=== PATIENT | male | born 1940 | race Caucasian/White ===

== ENCOUNTER 2024-01-16 08:49 | Inpatient (IN) | payer MEDICARE, OTHER, SELFPAY ==
[2024-01-16] VITALS (37 sets, daily range): BP systolic 101–145; BP diastolic 34–74; PULSE 72–104; RESP 12–35; TEMP 36–37; O2SAT 80–96
--- NOTE | 2024-01-16 08:30 | RT.EKG_ITS ---
APPROVED REPORT Exam: Resting ECG Reason for Exam: sob Patient Location: E HR:107 bpm ECG Measurements Heart Rate 107 AXIS MO 120 P 73 QRSd 92 QRS -86 QT 355 T 61 QTc 475 Conclusion Sinus tachycardia, rate 107 PACs/PVCs Slightly peaked T-waves V3-V5 No STEMI
--- NOTE | 2024-01-16 08:45 | DI.RAD_ITS ---
Exam(s) XR PORTABLE CHEST AP EXAM: XR PORTABLE CHEST AP CLINICAL HISTORY: SOB. TECHNIQUE: 2D digital imaging was performed. COMPARISON: No exams were available for comparison FINDINGS: Single AP portable view. There chest leads in place Heart size is normal. The mediastinum is not widened Are increased interstitial markings throughout both lung russell, more so on the right side. There is also blunting of the right costophrenic angle indicating pleural fluid or pleural thickening in the right lung base. IMPRESSION: Bilateral interstitial infiltrates more prominent on the right side involving all lobes. Small right pleural effusion also noted. DATA REPOSITORY: RADIATION DOSE DELIVERED:
[2024-01-16 09:12] LABS: BE (Venous) 13 mmol/L (-2-3); HCO3 (Venous) 38 mmol/L (23-28); O2 Sat (Venous) 35 %; TCO2 (Venous) 34 mmol/L (24-29); pCO2 (Venous) 60 mmHg (41-51); pH (Venous) 7.41 (7.31-7.41); pO2 (Venous) 22 mmHg
[2024-01-16 09:14] LABS: Lactate 2.1 mmol/L (0.6-1.4)
[2024-01-16 09:16] LABS: Abs Immature Grans 0.22 10^3/uL (0.0-0.06); Absolute Basophil Count 0.08 10^3/uL (0.0-0.2); Absolute Neutrophil Count 23.02 10^3/uL (1.2-6.7); Basophils % 0.3 %; Eosinophils % 1.8 %; HCT 45.1 % (40.0-50.0); HGB 14.7 g/dL (13.5-17.5); Immature Grans % 0.9 %; Lymphocytes % 3.1 %; MCHC 32.6 % (32.0-36.0); MCV 98 fL (80-95); MPV 10.3 fL (8.0-11.0); Monocytes % 4.8 %; Neutrophils % 89.1 %; Platelet Count 190 10^3/uL (130-400); RBC 4.59 10^6/uL (4.36-5.78); RDW 14.2 % (11.8-14.1); RDW-SD 51.7 fL
[2024-01-16] MEDS: Ketorolac 15 MG/ML VIAL IVP (09:18)
[2024-01-16 09:20] LABS: Absolute Eosinophil Count 0.47 10^3/uL (0.0-0.7); Absolute Monocyte Count 1.24 10^3/uL (0.1-0.8)
[2024-01-16 09:21] LABS: WBC 25.84 10^3/uL (4.4-10.8)
[2024-01-16] MEDS: CEFEPIME 2 GM in Normal Saline 100 ML IVPB ×2 (09:32→19:16)
[2024-01-16 09:34] LABS: ALT 16 U/L (16-63); AST 24 U/L (15-37); Albumin 2.9 g/dL (3.4-5.0); Alkaline Phosphatase 64 U/L (46-116); BUN 21 mg/dL (7-18); Bilirubin, Total 1.56 mg/dL (0.2-1.0); CREATININE 1.1 mg/dL (0.70-1.30); Calcium 9.4 mg/dL (8.5-10.1); Chloride 102 mmol/L (98-107); Estimated GFR 65.79 (mL/min/1.73m2); Glucose 124 mg/dL (74-106); Lipase 14 U/L (16-77); Magnesium 1.9 mg/dL (1.8-2.4); Potassium 4.7 mmol/L (3.5-5.1); Sodium 141 mmol/L (136-145); Total Protein 6.8 g/dL (6.4-8.2)
[2024-01-16 09:35] LABS: Diff Comment Diff Reviewed; RBC Morphology Normal
[2024-01-16] MEDS: VANCOMYCIN/WATER (PEG) 1.25 GM/250 ML BAG IVPB (09:35)
[2024-01-16 09:41] LABS: NT-proBNP 527 pg/mL (<300); Troponin I 57 ng/L (<or=76)
--- NOTE | 2024-01-16 09:41 | W.ED.GENAD ---
Discharge Plan Disposition Patient Disposition: Admit to [facility] Condition: Stable Discharge Details Chief Complaint: SOB Clinical Impression: Acute hypoxic respiratory failure, Sepsis, Bilateral pneumonia ED Provider: Ritesh Jacobsen Home Meds and New Rx's Prescriptions: No Action amlodipine .ROUTE metoprolol tartrate .ROUTE aspirin [Adult Low Dose Aspirin] 81 mg tablet,delayed release (DR/EC) 81 mg PO DAILY docusate sodium [Col-Rite] 100 mg capsule 100 mg PO DAILY Anoro Ellipta 62.5-25 mcg/actuation blister with device 1 inh inhalation DAILY albuterol sulfate 90 mcg/actuation HFA aerosol inhaler 2 inh inhalation Q6H PRN HPI General Date/Time Provider Initiated Documentation: 01/16/24 08:55. HPI Narrative: 83 year-old male presents to ED today by EMS with a chief complaint of shortness of breath, worse than usual in the setting of chronic COPD, dysuria and urinary frequency, and cough with fatigue with onset over the past few days, - worse last night. Quality described as generalized fatigue, dysuria, no radiation to productive cough, chest pain, palpitations, syncope, endorses shortness of breath getting around his home. Severity is described as moderate to severe. Palliating factors include nothing specific attempted. Provoking factors include nothing specific. Events leading up to the incident/Associated Symptoms: Patient was discharged from [facility] on 01/01 for COPD exacerbation. Patient not anticoagulated. Related Data Home Medications ?Medication ?Instructions ?Recorded ?Confirmed albuterol sulfate 90 mcg/actuation 2 inh inhalation Q6H PRN 01/16/24 01/16/24 aerosol inhaler amlodipine .ROUTE 01/16/24 aspirin 81 mg tablet,delayed 81 mg PO DAILY 01/16/24 01/16/24 release (Adult Low Dose Aspirin) docusate sodium 100 mg capsule 100 mg PO DAILY 01/16/24 01/16/24 (Col-Rite) metoprolol tartrate .ROUTE 01/16/24 umeclidinium 62.5 mcg-vilanterol 1 inh inhalation DAILY 01/16/24 01/16/24 25 mcg/actuation powdr for inhalation (Anoro Ellipta) Allergies Allergy/AdvReac Type Severity Reaction Status Date / Time No Known Allergies Allergy Unverified 01/16/24 08:59 General Stated Complaint: SOB TOMMY: 2 Review of Systems All systems reviewed & are unremarkable except as noted in HPI and below Exam Narrative Exam Narrative: GENERAL APPEARANCE: Frail, toxic, awake and alert, atraumatic, no acute distress. SKIN: Warm, pale, dry, intact, without rashes/lesions/ulcerations. HEAD: Normocephalic, atraumatic, normal hair distribution for gender/age. EYES: Normal conjunctiva, no exudates on lids/lashes. ENT: Nares patent, no circumoral cyanosis, no facial swelling NECK: Supple, trachea midline, painless cervical ROM. LUNGS/CHEST: Lungs - poor air movement, diminished bases, rhonchorous, labored respirations, normal A/P diameter, symmetrical expansion, no chest wall deformity HEART (CV/PV): Regular rate and rhythm without murmur, no peripheral edema, no JVD. ABDOMEN: Soft, non-distended, no guarding, no suprapubic distention, no CVA tenderness bilaterally. MSK: Normal ROM, no swelling/deformity to bilateral UEs or LEs, moving all extremities without weakness, no cyanosis, spine midline without tenderness, normal curvature. NEURO: Mental Status AAOx4 - alert to person, place, time, events No facial droop, no forehead involvement. Motor: No focal weakness - strength 5/5 in bilateral UEs and LEs, proximal and distal, symmetric. Sensory: sensation intact to light touch globally. Gait NT. PSYCH: euthymic, cooperative, pleasant, appropriate speech Course Vital Signs Vital signs: Vital Signs Temperature 36.8 C 01/16/24 08:54 Pulse 102 H 01/16/24 08:54 Respiratory Rate 20 01/16/24 08:54 Blood Pressure 130/68 01/16/24 08:54 Pulse Oximetry 80 L 01/16/24 08:54 Temperature 36.8 C 01/16/24 08:54 Temperature Source Oral 01/16/24 08:54 Pulse 86 01/16/24 09:16 Pulse 97 H 01/16/24 09:20 Respiratory Rate 26 H 01/16/24 09:20 Respiratory Effort Short of Breath, Incrsd Work of Breathing 01/16/24 09:13 Respiratory Depth Shallow 01/16/24 09:13 Respiratory Pattern Tachypnea 01/16/24 09:13 Blood Pressure 101/48 L 01/16/24 09:16 Blood Pressure Mean 68 10/08/24 09:16 Blood Pressure Position Sitting 01/16/24 08:54 Pulse Oximetry 90 L 01/16/24 09:20 Oxygen Delivery Method OxyMask 01/16/24 09:14 Oxygen Flow Rate 3 01/16/24 09:14 Pain Level 0 01/16/24 08:54 Lab/Test Results Lab/Test Results: 01/16/24 09:30 Blood Blood Culture - Pending 01/16/24 09:05 Blood Blood Culture - Pending Laboratory Tests Range/Units 01/16/24 09:05 WBC (4.4-10.8) 10^3/uL 25.84 H* RBC (4.36-5.78) 10^6/uL 4.59 Hgb (13.5-17.5) g/dL 14.7 Hct (40.0-50.0) % 45.1 MCV (80-95) fL 98 H MCH (27.0-33.0) pg 32.0 MCHC (32.0-36.0) % 32.6 RDW (11.8-14.1) % 14.2 H Plt Count (130-400) 10^3/uL 190 MPV (8.0-11.0) fL 10.3 Immature Gran % % 0.9 Neutrophils % % 89.1 Lymphocytes % % 3.1 Monocytes % % 4.8 Eosinophils % % 1.8 Basophils % % 0.3 Nucleated RBC % (0.0-0.3) % 0.0 Absolute Neutrophils (1.2-6.7) 10^3/uL 23.02 H Absolute Lymphocytes (1.2-3.4) 10^3/uL 0.80 L Absolute Monocytes (0.1-0.8) 10^3/uL 1.24 H Absolute Eosinophils (0.0-0.7) 10^3/uL 0.47 Absolute Basophils (0.0-0.2) 10^3/uL 0.08 RBC Morphology Normal VBG pH (7.31-7.41) 7.41 VBG pCO2 (41-51) mmHg 60 H VBG pO2 mmHg 22 VBG HCO3 (23-28) mmol/L 38 H VBG Total CO2 (24-29) mmol/L 34 H VBG O2 Saturation % 35 VBG Base Excess (-2-3) mmol/L 13 H VBG Lactate (0.6-1.4) mmol/L 2.1 H Sodium (136-145) mmol/L 141 Potassium (3.5-5.1) mmol/L 4.7 Chloride (98-107) mmol/L 102 Carbon Dioxide (21.0-32.0) mmol/L 36.0 H Anion Gap (3-11) mmol/L 3.0 BUN (7-18) mg/dL 21 H Creatinine (0.70-1.30) mg/dL 1.1 Est GFR (CKD-EPI 2020) (mL/min/1.73m2) 65.79 Glucose (74-106) mg/dL 124 H Calcium (8.5-10.1) mg/dL 9.4 Magnesium (1.8-2.4) mg/dL 1.9 Total Bilirubin (0.2-1.0) mg/dL 1.56 H AST (15-37) U/L 24 ALT (16-63) U/L 16 Alkaline Phosphatase (46-116) U/L 64 Total Protein (6.4-8.2) g/dL 6.8 Albumin (3.4-5.0) g/dL 2.9 L Lipase (16-77) U/L 14 L Medical Decision Making This dictation utilizes [id number] dictation software and may contain unedited grammatical errors. 83 year-old male presents to ED today by EMS with a chief complaint of shortness of breath, worse than usual in the setting of chronic COPD, dysuria and urinary frequency, and cough with fatigue with onset over the past few days, - worse last night. Quality described as generalized fatigue, dysuria, no radiation to productive cough, chest pain, palpitations, syncope, endorses shortness of breath getting around his home. Severity is described as moderate to severe. Palliating factors include nothing specific attempted. Provoking factors include nothing specific. Events leading up to the incident/Associated Symptoms: Patient was discharged from [facility] on 01/01 for COPD exacerbation. Patients' medical history: COPD, history of hernia repair, hypertension, GERD, history of NSTEMI in 2017, hyperlipidemia, intermittent oxygen use at home at 2.5 L. Family and social history: Patient is a , lives alone. Pertinent exam findings / vital signs include poor air movement, diminished bases, no overt expiratory wheezing, rhonchorous at bases, benign cardiac exam, benign abdomen without suprapubic distention, no CVA tenderness to percussion bilaterally, mildly tachycardic on arrival, febrile, mildly hypoxic transition to OxyMask. Differential / pathologies of concern include COPD exacerbation, pneumonia, sepsis, UTI, acute on chronic respiratory failure. Diagnostic studies of: -CBC, CMP, lactate, procalcitonin, blood cultures, VBG, lipase, magnesium, serial troponins, BNP, D-dimer, COVID/flu/RSV PCR, urinalysis, XR chest portable. -CBC shows a white count of 25 with left shift -D-dimer age-adjusted negative -VBG shows elevated pCO2 at 60 -Lactate 2.1, procalcitonin 0.6-suspect early sepsis -CMP shows mildly elevated BUN, elevated carbon dioxide, mildly elevated bilirubin -Troponin negative, BNP mildly elevated at 527 without history of CHF -Lipase within normal limits -Magnesium 1.9 -COVID/flu/RSV PCR negative -Chest x-ray shows bilateral pneumonia -UA pending at time of admission Interventions of: -125mg IV solumedrol given by EMS en route, has received 1L IVF NS, 2gm IV cefepime, 1250mg IV vancomycin, 1gm Magnesium over 30 mins for SOB, 9mL Duoneb ED Course/Assessment/Plan: 83-year-old male presents by EMS with increased shortness of breath and increased urinary frequency with dysuria and burning sensation, has recent admitted at [facility] discharged January 01 for bilateral pneumonia in setting of COPD exacerbation, patient has increased oxygen requirement today requiring oxime mask beyond his 2.5 L nasal cannula baseline. He has chest x-ray of bilateral pneumonia, and early elevation of markers of sepsis including white blood cell count of 25 with left shift. At 1100 and I consulted with hospitalist Dr. Peace who accepted for admission for acute hypoxic respiratory failure, sepsis, bilateral pneumonia, patient has been stable throughout visit, has received IV antibiotics and is currently receiving 1 g magnesium over 30 minutes and an hour-long DuoNeb at time of admission. Disposition of Acute Hypoxic Respiratory Failure, Sepsis, Bilateral Pneumonia. Patient verbalized understanding of the plan and return to ED criteria and engaged in shared decision making. Medical Records Medical records reviewed: Yes I reviewed the patient's medical records. Imaging Data Radiologic Study: Attestation: I personally reviewed and interpreted this imaging study as follows: Imaging: X-Ray Radiologist's impression: EXAM: XR PORTABLE CHEST AP CLINICAL HISTORY: SOB. TECHNIQUE: 2D digital imaging was performed. COMPARISON: No exams were available for comparison FINDINGS: Single AP portable view. There chest leads in place Heart size is normal. The mediastinum is not widened Are increased interstitial markings throughout both lung russell, more so on the right side. There is also blunting of the right costophrenic angle indicating pleural fluid or pleural thickening in the right lung base. IMPRESSION: Bilateral interstitial infiltrates more prominent on the right side involving all lobes. Small right pleural effusion also noted. Lab Data Lab results reviewed: Yes I reviewed the patient's lab results. Labs: 01/16/24 09:30 Blood Blood Culture - Pending 01/16/24 09:05 Blood Blood Culture - Pending Laboratory Tests Range/Units 01/16/24 01/16/24 09:00 09:05 WBC (4.4-10.8) 10^3/uL 25.84 H* RBC (4.36-5.78) 10^6/uL 4.59 Hgb (13.5-17.5) g/dL 14.7 Hct (40.0-50.0) % 45.1 MCV (80-95) fL 98 H MCH (27.0-33.0) pg 32.0 MCHC (32.0-36.0) % 32.6 RDW (11.8-14.1) % 14.2 H Plt Count (130-400) 10^3/uL 190 MPV (8.0-11.0) fL 10.3 Immature Gran % % 0.9 Neutrophils % % 89.1 Lymphocytes % % 3.1 Monocytes % % 4.8 Eosinophils % % 1.8 Basophils % % 0.3 Nucleated RBC % (0.0-0.3) % 0.0 Absolute Neutrophils (1.2-6.7) 10^3/uL 23.02 H Absolute Lymphocytes (1.2-3.4) 10^3/uL 0.80 L Absolute Monocytes (0.1-0.8) 10^3/uL 1.24 H Absolute Eosinophils (0.0-0.7) 10^3/uL 0.47 Absolute Basophils (0.0-0.2) 10^3/uL 0.08 RBC Morphology Normal D-Dimer (<500) ng/mlFEU 599 H VBG pH (7.31-7.41) 7.41 VBG pCO2 (41-51) mmHg 60 H VBG pO2 mmHg 22 VBG HCO3 (23-28) mmol/L 38 H VBG Total CO2 (24-29) mmol/L 34 H VBG O2 Saturation % 35 VBG Base Excess (-2-3) mmol/L 13 H VBG Lactate (0.6-1.4) mmol/L 2.1 H Sodium (136-145) mmol/L 141 Potassium (3.5-5.1) mmol/L 4.7 Chloride (98-107) mmol/L 102 Carbon Dioxide (21.0-32.0) mmol/L 36.0 H Anion Gap (3-11) mmol/L 3.0 BUN (7-18) mg/dL 21 H Creatinine (0.70-1.30) mg/dL 1.1 Est GFR (CKD-EPI 2020) (mL/min/1.73m2) 65.79 Glucose (74-106) mg/dL 124 H Calcium (8.5-10.1) mg/dL 9.4 Magnesium (1.8-2.4) mg/dL 1.9 Total Bilirubin (0.2-1.0) mg/dL 1.56 H AST (15-37) U/L 24 ALT (16-63) U/L 16 Alkaline Phosphatase (46-116) U/L 64 Troponin I (<or=76) ng/L 57 NT-Pro-B Natriuret Pep (<300) pg/mL 527 H Total Protein (6.4-8.2) g/dL 6.8 Albumin (3.4-5.0) g/dL 2.9 L Lipase (16-77) U/L 14 L Procalcitonin ng/mL 0.6 COVID-19 Source Nasopharynx SARS-CoV-2 (PCR) (Negative) Negative Influenza Type A (PCR) (Negative) Negative Influenza Type B (PCR) (Negative) Negative RSV (PCR) (Negative) Negative Quality:SDOH Health Related Social Needs: No Data to Display PFSH All Active Problems (Updated 01/16/24 @ 11:10 by DARYN Massey) Bilateral pneumonia (Acute) Sepsis (Acute) Acute hypoxic respiratory failure (Acute) Social History Smoking/Tobacco Use Status: Former Tobacco Use Smoking risk assessment performed?: Yes Alcohol Intake: never Drug use: Never Substance use type: does not use Housing: house Do you feel safe at home: Yes Do you feel safe in your relationship?: Yes
[2024-01-16 09:50] LABS: D-Dimer 599 ng/mlFEU (<500)
[2024-01-16 09:53] LABS: Procalcitonin 0.6 ng/mL
[2024-01-16 09:56] LABS: COVID-19 PCR Negative (Negative); Influenza A PCR Negative (Negative); Influenza B PCR Negative (Negative); RSV PCR Negative (Negative)
[2024-01-16 10:00] LABS: Source Nasopharynx
[2024-01-16 10:56] LABS: Troponin I 55 ng/L (<or=76)
--- NOTE | 2024-01-16 11:08 | W.PM.HP.N ---
Date of service: 01/16/24 Time of Service: 11:08 Assessment and Plan Assessment and plan (1) Severe sepsis: Status: Acute Assessment and plan: - On admission patient meets criteria for severe sepsis with a heart rate of 102, respiratory rate in the mid 20s, white blood cell count of 25, source of infection presumed to be bilateral multifocal pneumonia with possible UTI (urinalysis pending), and a lactic acid of 2.1 -Patient was given vancomycin and cefepime in the emergency department, will continue -Will administer 1 L of normal saline and will follow-up 4-hour lactic acid -Follow-up a.m. CBC and blood cultures (2) Bilateral pneumonia: Status: Acute Assessment and plan: - Primary source of infection as noted above (3) Acute on chronic respiratory failure with hypoxemia: Status: Acute Assessment and plan: - Patient reportedly uses oxygen at home intermittently -Currently requiring 4 L nasal cannula -Wean as tolerated with goal oxygen saturation 88 to 92% given patient's history of COPD (4) COPD without exacerbation: Status: Acute Assessment and plan: - Without acute exacerbation as patient is not wheezing at this time -Worsening oxygen requirement likely secondary to pneumonia as noted above -Will continue home inhaler regimen (5) HTN (hypertension): Status: Chronic Assessment and plan: - Continue home amlodipine History of Present Illness History of Present Illness Chief Complaint: shortness of breath Narrative: 83-year-old male with past medical history of COPD who was recently hospitalized at [facility] and discharged on 01/02/2024 presents the emergency department with complaints of shortness of breath. Patient states that shortness of breath began to recur again last associated with dysuria, urinary frequency and fatigue over the last few days. States that he is intermittently on oxygen normally at about 2 L. He denies any headache, lightheadedness, dizziness, chest pain, sputum production, nausea vomiting or diarrhea. In the emergency department the patient was noted as being hypoxic requiring up to 4 L nasal cannula, tachycardic with heart rate of 102, respiratory rate of 25, blood pressure of 127/42 and afebrile. CBC showed a white count of 25.8 with remainder of CBC and CMP unremarkable, however the patient did have a lactic of 2.1. Chest x-ray was done and showed bilateral interstitial infiltrates more prominent on the right involving all lobes with a small pleural effusion on the right. While patient did complain of dysuria, UA was ordered but has not yet been obtained. While in the emergency department the patient was started on vancomycin and cefepime in the emergency room PA paged hospitalist for admission for patient with severe sepsis secondary to community-acquired pneumonia. Review of Systems All systems reviewed & are unremarkable except as noted in HPI and below PFSH All Active Problems (Updated 01/16/24 @ 11:12 by Landry Peace MD) HTN (hypertension) (Chronic) COPD without exacerbation (Acute) Acute on chronic respiratory failure with hypoxemia (Acute) Severe sepsis (Acute) Bilateral pneumonia (Acute) Sepsis (Acute) Acute hypoxic respiratory failure (Acute) Social History Smoking/Tobacco Use Status: Former Tobacco Use Smoking risk assessment performed?: Yes Alcohol Intake: never Drug use: Never Substance use type: does not use Housing: house Do you feel safe at home: Yes Do you feel safe in your relationship?: Yes Meds Allergies and Home Medications Allergies Allergy/AdvReac Type Severity Reaction Status Date / Time No Known Allergies Allergy Unverified 01/16/24 08:59 Home Medications ?Medication ?Instructions ?Recorded ?Confirmed ?Type albuterol sulfate 90 mcg/actuation 2 inh inhalation Q6H PRN 01/16/24 01/16/24 History aerosol inhaler amlodipine .ROUTE 01/16/24 History aspirin 81 mg tablet,delayed 81 mg PO DAILY 01/16/24 01/16/24 History release (Adult Low Dose Aspirin) docusate sodium 100 mg capsule 100 mg PO DAILY 01/16/24 01/16/24 History (Col-Rite) metoprolol tartrate .ROUTE 01/16/24 History umeclidinium 62.5 mcg-vilanterol 1 inh inhalation DAILY 01/16/24 01/16/24 History 25 mcg/actuation powdr for inhalation (Anoro Ellipta) Exam Narrative Exam Narrative: well appearing older gentleman laying in bed in no acute distress, AOx4, 3L oxymask in place, heart RRR, lungs with diminished breath sounds in RLL, otherwise without wheezing, abdomen soft, non-tender, non-distended Results Labs 01/16/24 09:05 01/16/24 09:05 Labs: Laboratory Results - last 24 hr 01/16/24 01/16/24 01/16/24 09:00 09:05 10:25 WBC 25.84 H* RBC 4.59 Hgb 14.7 Hct 45.1 MCV 98 H MCH 32.0 MCHC 32.6 RDW 14.2 H Plt Count 190 MPV 10.3 Immature Gran % 0.9 Neutrophils % 89.1 Lymphocytes % 3.1 Monocytes % 4.8 Eosinophils % 1.8 Basophils % 0.3 Nucleated RBC % 0.0 Absolute Neutrophils 23.02 H Absolute Lymphocytes 0.80 L Absolute Monocytes 1.24 H Absolute Eosinophils 0.47 Absolute Basophils 0.08 RBC Morphology Normal D-Dimer 599 H VBG pH 7.41 VBG pCO2 60 H VBG pO2 22 VBG HCO3 38 H VBG Total CO2 34 H VBG O2 Saturation 35 VBG Base Excess 13 H VBG Lactate 2.1 H Sodium 141 Potassium 4.7 Chloride 102 Carbon Dioxide 36.0 H Anion Gap 3.0 BUN 21 H Creatinine 1.1 Est GFR (CKD-EPI 2020) 65.79 Glucose 124 H Calcium 9.4 Magnesium 1.9 Total Bilirubin 1.56 H AST 24 ALT 16 Alkaline Phosphatase 64 Troponin I 57 55 NT-Pro-B Natriuret Pep 527 H Total Protein 6.8 Albumin 2.9 L Lipase 14 L Procalcitonin 0.6 COVID-19 Source Nasopharynx SARS-CoV-2 (PCR) Negative Influenza Type A (PCR) Negative Influenza Type B (PCR) Negative RSV (PCR) Negative Last Vital Signs Temp 98.2 F 01/16/24 08:54 Pulse 81 01/16/24 09:39 Resp 25 H 01/16/24 09:40 BP 127/42 L 01/16/24 09:39 Pulse Ox 91 L 01/16/24 09:40 Time Spent Time spent with Patient: >75 minutes Time was spent: preparing to see the patient(eg.review tests), obtaining and/or reviewing separately otained hiistory, ordering medications,tests, procedures, referring, communicating with other health caregivers homecare, indepentently interpreting results, counseling the patient and care coordination
[2024-01-16] MEDS: MAGNESIUM SULFATE 1 GM/100 ML BAG IV_INF (12:18)
--- NOTE | 2024-01-16 13:10 | NUR.NOTE ---
Discharge summary and EKG's received from [facility] faxed to Med/Surg and sent to Medical Records to be scanned into patient chart. Nursing Note:
--- NOTE | 2024-01-16 13:15 | W.PC.ACHO ---
Registration Status: Primary Language: Preferred Language: ED Information & Data Chief Complaint SOB 01/16/24 09:41 Other Complaint Fever 01/16/24 08:54 Triage Note recent admission @ weeks 01/16/24 08:54 hospital for SOB. fever last night, increased sob w/ exertion. Urinary sx. Wears 2L/NC @ baseline Most Recent Vital Signs Temperature 37 C 01/16/24 12:07 Temperature Source Skin 01/16/24 12:00 Pulse 86 01/16/24 12:07 Pulse Rhythm Regular 01/16/24 12:07 Pulse 73 01/16/24 11:40 Respiratory Rate 17 01/16/24 12:07 Respiratory Effort Non-Labored 01/16/24 12:07 Respiratory Depth Normal 01/16/24 12:07 Respiratory Pattern Normal 01/16/24 12:07 Blood Pressure 145/70 H 01/16/24 12:07 Blood Pressure Mean 81 01/16/24 11:31 Blood Pressure Position Sitting 01/16/24 08:54 Pulse Oximetry 89 L 01/16/24 12:07 Oxygen Delivery Method OxyMask 01/16/24 12:07 Oxygen Flow Rate 3 01/16/24 12:07 Pain Level 0 01/16/24 12:07 Allergies No Known Allergies Allergy (Unverified 01/16/24 08:59) Precautions Isolation PUI 01/16/24 09:09 IV IV Catheter Type [Left Saline Lock Antecubital] IV Catheter Gauge [Left 18 Antecubital] Diet Orders Category Date Time Status Regular/Normal [DIET] Nutrition 01/16/24 Lunch Active Diagnostics 01/16/24 01/16/24 01/16/24 Range/Units 11:59 10:25 09:05 WBC 25.84 H* (4.4-10.8) 10^3/uL RBC 4.59 (4.36-5.78) 10^6/uL Hgb 14.7 (13.5-17.5) g/dL Hct 45.1 (40.0-50.0) % MCV 98 H (80-95) fL MCH 32.0 (27.0-33.0) pg MCHC 32.6 (32.0-36.0) % RDW 14.2 H (11.8-14.1) % Plt Count 190 (130-400) 10^3/uL MPV 10.3 (8.0-11.0) fL Immature Gran % 0.9 % Neutrophils % 89.1 % Lymphocytes % 3.1 % Monocytes % 4.8 % Eosinophils % 1.8 % Basophils % 0.3 % Nucleated RBC % 0.0 (0.0-0.3) % Absolute Neutrophils 23.02 H (1.2-6.7) 10^3/uL Absolute Lymphocytes 0.80 L (1.2-3.4) 10^3/uL Absolute Monocytes 1.24 H (0.1-0.8) 10^3/uL Absolute Eosinophils 0.47 (0.0-0.7) 10^3/uL Absolute Basophils 0.08 (0.0-0.2) 10^3/uL RBC Morphology Normal D-Dimer 599 H (<500) ng/mlFEU VBG pH 7.41 (7.31-7.41) VBG pCO2 60 H (41-51) mmHg VBG pO2 22 mmHg VBG HCO3 38 H (23-28) mmol/L VBG Total CO2 34 H (24-29) mmol/L VBG O2 Saturation 35 % VBG Base Excess 13 H (-2-3) mmol/L VBG Lactate 2.1 H (0.6-1.4) mmol/L Sodium 141 (136-145) mmol/L Potassium 4.7 (3.5-5.1) mmol/L Chloride 102 (98-107) mmol/L Carbon Dioxide 36.0 H (21.0-32.0) mmol/L Anion Gap 3.0 (3-11) mmol/L BUN 21 H (7-18) mg/dL Creatinine 1.1 (0.70-1.30) mg/dL Est GFR (CKD-EPI 2020) 65.79 (mL/min/1.73m2) Glucose 124 H (74-106) mg/dL Calcium 9.4 (8.5-10.1) mg/dL Magnesium 1.9 (1.8-2.4) mg/dL Total Bilirubin 1.56 H (0.2-1.0) mg/dL AST 24 (15-37) U/L ALT 16 (16-63) U/L Alkaline Phosphatase 64 (46-116) U/L Troponin I Pending 55 57 (<or=76) ng/L NT-Pro-B Natriuret Pep 527 H (<300) pg/mL Total Protein 6.8 (6.4-8.2) g/dL Albumin 2.9 L (3.4-5.0) g/dL Lipase 14 L (16-77) U/L Procalcitonin 0.6 ng/mL COVID-19 Source SARS-CoV-2 (PCR) (Negative) Influenza Type A (PCR) (Negative) Influenza Type B (PCR) (Negative) RSV (PCR) (Negative) 01/16/24 Range/Units 09:00 WBC (4.4-10.8) 10^3/uL RBC (4.36-5.78) 10^6/uL Hgb (13.5-17.5) g/dL Hct (40.0-50.0) % MCV (80-95) fL MCH (27.0-33.0) pg MCHC (32.0-36.0) % RDW (11.8-14.1) % Plt Count (130-400) 10^3/uL MPV (8.0-11.0) fL Immature Gran % % Neutrophils % % Lymphocytes % % Monocytes % % Eosinophils % % Basophils % % Nucleated RBC % (0.0-0.3) % Absolute Neutrophils (1.2-6.7) 10^3/uL Absolute Lymphocytes (1.2-3.4) 10^3/uL Absolute Monocytes (0.1-0.8) 10^3/uL Absolute Eosinophils (0.0-0.7) 10^3/uL Absolute Basophils (0.0-0.2) 10^3/uL RBC Morphology D-Dimer (<500) ng/mlFEU VBG pH (7.31-7.41) VBG pCO2 (41-51) mmHg VBG pO2 mmHg VBG HCO3 (23-28) mmol/L VBG Total CO2 (24-29) mmol/L VBG O2 Saturation % VBG Base Excess (-2-3) mmol/L VBG Lactate (0.6-1.4) mmol/L Sodium (136-145) mmol/L Potassium (3.5-5.1) mmol/L Chloride (98-107) mmol/L Carbon Dioxide (21.0-32.0) mmol/L Anion Gap (3-11) mmol/L BUN (7-18) mg/dL Creatinine (0.70-1.30) mg/dL Est GFR (CKD-EPI 2020) (mL/min/1.73m2) Glucose (74-106) mg/dL Calcium (8.5-10.1) mg/dL Magnesium (1.8-2.4) mg/dL Total Bilirubin (0.2-1.0) mg/dL AST (15-37) U/L ALT (16-63) U/L Alkaline Phosphatase (46-116) U/L Troponin I (<or=76) ng/L NT-Pro-B Natriuret Pep (<300) pg/mL Total Protein (6.4-8.2) g/dL Albumin (3.4-5.0) g/dL Lipase (16-77) U/L Procalcitonin ng/mL COVID-19 Source Nasopharynx SARS-CoV-2 (PCR) Negative (Negative) Influenza Type A (PCR) Negative (Negative) Influenza Type B (PCR) Negative (Negative) RSV (PCR) Negative (Negative) 01/16/24 09:30 Blood Culture - Pending Blood 01/16/24 09:05 Blood Culture - Pending Blood Intake and Output - 24 Hour Total 01/16/24 08:42 thru 01/16/24 11:32 Intake Total 425 Balance 425 Weight 58 kg Intake: IV 425 Falls Risk Assessment History of Falls No History 01/16/24 12:07 Contributing Factors Impairments 01/16/24 12:07 Ambulatory Aids Independent 01/16/24 12:07 Tubes/Lines W/no contributing factors 01/16/24 12:07 Gait Evaluation W/any additional score 01/16/24 12:07 Cognition No cognitive impairment 01/16/24 09:09 Fall Total Score 33 01/16/24 12:07 Level of Risk Moderate Risk 01/16/24 12:07 Problems HTN (hypertension) (Chronic) COPD without exacerbation (Acute) Acute on chronic respiratory failure with hypoxemia (Acute) Severe sepsis (Acute) Bilateral pneumonia (Acute) Notes 01/16/24 13:10 Nursing Notes by Nicole Pascual Discharge summary and EKG's received from [facility] faxed to Med/Surg and sent to Medical Records to be scanned into patient chart. Nursing Note: Initialized on 01/16/24 13:10 - END OF NOTE v v v v v v v v v Sending and/or Receiving Nurses: Please use comment section below to note any information pertinent to the patient hand-off not included above. Information / Comments: pt arrives via stretcher to rm [id number] Report received from: Kacie Lemos RN
[2024-01-16 14:29] LABS: Troponin I 43 ng/L (<or=76)
[2024-01-16] MEDS: Normal Saline Flush 10 ML SYR IVP (19:15)
[2024-01-16 19:19] LABS: Bilirubin Negative (Negative); Blood Negative (Negative); Clarity Clear (Clear); Glucose Negative (Negative); Ketones 15 mg/dL (Negative); Leukocyte Esterase Negative (Negative); Nitrite Negative (Negative); Specific Gravity 1.025 (1.005-1.025); Urobilinogen 0.2 mg/dL (Up to 0.2); pH 5.5 (5-8)
[2024-01-17] VITALS (8 sets, daily range): BP systolic 105–139; BP diastolic 60–72; PULSE 86–103; RESP 14–20; TEMP 36.2–37; O2SAT 88–91
[2024-01-17 06:21] LABS: HCT 39.2 % (40.0-50.0); HGB 13.3 g/dL (13.5-17.5); MCH 32.1 pg (27.0-33.0); MCHC 33.9 % (32.0-36.0); MCV 95 fL (80-95); MPV 10.9 fL (8.0-11.0); Platelet Count 178 10^3/uL (130-400); RBC 4.14 10^6/uL (4.36-5.78); RDW 14.1 % (11.8-14.1); WBC 15.73 10^3/uL (4.4-10.8)
[2024-01-17 06:36] LABS: Anion Gap 6.2 mmol/L (3-11); BUN 29 mg/dL (7-18); CO2 33.8 mmol/L (21.0-32.0); Calcium 8.9 mg/dL (8.5-10.1); Chloride 103 mmol/L (98-107); Estimated GFR 73.76 (mL/min/1.73m2); Glucose 143 mg/dL (74-106); Magnesium 2.3 mg/dL (1.8-2.4); Potassium 4.2 mmol/L (3.5-5.1); Sodium 143 mmol/L (136-145)
[2024-01-17 06:40] LABS: Vancomycin, Random 7.1 ug/mL
[2024-01-17] MEDS: CEFEPIME 2 GM in Normal Saline 100 ML IVPB ×2 (08:41→19:48)
[2024-01-17] MEDS: Aspirin E.C. 81 MG TABEC PO (08:41)
[2024-01-17] MEDS: Enoxaparin 40 MG/0.4 ML SYR SC (08:41)
[2024-01-17] MEDS: Normal Saline Flush 10 ML SYR IVP ×4 (08:46→20:42)
[2024-01-17] MEDS: Tiotropium/Olodaterol 10 PUFF INHALER 2 PUFF IH (08:57)
--- NOTE | 2024-01-17 09:10 | INITIAL_ITS ---
Date of service: 01/17/24 Time of Service: 09:10 Care Management Initial Assmt Initial Assessment Reason for Hospitalization: Bleeding Duodenal Ulcer Functional Status/Living Situation Patient Presentation: Bi was ambulating in his room when CM met with him. He had just finished talking with the Surgeon and has no concerns or further questions at this time. CM provided pt with a brochure for [facility] since he may be interested in MOW in the near future. CM provided patient with a crossword puzzle book. Town of Residence: [place] Resides with: Spouse (Significant other Cinda Rangel) Significant Other/Family: Local Natural Supports: Daughter and 2 sons live in [place] Employment Status: Retired (worked at a [employer]) Instrumental Activities of Daily Living (ADLs): Independent Medications Medication Management: No Issues/Barriers identified Physical Functioning/Mobility Assistive Device: Has a cane and walker at home, does not use very often Home O2 through [facility] services Advance Directives Advance Directives: Do you have an Advance Directive: AD On File at [facility]: N 01/16/24 11:51 Date Asked 01/16/24 01/16/24 11:51 AD Date Reviewed COLST On File at [facility] COLST Date Scanned Code Status Resuscitation Status Full Code Portal Pt does not currently have a portal and education provided: Yes Insurance Coverage/Financial Issues Insurance: [employer] Health Plans of [place] Medicare Part A & B [facility] Supplemental Financial Issues: None identified Care Team Visit Care Team Role Provider Type Unknown Unknown Primary Care Provider STAFF PHYSICIAN DARYN Massey Emergency Provider PH[employer] GARDENING MANAGER Landry Peace MD Admit Provider [facility] STAFF PHYSICIAN Attending Provider Discharge Potential Discharge Needs: PCP F/U Appt and Surgical F/U Appt Anticipated Barriers to Discharge: Medical Status Patient/Family Education Needs: Review discharge instructions, discuss Ask Me Three Transportation: Private vehicle Plan: Anticipate, Bi will discharge home via private vehicle with s/o Cinda with resumption of [facility] RN services. Pt will follow up with community providers and his discharge plan of care as instructed. CM will follow. PFSH All Active Problems (Updated 01/16/24 @ 11:12 by Landry Peace MD) HTN (hypertension) (Chronic) COPD without exacerbation (Acute) Acute on chronic respiratory failure with hypoxemia (Acute) Severe sepsis (Acute) Bilateral pneumonia (Acute) Sepsis (Acute) Acute hypoxic respiratory failure (Acute) Social History Smoking/Tobacco Use Status: Former Tobacco Use Smoking risk assessment performed?: Yes Alcohol Intake: never Drug use: Never Substance use type: does not use Housing: house Do you feel safe at home: Yes Do you feel safe in your relationship?: Yes SDOH(Care Management) Screening Will the Patient Participate in the Screening?: Yes Do you worry about having a steady place to live?: no Problems where you live: no known problems In the past 12 months, have you had to go without electric, gas, oil or water in your home?: no Have you or anyone in your house had to go without enough food to eat?: no Has lack of transportation kept you from medical appointments or from doing things needed for daily living?: no Has anyone in your support network made you feel unsafe for any reason?: no
[2024-01-17] MEDS: VANCOMYCIN/WATER (PEG) 1.25 GM/250 ML BAG IVPB (09:28)
--- NOTE | 2024-01-17 09:48 | RESPIRATORY ---
Spoke with Rufina at [facility] about home O2 order and she confirmed patient's current order is for 2L day and night.
--- NOTE | 2024-01-17 11:47 | PGE_ITS ---
Date of Service Date of service: 01/17/24 Time of Service: 11:48 Assessment and Plan Assessment and plan (1) Severe sepsis: Status: Acute Assessment and plan: - On admission patient meets criteria for severe sepsis with a heart rate of 102, respiratory rate in the mid 20s, white blood cell count of 25, source of infection presumed to be bilateral multifocal pneumonia with possible UTI (urinalysis pending), and a lactic acid of 2.1 -Patient was given vancomycin and cefepime in the emergency department, will continue -Follow-up a.m. CBC and blood cultures (2) Bilateral pneumonia: Status: Acute Assessment and plan: - Primary source of infection as noted above (3) Acute on chronic respiratory failure with hypoxemia: Status: Acute Assessment and plan: - Patient reportedly uses oxygen at home intermittently, though is documented as requiring 2-2.5L -required 4 L nasal cannula on admission, now down to 3L NC -Wean as tolerated with goal oxygen saturation 88 to 92% given patient's history of COPD (4) COPD without exacerbation: Status: Acute Assessment and plan: - Without acute exacerbation as patient is not wheezing at this time -Worsening oxygen requirement likely secondary to pneumonia as noted above -Will continue home inhaler regimen (5) HTN (hypertension): Status: Chronic Assessment and plan: - Continue home amlodipine Subjective Subjective Interval history since last seen: Patient states that he is feeling better as compared to admission. Exam Narrative Exam Narrative: well appearing older gentleman laying in bed in no acute distress, AOx4, 3L oxymask in place, heart RRR, lungs with diminished breath sounds in RLL, otherwise without wheezing, abdomen soft, non-tender, non-distended Objective Last Vital Signs Temp 97.9 F 01/17/24 11:07 Pulse 103 H 01/17/24 11:07 Resp 20 01/17/24 11:07 BP 134/63 01/17/24 11:07 Pulse Ox 90 L 01/17/24 11:07 Laboratory Results - last 24 hr 01/16/24 01/16/24 01/17/24 13:50 18:59 05:38 WBC 15.73 H RBC 4.14 L Hgb 13.3 L Hct 39.2 L MCV 95 MCH 32.1 MCHC 33.9 RDW 14.1 Plt Count 178 MPV 10.9 Sodium 143 Potassium 4.2 Chloride 103 Carbon Dioxide 33.8 H Anion Gap 6.2 BUN 29 H Creatinine 1.0 Est GFR (CKD-EPI 2020) 73.76 Glucose 143 H Calcium 8.9 Magnesium 2.3 Troponin I 43 Urine Color Yellow Urine Clarity Clear Urine pH 5.5 Ur Specific [place] 1.025 Urine Protein Trace Urine Ketones 15 H Urine Blood Negative Urine Nitrite Negative Urine Bilirubin Negative Urine Urobilinogen 0.2 Ur Leukocyte Esterase Negative Urine Glucose Negative Random Vancomycin 7.1 Time Spent with Patient Time Spent with Patient: >50 minutes Time was spent: preparing to see the patient(eg.review tests), obtaining and/or reviewing separately otained hiistory, ordering medications,tests, procedures, r eferring, communicating with other health director of career services, indepentently interpreting results, counseling the patient and care coordination
--- NOTE | 2024-01-17 13:59 | PHA.REVIEW2 ---
Pharmacy Admission Review Admission Clinical Review Admission Pharmacy Review: COPD without exacerbation (Acute) Acute on chronic respiratory failure with hypoxemia (Acute) Severe sepsis (Acute) Bilateral pneumonia (Acute) No Known Allergies Allergy (Unverified 01/16/24 08:59) Resuscitation Status Full Code Height 5 ft 10 in Weight 58 kg Pharmacy Admission Review Renal Dosing Renal Dosing: BUN 29 mg/dL (7-18) H 01/17/24 05:38 Creatinine 1.0 mg/dL (0.70-1.30) 01/17/24 05:38 Medications needing adjustments: Reviewed (CrCl 44 mL/min, BUN increased from 21) List of meds needing interventions: Current medications are okay Anticoagulation Anticoagulation: Hgb 13.3 g/dL (13.5-17.5) L 01/17/24 05:38 Hct 39.2 % (40.0-50.0) L 01/17/24 05:38 Plt Count 178 10^3/uL (130-400) 01/17/24 05:38 Creatinine 1.0 mg/dL (0.70-1.30) 01/17/24 05:38 DVT Prophylaxis: Reviewed (Hgb decreased from 14.7) Medications: Enoxaparin (40mg daily) Relevant Labs Relevant Labs: Sodium 143 mmol/L (136-145) 01/17/24 05:38 Potassium 4.2 mmol/L (3.5-5.1) 01/17/24 05:38 Chloride 103 mmol/L (98-107) 01/17/24 05:38 Magnesium 2.3 mg/dL (1.8-2.4) 01/17/24 05:38 Electrolytes, C-Reactive P, ESR: Reviewed (glucose 143 at 0538) Cardiac Review Cardiac Review: Troponin I 43 ng/L (<or=76) 01/16/24 13:50 NT-Pro-B Natriuret Pep 527 pg/mL (<300) H 01/16/24 09:05 BP, HR, EF%: Reviewed (BP WNL, HR 103 and Ox 90) QTc Review QTc: Reviewed (475 from 01/16/24) IV to PO Switch IV Medications: Reviewed (cefepime and vancomycin) Home Meds Home Med List reviewed: Reviewed Relevent Home Meds Not ordered & why?: Anoro (substituted with Stiolto per pharmacy protocol), amlodipine and metoprolol Spoke with provider regarding amlodipine and metoprolol. There is no dose or frequency listed on home med list and no fill history to go off of. Provider is okay with patient not receiving these as of right now as BP has been WNL during admission. If BP becomes elevated, reach out to provider again and maybe try to get med rec from provider or pharmacy to confirm dose. Current Meds Current Medication Order Review: Reviewed Pharmacy Antibiotic Review Relevant Labs: WBC 15.73 10^3/uL (4.4-10.8) H 01/17/24 05:38 Procalcitonin 0.6 ng/mL 01/16/24 09:05 Temperature 36.6 C Temperature 36.4 C Temperature 36.2 C Microbiology 01/16/24 09:30 Blood Culture - Preliminary Blood NO GROWTH 24 HOURS 01/16/24 09:05 Blood Culture - Preliminary Blood NO GROWTH 24 HOURS Comments: Patient is on cefepime (renally adjusted, 3 doses) and vancomycin (2 doses), day 2 for severe sepsis / pneumonia / possible UTI (waiting on UA). Based on vancomycin level of 7.1 this AM at 0538, patient is on 1250 mg q24h with predicted AUC of 542 and trough of 16.5. Will repeat level if there are any significant changes in renal function. Patient is afebrile, WBC decreased from 25.84 and blood cultures currently negative.
[2024-01-18 03:16] VITALS: BP 129/59; PULSE 85; RESP 14; TEMP 36.6; O2SAT 91
[2024-01-18 08:00] VITALS: BP 131/63; PULSE 84; RESP 15; TEMP 36.7; O2SAT 86
[2024-01-18] MEDS: Tiotropium/Olodaterol 10 PUFF INHALER 2 PUFF IH (08:15)
[2024-01-18 09:11] LABS: HCT 38.7 % (40.0-50.0); MCHC 33.6 % (32.0-36.0); MCV 95 fL (80-95); MPV 10.4 fL (8.0-11.0); Platelet Count 183 10^3/uL (130-400); RBC 4.06 10^6/uL (4.36-5.78); RDW 14.1 % (11.8-14.1); RDW-SD 49.3 fL; WBC 12.87 10^3/uL (4.4-10.8)
[2024-01-18] MEDS: Normal Saline Flush 10 ML SYR IVP ×2 (09:15→10:29)
[2024-01-18] MEDS: Aspirin E.C. 81 MG TABEC PO (09:15)
[2024-01-18] MEDS: CEFEPIME 2 GM in Normal Saline 100 ML IVPB (09:15)
[2024-01-18] MEDS: Enoxaparin 40 MG/0.4 ML SYR SC (09:18)
[2024-01-18 10:08] VITALS: O2SAT 89
[2024-01-18] MEDS: VANCOMYCIN/WATER (PEG) 1.25 GM/250 ML BAG IVPB (10:27)
--- NOTE | 2024-01-18 10:47 | W.PM.DS.N ---
Date of service: 01/18/24 Time of Service: 16:00 DS: Diagnosis Discharge Diagnosis (1) Severe sepsis: Status: Resolved (2) Bilateral pneumonia: Status: Resolved (3) Acute on chronic respiratory failure with hypoxemia: Status: Resolved (4) COPD without exacerbation: Status: Acute (5) HTN (hypertension): Status: Chronic Discharge Plan Disposition Patient Disposition: Home W/Home Health Services Condition: Good Discharge Details Reason For Visit: Severe Sepsis, CAP, Acute on chronic hypoxic resp Admit Date/Time: 01/16/24 11:07 Admit Provider: Landry Peace Attending Provider: Landry Peace Primary Care Provider: Suzie Quan Hospital Course Hospital Course: Patient initially presented with signs and symptoms consistent with severe sepsis secondary to hospital-acquired pneumonia given recent hospitalization at [facility] for COPD exacerbation. Patient was not in acute exacerbation therefore did not receive steroids, however he was on vancomycin and cefepime for pneumonia. He also had increased oxygen requirement up to 4 L nasal cannula which is an increase from his baseline 2 to 2.5 L at home. While hospitalized he did experience significant improvement and was thus determined to be stable for discharge given that his oxygen requirement is back to his baseline. He will be discharged with an additional 10 days of p.o. Levaquin. Home Meds and New Rx's Prescriptions: New levofloxacin 750 mg tablet 750 mg PO DAILY Qty: 10 0RF Continued amlodipine .ROUTE metoprolol tartrate .ROUTE aspirin [Adult Low Dose Aspirin] 81 mg tablet,delayed release (DR/EC) 81 mg PO DAILY docusate sodium [Col-Rite] 100 mg capsule 100 mg PO DAILY Anoro Ellipta 62.5-25 mcg/actuation blister with device 1 inh inhalation DAILY albuterol sulfate 90 mcg/actuation HFA aerosol inhaler 2 inh inhalation Q6H PRN Discharge Instructions Stand Alone Forms: Nursing Discharge Form Referrals: Suzie Quan [Primary Care Provider] - 02/01/24 3:00 pm Activity:: Activity as Tolerated Equipment/Supplies:: No Equipment Needed Diet:: As Tolerated Discharge Orders Discharge Orders: Discharge Order (Routine); Ordered 01/18/24 Ordered By: Landry Peace Discharge Data Discharge Date/Time-TO BE ENTERED AT DEPARTURE: 01/18/24 16:19 DS: Summary Time Spent with Patient providing and/or coordinating discharge services: Greater than 30 minutes Status at Discharge Functional status at discharge: independent ambulation Overall status at discharge: patient is back to baseline Mental Status: mental status grossly normal Speech and Movement: speech and movement normal Mood: congruent mood Affect: normal affect Quality:SDOH Health Related Social Needs: No Data to Display Exam Narrative Exam Narrative: well appearing older gentleman laying in bed in no acute distress, AOx4, 3L oxymask in place, heart RRR, lungs with diminished breath sounds in RLL, otherwise without wheezing, abdomen soft, non-tender, non-distended Psych Mental Status: mental status grossly normal Speech and Movement: speech and movement normal Mood: congruent mood Affect: normal affect DS: Data Vitals/I&O Vitals and I&O: Vital Signs Temperature 98.1 F 01/18/24 08:00 Temperature Source Temporal Artery Scan 01/18/24 08:00 Pulse 84 01/18/24 08:00 Pulse Rhythm Regular 01/16/24 12:07 Pulse 73 01/16/24 11:40 Respiratory Rate 15 01/18/24 08:00 Respiratory Effort Non-Labored 01/16/24 12:07 Respiratory Depth Normal 01/16/24 12:07 Respiratory Pattern Normal 01/16/24 12:07 Blood Pressure 131/63 01/18/24 08:00 Blood Pressure Mean 81 01/16/24 11:31 Blood Pressure Position Sitting 01/16/24 08:54 Pulse Oximetry 89 L 01/18/24 10:08 Oxygen Delivery Method Nasal Cannula 01/18/24 10:08 Oxygen Flow Rate 2 01/18/24 10:08 Pain Level 0 01/18/24 08:00 Comment recheck on O2 per RN 01/18/24 10:08 Intake & Output 01/17/24 01/18/24 01/18/24 17:59 05:59 17:59 Intake Total 590 / 590 100 / 690 100 / 100 Output Total 500 / 500 550 / 1050 Balance 90 / 90 -450 / -360 100 / 100 Intake: IV 350 / 350 100 / 450 100 / 100 Oral 240 / 240 Output: Urine 500 / 500 550 / 1050 Other: Urine Color Yellow Yellow Urine Appearance Clear Urine Odor Normal Comment voided in urinal Voiding Methods Urinal Data Completed and Pending Labs on day of discharge: Labs from last 24 hours 01/18/24 05:35 WBC Pending RBC Pending Hgb Pending Hct Pending MCV Pending MCH Pending MCHC Pending RDW Pending Plt Count Pending MPV Pending Sodium Pending Potassium Pending Chloride Pending Carbon Dioxide Pending Anion Gap Pending BUN Pending Creatinine Pending Est GFR (CKD-EPI 2020) Pending Glucose Pending Calcium Pending Preliminary micro results at discharge 01/16/24 09:30 Blood Culture - Preliminary Blood NO GROWTH 24 HOURS 01/16/24 09:05 Blood Culture - Preliminary Blood NO GROWTH 24 HOURS PFSH All Active Problems (Updated 01/19/24 @ 00:05 by BLADIMIR GOODWIN) HTN (hypertension) (Chronic) COPD without exacerbation (Acute) Sepsis (Acute) Acute hypoxic respiratory failure (Acute) Social History Smoking/Tobacco Use Status: Former Tobacco Use Smoking risk assessment performed?: Yes Alcohol Intake: never Drug use: Never Substance use type: does not use Housing: house Do you feel safe at home: Yes Do you feel safe in your relationship?: Yes Time Spent with Patient Time Spent with Patient: <45 minutes Time was spent: preparing to see the patient(eg.review tests), obtaining and/or reviewing separately otained hiistory, ordering medications,tests, procedures, referring, communicating with other health health care marketing specialist, indepentently interpreting results, counseling the patient and care coordination
[2024-01-18 11:14] LABS: Anion Gap 5.7 mmol/L (3-11); BUN 31 mg/dL (7-18); CO2 31.3 mmol/L (21.0-32.0); Calcium 8.5 mg/dL (8.5-10.1); Chloride 107 mmol/L (98-107); Estimated GFR 73.76 (mL/min/1.73m2); Glucose 87 mg/dL (74-106); Potassium 4.1 mmol/L (3.5-5.1); Sodium 144 mmol/L (136-145)
--- NOTE | 2024-01-18 11:35 | CMDISCH_ITS ---
Date of service: 01/18/24 Time of Service: 11:35 LACE Index Scoring Tool Questions: Length of Stay (in days): 2 Was the patient admitted via the E.D.?: Yes Comorbidities: Chronic Pulmonary Disease E.D. Visits: 1 Answers: Total Score: 8 Risk of Readmission: Low Risk Care Management Discharge Plan Reason for Hospitalization: Severe Sepsis Discharge Plan: Bi is discharged home with resumption of [facility] RN services. Agrees to follow up with PCP Suzie Quan, as scheduled. Transportation is provided by [facility]. Patient/Family Education Needs: Review discharge instructions, limitations, medications and plan to follow up with local PCP. Discuss ask me three. Services Needed at Discharge: Home Health Care Services (Resumption of RN services) SDOH Health Related Social Needs: No Data to Display
[2024-01-18 11:52] VITALS: O2SAT 89
== END 2024-01-18 16:19 | disposition home health service (06) | DRG 871 ==
LOC: ER 11:51 → MS 11:55
PROVIDERS: Admitting Provider Family Medicine; Emergency Provider Physician Assistant; PCP Family Medicine; Visit Provider Family Medicine
DX: A41.9 Sepsis, unspecified organism (principal); J18.9 Pneumonia, unspecified organism; J96.21 Acute and chronic respiratory failure with hypoxia; J44.0 Chronic obstructive pulmonary disease with (acute) lower respiratory infection; R65.20 Severe sepsis without septic shock; I10 Essential (primary) hypertension; Z87.891 Personal history of nicotine dependence
CPT/HCPCS: 00123; 36410; 36415; 80048; 80053; 82805; 83690; 84145; 85027; 87040; 87637; 93005; 94640; 96365; 96368; 96375; 99285; J1650; 71045; 80202; 81003; 83605; 83735; 83880; 84484; 85025; 85379; 93010; 94664; 94760; 99223; 99233; 99239; J0131; J0692; J1885; J3372; J3475

== ENCOUNTER 2024-02-15 05:09 | Emergency (ER) | payer MEDICARE, SELFPAY ==
[2024-02-15] VITALS (108 sets, daily range): BP systolic 79–145; BP diastolic 34–119; PULSE 85–147; RESP 16–40; TEMP 36.5; O2SAT 76–97
--- NOTE | 2024-02-15 05:00 | RT.EKG_ITS ---
APPROVED REPORT Exam: Resting ECG Reason for Exam: a-fib Patient Location: E HR:107 bpm ECG Measurements Heart Rate 107 AXIS PA 161 P 86 QRSd 117 QRS 100 QT 358 T 87 QTc 477 Conclusion Sinus tachycardia...rate> 99 baseline wander limiits interpretation, repeat requested
--- NOTE | 2024-02-15 05:15 | RT.EKG_ITS ---
APPROVED REPORT Exam: Resting ECG Reason for Exam: weakness Patient Location: E HR:107 bpm ECG Measurements Heart Rate 107 AXIS CO 139 P 87 QRSd 115 QRS -75 QT 357 T 75 QTc 466 Conclusion Sinus tachycardia...rate> [address] segment or T wave abnormalitites to suggest occlusvie MA
--- NOTE | 2024-02-15 05:15 | DI.RAD_ITS ---
Exam(s) XR CHEST 2V PA LATERAL EXAM: XR CHEST 2V PA LATERAL CLINICAL HISTORY: fall TECHNIQUE: 2D digital imaging was performed of the chest. Two images were obtained. PA and lateral views were obtained. COMPARISON: CR XR PORTABLE CHEST AP from 01/16/2024 FINDINGS: MEDIASTINUM: Normal. HEART: Normal. PULMONARY VASCULATURE: Normal. LUNGS: The lungs are hyperinflated with flattened diaphragms consistent with underlying COPD. There are scattered infiltrate seen in the lungs. PLEURAL SPACE: There is a small pleural effusions bilaterally. No pneumothorax. BONE:Within normal limits for the patient's age. OTHER FINDINGS:Normal. IMPRESSION: 1. There are small bilateral pleural effusions. 2. Bilateral pulmonary infiltrates which may represent atelectasis. DATA REPOSITORY: RADIATION DOSE DELIVERED:
--- NOTE | 2024-02-15 05:15 | DI.RAD_ITS ---
Exam(s) XR PELVIS AP EXAM: XR PELVIS AP CLINICAL HISTORY: fall, right hip pain, externally rotated. TECHNIQUE: 2D digital imaging was performed.One images were obtained. COMPARISON: No exams were available for comparison FINDINGS: BONES: There is a fracture through the neck of the right femur. The fracture is impacted. No bony d estructive lesion is seen. JOINTS: No dislocation present. No joint space narrowing is present. SOFT TISSUE: Normal. IMPRESSION: There is a transverse fracture through the right femoral neck with impaction of the fracture noted. DATA REPOSITORY: RADIATION DOSE DELIVERED:
--- NOTE | 2024-02-15 05:26 | DI.RAD_ITS ---
Exam(s) XR FEMUR RT EXAM: XR FEMUR RT CLINICAL HISTORY: fall, right hip pain, externally rotated. TECHNIQUE: 2D digital imaging was performed of the right femur. Four images were obtained. AP and l ateral views were obtained. COMPARISON: No exams were available for comparison FINDINGS: BONES: There is an acute fracture through the right femoral neck with impaction of the fracture noted . No bony destructive lesion is seen. Visualized portion of knee and hip joints are unremarkable. SOFT TISSUE: Atherosclerotic calcification is present. IMPRESSION: Acute impacted fracture through the right femoral neck. DATA REPOSITORY: RADIATION DOSE DELIVERED:
[2024-02-15 05:34] LABS: BE (Venous) 6 mmol/L (-2-3); HCO3 (Venous) 32 mmol/L (23-28); O2 Sat (Venous) 34 %; TCO2 (Venous) 28 mmol/L (24-29); pCO2 (Venous) 58 mmHg (41-51); pH (Venous) 7.34 (7.31-7.41); pO2 (Venous) 23 mmHg
[2024-02-15] MEDS: Albuterol/Ipratropium 3 ML UPD VIAL UPD ×2 (05:34→08:46)
[2024-02-15] MEDS: Acetaminophen 500 MG TAB 1000 MG PO (05:34)
[2024-02-15 05:35] LABS: Abs Immature Grans 0.19 10^3/uL (0.0-0.06); HCT 49.6 % (40.0-50.0); HGB 16.3 g/dL (13.5-17.5); MCH 32.5 pg (27.0-33.0); MCHC 32.9 % (32.0-36.0); MCV 99 fL (80-95); Platelet Count 167 10^3/uL (130-400); RBC 5.01 10^6/uL (4.36-5.78); RDW 14.7 % (11.8-14.1); RDW-SD 54.8 fL; WBC 21.59 10^3/uL (4.4-10.8)
--- NOTE | 2024-02-15 05:42 | ED.GENADUL_ITS ---
Discharge Plan Discharge Details Chief Complaint: Fall/Non TraumaCriteria Primary Care Provider: Suzie Quan ED Provider: Farnaz Morales Home Meds and New Rx's Prescriptions: No Action amlodipine 10 mg tablet 10 mg PO DAILY pantoprazole 40 mg tablet,delayed release (DR/EC) 40 mg PO DAILY metoprolol succinate 25 mg tablet extended release 24 hr 25 mg PO DAILY Patient Comments: TAKE 1 TABLET BY MOUTH DAILY aspirin [Adult Low Dose Aspirin] 81 mg tablet,delayed release (DR/EC) 81 mg PO DAILY docusate sodium [Col-Rite] 100 mg capsule 100 mg PO DAILY Anoro Ellipta 62.5-25 mcg/actuation blister with device 1 inh inhalation DAILY albuterol sulfate 90 mcg/actuation HFA aerosol inhaler 2 inh inhalation Q6H PRN levofloxacin 750 mg tablet 750 mg PO DAILY Qty: 10 0RF HPI General Mode of arrival: EMS . Date/Time Provider Initiated Documentation: 02/15/24 05:26 . Limitations to Documentation: no limitations . Information obtained by: patient, EMS and old records reviewed (labs) . HPI Narrative: 83yo F with HTN, COPD on baseline 5LNC with baseline sats 87-89%, presenting with inability to ambulate after a fall yesterday. Lives at home with his . Has been increasingly more weak overall over the past two days. Eating and drinking less than usual. Yesterday afternoon patient fell at home; was able to get up and get into his recliner but has not been able to independently get out of the recliner and unable to get to the bathroom; found with dried stool over his lower body. Patient was able to bear weight for EMS. He reports right hip pain and right thigh pain, otherwise denies pain. Normal sensation in his right lower extremity and able to to move it but it is very painful. Did not strike his head or lose consciousness. Not on anticoagulation. No fevers, chills, rash, chest pain, abdominal pain, back pain, neck pain, headache, dysuria, hematuria, nausea, vomiting, diarrhea, lightheadedness, numbness, tingling, focal weakness, vision changes, vertigo, or other concerns. Related Data Home Medications ?Medication ?Instructions ?Recorded ?Confirmed albuterol sulfate 90 mcg/actuation 2 inh inhalation Q6H PRN 01/16/24 02/15/24 aerosol inhaler aspirin 81 mg tablet,delayed 81 mg PO DAILY 01/16/24 02/15/24 release (Adult Low Dose Aspirin) docusate sodium 100 mg capsule 100 mg PO DAILY 01/16/24 02/15/24 (Col-Rite) umeclidinium 62.5 mcg-vilanterol 1 inh inhalation DAILY 01/16/24 02/15/24 25 mcg/actuation powdr for inhalation (Anoro Ellipta) levofloxacin 750 mg tablet 750 mg PO DAILY #10 tabs 01/18/24 02/15/24 amlodipine 10 mg tablet 10 mg PO DAILY 02/15/24 02/15/24 metoprolol succinate 25 mg 25 mg PO DAILY 02/15/24 02/15/24 tablet,extended release 24 hr pantoprazole 40 mg tablet,delayed 40 mg PO DAILY 02/15/24 02/15/24 release Previous Rx's ?Medication ?Instructions ?Recorded levofloxacin 750 mg tablet 750 mg PO DAILY #10 tabs 01/18/24 Allergies Allergy/AdvReac Type Severity Reaction Status Date / Time No Known Allergies Allergy Verified 02/15/24 05:17 General Stated Complaint: Fall/Non TraumaCriteria TOMMY: 3 Review of Systems Narrative: see HPI Exam Narrative Exam Narrative: GENERAL: Alert, no acute distress. Dried stool in groin, on buttocks, on thighs. SKIN: Warm and well perfused. HEAD: Atraumatic, normocephalic without edema, discoloration or evidence of trauma. Facial bones without deformities or tenderness. EYES: PERRL. No scleral icterus or conjunctival injection. Extraocular muscles intact without nystagmus or diplopia. EARS: No hemotympanum. NOSE: No discharge, tenderness, laxity. No nasal septal hematoma. MOUTH: No malocclusion or trismus. Moist mucus membranes without blood. NECK: Trachea midline. No discolorations or edema. No midline cervical spine tenderness. Full pain free ROM with flexion, extension, and lateral rotation. CV: Tachycardiac, regular., Normal s1 and s2. PV: Radial pulses 2+ bilaterally and symmetric. Dorsalis pedis pulses 2+ bilaterally and symmetric. 2+ capillary refill. No extremity edema. CHEST: No abrasions or ecchymosis. Chest symmetric with respirations. No chest wall tenderness. Slightly increased WOB, good air movement bilaterally with diffuse expiratory wheezes. ABDOMEN: Scattered echymosis lower abdomen, moreso in RLQ. Soft, nondistended, nontender. BACK: No abrasions, skin openings, or ecchymosis. Spine without bony tenderness, no step offs. Pressure ulcer to sacrum, covered in dried stool PELVIC: Pelvis stable, right hip tender to lateral compression MSK: Right hip externally rotated, otherwise no gross deformities or discolorations or lesions. Pain with passive internal rotation at right hip. RLE compartments soft, no echymosis, knee with no pain, warmth, or effusion. NEURO: ? GCS 15.? PERRL.? EOMI.? Fluent speech, no dysarthria. Motor- 5/5 strength symmetric bilateral upper and lower extremities (aside from right hip & knee not tested 2/t to pain) including shoulder abductors/adductors, elbow flexors/extensors, wrist flexors/extensors, finger abductors/adductors, hipflexors/extensors, knee flexors/extensors, ankle dorsifl exors and planter flexors. Sensation- ?Intact to light touch and symmetric multiple dermatomes including upper and lower extremities Coordination- No dysmetria on finger to nose CRANIAL NERVES: II: Pupils equal and reactive, III, IV, : EOM intact, no gaze preference or deviation, no nystagmus. V: normal sensation in V1, V2, and V3 segments bilaterally VII: no asymmetry, no nasolabial fold flattening VIII: hard of hearing IX, X: normal palatal elevation, no uvular deviation XI: 5/5 head turn and 5/5 shoulder shrug bilaterally XII: midline tongue protrusion Course Vital Signs Vital signs: Vital Signs Temperature 36.5 C 02/15/24 05:09 Pulse 101 H 02/15/24 05:09 Respiratory Rate 16 02/15/24 05:09 Blood Pressure 100/67 02/15/24 05:09 Pulse Oximetry 89 L 02/15/24 05:09 Temperature 36.5 C 02/15/24 05:09 Pulse 101 H 02/15/24 05:09 Respiratory Rate 16 02/15/24 05:09 Respiratory Effort Labored 02/15/24 05:17 Blood Pressure 100/67 02/15/24 05:09 Blood Pressure Position Supine 02/15/24 05:09 Pulse Oximetry 89 L 02/15/24 05:09 Oxygen Delivery Method Aerosol Mask 02/15/24 05:34 Oxygen Flow Rate 8 02/15/24 05:34 Lab/Test Results Lab/Test Results: Laboratory Tests Range/Units 02/15/24 05:17 VBG pH (7.31-7.41) 7.34 VBG pCO2 (41-51) mmHg 58 H VBG pO2 mmHg 23 VBG HCO3 (23-28) mmol/L 32 H VBG Total CO2 (24-29) mmol/L 28 VBG O2 Saturation % 34 VBG Base Excess (-2-3) mmol/L 6 H Medical Decision Making 83yo F with HTN, COPD on baseline 5LNC with baseline sats 87-89%, presenting with inability to ambulate after a fall yesterday. Since the fall had been unable to get out of the recliner, not drinking, found covered in stool. Tachycardiac to 100 on arrival, vital signs otherwise reassuring, O2 sat 89% on home 5L NC. Some echymosis on abdomen and RLE externally rotated with pain at right hip; otherwise no traumatic findings. Sacral decubitis ulcer present. Does have mild wheezes and increased WOB and states he feels like he could use a breathing treatment; given a duoneb with good effect. 1L IVF ordered for dehydration. Tylenol for pain. -EKG sinus tachycardia, new T wave inversions anterolateral leads, no ST segment or T wave abnormalities to suggest occlusive WA. Labs reviewed as below: - CBC with marked leukocytosis to 21.6 (with tachycardia meets SIRS criteria; no focus of infection on exam, not overtly septic however given age/fraility/nonspecific weakness will initiate broad-spectrum abx with zosyn/zyvox and send blood cultures while remainder of workup pending). No anemia. -CMP with likely CHRISTIANO, Cr 3.1 from normal range one month prior, also with hyperkalemia at 6.0. 1L IVFB in process, no EKG changes and pt did get duoneb for wheezing/increased WOB/COPD; will send repeat to confirm. New mild AST/ALT/ALP elevations. Lipase and amylase normal. -VBG with mild hypercapnea, no metabolic acidosis, overall reassuring. Lactate & procal pending. -Initial troponin elevated at 473, clinically likely [id number]. No chest pain. Will trend troponin. -UA and respiratory viral swab pending. Plain films and CT abd/pelvis independently reviewed; femoral neck fracture on my view, agree with radiology read below. 3x3 AAA present on non-contrast scan likely incidental finding, no indication for emergent CTA at this time especially given renal function. Discussed with [facility] hospitalist Dr. Peace, concerns patient may be better served at tertiary care facility- would like [facility] [place] prior to acceptance. Discussed with Dr. Gutierrez [facility] orthopedics, [employer] to review case and determine if acceptable to be done here. If ok with anesthesia & cardiology, pt will be admitted here to medicine service; otherwise will need transfer ideally to [facility]. Signed out to Dr. Walters. Imaging Data Radiologic Study: Imaging: X-Ray and CT Scan Radiologist's impression: IMPRESSION: 1. Transverse fracture of the right femoral neck which is better appreciated on the dedicated femoral radiographs. 2. Infrarenal abdominal aortic aneurysm. Proper evaluation with CT angiogram should be obtained for definitive assessment. 3. Left inguinal bowel containing hernia without evidence for overt obstruction. XR pelvis: IMPRESSION: Transverse fracture through the base of the right femoral neck with superior displacement of the distal fracture component. XR femur: IMPRESSION: Transverse fracture through the base of the right femoral neck with mild superior displacement of the distal fracture component. XR chest: IMPRESSION: 1. Bilateral pleural effusions with likely dependent atelectasis, difficult to exclude superimposed infection. Correlate clinically. 2. Multiple wedge deformities of the thoracic spine likely degenerative. Correlate with point tenderness given patient presentation. 3. COPD. Lab Data Lab results reviewed: Yes I reviewed the patient's lab results. Labs: 02/15/24 05:57 Blood Blood Culture - Pending 02/15/24 05:57 Blood Blood Culture - Pending Laboratory Tests Range/Units 02/15/24 05:17 WBC (4.4-10.8) 10^3/uL 21.59 H RBC (4.36-5.78) 10^6/uL 5.01 Hgb (13.5-17.5) g/dL 16.3 Hct (40.0-50.0) % 49.6 MCV (80-95) fL 99 H MCH (27.0-33.0) pg 32.5 MCHC (32.0-36.0) % 32.9 RDW (11.8-14.1) % 14.7 H Plt Count (130-400) 10^3/uL 167 MPV (8.0-11.0) fL 11.0 Immature Gran % % 0.0 Neutrophils % % 90.0 Lymphocytes % % 3.0 Monocytes % % 7.0 Eosinophils % % 0.0 Basophils % % 0.0 Nucleated RBC % (0.0-0.3) % 0.0 Absolute Neutrophils (1.2-6.7) 10^3/uL 19.43 H Absolute Lymphocytes (1.2-3.4) 10^3/uL 0.65 L Absolute Monocytes (0.1-0.8) 10^3/uL 1.51 H Absolute Eosinophils (0.0-0.7) 10^3/uL 0.00 Absolute Basophils (0.0-0.2) 10^3/uL 0.00 RBC Morphology Normal VBG pH (7.31-7.41) 7.34 VBG pCO2 (41-51) mmHg 58 H VBG pO2 mmHg 23 VBG HCO3 (23-28) mmol/L 32 H VBG Total CO2 (24-29) mmol/L 28 VBG O2 Saturation % 34 VBG Base Excess (-2-3) mmol/L 6 H Sodium (136-145) mmol/L 142 Potassium (3.5-5.1) mmol/L 6.0 H Chloride (98-107) mmol/L 103 Carbon Dioxide (21.0-32.0) mmol/L 30.6 Anion Gap (3-11) mmol/L 8.4 BUN (7-18) mg/dL 63 H Creatinine (0.70-1.30) mg/dL 3.1 H Est GFR (CKD-EPI 2020) (mL/min/1.73m2) 18.97 Glucose (74-106) mg/dL 172 H Calcium (8.5-10.1) mg/dL 8.9 Total Bilirubin (0.2-1.0) mg/dL 0.72 AST (15-37) U/L 53 H ALT (16-63) U/L 97 H Alkaline Phosphatase (46-116) U/L 128 H Creatine Kinase (39-308) U/L 283 Troponin I (<or=76) ng/L 473 H* Total Protein (6.4-8.2) g/dL 6.6 Albumin (3.4-5.0) g/dL 2.9 L Amylase (25-115) U/L 76 Lipase (16-77) U/L 22 Quality:SDOH Health Related Social Needs: No Data to Display PFSH All Active Problems (Updated 02/15/24 @ 07:32 by Arnaldo Islas MD) Displaced fracture of right femoral neck (Acute) HTN (hypertension) (Chronic) COPD without exacerbation (Acute) Sepsis (Acute) Acute hypoxic respiratory failure (Acute) Social History Smoking/Tobacco Use Status: Former Tobacco Use Smoking risk assessment performed?: Yes Alcohol Intake: never Drug use: Never Substance use type: does not use Housing: house Do you feel safe at home: Yes Do you feel safe in your relationship?: Yes
[2024-02-15] MEDS: Normal Saline 1,000 ML 1000 ML IV ×2 (05:50→07:54)
[2024-02-15 05:51] LABS: Absolute Neutrophil Count 19.43 10^3/uL (1.2-6.7)
[2024-02-15 05:52] LABS: Absolute Lymphocyte Count 0.65 10^3/uL (1.2-3.4); Absolute Monocyte Count 1.51 10^3/uL (0.1-0.8)
[2024-02-15 05:53] LABS: Diff Comment Manual Differential; RBC Morphology Normal
[2024-02-15 05:54] LABS: ALT 97 U/L (16-63); AST 53 U/L (15-37); Albumin 2.9 g/dL (3.4-5.0); Alkaline Phosphatase 128 U/L (46-116); Amylase 76 U/L (25-115); Anion Gap 8.4 mmol/L (3-11); BUN 63 mg/dL (7-18); Bilirubin, Total 0.72 mg/dL (0.2-1.0); CO2 30.6 mmol/L (21.0-32.0); CREATININE 3.1 mg/dL (0.70-1.30); Calcium 8.9 mg/dL (8.5-10.1); Chloride 103 mmol/L (98-107); Creatine Kinase 283 U/L (39-308); Estimated GFR 18.97 (mL/min/1.73m2); Glucose 172 mg/dL (74-106); Lipase 22 U/L (16-77); Sodium 142 mmol/L (136-145); Total Protein 6.6 g/dL (6.4-8.2)
--- NOTE | 2024-02-15 06:00 | DI.CT_ITS ---
Exam(s) CT ABDOMEN PELVIS WO EXAM: CT ABDOMEN PELVIS WO CLINICAL HISTORY: fall, echymosis lower abd mostly RLQ. TECHNIQUE: Imaging Protocol: Axial computed tomography images with coronal and sagittal reformatted images were created and reviewed. COMPARISON: CR,XR XR CHEST 2V PA LATERAL from 02/15/2024 FINDINGS: A patient motion ABDOMEN: Lung Bases: There are small bilateral pleural effusions. Bilateral basilar infiltrates are seen, rig ht greater than left. Liver: Normal density. There are couple of hepatic cysts. The largest measures 1.5 cm and is located in the right lobe. No suspicious hepatic lesions are seen. Gallbladder and biliary tract: No radiodense calculus or biliary ductal dilation. Pancreas: Normal density, no abnormal calcifications or inflammatory process. Spleen: Normal. Kidneys: Normal size, contour and axis.No radiodense stones or obstructive uropathy. No masses seen. Adrenal glands: There is nodularity of the right adrenal gland probably reflecting an adenoma. The l eft adrenal gland is unremarkable. No follow-up is recommended. Lymph nodes: Within normal limits. Abdominal Aorta: There is an infrarenal abdominal aortic aneurysm measuring 3.1 cm AP x 3.4 cm transv erse. Atherosclerotic calcification is present. PELVIS: Bladder:Symmetric distention, no gross wall thickening. Bowel: No obstruction or bowel wall thickening. No evidence of appendicitis. Peritoneal cavity: No ascites, collection or mesenteric inflammatory response. No free air. Reproductive organs: Unremarkable as visualized. Bones: There is an acute fracture through the right femoral neck. There is displacement and impactio n of the fracture present. The femoral head is seated within the acetabulum. Age-appropriate degene rative changes are seen in the spine. Soft Tissues: There is a small fat containing right inguinal hernia. There is a moderately sized lef t inguinal hernia containing an unremarkable loop of bowel. No evidence of incarceration or obstruct ion. IMPRESSION: 1. Acute displaced and mildly impacted fracture through the right femoral neck. 2. Small bilateral pleural effusions and subjacent atelectasis. 3. 3.1 x 3.4 cm infrarenal abdominal aortic aneurysm. RADIATION DOSE DELIVERED: 636.17mGy.cm Total DLP DATA REPOSITORY: All CT scans at this facility are submitted to the National Radiology Data Registry (NRDR) Dose Index Registry (DIR) with the [employer] (ACR). RADIATION OPTIMIZATION: All CT scans at this facility use at least one of these dose optimization te chniques: automated exposure control; mA and/or kV adjustment per patient size (includes targeted exa ms where dose is matched to clinical indication); or iterative reconstruction.
[2024-02-15 06:02] LABS: Troponin I 473 ng/L (<or=76)
[2024-02-15 06:47] LABS: COVID-19 PCR Negative (Negative); Influenza A PCR Negative (Negative); Influenza B PCR Negative (Negative); RSV PCR Negative (Negative)
[2024-02-15 06:51] LABS: Source Nasopharynx
--- NOTE | 2024-02-15 06:59 | DI.VRAD_ITS ---
PROCEDURE INFORMATION: Exam: XR Right Femur Exam date and time: 02/15/2024 6:08 AM Age: 83 years old Clinical indication: Injury or trauma; Blunt trauma; Injury details: Fall, right hip pain, externally rotated TECHNIQUE: Imaging protocol: Radiologic exam of the right femur. Views: 2 views. COMPARISON: CR XR FEMUR RT 02/15/2024 6:08 AM FINDINGS: Bones/joints: Transverse fracture through the base of the right femoral neck. Mild superior displacement of the distal fracture component. Soft tissues: Unremarkable. Vasculature: Peripheral arterial vascular disease. IMPRESSION: Transverse fracture through the base of the right femoral neck with mild superior displacement of the distal fracture component. Dictated and Authenticated by: Spenser Lazo MD. Ordering:NICCI Osei MD
--- NOTE | 2024-02-15 06:59 | DI.VRAD_ITS ---
PROCEDURE INFORMATION: Exam: CT Abdomen And Pelvis Without Contrast Exam date and time: 02/15/2024 6:30 AM Age: 83 years old Clinical indication: Injury or trauma; Other: Fall, echymosis lower abd mostly rlq; Blunt; Generalized TECHNIQUE: Imaging protocol: Computed tomography of the abdomen and pelvis without contrast. COMPARISON: CR XR PELVIS AP 02/15/2024 6:06 AM FINDINGS: Lungs: COPD changes. Pleural spaces: Bilateral small pleural effusions with associated compressive atelectasis. Heart: Base of heart is unremarkable as visualized. Liver: Two benign-appearing hepatic hypodensities. Gallbladder and biliary ducts: Gallbladder is distended. Pancreas: Fatty atrophy of the pancreas. Spleen: Normal. No splenomegaly. Adrenal glands: Normal. No mass. Kidneys and ureters: Normal. No hydronephrosis. Stomach and bowel: Prominent rectal stool burden. Multiple dilated loops of small and large bowel throughout the abdomen without focal transition. Appendix: No evidence of appendicitis. Intraperitoneal space: Unremarkable. No free air. No significant fluid collection. Vasculature: Heavy calcified atherosclerotic disease throughout the visualized vasculature. Aortic aneurysm measuring 3.1 x 3.3 cm (series 2, image 135). Lymph nodes: Unremarkable. No enlarged lymph nodes. Urinary bladder: Unremarkable as visualized. Reproductive: Unremarkable as visualized. Bones/joints: Transverse fracture of the right femoral neck. Soft tissues: Cachexia. Bowel containing left inguinal hernia which measures 3.8 x 7.5 x 6.2 cm. Fascial defect measures 3.6 x 4.4 cm. IMPRESSION: 1. Transverse fracture of the right femoral neck which is better appreciated on the dedicated femoral radiographs. 2. Infrarenal abdominal aortic aneurysm. Proper evaluation with CT angiogram should be obtained for definitive assessment. 3. Left inguinal bowel containing hernia without evidence for overt obstruction. Dictated and Authenticated by: Spenser Lazo MD. Ordering:NICCI Osei MD
--- NOTE | 2024-02-15 07:00 | DI.VRAD_ITS ---
PROCEDURE INFORMATION: Exam: XR Pelvis Exam date and time: 02/15/2024 6:06 AM Age: 83 years old Clinical indication: Injury or trauma; Blunt trauma (contusions or hematomas); Hip and pelvic region; Injury details: Fall, right hip pain, externally rotated TECHNIQUE: Imaging protocol: Radiologic exam of the pelvis. Views: 1 or 2 view. COMPARISON: No relevant prior studies available. FINDINGS: Bones/joints: Transverse fracture through the base of the right femoral neck with superior displacement of the distal fracture component. Soft tissues: Unremarkable. Gastrointestinal tract: Multiple loops of dilated bowel which is seen to better advantage on the CT abdomen and pelvis. IMPRESSION: Transverse fracture through the base of the right femoral neck with superior displacement of the distal fracture component. Dictated and Authenticated by: Spenser Lazo MD. Ordering:NICCI Osei MD
--- NOTE | 2024-02-15 07:02 | DI.VRAD_ITS ---
PROCEDURE INFORMATION: Exam: XR Chest Exam date and time: 02/15/2024 6:21 AM Age: 83 years old Clinical indication: Injury or trauma; Fall; Blunt trauma (contusions or hematomas) TECHNIQUE: Imaging protocol: Radiologic exam of the chest. Views: 2 views. COMPARISON: CR XR PORTABLE CHEST AP 01/16/2024 9:25 AM FINDINGS: Lungs: COPD changes. Posterior dependent infiltrates. Pleural spaces: Bilateral small pleural effusions. Heart/Mediastinum: Unremarkable. No cardiomegaly. Vasculature: Atherosclerotic disease of the aortic arch. Bones/joints: Diffuse degenerative change of the visualized osseous structures. Consecutive wedge deformities of the thoracic spine likely degenerative. IMPRESSION: 1. Bilateral pleural effusions with likely dependent atelectasis, difficult to exclude superimposed infection. Correlate clinically. 2. Multiple wedge deformities of the thoracic spine likely degenerative. Correlate with point tenderness given patient presentation. 3. COPD. Dictated and Authenticated by: Spenser Lazo MD. Ordering:NICCI Osei MD
[2024-02-15] MEDS: PIPERACILLIN/TAZO 3.375 GM in Normal Saline 50 ML IVPB (07:09)
[2024-02-15 07:12] LABS: Bilirubin Small (Negative); Blood Trace-intact (Negative); Clarity Sl Cloudy (Clear); Glucose Negative (Negative); Ketones Trace mg/dL (Negative); Leukocyte Esterase Negative (Negative); Nitrite Negative (Negative); Specific Gravity 1.025 (1.005-1.025); Urobilinogen 0.2 mg/dL (Up to 0.2)
[2024-02-15 07:20] LABS: Bacteria Many HPF (Negative); Epithelial Cells Rare HPF (Negative); RBC 0-2 HPF (0-2)
[2024-02-15 07:21] LABS: C & S Indicated? Yes; Casts Negative LPF (Negative); Crystals Negative HPF (Negative); Mucus Negative (Negative)
--- NOTE | 2024-02-15 07:31 | W.ORTHOCONSU ---
Assessment and Plan Assessment and plan (1) Displaced fracture of right femoral neck: Status: Acute Assessment and plan: 83-year-old male with displaced right femoral neck fracture Surgery recommended both palliative and functional. Significant home oxygen requirement, pending cardiology evaluation for elevated troponins, electrolyte abnormalities from about 24 hours found down. Agree with [employer] evaluation: High?risk, should have surgery at a tertiary care facility. PFSH All Active Problems (Updated 02/15/24 @ 11:27 by Stephanie Walters MD) Displaced fracture of right femoral neck (Acute) HTN (hypertension) (Chronic) COPD without exacerbation (Acute) Sepsis (Acute) Acute hypoxic respiratory failure (Acute) Social History Smoking/Tobacco Use Status: Former Tobacco Use Smoking risk assessment performed?: Yes Alcohol Intake: never Drug use: Never Substance use type: does not use Housing: house Do you feel safe at home: Yes Do you feel safe in your relationship?: Yes Results Last Vital Signs Temp 97.7 F 02/15/24 05:09 Pulse 101 H 02/15/24 06:42 Resp 24 02/15/24 06:42 BP 124/73 02/15/24 06:42 Pulse Ox 79 L 02/15/24 06:42 Labs 02/15/24 05:17 02/15/24 08:55 Labs: Laboratory Results - last 24 hr 02/15/24 02/15/24 02/15/24 05:15 05:17 06:43 WBC 21.59 H RBC 5.01 Hgb 16.3 Hct 49.6 MCV 99 H MCH 32.5 MCHC 32.9 RDW 14.7 H Plt Count 167 MPV 11.0 Immature Gran % 0.0 Neutrophils % 90.0 Lymphocytes % 3.0 Monocytes % 7.0 Eosinophils % 0.0 Basophils % 0.0 Nucleated RBC % 0.0 Absolute Neutrophils 19.43 H Absolute Lymphocytes 0.65 L Absolute Monocytes 1.51 H Absolute Eosinophils 0.00 Absolute Basophils 0.00 RBC Morphology Normal VBG pH 7.34 VBG pCO2 58 H VBG pO2 23 VBG HCO3 32 H VBG Total CO2 28 VBG O2 Saturation 34 VBG Base Excess 6 H Sodium 142 Potassium 6.0 H Chloride 103 Carbon Dioxide 30.6 Anion Gap 8.4 BUN 63 H Creatinine 3.1 H Est GFR (CKD-EPI 2020) 18.97 Glucose 172 H Calcium 8.9 Total Bilirubin 0.72 AST 53 H ALT 97 H Alkaline Phosphatase 128 H Creatine Kinase 283 Troponin I 473 H* Total Protein 6.6 Albumin 2.9 L Amylase 76 Lipase 22 Urine Color Yellow Urine Clarity Sl Cloudy Urine pH 5.0 Ur Specific [place] 1.025 Urine Protein 100 H Urine Ketones Trace H Urine Blood Trace-intact H Urine Nitrite Negative Urine Bilirubin Small H Urine Urobilinogen 0.2 Ur Leukocyte Esterase Negative Urine RBC 0-2 Urine WBC 5-10 Ur Epithelial Cells Rare Urine Crystals Negative Urine Bacteria Many Urine Casts Negative Urine Mucus Negative Ur Culture Indicated? Yes Urine Glucose Negative COVID-19 Source Nasopharynx SARS-CoV-2 (PCR) Negative Influenza Type A (PCR) Negative Influenza Type B (PCR) Negative RSV (PCR) Negative
[2024-02-15] MEDS: LINEZOLID 600 MG/300 ML BAG 300 MG IVPB (07:55)
--- NOTE | 2024-02-15 08:12 | W.EDPROG ---
Date of service: 02/15/24 Time of Service: 08:13 Medical Decision Making Care assumed from off going provider. Patient is an 83-year-old gentleman that sustained a fall yesterday. He sat overnight in his recliner chair unable to get up. Initial evaluation revealed multiple abnormalities including femoral neck fracture, leukocytosis with left shift. Acute renal insufficiency with a creatinine of 3 and a potassium of 6. 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 Medications were given to shift the potassium. EKG was reviewed: Sinus 107 does have new T wave inversions and concern for elevated troponin, likely type II demand ischemia. He is not having any chest pains. At the time of signout, the patient had been evaluated by anesthesia and deemed not to be a surgical candidate at this facility. I have reached out to [facility] to proceed with transfer 0825 Repeat Repatha potassium result reviewed it is 5.3. Will give additional medications to shift potassium including albuterol, insulin, D50 and calcium given EKG changes. 0920 Declined for capacity at [facility] 0940 [facility] overcapacity but will try system and get back to me. 1035 Spoke with [facility] DrsLenny Tan (HM), Abdiaziz (Ortho), Dakota (Anesthesia)\. They will accept the patient for transfer . Lewis is in place to monitor UOP. 1125 Family at bedside reports he is not on eliquis and is also not compliant with aspirin. unknown last dose. they also report that he fell 2 days ago, not yesterday. which is more consistent with his overall decompensation. Quality:[facility] Health Related Social Needs: No Data to Display Sign Out Sign Out Data: Sign Out Comment: Decondition/fall/dwindles, down for 1 day, dehydrated, right femoral neck fracture. Has CHRISTIANO, troponinemia, T wave inversions, initial K 6.0 with no EKG changes. Soft pressure on arrival improved after fluids. -Received duoneb, 2L IVFB ordered, zosyn/zyvox. -Pending lactate, procal, confirmatory potassium, repeat BMP after fluids completed. -Needs transfer [facility] for operative repair Last updated by Farnaz Morales MD at 02/15/24 07:53 Discharge Plan Disposition Patient Disposition: Transfer-Acute Inpatient Care Specific Acute Inpt Facility: [facility] Condition: Fair Discharge Details Chief Complaint: Fall/Non TraumaCriteria Clinical Impression: Displaced fracture of right femoral neck, COPD without exacerbation, Sepsis Primary Care Provider: Suzie Quan ED Provider: Stephanie Walters Home Meds and New Rx's Prescriptions: No Action amlodipine 10 mg tablet 10 mg PO DAILY pantoprazole 40 mg tablet,delayed release (DR/EC) 40 mg PO DAILY metoprolol succinate 25 mg tablet extended release 24 hr 25 mg PO DAILY Patient Comments: TAKE 1 TABLET BY MOUTH DAILY aspirin [Adult Low Dose Aspirin] 81 mg tablet,delayed release (DR/EC) 81 mg PO DAILY docusate sodium [Col-Rite] 100 mg capsule 100 mg PO DAILY Anoro Ellipta 62.5-25 mcg/actuation blister with device 1 inh inhalation DAILY albuterol sulfate 90 mcg/actuation HFA aerosol inhaler 2 inh inhalation Q6H PRN levofloxacin 750 mg tablet 750 mg PO DAILY Qty: 10 0RF
[2024-02-15 08:21] LABS: Potassium 5.3 mmol/L (3.5-5.1)
[2024-02-15 08:32] LABS: Troponin I 493 ng/L (<or=76)
[2024-02-15] MEDS: Insulin REGULAR-Human 100 UNITS/ML UNIT IV (08:43)
[2024-02-15] MEDS: Dextrose 50%-Water 25 GM/50 ML SYR IVP (08:46)
[2024-02-15 08:49] LABS: Procalcitonin 3.14 ng/mL
[2024-02-15] MEDS: CALCIUM GLUCONATE in NaCl 1 GM/50 ML BAG IVPB (09:11)
[2024-02-15 09:23] LABS: Anion Gap 7.7 mmol/L (3-11); BUN 61 mg/dL (7-18); CO2 28.3 mmol/L (21.0-32.0); Calcium 7.4 mg/dL (8.5-10.1); Chloride 103 mmol/L (98-107); Estimated GFR 19.74 (mL/min/1.73m2); Glucose 370 mg/dL (74-106); Sodium 139 mmol/L (136-145)
--- NOTE | 2024-02-15 10:10 | NUR.NOTE ---
Nursing Note: Femoral nerve block R. Hip. Local Anestetic: 10:11:30 Needle In: 10:12:55 med delivered 10:19:48 needle out 10:21:50
--- NOTE | 2024-02-15 10:30 | W.ANESNERVE ---
Nerve Block Single Injection Procedure Date and Time Date Performed: 02/15/24 Procedure Start: 10:08 Location Where Procedure Performed Procedure Location: Emergency Department Reason Performed: Acute Pain Management Pain Diagnosis: Lower leg Pain (femoral fx) Requesting Provider: Stephanie Walters Timeout Performed Timeout Performed: Yes Monitoring Used ECG, Blood Pressure, SpO2 and See EMR for corresponding vital signs Sterility Sterility: Hand Hygiene, Surgical Cap, Surgical Mask, Sterile Gloves and Chlorhexidine Sedation Given During Procedure Sedation Given (Indicate Dose Given): No Sedation given Patient Mental Status Patient Mental Status: Awake Nerve Block 1st Nerve Block: Laterality: Right Block Type: Femoral Ultrasound Image Saved?: Yes Needle / Catheter Used: 100mm SonoPlex II Local Anesthetic Bolus (Indicate Dose Given): Lidocaine used for local infiltration of skin, Injected in 3-5ml increments after negative blood aspiration and Bupivacaine 0.375% Dose:: 20 mL Additives (Indicate Dose Given): None Ultrasound: Sterile probe cover and gel used Nerve Stimulator: Supplement to Ultrasound use and No twitch or parasthesia noted < 0.5 mA Paresthesia: None Procedure Tolerated: No Complications and Patient tolerated well Procedure Outcome: Successful Procedure Comment: Xray viewed; correct side discerned; time out performed; pt not on blood thinners Performed By: Zechariah Anand Supervised By: Saida oLpez
[2024-02-15] MEDS: dilTIAZem 25 MG/5 ML VIAL 20 MG IVP (10:54)
[2024-02-15] MEDS: Levalbuterol 1.25 MG/3 ML UPD VIAL (11:17)
== END 2024-02-15 12:40 | disposition short-term general hospital (02) ==
PROVIDERS: Student in an Organized Health Care Education/Training Program; Emergency Provider Emergency Medicine; PCP Family Medicine
DX: S72.091A Other fracture of head and neck of right femur, initial encounter for closed fracture (principal); J96.01 Acute respiratory failure with hypoxia; R65.20 Severe sepsis without septic shock; N17.9 Acute kidney failure, unspecified; J44.1 Chronic obstructive pulmonary disease with (acute) exacerbation; I71.43 Infrarenal abdominal aortic aneurysm, without rupture; I48.91 Unspecified atrial fibrillation; I10 Essential (primary) hypertension; Z99.81 Dependence on supplemental oxygen; Z79.82 Long term (current) use of aspirin; Z79.899 Other long term (current) drug therapy; Z87.891 Personal history of nicotine dependence; W18.39XA Other fall on same level, initial encounter; Y93.89 Activity, other specified; Y92.018 Other place in single-family (private) house as the place of occurrence of the external cause
CPT/HCPCS: 00123; 36415; 64447; 73552; 80048; 80053; 82550; 82805; 83690; 84145; 87040; 87637; 93005; 94640; 94761; 96361; 96365; 96366; 96368; 96375; 99285; 71046; 72170; 74176; 81003; 81015; 82150; 83605; 84132; 84484; 85025; 87086; 93010; J0613; J0665; J1815; J2020; J2543; J7614; J7620

== ENCOUNTER 2024-03-27 10:26 | Emergency (ER) | payer MEDICARE, SELFPAY ==
[2024-03-27] VITALS (21 sets, daily range): BP systolic 107–136; BP diastolic 46–90; PULSE 79–102; RESP 5–27; TEMP 36.6–36.7; O2SAT 79–98
--- NOTE | 2024-03-27 10:30 | RT.EKG_ITS ---
APPROVED REPORT Exam: Resting ECG Reason for Exam: AMS Patient Location: E HR:96 bpm ECG Measurements Heart Rate 96 AXIS ND 149 P 76 QRSd 115 QRS -31 QT 374 T 60 QTc 472 Conclusion Sinus rhythm...normal P axis, V-rate 60- 99 LAD, consider left anterior fascicular block...axis(240,-40), S>R II III aVF Low voltage, extremity leads...all extremity leads <0.5mV
--- NOTE | 2024-03-27 10:37 | ED.GENADUL_ITS ---
Discharge Plan Disposition Patient Disposition: Long-Term Facility(SNF) Condition: Stable Discharge Details Clinical Impression: COPD without exacerbation, Pneumonia Primary Care Provider: Suzie Quan ED Provider: Vinod Cortés [place] Meds and New Rx's Prescriptions: New prednisone 20 mg tablet 60 mg PO DAILY 4 Days Qty: 12 0RF levofloxacin 750 mg tablet 750 mg PO DAILY Qty: 5 0RF Continued pantoprazole 40 mg tablet,delayed release (DR/EC) 40 mg PO DAILY metoprolol succinate 25 mg tablet extended release 24 hr 25 mg PO DAILY Patient Comments: TAKE 1 TABLET BY MOUTH DAILY aspirin [Adult Low Dose Aspirin] 81 mg tablet,delayed release (DR/EC) 81 mg PO DAILY Anoro Ellipta 62.5-25 mcg/actuation blister with device 1 inh inhalation DAILY albuterol sulfate 90 mcg/actuation HFA aerosol inhaler 2 inh inhalation Q6H PRN acetaminophen 325 mg capsule 325 mg PO Q6H PRN apixaban 2.5 mg tablet 2.5 mg PO BID cholecalciferol (vitamin D3) 25 mcg (1,000 unit) capsule 25 mcg PO DAILY bisacodyl [Dulcolax (bisacodyl)] 10 mg suppository 10 mg NJ ONCE PRN guaifenesin 600 mg tablet extended release 12hr 600 mg PO BID PRN magnesium hydro suspension 2,400 mg PO .COMPLEX Rx Instructions: 2,400 mg orally 30 ML of 400mg/mL suspension if no BM in 3 days; 30 mL by mouth if no BM in 3 days tamsulosin 0.4 mg capsule 0.4 mg PO DAILY mirala 17 g PO PRN PRN Rx Instructions: give 17 g by mouth if no BM in 72 hr torsemide 20 mg tablet 20 mg PO DAILY Discontinued amlodipine 10 mg tablet 10 mg PO DAILY docusate sodium [Col-Rite] 100 mg capsule 100 mg PO DAILY Discharge Instructions Additional Instructions: You are being treated for a COPD exacerbation and pneumonia Take the prednisone levofloxacin daily as prescribed. He got a dose here so your next dose is until tomorrow Use either nebulizers or your albuterol inhaler every 4-6 hours as needed Follow-up with your primary care provider within 1 week if you feel more ill, have severe worsening Symptoms such as persistent vomiting reevaluation HPI General Mode of arrival: EMS . Date/Time Provider Initiated Documentation: 03/27/24 10:27 . Limitations to Documentation: no limitations . Information obtained by: patient . History of Present Illness 83 year old M presents to the emergency department with the chief complaint of dyspnea, cough, described as moderate, Patient started experiencing this day(s) (1) and it has been constant. Rest improves symptom(s), Movement worsens symptoms . Patient notes denies chest pain, fever/chills and nausea/vomiting. Patient did receive the following treatments prior to arrival, none Related Data Home Medications ?Medication ?Instructions ?Recorded ?Confirmed albuterol sulfate 90 mcg/actuation 2 inh inhalation Q6H PRN 01/16/24 03/27/24 aerosol inhaler aspirin 81 mg tablet,delayed 81 mg PO DAILY 01/16/24 03/27/24 release (Adult Low Dose Aspirin) umeclidinium 62.5 mcg-vilanterol 1 inh inhalation DAILY 01/16/24 03/27/24 25 mcg/actuation powdr for inhalation (Anoro Ellipta) metoprolol succinate 25 mg 25 mg PO DAILY 02/15/24 03/27/24 tablet,extended release 24 hr pantoprazole 40 mg tablet,delayed 40 mg PO DAILY 02/15/24 03/27/24 release acetaminophen 325 mg capsule 325 mg PO Q6H PRN 03/27/24 03/27/24 apixaban 2.5 mg tablet 2.5 mg PO BID 03/27/24 03/27/24 bisacodyl 10 mg rectal suppository 10 mg NJ ONCE PRN 03/27/24 03/27/24 (Dulcolax (bisacodyl)) cholecalciferol (vitamin D3) 25 25 mcg PO DAILY 03/27/24 03/27/24 mcg (1,000 unit) capsule guaifenesin 600 mg tablet, 600 mg PO BID PRN 03/27/24 03/27/24 extended release 12 hr levofloxacin 750 mg tablet 750 mg PO DAILY #5 tabs 03/27/24 magnesium hydro 2,400 mg PO .COMPLEX 03/27/24 03/27/24 mirala 17 g PO PRN PRN 03/27/24 03/27/24 prednisone 20 mg tablet 60 mg (3 x 20 mg) PO DAILY 4 days 03/27/24 #12 tabs tamsulosin 0.4 mg capsule 0.4 mg PO DAILY 03/27/24 03/27/24 torsemide 20 mg tablet 20 mg PO DAILY 03/27/24 03/27/24 Previous Rx's ?Medication ?Instructions ?Recorded levofloxacin 750 mg tablet 750 mg PO DAILY #5 tabs 03/27/24 prednisone 20 mg tablet 60 mg (3 x 20 mg) PO DAILY 4 days 03/27/24 #12 tabs Allergies Allergy/AdvReac Type Severity Reaction Status Date / Time No Known Allergies Allergy Verified 03/27/24 10:43 General TOMMY: 3 Review of Systems All systems reviewed & are unremarkable except as noted in HPI and below Constitutional Constitutional: Denies chills, Denies fever(s) and Denies weakness Cardiovascular Cardiovascular: Denies chest pain and Reports dyspnea Respiratory Respiratory: Reports cough and Reports dyspnea Gastrointestinal Gastrointestinal: Denies abdominal pain, Denies nausea and Denies vomiting Integumentary/Breasts Skin/Breast: Denies rash Neurologic Neurologic: Denies weakness Psychiatric Psychiatric: Denies depression Exam Const General: no acute distress Orientation: alert HENMT Head: normal to inspection Ears: external ears normal General nose exam: external nose normal Mouth: moist mucous membranes Eyes General: appearance normal, both eyes and all related structures Neck Neck: normal visual inspection Resp Auscultation: diminished lung sounds and wheezes Cardio Jugular venous pressure: no JVD Rate: regular rate Heart Sounds: no murmurs Skin General skin exam: no rashes or lesions noted Neuro General: patient alert and patient oriented x3 Extrem General: normal to inspection Psych Mental Status: mental status grossly normal Medical Decision Making 83-year-old male with a history of COPD chronically on oxygen who is at [facility] and rehab after he suffered a right hip fracture and was transferred to [facility] for operative repair of this, comes in from health and rehab with 1 day of worsening shortness of breath and cough and this morning was found to have decreased responsiveness. Patient is currently awake and oriented x 4. He says he feels mildly short of breath but otherwise feels well. He is normally on 3 to 5 L nasal cannula and currently is on 6 L to maintain oxygen saturation of 88 and above. He has wheezing at the apices bilaterally on lung exam and diminished breath sounds at the bases. He has no JVD or leg swelling or calf tenderness. I suspect COPD versus pneumonia. Given his age and history we will check CBC, CMp, troponins, procalcitonin, chest x-ray and treat with a DuoNeb and Solu-Medrol and reassess. He has no signs of DVT on exam and no pleuritic chest pain so unlikely PE. If no improvement with breathing treatments and no concerning findings on labs or x-ray if renal functions adequate we will consider doing a CTA. Labs show no emergent findings, has mild leukocytosis but is downtrending from last month. Metabolic panel unremarkable. X-ray shows a left lower lobe infiltrate. Patient feels significantly better, is eating and drinking and with no respiratory distress and is on his baseline 4 L nasal cannula maintaining oxygen saturations is 94%. Discussed with him observation admission versus discharge back to correction and he has decision-making capacity and request to be treated at the correction which I feel is reasonable given reassuring workup. Delta troponin is negative we will plan for discharge back and will put him on prednisone for 4 days and also start him on oral levofloxacin. Second troponin again negative, patient sleeping on reassessment awakens easily to voice. Given reassuring workup feel he can be discharged back to the correction, advised to follow-up with his PCP and return precautions given Differential Diagnosis Differential Diagnosis: COPD, pneumonia, CHF Medical Records Medical records reviewed: Yes I reviewed the patient's medical records. ECG Data Attestation: I personally reviewed and interpreted this ECG (s) as follows: Prior ECG tracings: available for review Interpretation: Sinus rhythm, rate of 96, NJ 149, no STEMI or significant changes from prior EKG Quality:SDOH Health Related Social Needs: No Data to Display PFSH All Active Problems (Updated 03/27/24 @ 12:44 by Vinod Cortés MD) Pneumonia (Acute) Displaced fracture of right femoral neck (Acute) COPD without exacerbation (Acute) Sepsis (Acute) Acute hypoxic respiratory failure (Acute) Social History Smoking/Tobacco Use Status: Former Tobacco Use Smoking risk assessment performed?: Yes Alcohol Intake: never Drug use: Never Substance use type: does not use Housing: house Do you feel safe at home: Yes Do you feel safe in your relationship?: Yes
--- OUTSIDE RECORDS SUMMARY | 2024-03-27 10:42 | XMS_ITS | Clinical Summary ---
Author Organization [facility] Address [address] [place] [address] Care Team Providers Care Decal Applier Name Role Phone Suzie Quan MD Primary Care Provider [phone] Allergies No known active allergies Medications metoprolol SUCCinate (TOPROL-XL) 25 mg tablet Take 1 Tablet by mouth daily. Active pantoprazole (PROTONIX) 40 mg tablet Take 1 Tablet by mouth daily before breakfast. Active aspirin chewable 81 mg tablet Take 1 Tablet by mouth daily. Active albuterol 90 mcg/actuation HFA aerosol inhaler inhaler Inhale 2 Puffs as directed 4 times daily. 02/11/20 24 Active ANORO ELLIPTA 62.5-25 mcg/actuation inhaler Inhale 1 Puff as directed daily. 09/10/19 24 Active apixaban (ELIQUIS) 2.5 mg tablet Take 1 Tablet by mouth 2 times daily. 02/29/20 24 Active cholecalcifero l, Vitamin D3, 50 mcg (2,000 unit) tablet Take 1 Tablet by mouth daily. 03/01/20 24 Active guaiFENesin (MUCINEX) 600 mg SR tablet Take 1 Tablet by mouth 2 times daily. 02/29/20 24 Active HYDROmorphone (DILAUDID) 2 mg tablet Take 1 Tablet by mouth every 4 hours as needed for up to 10 doses for Pain. Daily Max: 12 mg 10 Tablet 02/29/20 24 Active ipratropium-al buteroL (DUONEB) 0.5 mg-3 mg(2.5 mg base)/3 mL nebulizer solutionIndica tions:Pulmonar y emphysema, unspecified emphysema type (HCC-CMS) Take 3 mL by nebulization 4 times daily. 02/29/20 Active TAMSulosin (FLOMAX) 0.4 mg capsule Take 1 Capsule by mouth daily. 03/01/20 Active torsemide (DEMADEX) 20 mg tablet Take 1 Tablet by mouth daily. 03/01/20 Active amLODIPine (NORVASC) 10 mg tablet Take 1 Tablet by mouth daily. Discontinued nystatin (MYCOSTATIN) 100,000 unit/mL suspension Take 5 mL by mouth 4 times daily for 4 days. 80 mL 02/29/20 24 024 Active Problems Problem Noted Date Diagnosed Date PFO (patent foramen ovale) 02/27/2024 Atrial fibrillation ([facility]) 02/26/2024 Urinary retention 02/26/2024 Hypertension 02/26/2024 Thrush 02/26/2024 Osteoporosis with current pathological fracture 02/22/2024 Heart failure ([facility]) 02/16/2024 Pulmonary hypertension ([facility]) 02/16/2024 Chronic obstructive pulmonary disease ([facility]) 02/16/2024 Acute hypoxic respiratory failure ([facility]) 11/2023 Closed right hip fracture, initial encounter ( [facility]) 02/15/2024 Acute on chronic respiratory failure with hypoxia and hypercapnia ([facility]) 02/15/2024 Pneumonia due to infectious organism 02/15/2024 Encounters Date Type Department Care Team Description 03/14/2024 Orders Only [facility] Hand & Upper Extremity Program - [address] [place] [address] Ko Marquis PA-C Closed fracture of right hip with routine healing, subsequent encounter (Primary Dx) 02/27/2024 Telephone [facility] Endocrinology [address] [address] Farnaz Rivas, DO Follow-up; Returning Call 02/23/2024 Telephone [facility] Endocrinology [facility] [address] [place] [address] Farnaz Rivas, DO Appointment Related (Called and left message with referral department. With Dr. Quijano message://Farnaz Rivas, DO?Ashley Rae MA/Kevin, looks like patient still in hospital. Please see if PCP willing to address or we can see patient when he is able if desired, I'm happy to discuss with PCP if needed. Thanks!/) 02/17/2024 11:57 EST Anesthesia Event [facility] OR [address] [place], [place] [id number] Jason Morse MD 02/17/2024 11:30 EST - 02/17/2024 15:15 EST Surgery [facility] OR [address] [place] [id number] Augustine Ceja MD Open treatment of right femoral neck fracture with hemiarthroplasty [63165 (CPT??)] 02/16/2024 15:41 EST - 02/29/2024 12:20 EST Hospital Encounter [facility] General Medicine Unit [address] [place] [id number] Ritesh Cardenas MD Clements, Benjamin, MD Foerg, MD Taylor Marmolejo Jonathan R, MD Burgess, Lee-Anna, MD Farrell, Georgia, MD Closed right hip fracture, initial encounter ([facility]) (Primary Dx); Acute hypoxic respiratory failure ([facility]) [J96.01]; Osteoporosis with current pathological fracture, unspecified osteoporosis type, initial encounter; Chronic obstructive pulmonary disease, unspecified COPD type ([facility]) [J44.9]; Pulmonary hypertension ([facility]) [I27.20]; Atrial fibrillation, unspecified type ([facility]) [I48.91]; Urinary retention [R33.9]; Hypertension, unspecified type [I10]; Thrush [B37.0]; PFO (patent foramen ovale); Pulmonary emphysema, unspecified emphysema type ([facility]) Discharge Disposition: Nursing Facility (Skilled) 02/16/2024 Travel 02/15/2024 13:50 EST - 02/16/2024 14:[address] [facility] Intensive Care Unit [address] [place] [address] Homer Tan MD Gilkey, Calvin T, MD SwayzeEligio, Leda, MD Closed right hip fracture, initial encounter ([facility]) [S72.001A] (Primary Dx); Acute on chronic respiratory failure with hypoxia and hypercapnia ([facility]) [J96.21, J96.22]; Pneumonia due to infectious organism, unspecified laterality, unspecified part of lung [J18.9]; Heart failure, unspecified HF chronicity, unspecified heart failure type ([facility]); Pulmonary HTN ([facility]); Pulmonary emphysema, unspecified emphysema type ([facility]) Discharge Disposition: Short Term Hospital 02/15/2024 11:03 EST - 02/15/2024 13:49 EST Hospital Encounter [facility] [place] Discharge Disposition: Home or Self Care 02/15/2024 10:58 EST - 02/15/2024 11:02 EST Hospital Encounter [facility] [place] Discharge Disposition: Home or Self Care 02/15/2024 10:56 EST - 02/15/2024 10:57 EST Hospital Encounter [facility] [place] Discharge Disposition: Home or Self Care 02/15/2024 10:53 EST - 02/15/2024 10:55 EST Hospital Encounter [facility] [place] Discharge Disposition: Home or Self Care 02/15/[address] [facility] Orthopedics & Sport Medicine [address], [address] [place] [address] Buzz Freed MD Closed right hip fracture, initial encounter ([facility]) (Primary Dx) from Last 3 Months Surgical History Surgery Date Site/Laterality Comments HIP FRACTURE SURGERY 02/17/2024 Right hemiarthroplasty w/ Dr. Ceja Social History Tobacco Use Types Packs/Day Years Used Date Smoking Tobacco: Former Cigarettes Tobacco Cessation:Counseling Given: No Alcohol Use Standard Drinks/Week Comments Never 0 (1 standard drink = 0.6 oz pur e alcohol) [facility] Utilities Answer Date Recorded In the past 12 months has e electric, gas, oil, or water company threatened to shut off services in your home? No 02/16/2024 Hunger Vital Sign Answer Date Recorded Within the past 12 months, y ou worried that your food would run out before you got the money to buy more. Never true 02/16/20 24 Within the past 12 months, t he food you bought just didn't last and you didn't have money to get more. Never true 02/16/2024 PRAPARE - Transportation Answer Date Re corded In the past 12 months, has l ack of transportation kept you from medical appointments or from getting medications? No 11/2023 In the past 12 months, has l ack of transportation kept you from meetings, work, or from getting things needed for daily living? No 02/16/2024 Housing Stability Vital Sign Answer Jose e Recorded In the last 12 months, was t here a time when you were not able to pay the mortgage or rent on time? No 02/16/2024 In the past 12 months, how m any times have you moved where you were living? 0 02/16/2024 At any time in the past 12 m [facility], were you homeless or living in a chcf (including now)? No 02/16/2024 AHC - Inadequate Housing Answer Date Re corded What is your living situation today? I have a [facility] place to live 02/20/[address] you li ve. Do you have problems with any of the following? None of the above 02/20/2024 Interpersonal Safety Answer Date Record ed How often does anyone, [place], hit, punch or physically hurt you? 02/16/2024 How often does anyone, [place], insult, scream, curse or threaten to hurt you? 02/16/2024 Sex and Gender Information Value Date Recorded Sex Assigned at Not on file Legal Sex Male 9:25 EST Gender Identity Male 02/15/2024 14:44 EST Sexual Orientation Not on file Obstetrics History Last Filed Vital Signs Vital Sign Reading Time Taken Comments Blood Pressure 132/62 02/29/2024 0829 EST Pulse 90 02/28/2024 1330 EST Temperature 37.1 ??C (98.8 ??F) 02/29/2024 0527 EST Respiratory Rate 22 02/29/2024 0750 EST Oxygen Saturation 94% 02/29/2024 0753 EST Inhaled Oxygen Concentration - - Weight 59.9 kg (132 lb) 02/27/2024 1325 EST Height 175.3 cm (5' 9) 02/27/2024 1325 EST Body Mass Index 19.49 02/27/2024 1325 EST Plan of Treatment Upcoming Encounters Date Type Department Care Team (Late st Contact Info) Description 04/05/2024 10:15 EST Appointment [facility] Xray [address] [place], [place] [id number] 04/05/2024 10:30 EST Post-op Visit [facility] Orthopedic Trauma - [address] [address] Ko Marquis PA-C [address] [place] [address] Health Maintenance Due Date Last Done Comments Copd Action Plan 1938 Lung Function Test (Spirometry) 1938 Fall Risk Screening 2003 RSV Immunization ( o r 60+ Years) (1 - 1-dose 75+ series) 2013 COVID-19 Vaccine ( season) 2023 Post-Fragility Fracture Evaluation 02/15/2024 Medical Devices Implanted Type Area Supply Chain Generalist Device Identifier Shelf Expiration Date Model / Serial / Lot Cement Bone High Viscosity Tobramycin Radiopaque Single Dose [employer] 40gm Simplex [id number] - [id number] Implanted:Qty: 2 on 02/17/2024 by Augustine Ceja MD at [facility] Ortho Implant Right: Hip [facility] [id number] 08/07/2024 6197-9-00 6197-900 1 / [id number] Hip Femoral Stem Cmntd 132deg Std Offst Sz 4 [id number] Accolade C [id number] - [id number] Implanted:Qty: 1 on 02/17/2024 by Augustine Ceja MD at [facility] Total Joint Implant Right: Hip [employer] [id number] 01/01/2029 3349-0283 D / [id number] D / [id number] Hip Spacer Stem Distal Cemented 11mm Accolade [id number] - [id number] Implanted:Qty: 1 on 02/17/2024 by Augustine Ceja MD at [facility] Total Joint Implant Right: Hip [facility] [facility] [id number] 10/23/2028 5783-6923 / [id number] / [id number] Restrictor Cement Lynn 25mm Distal Fem Hip [facility] - [id number] Implanted:Qty: 1 on 02/17/2024 by Augustine Ceja MD at [facility] Total Joint Implant Right: Hip [employer] 09/19/2033 [id number] / [id number] / [id number] Hip Head Unipolar Cocr 53mm Unit[employer] [id number] - [id number] Implanted:Qty: 1 on 02/17/2024 by Augustine Ceja MD at [facility] Total Joint Implant Right: Hip [employer] [id number] 02/07/2028 6942-5-05 3 / 6942-5-05 [id number] Hip Taper Sleeve Standard Offset Femoral V40 [id number] - [id number] Implanted:Qty: 1 on 02/17/2024 by Augustine Ceja MD at [facility] Total Joint Implant Right: Hip [employer] [id number] 11/05/2028 6942-6-06 5 / 6942-6-06 5 / [id number] Procedures Procedure Name Priority Date/Time Associated Diagnosis Comments ECG REPORT - SCANNED 03/04/2024 11:39 EST ECG REPORT - SCANNED 03/04/2024 9:35 EST ECG REPORT - SCANNED 02/28/2024 10:36 EST COMPLETE BLOOD COUNT Routine 02/28/2024 10:26 EST BASIC METABOLIC PANEL (BMP) Routine 02/28/2024 10:26 EST NT PRO BNP Add-On 02/27/2024 15:55 EST BASIC METABOLIC PANEL (BMP) Routine 02/27/2024 15:55 EST TRANSTHORACIC ECHO (TTE) LIMITED Routine 02/27/2024 14:58 EST COMPLETE BLOOD COUNT Routine 02/26/2024 15:55 EST BASIC METABOLIC PANEL (BMP) Routine 02/26/2024 15:54 EST RESPIRATORY CARE EVALUATION ONLY Routine 02/26/2024 13:07 EST XR CHEST PORTABLE 1 VIEW Routine 02/26/2024 12:08 EST BASIC METABOLIC PANEL (BMP) Routine 02/24/2024 9:22 EST COMPLETE BLOOD COUNT Routine 02/24/2024 9:22 EST BASIC METABOLIC PANEL (BMP) Routine 02/23/2024 12:04 EST COMPLETE BLOOD COUNT Routine 02/23/2024 12:04 EST BASIC METABOLIC PANEL (BMP) Routine 02/22/2024 11:01 EST COMPLETE BLOOD COUNT Routine 02/22/2024 11:01 EST BASIC METABOLIC PANEL (BMP) Routine 02/21/2024 9:58 EST COMPLETE BLOOD COUNT Routine 02/21/2024 9:58 EST BASIC METABOLIC PANEL (BMP) Routine 02/20/2024 10:07 EST COMPLETE BLOOD COUNT Routine 02/20/2024 10:07 EST MRSA PCR Routine 02/20/2024 5:04 EST ECG REPORT - SCANNED 02/19/2024 14:12 EST WOUND EVALUATION AND TREAT Routine 02/19/2024 12:01 EST BASIC METABOLIC PANEL (BMP) Routine 02/19/2024 11:27 EST COMPLETE BLOOD COUNT Routine 02/19/2024 11:27 EST XR CHEST PORTABLE 1 VIEW STAT 02/18/2024 15:38 EST VITAMIN D (25,OH) Add-On 02/18/2024 6:2 8 EST COMPREHENSIVE METABOLIC PANEL (CMP) Routine 02/18/2024 6:28 EST COMPLETE BLOOD COUNT Routine 02/18/2024 6:28 EST POCT GLUCOSE, INTERFACED Routine 02/17/2024 17:48 EST XR HIP RIGHT 1 VIEW Routine 02/17/2024 1 5:20 EST Closed right hip fracture, initial encounter ([facility]) XR HIP LEFT 1 VIEW Routine 02/17/2024 15 :20 EST Closed right hip fracture, initial encounter ([facility]) ANESTHESIA ARTERIAL LINE PLACEMENT Routine 02/17/2024 13:05 EST ANESTHESIA SPINAL BLOCK Routine 02/17/20 24 12:25 EST OPEN TREATMENT, FRACTURE, FEMUR, NECK, WITH INTERNAL FIXATION OR INSERTION OF PROSTHETIC 02/17/2024 11:44 EST Closed right hip fracture, initial encounter ([facility]) PROTIME STAT 02/17/2024 11:41 EST POCT GLUCOSE, INTERFACED Routine 02/17/2024 5:58 EST MAGNESIUM Add-On 02/17/2024 5:58 EST COMPREHENSIVE METABOLIC PANEL (CMP) Routine 02/17/2024 5:58 EST COMPLETE BLOOD COUNT Routine 02/17/2024 5:58 EST MRSA PCR Routine 02/17/2024 5:53 EST POCT GLUCOSE, INTERFACED Routine 02/16/2024 23:45 EST TYPE AND SCREEN Routine 02/16/2024 20:[address] ANGIO CHEST PE PROTOCOL STAT 02/16/2024 18:51 EST XR HIP RIGHT 1 VIEW STAT 02/16/2024 1 7:54 EST XR HIP LEFT 2-3 VIEWS, OPTIONAL PELVIS STAT 02/16/2024 17:52 EST PROTIME Add-On 02/16/2024 17:00 EST PTT Add-On 02/16/2024 17:00 EST HEMOGLOBIN A1C Add-On 02/16/2024 17:00 EST COMPREHENSIVE METABOLIC PANEL (CMP) STAT 02/16/2024 17:00 EST COMPLETE BLOOD COUNT STAT 02/16/2024 17:00 EST PROCALCITONIN Routine 02/16/2024 17:00 EST HEPARIN LEVEL - UNFRACTIONATED HEPARIN STAT 02/16/2024 17:00 EST POCT GLUCOSE, INTERFACED Routine 02/16/2024 16:59 EST EKG 12-LEAD Routine 02/16/2024 16:44 EST EXPANDED RESPIRATORY VIRAL PANEL, PCR (DOES NOT INCLUDE INFLUENZA OR RSV) Routine 02/16/2024 12:07 EST POCT GLUCOSE, INTERFACED Routine 02/16/2024 11:39 EST MRSA PCR Routine 02/16/2024 11:36 EST LEGIONELLA ANTIGEN DETECTION, URINE Routine 02/16/2024 11:36 EST STREPTOCOCCUS PNEUMONIAE ANTIGEN, URINE Routine 02/16/2024 11:36 EST XR CHEST PORTABLE 1 VIEW STAT 02/16/2024 10:59 EST ECG REPORT - SCANNED 02/16/2024 10:05 EST TROPONIN I Routine 02/16/2024 9:34 EST TRANSTHORACIC ECHO (TTE) COMPLETE STAT 02/16/2024 6:35 EST POCT BLOOD GAS, CG8 I-STAT Routine 02/16/2024 5:41 EST CK Routine 02/16/2024 5:37 EST BASIC METABOLIC PANEL (BMP) Routine 02/16/2024 5:37 EST HN LAB CBC SMEAR REVIEW Today 02/16/20 5:36 EST COMPLETE BLOOD COUNT Routine 02/16/2024 5:36 EST WOUND EVALUATION AND TREAT Routine 02/16/2024 5:02 EST TROPONIN I Routine 02/16/2024 1:35 EST TROPONIN I Routine 02/15/2024 17:51 EST POCT BLOOD GAS, CG8 I-STAT Routine 02/15/2024 17:00 EST EKG 12-LEAD Routine 02/15/2024 16:26 EST POCT BLOOD GAS, CG8 I-STAT Routine 02/15/2024 15:20 EST NT PRO BNP Add-On 02/15/2024 15:19 EST COMPREHENSIVE METABOLIC PANEL (CMP) Add-On 02/15/2024 15:19 EST COMPLETE BLOOD COUNT AND DIFFERENTIAL Add-On 02/15/2024 15:19 EST HOLD LAVENDER TOP Routine 02/15/2024 15: 19 EST HOLD GREEN TOP Routine 02/15/2024 15:19 EST CK Routine 02/15/2024 15:19 EST SARS COV2, FLU A/B, RSV DETECT BY PCR Routine 02/15/2024 15:[address] OUTSIDE IMAGES ABDOMEN PELVIS Routine 02/15/2024 11:05 EST XR OUTSIDE IMAGES CHEST Routine 02/15/20 24 10:59 EST XR OUTSIDE IMAGES PELVIS Routine 02/15/2024 10:56 EST XR OUTSIDE IMAGES RIGHT LOWER EXTREMITY Routine 02/15/2024 10:54 EST from Last 3 Months Results * ECG REPORT - SCANNED (03/04/2024 11:39 EST) 03/04/2024 11:3 9 EST us Scan 2 Rope Tier PROCEDURE/MINOR SURGICAL OR DERABLES Final Result * ECG REPORT - SCANNED (03/04/2024 9:35 EST) 03/04/2024 9:35 EST us Scan 2 Rope Tier PROCEDURE/MINOR SURGICAL OR DERABLES Final Result * ECG REPORT - SCANNED (02/28/2024 10:36 EST) 02/28/2024 10:3 6 EST us Scan 2 Rope Tier PROCEDURE/MINOR SURGICAL OR DERABLES Final Result * (ABNORMAL) COMPLETE BLOOD COUNT (02/28/2024 10:26 EST) Only the most recent of12 resultswithin the time period is included. WBC 16.63(H) 4.00 - 10.40 K/cmm 02/28/2024 11:06 [facility] RBC 3.09(L) 4.36 - 5.78 M/cmm 02/28/2024 11:06 [facility] Hemoglobin 10.3(L) 13.8 - 17.3 g/dL 02/28/2024 11:06 [facility] HCT 30.5(L) 39.5 - 50.2 % 02/28/2024 11:06 [facility] MCV 99(H) 81 - 95 fL 02/28/2024 11:06 [facility] MCH 33.3(H) 27.6 - 33.0 pg 02/28/2024 11:06 [facility] MCHC 33.8 32.8 - 36.4 g/dL 02/28/2024 11:06 [facility] RDW-CV 15.2(H) <14.2 % 02/28/2024 11:06 [facility] RDW-SD 55.3(H) <46.0 fl 02/28/2024 11:06 [facility] PLT 362 141 - 377 K/cmm 02/28/2024 11:06 [facility] MPV 10.1 9.5 - 12.7 fL 02/28/2024 11:06 [facility] Blood VENOUS BLOOD / Unknown Venipuncture / Unknown 02/28/2024 10:26 EST 02/28/2024 10:54 EST us Pushpa Welch MD HEMATOLOGY & PF4 ORDERABLES F inal Result [facility] [address] [place] [address] * (ABNORMAL) BASIC METABOLIC PANEL (BMP) (02/28/2024 10:26 EST) Only the most recent of10 resultswithin the time period is included. Pathologist [facility] Sodium 137 136 - 145 mmol/L 02/28/2024 11:44 [facility] Potassium 3.7 3.5 - 5.0 mmol/L 02/28/2024 11:44 [facility] Chloride 95(L) 96 - 110 mmol/L 02/28/2024 11:44 [facility] CO2 Total 38(H) 22 - 32 mmol/L 02/28/2024 11:44 [facility] Anion Gap 4(L) 5 - 14 mmol/L 02/28/2024 11:44 [facility] Glucose 127(H) 70 - 99 mg/dl 02/28/2024 11:44 [facility] Calcium 8.4(L) 8.5 - 10.5 mg/dL 02/28/2024 11:44 [facility] BUN 34(H) 10 - 26 mg/dL 02/28/2024 11:44 [facility] Creatinine 1.32(H) 0.66 - 1.25 mg/dL 02/28/2024 11:44 [facility] eGFR 53(L) >60 mL/min/1.73 m2 02/28/2024 11:44 [facility] Blood VENOUS BLOOD / Unknown Venipuncture / Unknown 02/28/2024 10:26 EST 02/28/2024 10:55 EST us Pushpa Welch MD CHEMISTRY & BLOOD GAS ORDERAB LES Final Result [facility] [address] [place] [address] * (ABNORMAL) NT PRO BNP (02/27/2024 15:55 EST) Only the most recent of2 resultswithin the time period is included. Pathologist [facility] NT-pro BNP 1,210(H) <326 pg/mL 02/27/2024 16:57 [facility] Comment: In the acute setting NT-proBNP values <300 pg/mL have a 98% NPV for excluding acute heart failure. In outpatient populations, NT-proBNP values <125 have a 99% NPV for excluding heart failure. Blood VENOUS BLOOD / Unknown Venipuncture / Unknown 02/27/2024 15:55 EST 02/27/2024 16:02 EST us Bryan Weiss MD CHEMISTRY & BLOOD GAS ORDERABL ES Final Result [facility] [address] [place] [address] * TRANSTHORACIC ECHO (TTE) LIMITED W/DOPPLER W/CF W/ CONTRAST (02/27/2024 14:58 EST) LV Diastolic Volume 62 mL [facility] LV Systolic Volume 13 mL [facility] LV ejection fraction, 1-p A4C 69 % [facility] LV ID, ES, PLAX 2.0 2.1 - 4.0 cm [facility] LV PW thickness, ED, PLAX 1.0 0.6 - 1.1 cm [facility] LV ID, ED, PLAX 3.8 3.5 - 6.0 cm [facility] LV end-diastolic volume, 1-p A4C 48 ml [facility] IVS thickness, ED, PLAX 1.5 cm [facility] Anatomical Region Laterality Modality Ultrasound Narrative 02/27/2024 15:08 EST ?Left??Atrium: Left atrium was not well visualized. Image quality was suboptimal but there appeared to be a small patent foramen ovale visualized with predominant right to left shunting with agitated saline; this occurred late (> 10 beats at rest and > 5 beats with Valsalva maneuver). ?Pulmonic??Artery: Unable to assess PA pressure, due to suboptimal tricuspid regurgitation envelope. ?Right??Ventricle: The right ventricular cavity was severely dilated in size. Right ventricular systolic function was mildly to moderately reduced. ?Left??Ventricle: The left ventricular cavity was normal in size. Left ventricular systolic function was normal with an ejection fraction of 60-65%. There was mild hypertrophy of the left ventricle; moderate at LV basal septum. Left ventricular wall motion was normal; there were no regional wall motion abnormalities. There was both systolic and diastolic flattening of the interventricular septum consistent with right ventricle pressure and volume overload. Left Ventricle The left ventricular cavity was normal in size. Left ventricular systolic function was normal with an ejection fraction of 60-65%. There was mild hypertrophy of the left ventricle; moderate at LV basal septum. Left ventricular wall motion was normal; there were no regional wall motion abnormalities. There was both systolic and diastolic flattening of the interventricular septum consistent with right ventricle pressure and volume overload. Right Ventricle The right ventricular cavity was severely dilated in size. Right ventricular systolic function was mildly to moderately reduced. Left Atrium Left atrium was not well visualized. Image quality was suboptimal but there appeared to be a small patent foramen ovale visualized with predominant right to left shunting with agitated saline; this occurred late (> 10 beats at rest and > 5 beats with Valsalva maneuver). Right Atrium The right atrium was normal in size. Tricuspid Valve There was mild tricuspid valve regurgitation. Pericardium A trivial pericardial effusion was identified. Pulmonic Artery Unable to assess PA pressure, due to suboptimal tricuspid regurgitation envelope. Study Details Study status: Routine. Transthoracic echocardiography. M-Mode, complete 2D, complete spectral Doppler, and color Doppler.The study was interpreted by [facility]. Pertinent images and digital data are archived for permanent storage and are available for subsequent review. Scanning was performed from the apical, parasternal and subcostal acoustic windows. Definity and Saline (bubble) contrast was used during the study. Overall the study quality was adequate. The study was difficult due to patient clinical status and body habitus. Images were obtained using cardiac ultrasound machine EPIQ #14. us Pushpa Welch MD CARDIAC ECHO ORDERABLES Final Result * XR CHEST PORTABLE 1 VIEW (02/26/2024 12:08 EST) Anatomical Region Laterality Modality Computed Radiogr aphy 02/26/2024 12:1 6 EST Impressions 02/26/2024 12:16 EST New right upper and lower lobe airspace opacities which may represent aspiration pneumonitis. Small right effusion. [id number] Narrative 02/26/2024 12:16 EST XR CHEST PORTABLE 1 VIEW ??02/26/2024 12:08 PM Clinical History/comments: Hypoxia Comparison: February 18, 2024. Technique: Single portable AP view of the chest. Findings: Lines/tubes/devices: ??None Lungs: New airspace opacities in the right upper lobe, and right lower lobe which may present aspiration pneumonitis. Pleura: There is a small right effusion. Cardiac and mediastinal contours: Aortic atherosclerosis is present. Cardiac contour is within normal limits. Soft tissues and extrathoracic findings: ??Normal. Bones: Normal. Resulting Agency Comment [id number] Procedure Note Karo Schmidt MD - 02/26/2024 XR CHEST PORTABLE 1 VIEW 02/26/2024 12:08 PM Clinical History/comments: Hypoxia Comparison: February 18, 2024. Technique: Single portable AP view of the chest. Findings: Lines/tubes/devices: None Lungs: New airspace opacities in the right upper lobe, and right lowerlobe which may present aspiration pneumonitis. Pleura: There is a small right effusion. Cardiac and mediastinal contours: Aortic atherosclerosis is present.Cardiac contour is within normal limits. Soft tissues and extrathoracic findings: Normal. Bones: Normal. IMPRESSION New right upper and lower lobe airspace opacities which may representaspiration pneumonitis. Small right effusion. [id number] Pushpa Welch MD IMG DIAGNOSTIC IMAGING ORDERA BLES Final Result * MRSA PCR (02/20/2024 5:04 EST) Only the most recent of2 resultswithin the time period is included. MRSA/Staph aureus Result No Staphylococcus aureus detected by PCR 02/20/2024 13:18 EST [facility] Swab BOTH ANTERIOR NARES / Unknown Swab / Unknown 02/20/2024 5:04 EST 02/20/2024 7:15 EST Pete Miller DO MICROBIOLOGY - GENERAL ORDERABLE S Final Result [facility] [address] [place] [id number] * ECG REPORT - SCANNED (02/19/2024 14:12 EST) 02/19/2024 14:1 2 EST us Scan 2 Rope Tier PROCEDURE/MINOR SURGICAL OR DERABLES Final Result * XR CHEST PORTABLE 1 VIEW (02/18/2024 15:38 EST) Anatomical Region Laterality Modality Computed Radiogr aphy 02/18/2024 15:4 8 EST Impressions 02/18/2024 15:48 EST Bilateral small pleural effusions and bibasilar opacities compatible with atelectasis. [id number] Narrative 02/18/2024 15:48 EST XR CHEST PORTABLE 1 VIEW ??02/18/2024 3:24 PM Clinical History/comments: hypoxia Comparison: 02/16/2024. Technique: Single portable AP view of the chest. Findings: Lines/tubes/devices: ??None Lungs: Left greater than right basilar opacities Pleura: Bilateral pleural effusions Cardiac and mediastinal contours: Stable Soft tissues and extrathoracic findings: No acute abnormalities Bones: No acute abnormalities Resulting Agency Comment [id number] Procedure Note Gordo Palm MD - 02/18/2024 XR CHEST PORTABLE 1 VIEW 02/18/2024 3:24 PM Clinical History/comments: hypoxia Comparison: 02/16/2024. Technique: Single portable AP view of the chest. Findings: Lines/tubes/devices: None Lungs: Left greater than right basilar opacities Pleura: Bilateral pleural effusions Cardiac and mediastinal contours: Stable Soft tissues and extrathoracic findings: No acute abnormalities Bones: No acute abnormalities IMPRESSION Bilateral small pleural effusions and bibasilar opacities compatible withatelectasis. [id number] Marcos Quintero MD IM DIAGNOSTIC IMAGING OR DERABLES Final Result * VITAMIN D (25,OH) (02/18/2024 6:28 EST) 25OH Vitamin D Tot 38 30 - 100 ng/mL 02/19/2024 10:50 EST [facility] Comment: Vitamin D 25,OH Interpretive Ranges: Deficiency: ??<10.0 ng/mL Insufficiency: ??10.0 - 30.0 ng/mL Sufficiency: ??30.0 - 100.0 ng/mL Toxicity: ??>100.0 ng/mL Blood VENOUS BLOOD / Unknown Venipuncture / Unknown 02/18/2024 6:28 EST 02/18/2024 6:38 EST us Marcos Quintero MD CHEMISTRY & BLOOD GAS ORD ERABLES Final Result [facility] [address] [place] [address] * (ABNORMAL) COMPREHENSIVE METABOLIC PANEL (CMP) (02/18/2024 6:28 EST) Only the most recent of4 resultswithin the time period is included. Sodium 134(L) 136 - 145 mmol/L 02/18/2024 7:09 [facility] Potassium 4.5 3.5 - 5.0 mmol/L 02/18/2024 7:09 [facility] Chloride 97 96 - 110 mmol/L 02/18/2024 7:09 [facility] CO2 Total 36(H) 22 - 32 mmol/L 02/18/2024 7:09 [facility] Glucose 110(H) 70 - 99 mg/dl 02/18/2024 7:09 [facility] BUN 70(H) 10 - 26 mg/dL 02/18/2024 7:09 [facility] Creatinine 2.11(H) 0.66 - 1.25 mg/dL 02/18/2024 7:09 [facility] eGFR 30(L) >60 mL/min/1.7 3m2 02/18/2024 7:09 [facility] Total Protein 5.0(L) 6.3 - 8.2 g/dL 02/18/2024 7:09 [facility] Albumin 2.7(L) 3.4 - 4.9 g/dL 02/18/2024 7:09 [facility] Alkaline Phosphatase 80 38 - 126 U/L 02/18/2024 7:09 [facility] AST 33 15 - 46 U/L 02/18/2024 7:09 [facility] ALT 36 <50 U/L 02/18/2024 7:09 [facility] Bilirubin, Total <0.5 <1.4 mg/dL 02/18/20 7:09 [facility] Calcium 8.2(L) 8.5 - 10.5 mg/dL 02/18/2024 7:09 [facility] Albumin/Globulin Ratio 1.2 1.0 - 2.5 02/18/2024 7:09 [facility] Anion Gap 1(L) 5 - 14 mmol/L 02/18/2024 7:09 [facility] Blood VENOUS BLOOD / Unknown Venipuncture / Unknown 02/18/2024 6:28 EST 02/18/2024 6:38 EST Pete Miller DO CHEMISTRY & BLOOD GAS ORDERABLES Final Result Performing Organization Address [facility]/State/ZIP Co de Phone Number [facility] [address] [place] [id number] * POCT GLUCOSE, INTERFACED (02/17/2024 17:48 EST) Only the most recent of5 resultswithin the time period is included. Glucose, POC 84 70 - 100 mg/dL 02/17/2024 17:49 [facility] HN LAB POC COMMENT (GLUCOSE) Test Performed by Nursing Services 02/17/2024 17:49 [facility] Blood CAPILLARY BLOOD / Unknown 02/17/2024 17:48 EST 02/17/2024 17:49 EST Pete Miller DO POINT OF CARE TEST ORDERABLES Fi nal Result [facility] [address] [place] [address] * XR HIP RIGHT 1 VIEW (02/17/2024 15:20 EST) Anatomical Region Laterality Modality Lower Extremities Right Computed Radio graphy 02/17/2024 16:1 3 EST Impressions 02/17/2024 16:13 EST FINDINGS/IMPRESSION: 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 No periprosthetic fracture is seen. No acute left hip abnormality is seen. Atherosclerotic calcifications are present bilaterally. [id number] Narrative 02/17/2024 16:13 EST XR HIP RIGHT 1 VIEW, XR HIP LEFT 1 VIEW02/17/2024 3:20 PM SIGNS & SYMPTOMS / COMMENTS: Closed right hip fx s/p Open treatment of right femoral neck fracture with hemiarthroplasty - Right *Done in OR* COMPARISON: 02/16/2024 TECHNIQUE: AP radiograph of the right hip and AP radiograph of the left hip on a supine AP view of the lower pelvis. Procedure Note Gordo Palm MD - 02/17/2024 XR HIP RIGHT 1 VIEW, XR HIP LEFT 1 VIEW02/17/2024 3:20 PM SIGNS & SYMPTOMS / COMMENTS: Closed right hip fx s/p Open treatment ofright femoral neck fracture with hemiarthroplasty - Right *Done in OR* COMPARISON: 02/16/2024 TECHNIQUE: AP radiograph of the right hip and AP radiograph of the lefthip on a supine AP view of the lower pelvis. IMPRESSION FINDINGS/IMPRESSION: 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 Noperiprosthetic fracture is seen. No acute left hip abnormality is seen. Atherosclerotic calcifications arepresent bilaterally. [id number] us Augustine Ceja MD IM DIAGNOSTIC IMAGING OR DERABLES Final Result * XR HIP LEFT 1 VIEW (02/17/2024 15:20 EST) Anatomical Region Laterality Modality Lower Extremities Left Computed Radio graphy 02/17/2024 16:1 3 EST Impressions 02/17/2024 16:13 EST FINDINGS/IMPRESSION: 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 No periprosthetic fracture is seen. No acute left hip abnormality is seen. Atherosclerotic calcifications are present bilaterally. [id number] Narrative 02/17/2024 16:13 EST XR HIP RIGHT 1 VIEW, XR HIP LEFT 1 VIEW02/17/2024 3:20 PM SIGNS & SYMPTOMS / COMMENTS: Closed right hip fx s/p Open treatment of right femoral neck fracture with hemiarthroplasty - Right *Done in OR* COMPARISON: 02/16/2024 TECHNIQUE: AP radiograph of the right hip and AP radiograph of the left hip on a supine AP view of the lower pelvis. Resulting Agency Comment [id number] Procedure Note Gordo Palm MD - 02/17/2024 XR HIP RIGHT 1 VIEW, XR HIP LEFT 1 VIEW02/17/2024 3:20 PM SIGNS & SYMPTOMS / COMMENTS: Closed right hip fx s/p Open treatment ofright femoral neck fracture with hemiarthroplasty - Right *Done in OR* COMPARISON: 02/16/2024 TECHNIQUE: AP radiograph of the right hip and AP radiograph of the lefthip on a supine AP view of the lower pelvis. IMPRESSION FINDINGS/IMPRESSION: 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 Noperiprosthetic fracture is seen. No acute left hip abnormality is seen. Atherosclerotic calcifications arepresent bilaterally. [id number] us Augustine Ceja MD IMG DIAGNOSTIC IMAGING OR DERABLES Final Result * [place] ARTL CATHJ/CANNULJ MNTR/TRANSFUSION SPX PRQ (02/17/2024 13:05 EST) N[facility]ative [facility] - 02/17/2024 13:05 EST Jason Morse MD ? 02/17/2024 14:40 Arterial Line Placement Date/Time: 02/17/2024 13:05 Staffing Performed: anesthesiologist and resident/OPHTHALMOLOGIST RETINA SPECIALIST/AA Performed by: Jason Morse MD Authorized by: Jason Morse MD ?? Consent: Verbal consent obtained. Written consent obtained. Consent given by: patient Patient understanding: patient states understanding of the procedure being performed Patient consent: the patient's understanding of the procedure matches consent given Procedure consent: procedure consent matches procedure scheduled Relevant documents: relevant documents present and verified Test results: test results available and properly labeled Site marked: the operative site was not marked Imaging studies: imaging studies not available Patient identity confirmed: arm band and hospital-assigned identification number Preparation: Patient was prepped and draped in the usual sterile fashion. Indications: hemodynamic monitoring Location: right radial Anesthesia: local infiltration Anesthesia: Local Anesthetic: lidocaine 1% without epinephrine Anesthetic total: 3 mL Sedation: Patient sedated: yes Sedation type: anxiolysis Sedatives: see MAR for details Needle gauge: 20 Seldinger technique: Seldinger technique used Number of attempts: 2 Ultrasound Guided? noPost-procedure: line sutured and dressing applied Patient tolerance: patient tolerated the procedure well with no immediate complications us Jason Morse MD ANESTHESIA ORDERABLES Final Result [facility] POINT OF CARE * NJ AN SPINAL BLOCK - CATHETER (02/17/2024 12:25 EST) Narrative Lio Billings AA - 02/17/2024 12:25 EST Lio Billings AA ? 02/17/2024 12:28 Spinal Block Start time: 02/17/2024 12:27 End time: 02/17/2024 12:27 Reason for Procedure: ??surgical anesthesia Staffing Performed: resident/OPHTHALMOLOGIST RETINA SPECIALIST/AA and anesthesiologist Performed by: Lio Billings AA Authorized by: Jason Morse MD ?? Preanesthetic Checklist Completed: patient identified, IV checked, risks and benefits discussed, surgical consent, monitors and equipment checked, pre-op evaluation and timeout performed Spinal Block Patient position: left lateral decubitus Prep: ChloraPrep, site prepped and draped, skin prep agent completely dried prior to procedure, sterile gloves, mask used and subcutaneous lidocaine Patient monitoring: heart rate, continuous pulse ox and BP cuff Patient sedation: anxiolysis Approach: midline Location: L4-5 Injection technique: catheter Needle Needle type: Tuohy Needle gauge: 17 G Catheter at skin depth: 9 cm Assessment Events: no paresthesia us Jason Morse MD ANESTHESIA ORDERABLES Final Result * PROTIME (02/17/2024 11:41 EST) Only the most recent of2 resultswithin the time period is included. I.N.R. 1.0 0.9 - 1.1 Ratio 02/17/2024 12:08 EST [facility] Pro Time 11.2 9.7 - 12.8 secs 02/17/2024 12:08 EST [facility] Blood VENOUS BLOOD / Unknown Venipuncture / Unknown 02/17/2024 11:41 EST 02/17/2024 11:50 EST Narrative [facility] - 02/17/2024 12:08 EST Moderate Intensity Coumadin INR = 2.0-3.0 Adjustments in anticoagulant therapy dose should be based on the INR and NOT on the Protime. us Jason Morse MD HEMATOLOGY & PF4 ORDERABLES Final Result Performing Organization Address City/[facility]/ZIP Co de Phone Number [facility] [address] [place] [address] * MAGNESIUM (02/17/2024 5:58 EST) Pathologist [facility] Magnesium 2.1 1.7 - 2.8 mg/dL 02/17/2024 7:11 EST [facility] Blood VENOUS BLOOD / Unknown Venipuncture / Unknown 02/17/2024 5:58 EST 02/17/2024 6:07 EST us Marti Horn MD CHEMISTRY & BLOOD GAS ORDERABLES Final Result [facility] [address] [place] [address] * TYPE AND SCREEN (02/16/2024 20:00 EST) ABO O 02/16/2024 21:54 EST [facility] Rh Factor Positive 02/16/2024 21:54 [facility] Antibody Screen Negative 02/16/2024 21:54 [facility] Specimen Expires: 02/19/2024 @ 23:59 02/16/2024 21:54 [facility] Blood VENOUS BLOOD / Unknown Venipuncture / Unknown 02/16/2024 20:00 EST 02/16/2024 20:09 EST us Ritesh Cardenas MD BLOOD BANK TESTS Edited Resul t - Final [facility] [address] [place], [place] [id number] * CT ANGIO CHEST PE PROTOCOL (02/16/2024 18:51 EST) Anatomical Region Laterality Modality Chest Computed Tomogra phy 02/17/2024 10:0 3 EST Impressions 02/17/2024 10:03 EST 1. ??No evidence of pulmonary embolism. 2. ??Patchy opacity in the periphery of the right middle lobe, lingula and posterior segment of the right upper lobe, favored to reflect atelectasis, although superimposed infection is not excluded. 3. ??Large mucous plugs in the trachea and occluding several segmental bronchi to the lower lobes bilaterally. 4. ??1.1 cm spiculated lung nodule in the lingula, concerning for infectious process or malignancy. Recommend follow-up chest CT following treatment to document resolution vs persistence in 1 to 3 months. 5. ??Moderate bilateral pleural effusions. 6. ??Severe atherosclerosis of the thoracic aorta and its branch vessels, with ulcerated plaque in the distal arch and descending thoracic aorta. 7. ??Severe coronary artery and aortic valve calcification. 8. ?? I have personally reviewed the images and the above interpretation and agree with the findings. [id number] Narrative 02/17/2024 10:[address] ANGIO CHEST PE PROTOCOL ??02/16/2024 6:33 PM Clinical History/Comments: AHRF, rule out PE; Pulmonary embolism (PE) suspected, low to intermediate prob, positive D-dimer; AHRF, rule out PE Technique: CT angiogram of the chest was performed with the IV administration of contrast material during the pulmonary arterial phase of enhancement. 3D advanced post-processing was performed utilizing a combination of MIP and MPR techniques with physician participation and supervision. This CT used either dose modulation and/ or iterative reconstruction techniques to lower radiation dose. Comparison: CT outside abdomen pelvis 02/15/2024. Findings: Opacification of the pulmonary vasculature is good no acute or chronic emboli are seen within the pulmonary arterial vasculature. Lower neck: Normal. Mediastinum and nilesh (non-vascular): No enlarged mediastinal or hilar lymph nodes. ??The esophagus appears normal. Cardiovascular: Cardiac chambers and great vessels are normal in size. Severe atherosclerosis of the thoracic aorta and its branch vessels, with extensive ulcerated plaque involving the distal arch and descending thoracic aorta which is mildly dilated measuring up to 3.5 cm in caliber. Severe coronary artery calcium. Aortic valve calcifications. Lungs and airways: Large mucous in the trachea on series 404, image 207. The remaining airways are thickened and mucous plugs occludes several segmental bronchi most severe in the lower lobes bilaterally. Severe pulmonary emphysema. Patchy opacity in the periphery of the proximal right middle lobe, lingula and posterior segment of the right upper lobe. Biapical and peripheral lung pleural parenchymal scarring. 0.5 cm nodule in the inferior lingula. Spiculated lung nodule in the proximal lingula on series 404, image 355 measuring 1.1 x 1.0 cm. Pleura: Moderate bilateral pleural effusions. Scarring along the bilateral fissures. Upper abdomen (limited to upper abdomen, not optimized for abdominal imaging): Gaseous distention of the colon. Severe calcific atherosclerosis of the abdominal aorta and its imaged branch vessels. Right hepatic cysts. Chest wall soft tissues: Diffuse chest wall subcutaneous edema. Bones: No suspicious osseous lesions. Multilevel degenerative changes. Resulting Agency Comment [id number] Procedure Note Sonia Salazar MD - 02/17/2024 CT ANGIO CHEST PE PROTOCOL 02/16/2024 6:33 PM Clinical History/Comments: AHRF, rule out PE; Pulmonary embolism (PE) suspected, low to intermediateprob, positive D-dimer; AHRF, rule out PE Technique: CT angiogram of the chest was performed with the IV administration ofcontrast material during the pulmonary arterial phase of enhancement. 3Dadvanced post-processing was performed utilizing a combination of MIP andMPR techniques with physician participation and supervision. This CT used either dose modulation and/ or iterative reconstructiontechniques to lower radiation dose. Comparison: CT outside abdomen pelvis 02/15/2024. Findings: Opacification of the pulmonary vasculature is good no acute or chronicemboli are seen within the pulmonary arterial vasculature. Lower neck: Normal. Mediastinum and nilesh (non-vascular): No enlarged mediastinal or hilarlymph nodes. The esophagus appears normal. Cardiovascular: Cardiac chambers and great vessels are normal in size.Severe atherosclerosis of the thoracic aorta and its branch vessels, withextensive ulcerated plaque involving the distal arch and descendingthoracic aorta which is mildly dilated measuring up to 3.5 cm in caliber.Severe coronary artery calcium. Aortic valve calcifications. Lungs and airways: Large mucous in the trachea on series 404, image 207.The remaining airways are thickened and mucous plugs occludes severalsegmental bronchi most severe in the lower lobes bilaterally. Severepulmonary emphysema. Patchy opacity in the periphery of the proximal rightmiddle lobe, lingula and posterior segment of the right upper lobe.Biapical and peripheral lung pleural parenchymal scarring. 0.5 cm nodule in the inferior lingula. Spiculated lung nodule in theproximal lingula on series 404, image 355 measuring 1.1 x 1.0 cm. Pleura: Moderate bilateral pleural effusions. Scarring along the bilateralfissures. Upper abdomen (limited to upper abdomen, not optimized for abdominalimaging): Gaseous distention of the colon. Severe calcific atherosclerosisof the abdominal aorta and its imaged branch vessels. Right hepaticcysts. Chest wall soft tissues: Diffuse chest wall subcutaneous edema. Bones: No suspicious osseous lesions. Multilevel degenerative changes. IMPRESSION 1. No evidence of pulmonary embolism. 2. Patchy opacity in the periphery of the right middle lobe, lingula andposterior segment of the right upper lobe, favored to reflect atelectasis,although superimposed infection is not excluded. 3. Large mucous plugs in the trachea and occluding several segmentalbronchi to the lower lobes bilaterally. 4. 1.1 cm spiculated lung nodule in the lingula, concerning forinfectious process or malignancy. Recommend follow-up chest CT followingtreatment to document resolution vs persistence in 1 to 3 months. 5. Moderate bilateral pleural effusions. 6. Severe atherosclerosis of the thoracic aorta and its branch vessels,with ulcerated plaque in the distal arch and descending thoracic aorta. 7. Severe coronary artery and aortic valve calcification. 8. I have personally reviewed the images and the above interpretation andagree with the findings. [id number] us Pete Miller DO IMG CT ORDERABLES Final Result * XR HIP RIGHT 1 VIEW (02/16/2024 17:54 EST) Anatomical Region Laterality Modality Lower Extremities Right Computed Radio graphy 02/16/2024 18:2 7 EST Impressions 02/16/2024 18:27 EST Findings/impression: Redemonstrated right femoral neck fracture, not significantly changed. No left- sided hip fracture or dislocation. Mild degenerative changes of the left hip. The soft tissues are unremarkable. [id number] Narrative 02/16/2024 18:27 EST XR HIP LEFT 2-3 VIEWS OPTIONAL PELVIS, XR HIP RIGHT 1 VIEW ??02/16/2024 5:52 PM Signs and Symptoms/Comments: right hip pain Comparison: Pelvic x-ray 02/15/2024. Technique: AP orthopedic view of the pelvis which includes an AP view of both hips, with additional AP view of the left hip. Resulting Agency Comment [id number] Procedure Note Sonia Salazar MD - 02/16/2024 XR HIP LEFT 2-3 VIEWS OPTIONAL PELVIS, XR HIP RIGHT 1 VIEW 02/16/2024 5:52PM Signs and Symptoms/Comments: right hip pain Comparison: Pelvic x-ray 02/15/2024. Technique: AP orthopedic view of the pelvis which includes an AP view ofboth hips, with additional AP view of the left hip. IMPRESSION Findings/impression: Redemonstrated right femoral neck fracture, not significantly changed. Noleft- sided hip fracture or dislocation. Mild degenerative changes of theleft hip. The soft tissues are unremarkable. [id number] us Ritesh Cardenas MD IMG DIAGNOSTIC IMAGING ORDERA BLES Final Result * XR HIP LEFT 2-3 VIEWS OPTIONAL PELVIS (02/16/2024 17:52 EST) Anatomical Region Laterality Modality Lower Extremities Left Computed Radio graphy 02/16/2024 18:2 7 EST Impressions 02/16/2024 18:27 EST Findings/impression: Redemonstrated right femoral neck fracture, not significantly changed. No left- sided hip fracture or dislocation. Mild degenerative changes of the left hip. The soft tissues are unremarkable. [id number] Narrative 02/16/2024 18:27 EST XR HIP LEFT 2-3 VIEWS OPTIONAL PELVIS, XR HIP RIGHT 1 VIEW ??02/16/2024 5:52 PM Signs and Symptoms/Comments: right hip pain Comparison: Pelvic x-ray 02/15/2024. Technique: AP orthopedic view of the pelvis which includes an AP view of both hips, with additional AP view of the left hip. Procedure Note Sonia Salazar MD - 02/16/2024 XR HIP LEFT 2-3 VIEWS OPTIONAL PELVIS, XR HIP RIGHT 1 VIEW 02/16/2024 5:52PM Signs and Symptoms/Comments: right hip pain Comparison: Pelvic x-ray 02/15/2024. Technique: AP orthopedic view of the pelvis which includes an AP view ofboth hips, with additional AP view of the left hip. IMPRESSION Findings/impression: Redemonstrated right femoral neck fracture, not significantly changed. Noleft- sided hip fracture or dislocation. Mild degenerative changes of theleft hip. The soft tissues are unremarkable. [id number] us Ritesh Cardenas MD IMG DIAGNOSTIC IMAGING ORDERA BLES Final Result * (ABNORMAL) PROCALCITONIN (02/16/2024 17:00 EST) Procalcitonin 0.96(H) See Note ng/mL 02/16/2024 18:25 EST [facility] Comment: NOTE: Reference Range: <0.5 ng/mL - Low risk of severe sepsis >2.0 ng/mL - High risk of severe sepsis Blood VENOUS BLOOD / Unknown Venipuncture / Unknown 02/16/2024 17:00 EST 02/16/2024 17:15 EST us Pete Miller DO CHEMISTRY & BLOOD GAS ORDERABLES Final Result [facility] [address] [place] [address] * (ABNORMAL) PTT (02/16/2024 17:00 EST) PTT 20(L) 26 - 37 secs 02/16/2024 18:17 EST [facility] Blood VENOUS BLOOD / Unknown Venipuncture / Unknown 02/16/2024 17:00 EST 02/16/2024 17:30 EST Ritesh Cardenas MD HEMATOLOGY & PF4 ORDERABLES F inal Result Performing Organization Address City/[facility]/ZIP Co de Phone Number [facility] [address] [place] [address] * HEPARIN LEVEL - UNFRACTIONATED HEPARIN (02/16/2024 17:00 EST) [facility] Heparin Level-UFH 0.05 Therapeutic Range: 0.30 - 0.70 IU/mL 02/16/2024 18:22 EST [facility] Comment:Unfractionated hepar in therapeutic range = 0.3-0.7 IU/ml - This test is not intended for monitoring direct Xa inhibitors, direct thrombin inhibitors, or fondaparinux.- Exogenous ATIII is NOT supplied in this assay. For unexpected or persistently low levels, consider measuring patient's ATIII level. Results will be overestimated in the presence of direct Xa inhibitors (rivaroxaban, apixaban, edoxaban). Blood VENOUS BLOOD / Unknown Venipuncture / Unknown 02/16/2024 17:00 EST 02/16/2024 17:30 EST us Pete Miller DO HEMATOLOGY & PF4 ORDERABLES Saadia l Result Performing Organization Address City/[facility]/ZIP Co de Phone Number [facility] [address] [place] [address] * (ABNORMAL) HEMOGLOBIN A1C (02/16/2024 17:00 EST) Pathologist [facility] Hemoglobin A1c 6.1(H) <5.7 % 02/16/2024 21:15 EST [facility] Comment: Glycemic Status References: Normal: ??<5.7% Pre-Diabetes: ??5.7% - 6.4% Diagnostic of Diabetes: ??> or = 6.5% (if confirmed) Est Avg Glucose 128 mg/dL 21:15 EST [facility] Comment:The eAG represents t he A1c result expressed as average glucose in mg/dL. Blood VENOUS BLOOD / Unknown Venipuncture / Unknown 02/16/2024 17:00 EST 02/16/2024 17:16 EST us Pete Anson DO CHEMISTRY & BLOOD GAS ORDERABLES Final Result [facility] [address] [place] [address] * EKG 12-LEAD (02/16/2024 16:44 EST) 02/16/2024 16:4 4 EST Narrative [facility] EKG - 02/28/2024 10:28 EST ? [facility] ? Test Date: ?2024-02-16 Pat Name: ? BI SUE ? Department: ?? [facility] 4 ? Room: ? M415 Gender: ? Male ? Recorder Of Deeds: ?? : ?1940 ? Requested By: HEARD PETE Order Number: [id number] ? Zulay CLEMONS: ?? IMANI LOMAS MD ? Measurements Intervals ?[place] ? Rate: ? 104 ?P: ?73 [place]: ? 147 ?QRS: ?-58 QRSD: ? 127 ?T: ?61 QT: ? 365 ? QTc: ?482 ? Interpretive Statements SINUS TACHYCARDIA WITH FREQUENT SUPRAVENTRICULAR PREMATURE COMPLEXES Right bundle branch block LEFT ANTERIOR FASCICULAR BLOCK ST DEVIATION AND MARKED T-WAVE ABNORMALITY, CONSIDER ANTEROLATERAL ISCHEMIA Compared to ECG 02/15/2024 16:26:30 Left anterior fascicular block now present T-wave abnormality still present Possible ischemia still present This is a preliminary report. ??Edited by CRISTELA TERRY MD on 02-21-2024 20:18:03 EST. I reviewed the tracing and have either agreed or edited the findings in this report. Electronically Signed On 02-28-2024 10:28:35 EST by IMANI LOMAS MD. Procedure Note Imani Lomas MD - 02/28/2024 [facility] Test Date: 2024-02-16 Pat Name: BI SUE Department: [place] [address] Room: [facility] Gender: Male Recorder Of Deeds: : 1940 Requested By: JESUS FREEMAN Order Number: [id number] Reading MD: IMANI LOMAS MD Measurements Intervals [place] Rate: 104 P: 73 [place]: 147 QRS: -58 QRSD: 127 T: 61 QT: 365 QTc: 482 Interpretive Statements SINUS TACHYCARDIA WITH FREQUENT SUPRAVENTRICULAR PREMATURE COMPLEXES Right bundle branch block LEFT ANTERIOR FASCICULAR BLOCK ST DEVIATION AND MARKED T-WAVE ABNORMALITY, CONSIDER ANTEROLATERALISCHEMIA Compared to ECG 02/15/2024 16:26:30 Left anterior fascicular block now present T-wave abnormality still present Possible ischemia still present This is a preliminary report. Edited by CRISTELA TERRY MD [id number] 20:18:03 EST. I reviewed the tracing and have either agreed or edited the findings inthis report. Electronically Signed On 02-28-2024 10:28:35 EST by CAPO CLEMONS. us Pete Miller DO CARDIAC ECG ORDERABLES Final Res ult [facility] EKG * EXPANDED RESPIRATORY VIRAL PANEL, PCR (DOES NOT INCLUDE INFLUENZA OR RSV) (02/16/2024 12:07 EST) Paraflu Type 1 Rslt (PF1RES) Negative Negative 02/17/2024 1:26 EST [facility] Paraflu Type 2 Rslt (PF2RES) Negative Negative 02/17/2024 1:26 EST [facility] Paraflu Type 3 Rslt (PF3RES) Negative Negative 02/17/2024 1:26 EST [facility] Paraflu Type 4 Rslt Negative Negative 02/16 1:26 EST [facility] Rhinovirus RNA Rslt (RVRES) Negative Negative 02/17/2024 1:26 [facility] Metapneumovirus RNA Rslt (HMVRES) Negative Negative 02/17/2024 1:26 [facility] Adenovirus DNA Rslt (ADVRES) Negative Negative 02/17/2024 1:26 [facility] Swab NASOPHARYNGEAL STRUCTURE / Unknown Swab / Unknown 02/16/2024 12:07 EST 02/16/2024 12:39 EST Dominique Goldstein MD MICROBIOLOGY - GENERAL ORDERABLE S Final Result [facility] [address] [place] [id number] * MRSA PCR (02/16/2024 11:36 EST) MRSA PCR Not Detected Not Detected 02/16/2024 13:27 EST [facility] Comment:MRSA target DNA is n ot detected (presumed not colonized with MRSA). Swab BOTH ANTERIOR NARES / Unknown Swab / Unknown 02/16/2024 11:36 EST 02/16/2024 11:45 EST Dominique Goldstein MD MICROBIOLOGY - GENERAL ORDERABLE S Final Result Performing Organization Address City/[facility]/ZIP Co de Phone Number [facility] [address] [place] [address] * STREPTOCOCCUS PNEUMONIAE ANTIGEN, URINE (02/16/2024 11:36 EST) Strep Pneumo Ag Detection, Urine Negative Negative 02/16/2024 12:33 EST [facility] Urine URINE / Unknown Urine Collect / Unknown 02/16/2024 11:36 EST 02/16/2024 11:45 EST Narrative LAB[facility] - 02/16/2024 12:33 EST Presumptive negative for pneumococcal pneumonia, suggesting no current or recent infection. ??Infection due to S.pneumoniae cannot be ruled out since the antigen present in the sample may be below detection limit of the test. Dominique Goldstein MD MICROBIOLOGY - GENERAL ORDERABLE S Final Result Performing Organization Address [facility] de Phone Number LAB[facility]ORY [facility] [address] [place] [address] * LEGIONELLA ANTIGEN DETECTION, URINE (02/16/2024 11:36 EST) Legionella Antigen Detection Negative Negative 02/16/2024 12:33 EST [facility] Urine URINE / Unknown Urine Collect / Unknown 02/16/2024 11:36 EST 02/16/2024 11:45 EST Narrative LAB[facility] - 02/16/2024 12:33 EST Negative for L.pneumophilia serogroup 1 antigen, suggesting no recent or current infection. ??Infection due to Legionella cannot be ruled out since other serogroups and species may cause disease, antigen may not be present in urine in early infection, and the level of antigen present in the urine may be below the detection limit of the test. Dominique Goldstein MD MICROBIOLOGY - GENERAL ORDERABLE S Final Result Performing Organization Address [facility] Co de Phone Number LAB[facility]ATORY [facility] [address] [place] [phone] * XR CHEST PORTABLE 1 VIEW (02/16/2024 10:59 EST) Anatomical Region Laterality Modality Computed Radiogr aphy 02/16/2024 11:0 5 EST Impressions 02/16/2024 11:05 EST Small bilateral pleural effusions. Slight interval increase in patchy airspace opacities at both lung bases and in the suprahilar right lung. [id number] Narrative 02/16/2024 11:05 EST XR CHEST PORTABLE 1 VIEW ??02/16/2024 10:40 AM Clinical History/comments: acute hypoxia Comparison: 02/15/2024. Technique: Single portable AP view of the chest. Findings: Lines/tubes/devices: ??None Lungs and pleura: Small bilateral pleural effusions. Slight interval increase in patchy airspace opacities in both lung bases and in the suprahilar right lung. No pneumothorax Cardiac and mediastinal contours: Normal. Soft tissues and extrathoracic findings: ??Normal. Bones: Normal. Resulting Agency Comment [id number] Procedure Note Aaron Boone MD - 02/16/2024 XR CHEST PORTABLE 1 VIEW 02/16/2024 10:40 AM Clinical History/comments: acute hypoxia Comparison: 02/15/2024. Technique: Single portable AP view of the chest. Findings: Lines/tubes/devices: None Lungs and pleura: Small bilateral pleural effusions. Slight intervalincrease in patchy airspace opacities in both lung bases and in thesuprahilar right lung. No pneumothorax Cardiac and mediastinal contours: Normal. Soft tissues and extrathoracic findings: Normal. Bones: Normal. IMPRESSION Small bilateral pleural effusions. Slight interval increase in patchyairspace opacities at both lung bases and in the suprahilar right lung. [id number] us Leda Ng MD IMG DIAGNOSTIC IMAGING OR DERABLES Final Result * ECG REPORT - SCANNED (02/16/2024 10:05 EST) 02/16/2024 10:0 5 EST us Scan 2 Rope Tier PROCEDURE/MINOR SURGICAL OR DERABLES Final Result * (ABNORMAL) TROPONIN I (02/16/2024 9:34 EST) Only the most recent of3 resultswithin the time period is included. Troponin I (ng/mL) 0.244(H) <0.034 ng/mL 02/16/2024 10:14 EST [facility] Blood VENOUS BLOOD / Unknown Venipuncture / Unknown 02/16/2024 9:34 EST 02/16/2024 9:40 EST Narrative LAB[facility] - 02/16/2024 10:14 EST The results of this assay can be falsely lowered due to the consumption of Biotin. us Krystian Anne MD CHEMISTRY & BLOOD GAS ORDERAB LES Final Result [facility] [address] [place] [address] * TRANSTHORACIC ECHO (TTE) COMPLETE W/DOPPLER W/CF NO CONTRAST (02/16/2024 6:35 EST) Triscuspid Valve Regurgitation Peak Gradient 73.5 mmHg [facility] Mitral deceleration time 187 ms [facility] LV Diastolic Volume 71 mL [facility] LV Systolic Volume 21 mL [facility] Mitral A-wave peak velocity 0.8 m/s [facility] Mitral E-wave peak velocity 0.5 m/s [facility] Stroke volume (SV), LVOT DP 44 ml [facility] LVOT VTI, S 14.0 cm [facility] PO INT OF CARE LVOT peak velocity, S 1.0 m/s [facility] LVOT area 3.1 cm2 [facility] PO[facility] T [facility] LVOT ID, S 2.0 cm [facility] POI NT OF CARE AV LVOT peak gradient 4 mmHg [facility] TR Peak David 4.3 m/s [facility] PO INT OF CARE LVOT mean gradient, S 2 mmHg [facility] LV ejection fraction, 1-p A4C 53 % [facility] T [facility] Aortic valve area 1.8 cm2 [facility] LV ID, ES, PLAX 2.5 2.1 - 4.0 cm [facility] LV PW thickness, ED, PLAX 0.9 0.6 - 1.1 cm [facility] LV ID, ED, PLAX 4.0 3.5 - 6.0 cm [facility] LV E/e', lateral 11.0 [facility] Pulmonic valve mean velocity, S 1 cm/s [facility] LV end-diastolic volume, 1-p A4C 37 ml [facility] Stroke index (SV/bsa) LVOT DP 26.0 ml/m2 [facility] LV E/e', lateral 4.5 [facility] LV E/e', medial 8.3 [facility]INT [facility] LV e', lateral 11.00 cm/s [facility] LV e', medial 6.00 cm/s [facility] LVOT mean velocity, S 0.7 m/s [facility] IVS thickness, ED, PLAX 1.1 cm [facility] LV E/e', average 6 [facility] Mitral E/A ratio, peak 0.60 [facility] Aortic root ID 2.9 cm [facility] Anatomical Region Laterality Modality Ultrasound Narrative 02/16/2024 9:27 EST ?Left??Ventricle: Left ventricular systolic function was hyperdynamic with an ejection fraction =>65%. Left ventricular wall motion was normal; there were no regional wall motion abnormalities. ?Right??Ventricle: The right ventricular cavity was severely dilated in size. Right ventricular systolic function was moderately reduced. ?Pulmonic??Artery: Pulmonary systolic pressure was severely increased, estimated to be 75 mmHg + right atrial pressure. Left Ventricle The left ventricular cavity was normal in size. Left ventricular systolic function was hyperdynamic with an ejection fraction =>65%. Left ventricular wall thickness was normal. Left ventricular wall motion was normal; there were no regional wall motion abnormalities. Right Ventricle The right ventricular cavity was severely dilated in size. Right ventricular systolic function was moderately reduced. Right ventricular wall thickness was normal. Left Atrium The left atrium was normal in size. Right Atrium The right atrium was normal in size. IVC/SVC The inferior vena cava was not well visualized. Mitral Valve Mitral valve structure was normal. There was mild posterior annular calcification. There was no significant mitral valve stenosis or regurgitation. Tricuspid Valve Tricuspid valve structure was normal. There was mild tricuspid valve regurgitation. There was no tricuspid valve stenosis. Aortic Valve The aortic valve was not well visualized. Unable to determine leaflet number. The aortic leaflets moderately calcified. Excursion appears reduced, however not well visualized. Unable to assess aortic valve stenosis due to poor Doppler exam. There was no significant aortic valve regurgitation. Pulmonic Valve There was no significant pulmonic valve regurgitation. There was no pulmonic valve stenosis. Ascending Aorta The aorta was not well visualized. Pericardium A trivial pericardial effusion was identified. Pulmonic Artery Pulmonary systolic pressure was severely increased, estimated to be 75 mmHg + right atrial pressure. Study Details Study status: Routine. Transthoracic echocardiography. M-Mode, complete 2D, complete spectral Doppler, and color Doppler.Scanning was performed from the apical, parasternal, subcostal and suprasternal acoustic windows. Overall the study quality was adequate. Images were obtained using cardiac ultrasound machine [id number]. us Homer Tan MD CARDIAC ECHO ORDERABLES Final R esult * (ABNORMAL) POCT BLOOD GAS, CG8 I-STAT (02/16/2024 5:41 EST) Only the most recent of3 resultswithin the time period is included. pH, Venous, i-STAT 7.44(H) 7.31 - 7.41 02/16/2024 5:43 [facility] pCO2, Venous, i-STAT 45 41 - 51 mmHg 02/16/2024 5:43 [facility] pO2, Venous, i-STAT 41 30 - 50 mmHg 02/16/2024 5:43 [facility] TCO2, Venous, i-STAT 32(H) 22 - 28 mmol/L 02/16/2024 5:43 [facility] O2 Saturation, Venous, i-STAT 78 60 - 85 % 02/16/2024 5:43 [facility] Base Excess(+) / Deficit(-), Venous, i-STAT 6(H) -2 - 3 mmol/L 02/16/2024 5:43 [facility] Blood VENOUS BLOOD / Unknown 02/16/2024 5:41 EST 02/16/2024 5:43 EST [facility] - 02/16/2024 5:43 EST Test Performed by Respiratory us Lacey Hassan DO POINT OF CARE TEST ORDERABL ES Final Result LAB[facility]ORY [facility] [address] [place] [address] * CK (02/16/2024 5:37 EST) Only the most recent of2 resultswithin the time period is included. CK 114 <=250 U/L 02/16/2024 6:05 [facility] Comment:Moderate hemolysis i dentified, interpret with caution as results may be affected due to hemolysis. Blood VENOUS BLOOD / Unknown Venipuncture / Unknown 02/16/2024 5:37 EST 02/16/2024 5:43 EST Krystian Anne MD CHEMISTRY & BLOOD GAS ORDERAB LES Final Result Performing Organization Address [facility]/ZIP Co de Phone Number LABORATORY SERVICES [address] [place] [phone] * HN LAB CBC SMEAR REVIEW (02/16/2024 5:36 EST) Pathologist [facility] Differential Comment Slide was examined by a technologist to verify the WBC and/or platelet count. 02/16/2024 6:01 [facility] Blood VENOUS BLOOD / Unknown Venipuncture / Unknown 02/16/2024 5:36 EST 02/16/2024 5:43 EST Homer Tan MD HEMATOLOGY & PF4 ORDERABLES Fin al Result Performing Organization Address [facility] Co de Phone Number LABORATORY SERVICES [address] [place] [address] * EKG 12-LEAD (02/15/2024 16:26 EST) 02/15/2024 16:2 6 EST Narrative [facility] - 02/16/2024 9:57 EST ? [facility] ? Test Date: ?2024-02-15 Pat Name: ? BI SUE ? Department: ? Room: ? 305 Gender: ? Male ? Recorder Of Deeds: ?? CS : ?1940 ? Requested By: YURY DOMINIQUE Order Number: [id number] ? Reading MD: ?? CARLOS ALBERTO RODOLFO MD ? Measurements Intervals ?[place] ? Rate: ? 110 ?P: ?77 NJ: ? 138 ?QRS: ?-19 QRSD: ? 120 ?T: ?84 QT: ? 362 ? QTc: ?489 ? Interpretive Statements Sinus tachycardia Low voltage QRS Right bundle branch block T wave abnormality, consider ischemia No previous ECG available for comparison I reviewed the tracing and have either agreed or edited the findings in this report. Electronically Signed On 02-16-2024 09:57:05 EST by CARLOS ALBERTO REYNOLDS MD. Procedure Note Carlos Alberto Reynolds MD - 02/16/2024 [facility] Test Date: 2024-02-15 Pat Name: BI SUE Department: Room: [facility] Gender: Male Recorder Of Deeds: : 1940 Requested By: YURY NAYLOR Order Number: [id number] Reading MD: CARLOS ALBERTO REYNOLDS MD Measurements Intervals [place] Rate: 110 P: 77 NJ: 138 QRS: -19 QRSD: 120 T: 84 QT: 362 QTc: 489 Interpretive Statements Sinus tachycardia Low voltage QRS Right bundle branch block T wave abnormality, consider ischemia No previous ECG available for comparison I reviewed the tracing and have either agreed or edited the findings inthis report. Electronically Signed On 02-16-2024 09:57:05 EST by CARLOS ALBERTO FRANCOIS. us Dominique Goldstein MD CARDIAC ECG ORDERABLES Final Res ult [facility] * HOLD [facility] (02/15/2024 15:19 EST) Hold Hold 02/15/2024 16:31 EST LAB[facility]ATORY SERVICES Blood VENOUS BLOOD / Unknown Venipuncture / Unknown 02/15/2024 15:19 EST 02/15/2024 15:25 EST Krystian Anne MD LAB INFO SERVICE AND SUPPORT & PHONE RESULT Final Result LAB[facility]ORY [facility] [address] [place] [address] * HOLD [place] (02/15/2024 15:19 EST) Hold Hold 02/15/2024 16:31 [facility] Blood VENOUS BLOOD / Unknown Venipuncture / Unknown 02/15/2024 15:19 EST 02/15/2024 15:25 EST us Krystian Anne MD LAB INFO SERVICE AND SUPPORT & PHONE RESULT Final Result [facility] [address] [place] [address] * (ABNORMAL) COMPLETE BLOOD COUNT AND DIFFERENTIAL (02/15/2024 15:19 EST) WBC 21.84(H) 4.00 - 10.40 K/cmm 02/15/2024 16:30 [facility] RBC 4.54 4.36 - 5.78 M/cmm 02/15/2024 16:30 [facility] Hemoglobin 14.5 13.8 - 17.3 g/dL 02/15/2024 16:30 [facility] HCT 44.8 39.5 - 50.2 % 02/15/2024 16:30 [facility] MCV 99(H) 81 - 95 fL 02/15/2024 16:30 [facility] MCH 31.9 27.6 - 33.0 pg 02/15/2024 16:30 [facility] MCHC 32.4(L) 32.8 - 36.4 g/dL 02/15/2024 16:30 [facility] RDW-CV 14.9(H) <14.2 % 02/15/2024 16:30 [facility] RDW-SD 54.5(H) <46.0 fl 02/15/2024 16:30 [facility] PLT 151 141 - 377 K/cmm 02/15/2024 16:30 [facility] MPV 11.6 9.5 - 12.7 fL 02/15/2024 16:30 [facility] % Neutrophils 89.3 Not Indicated % 02/15/2024 16:30 [facility] % Lymphocytes 3.1 Not Indicated % 02/15/2024 16:30 [facility] % Monocytes 6.6 Not Indicated % 02/15/2024 16:30 [facility] % Eosinophils 0.0 Not Indicated % 02/15/2024 16:30 [facility] % Basophils 0.2 Not Indicated % 02/15/2024 16:30 [facility] % Immature Grans 0.8 <0.9 % 02/15/2024 16:30 [facility] Absolute Neutrophils 19.49(H) 2.20 - 8.85 K/cmm 02/15/2024 16:30 [facility] Absolute Lymphocytes 0.67(L) 1.09 - 3.30 K/cmm 02/15/2024 16:30 [facility] Absolute Monocytes 1.45(H) 0.10 - 0.80 K/cmm 02/15/2024 16:30 [facility] Absolute Eosinophils 0.00(L) 0.03 - 0.61 K/cmm 02/15/2024 16:30 [facility] ABS Basophils 0.05 0.01 - 0.11 K/cmm 02/15/2024 16:30 [facility] Absolute Immature Grans 0.18(H) 0.00 - 0.06 K/cmm 02/15/2024 16:30 [facility] Type of Differential: Auto 02/15/2024 16:30 [facility] Blood VENOUS BLOOD / Unknown Venipuncture / Unknown 02/15/2024 15:19 EST 02/15/2024 15:25 EST us Dominique Goldstein MD PACKAGES & DNA PROBE ORDERABLES Final Result Performing Organization Address City/[facility] Co de Phone Number LAB[facility]ATORY SERVICES [address] [place] [address] * SARS COV2, FLU A/B, RSV DETECT BY PCR (02/15/2024 15:13 EST) FLU A RNA Result (FLARES) Negative Negative 02/15/2024 16:22 [facility] FLU B RNA Result (FLBRES) Negative Negative 02/15/2024 16:22 [facility] RSV RNA Result (RSVRES) Negative Negative 02/15/2024 16:22 [facility] COVID-19 rt-PCR Result Negative Negative 02/15/2024 16:22 [facility] Comment: The 2019 novel coronavirus (SARS-CoV-2) target nucleic acids are not detected. Performed on the [employer] Gene[employer]pert Instrument Swab NASOPHARYNGEAL STRUCTURE / Unknown Swab / Unknown 02/15/2024 15:13 EST 02/15/2024 15:18 EST us Krystian Anne MD MICROBIOLOGY - GENERAL ORDERA BLES Final Result Performing Organization Address [facility] Co de Phone Number LAB[facility]ATORY SERVICES [address] [place] [address] * CT OUTSIDE IMAGES ABDOMEN PELVIS (02/15/2024 11:05 EST) Narrative 02/15/2024 11:05 EST This is a non-reportable exam. us External Imaging IMG OTHER IMAGING ORDERABLES Fi nal Result * XR OUTSIDE IMAGES CHEST (02/15/2024 10:59 EST) Narrative 02/15/2024 10:59 EST This is a non-reportable exam. us External Imaging IMG OTHER IMAGING ORDERABLES Fi nal Result * XR OUTSIDE IMAGES PELVIS (02/15/2024 10:56 EST) Narrative 02/15/2024 10:56 EST This is a non-reportable exam. us External Imaging IMG OTHER IMAGING ORDERABLES Fi nal Result * XR OUTSIDE IMAGES RIGHT LOWER EXTREMITY (02/15/2024 10:54 EST) Narrative 02/15/2024 10:54 EST This is a non-reportable exam. us External Imaging IMG OTHER IMAGING ORDERABLES Fi nal Result from Last [address] [place] [address] [address] MEDICARE MEDICARE [place] [address] [place] [address] [place] [address] [place] [address] [place] [address] [place] [address] Advance Directives For more information, please contact: [phone] * Limitation of Treatment (Latest Code Status on File) Date Activated Date Inactivated Comments 02/16/2024 16:13 02/29/2024 14:21 Question Answer Comments When the patient has NO PULSE: DNR When the patient HAS A PULSE and is in respiratory distress/failure: Do not intubate (DNI) Who Made the Decision? Patient * Limitation of Treatment Date Activated Date Inactivated Comments 02/15/2024 18:53 02/16/2024 15:41 Question Answer Comments When the patient has NO PULSE: DNR When the patient HAS A PULSE and is in respiratory distress/failure: Do not intubate (DNI) Who Made the Decision? Patient * Full Code Date Activated Date Inactivated Comments 02/15/2024 11:31 02/15/2024 18:53 Question Answer Comments When the patient has NO PULSE: Full Code / CPR Who Made the Decision? Default/Not Discussed Care Teams Decal Applier Relationship Specialty Start Date End Date Suzie Quan MD [address] [place] [address] PCP - General Family Medicine - Primary Care 02/15/24
--- OUTSIDE RECORDS SUMMARY | 2024-03-27 10:42 | XMS_ITS | Encounter Summary ---
Author Organization [facility] Address [address] [place] [address] Care Team Providers Care Retort Engineer Name Role Phone Suzie Quan MD Primary Care Provider [phone] Encounter Details Date Type Department Care Team (Late st Contact Info) Description 03/14/2024 Orders Only [facility] Hand & Upper Extremity Program - [address] [place] [address] Ko Marquis PA-C [address] [place] [address] Closed fracture of right hip with routine healing, subsequent encounter (Primary Dx) Social History Tobacco Use Types Packs/Day Years Used Date Smoking Tobacco: Former Cigarettes Alcohol Use Standard Drinks/Week Comments Never 0 (1 standard drink = 0.6 oz pur e alcohol) [facility] Utilities Answer Date Recorded In the past 12 months has e [employer], gas, oil, or water [employer] threatened to shut off services in your [...] any time in the past 12 m ont, were you homeless or living in a long-term (including now)? No 02/16/2024 [facility] - Inadequate Housing Answer Date Re corded What is your living situation today? I have a [facility] place to live 02/20/2024 Think about [...] 14:44 EST Sexual Orientation Not on file documented as of this encounter Functional Status * Are you deaf or do you have serious difficulty hearing? Answer Date of Assessment Author No 02/16/2024 16:00 Suma Flores RN * Are you blind or do you have serious difficulty seeing, even when wearing glasses? Answer Date of Assessment Author Yes 02/16/2024 16:00 Suma Flores RN * Do you have serious difficulty walking or climbing stairs? (5 years old or older) Answer Date of Assessment Author Yes 02/16/2024 16:00 Suma Flores RN * Do you have difficulty dressing or bathing? (5 years old or older) Answer Date of Assessment Author Yes 02/16/2024 16:00 Suma Flores RN * Because of a physical, mental, or emotional condition, do you have difficulty doing errands alone such as visiting a doctor's office or shopping? (15 years old or older) Answer Date of Assessment Author No 02/16/2024 16:00 Suma Flores RN documented as of this encounter Mental Status * Because of a physical, mental, or emotional condition, do you have serious difficulty concentrating, remembering, or making decisions? (5 years old or older) Answer Entry Date Author No 02/16/2024 16:00 Suma Flores RN documented in this encounter Plan of Treatment Upcoming Encounters Date Type Department Care Team (Late st Contact Info) Description 04/05/2024 10:15 EST Appointment [facility] Xray [address] [place] [address] 04/05/2024 10:30 EST Post-op Visit [facility] Orthopedic Trauma - [address] [address] Ko Marquis PA-C [address] [place] [id number] Scheduled Orders Name Type Priority Associated Diagnoses Orde r Schedule XR HIP RIGHT 2-3 VIEWS OPTIONAL PELVIS Imaging Routine Closed fracture of right hip with routine healing, subsequent encounter Expected: 04/05/2024 documented as of this encounter Visit Diagnoses Diagnosis Closed fracture of right hip with routine healing, subsequent encounter- Primary documented in this encounter Care Teams Retort Engineer Relationship Specialty Start Date End Date Suzie Quan MD [address] [place] [id number] PCP - General Family Medicine - Primary Care 02/15/24 documented as of this encounter
--- OUTSIDE RECORDS SUMMARY | 2024-03-27 10:42 | XMS_ITS | Referral Summary ---
Author Organization [facility] Address [address] [place] [address] Care Team Providers Care Systems Eng Name Role Phone Suzie Quan MD Primary Care Provider [phone] Encounters Date Type Department Care Team Description 03/14/2024 Orders Only [facility] Hand & Upper Extremity Program - An [address] [place] [address] Ko Marquis PA-C Closed fracture of right hip with routine healing, subsequent encounter (Primary Dx) 02/16/2024 15:41 EST - 02/29/2024 12:20 EST Hospital Encounter [facility] General Medicine Unit [address] [place] [address] Ritesh Cardenas MD Clements, MD Ingrid Hauser, MD Taylor Marmolejo, MD Manav Vargas Lee-Anna, MD Farrell, [place], MD Closed right hip fracture, initial encounter ([facility]) (Primary Dx); Acute hypoxic respiratory failure ([facility]) [J96.01]; Osteoporosis with current pathological fracture, unspecified osteoporosis type, initial encounter; Chronic obstructive pulmonary disease, unspecified COPD type ([facility]) [J44.9]; Pulmonary hypertension ([facility]) [I27.20]; Atrial fibrillation, unspecified type ([facility]) [I48.91]; Urinary retention [R33.9]; Hypertension, unspecified type [I10]; Thrush [B37.0]; PFO (patent foramen ovale); Pulmonary emphysema, unspecified emphysema type ([facility]) Discharge Disposition: Nursing Facility (Skilled) 02/27/2024 Telephone [facility] [address] [place] [address] Farnaz Rivas, DO Follow-up; Returning Call 02/23/2024 Telephone [facility] [address] [place] [address] Farnaz Rivas, DO Appointment Related (Called and left message with referral department. With Dr. Quijano message://Farnaz Rivas, DO?Ashley Rae MA/Kevin, looks like patient still in hospital. Please see if PCP willing to address or we can see patient when he is able if desired, I'm happy to discuss with PCP if needed. Thanks!/) 02/17/2024 11:57 EST Anesthesia Event [facility] OR [address] [place] [address] Jason Morse MD 02/17/2024 11:30 EST - 02/17/2024 15:15 EST Surgery [facility] OR [address] [place] [id number] Augustine Ceja MD Open treatment of right femoral neck fracture with hemiarthroplasty [41065 (CPT??)] 02/16/2024 Travel 02/15/2024 13:50 EST - 02/16/2024 14:42 EST Hospital Encounter [facility] Intensive Care Unit [address] [place] [address] Homer Tan MD Gilkey, Calvin T, MD Swayze-Quinn, Hannah, MD Closed right hip fracture, initial encounter ([facility]) [S72.001A] (Primary Dx); Acute on chronic respiratory failure with hypoxia and hypercapnia ([facility]) [J96.21, J96.22]; Pneumonia due to infectious organism, unspecified laterality, unspecified part of lung [J18.9]; Heart failure, unspecified HF chronicity, unspecified heart failure type ([facility]); Pulmonary HTN (HCC-CMS); Pulmonary emphysema, unspecified emphysema type ([facility]) Discharge Disposition: Short Term Hospital 02/15/2024 Prep for Procedure [facility] Orthopedics & Sport Medicine [address] [place] [address] Buzz Freed MD Closed right hip fracture, initial encounter ([facility]) (Primary Dx) 02/15/2024 11:03 EST - 02/15/2024 13:49 EST Hospital Encounter [facility] [place] Discharge Disposition: Home or Self Care 02/15/2024 10:58 EST - 02/15/2024 11:02 EST Hospital Encounter [facility] [place] Discharge Disposition: Home or Self Care 02/15/2024 10:56 EST - 02/15/2024 10:57 EST Hospital Encounter [facility] [place] Discharge Disposition: Home or Self Care 02/15/2024 10:53 EST - 02/15/2024 10:55 EST Hospital Encounter [facility] [place] Discharge Disposition: Home or Self Care from Last 3 Months Allergies No known active allergies Medications metoprolol [...] solutionIndica tions:Pulmonar y emphysema, unspecified emphysema type ([facility]) Take 3 mL by nebulization 4 times [...] daily for 4 days. 80 mL 02/29/20 Active Problems Problem Noted Date Diagnosed Date PFO (patent foramen ovale) 02/27/2024 Atrial fibrillation ([facility]) 02/26/2024 Urinary retention 02/26/2024 Hypertension 02/26/2024 Thrush 02/26/2024 Osteoporosis with current pathological fracture 02/22/2024 Heart failure ([facility]) 02/16/2024 Pulmonary hypertension ([facility]) 02/16/2024 Chronic obstructive pulmonary disease ([facility]) 02/16/2024 Acute hypoxic respiratory failure ([facility]) 11/2023 Closed right hip fracture, initial encounter ( [facility]) 02/15/2024 Acute on chronic respiratory failure with hypoxia and hypercapnia ([facility]) 02/15/2024 Pneumonia due to infectious organism 02/15/2024 Social History Tobacco Use Types Packs/Day Years Used Date Smoking Tobacco: Former Cigarettes Tobacco Cessation:Counseling Given: No Alcohol Use Standard Drinks/Week Comments Never 0 (1 standard drink = 0.6 oz pur e alcohol) [facility] Utilities Answer Date Recorded In the past 12 months has e [employer] gas, oil, or water [employer] threatened to shut off services in your home? No 02/16/2024 Hunger Vital Sign Answer Date Recorded Within the past 12 months, y ou worried that your food would run out before you got the money to buy more. Never true 02/16/20 Within the past 12 months, t he [...] were you homeless or living in a snf (including now)? No 02/16/2024 [facility] - Inadequate Housing Answer Date Re corded What is your living situation today? I have a [facility] place to live 02/20/[address] you li ve. Do you have problems with any of the following? None of the above 02/20/2024 Interpersonal Safety Answer Date Record ed How often does anyone, inclu sergio family, hit, punch or physically hurt you? 02/16/2024 How often does anyone, inclu sergio family, insult, scream, curse or threaten to hurt you? 02/16/2024 Sex and Gender Information Value Date Recorded Sex Assigned at Not on file Legal Sex Male 9:25 EST Gender Identity Male 02/15/2024 14:44 EST Sexual Orientation Not on file Last Filed Vital Signs Vital Sign Reading [...] Body Mass Index 19.49 02/27/2024 1325 EST Functional Status * Are you deaf or [...] Author No 02/16/2024 16:00 Suma Flores RN Mental Status * Because of a physical, mental, or emotional condition, do you have serious difficulty concentrating, remembering, or making decisions? (5 years old or older) Answer Entry Date Author No 02/16/2024 16:00 Suma Flores RN Plan of Treatment Upcoming Encounters Date Type Department Care Team (Late st Contact Info) Description 04/05/2024 10:15 EST Appointment [facility] Xray [address] [place] [address] [place] [address] 04/05/2024 10:30 EST Post-op Visit [facility] Orthopedic Trauma - [address] [address] Ko Marquis PA-C [address] [place] [address] Medical Devices Implanted Type Area Barista Device Identifier Shelf Expiration Date Model / Serial / Lot Cement Bone High Viscosity Tobramycin Radiopaque Single Dose [employer] 40gm Simplex [id number] - [id number] Implanted:Qty: 2 on 02/17/2024 by Augustine Ceja MD at [facility] Ortho Implant Right: Hip [facility] [id number] 08/07/2024 6197-9-00 6197-9-00 1 / [id number] Hip Femoral Stem Cmntd 132deg Std Offst Sz 4 [id number] Accolade C [id number] - [id number] Implanted:Qty: 1 on 02/17/2024 by Augustine Ceja MD at [facility] Total Joint Implant Right: Hip [employer] [id number] 01/01/2029 6268-4187 D / [id number] D / [id number] Hip Spacer Stem Distal Cemented 11mm Accolade [id number] - [id number] Implanted:Qty: 1 on 02/17/2024 by Augustine Ceja MD at [facility] Total Joint Implant Right: Hip [employer] [id number] 10/23/2028 4807-3876 / [id number] / [id number] Restrictor Cement Lynn 25mm Distal Fem Hip Recon Surgery St - [id number] Implanted:Qty: 1 on 02/17/2024 by Augustine Ceja MD at [facility] Total Joint Implant Right: Hip [employer] 09/19/2033 [id number] / [id number] / [id number] Hip Head Unipolar Cocr 53mm Unit[employer] [id number] - [id number] Implanted:Qty: 1 on 02/17/2024 by Augustine Ceja MD at [facility] Total Joint Implant Right: Hip [employer] [id number] 02/07/2028 6942-5-05 / 6942-5-05 3 [id number] Hip Taper Sleeve Standard Offset Femoral V40 [id number] - [id number] Implanted:Qty: 1 on 02/17/2024 by Augustine Ceja MD at [facility] Total Joint Implant Right: Hip [employer] [id number] 11/05/2028 6942-6-06 5 / 6942-6-06 5 [id number] Procedures Procedure Name Priority Date/Time Associated Diagnosis [...] EST Closed right hip fracture, initial encounter ([facility]) XR HIP LEFT 1 VIEW Routine 02/17/2024 15 :20 EST Closed right hip fracture, initial encounter ([facility]) ANESTHESIA ARTERIAL LINE PLACEMENT Routine 02/17/2024 13:05 EST ANESTHESIA SPINAL BLOCK Routine 02/17/20 24 12:25 EST OPEN TREATMENT, FRACTURE, FEMUR, NECK, WITH INTERNAL FIXATION OR INSERTION OF PROSTHETIC 02/17/2024 11:44 EST Closed right hip fracture, initial encounter ([facility]) PROTIME STAT 02/17/2024 11:41 EST POCT GLUCOSE, [...] 03/04/2024 11:3 9 EST us Scan 2 Anatomy Teacher PROCEDURE/MINOR SURGICAL OR DERABLES Final Result * ECG REPORT - SCANNED (03/04/2024 9:35 EST) 03/04/2024 9:35 EST us Scan 2 Anatomy Teacher PROCEDURE/MINOR SURGICAL OR DERABLES Final Result * ECG REPORT - SCANNED (02/28/2024 10:36 EST) 02/28/2024 10:3 6 EST us Scan 2 Anatomy Teacher PROCEDURE/MINOR SURGICAL OR DERABLES Final Result * (ABNORMAL) COMPLETE BLOOD COUNT (02/28/2024 10:26 EST) Only the most recent of12 resultswithin the time period is included. WBC 16.63(H) 4.00 - 10.40 K/cmm 02/28/2024 11:06 [facility] RBC 3.09(L) 4.36 - 5.78 M/cmm 02/28/2024 11:06 [facility] Hemoglobin 10.3(L) 13.8 - 17.3 g/dL 02/28/2024 11:06 [facility] HCT 30.5(L) 39.5 - 50.2 % 02/28/2024 11:06 [facility] MCV 99(H) 81 - 95 fL 02/28/2024 11:06 [facility] MCH 33.3(H) 27.6 - 33.0 pg 02/28/2024 11:06 [facility] MCHC 33.8 32.8 - 36.4 g/dL 02/28/2024 11:06 [facility] RDW-CV 15.2(H) <14.2 % 02/28/2024 11:06 [facility] RDW-SD 55.3(H) <46.0 fl 02/28/2024 11:06 [facility] PLT 362 141 - 377 K/cmm 02/28/2024 11:06 [facility] MPV 10.1 9.5 - 12.7 fL 02/28/2024 11:06 [facility] Blood VENOUS BLOOD / Unknown Venipuncture / Unknown 02/28/2024 10:26 EST 02/28/2024 10:54 EST Pushpa Welch MD HEMATOLOGY & PF4 ORDERABLES F inal Result [facility] [address] [place], [place] [id number] * (ABNORMAL) BASIC METABOLIC PANEL (BMP) (02/28/2024 10:26 EST) Only the most recent of10 resultswithin the time period is included. Sodium 137 136 - 145 mmol/L 02/28/2024 11:44 [facility] Potassium 3.7 3.5 - 5.0 mmol/L 02/28/2024 11:44 [facility] Chloride 95(L) 96 - 110 mmol/L 02/28/2024 11:44 [facility] CO2 Total 38(H) 22 - 32 mmol/L 02/28/2024 11:44 [facility] Anion Gap 4(L) 5 - 14 mmol/L 02/28/2024 11:44 [facility] Glucose 127(H) 70 - 99 mg/dl 02/28/2024 11:44 [facility] Calcium 8.4(L) 8.5 - 10.5 mg/dL 02/28/2024 11:44 [facility] BUN 34(H) 10 - 26 mg/dL 02/28/2024 11:44 [facility] Creatinine 1.32(H) 0.66 - 1.25 mg/dL 02/28/2024 11:44 [facility] eGFR 53(L) >60 mL/min/1.73 m2 02/28/2024 11:44 [facility] Blood VENOUS BLOOD / Unknown Venipuncture / Unknown 02/28/2024 10:26 EST 02/28/2024 10:55 EST Pushpa Welch MD CHEMISTRY & BLOOD GAS ORDERAB LES Final Result Performing Organization Address [facility] Co de Phone Number [facility] [address] [place] [address] * (ABNORMAL) NT PRO BNP (02/27/2024 15:55 EST) Only the most recent of2 resultswithin the time period is included. NT-pro BNP 1,210(H) <326 pg/mL 02/27/2024 16:57 EST [facility] Comment: In the acute setting NT-proBNP values <300 pg/mL have a 98% NPV for excluding acute heart failure. In outpatient populations, NT-proBNP values <125 have a 99% NPV for excluding heart failure. Blood VENOUS BLOOD / Unknown Venipuncture / Unknown 02/27/2024 15:55 EST 02/27/2024 16:02 EST Bryan Weiss MD CHEMISTRY & BLOOD GAS ORDERABL ES Final Result Performing Organization Address [facility] Co de Phone Number [facility] [address] [place] [address] * TRANSTHORACIC ECHO (TTE) LIMITED W/DOPPLER W/CF [...] color Doppler.The study was interpreted by [facility]. Pertinent images and [...] obtained using cardiac ultrasound machine EPIQ #14. Pushpa Welch MD CARDIAC ECHO ORDERABLES Final Result * XR CHEST PORTABLE 1 VIEW (02/26/2024 12:08 EST) Anatomical Region Laterality Modality Computed Radiogr aphy 02/26/2024 12:1 6 EST Impressions 02/26/2024 12:16 EST New right upper and lower lobe airspace opacities which may represent aspiration pneumonitis. Small right effusion. [id number] Narrative 02/26/2024 12:16 EST XR CHEST PORTABLE [...] findings: ??Normal. Bones: Normal. Resulting Agency Comment [id number] Procedure Note Karo Schmidt MD - 02/26/2024 [...] which may representaspiration pneumonitis. Small right effusion. [id number] us Pushpa Welch MD IMG DIAGNOSTIC IMAGING ORDERA BLES Final Result * MRSA PCR (02/20/2024 5:04 EST) Only the most recent of2 resultswithin the time period is included. MRSA/Staph aureus Result No Staphylococcus aureus detected by PCR 02/20/2024 13:18 EST [facility] Swab BOTH ANTERIOR NARES / Unknown Swab / Unknown 02/20/2024 5:04 EST 02/20/2024 7:15 EST us Sandie Nye DO MICROBIOLOGY - GENERAL ORDERABLE S Final Result [facility] [address] [place] [address] * ECG REPORT - SCANNED (02/19/2024 14:12 EST) 02/19/2024 14:1 2 EST us Scan 2 Anatomy Teacher PROCEDURE/MINOR SURGICAL OR DERABLES Final Result * XR CHEST PORTABLE 1 VIEW (02/18/2024 15:38 EST) Anatomical Region Laterality Modality Computed Radiogr aphy 02/18/2024 15:4 8 EST Impressions 02/18/2024 15:48 EST Bilateral small pleural effusions and bibasilar opacities compatible with atelectasis. [id number] Narrative 02/18/2024 15:48 EST XR CHEST PORTABLE 1 VIEW ??02/18/2024 3:24 PM Clinical History/comments: hypoxia Comparison: 02/16/2024. Technique: Single portable AP view of the chest. Findings: Lines/tubes/devices: ??None Lungs: Left greater than right basilar opacities Pleura: Bilateral pleural effusions Cardiac and mediastinal contours: Stable Soft tissues and extrathoracic findings: No acute abnormalities Bones: No acute abnormalities Resulting Agency Comment [id number] Procedure Note Gordo Palm MD - 02/18/2024 [...] pleural effusions and bibasilar opacities compatible withatelectasis. [id number] Marcos Quintero MD IMG DIAGNOSTIC IMAGING OR DERABLES Final Result * VITAMIN D (25,OH) (02/18/2024 6:28 EST) 25OH Vitamin D Tot 38 30 - 100 ng/mL 02/19/2024 10:50 EST [facility] Comment: Vitamin D 25,OH Interpretive Ranges: Deficiency: ??<10.0 ng/mL Insufficiency: ??10.0 - 30.0 ng/mL Sufficiency: ??30.0 - 100.0 ng/mL Toxicity: ??>100.0 ng/mL Blood VENOUS BLOOD / Unknown Venipuncture / Unknown 02/18/2024 6:28 EST 02/18/2024 6:38 EST Marcos Quintero MD CHEMISTRY & BLOOD GAS ORD ERABLES Final Result [facility] [address] [place] [address] * (ABNORMAL) COMPREHENSIVE METABOLIC PANEL (CMP) (02/18/2024 6:28 EST) Only the most recent of4 resultswithin the time period is included. Sodium 134(L) 136 - 145 mmol/L 02/18/2024 7:09 EST [facility] Potassium 4.5 3.5 - 5.0 mmol/L 02/18/2024 7:09 EST [facility] Chloride 97 96 - 110 mmol/L 02/18/2024 7:09 EST [facility] CO2 Total 36(H) 22 - 32 mmol/L 02/18/2024 7:09 [facility] Glucose 110(H) 70 - 99 mg/dl 02/18/2024 7:09 [facility] BUN 70(H) 10 - 26 mg/dL 02/18/2024 7:09 [facility] Creatinine 2.11(H) 0.66 - 1.25 mg/dL 02/18/2024 7:09 [facility] eGFR 30(L) >60 mL/min/1.7 3m2 02/18/2024 7:09 [facility] Total Protein 5.0(L) 6.3 - 8.2 g/dL 02/18/2024 7:09 [facility] Albumin 2.7(L) 3.4 - 4.9 g/dL 02/18/2024 7:09 [facility] Alkaline Phosphatase 80 38 - 126 U/L 02/18/2024 7:09 [facility] AST 33 15 - 46 U/L 02/18/2024 7:09 [facility] ALT 36 <50 U/L 02/18/2024 7:09 [facility] Bilirubin, Total <0.5 <1.4 mg/dL 02/18/20 24 7:09 [facility] Calcium 8.2(L) 8.5 - 10.5 mg/dL 02/18/2024 7:09 [facility] Albumin/Globulin Ratio 1.2 1.0 - 2.5 02/18/2024 7:09 [facility] Anion Gap 1(L) 5 - 14 mmol/L 02/18/2024 7:09 [facility] Blood VENOUS BLOOD / Unknown Venipuncture / Unknown 02/18/2024 6:28 EST 02/18/2024 6:38 EST us Sandie Miller DO CHEMISTRY & BLOOD GAS ORDERABLES Final Result [facility] [address] [place] [address] * POCT GLUCOSE, INTERFACED (02/17/2024 17:48 EST) Only the most recent of5 resultswithin the time period is included. Glucose, POC 84 70 - 100 mg/dL 02/17/2024 17:49 EST [facility] HN LAB POC COMMENT (GLUCOSE) Test Performed by Nursing Services 02/17/2024 17:49 EST [facility] Blood CAPILLARY BLOOD / Unknown 02/17/2024 17:48 EST 02/17/2024 17:49 EST us Sandie Nye DO POINT OF CARE TEST ORDERABLES Fi nal Result [facility] [address] [place] [address] * XR HIP RIGHT 1 VIEW (02/17/2024 15:20 EST) Anatomical Region Laterality Modality Lower Extremities Right Computed Radio graphy 02/17/2024 16:1 3 EST Impressions 02/17/2024 16:13 EST FINDINGS/IMPRESSION: 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 No periprosthetic fracture is seen. No acute left hip abnormality is seen. Atherosclerotic calcifications are present bilaterally. [id number] Narrative 02/17/2024 16:13 EST XR HIP RIGHT [...] abnormality is seen. Atherosclerotic calcifications arepresent bilaterally. [id number] Augustine Ceja MD [facility] DIAGNOSTIC IMAGING OR DERABLES Final Result * XR HIP LEFT 1 VIEW (02/17/2024 15:20 EST) Anatomical Region Laterality Modality Lower Extremities Left Computed Radio graphy 02/17/2024 16:1 3 EST Impressions 02/17/2024 16:13 EST FINDINGS/IMPRESSION: 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 No periprosthetic fracture is seen. No acute left hip abnormality is seen. Atherosclerotic calcifications are present bilaterally. [id number] Narrative 02/17/2024 16:13 EST XR HIP RIGHT [...] of the lower pelvis. Resulting Agency Comment [id number] Procedure Note Gordo Palm MD - 02/17/2024 [...] abnormality is seen. Atherosclerotic calcifications arepresent bilaterally. [id number] Augustine Ceja MD [facility] DIAGNOSTIC IMAGING OR DERABLES Final Result * LA ARTL CATHJ/CANNULJ MNTR/TRANSFUSION SPX PRQ (02/17/2024 13:05 EST) Narrative [facility] POINT OF CARE - 02/17/2024 13:05 EST Jason Morse MD ? 02/17/2024 14:40 Arterial Line Placement Date/Time: 02/17/2024 13:05 Staffing Performed: anesthesiologist and resident/FINANCIAL REP/AA Performed by: Jason Morse MD Authorized by: [...] the procedure well with no immediate complications Jason Morse MD ANESTHESIA ORDERABLES Final Result [facility] * LA AN SPINAL BLOCK - CATHETER (02/17/2024 12:25 EST) Narrative Lio Billings AA - 02/17/2024 12:25 EST Lio Billings AA ? 02/17/2024 12:28 Spinal Block Start time: 02/17/2024 12:27 End time: 02/17/2024 12:27 Reason for Procedure: ??surgical anesthesia Staffing Performed: resident/FINANCIAL REP/AA and anesthesiologist Performed by: Lio Billings AA [...] depth: 9 cm Assessment Events: no paresthesia Jason Morse MD ANESTHESIA ORDERABLES Final Result * PROTIME (02/17/2024 11:41 EST) Only the most recent of2 resultswithin the time period is included. I.N.R. 1.0 0.9 - 1.1 Ratio 02/17/2024 12:08 EST [facility] Pro Time 11.2 9.7 - 12.8 secs 02/17/2024 12:08 EST [facility] Blood VENOUS BLOOD / Unknown Venipuncture / Unknown 02/17/2024 11:41 EST 02/17/2024 11:50 EST Narrative [facility] - 02/17/2024 12:08 EST Moderate Intensity Coumadin INR = 2.0-3.0 Adjustments in anticoagulant therapy dose should be based on the INR and NOT on the Protime. Result [facility] Jason Morse MD HEMATOLOGY & PF4 ORDERABLES Final Result [facility] [address] [place] [address] * MAGNESIUM (02/17/2024 5:58 EST) Magnesium 2.1 1.7 - 2.8 mg/dL 02/17/2024 7:11 EST [facility] Blood VENOUS BLOOD / Unknown Venipuncture / Unknown 02/17/2024 5:58 EST 02/17/2024 6:07 EST Marti Horn MD CHEMISTRY & BLOOD GAS ORDERABLES Final Result Performing Organization Address City/[facility]/ZIP Co de Phone Number [facility] [address] [place] [address] * TYPE AND SCREEN (02/16/2024 20:00 EST) ABO O 02/16/2024 21:54 EST [facility] Rh Factor Positive 02/16/2024 21:54 EST [facility] Antibody Screen Negative 02/16/2024 21:54 EST [facility] Specimen Expires: 02/19/2024 @ 23:59 02/16/2024 21:54 EST [facility] Blood VENOUS BLOOD / Unknown Venipuncture / Unknown 02/16/2024 20:00 EST 02/16/2024 20:09 EST us Ritesh Cardenas MD BLOOD BANK TESTS Edited Resul t - Final Performing Organization Address City/[facility] Co de Phone Number [facility] [address] [place] [address] * CT ANGIO CHEST PE PROTOCOL (02/16/2024 [...] above interpretation and agree with the findings. [id number] Narrative 02/17/2024 10:[address] ANGIO CHEST [...] lesions. Multilevel degenerative changes. Resulting Agency Comment [id number] Procedure Note Sonia Salazar MD - 02/17/2024 [...] the above interpretation andagree with the findings. [id number] us Sandie Miller DO IMG CT ORDERABLES Final Result * XR HIP RIGHT 1 VIEW (02/16/2024 17:54 EST) Anatomical Region Laterality Modality Lower Extremities Right Computed Radio graphy 02/16/2024 18:2 7 EST Impressions 02/16/2024 18:27 EST Findings/impression: Redemonstrated right femoral neck fracture, not significantly changed. No left- sided hip fracture or dislocation. Mild degenerative changes of the left hip. The soft tissues are unremarkable. [id number] Narrative 02/16/2024 18:27 EST XR HIP LEFT 2-3 VIEWS OPTIONAL PELVIS, XR HIP RIGHT 1 VIEW ??02/16/2024 5:52 PM Signs and Symptoms/Comments: right hip pain Comparison: Pelvic x-ray 02/15/2024. Technique: AP orthopedic view of the pelvis which includes an AP view of both hips, with additional AP view of the left hip. Resulting Agency Comment [id number] Procedure Note Sonia Salazar MD - 02/16/2024 [...] theleft hip. The soft tissues are unremarkable. [id number] Ritesh CHAUHAN DIAGNOSTIC IMAGING ORDERA BLES Final Result * XR HIP LEFT 2-3 VIEWS OPTIONAL PELVIS (02/16/2024 17:52 EST) Anatomical Region Laterality Modality Lower Extremities Left Computed Radio graphy 02/16/2024 18:2 7 EST Impressions 02/16/2024 18:27 EST Findings/impression: Redemonstrated right femoral neck fracture, not significantly changed. No left- sided hip fracture or dislocation. Mild degenerative changes of the left hip. The soft tissues are unremarkable. [id number] Narrative 02/16/2024 18:27 EST XR HIP LEFT [...] theleft hip. The soft tissues are unremarkable. [id number] Ritesh RESENDIZ DIAGNOSTIC IMAGING ORDERA BLES Final Result * (ABNORMAL) PROCALCITONIN (02/16/2024 17:00 EST) Procalcitonin 0.96(H) See Note ng/mL 02/16/2024 18:25 EST [facility] Comment: NOTE: Reference Range: <0.5 ng/mL - Low risk of severe sepsis >2.0 ng/mL - High risk of severe sepsis Blood VENOUS BLOOD / Unknown Venipuncture / Unknown 02/16/2024 17:00 EST 02/16/2024 17:15 EST us Sandie Millre DO CHEMISTRY & BLOOD GAS ORDERABLES Final Result Performing Organization Address [facility]/ZIP Co de Phone Number [facility] [address] [place] [address] * (ABNORMAL) PTT (02/16/2024 17:00 EST) PTT 20(L) 26 - 37 secs 02/16/2024 18:17 EST [facility] Blood VENOUS BLOOD / Unknown Venipuncture / Unknown 02/16/2024 17:00 EST 02/16/2024 17:30 EST us Ritesh Cardenas MD HEMATOLOGY & PF4 ORDERABLES F inal Result Performing Organization Address [facility] de Phone Number [facility] [address] [place] [address] * HEPARIN LEVEL - UNFRACTIONATED HEPARIN (02/16/2024 17:00 EST) Heparin Level-UFH 0.05 Therapeutic Range: 0.30 - 0.70 IU/mL 02/16/2024 18:22 EST [facility] Comment:Unfractionated hepar in [...] Unknown 02/16/2024 17:00 EST 02/16/2024 17:30 EST Sandie Miller DO HEMATOLOGY & PF4 ORDERABLES Saadia l Result Performing Organization Address City/[facility]/ZIP Co de Phone Number [facility] [address] [place] [address] * (ABNORMAL) HEMOGLOBIN A1C (02/16/2024 17:00 EST) Hemoglobin A1c 6.1(H) <5.7 % 02/16/2024 21:15 EST [facility] Comment: Glycemic Status References: Normal: ??<5.7% Pre-Diabetes: ??5.7% - 6.4% Diagnostic of Diabetes: ??> or = 6.5% (if confirmed) Est Avg Glucose 128 mg/dL 21:15 EST [facility] Comment:The eAG represents t he A1c result expressed as average glucose in mg/dL. Blood VENOUS BLOOD / Unknown Venipuncture / Unknown 02/16/2024 17:00 EST 02/16/2024 17:16 EST Sandie Miller DO CHEMISTRY & BLOOD GAS ORDERABLES Final Result Performing Organization Address [facility] Co de Phone Number [facility] [address] [place] [address] * EKG 12-LEAD (02/16/2024 16:44 EST) 02/16/2024 16:4 4 EST Narrative [facility] - 02/28/2024 10:28 EST ? [facility] ? Test Date: ?2024-02-16 Pat Name: ? BI SUE ? Department: ?? [address] ? Room: ? M415 Gender: ? Male ? 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 Requested By: JESUS FREEMAN Order Number: [id number] ? Reading MD: ?? IMANI LOMAS MD ? Measurements Intervals ?Inez ? Rate: ? 104 ?P: ?73 LA: ? 147 ?QRS: ?-58 QRSD: ? 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 Edited by CRISTELA TERRY MD [id number] 20:18:03 EST. I reviewed the tracing and have either agreed or edited the findings inthis report. Electronically Signed On 02-28-2024 10:28:35 EST by CAPO CLEMONS. us Sandie Miller DO CARDIAC ECG ORDERABLES Final Res ult [facility] E[facility] * EXPANDED RESPIRATORY VIRAL PANEL, PCR (DOES NOT INCLUDE INFLUENZA OR RSV) (02/16/2024 12:07 EST) Paraflu Type 1 Rslt (PF1RES) Negative Negative 02/17/2024 1:26 [facility] Paraflu Type 2 Rslt (PF2RES) Negative Negative 02/17/2024 1:26 [facility] Paraflu Type 3 Rslt (PF3RES) Negative Negative 02/17/2024 1:26 [facility] Paraflu Type 4 Rslt Negative Negative 02/16 1:26 [facility] Rhinovirus RNA Rslt (RVRES) Negative Negative 02/17/2024 1:26 [facility] Metapneumovirus RNA Rslt (HMVRES) Negative Negative 02/17/2024 1:26 [facility] Adenovirus DNA Rslt (ADVRES) Negative Negative 02/17/2024 1:26 [facility] Swab NASOPHARYNGEAL STRUCTURE / Unknown Swab / Unknown 02/16/2024 12:07 EST 02/16/2024 12:39 EST us Dominique Goldstein MD MICROBIOLOGY - GENERAL ORDERABLE S Final Result [facility] [address] [place] [address] * MRSA PCR (02/16/2024 11:36 EST) Pathologist [facility] MRSA PCR Not Detected Not Detected 02/16/2024 13:27 EST [facility] Comment:MRSA target DNA is n ot detected (presumed not colonized with MRSA). Swab BOTH ANTERIOR NARES / Unknown Swab / Unknown 02/16/2024 11:36 EST 02/16/2024 11:45 EST us Dominique Goldstein MD MICROBIOLOGY - GENERAL ORDERABLE S Final Result [facility] [address] [place] [address] * STREPTOCOCCUS PNEUMONIAE ANTIGEN, URINE (02/16/2024 11:36 EST) Strep Pneumo Ag Detection, Urine Negative Negative 02/16/2024 12:33 EST [facility] Urine URINE / Unknown Urine Collect / Unknown 02/16/2024 11:36 EST 02/16/2024 11:45 EST [facility] - 02/16/2024 12:33 EST Presumptive negative for pneumococcal pneumonia, suggesting no current or recent infection. ??Infection due to S.pneumoniae cannot be ruled out since the antigen present in the sample may be below detection limit of the test. Dominique Goldstein MD MICROBIOLOGY - GENERAL ORDERABLE S Final Result Performing Organization Address City/[facility]/ZIP Co de Phone Number [facility] [address] [place] [address] * LEGIONELLA ANTIGEN DETECTION, URINE (02/16/2024 11:36 EST) Legionella Antigen Detection Negative Negative 02/16/2024 12:33 EST [facility] Urine URINE / Unknown Urine Collect / Unknown 02/16/2024 11:36 EST 02/16/2024 11:45 EST [facility] - 02/16/2024 12:33 EST Negative for L.pneumophilia serogroup 1 antigen, suggesting no recent or current infection. ??Infection due to Legionella cannot be ruled out since other serogroups and species may cause disease, antigen may not be present in urine in early infection, and the level of antigen present in the urine may be below the detection limit of the test. us Dominique Goldstein MD MICROBIOLOGY - GENERAL ORDERABLE S Final Result Performing Organization Address City/[facility]/ZIP Co de Phone Number [facility] [address] [place] [address] * XR CHEST PORTABLE 1 VIEW (02/16/2024 10:59 EST) Anatomical Region Laterality Modality Computed Radiogr aphy 02/16/2024 11:0 5 EST Impressions 02/16/2024 11:05 EST Small bilateral pleural effusions. Slight interval increase in patchy airspace opacities at both lung bases and in the suprahilar right lung. [id number] Narrative 02/16/2024 11:05 EST XR CHEST PORTABLE [...] findings: ??Normal. Bones: Normal. Resulting Agency Comment [id number] Procedure Note Aaron Boone MD - 02/16/2024 [...] bases and in the suprahilar right lung. [id number] us Leda Ng MD IMG DIAGNOSTIC IMAGING OR DERABLES Final Result * ECG REPORT - SCANNED (02/16/2024 10:05 EST) 02/16/2024 10:0 5 EST us Scan 2 Anatomy Teacher PROCEDURE/MINOR SURGICAL OR DERABLES Final Result * (ABNORMAL) TROPONIN I (02/16/2024 9:34 EST) Only the most recent of3 resultswithin the time period is included. Pathologist [facility] Troponin I (ng/mL) 0.244(H) <0.034 ng/mL 02/16/2024 10:14 EST [facility] Blood VENOUS BLOOD / Unknown Venipuncture / Unknown 02/16/2024 9:34 EST 02/16/2024 9:40 EST Narrative [facility] - 02/16/2024 10:14 EST The results of this assay can be falsely lowered due to the consumption of Biotin. us Krystian Anne MD CHEMISTRY & BLOOD GAS ORDERAB LES Final Result [facility] [address] [place] [address] * TRANSTHORACIC ECHO (TTE) COMPLETE W/DOPPLER W/CF NO CONTRAST (02/16/2024 6:35 EST) Pathologist [facility] Triscuspid Valve Regurgitation Peak Gradient 73.5 mmHg [...] i-STAT 7.44(H) 7.31 - 7.41 02/16/2024 5:43 [facility] pCO2, Venous, i-STAT 45 41 - 51 mmHg 02/16/2024 5:43 [facility] pO2, Venous, i-STAT 41 30 - 50 mmHg 02/16/2024 5:43 [facility] TCO2, Venous, i-STAT 32(H) 22 - 28 mmol/L 02/16/2024 5:43 [facility] O2 Saturation, Venous, i-STAT 78 60 - 85 % 02/16/2024 5:43 [facility] Base Excess(+) / Deficit(-), Venous, i-STAT 6(H) -2 - 3 mmol/L 02/16/2024 5:43 EST [facility] Blood VENOUS BLOOD / Unknown 02/16/2024 5:41 EST 02/16/2024 5:43 EST Narrative [facility] - 02/16/2024 5:43 EST Test Performed by Respiratory us Lacey Hassan DO POINT OF CARE TEST ORDERABL ES Final Result Performing Organization Address [facility] de Phone Number [facility] [address] [place] [address] * CK (02/16/2024 5:37 EST) Only the most recent of2 resultswithin the time period is included. CK 114 <=250 U/L 02/16/2024 6:05 EST [facility] Comment:Moderate hemolysis i dentified, interpret with caution as results may be affected due to hemolysis. Blood VENOUS BLOOD / Unknown Venipuncture / Unknown 02/16/2024 5:37 EST 02/16/2024 5:43 EST us Krystian Anne MD CHEMISTRY & BLOOD GAS ORDERAB LES Final Result Performing Organization Address [facility] Number [facility] [address] [place] [address] * HN LAB CBC SMEAR REVIEW (02/16/2024 5:36 EST) Differential Comment Slide was examined by a technologist to verify the WBC and/or platelet count. 02/16/2024 6:01 EST [facility] Blood VENOUS BLOOD / Unknown Venipuncture / Unknown 02/16/2024 5:36 EST 02/16/2024 5:43 EST us Homer Tan MD HEMATOLOGY & PF4 ORDERABLES Fin al Result Performing Organization Address City/[facility]/ZIP Co de Phone Number [facility] [address] [place] [address] * EKG 12-LEAD (02/15/2024 16:26 EST) 02/15/2024 16:2 6 EST Narrative [facility] - 02/16/2024 9:57 EST ? [facility] ? Test Date: ?2024-02-15 Pat Name: ? BI SUE ? Department: ? Room: ? 305 Gender: ? Male ? Fiber Machine Tender: ?? CS : ?1940 ? Requested By: YURY NAYLOR Order Number: [id number] ? Reading MD: ?? CARLOS ALBERTO REYNOLDS MD ? Measurements Intervals ?Inez ? Rate: ? 110 ?P: ?77 LA: ? 138 ?QRS: ?-19 QRSD: ? 120 [...] Note Carlos Alberto Reynolds MD - 02/16/2024 [facility] Test Date: 2024-02-15 Pat Name: BI SUE Department: Room: 305 Gender: Male Fiber Machine Tender: BLANCA : 1940 Requested By: YURY NAYLOR Order Number: [id number] Reading MD: CARLOS ALBERTO REYNOLDS MD Measurements Intervals Inez Rate: 110 P: 77 LA: 138 QRS: -19 QRSD: 120 T: 84 [...] MD CARDIAC ECG ORDERABLES Final Res ult [facility] * HOLD LAVENDER TOP (02/15/2024 15:19 EST) Hold Hold 02/15/2024 16:31 [facility] Blood VENOUS BLOOD / Unknown Venipuncture / Unknown 02/15/2024 15:19 EST 02/15/2024 15:25 EST us Krystian Anne MD LAB INFO SERVICE AND SUPPORT & PHONE RESULT Final Result Performing Organization Address City/[facility]/ZIP Co de Phone Number [facility] [address] [place] [address] * HOLD GREEN TOP (02/15/2024 15:19 EST) Hold Hold 02/15/2024 16:31 [facility] Blood VENOUS BLOOD / Unknown Venipuncture / Unknown 02/15/2024 15:19 EST 02/15/2024 15:25 EST us Krystian Anne MD LAB INFO SERVICE AND SUPPORT & PHONE RESULT Final Result Performing Organization Address City/[facility]/ZIP Co de Phone Number [facility] [address] [place] [address] * (ABNORMAL) COMPLETE BLOOD COUNT AND DIFFERENTIAL (02/15/2024 15:19 EST) WBC 21.84(H) 4.00 - 10.40 K/cmm 02/15/2024 16:30 [facility] RBC 4.54 4.36 - 5.78 M/cmm 02/15/2024 16:30 [facility] Hemoglobin 14.5 13.8 - 17.3 g/dL 02/15/2024 16:30 [facility] HCT 44.8 39.5 - 50.2 % 02/15/2024 16:30 [facility] MCV 99(H) 81 - 95 fL 02/15/2024 16:30 [facility] MCH 31.9 27.6 - 33.0 pg 02/15/2024 16:30 [facility] MCHC 32.4(L) 32.8 - 36.4 g/dL 02/15/2024 16:30 [facility] RDW-CV 14.9(H) <14.2 % 02/15/2024 16:30 [facility] RDW-SD 54.5(H) <46.0 fl 02/15/2024 16:30 [facility] PLT 151 141 - 377 K/cmm 02/15/2024 16:30 [facility] MPV 11.6 9.5 - 12.7 fL 02/15/2024 16:30 [facility] % Neutrophils 89.3 Not Indicated % 02/15/2024 16:30 [facility] % Lymphocytes 3.1 Not Indicated % 02/15/2024 16:30 [facility] % Monocytes 6.6 Not Indicated % 02/15/2024 16:30 [facility] % Eosinophils 0.0 Not Indicated % 02/15/2024 16:30 [facility] % Basophils 0.2 Not Indicated % 02/15/2024 16:30 [facility] % Immature Grans 0.8 <0.9 % 02/15/2024 16:30 [facility] Absolute Neutrophils 19.49(H) 2.20 - 8.85 K/cmm 02/15/2024 16:30 [facility] Absolute Lymphocytes 0.67(L) 1.09 - 3.30 K/cmm 02/15/2024 16:30 [facility] Absolute Monocytes 1.45(H) 0.10 - 0.80 K/cmm 02/15/2024 16:30 [facility] Absolute Eosinophils 0.00(L) 0.03 - 0.61 K/cmm 02/15/2024 16:30 [facility] ABS Basophils 0.05 0.01 - 0.11 K/cmm 02/15/2024 16:30 [facility] Absolute Immature Grans 0.18(H) 0.00 - 0.06 K/cmm 02/15/2024 16:30 [facility] Type of Differential: Auto 02/15/2024 16:30 [facility] Blood VENOUS BLOOD / Unknown Venipuncture / Unknown 02/15/2024 15:19 EST 02/15/2024 15:25 EST us Dominique Goldstein MD PACKAGES & DNA PROBE ORDERABLES Final Result Performing Organization Address City/[facility]/ZIP Co de Phone Number [facility] [address] [place] [address] * SARS COV2, FLU A/B, RSV DETECT BY PCR (02/15/2024 15:13 EST) FLU A RNA Result (FLARES) Negative Negative 02/15/2024 16:22 [facility] FLU B RNA Result (FLBRES) Negative Negative 02/15/2024 16:22 [facility] RSV RNA Result (RSVRES) Negative Negative 02/15/2024 16:22 [facility] COVID-19 rt-PCR Result Negative Negative 02/15/2024 16:22 [facility] Comment: The 2019 novel coronavirus (SARS-CoV-2) target nucleic acids are not detected. Performed on the [employer] Instrument Swab NASOPHARYNGEAL STRUCTURE / Unknown Swab / Unknown 02/15/2024 15:13 EST 02/15/2024 15:18 EST us Krystian Anne MD MICROBIOLOGY - GENERAL ORDERA BLES Final Result [facility] [address] [place] [address] * CT OUTSIDE IMAGES ABDOMEN PELVIS (02/15/2024 [...] nal Result from Last [address] [place] [address] [place] [address] [place] [address] Advance Directives For more information, please contact: [phone] * Limitation of Treatment (Latest Code Status [...] Made the Decision? Default/Not Discussed Care Teams Systems Eng Relationship Specialty Start Date End Date Suzie Quan MD [address] [place] [phone] PCP - General Family Medicine - Primary Care 02/15/24
--- OUTSIDE RECORDS SUMMARY | 2024-03-27 10:43 | XMS_ITS | Encounter Summary ---
Author Organization [facility] Address [address] [place] [address] Care Team Providers Care Payroll Manager Name Role Phone Suzie Quan MD Primary Care Provider [phone] Encounter Details Date Type Department Care Team (Latest Contact Info) Description 02/16/2024 Travel Social History Tobacco Use Types Packs/Day Years Used Date Smoking Tobacco: Former Cigarettes Alcohol Use Standard Drinks/Week Comments Never 0 (1 standard drink = 0.6 oz pur e alcohol) [facility] Utilities Answer Date Recorded In the past 12 months has th e electric, gas, oil, or water [employer] threatened to shut off services in your [...] were you homeless or living in a prison (including now)? No 02/16/2024 Interpersonal Safety Answer Date Record ed How [...] Contact Info) Description 04/05/2024 10:15 EST Appointment [facility] [address] [address] 04/05/2024 10:30 EST Post-op Visit [facility] Orthopedic Trauma - [address] [address] Ko Marquis PA-C [address] [place] [address] documented as of this encounter Visit Diagnoses Not on filedocumented in this encounter Additional Health Concerns Infection Onset Date Last Indicated Resolved Time Respiratory rule-out Comment:Negative testing 02/16/2024 02/16/2024 02/17/2024 7:26 EST documented as of this encounter Care Teams Payroll Manager Relationship Specialty Start Date End Date Suzie Quan MD [address] [place] [address] PCP - General Family Medicine - Primary Care 02/15/24 documented as of this encounter
--- OUTSIDE RECORDS SUMMARY | 2024-03-27 10:43 | XMS_ITS | Encounter Summary ---
Author Organization [facility] Address [address] [place] [address] Care Team Providers Care Customer Relations Assistant Name Role Phone Suzie Quan MD Primary Care Provider [phone] Reason for Visit * Auth/Cert (Routine) Specialty Diagnoses / Procedures Referred By Conthank t Referred To Contact Diagnoses Acute hypoxic respiratory failure ([facility]) Hip fracture Referral ID Status Reason Start Date Expiration Date Visits Re quested Visits Authorized [id number] 1 1 Encounter Details Date Type Department Care Team (Late st Contact Info) Description 02/17/2024 11:57 EST Anesthesia Event [facility] [place] [facility] [address] [place], [place] [id number] Jason Morse MD [address] [place] [address], [address] [place] [phone] Anesthesia Record Procedure Summary Procedure Name Responsible Anesthesiologist Anesthesia Start Time Anesthesia Stop Time Open treatment of right femoral neck fracture with hemiarthroplasty (Right: Hip) Jason Morse MD 02/17/24 1157 02/17/24 1537 Events Date Time Event Comment 02/17/2024 1157 An Start The patient was re-evaluated immediately before moderate or deep sedation use, before anesthesia induction, or before the anesthesia procedure. 1157 An Start Data 1219 Block Placed Duration of Ane sthesia Provider Interaction/Face-Time = 20 minutes 1246 A-LINE PLACEMENT 1251 Anesthesia Ready 1515 Allen Pt switched fro m facemask to NC at the end of the case. Desated- and switched back to facemask for transport. Once in ICU switched to high flow nasal cannula 1517 an stop data 1537 Handoff to RN I completed my handoff to the receiving nurse during which we: 1. Identified the patient 2. Identified the responsible provider 3. Reviewed the pertinent medical history 4. Discussed the surgical course 5. Reviewed intra-op anesthesia management and issues during anesthesia 6. Set expectations for post-procedure period 7. Allowed opportunity for questions and acknowledgement of understanding. 1537 An Stop Meds Name Total bupivacaine (PF) 0.5 % injection 2 mL ketAMINE 5 mL prefilled syringe 15 mg midazolam (VERSED) injection 1 mg/mL 0.5 mg propOFol (DIPRIVAN) injection 84,240 mcg amiodarone in dextrose 360 mg/200 mL (1. 8 mg/mL) infusion 110 mg ceFAZolin injection 2,000 mg tranexamic acid injection 2,000 mg acetaminophen 10 mg/ml 100 mL infusion 1 ,000 mg lactated ringers (LR) infusion 200 mL * Agents Name O2 N2O Air * Blood No blood administrations on file. Lines, Drains, and Airways Type Details Placement Removal Foam Border Prophylactic Dressing 02/15/24; 1433; Left; Heel 02/15/24 1433 by Paulette Mclean LPN Wound 02/15/24; 1538; Pres sure inj; Sacrum; Y 02/15/24 1538 by Leticia Antony RN Wound 02/17/24; 1258; Inci ignacia; Right, Upper, Lateral; Leg; ORIF RIGHT HEMIARTHROPLASTY 02/17/24 1258 by Stephanie Mcleod RN Urethral Catheter 02/15/24; 1416; Eliz ent arrived with LDA; 02/18/24; 1607; Per protocol 02/15/24 1416 by Paulette Mclean LPN 02/18/24 1607 by Dariel Wetzel RN Foam Border Prophylactic Dressing 02/15/24; 1432; Right; Heel; 02/25/24; 1038 02/15/24 1432 by Paulette Mclean LPN 02/25/24 1038 by Ben Lux RN Peripheral IV 02/15/24; 1611; 22; 1; Anterior, Right; Forearm; Cephalic; Inserted by RN; 1; None; 2% Chlorhexidine with IPA; 02/17/24; 1818; Leaking 02/15/24 1611 by Ashley Dexter RN 02/17/24 1818 by Regine Taylor RN Peripheral IV 02/15/24; 1611; 22; 1; Posterior, Right; Hand; Inserted by RN; 2; None; 2% Chlorhexidine with IPA; 02/17/24; 1500; Leaking 02/15/24 1611 by Ashley Dexter RN 02/17/24 1500 by Regine Taylor RN Peripheral IV 02/16/24; 1815; 02/08 08/31; 18; 1.25; B Sandoval Introcan; Left, Anterior, Lateral; Upper Arm; cephalic; Inserted by RN; 1; None; 2% Chlorhexidine with IPA; 02/24/24; 1801; Per protocol; No complications, Catheter intact 02/16/24 1815 by Kimberly Carrillo RN 02/24/24 1801 by Cynthia Robin RN Spinal Catheter 02/17/24; 1227 (crevictor hugo foley via procedure documentation); 02/23/24; 0700 (not present at start of shift); Other (Comment) (not present at start of shift) 02/17/24 1227 by Lio Billings AA 02/23/24 0700 by Cynthia Robin RN Arterial Catheter 02/17/24; 1305 (crea og via procedure documentation); Radial; 1% Lido; 02/18/24; 0940; Therapy completed; Bruising at site, Bleeding at site, Pressure dressing applied 02/17/24 1305 by Jason Morse MD 02/18/24 0940 by Lili Harper RN documented in this encounter Social History Tobacco Use Types Packs/Day Years Used Date Smoking Tobacco: Former Cigarettes Alcohol Use Standard Drinks/Week Comments Never 0 (1 standard drink = 0.6 oz pur e alcohol) [facility] Utilities Answer Date Recorded In the past 12 months has [employer], gas, oil, or water [employer] threatened to shut off services in your [...] any time in the past 12 m [facility], were you homeless or living in a detention (including now)? No 02/16/2024 Interpersonal Safety Answer Date Record ed How often does anyone, ita sergio family, hit, punch or physically hurt [...] Suma Flores RN documented in this encounter OR Notes * Anesthesia Postprocedure Evaluation - Lio Billings AA - 02/17/2024 1537 EST Patient: Bi Winn Vital signs were reviewed with the recovery nurse. Complete vitals history is available in the Epicflowsheets. Vitals Value Taken Time BP 105/52 02/17/24 1537 Temp 36.4 02/17/24 1537 Resp 19 02/17/24 1537 Pulse From Oximetry 89 02/17/24 1537 SpO2 93 02/17/24 1537 Heart Rate 89 02/17/24 1537 Last Pain Score - Numeric Pain Level (Scale 1-10): 8 Type of Anesthesia - spinal Anesthesia Post Evaluation Post-procedure vitals reviewed and are stable. Level of consciousness: awake Temperature status: normothermia and patient returned to pre-procedure baseline Respiratory status: airway patent and stable Cardiovascular status: stable Hydration status: adequate Nausea/Vomiting: none Pain management: adequate Post-Op Assessment: patient tolerated procedure well with no complications Patient participation: able to participate Disposition: outpatient/home Anesthesia Complications: No apparent anesthesia complications * Anesthesia Procedure Notes - Jason Morse MD - 02/17/2024 1439 EST Associated Order(s): Arterial Line Placement Arterial Line Placement Date/Time: 02/17/2024 13:05 Staffing Performed: anesthesiologist and resident/HOOKER OFF/AA Performed by: Jason Morse MD Authorized by: Jason Morse MD Consent: Verbal consent obtained. Written consent obtained. [...] the procedure well with no immediate complications * Anesthesia Procedure Notes - Lio Billings AA - 02/17/2024 1225 EST Associated Order(s): Spinal Block Spinal Block Start time: 02/17/2024 12:27 End time: 02/17/2024 12:27 Reason for Procedure: surgical anesthesia Staffing Performed: resident/HOOKER OFF/AA and anesthesiologist Performed by: Lio Billings AA Authorized by: Jason Morse MD Preanesthetic Checklist Completed: patient identified, IV checked, risks and benefits discussed, surgical consent, monitorsand equipment checked, pre-op evaluation and timeout performed [...] depth: 9 cm Assessment Events: no paresthesia * Anesthesia Preprocedure Evaluation - Lio Billings AA - 02/17/2024 1110 EST Anesthesia Preprocedure Evaluation Patient Medical History, including Anesthesia History reviewed. Chart and Nursing Notes reviewed, including NPO status and Medication History. Additional ROS/History Findings from MICU H&P: Bi Winn is a 83 y.o. male with a PMHx of HTN, GERD, COPD (on 3-5 L NC baseline) and atrial fibrillation [not anticoagulated], who presented to [facility] s/p fall and was found to have R femoral neck fracture... [facility] ED labs notable for WBC 22, procal 3, creatinine 3 (baseline ~1), and potassium 6. He was subsequently transferred to [facility] 02/14 for surgical management. On arrival, temp 36.7C, HR 117, BP 102/64, RR 28. Due to worsening hypoxia, patient was placed on 10L oxymask and was then transferred up to the ICU on BiPAP, then transitioned to HFNC. He remained afebrile, initially in afib with RVR with rates in the 110s, started on diltiazem drip and then switched to amiodarone drip prior to transfer. CXR was notable for bibasilar interstial opacities, bilateral pleural effusions and vascular congestion. TTE showed preserved LVEF but revealed severe RV dilation with elevated pulmonary arterial pressure. BNP 7.5K. He was diuresed with lasix IV 160mg and metolazone PO 5mg 02/15 in the am. Cr improved from 3 to 2.3. Trop downtrending from 0.4 -->0.244. He was confirmed DNR/DNI. Transferred from [facility] to [facility] MICU for preoperative optimization. Granddaughter conforms DNR/DNI status but they are agreeable to ventilation as needed for up to 24hrs after surgery. No Known Allergies Review of Systems Unable to perform ROS: Other (Patient is sedated after hydromorphone administration) All other systems reviewed and are negative. No past medical history on file. Relevant Problems PULMONARY (+) Pneumonia due to infectious organism (+) Pulmonary emphysema (HCC-CMS) CARDIOVASCULAR (+) Pulmonary HTN (HCC-CMS) Physical Exam Airway Mallampati: II TM distance: >3 FB Neck ROM: limited Cardiovascular Rhythm: irregular Rate: abnormal Dental Comments: edentulous Pulmonary (+) decreased breath sounds, rales Comments: Crackles and rails with decreased breathsounds Abdominal - normal exam (-) obese Other findings: Two PIVs and babb catheter present. Currently off HFNC and on nasal canula Anesthesia Plan ASA 4 Anesthesia Type - neuraxial block - via epidural Block for post-op pain? Yes - via femoral block (SIFI vs AGUSTIN) Anesthesia plan and risks discussed. Informed consent obtained from legal guardian (Granddaughter). Specific risks discussed were ICU placement and post-op intubation. Code status discussed? Yes The preoperative history and physical which was performed within 30 days of this procedure, has been reviewed and the clinically appropriate elements of the physical examination have been repeated. There are no changes to the documented history and physical or, if so, such changes are documented inthis note PAT Note Notes from 01/18/24 through 02/17/24 No notes of this type exist for this encounter. documented in this encounter Plan of Treatment Upcoming Encounters Date Type Department Care Team (Late st Contact Info) Description 04/05/2024 10:15 EST Appointment [facility] Xray [address] [place], [place] [id number] 04/05/2024 10:30 EST Post-op Visit [facility] Orthopedic Trauma - [facility] [address] [place], [place] [id number] Ko Marquis PA-C [address] [place] [phone] documented as of this encounter Procedures Procedure Name Priority Date/Time Associated Diagnosis Comments ANESTHESIA ARTERIAL LINE PLACEMENT Routine 02/17/2024 13:05 EST ANESTHESIA SPINAL BLOCK Routine 02/17/2024 12:25 EST documented in this encounter Results * AK ARTL CATHJ/CANNULJ MNTR/TRANSFUSION SPX PRQ (02/17/2024 13:05 EST) Narrative [facility] POINT OF CARE - 02/17/2024 13:05 EST Jason Morse MD ? 02/17/2024 14:40 Arterial Line Placement Date/Time: 02/17/2024 13:05 Staffing Performed: anesthesiologist and resident/KATHERIN/AA Performed by: Jason Morse MD Authorized by: [...] Final Result [facility] POINT OF CARE * AK AN SPINAL BLOCK - CATHETER (02/17/2024 12:25 EST) Narrative Lio Billings AA - 02/17/2024 12:25 EST Lio Billings AA ? 02/17/2024 12:28 Spinal Block Start time: 02/17/2024 12:27 End time: 02/17/2024 12:27 Reason for Procedure: ??surgical anesthesia Staffing Performed: resident/HOOKER OFF/JERRI and anesthesiologist Performed by: iLo Billings AA Authorized by: Jason Morse MD [...] Jason Morse MD ANESTHESIA ORDERABLES Final Result documented in this encounter Visit Diagnoses Not on filedocumented in this encounter Administered Medications Inactive Administered Medications - up to 3 most recent administrations Medication Order MAR Action Action Date Dose Rate Site acetaminophen (OFIRMEV) IV solution intravenous, PRN, Starting on 02/17/24 at 1449, Until 02/17/24 at 1545, Routine, Anesthesia Intraprocedure Given 02/17/2024 14:49 EST 1,000 mg amiodarone in dextrose 360 mg/200 mL (1.8 mg/mL) infusion 0.5 mg/min (16.6667 mL/hr, rounded to 16.7 mL/hr), intravenous, CONTINUOUS, Starting on Mon02/16/24 at 1630, Until Mon02/18/24 at 0900, Routine Rate Documented 02/18/2024 8:00 EST 0.5 mg/min 16.7 mL/hr Rate Documented 02/18/2024 7:00 EST 0.5 mg/min 16.7 mL/hr Rate Documented 02/18/2024 6:00 EST 0.5 mg/min 16.7 mL/hr BUPivacaine (PF) (MARCAINE) 0.5% injection epidural, PRN, Starting on 02/17/24 at 1248, Until 02/17/24 at 1537, Routine, Anesthesia Intraprocedure Given 02/17/2024 12:59 EST 0.5 mL Given 02/17/2024 12:54 EST 0.5 mL Given 02/17/2024 12:48 EST 0.5 mL ceFAZolin (ANCEF) injection intravenous, PRN, Starting on 02/17/24 at 1251, Until 02/17/24 at 1537, Routine, Anesthesia Intraprocedure Given 02/17/2024 12:51 EST 2,000 mg ketAMINE in NaCl, iso-osmotic (KETALAR) 50 mg/5 mL (10 mg/mL) IV injection intravenous, PRN, Starting on 02/17/24 at 1201, Until 02/17/24 at 1537, Routine, Anesthesia Intraprocedure Given 02/17/2024 12:01 EST 15 mg lactated ringers (LR) infusion intravenous, FA IP EQF CONTINUOUS PRN FOR ONE STEP MEDS, Starting on 02/17/24 at 1157, Until 02/17/24 at 1537, Routine, Anesthesia Intraprocedure New Bag 02/17/2024 11:57 EST midazolam (PF) (VERSED) injection intravenous, PRN, Starting on 02/17/24 at 1201, Until 02/17/24 at 1537, Routine, Anesthesia Intraprocedure Given 02/17/2024 12:01 EST 0.5 mg propOFol (DIPRIVAN) injection intravenous, FA IP EQF CONTINUOUS PRN FOR ONE STEP MEDS, Starting on 02/17/24 at 1255, Until 02/17/24 at 1537, Routine, Anesthesia Intraprocedure New Bag 02/17/2024 12:55 EST 10 mcg/kg/min 3.12 mL/hr tranexamic acid (CYKLOKAPRON) injection intravenous, PRN, Starting on 02/17/24 at 1251, Until 02/17/24 at 1537, Routine, Anesthesia Intraprocedure Given 02/17/2024 14:07 EST 1,000 mg Given 02/17/2024 12:51 EST 1,000 mg documented in this encounter Care Teams Customer Relations Assistant Relationship Specialty Start Date End Date Suzie Quan MD [address] [place] [id number] PCP - General Family Medicine - Primary Care 02/15/24 documented as of this encounter
--- OUTSIDE RECORDS SUMMARY | 2024-03-27 10:43 | XMS_ITS | Encounter Summary ---
Author Organization [facility] Address [address] [place] [address] Care Team Providers Care Metal Off Bearer Name Role Phone Suzie Quan MD Primary Care Provider [phone] Reason for Visit * Reason Onset Date Comments Follow-up 02/27/2024 Returning Call 03/13/2024 Encounter Details Date Type Department Care Team (Late st Contact Info) Description 02/27/2024 Telephone [facility] Endocrinology - [facility] [address] [place] [address] Farnaz Rivas, DO [address] [facility] [address] [place] [address] Follow-up; Returning Call Social History Tobacco Use Types Packs/Day Years Used Date Smoking Tobacco: Former Cigarettes Alcohol Use Standard Drinks/Week Comments Never 0 (1 standard drink = 0.6 oz pur e alcohol) [facility] Utilities Answer Date Recorded In the past 12 months has [employer], gas, oil, or water [employer] threatened to shut off services in your [...] any time in the past 12 m [facility], were you homeless or living in a halfway (including now)? No 02/16/2024 [facility] - Inadequate Housing Answer Date Re corded What is your living situation today? I have a [facility] place to live 02/20/2024 Think about the [...] Date of Assessment Author No 02/16/2024 16:00 EST Suma Spring RN documented as of this encounter Mental Status * Because of a physical, mental, or emotional condition, do you have serious difficulty concentrating, remembering, or making decisions? (5 years old or older) Answer Entry Date Author No 02/16/2024 16:00 EST Suma Spring RN documented in this encounter Miscellaneous Notes * Telephone Encounter - Mary Nuñez - 03/13/2024 0858 EST Wilberto from Suzie Quan' office is returning the call to the [place]. Caller states they don't have follow-ups scheduled so they would like Dr. Rivas to review with the patient. Please call back if further information is needed. * Telephone Encounter - Ashley Rae MA - 02/28/2024 1532 EST Called PCP office back (Wilberto) Left message to return my call [phone]. Does PCP want us to follow up with patient or are they willing to do it * Telephone Encounter - Taqueria Hobbs - 02/27/2024 1142 EST Pcp office calling to speak with Ashley. Please contact wilberto at [phone] ext: [phone] documented in this encounter Plan of Treatment Upcoming Encounters Date Type Department Care Team (Late st Contact Info) Description 04/05/2024 10:15 EST Appointment [facility] Xray [address] [place] [address] 04/05/2024 10:30 EST Post-op Visit [facility] Orthopedic Trauma - [facility] [address] [place] [address] Ko Marquis PA-C [address] [place] [phone] documented as of this encounter Visit Diagnoses Not on filedocumented in this encounter Care Teams Metal Off Bearer Relationship Specialty Start Date End Date Suzie Quan MD [address] [place] [id number] PCP - General Family Medicine - Primary Care 02/15/24 documented as of this encounter
--- OUTSIDE RECORDS SUMMARY | 2024-03-27 10:43 | XMS_ITS | Encounter Summary ---
Author Organization [facility] Address [address] [place] [id number] Care Team Providers Care Stripper Black And White Name Role Phone Suzie Villagomez MD Primary Care Provider [phone] Reason for Visit * Auth/Cert (Routine) Specialty Diagnoses / Procedures Referred By Conthank t Referred To Contact Diagnoses Acute hypoxic respiratory failure ([facility]) Hip fracture Referral ID Status Reason Start Date Expiration Date Visits Re quested Visits Authorized [id number] 1 1 Encounter Details Date Type Department Care Team (Late st Contact Info) Description 02/17/2024 11:30 EST - 02/17/2024 15:15 EST Surgery [facility] OR [address] [place] [address] [phone] Augustine Ceja MD [address] [place] [phone] Open treatment of right femoral neck fracture with hemiarthroplasty [86542 (CPT??)] Surgery Details Date/Time Status Location OR Service Patient Class Case Class Case Type Trauma Case? 02/17/2024 1130 Posted [facility] OR [facility] 09 Orthopedics Inpatient G - Less than 48 hours Panel 1 Procedure LRB Anes Op Region Wound Class Comments Open treatment of right femo ral neck fracture with hemiarthroplasty Right General Hip Class I/ C lean Surgeon Surgeon Role Service Panel Denita Thomas MD Resident - Assisting Orthopedics 1 Augustine Ceja MD Primary Orthopedics 1 Russell Rodriguez MD Resident - Assisting Orthopedics 1 Sadi Parker MD Resident - Assisting Orthopedics 1 documented in this encounter Social History Tobacco Use Types Packs/Day Years Used Date Smoking Tobacco: Former Cigarettes Alcohol Use Standard Drinks/Week Comments Never 0 (1 standard drink = 0.6 oz pur e alcohol) [facility] Utilities Answer Date Recorded In the past 12 months has th e electric, gas, oil, or water company [...] any time in the past 12 m [facility], were you homeless or living in a [facility] (including now)? No 02/16/2024 Interpersonal Safety Answer Date Record ed How often does anyone, cindijustice sergio family, hit, punch or physically hurt you? 02/16/2024 How often does anyone, cindijustice sergio family, insult, scream, curse or threaten to hurt you? 02/16/2024 Sex and Gender Information Value Date Recorded Sex Assigned at Not on file Legal Sex Male 9:25 EST Gender Identity Male 02/15/2024 14:44 EST Sexual Orientation Not on file documented as of this encounter Last Filed Vital Signs Vital Sign Reading Time Taken Comments Blood Pressure 112/57 02/17/2024 1100 EST Pulse - - Temperature 37.2 ??C (98.9 ??F) 02/17/2024 0000 EST Respiratory Rate 22 02/17/2024 1100 EST Oxygen Saturation 91% 02/17/2024 1100 EST Inhaled Oxygen Concentration - - Weight 52 kg (114 lb 11.2 oz) 02/16/2024 1600 ES T Height 175.3 cm (5' 9.02) 02/16/2024 1600 EST Body Mass Index 19.49 02/27/2024 1325 EST documented in this encounter Functional Status * Are you [...] Suma Flores RN documented in this encounter Discharge Summaries * Pushpa Welch MD - 02/29/2024 0958 EST Medicine Discharge Summary Patient: Noe Sue : 1940 Primary Care Provider: SUZIE VILLAGOMEZ Attending Physician: Pushpa Welch MD Admit Date: 02/16/2024 Discharge Date: 02/29/24 Disposition: [facility] facility/Subacute rehab Reason for Admission: hip fracture Principal/Final Diagnosis: Acute hypoxic respiratory failure (HCC-CMS) Active Hospital Problems Diagnosis Date Noted *Acute hypoxic respiratory failure (HCC-CMS) 02/16/2024 PFO (patent foramen ovale) 02/27/2024 Atrial fibrillation ([facility]) 02/26/2024 Urinary retention 02/26/2024 Hypertension 02/26/2024 Thrush 02/26/2024 Osteoporosis with current pathological fracture 02/22/2024 Pulmonary hypertension ([facility]) 02/16/2024 Chronic obstructive pulmonary disease ([facility]) 02/16/2024 Closed right hip fracture, initial encounter ([facility]) 02/15/2024 Resolved Hospital Problems No resolved problems to display. Condition at Discharge: Improved Clinical Issues Needing Follow-up: -Needs osteoporosis treatment post DC, ortho placed referral to the Fracture Liaison Service with [facility] Endocrinology - 2 weeks postoperative wound check to be completed by rehabilitation or orthopedic MD/CHAVA. - 6 weeks postoperative follow-up with orthopedic trauma clinic for repeat clinical and radiographic evaluation. (Referral placed for [facility] follow up - could explore placing referral for ortho closerto home) - Referral to outpatient pulmonology/cardiology in [facility] (order not placed) - Discharging with lewis catheter in place for urinary retention x2 failed trials. Now on tamsulosin. To try removal of lewis next week. If fails again will need urology follow up - could consider holter monitor o/p to understand frequency of paroxysmal a fib - NEW oxymizer on transition to rehab. 3-5L at rest, 6-8L with acitivty, anticipate this need will wean as he regains pulmonary strength and functional strength. If still requiring this much will need set up for oxymizer at home on leaving rehab - CT chest with spiculated nodule - infectious vs underlying malignancy. Needs repeat CT chest around 03/23 to follow this up and determine if resolution or still present and needing further work up - patient aware. Pertinent medication changes: - STOPPED amlodipine, could consider resuming if elevated BP at rehab - Started: - apixaban 2.5mg BID - new a fib this hospital stay - vitamin D 2000U daily - Mucinex BID for pulmonary clearance - can trial off at rehab - dilaudid 2mg Q4prn for pain secondary to fracute - not needing frequently at this time - Duoneb four times a day - Nystatin four times a day through Sunday 03/04 for thrush - Flomax 0.4mg for urinary retention - torsemide 20mg daily for pulmonary HTN Anticoagulation on discharge: apixaban new- as above Hospital Course: Noe Sue is a 83 y.o. male with a PMHx of COPD (3-5L home oxygen), possible AF (he denies ever being told he has AF), GERD, and HTN, who was transferred from [facility] to [facility] and then [facility] for surgical management of a right femoral neck fracture in the setting of acute on chronic respiratory failure and severe PaHTN. He underwent right hip cemented unipolar hemiarthroplasty on 02/17/2024 (Dr. Ceja). Surgery well tolerated. Postop course complicated by acute on chronic hypoxic respiratory failure. He was treated for a pneumonia and COPD flare as well as initiated on diuresis (had a prior been using at home). This led tosome improvement in his respiratory status. However he continued to have difficulties with requiring high needs for movement which is likely reflective of his underlying needs in the setting of his COPD and severe pulmonary hypertension. Pulmonology was involved and he underwent an echo which demonstrated a small PFO with some late right to left shunting which can explain some of his hypoxia, butnot all. Making his COPD and his pulmonary hypertension the primary drivers to this difficulty. He was therefore initiated on Oxymizer to allow more oxygen support to increase his mobility and recovery from this fracture. He is going to rehab on new Oxymizer which was coordinated and doable from there and. He should use 3-5 L of Oxymizer at rest and 6-8 L of Oxymizer with activity. This can be titrated around if he is needing more or less oxygen. Ideally his oxygenation needs will improve as he improves at rehab and could go home on his prior nasal cannula, but if not he will need Oxymizer coordinated for home. He would benefit from pulmonary rehab, pulmonary follow-up, and cardiology follow-up after his rehab stay He also during his hospital stay had episodes of atrial fibrillation, which was a new diagnosis to him. He was initiated on apixaban, and heart rates were controlled with some additional beta-blockade and amiodarone and he returned to his home metoprolol dose. Could consider outpatient Holter monitor to assess for frequency and ongoing atrial fibrillation in the outpatient setting to understand if this was truly acute from his illness or along going need and help inform anticoagulation care going forward. Imaging XR CHEST PORTABLE 1 VIEW Result Date: 02/26/2024 New right upper and lower lobe airspace opacities which may represent aspiration pneumonitis. Smallright effusion. [id number] XR CHEST PORTABLE 1 VIEW Result Date: 02/18/2024 Bilateral small pleural effusions and bibasilar opacities compatible with atelectasis. [id number] XR HIP RIGHT 1 VIEW Result Date: 02/17/2024 FINDINGS/IMPRESSION: 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 No periprosthetic fracture is seen. No acute left hip abnormality is seen. Atherosclerotic calcifications arepresent bilaterally. [id number] XR HIP LEFT 1 VIEW Result Date: 02/17/2024 FINDINGS/IMPRESSION: 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 No periprosthetic fracture is seen. No acute left hip abnormality is seen. Atherosclerotic calcifications arepresent bilaterally. [id number] CT ANGIO CHEST PE PROTOCOL Result Date: 02/17/2024 1. No evidence of pulmonary embolism. 2. Patchy opacity in the periphery of the right middle lobe, lingula and posterior segment of the right upper lobe, favored to reflect atelectasis, although superimposed infection is not excluded. 3. Large mucous plugs in the trachea and occluding several segmental bronchi to the lower lobes bilaterally. 4. 1.1 [...] artery and aortic valve calcification. 8. I havepersonally reviewed the images and the above interpretation and agree with the findings. [id number] XR HIP RIGHT 1 VIEW Result Date: 02/16/2024 Findings/impression: Redemonstrated right femoral neck fracture, not significantly changed. No left-sided hip fracture or dislocation. Mild degenerative changes of the left hip. The soft tissues are unremarkable. [id number] XR HIP LEFT 2-3 VIEWS OPTIONAL PELVIS Result Date: 02/16/2024 Findings/impression: Redemonstrated right femoral neck fracture, not significantly changed. No left-sided hip fracture or dislocation. Mild degenerative changes of the left hip. The soft tissues are unremarkable. [id number] XR CHEST PORTABLE 1 VIEW Result Date: 02/16/2024 Small bilateral pleural effusions. Slight interval increase in patchy airspace opacities at both lung bases and in the suprahilar right lung. [id number] No Known Allergies There is no immunization history for the selected administration types on file for this patient. Results Pending at Discharge Test results still pending from this admission None Follow-up appointments and procedures Amb Consult/Follow Up Orthopedics - [facility] Scheduling Comments (optional - describe specific scheduling needs if applicable): 6w post op Reason for Request: R FNF s/p hemiarthroplasty w/ on-call MD 02/16 Authorizing Provider: Farnaz Sanchez NP Amb Consult/Follow Up Endocrinology Attention: Fracture Liaison Service Please choose one of the following condition categories: Osteoporosis Choose one or more of the following: None of the above Submit an order for ???eConsult--metabolic bone/osteoporosis?? and cancel this referral: The consult is originating from the Emergency Department or an Inpatient Provider Reason for Request: osteoporosis w/ current pathological fracture Authorizing Provider: Farnaz Sanchez NP Discharge Handoff Communication: DC summary routed to PCP I personally spent >30 minutes reviewing the chart, evaluating and examining the patient, and counseling and preparing the patient for discharge. Pushpa Welch MD 02/29/2024 9:58 documented in this encounter Medications at Time of Discharge albuterol 90 mcg/actuation HFA aerosol inhaler inhaler Inhale 2 Puffs as directed 4 times daily. 02/11/2024 ANORO ELLIPTA 62.5-25 mcg/actuation inhaler Inhale 1 Puff as directed daily. 09/10/2023 apixaban (ELIQUIS) 2.5 mg tablet Take 1 Tablet by mouth 2 times daily. 02/29/2024 aspirin chewable 81 mg tablet Take 1 Tablet by mouth daily. cholecalciferol, Vitamin D3, 50 mcg (2,000 unit) tablet Take 1 Tablet by mouth daily. 03/01/2024 guaiFENesin (MUCINEX) 600 mg SR tablet Take 1 Tablet by mouth 2 times daily. 02/29/2024 HYDROmorphone (DILAUDID) 2 mg tablet Take 1 Tablet by mouth every 4 hours as needed for up to 10 doses for Pain. Daily Max: 12 mg 10 Tablet 02/29/2024 ipratropium-albut Karely (DUONEB) 0.5 mg-3 mg(2.5 mg base)/3 mL nebulizer solutionIndicatio ns:Pulmonary emphysema, unspecified emphysema type (HCC-CMS) Take 3 mL by nebulization 4 times daily. 02/29/2024 metoprolol SUCCinate (TOPROL-XL) 25 mg tablet Take 1 Tablet by mouth daily. pantoprazole (PROTONIX) 40 mg tablet Take 1 Tablet by mouth daily before breakfast. TAMSulosin (FLOMAX) 0.4 mg capsule Take 1 Capsule by mouth daily. 03/01/2024 torsemide (DEMADEX) 20 mg tablet Take 1 Tablet by mouth daily. 03/01/2024 nystatin (MYCOSTATIN) 100,000 unit/mL suspension Take 5 mL by mouth 4 times daily for 4 days. 80 mL 02/29/2024 documented as of this encounter Ordered Prescriptions Prescription Sig Dispense Quantity Refills Last Filled Start Date End Date torsemide (DEMADEX) 20 mg tablet Take 1 Tablet by mouth daily. 03/01/2024 TAMSulosin (FLOMAX) 0.4 mg capsule Take 1 Capsule by mouth daily. 03/01/2024 ipratropium-albut Karely (DUONEB) 0.5 mg-3 mg(2.5 mg base)/3 mL nebulizer solutionIndicatio ns:Pulmonary emphysema, unspecified emphysema type (HCC-CMS) Take 3 mL by nebulization 4 times daily. 02/29/2024 HYDROmorphone (DILAUDID) 2 mg tablet Take 1 Tablet by mouth every 4 hours as needed for up to 10 doses for Pain. Daily Max: 12 mg 10 Tablet 02/29/2024 guaiFENesin (MUCINEX) 600 mg SR tablet Take 1 Tablet by mouth 2 times daily. 02/29/2024 cholecalciferol, Vitamin D3, 50 mcg (2,000 unit) tablet Take 1 Tablet by mouth daily. 03/01/2024 apixaban (ELIQUIS) 2.5 mg tablet Take 1 Tablet by mouth 2 times daily. 02/29/2024 nystatin (MYCOSTATIN) 100,000 unit/mL suspension Take 5 mL by mouth 4 times daily for 4 days. 80 mL 02/29/2024 documented in this encounter Discharge Disposition Disposition Code Departure Means Destination Comment s Nursing Facility (Skilled) Skilled N ursing documented in this encounter Progress Notes * Julianne Pascal - 02/29/2024 0925 EST CM Discharge Note CASE MANAGEMENT DISCHARGE NOTE DISCHARGE DATE/TIME: 02/29/24 11:15-12:00 DESTINATION: [facility] [address] [place] [id number] (If discharging to [facility]) COVID swab ordered and completed: na TRANSPORTATION: [facility] [facility] ambulance service ACCEPTING MD AND NUMBER: na RN REPORT/UNIT: [phone] DIRECTOR TALENT ACQUISITION/CHARGE/MD NOTIFIED (Y/N): Y FORMS: (Acute to acute, COLST, MOLST, KEON, Screen, PASRR, Ambulance): COLST,PASRR, Ambulance form, LENA IM SIGNED (Y/NA): na HOME HEALTH: [facility] - services on hold DME: oxymizer PHARMACY/PRESCRIPTIONS: facility MEDS TO BEDS UTILIZED : NO Patient and/or family who participated in discharge plan: patient and granddaughter Dang TAMMY Navarrete P[employer] Inspector II Epic chat preferred. 02/26/2024 11:57 * Toña Silver RT - 02/28/2024 1754 EST 1630 Pt refused nebulizer treatment this afternoon, he remains on 3L oxymizer * Pushpa eWlch MD - 02/28/2024 1500 EST Medicine Progress Note Service Date: 02/28/2024 Admit Date: 02/16/2024 15:41 Reason for Admission: 83 y.o. male admitted after a right femoral neck fracture (sp repair 02/16) who remains admitted for management of his acute on chronic respiratory failure 24 Hour Events: no acute events overnight Subjective/Objective Subjective Patient overall feels okay. His breathing is feeling slightly better. Didn't like the feeling of the oxymizer, but willing to try again today. Knows he needs to move with this on to figure out his oxygen needs and plan for his transition to [facility]. Called and updated granddaughter Dang. Review of Systems As per above Objective Vital Signs Temp: [36.4 ??C (97.6 ??F)-36.8 ??C (98.2 ??F)] , Heart Rate: [93 BPM-106 BPM] , Resp: [16-18] , BP: (99-160)/(48-71) , SpO2: [87 %-98 %] Physical Exam General appearance: alert, cooperative, frail Eyes: positive findings: mucus membrane swelling on left lower eyelid - not new. No conjunctival injection Throat/Mouth: mild thrush Lungs: some decreased aeration at bases. Mild expiratory wheezes Heart: regular rate and rhythm, S1, S2 normal, no murmur, click, rub or gallop Abdomen: soft, non-tender; bowel sounds normal; no masses, no organomegaly Mental Status: awake and alert; oriented to person, place, and time Extremities: extremities warm, atraumatic, no cyanosis or edema positive pulses bilat Genitourinary: normal findings: lewis in place Is PICC or central line present? No, PICC/Central line not present. Medications Reviewed: Labs Reviewed: Stable electrolytes/cr on increased torsemide dose Imaging Reviewed: No new imaging Assessment/Plan Assessment Noe Sue is a 83 y.o. male with comorbidities of COPD (on 3-5 L oxygen at home), GERD and hypertension who transferred to our institution from [facility] with a right femoral neck fracture requiring our level of anesthesia care. He is post right hip cemented unipolar hemiarthroplasty on 02/17/2024 (Dr. Ceja) which he tolerated well. Remains primarily admitted for ongoing management of his respiratory status. He was treated for a COPD exacerbation and CAP. In addition to his respiratory status is likely ongoing related to the degree of his COPD and his severe pulmonary hypertension. On review of his hospital stay, his breathinghas required high flow nasal cannula and primarily 5 L regular nasal cannula with nonrebreather formovement. Does not improve with increased diuresis and suspect he largely needs increase O2 support(Oxymizer) to assist oxygenation for movement to get him to [facility]. Case discussed today with RT, RN and granddaughter Crystal Plan Acute on chronic hypoxic hypercapnic respiratory failure Severe pulmonary HTN with RV dysfunction COPD - Symbicort + Spiriva (used to take anoro at home- seems to have stopped this due to ?thrush) -consulted pulm - in agreement for oxymizer. Have asked RT/RN for assistance with determining titration of this today so able to go to [facility] with this tentatively tomorrow - outpatient pulm/cards follow up and anticipate need for pulmonary rehab - Bubble study with small shunt, but likely not the degree of all of his hypoxia -Torsemide 20mg daily -Continue pulmonary clearance Right femoral neck fracture s/p R hip cemented hemiarthroplasty 02/16 - Ortho recs - WBAT RLE, AAT with posterior hip precautions - dressing removed 02/24 - ok to leave open to air - 2 weeks postoperative wound check to be completed by rehabilitation or orthopedic MD/CHAVA. 6 weekspostoperative follow-up with orthopedic trauma clinic for repeat clinical and radiographic evaluation. - Needs osteoporosis treatment post DC, ortho placed referral to the Fracture Liaison Service with [facility] Endocrinology - Vit D 2000U/d, tylenol and dilaudid for pain Thrush - nystatin swish and spit Urinary retention CHRISTIANO - resolved to baseline - failed a few lewis trials, tamsulosin started 02/25 and can retrial at [facility]/urology o/p Afib with RVR - new this hospitalization, not on AC outpatient - confirmed with 02/25 his med list - apixaban 2.5 BID started this hospital stay. Would benefit from o/p holter to assess frequency - [employer] metoprolol, received amio in the ICU Chronic comorbidities HTN - home metoprolol, amlodpine 10mg on hold GERD - home protonix HLD/CAD - home ASA Incidental findings Spiculated lung nodule seen on CT chest - needs repeat imaging 1 month post treatment outpatient toensure resolution VTE Prophylaxis apixaban Discharge Plan [facility] - if stable respiratory status on potential oxymizer - have asked CM for assistance with verifying they could support this and would tentatively plan for pending respiratory stability Consults Ortho Pushpa Welch MD 02/28/2024 15:00 I spent a total of 55 minutes on the date of this encounter meeting with the patient and reviewing documentation/coordinating care as described in the above note. * Sherice Esquivel, RT - 02/28/2024 1105 EST Progress Note Indications for Respiratory therapy: COPD Data Vitals: Heart Rate: 93 BPM, Resp: 16, SpO2: 94 % FIO2/O2 Device: O2 Flow Rate (L/min): 3 l/min, , O2 Device: (S) Oxymizer RT Orders: QID Duoneb BID Symbicort Daily Spiriva Q4 Evaluation for Oximyzer Action/Events Respiratory events; Patient has had a pulmonary consult for use of Oximyzer. Oximyzer placed on patient at 9:15. Patient only required 3L oximyzer, but with any ambulation he has been desaturating to under 85%. Oximyzer is to be used without humidity and can titrate up to 12L for an FIO2 of approximately 82%.This will helpful when patient ambulates. Patient tolerates treatments well. RT VAL 02/28/24 * Jack Mcdaniel, RT - 02/27/20242015 EST Respiratory Progress Note Indications for Respiratory therapy: Inhaled Medications / Oxygen Therapy Data Vitals: Heart Rate: 93 BPM, Resp: 18, SpO2: (!) 87 % FIO2/O2 Device: O2 Flow Rate (L/min): 4 l/min, , O2 Device: Nasal cannula RT Orders: ACT PRN Symbicort BID Spiriva Daily Duoneb QID Action/Events Respiratory events; Received pt on 4L NC. SpO2 hovered 86-88% while on 4L. After coughing and receiving breathing treatment, SpO2 increased to ~96%. Diminished breath sounds bilaterally. Trialed Oxymizer cannula @ 6 lpm w/ patient. Pt said it felt uncomfortable and wanted to go back tothe previous Nasal Cannula. Pt stated he will be willing to try again in the morning. RT CB 02/27/24 * Cuco Howell RT - 02/27/2024 1709 EST Respiratory Consult/Progress Note Indications for Respiratory therapy: COPD Data Vitals: Heart Rate: 96 BPM, Resp: 18, SpO2: 92 % FIO2/O2 Device: O2 Flow Rate (L/min): 4 l/min, , O2 Device: Nasal cannula, FIO2 %: 40 % RT Orders: QID Duoneb BID Symbicort Daily Spiriva Protocol Scoring: Bronchodilator/Inhalation Therapy Frequency Bronchodilator - Clinical Indications: History of COPD Breath Sounds: Any abnormal BS decreased Response: Mild response, increase subjective per 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 Pulse: <100 Resp Rate: 18-25 SOB: With exertion Total Score: 4 Comment:: Consider PRN Frequency Based On Total Score: 0-4 = PRN 5-7 = QID 8-10 = Q4H 11-12 = Q2H Airway Clearance Therapy Frequency Airway Clearance - Clinical Indications: No clinical indications Breath Sounds: Clear / diminished Sputum: Small (tsp) / None Consistency: None Cough Effort: Strong/ non-productive Color: None Total Score: 0 Comment: PRN Frequency Based On Total Score: 0-3 = PRN 4-6 = QID and PRN 7-9 = Q4H and PRN 10-11 = Q2H and PRN Hyperinflation Therapy Frequency Hyperinflation - Clinical Indications: No clinical indications Breath Sounds: Other Surgery: No X-Ray / Atelectasis: No O2 Requirements: 2-4 L above baseline Mobility Status: Mobile / at baseline Total: 3 Comment: PRN Frequency Based On Total Score: 0-3 = PRN 4-6 = QID and PRN 7-9 = Q4H and PRN 10-12 = Q2H and PRN Action/Events Respiratory events; Pt. continues to tolerate tx for the shift. BS- diminished bilat, currently on 4 L NC and has a strong non-productive cough. Will continue plan of care. RT ROLA 02/27/24 * Pushpa Welch MD - 02/27/2024 1402 EST Medicine Progress Note Service Date: 02/27/2024 Admit Date: 02/16/2024 15:41 Reason for Admission: 83 y.o. male admitted after a right femoral neck fracture (sp repair 02/16) who remains admitted for management of his acute on chronic respiratory failure 24 Hour Events: no acute events overnight Subjective/Objective Subjective Patient overall feels okay. He reports he does not feel much different with diuretic trial yesterday. Reports it still significant shortness of breath when he tries to move which makes it hard to move. Denies any new chest pain or symptoms. Tolerating p.o. Anxious to get to rehab when he can, but understanding of barriers around oxygenation. Called and updated granddaughter Dang. Review of Systems As per above Objective Vital Signs Temp: [36.8 ??C (98.3 ??F)-37.8 ??C (100 ??F)] , Heart Rate: [82 BPM-89 BPM] , Resp: [16-18] , BP: (96-130)/(47-79) , SpO2: [83 %-97 %] Physical Exam General appearance: alert, cooperative, frail Eyes: positive findings: mucus membrane swelling on left lower eyelid - not new. No conjunctival injection Throat/Mouth: mild thrush Lungs: some decreased aeration at bases. Mild expiratory wheezes Heart: regular rate and rhythm, S1, S2 normal, no murmur, click, rub or gallop Abdomen: soft, non-tender; bowel sounds normal; no masses, no organomegaly Mental Status: awake and alert; oriented to person, place, and time Extremities: extremities warm, atraumatic, no cyanosis or edema positive pulses bilat Genitourinary: normal findings: lewis in place Is PICC or central line present? No, PICC/Central line not present. Medications Reviewed: Labs Reviewed: None yet today - pending Imaging Reviewed: CXR 02/26 with mild R pleural effusion, scattered airspace opacities, though not too different fromprior CXRs onmy read. No new large opacity Assessment/Plan Assessment Noe Sue is a 83 y.o. male with comorbidities of COPD (on 3-5 L oxygen at home), GERD and hypertension who transferred to our institution from [facility] with a right femoral neck fracture requiring our level of anesthesia care. He is post right hip cemented unipolar hemiarthroplasty on 02/17/2024 (Dr. Ceja) which he tolerated well. Remains primarily admitted for ongoing management of his respiratory status. He was treated for a COPD exacerbation and CAP. In addition to his respiratory status is likely ongoing related to the degree of his COPD and his severe pulmonary hypertension. On review of his hospital stay, his breathinghas required high flow nasal cannula and primarily 5 L regular nasal cannula with nonrebreather formovement. This is not better today compared to yesterday despite trial of further diuresis suspect he may benefit from an Oxymizer at home as he was already requiring 5 L prior to this admission Case discussed today with RT, pulm and granddaughter Crystal Plan Acute on chronic hypoxic hypercapnic respiratory failure Severe pulmonary HTN with RV dysfunction COPD - Symbicort + Spiriva (used to take anoro at home- seems to have stopped this due to ?thrush) -And with increasing oxygen needs around position changes. Have consulted pulmonology for assistance with this -Limited TTE today for bubble study and assessment if any improvement in pulmonary pressures with diuresis this hospitalization -Stop furosemide 20 mg daily, replace with torsemide 20 mg daily starting today. Will closely monitor urine output and kidney function may uptitrate this dose -Continue pulmonary clearance Right femoral neck fracture s/p R hip cemented hemiarthroplasty 02/16 - Ortho recs - WBAT RLE, AAT with posterior hip precautions - dressing removed 02/24 - ok to leave open to air - 2 weeks postoperative wound check to be completed by rehabilitation or orthopedic MD/CHAVA. 6 weekspostoperative follow-up with orthopedic trauma clinic for repeat clinical and radiographic evaluation. - Needs osteoporosis treatment post DC, ortho placed referral to the Fracture Liaison Service with [facility] Endocrinology - Vit D 2000U/d, tylenol and dilaudid for pain Thrush - nystatin swish and spit Urinary retention CHRISTIANO - resolved to baseline - failed a few lewis trials, tamsulosin started 02/25 and can retrial 02/27 vs [address] [facility]/urology o/p Afib with RVR - new this hospitalization, not on AC outpatient - confirmed with 02/25 his med list - apixaban 2.5 BID started this hospital stay. Would benefit from o/p holter to assess frequency - OUTRE[employer]BER metoprolol, received amio in the ICU Chronic comorbidities HTN - home metoprolol, amlodpine 10mg on hold GERD - home protonix HLD/CAD - home ASA Incidental findings Spiculated lung nodule seen on CT chest - needs repeat imaging 1 month post treatment outpatient toensure resolution VTE Prophylaxis apixaban Discharge Plan TANI - if stable respiratory status on potential oxymizer - have asked CM for assistance with verifying they could support this and would tentatively plan for pending respiratory stability Consults Ortho Pushpa Welch MD 02/27/2024 14:02 I spent a total of 55 minutes on the date of this encounter meeting with the patient and reviewing documentation/coordinating care as described in the above note. * Aimee Cordova, RT - 02/27/2024 1046 EST Respiratory Consult/Progress Note Indications for Respiratory therapy: COPD, Home routine Data Vitals: Heart Rate: 82 BPM, Resp: 16, SpO2: (!) 83 % (found off oxygen) FIO2/O2 Device: O2 Flow Rate (L/min): 4 l/min, , O2 Device: Nasal cannula, RT Orders: QID Duoneb BID Symbicort Every day Spiriva Protocol Scoring: Bronchodilator/Inhalation Therapy Frequency Bronchodilator - Clinical Indications: History of COPD Breath Sounds: Any abnormal BS decreased Response: Mild response, increase subjective per 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 Pulse: <100 Resp Rate: <18 SOB: With exertion Total Score: 3 Comment:: Consider PRN Frequency Based On Total Score: 0-4 = PRN 5-7 = QID 8-10 = Q4H 11-12 = Q2H Airway Clearance Therapy Frequency Airway Clearance - Clinical Indications: No clinical indications Breath Sounds: Clear / diminished Sputum: Small (tsp) / None Consistency: None Cough Effort: Strong/ non-productive Color: None Total Score: 0 Comment: PRN Frequency Based On Total Score: 0-3 = PRN 4-6 = QID and PRN 7-9 = Q4H and PRN 10-11 = Q2H and PRN Hyperinflation Therapy Frequency Hyperinflation - Clinical Indications: No clinical indications Breath Sounds: Other Surgery: No X-Ray / Atelectasis: No O2 Requirements: 2-4 L above baseline Mobility Status: Mobile / at baseline Total: 3 Comment: PRN Frequency Based On Total Score: 0-3 = PRN 4-6 = QID and PRN 7-9 = Q4H and PRN 10-12 = Q2H and PRN Action/Events 1000: In to see patient for his respiratory treatment. RN had already administered MDI's. Found patient without oxygen on with SpO2 82%. Placed oxygen back on at 4L with SpO2 96%. Breath sounds diminished. Duoneb administered. Increase in aeration post treatment. Plan Continue home routine. RT MYA 02/27/24 * Julianne Pascal - 02/27/2024 0943 EST [facility] Department of Case Management and Social Work Case Management Progress Note Patient Name Level of Care and Accommodation Code: Patient Class: Medically Ready: Y/N Noe Sue Acute General Inpatient N Primary Dx: Decisional Capacity: Y/N Primary Support/ CareGiver: Advance Directive Acute hypoxic respiratory failure (HCC-CMS) taylor Godinez Advance Directives (For Healthcare) Healthcare Directive: No, patient does not have advance directive for healthcare treatment Disposition Information Appropriate to transfer back: Y/N Length of Stay (in days): Estimated Date of D/C: LTC Medicaid Status: n 02/22 na Primary Care Provider: AR/TANI/SNF referred: Y/N Bed Offers: Y/N Escalated to Leadership: Y/Delilah toth Mobility Level: Recommended D/C Location Payor: Bedside Mobility Assessment Tool (BMAT) Bedrest or non-weight bearing orders?: Yes Recommended Discharge Destination PT Recommended Discharge Destination: Subacute rehabilitation Payor: MEDICARE / Plan: MEDICARE A/B / Product Type: Medicare GL / Barriers to Discharge pending medical readiness - stability on oximizer Plan [facility]. Transfer by ambulance on Monday was postponed due toconcern for stability. Plan is to switch patient to oximizer, observe for a day, [facility] pending confirmation from ST. that they can support oximizer and hold bed until . [employer]-Signature TAMMY Navarrete Pipe Inspector II Epic chat preferred. 02/27/2024 9:43 02/27/24 9:43 * Pushpa Welch MD - 02/26/2024 1308 EST Medicine Progress Note Service Date: 02/26/2024 Admit Date: 02/16/2024 15:41 Reason for Admission: 83 y.o. male admitted after a right femoral neck fracture (sp repair 02/16) who remains admitted for management of his acute on chronic respiratory failure 24 Hour Events: no acute events overnight Subjective/Objective Subjective Notes he is feeling OK. Notes ongoing shortness of breath that he reports feels similar throughout this hospitalization, but not worse. No chest pain. Not coughing much. Tolerating PO. Pain in hips well controlled. Notes pain in his mouth which he reports he has had before with sores when he has taken inhalers and thus since stopped them. Doesn't know his meds - but states home health would. Called [facility] who confirmed the following meds: Multivitamin with iron 400mcg daily Amlo 10mg daily Aspirin 81 mg daily Oxygen Protonix 40mg daily Metop 25 xl daily Tylenol prn Ventolin 2puffs QID Review of Systems As per above Objective Vital Signs Temp: [36.6 ??C (97.9 ??F)-36.7 ??C (98.1 ??F)] , Heart Rate: [87 BPM-97 BPM] , Resp: [18-20] , BP:(117-128)/(57-58) , SpO2: [91 %-93 %] Physical Exam General appearance: alert, cooperative, frail Eyes: positive findings: mucus membrane swelling on left lower eyelid - not new. No conjunctival injection Throat/Mouth: mild thrush Lungs: some decreased aeration at bases. Mild expiratory wheezes Heart: regular rate and rhythm, S1, S2 normal, no murmur, click, rub or gallop Abdomen: soft, non-tender; bowel sounds normal; no masses, no organomegaly Mental Status: awake and alert; oriented to person, place, and time Extremities: extremities warm, atraumatic, no cyanosis or edema positive pulses bilat Genitourinary: normal findings: lewis in place Is PICC or central line present? No, PICC/Central line not present. Medications Reviewed: Labs Reviewed: None yet today - pending Imaging Reviewed: CXR today with mild R pleural effusion, scattered airspace opacities, though not too different fromprior CXRs onmy read. No new large opacity Assessment/Plan Assessment Noe Sue is a 83 y.o. male with comorbidities of COPD (on 3-5 L oxygen at home), GERD and hypertension who transferred to our institution from [facility] with a right femoral neck fracture requiring our level of anesthesia care. He is post right hip cemented unipolar hemiarthroplasty on 02/17/2024 (Dr. Ceja) which he tolerated well. Remains primarily admitted for ongoing management of his respiratory status. He was treated for a COPD exacerbation and CAP. In addition to his respiratory status is likely ongoing related to the degree of his COPD and his severe pulmonary hypertension. His breathing appears slightly worse today and on discussion with his nurse and PT he required nonrebreather recovery after session today so we will work to continue to optimize this and ideally rehab in the coming days. Plan Acute on chronic hypoxic hypercapnic respiratory failure Severe pulmonary HTN with RV dysfunction COPD - Symbicort + Spiriva (used to take anoro at home- seems to have stopped this due to ?thrush) - Have reached out to RT to ask about further optimization of pulmonary clearance measures. Scheduled duonebs and mucinex in interim - CXR repeated today with small R pleural effusion, will assess labs and then tentatively increase diuresis, currently on furosemide 20mg daily - will need pulm/cards follow up on DC Right femoral neck fracture s/p R hip cemented hemiarthroplasty 02/16 - Ortho recs - WBAT RLE, AAT with posterior hip precautions - dressing removed 02/24 - ok to leave open to air - 2 weeks postoperative wound check to be completed by rehabilitation or orthopedic MD/CHAVA. 6 weekspostoperative follow-up with orthopedic trauma clinic for repeat clinical and radiographic evaluation. - Needs osteoporosis treatment post DC, ortho placed referral to the Fracture Liaison Service with [facility] Endocrinology - Vit D 2000U/d, tylenol and dilaudid for pain Thrush - nystatin swish and spit Urinary retention CHRISTIANO - resolved to baseline - failed a few lewis trials, tamsulosin started 02/25 and can retrial 02/27 vs [address] [facility]/urology o/p Afib with RVR - new this hospitalization, not on AC outpatient - confirmed with HH 02/25 his med list - apixaban 2.5 BID started this hospital stay. Would benefit from o/p holter to assess frequency - OUTRE[employer] MEMBER metoprolol, received amio in the ICU Chronic comorbidities HTN - home metoprolol, amlodpine 10mg on hold GERD - home protonix HLD/CAD - home ASA Incidental findings Spiculated lung nodule seen on CT chest - needs repeat imaging 1 month post treatment outpatient toensure resolution VTE Prophylaxis apixaban Discharge Plan [facility] - if stable respiratory status as early as tomorrow Consults Ortho Pushpa Welch MD 02/26/2024 13:08 * Andie Cheema, SUKHDEV - 02/26/2024 1304 EST Nutrition Assessment Note: Reassessment BACKGROUND DATA Reason for Admission: 83 y.o. male who presented with a chief complaint of fall, and was admitted for surgical management of a right femoral neck fracture in the setting of acute on chronic respiratory failure and severe PaHTN. Subjective: Patient reports having a good appetite recently. Endorses good tolerance to Boost Plus and other liquids. Doesn't have a flavor preference. Drinks Ensure x1/day at home. Shares that he generally consumes more liquids than solids at home, so he's eating at his baseline. Current Nutrition Orders: Regular Diet Boost Plus TID Physical Findings: Digestive Systems: Last BM 02/23 (loose/mucous/watery) Dentition: Teeth: Missing teeth, Dentures upper per flowsheets Skin: dry, flaky, bruising, full thickness wound to sacrum Allergies on file: Patient has no known allergies. Anthropometrics: Height: 175.3 cm (69.02) Weights Filed This Admission 02/16/24 1600 02/18/24 0600 02/20/24 0600 02/23/24 0600 Weight: 52 kg (114 lb 11.2 oz) 53.1 kg (117 lb 1 oz) 58.1 kg (128 lb) 59 kg (130 lb) 02/24/24 0600 02/25/24 0600 02/26/24 0516 Weight: 59.9 kg (132 lb) 58.9 kg (129 lb 13.6 oz) 60.1 kg (132 lb 7.9 oz) Wt Readings from Last 6 Encounters: 02/26/24 60.1 kg (132 lb 7.9 oz) 02/16/24 57.6 kg (127 lb) BMI: Body mass index is 19.56 kg/m??. Weight Change: weights trending up this admission Pertinent Medications: Current Facility-Administered Medications Medication Route Frequency acetaminophen (TYLENOL) tablet 1,000 mg oral Q8H apixaban (ELIQUIS) tablet 2.5 mg oral BID aspirin chewable tablet 81 mg oral DAILY budesonide-formoterol HFA (SYMBICORT) 80-4.5 mcg/actuation inhaler 2 Puff inhalation Q12H cholecalciferol (Vitamin D3) tablet 2,000 Units oral DAILY dextrose 50 % solution 12.5 g intravenous PRN Dimethicone-Zinc Oxide 20-25 % spray,non-aerosol topical BID furosemide (LASIX) tablet 20 mg oral DAILY glucagon injection 1 mg intramuscular PRN HYDROmorphone (DILAUDID) tablet 2 mg oral Q4H PRN ipratropium-albuteroL (DUONEB) 0.5 mg-3 mg(2.5 mg base)/3 mL nebulizer solution 3 mL nebulization Q4H PRN ipratropium-albuteroL (DUONEB) 0.5 mg-3 mg(2.5 mg base)/3 mL nebulizer solution lidocaine (PF) 10 mg/mL (1 %) injection 2 mg intradermal PRN lidocaine 5 % (LIDODERM) patch 1 Patch transdermal DAILY metoprolol SUCCinate (TOPROL-XL) tablet 25 mg oral DAILY nystatin (MYCOSTATIN) suspension 500,000 Units oral QID pantoprazole (PROTONIX) tablet 40 mg oral DAILY TAMSulosin (FLOMAX) capsule 0.4 mg oral DAILY tiotropium bromide (SPIRIVA RESPIMAT) 2.5 mcg/actuation inhalation mist 2 Puff inhalation DAILY wound dressing (TRIAD) paste topical BID Pertinent Labs: Lab Results Component Value Date/Time NA 137 02/24/2024 09:22 K 4.7 02/24/2024 09:22 CO2 36 (H) 02/24/2024 09:22 CL 96 02/24/2024 09:22 BUN 48 (H) 02/24/2024 09:22 CREATININE 1.04 02/24/2024 09:22 GLUCOSEPOC 84 02/17/2024 17:48 CALCIUM 9.0 02/24/2024 09:22 MG 2.1 02/17/2024 05:58 Lab Results Component Value Date/Time HGBA1C 6.1 (H) 02/16/2024 17:00 GLUCOSEPOC 84 02/17/2024 17:48 GLUCOSEPOC 114 (H) 02/17/2024 05:58 GLUCOSEPOC 149 (H) 02/16/2024 23:45 GLUCOSEPOC 177 (H) 02/16/2024 16:59 GLUCOSEPOC 177 (H) 02/16/2024 11:39 Lab Results Component Value Date/Time VITD 38 02/18/2024 06:28 Estimated Nutrition Needs: 25 - 30 kcal/kg (using 58.1 kg) = 1452 - 1743 kcals/day 1.2 - 1.5 g/kg protein (using 58.1 kg) = 70 - 87 g protein/day Estimated Nutrition Intake: 02/20 - 02/25 25% - 50% of documented meals ASSESSMENT: RD Malnutrition Assessment Unable to assess for malnutrition at this time. Patient slightly decreased appetite and PO intakes recently. Eating <50% documented meals. Continues to mostly be drinking his calories. Tolerates all flavors of supplements TID. Will continue sending a variety of supplement flavors. Reports consuming most of his calories from fluids at home as well, so appears to be eating/drinking at his baseline. Encouraged patient to order beverages with calories instead of water or unsweetened/diet drinks. Weight is trending up recently. BMI is now WDL. Continue to trend. Nutrition Risk Level: Moderate (2) MEDICAL NUTRITION THERAPY PLAN: -Continue Regular Diet -Encouraged good intakes of caloric beverages -Continue Boost Plus TID -Discontinue Vitamin D3 supplement -Weekly weights -Monitor intake, wgt, labs, skin, bowels, comfort Andie Cheema RD, CD * Julianne Pascal - 02/26/2024 1157 EST Case Management Progress Note Patient scheduled to transfer to [facility] H&R postponed by provider as precaution to [id number] stability. [facility]. Confirmed that if he is confirmed to be stable, they can take him tomorrow. CM cancelled ambulance ride and will reschedule in the morning as appropriate. CM notified granddaughter Dang. CM will continue to follow and coordinate safe discharge. TAMMY Navarrete Pipe Inspector II Epic chat preferred. 02/26/2024 12:00 * Laine Coe, PT - 02/26/2024 1170 EST [facility] Rehabilitation Therapy Acute Therapy [facility] ADDENDUM: This addendum is intended as a Therapy Discharge Summary due to unplanned discharge of the patient.The information documented below this addendum was current at the time of last visit. Progress and patient response to treatment since the last progress note are summarized below. OBJECTIVE: In this reporting period 02/19 to today, the patient has been seen for therapy services. Therapy isdiscontinued at this time as the patient has been discharged from the hospital.. ASSESSMENT: Unable to assess current status as the patient was not seen for any additional therapy sessions. Ptseen 3x by PT services during admission. He has been dc to [facility] 02/28 to further progress functionalindep and maximize his level of function Short-Term Goals: Goals: Not Applicable Long-Term Goals: Time Frame: 2-4 weeks Goal: pt will be supervised with bed mobility with rail Status: Discontinue Goal: pt will transfer supervised all surfaces Status: Discontinue Goal: pt will ambulate supervised rw >75' w/o LOB Status: Discontinue Goal: pt will be indep with verbalizing/demonstrating PT safety recommendations and THR precautions Status: Discontinue PLAN: Discontinue therapy. We would be happy to see this patient in the future with a new referral. LAINE COE PT 03/01/24 8:13 Physical Therapy Encounter Note Date of Service: 02/26/2024 SUBJECTIVE: Subjective Statements Comments: pt needing to try and have a bm upon arrival Pain Evaluation Pain Description: sore L hip; not rated but worse with mobility OBJECTIVE: Interventions Completed Today: Physical Therapy Today At: Time: [id number] minutes Present for the Therapy Session Comments: RN present throughout General Vital Signs Comments: 5L rest 92%, 5L exertion 87%. Increased 6L rest 93%, exertion 85% at lowest. Placed on VMupon recovery >92%. Left with RN Interventions Included Procedures: Therapeutic activities Therapeutic Activities 1: rolling to L for bed perry placement mod ax1; pillow between knees to maintain R hip precaution Therapeutic Activities 2: supine>sit to L with HOB elevated, rail and mincontact ax1. verbal cues for deep breathing; pt demonstrates appropriate pursed lip breathing Therapeutic Activities 3: instructed pt with pete stedy use. pt able to indep lift B feet onto platform. cues for UE placement. sit>stand EOB mincontact ax1 with pete stedy. transferred to recliner via pete stedy Therapeutic Activities 4: stand>sit mincontact ax1; cues for slow, controlled descent Patient Status at the End of the Therapy Session The patient was left in the: recliner with the: Call spencer in reach, Chair alarm on Patient Status at the End of the Therapy Session Comments: RN in room with patient Patient/Family Education: Education Topics Topics: Transfers, Safety, Equipment use, Activity pacing/energy conservation, Positioning, Bed mobility Learner Learner: Patient Method: Verbal Outcome: Verbalized understanding, Returned demonstration, Needs practice, Requires assist Team Communication Communicated with: Nurse When: Prior to therapy session, During therapy session, After therapy session By: [id number] communication Additional communication about Patient Status and Referrals: Patient status Mobility and Gait: Mobility status ASSESSMENT: Pt able to transfer with pete stedy and assistance. Tolerating 5L at rest but increased O2 needs with activity. Recommend daily OOB<>chair with staff assistance. Pt will need TANI to progress his strength and functional indep with further skilled PT intervention Recommended Discharge Destination: Subacute rehabilitation PLAN: Necessity: Continue per established treatment plan Recommended Discharge Destination: Subacute rehabilitation Recommended Discharge Services: Therapy services at rehabilitation facility Equipment Recommended: To be determined at discharge facility LAINE COE PT 02/26/2024 11:30 * Cuco Vazquez MD - 02/25/2024 0731 EST Medicine Progress Note Service Date: 02/25/2024 Admit Date: 02/16/2024 15:41 Reason for Admission: 83 y.o. male who presented with a chief complaint of fall, and was admitted for surgical management of a right femoral neck fracture in the setting of acute on chronic respiratory failure and severe PaHTN. 24 Hour Events: - Bladder scanned x2, 488 and 608. Subjective/Objective Subjective Noe has no complaints. Feels as if he needs to urinate even after urinating. He denies any CP, SOB, nausea, chills, YANES or dizziness. Pain controlled. No acute concerns, would love to go to rehab closer to family in [place]. Objective Vital Signs Temp: [36.7 ??C (98.1 ??F)-36.9 ??C (98.4 ??F)] , Heart Rate: [80 BPM-93 BPM] , Resp: [20] , BP: (96-154)/(58-89) , SpO2: [78 %-100 %] Physical Exam Gen: Alert, frail, engaged, NAD HEENT: appreciable mucus membrane swelling on left lower eyelid. Lungs: CTAB in anterior russell Heart: RRR (back in NSR on tele) Extremities: no PARISH, right thigh is soft and dressings C/D/I Medications Reviewed. Required 4mg oral dilaudid for pain. Labs Reviewed: Recent Labs 02/22/24 1101 02/23/24 1204 02/24/24 0922 WBC 22.75* 19.09* 22.32* HGB 11.7* 11.6* 11.6* HCT 34.6* 35.4* 34.4* PLT 270 274 311 Recent Labs 02/22/24 1101 02/23/24 1204 02/24/24 0922 NA 138 138 137 K 4.5 4.6 4.7 CL 95* 95* 96 CO2 37* 39* 36* BUN 56* 51* 48* CREATININE 1.27* 1.10 1.04 MRSA PCR: negative Imaging Reviewed: XR CHEST PORTABLE 1 VIEW Result Date: 02/18/2024 Bilateral small pleural effusions and bibasilar opacities compatible with atelectasis. [id number] XR HIP RIGHT 1 VIEW Result Date: 02/17/2024 FINDINGS/IMPRESSION: 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 No periprosthetic fracture is seen. No acute left hip abnormality is seen. Atherosclerotic calcifications arepresent bilaterally. [id number] XR HIP LEFT 1 VIEW Result Date: 02/17/2024 FINDINGS/IMPRESSION: 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 No periprosthetic fracture is seen. No acute left hip abnormality is seen. Atherosclerotic calcifications arepresent bilaterally. [id number] CT ANGIO CHEST PE PROTOCOL Result Date: 02/17/2024 1. No evidence of pulmonary embolism. 2. Patchy opacity in the periphery of the right middle lobe, lingula and posterior segment of the right upper lobe, favored to reflect atelectasis, although superimposed infection is not excluded. 3. Large mucous plugs in the trachea and occluding several segmental bronchi to the lower lobes bilaterally. 4. 1.1 [...] artery and aortic valve calcification. 8. I havepersonally reviewed the images and the above interpretation and agree with the findings. [id number] XR HIP RIGHT 1 VIEW Result Date: 02/16/2024 Findings/impression: Redemonstrated right femoral neck fracture, not significantly changed. No left-sided hip fracture or dislocation. Mild degenerative changes of the left hip. The soft tissues are unremarkable. [id number] XR HIP LEFT 2-3 VIEWS OPTIONAL PELVIS Result Date: 02/16/2024 Findings/impression: Redemonstrated right femoral neck fracture, not significantly changed. No left-sided hip fracture or dislocation. Mild degenerative changes of the left hip. The soft tissues are unremarkable. [id number] XR CHEST PORTABLE 1 VIEW Result Date: 02/16/2024 Small bilateral pleural effusions. Slight interval increase in patchy airspace opacities at both lung bases and in the suprahilar right lung. [id number] Assessment/Plan Assessment Noe Sue is a 83 y.o. male with a PMHx of COPD (3-5L home oxygen), possible AF (he denies ever being told he has AF), GERD, and HTN, who was transferred from [facility] to [facility] and then [facility] for surgical management of a right femoral neck fracture in the setting of acute on chronic respiratory failure and severe PaHTN. Patient was initiated on treatment of COPD flare/CAP and diuresis for fluid overload with improvement in his respiratory status. Patient is also s/p right hip cemented unipolar hemiarthroplasty on 02/17/2024 (Dr. Ceja). Surgery well tolerated. Course additionally c/b AF w/ RVR converted to NSR s/pamiodarone, now resolved. Patient is stable, now on home O2 settings. Plan Multifactorial acute on chronic hypoxic hypercapnic respiratory failure (baseline home O2 3-5L NC) likely 2/2 COPD exacerbation. Chest CTA was notable for no PE, extensive areas of mucous plugging, bilateral effusions and a spiculated nodule in the lingula. S/p Ceftriaxone + doxycycline 5 days course completed, last dose 02/18. S/p prednisone 40mg x7d. - Duoneb q4h prn - Continue Symbicort q12h (LABA/ICS), spiriva daily to replace OUTREACH TEAM MEMBER LAMA - Hold OUTREACH TEAM MEMBER Anoro Ellipta (LAMA/LABA) - Wean off of supplemental O2 as tolerated - Maintain SpO2 88-92% - RT following, airway clearance - On discharge would need good pulmonology FU, could benefit from pulmonary rehab. 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 Multiple doses of IV lasix given, titrated to kidney function and respiratory function. - Oral diuresis with lasix 20mg. CHRISTIANO resolved. Patient's creatinine on admission 2.54, baseline Cr about 1 per note from [facility]. - Daily BMP - Strict I/Os Urinary Retention Denies retention at home but has thus far failed void trial 02/18, 02/22 - lewis was replaced 02/24, likely can do void trial in 1-2 days to see if retention is improved bytamsulosin - tamsulosin 0.4 at bedtime. Afib with RVR Patient denies h/o AF or taking eliquis, but report from [facility] said his last dose of eliquis was 02/13). EDGAR-VASc score of 4 with 4.8% stroke risk. - Started Eliquis 2.5mg BID (dose reduced given pt's advanced age, serum Cr., and weight) - Dc'd Telemetry monitoring d/t stable rate control over the past several days, low threshold to restart if rates sustained >110. - Continue OUTREACH TEAM MEMBER metoprolol XL 25 mg daily Right femoral neck fracture s/p R hip cemented hemiarthroplasty 02/16 - Ortho recs - WBAT RLE, AAT with posterior hip precautions - Mepilex dressing to remain in place until 7 days postop (03/05/24) okay to leave wound open to air at that time. Please replace Mepilex if it becomes saturated. - Scheduled tylenol - Hydromorphone 2mg PO PRN - PT/OT routine - 2 weeks postoperative wound check to be completed by rehabilitation or orthopedic MD/CHAVA. 6 weekspostoperative follow-up with orthopedic trauma clinic for repeat clinical and radiographic evaluation. - Needs osteoporosis treatment post DC, ortho placed referral to the Fracture Liaison Service with [facility] Endocrinology - Vit D 2000U/d - PT recs TANI Chronic: HTN - Cont OUTREACH TEAM MEMBER metoprolol XL 25 mg daily - Holding OUTREACH TEAM MEMBER amlodipine 10 mg daily GERD - OUTREACH TEAM MEMBER pantoprazole 40/d Constipation, resolved VTE Prophylaxis: apixaban 2.5mg BID Code status: Limitation of Treatment DNR Do not intubate (DNI) Disposition: awaiting TANI, medically ready for discharge FENG COTTON MD Internal Medicine, PGY-1 Contact: Secure chat preferred 02/25/2024 7:31 Attending Attestation I interviewed and examined the patient. I have personally reviewed interval events, laboratory data, and imaging. I discussed the case with the inpatient resident team. I agree with findings and planof care as documented by the resident (or have edited in blue). Cuco Vazquez MD Internal Medicine Hospitalist 02/25/24 16:01 * Israel Herrmann RT - 02/24/2024 1408 EST Respiratory Consult/Progress Note Indications for Respiratory therapy: COPD Data Vitals: Heart Rate: 88 BPM, Resp: 20, SpO2: 93 % FIO2/O2 Device: O2 Flow Rate (L/min): 3 l/min, , O2 Device: Nasal cannula, FIO2 %: 40 % RT Orders: BID Symbicort 2 puffs Daily Spiriva 2 puffs PRN Duoneb PRN VPEP Protocol Scoring: Bronchodilator/Inhalation Therapy Frequency Bronchodilator - Clinical Indications: History of COPD Breath Sounds: Any abnormal BS decreased Response: Mild response, increase subjective per 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 Pulse: <100 Resp Rate: 18-25 SOB: With exertion Total Score: 4 Comment:: Continue QID Frequency Based On Total Score: 0-4 = PRN 5-7 = QID 8-10 = Q4H 11-12 = Q2H Airway Clearance Therapy Frequency Airway Clearance - Clinical Indications: Infiltrate on CXR Breath Sounds: Clear / diminished Sputum: Small (tsp) / None Consistency: Thin Cough Effort: Strong/ productive Color: Clear / white Total Score: 1 Comment: PRN Frequency Based On Total Score: 0-3 = PRN 4-6 = QID and PRN 7-9 = Q4H and PRN 10-11 = Q2H and PRN Hyperinflation Therapy Frequency Hyperinflation - Clinical Indications: Decreased breath sounds with increased FiO2 Breath Sounds: Other Surgery: No X-Ray / Atelectasis: No O2 Requirements: 0-2 L above baseline Mobility Status: Mobile / at baseline Total: 2 Comment: QID Frequency Based On Total Score: 0-3 = PRN 4-6 = QID and PRN 7-9 = Q4H and PRN 10-12 = Q2H and PRN Action/Events Respiratory events; Pt refused neb this morning. made PRN which seems appropriate. Pt did VPEP and stated he does iton his own. Pt did struggle with MDI/spacer. Response/Results Weaning and Toleration of treatments; RT PHIL 02/24/24 * Cuco Vazquez MD - 02/24/2024 1252 EST Medicine Progress Note Service Date: 02/24/2024 Admit Date: 02/16/2024 15:41 Reason for Admission: 83 y.o. male who presented with a chief complaint of fall, and was admitted for surgical management of a right femoral neck fracture in the setting of acute on chronic respiratory failure and severe PaHTN. 24 Hour Events: - Weaned to 3L/min NC - NAEO Subjective/Objective Subjective Noe stated that he is uncomfortable today. Was sliding off his bed quite a bit. He denies any CP, SOB, nausea, chills, YANES or dizziness. Pain controlled. No acute concerns, would love to go to rehab closer to family in [place]. Objective Vital Signs Temp: [37 ??C (98.6 ??F)-37.1 ??C (98.8 ??F)] , Heart Rate: [80 BPM-95 BPM] , Resp: [18-23] , BP: (125-131)/(59-60) , SpO2: [90 %-94 %] Physical Exam Gen: Alert, frail, engaged, NAD HEENT: appreciable mucus membrane swelling on left lower eyelid. Lungs: CTAB in anterior russell Heart: RRR (back in NSR on tele) Extremities: no PARISH, right thigh is soft and dressings C/D/I Medications Reviewed. Required 4mg oral dilaudid for pain. Labs Reviewed: Recent Labs 02/22/24 1101 02/23/24 1204 02/24/24 0922 WBC 22.75* 19.09* 22.32* HGB 11.7* 11.6* 11.6* HCT 34.6* 35.4* 34.4* PLT 270 274 311 Recent Labs 02/22/24 1101 02/23/24 1204 02/24/24 0922 NA 138 138 137 K 4.5 4.6 4.7 CL 95* 95* 96 CO2 37* 39* 36* BUN 56* 51* 48* CREATININE 1.27* 1.10 1.04 MRSA PCR: negative Imaging Reviewed: XR CHEST PORTABLE 1 VIEW Result Date: 02/18/2024 Bilateral small pleural effusions and bibasilar opacities compatible with atelectasis. [id number] XR HIP RIGHT 1 VIEW Result Date: 02/17/2024 FINDINGS/IMPRESSION: 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 No periprosthetic fracture is seen. No acute left hip abnormality is seen. Atherosclerotic calcifications arepresent bilaterally. [id number] XR HIP LEFT 1 VIEW Result Date: 02/17/2024 FINDINGS/IMPRESSION: 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 No periprosthetic fracture is seen. No acute left hip abnormality is seen. Atherosclerotic calcifications arepresent bilaterally. [id number] CT ANGIO CHEST PE PROTOCOL Result Date: 02/17/2024 1. No evidence of pulmonary embolism. 2. Patchy opacity in the periphery of the right middle lobe, lingula and posterior segment of the right upper lobe, favored to reflect atelectasis, although superimposed infection is not excluded. 3. Large mucous plugs in the trachea and occluding several segmental bronchi to the lower lobes bilaterally. 4. 1.1 [...] artery and aortic valve calcification. 8. I havepersonally reviewed the images and the above interpretation and agree with the findings. [id number] XR HIP RIGHT 1 VIEW Result Date: 02/16/2024 Findings/impression: Redemonstrated right femoral neck fracture, not significantly changed. No left-sided hip fracture or dislocation. Mild degenerative changes of the left hip. The soft tissues are unremarkable. [id number] XR HIP LEFT 2-3 VIEWS OPTIONAL PELVIS Result Date: 02/16/2024 Findings/impression: Redemonstrated right femoral neck fracture, not significantly changed. No left-sided hip fracture or dislocation. Mild degenerative changes of the left hip. The soft tissues are unremarkable. [id number] XR CHEST PORTABLE 1 VIEW Result Date: 02/16/2024 Small bilateral pleural effusions. Slight interval increase in patchy airspace opacities at both lung bases and in the suprahilar right lung. [id number] Assessment/Plan Assessment Noe Sue is a 83 y.o. male with a PMHx of COPD (3-5L home oxygen), possible AF (he denies ever being told he has AF), GERD, and HTN, who was transferred from [facility] to [facility] and then [facility] for surgical management of a right femoral neck fracture in the setting of acute on chronic respiratory failure and severe PaHTN. Patient was initiated on treatment of COPD flare/CAP and diuresis for fluid overload with improvement in his respiratory status. Patient is also s/p right hip cemented unipolar hemiarthroplasty on 02/17/2024 (Dr. Ceja). Surgery well tolerated. Course additionally c/b AF w/ RVR converted to NSR s/pamiodarone, now resolved. Patient is stable, now on home O2 settings. Plan Multifactorial acute on chronic hypoxic hypercapnic respiratory failure (baseline home O2 3-5L NC) likely 2/2 COPD exacerbation. Chest CTA was notable for no PE, extensive areas of mucous plugging, bilateral effusions and a spiculated nodule in the lingula. S/p Ceftriaxone + doxycycline 5 days course completed, last dose 02/18. S/p prednisone 40mg x7d. - Duoneb q4h prn - Continue Symbicort q12h (LABA/ICS), spiriva daily to replace OUTREACH TEAM MEMBER LAMA - Hold OUTREACH TEAM MEMBER Anoro Ellipta (LAMA/LABA) - Wean off of supplemental O2 as tolerated - Maintain SpO2 88-92% - RT following, airway clearance - On discharge would need good pulmonology FU, could benefit from pulmonary rehab. 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 Multiple doses of IV lasix given, titrated to kidney function and respiratory function. - Oral diuresis with lasix 20mg. CHRISTIANO resolved. Patient's creatinine on admission 2.54, baseline Cr about 1 per note from [facility]. - Daily BMP - Strict I/Os Urinary Retention Denies retention at home but has thus far failed void trial 02/18 - remove lewis and repeat void trial today 02/22 Afib with RVR Patient denies h/o AF or taking eliquis, but report from [facility] said his last dose of eliquis was 02/13). EDGAR-VASc score of 4 with 4.8% stroke risk. - Started Eliquis 2.5mg BID (dose reduced given pt's advanced age, serum Cr., and weight) - Dc'd Telemetry monitoring d/t stable rate control over the past several days, low threshold to restart if rates sustained >110. - Continue OUTREACH TEAM MEMBER metoprolol XL 25 mg daily Right femoral neck fracture s/p R hip cemented hemiarthroplasty 02/16 - Ortho recs - WBAT RLE, AAT with posterior hip precautions - Mepilex dressing to remain in place until 7 days postop (03/05/24) okay to leave wound open to air at that time. Please replace Mepilex if it becomes saturated. - Scheduled tylenol - Hydromorphone 2mg PO PRN - PT/OT routine - 2 weeks postoperative wound check to be completed by rehabilitation or orthopedic MD/CHAVA. 6 weekspostoperative follow-up with orthopedic trauma clinic for repeat clinical and radiographic evaluation. - Needs osteoporosis treatment post DC, ortho placed referral to the Fracture Liaison Service with [facility] Endocrinology - Lewis catheter placed due to urinary retention, removed 02/22 - Vit D 2000U/d - PT recs TANI Chronic: HTN - Cont OUTREACH TEAM MEMBER metoprolol XL 25 mg daily - Holding OUTREACH TEAM MEMBER amlodipine 10 mg daily GERD - OUTREACH TEAM MEMBER pantoprazole 40/d Constipation - Miralax BID, senna 2 tabs at night VTE Prophylaxis: apixaban 2.5mg BID Code status: Limitation of Treatment DNR Do not intubate (DNI) Disposition: awaiting TANI, medically ready for discharge FENG COTTON MD Internal Medicine, PGY-1 Contact: Secure chat preferred 02/24/2024 12:57 Attending Attestation I interviewed and examined the patient. I have personally reviewed interval events, laboratory data, and imaging. I discussed the case with the inpatient resident team. I agree with findings and planof care as documented by the resident (or have edited in blue). Cuco Vazquez MD Internal Medicine Hospitalist 02/24/24 15:16 * Russell Rodriguez MD - 02/24/2024 0601 EST Orthopaedic Surgery Progress Note Admit Date: 02/16/2024 Hospital Day: LOS: 7 days Problem: Right femoral neck fracture Procedure: Right hip cemented unipolar hemiarthroplasty on 02/17/[address] Ceja Subjective: 24 hours: Discharge delayed given O2 concerns Plan for discharge possibly Monday Patient seen resting comfortably in bed. Patient denied significant nausea, vomiting, fevers, or chills. Reports pain is tolerable. Doing well this morning on nasal cannula. Reports he was out of bedyesterday however it reportedly did not go to well, patient agreeing that he should work with physical therapy to regain strength Objective: Blood pressure 126/59, pulse 91, temperature 37.1 ??C (98.7 ??F), temperature source Oral, resp. rate 18, height 175.3 cm (69.02), weight 59 kg (130 lb), SpO2 94%. 02/21 1500 - 02/22 1459 In: - Out: 1200 [Urine:1200] General: No acute distress Cardio: Appears well perfused Respiratory: Non-labored Focused MSK: RLE Dressing in place, clean, dry, and intact Sensation intact to light touch in peripheral nerve distributions: DP/SP/T/S/S 5/5 EHL; 5/5 TA; 5/5 GSC; able to perform straight leg raise Labs: WBC/Hgb/Hct/Plts: 19.09/11.6/35.4/274 (02/23 1204) Na/K/Cl/CO2: 138/4.6/95/39 (02/23 1204) BUN/Cr/glu/ALT/AST/amyl/lip: 51/1.10/223/--/--/--/-- (02/23 1204) Assessment: Noe Sue is a 83 y.o. male PMH significant for COPD with chronic hypoxic respiratory failure (3-5L O2 at baseline), Atrial fibrillation on aspirin who orthopedics was consulted for right femoral neck fracture. He is status post definitive treatment of his right femoral neck fracture with a right hip cementedunipolar hemiarthroplasty on 02/17/[address] Ceja. No plan for further surgical intervention. Patient remains on the medical service given initial transfer to the MICU, as well as ongoing medical complexity Plan: DVT/VTE Chemoprophylaxis: Inpatient plan: OUTREACH TEAM MEMBER Eliquis Discharge plan: Same Wound Care: Inpatient plan: Open to air Discharge plan: Same Activity/Weightbearing: Inpatient plan: Weightbearing as tolerated otherwise As tolerated/up ad leonidas Discharge plan: Same Follow up/further operative care: Inpatient plan: None anticipated Discharge plan: 2 weeks postoperative wound check to be completed by rehabilitation or orthopedic MD/CHAVA. 6 weeks postoperative follow-up with orthopedic trauma clinic for repeat clinical and radiographic evaluation. Recommend discharging on 2000 IU vitamin D3 daily per orthopedic trauma service protocol. Referral for postoperative orthopedic follow up at 6 week post op and to the Fracture Liaison Service at [facility] endocrinology placed Pain management: Inpatient plan: Multimodal Discharge plan: Multimodal Antibiotics and other medications: Inpatient plan: Perioperative Ancef complete Discharge plan: None Diet: DIET REGULAR PT/OT: TANI Dispo: Pending TANI acceptance Orthopedics will continue to follow peripherally Russell Rodriguez MD 02/23/24 20:17 Orthopaedic Surgery, PGY-2 Pager [phone] Cosigned by Fred Fernández MD at 02/24/2024 12:29 EST * Isaac Bowden III, RT - 02/23/2024 1524 EST Respiratory Consult/Progress Note Indications for Respiratory therapy: COPD Data Vitals: Heart Rate: 95 BPM, Resp: 23, SpO2: 90 % FIO2/O2 Device: O2 Flow Rate (L/min): 5 l/min, , O2 Device: Nasal cannula, FIO2 %: 40 % RT Orders: QID Duo QID Vpep BID symbicort Daily Spiriva Protocol Scoring: Bronchodilator/Inhalation Therapy Frequency Bronchodilator - Clinical Indications: History of COPD Breath Sounds: Any abnormal BS decreased Response: Mild response, increase subjective per 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 Pulse: <100 Resp Rate: 18-25 SOB: With exertion Total Score: 4 Comment:: Continue QID Frequency Based On Total Score: 0-4 = PRN 5-7 = QID 8-10 = Q4H 11-12 = Q2H Airway Clearance Therapy Frequency Airway Clearance - Clinical Indications: Infiltrate on CXR Breath Sounds: Clear / diminished Sputum: Small (tsp) / None Consistency: Thin Cough Effort: Strong/ productive Color: Clear / white Total Score: 1 Comment: PRN Frequency Based On Total Score: 0-3 = PRN 4-6 = QID and PRN 7-9 = Q4H and PRN 10-11 = Q2H and PRN Hyperinflation Therapy Frequency Hyperinflation - Clinical Indications: Decreased breath sounds with increased FiO2 Breath Sounds: Diminished / crackles Surgery: No X-Ray / Atelectasis: No O2 Requirements: 2-4 L above baseline Mobility Status: In chair Total: 6 Comment: QID Frequency Based On Total Score: 0-3 = PRN 4-6 = QID and PRN 7-9 = Q4H and PRN 10-12 = Q2H and PRN Action/Events Respiratory events; Pt on 5 liters of oxygen (2.5 @ home) and drops with exertion. Maintain QID scheduled treatments. ISAAC BOWDEN III, RT 02/23/24 * Cuco Vazquez MD - 02/23/2024 1522 EST Medicine Progress Note Service Date: 02/23/2024 Admit Date: 02/16/2024 15:41 Reason for Admission: 83 y.o. male who presented with a chief complaint of fall, and was admitted for surgical management of a right femoral neck fracture in the setting of acute on chronic respiratory failure and severe PaHTN. 24 Hour Events: - Weaned to 5L/min NC - NAEO Subjective/Objective Subjective Noe stated that he is doing well today. He denies any CP, SOB, nausea, chills, YANES or dizziness.Pain controlled. No acute concerns, would love to go to rehab closer to family in [place]. Objective Vital Signs Temp: [35.8 ??C (96.5 ??F)-37.1 ??C (98.7 ??F)] , Heart Rate: [81 BPM-95 BPM] , Resp: [15-23] , BP:(113-126)/(56-59) , SpO2: [90 %-97 %] Physical Exam Gen: Alert, frail, engaged, NAD Lungs: CTAB in anterior russell Heart: RRR (back in NSR on tele) Extremities: no PARISH, right thigh is soft and dressings C/D/I Medications Reviewed. Required 6mg oral dilaudid for pain. Labs Reviewed: Recent Labs 02/21/24 0958 02/22/24 1101 02/23/24 1204 WBC 15.67* 22.75* 19.09* HGB 10.6* 11.7* 11.6* HCT 31.7* 34.6* 35.4* PLT 196 270 274 Recent Labs 02/21/24 0958 02/22/24 1101 02/23/24 1204 NA 138 138 138 K 4.1 4.5 4.6 CL 95* 95* 95* CO2 34* 37* 39* BUN 54* 56* 51* CREATININE 1.38* 1.27* 1.10 MRSA PCR: negative Imaging Reviewed: XR CHEST PORTABLE 1 VIEW Result Date: 02/18/2024 Bilateral small pleural effusions and bibasilar opacities compatible with atelectasis. [id number] XR HIP RIGHT 1 VIEW Result Date: 02/17/2024 FINDINGS/IMPRESSION: 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 No periprosthetic fracture is seen. No acute left hip abnormality is seen. Atherosclerotic calcifications arepresent bilaterally. [id number] XR HIP LEFT 1 VIEW Result Date: 02/17/2024 FINDINGS/IMPRESSION: 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 No periprosthetic fracture is seen. No acute left hip abnormality is seen. Atherosclerotic calcifications arepresent bilaterally. [id number] CT ANGIO CHEST PE PROTOCOL Result Date: 02/17/2024 1. No evidence of pulmonary embolism. 2. Patchy opacity in the periphery of the right middle lobe, lingula and posterior segment of the right upper lobe, favored to reflect atelectasis, although superimposed infection is not excluded. 3. Large mucous plugs in the trachea and occluding several segmental bronchi to the lower lobes bilaterally. 4. 1.1 [...] artery and aortic valve calcification. 8. I havepersonally reviewed the images and the above interpretation and agree with the findings. [id number] XR HIP RIGHT 1 VIEW Result Date: 02/16/2024 Findings/impression: Redemonstrated right femoral neck fracture, not significantly changed. No left-sided hip fracture or dislocation. Mild degenerative changes of the left hip. The soft tissues are unremarkable. [id number] XR HIP LEFT 2-3 VIEWS OPTIONAL PELVIS Result Date: 02/16/2024 Findings/impression: Redemonstrated right femoral neck fracture, not significantly changed. No left-sided hip fracture or dislocation. Mild degenerative changes of the left hip. The soft tissues are unremarkable. [id number] XR CHEST PORTABLE 1 VIEW Result Date: 02/16/2024 Small bilateral pleural effusions. Slight interval increase in patchy airspace opacities at both lung bases and in the suprahilar right lung. [id number] Assessment/Plan Assessment Noe Sue is a 83 y.o. male with a PMHx of COPD (3-5L home oxygen), possible AF (he denies ever being told he has AF), GERD, and HTN, who was transferred from [facility] to [facility] and then [facility] for surgical management of a right femoral neck fracture in the setting of acute on chronic respiratory failure and severe PaHTN. Patient was initiated on treatment of COPD flare/CAP and diuresis for fluid overload with improvement in his respiratory status. Patient is also s/p right hip cemented unipolar hemiarthroplasty on 02/17/2024 (Dr. Ceja). Surgery well tolerated. Course additionally c/b AF w/ RVR converted to NSR s/pamiodarone, now resolved. Patient is stable, now on home O2 settings. Plan Multifactorial acute on chronic hypoxic hypercapnic respiratory failure (baseline home O2 3-5L NC) likely 2/2 COPD exacerbation. Chest CTA was notable for no PE, extensive areas of mucous plugging, bilateral effusions and a spiculated nodule in the lingula. S/p Ceftriaxone + doxycycline 5 days course completed, last dose 02/18. - Duoneb q6h - Continue Symbicort q12h (LABA/ICS), spiriva daily to replace OUTREACH TEAM MEMBER LAMA - Prednisone to 40 mg daily since 02/18 (Pt has received 2x 40mg 02/14-02/15 and 2x 30 mg prednisone 02/17 -02/18), duration tbd by respiratory status. - Hold OUTREACH TEAM MEMBER Anoro Ellipta (LAMA/LABA) - Wean off of supplemental O2 as tolerated - Maintain SpO2 88-92% - RT following, airway clearance - On discharge would need good pulmonology FU, could benefit from pulmonary rehab. 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 Multiple doses of IV lasix given, titrated to kidney function and respiratory function. - Oral diuresis with lasix 20mg, will consider as longer term maintenance dosing. CHRISTIANO resolved. Patient's creatinine on admission 2.54, baseline Cr about 1 per note from [facility]. - Daily BMP - Strict I/Os Urinary Retention Denies retention at home but has thus far failed void trial 02/18 - remove lewis and repeat void trial today 02/22 Afib with RVR Patient denies h/o AF or taking eliquis, but report from [facility] said his last dose of eliquis was 02/13). EDGAR-VASc score of 4 with 4.8% stroke risk. - Started Eliquis 2.5mg BID (dose reduced given pt's advanced age, serum Cr., and weight) - Dc'd Telemetry monitoring d/t stable rate control over the past several days, low threshold to restart if rates sustained >110. - Continue OUTREACH TEAM MEMBER metoprolol XL 25 mg daily Right femoral neck fracture s/p R hip cemented hemiarthroplasty 02/16 - Ortho recs - WBAT RLE, AAT with posterior hip precautions - Mepilex dressing to remain in place until 7 days postop (03/05/24) okay to leave wound open to air at that time. Please replace Mepilex if it becomes saturated. - Scheduled tylenol - Hydromorphone 2mg PO PRN - PT/OT routine - 2 weeks postoperative wound check to be completed by rehabilitation or orthopedic MD/CHAVA. 6 weekspostoperative follow-up with orthopedic trauma clinic for repeat clinical and radiographic evaluation. - Needs osteoporosis treatment post DC, ortho placed referral to the Fracture Liaison Service with [facility] Endocrinology - Lewis catheter placed due to urinary retention - Vit D 2000U/d - PT recs TANI Chronic: HTN - Cont OUTREACH TEAM MEMBER metoprolol XL 25 mg daily - Holding OUTREACH TEAM MEMBER amlodipine 10 mg daily GERD - OUTREACH TEAM MEMBER pantoprazole 40/d Constipation - Miralax BID, senna 2 tabs at night VTE Prophylaxis: apixaban 2.5mg BID Code status: Limitation of Treatment DNR Do not intubate (DNI) Disposition: awaiting TANI May Mauricio MD Internal Medicine, PGY-2 Epic chat Pager [phone] Attending Attestation I interviewed and examined the patient. I have personally reviewed interval events, laboratory data, and imaging. I discussed the case with the inpatient resident team. I agree with findings and planof care as documented by the resident (or have edited in blue). Cuco Vazquez MD Internal Medicine Hospitalist 02/23/24 21:26 * Julianne Pascal - 02/23/2024 1304 EST [facility] Department of Case Management and Social Work Case Management Progress Note Patient Name Level of Care and Accommodation Code: Patient Class: Medically Ready: Y/N Noe Sue Acute General Inpatient y Primary Dx: Decisional Capacity: Y/N Primary Support/ CareGiver: Advance Directive Acute hypoxic respiratory failure ([facility]-CMS) taylor Godinez Advance Directives (For Healthcare) Healthcare Directive: No, patient does not have advance directive for healthcare treatment Disposition Information Appropriate to transfer back: Y/N Length of Stay (in days): Estimated Date of D/C: LTC Medicaid Status: n 7 02/22 na Primary Care Provider: AR/TANI/SNF referred: Y/N Bed Offers: Y/N Escalated to Leadership: YRita toth Mobility Level: Recommended D/C Location Payor: Bedside Mobility Assessment Tool (BMAT) Bedrest or non-weight bearing orders?: Yes Recommended Discharge Destination PT Recommended Discharge Destination: Subacute rehabilitation Payor: MEDICARE / Plan: MEDICARE A/B / Product Type: Medicare GL / Barriers to Discharge pending TANI bed offer Plan CASE MANAGEMENT NOTE Pt has been deemed appropriate for placement at a care home facility (SNF). Listed patient at the following facilities: [facility] and [facility] Explained to patient and/or family that patients who are deemed medically ready for discharge to a SNF will be listed with all the facilities in the surrounding area of their home. We will make everyeffort to discharge the patient a SNF of their preference or an area of preference that meets the patient's health care needs. We will provide the patient with a choice of bed offers from accepting fa cilities. If there is no SNF bed available or being offered in the patient's preferred area after 1day, the search will be expanded. The patient will be expected to accept the first available bed offer as determined to be reasonable by the payor. If the patient is ready for discharge & no longer requires acute care, or refused to accept appropriate placement, this could result in a financialobligation to the patient for the cost of the continued hospital stay. CM talked with patient's family per patient's request Addendum: [facility] reviewing - concern for 02 stability - will look again on Monday [facility] - may have bed available on Monday - [employer]-Signature TAMMY Navarrete Pipe Inspector II Epic chat preferred. 02/23/2024 13:08 02/23/24 13:04 * Russell Rodriguez MD - 02/23/2024 0640 EST Orthopaedic Surgery Progress Note Admit Date: 02/16/2024 Hospital Day: LOS: 6 days Problem: Right femoral neck fracture Procedure: Right hip cemented unipolar hemiarthroplasty on 02/17/[address] Ceja Subjective: 24 hours: Planning to DC to [facility]ANI PT: TANI Afebrile, hemodynamically stable Patient seen resting comfortably in bed. Patient denied significant nausea, vomiting, fevers, or chills. Reports pain is tolerable. Breathing well on nasal cannula. Amenable to discharge. Objective: Blood pressure 113/56, pulse 91, temperature 35.8 ??C (96.5 ??F), temperature source Oral, resp. rate 16, height 175.3 cm (69.02), weight 58.1 kg (128 lb), SpO2 97%. 02/20 1500 - 02/21 1459 In: 200 [P.O.:200] Out: 1200 [Urine:1200] General: No acute distress Cardio: Appears well perfused Respiratory: Non-labored Focused MSK: RLE Dressings clean, dry, and intact. Sensation intact to light touch in peripheral nerve distributions: DP/SP/T/S/S 5/5 EHL; 5/5 TA; 5/5 GSC. Able to perform a straight leg raise Labs: WBC/Hgb/Hct/Plts: 22.75/11.7/34.6/270 (02/21 1101) Na/K/Cl/CO2: 138/4.5/95/37 (02/21 1101) BUN/Cr/glu/ALT/AST/amyl/lip: 56/1.27/208/--/--/--/-- (02/21 1101) Assessment: Noe Sue is a 83 y.o. male PMH significant for COPD with chronic hypoxic respiratory failure (3-5L O2 at baseline), Atrial fibrillation on aspirin who orthopedics was consulted for right femoral neck fracture. He is status post definitive treatment of his right femoral neck fracture with a right hip cementedunipolar hemiarthroplasty on 02/17/[address] Ceja. No plan for further surgical intervention. Patient remains on the medical service given initial transfer to the MICU, as well as ongoing medical complexity Plan: DVT/VTE Chemoprophylaxis: Inpatient plan: Eliquis Discharge plan: Same Wound Care: Inpatient plan: Mepilex dressing to remain in place until 7 days postop (02/24/24); okay to leave wound open to air at that time. Please replace Mepilex if it becomes saturated. Discharge plan: See follow-up Activity/Weightbearing: Inpatient plan: WBAT otherwise As tolerated/up ad leonidas Discharge plan: Same Follow up/further operative care: Inpatient plan: None anticipated Discharge plan: 2 weeks postoperative wound check to be completed by rehabilitation or orthopedic MD/CHAVA. 6 weeks postoperative follow-up with orthopedic trauma clinic for repeat clinical and radiographic evaluation. Recommend discharging on 2000 IU vitamin D3 daily per orthopedic trauma service protocol. Referral for postoperative orthopedic follow up at 6 week post op and to the Fracture Liaison Service at [facility] endocrinology placed Pain management: Inpatient plan: Multimodal Discharge plan: Multimodal Antibiotics and other medications: Inpatient plan: Perioperative Ancef complete Discharge plan: None Diet: DIET REGULAR PT/OT: TANI Dispo: Likely DC today Russell Rodriguez MD 02/22/24 21:31 Orthopaedic Surgery, PGY-2 Pager [phone] Cosigned by Nicholas Poole MD MPH at 02/23/2024 11:12 EST * Lexii Renteria, RT - 02/22/2024 1722 EST Respiratory Consult/Progress Note Indications for Respiratory therapy: COPD Data Vitals: Heart Rate: 87 BPM, Resp: 15, SpO2: 95 % FIO2/O2 Device: O2 Flow Rate (L/min): 6 l/min, , O2 Device: Nasal cannula, FIO2 %: 40 % RT Orders: Daily Spiriva BID Symbicort QID DuoNeb QID VPEP Protocol Scoring: Bronchodilator/Inhalation Therapy Frequency Bronchodilator - Clinical Indications: History of COPD Breath Sounds: Any abnormal BS decreased Response: Mild response, increase subjective per [employer]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 Pulse: <100 Resp Rate: 18-25 SOB: With exertion Total Score: 4 Comment:: cont QID at this time Frequency Based On Total Score: 0-4 = PRN 5-7 = QID 8-10 = Q4H 11-12 = Q2H Airway Clearance Therapy Frequency Airway Clearance - Clinical Indications: Infiltrate on CXR Breath Sounds: Clear / diminished Sputum: Small (tsp) / None Consistency: Thin / thick Cough Effort: Strong/ productive Color: Clear / white Total Score: 2 Comment: PRN Frequency Based On Total Score: 0-3 = PRN 4-6 = QID and PRN 7-9 = Q4H and PRN 10-11 = Q2H and PRN Hyperinflation Therapy Frequency Hyperinflation - Clinical Indications: Decreased breath sounds with increased FiO2 Breath Sounds: Other Surgery: No X-Ray / Atelectasis: No O2 Requirements: 2-4 L above baseline Mobility Status: In chair Total: 5 Comment: QID Frequency Based On Total Score: 0-3 = PRN 4-6 = QID and PRN 7-9 = Q4H and PRN 10-12 = Q2H and PRN Action/Events Pt continues on 6L (wears 2.5L at home) nasal cannula with dips to the 80s. Breath sounds diminished on exam. Increased aeration post treatment. Using VPEP well, strong cough noted. Response/Results Continue with scheduled treatments, wean as tolerate. LEXII RENTERIA, RT 02/22/24 * Yobani Alvarez RN - 02/22/2024 1648 EST Data: Pt has COPD exacerbation & acute hypoxic respiratory failure following a fall/R hip hemiarthroplasty. Pt on venti mask. Action: Continuous spo2 maintained. Assisted pt OOB to chair & back to bed w/ venti mask, 2x assist & FWW. Pt weaned off venti mask back to 6L NC . Pt then weaned pt to 5L NC. Hourly rounding& Q2 turns compete. Response: Pt fairly tolerates ambulation. Pt maintains spo2 88-92%. Pt in bed w/ call spencer in reach. YOBANI ALVAREZ RN 02/22/2024 16:48 * Danny Gunn, PT - 02/22/2024 1632 EST [facility] Rehabilitation Therapy Acute Therapy [facility] Physical Therapy Encounter Note Date of Service: 02/22/2024 Precautions: posterior R THR precautions, WBAT RLE SUBJECTIVE: Subjective Statements Comments: patient quiet throughout session. Increased work of breathing and placed on ventimask during session. Pateint agreeable to PT assisting with back to bed. OBJECTIVE: Interventions Completed Today: Physical Therapy Today At: Time: 8624-9010 Total Treatment Time (minutes): 25 Present for the Therapy Session Comments: RN Interventions: Therapeutic Activity: Bed Mobility: Pt performed sit->supine with mod assist for lower extremities into bed and min assist for trunk and verbal cues for precautions and technique, left side of bed without bed features. Transfers: pt performed sit -> stand transfer from recliner, with min assist X 2 and verbal cuesfor hand placement/ safety and precautions. Pt performed stand to sit transfer to recliner and bed with min assist X 2 and verbal cues for hand placement/ safety and precautions. Pt amb with rolling walker, ~2 feet to transfer, min assist X 2 with verbal cues for sequencing andsafety. Encouraged pacing and breathing throughout activity. Patient sat for extended period of time between transfers in order to be cleaned due to incontinence. Venti mask placed on patient General Vital Signs Comments: SpO2 monitored and decreased to 70s on [address] on ventimask dropped into 80s with mobility but recovered quickly into 90s Patient Status at the End of the Therapy Session The patient was left in the: bed with the: Call spencer in reach Patient Status at the End of the Therapy Session Comments: RN in room with patient Dressings Dressing Status: Clean, Dry, Intact Patient/Family Education: Education Topics Topics: Activity pacing/energy conservation, Transfers, Gait, Bed mobility, Safety, Precautions/protocol Learner Learner: Patient Method: Verbal Barriers to Learning: None Outcome: Verbalized understanding, Returned demonstration, Needs practice, Requires assist Team Communication Communicated with: Nurse When: Prior to therapy session, During therapy session, After therapy session By: [id number] communication Additional communication about Patient Status and Referrals: Patient status Mobility and Gait: Mobility status ASSESSMENT: Progress limited today secondary to patient incontinent of bowel during initial stand. Respiratory status was also a limiting factor. Anticipate slow but steady progress. Patient will benefit from subacute rehab when medically ready. Recommended Discharge Destination: Subacute rehabilitation PLAN: Necessity: Continue per established treatment plan Recommended Discharge Destination: Subacute rehabilitation Recommended Discharge Services: Therapy services at rehabilitation facility Equipment Recommended: To be determined at discharge facility Danny Gunn, PT 02/22/2024 16:32 * Cuco Vazquez MD - 02/22/2024 1058 EST Medicine Progress Note Service Date: 02/22/2024 Admit Date: 02/16/2024 15:41 Reason for Admission: 83 y.o. male who presented with a chief complaint of fall, and was admitted for surgical management of a right femoral neck fracture in the setting of acute on chronic respiratory failure and severe PaHTN. 24 Hour Events: - Weaned to 5L/min NC - NAEO Subjective/Objective Subjective Noe stated that he is doing well today. He denies any CP, SOB, nausea, chills, YANES or dizziness.His breathing feels better, and he prefers the nasal cannula over the venturi mask. He also noted that his pain is well controlled. Has lewis catheter in place. Not ambulating. Otherwise, has no questions or concerns. Objective Vital Signs Temp: [36.3 ??C (97.4 ??F)-37.2 ??C (98.9 ??F)] , Heart Rate: [80 BPM-100 BPM] , Resp: [16-18] , BP: (125-135)/(54-66) , SpO2: [89 %-94 %] Physical Exam Gen: Alert, frail, engaged, NAD Lungs: few coarse crackles at L>R bases Heart: RRR (back in NSR on tele) Extremities: no PARISH, right thigh is soft and dressings C/D/I Medications Reviewed. Required 6mg oral dilaudid for pain. Labs Reviewed: Recent Labs 02/19/24 1127 02/20/24 1007 02/21/24 0958 WBC 12.57* 14.61* 15.67* HGB 11.5* 11.0* 10.6* HCT 33.2* 32.8* 31.7* PLT 148 167 196 Recent Labs 02/19/24 1127 02/20/24 1007 02/21/24 0958 NA 136 141 138 K 4.7 4.0 4.1 CL 96 96 95* CO2 35* 35* 34* BUN 70* 64* 54* CREATININE 1.86* 2.00* 1.38* MRSA PCR: negative Imaging Reviewed: XR CHEST PORTABLE 1 VIEW Result Date: 02/18/2024 Bilateral small pleural effusions and bibasilar opacities compatible with atelectasis. [id number] XR HIP RIGHT 1 VIEW Result Date: 02/17/2024 FINDINGS/IMPRESSION: 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 No periprosthetic fracture is seen. No acute left hip abnormality is seen. Atherosclerotic calcifications arepresent bilaterally. [id number] XR HIP LEFT 1 VIEW Result Date: 02/17/2024 FINDINGS/IMPRESSION: 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 No periprosthetic fracture is seen. No acute left hip abnormality is seen. Atherosclerotic calcifications arepresent bilaterally. [id number] CT ANGIO CHEST PE PROTOCOL Result Date: 02/17/2024 1. No evidence of pulmonary embolism. 2. Patchy opacity in the periphery of the right middle lobe, lingula and posterior segment of the right upper lobe, favored to reflect atelectasis, although superimposed infection is not excluded. 3. Large mucous plugs in the trachea and occluding several segmental bronchi to the lower lobes bilaterally. 4. 1.1 [...] artery and aortic valve calcification. 8. I havepersonally reviewed the images and the above interpretation and agree with the findings. [id number] XR HIP RIGHT 1 VIEW Result Date: 02/16/2024 Findings/impression: Redemonstrated right femoral neck fracture, not significantly changed. No left-sided hip fracture or dislocation. Mild degenerative changes of the left hip. The soft tissues are unremarkable. [id number] XR HIP LEFT 2-3 VIEWS OPTIONAL PELVIS Result Date: 02/16/2024 Findings/impression: Redemonstrated right femoral neck fracture, not significantly changed. No left-sided hip fracture or dislocation. Mild degenerative changes of the left hip. The soft tissues are unremarkable. [id number] XR CHEST PORTABLE 1 VIEW Result Date: 02/16/2024 Small bilateral pleural effusions. Slight interval increase in patchy airspace opacities at both lung bases and in the suprahilar right lung. [id number] Assessment/Plan Assessment Noe Sue is a 83 y.o. male with a PMHx of COPD (3-5L home oxygen), possible AF (he denies ever being told he has AF), GERD, and HTN, who was transferred from [facility] to [facility] and then [facility] for surgical management of a right femoral neck fracture in the setting of acute on chronic respiratory failure and severe PaHTN. Patient was initiated on treatment of COPD flare/CAP and diuresis for fluid overload with improvement in his respiratory status. Patient is also s/p right hip cemented unipolar hemiarthroplasty on 02/17/2024 (Dr. Ceja). Surgery well tolerated. Course additionally c/b AF w/ RVR converted to NSR s/pamiodarone, now resolved. Patient is stable, improved to nasal cannula, close to home oxygen baseline with aid of IV diuretics. Plan Multifactorial acute on chronic hypoxic hypercapnic respiratory failure (baseline home O2 3-5L NC) likely 2/2 COPD exacerbation. Chest CTA was notable for no PE, extensive areas of mucous plugging, bilateral effusions and a spiculated nodule in the lingula. S/p Ceftriaxone + doxycycline 5 days course completed, last dose 02/18. - Duoneb q6h - Continue Symbicort q12h (LABA/ICS), spiriva daily to replace OUTREACH TEAM MEMBER LAMA - Prednisone to 40 mg daily since 02/18 (Pt has received 2x 40mg 02/14-02/15 and 2x 30 mg prednisone 02/17 -02/18), duration tbd by respiratory status. - Hold OUTREACH TEAM MEMBER Anoro Ellipta (LAMA/LABA) - Wean off of supplemental O2 as tolerated - Maintain SpO2 88-92% - RT following, airway clearance - On discharge would need good pulmonology FU, could benefit from pulmonary rehab. 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 Multiple doses of IV lasix given, titrated to kidney function and respiratory function. - Oral diuresis with lasix 20mg, will consider as longer term maintenance dosing. CHRISTIANO Improving. Patient's creatinine on admission 2.54, baseline Cr about 1 per note from [facility]. - Daily BMP - Strict I/Os Afib with RVR Patient denies h/o AF or taking eliquis, but report from [facility] said his last dose of eliquis was 02/13). EDGAR-VASc score of 4 with 4.8% stroke risk. - Started Eliquis 2.5mg BID (dose reduced given pt's advanced age, serum Cr., and weight) - Dc'd Telemetry monitoring d/t stable rate control over the past several days, low threshold to restart if rates sustained >110. - Continue OUTREACH TEAM MEMBER metoprolol XL 25 mg daily Right femoral neck fracture s/p R hip cemented hemiarthroplasty 02/16 - Ortho recs - WBAT RLE, AAT with posterior hip precautions - Mepilex dressing to remain in place until 7 days postop (03/05/24) okay to leave wound open to air at that time. Please replace Mepilex if it becomes saturated. - Scheduled tylenol - Hydromorphone 2mg PO PRN - PT/OT routine - 2 weeks postoperative wound check to be completed by rehabilitation or orthopedic MD/CHAVA. 6 weekspostoperative follow-up with orthopedic trauma clinic for repeat clinical and radiographic evaluation. - Needs osteoporosis treatment post DC, ortho placed referral to the Fracture Liaison Service with [facility] Endocrinology - Lewis catheter placed due to urinary retention - Vit D 2000U/d Chronic: HTN - Cont OUTREACH TEAM MEMBER metoprolol XL 25 mg daily - Holding OUTREACH TEAM MEMBER amlodipine 10 mg daily GERD - OUTREACH TEAM MEMBER pantoprazole 40/d Constipation - Miralax BID, senna 2 tabs at night VTE Prophylaxis: apixaban 2.5mg BID Code status: Limitation of Treatment DNR Do not intubate (DNI) Disposition: Likely stable for TANI tomorrow, so long as his oxygenation remains stable at baseline on oral maintenance dose diuretic and CHRISTIANO does not worsen FENG COTTON MD Internal Medicine, PGY-1 02/22/2024 10:58 Attending Attestation I interviewed and examined the patient. I have personally reviewed interval events, laboratory data, and imaging. I discussed the case with the inpatient resident team. I agree with findings and planof care as documented by the resident (or have edited in blue). Cuco Vazquez MD Internal Medicine Hospitalist 02/22/24 12:50 * Farnaz Sanchez NP - 02/22/2024 7489 EST ORTHO CHAVA BRIEF NOTE Chart reviewed and patient's vitamin D noted to be 38 on admission for hip fracture from ground-level fall. Recommend discharging on 2000 IU vitamin D3 daily per orthopedic trauma service protocol. Referral for postoperative orthopedic follow up at 6 week post op and to the [facility]ia[facility] endocrinology placed today. The above was discussed with the primary team. Farnaz Sanchez NP Ortho Trauma Pager [phone] * Russell Rodriguez MD - 02/22/2024 2407 EST Orthopaedic Surgery Progress Note Admit Date: 02/16/2024 Hospital Day: LOS: 5 days Problem: Right femoral neck fracture Procedure: Right hip cemented unipolar hemiarthroplasty on 02/17/[address] Ceja Subjective: 24 hours: Ongoing management of pulmonary hypertension Seen by nutrition Afebrile, HDS Patient seen resting comfortably in bed. Patient denied significant nausea, vomiting, fevers, or chills. Reports pain is tolerable. Has not been out of bed Objective: Blood pressure 129/63, pulse 94, temperature 36.6 ??C (97.9 ??F), temperature source Axillary, resp. rate 18, height 175.3 cm (69.02), weight 58.1 kg (128 lb), SpO2 90%. 02/19 1500 - 02/20 1459 In: 1240 [P.O.:1200; I.V.:40] Out: 1950 [Urine:1950] General: No acute distress Cardio: Appears well perfused Respiratory: Non-labored on venti mask Focused MSK: RLE Dressings clean, dry, and intact. Sensation intact to light touch in peripheral nerve distributions: DP/SP/T/S/S 5/5 EHL; 5/5 TA; 5/5 GSC Able to perform straight leg raise Labs: WBC/Hgb/Hct/Plts: 15.67/10.6/31.7/196 (02/20 958) Na/K/Cl/CO2: 138/4.1/95/34 (02/20 958) BUN/Cr/glu/ALT/AST/amyl/lip: 54/1.38/190/--/--/--/-- (02/20 958) Assessment: Noe Sue is a 83 y.o. male PMH significant for COPD with chronic hypoxic respiratory failure (3-5L O2 at baseline), Atrial fibrillation on aspirin who orthopedics was consulted for right femoral neck fracture. He is status post definitive treatment of his right femoral neck fracture with a right hip cementedunipolar hemiarthroplasty on 02/17/2024 with Dr. Ceja. No plan for further surgical intervention. Patient remains on the medical service given initial transfer to the MICU, as well as ongoing medical complexity Plan: DVT/VTE Chemoprophylaxis: Inpatient plan: Eliquis Discharge plan: Same Wound Care: Inpatient plan: Mepilex dressing to remain in place until 7 days postop (03/05/24); okay to leave wound open to air at that time. Please replace Mepilex if it becomes saturated. Discharge plan: See follow-up Activity/Weightbearing: Inpatient plan: WBAT otherwise As tolerated/up ad leonidas Discharge plan: Same Follow up/further operative care: Inpatient plan: None anticipated Discharge plan: 2 weeks postoperative wound check to be completed by rehabilitation or orthopedic MD/CHAVA. 6 weeks postoperative follow-up with orthopedic trauma clinic for repeat clinical and radiographic evaluation. Pain management: Inpatient plan: Multimodal Discharge plan: Multimodal Antibiotics and other medications: Inpatient plan: Perioperative Ancef complete Discharge plan: None Diet: DIET REGULAR PT/OT: TANI Dispo: Pending medicine, TANI placement Russell Rodriguez MD 02/21/24 18:56 Orthopaedic Surgery, PGY-2 Pager [phone] Cosigned by Jareth Jim MD at 02/22/2024 17:43 EST Associated attestation - Jareth Jim MD - 02/22/2024 1743 EST Attestation statement: I discussed the patient with the resident/fellow at the time of the visit. Iagree with the findings and the plan of care documented in the resident's/fellow's note. * Gonzalez Epps, RT - 02/21/2024 1647 EST Respiratory Progress Note Indications for Respiratory therapy: COPD history, increased O2 requirement FiO2/O2 Device: 6L nasal cannula RT Orders: Daily Spiriva BID Symbicort QID DuoNeb QID VPEP Action / Events: 12:48 Administered scheduled DuoNeb and VPEP treatments. BBS clear and diminished, WOB normal. Weaned O2 from 40% venti mask to 6L nasal cannula. SpO2 low 90's. 16:18 Administered scheduled DuoNeb and VPEP treatments. BBS again clear and diminished, WOB normal. Patient had a strong cough that was productive for a small amount of thick, zheng/white sputum. NnW6urg 90's when patient is resting with dips down to high 80's when he is moving his arms around and shifting in bed. GONZALEZ EPPS, 02/21/2024 16:47 * Andie Cheema, SUKHDEV - 02/21/2024 1334 EST Nutrition Assessment Note: Reassessment BACKGROUND DATA Reason for Admission: 83 y.o. male who presented with a chief complaint of fall, and was admitted for surgical management of a right femoral neck fracture in the setting of acute on chronic respiratory failure and severe PaHTN. Subjective: Patient states being very thirsty this admission and has been primarily consuming liquids (juice, water, and boosts). Says he has been full from drinking so much and hasn't been eating much. DrinkingBoost Plus BID and tolerating it well. Current Nutrition Orders: Regular Diet Boost Plus TID Physical Findings: Digestive Systems: Last BM 02/19 (watery) Dentition: Teeth: Missing teeth per flowsheets Skin: full thickness wound to sacrum Allergies on file: Patient has no known allergies. Nutrition Focused Physical Exam not performed Anthropometrics: Height: 175.3 cm (69.02) Wt Readings from Last 6 Encounters: 02/20/24 58.1 kg (128 lb) 02/16/24 57.6 kg (127 lb) BMI: Body mass index is 18.89 kg/m??. Pertinent Medications: Current Facility-Administered Medications Medication Route Frequency acetaminophen (TYLENOL) tablet 1,000 mg oral Q8H apixaban (ELIQUIS) tablet 2.5 mg oral BID aspirin chewable tablet 81 mg oral DAILY blood thinner patient education booklet 1 Each other Once (Without Time Specified) budesonide-formoterol HFA (SYMBICORT) 80-4.5 mcg/actuation inhaler 2 Puff inhalation Q12H cholecalciferol (Vitamin D3) tablet 1,000 Units oral DAILY dextrose 50 % solution 12.5 g intravenous PRN Dimethicone-Zinc Oxide 20-25 % spray,non-aerosol topical BID glucagon injection 1 mg intramuscular PRN HYDROmorphone (DILAUDID) tablet 2 mg oral Q4H PRN ipratropium-albuteroL (DUONEB) 0.5 mg-3 mg(2.5 mg base)/3 mL nebulizer solution 3 mL nebulization QID ipratropium-albuteroL (DUONEB) 0.5 mg-3 mg(2.5 mg base)/3 mL nebulizer solution lidocaine (PF) 10 mg/mL (1 %) injection 2 mg intradermal PRN lidocaine 5 % (LIDODERM) patch 1 Patch transdermal DAILY metoprolol SUCCinate (TOPROL-XL) tablet 25 mg oral DAILY pantoprazole (PROTONIX) tablet 40 mg oral DAILY polyethylene glycol 3350 (MIRALAX) packet 17 g oral BID predniSONE (DELTASONE) tablet 40 mg oral DAILY senna (SENOKOT) tablet 2 Tablet oral QHS tiotropium bromide (SPIRIVA RESPIMAT) 2.5 mcg/actuation inhalation mist 2 Puff inhalation DAILY wound dressing (TRIAD) paste topical BID Pertinent Labs: Lab Results Component Value Date/Time NA 138 02/21/2024 09:58 K 4.1 02/21/2024 09:58 CO2 34 (H) 02/21/2024 09:58 CL 95 (L) 02/21/2024 09:58 BUN 54 (H) 02/21/2024 09:58 CREATININE 1.38 (H) 02/21/2024 09:58 GLUCOSEPOC 84 02/17/2024 17:48 CALCIUM 8.5 02/21/2024 09:58 MG 2.1 02/17/2024 05:58 Lab Results Component Value Date/Time HGBA1C 6.1 (H) 02/16/2024 17:00 GLUCOSEPOC 84 02/17/2024 17:48 GLUCOSEPOC 114 (H) 02/17/2024 05:58 GLUCOSEPOC 149 (H) 02/16/2024 23:45 GLUCOSEPOC 177 (H) 02/16/2024 16:59 GLUCOSEPOC 177 (H) 02/16/2024 11:39 Lab Results Component Value Date/Time VITD 38 02/18/2024 06:28 Estimated Nutrition Needs: 25 - 30 kcal/kg (using 58.1 kg) = 1452 - 1743 kcals/day 1.2 - 1.5 g/kg protein (using 58.1 kg) = 70 - 87 g protein/day Estimated Nutrition Intake: 02/15 - 02/20 25% - 75% of documented meals ASSESSMENT: RD Malnutrition Assessment Unable to assess for malnutrition at this time. Patient with poor appetite and PO intakes this admission. Eating an average of 50% of documented meals, mostly drinking his calories. Tolerating Boost Plus x2/day, will continue. Has increased protein needs to support sacral wound healing. Provided High Protein Food List and brief education to choose high protein foods when he does decide to eat instead of drink. Vitamin D is WDL. Can discontinue supplementation. Difficult to assess recent weights d/t fluctuations. No edema, so not likely fluid related. Trend biweekly. Nutrition Risk Level: High (1) MEDICAL NUTRITION THERAPY PLAN: -Continue Regular Diet -Continue Boost Plus TID -Provided high protein education and handout -Encouraged patient to increase protein intake from food and slightly decrease his fluid intake -Discontinue Vitamin D3 supplement -Biweekly weights -Monitor intake, wgt, labs, skin, bowels, comfort Andie Cheema RD, CD * Yobani Alvarez RN - 02/21/2024 1112 EST Data: Pt COPD & acute hypoxic respiratory failure on 40% venti mask. Action: Continuous pulse ox maintained. RT to bed side for duo nebs & inhalers. RT switched pt from venti mast t NC. PT now on 6L NC. Response: Pt tolerates transfer from venti mask to NC well. Pt maintains spo2 88-92% this shift. YOBANI ALVAREZ RN 02/21/2024 11:12 * Cuco Vazquez MD - 02/21/2024 0741 EST Medicine Progress Note Service Date: 02/21/2024 Admit Date: 02/16/2024 15:41 Reason for Admission: 83 y.o. male who presented with a chief complaint of fall, and was admitted for surgical management of a right femoral neck fracture in the setting of acute on chronic respiratory failure and severe PaHTN. 24 Hour Events: - Down to 12L/min (40%) satting (94% -96%) - NAEO Subjective/Objective Subjective Noe stated that he is doing well today. He denies any CP, SOB, nausea, chills, YANES or dizziness.Thinks his breathing is feeling better. He also noted that his pain is improved and well controlled. Has lewis catheter in place. Not ambulating. Otherwise, has no questions or concerns. Objective Vital Signs Temp: [36.5 ??C (97.7 ??F)-36.8 ??C (98.3 ??F)] , Heart Rate: [81 BPM-96 BPM] , Resp: [8-20] , BP: (109-129)/(54-63) , SpO2: [78 %-96 %] Physical Exam Gen: Alert, frail, engaged, NAD Lungs: few coarse crackles at L>R bases Heart: RRR (back in NSR on tele) Extremities: no PARISH, right thigh is soft and dressings C/D/I Is on 12 L/min Net = -790 mL Medications Reviewed. Required 6mg oral dilaudid for pain. Labs Reviewed: Recent Labs 02/19/24 1127 02/20/24 1007 WBC 12.57* 14.61* HGB 11.5* 11.0* HCT 33.2* 32.8* PLT 148 167 Recent Labs 02/19/24 1127 02/20/24 1007 NA 136 141 K 4.7 4.0 CL 96 96 CO2 35* 35* BUN 70* 64* CREATININE 1.86* 2.00* MRSA PCR: negative Imaging Reviewed: XR CHEST PORTABLE 1 VIEW Result Date: 02/18/2024 Bilateral small pleural effusions and bibasilar opacities compatible with atelectasis. [id number] XR HIP RIGHT 1 VIEW Result Date: 02/17/2024 FINDINGS/IMPRESSION: 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 No periprosthetic fracture is seen. No acute left hip abnormality is seen. Atherosclerotic calcifications arepresent bilaterally. [id number] XR HIP LEFT 1 VIEW Result Date: 02/17/2024 FINDINGS/IMPRESSION: 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 No periprosthetic fracture is seen. No acute left hip abnormality is seen. Atherosclerotic calcifications arepresent bilaterally. [id number] CT ANGIO CHEST PE PROTOCOL Result Date: 02/17/2024 1. No evidence of pulmonary embolism. 2. Patchy opacity in the periphery of the right middle lobe, lingula and posterior segment of the right upper lobe, favored to reflect atelectasis, although superimposed infection is not excluded. 3. Large mucous plugs in the trachea and occluding several segmental bronchi to the lower lobes bilaterally. 4. 1.1 [...] artery and aortic valve calcification. 8. I havepersonally reviewed the images and the above interpretation and agree with the findings. [id number] XR HIP RIGHT 1 VIEW Result Date: 02/16/2024 Findings/impression: Redemonstrated right femoral neck fracture, not significantly changed. No left-sided hip fracture or dislocation. Mild degenerative changes of the left hip. The soft tissues are unremarkable. [id number] XR HIP LEFT 2-3 VIEWS OPTIONAL PELVIS Result Date: 02/16/2024 Findings/impression: Redemonstrated right femoral neck fracture, not significantly changed. No left-sided hip fracture or dislocation. Mild degenerative changes of the left hip. The soft tissues are unremarkable. [id number] XR CHEST PORTABLE 1 VIEW Result Date: 02/16/2024 Small bilateral pleural effusions. Slight interval increase in patchy airspace opacities at both lung bases and in the suprahilar right lung. [id number] Assessment/Plan Assessment Noe Sue is a 83 y.o. male with a PMHx of COPD (3-5L home oxygen), possible AF (he denies ever being told he has AF), GERD, and HTN, who was transferred from [facility] to [facility] and then [facility] for surgical management of a right femoral neck fracture in the setting of acute on chronic respiratory failure and severe PaHTN. Patient was initiated on treatment of COPD flare/CAP and diuresis for fluid overload and with improvement in his respiratory status. Patient is also s/p right hip cemented unipolar hemiarthroplasty on 02/17/2024 (Dr. Ceja). Surgery well tolerated. Course additionally c/b AF w/ RVR converted to NSRs/p amiodarone, now resolved. Patient is stable, slowly improving, still requiring significant supplemental oxygen requiring hospitalization. Plan Multifactorial acute on chronic hypoxic hypercapnic respiratory failure (baseline home O2 3-5L NC) likely 2/2 COPD exacerbation vs pneumonia vs atelectasis. Chest CTA was notable for no PE, extensiveareas of mucous plugging, bilateral effusions and a spiculated nodule in the lingula. S/p Ceftriaxone + doxycycline 5 days course completed, last dose 11/11. Pt continue to require supplemental oxygen, currently on 40%/12L HFNC. Patient is slowly improving. - Duoneb q6h - Continue Symbicort q12h (LABA/ICS), spiriva daily to replace OUTREACH TEAM MEMBER LAMA - Prednisone to 40 mg daily since 02/18 (Pt has received 2x 40mg 02/14-02/15 and 2x 30 mg prednisone 02/17 -02/18), duration tbd by respiratory status. - Hold OUTREACH TEAM MEMBER Anoro Ellipta (LAMA/LABA) - Wean off of supplemental O2 as tolerated - Maintain SpO2 88-92% - RT following, airway clearance - On discharge would need good pulmonology FU, could benefit from pulmonary rehab. 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 Patient continue to have a net negative output, and although improved, continue to have respiratory stress, will reevaluate need for additional diuresis based on lab results - Repeat diuresis with Furosemide 40mg IV 02/20 CHRISTIANO Slight increase in Cr after downtrending. Patient's creatinine on admission 2.54, baseline Cr about 1 per note from [facility]. Hard to determine if worsening of CHRISTIANO is driven by hypo- or hypervolemia.Evaluating decision of diuresis daily based on creatinine. - Daily BMP - Strict I/Os Afib with RVR (Patient denies h/o AF or taking eliquis, but report from [facility] said his last dose of eliquis was 02/13). EDGAR-VASc score of 4 with 4.8% stroke risk. - Started Eliquis 2.5mg BID (dose reduced given pt's advanced age, serum Cr., and weight) - Ortho agrees with plan - Telemetry monitoring (multiple Afib episodes) - Continue OUTREACH TE[employer] MEMBER metoprolol XL 25 mg daily Right femoral neck fracture s/p R hip cemented hemiarthroplasty 02/16 - Ortho recs - WBAT RLE, AAT with posterior hip precautions - Mepilex dressing to remain in place until 7 days postop (02/24/24) okay to leave wound open to air at that time. Please replace Mepilex if it becomes saturated. - Scheduled tylenol - Hydromorphone 2mg PO PRN - Okay for Diet and DVT prophylaxis from orthopedic standpoint - PT/OT routine - 2 weeks postoperative wound check to be completed by rehabilitation or orthopedic MD/CHAVA. 6 weekspostoperative follow-up with orthopedic trauma clinic for repeat clinical and radiographic evaluation. - needs osteoporosis treatment post DC - Lewis catheter placed due to urinary retention - Vit D 1000U/d Chronic: HTN - Cont OUTREACH TE[employer] MEMBER metoprolol XL 25 mg daily - Holding OUTREACH TEAM MEMBER amlodipine 10 mg daily GERD - OUTREACH TEAM MEMBER pantoprazole 40/d Constipation - Miralax BID, senna 2 tabs at night VTE Prophylaxis: apixaban 2.5mg BID Code status: Limitation of Treatment DNR Do not intubate (DNI) Bessy Dewitt MS3 I was present with the medical student for the history, exam, and medical decision making documented. I have personally performed my own physical exam and medical decision making. I have verified andagree with (or, as indicated, have edited) the medical student's documentation. FENG COTTON MD Internal Medicine, PGY-1 02/21/2024 12:06 Attending Attestation The resident was present with the medical student for the history, exam, and medical decision making documented. I have personally performed my own physical exam and medical decision making. I have verified and agree with (or have edited in blue) the combined medical student's and resident's documentation. Cuco Vazquez MD Internal Medicine Hospitalist 02/21/24 14:21 * Russell Rodriguez MD - 02/21/2024 0629 EST Orthopaedic Surgery Progress Note Admit Date: 02/16/2024 Hospital Day: LOS: 4 days Problem: Right femoral neck fracture Procedure: Right hip cemented unipolar hemiarthroplasty on 02/17/[address] Ceja Subjective: 24 hours: PT: TANI O2: On venti mask Patient seen resting comfortably in bed. Patient denied significant nausea, vomiting, fevers, or chills. Reports pain is tolerable, however was having some discomfort. Has not ambulated Objective: Blood pressure 109/54, pulse 94, temperature 36.5 ??C (97.7 ??F), temperature source Oral, resp. rate 18, height 175.3 cm (69.02), weight 58.1 kg (128 lb), SpO2 (!) 85%. 02/18 07 - 02/19 659 In: 1080 [P.O.:1080] Out: 1575 [Urine:1575] General: No acute distress Cardio: Appears well perfused Respiratory: Non-labored Focused MSK: RLE Dressings clean, dry, and intact. Sensation intact to light touch in peripheral nerve distributions: DP/SP/T/S/S 5/5 EHL; 5/5 TA; 5/5 GSC Labs: WBC/Hgb/Hct/Plts: 14.61/11.0/32.8/167 (02/19 1007) Na/K/Cl/CO2: 141/4.0/96/35 (02/19 1007) BUN/Cr/glu/ALT/AST/amyl/lip: 64/2.00/106/--/--/--/-- (02/19 1007) Assessment: Noe Sue is a 83 y.o. male PMH significant for COPD with chronic hypoxic respiratory failure (3-5L O2 at baseline), Atrial fibrillation on aspirin who orthopedics was consulted for right femoral neck fracture. He is status post definitive treatment of his right femoral neck fracture with a right hip cementedunipolar hemiarthroplasty on 02/17/[address] Ceja. No plan for further surgical intervention. Patient remains on the medical service given initial transfer to the MICU, as well as ongoing medical complexity Plan: DVT/VTE Chemoprophylaxis: Inpatient plan: Eliquis Discharge plan: Same Wound Care: Inpatient plan: Mepilex dressing to remain in place until 7 days postop (02/24/24); okay to leave wound open to air at that time. Please replace Mepilex if it becomes saturated. Discharge plan: See follow-up Activity/Weightbearing: Inpatient plan: WBAT otherwise As tolerated/up ad leonidas. Anterior hip precautions (no extension past neutral, no external rotation past neutral, no abduction past neutral) Discharge plan: Same Follow up/further operative care: Inpatient plan: None anticipated Discharge plan: 2 weeks postoperative wound check to be completed by rehabilitation or orthopedic MD/CHAVA. 6 weeks postoperative follow-up with orthopedic trauma clinic for repeat clinical and radiographic evaluation. Pain management: Inpatient plan: Multimodal Discharge plan: Multimodal Antibiotics and other medications: Inpatient plan: Perioperative Ancef complete Discharge plan: None Diet: DIET REGULAR PT/OT: TANI Dispo: Pending medical status; TANI placement Russell Rodriguez MD 02/20/24 12:42 Orthopaedic Surgery, PGY-2 Pager [phone] Cosigned by Nigel Brock MD at 02/21/2024 21:58 EST * Lily Carrillo RT - 02/20/2024 1629 EST Respiratory Progress Note Indications for Respiratory therapy: COPD Data Vitals: Heart Rate: 96 BPM, Resp: 18, SpO2: 96 % FIO2/O2 Device: O2 Flow Rate (L/min): 40 l/min, , O2 Device: High flow nasal cannula, FIO2 %: 40 % RT Orders: HFNC QID Duo BID symbicort Q day Spiriva Action/Events Respiratory events; Throughout the day the PT has had desaturations some self correcting some not. Changes in HFNC setting at times do not improve his Spo2. He tolerated the venturi mask and is not flow dependant and does not need flow as much as he needs the 40% PT is maintaining above 88 on the Venturi and HFNC order DC and removed from the room. Response/Results Weaning and Toleration of treatments; Keep as ordered. RT CARYN 02/20/24 * Alena Richard RN - 02/20/2024 1337 EST Placed on VM as pt is eating and desating to mid to high 70's Will [address] pt back on high flow after he is done eating. * Julianne Pascal - 02/20/2024 1155 EST Initial Case Management/Social Work Assessment and Discharge Plan/Readmission Risk Assessment REASON FOR ADMISSION: Acute hypoxic respiratory failure ([facility] Patient understands reason for admission: PATIENT INFO VERIFIED: Contact Info, Address Type of housing (single family, condo, apartment, [place], single room occupancy, [facility] funded hotel room, group [facility]) - [facility] Who does the patient live with? Significant other - Gretchen Does the patient have access to their own bedroom/bathroom/kitchen - or is it shared with others? shared Discharge Delay Risk Assessment 1. Disease/Medical Condition: Diseases or conditions that result in ADL decline or continuous medical treatment, Acute respiratory infections 2. Hospitalization: Readmission within 1 month, Unplanned admission 3. Family Structure: Households of older couples (generally over 75 years of age) 4. Activities of daily living: Nursing or support will be required at discharge 6. Continued medical treatment required: Home oxygen therapy Major Barrier day total 1-6: 6 Risk for Delayed Discharge: At Risk For Delayed Discharge Does the patient meet criteria to be escalated?: Yes LIVING ARRANGEMENTS AND ACCESSIBILITY ISSUES: Living Arrangements: Spouse / significant other Handicap access: Railings into home Bathroom located on bedroom level?: Yes What in home social supports are available to the patient? Spouse / significant other Is 24/7 care available? ADVANCED DIRECTIVES, POA &/or COLST IN PLACE: Healthcare Directive: No, patient does not have advance directive for healthcare treatment DIRECTIVES FOR FINANCES: TRANSPORTATION: Transportation: Family Does the patient need discharge transport arranged?: No Expected Discharge on IV Antibiotics: No Final Discharge Destination: home with CULTURAL, MOSQUE and/or LANGUAGE factors affecting health care/discharge planning: Spiritual/Cultural Requests: Completed Insurance Information: Nutrition: DISCHARGE RISK ASSESSMENT: Requires assistance with ADLs/IADLs;Diagnosis of COPD;Polypharmacy, >7 medications;Requires assistance with medication management;History of falls;Requires assistance in management of Oxygen and/or nebulizer;Repeat hospitalizations/ED visits Total # selected above: Score > or equal to 5: This patient is HIGH RISK for re-hospitalization Tentative plan to address the risk of re-hospitalization for those at HIGH MODERATE RISK: Bring risk factors to attention of team to be addressed RAPT TOOL: Age: >75 Gender: Male Ambulation distance: Housebound most of the time Gait device: Crutch/Walker Community Services: Home health, MOW, SASH-none of one time a week Will you live with someone who will care for you?: Yes RAPT Tool Score: 6 Expected Discharge Disposition: Home Health Services SBIRT: Unable to assess-SASQ: Other (Comment) FUNCTIONAL STATUS: Assistive Devices: Walker, Wheelchair, Oxygen Walker type: Standard COMMUNITY RESOURCES/SUPPORTS: Primary Care Provider: SUZIE VILLAGOMEZ PCP Verified: Specialists: Type of Home Health Services: Home PT/OT, Nurse visit DME Provider: Darrel Pharmacy: [id number] - [place], [place] - [phone] [id number] Home Health: [facility] Other: POST HOSPITAL TRANSITION PLAN: Noe Sue is a 83 y.o. male with a PMHx of COPD (3-5L home oxygen), possible AF (he denies ever being told he has AF), GERD, and HTN, who was transferred from [facility] and then [facility] for surgical management of a right femoral neck fracture in the setting of acute on chronic respiratory failure and severe PaHTN. Patient is stable, still requiring significant supplemental oxygen requiring hospitalization. CM met with patient in room to introduce self and CM role. Patient appeared A&Ox3, and noted significant discomfort, [place] Patient reported that he lives with his partener, Gretchen, who is able toprovide support as needed. He stated that he uses a walker and sometimes a wheelchair at home, and has all the stuff he needs for DME. Patient reported that he was receiving SN and PT services from [facility] prior to hospitalization. CM confirmed with agency that they will need resumption of services noted in d/c summary, and notification of his discharge date when determined. Patient's home 02 supplier is [employer]. His family will be able to provide transportation at discharge. Pt enrolled in M2B. CM will continue to follow and coordinate a safe discharge. TAMMY Navarrete Pipe Inspector II Epic chat preferred. 02/20/2024 12:04 JULIANNE PASCAL 02/20/2024 11:55 * Laine Coe, PT - 02/20/2024 [id number] EST [facility] Therapy Acute Therapy [facility] [place] [facility] Initial Evaluation Note Date of Service: 02/20/2024 Reason for Referral: Evaluate and treat Precautions: posterior R THR precautions, WBAT RLE Precautions: Activity as tolerated, Weight bearing to tolerance SUBJECTIVE: Subjective Statements Comments: pt reports feeling ok. no pain at rest Pain Evaluation Pain Description: no pain at rest. discomfort in R hip with ROM but not rated OBJECTIVE: Patient Profile: Patient is a 83 y.o. male admitted on 02/16/2024 secondary to Acute hypoxic respiratory failure ([facility]). The patient lives at [address] [place] [address] History of Present Illness / Injury Current Illness / Injury: per MD:Noe Sue is a 83 y.o. male with a PMHx of COPD (3-5L home oxygen), possible AF (he denies ever being told he has AF), GERD, and HTN, who was transferred from [facility] to [facility] and then [facility] for surgical management of a right femoral neck fracture in the setting ofacute on chronic respiratory failure and severe PaHTN. Patient was initiated on treatment of COPD flare/CAP and diuresis for fluid overload and with improvement in his respiratory status. Patient is also s/p right hip cemented unipolar hemiarthroplasty on 02/17/2024 (Dr. Ceja). Surgery well tolerated. Course additionally c/b AF w/ RVR converted to NSR s/p amiodarone, now resolved. Living Assessment Home environment: House Home layout: Two level Entrance Stairs: Stairs to enter without rails # of Steps to Enter: 1 Bedrooms/Bathrooms: Able to live on main level with bedroom/bathroom Equipment Comments: home O2. need to clarify DME Support Support Person: Spouse/Partner Amount of Support: 24 hour supervision Living Arrangement Lives With: Spouse/Partner Comments: reports some of his family live nearby Prior Level of Function: Prior Level of Function Comments: indep w/o DME. 2.5L home O2 Occupation Occupation: Retired Medical/Surgical History: Medical history reviewed. XR CHEST PORTABLE 1 VIEW 02/18/2024 3:24 PM Clinical History/comments: hypoxia Comparison: 02/16/2024. Technique: Single portable AP view of the chest. Findings: Lines/tubes/devices: None Lungs: Left greater than right basilar opacities Pleura: Bilateral pleural effusions Cardiac and mediastinal contours: Stable Soft tissues and extrathoracic findings: No acute abnormalities Bones: No acute abnormalities Impression: Bilateral small pleural effusions and bibasilar opacities compatible with atelectasis. Medications Current Medications: Current medications reviewed Arousal, Attention, and Cognition: Arousal/Alertness: Alert Orientation Level: Oriented X 4 Following Commands: No problems noted Cardiopulmonary: General Vital Signs Comments: Pt has be desaturating with turning to mid 70's per RN. Pt currently on 40L/40% HFNC dropping to 88% with exercises. Recovery and rest 92% Integumentary/Anthropometric: Skin General Assessment Skin and Related Structure Functions: Dressing intact R hip; mild post op R thigh edema. Defer to wound RN notes for further details Devices Devices: Lewis/Indwelling catheter Posture General Assessment Posture: Not evaluated Range of Motion and Joint Integrity: Comments: Supine LLE wnl, supine AA R hip flexion 75, abduction 20. Ankle wnl Muscle Performance: Comments: LLE wnl, R ankle 5/5, knee extension 3-/5, hip flexion 3-/5 Sensation, Reflexes, and Nerve Integrity: Sensory Functions: No problems noted Neuromotor Function/Development: Neuromotor Function/Development: No problems noted Coordination/Movement Patterns General Coordination: No problems noted Balance, Mobility, and Gait: Balance Balance Evaluation: The patient has a history of falls, Not evaluated due to evaluation limited to bedside examination Bed Mobility Max x2 to boost up in bed for improved positioning - rolling with maximal assistance Transfers Didn't progress due to respiratory issues and desaturation with bed mobility Gait Not assessed Self-Care, Home Management, Work, Leisure: Self-Care, Home Management, Work, Leisure: Not evaluated Informed Consent: Informed Consent: The patient consented to the Physical Therapy evaluation. The patient agrees to and understands the Physical Therapy treatment plan and goals. Interventions Completed Today: Physical Therapy Today At: Time: 1035 x 20 minutes Interventions Included Procedures: Therapeutic exercise Therapeutic Exercise 1: supine BLE active x 10 ankle pump, gluteal/quad set. active LLE heel slide and hip ab/ad x 10. AA RLE heel slide, hip ab/ad x 10. Therapeutic Exercise 2: instructed pt with THR precautions RLE; pillow between knees to promote hipprecautions while supine Patient Status at the End of the Therapy Session The patient was left in the: bed with the: Call spencer in reach Patient/Family Education: Education Topics Topics: Exercise, Role of therapy, Positioning, Precautions/protocol, Bed mobility Learner Learner: Patient Method: Verbal Barriers to Learning: None Outcome: Verbalized understanding, Returned demonstration, Needs practice, Requires assist Team Communication Communicated with: Nurse When: Prior to therapy session By: [id number] communication Additional communication about Patient Status and Referrals: Patient status, Abnormal vital sign readings ASSESSMENT: The patient presents with a physical therapy diagnosis of: Impaired gait, Impaired mobility, Pain, Lower extremity dysfunction, Impaired self-care, Impaired ventilation, respiration (gas exchange), and aerobic capacity Impairments contribute: Physical Therapy examination reveals the following impairments: Impairments: activity tolerance, pain, range of motion, respiration, strength, ventilation, balance Activity limitations and Participation Restrictions: These impairments are contributing to the following activity limitations and participation restrictions: Activity Limitations and Participation Restrictions: activities of daily living, functional mobility/transfers, gait, resumption of roles Medical necessity: address these body structure/function impairments, activity limitations, and participation restrictions, provide education in a home exercise program to address impairments in bodyfunctions and structures and promote increased activity and participation The patient's prior level of function was: independent Current status is: below prior level of function The patient's rehabilitation potential is: good Progress may be improved by the following patient strengths: cognition, home environment, previous level of function, motivation, independent prior to admission Progress may be affected by the following patient barriers: pain tolerance, co- morbidities, vital sign response to activity, level of weakness/debility, endurance Recommended Discharge Destination: Subacute rehabilitation The patient: requires sub-acute rehabilitation as next level of care for multiple therapy disciplines at a lower intensity with the expectation to return to prior level of function/living situation. Short-Term Goals: Goals: Not Applicable Long-Term Goals: Time Frame: 2-4 weeks Goal: pt will be supervised with bed mobility with rail Status: Initiated Goal: pt will transfer supervised all surfaces Status: Initiated Goal: pt will ambulate supervised rw >75' w/o LOB Status: Initiated Goal: pt will be indep with verbalizing/demonstrating PT safety recommendations and THR precautions Status: Initiated PLAN: Necessity: Physical therapy will be provided by the physical therapist and/or physical therapist certified ophthalmic assistant when medically appropriate Frequency: 1-3 times/week Intensity: 15-60 minutes Duration: Duration of hospitalization Interventions May Include: Therapeutic activities, Therapeutic exercise, Gait training Patient/Family Education Plan: Symptom management, Equipment, Discharge planning, Falls Prevention,Instruction in precautions, Safety, Home exercise program, Role of physical therapy/occupational therapy/rehabilitation Further Data: Mobility progression Recommended Discharge Destination: Subacute rehabilitation Recommended Discharge Services: Therapy services at rehabilitation facility Equipment Recommended: To be determined at discharge facility LAINE COE PT 02/20/2024 11:25 * Alena Richard RN - 02/20/2024 0905 EST Desatted to mid 70's with turning/bedpan usse/pericare,,,on 30L oxygen via high flow, took about 10mins for pt to recover into low 90's * Cuco Vazquez MD - 02/20/2024 0832 EST Medicine Progress Note Service Date: 02/20/2024 Admit Date: 02/16/2024 15:41 Reason for Admission: 83 y.o. male who presented with a chief complaint of fall, and was admitted with a principal diagnosis of R femoral neck fracture and acute on chronic hypoxic respiratory failure 24 Hour Events: - NAEO Subjective/Objective Subjective Noe stated that he is doing well today. He denies any CP, SOB, nausea, chills, YANES or dizziness.Thinks his breathing is feeling better. Notes pain is well controlled in lower extremities. Has lewis catheter in place. LBM 02/18. Otherwise, has questions or concerns. Objective Vital Signs Temp: [36.7 ??C (98 ??F)-36.9 ??C (98.5 ??F)] , Heart Rate: [85 BPM-101 BPM] , Resp: [18-30] , BP: (112-147)/(53-66) , SpO2: [88 %-96 %] Physical Exam Gen: Alert, frail, engaged, NAD Lungs: few coarse crackles at L>R bases Heart: RRR (back in NSR on tele) Extremities: no PARISH, right thigh is soft and dressings C/D/I Is on 30L/min, needs 40L overnight Net = - 495L Medications Reviewed. Required 6mg oral dilaudid for pain. Labs Reviewed: Recent Labs 02/18/2462702/19/24 1127 WBC 13.90* 12.57* HGB 11.0* 11.5* HCT 32.3* 33.2* PLT 125* 148 Recent Labs 02/18/2462702/19/24 1127 NA 134* 136 K 4.5 4.7 CL 97 96 CO2 36* 35* BUN 70* 70* CREATININE 2.11* 1.86* Imaging Reviewed: XR CHEST PORTABLE 1 VIEW Result Date: 02/18/2024 Bilateral small pleural effusions and bibasilar opacities compatible with atelectasis. [id number] XR HIP RIGHT 1 VIEW Result Date: 02/17/2024 FINDINGS/IMPRESSION: 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 No periprosthetic fracture is seen. No acute left hip abnormality is seen. Atherosclerotic calcifications arepresent bilaterally. [id number] XR HIP LEFT 1 VIEW Result Date: 02/17/2024 FINDINGS/IMPRESSION: 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 No periprosthetic fracture is seen. No acute left hip abnormality is seen. Atherosclerotic calcifications arepresent bilaterally. [id number] CT ANGIO CHEST PE PROTOCOL Result Date: 02/17/2024 1. No evidence of pulmonary embolism. 2. Patchy opacity in the periphery of the right middle lobe, lingula and posterior segment of the right upper lobe, favored to reflect atelectasis, although superimposed infection is not excluded. 3. Large mucous plugs in the trachea and occluding several segmental bronchi to the lower lobes bilaterally. 4. 1.1 [...] artery and aortic valve calcification. 8. I havepersonally reviewed the images and the above interpretation and agree with the findings. [id number] XR HIP RIGHT 1 VIEW Result Date: 02/16/2024 Findings/impression: Redemonstrated right femoral neck fracture, not significantly changed. No left-sided hip fracture or dislocation. Mild degenerative changes of the left hip. The soft tissues are unremarkable. [id number] XR HIP LEFT 2-3 VIEWS OPTIONAL PELVIS Result Date: 02/16/2024 Findings/impression: Redemonstrated right femoral neck fracture, not significantly changed. No left-sided hip fracture or dislocation. Mild degenerative changes of the left hip. The soft tissues are unremarkable. [id number] XR CHEST PORTABLE 1 VIEW Result Date: 02/16/2024 Small bilateral pleural effusions. Slight interval increase in patchy airspace opacities at both lung bases and in the suprahilar right lung. [id number] Assessment/Plan Assessment Noe Sue is a 83 y.o. male with a PMHx of COPD (3-5L home oxygen), possible AF (he denies ever being told he has AF), GERD, and HTN, who was transferred from [facility] to [facility] and then [facility] for surgical management of a right femoral neck fracture in the setting of acute on chronic respiratory failure and severe PaHTN. Patient was initiated on treatment of COPD flare/CAP and diuresis for fluid overload and with improvement in his respiratory status. Patient is also s/p right hip cemented unipolar hemiarthroplasty on 02/17/2024 (Dr. Ceja). Surgery well tolerated. Course additionally c/b AF w/ RVR converted to NSRs/p amiodarone, now resolved. Patient is stable, still requiring significant supplemental oxygen requiring hospitalization. Plan Multifactorial acute on chronic hypoxic hypercapnic respiratory failure (baseline home O2 3-5L NC) likely 2/2 COPD exacerbation vs pneumonia vs atelectasis. Chest CTA was notable for no PE, extensiveareas of mucous plugging, bilateral effusions and a spiculated nodule in the lingula. Pt continue to require supplemental oxygen, currently on 30%/40L HFNC. - Duoneb q6h - Continue Symbicort q12h (LABA/ICS), spiriva daily to replace OUTREACH TEAM MEMBER LAMA - Hold OUTREACH TEAM MEMBER Anoro Ellipta (LAMA/LABA) - Wean off of supplemental O2 as tolerated - Maintain SpO2 88-92% - Prednisone to 40 mg daily since 02/18 (Pt has received 2x 40mg 02/14-02/15 and 2x 30 mg prednisone 02/17 -02/18), duration tbd by respiratory status - RT following, airway clearance - S/p Ceftriaxone + doxycycline 5 days course, last dose 02/18. - On discharge would need good pulmonology FU, could benefit from pulmonary rehab. Severe pulmonary HTN with RV failure Suspect group 3 pulm HTN (2/2 lung disease) S/p lasix 160 mg and 5 mg metolazone 02/16/24 at [facility] prior to transfer and 20 mg at [facility] 02/17. Patient have a net negative output and continue to have respiratory stress, thus might benefit from additional diuresis. - Repeat 40mg IV lasix Afib with RVR (Patient denies h/o AF or taking eliquis, but report from [facility] said his last dose of eliquis was 02/13). EDGAR-VASc score of 4 with 4.8% stroke risk. - Started Eliquis 2.5mg BID (dose reduced given pt's advanced age, serum Cr., and weight) - Ortho agrees with plan - Telemetry monitoring - Continue OUTREACH TEAM MEMBER metoprolol XL 25 mg daily CHRISTIANO improving, Patient's creatinine on admission 2.54 but has been trending down, baseline Cr about1 per note from [facility] - Daily BMP - Strict I/Os - Slight worsening of CHRISTIANO today, possibly secondary to diuresis. Will consider reducing or holding diuresis tomorrow as he is now appearing euvolemic. Right femoral neck fracture s/p R hip cemented hemiarthroplasty 02/16 - Ortho recs - WBAT RLE, AAT with posterior hip precautions - 2 g ancef or 24 hours postoperatively - Scheduled tylenol - Hydromorphone 2mg PO PRN - Okay for Diet and DVT prophylaxis from orthopedic standpoint - PT/OT routine - Ortho to follow clinically - needs osteoporosis treatment post DC - Lewis catheter placed due to urinary retention - Vit D 1000U/d Chronic: HTN - Cont OUTREACH TEAM MEMBER metoprolol XL 25 mg daily - Holding OUTREACH TEAM MEMBER amlodipine 10 mg daily GERD - OUTREACH TEAM MEMBER pantoprazole 40/d Constipation - Miralax BID, senna 2 tabs at night VTE Prophylaxis: apixaban 2.5mg BID Code status: Limitation of Treatment DNR Do not intubate (DNI) FENG COTTON MD Internal Medicine, PGY-1 Contact: Secure chat preferred 02/20/2024 8:42 Attending Attestation I interviewed and examined the patient. I have personally reviewed interval events, laboratory data, and imaging. I discussed the case with the inpatient resident team. I agree with findings and planof care as documented by the resident (or have edited in blue). Cuco Vazquez MD Internal Medicine Hospitalist 02/20/24 12:10 * Russell Rodriguez MD - 02/20/2024 0557 EST Orthopaedic Surgery Progress Note Admit Date: 02/16/2024 Hospital Day: LOS: 3 days Problem: Right femoral neck fracture Procedure: Right hip cemented unipolar hemiarthroplasty on 02/17/[address] Ceja Subjective: 24 hours: Transferred to floor Ongoing HFNC 50->45%/40L Afebrile, HDS Elevated PVR Started eliquis Patient seen resting comfortably in bed. Patient denied significant nausea, vomiting, or chills. Reports his pain is well-controlled. Is hopeful for discharge once his respiratory status improves. Objective: Blood pressure 120/66, pulse 88, temperature 36.7 ??C (98.1 ??F), temperature source Oral, resp. rate 30, height 175.3 cm (69.02), weight 53.1 kg (117 lb 1 oz), SpO2 95%. 02/17 1500 - 02/18 1459 In: 840 [P.O.:840] Out: 1590 [Urine:1590] General: No acute distress Cardio: Appears well perfused Respiratory: Non-labored Focused MSK: RLE Dressings clean, dry, and intact. Sensation intact to light touch in peripheral nerve distributions: DP/SP/T/S/S 5/5 EHL; 5/5 TA; 5/5 GSC. Able to flex and extend the knee. Able to perform a straight leg raise. Labs: WBC/Hgb/Hct/Plts: 12.57/11.5/33.2/148 (02/18 1127) Na/K/Cl/CO2: 136/4.7/96/35 (02/18 1127) BUN/Cr/glu/ALT/AST/amyl/lip: 70/1.86/149/--/--/--/-- (02/18 1127) PT/INR/PTT: 11.2/1.0/-- (02/16 1141) Assessment: Noe Sue is a 83 y.o. male PMH significant for COPD with chronic hypoxic respiratory failure (3-5L O2 at baseline), Atrial fibrillation on aspirin who orthopedics was consulted for right femoral neck fracture. He is status post definitive treatment of his right femoral neck fracture with a right hip cementedunipolar hemiarthroplasty on 02/17/[address] Ceja. No plan for further surgical intervention. Patient remains on the medical service given initial transfer to the MICU, as well as ongoing medical complexity Plan: DVT/VTE Chemoprophylaxis: Inpatient plan: Eliquis Discharge plan: Same Wound Care: Inpatient plan: Mepilex dressing to remain in place until 7 days postop (02/24/2024); okay to leavewound open to air at that time. Please replace Mepilex if it becomes saturated. Discharge plan: See follow-up Activity/Weightbearing: Inpatient plan: WBAT otherwise As tolerated/up ad leonidas. anterior hip precautions (no extension past neutral, no external rotation past neutral, no abduction past neutral) Discharge plan: Same Follow up/further operative care: Inpatient plan: None anticipated Discharge plan: 2 weeks postoperative wound check to be completed by rehabilitation or orthopedic MD/CHAVA. 6 weeks postoperative follow-up with orthopedic trauma clinic for repeat clinical and radiographic evaluation. Pain management: Inpatient plan: Multimodal Discharge plan: Multimodal Antibiotics and other medications: Inpatient plan: Perioperative Ancef complete Discharge plan: None Diet: DIET REGULAR PT/OT: Pending Dispo: Pending medical status, PT evaluation Russell Rodriguez MD 02/19/24 17:42 Orthopaedic Surgery, PGY-2 Pager [phone] Cosigned by Jareth Jim MD at 02/20/2024 7:36 EST Associated attestation - Jareth Jim MD - 02/20/2024 0736 EST Attestation statement: I discussed the patient with the resident/fellow at the time of the visit. Iagree with the findings and the plan of care documented in the resident's/fellow's note. * Juan Jose Smith RT - 02/20/2024 0534 EST Respiratory Progress Note Indications for Respiratory therapy: HFNC Data Vitals: Heart Rate: 91 BPM, Resp: 20, SpO2: 96 % FIO2/O2 Device: O2 Flow Rate (L/min): 40 l/min, , O2 Device: High flow nasal cannula, FIO2 %: 45 % RT Orders: VPEP QID SYMBICORT BID DUONEB QID HFNC Action/Events Respiratory events; Patient remained on HFNC but able to wean to 40L 45%. No acute desaturation episodes. RT MARYLOU 02/20/24 * Yobani Alvarez RN - 02/19/2024 1310 EST Images from the original note were not included. Data: Pt on high flow NC 40L 50%. Action: Continuous pulse ox maintained. Pt de sat to 78-83% w/ exertion, returns to normal limits 88-92% w/ rest. Provider notified at bedside. Called rapid nurse to bed side to make aware. Pt seen by RT for duonebs & inhalers. Administered 1x dose of lasix per emar. Response: Pt managing O2 sats appropriately. Pt in bed w/ call spencer in reach. YOBANI ALVAREZ RN 02/19/2024 13:10 * Cuco Vazquez MD - 02/19/2024 0718 EST Medicine Progress Note Service Date: 02/19/2024 Admit Date: 02/16/2024 15:41 Reason for Admission: 83 y.o. male who presented with a chief complaint of fall, and was admitted with a principal diagnosis of R femoral neck fracture and acute on chronic hypoxic respiratory failure 24 Hour Events: - Currently on HFNC - Episodes of A-Fib x2 - NAEO Subjective/Objective Subjective Noe stated that he is doing well today. He denies any CP, SOB, nausea, chills, YANES or dizziness.He is endorsing a 5/10 pain at surgical site. Voiding nml. No BM in the last two days. Otherwise, has questions or concerns. Review of Systems A ten point review of systems was performed and was negative except for pertinent positives noted in the HPI Objective Vital Signs Temp: [36.7 ??C (98 ??F)-37.2 ??C (98.9 ??F)] , Heart Rate: [81 BPM-105 BPM] , Resp: [15-24] , BP: (113-122)/(58-68) , SpO2: [74 %-96 %] Physical Exam Gen: Alert, frail, engaged, NAD Lungs: few coarse crackles at L>R bases Heart: RRR (back in NSR on tele) Extremities: no PARISH, right thigh is soft and dressings C/D/I Date 02/19/24 0700 - 02/20/24 0659 Shift [id number] 7522-9090 24 Hour Total INTAKE P.O. 360 360 Shift Total(mL/kg) 360(6.8) 360(6.8) OUTPUT Urine(mL/kg/hr) 200 200 Shift Total(mL/kg) 200(3.8) 200(3.8) Weight (kg) 53.1 53.1 53.1 53.1 Net = - 423.2 ml Medications Reviewed. Labs Reviewed: Recent Labs 02/16/24 1700 02/17/24 0558 02/18/24 0628 WBC 19.76* 16.70* 13.90* HGB 12.5* 11.7* 11.0* HCT 37.3* 33.7* 32.3* PLT 130* 128* 125* Recent Labs 02/16/24 1700 02/17/24 0558 02/18/24 0628 NA 140 134* 134* K 5.2* 4.4 4.5 CL 97 100 97 CO2 36* 30 36* BUN 70* 69* 70* CREATININE 2.54* 2.08* 2.11* Imaging Reviewed: XR CHEST PORTABLE 1 VIEW Result Date: 02/18/2024 Bilateral small pleural effusions and bibasilar opacities compatible with atelectasis. [id number] XR HIP RIGHT 1 VIEW Result Date: 02/17/2024 FINDINGS/IMPRESSION: 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 No periprosthetic fracture is seen. No acute left hip abnormality is seen. Atherosclerotic calcifications arepresent bilaterally. [id number] XR HIP LEFT 1 VIEW Result Date: 02/17/2024 FINDINGS/IMPRESSION: 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 No periprosthetic fracture is seen. No acute left hip abnormality is seen. Atherosclerotic calcifications arepresent bilaterally. [id number] CT ANGIO CHEST PE PROTOCOL Result Date: 02/17/2024 1. No evidence of pulmonary embolism. 2. Patchy opacity in the periphery of the right middle lobe, lingula and posterior segment of the right upper lobe, favored to reflect atelectasis, although superimposed infection is not excluded. 3. Large mucous plugs in the trachea and occluding several segmental bronchi to the lower lobes bilaterally. 4. 1.1 [...] artery and aortic valve calcification. 8. I havepersonally reviewed the images and the above interpretation and agree with the findings. [id number] XR HIP RIGHT 1 VIEW Result Date: 02/16/2024 Findings/impression: Redemonstrated right femoral neck fracture, not significantly changed. No left-sided hip fracture or dislocation. Mild degenerative changes of the left hip. The soft tissues are unremarkable. [id number] XR HIP LEFT 2-3 VIEWS OPTIONAL PELVIS Result Date: 02/16/2024 Findings/impression: Redemonstrated right femoral neck fracture, not significantly changed. No left-sided hip fracture or dislocation. Mild degenerative changes of the left hip. The soft tissues are unremarkable. [id number] XR CHEST PORTABLE 1 VIEW Result Date: 02/16/2024 Small bilateral pleural effusions. Slight interval increase in patchy airspace opacities at both lung bases and in the suprahilar right lung. [id number] Assessment/Plan Assessment Noe Sue is a 83 y.o. male with a PMHx of COPD (3-5L home oxygen), possible AF (he denies ever being told he has AF), GERD, and HTN, who was transferred from [facility] to [facility] and then [facility] for surgical management of a right femoral neck fracture in the setting of acute on chronic respiratory failure and severe PaHTN. Patient was initiated on treatment of COPD flare/CAP and diuresis for fluid overload and with improvement in his respiratory status. Patient is also s/p right hip cemented unipolar hemiarthroplasty on 02/17/2024 (Dr. Ceja). Surgery well tolerated. Course additionally c/b AF w/ RVR converted to NSRs/p amiodarone. Patient is hemodynamically stable, still requiring supplemental oxygen, and transitioned to the general medicine floor for further management. Plan Multifactorial acute on chronic hypoxic hypercapnic respiratory failure (baseline home O2 3-5L NC) likely 2/2 COPD exacerbation vs pneumonia vs atelectasis. Chest CTA was notable for no PE, extensiveareas of mucous plugging, bilateral effusions and a spiculated nodule in the lingula. Pt continue to require supplemental oxygen, currently on 50%/40L HFNC. - Duoneb q6h - Continue Symbicort q12h (LABA/ICS), add spiriva daily to replace OUTREACH TEAM MEMBER LAMA - Hold OUTREACH TEAM MEMBER Anoro Ellipta (LAMA/LABA) - Wean off of supplemental O2 as tolerated - Maintain SpO2 88-92% - Increase dose of Prednisone to 40 mg daily (Pt has received 2x 40mg 02/14-02/15 and 2x 30 mg prednisone 02/17 -02/18) (note pt received 30 mg today and additional 10 mg was ordered), may need longer course than typical 5days given severity of COPD/Hypoxia - RT following, airway clearance - Ceftriaxone + doxycycline 5 days course, last dose today 02/18. Severe pulmonary HTN with RV failure Suspect group 3 pulm HTN (2/2 lung disease) S/p lasix 160 mg and 5 mg metolazone 02/16/24 at [facility] prior to transfer and 20 mg at [facility] 02/17. Patient have a net negative output and continue to have respiratory stress, thus might benefit from additional diuresis. - Furosemide 40 mg ordered nowx1 02/18 Afib with RVR (Patient denies h/o AF or taking eliquis, but report from [facility] said his last dose of eliquis was 02/13). EDGAR-VASc score of 4 with 4.8% stroke risk. - Start Eliquis 2.5mg BID (dose reduced given pt's advanced age, serum Cr., and weight) - Ortho agrees with plan - Telemetry monitoring - Continue OUTREACH TEAM MEMBER metoprolol XL 25 mg daily CHRISTIANO improving, Patient's creatinine on admission 2.54 but has been trending down, baseline Cr about1 per note from [facility] - Daily BMP - Strict I/Os Right femoral neck fracture s/p R hip cemented hemiarthroplasty 02/16 - Ortho recs - WBAT RLE, AAT with posterior hip precautions - 2 g ancef or 24 hours postoperatively - Scheduled tylenol - Hydromorphone 2mg PO PRN - Okay for Diet and DVT prophylaxis from orthopedic standpoint - PT/OT routine - Ortho to follow clinically - needs osteoporosis treatment post DC - Lewis catheter placed due to urinary retention - Checking Vit D level (cont supplement) Chronic: HTN - Cont OUTREACH TEAM MEMBER metoprolol XL 25 mg daily - Holding OUTREACH TEAM MEMBER amlodipine 10 mg daily GERD - OUTREACH TEAM MEMBER pantoprazole Constipation - Stool softer VTE Prophylaxis: apixaban 2.5mg BID Code status: Limitation of Treatment DNR Do not intubate (DNI) Bessy Dewitt MS3 I reviewed with the medical student the history, exam, and medical decision making documented. I have edited the medical student note as appropriate. Abhi Vega DO Neurology PGY-1 Epic Chat*, PAGE [phone] 02/19/24 11:55 Attending Attestation The resident was present with the medical student for the history, exam, and medical decision making documented. I have personally performed my own physical exam and medical decision making. I have verified and agree with (or have edited in blue) the combined medical student's and resident's documentation. Cuco Vazquez MD Internal Medicine Hospitalist 02/19/24 12:04 * Cecilia Farmer RT - 02/19/2024 0430 EST Respiratory Progress Note Indications for Respiratory therapy: HFNC Data Vitals: Heart Rate: 91 BPM, Resp: 20, SpO2: 90 % FIO2/O2 Device: O2 Flow Rate (L/min): 40 l/min, , O2 Device: High flow nasal cannula, FIO2 %: 50 % (INCREASED O2 TO55% BREIFLY AND BACK DOWN TO 50%) RT Orders: VPEP QID SYMBICORT BID DUONEB QID HFNC Action/Events Respiratory events; Called to pt room 0238 for o2 desaturation on 30lpm and 50%. Increased pt to 35lpm. Pt o2 sat takesaway to recover. Normally on 3-5 lpm @ home. Pt has no complaints of SOB @ rest. 0430 called back to pt room for o2 desaturation. Pt was 86% upon entering room. Increased pt o2 to 55% and 40lpm just until pt recovered and o2 was decreased to 50% RT CAROLA 02/19/24 * Wally Pettit MD - 02/19/2024 0403 EST Orthopaedic Progress Note for 02/19/24 Patient Name: Noe Sue Service: Trauma Problem: right femoral neck fracture Procedure: Right hip cemented unipolar hemiarthroplasty on 02/17/[address] Ceja 24 Hr on high flow nasal cannula overnight S- doing okay says that he was having issues with his breathing all night. Denies any chest pain. He has appropriate soreness near his right hip has not been up and out of bed. O: Blood pressure 120/58, pulse 88, temperature 36.9 ??C (98.4 ??F), temperature source Axillary, resp. rate 20, height 175.3 cm (69.02), weight 53.1 kg (117 lb 1 oz), SpO2 (!) 89%. Gen: no acute distress Pulm: labored breathing on high flow nasal cannula Focused MSK: RLE: Dressing in place CDI SILT S/S/DP/SP/T Motor: 5/5 TA/GS/FHL/EHL, fires quads and hamstrings DP palpable Labs: WBC/Hgb/Hct/Plts: 13.90/11.0/32.3/125 (02/18 628) Na/K/Cl/CO2: 134/4.5/97/36 (02/18 628) BUN/Cr/glu/ALT/AST/amyl/lip: 70/2.11/110/36/33/--/-- (02/18 628) PT/INR/PTT: 11.2/1.0/-- (02/16 114) A: Noe Sue is a 83 y.o. male PMH significant for COPD with chronic hypoxic respiratory failure (3-5L O2 at baseline), Atrial fibrillation on aspirin who orthopedics was consulted for right femoral neck fracture/be definitive treatment. Back on high flow overnight despite being on the floor. Continue PT mobilization, orthopedics will clinically follow P: No further orthopedic intervention required WBAT RLE, posterior hip precautions per the initial note 2 g ancef or 24 hours postoperatively multiple no pain control primary okay for Diet and DVT prophylaxis from orthopedic standpoint Recommend Lovenox 30 mg BID for 28 days PT/OT routine Dispo per primary WALLY PETTIT MD PGY3 Department of Orthopedics 02/19/24 4:03 Pager [phone] Cosigned by Jareth Jim MD at 02/19/2024 8:33 EST Associated attestation - Jareth Jim MD - 02/19/2024 0833 EST Attestation statement: I discussed the patient with the resident/fellow at the time of the visit. Iagree with the findings and the plan of care documented in the resident's/fellow's note. * Milly Francis, RT - 02/18/2024 1554 EST Respiratory Consult/Progress Note Indications for Respiratory therapy: copd Data Vitals: Heart Rate: 95 BPM, Resp: 15, SpO2: 92 % FIO2/O2 Device: O2 Flow Rate (L/min): 8 l/min, , O2 Device: Venturi mask, FIO2 %: 50 % RT Orders: QID Duo BID Symbicort Protocol Scoring: Bronchodilator/Inhalation Therapy Frequency Bronchodilator - Clinical Indications: History of COPD Breath Sounds: Any abnormal BS decreased Response: No change / no treatment Pulse: <100 Resp Rate: 18-25 SOB: At rest Total Score: 4 Comment:: qid Frequency Based On Total Score: 0-4 = PRN 5-7 = QID 8-10 = Q4H 11-12 = Q2H Airway Clearance Therapy Frequency Airway Clearance - Clinical Indications: Infiltrate on CXR Breath Sounds: Clear / diminished Sputum: Small (tsp) / None Consistency: None Cough Effort: Weak/ productive Color: Clear / white Total Score: 2 Comment: prn Frequency Based On Total Score: 0-3 = PRN 4-6 = QID and PRN 7-9 = Q4H and PRN 10-11 = Q2H and PRN Hyperinflation Therapy Frequency Hyperinflation - Clinical Indications: Decreased breath sounds with increased FiO2 Breath Sounds: Diminished / crackles Surgery: Yes X-Ray / Atelectasis: No O2 Requirements: > 4 L above baseline Mobility Status: In bed Total: 10 Comment: qid Frequency Based On Total Score: 0-3 = PRN 4-6 = QID and PRN 7-9 = Q4H and PRN 10-12 = Q2H and PRN Action/Events Respiratory events; Will continue current plan RT BRENDAN 02/18/24 * Yobani Alvarez RN - 02/18/2024 1456 EST Images from the original note were not included. FOUR EYES SKIN ASSESSMENT Four Eyes skin assessment was performed on admission to the unit by Yobani Alvarez RN and Kay Portillo RN. Patient has the following devices at the time of this assessment: Peripheral IV, O2 sat probe, and Lewis. Device related pressure injury present? No Areas of concern: Fill in detail for areas of concern [] Occiput [] Nose [] Ear [] Lip [] Scapula [] Spinous process [] Shoulder [] Elbow [] Iliac crest [x] Sacrum/coccyx : blanchable redness [] Ischial tuberosity [] Trochanter [] Knee [] Malleolus [] Heel [] Toe [x] Other: abdomen hernia & brusing Last Hernando Score: 16 Instructions: Add LDA for any identified wounds Add Foster image for any suspected PI or non surgical wounds Order wound consult if suspected PI identified If Hernando is < or = to 16, initiate Pressure Injury Prevention Bundle ([id number]). 02/18/2024 14:56 * Get Escalante RT - 02/18/2024 1333 EST Images from the original note were not included. Respiratory Progress Note Indications for Respiratory therapy: COPD increased O2 requirement Data Vitals: Heart Rate: 85 BPM, Resp: 18, SpO2: 92 % FIO2/O2 Device: 6 lpm NC, , O2 Device: Nasal cannula, RT Orders: 02/18/24 1700 Airway Clearance Therapy [[id number]] 4 TIMES DAILY Discontinue Reschedule 02/18/24 1333 02/16/24 2100 budesonide-formoterol HFA (SYMBICORT) 80-4.5 mcg/actuation inhaler 2 Puff Discontinue -- Dispensed INHALATION EVERY 12 HOURS 02/16/24 1613 02/16/24 2100 ipratropium-albuteroL (DUONEB) 0.5 mg-3 mg(2.5 mg base)/3 mL nebulizer solution 3 mL Discontinue -- Dispensed NEBULIZATION 4 TIMES DAILY 02/16/24 1627 Action/Events Respiratory events; 1320 arriveed frim ICU report received. Arrived to find pt had desat RN increased to 6 lpm NC neb given VPEP initiated, increased sat Response/Results Weaning and Toleration of treatments; RT Rimma 02/18/24 * Lili Inman RN - 02/18/2024 1238 EST Data: Resumed care of pt at 0700. Pt A/Ox3 and reported right hip pain 09/17. On 5 L NC, amiodarone gtt infusing at 0.5 mg/hr. Pt has substantial hand tremor bilaterally. Pt says its worse than it is at home. Action: Amiodarone gtt stopped, pt home PO metoprolol given with scheduled meds see eMAR. X1 PRN dose 2 mg Dilaudid given. A-line d/c'd. Response: Pt has transfer orders, report called to Yobani Son RN. LILI INMAN RN 02/18/2024 12:38 * Char Martinez MD - 02/18/2024 0621 EST Orthopaedic Surgery Progress Note Pt Name: Noe Sue Service: Weekend Rounding Problem: Right femoral neck fracture Procedure: Right hip cemented unipolar hemiarthroplasty on 02/17/[address] Ceja 24 Hr NAEO Weaned off of high flow to NC 6L Subjective: Resting in bed. Leg feels sore. Denies numbness or tingling. Denies fevers. Denies chest pain. Has not been out of bed yet. Objective: Blood pressure 117/55, temperature 36.4 ??C (97.6 ??F), temperature source Oral, resp. rate 15, height 175.3 cm (69.02), weight 52 kg (114 lb 11.2 oz), SpO2 (!) 89%. Gen: NAD Cards: Regular rate and rhythm as judged by peripheral pulse Pulm: Non-labored breathing, NC in place Focused MSK: RLE: Dressing C/D/I SILT S/S/DP/SP/T Motor: 5/5 TA/GS/FHL/EHL/Quads/hamstring/Iliopsoas DP +2, toes warm/well-perfused Labs: WBC/Hgb/Hct/Plts: 16.70/11.7/33.7/128 (02/16 558) Na/K/Cl/CO2: 134/4.4/100/30 (02/16 558) BUN/Cr/glu/ALT/AST/amyl/lip: 69/2.08/108/49/36/--/-- (02/16 558) PT/INR/PTT: 11.2/1.0/-- (02/16 1141) Assessment: Noe Sue is a 83 y.o. male with past medical history significant for COPD with chronic hypoxic respiratory failure (3-5L O2 at baseline), Atrial fibrillation on aspirin, who presents to transfer initially from [facility] after a fall and whom orthopedics was consulted for a right femoral neck fracture, now status post the above procedure. Recovering appropriately postoperatively. Weaned off of high flow nasal cannula overnight. Recommend continued pain control, PT, mobilization. Appreciate excellent MICU care Plan: No further orthopedic intervention Weight bearing -WBAT RLE, AAT with posterior hip precautions:Posterior hip precautions (do not flexhip beyond 90 degrees, do not internally rotate or adduct beyond midline). Abx -2 g Ancef every 8 hours for 24 hours postoperatively DVT prophylaxis -okay to resume DVT prophylaxis Diet -okay for diet from orthopedic perspective Pain control as ordered PT/OT -routine postoperative evaluation Dispo -pending clinical course Appreciate remainder of care per MICU CHAR MARTINEZ MD PGY-2 Orthopaedic Surgery 02/18/24 6:21 Cosigned by Augustine Ceja MD at 02/19/2024 21:08 EST Associated attestation - Augustine Ceja MD - 02/19/2024 2108 EST Attestation: I performed or was present during the marsh or critical portions of the visit and participated in the management of the patient on 02/16/24. I agree with the findings and plan of care as documented in the resident's/fellow's note. Augustine Ceja MD 02/19/2024 21:08 * Pete Miller DO - 02/18/2024 0621 EST MEDICAL INTENSIVE CARE UNIT (MICU) PROGRESS NOTE Admit Date: 02/16/2024 15:41 Hospital Day: LOS: 2 days Date of Service: 02/18/24 Reason for Admission to the MICU: 83 y.o. male who presented with a chief complaint of fall, and was admitted with a principal diagnosis of R femoral neck fracture. Significant 24-hour events: - Underwent R hip cemented hemiarthroplasty in OR with ortho - Weaned from HFNC to NC - Restarted on VTE prophylaxis with heparin SC FREEMAN Pat says that he feels fine today. Endorses mild R hip discomfort. Denies dyspnea, chest pain, palpitations, chills, abdominal pain, nausea, vomiting or diarrhea. OBJECTIVE Vitals: Temp: [36.4 ??C (97.6 ??F)-36.6 ??C (97.9 ??F)] , Heart Rate: [66 BPM-96 BPM] , Pulse: --, Resp: [14-31] , BP: (92-122)/(44-87) , SpO2: [83 %-100 %] , O2 Flow Rate (L/min): 5 l/min Numeric Pain Level (Scale 1-10): 6 Weight: Weight : 53.1 kg (117 lb 1 oz) Body mass index is 17.28 kg/m??. Physical Exam: General: Alert, frail, cooperative, no distress, appropriately responding to questions. HEENT: NC/AT, dry mucous membranes, no conjunctival injection or scleral icterus. Lungs: Mildly increased work of breathing, diffuse faint coarse breath sounds bilaterally. Heart: Irregularly irregular, normal S1 and S2. Abdomen: Soft, nondistended, no tenderness to palpation, bowel sounds auscultated in all four quadrants. Extremities: R hip bandaging in place, no drainage or bleeding. No LE edema b/l, pedal pulses 2+ b/l. Neurologic: A&O x3, normal speech, cranial nerves grossly intact b/l, gait was not assessed. Labs: CBC: Recent Labs 02/15/24 1519 02/16/24 0536 02/16/24169902/17/24 0558 02/18/24 0628 WBC 21.84* < > 19.76* 16.70* 13.90* RBC 4.54 < > 3.85* 3.66* 3.41* HGB 14.5 < > 12.5* 11.7* 11.0* HCT 44.8 < > 37.3* 33.7* 32.3* MCV 99* < > 97* 92 95 MCH 31.9 < > 32.5 32.0 32.3 MCHC 32.4* < > 33.5 34.7 34.1 PLT 151 < > 130* 128* 125* NEUTROABS 19.49* -- -- -- -- < > = values in this interval not displayed. BMP: Recent Labs 02/16/24169902/17/2458 02/18/24 06 NA 140 134* 134* K 5.2* 4.4 4.5 CL 97 100 97 CO2 36* 30 36* BUN 70* 69* 70* CREATININE 2.54* 2.08* 2.11* CALCIUM 9.1 8.7 8.2* MG -- 2.1 -- LABALBU 3.0* 2.8* 2.7* LFT: Recent Labs 02/16/24 17002/17/24 0558 02/18/24 0628 TBIL 0.6 0.5 <0.5 ALKPHOS 104 83 80 AST 32 36 33 ALT 50* 49 36 Coagulation: Recent Labs 02/16/24169902/17/24 1141 PROTIME 11.3 11.2 INR 1.0 1.0 PTT 20* -- Cardiac Markers: Recent Labs 02/15/24 1519 02/15/24 1751 02/16/24 0135 02/16/24 0537 02/16/24 0934 CK 272* -- -- 114 -- TROPONINI -- 0.403* 0.323* -- 0.244* Hemoglobin A1c: Recent Labs 02/16/24 1700 HGBA1C 6.1* Imaging: XR HIP RIGHT 1 VIEW Result Date: 02/17/2024 FINDINGS/IMPRESSION: 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 No periprosthetic fracture is seen. No acute left hip abnormality is seen. Atherosclerotic calcifications arepresent bilaterally. [id number] XR HIP LEFT 1 VIEW Result Date: 02/17/2024 FINDINGS/IMPRESSION: 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 No periprosthetic fracture is seen. No acute left hip abnormality is seen. Atherosclerotic calcifications arepresent bilaterally. [id number] CT ANGIO CHEST PE PROTOCOL Result Date: 02/17/2024 1. No evidence of pulmonary embolism. 2. Patchy opacity in the periphery of the right middle lobe, lingula and posterior segment of the right upper lobe, favored to reflect atelectasis, although superimposed infection is not excluded. 3. Large mucous plugs in the trachea and occluding several segmental bronchi to the lower lobes bilaterally. 4. 1.1 [...] artery and aortic valve calcification. 8. I havepersonally reviewed the images and the above interpretation and agree with the findings. [id number] XR HIP RIGHT 1 VIEW Result Date: 02/16/2024 Findings/impression: Redemonstrated right femoral neck fracture, not significantly changed. No left-sided hip fracture or dislocation. Mild degenerative changes of the left hip. The soft tissues are unremarkable. [id number] XR HIP LEFT 2-3 VIEWS OPTIONAL PELVIS Result Date: 02/16/2024 Findings/impression: Redemonstrated right femoral neck fracture, not significantly changed. No left-sided hip fracture or dislocation. Mild degenerative changes of the left hip. The soft tissues are unremarkable. [id number] XR CHEST PORTABLE 1 VIEW Result Date: 02/16/2024 Small bilateral pleural effusions. Slight interval increase in patchy airspace opacities at both lung bases and in the suprahilar right lung. [id number] Medications: Scheduled: acetaminophen, 1,000 mg, Q6H aspirin chewable, 81 mg, DAILY budesonide-formoterol HFA, 2 Puff, Q12H cefTRIAXone, 2,000 mg, Q24H doxycycline, 100 mg, Q12H heparin, 5,000 Units, Q8H ipratropium-albuteroL, 3 mL, QID lidocaine 5 %, 1 Patch, DAILY metoprolol SUCCinate, 25 mg, DAILY polyethylene glycol 3350, 17 g, DAILY predniSONE, 30 mg, DAILY Continuous: PRN: dextrose 50 %, 25 mL, PRN glucagon, 1 mg, PRN HYDROmorphone, 2 mg, Q4H PRN lidocaine, 2 mg, PRN lidocaine, 2 mg, PRN magnesium sulfate, 2 g, PRN potassium chloride in water, 20 mEq, PRN senna, 2 Tablet, BID PRN Or sennosides, 10 mL, BID PRN ASSESSMENT Noe Sue is a 83 y.o. male with a PMHx significant for COPD with chronic hypoxic respiratory failure (3-5L home oxygen), atrial fibrillation (unclear if on anticoagulation), GERD, and hypertension, who was transferred from [facility] to [facility] and then [facility] for preoperative optimization for surgicalmanagement of a right femoral neck fracture. Hospital course at [facility] complicated by acute on chronic hypoxic hypercapenic respiratory failure 2/2 COPD exacerbation vs. community acquired pneumonia. Found to have pulmonary HTN and severe RV dilation with evidence of volume overload, s/p IV diuresis. Started on HFNC at [facility] and then [facility] for monitoring prior to going to the OR yesterday 02/16 with orthopedic surgery. Underwent successful R hip cemented hemiarthroplasty. Weaned to nasal cannula and remains hemodynamicallystable. PLAN Pulm #Acute on chronic hypoxic hypercapnic respiratory failure (baseline home O2 3-5L NC) #Bilateral Pleural effusions Multifactorial - Pulmonary edema, COPD, possible infection/aspiration with bilateral infiltrates inlung bases. Pleural effusions and edema noted on lung bases on CT abdomen. Arrived on HFNC. -Wean supplemental O2 as tolerated -Maintain SpO2 88-92% -Replace OUTREACH TEAM MEMBER Anoro Ellipta with Symbicort -Prednisone 40mg daily, decrease to 30mg daily (02/14-02/18) -Duoneb q6h -Ceftriaxone + doxycycline (02/14 - 02/18) -CTA PE 02/15: No evidence of PE, patchy opacity in peripheral RML, lingula, posterior segment or RUL -Bilateral pleural effusions, atherosclerosis of thoracic aorta and coronary artery/aortic valve ID Possible COPDe vs community acquired pneumonia Was started on CAP coverage at [facility]. Legionella, strep pneumo and MRSA negative. Procal 3 at OSH --> 1. -Sputum cx if able -Ceftriaxone + doxycycline (02/14 - 02/18) CV Severe pulmonary HTN with RV failure Possibly group III due 2/2 lung disease. Does not look overtly hypervolemic on exam but vascular congestion presenton CXR. Pro BNP 7520. PASP 75 +RAP on TTE 02/15. -Strict I/Os -S/p lasix 160 mg and 5 mg metolazone 02/16/24 at [facility] prior to transfer - No additional diuresis 02/16 or 02/17 CV risk assessment Surgery is urgent with hip surgery classified as intermediate risk - Orta RCRI: 2-3 points depending on whether you define Tn elevation as a type II [place] or myocardial injury (additional points for heart failure, Cr >2 mg/dL). My opinion is that this is simply myocardial injury in the context of RV strain and heart failure but this is impossible to prove. - Overall this indicates elevated risk (/[place]/arrest of ~10-15% within a month of surgery) - Currently appears to be reasonably optimized: -AF rate controlled with amiodarone -S/p diuresis, appears reasonably euvolemic on exam 02/16 -Current oxygen prescription is not substantially higher than his baseline requirements - Failure to operate would carry huge risks in terms of morbidity, deconditioning, PE, pneumonia, etc. -Overall risks are very high regardless the course of action, surgery today despite high risk as itwill give him the best functional outcome #Afib with RVR Will have pharmacy to confirm h/o anticoagulation since he will need a procedure in the coming days. Patient denies he is taking eliquis, but report from [facility] said his last dose of eliquis was 02/13.S/p dilt drip at [facility]. -Telemetry monitoring -Trend lytes and replete (Mag >2) -Rate control goal < 110 -OUTREACH TEAM MEMBER ASA 81mg daily -Discontinue amiodarone gtt -Resume OUTREACH TEAM MEMBER metop succinate 25mg daily #Myocardial injury in the context of RV strain Suspect 2/2 demand ischemia, trop trending down. -Telemetry monitoring #HTN -Resume OUTREACH TEAM MEMBER metoprolol succinate 25mg daily -Hold OUTREACH TEAM MEMBER amlodipine 10mg daily GI #GERD -OUTREACH TEAM MEMBER pantoprazole Hemeonc #Leukocytosis, improving Likely iso possible CAP vs COPDe. -Trend CBC - Abx as above #Acute mild macrocytic anemia #Acute mild thrombocytopenia -Trend CBC Renal CHRISTIANO Mild hyperkalemia Mild hyponatremia Cr trending down with diuresis. -Daily CMP -Strict I/Os -Goal net neg 1L Endo HbA1c 6.1%. Glucoses stable. Neuro Pain -Scheduled tylenol 1g q6h -Hydromorphone 2mg PO q4h PRN -Lidocaine patch daily MSK Fall Right femoral neck fracture s/p R hip cemented hemiarthroplasty 02/16 CK mildly elevated at 272. -Ortho following -Weight bearing -WBAT RLE, AAT with posterior hip precautions:Posterior hip precautions (do not flex hip beyond 90 degrees, do not internally rotate or adduct beyond midline) -Scheduled tylenol -Hydromorphone 2mg PO PRN -PT ordered today LINES: - PIVs: PIV x 3 - Urinary catheter: Yes, remove today CHECKLIST: Consults: Orthopedic surgery, PT Diet: DIET REGULAR VTE Prophylaxis: Heparin SC GI Prophylaxis: OUTREACH TEAM MEMBER PPI Code status: Limitation of Treatment DNR Do not intubate (DNI) Disposition/discharge planning: Plan to transfer to the floor later this afternoon Pete Miller DO PGY-2 Internal Medicine 02/18/2024 10:02 Cosigned by Ritesh Cardenas MD at 02/18/2024 13:37 EST Associated attestation - Ritesh Cardenas MD - 02/18/2024 1337 EST Attestation: I performed or was present during the marsh or critical portions of the visit and participated in the management of the patient on 02/18/2024. I agree with the findings and plan of care documented in the resident's/fellow's note. Ritesh Cardenas MD 02/18/2024 13:37 * Ashley Lake RT - 02/18/2024 0022 EST Respiratory Progress Note Indications for Respiratory therapy: COPD Data Vitals: Heart Rate: 71 BPM, Resp: 15, SpO2: 95 % FIO2/O2 Device: O2 Flow Rate (L/min): 6 l/min, , O2 Device: (S) Nasal cannula, RT Orders: QID Duo BID Symbicort HFNC/ Q4 eval Action/Events Respiratory events; Placed weaned from high flow to 4L NC and is tolerating it well. Wears 3-5L at baseline. Response/Results Weaning and Toleration of treatments; 0000: weaned to 6L nasal cannula. Will monitor closely 0330: patient had prolonged desaturation to 85%. No interventions done and he came up to 99% after approx 20 mins. RT BEKAH 02/18/24 * Russell Rodriguez MD - 02/17/2024 1624 EST Orthopedic brief postoperative check Patient seen resting comfortably in bed on high flow nasal cannula in the medical ICU. He reports his pain is very well-controlled. Denies fevers, chills, nausea, vomiting. Family present at bedside and updated. Right lower extremity: Dressing in place, clean, dry, and intact Reported sensation intact to light touch in all peripheral nerve distributions: SP/DP/S/S/T 5/5 EHL/TA/GSC Toes warm and well-perfused Patient recovering appropriately, no changes to plan as described in brief operative note. Recommend mobilization with PT as able Russell Rodriguez [facility]opa[facility] PGY-2 #[id number] * Ritesh Cardenas MD - 02/17/2024 1230 EST MEDICAL INTENSIVE CARE UNIT (MICU) PROGRESS NOTE Admit Date: 02/16/2024 15:41 Hospital Day: LOS: 1 day Date of Service: 02/17/24 Reason for Admission to the MICU: 83 y.o. male who presented with a chief complaint of fall, and was admitted with a principal diagnosis of R femoral neck fracture Significant 24-hour events: - NAEO SUBJECTIVE Notes some ongoing dyspnea, but remarks on some mild improvement from yesterday. Denies fever/chills or significant cough/sputum production. Does note on some ongoing pain related to his leg fracture. Denies any new subjective medical complaints this AM, is eager to go to the OR. OBJECTIVE Vitals: Temp: [37.2 ??C (98.9 ??F)-37.4 ??C (99.4 ??F)] , Heart Rate: [82 BPM-125 BPM] , Pulse: --, Resp: [15-30] , BP: (110-131)/(52-70) , SpO2: [83 %-97 %] , O2 Flow Rate (L/min): (S) 4 l/min Numeric Pain Level (Scale 1-10): 8 Weight: Weight : 52 kg (114 lb 11.2 oz) Body mass index is 16.93 kg/m??. Physical Exam: General: Alert, frail, cooperative, no distress, appropriately responding to questions. HEENT: NC/AT, dry mucous membranes, no conjunctival injection or scleral icterus. Lungs: Increased work of breathing, diffuse faint coarse breath sounds bilaterally. Heart: Irregularly irregular, normal S1 and S2. Abdomen: Soft, nondistended, no tenderness to palpation, bowel sounds auscultated in all four quadrants. Extremities: R hip ecchymosis present anteriorly at ASIS. No LE edema b/l, pedal pulses 2+ b/l. Neurologic: A&O x3, normal speech, cranial nerves grossly intact b/l, gait was not assessed. Labs: CBC: Recent Labs 02/15/24 1519 02/16/24 0536 02/16/24 1700 02/17/24 0558 WBC 21.84* 19.87* 19.76* 16.70* RBC 4.54 4.14* 3.85* 3.66* HGB 14.5 13.4* 12.5* 11.7* HCT 44.8 40.3 37.3* 33.7* MCV 99* 97* 97* 92 MCH 31.9 32.4 32.5 32.0 MCHC 32.4* 33.3 33.5 34.7 PLT 151 140* 130* 128* NEUTROABS 19.49* -- -- -- BMP: Recent Labs 02/15/24 1519 02/16/24 0537 02/16/24 17002/17/24 0558 NA 136 134* 140 134* K 5.3* 5.3* 5.2* 4.4 CL 102 99 97 100 CO2 22 29 36* 30 BUN 65* 70* 70* 69* CREATININE 2.50* 2.30* 2.54* 2.08* CALCIUM 8.1* 7.8* 9.1 8.7 MG -- -- -- 2.1 LABALBU 3.1* -- 3.0* 2.8* LFT: Recent Labs 02/15/24 1519 02/16/24 17002/17/24 0558 TBIL 0.7 0.6 0.5 ALKPHOS 109 104 83 AST 49* 32 36 ALT 68* 50* 49 Coagulation: Recent Labs 02/16/24 17002/17/24 1141 PROTIME 11.3 11.2 INR 1.0 1.0 PTT 20* -- Cardiac Markers: Recent Labs 02/15/24 1519 02/15/24 1751 02/16/24 0135 02/16/24 0537 02/16/24 0934 CK 272* -- -- 114 -- TROPONINI -- 0.403* 0.323* -- 0.244* Hemoglobin A1c: Recent Labs 11/08/24 1700 HGBA1C 6.1* Imaging: CT ANGIO CHEST PE PROTOCOL Result Date: 02/17/2024 1. No evidence of pulmonary embolism. 2. Patchy opacity in the periphery of the right middle lobe, lingula and posterior segment of the right upper lobe, favored to reflect atelectasis, although superimposed infection is not excluded. 3. Large mucous plugs in the trachea and occluding several segmental bronchi to the lower lobes bilaterally. 4. 1.1 [...] artery and aortic valve calcification. 8. I havepersonally reviewed the images and the above interpretation and agree with the findings. [id number] XR HIP RIGHT 1 VIEW Result Date: 02/16/2024 Findings/impression: Redemonstrated right femoral neck fracture, not significantly changed. No left-sided hip fracture or dislocation. Mild degenerative changes of the left hip. The soft tissues are unremarkable. [id number] XR HIP LEFT 2-3 VIEWS OPTIONAL PELVIS Result Date: 02/16/2024 Findings/impression: Redemonstrated right femoral neck fracture, not significantly changed. No left-sided hip fracture or dislocation. Mild degenerative changes of the left hip. The soft tissues are unremarkable. [id number] XR CHEST PORTABLE 1 VIEW Result Date: 02/16/2024 Small bilateral pleural effusions. Slight interval increase in patchy airspace opacities at both lung bases and in the suprahilar right lung. [id number] Medications: Scheduled: [Transfer Hold] acetaminophen, 1,000 mg, Q6H [Transfer Hold] aspirin chewable, 81 mg, DAILY [Transfer Hold] budesonide-formoterol HFA, 2 Puff, Q12H [Transfer Hold] cefTRIAXone, 2,000 mg, Q24H [Transfer Hold] doxycycline, 100 mg, Q12H [Transfer Hold] insulin regular, , Q6H [Transfer Hold] ipratropium-albuteroL, 3 mL, QID ipratropium-albuteroL, , [Transfer Hold] lidocaine 5 %, 1 Patch, DAILY [Transfer Hold] pantoprazole, 40 mg, DAILY [Transfer Hold] polyethylene glycol 3350, 17 g, DAILY [Transfer Hold] predniSONE, 40 mg, DAILY Continuous: amiodarone in dextrose, Last Rate: 0.5 mg/min (02/17/24 1157) PRN: [Transfer Hold] dextrose 50 %, 25 mL, PRN [Transfer Hold] glucagon, 1 mg, PRN [Transfer Hold] HYDROmorphone, 2 mg, Q4H PRN ipratropium-albuteroL, , [Transfer Hold] lidocaine, 2 mg, PRN [Transfer Hold] magnesium sulfate, 2 g, PRN [Transfer Hold] potassium chloride in water, 20 mEq, PRN [Transfer Hold] senna, 2 Tablet, BID PRN Or [Transfer Hold] sennosides, 10 mL, BID PRN ASSESSMENT Noe Sue is a 83 y.o. male with a PMHx significant for COPD with chronic hypoxic respiratory failure (3-5L home oxygen), atrial fibrillation (unclear if on anticoagulation), GERD, and hypertension, who was transferred from [facility] to [facility] and then [facility] for preoperative optimization for surgicalmanagement of a right femoral neck fracture. Hospital course at [facility] complicated by acute on chronic hypoxic hypercapenic respiratory failure 2/2 COPD exacerbation vs. community acquired pneumonia. Found to have pulmonary HTN and severe RV dilation with evidence of volume overload and diuresed. Started on HFNC at [facility] and then transferred to [facility] MICU for monitoring overnight prior to going to the OR today 02/16 with orthopedic surgery. Back near to home baseline O2 and optimized for intermediate-high risk yet urgent surgical procedure. PLAN Pulm #Acute on chronic hypoxic hypercapnic respiratory failure (baseline home O2 3-5L NC) #Bilateral Pleural effusions Multifactorial - Pulmonary edema, COPD, possible infection/aspiration with bilateral infiltrates inlung bases. Pleural effusions and edema noted on lung bases on CT abdomen. Arrived on HFNC. -Wean supplemental O2 as tolerated -Maintain SpO2 88-92% -Replace OUTREACH TEAM MEMBER Anoro Ellipta with Symbicort -Prednisone 40mg daily x5 days (02/14-02/18) -S/p lasix 160 mg and 5 mg metolazone at [facility] prior to transfer -Duoneb q6h -Ceftriaxone + doxycycline (02/14 - ) -CTA PE 02/15: No evidence of PE, patchy opacity in peripheral RML, lingula, posterior segment or RUL -Bilateral pleural effusions, atherosclerosis of thoracic aorta and coronary artery/aortic valve ID Possible COPDe vs community acquired pneumonia Was started on CAP coverage at [facility]. Legionella, strep pneumo and MRSA negative. Procal 3 at OSH. -Sputum cx if able -Procal elevated at 1 -Continue on Ceftriaxone + doxycycline (02/14 - ) CV Severe pulmonary HTN with RV failure Possibly group III due 2/2 lung disease. Does not look overtly hypervolemic on exam but vascular congestion presenton CXR. Pro BNP 7520. PASP 75 +RAP on TTE 02/15. -S/p lasix 160 mg and 5 mg metolazone 02/16/24 at [facility] prior to transfer - Will hold off on additional diuresis 02/16 given current NPO status, appear euovolemic on exam -Will re-assess volume status after OR procedure 02/16 to guide diuresis -If he decompensates, could consider inhaled epoprostenol to reduce elevated RV afterload and prevent acute decompensated right ventricular failure #CV risk assessment Surgery is urgent with hip surgery classified as intermediate risk - Orta RCRI: 2-3 points depending on whether you define Tn elevation as a type II [place] or myocardial injury (additional points for heart failure, Cr >2 mg/dL). My opinion is that this is simply myocardial injury in the context of RV strain and heart failure but this is impossible to prove. - Overall this indicates elevated risk (/[place]/arrest of ~10-15% within a month of surgery) - Currently appears to be reasonably optimized: -AF rate controlled with amiodarone -S/p diuresis, appears reasonably euvolemic on exam 02/16 -Current oxygen prescription is not substantially higher than his baseline requirements - Failure to operate would carry huge risks in terms of morbidity, deconditioning, PE, pneumonia, etc. -Overall risks are very high regardless the course of action, surgery today despite high risk as itwill give him the best functional outcome -Strict I/Os #Afib with RVR Will have pharmacy to confirm h/o anticoagulation since he will need a procedure in the coming days. Patient denies he is taking eliquis, but report from [facility] said his last dose of eliquis was 11/6.S/p dilt drip at [facility]. -Telemetry monitoring -Trend lytes and replete (Mag >2) -Rate control goal < 110 -OUTREACH TEAM MEMBER ASA 81mg daily -Amiodarone gtt continue at 0.5 -UFH level and coags - Will discuss with ortho after OR regarding DVT ppx vs full dose AC #Myocardial injury in the context of RV strain Suspect 2/2 demand ischemia, trop trending down. -Telemetry monitoring #HTN -Hold OUTREACH TEAM MEMBER metoprolol succinate 25mg daily -Hold OUTREACH TEAM MEMBER amlodipine 10mg daily GI #GERD -OUTREACH TEAM MEMBER pantoprazole Hemeonc #Leukocytosis, improving Likely iso possible CAP vs COPDe. -Trend CBC - Abx as above #Acute mild macrocytic anemia #Acute mild thrombocytopenia -Trend CBC -Coags Renal CHRISTIANO Mild hyperkalemia Mild hyponatremia Cr trending down with diuresis. -Daily CMP -Strict I/Os -Goal net neg 1L Endo -FU HbA1c -POC glucose checks q6h -ISS Neuro Pain -Scheduled tylenol 1g q6h -Hydromorphone 2mg PO q4h PRN MSK Fall Right femoral neck fracture CK mildly elevated at 272. -Ortho involved - plan for medical optimization prior to going to the OR -Scheduled tylenol -Hydromorphone 2mg PO PRN -NPO MN -PT after procedure LINES: - PIVs: PIV x 3 - ETT: No - CVC: None - A-line: None - Urinary catheter: Yes CHECKLIST: Consults: Orthopedic surgery Diet: DIET NPO AFTER MIDNIGHT Strict (No Exceptions) VTE Prophylaxis: Will start after OR today GI Prophylaxis: OUTREACH TEAM MEMBER PPI Code status: Limitation of Treatment DNR Do not intubate (DNI) Disposition/discharge planning: Pending operative/clinical course Admission status Inpatient admission due to anticipated duration of hospitalization is two midnights or greater due to Acute hypoxic respiratory failure. Hema Cazares MD Internal Medicine, PGY-2 Epic Chat (prefer) Pgr#[phone] Attending attestation statement: I saw and examined the patient with the resident/medical student and agree with the findings and plans as documented, and as amended in blue. Clinical Condition: Noe Sue is a critically ill 83 y.o. male. Over the past 24 hours, there has been a high probability of sudden, clinically significant or life threatening deterioration in the patient???s condition, which include the following diagnoses which I have managed: 1. Closed right hip fracture, initial encounter ([facility]) Critical Care time was provided in the form of interventions to treat and prevent further life threatening deterioration of the patient???s condition including: management of non-invasive ventilation, and high complexity decision making regarding need for additional imaging studies and / or interventional radiology interventions My bedside involvement was required to monitor and direct the critical care that has been provided.Exclusive of procedures, my critical care time is 40 minutes. Ritesh Cardenas MD Pulmonary & Critical Care Medicine 02/17/2024 * Ale Bruce - 02/17/2024 1137 EST [facility] Spiritual Care Note Re: Noe Sue : 1940, AGE: 83 y.o. ROOM: [place] [id number] BACKGROUND Referral visit. Patient appeared having hard time to hear. Patient said he was okay and no need to talk a receiver bulk system or a post doctoral researcher at that time. Patient had a visitor, his granddaughter. INTERVENTIONS Presence Introducing spiritual care CARE PLAN Continued receiver bulk system visit if needed RECOMMENDATIONS: None Matheus Napier, [facility] Superintendent Storage Area [phone] Thank you for the opportunity to provide for this patient's/family's spiritual needs. * Farnaz Moreno RT - 02/17/2024 0936 EST Respiratory Progress Note Indications for Respiratory therapy: COPD Data Vitals: Heart Rate: 83 BPM, Resp: 26, SpO2: 95 % FIO2/O2 Device: O2 Flow Rate (L/min): 40 l/min, , O2 Device: High flow nasal cannula, RT Orders: QID Duo BID Symbicort HFNC/ Q4 eval Action/Events Respiratory events; Placed weaned from high flow to 4L NC and is tolerating it well. Wears 3-5L at baseline. Response/Results Weaning and Toleration of treatments; 15:30- Patient returned from the OR, briefly required NRB. Weaned to previous high flow settings of40L,40% FIO2 and tolerating it well at this time. RT JAY 02/17/24 * Daniel Varghese MD - 02/17/2024 0545 EST Orthopaedic Progress Note Pt Name: Noe Sue Service: Ortho Weekend Problem: Right femoral neck fracture S- Sleeping comfortably. Talked with family member at bedside. The right hip has been painful. Recently got to sleep. Answered questions about surgery. O: Blood pressure 110/57, temperature 37.2 ??C (98.9 ??F), temperature source Axillary, resp. rate 16,height 175.3 cm (69.02), weight 52 kg (114 lb 11.2 oz), SpO2 94%. Gen: NAD Pulm: Non-labored breathing Focused MSK: RLE: No gross abnormalities Motor: 5/5 TA/GS/FHL/EHL DP +2, toes warm/well-perfused Labs: WBC/Hgb/Hct/Plts: 19.76/12.5/37.3/130 (02/15 1700) Na/K/Cl/CO2: 140/5.2/97/36 (02/15 1700) BUN/Cr/glu/ALT/AST/amyl/lip: 70/2.54/179/50/32/--/-- (02/15 1700) PT/INR/PTT: 11.3/1.0/20 (02/15 1700) A: Noe Sue is a 83 y.o. male with past medical history significant for COPD with chronic hypoxic respiratory failure (3-5L O2 at baseline), Atrial fibrillation on aspirin, who presents to transfer initially from [facility] after a fall and whom orthopedics was consulted for a right femoral neck fracture. Plan for operative management today. P: OR today for open treatment of right hip fracture WB -bedrest Lewis Abx - 2g Ancef web communications specialist to the OR DVT prophylaxis -asked to hold in setting of OR, SCDs Diet - NPO PT/OT - routine post-op Dispo - pending DANIEL VARGHESE MD 02/17/24 5:45 Cosigned by Augustine Ceja MD at 02/17/2024 11:03 EST * Honey Spring RN - 02/16/2024 1842 EST FOUR EYES SKIN ASSESSMENT Four Eyes skin assessment was performed on admission to the unit by Honey Spring RN and June Flores RN. Patient has the following devices at the time of this assessment: BP cuff, Peripheral IV, O2 sat probe, and Lewis. Device related pressure injury present? No Areas of concern: Fill in detail for areas of concern [] Occiput [] Nose [] Ear [] Lip [] Scapula [] Spinous process [] Shoulder [] Elbow [] Iliac crest [x] Sacrum/coccyx [] Ischial tuberosity [] Trochanter [] Knee [] Malleolus [x] Heels bilateral [] Toe [] Other: Last Hernando Score: 13 Instructions: Add LDA for any identified wounds Add Foster image for any suspected PI or non surgical wounds Order wound consult if suspected PI identified If Hernando is < or = to 16, initiate Pressure Injury Prevention Bundle ([id number]). 02/16/2024 18:43 * Morenita Yee RT - 02/16/2024 1623 EST Respiratory Consult/Progress Note Indications for Respiratory therapy: ICU/HFNC Data Vitals: Heart Rate: 101 BPM, Resp: 26, SpO2: (!) 83 % FIO2/O2 Device: O2 Flow Rate (L/min): 40 l/min, , O2 Device: (S) High flow nasal cannula, FIO2 %: 40 % RT Orders: QID Duoneb; BID Symbicort, and HFNC Protocol Scoring: Bronchodilator/Inhalation Therapy Frequency Bronchodilator - Clinical Indications: History of COPD Breath Sounds: Any abnormal BS decreased Response: Mild response, increase subjective per CON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 Pulse: >100 Resp Rate: 18-25 SOB: At rest Total Score: 6 Comment:: QID Frequency Based On Total Score: 0-4 = PRN 5-7 = QID 8-10 = Q4H 11-12 = Q2H Airway Clearance Therapy Frequency Airway Clearance - Clinical Indications: Infiltrate on CXR Breath Sounds: Clear / diminished Sputum: Small (tsp) / None Consistency: Thin Cough Effort: Weak/ productive Color: None Total Score: 2 Comment: prn Frequency Based On Total Score: 0-3 = PRN 4-6 = QID and PRN 7-9 = Q4H and PRN 10-11 = Q2H and PRN Hyperinflation Therapy Frequency Hyperinflation - Clinical Indications: Prevent atelectasis Breath Sounds: Other Surgery: No X-Ray / Atelectasis: No O2 Requirements: > 4 L above baseline Mobility Status: In bed Total: 7 Comment: Pt on HFNC Frequency Based On Total Score: 0-3 = PRN 4-6 = QID and PRN 7-9 = Q4H and PRN 10-12 = Q2H and PRN Action/Events Respiratory events; Assumed care of patient from [place]. Pt on HFNC 40L and 40%. Prior documentation states patient wears 3-5L O2 at home. Pt stated to me 2.5L. Pt Has Clear; diminished BBS. Slight crackle. Pt reports COPD hx. No MELITA. Pt states takes Albuterol inhaler at home as needed; Do not see on OUTREACH TEAM MEMBER meds. Duoneb given per order. RT RANDI 02/16/24 documented in this encounter H&P Notes * Ritesh Cardenas MD - 02/16/2024 6377 EST MICU Admission History & Physical Service Date: 02/16/2024 Admit Date: 02/16/2024 15:41 Primary Care Provider: SUZIE VILLAGOMEZ Chief Complaint: Fall HPI Noe Sue is a 83 y.o. male with a PMHx of HTN, GERD, COPD (on 3-5 L NC baseline) and atrial fibrillation (unclear if on AC), who presented to [facility] s/p fall andwas found to have R femoral neck fracture. On the night between 02/12-02/13, he lost his balance while getting up to go to the bathroom and fell onto his right hip. Denied head strike or LOC. He said he felt dizzy/lightheaded before falling, and was on the ground for 2-3 hours. He denied any recent fever, chills, chest pain, shortness of breath, or cough. [facility] ED labs notable for WBC 22, procal 3, creatinine 3 (baseline ~1), and potassium 6. He was subsequently transferred to [facility] 02/14 for surgical management. On arrival, temp [...] -->0.244. He was confirmed DNR/DNI. Transferred from [facility] to [facility] MICU for preoperative optimization. On arrival to [facility], Noe says that he feels exhausted. Denies any headache, chills, chest pain, abdominal pain, nausea, vomiting or diarrhea. He says that he does not take eliquis at home and has been taking ASA 81mg daily for many years. He wears 3-5L home O2 and is dyspneic when walking around at home. Lives with a lady. Ambulates with walker. Granddaughter lives nearby and would like her to receive medical updates. Review of Systems A complete 10 point ROS was performed and pertinent positive and negative findings listed in HPI, otherwise negative. No past medical history on file. No past surgical history on file. Social History Tobacco Use Smoking status: Former Current packs/day: 0.00 Types: Cigarettes Smokeless tobacco: Not on file Substance Use Topics Alcohol use: Never No family history on file. No current outpatient medications on file. No Known Allergies Objective Vitals Temp: [36.6 ??C (97.8 ??F)-37.1 ??C (98.8 ??F)] , Heart Rate: [85 BPM-168 BPM] , Pulse: [107-116] ,Resp: [15-39] , BP: (103-133)/(55-67) , SpO2: [78 %-100 %] , O2 Flow Rate (L/min): 40 l/min Numeric Pain Level (Scale 1-10): 0 Weight: Weight : 52 kg (114 lb 11.2 oz) Body mass index is 16.93 kg/m??. Physical Exam General: Alert, frail, cooperative, no distress, appropriately responding to questions. HEENT: NC/AT, dry mucous membranes, no conjunctival injection or scleral icterus. Lungs: Increased work of breathing, diffuse faint coarse breath sounds bilaterally. Heart: Irregularly irregular, normal S1 and S2. Abdomen: Soft, nondistended, no tenderness to palpation, bowel sounds auscultated in all four quadrants. Extremities: R hip ecchymosis present anteriorly at ASIS. No LE edema b/l, pedal pulses 2+ b/l. Neurologic: A&O x3, normal speech, cranial nerves grossly intact b/l, gait was not assessed. Labs I have personally reviewed Recent Labs 02/15/24 1519 02/16/24 0536 02/16/24 1700 WBC 21.84* < > 19.76* RBC 4.54 < > 3.85* HGB 14.5 < > 12.5* HCT 44.8 < > 37.3* MCV 99* < > 97* MCH 31.9 < > 32.5 MCHC 32.4* < > 33.5 PLT 151 < > 130* NEUTROABS 19.49* -- -- < > = values in this interval not displayed. Recent Labs 02/16/24 1700 NA 140 K 5.2* CL 97 CO2 36* BUN 70* CREATININE 2.54* CALCIUM 9.1 LABALBU 3.0* Recent Labs 02/16/24 0934 TROPONINI 0.244* Recent Labs 02/16/24 1700 TBIL 0.6 ALKPHOS 104 AST 32 ALT 50* Imaging XR CHEST PORTABLE 1 VIEW Result Date: 02/16/2024 Small bilateral pleural effusions. Slight interval increase in patchy airspace opacities at both lung bases and in the suprahilar right lung. [id number] TTE 02/16/24: Left Ventricle: Left ventricular systolic function was hyperdynamic with an ejection fraction =>65%. Left ventricular wall motion was normal; there were no regional wall motion abnormalities. Right Ventricle: The right ventricular cavity was severely dilated in size. Right ventricular systolic function was moderately reduced. Pulmonic Artery: Pulmonary systolic pressure was severely increased, estimated to be 75 mmHg + right atrial pressure. Assessment Noe Sue is a 83 y.o. male with a PMHx significant for COPD with chronic hypoxic respiratory failure (3-5L home oxygen), atrial fibrillation (unclear if on anticoagulation), GERD, and hypertension, who was transferred from [facility] to [facility] and then [facility] for preoperative optimization for surgicalmanagement of a right femoral neck fracture. Hospital course at [facility] complicated by acute on chronic hypoxic hypercapenic respiratory failure 2/2 COPD exacerbation vs. community acquired pneumonia. Found to have pulmonary HTN and severe RV dilation with evidence of volume overload and diuresed. Started on HFNC at [facility] and then transferred to [facility] MICU for monitoring overnight prior to going to the OR tomorrow with ortho to surgically address her R hip fracture. Plan Pulm Acute on chronic hypoxic hypercapnic respiratory failure (baseline home O2 3-5L NC) Multifactorial - Pulmonary edema, COPD, possible infection/aspiration with bilateral infiltrates inlung bases. Pleural effusions and edema noted on lung bases on CT abdomen. Arrived on HFNC. -Wean supplemental O2 as tolerated -Maintain SpO2 88-92% -Replace OUTREACH TEAM MEMBER Anoro Ellipta with Symbicort -Prednisone 40mg daily x5 days (02/14-02/18) -S/p lasix 160 mg and 5 mg metolazone early today at [facility] prior to transfer -Duoneb q6h -Ceftriaxone + doxycycline (02/14 - ) -CTA PE Effusions are small and risk>benefit for thoracentesis at this point in time Wean O2 as able ID Possible COPDe vs community acquired pneumonia Was [facility] CAP [facility] [facility] [place] Legionella, strep pneumo and MRSA negative. Procal 3 at OSH. -Sputum cx if able -Repeat procal on arrival -Ceftriaxone + doxycycline (02/14 - ) Procal is 1, continue abx although low index of suspicion for pneumonia. CV Severe pulmonary HTN with RV failure Possibly group III due 2/2 lung disease. Does not look overtly hypervolemic on exam but vascular congestion presenton CXR. Pro BNP 7520. PASP 75 +RAP on TTE 02/15. -S/p lasix 160 mg and 5 mg metolazone early today at [facility] prior to transfer -Strict I/Os -Goal net neg 1L to even (on exam he appears euvolemic and there is no contrast reflux into the IVC, so he might even be a little on the dry side within the context of his degree of RV dysfunction. -If he decompensates, could consider inhaled epoprostenol to reduce elevated RV afterload and prevent acute decompensated right ventricular failure Cardiovascular risk assessment: Surgery is urgent Hip surgery is classified as intermediate-risk (cardiac risk 1-5%) Orta RCRI: 2-3 points depending on whether you define Tn elevation as a type II [place] or myocardialinjury (additional points for heart failure, Cr >2 mg/dL). My opinion is that this is simply myocardial injury in the context of RV strain and heart failure but this is impossible to prove. Overall this indicates elevated risk (/[place]/arrest of ~10-15% within a month of surgery) Currently appears to be reasonably optimized: AF rate controlled with amiodarone S/p diuresis, appears reasonably euvolemic on exam Current oxygen prescription is not substantially higher than his baseline requirements Failure to operate would carry huge risks in terms of morbidity, deconditioning, PE, pneumonia, etc. Overall risks are very high regardless the course of action. I think proceeding with surgery tomorrow probably gives him the greatest likelihood of a good functional outcome. Afib with RVR Will have pharmacy to confirm h/o anticoagulation since he will need a procedure in the coming days. Patient denies he is taking eliquis, but report from [facility] said his last dose of eliquis was 02/13.S/p dilt drip at [facility]. -Telemetry monitoring -Trend lytes and replete (Mag >2) -Rate control goal < 110 -OUTREACH TEAM MEMBER ASA 81mg daily -Amiodarone gtt -UFH level and coags Myocardial injury in the context of RV strain Suspect 2/2 demand ischemia, trop trending down. -Telemetry monitoring HTN -Hold OUTREACH TEAM MEMBER metoprolol succinate 25mg daily -Hold OUTREACH TEAM MEMBER amlodipine 10mg daily GI GERD -OUTREACH TEAM MEMBER pantoprazole Hemeonc Leukocytosis, improving Likely iso possible CAP vs COPDe. -Trend CBC Acute mild macrocytic anemia Acute mild thrombocytopenia -Trend CBC -Coags Renal CHRISTIANO Mild hyperkalemia Mild hyponatremia Cr trending down with diuresis. -Daily CMP -Strict I/Os -Goal net neg 1L Endo -FU HbA1c -POC glucose checks q6h -ISS Neuro Pain -Scheduled tylenol 1g q6h -Hydromorphone 2mg PO q4h PRN MSK Fall Right femoral neck fracture CK mildly elevated at 272. -Ortho involved - plan for medical optimization prior to going to the OR -Scheduled tylenol -Hydromorphone 2mg PO PRN -NPO MN -PT after procedure VTE Prophylaxis Hold pending upcoming ortho procedure Code: DNR/DNI PETE DO JESUS 02/16/2024 18:09 Attending attestation statement: I saw and examined the patient with the resident/medical student and agree with the findings and plans as documented, and as amended in blue. Clinical Condition: Noe Sue is a critically ill 83 y.o. male. Over the past 24 hours, there has been a high probability of sudden, clinically significant or life threatening deterioration in the patient???s condition, which include the following diagnoses which I have managed: 1. Closed right hip fracture, initial encounter ([facility] Critical Care time was provided in the form of interventions to treat and prevent further life threatening deterioration of the patient???s condition including: management of non-invasive ventilation, and high complexity decision making regarding need for additional imaging studies and / or interventional radiology interventions. My bedside involvement was required to monitor and direct the critical care that has been provided.Exclusive of procedures, my critical care time is 48 minutes. Ritesh Cardenas MD Pulmonary & Critical Care Medicine 02/16/2024 documented in this encounter Consult Notes * Juan Jose Barajas DO - 02/27/2024 1051 EST Pulmonary & Critical Care Medicine Pulmonary Consult Note Admission Date: 02/16/2024. Date of Service: 02/27/2024. Requesting Provider: Pushpa Welch MD. Reason for Pulmonary Consult: Oxymizer use. HPI: Noe Sue is a 83 y.o. with a past medical history of COPD on 3 to 5 L at home, GERD, hypertension who originally presented to [facility] for hip fracture. Pulmonary Medicine is now being consulted foruse of Oxymizer rehab. In regards to the patient's COPD history, he does report he used to use an oral Ellipta but is causing him problems. He did have difficulty expressing exactly what problems occurred, however it seemsto be due to the dry powder formulation of the inhaler. Unfortunately, he is not placed on something else and has only been taking his albuterol since then. He has recovered well from his hip fracture and would like to go to rehab. While resting in bed, he is on his home 5 L of oxygen however with movement he does require the Oxymizer. His original TTE did show elevated PA pressures, however he has since been diuresed. He does not have a near eastern archaeology lecturer at this time, although he lives in the [facility] and is interested in establishing care with a near eastern archaeology lecturer there. He is a former smoker, having quit about 15 years ago. Review of systems: Pertinent Positives: See above. A 12-point review of systems was obtained and otherwise negative unless noted in HPI. PMH PSH No past medical history on file. Past Surgical History: Procedure Laterality Date HIP FRACTURE SURGERY Right 02/17/2024 hemiarthroplasty w/ Dr. Ceja Social History Family history Social History Socioeconomic History Marital status: Spouse name: Not on file Number of children: Not on file Years of education: Not on file Highest education level: Not on file Occupational History Not on file Tobacco Use Smoking status: Former Current packs/day: 0.00 Types: Cigarettes Smokeless tobacco: Not on file Vaping Use Vaping status: Never Used Substance and Sexual Activity Alcohol use: Never Drug use: Never Sexual activity: Not on file Other Topics Concern Not on file Social History Narrative Not on file Health Related Social Needs Financial Strain: Not on file Food Insecurity: No Food Insecurity (02/16/2024) Hunger Vital Sign Worried About Running Out of Food in the Last Year: Never true Ran Out of Food in the Last Year: Never true Transportation Needs: No Transportation Needs (02/16/2024) PRAPARE - Transportation Lack of Transportation (Medical): No Lack of Transportation (Non-Medical): No Physical Activity: Not on file Housing Stability: Not At Risk (02/20/2024) C - Inadequate Housing Current Living Situation: I have a steady place to live Housing Problems: None of the above No family history on file. Medications Medications Prior to Admission Medication Sig Dispense Refill Last Dose/Taking albuterol 90 mcg/actuation HFA aerosol inhaler inhaler Inhale 2 Puffs as directed 4 times daily. Taking amLODIPine (NORVASC) 10 mg tablet Take 1 Tablet by mouth daily. ANORO ELLIPTA 62.5-25 mcg/actuation inhaler Inhale 1 Puff as directed daily. Taking aspirin chewable 81 mg tablet Take 1 Tablet by mouth daily. metoprolol SUCCinate (TOPROL-XL) 25 mg tablet Take 1 Tablet by mouth daily. pantoprazole (PROTONIX) 40 mg tablet Take 1 Tablet by mouth daily before breakfast. Current Facility-Administered Medications Medication Route Frequency acetaminophen (TYLENOL) tablet 1,000 mg oral TID apixaban (ELIQUIS) tablet 2.5 mg oral BID aspirin chewable tablet 81 mg oral DAILY budesonide-formoterol HFA (SYMBICORT) 80-4.5 mcg/actuation inhaler 2 Puff inhalation Q12H cholecalciferol (Vitamin D3) tablet 2,000 Units oral DAILY dextrose 50 % solution 12.5 g intravenous PRN Dimethicone-Zinc Oxide 20-25 % spray,non-aerosol topical BID furosemide (LASIX) 10 mg/mL injection glucagon injection 1 mg intramuscular PRN guaiFENesin (MUCINEX) SR tablet 600 mg oral BID HYDROmorphone (DILAUDID) tablet 2 mg oral Q4H PRN ipratropium-albuteroL (DUONEB) 0.5 mg-3 mg(2.5 mg base)/3 mL nebulizer solution 3 mL nebulization QID lidocaine (PF) 10 mg/mL (1 %) injection 2 mg intradermal PRN lidocaine 5 % (LIDODERM) patch 1 Patch transdermal DAILY metoprolol SUCCinate (TOPROL-XL) tablet 25 mg oral DAILY nystatin (MYCOSTATIN) suspension 500,000 Units oral QID pantoprazole (PROTONIX) tablet 40 mg oral DAILY TAMSulosin (FLOMAX) capsule 0.4 mg oral DAILY tiotropium bromide (SPIRIVA RESPIMAT) 2.5 mcg/actuation inhalation mist 2 Puff inhalation DAILY torsemide (DEMADEX) tablet 20 mg oral DAILY wound dressing (TRIAD) paste topical BID Allergies No Known Allergies Objective Vital Signs: Temp: [36.8 ??C (98.3 ??F)-37.8 ??C (100 ??F)] , Pulse: [84] , Resp: [16-18] , BP: (96-130)/(47-79) , SpO2: [83 %-97 %] Physical Exam: General: Appears stated age. HEENT: Sclerae anicteric. CV: RRR, S1/S2, no murmurs Lungs: Symmetric chest expansion. Decreased aeration throughout Abd: Soft, non-distended, + bowel sounds, non-tender to palpation Skin: Warm and dry; no rashes or lesions visualized on exposed skin areas. Neuro: AOx3, moving all extremities Psych: appropriate, cooperative, pleasant Pertinent Labs: Lab Results Component Value Date WBC 20.40 (H) 02/26/2024 WBC 22.32 (H) 02/24/2024 WBC 19.09 (H) 02/23/2024 HGB 10.3 (L) 02/26/2024 HGB 11.6 (L) 02/24/2024 HGB 11.6 (L) 02/23/2024 HCT 31.3 (L) 02/26/2024 HCT 34.4 (L) 02/24/2024 HCT 35.4 (L) 02/23/2024 PLT 311 02/26/2024 PLT 311 02/24/2024 PLT 274 02/23/2024 Lab Results Component Value Date WBC 20.40 (H) 02/26/2024 Micro: No results found for this or any previous visit (from the past 24 hours). Imaging: CT angio 02/16/2024 IMPRESSION 1. No evidence of pulmonary embolism. 2. Patchy opacity in the periphery of the right middle lobe, lingula and posterior segment of the right upper lobe, favored to reflect atelectasis, although superimposed infection is not excluded. 3. Large mucous plugs in the trachea and occluding several segmental bronchi to the lower lobes bilaterally. 4. 1.1 [...] coronary artery and aortic valve calcification. 8. Assessment and Plan: 83 y.o. with a past medical history of COPD on 3 to 5 L at home, GERD, hypertension who originally presented to [facility] for hip fracture. Pulmonary Medicine is now being consulted for use of Oxymizer rehab. Does have a small shunt on the limited echo today which would explain some of his hypoxia. Unfortunately, they were unable to assess his pulmonary artery pressure. It is possible that it is still elevated despite diuresis, this would be a sign of his prolonged hypoxia and lung disease. Would recommend referral to a near eastern archaeology lecturer out in his [place] area. Would be reasonable to start him onStiolto given the different administration mechanism. Further care can be managed outpatient, is appropriate for Oxymizer at rehab. He should preoxygenated with the Oxymizer for several minutes before he gets up and moves around. When he is finally home, would be reasonable candidate for pulmonary r ehab, however will defer to his outpatient near eastern archaeology lecturer that he establishes care to set that up. Patient was examined and recommendations provided in collaboration with attending: Dr. Weiss. Juan Jose Barajas DO PGY-6 Pulmonary and Critical Care Medicine Cosigned by Bryan Weiss MD at 02/27/2024 17:40 EST Associated attestation - Bryan Weiss MD - 02/27/2024 1740 EST Attending Attestation: I performed or was present during the marsh or critical portions of the visit and participated in themanagement of the patient on 02/27/24. I agree with the findings and plan of care documented in the fellow's note. - Regarding considerations for respimat formulary with Stiolto. This may be an easier medication for inhalation though would need to evaluate inhaler teaching and technique as some patients struggle with hand dexterity to use. - no known eosinophils > 300/uL could otherwise consider Breztri or Bevespi inhaler for maintenance therapy - consider albuterol 2 puffs prior to providing long-acting maintenance inhaler. - mucinex 600mg 1-2 times a day prn Bryan Weiss MD Attending Physician Pulmonary Disease-Critical Care Medicine [facility] * Char Martinez MD - 02/16/2024 1603 EST Orthopaedic Surgery Consultation Consultation requested by: Dr. Cardenas for: Right femoral neck fracture HPI: Noe Sue is a 83 y.o. male past medical history significant for COPD with chronic hypoxic respiratory failure (3-5L O2 at baseline), Atrial fibrillation on aspirin, who presents to transfer initially from [facility] for right femoral neck fracture after a fall where he had lab abnormalities with hyperkalemia and leukocytosis with an abnormal procalcitonin, and anesthesia was uncomfortable doing surgery due to the patient's oxygen requirements so he was then transferred to [facility] where his admission was complicated by acute on chronic hypoxic and hypercarbic respiratory failure secondary to COPD exacerbation, and was placed on high flow nasal cannula and had atrial fibrillation with RVR and was placed on a diltiazem infusion and switched to an amio infusion.He had an echo at [facility] that demonstrated severe pulmonary hypertension and he was transferred here for further care. Orthopedics consulted for right femoral neck fracture. On the night between 02/12-02/13, he lost his balance while getting up to go to the bathroom and fellonto his right hip. Denies head strike or LOC and recalls event. Denies presyncopal symptoms prior to his fall. He only had isolated right hip pain. Denies numbness or tingling. Presented outside hospital and was transferred eventually here for further care (see hospital course details above). Currently has only right hip pain. Denies pain elsewhere. Ambulatory status: Independent at baseline No past medical history on file. No past surgical history on file. Prior to Admission medications Medication Sig Start Date End Date Taking? Authorizing Provider amLODIPine (NORVASC) 10 mg tablet Take 1 Tablet by mouth daily. ProviderArt MD aspirin chewable 81 mg tablet Take 1 Tablet by mouth daily. ProviderArt MD metoprolol SUCCinate (TOPROL-XL) 25 mg tablet Take 1 Tablet by mouth daily. ProviderArt MD pantoprazole (PROTONIX) 40 mg tablet Take 1 Tablet by mouth daily before breakfast. ProviderArt MD No Known Allergies No family history on file. Social History: reports that he has quit smoking. His smoking use included cigarettes. He does not have any smokeless tobacco history on file. He reports that he does not drink alcohol and does not use drugs. Occupational History Not on file Review of Systems: A 10-point review of systems was obtained and pertinent positives are included in the HPI. All others are negative. Physical Exam: BP 129/66 Resp 30 Ht 175.3 cm (69.02) Wt 52 kg (114 lb 11.2 oz) SpO2 93% BMI 16.93 kg/m?? General: alert, awake, no apparent distress Respiratory: On high flow CV: slight tachycardia as judged by distal pulses Focused Musculoskeletal and Neurovascular Examination Right lower extremity Inspection: No open injury, laceration, erythema, rash, abrasions. Palpation: TTP proximal thigh. No tenderness to palpation of the forefoot, midfoot, hindfoot, ankle, leg, knee. Sensation: Sensation intact to light touch in peripheral nerve distributions: Superficial peroneal,deep peroneal, tibial, sural, and saphenous. Vascular: Dopplerable PT and DP Motor: 5/5 EHL/FHL/GSC/TA. Fires Quad/Hamstring Labs: WBC/Hgb/Hct/Plts: 19.76/12.5/37.3/130 (02/15 1700) Na/K/Cl/CO2: 140/5.2/97/36 (02/15 1700) BUN/Cr/glu/ALT/AST/amyl/lip: 70/2.54/179/50/32/--/-- (02/15 1700) PT/INR/PTT: 11.3/1.0/20 (02/15 1700) Diagnostic Imaging: - Plain radiographs of the right hip, ortho pelvis, right completion femur have been independently reviewed by myself and demonstrate displaced right displaced transcervical femoral neck fracture. Assessment: Noe Sue [id number] Noe Sue is a 83 y.o. male with past medical history significant for COPD with chronic hypoxic respiratory failure (3-5L O2 at baseline), Atrial fibrillation on aspirin, who presents to transfer initially from [facility] for right femoral neck fracture after a fallwhere he had lab abnormalities with hyperkalemia and leukocytosis with an abnormal procalcitonin, and anesthesia was uncomfortable doing surgery due to the patient's oxygen requirements so he was then transferred to [facility] where his admission was complicated by acute on chronic hypoxic and hypercarbic respiratory failure secondary to COPD exacerbation, and was placed on high flow nasal cannula and had atrial fibrillation with RVR and was placed on a diltiazem infusion and switched to an amio infusion. He had an echo at [facility] that demonstrated severe pulmonary hypertension and he was transferred here for further care. Orthopedics consulted for right displaced femoral neck fracture. Plan for operative fixation when medically stable. Appreciate MICU care. Following discussion with MICU, will plan for tomorrow. Plan: Plan for operative intervention of right hip fracture when medically ready Analgesia: Multimodal. Antibiotics: Preop Ancef on-call the OR Activity: NWB RLE, bedrest N.p.o. at midnight Hold chemoprophylaxis for OR Appreciate remainder of care per MICU Discussed with: Dr. Ceja The above plan/recommendations are not final until the note is signed. CHAR MARTINEZ MD PGY-2 Orthopaedic Surgery 02/16/2024 19:29 Pager #[phone], or EPIC Chat Cosigned by Augustine Ceja MD at 02/17/2024 10:59 EST Associated attestation - Augustine Ceja MD - 02/17/2024 1059 EST Attestation: I performed or was present during the marsh or critical portions of the visit and participated in the management of the patient on 02/17/24. I agree with the findings and plan of care as documented in the resident's/fellow's note. 83-year-old male with significant medical comorbidities including COPD, A-fib, hypertension, pulmonary hypertension. He sustained a right displaced femoral neck fracture after a fall approximately 3 days ago. He initially was transferred to [facility] from outside hospital for surgery for his right hip. Unfortunately he developed severe respiratory distress from his COPD and was admitted to the ICU on 02/16/2024. Due to the severity of his illness and not being able to undergo spinal anesthesia, request for transfer was made to [facility] for higher level of care. He was then transferred to the ICU at [facility], evaluated and deemed as optimized as possible for surgery. I had a long di scussion with him as well as his granddaughter about his options, given that he was ambulatory at baseline prior to this injury, and his primary goal is to maintain mobility and improve his pain control, he wishes to proceed with surgery in the form of hemiarthroplasty. We discussed that this is a very high risk surgery due to his pulmonary status, and that there is a chance that he would not be able to wean from the ventilator. He and his granddaughter are fully aware of this. He is DNR DNI, which is waived for the surgery, but if he were to remain intubated postoperatively, a family decision would be made the following day when all parties are present with regards to next steps. Other risks were discussed including cardiac event, pulmonary embolism, pneumonia of bedsores DVT, infection,instability, fracture. He described are aware of the above, and wished to proceed with surgery. Will plan for right hip hemiarthroplasty. Appreciate care of the medical ICU team Augustine Ceja MD 02/17/2024 10:53 documented in this encounter OR Notes * OR Surgeon - Denita Thomas MD - 02/17/2024 1443 EST OPERATIVE REPORT SERVICE DATE: 02/17/24 SURGEON: Augustine Ceja MD CARTOONIST SPECIAL EFFECTS: DENITA THOMAS MD, Russell Rodriguez MD PREOPERATIVE DIAGNOSIS: Right displaced femoral neck fracture. POSTOPERATIVE DIAGNOSIS: Right displaced femoral neck fracture. PROCEDURE: Right hip cemented unipolar hemiarthroplasty (CPT 45302). ANESTHESIA: Epidural with IV sedation ESTIMATED BLOOD LOSS: 150 mL. FLUIDS: 150 mL crystalloid. URINE OUTPUT: 250 mL. IMPLANTS: Yoan size 4 Accolade C 132 stem, 53 mm +0 head, medium Ontiveros plug, 11 mm centralizer. INDICATIONS: The patient presented with a right displaced femoral neck fracture after a ground level mechanical fall. We discussed the risks, benefits and alternatives of surgical and nonsurgical management. Specifically, the risks of surgical management include leg length discrepancy, dislocation,acetabular erosion, persistent hip pain, periprosthetic fracture, damage to surrounding neurovascular structures, infection, blood loss requiring transfusion and the need for revision surgery. The patient and family weighed the risks and benefits and decided to proceed with an operation. Perioperative risk assessment and optimization was completed by the internal medicine service. Informed consent was signed. NARRATIVE: The patient was met in preoperative hold where the identity, surgical site and consent were confirmed. All final questions were answered, and the patient was brought back to the operating room and placed supine on the OR table. Epidural anesthesia was successfully placed by the anesthesia staff. The patient was placed in lateral decubitus position. All bony prominences were well padded. Hip rests and an axillary roll were placed. Step 1 and 2 of the WHO checklist were completed. Two grams of prophylactic cefazolin were given prior to surgical start. 1 gram TXA was administered prior to incision. The right lower extremity was prepped and draped in usual sterile fashion. Bony landmarks of the GT and the shaft of the femur were palpated. Through a 10 cm anterolateral approach, the skin was sharply incised with a 10 blade. Weitlaner retractors were used to assist in spreading tissue while a heavy forceps was used to elevate the subcutaneous tissue for electrocautery d issection. Once the IT band was encountered, a small knick was made with electrocautery. Kolb scissors were used to incise the IT band distal to the knick to the level of the distal edge of the skin incision and proximally the IT band split was continued with electrocautery. Next, the bursa superficial to the abductors was identified, elevated with heavy forceps, and dissected off with electrocautery. The anterior 1/3 of the gluteus medius was split and elevated off the greater trochanter. Thiswas tagged with #5 ethibond. The capsule was identified and a T shaped capsulotomy was performed and carried back to the labrum taking care not to damage the labrum. The corners were tagged with #5 et hibond. The then elevated all capsular tissue off the fractured neck and down to the lesser trochanter. An Olfrank retractor was placed around the inferior neck and a Diego retractor was placed around the superior neck. The neck cut was then performed using a sagittal saw and completed using an osteotome. The femoral head was then drilled with a corckscrew and removed. The head was removed and sized to 53mm. The acetabulum was inspected, revealing minimal chondral defects. A 53 mm head sizer was inserted into the acetabulum and fit with satisfaction. On the femoral side, the canal was opened with a Sanchez box osteotome, Charsophie canal finder, and an opening reamer. Sequential broaches were used to open up the canal. The size 4 broach had appropriate fit, thus a size 4 132 degree stem was selected. The canal was measured to be the appropriate fit for a size 11 mm centralizer. The femoral canal was irrigated with pulse lavage and then dried. A medium cement restrictor was placed into the canal at the appropriate depth for the size stem we selected. Cement was placed and pressurized into the canal and the femoral component with the selected centralizer was placed into the previously broachedposition, ensuring lateralization and appropriate version. The cement hardened to our satisfaction. Trialing was then carried out with a size 53 head +0 to confirm leg length and hip stability. The trials were then removed and a size 53 head +0 was placed on the clean White taper and impacted in place. The hip was reduced, stability was maintained and a smooth range of motion was confirmed. Finalrange of motion testing confirmed stability with hip flexion to 90, adduction to 30, and internal rotation to 45 without any impingement or subluxation. The hip was also stable to maximal adduction, external rotation and extension. No impingement was identified. The wound was thoroughly irrigated with normal saline. The capsule was repaired with #1 Vicryl. Thegluteus medius tendon and insertion was repaired using #1 Vicryl. The iliotibial band and gluteal fascia was closed with a combination of [id number] interrupted #1 vicryl and running #1 PDS stratafix. Subcutaneous tissues were closed with interrupted 2-0 monocryl strafix. 75cc of orthopaedic periarticular injection was infiltrated into the wound. Finally, skin was closed with subcuticular running 3-0 Monocryl and Dermabond. A sterile Mepilex border dressing was applied after the dermabond hardened. The patient was awoken from anesthesia, transferred to a regular hospital bed. Postoperative x-rays demonstrated adequate position of the stem with a located hip. The foot was warm and well perfused and the sciatic nerve was functioning at the end of the case. The patient was brought to the MICU in stable condition. The patient tolerated the procedure well. There were no complications. Dr. Ceja was present for the entire case. DENITA THOMAS MD 02/17/2024 14:44 Cosigned by Augustine Ceja MD at 02/18/2024 6:53 EST documented in this encounter Miscellaneous Notes * Plan of Care - Corrie Davidson RN - 02/28/2024 0145 EST Problem: Daily Care Plan Goals Goal: Care Plan Documentation Flowsheets (Taken 02/27/2024 1900) Area of Focus: Sleep Goal This Shift: Adeqaute sleep Data: Pt AAOx3. Regular Diet. VSQ8. Continuous pulse ox, NC 4l. Action: Meds given per mar, Q2 turns, clustered care to promote rest. Response: Patient in bed, call spencer within reach. CORRIE DAVIDSON RN 02/28/2024 1:45 * Plan of Care - Julissa Gavin RN - 02/27/2024 1428 EST Problem: Daily Care Plan Goals Goal: Care Plan Documentation Flowsheets (Taken 02/27/2024 0823) Area of Focus: Respiratory Goal This Shift: Pt will retain O2 sat no less than 88% per MD recommendation. Note: Data: pt has severe COPD, and is currently in resp failure. At rest when laying on back pt resp rate is increased and O2 Sat fluctuates between 88% and 92% with some occasional drops into 86 but willincrease immediately after. However pt O2 sat will drop lower with nearly any activity. Including drinking water and basic repositioning. Pt O2 appears to increase as high as 97% if laying on his right side specifically decreases again when laying on back. Action: regular monitoring of resp status and O2 sat. Reposition pt and provide PRN medications as needed to help open airway and promote breathing. Treat any pain that may further increase resp ratethrough discomfort? Response: pt O2 status on recent check remains above 88% (91% on last check) pt reports he doesn't feel respiratory distress, though resp rate is still slightly elevated. Pt also reports no pain at this time. JULISSA GAVIN RN 02/27/2024 14:28 * Plan of Care - Corrie Davidson RN - 02/27/2024 0205 EST Problem: Daily Care Plan Goals Goal: Care Plan Documentation Flowsheets (Taken 02/26/2024 1900) Area of Focus: Sleep Goal This Shift: Adeqaute sleep Data: Patient AAOX3. Regular Diet. VSQ8. Continuous pulse ox, NC 5 L. Action: Meds given per mar, Q2 turns, sacrum dressing changed. Response: Patient in bed, call spencer within reach. CORRIE DAVIDSON RN 02/27/2024 2:05 * Plan of Care - Hui Wood RN - 02/26/2024 1535 EST Problem: Daily Care Plan Goals Goal: Care Plan Documentation Flowsheets (Taken 02/26/2024 0700) Area of Focus: Respiratory Data: Pt admitted for acute hypoxic resp failure. Goal oxygen sat 88-92%. Pt requires more o2 when moving from bed to chair. Action: Medications given per jun. 6L NC when in bed. Venti mask when up and moving. Sarasteady to move pt to recliner. Hourly rounding and cluster given. Response: Pt makes needs known and uses call spencer. Pt sitting in bed. HUI WOOD RN 02/26/2024 15:36 * Plan of Care - Deysi Storm RN - 02/26/2024 0225 EST Problem: Daily Care Plan Goals Goal: Care Plan Documentation Outcome: Ongoing Flowsheets (Taken 02/26/2024 0200) Area of Focus: Respiratory Goal This Shift: Pt will have sp02 >88% Problem: Pressure Ulcer Prevention Goal: Absence Of Pressure Ulcer Outcome: Ongoing Problem: Respiratory distress related to problem list condition Goal: Resident's pain/discomfort is manageable Description: INTERVENTIONS: 1. Observe for and document signs and symptoms respiratory distress: shortness of breath, dyspnea, cyanosis, labored respirations, congestion, cough, adventitious lung sounds, and report to provider 2. Auscultate lungs as needed and report abnormals to provider 3. Obtain oxygen saturation as needed 4. Oxygen at 2 LPM per nasal canula as needed 5. Observe for and document signs and symptoms of congestive heart failure: pulmonary congestion, edema, change in rate and character of heart rate, and report to provider 6. Nurse will administer medication as ordered by provider 7. Droplet isolation per order 8. Elevate head of bed for respiratory ease 9. Encourage coughing and deep breathing to facilitate deep respirations and removal of secretions 10. Encourage resident to participate in ADLs and activities 11. Obtain chest x-ray as ordered and report results to provider 12. Obtain sputum culture as ordered and report results to provider Outcome: Ongoing Goal: Resident willl remain comfortable Data: Assumed patient care at 1900. Patient is alert and oriented x3. Able to verbalize needs. Indwelling catheter in place. On 02 at 5lpm sating at 90-95. Denies pain. Action: Hourly rounding completed. Lewis care done and recorded. Q2 turns provided to prevent bed sores. Head of bed elevated to promote lung expansion. Medications given as per JUN. Response: Patient slept comfortably. No respiratory distress noted. No acute changes on shift. VSS. DEYSI STORM RN 02/26/2024 5:28 * Plan of Care - Lexii Walker RN - 02/25/2024 1723 EST Problem: Daily Care Plan Goals Goal: Care Plan Documentation Outcome: Ongoing Flowsheets (Taken 02/25/2024 0705) Area of Focus: Respiratory Goal This Shift: pt will have sp02 greater than 88% Data: Pt A/Ox3, reg diet w/boost 3xdaily, VSQ8 continuous pulse ox, auralis bed, NC 5L, pt has beenstaying in bed duw to severe dyspnea but was told he ambulates w/FWW 2 assist, Action: Meds given per JUN, Q2 turns using wedges and pillows, applied mepilex to bony areas along spine and sacrum, sacrum dressing checked/changed 2xdaily, assisted with setting up meals, provided fresh beverages, bladder scan completed and placed lewis due to consistent retention after lewis wasremoved, hourly rounds, cluster care to promote rest Response: Pt takes pills whole w/thin liquids, pt did require venti mask when repositions and dressing changes required pt to lay down longer, pt resting in bed, call spencer w/in reach LEXII WALKER RN 02/25/2024 17:23 * Plan of Care - Russell Rodriguez MD - 02/25/2024 0646 EST Images from the original note were not included. Ortho plan of care Dressing removed at bedside Incision is clean, dry, and intact without surrounding erythema, drainage, dehiscence. No changes to plan, keep incision open to air Russell Rodriguez [facility] PGY-2 #[id number] nature * Plan of Care - Deysi Storm RN - 02/25/2024 0129 EST Problem: Daily Care Plan Goals Goal: Care Plan Documentation Outcome: Ongoing Flowsheets (Taken 02/25/2024 0046) Area of Focus: Respiratory Goal This Shift: pt will have sp02 >90% Data: Assumed patient care at 1900. Alert and oriented x3. Able to make needs known. Patient able to pass urine using urinal on bedside. Denies pain. On 02 via NC at 4lpm sating at 85-90%. Action: Hourly rounding completed. Medications given as per MAR. Clustered care to promote rest. N3pynrk done. Safety ensured. Response: Patient able to sleep soundly. VSS. No acute changes during shift. Safety maintained. DEYSI STORM RN 02/25/2024 6:09 * Plan of Care - Fouzia Lucio RN - 02/24/2024 1029 EST Problem: Daily Care Plan Goals Goal: Care Plan Documentation Outcome: Ongoing Flowsheets (Taken 02/24/2024 0807) Area of Focus: Skin Integrity Goal This Shift: pt skin integrity will be maintained/improve this shift Focus: Pressure Injury Treatment Data: Patient presents with skin breakdown. Wound noted to sacrum. See LDA flowsheet for further details. Patient has impaired mobility. Action: Mobility encouraged, including turning frequently/ getting in and out of bed as tolerated. Patient was turned in bed Q2 and assisted out of bed as tolerated. Barrier cream applied to affectedarea q.d. and PRN (see MAR). Mepilex dressing applied to sacrum. Patient educated about proper nutrition, including high protein intake to encourage wound healing. WOCN consult obtained. Response: Patient???s skin shows signs of wound healing. Will continue to assess patient???s skin every shift and follow recommendations of WOCN. Will consult WOCN further if needed. FOUZIA LUCIO RN 02/24/2024 10:29 * Plan of Care - Fouzia Lucio RN - 02/23/2024 0959 EST Problem: Daily Care Plan Goals Goal: Care Plan Documentation Outcome: Ongoing Flowsheets (Taken 02/23/2024 0851) Area of Focus: Skin Integrity Goal This Shift: Skin integrity will be maintained or improve this shift Focus: Pressure Injury Treatment Data: Patient presents with skin breakdown. Wound noted to sacrum with mepilex in place. See LDA flowsheet for further details. Patient has impaired mobility. Action: Mobility encouraged, including turning frequently/getting in and out of bed as tolerated. Patient was turned in bed Q2/assisted out of bed as tolerated. Barrier cream applied to affected areaq.d. and PRN (see MAR). Mepilex dressing applied to heels, and sacrum. Patient educated about proper nutrition, including high protein intake to encourage wound healing. WOCN consult obtained. Lewis removed, bladder scan showing 280ml. Response: Patient???s skin shows signs of wound healing. Will continue to assess patient???s skin every shift and follow recommendations of WOCN. Will consult WOCN further if needed. FOUZIA LUCIO RN 02/23/2024 10:00 * Plan of Care - Corrie Davidson RN - 02/21/2024 0326 EST Images from the original note were not included. Problem: Daily Care Plan Goals Goal: Care Plan Documentation Flowsheets (Taken 02/20/2024 1900) Area of Focus: Sleep Goal This Shift: adequate sleep Data: Patient AAOX3. On 40% VM. On tele. Posterior hip precautions. Lewis draining, bed pain for bowels. Action: Meds given per mar, hourly rounding complete, Q2 turns. Response: Patient in bed call spencer within reach. CORRIE DAVIDSON RN 02/21/2024 3:26 * Plan of Care - Alena Richard RN - 02/20/2024 1753 EST 02/20/24 respiratory Data: per reports pt has been here a couple of days on high flow nasal cannula oxygen, and has beenhaving desats w/any exertion - needing to switch to 40% VM for all exertion in order to keep sats at minimally acceptable levels. at start of shift, pt is on high flow of 40L/min via high flow NC. At rest , pt is sating low 90's.RT is attempting weaning, and wean to 30L/min as of 814. . As of 917, pt was being turned for cat care, on high flow at 30L and desatted to mid 70's for 02 sat. For future exertions through the rest of the shift such as eating, taking meds, additional cat care, turns , talking, pt was placed on 40% VM and was able to maintain sats in mid to low 90's. When pt 's 40% VM was removed and pt returned to 30 or 40L/min High flow oxygen, he sometimes maintained asat above 88% briefly but after a few minutes would then return to sats in low 80's. Action: responded to multiple alarms for desats into high 70's /low 80's through the day by moving declan sensor, placing pt on VM briefly ;;communications w /RT; continued monitoring of pt's 02 satlevels. Response: as of approx 1730 RT has placed pt on VM 40%, and pt is consistently sating mid 90s even during exertion such as pericare/turns/eating/talking for cat care. Pt is tolerating wearing the VM. Continue to monitor. ALENA RICHARD RN 02/20/2024 17:53 * Wound Care - Jareth Alicea RN - 02/20/2024 1212 EST Images from the original note were not included. Wound Care Consult Admit Date: 02/16/2024 Date of Service: 02/20/2024 Reason for Consult: sacrum wound Consulted by: Yobani Alvarez RN HPI Noe Sue is a 83 y.o. male with a PMHx of COPD (3-5L home oxygen), possible AF (he deniesever being told he has AF), GERD, and HTN, who was transferred from [facility] to [facility] and then [facility] forsurgical management of a right femoral neck fracture in the setting of acute on chronic respiratoryfailure and severe PaHTN. Patient was initiated on treatment of COPD flare/CAP and diuresis for fluid overload and with improvement in his respiratory status. Patient is also s/p right hip cemented unipolar hemiarthroplasty on 02/17/2024 (Dr. Ceja). Surgery well tolerated. Course additionally c/b AF w/ RVR converted to NSRs/p amiodarone, now resolved. Patient is stable, still requiring significant supplemental oxygen requiring hospitalization. Assessment Pt was seen at the bedside on [facility] 3 and agreed to a skin assessment of his coccyx. Upon entering room pt lying on a specialty mattress with Skin IQ, disposable Chux pads, Z-flex boots, and was on HFNC. Pt was positioned to his left side with wedges in place. Z-flex boots removed, pt had white foam Mepilex heel dressings. Skin on pt's heels is intact, pale, and blanching. Z-flex boots re-applied. Clinical Photos - Sacrum (02/20/2024) Pt was turned to his left side with assist. Skin on pt's sacrum is denuded, erythematic, blanching and not painful on palpation. Pt has several, small full thickness wounds on his sacrum that were POA. Wound beds filled with white, adherent slough. Wound etiology from moisture and pressure. Incontinence care completed with RN. Site cleaned with no-rinse foam and wipes, sacral Mepilex applied. Left ear Right ear Pt's ears assessed. Skin on left ear is denuded, red, and blanching. Skin on right ear is intact and pale. Discussed skin findings with pt and RN. Reinforced importance of turning pt to offload pressure to sacrum b/c he is at increased risk for PI d/t deconditioned state and body habitus. Talked about need to protect pt's skin on his cheeks from HFNC straps and ears from NC. Skin should be assessed per shift and petroleum jelly can be used on denuded areas. Mccain foam nasal cannula cushions left at bedside for pt, RN notified. Recommendations Pressure Injury Prevention Bundle Q2hr turns, tilt sufficiently to fully offload sacrum/coccyx Wedges for turns/sacral offloading Friction reduction with all repositioning (Maxi Transfer sheet, Hovermatt or Maxi slide) Limit HOB elevation to 30 degrees unless medically contraindicated Sacral Mepilex, change every 5-7 days, lift qshift to assess. Leave off if soiled with incontinencemore than once/day. Ears B/L: Daily and PRN Apply petroleum jelly to red areas on Left ear Apply Nasal cannula ear cushions (mccain foam) to protect skin Mepilex Lite applied to pt's cheeks to protect them from HFNC strap Check skin on ears and cheeks daily Full thickness wounds- Sacrum: Twice daily and PRN Clean daily with normal saline Apply Triad paste to wound bed daily. Cover with a mepilex border Peel back mepilex daily to clean wound, assess, and apply Triad paste. Change dressing every 2-3 days and PRN. Leave off if soiled with incontinence more than once/day Incontinence care: Perineum Apply zinc spray after incontinence care to protect skin Wound Care will follow this patient. Please contact us via SecureChat ([facility] Wound Care Team) or reconsult for further concern. MONY Zavala, RN * Plan of Care - Julianne Pascal - 02/20/2024 1140 EST 02/20/24 1140 Meds to Beds Meds to Beds - Opt in? Yes * Plan of Care - Martin Davison RN - 02/20/2024 0158 EST Images from the original note were not included. Problem: Daily Care Plan Goals Goal: Care Plan Documentation Flowsheets (Taken 02/19/2024 194) Area of Focus: Respiratory Goal This Shift: pt will have spo2 of >88% on this shift Note: Data: Assumed pt care at 1930, alert and oriented; On high flow O2 at 40 lpm, spo2 88-92%; Desats to 86% when being repositioned but able to recover; Pain level at 6/10; On telemetry, afib; With lewis catheter, draining; Able to make needs known; Action: VS taken and recorded; Due meds given per MAR, including prn; Repositioned every 2-3 hrs; All needs attended; Response: left in bed resting with no acute changes throughout this shift; Still on HFNC at 40 lpm, spo2: 95-97%; Call button within reach. MARTIN DAVISON RN 02/20/2024 5:26 * Plan of Care - Rhea Fleming RN - 02/19/2024 0403 EST Problem: Daily Care Plan Goals Goal: Care Plan Documentation Outcome: Ongoing Flowsheets (Taken 02/19/2024 0357) Area of Focus: Respiratory Goal This Shift: patient will maintain SpO2 goal of 88-92% Data: patient AAOx3. VSS on venturi mask and then HFNC. Patient was due to void at 2200. Patient was only able to void 15 mL with a PVR of >533. Provider made aware, received order for straight cath and Q6H bladder scan. Patient continued to be unable to void, lewis replaced. Action: meds given per JUN. Hourly rounding completed. Patient repositioned Q2H. Response: patient with frequent episodes of desaturation. RT notified and came to bedside to assesspatient. Provider also made aware and came to bedside to assess patient (see documented notifications). Patient increased to 40L, 50% on HFNC. Patient satting above 88%. RHEA FLEMING RN 02/19/2024 4:03 * Plan of Care - Rhea Fleming RN - 02/18/2024 2156 EST Images from the original note were not included. NSR @ 02/18/2024 2157 NSR @ 02/19/2024 0400 * Plan of Care - Yobani Alvarez RN - 02/18/2024 1634 EST Problem: Daily Care Plan Goals Goal: Care Plan Documentation Flowsheets (Taken 02/18/2024 1604) Area of Focus: Respiratory Goal This Shift: pt will have afequate oxygenation this shift Note: Data: Pt to floor from MICU on 5L NC spo2 91%. Action: Continous pule ox on pt. Pt de sat to 82%. Placed pt on venti mask, notified provider, RT to bedside. Response: Pt maintained adequate oxygenation this shift. Pt in bed w/ call spencer in reach. Pt now on35% 8L spo2 @ 90%. YOBANI ALVAREZ RN 02/18/2024 16:30 * Transfer Summary (Intrafacility) - Macros Quintero MD - 02/18/2024 1330 EST Transfer Summary Note Admit Date: 02/16/2024 15:41 Hospital Day: LOS: 2 days Date of Service: 02/18/24 Reason for Admission to the MICU: 83 y.o. male who presented with a chief complaint of fall, and was admitted with a principal diagnosis of R femoral neck fracture and acute on chronic hypoxic respiratory failure Significant 24-hour events: - Underwent R hip cemented hemiarthroplasty in OR with ortho Subjective: Feels ok and states his pain control is fine. No CP, palpitations, nausea, vomiting or dizziness. No BM as yet and notes his abdomen feels firm. Is ok with getting lewis out. Objective: Vitals: Temp: [36.4 ??C (97.6 ??F)-36.8 ??C (98.3 ??F)] , Heart Rate: [66 BPM-96 BPM] , Pulse: --, Resp: [14-31] , BP: (79-122)/(44-87) , SpO2: [83 %-100 %] , O2 Flow Rate (L/min): 5 l/min Numeric Pain Level (Scale 1-10): 0 Weight: Weight : 53.1 kg (117 lb 1 oz) Body mass index is 17.28 kg/m??. Physical Exam: Gen: Alert, frail, pleasant, NAD HEENT: EOMI, anicteric, mmm, right lower lid lag. Lungs: few coarse crackles at L>R bases Heart: RRR (back in NSR on tele) Abdomen: Firm, ND, NT, nl BS's Extremities: no PARISH, right thigh is soft and dressings cdi Neurologic: A&O x3, normal speech, cranial nerves grossly intact b/l, gait was not assessed. Labs: CBC: Recent Labs 02/15/24 1519 02/16/[id number]/16/[id number]/17/[id number]/[id number]/[id number] WBC 21.84* < > 19.76* 16.70* 13.90* RBC 4.54 < > 3.85* 3.66* 3.41* HGB 14.5 < > 12.5* 11.7* 11.0* HCT 44.8 < > 37.3* 33.7* 32.3* MCV 99* < > 97* 92 95 MCH 31.9 < > 32.5 32.0 32.3 MCHC 32.4* < > 33.5 34.7 34.1 PLT 151 < > 130* 128* 125* NEUTROABS 19.49* -- -- -- -- < > = values in this interval not displayed. BMP: Recent Labs 02/16/24169902/17/2455702/18/24627 NA 140 134* 134* K 5.2* 4.4 4.5 CL 97 100 97 CO2 36* 30 36* BUN 70* 69* 70* CREATININE 2.54* 2.08* 2.11* CALCIUM 9.1 8.7 8.2* MG -- 2.1 -- LABALBU 3.0* 2.8* 2.7* LFT: Recent Labs 02/16/24 17002/17/24 0558 02/18/24627 TBIL 0.6 0.5 <0.5 ALKPHOS 104 83 80 AST 32 36 33 ALT 50* 49 36 Coagulation: Recent Labs 02/16/24 1700 02/17/24 1141 PROTIME 11.3 11.2 INR 1.0 1.0 PTT 20* -- Cardiac Markers: Recent Labs 02/15/24 1519 02/15/24 1751 02/16/24 0135 02/16/24 0537 02/16/24 0934 CK 272* -- -- 114 -- TROPONINI -- 0.403* 0.323* -- 0.244* Hemoglobin A1c: Recent Labs 02/16/24 1700 HGBA1C 6.1* Imaging: XR HIP RIGHT 1 VIEW Result Date: 02/17/2024 FINDINGS/IMPRESSION: 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 No periprosthetic fracture is seen. No acute left hip abnormality is seen. Atherosclerotic calcifications arepresent bilaterally. [id number] XR HIP LEFT 1 VIEW Result Date: 02/17/2024 FINDINGS/IMPRESSION: 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 No periprosthetic fracture is seen. No acute left hip abnormality is seen. Atherosclerotic calcifications arepresent bilaterally. [id number] CT ANGIO CHEST PE PROTOCOL Result Date: 02/17/2024 1. No evidence of pulmonary embolism. 2. Patchy opacity in the periphery of the right middle lobe, lingula and posterior segment of the right upper lobe, favored to reflect atelectasis, although superimposed infection is not excluded. 3. Large mucous plugs in the trachea and occluding several segmental bronchi to the lower lobes bilaterally. 4. 1.1 [...] artery and aortic valve calcification. 8. I havepersonally reviewed the images and the above interpretation and agree with the findings. [id number] XR HIP RIGHT 1 VIEW Result Date: 02/16/2024 Findings/impression: Redemonstrated right femoral neck fracture, not significantly changed. No left-sided hip fracture or dislocation. Mild degenerative changes of the left hip. The soft tissues are unremarkable. [id number] XR HIP LEFT 2-3 VIEWS OPTIONAL PELVIS Result Date: 02/16/2024 Findings/impression: Redemonstrated right femoral neck fracture, not significantly changed. No left-sided hip fracture or dislocation. Mild degenerative changes of the left hip. The soft tissues are unremarkable. [id number] XR CHEST PORTABLE 1 VIEW Result Date: 02/16/2024 Small bilateral pleural effusions. Slight interval increase in patchy airspace opacities at both lung bases and in the suprahilar right lung. [id number] Medications: Scheduled: acetaminophen, 1,000 mg, Q6H aspirin chewable, 81 mg, DAILY budesonide-formoterol HFA, 2 Puff, Q12H cefTRIAXone, 2,000 mg, Q24H doxycycline, 100 mg, Q12H heparin, 5,000 Units, Q8H ipratropium-albuteroL, 3 mL, QID lidocaine 5 %, 1 Patch, DAILY metoprolol SUCCinate, 25 mg, DAILY polyethylene glycol 3350, 17 g, DAILY predniSONE, 30 mg, DAILY Continuous: PRN: dextrose 50 %, 25 mL, PRN glucagon, 1 mg, PRN HYDROmorphone, 2 mg, Q4H PRN lidocaine, 2 mg, PRN magnesium sulfate, 2 g, PRN potassium chloride in water, 20 mEq, PRN senna, 2 Tablet, BID PRN Or sennosides, 10 mL, BID PRN Family and social history reviewed Assessment/Plan: Noe Sue is a 83 y.o. male with a PMHx significant for COPD (3-5L home oxygen), ?PAF (he denies ever being told he has AF), GERD, and HTN, who was transferred to [facility] for management of a right femoral neck fracture in the setting of acute on chronic respiratory failure and severe PaHTN. Chest CTA was notable for no PE, extensive areas of mucous plugging, bilateral effusions and a spiculated nodule in the lingula. He was treated for COPD flare/CAP and diureses for fluid overload with improvement in his respiratory status, and underwent successful right hip cemented unipolar hemiarthroplasty on 02/17/[address] Ceja. Course was additionally notable for AF/RVR, which has converted to NSR with amiodarone. Multifactorial acute on chronic hypoxic hypercapnic respiratory failure (baseline home O2 3-5L NC) -Wean supplemental O2 as tolerated -Maintain SpO2 88-92% -Cont Symbicort in place of OUTREACH TEAM MEMBER Anoro Ellipta -Prednisone for 2 more days (then reassess) -Duoneb q6h -airway clearance -Completes 5 day courses of Ceftriaxone + doxycycline today -Repeat chest CT in 1-3 months to reevaluate 1.1 cm spiculated lung nodule in the lingula Severe pulmonary HTN with RV failure (S/p lasix 160 mg and 5 mg metolazone 02/16/24 at [facility] prior [facility]) - No additional diuresis Afib with RVR (Patient denies h/o AF or taking eliquis, but report from [facility] said his last dose of eliquis was 02/13) -Telemetry monitoring -Cont OUTREACH TEAM MEMBER metoprolol XL 25 mg daily -need to call PCP Monday and investigate question of AF and AC HTN -cont OUTREACH TEAM MEMBER metoprolol XL 25 mg daily -Holding OUTREACH TEAM MEMBER amlodipine 10 mg daily GI (GERD and constipation) -OUTREACH TEAM MEMBER pantoprazole -scheduled bowel Rx CHRISTIANO (improving, baseline Cr about 1 per note from [facility]) -Daily BMP -Strict I/Os Right femoral neck fracture s/p R hip cemented hemiarthroplasty 02/16 -WBAT RLE, AAT with posterior hip precautions -Scheduled tylenol -Hydromorphone 2mg PO PRN -DC lewis (and check post void) -PT -checking Vit D level (cont supplement) -needs osteoporosis treatment post DC VTE Prophylaxis: Heparin 5000 units q8 (can change to enoxaparin (or Abixaban) once CHRISTIANO resolves (and hemostasis is assured) Code status: Limitation of Treatment DNR Do not intubate (DNI) Marcos Quintero MD * Plan of Care - Carlyn Mueller - 02/18/2024 1036 EST 02/18/24 1036 Discharge Delay Risk Assessment 1. Disease/Medical Condition 5 2. Hospitalization 2 3. Family Structure 2 4. Activities of daily living 1 Major Barrier day total 1-6 4 Risk for Delayed Discharge At Risk For Delayed Discharge Does the patient meet criteria to be escalated? No Chart reviewed. CM will follow up for psychosocial assessment. * Plan of Care - Trisha Tran RN - 02/17/20242158 EST Images from the original note were not included. Data: Pt admitted 02/16/24 requiring surgery for R femoral head fracture, completed today. Hx includes right HF, COPD, pulm HTN, and wears O2 NC 2-5 L at home. Pt currently on HFNC 40/40 and amiodarone gtt for afib. Pt heart rhythm goes from afib to nsr. Action: -Meds given per EMAR -Pt turned Q 2 hours -O2 weaned to 6L via NC, still has periods of desating but recovers -Granddaughter at bedside overnight- wants to talk woth case management about getting pt to hospital closer to home ([facility], [facility]) Response: HR and BP stable, Occasional desat. Dressing c/d/I. Granddaughter at bedside. Continues on HFNC and amiodarone gtt. TRISHA TRAN RN 02/17/2024 21:59 Problem: Daily Care Plan Goals Goal: Care Plan Documentation Outcome: Ongoing Flowsheets (Taken 02/16/20241999 by Hilary Higgins, ASHVIN) Area of Focus: Respiratory Goal This Shift: Wean HFNC Problem: SKIN INTEGRITY Goal: Skin integrity will improve or be maintained Outcome: Ongoing Problem: Pressure Ulcer Prevention Goal: Absence Of Pressure Ulcer Outcome: Ongoing Problem: High Fall Risk: Goal: Patient Will Remain Free from Fall-Related Injury Outcome: Ongoing Problem: Respiratory distress related to problem list condition Goal: Resident will be free from signs and symptoms of aspiration or complications if aspiration has occurred Description: INTERVENTIONS: Nurse: 1. Auscultate lungs as needed 2. Suction as needed 3. Assess for signs and symptoms of aspiration, document, and report to provider as needed 5. Check tube feeding residuals every shift 6. Check tube placement every shift via auscultation/aspiration prior to administration of medications, feedings, and flushes 7. Keep head of bed elevated 30-45 degrees at all times Nurse Aides: 1. Observe for signs and symptoms of aspiration and notify nurse: Coughing, choking, clear nasal drainage, sudden extreme elevation in temperature, congestion, or shortness of breath 2. Keep head of bed elevated 30-45 degrees at all times Outcome: Ongoing Goal: Resident willl remain comfortable Description: NURSING APPROACHES: 1. Administer pain medication per MD orders 2. Administer antianxiety medication per MD orders 3. Provide family and resident support 4. Teach family and resident about some changes they might see on the residents EOL process CONCRETE BUILDINGS ASSEMBLER APPROACHES: 1. Report and signs/symptoms of pain to nurse immediately 2. Report any signs/symptoms of anxiety/restlessness to nurse immediately Outcome: Ongoing * Brief Op Note - Denita Thomas MD - 02/17/2024 1443 EST Department of Orthopaedics Brief Op Note Date of Surgery: 02/17/2024 Surgeon: Augustine Ceja MD Assistants: Denita Thomas MD; Sadi Parker MD Pre-Op Diagnosis: Right closed displaced femoral neck fracture Post-Op Diagnosis: Same Procedure(s): Right hip cemented hemiarthroplasty Findings: See formal operative report Anesthesia Type: General Tourniquet Time: None Estimated Blood Loss: 150 cc Drains: None Implants: [employer]wright Accolade C Size 4 132 degree Stem, Size 53mm +0 Unitrax [place] Chrome Head, Size 11mm Centralizer, Medium Ontiveros Plug Implant Name Type Inv. Item Serial No. Director Outcomes Lot No. LRB No. Used Action RESTRICTOR CEMENT ONTIVEROS 25MM DISTAL FEM HIP RECON SURGERY ST - [id number] Total Joint Implant RESTRICTOR CEMENT ONTIVEROS 25MM DISTAL FEM HIP RECON SURGERY ST [id number] [employer] [id number] Right 1Implanted HIP FEMORAL STEM CMNTD 132DEG STD OFFST SZ 4 [id number] ACCOLADE C [id number] - [id number] Total Joint Implant HIP FEMORAL STEM CMNTD 132DEG STD OFFST SZ 4 [id number] ACCOLADE C [id number] [employer] [id number] Right 1 Implanted HIP SPACER STEM DISTAL CEMENTED 11MM ACCOLADE [id number] - [id number] Total Joint Implant HIP SPACER STEM DISTAL CEMENTED 11MM ACCOLADE [id number] [employer] [id number] Right 1 Implanted CEMENT BONE HIGH VISCOSITY TOBRAMYCIN RADIOPAQUE SINGLE DOSE YANES 40GM SIMPLEX [id number] - [id number] Ortho Implant CEMENT BONE HIGH VISCOSITY TOBRAMYCIN RADIOPAQUE SINGLE DOSE YANES 40GM SIMPLEX [id number] [facility] [id number] Right 2 Implanted HIP HEAD UNIPOLAR COCR 53MM UNITRAX [id number] - [id number] Total Joint Implant HIP HEAD UNIPOLAR [id number] UNITRAX [id number] [employer] [id number] Right 1 Implanted HIP TAPER SLEEVE STANDARD OFFSET FEMORAL V40 [id number] - [id number] Total Joint Implant HIP TAPER SLEEVE STANDARD OFFSET FEMORAL V40 [id number] [employer] [id number] Right 1 Implanted Closure: Monocryl, Dermabond, Mepilex Disposition and Condition: MICU in Stable condition per anesthesia. Plan: To MICU Pain control: Multimodal as written DVT ppx : okay to resume DVT ppx this evening Antibiotics: 2g Ancef q8h x 24 hrs Activity: WBAT RLE, AAT Posterior hip precautions PT eval: routine Diet: Okay from ortho perspective DENITA THOMAS MD 02/17/2024 14:43 0932 * Plan of Care - Regine Jacobs RN - 02/17/2024 0941 EST Images from the original note were not included. Data: Pt admitted yesterday requiring HFNC and in need of surgery for R femoral head fracture. Pt currently on HFNC 40/40 and amiodarone gtt for afib.Pt flips from afib to nsr. Action: Pt assessed, npo for OR . Promote rest and turn q 2. 1150- Pt to OR on 4 l nc Response: Returned from OR. HR and BP stable, Occasional desat. Dressing c/d/I. Granddaughter at bedside. Continues on HFNC and amiodarone gtt. REGINE JACOBS RN 02/17/2024 9:26 * Plan of Care - Char Martinez MD - 02/16/2024 1937 EST Orthopedic brief note Case discussed with MICU resident, plan for OR tomorrow, case booked. NPO at midnight. CHAR MARTINEZ MD PGY-2 Orthopaedic Surgery 02/16/2024 19:37 Pager #[phone], or EPIC Chat * Plan of Care - Honey Spring RN - 02/16/2024 1847 EST Images from the original note were not included. Noe Sue admitted to MICU at approx 1600 from [facility], Patient admitted with Acute hypoxic respiratory failure ([facility] Arrived on NRB 10L; transferred to [facility]; poor reserves, pt desats to low 80s while laying flat/on turns. Shallow respirations. Denies SOB. HFNC 50/50. On amio gtt at 1 mg/min on arrival; titrated to 0.5mg/min. Afib in low 100s to ST with SV prematurecomplexes. Pos R hip fx; NPO at midnight for possible surgery 02/16. Nerve block prior to admission; minimal reported hip pain. Pos distal pulses audible with doppler. Pt accompanied by MICU stained glass window designer to CT for r/o PE. Monitored cardiovascular, respiratory, neurological, GI and status. Strict I&O. Meds per eMAR Interventions: Turned and repositioned as tolerated. CHG bath provided and four eyes complete. Call spencer within reach. Safety and fall precautions maintained. Encouraged restful environment . Airstrip: Care Plans: Problem: SKIN INTEGRITY Goal: Skin integrity will improve or be maintained Outcome: Ongoing Problem: Respiratory distress related to problem list condition Goal: Resident's pain/discomfort is manageable Outcome: Ongoing Problem: Daily Care Plan Goals Goal: Care Plan Documentation Outcome: Ongoing documented in this encounter Plan of Treatment Upcoming Encounters Date Type Department Care Team (Late st Contact Info) Description 04/05/2024 10:15 EST Appointment [facility] Xray [address] [place] [address] 04/05/2024 10:30 EST Post-op Visit [facility] [address], [place] [id number] Ko Marquis PA-C [address] [place] [address] Scheduled Referrals Name Type Priority Associated Diagnoses Order Schedule AMB CONS/FOLLOW UP ENDOCRINOLOGY Outpatient Referral Routine/Next Available Osteoporosis with current pathological fracture, unspecified osteoporosis type, initial encounter Expected: 04/04/2024 (Approximate), Expires: 02/21/2025 AMB CONS/FOLLOW UP ORTHOPEDICS - [facility] Outpatient Referral Routine/Next Available Closed right hip fracture, initial encounter ([facility]) Expected: 03/23/2024 (Approximate), Expires: 02/21/2025 documented as of this encounter Procedures Procedure [...] PORTABLE 1 VIEW Routine 02/26/2024 12:08 EST COMPLETE BLOOD COUNT Routine 02/24/2024 9:22 EST BASIC METABOLIC PANEL (BMP) Routine 02/24/2024 9:22 EST COMPLETE BLOOD COUNT Routine 02/23/2024 12:04 EST BASIC METABOLIC PANEL (BMP) Routine 02/23/2024 12:04 EST COMPLETE BLOOD COUNT Routine 02/22/2024 11:01 EST BASIC METABOLIC PANEL (BMP) Routine 02/22/2024 11:01 EST COMPLETE BLOOD COUNT Routine 02/21/2024 9:58 EST BASIC METABOLIC PANEL (BMP) Routine 02/21/2024 9:58 EST COMPLETE BLOOD COUNT Routine 02/20/2024 10:07 EST BASIC METABOLIC PANEL (BMP) Routine 02/20/2024 10:07 EST MRSA PCR Routine 02/20/2024 5:04 EST WOUND EVALUATION AND TREAT Routine 02/19/2024 12:01 EST COMPLETE BLOOD COUNT Routine 02/19/2024 11:27 EST BASIC METABOLIC PANEL (BMP) Routine 02/19/2024 11:27 EST XR CHEST PORTABLE 1 VIEW STAT 02/18/2024 15:38 EST VITAMIN D (25,[place]) Add-On 02/18/2024 6:2 8 EST COMPLETE BLOOD COUNT Routine 02/18/2024 6:28 EST COMPREHENSIVE METABOLIC PANEL (CMP) Routine 02/18/2024 6:28 EST POCT GLUCOSE, INTERFACED Routine 02/17/2024 17:48 EST XR HIP RIGHT 1 VIEW Routine 02/17/2024 1 5:20 EST Closed right hip fracture, initial encounter ([facility]) XR HIP LEFT 1 VIEW Routine 02/17/2024 15 :20 EST Closed right hip fracture, initial encounter ([facility]) OPEN TREATMENT, FRACTURE, FEMUR, NECK, WITH INTERNAL FIXATION OR INSERTION OF PROSTHETIC 02/17/2024 11:44 EST Closed right hip fracture, initial encounter ([facility]) PROTIME STAT 02/17/2024 11:41 EST COMPLETE BLOOD COUNT Routine 02/17/2024 5:58 EST POCT GLUCOSE, INTERFACED Routine 02/17/2024 5:58 EST MAGNESIUM Add-On 02/17/2024 5:58 EST COMPREHENSIVE METABOLIC PANEL (CMP) Routine 02/17/2024 5:58 EST MRSA PCR Routine 02/17/2024 5:53 EST POCT GLUCOSE, INTERFACED Routine 02/16/2024 23:45 EST TYPE AND SCREEN Routine 02/16/2024 20:[address] ANGIO CHEST PE PROTOCOL STAT 02/16/2024 18:51 EST XR HIP RIGHT 1 VIEW STAT 02/16/2024 1 7:54 EST XR HIP LEFT 2-3 VIEWS, OPTIONAL PELVIS STAT 02/16/2024 17:52 EST PROCALCITONIN Routine 02/16/2024 17:00 EST PTT Add-On 02/16/2024 17:00 EST PROTIME Add-On 02/16/2024 17:00 EST HEPARIN LEVEL - UNFRACTIONATED HEPARIN STAT 02/16/2024 17:00 EST COMPLETE BLOOD COUNT STAT 02/16/2024 17:00 EST HEMOGLOBIN A1C Add-On 02/16/2024 17:00 EST COMPREHENSIVE METABOLIC PANEL (CMP) STAT 02/16/2024 17:00 EST POCT GLUCOSE, INTERFACED Routine 02/16/2024 16:59 EST EKG 12-LEAD Routine 02/16/2024 16:44 EST documented in this encounter Results * ECG REPORT - SCANNED (03/04/2024 11:39 EST) 03/04/2024 11:3 9 EST us Scan 2 Check Processor PROCEDURE/MINOR SURGICAL OR DERABLES Final Result * ECG REPORT - SCANNED (03/04/2024 9:35 EST) 03/04/2024 9:35 EST us Scan 2 Check Processor PROCEDURE/MINOR SURGICAL OR DERABLES Final Result * ECG REPORT - SCANNED (02/28/2024 10:36 EST) 02/28/2024 10:3 6 EST us Scan 2 Check Processor PROCEDURE/MINOR SURGICAL OR DERABLES Final Result * (ABNORMAL) COMPLETE BLOOD COUNT (02/28/2024 10:26 EST) WBC 16.63(H) 4.00 - 10.40 K/cmm 02/28/2024 11:06 [facility] RBC 3.09(L) 4.36 - 5.78 M/cmm 02/28/2024 11:06 [facility] Hemoglobin 10.3(L) 13.8 - 17.3 g/dL 02/28/2024 11:06 [facility] HCT 30.5(L) 39.5 - 50.2 % 02/28/2024 11:06 [facility] MCV 99(H) 81 - 95 fL 02/28/2024 11:06 [facility] MCH 33.3(H) 27.6 - 33.0 pg 02/28/2024 11:06 [facility] MCHC 33.8 32.8 - 36.4 g/dL 02/28/2024 11:06 [facility] RDW-CV 15.2(H) <14.2 % 02/28/2024 11:06 [facility] RDW-SD 55.3(H) <46.0 fl 02/28/2024 11:06 [facility] PLT 362 141 - 377 K/cmm 02/28/2024 11:06 [facility] MPV 10.1 9.5 - 12.7 fL 02/28/2024 11:06 [facility] Blood VENOUS BLOOD / Unknown Venipuncture / Unknown 02/28/2024 10:26 EST 02/28/2024 10:54 EST us Pushpa Welch MD HEMATOLOGY & PF4 ORDERABLES F inal Result Performing Organization Address City/[facility]/ZIP Co de Phone Number [facility] [address] [place] [address] * (ABNORMAL) BASIC METABOLIC PANEL (BMP) (02/28/2024 10:26 EST) Sodium 137 136 - 145 mmol/L 02/28/2024 11:44 [facility] Potassium 3.7 3.5 - 5.0 mmol/L 02/28/2024 11:44 [facility] Chloride 95(L) 96 - 110 mmol/L 02/28/2024 11:44 [facility] CO2 Total 38(H) 22 - 32 mmol/L 02/28/2024 11:44 [facility] Anion Gap 4(L) 5 - 14 mmol/L 02/28/2024 11:44 [facility] Glucose 127(H) 70 - 99 mg/dl 02/28/2024 11:44 [facility] Calcium 8.4(L) 8.5 - 10.5 mg/dL 02/28/2024 11:44 [facility] BUN 34(H) 10 - 26 mg/dL 02/28/2024 11:44 [facility] Creatinine 1.32(H) 0.66 - 1.25 mg/dL 02/28/2024 11:44 [facility] eGFR 53(L) >60 mL/min/1.73 m2 02/28/2024 11:44 [facility] Blood VENOUS BLOOD / Unknown Venipuncture / Unknown 02/28/2024 10:26 EST 02/28/2024 10:55 EST Pushpa Welch MD CHEMISTRY & BLOOD GAS ORDERAB LES Final Result Performing Organization Address City/[facility]/ZIP Co de Phone Number [facility] [address] [place] [address] * (ABNORMAL) NT PRO BNP (02/27/2024 15:55 EST) NT-pro BNP 1,210(H) <326 pg/mL 02/27/2024 16:57 [facility] Comment: In the acute setting NT-proBNP values <300 pg/mL have a 98% NPV for excluding acute heart failure. In outpatient populations, NT-proBNP values <125 have a 99% NPV for excluding heart failure. Blood VENOUS BLOOD / Unknown Venipuncture / Unknown 02/27/2024 15:55 EST 02/27/2024 16:02 EST us Bryan Weiss MD CHEMISTRY & BLOOD GAS ORDERABL ES Final Result [facility] [address] [place] [address] * (ABNORMAL) BASIC METABOLIC PANEL (BMP) (02/27/2024 15:55 EST) Sodium 137 136 - 145 mmol/L 02/27/2024 16:57 [facility] Potassium 4.0 3.5 - 5.0 mmol/L 02/27/2024 16:57 [facility] Chloride 94(L) 96 - 110 mmol/L 02/27/2024 16:57 [facility] CO2 Total 36(H) 22 - 32 mmol/L 02/27/2024 16:57 [facility] Anion Gap 7 5 - 14 mmol/L 02/27/2024 16:57 [facility] Glucose 184(H) 70 - 99 mg/dl 02/27/2024 16:57 [facility] Calcium 8.4(L) 8.5 - 10.5 mg/dL 02/27/2024 16:57 [facility] BUN 37(H) 10 - 26 mg/dL 02/27/2024 16:57 [facility] Creatinine 1.34(H) 0.66 - 1.25 mg/dL 02/27/2024 16:57 [facility] eGFR 52(L) >60 mL/min/1.73 m2 02/27/2024 16:57 EST [facility] Blood VENOUS BLOOD / Unknown Venipuncture / Unknown 02/27/2024 15:55 EST 02/27/2024 16:02 EST us Pushpa Welch MD CHEMISTRY & BLOOD GAS ORDERAB LES Final Result [facility] [address] [place] [address] * TRANSTHORACIC ECHO (TTE) LIMITED W/DOPPLER W/CF [...] color Doppler.The study was interpreted by [facility]. Pertinent images and [...] MD CARDIAC ECHO ORDERABLES Final Result * (ABNORMAL) COMPLETE BLOOD COUNT (02/26/2024 15:55 EST) WBC 20.40(H) 4.00 - 10.40 K/cmm 02/26/2024 16:12 EST [facility] RBC 3.15(L) 4.36 - 5.78 M/cmm 02/26/2024 16:12 EST [facility] Hemoglobin 10.3(L) 13.8 - 17.3 g/dL 02/26/2024 16:12 [facility] HCT 31.3(L) 39.5 - 50.2 % 02/26/2024 16:12 [facility] MCV 99(H) 81 - 95 fL 02/26/2024 16:12 [facility] MCH 32.7 27.6 - 33.0 pg 02/26/2024 16:12 [facility] MCHC 32.9 32.8 - 36.4 g/dL 02/26/2024 16:12 [facility] RDW-CV 15.3(H) <14.2 % 02/26/2024 16:12 [facility] RDW-SD 55.4(H) <46.0 fl 02/26/2024 16:12 [facility] PLT 311 141 - 377 K/cmm 02/26/2024 16:12 [facility] MPV 10.4 9.5 - 12.7 fL 02/26/2024 16:12 [facility] Blood VENOUS BLOOD / Unknown Venipuncture / Unknown 02/26/2024 15:55 EST 02/26/2024 16:03 EST Pushpa Welch MD HEMATOLOGY & PF4 ORDERABLES F inal Result [facility] [address] [place] [address] * (ABNORMAL) BASIC METABOLIC PANEL (BMP) (02/26/2024 15:54 EST) Sodium 137 136 - 145 mmol/L 02/26/2024 16:55 [facility] Potassium 4.6 3.5 - 5.0 mmol/L 02/26/2024 16:55 [facility] Chloride 95(L) 96 - 110 mmol/L 02/26/2024 16:55 [facility] CO2 Total 34(H) 22 - 32 mmol/L 02/26/2024 16:55 EST [facility] Anion Gap 8 5 - 14 mmol/L 02/26/2024 16:55 [facility] Glucose 159(H) 70 - 99 mg/dl 02/26/2024 16:55 [facility] Calcium 8.5 8.5 - 10.5 mg/dL 02/26/2024 16:55 [facility] BUN 40(H) 10 - 26 mg/dL 02/26/2024 16:55 [facility] Creatinine 1.23 0.66 - 1.25 mg/dL 02/26/2024 16:55 [facility] eGFR 58(L) >60 mL/min/1.73 m2 02/26/2024 16:55 [facility] Blood VENOUS BLOOD / Unknown Venipuncture / Unknown 02/26/2024 15:54 EST 02/26/2024 16:13 EST Pushpa Welch MD CHEMISTRY & BLOOD GAS ORDERAB LES Final Result [facility] [address] [place] [address] * XR CHEST PORTABLE 1 VIEW (02/26/2024 12:08 EST) Anatomical Region Laterality Modality Computed Radiogr aphy 02/26/2024 12:1 6 EST Impressions 02/26/2024 12:16 EST New right upper and lower lobe airspace opacities which may represent aspiration pneumonitis. Small right effusion. [id number] Narrative 02/26/2024 12:16 EST XR CHEST PORTABLE [...] findings: ??Normal. Bones: Normal. Resulting Agency Comment [id number] Procedure Note Karo Schmidt MD - 02/26/2024 [...] which may representaspiration pneumonitis. Small right effusion. [id number] Pushpa Welch MD IMG DIAGNOSTIC IMAGING ORDERA BLES Final Result * (ABNORMAL) BASIC METABOLIC PANEL (BMP) (02/24/2024 9:22 EST) Sodium 137 136 - 145 mmol/L 02/24/2024 10:32 [facility] Potassium 4.7 3.5 - 5.0 mmol/L 02/24/2024 10:32 [facility] Chloride 96 96 - 110 mmol/L 02/24/2024 10:32 [facility] CO2 Total 36(H) 22 - 32 mmol/L 02/24/2024 10:32 [facility] Anion Gap 5 5 - 14 mmol/L 02/24/2024 10:32 [facility] Glucose 146(H) 70 - 99 mg/dl 02/24/2024 10:32 [facility] Calcium 9.0 8.5 - 10.5 mg/dL 02/24/2024 10:32 [facility] BUN 48(H) 10 - 26 mg/dL 02/24/2024 10:32 [facility] Creatinine 1.04 0.66 - 1.25 mg/dL 02/24/2024 10:32 [facility] eGFR 70 >60 mL/min/1.73 m2 02/24/2024 10:32 [facility] Blood VENOUS BLOOD / Unknown Venipuncture / Unknown 02/24/2024 9:22 EST 02/24/2024 9:55 EST us Marcos Quintero MD CHEMISTRY & BLOOD GAS ORD ERABLES Final Result [facility] [address], [place] [id number] * (ABNORMAL) COMPLETE BLOOD COUNT (02/24/2024 9:22 EST) WBC 22.32(H) 4.00 - 10.40 K/cmm 02/24/2024 10:08 [facility] RBC 3.54(L) 4.36 - 5.78 M/cmm 02/24/2024 10:08 [facility] Hemoglobin 11.6(L) 13.8 - 17.3 g/dL 02/24/2024 10:08 [facility] HCT 34.4(L) 39.5 - 50.2 % 02/24/2024 10:08 [facility] MCV 97(H) 81 - 95 fL 02/24/2024 10:08 [facility] MCH 32.8 27.6 - 33.0 pg 02/24/2024 10:08 [facility] MCHC 33.7 32.8 - 36.4 g/dL 02/24/2024 10:08 [facility] RDW-CV 15.0(H) <14.2 % 02/24/2024 10:08 [facility] RDW-SD 53.6(H) <46.0 fl 02/24/2024 10:08 [facility] PLT 311 141 - 377 K/cmm 02/24/2024 10:08 [facility] MPV 10.6 9.5 - 12.7 fL 02/24/2024 10:08 [facility] Blood VENOUS BLOOD / Unknown Venipuncture / Unknown 02/24/2024 9:22 EST 02/24/2024 9:54 EST us Pete Miller DO HEMATOLOGY & PF4 ORDERABLES Saadia l Result [facility] [address] [place] [address] * (ABNORMAL) BASIC METABOLIC PANEL (BMP) (02/23/2024 12:04 EST) Sodium 138 136 - 145 mmol/L 02/23/2024 12:39 [facility] Potassium 4.6 3.5 - 5.0 mmol/L 02/23/2024 12:39 [facility] Chloride 95(L) 96 - 110 mmol/L 02/23/2024 12:39 [facility] CO2 Total 39(H) 22 - 32 mmol/L 02/23/2024 12:39 [facility] Anion Gap 4(L) 5 - 14 mmol/L 02/23/2024 12:39 [facility] Glucose 223(H) 70 - 99 mg/dl 02/23/2024 12:39 [facility] Calcium 8.7 8.5 - 10.5 mg/dL 02/23/2024 12:39 [facility] BUN 51(H) 10 - 26 mg/dL 02/23/2024 12:39 [facility] Creatinine 1.10 0.66 - 1.25 mg/dL 02/23/2024 12:39 [facility] eGFR 66 >60 mL/min/1.73 m2 02/23/2024 12:39 [facility] Blood VENOUS BLOOD / Unknown Venipuncture / Unknown 02/23/2024 12:04 EST 02/23/2024 12:09 EST us Marcos Quintero MD CHEMISTRY & BLOOD GAS ORD ERABLES Final Result [facility] [address] [place] [address] * (ABNORMAL) COMPLETE BLOOD COUNT (02/23/2024 12:04 EST) WBC 19.09(H) 4.00 - 10.40 K/cmm 02/23/2024 13:21 [facility] RBC 3.57(L) 4.36 - 5.78 M/cmm 02/23/2024 13:21 [facility] Hemoglobin 11.6(L) 13.8 - 17.3 g/dL 02/23/2024 13:21 [facility] HCT 35.4(L) 39.5 - 50.2 % 02/23/2024 13:21 [facility] MCV 99(H) 81 - 95 fL 02/23/2024 13:21 [facility] MCH 32.5 27.6 - 33.0 pg 02/23/2024 13:21 [facility] MCHC 32.8 32.8 - 36.4 g/dL 02/23/2024 13:21 [facility] RDW-CV 15.0(H) <14.2 % 02/23/2024 13:21 [facility] RDW-SD 54.0(H) <46.0 fl 02/23/2024 13:21 [facility] PLT 274 141 - 377 K/cmm 02/23/2024 13:21 [facility] MPV 10.9 9.5 - 12.7 fL 02/23/2024 13:21 [facility] Blood VENOUS BLOOD / Unknown Venipuncture / Unknown 02/23/2024 12:04 EST 02/23/2024 13:13 EST us Pete Miller DO HEMATOLOGY & PF4 ORDERABLES Saadia loaiza Result [facility] [address], [place] [id number] * (ABNORMAL) BASIC METABOLIC PANEL (BMP) (02/22/2024 11:01 EST) Sodium 138 136 - 145 mmol/L 02/22/2024 12:27 [facility] Potassium 4.5 3.5 - 5.0 mmol/L 02/22/2024 12:27 [facility] Chloride 95(L) 96 - 110 mmol/L 02/22/2024 12:27 [facility] CO2 Total 37(H) 22 - 32 mmol/L 02/22/2024 12:27 [facility] Anion Gap 6 5 - 14 mmol/L 02/22/2024 12:27 [facility] Glucose 208(H) 70 - 99 mg/dl 02/22/2024 12:27 [facility] Calcium 9.0 8.5 - 10.5 mg/dL 02/22/2024 12:27 [facility] BUN 56(H) 10 - 26 mg/dL 02/22/2024 12:27 [facility] Creatinine 1.27(H) 0.66 - 1.25 mg/dL 02/22/2024 12:27 [facility] eGFR 55(L) >60 mL/min/1.73 m2 02/22/2024 12:27 [facility] Blood VENOUS BLOOD / Unknown Venipuncture / Unknown 02/22/2024 11:01 EST 02/22/2024 11:40 EST Marcos Quintero MD CHEMISTRY & BLOOD GAS ORD ERABLES Final Result [facility] [address] [place] [address] * (ABNORMAL) COMPLETE BLOOD COUNT (02/22/2024 11:01 EST) WBC 22.75(H) 4.00 - 10.40 K/cmm 02/22/2024 11:45 [facility] RBC 3.52(L) 4.36 - 5.78 M/cmm 02/22/2024 11:45 [facility] Hemoglobin 11.7(L) 13.8 - 17.3 g/dL 02/22/2024 11:45 [facility] HCT 34.6(L) 39.5 - 50.2 % 02/22/2024 11:45 [facility] MCV 98(H) 81 - 95 fL 02/22/2024 11:45 [facility] MCH 33.2(H) 27.6 - 33.0 pg 02/22/2024 11:45 [facility] MCHC 33.8 32.8 - 36.4 g/dL 02/22/2024 11:45 [facility] RDW-CV 15.1(H) <14.2 % 02/22/2024 11:45 [facility] RDW-SD 54.9(H) <46.0 fl 02/22/2024 11:45 [facility] PLT 270 141 - 377 K/cmm 02/22/2024 11:45 [facility] MPV 10.8 9.5 - 12.7 fL 02/22/2024 11:45 [facility] Blood VENOUS BLOOD / Unknown Venipuncture / Unknown 02/22/2024 11:01 EST 02/22/2024 11:37 EST us Pete Miller DO HEMATOLOGY & PF4 ORDERABLES Saadia l Result Performing Organization Address City/State/[facility] Co de Phone Number [facility] [address] [place] [address] * (ABNORMAL) BASIC METABOLIC PANEL (BMP) (02/21/2024 9:58 EST) Sodium 138 136 - 145 mmol/L 02/21/2024 11:42 [facility] Potassium 4.1 3.5 - 5.0 mmol/L 02/21/2024 11:42 [facility] Chloride 95(L) 96 - 110 mmol/L 02/21/2024 11:42 [facility] CO2 Total 34(H) 22 - 32 mmol/L 02/21/2024 11:42 [facility] Anion Gap 9 5 - 14 mmol/L 02/21/2024 11:42 [facility] Glucose 190(H) 70 - 99 mg/dl 02/21/2024 11:42 [facility] Calcium 8.5 8.5 - 10.5 mg/dL 02/21/2024 11:42 [facility] BUN 54(H) 10 - 26 mg/dL 02/21/2024 11:42 [facility] Creatinine 1.38(H) 0.66 - 1.25 mg/dL 02/21/2024 11:42 [facility] eGFR 50(L) >60 mL/min/1.73 m2 02/21/2024 11:42 [facility] Blood VENOUS BLOOD / Unknown Venipuncture / Unknown 02/21/2024 9:58 EST 02/21/2024 11:04 EST us Marcos Quintero MD CHEMISTRY & BLOOD GAS ORD ERABLES Final Result [facility] [address] [place] [address] * (ABNORMAL) COMPLETE BLOOD COUNT (02/21/2024 9:58 EST) WBC 15.67(H) 4.00 - 10.40 K/cmm 02/21/2024 11:02 [facility] RBC 3.25(L) 4.36 - 5.78 M/cmm 02/21/2024 11:02 [facility] Hemoglobin 10.6(L) 13.8 - 17.3 g/dL 02/21/2024 11:02 [facility] HCT 31.7(L) 39.5 - 50.2 % 02/21/2024 11:02 [facility] MCV 98(H) 81 - 95 fL 02/21/2024 11:02 [facility] MCH 32.6 27.6 - 33.0 pg 02/21/2024 11:02 [facility] MCHC 33.4 32.8 - 36.4 g/dL 02/21/2024 11:02 [facility] RDW-CV 15.0(H) <14.2 % 02/21/2024 11:02 [facility] RDW-SD 54.0(H) <46.0 fl 02/21/2024 11:02 [facility] PLT 196 141 - 377 K/cmm 02/21/2024 11:02 [facility] MPV 10.7 9.5 - 12.7 fL 02/21/2024 11:02 [facility] Blood VENOUS BLOOD / Unknown Venipuncture / Unknown 02/21/2024 9:58 EST 02/21/2024 10:49 EST us Pete Miller DO HEMATOLOGY & PF4 ORDERABLES Saadia l Result Performing Organization Address City/State/[facility] Co de Phone Number [facility] [address], [place] [id number] * (ABNORMAL) BASIC METABOLIC PANEL (BMP) (02/20/2024 10:07 EST) Sodium 141 136 - 145 mmol/L 02/20/2024 11:58 [facility] Potassium 4.0 3.5 - 5.0 mmol/L 02/20/2024 11:58 [facility] Chloride 96 96 - 110 mmol/L 02/20/2024 11:58 [facility] CO2 Total 35(H) 22 - 32 mmol/L 02/20/2024 11:58 [facility] Anion Gap 10 5 - 14 mmol/L 02/20/2024 11:58 [facility] Glucose 106(H) 70 - 99 mg/dl 02/20/2024 11:58 [facility] Calcium 8.5 8.5 - 10.5 mg/dL 02/20/2024 11:58 [facility] BUN 64(H) 10 - 26 mg/dL 02/20/2024 11:58 [facility] Creatinine 2.00(H) 0.66 - 1.25 mg/dL 02/20/2024 11:58 [facility] eGFR 32(L) >60 mL/min/1.73 m2 02/20/2024 11:58 [facility] Blood VENOUS BLOOD / Unknown Venipuncture / Unknown 02/20/2024 10:07 EST 02/20/2024 11:15 EST us Marcos Quintero MD CHEMISTRY & BLOOD GAS ORD ERABLES Final Result [facility] [address] [place] [address] * (ABNORMAL) COMPLETE BLOOD COUNT (02/20/2024 10:07 EST) WBC 14.61(H) 4.00 - 10.40 K/cmm 02/20/2024 11:28 [facility] RBC 3.36(L) 4.36 - 5.78 M/cmm 02/20/2024 11:28 [facility] Hemoglobin 11.0(L) 13.8 - 17.3 g/dL 02/20/2024 11:28 [facility] HCT 32.8(L) 39.5 - 50.2 % 02/20/2024 11:28 [facility] MCV 98(H) 81 - 95 fL 02/20/2024 11:28 [facility] MCH 32.7 27.6 - 33.0 pg 02/20/2024 11:28 [facility] MCHC 33.5 32.8 - 36.4 g/dL 02/20/2024 11:28 [facility] RDW-CV 15.2(H) <14.2 % 02/20/2024 11:28 [facility] RDW-SD 54.4(H) <46.0 fl 02/20/2024 11:28 [facility] PLT 167 141 - 377 K/cmm 02/20/2024 11:28 [facility] MPV 11.7 9.5 - 12.7 fL 02/20/2024 11:28 [facility] Blood VENOUS BLOOD / Unknown Venipuncture / Unknown 02/20/2024 10:07 EST 02/20/2024 11:13 EST Pete Miller DO HEMATOLOGY & PF4 ORDERABLES Saadia l Result [facility] [address] [place] [address] * MRSA PCR (02/20/2024 5:04 EST) Pathologist [facility] MRSA/Staph aureus Result No Staphylococcus aureus detected by PCR 02/20/2024 13:18 [facility] Swab BOTH ANTERIOR NARES / Unknown Swab / Unknown 02/20/2024 5:04 EST 02/20/2024 7:15 EST Pete Miller DO MICROBIOLOGY - GENERAL ORDERABLE S Final Result Performing Organization Address City/[facility]/ZIP Co de Phone Number [facility] [address] [place] [address] * (ABNORMAL) BASIC METABOLIC PANEL (BMP) (02/19/2024 11:27 EST) Sodium 136 136 - 145 mmol/L 02/19/2024 12:28 [facility] Potassium 4.7 3.5 - 5.0 mmol/L 02/19/2024 12:28 [facility] Chloride 96 96 - 110 mmol/L 02/19/2024 12:28 [facility] CO2 Total 35(H) 22 - 32 mmol/L 02/19/2024 12:28 [facility] Anion Gap 5 5 - 14 mmol/L 02/19/2024 12:28 [facility] Glucose 149(H) 70 - 99 mg/dl 02/19/2024 12:28 [facility] Calcium 8.4(L) 8.5 - 10.5 mg/dL 02/19/2024 12:28 [facility] BUN 70(H) 10 - 26 mg/dL 02/19/2024 12:28 [facility] Creatinine 1.86(H) 0.66 - 1.25 mg/dL 02/19/2024 12:28 [facility] eGFR 35(L) >60 mL/min/1.73 m2 02/19/2024 12:28 [facility] Blood VENOUS BLOOD / Unknown Venipuncture / Unknown 02/19/2024 11:27 EST 02/19/2024 11:49 EST us Marcos Quintero MD CHEMISTRY & BLOOD GAS ORD ERABLES Final Result [facility] [address] [place], [place] [id number] * (ABNORMAL) COMPLETE BLOOD COUNT (02/19/2024 11:27 EST) WBC 12.57(H) 4.00 - 10.40 K/cmm 02/19/2024 12:00 [facility] RBC 3.51(L) 4.36 - 5.78 M/cmm 02/19/2024 12:00 [facility] Hemoglobin 11.5(L) 13.8 - 17.3 g/dL 02/19/2024 12:00 [facility] HCT 33.2(L) 39.5 - 50.2 % 02/19/2024 12:00 [facility] MCV 95 81 - 95 fL 02/19/2024 12:00 [facility] MCH 32.8 27.6 - 33.0 pg 02/19/2024 12:00 [facility] MCHC 34.6 32.8 - 36.4 g/dL 02/19/2024 12:00 [facility] RDW-CV 15.2(H) <14.2 % 02/19/2024 12:00 EST [facility] RDW-SD 52.4(H) <46.0 fl 02/19/2024 12:00 EST [facility] PLT 148 141 - 377 K/cmm 02/19/2024 12:00 EST [facility] MPV 11.6 9.5 - 12.7 fL 02/19/2024 12:00 EST [facility] Blood VENOUS BLOOD / Unknown Venipuncture / Unknown 02/19/2024 11:27 EST 02/19/2024 11:48 EST us Pete Miller DO HEMATOLOGY & PF4 ORDERABLES Saadia loaiza Result [facility] [address] [place] [address] * XR CHEST PORTABLE 1 VIEW (02/18/2024 15:38 EST) Anatomical Region Laterality Modality Computed Radiogr aphy 02/18/2024 15:4 8 EST Impressions 02/18/2024 15:48 EST Bilateral small pleural effusions and bibasilar opacities compatible with atelectasis. [id number] Narrative 02/18/2024 15:48 EST XR CHEST PORTABLE 1 VIEW ??02/18/2024 3:24 PM Clinical History/comments: hypoxia Comparison: 02/16/2024. Technique: Single portable AP view of the chest. Findings: Lines/tubes/devices: ??None Lungs: Left greater than right basilar opacities Pleura: Bilateral pleural effusions Cardiac and mediastinal contours: Stable Soft tissues and extrathoracic findings: No acute abnormalities Bones: No acute abnormalities Resulting Agency Comment [id number] Procedure Note Gordo Palm MD - 02/18/2024 [...] pleural effusions and bibasilar opacities compatible withatelectasis. [id number] Marcos Quintero MD IMG DIAGNOSTIC IMAGING OR DERABLES Final Result * VITAMIN D (25,OH) (02/18/2024 6:28 EST) 25OH Vitamin D Tot 38 30 - 100 ng/mL 02/19/2024 10:50 EST [facility] Comment: Vitamin D 25,OH Interpretive Ranges: Deficiency: ??<10.0 ng/mL Insufficiency: ??10.0 - 30.0 ng/mL Sufficiency: ??30.0 - 100.0 ng/mL Toxicity: ??>100.0 ng/mL Blood VENOUS BLOOD / Unknown Venipuncture / Unknown 02/18/2024 6:28 EST 02/18/2024 6:38 EST Marcos Quintero MD CHEMISTRY & BLOOD GAS ORD ERABLES Final Result [facility] [address] [place] [address] * (ABNORMAL) COMPREHENSIVE METABOLIC PANEL (CMP) (02/18/2024 6:28 EST) Sodium 134(L) 136 - 145 mmol/L 02/18/2024 7:09 EST [facility] Potassium 4.5 3.5 - 5.0 mmol/L 02/18/2024 7:09 [facility] Chloride 97 96 - 110 mmol/L 02/18/2024 7:09 [facility] CO2 Total 36(H) 22 - 32 mmol/L 02/18/2024 7:09 [facility] Glucose 110(H) 70 - 99 mg/dl 02/18/2024 7:09 [facility] BUN 70(H) 10 - 26 mg/dL 02/18/2024 7:09 [facility] Creatinine 2.11(H) 0.66 - 1.25 mg/dL 02/18/2024 7:09 [facility] eGFR 30(L) >60 mL/min/1.7 3m2 02/18/2024 7:09 [facility] Total Protein 5.0(L) 6.3 - 8.2 g/dL 02/18/2024 7:09 [facility] Albumin 2.7(L) 3.4 - 4.9 g/dL 02/18/2024 7:09 [facility] Alkaline Phosphatase 80 38 - 126 U/L 02/18/2024 7:09 [facility] AST 33 15 - 46 U/L 02/18/2024 7:09 [facility] ALT 36 <50 U/L 02/18/2024 7:09 [facility] Bilirubin, Total <0.5 <1.4 mg/dL 02/18/20 7:09 [facility] Calcium 8.2(L) 8.5 - 10.5 mg/dL 02/18/2024 7:09 [facility] Albumin/Globulin Ratio 1.2 1.0 - 2.5 02/18/2024 7:09 [facility] Anion Gap 1(L) 5 - 14 mmol/L 02/18/2024 7:09 [facility] Blood VENOUS BLOOD / Unknown Venipuncture / Unknown 02/18/2024 6:28 EST 02/18/2024 6:38 EST us Pete Miller DO CHEMISTRY & BLOOD GAS ORDERABLES Final Result [facility] [address] [place] [address] * (ABNORMAL) COMPLETE BLOOD COUNT (02/18/2024 6:28 EST) WBC 13.90(H) 4.00 - 10.40 K/cmm 02/18/2024 6:45 [facility] RBC 3.41(L) 4.36 - 5.78 M/cmm 02/18/2024 6:45 [facility] Hemoglobin 11.0(L) 13.8 - 17.3 g/dL 02/18/2024 6:45 [facility] HCT 32.3(L) 39.5 - 50.2 % 02/18/2024 6:45 [facility] MCV 95 81 - 95 fL 02/18/2024 6:45 [facility] MCH 32.3 27.6 - 33.0 pg 02/18/2024 6:45 [facility] MCHC 34.1 32.8 - 36.4 g/dL 02/18/2024 6:45 [facility] RDW-CV 14.9(H) <14.2 % 02/18/2024 6:45 [facility] RDW-SD 51.8(H) <46.0 fl 02/18/2024 6:45 [facility] PLT 125(L) 141 - 377 K/cmm 02/18/2024 6:45 [facility] MPV 11.0 9.5 - 12.7 fL 02/18/2024 6:45 [facility] Blood VENOUS BLOOD / Unknown Venipuncture / Unknown 02/18/2024 6:28 EST 02/18/2024 6:32 EST us Pete Miller DO HEMATOLOGY & PF4 ORDERABLES Saadia l Result [facility] [address] [place] [address] * POCT GLUCOSE, INTERFACED (02/17/2024 17:48 EST) Glucose, POC 84 70 - 100 mg/dL 02/17/2024 17:49 [facility] HN LAB POC COMMENT (GLUCOSE) Test Performed by Nursing Services 02/17/2024 17:49 EST [facility] Blood CAPILLARY BLOOD / Unknown 02/17/2024 17:48 EST 02/17/2024 17:49 EST us Pete Bourbon DO POINT OF CARE TEST ORDERABLES Fi nal Result [facility] [address], [place] [id number] * XR HIP RIGHT 1 VIEW (02/17/2024 15:20 EST) Anatomical Region Laterality Modality Lower Extremities Right Computed Radio graphy 02/17/2024 16:1 3 EST Impressions 02/17/2024 16:13 EST FINDINGS/IMPRESSION: 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 No periprosthetic fracture is seen. No acute left hip abnormality is seen. Atherosclerotic calcifications are present bilaterally. [id number] Narrative 02/17/2024 16:13 EST XR HIP RIGHT [...] abnormality is seen. Atherosclerotic calcifications arepresent bilaterally. [id number] us Augustine Ceja MD IMG DIAGNOSTIC IMAGING [...] is seen. Atherosclerotic calcifications are present bilaterally. [id number] Narrative 02/17/2024 16:13 EST XR HIP RIGHT [...] of the lower pelvis. Resulting Agency Comment [id number] Procedure Note Gordo Palm MD - 02/17/2024 [...] abnormality is seen. Atherosclerotic calcifications arepresent bilaterally. [id number] Augustine Ceja MD [facility] DIAGNOSTIC IMAGING OR DERABLES Final Result * PROTIME (02/17/2024 11:41 EST) I.N.R. 1.0 0.9 - 1.1 Ratio 02/17/2024 12:08 EST [facility] Pro Time 11.2 9.7 - 12.8 secs 02/17/2024 12:08 EST [facility] Blood VENOUS BLOOD / Unknown Venipuncture / Unknown 02/17/2024 11:41 EST 02/17/2024 11:50 EST Narrative [facility] - 02/17/2024 12:08 EST Moderate Intensity Coumadin INR = 2.0-3.0 Adjustments in anticoagulant therapy dose should be based on the INR and NOT on the Protime. us Jason Morse MD HEMATOLOGY & PF4 ORDERABLES Final Result Performing Organization Address City/[facility]/ZIP Co de Phone Number [facility] [address] [place] [address] * MAGNESIUM (02/17/2024 5:58 EST) [facility] Magnesium 2.1 1.7 - 2.8 mg/dL 02/17/2024 7:11 EST [facility] Blood VENOUS BLOOD / Unknown Venipuncture / Unknown 02/17/2024 5:58 EST 02/17/2024 6:07 EST Marti Horn MD CHEMISTRY & BLOOD GAS ORDERABLES Final Result Performing Organization Address [facility] Co de Phone Number [facility] [address] [place] [phone] * (ABNORMAL) COMPREHENSIVE METABOLIC PANEL (CMP) (02/17/2024 5:58 EST) Sodium 134(L) 136 - 145 mmol/L 02/17/2024 6:18 [facility] Potassium 4.4 3.5 - 5.0 mmol/L 02/17/2024 6:18 [facility] Chloride 100 96 - 110 mmol/L 02/17/2024 6:18 [facility] CO2 Total 30 22 - 32 mmol/L 02/17/2024 6:18 [facility] Glucose 108(H) 70 - 99 mg/dl 02/17/2024 6:18 [facility] [facility] BUN 69(H) 10 - 26 mg/dL 02/17/2024 6:18 [facility] Creatinine 2.08(H) 0.66 - 1.25 mg/dL 02/17/2024 6:18 [facility] eGFR 31(L) >60 mL/min/1.7 3m2 02/17/2024 6:18 [facility] Total Protein 5.2(L) 6.3 - 8.2 g/dL 02/17/2024 6:18 [facility] Albumin 2.8(L) 3.4 - 4.9 g/dL 02/17/2024 6:18 [facility] Alkaline Phosphatase 83 38 - 126 U/L 02/17/2024 6:18 [facility] AST 36 15 - 46 U/L 02/17/2024 6:18 [facility] ALT 49 <50 U/L 02/17/2024 6:18 [facility] Bilirubin, Total 0.5 <1.4 mg/dL 02/17/20 6:18 [facility] Calcium 8.7 8.5 - 10.5 mg/dL 02/17/2024 6:18 [facility] Albumin/Globulin Ratio 1.2 1.0 - 2.5 02/17/2024 6:18 [facility] Anion Gap 4(L) 5 - 14 mmol/L 02/17/2024 6:18 [facility] Blood VENOUS BLOOD / Unknown Venipuncture / Unknown 02/17/2024 5:58 EST 02/17/2024 6:07 EST us Pete Miller DO CHEMISTRY & BLOOD GAS ORDERABLES Final Result [facility] [address] [place] [address] * (ABNORMAL) COMPLETE BLOOD COUNT (02/17/2024 5:58 EST) WBC 16.70(H) 4.00 - 10.40 K/cmm 02/17/2024 6:16 [facility] RBC 3.66(L) 4.36 - 5.78 M/cmm 02/17/2024 6:16 [facility] Hemoglobin 11.7(L) 13.8 - 17.3 g/dL 02/17/2024 6:16 [facility] HCT 33.7(L) 39.5 - 50.2 % 02/17/2024 6:16 [facility] MCV 92 81 - 95 fL 02/17/2024 6:16 [facility] MCH 32.0 27.6 - 33.0 pg 02/17/2024 6:16 [facility] MCHC 34.7 32.8 - 36.4 g/dL 02/17/2024 6:16 [facility] RDW-CV 14.7(H) <14.2 % 02/17/2024 6:16 [facility] RDW-SD 49.7(H) <46.0 fl 02/17/2024 6:16 [facility] PLT 128(L) 141 - 377 K/cmm 02/17/2024 6:16 [facility] MPV 10.6 9.5 - 12.7 fL 02/17/2024 6:16 [facility] Blood VENOUS BLOOD / Unknown Venipuncture / Unknown 02/17/2024 5:58 EST 02/17/2024 6:04 EST us Pete Miller DO HEMATOLOGY & PF4 ORDERABLES Saadia l Result [facility] [address] [place] [address] * (ABNORMAL) POCT GLUCOSE, INTERFACED (02/17/2024 5:58 EST) Glucose, POC 114(H) 70 - 100 mg/dL 02/17/2024 5:59 [facility] HN LAB POC COMMENT (GLUCOSE) Test Performed by Nursing Services 02/17/2024 5:59 [facility] Blood CAPILLARY BLOOD / Unknown 02/17/2024 5:58 EST 02/17/2024 5:59 EST us Pete Miller DO POINT OF CARE TEST ORDERABLES Fi nal Result Performing Organization Address [facility]/ZIP Co de Phone Number [facility] [address] [place] [address] * MRSA PCR (02/17/2024 5:53 EST) Pathologist [facility] MRSA/Staph aureus Result No Staphylococcus aureus detected by PCR 02/17/2024 10:53 EST [facility] Swab BOTH ANTERIOR NARES / Unknown Swab / Unknown 02/17/2024 5:53 EST 02/17/2024 7:50 EST us Pete Miller DO MICROBIOLOGY - GENERAL ORDERABLE S Final Result Performing Organization Address [facility] Co de Phone Number [facility] [address] [place] [phone] * (ABNORMAL) POCT GLUCOSE, INTERFACED (02/16/2024 23:45 EST) Pathologist [facility] Glucose, POC 149(H) 70 - 100 mg/dL 02/16/2024 23:48 EST [facility] HN LAB POC COMMENT (GLUCOSE) Test Performed by Nursing Services 02/16/2024 23:48 EST [facility] Blood CAPILLARY BLOOD / Unknown 02/16/2024 23:45 EST 02/16/2024 23:48 EST us Pete Miller DO POINT OF CARE TEST ORDERABLES Fi nal Result Performing Organization Address [facility]/ZIP Co de Phone Number [facility] [address] [place] [address] * TYPE AND SCREEN (02/16/2024 20:00 EST) ABO O 02/16/2024 21:54 EST [facility] Rh Factor Positive 02/16/2024 21:54 EST [facility] Antibody Screen Negative 02/16/2024 21:54 EST [facility] Specimen Expires: 02/19/2024 @ 23:59 02/16/2024 21:54 EST [facility] Blood VENOUS BLOOD / Unknown Venipuncture / Unknown 02/16/2024 20:00 EST 02/16/2024 20:09 EST us Ritesh Cardenas MD BLOOD BANK TESTS Edited Resul t - Final [facility] [address] [facility] [place] [address] * CT ANGIO CHEST PE PROTOCOL (02/16/2024 [...] above interpretation and agree with the findings. [id number] Narrative 02/17/2024 10:[address] ANGIO CHEST [...] lesions. Multilevel degenerative changes. Resulting Agency Comment [id number] Procedure Note Sonia Salazar MD - 02/17/2024 [...] the above interpretation andagree with the findings. [id number] Pete Miller DO IMG CT ORDERABLES Final Result * XR HIP RIGHT 1 VIEW (02/16/2024 17:54 EST) Anatomical Region Laterality Modality Lower Extremities Right Computed Radio graphy 02/16/2024 18:2 7 EST Impressions 02/16/2024 18:27 EST Findings/impression: Redemonstrated right femoral neck fracture, not significantly changed. No left- sided hip fracture or dislocation. Mild degenerative changes of the left hip. The soft tissues are unremarkable. [id number] Narrative 02/16/2024 18:27 EST XR HIP LEFT 2-3 VIEWS OPTIONAL PELVIS, XR HIP RIGHT 1 VIEW ??02/16/2024 5:52 PM Signs and Symptoms/Comments: right hip pain Comparison: Pelvic x-ray 02/15/2024. Technique: AP orthopedic view of the pelvis which includes an AP view of both hips, with additional AP view of the left hip. Resulting Agency Comment [id number] Procedure Note Sonia Salazar MD - 02/16/2024 [...] theleft hip. The soft tissues are unremarkable. [id number] Ritesh Cardenas MD [facility] DIAGNOSTIC IMAGING ORDERA BLES Final Result * XR HIP LEFT 2-3 VIEWS OPTIONAL PELVIS (02/16/2024 17:52 EST) Anatomical Region Laterality Modality Lower Extremities Left Computed Radio graphy 02/16/2024 18:2 7 EST Impressions 02/16/2024 18:27 EST Findings/impression: Redemonstrated right femoral neck fracture, not significantly changed. No left- sided hip fracture or dislocation. Mild degenerative changes of the left hip. The soft tissues are unremarkable. [id number] Narrative 02/16/2024 18:27 EST XR HIP LEFT [...] theleft hip. The soft tissues are unremarkable. [id number] us Ritesh Cardenas MD IMG DIAGNOSTIC IMAGING ORDERA BLES Final Result * PROTIME (02/16/2024 17:00 EST) I.N.R. 1.0 0.9 - 1.1 Ratio 02/16/2024 18:17 EST [facility] Pro Time 11.3 9.7 - 12.8 secs 02/16/2024 18:17 EST [facility] Blood VENOUS BLOOD / Unknown Venipuncture / Unknown 02/16/2024 17:00 EST 02/16/2024 17:30 EST Narrative [facility] - 02/16/2024 18:17 EST Moderate Intensity Coumadin INR = 2.0-3.0 Adjustments in anticoagulant therapy dose should be based on the INR and NOT on the Protime. Ritesh Cardenas MD HEMATOLOGY & PF4 ORDERABLES F inal Result Performing Organization Address [facility] de Phone Number [facility] [address] [place] [address] * (ABNORMAL) PTT (02/16/2024 17:00 EST) PTT 20(L) 26 - 37 secs 02/16/2024 18:17 EST [facility] Blood VENOUS BLOOD / Unknown Venipuncture / Unknown 02/16/2024 17:00 EST 02/16/2024 17:30 EST Ritesh Cardenas MD HEMATOLOGY & PF4 ORDERABLES F inal Result Performing Organization Address [facility] de Phone Number [facility] [address] [place] [address] * (ABNORMAL) HEMOGLOBIN A1C (02/16/2024 17:00 EST) Hemoglobin A1c 6.1(H) <5.7 % 02/16/2024 21:15 [facility] Comment: Glycemic Status References: Normal: ??<5.7% Pre-Diabetes: ??5.7% - 6.4% Diagnostic of Diabetes: ??> or = 6.5% (if confirmed) Est Avg Glucose 128 mg/dL 21:15 [facility] Comment:The eAG represents t he A1c result expressed as average glucose in mg/dL. Blood VENOUS BLOOD / Unknown Venipuncture / Unknown 02/16/2024 17:00 EST 02/16/2024 17:16 EST Pete Miller DO CHEMISTRY & BLOOD GAS ORDERABLES Final Result Performing Organization Address [facility] de Phone Number [facility] [address] [place] [address] * (ABNORMAL) COMPREHENSIVE METABOLIC PANEL (CMP) (02/16/2024 17:00 [facility]) Sodium 140 136 - 145 mmol/L 02/16/2024 17:35 [facility] Potassium 5.2(H) 3.5 - 5.0 mmol/L 02/16/2024 17:35 [facility] Chloride 97 96 - 110 mmol/L 02/16/2024 17:35 [facility] CO2 Total 36(H) 22 - 32 mmol/L 02/16/2024 17:35 [facility] Glucose 179(H) 70 - 99 mg/dl 02/16/2024 17:35 [facility] BUN 70(H) 10 - 26 mg/dL 02/16/2024 17:35 [facility] Creatinine 2.54(H) 0.66 - 1.25 mg/dL 02/16/2024 17:35 [facility] eGFR 24(L) >60 mL/min/1.7 3m2 02/16/2024 17:35 [facility] Total Protein 5.4(L) 6.3 - 8.2 g/dL 02/16/2024 17:35 [facility] Albumin 3.0(L) 3.4 - 4.9 g/dL 02/16/2024 17:35 [facility] Alkaline Phosphatase 104 38 - 126 U/L 02/16/2024 17:35 [facility] AST 32 15 - 46 U/L 02/16/2024 17:35 [facility] ALT 50(H) <50 U/L 02/16/2024 17:35 [facility] Bilirubin, Total 0.6 <1.4 mg/dL 02/16/20 17:35 [facility] Calcium 9.1 8.5 - 10.5 mg/dL 02/16/2024 17:35 [facility] Albumin/Globulin Ratio 1.3 1.0 - 2.5 02/16/2024 17:35 [facility] Anion Gap 7 5 - 14 mmol/L 02/16/2024 17:35 [facility] Blood VENOUS BLOOD / Unknown Venipuncture / Unknown 02/16/2024 17:00 EST 02/16/2024 17:15 EST us Pete Miller DO CHEMISTRY & BLOOD GAS ORDERABLES Final Result [facility] [address], [place] [id number] * (ABNORMAL) COMPLETE BLOOD COUNT (02/16/2024 17:00 EST) WBC 19.76(H) 4.00 - 10.40 K/cmm 02/16/2024 17:38 [facility] RBC 3.85(L) 4.36 - 5.78 M/cmm 02/16/2024 17:38 [facility] Hemoglobin 12.5(L) 13.8 - 17.3 g/dL 02/16/2024 17:38 [facility] HCT 37.3(L) 39.5 - 50.2 % 02/16/2024 17:38 [facility] MCV 97(H) 81 - 95 fL 02/16/2024 17:38 [facility] MCH 32.5 27.6 - 33.0 pg 02/16/2024 17:38 [facility] MCHC 33.5 32.8 - 36.4 g/dL 02/16/2024 17:38 [facility] RDW-CV 14.8(H) <14.2 % 02/16/2024 17:38 [facility] RDW-SD 53.3(H) <46.0 fl 02/16/2024 17:38 [facility] PLT 130(L) 141 - 377 K/cmm 02/16/2024 17:38 [facility] MPV 11.4 9.5 - 12.7 fL 02/16/2024 17:38 EST [facility] Blood VENOUS BLOOD / Unknown Venipuncture / Unknown 02/16/2024 17:00 EST 02/16/2024 17:16 EST Pete Miller DO HEMATOLOGY & PF4 ORDERABLES Saadia l Result Performing Organization Address [facility]/ZIP Co de Phone Number [facility] [address] [place] [address] * (ABNORMAL) PROCALCITONIN (02/16/2024 17:00 EST) Procalcitonin 0.96(H) See Note ng/mL 02/16/2024 18:25 EST [facility] Comment: NOTE: Reference Range: <0.5 ng/mL - Low risk of severe sepsis >2.0 ng/mL - High risk of severe sepsis Blood VENOUS BLOOD / Unknown Venipuncture / Unknown 02/16/2024 17:00 EST 02/16/2024 17:15 EST Pete Miller DO CHEMISTRY & BLOOD GAS ORDERABLES Final Result Performing Organization Address [facility] Co de Phone Number [facility] [address] [place] [phone] * HEPARIN LEVEL - UNFRACTIONATED HEPARIN (02/16/2024 17:00 EST) Heparin Level-UFH 0.05 Therapeutic Range: 0.30 - 0.70 IU/mL 02/16/2024 18:22 EST [facility] Comment:Unfractionated hepar in therapeutic range [...] Unknown 02/16/2024 17:00 EST 02/16/2024 17:30 EST Pete Miller DO HEMATOLOGY & PF4 ORDERABLES Saadai l Result Performing Organization Address [facility] Co de Phone Number [facility] [address] [place] [address] * (ABNORMAL) POCT GLUCOSE, INTERFACED (02/16/2024 16:59 EST) Glucose, POC 177(H) 70 - 100 mg/dL 02/16/2024 17:00 EST [facility] HN LAB POC COMMENT (GLUCOSE) Test Performed by Nursing Services 02/16/2024 17:00 EST [facility] Blood CAPILLARY BLOOD / Unknown 02/16/2024 16:59 EST 02/16/2024 17:00 EST us Pete Miller DO POINT OF CARE TEST ORDERABLES Fi nal Result Performing Organization Address [facility] de Phone Number [facility] [address] [place] [address] * EKG 12-LEAD (02/16/2024 16:44 EST) 02/16/2024 16:4 4 EST Narrative [facility] EKG - 02/28/2024 10:28 EST ? [facility] ? Test Date: ?2024-02-16 Pat Name: ? NOE SUE ? Department: ?? Jose 4 ? Room: ? M415 Gender: ? Male ? 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 : ?1940 ? Requested By: JESUS FREEMAN Order Number: [id number] ? Zulay MD: ?? IMANI LOMAS MD ? Measurements Intervals ?[place] ? Rate: ? 104 ?P: ?73 OK: ? 147 ?QRS: ?-58 QRSD: ? 127 [...] Note Imani Lomas MD - 02/28/2024 [facility] Test Date: 2024-02-16 Pat Name: NOE SUE Department: [place] [address] Room: [facility] Gender: Male Web Merchandiser: : 1940 Requested By: JESUS FREEMAN Order Number: [id number] Reading MD: IMANI LOMAS MD Measurements Intervals [place] Rate: 104 P: 73 OK: 147 QRS: -58 QRSD: 127 T: 61 [...] preliminary report. Edited by CRISTELA TERRY MD [id number] 20:18:03 EST. I reviewed the tracing and have either agreed or edited the findings inthis report. Electronically Signed On 02-28-2024 10:28:35 EST by CAPO CLEMONS. us Pete Miller DO CARDIAC ECG ORDERABLES Final Res ult [facility] EKG documented in this encounter Visit Diagnoses Diagnosis Acute hypoxic respiratory failure (HCC-CMS)- Primary Closed right hip fracture, initial encounter (HCC-CMS) Acute hypoxic respiratory failure (HCC-CMS) [J96.01] Osteoporosis with current pathological fracture, unspecified osteoporosis type, initial encounter Chronic obstructive pulmonary disease, unspecified COPD type ([facility]) [J44.9] Pulmonary hypertension ([facility]) [I27.20] Other chronic pulmonary heart diseases Atrial fibrillation, unspecified type ([facility]) [I48.91] Urinary retention [R33.9] Retention of urine, unspecified Hypertension, unspecified type [I10] Thrush [B37.0] Candidiasis of mouth PFO (patent foramen ovale) Ostium secundum type atrial septal defect Pulmonary emphysema, unspecified emphysema type ([facility]) Closed right hip fracture, initial encounter ([facility]) Closed right hip fracture, initial encounter ([facility]) documented in this encounter Admitting Diagnoses Diagnosis Acute hypoxic respiratory failure ([facility]) Closed right hip fracture, initial encounter ([facility]) documented in this encounter Administered Medications Inactive Administered Medications - up to 3 most recent administrations Medication Order MAR Action Action Date Dose Rate Site acetaminophen (TYLENOL) tablet 1,000 mg 1,000 mg, oral, 3 TIMES DAILY, First dose (after last modification) on Mon02/26/24 at 1400, Until Discontinued, Routine Given 02/29/2024 8:29 EST 1,000 mg Given 02/28/2024 20:41 EST 1,000 mg Given 02/28/2024 13:40 EST 1,000 mg apixaban (ELIQUIS) tablet 2.5 mg 2.5 mg, oral, 2 TIMES DAILY, First dose on Mon02/19/24 at 2100, Until Discontinued, Routine Given 02/29/2024 8:30 EST 2 .5 mg Given 02/28/2024 20:42 EST 2.5 mg Given 02/28/2024 8:23 EST 2.5 mg aspirin chewable tablet 81 mg 81 mg, oral, DAILY, First dose on Mon02/17/24 at 0900, Until Discontinued, Routine Given 02/29/2024 8:29 EST 81 mg Given 02/28/2024 8:23 EST 81 mg Given 02/27/2024 8:09 EST 81 mg budesonide-formoterol HFA (SYMBICORT) 80-4.5 mcg/actuation inhaler 2 Puff 2 Puff, inhalation, EVERY 12 HOURS, First dose on Mon02/16/24 at 2100, Until Discontinued, Routine Given 02/29/2024 7:40 EST 2 Puffs Given 02/28/2024 19:46 EST 2 Puffs Given 02/28/2024 8:24 EST 2 Puffs cholecalciferol (Vitamin D3) tablet 2,000 Units 2,000 Units, oral, DAILY, First dose on Mon02/23/24 at 0900, Until Discontinued, Routine Given 02/29/2024 8:29 EST 2,000 Units Given 02/28/2024 8:23 EST 2,000 Units Given 02/27/2024 8:10 EST 2,000 Units lzeIJBllf-QTCSCWToyhf-gwfBVHYPJ-ropivacaine 80 mcg-0.5 mg-30 mg-150 mg periarticular syringe PRN, Starting on 02/17/24 at 1422, Until 02/17/24 at 1519, Routine, Intraprocedure Given 02/17/2024 14:22 EST dextrose 50 % solution 12.5 g 12.5 g (25 mL), intravenous, PRN, Starting on Mon02/16/24 at 1613, Until Vandana 02/29/24 at 1421, Low Blood Sugar, Routine Dimethicone-Zinc Oxide 20-25 % spray,non-aerosol topical, 2 TIMES DAILY, First dose on Mon02/20/24 at 2100, Until Discontinued Given 02/29/2024 8:30 EST Given 02/28/2024 20:54 EST Given 02/28/2024 8:24 EST furosemide (LASIX) 10 mg/mL injection 1 dose, Starting on Mon02/26/24 at 1622, Until Vandana 02/29/24 at 1421 glucagon injection 1 mg 1 mg, intramuscular, As needed, Starting on Mon02/16/24 at 1613, Until Vandana 02/29/24 at 1421, Low Blood Sugar, Routine guaiFENesin (MUCINEX) SR tablet 600 mg 600 mg, oral, 2 TIMES DAILY, First dose on Mon02/26/24 at 1330, Until Discontinued, Routine Given 02/29/2024 8:29 EST 6 00 mg Given 02/28/2024 20:42 EST 600 mg Given 02/28/2024 8:23 EST 600 mg HYDROmorphone (DILAUDID) tablet 2 mg 2 mg, oral, EVERY 4 HOURS PRN, Starting on Mon02/16/24 at 1613, Until Vandana 02/29/24 at 1421, Moderate Pain 4-6, Severe Pain 7-10, Routine Given 02/27/2024 11:08 EST 2 mg Given 02/24/2024 20:15 EST 2 mg Given 02/23/2024 23:09 EST 2 mg ipratropium-albuteroL (DUONEB) 0.5 mg-3 mg(2.5 mg base)/3 mL nebulizer solution 3 mL 3 mL, nebulization, 4 TIMES DAILY, First dose (after last modification) on Mon02/26/24 at 1700, Until Discontinued, Routine Given 02/29/2024 7:39 EST 3 mL Given 02/28/2024 12:41 EST 3 mL Given 02/28/2024 8:58 EST 3 mL lidocaine (PF) 10 mg/mL (1 %) injection 2 mg 2 mg, intradermal, PRN, 4 doses, Starting on 02/17/24 at 1922, Until Vandana 02/29/24 at 1421, peripheral intravenous catheter placement, Routine lidocaine 5 % (LIDODERM) patch 1 Patch 1 Patch, transdermal, Administer over 12 Hours, DAILY, First dose on Mon02/16/24 at 2030, Until Discontinued, STAT Patch Applied 02/25/2024 20:07 EST 1 Patch Back Patch Applied 02/24/2024 20:16 EST 1 Patch B ack Patch Applied 02/23/2024 21:22 EST 1 Patch R ight Hip metoprolol SUCCinate (TOPROL-XL) tablet 25 mg 25 mg, oral, DAILY, First dose on 02/18/24 at 0930, Until Discontinued, Routine Given 02/29/2024 8:29 EST 25 mg Given 02/28/2024 8:23 EST 25 mg Given 02/27/2024 8:09 EST 25 mg nystatin (MYCOSTATIN) suspension 500,000 Units 500,000 Units, oral, 4 TIMES DAILY, 28 doses, First dose on Mon02/26/24 at 1000, Last dose on Mon03/04/24 at 0800, Routine Given 02/29/2024 8:30 EST 500,000 Units Given 02/28/2024 18:02 EST 500,000 Units Given 02/28/2024 12:36 EST 500,000 Units pantoprazole (PROTONIX) tablet 40 mg 40 mg, oral, DAILY, First dose on Sun 10/24 at 1430, Until Discontinued, Routine Given 02/29/2024 8:29 EST 40 mg Given 02/28/2024 8:23 EST 40 mg Given 02/27/2024 8:10 EST 40 mg TAMSulosin (FLOMAX) capsule 0.4 mg 0.4 mg, oral, DAILY, First dose on Mon02/26/24 at 0900, Until Discontinued, Routine Given 02/29/2024 8:29 EST 0.4 mg Given 02/28/2024 8:23 EST 0.4 mg Given 02/27/2024 8:10 EST 0.4 mg tiotropium bromide (SPIRIVA RESPIMAT) 2.5 mcg/actuation inhalation mist 2 Puff 2 Puff (5 mcg), inhalation, DAILY, First dose on Mon02/20/24 at 0900, Until Discontinued, Routine Given 02/29/2024 7:43 EST 2 Puffs Given 02/28/2024 8:24 EST 2 Puffs Given 02/27/2024 8:16 EST 2 Puffs torsemide (DEMADEX) tablet 20 mg 20 mg, oral, DAILY, First dose on Mon02/27/24 at 0900, Until Discontinued, Routine Given 02/29/2024 8:30 EST 20 mg Given 02/28/2024 8:23 EST 20 mg Given 02/27/2024 8:10 EST 20 mg wound dressing (TRIAD) paste topical, 2 TIMES DAILY, First dose on Mon02/20/24 at 1400, Until Discontinued Given 02/29/2024 8:30 EST Given 02/28/2024 20:55 EST Given 02/28/2024 8:54 EST documented in this encounter Discontinued Medications Medication Sig Discontinue Reason Start Date End Da te amLODIPine (NORVASC) 10 mg tablet Take 1 Tablet by mouth daily. 02/29/2024 documented as of this encounter Historical Medications * This list may reflect changes made after this encounter. ANORO ELLIPTA 62.5-25 mcg/actuation inhaler Inhale 1 Puff as directed daily. 09/10/2023 albuterol 90 mcg/actuation HFA aerosol inhaler inhaler Inhale 2 Puffs as directed 4 times daily. 02/11/2024 added in this encounter Active and Recently Administered Medications Times are shown in EST. Scheduled Medication Order 02/27/2024 02/28/2024 02/29/2024 acetaminophen (TYLENOL) tablet 1,000 mg 1,000 mg, oral, 3 TIMES DAILY, First dose (after last modification) on 02/26/24 at 1400, Until Discontinued, Routine 0809 (Given - Provider: Julissa Gavin RN)1642 (Given - Provider: Julissa Gavin RN)2015 (Given - Provider: Corrie Davidson RN) 08 (Given - Provider: Lexii Walker RN)1340 (Given - Provider: Lexii Walker RN)204 (Given - Provider: Rubin Degroot RN) 0829 (Given - Provider: Myke Chao LPN)1400 (Canceled Entry - Provider: Batch Job User Admin - Comment: Automatically canceled at discontinue of medication order) acetaminophen (TYLENOL) tablet 1,000 mg (COMPLETED) 1,000 mg, oral, NOW X1, 1 dose, On Vandana 02/29/24 at 0030, Routine 0017 (Given - Provid er: Rubin Degroot RN) apixaban (ELIQUIS) tablet 2.5 mg 2.5 mg, oral, 2 TIMES DAILY, First dose on 02/19/24 at 2100, Until Discontinued, Routine 0810 (Given - Provider: Julissa Gavin RN)2015 (Given - Provider: Corrie Davidson RN) 08 (Given - Provider: Lexii Walker RN)2041 (Given - Provider: Rubin Degroot RN) 0830 (Given - Provider: Myke Chao LPN) aspirin chewable tablet 81 mg 81 mg, oral, DAILY, First dose on 02/17/24 at 0900, Until Discontinued, Routine 0809 (Given - Provider: Julissa Gavin RN) 08 (Given - Provider: Lexii Walker RN) 0829 (Given - Provider: Myke Chao LPN) budesonide-formoterol HFA (SYMBICORT) 80-4.5 mcg/actuation inhaler 2 Puff 2 Puff, inhalation, EVERY 12 HOURS, First dose on Mon02/16/24 at 2100, Until Discontinued, Routine 0811 (Given - Provider: Julissa Gavin RN)2006 (Given - Provider: Jack Mcdaniel RT) 0824 (Given - Provider: Lexii Walker RN)194 (Given - Provider: Boo Sandra RT) 0740 (Given - Provider: Sherice Esquivel RT) cholecalciferol (Vitamin D3) tablet 2,000 Units 2,000 Units, oral, DAILY, First dose on Mon02/23/24 at 0900, Until Discontinued, Routine 0810 (Given - Provider: Julissa Gavin RN) 08 (Given - Provider: Lexii Walker RN) 08 (Given - Provider: Myke Chao LPN) Dimethicone-Zinc Oxide 20-25 % spray,non-aerosol topical, 2 TIMES DAILY, First dose on Mon02/20/24 at 2100, Until Discontinued 0811 (Given - Provider: Julissa Gavin RN)2026 (Given - Provider: Corrie Davidson RN) 08 (Given - Provider: Lexii Walker RN)2053 (Given - Provider: Rubin Degroot RN) 08 (Given - Provider: Myke Chao LPN) guaiFENesin (MUCINEX) SR tablet 600 mg 600 mg, oral, 2 TIMES DAILY, First dose on Mon02/26/24 at 1330, Until Discontinued, Routine 0810 (Given - Provider: Julissa Gavin RN)2015 (Given - Provider: Corrie Davidson RN) 08 (Given - Provider: Lexii Walker RN)2041 (Given - Provider: Rubin Degroot RN) 08 (Given - Provider: Myke Chao LPN) ipratropium-albuteroL (DUONEB) 0.5 mg-3 mg(2.5 mg base)/3 mL nebulizer solution 3 mL 3 mL, nebulization, 4 TIMES DAILY, First dose (after last modification) on Mon02/26/24 at 1700, Until Discontinued, Routine 1000 (Given - Provider: Aimee Cordova RT)1325 (Given - Provider: Cuco Howell, RT)1642 (Given - Provider: Cuco Howell, RT)2006 (Given - Provider: Jack Mcdaniel RT) 0858 (Given - Provider: Sherice Sierra, RT)1241 (Given - Provider: Cuco Howell, RT)1630 (Not Given - Provider: Toña Silver, RT - Reason: Patient/family refused)1947 (Not Given - Provider: Boo Sandra, RT - Reason: Patient/family refused) 0739 (Given - Provider: Sherice Esquivel, RT)1200 (Canceled Entry - Provider: Batch Job User Admin - Comment: Automatically canceled at discontinue of medication order) lidocaine 5 % (LIDODERM) patch 1 Patch 1 Patch, transdermal, Administer over 12 Hours, DAILY, First dose on Mon02/16/24 at 2030, Until Discontinued, STAT 1953 (Not Given - Provider: Corrie Davidson RN - Reason: Patient/family refused) 2041 (Not Given - Provider: Rubin Degroot, ASHVIN - Reason: Patient/family refused) metoprolol SUCCinate (TOPROL-XL) tablet 25 mg 25 mg, oral, DAILY, First dose on 02/18/24 at 0930, Until Discontinued, Routine 0809 (Given - Provider: Julissa Gavin RN) 0823 (Given - Provider: Lexii Walker RN) 0829 (Given - Provider: Myke Chao LPN) nystatin (MYCOSTATIN) suspension 500,000 Units 500,000 Units, oral, 4 TIMES DAILY, 28 doses, First dose on Mon02/26/24 at 1000, Last dose on Mon03/04/24 at 0800, Routine 0809 (Given - Provider: Julissa Gavin RN)1109 (Given - Provider: Julissa Gavin RN)1642 (Given - Provider: Julissa Gavin RN)2016 (Given - Provider: Corrie Davidson RN) 0823 (Given - Provider: Lexii Walker, ASHVIN)1236 (Given - Provider: Lexii Walker, RN)1802 (Given - Provider: Lexii Walker, RN)210 (Not Given - Provider: Rubin Degroot RN - Reason: Patient/family refused) 0830 (Given - Provider: Myke Chao LPN)1200 (Canceled Entry - Provider: Batch Job User Admin - Comment: Automatically canceled at discontinue of medication order) pantoprazole (PROTONIX) tablet 40 mg 40 mg, oral, DAILY, First dose on 02/18/24 at 1430, Until Discontinued, Routine 0810 (Given - Provider: Julissa Gavin RN) 0823 (Given - Provider: Lexii Walker RN) 0829 (Given - Provider: Myke Chao LPN) TAMSulosin (FLOMAX) capsule 0.4 mg 0.4 mg, oral, DAILY, First dose on Mon02/26/24 at 0900, Until Discontinued, Routine 0810 (Given - Provider: Julissa Gavin RN) 0823 (Given - Provider: Lexii Walker RN) 0829 (Given - Provider: Myke Chao LPN) tiotropium bromide (SPIRIVA RESPIMAT) 2.5 mcg/actuation inhalation mist 2 Puff 2 Puff (5 mcg), inhalation, DAILY, First dose on Mon02/20/24 at 0900, Until Discontinued, Routine 0816 (Given - Provider: Julissa Gavin RN) 0824 (Given - Provider: Lexii Walker RN) 0743 (Given - Provider: Sherice Esquivel, RT) torsemide (DEMADEX) tablet 20 mg 20 mg, oral, DAILY, First dose on Mon02/27/24 at 0900, Until Discontinued, Routine 0810 (Given - Provider: Julissa Gavin RN) 0823 (Given - Provider: Lexii Walker RN) 0830 (Given - Provider: Myke Chao LPN) wound dressing (TRIAD) paste topical, 2 TIMES DAILY, First dose on Mon02/20/24 at 1400, Until Discontinued 0811 (Given - Provider: Julissa Gavin RN)2016 (Given - Provider: Corrie Davidson RN) 0854 (Given - Provider: Lexii Walker RN)2054 (Given - Provider: Rubin Degroot, ASHVIN) 0830 (Given - Provider: Myke Chao LPN) PRN Medication Order 02/27/2024 02/28/2024 02/29/2024 dextrose 50 % solution 12.5 g 12.5 g (25 mL), intravenous, PRN, Starting on Mon02/16/24 at 1613, Until Mon02/29/24 at 1421, Low Blood Sugar, Routine glucagon injection 1 mg 1 mg, intramuscular, As needed, Starting on Mon02/16/24 at 1613, Until Vandana 02/29/24 at 1421, Low Blood Sugar, Routine HYDROmorphone (DILAUDID) tablet 2 mg 2 mg, oral, EVERY 4 HOURS PRN, Starting on Mon02/16/24 at 1613, Until Vandana 02/29/24 at 1421, Moderate Pain 4-6, Severe Pain 7-10, Routine 1108 (Given - Provider: Julissa Gavin RN) lidocaine (PF) 10 mg/mL (1 %) injection 2 mg 2 mg, intradermal, PRN, 4 doses, Starting on 02/17/24 at 1922, Until Vandana 02/29/24 at 1421, peripheral intravenous catheter placement, Routine No Frequency Medication Order 02/27/2024 02/28/2024 02/29/2024 furosemide (LASIX) 10 mg/mL injection 1 dose, Starting on 02/26/24 at 1622, Until Vandana 02/29/24 at 1421 documented in this encounter Orders Medications Ordered That Brendon ht Not Have Been Administered Count Last Ordered Date First Ordered Date acetaminophen (TYLENOL) tablet 1,000 mg 5 1 04/30/2023 02/16/2024 torsemide (DEMADEX) tablet 20 mg 1 02/27/20 24 furosemide (LASIX) 10 mg/mL injection 1 furosemide (LASIX) injection 20 mg 2 202302/18/2024 guaiFENesin (MUCINEX) SR tablet 600 mg 1 ipratropium-albuteroL (DUONE B) 0.5 mg-3 mg(2.5 mg base)/3 mL nebulizer solution 3 mL 6 02/26/2024 02/16/2024 nystatin (MYCOSTATIN) suspen ignacia 500,000 Units 1 02/26/2024 TAMSulosin (FLOMAX) capsule 0.4 mg 1 2023 cholecalciferol (Vitamin D3) tablet 2,000 Units 1 02/22/2024 furosemide (LASIX) tablet 20 mg 1 furosemide (LASIX) injection 40 mg 3 202302/19/2024 ipratropium-albuteroL (DUONE B) 0.5 mg-3 mg(2.5 mg base)/3 mL nebulizer solution 1 02/21/2024 Dimethicone-Zinc Oxide 20-25 % spray,non-aerosol 1 02/20/2024 wound dressing (TRIAD) paste 1 02/20/2024 apixaban (ELIQUIS) tablet 2.5 mg 1 02/19/20 24 blood thinner patient educat ion booklet 1 Each 1 02/19/2024 predniSONE (DELTASONE) tablet 10 mg 1 02/18 predniSONE (DELTASONE) tablet 40 mg 2 02/1802/16/2024 tiotropium bromide (SPIRIVA RESPIMAT) 2.5 mcg/actuation inhalation mist 2 Puff 1 02/19/2024 cholecalciferol (Vitamin D3) tablet 1,000 Units 1 02/18/2024 metoprolol SUCCinate (TOPROL -XL) tablet 25 mg 1 02/18/2024 pantoprazole (PROTONIX) tablet 40 mg 3 02/0802/16/2024 polyethylene glycol 3350 ([place] RALAX) packet 17 g 2 02/18/2024 02/16/2024 predniSONE (DELTASONE) tablet 30 mg 1 02/17 senna (SENOKOT) tablet 2 Tablet 2 4 02/16/2024 atropine 0.1 mg/mL syringe 0.5 mg 1 diphenhydrAMINE (BENADRYL) i njection 12.5 mg 1 02/17/2024 enoxaparin (LOVENOX) injection 30 mg 1 12/2023 fentaNYL citrate (PF) injection 25-50 mcg 1 02/17/2024 heparin injection 5,000 Units 1 02/17/2024 HYDROmorphone (DILAUDID) tablet 2-4 mg 1 HYDROmorphone (PF) (DILAUDID ) 0.5 mg/0.5 mL syringe 0.3-0.5 mg 1 02/17/2024 HYDROmorphone (PF) (DILAUDID ) 0.5 mg/0.5 mL syringe 0.5 mg 1 02/17/2024 lidocaine (PF) 10 mg/mL (1 % ) injection 2 mg 2 02/17/2024 02/16/2024 naloxone (NARCAN) injection 0.2 mg 1 2023 ondansetron (PF) (ZOFRAN) injection 4 mg 1 02/17/2024 amiodarone in dextrose 360 m g/200 mL (1.8 mg/mL) infusion 1 02/16/2024 aspirin chewable tablet 81 mg 1 02/16/2024 budesonide-formoterol HFA (S YMBICORT) 80-4.5 mcg/actuation inhaler 2 Puff 1 02/16/2024 ceFAZolin (ANCEF) syringe 2 g 1 02/16/2024 cefTRIAXone (ROCEPHIN) 2,000 mg in sodium chloride (NS MBP) 50 mL IVPB 1 02/16/2024 dextrose 50 % solution 12.5 g 1 02/16/2024 doxycycline (VIBRA-TABS) tablet 100 mg 1 glucagon injection 1 mg 1 02/16/2024 HYDROmorphone (DILAUDID) tablet 2 mg 1 11/2023 insulin regular 100 unit/mL (3 mL) injectable pen 1 02/16/2024 iohexoL (OMNIPAQUE 350) solution 100 mL 1 1 04/17/2023 lidocaine 5 % (LIDODERM) patch 1 Patch 1 magnesium sulfate 2 g in water 50 mL 1 11/2023 potassium chloride in water infusion 20 mEq 1 02/16/2024 sennosides (SENOKOT) syrup 17.6 mg 1 2023 Diet Count Last Ordered Date First Orde red Date DISCHARGE DIET 1 02/29/2024 Nursing Count Last Ordered Date First Orde red Date ACTIVITY INSTRUCTIONS 1 02/29/2024 BATHING INSTRUCTIONS 1 02/29/2024 DRIVING INSTRUCTIONS 1 02/29/2024 OXYGEN THERAPY (AGE 1 YRS. TO ADULT) 1 02/09 Respiratory Care Count Last Ordered Date First Ordered Date RESPIRATORY CARE EVALUATION ONLY 1 02/26/20 Wound Ostomy Count Last Ordered Date First Orde red Date WOUND EVALUATION AND TREAT 1 02/19/2024 IV Count Last Ordered Date First Orde red Date IV REQUEST 2 02/26/2024 02/16/2024 Admission Count Last Ordered Date First Orde red Date ADMIT TO INPATIENT 1 02/16/2024 Transfer Count Last Ordered Date First Orde red Date TRANSFER PATIENT 1 02/18/2024 Discharge Count Last Ordered Date First Orde red Date DISCHARGE PATIENT 1 02/29/2024 Case Request Count Last Ordered Date First Orde red Date CASE REQUEST OPERATING ROOM 1 02/16/2024 documented in this encounter Additional Health Concerns Infection Onset Date Last Indicated Resolved Time Respiratory rule-out Comment:Negative testing 02/16/2024 02/16/2024 02/17/2024 7:26 EST documented as of this encounter Care Teams [employer] White Relationship Specialty Start Date End Date Suzie Villagomez MD [address] [place] [id number] PCP - General Family Medicine - Primary Care 02/15/24 documented as of this encounter
--- OUTSIDE RECORDS SUMMARY | 2024-03-27 10:43 | XMS_ITS | Encounter Summary ---
Author Organization [facility] Address [address] [place] [address] Care Team Providers Care Preparer Making Department Name Role Phone Suzie Villagomez MD Primary Care Provider [phone] Reason for Referral * Consult (Routine/Next Available) - Receiving Office to Obtain Authorization Specialty Diagnoses / Procedures Referred By Jean Carlos t Referred To Contact Orthopedic Surgery Diagnoses Closed right hip fracture, initial encounter ([facility]) Farnaz Sanchez NP [address] [place] [phone] Phone: tel: fax: Ko Marquis PA-C [address] [place] [phone] Phone: tel: fax: Referral ID Status Reason Start Date Expiration Date Visits Requested Visits Authorized [id number] Receiving Office to Obtain Authorization Post Op Visit 02/22/20 24 1 1 Question Answer Scheduling Comments (optional ? describe specific scheduling needs if applicable): 6w post op Reason for Request: R FNF s/p hemiarthroplasty w/ on-call 02/16 * Consult (Routine/Next Available) - Receiving Office to Obtain Authorization Specialty Diagnoses / Procedures Referred By Contac t Referred To Contact Endocrinology Diagnoses Osteoporosis with current pathological fracture, unspecified osteoporosis type, initial encounter Farnaz Sanchez NP [address] [place] [phone] Phone: tel: fax: [facility] Endocrinology - [address] [address] Phone: tel: fax: Referral ID Status Reason Start Date Expiration Date Visits Requested Visits Authorized [id number] Receiving Office to Obtain Authorization Specialty Services Required 02/22/20 24 1 1 Question Answer Please choose one of the following condition categories: Osteoporosis Choose one or more of the following: None of the above Submit an order for ? eConsult? metabolic bone/osteoporosis? and cancel this referral: The consult is originating from the Emergency Department or an Inpatient Provider Reason for Request: osteoporosis w/ current pathological fracture Comments Attention: Fracture Liaison Service Reason for Visit * Auth/Cert (Routine) Specialty Diagnoses / Procedures Referred By Contac t Referred To Contact Diagnoses Acute hypoxic respiratory failure ([facility]) Hip fracture Referral ID Status Reason Start Date Expiration Date Visits Re quested Visits Authorized [id number] 1 1 Encounter Details Date Type Department Care Team (Late st Contact Info) Description 02/16/2024 15:41 EST - 02/29/2024 12:20 EST Hospital Encounter [facility] General Medicine Unit [address] [place], [place] [id number] Ritesh Cardenas MD [address] [place] [place] [address], [facility] [address] [place] [phone] Murtaza Adams MD [address] [place] [phone] Marcos Quintero MD [address] [place] [phone] Cuco Vazquez MD [address] [place] [phone] Jone Em MD [address] [phone] Pushpa Welch MD [address] [phone] Closed right hip fracture, initial encounter ([facility]) (Primary Dx); Acute hypoxic respiratory failure ([facility]) [J96.01]; Osteoporosis with current pathological fracture, unspecified osteoporosis type, initial encounter; Chronic obstructive pulmonary disease, unspecified COPD type ([facility]) [J44.9]; Pulmonary hypertension ([facility]) [I27.20]; Atrial fibrillation, unspecified type ([facility]) [I48.91]; Urinary retention [R33.9]; Hypertension, unspecified type [I10]; Thrush [B37.0]; PFO (patent foramen ovale); Pulmonary emphysema, unspecified emphysema type ([facility]) Discharge Disposition: Nursing Facility (Skilled) Social History Tobacco Use Types Packs/Day Years Used Date Smoking Tobacco: Former Cigarettes Alcohol Use Standard Drinks/Week Comments Never 0 (1 standard drink = 0.6 oz pur e alcohol) [facility] Utilities Answer Date Recorded In the past 12 months has [employer] gas, oil, or [employer] threatened to shut off services in your [...] any time in the past 12 m onths, were you homeless or living in a senior care (including now)? No 02/16/2024 [facility] - Inadequate Housing Answer Date Re corded What is your living situation today? [facility] 02/20/[address] you li ve. Do you have problems with any of the following? None of the above 02/20/2024 Interpersonal Safety Answer Date Record ed How often does anyone, [place] family, hit, punch or physically hurt you? 02/16/2024 How often does anyone, incljustice sergio family, insult, scream, curse or threaten [...] Admit Date: 02/16/2024 Discharge Date: 02/29/24 Disposition: senior living facility/Subacute rehab Reason for Admission: hip fracture Principal/Final Diagnosis: Acute hypoxic respiratory failure ([facility]) Active Hospital Problems Diagnosis Date Noted *Acute hypoxic respiratory failure ([facility]) 02/16/2024 PFO (patent foramen ovale) 02/27/2024 Atrial fibrillation ([facility]) 02/26/2024 Urinary retention 02/26/2024 Hypertension 02/26/2024 Thrush 02/26/2024 Osteoporosis with current pathological fracture 02/22/2024 Pulmonary hypertension ([facility]) 02/16/2024 Chronic obstructive pulmonary disease ([facility]) 02/16/2024 Closed right hip fracture, initial encounter ([facility]) 02/15/2024 Resolved Hospital Problems No resolved problems to display. Condition at Discharge: Improved Clinical Issues Needing Follow-up: -Needs osteoporosis treatment post DC, ortho placed referral to the Fracture Liaison Service with [facility] Endocrinology - 2 weeks postoperative wound check to be completed by rehabilitation or orthopedic MD/CHAVA. - 6 weeks postoperative follow-up with orthopedic trauma clinic for repeat clinical and radiographic evaluation. (Referral placed for [facility] follow up - could explore placing referral for ortho closerto home) - Referral to outpatient pulmonology/cardiology in [facility] (order not placed) - Discharging with [...] GERD, and HTN, who was transferred from [facility] [place] then [facility] for surgical management of a right [...] which may represent aspiration pneumonitis. Smallright effusion. [id number] XR CHEST PORTABLE 1 VIEW Result Date: 02/18/2024 Bilateral small pleural effusions and bibasilar opacities compatible with atelectasis. [id number] XR HIP RIGHT 1 VIEW Result Date: 02/17/2024 FINDINGS/IMPRESSION: 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 No periprosthetic fracture is seen. No acute left hip abnormality is seen. Atherosclerotic calcifications arepresent bilaterally. [id number] XR HIP LEFT 1 VIEW Result Date: 02/17/2024 FINDINGS/IMPRESSION: 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 No periprosthetic fracture is seen. No acute left hip abnormality is seen. Atherosclerotic calcifications arepresent bilaterally. [id number] CT ANGIO CHEST PE PROTOCOL Result Date: [...] above interpretation and agree with the findings. [id number] XR HIP RIGHT 1 VIEW Result Date: 02/16/2024 Findings/impression: Redemonstrated right femoral neck fracture, not significantly changed. No left-sided hip fracture or dislocation. Mild degenerative changes of the left hip. The soft tissues are unremarkable. [id number] XR HIP LEFT 2-3 VIEWS OPTIONAL PELVIS Result Date: 02/16/2024 Findings/impression: Redemonstrated right femoral neck fracture, not significantly changed. No left-sided hip fracture or dislocation. Mild degenerative changes of the left hip. The soft tissues are unremarkable. [id number] XR CHEST PORTABLE 1 VIEW Result Date: 02/16/2024 Small bilateral pleural effusions. Slight interval increase in patchy airspace opacities at both lung bases and in the suprahilar right lung. [id number] No Known Allergies There is no immunization history for the selected administration types on file for this patient. Results Pending at Discharge Test results still pending from this admission None Follow-up appointments and procedures Amb Consult/Follow Up Orthopedics - [facility] Scheduling Comments (optional - describe specific scheduling needs if applicable): 6w post op Reason for Request: R FNF s/p hemiarthroplasty w/ on-call 11/9 Authorizing Provider: Farnaz Sanchez NP Amb Consult/Follow [...] daily for 4 days. 80 mL 02/29/2024 4 documented as of this encounter Ordered Prescriptions [...] daily for 4 days. 80 mL 02/29/2024 4 documented in this encounter Discharge Disposition Disposition Code Departure Means Destination Comment s Nursing Facility (Skilled) Skilled N ursing documented in this encounter Progress Notes * Julianne Pascal - 02/29/2024 0925 EST CM Discharge Note CASE MANAGEMENT DISCHARGE NOTE DISCHARGE DATE/TIME: 02/29/24 11:15-12:00 DESTINATION: [facility] [address] [place] [address] (If discharging to [facility]) COVID swab ordered and completed: na TRANSPORTATION: [facility] ACCEPTING MD AND NUMBER: ira RN REPORT/UNIT: [phone] SECURITIES COUNSELOR/CHARGE/MD NOTIFIED (Y/N): Y FORMS: (Acute to acute, COLST, MOLST, KEON, Screen, PASRR, Ambulance): COLST,PASRR, Ambulance form, LENA IM SIGNED (Y/NA): na HOME HEALTH: [facility] - services on hold DME: oxymizer PHARMACY/PRESCRIPTIONS: facility MEDS TO BEDS UTILIZED : NO Patient and/or family who participated in discharge plan: patient and granddaughter Dang TAMMY Navarrete Spinner Operator II Epic chat preferred. 02/26/2024 11:57 * Toña Silver RT - 02/28/2024 1754 EST 1630 Pt refused nebulizer treatment this afternoon, he remains on 3L oxymizer * Pushpa Welch MD - 02/28/2024 1500 EST Medicine Progress [...] needs and plan for his transition to [facility]. Called and updated granddaughter Dang. [...] hypertension who transferred to our institution from [facility] with a right femoral neck fracture [...] oxygenation for movement to get him to [facility]. Case discussed today with RT, [...] this today so able to go to [facility] with this tentatively tomorrow - [...] referral to the Fracture Liaison Service with [facility] Endocrinology - Vit D 2000U/d, tylenol and dilaudid for pain Thrush - nystatin swish and spit Urinary retention CHRISTIANO - resolved to baseline - failed a few lewis trials, tamsulosin started 02/25 and can retrial at [facility]/urology o/p Afib with RVR - new this hospitalization, not on AC outpatient - confirmed with 02/25 his med list - apixaban 2.5 BID started this hospital stay. Would benefit from o/p holter to assess frequency - DISABILITY ADVOCATE metoprolol, received amio in the ICU Chronic comorbidities HTN - home metoprolol, amlodpine 10mg on hold GERD - home protonix HLD/CAD - home ASA Incidental findings Spiculated lung nodule seen on CT chest - needs repeat imaging 1 month post treatment outpatient toensure resolution VTE Prophylaxis apixaban Discharge Plan [facility] - if stable respiratory status on potential oxymizer - have asked for assistance with verifying they could support this and would tentatively plan for pending respiratory stability Consults Ortho Pushpa Welch MD 02/28/2024 15:00 I spent a total of 55 minutes on the date of this encounter meeting with the patient and reviewing documentation/coordinating care as described in the above note. * Sherice Mansfield RT - 02/28/2024 1105 EST Progress Note [...] when patient ambulates. Patient tolerates treatments well. SHERICE MANSFIELD, RT 02/28/24 * Marianne Mcdaniel, RT - 02/27/2024 2016 EST Respiratory Progress Note Indications for Respiratory [...] willing to try again in the morning. MARIANNE MCDANIEL, RT 02/27/24 * Cuco Howell, RT - 02/27/2024 1709 EST Respiratory Consult/Progress [...] decreased Response: Mild response, increase subjective per STOCK LETTERER Pulse: <100 Resp Rate: 18-25 SOB: With [...] hypertension who transferred to our institution from [facility] with a right femoral neck fracture [...] referral to the Fracture Liaison Service with [facility] Endocrinology - Vit D 2000U/d, tylenol and dilaudid for pain Thrush - nystatin swish and spit Urinary retention CHRISTIANO - resolved to baseline - failed a few lewis trials, tamsulosin started 02/25 and can retrial 02/27 vs at [facility]/urology o/p Afib with RVR - new this hospitalization, not on AC outpatient - confirmed with 02/25 his med list - apixaban 2.5 BID started this hospital stay. Would benefit from o/p holter to assess frequency - DISABILITY ADVOCATE metoprolol, received amio in the ICU Chronic comorbidities HTN - home metoprolol, amlodpine 10mg on hold GERD - home protonix HLD/CAD - home ASA Incidental findings Spiculated lung nodule seen on CT chest - needs repeat imaging 1 month post treatment outpatient toensure resolution VTE Prophylaxis apixaban Discharge Plan [facility] - if stable respiratory status on potential oxymizer - have asked CM for assistance with verifying they could support this and would tentatively plan for pending respiratory stability Consults Romero Welch MD 02/27/2024 14:02 I spent a [...] decreased Response: Mild response, increase subjective per STOCK LETTERER Pulse: <100 Resp Rate: <18 SOB: With [...] Julianne Pascal - 02/27/2024 0943 EST [facility] Department of Case Management and Social Work [...] Y/N Bed Offers: Y/N Escalated to Leadership: Y/N SUZIE toth Mobility Level: Recommended D/C Location Payor: Bedside Mobility Assessment Tool (BMAT) Bedrest or non-weight bearing orders?: Yes Recommended Discharge Destination PT Recommended Discharge Destination: Subacute rehabilitation Payor: MEDICARE / Plan: MEDICARE A/B / Product Type: Medicare GL / Barriers to Discharge pending medical readiness - stability on oximizer Plan [facility] Transfer by ambulance on Monday was postponed due toconcern for stability. Plan is to switch patient to oximizer, observe [facility] a day[facility] until . [employer] TAMMY Navarrete Spinner Operator II Epic chat preferred. 02/27/2024 9:43 02/27/24 [...] - but states home health would. Called [facility] who confirmed the following meds: Multivitamin with [...] hypertension who transferred to our institution from [facility] with a right femoral neck fracture [...] referral to the Fracture Liaison Service with [facility] Endocrinology - Vit D 2000U/d, tylenol and dilaudid for pain Thrush - nystatin swish and spit Urinary retention CHRISTIANO - resolved to baseline - failed a few lewis trials, tamsulosin started 02/25 and can retrial 02/27 vs at [facility]/urology o/p Afib with RVR - new this hospitalization, not on AC outpatient - confirmed with 02/25 his med list - apixaban 2.5 BID started this hospital stay. Would benefit from o/p holter to assess frequency - DISABILITY ADVOCATE metoprolol, received amio in the ICU Chronic comorbidities HTN - home metoprolol, amlodpine 10mg on hold GERD - home protonix HLD/CAD - home ASA Incidental findings Spiculated lung nodule seen on CT chest - needs repeat imaging 1 month post treatment outpatient toensure resolution VTE Prophylaxis apixaban Discharge Plan [facility] - if stable respiratory status as early as tomorrow Consults Ortho Pushpa Welch MD 02/26/2024 13:08 * Andie Cheema, RD - 02/26/2024 1304 EST Nutrition Assessment Note: [...] Progress Note Patient scheduled to transfer to [facility] H&R postponed by provider as precaution to urltme20 stability. [facility]. Confirmed that if he is confirmed to be stable, they can take him tomorrow. CM cancelled ambulance ride and will reschedule in the morning as appropriate. CM notified granddaughter Dang. CM will continue to follow and coordinate safe discharge. TAMMY Navarrete Spinner Operator II Epic chat preferred. 02/26/2024 12:00 * Laine Coe, PT - 02/26/2024 1130 EST [facility] Rehabilitation Therapy Acute Therapy [facility] ADDENDUM: This addendum is intended as a [...] during admission. He has been dc to [facility] 02/28 to further progress functionalindep [...] the future with a new referral. LAINE COE, PT 03/01/24 8:13 Physical Therapy Encounter Note Date of Service: 02/26/2024 SUBJECTIVE: Subjective Statements Comments: pt needing to try and have a bm upon arrival Pain Evaluation Pain Description: sore L hip; not rated but worse with mobility OBJECTIVE: Interventions Completed Today: Physical Therapy Today At: Time: [id number] minutes Present for the Therapy Session Comments: [...] During therapy session, After therapy session By: [id number] communication Additional communication about Patient Status and [...] go to rehab closer to family in [place]. Objective Vital Signs Temp: [36.7 ??C (98.1 [...] effusions and bibasilar opacities compatible with atelectasis. [id number] XR HIP RIGHT 1 VIEW Result Date: 02/17/2024 FINDINGS/IMPRESSION: 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 No periprosthetic fracture is seen. No acute left hip abnormality is seen. Atherosclerotic calcifications arepresent bilaterally. [id number] XR HIP LEFT 1 VIEW Result Date: 02/17/2024 FINDINGS/IMPRESSION: 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 No periprosthetic fracture is seen. No acute left hip abnormality is seen. Atherosclerotic calcifications arepresent bilaterally. [id number] CT ANGIO CHEST PE PROTOCOL Result Date: [...] above interpretation and agree with the findings. [id number] XR HIP RIGHT 1 VIEW Result Date: 02/16/2024 Findings/impression: Redemonstrated right femoral neck fracture, not significantly changed. No left-sided hip fracture or dislocation. Mild degenerative changes of the left hip. The soft tissues are unremarkable. [id number] XR HIP LEFT 2-3 VIEWS OPTIONAL PELVIS Result Date: 02/16/2024 Findings/impression: Redemonstrated right femoral neck fracture, not significantly changed. No left-sided hip fracture or dislocation. Mild degenerative changes of the left hip. The soft tissues are unremarkable. [id number] XR CHEST PORTABLE 1 VIEW Result Date: 02/16/2024 Small bilateral pleural effusions. Slight interval increase in patchy airspace opacities at both lung bases and in the suprahilar right lung. [id number] Assessment/Plan Assessment Noe Sue is a 83 y.o. male with a PMHx of COPD (3-5L home oxygen), possible AF (he denies ever being told he has AF), GERD, and HTN, who was transferred from [facility] [place] then [facility] for surgical management of a right [...] Symbicort q12h (LABA/ICS), spiriva daily to replace DISABILITY ADVOCATE LAMA - Hold DISABILITY ADVOCATE Anoro Ellipta (LAMA/LABA) - Wean off of supplemental O2 as tolerated - Maintain SpO2 88-92% - RT following, airway clearance - On discharge would need good pulmonology FU, could benefit from pulmonary rehab. 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 Multiple doses of IV lasix given, titrated to kidney function and respiratory function. - Oral diuresis with lasix 20mg. CHRISTIANO resolved. Patient's creatinine on admission 2.54, baseline Cr about 1 per note from [facility]. - Daily BMP - Strict I/Os Urinary Retention Denies retention at home but has thus far failed void trial 02/18, 02/22 - lewis was replaced 02/24, likely can do void trial in 1-2 days to see if retention is improved bytamsulosin - tamsulosin 0.4 at bedtime. Afib with RVR Patient denies h/o AF or taking eliquis, but report from [facility] said his last dose of eliquis was 02/13). EDGAR-VASc score of 4 with 4.8% stroke risk. - Started Eliquis 2.5mg BID (dose reduced given pt's advanced age, serum Cr., and weight) - Dc'd Telemetry monitoring d/t stable rate control over the past several days, low threshold to restart if rates sustained >110. - Continue DISABILITY ADVOCATE metoprolol XL 25 mg daily Right femoral [...] referral to the Fracture Liaison Service with [facility] Endocrinology - Vit D 2000U/d - PT recs TANI Chronic: HTN - Cont DISABILITY ADVOCATE metoprolol XL 25 mg daily - Holding DISABILITY ADVOCATE amlodipine 10 mg daily GERD - DISABILITY ADVOCATE pantoprazole 40/d Constipation, resolved VTE Prophylaxis: apixaban [...] Internal Medicine Hospitalist 02/25/24 16:01 * Israel Herrmann, RT - 02/24/2024 1403 EST Respiratory Consult/Progress Note Indications for Respiratory [...] decreased Response: Mild response, increase subjective per STOCK LETTERER Pulse: <100 Resp Rate: 18-25 SOB: With [...] go to rehab closer to family in [place]. Objective Vital Signs Temp: [37 ??C (98.6 [...] effusions and bibasilar opacities compatible with atelectasis. [id number] XR HIP RIGHT 1 VIEW Result Date: 02/17/2024 FINDINGS/IMPRESSION: 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 No periprosthetic fracture is seen. No acute left hip abnormality is seen. Atherosclerotic calcifications arepresent bilaterally. [id number] XR HIP LEFT 1 VIEW Result Date: 02/17/2024 FINDINGS/IMPRESSION: 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 No periprosthetic fracture is seen. No acute left hip abnormality is seen. Atherosclerotic calcifications arepresent bilaterally. [id number] CT ANGIO CHEST PE PROTOCOL Result Date: [...] above interpretation and agree with the findings. [id number] XR HIP RIGHT 1 VIEW Result Date: 02/16/2024 Findings/impression: Redemonstrated right femoral neck fracture, not significantly changed. No left-sided hip fracture or dislocation. Mild degenerative changes of the left hip. The soft tissues are unremarkable. [id number] XR HIP LEFT 2-3 VIEWS OPTIONAL PELVIS Result Date: 02/16/2024 Findings/impression: Redemonstrated right femoral neck fracture, not significantly changed. No left-sided hip fracture or dislocation. Mild degenerative changes of the left hip. The soft tissues are unremarkable. [id number] XR CHEST PORTABLE 1 VIEW Result Date: 02/16/2024 Small bilateral pleural effusions. Slight interval increase in patchy airspace opacities at both lung bases and in the suprahilar right lung. [id number] Assessment/Plan Assessment Noe Sue is a 83 y.o. male with a PMHx of COPD (3-5L home oxygen), possible AF (he denies ever being told he has AF), GERD, and HTN, who was transferred from [facility] to [facility] and then [facility] for surgical management of a right [...] Symbicort q12h (LABA/ICS), spiriva daily to replace DISABILITY ADVOCATE LAMA - Hold DISABILITY ADVOCATE Anoro Ellipta (LAMA/LABA) - Wean off of supplemental O2 as tolerated - Maintain SpO2 88-92% - RT following, airway clearance - On discharge would need good pulmonology FU, could benefit from pulmonary rehab. 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 Multiple doses of IV lasix given, titrated to kidney function and respiratory function. - Oral diuresis with lasix 20mg. CHRISTIANO resolved. Patient's creatinine on admission 2.54, baseline Cr about 1 per note from [facility] - Daily BMP - Strict I/Os Urinary Retention Denies retention at home but has thus far failed void trial 02/18 - remove lewis and repeat void trial today 02/22 Afib with RVR Patient denies h/o AF or taking eliquis, but report from [facility] said his last dose of eliquis was 02/13). EDGAR-VASc score of 4 with 4.8% stroke risk. - Started Eliquis 2.5mg BID (dose reduced given pt's advanced age, serum Cr., and weight) - Dc'd Telemetry monitoring d/t stable rate control over the past several days, low threshold to restart if rates sustained >110. - Continue DISABILITY ADVOCATE metoprolol XL 25 mg daily Right femoral [...] referral to the Fracture Liaison Service with [facility] Endocrinology - Lewis catheter placed due to urinary retention, removed 02/22 - Vit D 2000U/d - PT recs TANI Chronic: HTN - Cont DISABILITY ADVOCATE metoprolol XL 25 mg daily - Holding DISABILITY ADVOCATE amlodipine 10 mg daily GERD - DISABILITY ADVOCATE pantoprazole 40/d Constipation - Miralax BID, senna [...] medical complexity Plan: DVT/VTE Chemoprophylaxis: Inpatient plan: DISABILITY ADVOCATE Eliquis Discharge plan: Same Wound Care: Inpatient [...] and to the Fracture Liaison Service at [facility] endocrinology placed Pain management: Inpatient plan: Multimodal Discharge plan: Multimodal Antibiotics and other medications: Inpatient plan: Perioperative Ancef complete Discharge plan: None Diet: DIET REGULAR PT/OT: TANI Dispo: Pending TANI acceptance Orthopedics will continue to follow peripherally Russell Rodriguez MD 02/23/24 20:17 Orthopaedic Surgery, PGY-2 Pager [phone] Cosigned by Fred Fernández MD at 02/24/2024 [...] decreased Response: Mild response, increase subjective per STOCK LETTERER Pulse: <100 Resp Rate: 18-25 SOB: With [...] go to rehab closer to family in [place]. Objective Vital Signs Temp: [35.8 ??C (96.5 [...] effusions and bibasilar opacities compatible with atelectasis. [id number] XR HIP RIGHT 1 VIEW Result Date: 02/17/2024 FINDINGS/IMPRESSION: 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 No periprosthetic fracture is seen. No acute left hip abnormality is seen. Atherosclerotic calcifications arepresent bilaterally. [id number] XR HIP LEFT 1 VIEW Result Date: 02/17/2024 FINDINGS/IMPRESSION: 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 No periprosthetic fracture is seen. No acute left hip abnormality is seen. Atherosclerotic calcifications arepresent bilaterally. [id number] CT ANGIO CHEST PE PROTOCOL Result Date: [...] above interpretation and agree with the findings. [id number] XR HIP RIGHT 1 VIEW Result Date: 02/16/2024 Findings/impression: Redemonstrated right femoral neck fracture, not significantly changed. No left-sided hip fracture or dislocation. Mild degenerative changes of the left hip. The soft tissues are unremarkable. [id number] XR HIP LEFT 2-3 VIEWS OPTIONAL PELVIS Result Date: 02/16/2024 Findings/impression: Redemonstrated right femoral neck fracture, not significantly changed. No left-sided hip fracture or dislocation. Mild degenerative changes of the left hip. The soft tissues are unremarkable. [id number] XR CHEST PORTABLE 1 VIEW Result Date: 02/16/2024 Small bilateral pleural effusions. Slight interval increase in patchy airspace opacities at both lung bases and in the suprahilar right lung. [id number] Assessment/Plan Assessment Noe Sue is a 83 y.o. male with a PMHx of COPD (3-5L home oxygen), possible AF (he denies ever being told he has AF), GERD, and HTN, who was transferred from [facility] to [facility] [place] then [facility] for surgical management of a right [...] Symbicort q12h (LABA/ICS), spiriva daily to replace DISABILITY ADVOCATE LAMA - Prednisone to 40 mg daily since 02/18 (Pt has received 2x 40mg 02/14-02/15 and 2x 30 mg prednisone 02/17 -02/18), duration tbd by respiratory status. - Hold DISABILITY ADVOCATE Anoro Ellipta (LAMA/LABA) - Wean off of supplemental O2 as tolerated - Maintain SpO2 88-92% - RT following, airway clearance - On discharge would need good pulmonology FU, could benefit from pulmonary rehab. 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 Multiple doses of IV lasix given, titrated to kidney function and respiratory function. - Oral diuresis with lasix 20mg, will consider as longer term maintenance dosing. CHRISTIANO resolved. Patient's creatinine on admission 2.54, baseline Cr about 1 per note from [facility]. - Daily BMP - Strict I/Os Urinary Retention Denies retention at home but has thus far failed void trial 02/18 - remove lewis and repeat void trial today 02/22 Afib with RVR Patient denies h/o AF or taking eliquis, but report from [facility] said his last dose of eliquis was 02/13). EDGAR-VASc score of 4 with 4.8% stroke risk. - Started Eliquis 2.5mg BID (dose reduced given pt's advanced age, serum Cr., and weight) - Dc'd Telemetry monitoring d/t stable rate control over the past several days, low threshold to restart if rates sustained >110. - Continue DISABILITY ADVOCATE metoprolol XL 25 mg daily Right femoral [...] referral to the Fracture Liaison Service with [facility] Endocrinology - Lewis catheter placed due to urinary retention - Vit D 2000U/d - PT recs TANI Chronic: HTN - Cont DISABILITY ADVOCATE metoprolol XL 25 mg daily - Holding DISABILITY ADVOCATE amlodipine 10 mg daily GERD - DISABILITY ADVOCATE pantoprazole 40/d Constipation - Miralax BID, senna 2 tabs at night VTE Prophylaxis: apixaban 2.5mg BID Code status: Limitation of Treatment DNR Do not intubate (DNI) Disposition: awaiting TANI May Mauricio MD Internal Medicine, PGY-2 Epic chat Pager [phone] Attending Attestation I interviewed and examined the patient. I have personally reviewed interval events, laboratory data, and imaging. I discussed the case with the inpatient resident team. I agree with findings and planof care as documented by the resident (or have edited in blue). Cuco Vazquez MD Internal Medicine Hospitalist 02/23/24 21:26 * Julianne Pascal - 02/23/2024 1304 EST [facility] Department of Case Management and Social Work Case Management Progress Note Patient Name Level of Care and Accommodation Code: Patient Class: Medically Ready: Y/N Noe Sue Acute General Inpatient y Primary Dx: Decisional Capacity: Y/N Primary Support/ CareGiver: Advance Directive Acute hypoxic respiratory failure ([facility]-CMS) taylor Godinez Advance Directives (For Healthcare) Healthcare Directive: No, patient does not have advance directive for healthcare treatment Disposition Information Appropriate to transfer back: Y/N Length of Stay (in days): Estimated Date of D/C: LTC Medicaid Status: n 7 02/22 na Primary Care Provider: AR/TANI/SNF referred: Y/N Bed Offers: Y/N Escalated to Leadership: Y/N SUZIE VILLAGOMEZ y navneet toth Mobility Level: Recommended D/C Location Payor: Bedside Mobility Assessment Tool (BMAT) Bedrest or non-weight bearing orders?: Yes Recommended Discharge Destination PT Recommended Discharge Destination: Subacute rehabilitation Payor: MEDICARE / Plan: MEDICARE A/B / Product Type: Medicare GL / Barriers to Discharge pending TANI bed offer Plan CASE MANAGEMENT NOTE Pt has been deemed appropriate for placement at a snf facility (SNF). Listed patient at the following facilities: [place] [facility] Explained to patient and/or family that patients [...] patient's family per patient's request Addendum: [facility]R reviewing - concern for 02 stability - will look again on Monday [facility] - may have bed available on Monday - E-Signature TAMMY Navarrete Spinner Operator II Epic chat preferred. 02/23/2024 13:08 02/23/24 [...] weight 58.1 kg (128 lb), SpO2 97%. 11/13 1500 - 02/21 1459 In: 200 [P.O.:200] [...] and to the Fracture Liaison Service at [facility] endocrinology placed Pain management: Inpatient plan: Multimodal Discharge plan: Multimodal Antibiotics and other medications: Inpatient plan: Perioperative Ancef complete Discharge plan: None Diet: DIET REGULAR PT/OT: TANI Dispo: Likely DC today Russell Rodriguez MD 02/22/24 21:31 Orthopaedic Surgery, PGY-2 Pager [phone] Cosigned by Nicholas Poole MD MPH at 02/23/2024 11:12 EST * SachiLexii gay, RT - 02/22/2024 1722 EST Respiratory Consult/Progress [...] decreased Response: Mild response, increase subjective per STOCK LETTERER Pulse: <100 Resp Rate: 18-25 SOB: With [...] scheduled treatments, wean as tolerate. LEXII RENTERIA, 02/22/24 * Yobani Alvarez, RN - 02/22/2024 1648 EST Data: Pt [...] Gunn, PT - 02/22/2024 1632 EST [facility] Rehabilitation Therapy Acute Therapy [facility] Physical Therapy Encounter Note Date of Service: 02/22/2024 Precautions: posterior R THR precautions, WBAT RLE SUBJECTIVE: Subjective Statements Comments: patient quiet throughout session. Increased work of breathing and placed on ventimask during session. Pateint agreeable to PT assisting with back to bed. OBJECTIVE: Interventions Completed Today: Physical Therapy Today At: Time: 1163-3862 Total Treatment Time (minutes): 25 Present for [...] During therapy session, After therapy session By: [id number] communication Additional communication about Patient Status and [...] To be determined at discharge facility Danny Gunn PT 02/22/2024 16:32 * Cuco Vazuqez MD - 02/22/2024 1058 EST Medicine Progress [...] effusions and bibasilar opacities compatible with atelectasis. [id number] XR HIP RIGHT 1 VIEW Result Date: 02/17/2024 FINDINGS/IMPRESSION: 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 No periprosthetic fracture is seen. No acute left hip abnormality is seen. Atherosclerotic calcifications arepresent bilaterally. [id number] XR HIP LEFT 1 VIEW Result Date: 02/17/2024 FINDINGS/IMPRESSION: 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 No periprosthetic fracture is seen. No acute left hip abnormality is seen. Atherosclerotic calcifications arepresent bilaterally. [id number] CT ANGIO CHEST PE PROTOCOL Result Date: [...] above interpretation and agree with the findings. [id number] XR HIP RIGHT 1 VIEW Result Date: 02/16/2024 Findings/impression: Redemonstrated right femoral neck fracture, not significantly changed. No left-sided hip fracture or dislocation. Mild degenerative changes of the left hip. The soft tissues are unremarkable. [id number] XR HIP LEFT 2-3 VIEWS OPTIONAL PELVIS Result Date: 02/16/2024 Findings/impression: Redemonstrated right femoral neck fracture, not significantly changed. No left-sided hip fracture or dislocation. Mild degenerative changes of the left hip. The soft tissues are unremarkable. [id number] XR CHEST PORTABLE 1 VIEW Result Date: 02/16/2024 Small bilateral pleural effusions. Slight interval increase in patchy airspace opacities at both lung bases and in the suprahilar right lung. [id number] Assessment/Plan Assessment Noe Sue is a 83 y.o. male with a PMHx of COPD (3-5L home oxygen), possible AF (he denies ever being told he has AF), GERD, and HTN, who was transferred from [facility] to [facility] [place] then [facility] for surgical management of a right [...] Symbicort q12h (LABA/ICS), spiriva daily to replace DISABILITY ADVOCATE LAMA - Prednisone to 40 mg daily since 02/18 (Pt has received 2x 40mg 02/14-02/15 and 2x 30 mg prednisone 02/17 -02/18), duration tbd by respiratory status. - Hold DISABILITY ADVOCATE Anoro Ellipta (LAMA/LABA) - Wean off of supplemental O2 as tolerated - Maintain SpO2 88-92% - RT following, airway clearance - On discharge would need good pulmonology FU, could benefit from pulmonary rehab. 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 Multiple doses of IV lasix given, titrated to kidney function and respiratory function. - Oral diuresis with lasix 20mg, will consider as longer term maintenance dosing. CHRISTIANO Improving. Patient's creatinine on admission 2.54, baseline Cr about 1 per note from [facility]. - Daily BMP - Strict I/Os Afib with RVR Patient denies h/o AF or taking eliquis, but report from [facility] said his last dose of eliquis was 02/13). EDGAR-VASc score of 4 with 4.8% stroke risk. - Started Eliquis 2.5mg BID (dose reduced given pt's advanced age, serum Cr., and weight) - Dc'd Telemetry monitoring d/t stable rate control over the past several days, low threshold to restart if rates sustained >110. - Continue DISABILITY ADVOCATE metoprolol XL 25 mg daily Right femoral [...] referral to the Fracture Liaison Service with [facility] Endocrinology - Lewis catheter placed due to urinary retention - Vit D 2000U/d Chronic: HTN - Cont DISABILITY ADVOCATE metoprolol XL 25 mg daily - Holding DISABILITY ADVOCATE amlodipine 10 mg daily GERD - DISABILITY ADVOCATE pantoprazole 40/d Constipation - Miralax BID, senna [...] 12:50 * Farnaz Sanchez NP - 02/22/2024 0845 EST ORTHO CHAVA BRIEF NOTE Chart reviewed and patient's vitamin D noted to be 38 on admission for hip fracture from ground-level fall. Recommend discharging on 2000 IU vitamin D3 daily per orthopedic trauma service protocol. Referral for postoperative orthopedic follow up at 6 week post op and to the Fracture Liaison Serviceat [facility] endocrinology placed today. The above was discussed with the primary team. Farnaz Sanchez NP Ortho Trauma Pager [phone] * Russell Rodriguez MD - 02/22/2024 6296 EST Orthopaedic Surgery Progress Note Admit Date: [...] straight leg raise Labs: WBC/Hgb/Hct/Plts: 15.67/10.6/31.7/196 (02/20 0958) Na/K/Cl/CO2: 138/4.1/95/34 (02/20 958) BUN/Cr/glu/ALT/AST/amyl/lip: 54/1.38/190/--/--/--/-- (02/20 [...] REGULAR PT/OT: TANI Dispo: Pending medicine, TANI Rodriguez MD 02/21/24 18:56 Orthopaedic Surgery, PGY-2 Pager [phone] Cosigned by Jareth Jim MD at 02/22/2024 17:43 EST Associated attestation - Jareth Jim MD - 02/22/2024 1743 EST Attestation statement: I discussed the patient with the resident/fellow at the time of the visit. Shantelgree with the findings and the plan of [...] a small amount of thick, zheng/white sputum. [id number] 90's when patient is resting with dips down to high 80's when he is moving his arms around and shifting in bed. GONZALEZ EPPS, RT 02/21/2024 16:47 * Andie Cheema, RD - 02/21/2024 1334 EST Nutrition Assessment Note: [...] effusions and bibasilar opacities compatible with atelectasis. [id number] XR HIP RIGHT 1 VIEW Result Date: 02/17/2024 FINDINGS/IMPRESSION: 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 No periprosthetic fracture is seen. No acute left hip abnormality is seen. Atherosclerotic calcifications arepresent bilaterally. [id number] XR HIP LEFT 1 VIEW Result Date: 02/17/2024 FINDINGS/IMPRESSION: 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 No periprosthetic fracture is seen. No acute left hip abnormality is seen. Atherosclerotic calcifications arepresent bilaterally. [id number] CT ANGIO CHEST PE PROTOCOL Result Date: [...] above interpretation and agree with the findings. [id number] XR HIP RIGHT 1 VIEW Result Date: 02/16/2024 Findings/impression: Redemonstrated right femoral neck fracture, not significantly changed. No left-sided hip fracture or dislocation. Mild degenerative changes of the left hip. The soft tissues are unremarkable. [id number] XR HIP LEFT 2-3 VIEWS OPTIONAL PELVIS Result Date: 02/16/2024 Findings/impression: Redemonstrated right femoral neck fracture, not significantly changed. No left-sided hip fracture or dislocation. Mild degenerative changes of the left hip. The soft tissues are unremarkable. [id number] XR CHEST PORTABLE 1 VIEW Result Date: 02/16/2024 Small bilateral pleural effusions. Slight interval increase in patchy airspace opacities at both lung bases and in the suprahilar right lung. [id number] Assessment/Plan Assessment Noe Sue is a 83 y.o. male with a PMHx of COPD (3-5L home oxygen), possible AF (he denies ever being told he has AF), GERD, and HTN, who was transferred from [facility] to [facility] [place] then [facility] for surgical management of a right [...] 5 days course completed, last dose 02/18. Pt continue to require supplemental oxygen, currently on 40%/12L HFNC. Patient is slowly improving. - Duoneb q6h - Continue Symbicort q12h (LABA/ICS), spiriva daily to replace DISABILITY ADVOCATE LAMA - Prednisone to 40 mg daily since 02/18 (Pt has received 2x 40mg 02/14-02/15 and 2x 30 mg prednisone 02/17 -02/18), duration tbd by respiratory status. - Hold DISABILITY ADVOCATE Anoro Ellipta (LAMA/LABA) - Wean off of supplemental O2 as tolerated - Maintain SpO2 88-92% - RT following, airway clearance - On discharge would need good pulmonology FU, could benefit from pulmonary rehab. Severe pulmonary HTN with RV failure Suspect group 3 pulm HTN (2/2 lung disease) S/p lasix 160 mg and 5 mg metolazone 02/16/24 at [facility] prior to transfer and 100 mg at [facility] with last dose 40 mg yesterday. Patient continue to have a net negative output, and although improved, continue to have respiratory stress, will reevaluate need for additional diuresis based on lab results - Repeat diuresis with Furosemide 40mg IV 02/20 CHRISTIANO Slight increase in Cr after downtrending. Patient's creatinine on admission 2.54, baseline Cr about 1 per note from [facility]. Hard to determine if worsening of CHRISTIANO is driven by hypo- or hypervolemia.Evaluating decision of diuresis daily based on creatinine. - Daily BMP - Strict I/Os Afib with RVR (Patient denies h/o AF or taking eliquis, but report from [facility] said his last dose of eliquis was 02/13). EDGAR-VASc score of 4 with 4.8% stroke risk. - Started Eliquis 2.5mg BID (dose reduced given pt's advanced age, serum Cr., and weight) - Ortho agrees with plan - Telemetry monitoring (multiple Afib episodes) - Continue DISABILITY ADVOCATE metoprolol XL 25 mg daily Right femoral [...] Vit D 1000U/d Chronic: HTN - Cont DISABILITY ADVOCATE metoprolol XL 25 mg daily - Holding DISABILITY ADVOCATE amlodipine 10 mg daily GERD - DISABILITY ADVOCATE pantoprazole 40/d Constipation - Miralax BID, senna [...] kg (128 lb), SpO2 (!) 85%. 02/18 0700 - 02/19 0659 In: 1080 [P.O.:1080] Out: 1575 [Urine:1575] General: No acute distress Cardio: Appears well perfused Respiratory: Non-labored Focused MSK: RLE Dressings clean, dry, and intact. Sensation intact to light touch in peripheral nerve distributions: DP/SP/T/S/S 5/5 EHL; 5/ TA; 5 GSC Labs: WBC/Hgb/Hct/Plts: 14.61/11.0/32.8/167 (02/19 1007) Na/K/Cl/CO2: [...] PT/OT: TANI Dispo: Pending medical status; TANI Rodriguez MD 02/20/24 12:42 Orthopaedic Surgery, PGY-2 Pager [phone] Cosigned by Nigel Brock MD at 02/21/2024 21:58 EST * Lily Carrillo, RT - 02/20/2024 1629 EST Respiratory Progress [...] REASON FOR ADMISSION: Acute hypoxic respiratory failure (HCC-CMS) Patient understands reason for admission: PATIENT INFO VERIFIED: Contact Info, Address Type of housing (single family, condo, apartment, prison, single room occupancy, [facility] funded hotel room, group senior care) - [facility] Who does the patient live [...] the patient? Spouse / significant other Is /7 care available? ADVANCED DIRECTIVES, POA &/or COLST IN PLACE: Healthcare Directive: No, patient does not have advance directive for healthcare treatment DIRECTIVES FOR FINANCES: TRANSPORTATION: Transportation: Family Does the patient need discharge transport arranged?: No Expected Discharge on IV Antibiotics: No Final Discharge Destination: home with CULTURAL, BAHAI and/or LANGUAGE factors affecting health care/discharge planning: [...] device: Crutch/Walker Community Services: Home health, MOW, SAS-none of one time a week Will you [...] PT/OT, Nurse visit DME Provider: Darrel Pharmacy: [id number] - [place], [place] - [address] AT [address] [place] [address] Home Health: [facility] Other: POST HOSPITAL TRANSITION PLAN: Noe Sue is a 83 y.o. male with a PMHx of COPD (3-5L home oxygen), possible AF (he denies ever being told he has AF), GERD, and HTN, who was transferred from [facility] and then [facility] for surgical management of a right femoral neck fracture in the setting of acute on chronic respiratory failure and severe PaHTN. Patient is stable, still requiring significant supplemental oxygen requiring hospitalization. CM met with patient in room to introduce self and CM role. Patient appeared A&Ox3, and noted significant discomfort, KIVALINA. Patient reported that he lives with his partener, Gretchen, who is able toprovide support as needed. He stated that he uses a walker and sometimes a wheelchair at home, and has all the stuff he needs for DME. Patient reported that he was receiving SN and PT services from [facility] prior to hospitalization. CM confirmed with agency that they will need resumption of services noted in d/c summary, and notification of his discharge date when determined. Patient's home 02 supplier is [facility]. His family will be able to provide transportation at discharge. Pt enrolled in M2B. CM will continue to follow and coordinate a safe discharge. TAMMY Navarrete Spinner Operator II Epic chat preferred. 02/20/2024 12:04 JULIANNE PASCAL 02/20/2024 11:55 * Laine Coe, PT - 02/20/2024 1125 EST [facility] Rehabilitation Therapy Acute Therapy [facility] Physical Therapy Initial Evaluation Note Date of [...] 02/16/2024 secondary to Acute hypoxic respiratory failure ([facility]). The patient lives at [address] [place] [address] History of Present Illness / Injury Current Illness / Injury: per MD:Noe Sue is a 83 y.o. male with a PMHx of COPD (3-5L home oxygen), possible AF (he denies ever being told he has AF), GERD, and HTN, who was transferred from [facility] to [facility] and then [facility] for surgical management of a right [...] Nurse When: Prior to therapy session By: Eecz-we-weor communication Additional communication about Patient Status and [...] by the physical therapist and/or physical therapist patient care assistant when medically appropriate Frequency: 1-3 times/week [...] dilaudid for pain. Labs Reviewed: Recent Labs 02/18/24 0628 02/19/24 1127 WBC 13.90* 12.57* HGB 11.0* 11.5* HCT 32.3* 33.2* PLT 125* 148 Recent Labs 02/18/24 0628 02/19/24 1127 NA 134* 136 K 4.5 4.7 CL 97 96 CO2 36* 35* BUN 70* 70* CREATININE 2.11* 1.86* Imaging Reviewed: XR CHEST PORTABLE 1 VIEW Result Date: 02/18/2024 Bilateral small pleural effusions and bibasilar opacities compatible with atelectasis. [id number] XR HIP RIGHT 1 VIEW Result Date: 02/17/2024 FINDINGS/IMPRESSION: 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 No periprosthetic fracture is seen. No acute left hip abnormality is seen. Atherosclerotic calcifications arepresent bilaterally. [id number] XR HIP LEFT 1 VIEW Result Date: 02/17/2024 FINDINGS/IMPRESSION: 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 No periprosthetic fracture is seen. No acute left hip abnormality is seen. Atherosclerotic calcifications arepresent bilaterally. [id number] CT ANGIO CHEST PE PROTOCOL Result Date: [...] above interpretation and agree with the findings. [id number] XR HIP RIGHT 1 VIEW Result Date: 02/16/2024 Findings/impression: Redemonstrated right femoral neck fracture, not significantly changed. No left-sided hip fracture or dislocation. Mild degenerative changes of the left hip. The soft tissues are unremarkable. [id number] XR HIP LEFT 2-3 VIEWS OPTIONAL PELVIS Result Date: 02/16/2024 Findings/impression: Redemonstrated right femoral neck fracture, not significantly changed. No left-sided hip fracture or dislocation. Mild degenerative changes of the left hip. The soft tissues are unremarkable. [id number] XR CHEST PORTABLE 1 VIEW Result Date: 02/16/2024 Small bilateral pleural effusions. Slight interval increase in patchy airspace opacities at both lung bases and in the suprahilar right lung. [id number] Assessment/Plan Assessment Noe Sue is a 83 y.o. male with a PMHx of COPD (3-5L home oxygen), possible AF (he denies ever being told he has AF), GERD, and HTN, who was transferred from [facility] to [facility] and then [facility] for surgical management of a right [...] Symbicort q12h (LABA/ICS), spiriva daily to replace DISABILITY ADVOCATE LAMA - Hold DISABILITY ADVOCATE Anoro Ellipta (LAMA/LABA) - Wean off of [...] mg and 5 mg metolazone 02/16/24 at [facility] prior to transfer and 20 mg at [facility] 02/17. Patient have a net negative output and continue to have respiratory stress, thus might benefit from additional diuresis. - Repeat 40mg IV lasix Afib with RVR (Patient denies h/o AF or taking eliquis, but report from [facility] said his last dose of eliquis was 02/13). EDGAR-VASc score of 4 with 4.8% stroke risk. - Started Eliquis 2.5mg BID (dose reduced given pt's advanced age, serum Cr., and weight) - Ortho agrees with plan - Telemetry monitoring - Continue DISABILITY ADVOCATE metoprolol XL 25 mg daily CHRISTIANO improving, Patient's creatinine on admission 2.54 but has been trending down, baseline Cr about1 per note from [facility] - Daily BMP - Strict I/Os - [...] Vit D 1000U/d Chronic: HTN - Cont DISABILITY ADVOCATE metoprolol XL 25 mg daily - Holding DISABILITY ADVOCATE amlodipine 10 mg daily GERD - DISABILITY ADVOCATE pantoprazole 40/d Constipation - Miralax BID, senna [...] straight leg raise. Labs: WBC/Hgb/Hct/Plts: 12.57/11.5/33.2/148 (02/18 112) Na/K/Cl/CO2: 136/4.7/96/35 (02/18 1127) BUN/Cr/glu/ALT/AST/amyl/lip: 70/1.86/149/--/--/--/-- (02/18 1127) PT/INR/PTT: 11.2/1.0/-- (02/16 114) Assessment: Noe Sue is a 83 y.o. [...] MD 02/19/24 17:42 Orthopaedic Surgery, PGY-2 Pager [phone] Cosigned by Jareth iJm MD at 02/20/2024 7:36 EST Associated attestation [...] 13:10 * Cuco Vazquez MD - 02/19/2024 0769 EST Medicine Progress Note Service Date: 02/19/2024 [...] Date 02/19/24 0700 - 02/20/24 0659 Shift [id number] 2745-3745 0515-0195 24 Hour Total INTAKE P.O. 360 360 Shift Total(mL/kg) 360(6.8) 360(6.8) OUTPUT Urine(mL/kg/hr) 200 200 Shift Total(mL/kg) 200(3.8) 200(3.8) Weight (kg) 53.1 53.1 53.1 53.1 Net = - 423.2 ml Medications Reviewed. Labs Reviewed: Recent Labs 02/16/24169902/17/24 0502/18/24 06 WBC 19.76* 16.70* 13.90* HGB 12.5* 11.7* 11.0* HCT 37.3* 33.7* 32.3* PLT 130* 128* 125* Recent Labs 02/16/24169902/17/24 0502/18/2428 NA 140 134* 134* K 5.2* 4.4 4.5 CL 97 100 97 CO2 36* 30 36* BUN 70* 69* 70* CREATININE 2.54* 2.08* 2.11* Imaging Reviewed: XR CHEST PORTABLE 1 VIEW Result Date: 02/18/2024 Bilateral small pleural effusions and bibasilar opacities compatible with atelectasis. [id number] XR HIP RIGHT 1 VIEW Result Date: 02/17/2024 FINDINGS/IMPRESSION: 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 No periprosthetic fracture is seen. No acute left hip abnormality is seen. Atherosclerotic calcifications arepresent bilaterally. [id number] XR HIP LEFT 1 VIEW Result Date: 02/17/2024 FINDINGS/IMPRESSION: 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 No periprosthetic fracture is seen. No acute left hip abnormality is seen. Atherosclerotic calcifications arepresent bilaterally. [id number] CT ANGIO CHEST PE PROTOCOL Result Date: [...] above interpretation and agree with the findings. [id number] XR HIP RIGHT 1 VIEW Result Date: 02/16/2024 Findings/impression: Redemonstrated right femoral neck fracture, not significantly changed. No left-sided hip fracture or dislocation. Mild degenerative changes of the left hip. The soft tissues are unremarkable. [id number] XR HIP LEFT 2-3 VIEWS OPTIONAL PELVIS Result Date: 02/16/2024 Findings/impression: Redemonstrated right femoral neck fracture, not significantly changed. No left-sided hip fracture or dislocation. Mild degenerative changes of the left hip. The soft tissues are unremarkable. [id number] XR CHEST PORTABLE 1 VIEW Result Date: 02/16/2024 Small bilateral pleural effusions. Slight interval increase in patchy airspace opacities at both lung bases and in the suprahilar right lung. [id number] Assessment/Plan Assessment Noe Sue is a 83 y.o. male with a PMHx of COPD (3-5L home oxygen), possible AF (he denies ever being told he has AF), GERD, and HTN, who was transferred from [facility] to [facility] and then [facility] for surgical management of a right [...] q12h (LABA/ICS), add spiriva daily to replace DISABILITY ADVOCATE LAMA - Hold DISABILITY ADVOCATE Anoro Ellipta (LAMA/LABA) - Wean off of [...] mg and 5 mg metolazone 02/16/24 at [facility] prior to transfer and 20 mg at [facility] 02/17. Patient have a net negative output and continue to have respiratory stress, thus might benefit from additional diuresis. - Furosemide 40 mg ordered nowx1 02/18 Afib with RVR (Patient denies h/o AF or taking eliquis, but report from [facility] said his last dose of eliquis was 02/13). EDGAR-VASc score of 4 with 4.8% stroke risk. - Start Eliquis 2.5mg BID (dose reduced given pt's advanced age, serum Cr., and weight) - Ortho agrees with plan - Telemetry monitoring - Continue DISABILITY ADVOCATE metoprolol XL 25 mg daily CHRISTIANO improving, Patient's creatinine on admission 2.54 but has been trending down, baseline Cr about1 per note from [facility] - Daily BMP - Strict I/Os Right [...] level (cont supplement) Chronic: HTN - Cont DISABILITY ADVOCATE metoprolol XL 25 mg daily - Holding DISABILITY ADVOCATE amlodipine 10 mg daily GERD - DISABILITY ADVOCATE pantoprazole Constipation - Stool softer VTE Prophylaxis: apixaban 2.5mg BID Code status: Limitation of Treatment DNR Do not intubate (DNI) Bessy Dewitt MS3 I reviewed with the medical student the history, exam, and medical decision making documented. I have edited the medical student note as appropriate. Abhi Vega, Neurology PGY-1 Epic Chat*, PAGE [phone] 02/19/24 11:55 Attending Attestation The resident was [...] PGY3 Department of Orthopedics 02/19/24 4:03 Pager [phone] Cosigned by Jareth Jim MD at 02/19/2024 8:33 EST Associated attestation - Jareth Jim MD - 02/19/2024 0833 EST Attestation statement: I discussed the patient with the resident/fellow at the time of the visit. Shantelgree with the findings and the plan of care documented in the resident's/fellow's note. * Milly Francis RT - 02/18/2024 1554 EST Respiratory Consult/Progress [...] Add LDA for any identified wounds Add [place] image for any suspected PI or non surgical wounds Order wound consult if suspected PI identified If Hernando is < or = to 16, initiate Pressure Injury Prevention Bundle ([id number]). 02/18/2024 14:56 * Seven Escalante, RT - 02/18/2024 1333 EST Images from the original note were not included. Respiratory Progress Note Indications for Respiratory therapy: COPD increased O2 requirement Data Vitals: Heart Rate: 85 BPM, Resp: 18, SpO2: 92 % FIO2/O2 Device: 6 lpm NC, , O2 Device: Nasal cannula, RT Orders: 02/18/24 1700 Airway Clearance Therapy [[id number]] 4 TIMES DAILY Discontinue Reschedule 02/18/24 1333 [...] sat Response/Results Weaning and Toleration of treatments; Filippo well SEVEN ESCALANTE, 02/18/24 * Lili Inman RN - 02/18/2024 [...] MSK: RLE: Dressing C/D/I SILT S/S/DP/SP/T Motor: 08/12 TA/GS/FHL/EHL/Quads/hamstring/Iliopsoas DP +2, toes warm/well-perfused Labs: WBC/Hgb/Hct/Plts: 16.70/11.7/33.7/128 (02/16 558) Na/K/Cl/CO2: 134/4.4/100/30 (02/16 558) BUN/Cr/glu/ALT/AST/amyl/lip: 69/2.08/108/49/36/--/-- (02/16 558) PT/INR/PTT: 11.2/1.0/-- (02/16 1141) Assessment: Noe Sue is a 83 y.o. male with past medical history significant for COPD with chronic hypoxic respiratory failure (3-5L O2 at baseline), Atrial fibrillation on aspirin, who presents to transfer initially from [facility] after a fall and whom [...] Associated attestation - Augustine Ceja MD - 02/19/20242107 EST Attestation: I performed or was present during the marsh or critical portions of the visit and participated in the management of the patient on 02/16/24. I agree with the findings and plan of care as documented in the resident's/fellow's note. Augustine Ceja MD 02/19/2024 21:08 * Pete Lee DO - 02/18/2024 0621 EST MEDICAL INTENSIVE [...] on VTE prophylaxis with heparin [facility] Noe says that he feels fine today. Endorses [...] 1519 02/16/24 0536 02/16/24 1700 02/17/24 0558 02/18/24 0628 WBC 21.84* < > [...] this interval not displayed. BMP: Recent Labs 02/16/24 1700 02/17/24 0558 02/18/24 0628 NA 140 134* 134* K 5.2* 4.4 4.5 CL 97 100 97 CO2 36* 30 36* BUN 70* 69* 70* CREATININE 2.54* 2.08* 2.11* CALCIUM 9.1 8.7 8.2* MG -- 2.1 -- LABALBU 3.0* 2.8* 2.7* LFT: Recent Labs 02/16/24 1700 02/17/24 0558 02/18/24 0628 TBIL 0.6 0.5 <0.5 [...] abnormality is seen. Atherosclerotic calcifications arepresent bilaterally. [id number] XR HIP LEFT 1 VIEW Result Date: 02/17/2024 FINDINGS/IMPRESSION: 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 No periprosthetic fracture is seen. No acute left hip abnormality is seen. Atherosclerotic calcifications arepresent bilaterally. [id number] CT ANGIO CHEST PE PROTOCOL Result Date: [...] above interpretation and agree with the findings. [id number] XR HIP RIGHT 1 VIEW Result Date: 02/16/2024 Findings/impression: Redemonstrated right femoral neck fracture, not significantly changed. No left-sided hip fracture or dislocation. Mild degenerative changes of the left hip. The soft tissues are unremarkable. [id number] XR HIP LEFT 2-3 VIEWS OPTIONAL PELVIS Result Date: 02/16/2024 Findings/impression: Redemonstrated right femoral neck fracture, not significantly changed. No left-sided hip fracture or dislocation. Mild degenerative changes of the left hip. The soft tissues are unremarkable. [id number] XR CHEST PORTABLE 1 VIEW Result Date: 02/16/2024 Small bilateral pleural effusions. Slight interval increase in patchy airspace opacities at both lung bases and in the suprahilar right lung. [id number] Medications: Scheduled: acetaminophen, 1,000 mg, Q6H aspirin [...] GERD, and hypertension, who was transferred from [facility] to [facility] and then [facility] for preoperative optimization for surgicalmanagement of a right femoral neck fracture. Hospital course at [facility] complicated by acute on chronic hypoxic hypercapenic respiratory failure 2/2 COPD exacerbation vs. community acquired pneumonia. Found to have pulmonary HTN and severe RV dilation with evidence of volume overload, s/p IV diuresis. Started on HFNC at [facility] and then [facility] for monitoring prior to going [...] O2 as tolerated -Maintain SpO2 88-92% -Replace DISABILITY ADVOCATE Anoro Ellipta with Symbicort -Prednisone 40mg daily, decrease to 30mg daily (02/14-02/18) -Duoneb q6h -Ceftriaxone + doxycycline (02/14 - 02/18) -CTA PE 02/15: No evidence of PE, patchy opacity in peripheral RML, lingula, posterior segment or RUL -Bilateral pleural effusions, atherosclerosis of thoracic aorta and coronary artery/aortic valve ID Possible COPDe vs community acquired pneumonia Was started on CAP coverage at [facility]. Legionella, strep pneumo and MRSA negative. Procal [...] mg and 5 mg metolazone 02/16/24 at [facility] prior to transfer - No additional diuresis 02/16 or 02/17 CV risk assessment Surgery is urgent with hip surgery classified as intermediate risk - Orta RCRI: 2-3 points depending on whether you define Tn elevation as a type II IL or myocardial injury (additional points for heart failure, Cr >2 mg/dL). My opinion is that this is simply myocardial injury in the context of RV strain and heart failure but this is impossible to prove. - Overall this indicates elevated risk (/IL/arrest of ~10-15% within a month of surgery) [...] he is taking eliquis, but report from [facility] said his last dose of eliquis was 02/13.S/p dilt drip at [facility]. -Telemetry monitoring -Trend lytes and replete (Mag >2) -Rate control goal < 110 -DISABILITY ADVOCATE ASA 81mg daily -Discontinue amiodarone gtt -Resume DISABILITY ADVOCATE metop succinate 25mg daily #Myocardial injury in the context of RV strain Suspect 2/2 demand ischemia, trop trending down. -Telemetry monitoring #HTN -Resume DISABILITY ADVOCATE metoprolol succinate 25mg daily -Hold DISABILITY ADVOCATE amlodipine 10mg daily GI #GERD -DISABILITY ADVOCATE pantoprazole Hemeonc #Leukocytosis, improving Likely iso possible [...] REGULAR VTE Prophylaxis: Heparin SC GI Prophylaxis: DISABILITY ADVOCATE PPI Code status: Limitation of Treatment DNR Do not intubate (DNI) Disposition/discharge planning: Plan to transfer to the floor later this afternoon Pete Lee DO PGY-2 Internal Medicine 02/18/2024 10:02 Cosigned by Ritesh Cardenas MD at 02/18/2024 13:37 EST Associated attestation - Ritesh Cardenas MD - 02/18/2024 8007 EST Attestation: I performed or was present [...] femoral neck fracture Significant 24-hour events: - IRAEO SUBJECTIVE Notes some ongoing dyspnea, but remarks [...] Recent Labs 02/15/24 1519 02/16/24 0537 02/16/24 1700 02/17/24 0558 NA 136 134* 140 134* K 5.3* 5.3* 5.2* 4.4 CL 102 99 97 100 CO2 22 29 36* 30 BUN 65* 70* 70* 69* CREATININE 2.50* 2.30* 2.54* 2.08* CALCIUM 8.1* 7.8* 9.1 8.7 MG -- -- -- 2.1 LABALBU 3.1* -- 3.0* 2.8* LFT: Recent Labs 02/15/24 1519 02/16/24 1700 02/17/24 0558 TBIL 0.7 0.6 0.5 ALKPHOS 109 104 83 AST 49* 32 36 ALT 68* 50* 49 Coagulation: Recent Labs 02/16/24 1700 02/17/24 1141 PROTIME 11.3 11.2 INR 1.0 1.0 PTT 20* -- Cardiac Markers: Recent Labs 02/15/24 1519 02/15/24 1751 02/16/24 0135 02/16/24 0537 02/16/24 0934 CK 272* -- -- 114 -- TROPONINI -- 0.403* 0.323* -- 0.244* Hemoglobin A1c: Recent Labs 02/16/24 1700 HGBA1C 6.1* Imaging: CT ANGIO CHEST [...] above interpretation and agree with the findings. [id number] XR HIP RIGHT 1 VIEW Result Date: 02/16/2024 Findings/impression: Redemonstrated right femoral neck fracture, not significantly changed. No left-sided hip fracture or dislocation. Mild degenerative changes of the left hip. The soft tissues are unremarkable. [id number] XR HIP LEFT 2-3 VIEWS OPTIONAL PELVIS Result Date: 02/16/2024 Findings/impression: Redemonstrated right femoral neck fracture, not significantly changed. No left-sided hip fracture or dislocation. Mild degenerative changes of the left hip. The soft tissues are unremarkable. [id number] XR CHEST PORTABLE 1 VIEW Result Date: 02/16/2024 Small bilateral pleural effusions. Slight interval increase in patchy airspace opacities at both lung bases and in the suprahilar right lung. [id number] Medications: Scheduled: [Transfer Hold] acetaminophen, 1,000 mg, [...] GERD, and hypertension, who was transferred from [facility] to [facility] and then [facility] for preoperative optimization for surgicalmanagement of a right femoral neck fracture. Hospital course at [facility] complicated by acute on chronic hypoxic hypercapenic respiratory failure 2/2 COPD exacerbation vs. community acquired pneumonia. Found to have pulmonary HTN and severe RV dilation with evidence of volume overload and diuresed. Started on HFNC at [facility] and then transferred to [facility] for monitoring overnight prior to [...] O2 as tolerated -Maintain SpO2 88-92% -Replace DISABILITY ADVOCATE Anoro Ellipta with Symbicort -Prednisone 40mg daily x5 days (02/14-02/18) -S/p lasix 160 mg and 5 mg metolazone at [facility] prior to transfer -Duoneb q6h -Ceftriaxone + doxycycline (02/14 - ) -CTA PE 02/15: No evidence of PE, patchy opacity in peripheral RML, lingula, posterior segment or RUL -Bilateral pleural effusions, atherosclerosis of thoracic aorta and coronary artery/aortic valve ID Possible COPDe vs community acquired pneumonia Was started on CAP coverage at [facility]. Legionella, strep pneumo and MRSA negative. Procal [...] mg and 5 mg metolazone 02/16/24 at [facility] prior to transfer - Will hold off [...] define Tn elevation as a type II IL or myocardial injury (additional points for heart failure, Cr >2 mg/dL). My opinion is that this is simply myocardial injury in the context of RV strain and heart failure but this is impossible to prove. - Overall this indicates elevated risk (/IL/arrest of ~10-15% within a month of surgery) [...] he is taking eliquis, but report from [facility] said his last dose of eliquis was 02/13.S/p dilt drip at [facility]. -Telemetry monitoring -Trend lytes and replete (Mag >2) -Rate control goal < 110 -DISABILITY ADVOCATE ASA 81mg daily -Amiodarone gtt continue at 0.5 -UFH level and coags - Will discuss with ortho after OR regarding DVT ppx vs full dose AC #Myocardial injury in the context of RV strain Suspect 2/2 demand ischemia, trop trending down. -Telemetry monitoring #HTN -Hold DISABILITY ADVOCATE metoprolol succinate 25mg daily -Hold DISABILITY ADVOCATE amlodipine 10mg daily GI #GERD -DISABILITY ADVOCATE pantoprazole Hemeonc #Leukocytosis, improving Likely iso possible [...] Will start after OR today GI Prophylaxis: DISABILITY ADVOCATE PPI Code status: Limitation of Treatment DNR Do not intubate (DNI) Disposition/discharge planning: Pending operative/clinical course Admission status Inpatient admission due to anticipated duration of hospitalization is two midnights or greater due to Acute hypoxic respiratory failure. Hema Cazares MD Internal Medicine, PGY-2 Epic Chat (prefer) Pgr#[phone] Attending attestation statement: I saw and examined [...] 1. Closed right hip fracture, initial encounter ([facility]) Critical Care time was provided in the [...] Ale Bruce - 02/17/2024 1137 EST [facility] Spiritual Care Note Re: Noe Sue : 1940, AGE: 83 y.o. ROOM: [place] [address] BACKGROUND Referral visit. Patient appeared having hard time to hear. Patient said he was okay and no need to talk a centerless grinding machine adjuster or a senior business process analyst at that time. Patient had a visitor, his granddaughter. INTERVENTIONS Presence Introducing spiritual care CARE PLAN Continued centerless grinding machine adjuster visit if needed RECOMMENDATIONS: None Matheus Napier [facility] [employer] Jareth [phone] Thank you for the opportunity to provide for this patient's/family's spiritual needs. * Farnaz Moreno RT - 02/17/2024 0957 EST Respiratory Progress Note Indications for Respiratory [...] 02/17/24 * Daniel Varghese MD - 02/17/2024 0567 EST Orthopaedic Progress Note Pt Name: Noe [...] Focused MSK: RLE: No gross abnormalities Motor: 08/12 TA/GS/FHL/EHL DP +2, toes warm/well-perfused Labs: WBC/Hgb/Hct/Plts: 19.76/12.5/37.3/130 (02/15 1700) Na/K/Cl/CO2: 140/5.2/97/36 (02/15 1700) BUN/Cr/glu/ALT/AST/amyl/lip: 70/2.54/179/50/32/--/-- (02/15 1700) PT/INR/PTT: 11.3/1.0/20 (02/15 1700) A: Noe Sue is a 83 y.o. male with past medical history significant for COPD with chronic hypoxic respiratory failure (3-5L O2 at baseline), Atrial fibrillation on aspirin, who presents to transfer initially from [facility] after a fall and whom orthopedics was consulted for a right femoral neck fracture. Plan for operative management today. P: OR today for open treatment of right hip fracture WB -bedrest Lewis Abx - 2g Ancef preparation supervisor canning to the OR DVT prophylaxis -asked to [...] Add LDA for any identified wounds Add [place] image for any suspected PI or non surgical wounds Order wound consult if suspected PI identified If Hernando is < or = to 16, initiate Pressure Injury Prevention Bundle ([id number]). 02/16/2024 18:43 * Morenita Yee, RT - 02/16/2024 1623 EST Respiratory Consult/Progress [...] decreased Response: Mild response, increase subjective per STOCK LETTERER Pulse: >100 Resp Rate: 18-25 SOB: At [...] home as needed; Do not see on DISABILITY ADVOCATE meds. Duoneb given per order. RT RANDI 02/16/24 documented in this encounter H&P Notes * Ritesh Cardenas MD - 02/16/2024 4917 EST MICU Admission History & Physical Service Date: 02/16/2024 Admit Date: 02/16/2024 15:41 Primary Care Provider: SUZIE VILLAGOMEZ Chief Complaint: Fall HPI Noe Sue is a 83 y.o. male with a PMHx of HTN, GERD, COPD (on 3-5 L NC baseline) and atrial fibrillation (unclear if on AC), who presented to [facility] s/p fall andwas found to have R [...] chest pain, shortness of breath, or cough. [facility] ED labs notable for WBC 22, procal 3, creatinine 3 (baseline ~1), and potassium 6. He was subsequently transferred to [facility] 02/14 for surgical management. On arrival, temp [...] -->0.244. He was confirmed DNR/DNI. Transferred from [facility] to [facility] for preoperative optimization. On arrival to [facility], Noe says that he feels exhausted. [...] bases and in the suprahilar right lung. [id number] TTE 02/16/24: Left Ventricle: Left ventricular systolic [...] GERD, and hypertension, who was transferred from [facility] to [facility] and then [facility] for preoperative optimization for surgicalmanagement of a right femoral neck fracture. Hospital course at [facility] complicated by acute on chronic hypoxic hypercapenic respiratory failure 2/2 COPD exacerbation vs. community acquired pneumonia. Found to have pulmonary HTN and severe RV dilation with evidence of volume overload and diuresed. Started on HFNC at [facility] and then transferred to [facility] for monitoring overnight prior to [...] O2 as tolerated -Maintain SpO2 88-92% -Replace DISABILITY ADVOCATE Anoro Ellipta with Symbicort -Prednisone 40mg daily x5 days (02/14-02/18) -S/p lasix 160 mg and 5 mg metolazone early today at [facility] prior to transfer -Duoneb q6h -Ceftriaxone + doxycycline (02/14 - ) -CTA PE Effusions are small and risk>benefit for thoracentesis at this point in time Wean O2 as able ID Possible COPDe vs community acquired pneumonia Was started on CAP coverage at [facility]. Legionella, strep pneumo and MRSA negative. Procal [...] and 5 mg metolazone early today at [facility] prior to transfer -Strict I/Os -Goal net [...] define Tn elevation as a type II IL or myocardialinjury (additional points for heart failure, Cr >2 mg/dL). My opinion is that this is simply myocardial injury in the context of RV strain and heart failure but this is impossible to prove. Overall this indicates elevated risk (/IL/arrest of ~10-15% within a month of surgery) [...] he is taking eliquis, but report from [facility] said his last dose of eliquis was 02/13.S/p [place] [facility] -Telemetry monitoring -Trend lytes and replete (Mag >2) -Rate control goal < 110 -DISABILITY ADVOCATE ASA 81mg daily -Amiodarone gtt -UFH level and coags Myocardial injury in the context of RV strain Suspect 2/2 demand ischemia, trop trending down. -Telemetry monitoring HTN -Hold DISABILITY ADVOCATE metoprolol succinate 25mg daily -Hold DISABILITY ADVOCATE amlodipine 10mg daily GI GERD -DISABILITY ADVOCATE pantoprazole Hemeonc Leukocytosis, improving Likely iso possible [...] pending upcoming ortho procedure Code: DNR/DNI PETE LEE DO 02/16/2024 18:09 Attending attestation statement: I saw [...] 1. Closed right hip fracture, initial encounter ([facility]) Critical Care time was provided in the [...] home, GERD, hypertension who originally presented to [facility] for hip fracture. Pulmonary Medicine is now [...] been diuresed. He does not have a assembler type bar and segment at this time, although he lives in the [facility] and is interested in establishing care with a assembler type bar and segment there. He is a former smoker, having [...] file Housing Stability: Not At Risk (02/20/2024) [facility] In[facility]ate [facility] Current Living Situation: I [...] home, GERD, hypertension who originally presented to [facility] for hip fracture. Pulmonary Medicine is now [...] lung disease. Would recommend referral to a assembler type bar and segment out in his [place] area. Would be reasonable to start him onStiolto given the different administration mechanism. Further care can be managed outpatient, is appropriate for Oxymizer at rehab. He should preoxygenated with the Oxymizer for several minutes before he gets up and moves around. When he is finally home, would be reasonable candidate for pulmonary r ehab, however will defer to his outpatient assembler type bar and segment that he establishes care to set that [...] Attending Physician Pulmonary Disease-Critical Care Medicine [facility] * Char Martinez MD - 02/16/2024 5733 EST Orthopaedic Surgery Consultation Consultation requested by: Dr. Cardenas for: Right femoral neck fracture HPI: Noe Sue is a 83 y.o. male past medical history significant for COPD with chronic hypoxic respiratory failure (3-5L O2 at baseline), Atrial fibrillation on aspirin, who presents to transfer initially from [facility] for right femoral neck fracture after a fall where he had lab abnormalities with hyperkalemia and leukocytosis with an abnormal procalcitonin, and anesthesia was uncomfortable doing surgery due to the patient's oxygen requirements so he was then transferred to [facility] where his admission was complicated by acute on chronic hypoxic and hypercarbic respiratory failure secondary to COPD exacerbation, and was placed on high flow nasal cannula and had atrial fibrillation with RVR and was placed on a diltiazem infusion and switched to an amio infusion.He had an echo at [facility] that demonstrated severe pulmonary hypertension and he [...] tablet Take 1 Tablet by mouth daily. Art Bey MD metoprolol SUCCinate (TOPROL-XL) 25 mg tablet Take 1 Tablet by mouth daily. Art Bey MD pantoprazole (PROTONIX) 40 mg tablet Take [...] transcervical femoral neck fracture. Assessment: Noe Sue [id number] Noe Sue is a 83 y.o. male with past medical history significant for COPD with chronic hypoxic respiratory failure (3-5L O2 at baseline), Atrial fibrillation on aspirin, who presents to transfer initially from [facility] for right femoral neck fracture after a fallwhere he had lab abnormalities with hyperkalemia and leukocytosis with an abnormal procalcitonin, and anesthesia was uncomfortable doing surgery due to the patient's oxygen requirements so he was then transferred to [facility] where his admission was complicated by acute on chronic hypoxic and hypercarbic respiratory failure secondary to COPD exacerbation, and was placed on high flow nasal cannula and had atrial fibrillation with RVR and was placed on a diltiazem infusion and switched to an amio infusion. He had an echo at [facility] that demonstrated severe pulmonary hypertension and he [...] MD PGY-2 Orthopaedic Surgery 02/16/2024 19:29 Pager #[phone], or EPIC Chat Cosigned by Augustine Ceja MD at 02/17/2024 10:59 EST Associated attestation - Augustine Ceja MD - 02/17/2024 9567 EST Attestation: I performed or was present [...] days ago. He initially was transferred to [facility] from outside hospital for surgery for his right hip. Unfortunately he developed severe respiratory distress from his COPD and was admitted to the ICU on 02/16/2024. Due to the severity of his illness and not being able to undergo spinal anesthesia, request for transfer was made to [facility] for higher level of care. He was then transferred to the ICU at [facility], evaluated and deemed as optimized as possible [...] SERVICE DATE: 02/17/24 SURGEON: Augustine Ceja MD TENNIS PLAYER: DENITA THOMAS MD, Russell Rodriguez MD PREOPERATIVE DIAGNOSIS: Right displaced femoral neck fracture. POSTOPERATIVE DIAGNOSIS: Right displaced femoral neck fracture. PROCEDURE: Right hip cemented unipolar hemiarthroplasty (CPT 55756). ANESTHESIA: Epidural with IV sedation ESTIMATED BLOOD LOSS: 150 mL. FLUIDS: 150 mL crystalloid. URINE OUTPUT: 250 mL. IMPLANTS: Ovid size 4 Accolade C 132 stem, 53 [...] fascia was closed with a combination of [id number] interrupted #1 vicryl and running #1 PDS [...] w/FWW 2 assist, Action: Meds given per MAR, Q2 turns using wedges and pillows, applied [...] using urinal on bedside. Denies pain. On via NC at 4lpm sating at 85-90%. Action: Hourly rounding completed. Medications given as per MAR. Clustered care to promote rest. [id number] done. Safety ensured. Response: Patient able to sleep soundly. VSS. No acute changes during shift. Safety maintained. DESYI STORM RN 02/25/2024 6:09 * Plan of [...] Plan Documentation Outcome: Ongoing Flowsheets (Taken 02/23/2024 0829) Area of Focus: Skin Integrity Goal This [...] pt's 02 satlevels. Response: as of approx 1729 RT has placed pt on VM 40%, [...] GERD, and HTN, who was transferred from [facility] to [facility] and then [facility] forsurgical management of a right femoral [...] this patient. Please contact us via SecureChat ([facility] Wound Care Team) or reconsult for [...] Goals Goal: Care Plan Documentation Flowsheets (Taken 02/19/20241944) Area of Focus: Respiratory Goal This Shift: [...] Plan Documentation Outcome: Ongoing Flowsheets (Taken 02/19/2024 3509) Area of Focus: Respiratory Goal This Shift: [...] Goal: Care Plan Documentation Flowsheets (Taken 02/18/2024 1606) Area of Focus: Respiratory Goal This Shift: [...] 02/18/2024 16:30 * Transfer Summary (Intrafacility) - Marcos Quintero MD - 02/18/2024 1330 EST Transfer [...] 1519 02/16/24 0536 02/16/24 1700 02/17/24 0558 02/18/24 0628 WBC 21.84* < > [...] this interval not displayed. BMP: Recent Labs 02/16/24 1700 02/17/24 0558 02/18/24 0628 NA 140 134* 134* K 5.2* 4.4 4.5 CL 97 100 97 CO2 36* 30 36* BUN 70* 69* 70* CREATININE 2.54* 2.08* 2.11* CALCIUM 9.1 8.7 8.2* MG -- 2.1 -- LABALBU 3.0* 2.8* 2.7* LFT: Recent Labs 02/16/24 1700 02/17/24 0558 02/18/24 0628 TBIL 0.6 0.5 <0.5 [...] abnormality is seen. Atherosclerotic calcifications arepresent bilaterally. [id number] XR HIP LEFT 1 VIEW Result Date: 02/17/2024 FINDINGS/IMPRESSION: 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 No periprosthetic fracture is seen. No acute left hip abnormality is seen. Atherosclerotic calcifications arepresent bilaterally. [id number] CT ANGIO CHEST PE PROTOCOL Result Date: [...] above interpretation and agree with the findings. [id number] XR HIP RIGHT 1 VIEW Result Date: 02/16/2024 Findings/impression: Redemonstrated right femoral neck fracture, not significantly changed. No left-sided hip fracture or dislocation. Mild degenerative changes of the left hip. The soft tissues are unremarkable. [id number] XR HIP LEFT 2-3 VIEWS OPTIONAL PELVIS Result Date: 02/16/2024 Findings/impression: Redemonstrated right femoral neck fracture, not significantly changed. No left-sided hip fracture or dislocation. Mild degenerative changes of the left hip. The soft tissues are unremarkable. [id number] XR CHEST PORTABLE 1 VIEW Result Date: 02/16/2024 Small bilateral pleural effusions. Slight interval increase in patchy airspace opacities at both lung bases and in the suprahilar right lung. [id number] Medications: Scheduled: acetaminophen, 1,000 mg, Q6H aspirin [...] GERD, and HTN, who was transferred to [facility] for management of a right femoral [...] SpO2 88-92% -Cont Symbicort in place of DISABILITY ADVOCATE Anoro Ellipta -Prednisone for 2 more days (then reassess) -Duoneb q6h -airway clearance -Completes 5 day courses of Ceftriaxone + doxycycline today -Repeat chest CT in 1-3 months to reevaluate 1.1 cm spiculated lung nodule in the lingula Severe pulmonary HTN with RV failure (S/p lasix 160 mg and 5 mg metolazone 02/16/24 at [facility]) - No additional diuresis Afib with RVR (Patient denies h/o AF or taking eliquis, but report from [facility] said his last dose of eliquis was 02/13) -Telemetry monitoring -Cont DISABILITY ADVOCATE metoprolol XL 25 mg daily -need to call PCP Monday and investigate question of AF and AC HTN -cont DISABILITY ADVOCATE metoprolol XL 25 mg daily -Holding DISABILITY ADVOCATE amlodipine 10 mg daily GI (GERD and constipation) -DISABILITY ADVOCATE pantoprazole -scheduled bowel Rx CHRISTIANO (improving, baseline Cr about 1 per note from [facility]) -Daily BMP -Strict I/Os Right femoral neck [...] of Care - Trisha Tran RN - 02/17/2024 6129 EST Images from the original note were [...] pt to hospital closer to home (Prefers [facility], [facility]) Response: HR and BP stable, Occasional desat. Dressing c/d/I. Granddaughter at bedside. Continues on HFNC and amiodarone gtt. TRISHA TRAN RN 02/17/2024 21:59 Problem: Daily Care Plan Goals Goal: Care Plan Documentation Outcome: Ongoing Flowsheets (Taken 02/16/20241999 by Hilary Higgins RN) Area of Focus: Respiratory Goal This Shift: [...] might see on the residents EOL process AUXILIARY OPERATOR APPROACHES: 1. Report and signs/symptoms of pain [...] Blood Loss: 150 cc Drains: None Implants: Yoan Accolade C Size 4 132 degree Stem, Size 53mm +0 Unit[employer] Chrome Head, Size 11mm Centralizer, Medium Ontiveros Plug Implant Name Type Inv. Item Serial No. Moth Proofer Lot No. LRB No. Used Action RESTRICTOR CEMENT ONTIVEROS 25MM DISTAL FEM HIP RECON SURGERY ST - [id number] Total Joint Implant RESTRICTOR CEMENT ONTIVEROS 25MM DISTAL FEM HIP RECON SURGERY ST [id number] [employer] [id number] Right 1Implanted HIP FEMORAL STEM CMNTD 132DEG STD OFFST SZ 4 [id number] ACCOLADE C [id number] - [id number] Total Joint Implant HIP FEMORAL STEM CMNTD 132DEG STD OFFST SZ 4 [id number] ACCOLADE C [id number] [employer] [id number] Right 1 Implanted HIP SPACER STEM DISTAL CEMENTED 11MM ACCOLADE [id number] - [id number] Total Joint Implant HIP SPACER STEM DISTAL CEMENTED 11MM ACCOLADE [id number] [employer] [id number] Right 1 Implanted CEMENT BONE HIGH VISCOSITY TOBRAMYCIN RADIOPAQUE SINGLE DOSE YANES 40GM SIMPLEX [id number] - [id number] Ortho Implant CEMENT BONE HIGH VISCOSITY TOBRAMYCIN RADIOPAQUE SINGLE DOSE YANES 40GM SIMPLEX [id number] [facility] [id number] Right 2 Implanted HIP HEAD UNIPOLAR COCR 53MM UNITRAX [id number] - [id number] Total Joint Implant HIP HEAD UNIPOLAR [id number] UNITRAX [id number] [employer] [id number] Right 1 Implanted HIP TAPER SLEEVE STANDARD OFFSET FEMORAL V40 [id number] - [id number] Total Joint Implant HIP TAPER SLEEVE STANDARD OFFSET FEMORAL V40 [id number] [employer] [id number] Right 1 Implanted Closure: Monocryl, Dermabond, Mepilex [...] Care - Regine Jacobs RN - 02/17/2024 0921 EST Images from the original note were [...] MD PGY-2 Orthopaedic Surgery 02/16/2024 19:37 Pager #[phone], or EPIC Chat * Plan of Care - Honey Spring RN - 02/16/2024 1847 EST Images from the original note were not included. Noe Sue admitted to MICU at approx 1600 from [facility], Patient admitted with Acute hypoxic respiratory failure ([facility]) Arrived on NRB 10L; transferred to [facility]; poor reserves, pt desats to [...] audible with doppler. Pt accompanied by MICU ordnance equipment worker to CT for r/o PE. Monitored cardiovascular, [...] Contact Info) Description 04/05/2024 10:15 EST Appointment [facility] [address] [place] [address] 04/05/2024 10:30 EST Post-op Visit [facility] Orthopedic Trauma - An [address] [place] [address] Ko Marquis PA-C [address] [place] [address] Scheduled Referrals Name Type Priority Associated Diagnoses Order Schedule AMB CONS/FOLLOW UP ENDOCRINOLOGY Outpatient Referral Routine/Next Available Osteoporosis with current pathological fracture, unspecified osteoporosis type, initial encounter Expected: 04/04/2024 (Approximate), Expires: 02/21/2025 AMB CONS/FOLLOW UP ORTHOPEDICS - [facility] Outpatient Referral Routine/Next Available Closed right hip fracture, initial encounter ([facility]) Expected: 03/23/2024 (Approximate), Expires: 02/21/2025 documented as [...] EST Closed right hip fracture, initial encounter ([facility]) XR HIP LEFT 1 VIEW Routine 02/17/2024 15 :20 EST Closed right hip fracture, initial encounter ([facility]) OPEN TREATMENT, FRACTURE, FEMUR, NECK, WITH INTERNAL FIXATION OR INSERTION OF PROSTHETIC 02/17/2024 11:44 EST Closed right hip fracture, initial encounter ([facility]) PROTIME STAT 02/17/2024 11:41 EST COMPLETE BLOOD [...] 03/04/2024 11:3 9 EST us Scan 2 Mainframe Systems Administrator PROCEDURE/MINOR SURGICAL OR DERABLES Final Result * ECG REPORT - SCANNED (03/04/2024 9:35 EST) 03/04/2024 9:35 EST us Scan 2 Mainframe Systems Administrator PROCEDURE/MINOR SURGICAL OR DERABLES Final Result * ECG REPORT - SCANNED (02/28/2024 10:36 EST) 02/28/2024 10:3 6 EST us Scan 2 Mainframe Systems Administrator PROCEDURE/MINOR SURGICAL OR DERABLES Final Result * (ABNORMAL) COMPLETE BLOOD COUNT (02/28/2024 10:26 EST) WBC 16.63(H) 4.00 - 10.40 K/cmm 02/28/2024 11:06 [facility] RBC 3.09(L) 4.36 - 5.78 M/cmm 02/28/2024 11:06 [facility] Hemoglobin 10.3(L) 13.8 - 17.3 g/dL 02/28/2024 11:06 [facility] HCT 30.5(L) 39.5 - 50.2 % 02/28/2024 11:06 [facility] MCV 99(H) 81 - 95 fL 02/28/2024 11:06 [facility] MCH 33.3(H) 27.6 - 33.0 pg 02/28/2024 11:06 [facility] MCHC 33.8 32.8 - 36.4 g/dL 02/28/2024 11:06 [facility] RDW-CV 15.2(H) <14.2 % 02/28/2024 11:06 [facility] RDW-SD 55.3(H) <46.0 fl 02/28/2024 11:06 [facility] PLT 362 141 - 377 K/cmm 02/28/2024 11:06 [facility] MPV 10.1 9.5 - 12.7 fL 02/28/2024 11:06 [facility] Blood VENOUS BLOOD / Unknown Venipuncture / Unknown 02/28/2024 10:26 EST 02/28/2024 10:54 EST us Pushpa Welch MD HEMATOLOGY & PF4 ORDERABLES F inal Result [facility] [address] [place] [address] * (ABNORMAL) BASIC METABOLIC PANEL (BMP) (02/28/2024 10:26 EST) Sodium 137 136 - 145 mmol/L 02/28/2024 11:44 [facility] Potassium 3.7 3.5 - 5.0 mmol/L 02/28/2024 11:44 [facility] Chloride 95(L) 96 - 110 mmol/L 02/28/2024 11:44 [facility] CO2 Total 38(H) 22 - 32 mmol/L 02/28/2024 11:44 [facility] Anion Gap 4(L) 5 - 14 mmol/L 02/28/2024 11:44 [facility] Glucose 127(H) 70 - 99 mg/dl 02/28/2024 11:44 [facility] Calcium 8.4(L) 8.5 - 10.5 mg/dL 02/28/2024 11:44 [facility] BUN 34(H) 10 - 26 mg/dL 02/28/2024 11:44 [facility] Creatinine 1.32(H) 0.66 - 1.25 mg/dL 02/28/2024 11:44 [facility] eGFR 53(L) >60 mL/min/1.73 m2 02/28/2024 11:44 [facility] Blood VENOUS BLOOD / Unknown Venipuncture / Unknown 02/28/2024 10:26 EST 02/28/2024 10:55 EST Pushpa Welch MD CHEMISTRY & BLOOD GAS ORDERAB LES Final Result [facility] [address] [place] [id number] * (ABNORMAL) NT PRO BNP (02/27/2024 15:55 EST) NT-pro BNP 1,210(H) <326 pg/mL 02/27/2024 16:57 EST [facility] Comment: In the acute [...] ORDERABL ES Final Result Performing Organization Address [facility]/ZIP Co de Phone Number [facility] [address] [place] [address] * (ABNORMAL) BASIC METABOLIC PANEL (BMP) (02/27/2024 15:55 EST) Sodium 137 136 - 145 mmol/L 02/27/2024 16:57 EST [facility] Potassium 4.0 3.5 - 5.0 mmol/L 02/27/2024 16:57 EST [facility] Chloride 94(L) 96 - 110 mmol/L 02/27/2024 16:57 [facility] CO2 Total 36(H) 22 - 32 mmol/L 02/27/2024 16:57 [facility] Anion Gap 7 5 - 14 mmol/L 02/27/2024 16:57 [facility] Glucose 184(H) 70 - 99 mg/dl 02/27/2024 16:57 [facility] Calcium 8.4(L) 8.5 - 10.5 mg/dL 02/27/2024 16:57 [facility] BUN 37(H) 10 - 26 mg/dL 02/27/2024 16:57 [facility] Creatinine 1.34(H) 0.66 - 1.25 mg/dL 02/27/2024 16:57 [facility] eGFR 52(L) >60 mL/min/1.73 m2 02/27/2024 16:57 [facility] Blood VENOUS BLOOD / Unknown Venipuncture / Unknown 02/27/2024 15:55 EST 02/27/2024 16:02 EST Pushpa Welch MD CHEMISTRY & BLOOD GAS ORDERAB LES Final Result [facility] [address] [place] [address] * TRANSTHORACIC ECHO (TTE) LIMITED W/DOPPLER W/CF [...] color Doppler.The study was interpreted by [facility]. Pertinent images and [...] 20.40(H) 4.00 - 10.40 K/cmm 02/26/2024 16:12 [facility] RBC 3.15(L) 4.36 - 5.78 M/cmm 02/26/2024 16:12 [facility] Hemoglobin 10.3(L) 13.8 - 17.3 g/dL 02/26/2024 16:12 [facility] HCT 31.3(L) 39.5 - 50.2 % 02/26/2024 16:12 [facility] MCV 99(H) 81 - 95 fL 02/26/2024 16:12 [facility] MCH 32.7 27.6 - 33.0 pg 02/26/2024 16:12 [facility] MCHC 32.9 32.8 - 36.4 g/dL 02/26/2024 16:12 [facility] RDW-CV 15.3(H) <14.2 % 02/26/2024 16:12 [facility] RDW-SD 55.4(H) <46.0 fl 02/26/2024 16:12 [facility] PLT 311 141 - 377 K/cmm 02/26/2024 16:12 [facility] MPV 10.4 9.5 - 12.7 fL 02/26/2024 16:12 [facility] Blood VENOUS BLOOD / Unknown Venipuncture / Unknown 02/26/2024 15:55 EST 02/26/2024 16:03 EST Pushpa Welch MD HEMATOLOGY & PF4 ORDERABLES F inal Result [facility] [address] [place] [address] * (ABNORMAL) BASIC METABOLIC PANEL (BMP) (02/26/2024 15:54 EST) Sodium 137 136 - 145 mmol/L 02/26/2024 16:55 [facility] Potassium 4.6 3.5 - 5.0 mmol/L 02/26/2024 16:55 [facility] Chloride 95(L) 96 - 110 mmol/L 02/26/2024 16:55 [facility] CO2 Total 34(H) 22 - 32 mmol/L 02/26/2024 16:55 [facility] Anion Gap 8 5 - 14 mmol/L 02/26/2024 16:55 [facility] Glucose 159(H) 70 - 99 mg/dl 02/26/2024 16:55 [facility] Calcium 8.5 8.5 - 10.5 mg/dL 02/26/2024 16:55 [facility] BUN 40(H) 10 - 26 mg/dL 02/26/2024 16:55 [facility] Creatinine 1.23 0.66 - 1.25 mg/dL 02/26/2024 16:55 [facility] eGFR 58(L) >60 mL/min/1.73 m2 02/26/2024 16:55 EST [facility] Blood VENOUS BLOOD / Unknown Venipuncture / Unknown 02/26/2024 15:54 EST 02/26/2024 16:13 EST us Pushpa Welch MD CHEMISTRY & BLOOD GAS ORDERAB LES Final Result [facility] [address] [place] [address] * XR CHEST PORTABLE 1 VIEW (02/26/2024 12:08 EST) Anatomical Region Laterality Modality Computed Radiogr aphy 02/26/2024 12:1 6 EST Impressions 02/26/2024 12:16 EST New right upper and lower lobe airspace opacities which may represent aspiration pneumonitis. Small right effusion. [id number] Narrative 02/26/2024 12:16 EST XR CHEST PORTABLE [...] findings: ??Normal. Bones: Normal. Resulting Agency Comment [id number] Procedure Note Karo Schmdit MD - 02/26/2024 XR CHEST PORTABLE 1 [...] which may representaspiration pneumonitis. Small right effusion. [id number] Pushpa Welch MD IMG DIAGNOSTIC IMAGING ORDERA BLES Final Result * (ABNORMAL) BASIC METABOLIC PANEL (BMP) (02/24/2024 9:22 EST) Sodium 137 136 - 145 mmol/L 02/24/2024 10:32 [facility] Potassium 4.7 3.5 - 5.0 mmol/L 02/24/2024 10:32 [facility] Chloride 96 96 - 110 mmol/L 02/24/2024 10:32 [facility] CO2 Total 36(H) 22 - 32 mmol/L 02/24/2024 10:32 [facility] Anion Gap 5 5 - 14 mmol/L 02/24/2024 10:32 [facility] Glucose 146(H) 70 - 99 mg/dl 02/24/2024 10:32 [facility] Calcium 9.0 8.5 - 10.5 mg/dL 02/24/2024 10:32 [facility] BUN 48(H) 10 - 26 mg/dL 02/24/2024 10:32 [facility] Creatinine 1.04 0.66 - 1.25 mg/dL 02/24/2024 10:32 [facility] eGFR 70 >60 mL/min/1.73 m2 02/24/2024 10:32 [facility] Blood VENOUS BLOOD / Unknown Venipuncture / Unknown 02/24/2024 9:22 EST 02/24/2024 9:55 EST Marcos Quintero MD CHEMISTRY & BLOOD GAS ORD ERABLES Final Result [facility] [address] [place] [address] * (ABNORMAL) COMPLETE BLOOD COUNT (02/24/2024 9:22 EST) WBC 22.32(H) 4.00 - 10.40 K/cmm 02/24/2024 10:08 [facility] RBC 3.54(L) 4.36 - 5.78 M/cmm 02/24/2024 10:08 [facility] Hemoglobin 11.6(L) 13.8 - 17.3 g/dL 02/24/2024 10:08 [facility] HCT 34.4(L) 39.5 - 50.2 % 02/24/2024 10:08 [facility] MCV 97(H) 81 - 95 fL 02/24/2024 10:08 [facility] MCH 32.8 27.6 - 33.0 pg 02/24/2024 10:08 [facility] MCHC 33.7 32.8 - 36.4 g/dL 02/24/2024 10:08 [facility] RDW-CV 15.0(H) <14.2 % 02/24/2024 10:08 [facility] RDW-SD 53.6(H) <46.0 fl 02/24/2024 10:08 [facility] PLT 311 141 - 377 K/cmm 02/24/2024 10:08 [facility] MPV 10.6 9.5 - 12.7 fL 02/24/2024 10:08 [facility] Blood VENOUS BLOOD / Unknown Venipuncture / Unknown 02/24/2024 9:22 EST 02/24/2024 9:54 EST us Pete Lee DO HEMATOLOGY & PF4 ORDERABLES Saadia josse Result [facility] [address] [place] [address] * (ABNORMAL) BASIC METABOLIC PANEL (BMP) (02/23/2024 12:04 EST) Sodium 138 136 - 145 mmol/L 02/23/2024 12:39 [facility] Potassium 4.6 3.5 - 5.0 mmol/L 02/23/2024 12:39 [facility] Chloride 95(L) 96 - 110 mmol/L 02/23/2024 12:39 [facility] CO2 Total 39(H) 22 - 32 mmol/L 02/23/2024 12:39 [facility] Anion Gap 4(L) 5 - 14 mmol/L 02/23/2024 12:39 [facility] Glucose 223(H) 70 - 99 mg/dl 02/23/2024 12:39 [facility] Calcium 8.7 8.5 - 10.5 mg/dL 02/23/2024 12:39 [facility] BUN 51(H) 10 - 26 mg/dL 02/23/2024 12:39 [facility] Creatinine 1.10 0.66 - 1.25 mg/dL 02/23/2024 12:39 [facility] eGFR 66 >60 mL/min/1.73 m2 02/23/2024 12:39 [facility] Blood VENOUS BLOOD / Unknown Venipuncture / Unknown 02/23/2024 12:04 EST 02/23/2024 12:09 EST us Marcos Quintero MD CHEMISTRY & BLOOD GAS ORD ERABLES Final Result Performing Organization Address City/State/[facility] Co de Phone Number [facility] [address] [place] [address] * (ABNORMAL) COMPLETE BLOOD COUNT (02/23/2024 12:04 EST) WBC 19.09(H) 4.00 - 10.40 K/cmm 02/23/2024 13:21 [facility] RBC 3.57(L) 4.36 - 5.78 M/cmm 02/23/2024 13:21 [facility] Hemoglobin 11.6(L) 13.8 - 17.3 g/dL 02/23/2024 13:21 [facility] HCT 35.4(L) 39.5 - 50.2 % 02/23/2024 13:21 [facility] MCV 99(H) 81 - 95 fL 02/23/2024 13:21 [facility] MCH 32.5 27.6 - 33.0 pg 02/23/2024 13:21 [facility] MCHC 32.8 32.8 - 36.4 g/dL 02/23/2024 13:21 [facility] RDW-CV 15.0(H) <14.2 % 02/23/2024 13:21 [facility] RDW-SD 54.0(H) <46.0 fl 02/23/2024 13:21 [facility] PLT 274 141 - 377 K/cmm 02/23/2024 13:21 [facility] MPV 10.9 9.5 - 12.7 fL 02/23/2024 13:21 [facility] Blood VENOUS BLOOD / Unknown Venipuncture / Unknown 02/23/2024 12:04 EST 02/23/2024 13:13 EST us Pete Lee DO HEMATOLOGY & PF4 ORDERABLES Saadia loaiza Result [facility] [address] [place] [address] * (ABNORMAL) BASIC METABOLIC PANEL (BMP) (02/22/2024 11:01 EST) Sodium 138 136 - 145 mmol/L 02/22/2024 12:27 [facility] Potassium 4.5 3.5 - 5.0 mmol/L 02/22/2024 12:27 [facility] Chloride 95(L) 96 - 110 mmol/L 02/22/2024 12:27 [facility] CO2 Total 37(H) 22 - 32 mmol/L 02/22/2024 12:27 [facility] Anion Gap 6 5 - 14 mmol/L 02/22/2024 12:27 [facility] Glucose 208(H) 70 - 99 mg/dl 02/22/2024 12:27 [facility] Calcium 9.0 8.5 - 10.5 mg/dL 02/22/2024 12:27 [facility] BUN 56(H) 10 - 26 mg/dL 02/22/2024 12:27 [facility] Creatinine 1.27(H) 0.66 - 1.25 mg/dL 02/22/2024 12:27 [facility] eGFR 55(L) >60 mL/min/1.73 m2 02/22/2024 12:27 [facility] Blood VENOUS BLOOD / Unknown Venipuncture / Unknown 02/22/2024 11:01 EST 02/22/2024 11:40 EST us Marcos Quintero MD CHEMISTRY & BLOOD GAS ORD ERABLES Final Result Performing Organization Address City/State/[facility] Co de Phone Number [facility] [address] [place] [address] * (ABNORMAL) COMPLETE BLOOD COUNT (02/22/2024 11:01 EST) WBC 22.75(H) 4.00 - 10.40 K/cmm 02/22/2024 11:45 [facility] RBC 3.52(L) 4.36 - 5.78 M/cmm 02/22/2024 11:45 [facility] Hemoglobin 11.7(L) 13.8 - 17.3 g/dL 02/22/2024 11:45 [facility] HCT 34.6(L) 39.5 - 50.2 % 02/22/2024 11:45 [facility] MCV 98(H) 81 - 95 fL 02/22/2024 11:45 [facility] MCH 33.2(H) 27.6 - 33.0 pg 02/22/2024 11:45 [facility] MCHC 33.8 32.8 - 36.4 g/dL 02/22/2024 11:45 [facility] RDW-CV 15.1(H) <14.2 % 02/22/2024 11:45 [facility] RDW-SD 54.9(H) <46.0 fl 02/22/2024 11:45 [facility] PLT 270 141 - 377 K/cmm 02/22/2024 11:45 [facility] MPV 10.8 9.5 - 12.7 fL 02/22/2024 11:45 [facility] Blood VENOUS BLOOD / Unknown Venipuncture / Unknown 02/22/2024 11:01 EST 02/22/2024 11:37 EST us Pete Lee DO HEMATOLOGY & PF4 ORDERABLES Saadia josse Result [facility] [address] [place], [place] [phone] * (ABNORMAL) BASIC METABOLIC PANEL (BMP) (02/21/2024 9:58 EST) Sodium 138 136 - 145 mmol/L 02/21/2024 11:42 [facility] Potassium 4.1 3.5 - 5.0 mmol/L 02/21/2024 11:42 [facility] Chloride 95(L) 96 - 110 mmol/L 02/21/2024 11:42 [facility] CO2 Total 34(H) 22 - 32 mmol/L 02/21/2024 11:42 [facility] Anion Gap 9 5 - 14 mmol/L 02/21/2024 11:42 [facility] Glucose 190(H) 70 - 99 mg/dl 02/21/2024 11:42 [facility] Calcium 8.5 8.5 - 10.5 mg/dL 02/21/2024 11:42 [facility] BUN 54(H) 10 - 26 mg/dL 02/21/2024 11:42 [facility] Creatinine 1.38(H) 0.66 - 1.25 mg/dL 02/21/2024 11:42 [facility] eGFR 50(L) >60 mL/min/1.73 m2 02/21/2024 11:42 [facility] Blood VENOUS BLOOD / Unknown Venipuncture / Unknown 02/21/2024 9:58 EST 02/21/2024 11:04 EST Marcos Quintero MD CHEMISTRY & BLOOD GAS ORD ERABLES Final Result [facility] [address] [place] [address] * (ABNORMAL) COMPLETE BLOOD COUNT (02/21/2024 9:58 EST) WBC 15.67(H) 4.00 - 10.40 K/cmm 02/21/2024 11:02 [facility] RBC 3.25(L) 4.36 - 5.78 M/cmm 02/21/2024 11:02 [facility] Hemoglobin 10.6(L) 13.8 - 17.3 g/dL 02/21/2024 11:02 [facility] HCT 31.7(L) 39.5 - 50.2 % 02/21/2024 11:02 [facility] MCV 98(H) 81 - 95 fL 02/21/2024 11:02 [facility] MCH 32.6 27.6 - 33.0 pg 02/21/2024 11:02 [facility] MCHC 33.4 32.8 - 36.4 g/dL 02/21/2024 11:02 [facility] RDW-CV 15.0(H) <14.2 % 02/21/2024 11:02 [facility] RDW-SD 54.0(H) <46.0 fl 02/21/2024 11:02 [facility] PLT 196 141 - 377 K/cmm 02/21/2024 11:02 [facility] MPV 10.7 9.5 - 12.7 fL 02/21/2024 11:02 EST [facility] Blood VENOUS BLOOD / Unknown Venipuncture / Unknown 02/21/2024 9:58 EST 02/21/2024 10:49 EST us Pete Jesus DO HEMATOLOGY & PF4 ORDERABLES Saadia l Result [facility] [address] [place], [place] [phone] * (ABNORMAL) BASIC METABOLIC PANEL (BMP) (02/20/2024 10:07 EST) Sodium 141 136 - 145 mmol/L 02/20/2024 11:58 [facility] Potassium 4.0 3.5 - 5.0 mmol/L 02/20/2024 11:58 [facility] Chloride 96 96 - 110 mmol/L 02/20/2024 11:58 [facility] CO2 Total 35(H) 22 - 32 mmol/L 02/20/2024 11:58 [facility] Anion Gap 10 5 - 14 mmol/L 02/20/2024 11:58 [facility] Glucose 106(H) 70 - 99 mg/dl 02/20/2024 11:58 [facility] Calcium 8.5 8.5 - 10.5 mg/dL 02/20/2024 11:58 [facility] BUN 64(H) 10 - 26 mg/dL 02/20/2024 11:58 [facility] Creatinine 2.00(H) 0.66 - 1.25 mg/dL 02/20/2024 11:58 [facility] eGFR 32(L) >60 mL/min/1.73 m2 02/20/2024 11:58 [facility] Blood VENOUS BLOOD / Unknown Venipuncture / Unknown 02/20/2024 10:07 EST 02/20/2024 11:15 EST us Marcos Quintero MD CHEMISTRY & BLOOD GAS ORD ERABLES Final Result [facility] [address] [place], [place] [phone] * (ABNORMAL) COMPLETE BLOOD COUNT (02/20/2024 10:07 EST) WBC 14.61(H) 4.00 - 10.40 K/cmm 02/20/2024 11:28 [facility] RBC 3.36(L) 4.36 - 5.78 M/cmm 02/20/2024 11:28 [facility] Hemoglobin 11.0(L) 13.8 - 17.3 g/dL 02/20/2024 11:28 [facility] HCT 32.8(L) 39.5 - 50.2 % 02/20/2024 11:28 [facility] MCV 98(H) 81 - 95 fL 02/20/2024 11:28 [facility] MCH 32.7 27.6 - 33.0 pg 02/20/2024 11:28 [facility] MCHC 33.5 32.8 - 36.4 g/dL 02/20/2024 11:28 [facility] RDW-CV 15.2(H) <14.2 % 02/20/2024 11:28 [facility] RDW-SD 54.4(H) <46.0 fl 02/20/2024 11:28 [facility] PLT 167 141 - 377 K/cmm 02/20/2024 11:28 [facility] MPV 11.7 9.5 - 12.7 fL 02/20/2024 11:28 [facility] Blood VENOUS BLOOD / Unknown Venipuncture / Unknown 02/20/2024 10:07 EST 02/20/2024 11:13 EST us Pete Lee DO HEMATOLOGY & PF4 ORDERABLES Saadia l Result [facility] [address] [place] [address] * MRSA PCR (02/20/2024 5:04 EST) MRSA/Staph aureus Result No Staphylococcus aureus detected by PCR 02/20/2024 13:18 [facility] Swab BOTH ANTERIOR NARES / Unknown Swab / Unknown 02/20/2024 5:04 EST 02/20/2024 7:15 EST us Pete [place] DO MICROBIOLOGY - GENERAL ORDERABLE S Final Result [facility] [address] [place] [address] * (ABNORMAL) BASIC METABOLIC PANEL (BMP) (02/19/2024 11:27 EST) Sodium 136 136 - 145 mmol/L 02/19/2024 12:28 [facility] Potassium 4.7 3.5 - 5.0 mmol/L 02/19/2024 12:28 [facility] Chloride 96 96 - 110 mmol/L 02/19/2024 12:28 [facility] CO2 Total 35(H) 22 - 32 mmol/L 02/19/2024 12:28 [facility] Anion Gap 5 5 - 14 mmol/L 02/19/2024 12:28 [facility] Glucose 149(H) 70 - 99 mg/dl 02/19/2024 12:28 [facility] Calcium 8.4(L) 8.5 - 10.5 mg/dL 02/19/2024 12:28 [facility] BUN 70(H) 10 - 26 mg/dL 02/19/2024 12:28 [facility] Creatinine 1.86(H) 0.66 - 1.25 mg/dL 02/19/2024 12:28 [facility] eGFR 35(L) >60 mL/min/1.73 m2 02/19/2024 12:28 [facility] Blood VENOUS BLOOD / Unknown Venipuncture / Unknown 02/19/2024 11:27 EST 02/19/2024 11:49 EST us Marcos Quintero MD CHEMISTRY & BLOOD GAS ORD ERABLES Final Result [facility] [address] [place] [address] * (ABNORMAL) COMPLETE BLOOD COUNT (02/19/2024 11:27 EST) WBC 12.57(H) 4.00 - 10.40 K/cmm 02/19/2024 12:00 [facility] RBC 3.51(L) 4.36 - 5.78 M/cmm 02/19/2024 12:00 [facility] Hemoglobin 11.5(L) 13.8 - 17.3 g/dL 02/19/2024 12:00 [facility] HCT 33.2(L) 39.5 - 50.2 % 02/19/2024 12:00 [facility] MCV 95 81 - 95 fL 02/19/2024 12:00 [facility] MCH 32.8 27.6 - 33.0 pg 02/19/2024 12:00 [facility] MCHC 34.6 32.8 - 36.4 g/dL 02/19/2024 12:00 [facility] RDW-CV 15.2(H) <14.2 % 02/19/2024 12:00 [facility] RDW-SD 52.4(H) <46.0 fl 02/19/2024 12:00 [facility] PLT 148 141 - 377 K/cmm 02/19/2024 12:00 [facility] MPV 11.6 9.5 - 12.7 fL 02/19/2024 12:00 [facility] Blood VENOUS BLOOD / Unknown Venipuncture / Unknown 02/19/2024 11:27 EST 02/19/2024 11:48 EST us Pete Lee DO HEMATOLOGY & PF4 ORDERABLES Saadia l Result [facility] [address] [place] [phone] * XR CHEST PORTABLE 1 VIEW (02/18/2024 15:38 EST) Anatomical Region Laterality Modality Computed Radiogr aphy 02/18/2024 15:4 8 EST Impressions 02/18/2024 15:48 EST Bilateral small pleural effusions and bibasilar opacities compatible with atelectasis. [id number] Narrative 02/18/2024 15:48 EST XR CHEST PORTABLE 1 VIEW ??02/18/2024 3:24 PM Clinical History/comments: hypoxia Comparison: 02/16/2024. Technique: Single portable AP view of the chest. Findings: Lines/tubes/devices: ??None Lungs: Left greater than right basilar opacities Pleura: Bilateral pleural effusions Cardiac and mediastinal contours: Stable Soft tissues and extrathoracic findings: No acute abnormalities Bones: No acute abnormalities Resulting Agency Comment [id number] Procedure Note Gordo Palm MD - 02/18/2024 [...] pleural effusions and bibasilar opacities compatible withatelectasis. [id number] us Marcos Quintero MD IMG DIAGNOSTIC IMAGING OR DERABLES Final Result * VITAMIN D (25,OH) (02/18/2024 6:28 EST) 25OH Vitamin D Tot 38 30 - 100 ng/mL 02/19/2024 10:50 EST [facility] Comment: Vitamin D 25,OH Interpretive Ranges: Deficiency: ??<10.0 ng/mL Insufficiency: ??10.0 - 30.0 ng/mL Sufficiency: ??30.0 - 100.0 ng/mL Toxicity: ??>100.0 ng/mL Blood VENOUS BLOOD / Unknown Venipuncture / Unknown 02/18/2024 6:28 EST 02/18/2024 6:38 EST us Marcos Quintero MD CHEMISTRY & BLOOD GAS ORD ERABLES Final Result [facility] [address] [place] [address] * (ABNORMAL) COMPREHENSIVE METABOLIC PANEL (CMP) (02/18/2024 6:28 EST) Sodium 134(L) 136 - 145 mmol/L 02/18/2024 7:09 [facility] Potassium 4.5 3.5 - 5.0 mmol/L 02/18/2024 7:09 [facility] Chloride 97 96 - 110 mmol/L 02/18/2024 7:09 [facility] CO2 Total 36(H) 22 - 32 mmol/L 02/18/2024 7:09 [facility] Glucose 110(H) 70 - 99 mg/dl 02/18/2024 7:09 [facility] BUN 70(H) 10 - 26 mg/dL 02/18/2024 7:09 [facility] Creatinine 2.11(H) 0.66 - 1.25 mg/dL 02/18/2024 7:09 [facility] eGFR 30(L) >60 mL/min/1.7 3m2 02/18/2024 7:09 [facility] SERVICES Total Protein 5.0(L) 6.3 - 8.2 g/dL 02/18/2024 7:09 [facility] Albumin 2.7(L) 3.4 - 4.9 g/dL 02/18/2024 7:09 [facility] Alkaline Phosphatase 80 38 - 126 U/L 02/18/2024 7:09 [facility] AST 33 15 - 46 U/L 02/18/2024 7:09 [facility] ALT 36 <50 U/L 02/18/2024 7:09 [facility] Bilirubin, Total <0.5 <1.4 mg/dL 02/18/20 7:09 [facility] Calcium 8.2(L) 8.5 - 10.5 mg/dL 02/18/2024 7:09 [facility] Albumin/Globulin Ratio 1.2 1.0 - 2.5 02/18/2024 7:09 [facility] Anion Gap 1(L) 5 - 14 mmol/L 02/18/2024 7:09 [facility] Blood VENOUS BLOOD / Unknown Venipuncture / Unknown 02/18/2024 6:28 EST 02/18/2024 6:38 EST us Pete Lee DO CHEMISTRY & BLOOD GAS ORDERABLES Final Result Performing Organization Address City/State/[facility] Co de Phone Number [facility] [address] [place] [phone] * (ABNORMAL) COMPLETE BLOOD COUNT (02/18/2024 6:28 EST) WBC 13.90(H) 4.00 - 10.40 K/cmm 02/18/2024 6:45 [facility] RBC 3.41(L) 4.36 - 5.78 M/cmm 02/18/2024 6:45 [facility] Hemoglobin 11.0(L) 13.8 - 17.3 g/dL 02/18/2024 6:45 [facility] HCT 32.3(L) 39.5 - 50.2 % 02/18/2024 6:45 [facility] MCV 95 81 - 95 fL 02/18/2024 6:45 [facility] MCH 32.3 27.6 - 33.0 pg 02/18/2024 6:45 [facility] MCHC 34.1 32.8 - 36.4 g/dL 02/18/2024 6:45 [facility] RDW-CV 14.9(H) <14.2 % 02/18/2024 6:45 [facility] RDW-SD 51.8(H) <46.0 fl 02/18/2024 6:45 [facility] PLT 125(L) 141 - 377 K/cmm 02/18/2024 6:45 [facility] MPV 11.0 9.5 - 12.7 fL 02/18/2024 6:45 [facility] Blood VENOUS BLOOD / Unknown Venipuncture / Unknown 02/18/2024 6:28 EST 02/18/2024 6:32 EST us Pete Lee DO HEMATOLOGY & PF4 ORDERABLES Saadia l Result Performing Organization Address City/[facility]/ZIP Co de Phone Number [facility] [address] [place] [address] * POCT GLUCOSE, INTERFACED (02/17/2024 17:48 EST) Glucose, POC 84 70 - 100 mg/dL 02/17/2024 17:49 [facility] HN LAB POC COMMENT (GLUCOSE) Test Performed by Nursing Services 02/17/2024 17:49 [facility] Blood CAPILLARY BLOOD / Unknown 02/17/2024 17:48 EST 02/17/2024 17:49 EST us Pete Lee DO POINT OF CARE TEST ORDERABLES Fi nal Result [facility] [address] [place] [address] * XR HIP RIGHT 1 VIEW (02/17/2024 15:20 EST) Anatomical Region Laterality Modality Lower Extremities Right Computed Radio graphy 02/17/2024 16:1 3 EST Impressions 02/17/2024 16:13 EST FINDINGS/IMPRESSION: 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 No periprosthetic fracture is seen. No acute left hip abnormality is seen. Atherosclerotic calcifications are present bilaterally. [id number] Narrative 02/17/2024 16:13 EST XR HIP RIGHT [...] abnormality is seen. Atherosclerotic calcifications arepresent bilaterally. [id number] Augustine Ceja MD IMG DIAGNOSTIC IMAGING OR [...] is seen. Atherosclerotic calcifications are present bilaterally. [id number] Narrative 02/17/2024 16:13 EST XR HIP RIGHT [...] of the lower pelvis. Resulting Agency Comment [id number] Procedure Note Gordo Palm MD - 02/17/2024 [...] abnormality is seen. Atherosclerotic calcifications arepresent bilaterally. [id number] us Augustine Ceja MD IMG DIAGNOSTIC IMAGING OR DERABLES Final Result * PROTIME (02/17/2024 11:41 EST) I.N.R. 1.0 0.9 - 1.1 Ratio 02/17/2024 12:08 EST [facility] Pro Time 11.2 9.7 - 12.8 secs 02/17/2024 12:08 EST [facility] Blood VENOUS BLOOD / Unknown Venipuncture / Unknown 02/17/2024 11:41 EST 02/17/2024 11:50 EST Narrative [facility] - 02/17/2024 12:08 EST Moderate Intensity Coumadin INR = 2.0-3.0 Adjustments in anticoagulant therapy dose should be based on the INR and NOT on the Protime. us Jason Morse MD HEMATOLOGY & PF4 ORDERABLES Final Result [facility] [address] [place] [address] * MAGNESIUM (02/17/2024 5:58 EST) Magnesium 2.1 1.7 - 2.8 mg/dL 02/17/2024 7:11 [facility] Blood VENOUS BLOOD / Unknown Venipuncture / Unknown 02/17/2024 5:58 EST 02/17/2024 6:07 EST us Marti Horn MD CHEMISTRY & BLOOD GAS ORDERABLES Final Result [facility] [address] [place] [address] * (ABNORMAL) COMPREHENSIVE METABOLIC PANEL (CMP) (02/17/2024 5:58 EST) Pathologist [facility] Sodium 134(L) 136 - 145 mmol/L 02/17/2024 6:18 [facility] Potassium 4.4 3.5 - 5.0 mmol/L 02/17/2024 6:18 [facility] Chloride 100 96 - 110 mmol/L 02/17/2024 6:18 [facility] CO2 Total 30 22 - 32 mmol/L 02/17/2024 6:18 [facility] Glucose 108(H) 70 - 99 mg/dl 02/17/2024 6:18 [facility] BUN 69(H) 10 - 26 mg/dL 02/17/2024 6:18 [facility] Creatinine 2.08(H) 0.66 - 1.25 mg/dL 02/17/2024 6:18 [facility] eGFR 31(L) >60 mL/min/1.7 3m2 02/17/2024 6:18 [facility] Total Protein 5.2(L) 6.3 - 8.2 g/dL 02/17/2024 6:18 [facility] Albumin 2.8(L) 3.4 - 4.9 g/dL 02/17/2024 6:18 [facility] Alkaline Phosphatase 83 38 - 126 U/L 02/17/2024 6:18 [facility] AST 36 15 - 46 U/L 02/17/2024 6:18 [facility] ALT 49 <50 U/L 02/17/2024 6:18 [facility] Bilirubin, Total 0.5 <1.4 mg/dL 02/17/20 6:18 [facility] Calcium 8.7 8.5 - 10.5 mg/dL 02/17/2024 6:18 [facility] Albumin/Globulin Ratio 1.2 1.0 - 2.5 02/17/2024 6:18 [facility] Anion Gap 4(L) 5 - 14 mmol/L 02/17/2024 6:18 [facility] Blood VENOUS BLOOD / Unknown Venipuncture / Unknown 02/17/2024 5:58 EST 02/17/2024 6:07 EST us Pete Lee DO CHEMISTRY & BLOOD GAS ORDERABLES Final Result [facility] [address] [place], [place] [id number] * (ABNORMAL) COMPLETE BLOOD COUNT (02/17/2024 5:58 EST) WBC 16.70(H) 4.00 - 10.40 K/cmm 02/17/2024 6:16 [facility] RBC 3.66(L) 4.36 - 5.78 M/cmm 02/17/2024 6:16 [facility] Hemoglobin 11.7(L) 13.8 - 17.3 g/dL 02/17/2024 6:16 [facility] HCT 33.7(L) 39.5 - 50.2 % 02/17/2024 6:16 [facility] MCV 92 81 - 95 fL 02/17/2024 6:16 [facility] MCH 32.0 27.6 - 33.0 pg 02/17/2024 6:16 [facility] MCHC 34.7 32.8 - 36.4 g/dL 02/17/2024 6:16 [facility] RDW-CV 14.7(H) <14.2 % 02/17/2024 6:16 [facility] RDW-SD 49.7(H) <46.0 fl 02/17/2024 6:16 [facility] PLT 128(L) 141 - 377 K/cmm 02/17/2024 6:16 [facility] MPV 10.6 9.5 - 12.7 fL 02/17/2024 6:16 [facility] Blood VENOUS BLOOD / Unknown Venipuncture / Unknown 02/17/2024 5:58 EST 02/17/2024 6:04 EST us Pete Lee DO HEMATOLOGY & PF4 ORDERABLES Saadia l Result Performing Organization Address City/[facility]/ZIP Co de Phone Number [facility] [address] [place] [address] * (ABNORMAL) POCT GLUCOSE, INTERFACED (02/17/2024 5:58 EST) Pathologist [facility] Glucose, POC 114(H) 70 - 100 mg/dL 02/17/2024 5:59 EST [facility] HN LAB POC COMMENT (GLUCOSE) Test Performed by Nursing Services 02/17/2024 5:59 EST [facility] Blood CAPILLARY BLOOD / Unknown 02/17/2024 5:58 EST 02/17/2024 5:59 EST us Pete Lee DO POINT OF CARE TEST ORDERABLES Fi nal Result Performing Organization Address City/[facility]/ZIP Co de Phone Number [facility] [address] [place] [address] * MRSA PCR (02/17/2024 5:53 EST) MRSA/Staph aureus Result No Staphylococcus aureus detected by PCR 02/17/2024 10:53 EST [facility] Swab BOTH ANTERIOR NARES / Unknown Swab / Unknown 02/17/2024 5:53 EST 02/17/2024 7:50 EST us Pete Lee DO MICROBIOLOGY - GENERAL ORDERABLE S Final Result Performing Organization Address City/[facility]/ZIP Co de Phone Number [facility] [address] [place] [address] * (ABNORMAL) POCT GLUCOSE, INTERFACED (02/16/2024 23:45 EST) Glucose, POC 149(H) 70 - 100 mg/dL 02/16/2024 23:48 EST [facility] HN LAB POC COMMENT (GLUCOSE) Test Performed by Nursing Services 02/16/2024 23:48 EST [facility] Blood CAPILLARY BLOOD / Unknown 02/16/2024 23:45 EST 02/16/2024 23:48 EST us Pete Lee DO POINT OF CARE TEST ORDERABLES Fi nal Result Performing Organization Address [facility] Co de Phone Number [facility] [address] [place] [address] * TYPE AND SCREEN (02/16/2024 20:00 EST) ABO O 02/16/2024 21:54 EST [facility] Rh Factor Positive 02/16/2024 21:54 EST [facility] Antibody Screen Negative 02/16/2024 21:54 EST [facility] Specimen Expires: 02/19/2024 @ 23:59 02/16/2024 21:54 EST [facility] Blood VENOUS BLOOD / Unknown Venipuncture / Unknown 02/16/2024 20:00 EST 02/16/2024 20:09 EST us Ritesh Cardenas MD BLOOD BANK TESTS Edited Resul t - Final [facility] [place] [place] [address] * CT ANGIO CHEST PE PROTOCOL (02/16/2024 [...] above interpretation and agree with the findings. [id number] Narrative 02/17/2024 10:[address] ANGIO CHEST [...] lesions. Multilevel degenerative changes. Resulting Agency Comment [id number] Procedure Note Soina Salazar MD - 02/17/2024 CT ANGIO CHEST [...] the above interpretation andagree with the findings. [id number] us Pete Lee DO IMG CT ORDERABLES Final Result * XR HIP RIGHT 1 VIEW (02/16/2024 17:54 EST) Anatomical Region Laterality Modality Lower Extremities Right Computed Radio graphy 02/16/2024 18:2 7 EST Impressions 02/16/2024 18:27 EST Findings/impression: Redemonstrated right femoral neck fracture, not significantly changed. No left- sided hip fracture or dislocation. Mild degenerative changes of the left hip. The soft tissues are unremarkable. [id number] Narrative 02/16/2024 18:27 EST XR HIP LEFT 2-3 VIEWS OPTIONAL PELVIS, XR HIP RIGHT 1 VIEW ??02/16/2024 5:52 PM Signs and Symptoms/Comments: right hip pain Comparison: Pelvic x-ray 02/15/2024. Technique: AP orthopedic view of the pelvis which includes an AP view of both hips, with additional AP view of the left hip. Resulting Agency Comment [id number] Procedure Note Sonia Salazar MD - 02/16/2024 [...] theleft hip. The soft tissues are unremarkable. [id number] us Ritesh Cardenas MD IMG DIAGNOSTIC IMAGING [...] left hip. The soft tissues are unremarkable. [id number] Narrative 02/16/2024 18:27 EST XR HIP LEFT [...] theleft hip. The soft tissues are unremarkable. [id number] Ritesh Cardenas MD IMG DIAGNOSTIC IMAGING ORDERA BLES Final Result * PROTIME (02/16/2024 17:00 EST) I.N.R. 1.0 0.9 - 1.1 Ratio 02/16/2024 18:17 EST [facility] Pro Time 11.3 9.7 - 12.8 secs 02/16/2024 18:17 EST [facility] Blood VENOUS BLOOD / Unknown Venipuncture / Unknown 02/16/2024 17:00 EST 02/16/2024 17:30 EST Narrative [facility] - 02/16/2024 18:17 EST Moderate Intensity Coumadin INR = 2.0-3.0 Adjustments in anticoagulant therapy dose should be based on the INR and NOT on the Protime. Ritesh Cardenas MD HEMATOLOGY & PF4 ORDERABLES F inal Result [facility] [address] [place] [address] * (ABNORMAL) PTT (02/16/2024 17:00 EST) PTT 20(L) 26 - 37 secs 02/16/2024 18:17 EST [facility] Blood VENOUS BLOOD / Unknown Venipuncture / Unknown 02/16/2024 17:00 EST 02/16/2024 17:30 EST Ritesh Cardenas MD HEMATOLOGY & PF4 ORDERABLES F inal Result Performing Organization Address [facility] de Phone Number [facility] [address] [place] [address] * (ABNORMAL) HEMOGLOBIN A1C (02/16/2024 17:00 EST) Hemoglobin A1c 6.1(H) <5.7 % 02/16/2024 21:15 EST [facility] Comment: Glycemic Status References: Normal: ??<5.7% Pre-Diabetes: ??5.7% - 6.4% Diagnostic of Diabetes: ??> or = 6.5% (if confirmed) Est Avg Glucose 128 mg/dL 21:15 EST [facility] Comment:The eAG represents t he A1c result expressed as average glucose in mg/dL. Blood VENOUS BLOOD / Unknown Venipuncture / Unknown 02/16/2024 17:00 EST 02/16/2024 17:16 EST Pete Lee DO CHEMISTRY & BLOOD GAS ORDERABLES Final Result Performing Organization Address [facility] de Phone Number [facility] [address] [place] [address] * (ABNORMAL) COMPREHENSIVE METABOLIC PANEL (CMP) (02/16/2024 17:00 EST) Sodium 140 136 - 145 mmol/L 02/16/2024 17:35 EST [facility] Potassium 5.2(H) 3.5 - 5.0 mmol/L 02/16/2024 17:35 EST [facility] Chloride 97 96 - 110 mmol/L 02/16/2024 17:35 [facility] CO2 Total 36(H) 22 - 32 mmol/L 02/16/2024 17:35 [facility] Glucose 179(H) 70 - 99 mg/dl 02/16/2024 17:35 [facility] BUN 70(H) 10 - 26 mg/dL 02/16/2024 17:35 [facility] Creatinine 2.54(H) 0.66 - 1.25 mg/dL 02/16/2024 17:35 [facility] eGFR 24(L) >60 mL/min/1.7 3m2 02/16/2024 17:35 [facility] Total Protein 5.4(L) 6.3 - 8.2 g/dL 02/16/2024 17:35 [facility] Albumin 3.0(L) 3.4 - 4.9 g/dL 02/16/2024 17:35 [facility] Alkaline Phosphatase 104 38 - 126 U/L 02/16/2024 17:35 [facility] AST 32 15 - 46 U/L 02/16/2024 17:35 [facility] ALT 50(H) <50 U/L 02/16/2024 17:35 [facility] Bilirubin, Total 0.6 <1.4 mg/dL 02/16/20 17:35 [facility] Calcium 9.1 8.5 - 10.5 mg/dL 02/16/2024 17:35 [facility] Albumin/Globulin Ratio 1.3 1.0 - 2.5 02/16/2024 17:35 [facility] Anion Gap 7 5 - 14 mmol/L 02/16/2024 17:35 [facility] Blood VENOUS BLOOD / Unknown Venipuncture / Unknown 02/16/2024 17:00 EST 02/16/2024 17:15 EST us Pete Lee DO CHEMISTRY & BLOOD GAS ORDERABLES Final Result [facility] [address] [place], [place] [id number] * (ABNORMAL) COMPLETE BLOOD COUNT (02/16/2024 17:00 EST) WBC 19.76(H) 4.00 - 10.40 K/cmm 02/16/2024 17:38 [facility] RBC 3.85(L) 4.36 - 5.78 M/cmm 02/16/2024 17:38 [facility] Hemoglobin 12.5(L) 13.8 - 17.3 g/dL 02/16/2024 17:38 [facility] HCT 37.3(L) 39.5 - 50.2 % 02/16/2024 17:38 [facility] MCV 97(H) 81 - 95 fL 02/16/2024 17:38 [facility] MCH 32.5 27.6 - 33.0 pg 02/16/2024 17:38 [facility] MCHC 33.5 32.8 - 36.4 g/dL 02/16/2024 17:38 [facility] RDW-CV 14.8(H) <14.2 % 02/16/2024 17:38 [facility] RDW-SD 53.3(H) <46.0 fl 02/16/2024 17:38 [facility] PLT 130(L) 141 - 377 K/cmm 02/16/2024 17:38 [facility] MPV 11.4 9.5 - 12.7 fL 02/16/2024 17:38 [facility] Blood VENOUS BLOOD / Unknown Venipuncture / Unknown 02/16/2024 17:00 EST 02/16/2024 17:16 EST us Pete Lee DO HEMATOLOGY & PF4 ORDERABLES Saadia loaiza Result [facility] [address] [place], [place] [id number] * (ABNORMAL) PROCALCITONIN (02/16/2024 17:00 EST) Pathologist [facility] Procalcitonin 0.96(H) See Note ng/mL 02/16/2024 18:25 EST [facility] Comment: NOTE: Reference Range: <0.5 ng/mL - Low risk of severe sepsis >2.0 ng/mL - High risk of severe sepsis Blood VENOUS BLOOD / Unknown Venipuncture / Unknown 02/16/2024 17:00 EST 02/16/2024 17:15 EST Pete Lee DO CHEMISTRY & BLOOD GAS ORDERABLES Final Result Performing Organization Address [facility] Co de Phone Number [facility] [address] [place] [address] * HEPARIN LEVEL - UNFRACTIONATED HEPARIN (02/16/2024 17:00 EST) [facility] Heparin Level-UFH 0.05 Therapeutic Range: 0.30 - 0.70 IU/mL 02/16/2024 18:22 EST [facility] Comment:Unfractionated hepar in therapeutic [...] 02/16/2024 17:00 EST 02/16/2024 17:30 EST Pete Lee DO HEMATOLOGY & PF4 ORDERABLES Saadia l Result Performing Organization Address [facility] Co de Phone Number [facility] [address] [place] [address] * (ABNORMAL) POCT GLUCOSE, INTERFACED (02/16/2024 16:59 EST) [facility] Glucose, POC 177(H) 70 - 100 mg/dL 02/16/2024 17:00 EST [facility] HN LAB POC COMMENT (GLUCOSE) Test Performed by Nursing Services 02/16/2024 17:00 EST [facility] Blood CAPILLARY BLOOD / Unknown 02/16/2024 16:59 EST 02/16/2024 17:00 EST us Pete Lee DO POINT OF CARE TEST ORDERABLES Fi nal Result [facility] [address] [place] [address] * EKG 12-LEAD (02/16/2024 16:44 EST) 02/16/2024 16:4 4 EST Narrative [facility] EKG - 02/28/2024 10:28 EST ? [facility] ? Test Date: ?2024-02-16 Pat Name: ? NOE SUE ? Department: ?? [facility] [address] ? Room: ? M415 Gender: ? Male ? Mrp Controller: ?? : ?1940 ? Requested By: JESUS FREEMAN Order Number: [id number] ? Zulay CLEMONS: ?? IMANI LOMAS MD ? Measurements Intervals ?[place] ? Rate: ? 104 ?P: ?73 DC: ? 147 ?QRS: ?-58 QRSD: ? 127 [...] Note Imani Lomas MD - 02/28/2024 [facility] Test Date: 2024-02-16 Pat Name: NOE SUE Department: [place] [address] Room: M415 Gender: Male Mrp Controller: : 1940 Requested By: JESUS FREEMAN Order Number: [id number] Reading MD: IMANI LOMAS MD Measurements Intervals [place] Rate: 104 P: 73 DC: 147 QRS: -58 QRSD: 127 T: 61 [...] preliminary report. Edited by CRISTELA TERRY MD [id number] 20:18:03 EST. I reviewed the tracing and have either agreed or edited the findings inthis report. Electronically Signed On 02-28-2024 10:28:35 EST by CAPO CLEMONS. us Pete Lee DO CARDIAC ECG ORDERABLES Final Res ult [facility] EKG documented in this encounter Visit Diagnoses Diagnosis Acute hypoxic respiratory failure ([facility] [facility] Primary Closed right hip fracture, initial encounter ([facility]) Acute hypoxic respiratory failure ([facility]) [J96.01] Osteoporosis with current pathological fracture, unspecified osteoporosis type, initial encounter Chronic obstructive pulmonary disease, unspecified COPD type ([facility]) [J44.9] Pulmonary hypertension ([facility]) [I27.20] Other chronic pulmonary heart diseases Atrial fibrillation, unspecified type ([facility]) [I48.91] Urinary retention [R33.9] Retention of urine, unspecified Hypertension, unspecified type [I10] Thrush [B37.0] Candidiasis of mouth PFO (patent foramen ovale) Ostium secundum type atrial septal defect Pulmonary emphysema, unspecified emphysema type (HCC-CMS) Closed right hip fracture, initial encounter ([facility]) Osteoporosis with current pathological fracture Pulmonary hypertension (HCC-CMS) Other chronic pulmonary heart diseases Chronic obstructive pulmonary disease ([facility]) Chronic airway obstruction, not elsewhere classified Atrial fibrillation ([facility]) Atrial fibrillation Urinary retention Retention of urine, unspecified Hypertension Unspecified essential hypertension Thrush Candidiasis of mouth PFO (patent foramen ovale) Ostium secundum type atrial septal defect documented in this encounter Admitting Diagnoses Diagnosis Acute hypoxic respiratory failure ([facility]) Closed right hip fracture, initial encounter ([facility]) documented in this encounter Administered Medications Inactive Administered Medications - up to 3 most recent administrations Medication Order MAR Action Action Date Dose Rate Site acetaminophen (TYLENOL) tablet 1,000 mg 1,000 mg, oral, EVERY 6 HOURS, First dose on Mon02/16/24 at 1800, Until Discontinued, Routine Given 02/18/2024 6:27 EST 1,000 mg Given 02/17/2024 23:42 EST 1,000 mg Given 02/17/2024 17:49 EST 1,000 mg acetaminophen (TYLENOL) tablet 1,000 mg 1,000 mg, oral, EVERY 8 HOURS, First dose (after last modification) on 02/19/24 at 1430, Until Discontinued, Routine Given 02/26/2024 5:52 EST 1,000 mg Given 02/25/2024 22:48 EST 1,000 mg Given 02/25/2024 15:21 EST 1,000 mg acetaminophen (TYLENOL) tablet 1,000 mg 1,000 mg, oral, 3 TIMES DAILY, First dose (after last modification) on 02/26/24 at 1400, Until Discontinued, Routine Given 02/29/2024 8:29 EST 1,000 mg Given 02/28/2024 20:41 EST 1,000 mg Given 02/28/2024 13:40 EST 1,000 mg acetaminophen (TYLENOL) tablet 1,000 mg 1,000 mg, oral, NOW X1, 1 dose, On Vandana 02/29/24 at 0030, Routine Given 02/29/2024 0:17 EST 1,000 mg amiodarone in dextrose 360 mg/200 mL (1.8 mg/mL) infusion 0.5 mg/min (16.6667 mL/hr, rounded to 16.7 mL/hr), intravenous, CONTINUOUS, Starting on Mon02/16/24 at 1630, Until 02/18/24 at 0900, Routine Rate Documented 02/18/2024 8:00 EST 0.5 mg/min 16.7 mL/hr Rate Documented 02/18/2024 7:00 EST 0.5 mg/min 16.7 mL/hr Rate Documented 02/18/2024 6:00 EST 0.5 mg/min 16.7 mL/hr apixaban (ELIQUIS) tablet 2.5 mg 2.5 mg, [...] mg Given 02/27/2024 8:09 EST 81 mg blood thinner patient education booklet 1 Each 1 Each, other, Once (Without Time Specified), 1 dose, Starting on Mon02/19/24 at 1153, Until Mon02/23/24 at 0830, Routine Given 02/23/2024 8:30 EST 1 Each budesonide-formoterol HFA (SYMBICORT) 80-4.5 mcg/actuation inhaler 2 Puff 2 Puff, inhalation, EVERY 12 HOURS, First dose on Mon02/16/24 at 2100, Until Discontinued, Routine Given 02/29/2024 7:40 EST 2 Puffs Given 02/28/2024 19:46 EST 2 Puffs Given 02/28/2024 8:24 EST 2 Puffs cefTRIAXone (ROCEPHIN) 2,000 mg in sodium chloride (NS MBP) 50 mL IVPB 2,000 mg, intravenous, Administer over 30 Minutes, EVERY 24 HOURS, 4 doses, First dose on Mon02/16/24 at 1630, Last dose on Mon02/19/24 at 1630, Type of Therapy: Empiric, Suspected Indication (Select all that apply): Community acquired pneumonia, ID Consult: No, Routine Given 02/19/2024 16:46 EST 2,000 mg Given 02/18/2024 15:59 EST 2,000 mg Given 02/17/2024 17:25 EST 2,000 mg cholecalciferol (Vitamin D3) tablet 1,000 Units 1,000 Units, oral, DAILY, First dose on Mon02/18/24 at 1430, Until Discontinued, Routine Given 02/21/2024 8:22 EST 1,000 Units Given 02/20/2024 9:51 EST 1,000 Units Given 02/19/2024 8:56 EST 1,000 Units cholecalciferol (Vitamin D3) tablet 2,000 Units 2,000 Units, oral, DAILY, First dose on Mon02/23/24 at 0900, Until Discontinued, Routine Given 02/29/2024 8:29 EST 2,000 Units Given 02/28/2024 8:23 EST 2,000 Units Given 02/27/2024 8:10 EST 2,000 Units dextrose 50 % solution 12.5 g 12.5 g (25 mL), intravenous, PRN, Starting on Mon02/16/24 at 1613, Until Vandana 02/29/24 at 1421, Low Blood Sugar, Routine Dimethicone-Zinc Oxide 20-25 % spray,non-aerosol topical, 2 TIMES DAILY, First dose on Mon02/20/24 at 2100, Until Discontinued Given 02/29/2024 8:30 EST Given 02/28/2024 20:54 EST Given 02/28/2024 8:24 EST doxycycline (VIBRA-TABS) tablet 100 mg 100 mg, oral, EVERY 12 HOURS, 7 doses, First dose on Mon02/16/24 at 2100, Last dose on Mon02/19/24 at 2100, Routine Given 02/19/2024 20:32 EST 100 mg Given 02/19/2024 8:56 EST 100 mg Given 02/18/2024 20:26 EST 100 mg furosemide (LASIX) 10 mg/mL injection 1 dose, Starting on Mon02/26/24 at 1622, Until Vandana 02/29/24 at 1421 furosemide (LASIX) injection 20 mg 20 mg, intravenous, NOW X1, 1 dose, On 02/18/24 at 1530, Routine Given 02/18/2024 15:50 EST 20 mg furosemide (LASIX) injection 20 mg 20 mg, intravenous, NOW X1, 1 dose, On Mon02/26/24 at 1600, Routine Given 02/26/2024 17:26 EST 20 mg furosemide (LASIX) injection 40 mg 40 mg, intravenous, NOW X1, 1 dose, On Mon02/19/24 at 1215, Routine Given 02/19/2024 12:17 EST 40 mg furosemide (LASIX) injection 40 mg 40 mg, intravenous, NOW X1, 1 dose, On Tu02/20/24 at 0930, Routine Given 02/20/2024 9:51 EST 40 mg furosemide (LASIX) injection 40 mg 40 mg, intravenous, NOW X1, 1 dose, On Mon02/21/24 at 1230, Routine Given 02/21/2024 12:41 EST 40 mg furosemide (LASIX) tablet 20 mg 20 mg, oral, DAILY, First dose on Vandana 02/22/24 at 1330, Until Discontinued, Routine Given 02/26/2024 8:39 EST 20 mg Given 02/25/2024 8:24 EST 20 mg Given 02/24/2024 8:01 EST 20 mg glucagon injection 1 mg 1 mg, intramuscular, As needed, Starting on Mon02/16/24 at 1613, Until Vandana 02/29/24 at 1421, Low Blood Sugar, Routine guaiFENesin (MUCINEX) SR tablet 600 mg 600 mg, oral, 2 TIMES DAILY, First dose on Mon02/26/24 at 1330, Until Discontinued, Routine Given 02/29/2024 8:29 EST 6 00 mg Given 02/28/2024 20:42 EST 600 mg Given 02/28/2024 8:23 EST 600 mg heparin injection 5,000 Units 5,000 Units, subcutaneous, EVERY 8 HOURS, First dose on 02/17/24 at 1800, Until Discontinued, Routine Given 02/19/2024 8:57 EST 5,000 Units Given 02/18/2024 23:00 EST 5,000 Units Given 02/18/2024 15:50 EST 5,000 Units HYDROmorphone (DILAUDID) tablet 2 mg 2 mg, oral, EVERY 4 HOURS PRN, Starting on Mon02/16/24 at 1613, Until Vandana 02/29/24 at 1421, Moderate Pain 4-6, Severe Pain 7-10, Routine Given 02/27/2024 11:08 EST 2 mg Given 02/24/2024 20:15 EST 2 mg Given 02/23/2024 23:09 EST 2 mg HYDROmorphone (DILAUDID) tablet 2-4 mg 2-4 mg, oral, EVERY 30 MINUTES PRN, 2 doses, Starting on 02/17/24 at 1605, Until 02/18/24 at 0416, Pain, Routine, Recovery (only) Given 02/18/2024 4:16 EST 2 mg Given 02/17/2024 21:13 EST 2 mg HYDROmorphone (PF) (DILAUDID) 0.5 mg/0.5 mL syringe 0.5 mg 0.5 mg, intravenous, NOW X1, 1 dose, On 02/17/24 at 1045, Routine Given 02/17/2024 10:31 EST 0.5 mg iohexoL (OMNIPAQUE 350) solution 100 mL 100 mL, intravenous, Once in imaging, 1 dose, Starting on Mon02/16/24 at 1833, Until Mon02/16/24 at 1851, Routine, Imaging Protocol Orders Given 02/16/2024 18:51 EST 100 mL ipratropium-albuteroL (DUONEB) 0.5 mg-3 mg(2.5 mg base)/3 mL nebulizer solution 3 mL 3 mL, nebulization, EVERY 6 HOURS, First dose (after last modification) on Mon02/16/24 at 1645, Until Discontinued, Routine Given 02/16/2024 16:19 EST 3 mL ipratropium-albuteroL (DUONEB) 0.5 mg-3 mg(2.5 mg base)/3 mL nebulizer solution 3 mL 3 mL, nebulization, 4 TIMES DAILY, First dose (after last modification) on Mon02/16/24 at 2100, Until Discontinued, Routine Given 02/23/2024 20:04 EST 3 mL Given 02/23/2024 13:38 EST 3 mL Given 02/23/2024 10:01 EST 3 mL ipratropium-albuteroL (DUONEB) 0.5 mg-3 mg(2.5 mg base)/3 mL nebulizer solution 3 mL 3 mL, nebulization, 4 TIMES DAILY, First dose (after last modification) on 02/26/24 at 1700, Until Discontinued, Routine Given 02/29/2024 7:39 EST 3 mL Given 02/28/2024 12:41 EST 3 mL Given 02/28/2024 8:58 EST 3 mL ipratropium-albuteroL (DUONEB) 0.5 mg-3 mg(2.5 mg base)/3 mL nebulizer solution 1 dose, Starting on Mon02/16/24 at 1614, Until 02/17/24 at 1545 lidocaine (PF) 10 mg/mL (1 %) injection [...] 25 mg, oral, DAILY, First dose on Mon02/18/24 at 0930, Until Discontinued, Routine Given 02/29/2024 [...] 40 mg, oral, DAILY, First dose on 02/17/24 at 0900, Until Discontinued, Routine Given 02/18/2024 8:51 EST 40 mg pantoprazole (PROTONIX) tablet 40 mg 40 mg, oral, NOW X1, 1 dose, On Mon02/16/24 at 2315, Routine Given 02/16/2024 23:41 EST 40 mg pantoprazole (PROTONIX) tablet 40 mg 40 mg, oral, DAILY, First dose on 02/18/24 at 1430, Until Discontinued, Routine Given 02/29/2024 8:29 EST 40 mg Given 02/28/2024 8:23 EST 40 mg Given 02/27/2024 8:10 EST 40 mg polyethylene glycol 3350 (MIRALAX) packet 17 g 17 g, oral, DAILY, First dose on 02/17/24 at 0900, Until Discontinued, Routine Given 02/18/2024 8:51 EST 17 g polyethylene glycol 3350 (MIRALAX) packet 17 g 17 g, oral, 2 TIMES DAILY, First dose (after last modification) on 02/18/24 at 2100, Until Discontinued, Routine Given 02/23/2024 21:20 EST 17 g Given 02/21/2024 8:23 EST 17 g Given 02/19/2024 8:56 EST 17 g predniSONE (DELTASONE) tablet 10 mg 10 mg, oral, NOW X1, 1 dose, On Mon02/19/24 at 1215, Routine Given 02/19/2024 12:18 EST 10 mg predniSONE (DELTASONE) tablet 30 mg 30 mg, oral, DAILY, 2 doses, First dose on 02/18/24 at 0930, Last dose on 02/19/24 at 0900, Routine Given 02/19/2024 8:56 EST 30 mg Given 02/18/2024 9:27 EST 30 mg predniSONE (DELTASONE) tablet 40 mg 40 mg, oral, DAILY, First dose on Mon02/20/24 at 0900, Until Discontinued, Routine Given 02/23/2024 8:29 EST 40 mg Given 02/22/2024 9:06 EST 40 mg Given 02/21/2024 8:22 EST 40 mg senna (SENOKOT) tablet 2 Tablet 2 Tablet, oral, AT BEDTIME, First dose on Mon02/19/24 at 2100, Until Discontinued, Routine Given 02/23/2024 21:22 EST 2 Tablets TAMSulosin (FLOMAX) capsule 0.4 mg 0.4 mg, oral, DAILY, First dose on 02/26/24 at 0900, Until Discontinued, Routine Given 02/29/2024 [...] on Mon02/26/24 at 1400, Until Discontinued, Routine 08 (Given - Provider: Julissa Gavin RN)1642 (Given - Provider: Julissa Gavin RN)2015 (Given - Provider: Corrie Davidson RN) 0823 (Given - Provider: Lexii Walker RN)1340 (Given [...] Provider: Julissa Gavin RN)2006 (Given - Provider: Marianne Mcdaniel, RT) 0824 (Given - Provider: Lexii Walker RN)194 (Given - Provider: Boo Sandra, RT) 0740 (Given - Provider: Sherice Mansfield, RT) cholecalciferol (Vitamin D3) tablet 2,000 Units 2,000 Units, oral, DAILY, First dose on Mon02/23/24 at 0900, Until Discontinued, Routine 0810 (Given - Provider: Julissa Gavin RN) 0823 (Given - Provider: Lexii Walker RN) 08 (Given - Provider: Myke Chao LPN) Dimethicone-Zinc Oxide 20-25 % spray,non-aerosol topical, 2 TIMES DAILY, First dose on Mon02/20/24 at 2100, Until Discontinued 0811 (Given - Provider: Julissa Gavin RN)2026 (Given - Provider: Corrie Davidson, RN) 823 (Given - Provider: Lexii Walker RN)2053 (Given - Provider: Rubin Degroot RN) 829 (Given - Provider: Myke Chao LPN) guaiFENesin (MUCINEX) SR tablet 600 mg 600 mg, oral, 2 TIMES DAILY, First dose on Mon02/26/24 at 1330, Until Discontinued, Routine 0810 (Given - Provider: Julissa Gavin RN)2015 (Given - Provider: Corrie Davidson RN) 08 (Given - Provider: Lexii Walker, ASHVIN)2041 (Given - Provider: Rubin Degroot RN) 08 (Given - Provider: Myke Chao LPN) ipratropium-albuteroL (DUONEB) 0.5 mg-3 mg(2.5 mg base)/3 mL nebulizer solution 3 mL 3 mL, nebulization, 4 TIMES DAILY, First dose (after last modification) on Mon02/26/24 at 1700, Until Discontinued, Routine 1000 (Given - Provider: Aimee Cordova, RT)1325 (Given - Provider: Cuco Howell, RT)1642 (Given - Provider: Cuco Howell, RT)2007 (Given - Provider: Marianne Mcdaniel, RT) 0858 (Given - Provider: Sherice Mansfield, RT)1241 (Given - Provider: Cuco Howell, RT)1630 (Not Given - Provider: Toña Silver, RT - Reason: Patient/family refused)1947 (Not Given - Provider: Boo Sandra, RT - Reason: Patient/family refused) 0739 (Given - Provider: Sherice Mansfiled RT)1200 (Canceled Entry - Provider: Batch Job User Admin - Comment: Automatically canceled at discontinue of medication order) lidocaine 5 % (LIDODERM) patch 1 Patch 1 Patch, transdermal, Administer over 12 Hours, DAILY, First dose on Mon02/16/24 at 2030, Until Discontinued, STAT 1953 (Not Given - Provider: Corrie Davidson RN - Reason: Patient/family refused) 2041 (Not Given - Provider: Rubin Degroot RN - Reason: Patient/family refused) metoprolol SUCCinate (TOPROL-XL) tablet 25 mg 25 mg, oral, DAILY, First dose on Mon02/18/24 at 0930, Until Discontinued, Routine 0809 (Given [...] Davidson RN) 0823 (Given - Provider: Lexii Walker RN)1236 (Given - Provider: Lexii Walker RN)1802 (Given - Provider: Lexii Walker RN)2107 (Not Given - Provider: Rubin Degroot RN - Reason: Patient/family refused) 0830 (Given - Provider: Myke Chao LPN)1200 (Canceled Entry - Provider: Batch Job User Admin - Comment: Automatically canceled at discontinue of medication order) pantoprazole (PROTONIX) tablet 40 mg 40 mg, oral, DAILY, First dose on Mon02/18/24 at 1430, Until Discontinued, Routine 0810 (Given [...] Walker RN) 0743 (Given - Provider: Sherice Mansfield, RT) torsemide (DEMADEX) tablet 20 mg 20 [...] Lexii Walker RN)2054 (Given - Provider: Rubin Degroot RN) 0830 [...] Count Last Ordered Date First Ordered Date furosemide (LASIX) 10 mg/mL injection 1 ipratropium-albuteroL (DUONE B) 0.5 mg-3 mg(2.5 mg base)/3 mL nebulizer solution 3 mL 3 02/24/2024 02/16/2024 ipratropium-albuteroL (DUONE B) 0.5 mg-3 mg(2.5 mg base)/3 mL nebulizer solution 1 02/21/2024 acetaminophen (TYLENOL) tablet 1,000 mg 1 1 04/19/2023 atropine 0.1 mg/mL syringe 0.5 mg 1 024 [id number] LAC-ropivacain e 80 mcg-0.5 mg-30 mg-150 mg periarticular syringe 1 02/17/2024 diphenhydrAMINE (BENADRYL) i njection 12.5 mg 1 02/17/2024 enoxaparin (LOVENOX) injection 30 mg 1 12/2023 fentaNYL citrate (PF) injection 25-50 mcg 1 02/17/2024 HYDROmorphone (PF) (DILAUDID ) 0.5 mg/0.5 mL syringe 0.3-0.5 mg 1 02/17/2024 lidocaine (PF) 10 mg/mL (1 % ) injection 2 mg 2 02/17/2024 02/16/2024 naloxone (NARCAN) injection 0.2 mg 1 2023 ondansetron (PF) (ZOFRAN) injection 4 mg 1 02/17/2024 ceFAZolin (ANCEF) syringe 2 g 1 02/16/2024 dextrose 50 % solution 12.5 g 1 02/16/2024 glucagon injection 1 mg 1 02/16/2024 insulin regular 100 unit/mL (3 mL) injectable pen 1 02/16/2024 magnesium sulfate 2 g in water 50 mL 1 11/2023 potassium chloride in water infusion 20 mEq 1 02/16/2024 predniSONE (DELTASONE) tablet 40 mg 1 02/15 senna (SENOKOT) tablet 2 Tablet 1 sennosides (SENOKOT) syrup 17.6 mg 1 2023 [...] documented as of this encounter Care Teams Preparer Making Department Relationship Specialty Start Date End Date Suzie Villagomez MD [address] [place] [address] PCP - General Family Medicine - Primary Care 02/15/24 documented as of this encounter
--- OUTSIDE RECORDS SUMMARY | 2024-03-27 10:43 | XMS_ITS | Encounter Summary ---
Author Organization [facility] Address [address] [place] [address] Care Team Providers Care Career Resource Technician Name Role Phone Suzie Quan MD Primary Care Provider [phone] Reason for Visit * Reason Onset Date Comments Appointment Related 02/23/2024 Called and l eft message with referral department. With Dr. Quijano message:Farnaz Rivas, DO?Ashley Rae MAHello, looks like patient still in hospital. Please see if PCP willing to address or we can see patient when he is able if desired, I'm happy to discuss with PCP if needed. Thanks! Encounter Details Date Type Department Care Team (Late st Contact Info) Description 02/23/2024 Telephone [facility] Endocrinology - [facility] [address] [place] [address] Farnaz Rivas, DO [address] [facility] [address] [place] [address] Appointment Related (Called and left message with referral department. With Dr. Quijano message://Farnaz Rivas, DO?Ashley Rae MA/Kevin, looks like patient still in hospital. Please see if PCP willing to address or we can see patient when he is able if desired, I'm happy to discuss with PCP if needed. Thanks!/) Social History Tobacco Use Types Packs/Day Years Used Date Smoking Tobacco: Former Cigarettes Alcohol Use Standard Drinks/Week Comments Never 0 (1 standard drink = 0.6 oz pur e alcohol) [facility] Utilities Answer Date Recorded In the past 12 months has th e electric, gas, oil, or water [employer] threatened to shut off services in your [...] any time in the past [address] [facility], were you homeless or living in a nursing home (including now)? No 02/16/[address] [facility] - Inadequate Housing Answer Date Re corded What is your living situation today? I have a [facility] place to live 02/20/2024 Think about [...] No 02/16/2024 16:00 EST Suma Spring RN * Are you blind or do [...] Suma Flores RN documented in this encounter Miscellaneous Notes * Telephone Encounter - Ashley Rae MA - 02/26/2024 1042 EST [facility] called travel writer back. Spoke with Aria from PCP office. She has sent a message to the PCP to see if they will follow up with patient in regards to Fracture Prevention Care. Once PCP has responded Aria will [facility] back. * Telephone Encounter - Ashley Rae MA - 02/23/2024 0912 EST Images from the original note were not included. Called and left message with referral department. With Dr. Quijano message: Farnaz Rivas, DO Ashley Rae MA Odil[place], looks like patient still in hospital. Please see if PCP willing to address or we can see patient when he is able if desired, I'm happy to discuss with PCP if needed. Thanks! documented in this encounter Plan of Treatment Upcoming Encounters Date Type Department Care Team (Flavio madera Contact Info) Description 04/05/2024 10:15 EST Appointment [facility] Xray [address] [place] [phone] 04/05/2024 10:30 EST Post-op Visit [facility] Orthopedic Trauma - [address] [phone] Ko Marquis PA-C [address] [place] [address] documented as of this encounter Visit Diagnoses Not on filedocumented in this encounter Care Teams Career Resource Technician Relationship Specialty Start Date End Date Suzie Quan MD [address] [place] [id number] PCP - General Family Medicine - Primary Care 02/15/24 documented as of this encounter
--- OUTSIDE RECORDS SUMMARY | 2024-03-27 10:44 | XMS_ITS | Encounter Summary ---
Author Organization [facility] Address [address] [place] [address] Care Team Providers Care Unscrambler Name Role Phone Suzie Quan MD Primary Care Provider [phone] Reason for Referral * (Routine/Next Available) - Receiving Office to Obtain Authorization Specialty Diagnoses / Procedures Referred By Contac t Referred To Contact Procedures CT OUTSIDE IMAGES ABDOMEN PELVIS Imaging, External Referral ID Status Reason Start Date Expiration Date Visits Requested Visits Authorized [id number] Receiving Office to Obtain Authorization 02/15/2024 1 1 Reason for Visit * (Routine/Next Available) - Receiving Office to Obtain Authorization Specialty Diagnoses / Procedures Referred By Contac t Referred To Contact Procedures CT OUTSIDE IMAGES ABDOMEN PELVIS Imaging, External Referral ID Status Reason Start Date Expiration Date Visits Requested Visits Authorized [id number] Receiving Office to Obtain Authorization 02/15/2024 1 1 Encounter Details Date Type Department Care Team (Latest Contact Info) Description 02/15/2024 11:03 EST - 02/15/2024 13:49 EST Hospital Encounter [facility] Center [place] Discharge Disposition: Home or Self Care Social History Tobacco Use Types Packs/Day Years Used Date Smoking Tobacco: Former Cigarettes Alcohol Use Standard Drinks/Week Comments Never 0 (1 standard drink = 0.6 oz pur e alcohol) [facility] Utilities Answer Date Recorded In the [...] any time in the past 12 m [facility], were you homeless or living in a [facility] (including now)? No 02/16/2024 Interpersonal Safety Answer Date Record ed How often does anyone, ita sergio family, hit, punch or physically hurt you? 02/16/2024 How often does anyone, ita sergio family, insult, scream, curse or threaten [...] hearing? Answer Date of Assessment Author No 02/15/2024 15:21 Maxwell Ro RN * Are you blind or do you have serious difficulty seeing, even when wearing glasses? Answer Date of Assessment Author Yes 02/15/2024 15:21 Maxwell Ro, ASHVIN * Do you have serious difficulty walking or climbing stairs? (5 years old or older) Answer Date of Assessment Author Yes 02/15/2024 15:21 Maxwell Ro, RN * Do you have difficulty dressing or bathing? (5 years old or older) Answer Date of Assessment Author Yes 02/15/2024 15:21 Maxwell Ro, ASHVIN * Because of a physical, mental, or emotional condition, do you have difficulty doing errands alone such as visiting a doctor's office or shopping? (15 years old or older) Answer Date of Assessment Author No 02/15/2024 15:21 Maxwell Ro RN documented as of this encounter Mental Status * Because of a physical, mental, or emotional condition, do you have serious difficulty concentrating, remembering, or making decisions? (5 years old or older) Answer Entry Date Author No 02/15/2024 15:21 Maxwell Ro RN documented in this encounter Medications at Time of Discharge albuterol 90 mcg/actuation HFA aerosol inhaler inhaler Inhale 2 Puffs as directed 4 times daily. 02/11/2024 ANORO ELLIPTA 62.5-25 mcg/actuation inhaler Inhale 1 Puff as directed daily. 09/10/2023 aspirin chewable 81 mg tablet Take 1 Tablet by mouth daily. metoprolol SUCCinate (TOPROL-XL) 25 mg tablet Take 1 Tablet by mouth daily. pantoprazole (PROTONIX) 40 mg tablet Take 1 Tablet by mouth daily before breakfast. amLODIPine (NORVASC) 10 mg tablet Take 1 Tablet by mouth daily. 02/29/2024 documented as of this encounter Discharge Disposition Disposition Code Departure Means Destination Home or Self Care documented in this encounter Plan of Treatment Upcoming Encounters Date Type Department Care Team (Late st Contact Info) Description 04/05/2024 10:15 EST Appointment [facility] Xray [address] [place] [phone] 04/05/2024 10:30 EST Post-op Visit [facility] [place] Tra[place] - [place] [id number] [place] [address] Ko Marquis PA-C [address] [place] [address] documented as of this encounter Procedures Procedure Name Priority Date/Time Associated Diagnosis Comments CT OUTSIDE IMAGES ABDOMEN PELVIS Routine 02/15/2024 11:05 EST documented in this encounter Results * CT OUTSIDE IMAGES ABDOMEN PELVIS (02/15/2024 11:05 EST) Narrative 02/15/2024 11:05 EST This is a non-reportable exam. us External Imaging IMG OTHER IMAGING ORDERABLES Fi nal Result documented in this encounter Visit Diagnoses Not on filedocumented in this encounter Care Teams Unscrambler Relationship Specialty Start Date End Date Suzie Quan MD [address] [place] [address] PCP - General Family Medicine - Primary Care 02/15/24 documented as of this encounter
--- OUTSIDE RECORDS SUMMARY | 2024-03-27 10:44 | XMS_ITS | Encounter Summary ---
Author Organization [facility] Address [address] [place] [address] Care Team Providers Care Vibratory Pile Driver Name Role Phone Suzie Villagomez MD Primary Care Provider Reason for Visit * Auth/Cert (Routine) Specialty Diagnoses / Procedures Referred By Conthank t Referred To Contact Diagnoses Closed right hip fracture, initial encounter ([facility] Hip fracture Referral ID Status Reason Start Date Expiration Date Visits Re quested Visits Authorized [id number] 1 1 Encounter Details Date Type Department Care Team (Latest Contact Info) Description 02/15/2024 13:50 EST - 02/16/2024 14:42 EST Hospital Encounter [facility] Intensive Care Unit [address] [place] [id number] Homer Tan MD [address] [place] [phone] Krystian Anne MD [address] [place] [phone] Leda Ng MD [address] [place] [phone] Closed right hip fracture, initial encounter ([facility]) [S72.001A] (Primary Dx); Acute on chronic respiratory failure with hypoxia and hypercapnia ([facility]) [J96.21, J96.22]; Pneumonia due to infectious organism, unspecified laterality, unspecified part of lung [J18.9]; Heart failure, unspecified HF chronicity, unspecified heart failure type (HCC-CMS); Pulmonary HTN (HCC-CMS); Pulmonary emphysema, unspecified emphysema type ([facility]) Discharge Disposition: Short Term Hospital Social History Tobacco Use Types Packs/Day Years Used Date Smoking Tobacco: Former Cigarettes Tobacco Cessation:Counseling Given: No Alcohol Use Standard Drinks/Week Comments Never 0 (1 standard drink = 0.6 oz pur e alcohol) [facility] Utilities Answer Date Recorded In the past 12 months has th e [employer], gas, oil, or water company threatened to [...] any time in the past 12 m [facility], were you homeless or living in a long-term (including now)? No 02/16/2024 Interpersonal Safety Answer [...] Sign Reading Time Taken Comments Blood Pressure 117/55 02/16/2024 1400 EST Pulse 107 02/16/2024 0405 EST Temperature 37.1 ??C (98.8 ??F) 02/16/2024 1200 EST Respiratory Rate 18 02/16/2024 1400 EST Oxygen Saturation 97% 02/16/2024 1400 EST Inhaled Oxygen Concentration - - Weight 57.6 kg (127 lb) 02/16/2024 0405 EST Height 175.3 cm (5' 9) 02/15/2024 1540 EST Body Mass Index 18.75 02/15/2024 1540 EST documented in this encounter Functional Status * Are you deaf or do you have serious difficulty hearing? Answer Date of Assessment Author No 02/15/2024 15:21 Maxwell Ro RN * Are you blind or do you have serious difficulty seeing, even when wearing glasses? Answer Date of Assessment Author Yes 02/15/2024 15:21 Maxwell Ro RN * Do you have serious difficulty walking or climbing stairs? (5 years old or older) Answer Date of Assessment Author Yes 02/15/2024 15:21 Maxwell Ro RN * Do you have difficulty dressing or bathing? (5 years old or older) Answer Date of Assessment Author Yes 02/15/2024 15:21 Maxwell Ro RN * Because of a physical, mental, [...] Maxwell Ro RN documented in this encounter Discharge Summaries * Leda Ng MD - 02/16/2024 1257 EST HOSPITAL MEDICINE DISCHARGE SUMMARY Primary Care Provider: SUZIE VILLAGOMEZ Attending Physician: Leda Ng MD Admit Date: 02/15/24 Discharge Date: 02/16/24 Disposition (location):Transfer to ICU at [facility] Dr Cardenas accepting physician Condition at Discharge: Critical - Severe Pulmonary HTN on High Flow Reason for Admission (chief complaint):Closed right hip fracture Principal/Final Diagnosis: Closed right hip fracture, initial encounter ([facility]) Additional Problems Managed in the Hospital: Active Hospital Problems Diagnosis Date Noted *Closed right hip fracture, initial encounter ([facility]) 02/15/2024 Heart failure ([facility]) 02/16/2024 Pulmonary HTN ([facility]) 02/16/2024 Pulmonary emphysema ([facility]) 02/16/2024 Acute on chronic respiratory failure with hypoxia and hypercapnia ([facility]) 02/15/2024 Pneumonia due to infectious organism 02/15/2024 Resolved Hospital Problems No resolved problems to display. Transition of care: [facility] Transition of Care report automatically routed to PCP office on discharge. Clinical Issues Needing Follow-up 1. Pertinent medication changes: -- Remains on bolus doses of lasix and metolazone -- Will add amiodarone 150 mg bolus followed by infusion IF heart rate is sustained and > 110. Currently HR is 90 to 100. 2. Recommended follow-up tests/procedures needed: -- Given ECHO suggestive of Severe Pulmonary Hypertension patient is transferring to [facility] for further optimization and stabilization prior to anesthesia for his his surgical repair 3. Anticoagulation on discharge: No- on hold for pending surgery. Pharmacy confirmed that patient is NOT on anticoagulation at home 4. Changes to goals of care at time of discharge (if applicable): Per discussion patient wishes to proceed with surgery HPI: As per Dr Anne's H & P from 02/15/24: Bi Sue is a 83 y.o. male with a PMHx of COPD on 3-5 L oxygen at baseline and atrial fibrillation on aspirin (no record of anticoagulation in records from [facility]), who presents as a transfer from [facility] for surgical management of a right femoral neck fracture after a fall. Anesthesia at [facility] was uncomfortable with doing surgery there due to his oxygen requirements baseline and he has transferred here for surgical and anesthesiology evaluation. Workup in the ED at [facility] was notable for white blood cell count 22,000, procalcitonin 3, creatinine 3, and potassium of 6. He was reported to have a baseline creatinine of about 1. He has no prior records available in our chart or in care everywhere. On arrival to [facility] he reports falling two days ago. He said he felt dizzy/lightheaded before falling and lost his balance. He denies tripping and was on the ground for 2-3 hours crawling around on his knees. He denies any recent fever, chills, chest pain, shortness of breath, or cough. He says thathe started to cough at [facility] once he was given a breathing treatment. He said he wears 3-4L O2 at home intermittently. He denies being on apixaban or any other blood thinner. His reported medications are aspirin, amlodipine, and metoprolol. Soon after arrival at [facility] he became hypoxic and was placedon increasing O2 up to 10L via oxymask and was then transferred up to the ICU. He is requesting DNR/ DNI. Hospital Course: Acute on chronically ill 83 y.o. male with a PMHx of COPD with chronic hypoxic respiratory failure (on 3-5 L oxygen at baseline) and atrial fibrillation on aspirin (no record of anticoagulation in records from [facility]), and hypertension who presented as a transfer from [facility] for surgical management of a right femoral neck fracture after a fall. Anesthesia at [facility] was uncomfortable with doing surgery there due to his oxygen requirements baseline and he has transferred here for surgical and anesthesiology evaluation. . Admission has been complicated by acute on chronic hypoxic and hypercarbic respiratory failure 2/2 COPD exacerbat ion and community acquired pneumonia. He is now on HFNC and atrial fibrillation with RVR for which a diltiazem infusion was initiated overnight. Given concern for further impacting his RV dysfunctiondiltiazem infusion was discontinued. ECHO completed at [facility] on 02/16/24 suggesting severe pulmonary hypertension. Given need for invasivemonitoring with PA catheter vs ABI in cases of severe pulmonary hypertension [facility] Anesthesia Department is recommending that the patient transfer to a tertiary care center for surgery. Discussed case with Dr Ceja ([facility] Orthopedic Surgeon) and Dr Cuadra ([facility]). Dr Cardenas has accepted the patient in transfer. Plan to medically optimize patient prior to surgery. Acute on chronic hypoxic and hypercarbic respiratory failure 2/2 COPD exacerbation, volume overload, community acquired pneumonia: DNR/DNI. COVID/flu/RSV negative. Extended respiratory panel is pending. -HFNC -Duonebs 4x daily -Replace [employer] Anoro Ellipta with Symbicort - Ceftriaxone and doxycycline -Prednisone 40mg daily Received 40 mg IV lasix on admission 02/14. Ordered 60 mg IV lasix on 02/15 around 8:30 am. Only 100 cc of urine output over 1.5 hours. Administered 100 mg IV lasix x1 and 5 mg of metolazone with 400 mg of urine out-put over 3 hours.-- 1100 cc of urine output by 14:00 Fall and right femoral neck fracture: Displaced subcapital right femoral neck fracture that ortho notes would be best treated with a cemented hip hemiarthroplasty. Not on anticoagulation [employer]. Will need to see an improvement in his pulmonary status before proceeding with surgery. Concern for undiagnosed pulmonary HTN with his history of COPD and partially treated chronic hypoxia. CK mildly elevated at 272 on admission now 114. -Echocardiogram-with PA pressure of 75 mm hg and EF > 65% -Scheduled tylenol -Hydromorphone 2mg PO PRN Elevated Troponin: Likely type 2 NSTEMI from acute on chronic hypoxia and hypercarbia. No chest pain. -Troponin (down-trending) 0.403-->0.323-->0.244 -Echocardiogram as above Elevated NT proBNP: 7520 on admission. No history of heart failure in our records. -Echocardiogram as above Received 40 mg IV lasix on admission 02/14. Ordered 60 mg IV lasix on 02/15 around 8:30 am. Only 100 cc of urine output over 1.5 hours. Administered 100 mg IV lasix x1 in conjunction with 5 mg of metolazone with 400 mg of urine out-put over 3 hours and 1100 cc of urine output by 14:00 Atrial Fibrillation with RVR: -- Diltiazem infusion was initiated overnight for atrial fibrillation with RVR. Given concern for adverse impact on RV discontinued diltiazem infusion and added amiodarone with a 150 mg bolus to be followed by amio infusion given HR was sustained > 110. Soft blood pressures on a background of hypertension: -hold [employer] amlodipine and metoprolol CHRISTIANO and hyperkalemia: -- Patient reportedly down for extended period of time prior to presentation. -- Reported to have a creatinine of 3 at [facility]. On admission to [facility] creatinine was 2.5. Down-trended to 2.3 this am. (Reported baseline creatinine of 1) Hyperkalemia is mild. Gerd: -Continue [employer] pantoprazole Relevant Imaging/Procedures Performed: CXR 02/16/24 IMPRESSION Small bilateral pleural effusions. Slight interval increase in patchy airspace opacities at both lung bases and in the suprahilar right lung. ECHO 02/16/24 Left Ventricle: Left ventricular systolic function was hyperdynamic with an ejection fraction =>65%. Left ventricular wall motion was normal; there were no regional wall motion abnormalities. Right Ventricle: The right ventricular cavity was severely dilated in size. Right ventricular systolic function was moderately reduced. Pulmonic Artery: Pulmonary systolic pressure was severely increased, estimated to be 75 mmHg + right atrial pressure. Results Pending at Discharge: Test results still pending from this admission Procedure Component Value Units Date/Time Expanded Respiratory Viral Panel, PCR (Does not include influenza or RSV) [[id number]] Collected: 02/16/24 1207 Lab Status: In process Specimen: Swab from Nasopharynx Updated: 02/16/24 1239 MRSA PCR [[id number]] Collected: 02/16/24 1136 Lab Status: In process Specimen: Swab from Nares Updated: 02/16/24 1145 120 minutes of critical care time was spent in stabilization and coordination of care for transfer to [facility]. This included time at bedside, time reviewing laboratory results and studies and time spent communicating with [facility] and coordinating care. Without these measures patient was at imminent risk of . I personally spent > 30 minutes reviewing the chart, evaluating and examining the patient, counseling and preparing the patient for discharge, and coordinating follow up. Leda Ng MD 02/16/2024 12:57 documented in this encounter Medications at Time [...] Take 1 Tablet by mouth daily. 03/01/2024 amLODIPine (NORVASC) 10 mg tablet Take 1 Tablet by mouth daily. nystatin (MYCOSTATIN) 100,000 unit/mL suspension Take 5 mL by mouth 4 times daily for 4 days. 80 mL 02/29/2024 4 documented as of this encounter Discharge Disposition Disposition Code Departure Means Destination Comment s [facility] (Acute Care Facility) documented in this encounter Progress Notes * Dara Burnham, RD - 02/16/2024 3476 EST Brief Nutrition Notes Nsg generated consult for poor appetite, wgt loss, skin issues. Plan for d/c to [facility]. Currently NPO, unable to assess diet hx at this time. Current wgt down 4.7 kg x 1 day, question accuracy vs difference in scales vs fluid, IV lasix x2 noted this am. No further wgt hx in EMR, continue to monitor wgt daily, follow for trends. Skin fragile, redness to note, 2 pea sized areas to sacrum, pink slightly boggy heels and diffuse ecchymosis noted. Limited nutrition interventions indicated while NPO, reassess when diet advanced. Labs noted. Na low, BUN/Cr/K+ high, monitor. Hgb low, MCV elevated, consider checking B12, folate to r/o nutritional cause. Plan: Advance diet as clinically indicated --will f/u for diet ed --will f/u to assess need for supplements Monitor wgt daily Continue to monitor intake, wgt, labs, skin, bowels, comfort RD consult prn Dara Burnham MS, RD, CD * Toña Silver, RT - 02/16/2024 1345 EST Respiratory Consult/Progress Note Indications for Respiratory therapy:acute hypoxemic and hypercapnic resp failure, hx COPD Data Vitals: Heart Rate: 94 BPM, Resp: 20, SpO2: 96 % FIO2/O2 Device: O2 Flow Rate (L/min): 45 l/min, , O2 Device: High flow nasal cannula, FIO2 %: 55 % RT Orders: HFNC continuous Q4 eval Duoneb QID Symbicort BID Protocol Scoring: Bronchodilator/Inhalation Therapy Frequency Bronchodilator - Clinical Indications: History of COPD Breath Sounds: Any abnormal BS decreased Response: Mild response, increase subjective per WEIR FISHERMAN Pulse: <100 Resp Rate: 18-25 SOB: At rest Total Score: 5 Comment:: QID Frequency Based On Total Score: 0-4 = PRN 5-7 = QID 8-10 = Q4H 11-12 = Q2H Airway Clearance Therapy Frequency Airway Clearance - Clinical Indications: Infiltrate on CXR Breath Sounds: Clear / diminished Sputum: Small (tsp) / None Consistency: None Cough Effort: Weak/ productive Color: None Total Score: 2 Comment: PRN Frequency Based On Total Score: 0-3 = PRN 4-6 = QID and PRN 7-9 = Q4H and PRN 10-11 = Q2H and PRN Hyperinflation Therapy Frequency Hyperinflation - Clinical Indications: Prevent atelectasis Breath Sounds: Clear Surgery: No X-Ray / Atelectasis: No O2 Requirements: > 4 L above baseline Mobility Status: In chair Total: 5 Comment: Pt on HFNC Frequency Based On Total Score: 0-3 = PRN 4-6 = QID and PRN 7-9 = Q4H and PRN 10-12 = Q2H and PRN Action/Events Respiratory events; Pt remains on HFNC 45L 55%, pt desaturated to low 80s today after turns requiring up to 100% FIO2 for a few minutes to recover. Respiratory txs given as scheduled, continue qid bronchodilator per protocol and scoring, per daughter at bedside, pt does not take any respiratory medications at home butdoes wears 3L O2 31/10, which can be increased up to 5L if needed. Pt transferring to [facility] this afternoon for surgical procedure TOÑA SILVER, RT 02/16/24 * Hilary Guerrero - 02/16/2024 1139 EST Initial Case Management/Social Work Assessment and Discharge Plan/Readmission Risk Assessment REASON FOR ADMISSION: Closed right hip fracture, initial encounter ([facility]) Patient understands reason for admission: Yes PATIENT INFO VERIFIED: PCP, Contact Info, Address Type of housing (single family, condo, apartment, intermediate, single room occupancy, [facility] funded hotel room, group long-term) - House, two levels Who does the patient live with? Significant other Does the patient have access to their own bedroom/bathroom/kitchen - or is it shared with others? Shared Name of housing complex (ex [facility], [facility], etc)- n/a Housing Authority/Managing Organization - n/a Community Care Providers (case hardener, [facility] nurse, etc) name and contact information- n/a Discharge Delay Risk Assessment 2. Hospitalization: Unplanned admission 5. Nursing status at home: No Caregiver Major Barrier day total 1-6: 2 Minor or major discharge risk delay(s) present?: No discharge barriers identified Does the patient meet criteria to be escalated?: No LIVING ARRANGEMENTS AND ACCESSIBILITY ISSUES: Living Arrangements: Spouse / significant other Levels: 2 Stairs to enter: 3 Handicap access: Railings into home, Railings to upstairs Bathroom located on bedroom level?: Yes What in home social supports are available to the patient? Spouse / significant other Is 31/10 care available? Yes ADVANCED DIRECTIVES, POA &/or COLST IN PLACE: Healthcare Directive: No, patient does not have advance directive for healthcare treatment Information Provided on Healthcare Directives: No Information on Healthcare Directives Requested: No DIRECTIVES FOR FINANCES: Directive For Finances: No TRANSPORTATION: Transportation: Family Does the patient need discharge transport arranged?: No Expected Discharge on IV Antibiotics: No CULTURAL, RESTORATIONIST and/or LANGUAGE factors affecting health care/discharge planning: Spiritual/Cultural Requests: Bristle Machine Operator support Language/Literacy Needs Do you need us to provide any communication aids or devices?: No Insurance Information: Medical Insurance: Yes Type of insurance: Medicare, Supplemental plan to Medicare Medicare type: B, A Supplemental: [facility] Referred to patient financial services: No Nutrition: DISCHARGE RISK ASSESSMENT: Diagnosis of COPD Total # selected above: Score of 1 - 2: This patient is at LOW RISK for re-hospitalization Tentative plan to address the risk of re-hospitalization for those at HIGH MODERATE RISK: Refer to skilled home care services RAPT TOOL: Age: >75 Gender: Male Ambulation distance: 1-2 blocks Gait device: None Community Services: Two or more times a week Will you live with someone who will care for you?: Yes RAPT Tool Score: 8 Expected Discharge Disposition: Home Health Services SBIRT: FUNCTIONAL STATUS: Activities patient requires assistance: Food preparation/shopping Assistive Devices: Walker, Oxygen, Grab bars, Shower chair Walker type: Four wheel COMMUNITY RESOURCES/SUPPORTS: Primary Care Provider: SUZIE VILLAGOMEZ PCP Verified: Specialists: None Type of Home Health Services: Nurse visit DME Provider: Pharmacy: [id number] - [place], [place] - [phone] [facility] [facility] [phone] Home Health: [facility] Other: POST HOSPITAL TRANSITION PLAN: Patient confirmed demographics, contacts, PCP, and pharmacy. IM notice given today. No advance directive and no interest at this time. He lives in a two level house with his significant other, Gretchen. There is 3 steps with railing to enter. Bedrooms and bathrooms are on both floors. Patient is independent with ADLs and ambulation at baseline. He uses oxygen through [employer] (2-3L baseline). Owns a four wheeled walker, shower chair, and grab bars but is not using these. Gretchen helps with food prep only. No specialists. Active with [facility] (nursing and PT). CM confirmed this with [facility]. Patient was a transfer here from [facility]. He may need transfer to [facility], waiting to hear. If he remains here then [facility] is 02/23/24. His family will transport when ready. CM will continue to follow. HILARY GUERRERO 02/16/2024 11:39 * Dominique Goldstein MD - 02/16/2024 1110 EST MEDICAL ICU PROGRESS NOTE Date: 02/16/2024 ICU Day #: 19h Hospital Day #: 1 Assessment: The patient is a 83 y.o. male with COPD on 3-5L o2, atrial fibrillation (?not on anticoagulation) presented as transfer from [facility] for surgical management of right femoral neck fracture after a fall currently in the ICU with acute on chronic hypoxemic and respiratory failure Overnight significant events : Started on dilt drip for Afib with RVR. Pulmonary: Acute on chronic hypoxemic respiratory failure Multifactorial - Pulmonary edema, COPD. 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 Do not know if contributed by other etiologies as well Does not look overtly hypervolemic on exam but evidence of pulmonary edema Pro BNP 7520 PASP 75 +RAP on Echo Metolazone and lasix today Afib Will have pharmacy to confirm h/o anticoagulation since he will need a procedure in the comming days On dilt drip. Downtitrating NSTEMI Type II navidley demand related Trop trending down. Given all these comorbidities including severe pulmonary hypertension he is at a higher risk for perioperative complications. Anesthesia requested requesting transfer to [facility]. Discussed with him possibility of optimization and spinal anesthesia however best to transfer to a higher level of care at this time Renal: CHRISTIANO- Cr trending down with diuresis Infectious Disease: Being treated for CAP with ceftrixone Sputum cx if able Check strep legionella, MRSA swab Procal 3 at OSH. Repeat tomorrow Neuro: AAO DVT ppx: Start heparin GI ppx: PPI Lines/Tubs: PIV Code Status: DNR/DNI Subjective: He feels about the same is anxious to get the procedure done ROS: See above Social history significant for: reports that he has quit smoking. His smoking use included cigarettes. He does not have any smokeless tobacco history on file. He reports that he does not drink alcohol and does not use drugs. Family history significant for: family history is not on file. OBJECTIVE FINDINGS Vital Signs: BP Readings from Last 3 Encounters: 02/16/24 112/55 02/15/24 90/46 Pulse Readings from Last 3 Encounters: 02/16/24 (!) 107 02/15/24 (!) 112 Resp Readings from Last 3 Encounters: 02/16/24 15 02/15/24 20 Temp Readings from Last 3 Encounters: 02/16/24 37.1 ??C (98.8 ??F) (Oral) Wt Readings from Last 3 Encounters: 02/16/24 57.6 kg (127 lb) Physical Exam: Physical Exam Clinical Status: Over the past 24 hours, there has been a high probability of sudden, clinically significant or life threatening deterioration in the patient???s condition, which has required the highest level of preparedness to urgently intervene. Treatment has included life and/or organ supporting interventions that require frequent, personal assessment and manipulation by the provider. Withdrawal of, or failure to initiate these interventions on an urgent basis would likely result in sudden,clinically significant, or life threatening deterioration of the patient's condition. Critical Care time was provided in the form of interventions to treat and prevent further life threatening deterioration of the patient???s condition including: Neurological monitoring, Fluid and electrolyte management, Continuous renal replacement therapy, and Updating family during rounds, and high complexity decision making regarding need for additional imaging studies and / or interventional radiology interventions and the need for critical procedures. My bedside involvement was required to monitor and direct the critical care that has been provided.Exclusive of procedures, my critical care time is 45 minutes which was non-overlapping with other providers. Dominique Goldstein MD Pulmonary and Critical Care Attending 02/16/2024 * Ramiro Cruz RN - 02/16/2024 0920 EST 1456H Pt ordered transferred for surgery to [facility]. Report given to accepting RN. Transported via [facility]. VSS and stable on Hiflow O2. Grand daughter Dang Sue updated with plan. Upper dentures and home albuterol handed off to her. Pt left unit at 1442H Data: Pt S/P R pelvic closed FX Action/ Response: Pt continues on Hiflow w titratable settings due to pt no reserve on bed activity. Pt continues on Dilt gtt 10mg/hr Hr in the high 90's and bp wnl. PIP bundle instituted w q2hr turns. Decision for surgery schedule still pending. Plan: Pt monitoring ongoing RAMIRO MIMS RN 02/16/2024 9:20 * Marlene Maurer RT - 02/16/2024 0601 EST Respiratory Consult/Progress Note Indications for Respiratory therapy: SOB, Hypoxia,hx of COPD Data Vitals: Heart Rate: 104 BPM, Resp: 21, SpO2: 95 % FIO2/O2 Device: O2 Flow Rate (L/min): (S) 50 l/min, , O2 Device: (S) High flow nasal cannula (Off BIPAP, on HFNC), FIO2 %: (S) 55 % RT Orders: HFNC continuous NIV PRN Symbicort BID Duoneb QID Protocol Scoring: Bronchodilator/Inhalation Therapy Frequency Bronchodilator - Clinical Indications: History of COPD Breath Sounds: Any abnormal BS decreased Response: Mild response, increase subjective per WEIR FISHERMAN Pulse: >100 Resp Rate: 26-32 SOB: With exertion Total Score: 6 Comment:: QID Frequency Based On Total Score: 0-4 = PRN 5-7 = QID 8-10 = Q4H 11-12 = Q2H Airway Clearance Therapy Frequency Airway Clearance - Clinical Indications: Infiltrate on CXR Breath Sounds: Clear / diminished Sputum: Small (tsp) / None Consistency: None Cough Effort: Weak/ productive Color: None Total Score: 2 Comment: PRN Frequency Based On Total Score: 0-3 = PRN 4-6 = QID and PRN 7-9 = Q4H and PRN 10-11 = Q2H and PRN Hyperinflation Therapy Frequency Hyperinflation - Clinical Indications: Prevent atelectasis Breath Sounds: Clear Surgery: No X-Ray / Atelectasis: No O2 Requirements: > 4 L above baseline Mobility Status: In chair Total: 5 Comment: Pt on HFNC Frequency Based On Total Score: 0-3 = PRN 4-6 = QID and PRN 7-9 = Q4H and PRN 10-12 = Q2H and PRN Action/Events Respiratory events; Patient received last night his inhaler plus a PRN aerosol tx for sob.Breath sounds bilateral diminished. Patient found on HFNC at the beginning of the shift. At 18:56 patient on HFNC: 55L, 75%FiO2 At 19:08 patient on HFNC: 55L, 65%FiO2 At 20:28 patient on HFNC: 50L, 60%FiO2 At 23:15 patient was placed on BIPAP 12/6, 40% At 04:05 patient still on BIPAP 12/6, 40%. VBG was done. Results communicated to dr. Hassan. At 05:48 patient off BIPAP and placed on HFNC: 50L, 55%FiO2 Response/Results Weaning and Toleration of treatments; Titrate down the HFNC settings as able. RT TESSA 02/16/24 * Ramiro Cruz RN - 02/15/2024 1750 EST Data: Pt transferred to ICU at 1506H today for increased O2 needs Action/ Response: Pt transferred from [facility] s/p R pelvic closed Fx. Pt initially on med surg and moved to ICU for need for Hi flow which eventually went to BiPap. Pt barely tolerated bipap. Pt given ashort break as requested thru MD Goldstein. Pt tolerating Hiflow as of note. Plan: Pt monitoring ongoing RAMIRO MIMS RN 02/15/2024 17:51 * Ramiro Cruz, RN - 02/15/2024 1742 EST FOUR EYES SKIN ASSESSMENT Four Eyes skin assessment was performed on admission to the unit by Ramiro Mims RN and Ashley LOCK. Patient has the following devices at the time of this assessment: Babb and Oxymask . Device related pressure injury present? No Areas of concern: Fill in detail for areas of concern [] Occiput [x] Nose redness to ridge [] Ear [] Lip [] Scapula [] Spinous process [] Shoulder [] Elbow [] Iliac crest [x] Sacrum/coccyx 2 pea sized small areas to sacrum [] Ischial tuberosity [] Trochanter [] Knee [] Malleolus [x] Heel pink a bit boggy bill [] Toe [x] Other: diffused ecchyomosis all over. Right pelvis bruising 2/2 fall site Last Hernando Score: 15 Instructions: Add LDA for any identified wounds Add [place] image for any suspected PI or non surgical wounds Order wound consult if suspected PI identified If Hernando is < or = to 16, initiate Pressure Injury Prevention Bundle ([id number]). 02/15/2024 17:43 * Kimberly Joshi, RT - 02/15/2024 1556 EST Respiratory Consult/Progress Note Indications for Respiratory therapy: SOB, Hypoxia Data Vitals: Heart Rate: (!) 117 BPM, Resp: 28, SpO2: 100 % FIO2/O2 Device: O2 Flow Rate (L/min): 10 l/min, , O2 Device: BIPAP, FIO2 %: 50 % RT Orders: HFNC Continuous BiPAP Continuous Duoneb PRN Protocol Scoring: Bronchodilator/Inhalation Therapy Frequency Bronchodilator - Clinical Indications: History of COPD Breath Sounds: Clear Response: No change / no treatment Pulse: >100 Resp Rate: 26-32 SOB: At rest Total Score: 5 Comment:: QID Frequency Based On Total Score: 0-4 = PRN 5-7 = QID 8-10 = Q4H 11-12 = Q2H Airway Clearance Therapy Frequency Airway Clearance - Clinical Indications: Infiltrate on CXR Breath Sounds: Clear / diminished Sputum: Small (tsp) / None Consistency: None Cough Effort: Weak/ productive Color: None Total Score: 2 Comment: PRN Frequency Based On Total Score: 0-3 = PRN 4-6 = QID and PRN 7-9 = Q4H and PRN 10-11 = Q2H and PRN Hyperinflation Therapy Frequency Hyperinflation - Clinical Indications: Prevent atelectasis Breath Sounds: Clear Surgery: No X-Ray / Atelectasis: No O2 Requirements: > 4 L above baseline Mobility Status: In chair Total: 5 Comment: QID and PRN Frequency Based On Total Score: 0-3 = PRN 4-6 = QID and PRN 7-9 = Q4H and PRN 10-12 = Q2H and PRN Action/Events Respiratory events; Patient arrived from floors on 10L Oxymask. Patient placed on HFNC 45L 100%. VBG drawn, Patient placed on Bipap /. FiO2 weaned to 40%. Patient pulling at mask. Duoderm applied. Follow up VBG done. Patient refusing bipap at this time. MD Goldstein at bedside. Patient willing to wear after dinner per conversation with MD Goldstein. RT 02/15/24 * Paulette Mclean LPN - 02/15/2024 1527 EST Patient arrived via EMS on 8L of supplemental O2 via oxymask. Attempted to titrate and transfer to baseline NC, pt did not tolerate this. RT MD ai notified. Pt was transferred to ICU for higher level of care. Bedside report given, see flowsheets. Sacral border placed, Heel protector foams placed for prophylaxis. * Karma Baez RT - 02/15/2024 1434 EST Respiratory Consult/Progress Note Indications for Respiratory therapy: RT eval Data Vitals: , , FIO2/O2 Device: , , , RT Orders: N/A Protocol Scoring: Bronchodilator/Inhalation Therapy Frequency Frequency Based On Total Score: 0-4 = PRN 5-7 = QID 8-10 = Q4H 11-12 = Q2H Airway Clearance Therapy Frequency Frequency Based On Total Score: 0-3 = PRN 4-6 = QID and PRN 7-9 = Q4H and PRN 10-11 = Q2H and PRN Hyperinflation Therapy Frequency Frequency Based On Total Score: 0-3 = PRN 4-6 = QID and PRN 7-9 = Q4H and PRN 10-12 = Q2H and PRN Action/Events Respiratory events; Pt on 8L oxymask, BIBA. Pt states he wears 2.5L at home. BBS clear, though pt unable to produce a strong productive cough. Tachypneic at baseline, notified of pt requiring high o2 requirements andwould benefit from heated high flow. RT RESHMA 02/15/24 documented in this encounter H&P Notes * Krystian Anne MD - 02/15/2024 1407 EST Hospital Medicine Admission History & Physical Service Date: 02/15/2024 Admit Date: 02/15/24 Primary Care Provider: SUZIE VILLAGOMEZ Chief Complaint: Fall, right hip fracture HPI Bi Sue is a 83 y.o. male with a PMHx of COPD on 3-5 L oxygen at baseline and atrial fibrillation on aspirin (no record of anticoagulation in records from [facility]), who presents as a transfer from [facility] for surgical management of a right femoral neck fracture after a fall. Anesthesia at [facility] was uncomfortable with doing surgery there due to his oxygen requirements baseline and he has transferred here for surgical and anesthesiology evaluation. Workup in the ED at [place] was notable for white blood cell count 22,000, procalcitonin 3, creatinine 3, and potassium of 6. He was reported to have a baseline creatinine of about 1. He has no prior records available in our chart or in care everywhere. On arrival to [facility] he reports falling two days ago. He said he felt dizzy/lightheaded before falling and lost his balance. He denies tripping and was on the ground for 2-3 hours crawling around on his knees. He denies any recent fever, chills, chest pain, shortness of breath, or cough. He says thathe started to cough at [facility] once he was given a breathing treatment. He said he wears 3-4L O2 at home intermittently. He denies being on apixaban or any other blood thinner. His reported medications are aspirin, amlodipine, and metoprolol. Soon after arrival at [facility] he became hypoxic and was placedon increasing O2 up to 10L via oxymask and was then transferred up to the ICU. He is requesting DNR/ DNI. Review of Systems A complete 10 point ROS was performed and pertinent positive and negative findings listed in HPI, otherwise negative. Medical History COPD Chronic hypoxic respiratory failure Hypertension Surgical History Denies ever having surgery Social history Quit smoking ~15y ago Does not drink alcohol No family history on file. Home medications: Albuterol sulfate 90mcg/actuation q6h PRN Asprin 81mg daily Docusate sodium 100mg daily Umeclidinium 62.5 mcg-vilanterol 25 mcg/actuation powder inhaler (anoro ellipta) 1inh daily Amlodipine 10mg daily Metoprolol succinate 25mg ER daily Pantoprazole 40mg daily No Known Allergies Objective Vitals Temp: [36.7 ??C (98 ??F)] , Heart Rate: [104 BPM-168 BPM] , Pulse: [112] , Resp: [20-39] , BP: (90-123)/(46-69) , SpO2: [78 %-100 %] , O2 Flow Rate (L/min): 40 l/min Numeric Pain Level (Scale 1-10): 0 Weight: Weight : 62.3 kg (137 lb 4.8 oz) Body mass index is 20.28 kg/m??. Physical Exam GEN: alert, cooperative, no distress, appears stated age HEENT: MMM LUNG: Expiratory wheeze, decreased air movement, increased work of breathing, tachypnea, on oxymask CV: RRR, Normal S1/S2, No M/R/G ABD: soft, NT/ND; nl bowel sounds; no rebound or guarding, no organomegaly EXTRM: no edema Labs I have personally reviewed Recent Labs 02/15/24 1519 WBC 21.84* RBC 4.54 HGB 14.5 HCT 44.8 MCV 99* MCH 31.9 MCHC 32.4* PLT 151 NEUTROABS 19.49* Recent Labs 02/15/24 1519 NA 136 K 5.3* CL 102 CO2 22 BUN 65* CREATININE 2.50* CALCIUM 8.1* LABALBU 3.1* Recent Labs 02/15/24 1751 TROPONINI 0.403* Recent Labs 02/15/24 1519 TBIL 0.7 ALKPHOS 109 AST 49* ALT 68* Imaging I have independently visualized images No results found.. Assessment Bi Sue is a 83 y.o. male with a PMHx significant for COPD with chronic hypoxic respiratory failure (3-5L home oxygen), atrial fibrillation (not on anticoagulation), and hypertension, who is admitted as a transfer from [facility] for surgical management of a right femoral neck fracture. Admission has been complicated by acute on chronic hypoxic and hypercarbic respiratory failure 2/2 COPD exacerbation and community acquired pneumonia. He is now on HFNC vs BiPAP in the ICU. Per report from [facility], he is on apixaban and last took it the night of 02/13. However, he denies taking this medication and it isn't listed in his home medications in the list provided on the records from [facility]. Plan Acute on chronic hypoxic and hypercarbic respiratory failure 2/2 COPD exacerbation and community acquired pneumonia: Has had difficulty tolerating the BiPAP and is now on HFNC. Minimal improvement inpH and pCO2 with BiPaP. Continues to confirm DNR/DNI. COVID/flu/RSV negative. -HFNC vs BiPaP -Appreciate RT assistance -Critical care consulted, appreciate recommendations -Repeat VBG PRN -Maintain SpO2 88-92% -Duonebs 4x daily -Replace [employer] Anoro Ellipta with Symbicort - Ceftriaxone and doxycycline -Prednisone 40mg daily -Trial of 40mg IV furosemide x1 Fall and right femoral neck fracture: Not on anticoagulation [employer] based on records. Will need to seean improvement in his pulmonary status before proceeding with surgery. Concern for undiagnosed pulmonary HTN with his history of COPD and partially treated chronic hypoxia. CK mildly elevated at 272. -Echocardiogram -Orthopedics consulted, appreciate recommendations -Scheduled tylenol -Hydromorphone 2mg PO PRN -N.p.o. after midnight in case his respiratory status improves by morning -PT after surgery -Repeat CK tomorrow Elevated Troponin: Likely type 2 NSTEMI from acute on chronic hypoxia and hypercarbia. No chest pain. -Troponin q8h -Telemetry -Echocardiogram -Would reach out to Cardiology and start heparin gtt if troponin trending up Elevated NT proBNP: 7520 on admission. No history of heart failure in our records. -Echocardiogram -Furosemide 40 mg IV x 1 -Strict I's and O's -Daily weights Soft blood pressures on a background of hypertension: -hold [employer] amlodipine and metoprolol Elevated creatinine, hyperkalemia: Reported to have a creatinine of 3 at [facility] and it is 2.5 here. Received report that he has a baseline creatinine of 1, but I am unable to confirm this. Hyperkalemia is mild. -Daily BMP -Strict I's and O's Gerd: -Continue [employer] pantoprazole VTE Prophylaxis Seqential Compression Device Code: No Active Order Discharge Plan Home or self care Consults Pulmonology/critical care Admission status Inpatient admission due to anticipated duration of hospitalization is two midnights or greater due to right hip fracture. Total critical care time, exclusive of procedures: 60 minutes of critical care time. All time was spent on the patient's care unit and includes (but is not limited to) evaluation of the patient, reviewing the medical chart, managing medical interventions, discussing with consultants, determining treatment decisions, and frequent reassessment of the patient's condition. Time was necessary due to ahigh probability of imminent or life-threatening deterioration in the patient's condition that placed the patient at risk of decompensation and due to pulmonary collapse. Krystian Anne MD 02/15/2024 18:53 documented in this encounter Consult Notes * Dominique Goldstein MD - 02/15/2024 1730 ESTAssociated Order(s): CONSULT PULMONOLOGY MICU CONSULT Date of Service: 02/16/2024 Requesting Provider: Chief Complaint/ Reason for ICU Admission: Acute hypoxemic and hypercapnic respirably failure HPI: Bi Sue is a 83 y.o.male with COPD on 3-5L o2, atrial fibrillation (?not on anticoagulation) presented as transfer from [facility] for surgical management of right femoral neck fracture after a fall. Unable to obtain detailed history from the patient. On arrival to [facility], he is in respiratory distress with diminished breath sounds, he was placed on BiPAP however he has trouble tolerating BiPAP switched to high flow nasal cannula. He is more comfortable on HFNC. He denies any new respiratory complaints. He says he is here as he fell He reports feeling lightheaded and falling on the ground. Denies any recent fever or chills or change in breathing or new cough. He says he did not feel sick was at his baseline at the time of the fall. He denies being on blood thinners. Review of Systems: A ten point review of systems was performed. Pertinent positives are listed above, all others are negative. PMH PSH No past medical history on file. No past surgical history on file. Social History Family History Social History Tobacco Use Smoking status: Former Current packs/day: 0.00 Types: Cigarettes Smokeless tobacco: Not on file Substance Use Topics Alcohol use: Never No family history on file. Medications No medications prior to admission. Allergies No Known Allergies Vitals: BP: (90-133)/(46-69) Pulse From Oximetry: [57 BPM-122 BPM] Resp: [15-39] SpO2: [78 %-100 %] on HFNC Temp: [36.6 ??C (97.8 ??F)-37.1 ??C (98.8 ??F)] Oxygen Support 02/16/24 since midnight Last vital signs Temp: 37.1 ??C (98.8 ??F) Pulse: (!) 107 Resp: 15 BP: 112/55 SpO2: 95 % O2 Flow Rate (L/min): 50 l/min FIO2 %: 55 % Physical Exam: Gen: laying in bed, respiratory distress, ill appearing HEENT: sclerae white, PERRL CV: RRR, S1/S2, no murmurs Lungs: Symmetric chest expansion. Diminished breath sounds Abd: + bowel sounds, non-distended, no pain to palpation Ext: no edema b/l Skin: warm and dry Neuro: Awake and responsive I&Os: Intake/Output Summary (Last 24 hours) at 02/16/2024 0941 Last data filed at 02/16/2024 0841 Gross per 24 hour Intake 172 ml Output 1545 ml Net -1373 ml Labs: CBC: Recent Labs 02/15/24 15102/16/24 0536 WBC 21.84* 19.87* HGB 14.5 13.4* MCV 99* 97* PLT 151 140* NEUTROABS 19.49* -- No results for input(s): [id number], FOLATE in the last 72 hours. BMP: Recent Labs 02/15/24 1519 02/16/24 0537 NA 136 134* K 5.3* 5.3* CL 102 99 CO2 22 29 BUN 65* 70* CREATININE 2.50* 2.30* CALCIUM 8.1* 7.8* LABALBU 3.1* -- Coags: No results for input(s): PROTIME, INR, PTT in the last 72 hours. LFT: Recent Labs 02/15/241518 TBIL 0.7 ALKPHOS 109 AST 49* ALT 68* D-dimer: No results for input(s): DDIMER, LDH, FIBRINOGEN in the last 72 hours. ABG: No results for input(s): PHISTAT, PCOISTAT, POISTAT, POCTCO2, X4OBAQIV, BEART, BDART, POCFIO2 in the last 72 hours. VBGs: No results for input(s): PHVENOUS, [id number] in the last 72 hours. Inflammatory Markers: No results for input(s): SEDRATE, CRP in the last 72 hours. Pro-Santiago: No results for input(s): PROCAL in the last 72 hours. Lactic Acid: No results for input(s): LACTICACID, LACTATE in the last 72 hours. Cardiac Markers: Recent Labs 02/15/24 1519 02/15/24 1751 02/16/24 0135 02/16/24 0537 CK 272* -- -- 114 TROPONINI -- 0.403* 0.323* -- No results for input(s): LDH, FIBRINOGEN in the last 72 hours. UA: BGLs: No results for input(s): GLUCOSEPOC in the last 72 hours. Urinalysis: No results for input(s): GLUCOSEU, BILIRUBINUR, KETONES, LABSPEC, BLOODU, RBCU, PROTEINUA, WBCU, NITRITE, LEUKESTER, BACTERIA, SQUAMOUSUA in the last 72 hours. Imaging: Personally reviewed: No results found. Microbiology- Blood cultures: NA Urine: NA COVID-19 negative neg Assessment: Bi Sue is a 83 y.o.male with COPD on 3-5L o2, atrial fibrillation (?not on anticoagulation)presented as transfer from [facility] for surgical management of right femoral neck fracture after a fall currently with acute on chronic hypoxemic and respiratory failure Plan: Pulmonary: Acute on chronic hypoxemic respiratory failure Multifactorial - Pulmonary edema, COPD. Also cannot rule out infection/aspiration Pleural effusions and edema noted on lung bases on CT abdomen CXR concerning for congestion/infiltrates especially at the bases Lasix 60 IV X 1 Duoneb q4h On ceftriaxone Cardiac: Heart failure and concern for pulmonary HTN Does not look overtly hypervolemic on exam but evidence of pulmonary edema Pro BNP 7520 Obtain TTE Diuresis with net negative goal 1.5L Afib Will have pharmacy to confirm h/o anticoagulation since he will need a procedure in the comming days Rate control if needed NSTEMI Type II [facility] demand related Renal: CHRISTIANO- monitor Infectious Disease: Being treated for CAP with ceftrixone Sputum cx if able Check strep legionella, MRSA swab Procal 3 at OSH Heme/Onc: Dvt pPPX Neuro: AAO DVT ppx: held. Start heparin GI ppx: PPI Code status: DNR DNI During today's care, there has been a high probability of sudden, clinically significant, deterioration in the patient's condition, which has required constant monitoring and life/organ supporting interventions by a physician. Failure to initiate these interventions urgently could result in a sudden deterioration in the patient's condition or . Critical Care time was provided in the form of interventions to treat and prevent further life threatening deterioration of the patient???s condition including: management of non-invasive ventilation, fluid and electrolyte management, management of cardiac arrhythmias, and updating family during rou nds, and high complexity decision making My bedside involvement was required to monitor and direct the critical care that has been provided.Exclusive of procedures, my critical care time is 45 minutes. Dominique Goldstein MD Pulmonary and Critical Care Medicine Attending * Buzz Freed MD - 02/15/2024 1706 ESTAssociated Order(s): CONSULT ORTHOPAEDIC SURGERY Orthopaedics Consult Date of Service: 02/15/2024 CC: Displaced right femoral neck fracture HPI: Bi Sue is a 83 y.o. male who fell yesterday and presented to [facility] where workup revealed a displaced right femoral neck fracture. He also however has severe baseline COPD that has been exacerbated and was not felt to be appropriate for treatment there and transferred to [facility] for medical stabilization and care prior to surgical intervention. History includes Eliquis anticoagulation. He has had a number of lab abnormalities with hyperkalemia leukocytosis abnormal procalcitonin and possible demand ischemia. He has had increased oxygen demands from his baseline of 5 L. He is currently in the ICU and has a facemask BiPAP which makes it difficult for him to be involved in long conversation. He does ask that after surgery his granddaughter be called. PCP: SUZIE VILLAGOMEZ PMH: has no past medical history on file. PSH: has no past surgical history on file. Soc Hx: reports that he has quit smoking. His smoking use included cigarettes. He does not have anysmokeless tobacco history on file. He reports that he does not drink alcohol and does not use drugs. - lives at [address] [place] [address] Hx: family history is not on file. Meds: cefTRIAXone, doxycycline, influenza vaccine trivalent adjuvanted 2023- PF (65 yrs+), Allergies: No Known Allergies ROS: Negative except in HPI Exam: Temp (24hrs), Av.7 ??C (98 ??F), Min:36.7 ??C (98 ??F), Max:36.7 ??C (98 ??F) Blood pressure 111/58, temperature 36.7 ??C (98 ??F), temperature source Axillary, resp. rate (!) 31, height 175.3 cm (69), weight 62.3 kg (137 lb 4.8 oz), SpO2 94%. Examination reveals a thin 83-year-old who is tachypneic. His extremities are warm and well-perfused his pressure and pulse are adequate he can move his feet the right leg is slightly shortened. His abdomen is soft. His pulses brisk. Data Review Na/K/Cl/CO2: 136/5.3/102/22 (02/14 1519) BUN/Cr/glu/ALT/AST/amyl/lip: 65/2.50/156/68/49/--/-- (02/14 1519) WBC/Hgb/Hct/Plts: 21.84/14.5/44.8/151 (02/14 1519) No results found for: CRP No results found for: SEDRATE Recent Results (from the past 24 hour(s)) SARS COV2, FLU A/B, RSV DETECT BY PCR Collection Time: 02/15/24 15:13 Specimen: Nasopharynx; Swab Result Value Ref Range FLU A RNA Result (FLARES) Negative Negative FLU B RNA Result (FLBRES) Negative Negative RSV RNA Result (RSVRES) Negative Negative COVID-19 rt-PCR Result Negative Negative Assessment: Bi Sue is a 83 y.o. male with radiographs which I reviewed confirming a displaced subcapital right femoral neck fracture that would be best treated with a cemented hip hemiarthroplasty. This would best be done however once he is medically optimized with appropriate hospitalist and anesthesia comanagement. We will hold the Eliquis expecting he may benefit from spinal anesthesia and he willbe having an echo tomorrow. Plan: I reviewed the surgical procedure with him and he was consented today for right hip hemiarthroplasty with myself or my partners when he is medically optimized. Discussed with: Aquiles Sullivan, Rafi Ng, Dr. Alan Freed MD documented in this encounter Miscellaneous Notes * Wound Care - Cathy Chavez RN - 02/16/2024 1247 EST Initial Wound Care Consult [facility] In-Patient box printer Service Service Date: 02/16/2024 Admit Date: 02/15/2024 Hospital Day: 1 Consult request by: Kiet LOCK on 02/16/24 Reason for consult: patient with two stage 2-3 pressure injuries to sacrum Admission: Bi Sue is a 83 y.o. yo person transferred from [facility] ED for surgery of right femoral neck fx s/t fall subsequently found to have COPD exacerbation and CAP with increased oxygen demands. Pertinent medical, surgical and social history includes: COPD on 3-5 liters baseline, atrial fibrillation, HTN Pertinent wound history includes: Skin breakdown to sacrum noted on admission I did not personally assess Bi's gluteal skin today. Per Ramiro RN he is not tolerating significant turning without desaturating into the 70s. I do not feel that an in-person assessment given that compromise would offer additional benefit and that I can offer interventions based on photo and chart review. Gluteal skin on admission Clinical Photos - Sacrum (02/15/2024) There appear to be two discrete superficial full thickness wounds to sacrum (midline and right proximal) with large area of erythema to sacralcoccygeal region. Unknown if the erythema is blanching ornot as this has not been documented. I suspect the entire sacralcoccygeal region is an evolving pressure injury. Presence of subcu tissue indicates at least Stage 3, however evolving DTI can not be ruled out yet. Ramiro advises that PIP interventions are in place; including z-lonnie positioner pillow. There is a foam sacral border in place over open wounds to sacrum. I did recommend a specialty mattress with alternating pressure features - transfer to Isolibrium (aka 'ICU') bed given limited turning surfaces. Per ASHVIN Rubio, Bi is expected to transfer to tertiary care facility for surgery s/t cardiopulmonary status. Recommendations Evolving PI to sacral-coccygeal region: Cleanse open wounds with normal saline and protect with foam border. Use Medline Prevent silicone ointment to intact gluteal skin around border dressing. If unable to maintain border dressing x 24 hours s/t incontinence then discontinue and instead protect area with medline Protect zinc-ointment. Strict Pressure Injury Prevention: Evaluate the need for specialty surface - A specialty surface is recommended for alternating pressure features, IsoLibrium, IsoAir or similar Every 2 hour turning and repositioning Chair: waffle cushion OOB 1 hour only for total assist Float heels off mattress at all times MAPS equipment for repositioning Prophylactic foam dressings Dri flow chux Apply moisture barrier cream twice daily & each episode of incontinence Fecal or urinary diversion devices as indicated Proactive toileting Nutritional supplements Discussed with Ramiro LOCK. Cathy Chavez, MSN, RN, CWCN In-patient box printer Please contact the wound care team via SyncSum chat group [facility] Wound Care Team with questions or concerns. * Plan of Care - Nicole Kaur - 02/16/2024 1156 EST Patient is being ruled out for respiratory viruses. Please maintain droplet precautions. Do not cohort at this time. Please message [facility] Infection Prevention via Secure Chat with questions. * Plan of Care - Hilary Guerrero - 02/16/2024 1134 EST 02/16/24 1134 Medicare IM Notice IM notice status Patient received notification verbally and in writing while in hospital. IM notice given on admission? Yes * Plan of Care - Kiet Pratt RN - 02/15/2024 1946 EST Problem: High Fall Risk: Goal: Patient will Remain Free of Falls due to Med. Side Effects Outcome: Ongoing 02/14: Pt remains a high-fall risk. He is bed alarmed, babb cath intact and rounded on hourly. MV Assumed care of patient at 1900. Pt in bed, resting with hi-flow O2 in place 65%,55 L with an O@ sat of 98%. Pt alert and oriented x3. He is very tired and denies pain. His vital signs are stable. His lung sounds are diminished. He reports his last BM yesterday. Babb cath is intact and draining. Two PIV's in the right arm are intact and have been flushed. Pt is bed alarmed. Pt has an order for NPO after midnight for possible surgery for right hip fracture. At 2009 Dr. Anne notified of patient being in a-fib, diltiazem drip ordered. Pt on bi-pap from 2300 until 0550. Pt is now on hi-flow 55%, 50 L. documented in this encounter Plan of Treatment Upcoming Encounters Date Type Department Care Team (Late st Contact Info) Description 04/05/2024 10:15 EST Appointment [facility] Xray [address] [place] [address] 04/05/2024 10:30 EST Post-op Visit [facility] - [facility] [address] [place], [place] [id number] Ko Marquis PA-C [address] [place] [id number] documented as of this encounter Procedures Procedure Name Priority Date/Time Associated Diagnosis Comments ECG REPORT - SCANNED 02/19/2024 14:12 EST EXPANDED RESPIRATORY VIRAL PANEL, PCR (DOES NOT INCLUDE INFLUENZA OR RSV) Routine 02/16/2024 12:07 EST POCT GLUCOSE, INTERFACED Routine 02/16/2024 11:39 EST MRSA PCR Routine 02/16/2024 11:36 EST STREPTOCOCCUS PNEUMONIAE ANTIGEN, URINE Routine 02/16/2024 11:36 EST LEGIONELLA ANTIGEN DETECTION, URINE Routine 02/16/2024 11:36 EST XR CHEST PORTABLE 1 VIEW STAT 02/16/2024 10:59 EST ECG REPORT - SCANNED 02/16/2024 10:05 EST TROPONIN I Routine 02/16/2024 9:34 EST TRANSTHORACIC ECHO (TTE) COMPLETE STAT 02/16/2024 6:35 EST POCT BLOOD GAS, CG8 I-STAT Routine 02/16/2024 5:41 EST CK Routine 02/16/2024 5:37 EST BASIC METABOLIC PANEL (BMP) Routine 02/16/2024 5:37 EST HN LAB CBC SMEAR REVIEW Today 02/16/2024 5:36 EST COMPLETE BLOOD COUNT Routine 02/16/2024 5:36 EST WOUND EVALUATION AND TREAT Routine 02/16/2024 5:02 EST TROPONIN I Routine 02/16/2024 1:35 EST TROPONIN I Routine 02/15/2024 17:51 EST POCT BLOOD GAS, CG8 I-STAT Routine 02/15/2024 17:00 EST EKG 12-LEAD Routine 02/15/2024 16:26 EST POCT BLOOD GAS, CG8 I-STAT Routine 02/15/2024 15:20 EST HOLD LAVENDER TOP Routine 02/15/2024 15: 19 EST HOLD GREEN TOP Routine 02/15/2024 15:19 EST COMPLETE BLOOD COUNT AND DIFFERENTIAL Add-On 02/15/2024 15:19 EST NT PRO BNP Add-On 02/15/2024 15:19 EST CK Routine 02/15/2024 15:19 EST COMPREHENSIVE METABOLIC PANEL (CMP) Add-On 02/15/2024 15:19 EST SARS COV2, FLU A/B, RSV DETECT BY PCR Routine 02/15/2024 15:13 EST documented in this encounter Results * ECG REPORT - SCANNED (02/19/2024 14:12 EST) 02/19/2024 14:1 2 EST us Scan 2 Systems Management Consultant PROCEDURE/MINOR SURGICAL OR DERABLES Final Result * EXPANDED RESPIRATORY VIRAL PANEL, PCR (DOES NOT INCLUDE INFLUENZA OR RSV) (02/16/2024 12:07 EST) Paraflu Type 1 Rslt (PF1RES) Negative Negative 02/17/2024 1:26 [facility] Paraflu Type 2 Rslt (PF2RES) Negative Negative 02/17/2024 1:26 [facility] Paraflu Type 3 Rslt (PF3RES) Negative Negative 02/17/2024 1:26 [facility] Paraflu Type 4 Rslt Negative Negative 02/16 1:26 [facility] Rhinovirus RNA Rslt (RVRES) Negative Negative 02/17/2024 1:26 [facility] Metapneumovirus RNA Rslt (HMVRES) Negative Negative 02/17/2024 1:26 [facility] Adenovirus DNA Rslt (ADVRES) Negative Negative 02/17/2024 1:26 [facility] Swab NASOPHARYNGEAL STRUCTURE / Unknown Swab / Unknown 02/16/2024 12:07 EST 02/16/2024 12:39 EST us Dominique Goldstein MD MICROBIOLOGY - GENERAL ORDERABLE S Final Result [facility] [address] [place] [address] * (ABNORMAL) POCT GLUCOSE, INTERFACED (02/16/2024 11:39 EST) Glucose, POC 177(H) 70 - 100 mg/dL 02/16/2024 11:42 EST [facility] HN LAB POC COMMENT (GLUCOSE) [facility] 02/16/2024 11:42 EST [facility] Blood CAPILLARY BLOOD / Unknown 02/16/2024 11:39 EST 02/16/2024 11:42 EST Leda Ng MD POINT OF CARE TEST ORDERA BLES Final Result Performing Organization Address [facility]/ZIP Co de Phone Number [facility] [address] [place] [phone] * MRSA PCR (02/16/2024 11:36 EST) MRSA PCR Not Detected Not Detected 02/16/2024 13:27 [facility] Comment:MRSA target DNA is n ot detected (presumed not colonized with MRSA). Swab BOTH ANTERIOR NARES / Unknown Swab / Unknown 02/16/2024 11:36 EST 02/16/2024 11:45 EST Dominique Goldstein MD MICROBIOLOGY - GENERAL ORDERABLE S Final Result Performing Organization Address [facility] Co de Phone [facility] [address] [place] [phone] * LEGIONELLA ANTIGEN DETECTION, URINE (02/16/2024 11:36 EST) Legionella Antigen Detection Negative Negative 02/16/2024 12:33 EST [facility] Urine URINE / Unknown Urine Collect / Unknown 02/16/2024 11:36 EST 02/16/2024 11:45 EST Narrative [facility] - 02/16/2024 12:33 EST Negative [...] ORDERABLE S Final Result Performing Organization Address [facility]/ZIP Co de Phone Number [facility] [address] [place] [address] * STREPTOCOCCUS PNEUMONIAE ANTIGEN, URINE (02/16/2024 11:36 EST) Strep Pneumo Ag Detection, Urine Negative Negative 02/16/2024 12:33 EST [facility] Urine URINE / Unknown Urine Collect / Unknown 02/16/2024 11:36 EST 02/16/2024 11:45 EST Narrative [facility] - 02/16/2024 12:33 EST Presumptive negative for pneumococcal pneumonia, suggesting no current or recent infection. ??Infection due to S.pneumoniae cannot be ruled out since the antigen present in the sample may be below detection limit of the test. Dominique Goldstein MD MICROBIOLOGY - GENERAL ORDERABLE S Final Result Performing Organization Address [facility] Co de Phone Number [facility] [address] [place] [address] * XR CHEST PORTABLE 1 VIEW (02/16/2024 10:59 EST) Anatomical Region Laterality Modality Computed Radiogr aphy 02/16/2024 11:0 5 EST Impressions 02/16/2024 11:05 EST Small bilateral pleural effusions. Slight interval increase in patchy airspace opacities at both lung bases and in the suprahilar right lung. [id number] Narrative 02/16/2024 11:05 EST XR CHEST PORTABLE [...] findings: ??Normal. Bones: Normal. Resulting Agency Comment [id number] Procedure Note Aaron Boone MD - 02/16/2024 [...] bases and in the suprahilar right lung. [id number] us Leda Ng MD IMG DIAGNOSTIC IMAGING OR DERABLES Final Result * ECG REPORT - SCANNED (02/16/2024 10:05 EST) 02/16/2024 10:0 5 EST us Scan 2 Systems Management Consultant PROCEDURE/MINOR SURGICAL OR DERABLES Final Result * (ABNORMAL) TROPONIN I (02/16/2024 9:34 EST) Troponin I (ng/mL) 0.244(H) <0.034 ng/mL 02/16/2024 10:14 EST [facility] Blood VENOUS BLOOD / Unknown Venipuncture / Unknown 02/16/2024 9:34 EST 02/16/2024 9:40 EST Narrative [facility] - 02/16/2024 10:14 EST The results of this assay can be falsely lowered due to the consumption of Biotin. us Krystian Anne MD CHEMISTRY & BLOOD GAS ORDERAB LES Final Result [facility] [address] [place] [address] * TRANSTHORACIC ECHO (TTE) COMPLETE W/DOPPLER W/CF [...] BLOOD GAS, CG8 I-STAT (02/16/2024 5:41 EST) pH, Venous, i-STAT 7.44(H) 7.31 - 7.41 02/16/2024 5:43 [facility] pCO2, Venous, i-STAT 45 41 - 51 mmHg 02/16/2024 5:43 [facility] pO2, Venous, i-STAT 41 30 - 50 mmHg 02/16/2024 5:43 [facility] TCO2, Venous, i-STAT 32(H) 22 - 28 mmol/L 02/16/2024 5:43 [facility] O2 Saturation, Venous, i-STAT 78 60 - 85 % 02/16/2024 5:43 [facility] Base Excess(+) / Deficit(-), Venous, i-STAT 6(H) -2 - 3 mmol/L 02/16/2024 5:43 [facility] Blood VENOUS BLOOD / Unknown 02/16/2024 5:41 EST 02/16/2024 5:43 EST Narrative [facility] - 02/16/2024 5:43 EST Test Performed by Respiratory us Lacey Hassan DO POINT OF CARE TEST ORDERABL ES Final Result [facility] [address] [place] [address] * (ABNORMAL) BASIC METABOLIC PANEL (BMP) (02/16/2024 5:37 EST) Sodium 134(L) 136 - 145 mmol/L 02/16/2024 6:05 [facility] Potassium 5.3(H) 3.5 - 5.0 mmol/L 02/16/2024 6:05 [facility] Comment:Moderate hemolysis i dentified, interpret with caution as hemolysis will elevate potassium result. Chloride 99 96 - 110 mmol/L 02/16/2024 6:05 [facility] CO2 Total 29 22 - 32 mmol/L 02/16/2024 6:05 [facility] Anion Gap 6 5 - 14 mmol/L 02/16/2024 6:05 [facility] Glucose 186(H) 70 - 99 mg/dl 02/16/2024 6:05 [facility] Calcium 7.8(L) 8.5 - 10.5 mg/dL 02/16/2024 6:05 [facility] BUN 70(H) 10 - 26 mg/dL 02/16/2024 6:05 [facility] Comment:Moderate hemolysis i dentified, interpret with caution as results may be affected due to hemolysis. Creatinine 2.30(H) 0.66 - 1.25 mg/dL 02/16/2024 6:05 [facility] eGFR 27(L) >60 mL/min/1.7 3m2 02/16/2024 6:05 [facility] Blood VENOUS BLOOD / Unknown Venipuncture / Unknown 02/16/2024 5:37 EST 02/16/2024 5:43 EST us Homer Tan MD CHEMISTRY & BLOOD GAS ORDERABLE S Final Result [facility] [address] [place] [address] * CK (02/16/2024 5:37 EST) CK 114 <=250 U/L 02/16/2024 6:05 [facility] Comment:Moderate hemolysis i dentified, interpret with caution as results may be affected due to hemolysis. Blood VENOUS BLOOD / Unknown Venipuncture / Unknown 02/16/2024 5:37 EST 02/16/2024 5:43 EST us Krystian Anne MD CHEMISTRY & BLOOD GAS ORDERAB LES Final Result Performing Organization Address City/[facility]/ZIP Co de Phone Number [facility] [address] [place] [address] * HN LAB CBC SMEAR REVIEW (02/16/2024 5:36 EST) Differential Comment Slide was examined by a technologist to verify the WBC and/or platelet count. 02/16/2024 6:01 [facility] Blood VENOUS BLOOD / Unknown Venipuncture / Unknown 02/16/2024 5:36 EST 02/16/2024 5:43 EST us Homer Tan MD HEMATOLOGY & PF4 ORDERABLES Fin al Result Performing Organization Address [facility] Co de Phone Number [facility] [address] [place] [address] * (ABNORMAL) COMPLETE BLOOD COUNT (02/16/2024 5:36 EST) WBC 19.87(H) 4.00 - 10.40 K/cmm 02/16/2024 6:01 [facility] RBC 4.14(L) 4.36 - 5.78 M/cmm 02/16/2024 6:01 [facility] Hemoglobin 13.4(L) 13.8 - 17.3 g/dL 02/16/2024 6:01 [facility] HCT 40.3 39.5 - 50.2 % 02/16/2024 6:01 [facility] MCV 97(H) 81 - 95 fL 02/16/2024 6:01 [facility] MCH 32.4 27.6 - 33.0 pg 02/16/2024 6:01 [facility] MCHC 33.3 32.8 - 36.4 g/dL 02/16/2024 6:01 [facility] RDW-CV 14.9(H) <14.2 % 02/16/2024 6:01 [facility] RDW-SD 53.8(H) <46.0 fl 02/16/2024 6:01 [facility] PLT 140(L) 141 - 377 K/cmm 02/16/2024 6:01 [facility] Blood VENOUS BLOOD / Unknown Venipuncture / Unknown 02/16/2024 5:36 EST 02/16/2024 5:43 EST us Homer Tan MD HEMATOLOGY & PF4 ORDERABLES Fin al Result Performing Organization Address [facility]/ZIP Co de Phone Number [facility] [address] [place] [address] * (ABNORMAL) TROPONIN I (02/16/2024 1:35 EST) Troponin I (ng/mL) 0.323(H) <0.034 ng/mL 02/16/2024 2:32 EST [facility] Blood VENOUS BLOOD / Unknown Venipuncture / Unknown 02/16/2024 1:35 EST 02/16/2024 1:43 EST Narrative [facility] - 02/16/2024 2:32 EST The results of this assay can be falsely lowered due to the consumption of Biotin. us Krystian Anne MD CHEMISTRY & BLOOD GAS ORDERAB LES Final Result [facility] [address] [place] [address] * (ABNORMAL) TROPONIN I (02/15/2024 17:51 EST) Troponin I (ng/mL) 0.403(H) <0.034 ng/mL 02/15/2024 18:30 EST [facility] Blood VENOUS BLOOD / Unknown Venipuncture / Unknown 02/15/2024 17:51 EST 02/15/2024 17:58 EST Narrative [facility] - 02/15/2024 18:30 EST The results of this assay can be falsely lowered due to the consumption of Biotin. us Krystian Anne MD CHEMISTRY & BLOOD GAS ORDERAB LES Final Result Performing Organization Address [facility] Co de Phone Number [facility] [address] [place] [address] * (ABNORMAL) POCT BLOOD GAS, CG8 I-STAT (02/15/2024 17:00 EST) Pathologist [facility] pH, Venous, i-STAT 7.28(L) 7.31 - 7.41 02/15/2024 17:04 [facility] pCO2, Venous, i-STAT 63(H) 41 - 51 mmHg 02/15/2024 17:04 [facility] pO2, Venous, i-STAT 30 30 - 50 mmHg 02/15/2024 17:04 [facility] TCO2, Venous, i-STAT 31(H) 22 - 28 mmol/L 02/15/2024 17:04 [facility] O2 Saturation, Venous, i-STAT 47(L) 60 - 85 % 02/15/2024 17:04 [facility] Base Excess(+) / Deficit(-), Venous, i-STAT 3 -2 - 3 mmol/L 02/15/2024 17:04 [facility] Blood VENOUS BLOOD / Unknown 02/15/2024 17:00 EST 02/15/2024 17:04 EST Narrative [facility] - 02/15/2024 17:04 EST Test Performed by Respiratory us Krystian Anne MD POINT OF CARE TEST ORDERABLES Final Result Performing Organization Address [facility]/ZIP Co de Phone Number [facility] [address] [place] [address] * EKG 12-LEAD (02/15/2024 16:26 EST) 02/15/2024 16:2 6 EST Narrative [facility] 02/16/2024 9:57 EST ? [facility] ? Test Date: ?2024-02-15 Pat Name: ? BI SUE ? Department: ? Room: ? 305 Gender: ? Male ? Calibration Laboratory Technician: ?? CS : ?1940 ? Requested By: YURY NAYLOR Order Number: [id number] ? Reading MD: ?? CARLOS ALBERTO REYNOLDS MD ? Measurements Intervals ?[place] ? Rate: ? 110 ?P: ?77 [place]: ? 138 ?QRS: ?-19 QRSD: ? 120 [...] Note Carlos Alberto Reynolds MD - 02/16/2024 [facility] Test Date: 2024-02-15 Pat Name: BI SUE Department: Room: 305 Gender: Male Calibration Laboratory Technician: BLANCA : 1940 Requested By: YURY NAYLOR Order Number: [id number] Reading MD: CARLOS ALBERTO REYNOLDS MD Measurements Intervals [place] Rate: 110 P: 77 [place]: 138 QRS: -19 QRSD: 120 T: 84 [...] ORDERABLES Final Res ult [facility] * (ABNORMAL) POCT BLOOD GAS, CG8 I-STAT (02/15/2024 15:20 EST) pH, Venous, i-STAT 7.24(L) 7.31 - 7.41 02/15/2024 15:24 [facility] pCO2, Venous, i-STAT 65(H) 41 - 51 mmHg 02/15/2024 15:24 [facility] pO2, Venous, i-STAT 30 30 - 50 mmHg 02/15/2024 15:24 [facility] TCO2, Venous, i-STAT 29(H) 22 - 28 mmol/L 02/15/2024 15:24 [facility] O2 Saturation, Venous, i-STAT 44(L) 60 - 85 % 02/15/2024 15:24 [facility] Hematocrit, Venous, i-STAT 48 40 - 50 % 02/15/2024 15:24 [facility] Base Excess(+) / Deficit(-), Venous, i-STAT 0 -2 - 3 mmol/L 02/15/2024 15:24 [facility] Blood VENOUS BLOOD / Unknown 02/15/2024 15:20 EST 02/15/2024 15:24 EST [facility] - 02/15/2024 15:24 EST Test Performed by Respiratory Krystian Anne MD POINT OF CARE TEST ORDERABLES Final Result [facility] [address] [place] [address] * (ABNORMAL) NT PRO BNP (02/15/2024 15:19 EST) NT-pro BNP 7,520(H) <326 pg/mL 02/15/2024 16:51 [facility] Comment: In the acute setting NT-proBNP values <300 pg/mL have a 98% NPV for excluding acute heart failure. In outpatient populations, NT-proBNP values <125 have a 99% NPV for excluding heart failure. Blood VENOUS BLOOD / Unknown Venipuncture / Unknown 02/15/2024 15:19 EST 02/15/2024 15:24 EST us Dominique Goldstein MD CHEMISTRY & BLOOD GAS ORDERABLES Final Result [facility] [address] [place] [address] * (ABNORMAL) COMPREHENSIVE METABOLIC PANEL (CMP) (02/15/2024 15:19 EST) Sodium 136 136 - 145 mmol/L 02/15/2024 16:40 [facility] Potassium 5.3(H) 3.5 - 5.0 mmol/L 02/15/2024 16:40 [facility] Comment:Slight hemolysis carson ntified, interpret with caution as hemolysis will elevate potassium result. Chloride 102 96 - 110 mmol/L 02/15/2024 16:40 [facility] CO2 Total 22 22 - 32 mmol/L 02/15/2024 16:40 [facility] Glucose 156(H) 70 - 99 mg/dl 02/15/2024 16:40 [facility] BUN 65(H) 10 - 26 mg/dL 02/15/2024 16:40 [facility] Comment: Slight hemolysis identified, interpret with caution as results may be affected due to hemolysis. Creatinine 2.50(H) 0.66 - 1.25 mg/dL 02/15/2024 16:40 [facility] eGFR 25(L) >60 mL/min/1.7 3m2 02/15/2024 16:40 [facility] Total Protein 5.5(L) 6.3 - 8.2 g/dL 02/15/2024 16:40 [facility] Comment:Slight hemolysis carson ntified, interpret with caution as results may be affected due to hemolysis. Albumin 3.1(L) 3.4 - 4.9 g/dL 02/15/2024 16:40 [facility] Comment:Slight hemolysis carson ntified, interpret with caution as results may be affected due to hemolysis. Alkaline Phosphatase 109 38 - 126 U/L 02/15/2024 16:40 [facility] Comment:Slight hemolysis carson ntified, hemolysis will decrease ALKP result. Interpret with caution as results may be affected due to hemolysis. AST 49(H) 15 - 46 U/L 02/15/2024 16:40 [facility] LABORATORY SERVICES Comment:Slight hemolysis carson ntified, interpret with caution as results may be affected due to hemolysis. ALT 68(H) <50 U/L 02/15/2024 16:40 [facility] Bilirubin, Total 0.7 <1.4 mg/dL 02/15/20 16:40 [facility] Calcium 8.1(L) 8.5 - 10.5 mg/dL 02/15/2024 16:40 [facility] Albumin/Globulin Ratio 1.3 1.0 - 2.5 02/15/2024 16:40 [facility] Anion Gap 12 5 - 14 mmol/L 02/15/2024 16:40 [facility] Blood VENOUS BLOOD / Unknown Venipuncture / Unknown 02/15/2024 15:19 EST 02/15/2024 15:24 EST Dominique Goldstein MD CHEMISTRY & BLOOD GAS ORDERABLES Final Result Performing Organization Address City/State/[facility] Co de Phone Number [facility] [address] [place] [address] * (ABNORMAL) COMPLETE BLOOD COUNT AND DIFFERENTIAL (02/15/2024 15:19 EST) WBC 21.84(H) 4.00 - 10.40 K/cmm 02/15/2024 16:30 [facility] RBC 4.54 4.36 - 5.78 M/cmm 02/15/2024 16:30 [facility] Hemoglobin 14.5 13.8 - 17.3 g/dL 02/15/2024 16:30 [facility] HCT 44.8 39.5 - 50.2 % 02/15/2024 16:30 [facility] MCV 99(H) 81 - 95 fL 02/15/2024 16:30 [facility] MCH 31.9 27.6 - 33.0 pg 02/15/2024 16:30 [facility] MCHC 32.4(L) 32.8 - 36.4 g/dL 02/15/2024 16:30 [facility] RDW-CV 14.9(H) <14.2 % 02/15/2024 16:30 [facility] RDW-SD 54.5(H) <46.0 fl 02/15/2024 16:30 [facility] PLT 151 141 - 377 K/cmm 02/15/2024 16:30 [facility] MPV 11.6 9.5 - 12.7 fL 02/15/2024 16:30 [facility] % Neutrophils 89.3 Not Indicated % 02/15/2024 16:30 [facility] % Lymphocytes 3.1 Not Indicated % 02/15/2024 16:30 [facility] % Monocytes 6.6 Not Indicated % 02/15/2024 16:30 [facility] % Eosinophils 0.0 Not Indicated % 02/15/2024 16:30 [facility] % Basophils 0.2 Not Indicated % 02/15/2024 16:30 [facility] % Immature Grans 0.8 <0.9 % 02/15/2024 16:30 [facility] Absolute Neutrophils 19.49(H) 2.20 - 8.85 K/cmm 02/15/2024 16:30 [facility] Absolute Lymphocytes 0.67(L) 1.09 - 3.30 K/cmm 02/15/2024 16:30 [facility] Absolute Monocytes 1.45(H) 0.10 - 0.80 K/cmm 02/15/2024 16:30 [facility] Absolute Eosinophils 0.00(L) 0.03 - 0.61 K/cmm 02/15/2024 16:30 [facility] ABS Basophils 0.05 0.01 - 0.11 K/cmm 02/15/2024 16:30 [facility] Absolute Immature Grans 0.18(H) 0.00 - 0.06 K/cmm 02/15/2024 16:30 [facility] Type of Differential: Auto 02/15/2024 16:30 [facility] Blood VENOUS BLOOD / Unknown Venipuncture / Unknown 02/15/2024 15:19 EST 02/15/2024 15:25 EST us Dominique Goldstein MD PACKAGES & DNA PROBE ORDERABLES Final Result Performing Organization Address [facility]/ZIP Co de Phone Number [facility] [address] [place] [address] * HOLD LAVENDER TOP (02/15/2024 15:19 EST) Hold Hold 02/15/2024 16:31 [facility] Blood VENOUS BLOOD / Unknown Venipuncture / Unknown 02/15/2024 15:19 EST 02/15/2024 15:25 EST us Krystian Anne MD LAB INFO SERVICE AND SUPPORT & PHONE RESULT Final Result Performing Organization Address [facility] Co de Phone Number [facility] [address] [place] [address] * HOLD GREEN TOP (02/15/2024 15:19 EST) Hold Hold 02/15/2024 16:31 [facility] Blood VENOUS BLOOD / Unknown Venipuncture / Unknown 02/15/2024 15:19 EST 02/15/2024 15:25 EST us Krystian Anne MD LAB INFO SERVICE AND SUPPORT & PHONE RESULT Final Result Performing Organization Address City/[facility]/ZIP Co de Phone Number [facility] [address] [place] [address] * (ABNORMAL) CK (02/15/2024 15:19 EST) CK 272(H) <=250 U/L 02/15/2024 15:50 EST [facility] Blood VENOUS BLOOD / Unknown Venipuncture / Unknown 02/15/2024 15:19 EST 02/15/2024 15:24 EST Krystian Anne MD CHEMISTRY & BLOOD GAS ORDERAB LES Final Result [facility] [address] [place] [address] * SARS COV2, FLU A/B, RSV DETECT BY PCR (02/15/2024 15:13 EST) FLU A RNA Result (FLARES) Negative Negative 02/15/2024 16:22 [facility] FLU B RNA Result (FLBRES) Negative Negative 02/15/2024 16:22 [facility] RSV RNA Result (RSVRES) Negative Negative 02/15/2024 16:22 [facility] COVID-19 rt-PCR Result Negative Negative 02/15/2024 16:22 [facility] Comment: The 2019 novel coronavirus (SARS-CoV-2) target nucleic acids are not detected. Performed on the [employer] Instrument Swab NASOPHARYNGEAL STRUCTURE / Unknown Swab / Unknown 02/15/2024 15:13 EST 02/15/2024 15:18 EST Krystian Anne MD MICROBIOLOGY - GENERAL ORDERA BLES Final Result Performing Organization Address City/[facility]/ZIP Co de Phone Number [facility] [address] [place] [address] documented in this encounter Visit Diagnoses Diagnosis Closed right hip fracture, initial encounter ([facility] Primary Closed right hip fracture, initial encounter ([facility]) [S72.001A] Acute on chronic respiratory failure with hypoxia and hypercapnia ([facility]) [J96.21, J96.22] Pneumonia due to infectious organism, unspecified laterality, unspecified part of lung [J18.9] Heart failure, unspecified HF chronicity, unspecified heart failure type ([facility]) Pulmonary HTN ([facility]) Other chronic pulmonary heart diseases Pulmonary emphysema, unspecified emphysema type ([facility]) Acute on chronic respiratory failure with hypoxia and hypercapnia ([facility]) Pneumonia due to infectious organism Heart failure ([facility]) Heart failure, unspecified Pulmonary HTN ([facility]) Other chronic pulmonary heart diseases Pulmonary emphysema ([facility]) Other emphysema documented in this encounter Admitting Diagnoses Diagnosis Closed right hip fracture, initial encounter ([facility]) documented in this encounter Administered Medications Inactive Administered Medications - up to 3 most recent administrations Medication Order MAR Action Action Date Dose Rate Site acetaminophen (TYLENOL) tablet 975 mg 975 mg (rounded from 1,000 mg), oral, EVERY 8 HOURS, First dose on Mon02/16/24 at 0000, Until Discontinued, Routine Given 02/16/2024 8:17 EST 975 mg Given 02/16/2024 1:29 EST 975 mg amiodarone in dextrose 150 mg/100 mL (1.5 mg/mL) IV bolus 150 mg 150 mg, intravenous, Administer over 10 Minutes, NOW X1, 1 dose, On Mon02/16/24 at 1400, Routine Given 02/16/2024 13:53 EST 150 mg amiodarone in dextrose 360 mg/200 mL (1.8 mg/mL) infusion 1 mg/min (33.3333 mL/hr, rounded to 33.3 mL/hr), intravenous, CONTINUOUS, Starting on Mon02/16/24 at 1400, Until Mon02/16/24 at 1541, Routine New Bag 02/16/2024 14:05 EST 1 mg/min 33.3 mL/hr amiodarone in dextrose 360 mg/200 mL (1.8 mg/mL) infusion 0.5 mg/min (16.6667 mL/hr, rounded to 16.7 mL/hr), intravenous, CONTINUOUS, Starting on Mon02/16/24 at 2005, Until Mon02/16/24 at 1541, Routine budesonide-formoterol HFA (SYMBICORT) 80-4.5 mcg/actuation inhaler 2 Puff 2 Puff, inhalation, EVERY 12 HOURS, First dose on Vandana 02/15/24 at 2100, Until Discontinued, Routine Given 02/16/2024 8:00 EST 2 Puffs Given 02/15/2024 20:28 EST 2 Puffs calcium GLUconate in 0.9 % sodium chloride IVPB 2 g 2 g, intravenous, Administer over 120 Minutes, EVERY 6 HOURS, 2 doses, First dose on Mon02/16/24 at 0800, Last dose on Mon02/16/24 at 1200, Routine Given 11:09 EST 2 g Given 02/16/2024 8:24 EST 2 g cefTRIAXone (ROCEPHIN) 1,000 mg in sodium chloride (NS MBP) 50 mL IVPB 1,000 mg, intravenous, Administer over 30 Minutes, EVERY 24 HOURS, 5 doses, First dose on Vandana 02/15/24 at 1515, Last dose on Mon02/19/24 at 1515, Type of Therapy: Empiric, Suspected Indication (Select all that apply): Community acquired pneumonia, Routine Given 02/15/2024 16:04 EST 1,000 mg dilTIAZem (CARDIZEM) in D5W 125 mg/125 mL infusion 0-20 mg/hr (0-20 mL/hr), intravenous, CONTINUOUS, Starting on Mon02/15/24 at 2045, Until Mon02/16/24 at 1248, Routine New Bag 02/16/2024 8:35 EST 10 mg/hr 10 mL/hr Rate Change 02/15/2024 22:17 EST 10 mg/hr 10 mL/hr New Bag 02/15/2024 20:32 EST 5 mg/hr 5 mL/hr doxycycline (VIBRAMYCIN) capsule 100 mg 100 mg, oral, EVERY 12 HOURS, 10 doses, First dose on Vandana 02/15/24 at 1800, Last dose on Mon02/19/24 at 2000, Routine Given 02/16/2024 8:17 EST 100 mg Given 02/15/2024 20:10 EST 100 mg furosemide (LASIX) injection 100 mg 100 mg, intravenous, NOW X1, 1 dose, On Mon02/16/24 at 1015, Routine Given 02/16/2024 10:27 EST 100 mg furosemide (LASIX) injection 40 mg 40 mg, intravenous, NOW X1, 1 dose, On Vandana 24 at 1700, Routine Given 02/15/2024 17:03 EST 40 mg furosemide (LASIX) injection 60 mg 60 mg, intravenous, NOW X1, 1 dose, On Mon02/16/24 at 0815, Routine Given 02/16/2024 8:21 EST 60 mg HYDROmorphone (DILAUDID) tablet 2 mg 2 mg, oral, EVERY 4 HOURS PRN, Starting on Mon02/15/24 at 1915, Until Mon02/16/24 at 1541, Pain, Severe Pain 7-10, Routine influenza vaccine trivalent adjuvanted PF (65 yrs+) (FLUAD HIGH DOSE) IM injection-syringe 0.5 mL 0.5 mL, intramuscular, Once (Without Time Specified), 1 dose, Starting on Mon02/15/24 at 1537, Until Mon02/16/24 at 1541, Routine ipratropium-albuteroL (DUONEB) 0.5 mg-3 mg(2.5 mg base)/3 mL nebulizer solution 3 mL 3 mL, nebulization, EVERY 4 HOURS PRN, Starting on Mon02/15/24 at 1446, Until Mon02/15/24 at 1729, Wheezing, Routine Given 02/15/2024 17:15 EST 3 mL ipratropium-albuteroL (DUONEB) 0.5 mg-3 mg(2.5 mg base)/3 mL nebulizer solution 3 mL 3 mL, nebulization, 4 TIMES DAILY, First dose (after last modification) on Mon02/15/24 at 2100, Until Discontinued, Routine Given 02/16/2024 12:20 EST 3 mL Given 02/16/2024 7:59 EST 3 mL Given 02/15/2024 20:28 EST 3 mL metOLazone (ZAROXOLYN) tablet 5 mg 5 mg, oral, NOW X1, 1 dose, On Mon02/16/24 at 1015, Routine Given 02/16/2024 10:31 EST 5 mg pantoprazole (PROTONIX) tablet 40 mg 40 mg, oral, DAILY, First dose on Mon02/16/24 at 0900, Until Discontinued, Routine Given 02/16/2024 8:17 EST 40 mg predniSONE (DELTASONE) tablet 40 mg 40 mg, oral, DAILY, First dose on Vandana 02/15/24 at 1945, Until Discontinued, Routine Given 02/16/2024 8:17 EST 40 mg Given 02/15/2024 20:10 EST 40 mg documented in this encounter Historical Medications * This list may reflect changes made after this encounter. aspirin chewable 81 mg tablet Take 1 Tablet by mouth daily. pantoprazole (PROTONIX) 40 mg tablet Take 1 Tablet by mouth daily before breakfast. metoprolol SUCCinate (TOPROL-XL) 25 mg tablet Take 1 Tablet by mouth daily. amLODIPine (NORVASC) 10 mg tablet Take 1 Tablet by mouth daily. 02/29/2024 added in this encounter Active and Recently Administered Medications Times are shown in EST. Scheduled Medication Order 02/14/2024 02/15/2024 02/16/2024 acetaminophen (TYLENOL) tablet 975 mg 975 mg (rounded from 1,000 mg), oral, EVERY 8 HOURS, First dose on Mon02/16/24 at 0000, Until Discontinued, Routine 012 (Given - Provid er: Kiet Pratt RN - Comment: Per )0817 (Given - Provider: Ramiro Mims RN) amiodarone in dextrose 150 mg/100 mL (1.5 mg/mL) IV bolus 150 mg (COMPLETED)(Linked Group 1) 150 mg, intravenous, Administer over 10 Minutes, NOW X1, 1 dose, On Mon02/16/24 at 1400, Routine 1353 (Given - Provid er: Leticia Antony RN) budesonide-formoterol HFA (SYMBICORT) 80-4.5 mcg/actuation inhaler 2 Puff 2 Puff, inhalation, EVERY 12 HOURS, First dose on Vandana 02/15/24 at 2100, Until Discontinued, Routine 2027 (Given - Provider: Marlene Maurer RT) 0800 (Given - Provider: RT Danielle) calcium GLUconate in 0.9 % sodium chloride IVPB 2 g (COMPLETED) 2 g, intravenous, Administer over 120 Minutes, EVERY 6 HOURS, 2 doses, First dose on Mon02/16/24 at 0800, Last dose on Mon02/16/24 at 1200, Routine 0824 (Given - Provid er: Ramiro Jennyfer Thai, RN)1109 (Given - Provider: Ramiro Mims RN) cefTRIAXone (ROCEPHIN) 1,000 mg in sodium chloride (NS MBP) 50 mL IVPB 1,000 mg, intravenous, Administer over 30 Minutes, EVERY 24 HOURS, 5 doses, First dose on Mon02/15/24 at 1515, Last dose on Mon02/19/24 at 1515, Type of Therapy: Empiric, Suspected Indication (Select all that apply): Community acquired pneumonia, Routine 1604 (Given - Provider: Ramiro Mims RN) doxycycline (VIBRAMYCIN) capsule 100 mg 100 mg, oral, EVERY 12 HOURS, 10 doses, First dose on Mon02/15/24 at 1800, Last dose on Mon02/19/24 at 2000, Routine 2010 (Given - Provider: Kiet Pratt RN - Comment: per order) 0629 (Not Given - Provider: Kiet Pratt RN - Reason: Other - Comment: to be given at 8 am)0817 (Given - Provider: Ramiro Mims RN) furosemide (LASIX) injection 100 mg (COMPLETED) 100 mg, intravenous, NOW X1, 1 dose, On Mon02/16/24 at 1015, Routine 1027 (Given - Provid er: Ramiro Mims RN) furosemide (LASIX) injection 40 mg (COMPLETED) 40 mg, intravenous, NOW X1, 1 dose, On Mon02/15/24 at 1700, Routine 1703 (Given - Provider: Ramiro Mims RN) furosemide (LASIX) injection 60 mg (COMPLETED) 60 mg, intravenous, NOW X1, 1 dose, On Mon02/16/24 at 0815, Routine 0821 (Given - Provid er: Ramiro Mims RN) influenza vaccine trivalent adjuvanted PF (65 yrs+) (FLUAD HIGH DOSE) IM injection-syringe 0.5 mL 0.5 mL, intramuscular, Once (Without Time Specified), 1 dose, Starting on Mon02/15/24 at 1537, Until Mon02/16/24 at 1541, Routine ipratropium-albuteroL (DUONEB) 0.5 mg-3 mg(2.5 mg base)/3 mL nebulizer solution 3 mL 3 mL, nebulization, 4 TIMES DAILY, First dose (after last modification) on Mon02/15/24 at 2100, Until Discontinued, Routine 2027 (Given - Provider: Marlene Maurer RT) 0759 (Given - Provider: Toña Silver, RT)1220 (Given - Provider: Toña Silver RT) metOLazone (ZAROXOLYN) tablet 5 mg (COMPLETED) 5 mg, oral, NOW X1, 1 dose, On Mon02/16/24 at 1015, Routine 1031 (Given - Provid er: Ramiro Mims RN) pantoprazole (PROTONIX) tablet 40 mg 40 mg, oral, DAILY, First dose on Mon02/16/24 at 0900, Until Discontinued, Routine 0817 (Given - Provid er: Ramiro Mims RN) predniSONE (DELTASONE) tablet 40 mg 40 mg, oral, DAILY, First dose on Mon02/15/24 at 1945, Until Discontinued, Routine 2009 (Given - Provider: Kiet Pratt RN) 0817 (Given - Provider: Ramiro Mims RN) Continuous Medication Order 02/14/2024 02/15/2024 02/16/2024 amiodarone in dextrose 360 mg/200 mL (1.8 mg/mL) infusion(Linked Group 1) 1 mg/min (33.3333 mL/hr, rounded to 33.3 mL/hr), intravenous, CONTINUOUS, Starting on Mon02/16/24 at 1400, Until Mon02/16/24 at 1541, Routine 1405 (New Bag - Provider: Leticia Antony RN)1541 (Due: Completed) amiodarone in dextrose 360 mg/200 mL (1.8 mg/mL) infusion(Linked Group 1) 0.5 mg/min (16.6667 mL/hr, rounded to 16.7 mL/hr), intravenous, CONTINUOUS, Starting on Mon02/16/24 at 2005, Until Mon02/16/24 at 1541, Routine dilTIAZem (CARDIZEM) in D5W 125 mg/125 mL infusion (CANCELED) 0-20 mg/hr (0-20 mL/hr), intravenous, CONTINUOUS, Starting on Mon02/15/24 at 2045, Until Mon02/16/24 at 1248, Routine 2031 (New Bag - Provider: Kiet Pratt RN)2217 (Rate Change - Provider: Kiet Pratt, ASHVIN) 0835 (New Bag - Provider: Ramiro Mims, RN)1254 (Completed - Provider: Ramiro Mims, RN) PRN Medication Order 02/14/2024 02/15/2024 02/16/2024 HYDROmorphone (DILAUDID) tablet 2 mg 2 mg, oral, EVERY 4 HOURS PRN, Starting on Mon02/15/24 at 1915, Until Mon02/16/24 at 1541, Pain, Severe Pain 7-10, Routine ipratropium-albuteroL (DUONEB) 0.5 mg-3 mg(2.5 mg base)/3 mL nebulizer solution 3 mL (CANCELED) 3 mL, nebulization, EVERY 4 HOURS PRN, Starting on Mon02/15/24 at 1446, Until Mon02/15/24 at 1729, Wheezing, Routine 1715 (Given - Provider: Gloria Joshi, RT) lidocaine (PF) 10 mg/mL (1 %) injection 2 mg 2 mg, intradermal, PRN, 4 doses, Starting on Mon02/15/24 at 1127, Until Mon02/16/24 at 1541, peripheral intravenous catheter placement, Routine Linked Groups Order Group 1: amiodarone in dextrose 150 mg/100 mL (1.5 mg/mL) IV bolus 150 mg (COMPLETED)Jump to med 150 mg, intravenous, Administer over 10 Minutes, NOW X1, 1 dose, On Mon02/16/24 at 1400, Routine Followed by amiodarone in dextrose 360 mg/200 mL (1.8 mg/mL) infusionJump to med 1 mg/min (33.3333 mL/hr, rounded to 33.3 mL/hr), intravenous, CONTINUOUS, Starting on Mon02/16/24 at 1400, Until Mon02/16/24 at 1541, Routine Followed by amiodarone in dextrose 360 mg/200 mL (1.8 mg/mL) infusionJump to med 0.5 mg/min (16.6667 mL/hr, rounded to 16.7 mL/hr), intravenous, CONTINUOUS, Starting on Mon02/16/24 at 2005, Until Mon02/16/24 at 1541, Routine documented in this encounter Orders Medications Ordered That Brendon ht Not Have Been Administered Count Last Ordered Date First Ordered Date amiodarone in dextrose 360 m g/200 mL (1.8 mg/mL) infusion 1 02/16/2024 furosemide (LASIX) injection 60 mg 1 2023 HYDROmorphone (DILAUDID) tablet 2 mg 1 10/2023 influenza vaccine trivalent adjuvanted PF (65 yrs+) (FLUAD HIGH DOSE) IM injection-syringe 0.5 mL 1 02/15/2024 lidocaine (PF) 10 mg/mL (1 % ) injection 2 mg 1 02/15/2024 Wound Ostomy Count Last Ordered Date First Orde red Date WOUND EVALUATION AND TREAT 1 02/16/2024 Admission Count Last Ordered Date First Orde red Date ADMIT TO INPATIENT 1 02/15/2024 Transfer Count Last Ordered Date First Orde red Date TRANSFER PATIENT 1 02/15/2024 Discharge Count Last Ordered Date First Orde red Date DISCHARGE PATIENT 1 02/16/2024 Consult to Pulmonary Count Last Ordered Date Fi rst Ordered Date CONSULT PULMONOLOGY 1 02/15/2024 Consult to Orthopedics Count Last Ordered Date First Ordered Date CONSULT ORTHOPAEDIC SURGERY 1 02/15/2024 documented in this encounter Additional Health Concerns Infection Onset Date Last Indicated Resolved Time R/O COVID-19 02/15/2024 02/15/2024 02/15/2024 16:2 2 EST Respiratory rule-out Comment:Negative testing 02/16/2024 02/16/2024 02/17/2024 7:26 EST documented as of this encounter Care Teams Vibratory Pile Driver Relationship Specialty Start Date End Date Suzie Villagomez MD [address] [place] [id number] PCP - General Family Medicine - Primary Care 02/15/24 documented as of this encounter
--- OUTSIDE RECORDS SUMMARY | 2024-03-27 10:44 | XMS_ITS | Encounter Summary ---
Author Organization [facility] Address [address] [place] [address] Care Team Providers Care Bariatric Nurse Name Role Phone Suzie Quan MD Primary Care Provider [phone] Reason for Referral * (Routine/Next Available) - Receiving Office to Obtain Authorization Specialty Diagnoses / Procedures Referred By Contac t Referred To Contact Procedures XR OUTSIDE IMAGES CHEST Imaging, External Referral ID Status Reason Start Date Expiration Date Visits Requested Visits Authorized [id number] Receiving Office to Obtain Authorization 02/15/2024 1 1 Reason for Visit * (Routine/Next Available) - Receiving Office to Obtain Authorization Specialty Diagnoses / Procedures Referred By Contac t Referred To Contact Procedures XR OUTSIDE IMAGES CHEST Imaging, External Referral ID Status Reason Start Date Expiration Date Visits Requested Visits Authorized [id number] Receiving Office to Obtain Authorization 02/15/2024 1 1 Encounter Details Date Type Department Care Team (Latest Contact Info) Description 02/15/2024 10:58 EST - 02/15/2024 11:[address] [facility] Secondary Reads [place] Discharge Disposition: Home or Self Care Social History Tobacco Use Types Packs/Day Years Used Date Smoking Tobacco: Former Cigarettes Alcohol Use Standard Drinks/Week Comments Never 0 (1 standard drink = 0.6 oz pur e alcohol) [facility] Utilities Answer Date Recorded In the past 12 months has e electric, gas, oil, or water company threatened to shut off services in your home? No 02/16/2024 Hunger Vital Sign Answer Date Recorded Within the past 12 months, y ou worried that your food would run out before you got the money to buy more. Never true 11/08/20 24 Within the past 12 months, t [...] were you homeless or living in a long term (including now)? No 02/16/2024 Interpersonal Safety Answer [...] Maxwell Ro, RN * Do you have serious difficulty [...] Info) Description 04/05/2024 10:15 EST Appointment [facility] [address] [place] [address] 04/05/2024 10:30 EST Post-op Visit [facility] Orthopedic Trauma - [place] [id number] [place] [address] Ko Marquis PA-C [address] [place] [id number] documented as of this encounter Procedures Procedure Name Priority Date/Time Associated Diagnosis Comments XR OUTSIDE IMAGES CHEST Routine 02/15/2024 10:59 EST documented in this encounter Results * XR OUTSIDE IMAGES CHEST (02/15/2024 10:59 EST) Narrative 02/15/2024 10:59 EST This is a non-reportable exam. us External Imaging IMG OTHER IMAGING ORDERABLES Fi nal Result documented in this encounter Visit Diagnoses Not on filedocumented in this encounter Care Teams Bariatric Nurse Relationship Specialty Start Date End Date Suzie Quan MD [address] [place] [address] PCP - General Family Medicine - Primary Care 02/15/24 documented as of this encounter
--- OUTSIDE RECORDS SUMMARY | 2024-03-27 10:44 | XMS_ITS | Encounter Summary ---
Author Organization [facility] Address [address] [place] [address] Care Team Providers Care Manager Of Tires Sales Name Role Phone Suzie Quan MD Primary Care Provider [phone] Reason for Referral * (Routine/Next Available) - Receiving Office to Obtain Authorization Specialty Diagnoses / Procedures Referred By Contac t Referred To Contact Procedures XR OUTSIDE IMAGES RIGHT LOWER EXTREMITY Imaging, External Referral ID Status Reason Start Date Expiration Date Visits Requested Visits Authorized [id number] Receiving Office to Obtain Authorization 02/15/2024 1 1 Reason for Visit * (Routine/Next Available) - Receiving Office to Obtain Authorization Specialty Diagnoses / Procedures Referred By Contac t Referred To Contact Procedures XR OUTSIDE IMAGES RIGHT LOWER EXTREMITY Imaging, External Referral ID Status Reason Start Date Expiration Date Visits Requested Visits Authorized [id number] Receiving Office to Obtain Authorization 02/15/2024 1 1 Encounter Details Date Type Department Care Team (Latest Contact Info) Description 02/15/2024 10:53 EST - 02/15/2024 10:55 EST Hospital Encounter [facility] Secondary Reads [place] Discharge Disposition: Home or Self Care Social History Tobacco Use Types Packs/Day Years Used Date Smoking Tobacco: Former Cigarettes Alcohol Use Standard Drinks/Week Comments Never 0 (1 standard drink = 0.6 oz pur e alcohol) [facility] Utilities Answer Date Recorded In the [...] any time in the past 12 m [facility], were you homeless or living in a intermediate (including now)? No 02/16/2024 Interpersonal Safety Answer [...] of Assessment Author No 02/15/2024 15:21 Maxwell Ro, ASHVIN * Are you blind or do you [...] Info) Description 04/05/2024 10:15 EST Appointment [facility] Xray [address] [facility] [place], [place] [id number] 04/05/2024 10:30 EST Post-op Visit [facility] Orthopedic Trauma - [place] [address] [place] [address] Ko Marquis PA-C [address] [place] [address] documented as of this encounter Procedures Procedure Name Priority Date/Time Associated Diagnosis Comments XR OUTSIDE IMAGES RIGHT LOWER EXTREMITY Routine 02/15/2024 10:54 EST documented in this encounter Results * XR OUTSIDE IMAGES RIGHT LOWER EXTREMITY (02/15/2024 10:54 EST) Narrative 02/15/2024 10:54 EST This is a non-reportable exam. us External Imaging IMG OTHER IMAGING ORDERABLES Fi nal Result documented in this encounter Visit Diagnoses Not on filedocumented in this encounter Care Teams Manager Of Tires Sales Relationship Specialty Start Date End Date Suzie Quan MD [address] [place] [address] PCP - General Family Medicine - Primary Care 02/15/24 documented as of this encounter
--- OUTSIDE RECORDS SUMMARY | 2024-03-27 10:44 | XMS_ITS | Encounter Summary ---
Author Organization [facility] Address [address] [place] [address] Care Team Providers Care Supervisor Plate Pasting Name Role Phone Suzie Quan MD Primary Care Provider [phone] Encounter Details Date Type Department Care Team (Late st Contact Info) Description 02/15/2024 Prep for Procedure [facility] Orthopedics & Sport Medicine [address] [place] [address] Buzz Freed MD [address] [facility] [address] [place] [address] Closed right hip fracture, initial encounter ([facility]) (Primary Dx) Social History Tobacco Use Types Packs/Day Years Used Date Smoking Tobacco: Former Cigarettes Alcohol Use Standard Drinks/Week Comments Never 0 (1 standard drink = 0.6 oz pur e alcohol) [facility] Utilities Answer Date Recorded In the past 12 months has e [employer], gas, oil, or water [employer] threatened to shut off services in your [...] were you homeless or living in a residential (including now)? No 02/16/2024 Interpersonal Safety Answer [...] Answer Entry Date Author No 02/15/2024 15:21 EST Maxwell Cruz RN documented in this encounter Plan of Treatment Upcoming Encounters Date Type Department Care Team (Late st Contact Info) Description 04/05/2024 10:15 EST Appointment [facility] Xray [address] [place] [address] 04/05/2024 10:30 EST Post-op Visit [facility] Orthopedic Trauma - [address] [address] Ko Marquis PA-C [address] [place] [phone] documented as of this encounter Visit Diagnoses Diagnosis Closed right hip fracture, initial encounter ([facility])- Primary documented in this encounter Additional Health Concerns Infection Onset Date Last Indicated Resolved Time R/O COVID-19 02/15/2024 02/15/2024 02/15/2024 16:2 2 EST documented as of this encounter Care Teams Supervisor Plate Pasting Relationship Specialty Start Date End Date Suzie Quan MD [address] [place] [address] PCP - General Family Medicine - Primary Care 02/15/24 documented as of this encounter
--- OUTSIDE RECORDS SUMMARY | 2024-03-27 10:44 | XMS_ITS | Encounter Summary ---
Author Organization [facility] Address [address] [place] [address] Care Team Providers Care Innovation Manager Name Role Phone Suzie Quan MD Primary Care Provider [phone] Reason for Referral * (Routine/Next Available) - Receiving Office to Obtain Authorization Specialty Diagnoses / Procedures Referred By Contac t Referred To Contact Procedures XR OUTSIDE IMAGES PELVIS Imaging, External Referral ID Status Reason Start Date Expiration Date Visits Requested Visits Authorized [id number] Receiving Office to Obtain Authorization 02/15/2024 1 1 Reason for Visit * (Routine/Next Available) - Receiving Office to Obtain Authorization Specialty Diagnoses / Procedures Referred By Contac t Referred To Contact Procedures XR OUTSIDE IMAGES PELVIS Imaging, External Referral ID Status Reason Start Date Expiration Date Visits Requested Visits Authorized [id number] Receiving Office to Obtain Authorization 02/15/2024 1 1 Encounter Details Date Type Department Care Team (Latest Contact Info) Description 02/15/2024 10:56 EST - 02/15/2024 10:57 EST Hospital Encounter [facility] Secondary [place] Discharge Disposition: Home or Self Care Social History Tobacco Use Types Packs/Day Years Used Date Smoking Tobacco: Former Cigarettes Alcohol Use Standard Drinks/Week Comments Never 0 (1 standard drink = 0.6 oz pur e alcohol) [facility] Utilities Answer Date Recorded In the past [...] a senior care (including now)? No 02/16/2024 Interpersonal Safety Answer [...] Info) Description 04/05/2024 10:15 EST Appointment [facility] Xray [address] [place] [address] 04/05/2024 10:30 EST Post-op Visit [facility] Orthopedic Trauma - [place] [address] [place] [address] Ko Marquis PA-C [address] [place] [address] documented as of this encounter Procedures Procedure Name Priority Date/Time Associated Diagnosis Comments XR OUTSIDE IMAGES PELVIS Routine 02/15/2024 10:56 EST documented in this encounter Results * XR OUTSIDE IMAGES PELVIS (02/15/2024 10:56 EST) Narrative 02/15/2024 10:56 EST This is a non-reportable exam. us External Imaging IMG OTHER IMAGING ORDERABLES Fi nal Result documented in this encounter Visit Diagnoses Not on filedocumented in this encounter Care Teams Innovation Manager Relationship Specialty Start Date End Date Suzie Quan MD [address] [place] [address] PCP - General Family Medicine - Primary Care 02/15/24 documented as of this encounter
[2024-03-27] MEDS: Albuterol/Ipratropium 3 ML UPD VIAL UPD (11:01)
[2024-03-27] MEDS: methylPREDNISolone SUCC 125 MG VIAL IVP (11:02)
[2024-03-27 11:05] LABS: pH (Venous) 7.39 (7.31-7.41); pO2 (Venous) 26 mmHg
[2024-03-27 11:06] LABS: Abs Immature Grans 0.05 10^3/uL (0.0-0.06); Absolute Basophil Count 0.07 10^3/uL (0.0-0.2); Absolute Eosinophil Count 0.19 10^3/uL (0.0-0.7); Absolute Lymphocyte Count 1.04 10^3/uL (1.2-3.4); Absolute Monocyte Count 0.77 10^3/uL (0.1-0.8); Absolute Neutrophil Count 9.32 10^3/uL (1.2-6.7); BE (Venous) 24 mmol/L (-2-3); Basophils % 0.6 %; Eosinophils % 1.7 %; HCO3 (Venous) 49 mmol/L (23-28); HCT 34.7 % (40.0-50.0); HGB 10.6 g/dL (13.5-17.5); Immature Grans % 0.4 %; Lymphocytes % 9.1 %; MCH 32.3 pg (27.0-33.0); MCHC 30.5 % (32.0-36.0); MCV 106 fL (80-95); MPV 9.9 fL (8.0-11.0); Monocytes % 6.7 %; Neutrophils % 81.5 %; O2 Sat (Venous) 44 %; Platelet Count 284 10^3/uL (130-400); RBC 3.28 10^6/uL (4.36-5.78); RDW 13.5 % (11.8-14.1); RDW-SD 53.1 fL; TCO2 (Venous) 46 mmol/L (24-29); WBC 11.44 10^3/uL (4.4-10.8)
[2024-03-27 11:08] LABS: pCO2 (Venous) 82 mmHg (41-51)
[2024-03-27 11:20] LABS: INR 1.1 (0.9-1.1); PTT Activated 32.4 sec (23.6-32.8); Prothrombin Time 10.9 sec (9.1-11.1)
[2024-03-27 11:26] LABS: ALT 8 U/L (16-63); AST 14 U/L (15-37); Albumin 2.5 g/dL (3.4-5.0); Alkaline Phosphatase 122 U/L (46-116); BUN 28 mg/dL (7-18); Bilirubin, Total 0.53 mg/dL (0.2-1.0); CREATININE 1.2 mg/dL (0.70-1.30); Calcium 9.2 mg/dL (8.5-10.1); Chloride 100 mmol/L (98-107); Estimated GFR 59.26 (mL/min/1.73m2); Glucose 114 mg/dL (74-106); Potassium 4.3 mmol/L (3.5-5.1); Sodium 143 mmol/L (136-145); Total Protein 7.1 g/dL (6.4-8.2)
[2024-03-27 11:27] LABS: Anion Gap -2.00001 mmol/L (3-11); CO2 > 45.0 mmol/L (21.0-32.0)
[2024-03-27 11:29] LABS: Troponin I 38 ng/L (<or=76)
[2024-03-27 11:44] LABS: Procalcitonin < 0.10 ng/mL
--- NOTE | 2024-03-27 11:49 | DI.RAD_ITS ---
Exam(s) XR CHEST 2V PA LATERAL EXAM: XR CHEST 2V PA LATERAL CLINICAL HISTORY: cough, dyspnea TECHNIQUE: 2D digital imaging was performed of the chest. Two images were obtained. PA and lateral views were obtained. COMPARISON: CR,XR XR CHEST 2V PA LATERAL from 02/15/2024 FINDINGS: MEDIASTINUM: Normal. HEART: Normal. PULMONARY VASCULATURE: Normal. LUNGS: There is a new infiltrate in the left lower lobe. The lungs are hyperinflated with flattened diaphragms consistent with underlying COPD. PLEURAL SPACE: There is blunting of the costophrenic angles which may represent small pleural effusio ns. No pneumothorax is identified. BONE:Within normal limits for the patient's age. OTHER FINDINGS:Normal. IMPRESSION: Left lower lobe infiltrate suspicious for pneumonia. DATA REPOSITORY: RADIATION DOSE DELIVERED:
[2024-03-27 11:54] LABS: NT-proBNP 2488 pg/mL (<300)
[2024-03-27 12:15] LABS: COVID-19 PCR Negative (Negative); Influenza A PCR Negative (Negative); Influenza B PCR Negative (Negative); RSV PCR Negative (Negative)
[2024-03-27 12:17] LABS: Source Nasopharynx
[2024-03-27] MEDS: levoFLOXacin 500 MG, levoFLOXacin 250 MG 750 MG PO (12:37)
[2024-03-27 12:49] LABS: Troponin I 35 ng/L (<or=76)
== END 2024-03-27 13:38 | disposition skilled nursing facility (03) ==
PROVIDERS: Emergency Provider Emergency Medicine; PCP Family Medicine
DX: J18.9 Pneumonia, unspecified organism (principal); R94.31 Abnormal electrocardiogram [ECG] [EKG]; J44.9 Chronic obstructive pulmonary disease, unspecified; Z99.81 Dependence on supplemental oxygen; Z79.82 Long term (current) use of aspirin; Z79.01 Long term (current) use of anticoagulants; Z87.891 Personal history of nicotine dependence
CPT/HCPCS: 36415; 80053; 82805; 84145; 87637; 93005; 94640; 96374; 99285; 71046; 83735; 83880; 84484; 85025; 85610; 85730; 93010; 99284; J2919; J7620

== ENCOUNTER 2024-04-01 17:02 | Inpatient (IN) | payer MEDICARE, SELFPAY ==
[2024-04-01] VITALS (92 sets, daily range): BP systolic 50–152; BP diastolic 18–134; PULSE 0–160; RESP 0–33; TEMP 35.5–36.9; O2SAT 71–100
--- NOTE | 2024-04-01 17:00 | RT.EKG_ITS ---
APPROVED REPORT Exam: Resting ECG Reason for Exam: hypotension Patient Location: E HR:79 bpm ECG Measurements Heart Rate 79 AXIS VT 192 P 71 QRSd 131 QRS -58 QT 400 T 60 QTc 460 Conclusion Sinus rhythm...normal P axis, V-rate 60- 99 RBBB and LAFB...QRSd >120mS, axis(-40,240) Abnormal Electrocardiogram
--- NOTE | 2024-04-01 17:00 | DI.RAD_ITS ---
Exam(s) XR PORTABLE CHEST AP EXAM: XR PORTABLE CHEST AP CLINICAL HISTORY: sepsis TECHNIQUE: 2D digital imaging was performed of the chest. One image was obtained. An AP view was ob tained. COMPARISON: CR,XR XR CHEST 2V PA LATERAL from 02/15/2024 CR XR CHEST 2V PA LATERAL from 03/27/2024 FINDINGS: MEDIASTINUM: Normal. HEART: Normal. PULMONARY VASCULATURE: Normal. LUNGS: There is a persistent left basilar infiltrate. The lungs are hyperinflated with flattened alec phragms consistent with underlying COPD. PLEURAL SPACE: No pleural effusion or pneumothorax. BONE:Within normal limits for the patient's age. OTHER FINDINGS:Normal. IMPRESSION: Stable left lower lobe infiltrate. No new infiltrates. DATA REPOSITORY: RADIATION DOSE DELIVERED:
--- NOTE | 2024-04-01 17:05 | W.ED.GENAD ---
Discharge Plan Disposition Patient Disposition: Admit to [facility] Discharge Details Clinical Impression: Acute UTI, Acute kidney injury, Decubitus ulcer of sacral region, stage 2, Septic shock, Left lower lobe pneumonia Admit Date/Time: 04/01/24 19:50 Admit Provider: Star Jaramillo Attending Provider: Star Jaramillo Primary Care Provider: Suzie Quan ED Provider: Alan Roque [facility] General Date/Time Provider Initiated Documentation: 04/01/24 17:05. HPI Narrative: MDM This is a hypotensive DNI DNR 83-year-old male with recent pneumonia diagnosis and history and physical most consistent with septic shock for which patient will receive cefepime vancomycin lactate following 2 sets of blood culture. No pain out of proportion to suggest necrotizing soft tissue infection. Patient is making troponin however he does not have chest pain and has a nonischemic ECG so I am not concerned for type I NSTEMI and feel that the patient more likely has supply/demand mismatch. Patient confirms DNI DNR. Soft nontender abdomen so not suspicious for any intra-abdominal infection. Patient's norepinephrine was uptitrated and he received a total of 2-1/2 L of IV fluids. Given recent prescription for prednisone will stress dose with hydrocortisone 100 mg. Lewis has been placed for accurate I's and O's. Patient does have an acute kidney injury. 7:55 PM Initiated vasopressin as patient was persistently hypotensive despite norepinephrine which is being uptitrated and 3 L of fluids in total. 8:55 PM Patient's troponin was rising. I felt that the risks of heparin and aspirin outweighed the benefits so I we will withhold days. Patient is going up to the ICU. I considered whether or not to place an arterial line in this patient however given his DO NOT INTUBATE/DNR status I felt that this invasive procedure carried unnecessary risks. Furthermore patient requested to avoid additional procedures. His blood pressure was obtained manually and his maps were greater than 65 mmHg. Chronic conditions affecting the care of the patient: Chronic respiratory failure hypoxia History obtained from an outside historian: Paramedics External record review: Limited [facility] EMR records [Diagnostic interpretations performed by me: Per my independent interpretation chest x-ray shows: Left lower lobe infiltrate Per my independent interpretation EKG shows: Normal sinus rhythm at a rate of 79. Right bundle branch block with left axis deviation?/bifascicular block. No acute injury pattern. Artifact in limb leads interferes with interpretation. ]Medications: Antibiotics fluids pressors Social determinants of health affecting disposition: N/A Management discussed with: Hospitalist Treatment/interventions considered: N/A Response to therapies provided: Improved symptoms in the ED HPI This is a DNI DNR 83-year-old male coming from local correction facility in the setting of hypotension recent diagnosis of pneumonia. Unable to obtain additional history secondary to the acuity of the patient's presentation. Patient is on baseline 4 L oxygen. Exam General: Chronically ill-appearing in no acute distress speaking in complete sentences. Head: Normocephalic, atraumatic. Eye: Extraocular eye movements intact. No conjunctival injection. No scleral icterus. Ear, nose, mouth, throat: Grossly normal inspection. Normal voice, handling secretions normally. Neck: Trachea midline. Cardiovascular: Well-perfused distal extremities. Regular rate and rhythm Respiratory: Nonlabored respiration. Decreased breath sounds bilateral bases. Gastrointestinal: Nondistended abdomen. Soft nontender. Musculoskeletal: No significant lower extremity pitting edema. Moving all 4 extremities spontaneously. Skin: Normal for age and race, grossly normal temperature and turgor. No acute rash. Stage II sacral decubitus ulcer Neurologic: Alert and appropriate, no apparent acute deficits. GCS 15. Related Data Home Medications ?Medication ?Instructions ?Recorded ?Confirmed albuterol sulfate 90 mcg/actuation 2 inh inhalation Q6H PRN 01/16/24 04/01/24 aerosol inhaler aspirin 81 mg tablet,delayed 81 mg PO DAILY 01/16/24 04/01/24 release (Adult Low Dose Aspirin) umeclidinium 62.5 mcg-vilanterol 1 inh inhalation DAILY 01/16/24 04/01/24 25 mcg/actuation powdr for inhalation (Anoro Ellipta) pantoprazole 40 mg tablet,delayed 40 mg PO DAILY 02/15/24 04/01/24 release acetaminophen 325 mg capsule 325 mg PO Q6H PRN 03/27/24 04/01/24 apixaban 2.5 mg tablet 2.5 mg PO BID 03/27/24 04/01/24 bisacodyl 10 mg rectal suppository 10 mg MO ONCE PRN 03/27/24 04/01/24 (Dulcolax (bisacodyl)) cholecalciferol (vitamin D3) 25 25 mcg PO DAILY 03/27/24 04/01/24 mcg (1,000 unit) capsule guaifenesin 600 mg tablet, 600 mg PO BID PRN 03/27/24 04/01/24 extended release 12 hr levofloxacin 750 mg tablet 750 mg PO DAILY #5 tabs 03/27/24 04/01/24 magnesium hydro 2,400 mg PO .COMPLEX 03/27/24 04/01/24 mirala 17 g PO PRN PRN 03/27/24 04/01/24 tamsulosin 0.4 mg capsule 0.4 mg PO DAILY 03/27/24 04/01/24 torsemide 20 mg tablet 20 mg PO DAILY 03/27/24 04/01/24 metoprolol succinate 50 mg 50 mg PO DAILY 04/01/24 04/01/24 tablet,extended release 24 hr prednisone 20 mg tablet 20 mg PO DAILY 04/01/24 04/01/24 Previous Rx's ?Medication ?Instructions ?Recorded levofloxacin 750 mg tablet 750 mg PO DAILY #5 tabs 03/27/24 Allergies Allergy/AdvReac Type Severity Reaction Status Date / Time No Known Allergies Allergy Verified 04/01/24 17:08 General TOMMY: 3 Medical Decision Making Quality:SDOH Health Related Social Needs: No Data to Display Critical Care Time Critical Care Time Critical Care Time: Yes Total Critical Care Time: 60 Attestation: Septic shock requiring bedside assessment and titration of pressors PFSH All Active Problems (Updated 04/01/24 @ 19:40 by Star Jaramillo) Elevated troponin level not due myocardial infarction (Acute) Acute on chronic respiratory failure with hypoxia and hypercapnia (Acute) Left lower lobe pneumonia (Acute) Septic shock (Acute) Decubitus ulcer of sacral region, stage 2 (Chronic) Acute kidney injury (Acute) Acute UTI (Acute) Pneumonia (Acute) Displaced fracture of right femoral neck (Acute) COPD without exacerbation (Acute) Sepsis (Acute) Acute hypoxic respiratory failure (Acute) Social History Smoking/Tobacco Use Status: Former Tobacco Use Smoking risk assessment performed?: Yes Alcohol Intake: never Drug use: Never Substance use type: does not use Housing: senior care Do you feel safe at home: Yes Do you feel safe in your relationship?: Yes Additional Social history: H+R
[2024-04-01] MEDS: CEFEPIME 2 GM in Normal Saline 100 ML IVPB (17:25)
[2024-04-01 17:31] LABS: BE (Venous) 20 mmol/L (-2-3); HCO3 (Venous) 45 mmol/L (23-28); O2 Sat (Venous) 30 %; TCO2 (Venous) 43 mmol/L (24-29); pH (Venous) 7.39 (7.31-7.41); pO2 (Venous) 22 mmHg
[2024-04-01 17:33] LABS: Abs Immature Grans 0.11 10^3/uL (0.0-0.06); Absolute Basophil Count 0.02 10^3/uL (0.0-0.2); Absolute Lymphocyte Count 0.36 10^3/uL (1.2-3.4); Basophils % 0.1 %; Eosinophils % 0.2 %; HCT 31.8 % (40.0-50.0); HGB 9.9 g/dL (13.5-17.5); Immature Grans % 0.7 %; Lymphocytes % 2.2 %; MCH 31.6 pg (27.0-33.0); MCHC 31.1 % (32.0-36.0); MCV 102 fL (80-95); MPV 10.5 fL (8.0-11.0); Neutrophils % 93.8 %; Platelet Count 273 10^3/uL (130-400); RBC 3.13 10^6/uL (4.36-5.78); RDW 13.9 % (11.8-14.1); RDW-SD 51.3 fL; WBC 16.48 10^3/uL (4.4-10.8); pCO2 (Venous) 73 mmHg (41-51)
[2024-04-01 17:34] LABS: Lactate 1.8 mmol/L (0.6-1.4)
[2024-04-01 17:36] LABS: Absolute Eosinophil Count 0.03 10^3/uL (0.0-0.7); Absolute Monocyte Count 0.49 10^3/uL (0.1-0.8); Absolute Neutrophil Count 15.46 10^3/uL (1.2-6.7)
[2024-04-01] MEDS: Normal Saline 500 ML 1000 ML IV ×3 (17:37→19:35)
[2024-04-01 17:46] LABS: Bilirubin Negative (Negative); Blood Trace-intact (Negative); Clarity Clear (Clear); Glucose Negative (Negative); Ketones Negative (Negative); Leukocyte Esterase Large (Negative); Nitrite Negative (Negative); Urobilinogen 0.2 mg/dL (Up to 0.2); pH 5.5 (5-8)
[2024-04-01] MEDS: VANCOMYCIN 2,000 MG in Normal Saline 500 ML 333.3333 MG IVPB (17:49)
--- OUTSIDE RECORDS SUMMARY | 2024-04-01 17:52 | XMS_ITS | Clinical Summary ---
Author Organization [facility] Address [address] [place] [address] Care Team Providers Care Distillery Worker Name Role Phone Suzie Quan MD Primary Care Provider [phone] Allergies No known active allergies Medications metoprolol SUCCinate (TOPROL-XL) 25 mg tablet Take 1 Tablet by mouth daily. Active pantoprazole (PROTONIX) 40 mg tablet Take 1 Tablet by mouth daily before breakfast. Active aspirin chewable 81 mg tablet Take 1 Tablet by mouth daily. Active albuterol 90 mcg/actuation HFA aerosol inhaler inhaler Inhale 2 Puffs as directed 4 times daily. 4 Active ANORO ELLIPTA 62.5-25 mcg/actuation inhaler Inhale 1 Puff as directed daily. 4 Active apixaban (ELIQUIS) 2.5 mg tablet Take 1 Tablet by mouth 2 times daily. 4 Active cholecalciferol , Vitamin D3, 50 mcg (2,000 unit) tablet Take 1 Tablet by mouth daily. 4 Active guaiFENesin (MUCINEX) 600 mg SR tablet Take 1 Tablet by mouth 2 times daily. 4 Active HYDROmorphone (DILAUDID) 2 mg tablet Take 1 Tablet by mouth every 4 hours as needed for up to 10 doses for Pain. Daily Max: 12 mg 10 Tablet 4 Active ipratropium-alb uteroL (DUONEB) 0.5 mg-3 mg(2.5 mg base)/3 mL nebulizer solutionIndicat ions:Pulmonary emphysema, unspecified emphysema type (HCC-CMS) Take 3 mL by nebulization 4 times daily. Active TAMSulosin (FLOMAX) 0.4 mg capsule Take 1 Capsule by mouth daily. Active torsemide (DEMADEX) 20 mg tablet Take 1 Tablet by mouth daily. Active nystatin (MYCOSTATIN) 100,000 unit/mL suspension Take 5 mL by mouth 4 times daily for 4 days. 80 mL 024 Active Problems Problem Noted Date Diagnosed Date PFO (patent foramen ovale) 02/27/2024 Atrial fibrillation ([facility]) 02/26/2024 Urinary retention 02/26/2024 Hypertension 02/26/2024 Thrush 02/26/2024 Osteoporosis with current pathological fracture 02/22/2024 Heart failure ([facility]) 02/16/2024 Pulmonary hypertension ([facility]) 02/16/2024 Chronic obstructive pulmonary disease ([facility]) 02/16/2024 Acute hypoxic respiratory failure ([facility]) 11/2023 Closed right hip fracture, initial encounter ([facility]) 02/15/2024 Acute on chronic respiratory failure with hypoxia and hypercapnia ([facility]) 02/15/2024 Pneumonia due to infectious organism 02/15/2024 Encounters Date Type Department Care Team Description 03/14/2024 Orders Only [facility] Hand & Upper Extremity Program - [address] [place] [address] Ko Marquis PA-C Closed fracture of right hip with routine healing, subsequent encounter (Primary Dx) 02/27/2024 Telephone [facility] Endocrinology - [address] [address] Farnaz Rivas, DO Follow-up; Returning Call 02/23/[address] [address] Farnaz Rivas, DO Appointment Related (Called and left message with referral department. With Dr. Quijano message://Farnaz Rivas, DO?Ashley Rae MA/Kevin, looks like patient still in hospital. Please see if PCP willing to address or we can see patient when he is able if desired, I'm happy to discuss with PCP if needed. Thanks!/) 02/17/2024 11:57 EST Anesthesia Event [facility] OR [address] [place] [id number] Jason Morse MD 02/17/2024 11:30 EST - 02/17/2024 15:15 EST Surgery [facility] OR [address] [place] [id number] Augustine Ceja MD Open treatment of right femoral neck fracture with hemiarthroplasty [10656 (CPT??)] 02/16/2024 15:41 EST - 02/29/2024 12:20 EST Hospital Encounter [facility] General Medicine Unit [address] [place] [address] Ritesh Cardenas MD Clements, Benjamin, MD Foerg, Florian Ernst, MD Hingre, Jonathan R, MD Burgess, Lee-Anna, MD Farrell, Georgia, MD Closed right hip fracture, initial encounter ([facility]) (Primary Dx); Acute hypoxic respiratory failure ([facility]) [J96.01]; Osteoporosis with current pathological fracture, unspecified osteoporosis type, initial encounter; Chronic obstructive pulmonary disease, unspecified COPD type ([facility]) [J44.9]; Pulmonary hypertension ([facility]) [I27.20]; Atrial fibrillation, unspecified type ([facility]) [I48.91]; Urinary retention [R33.9]; Hypertension, unspecified type [I10]; Thrush [B37.0]; PFO (patent foramen ovale); Pulmonary emphysema, unspecified emphysema type ([facility]) Discharge Disposition: Nursing Facility (Skilled) 02/16/2024 Travel 02/15/2024 13:50 EST - 02/16/2024 14:42 EST Hospital Encounter [facility] Intensive Care Unit [address] [place] [address] Homer Tan MD Gilkey, Calvin T, MD Swayze-Quinn, Hannah, MD Closed right hip fracture, initial encounter ([facility]) [S72.001A] (Primary Dx); Acute on chronic respiratory failure with hypoxia and hypercapnia ([facility]) [J96.21, J96.22]; Pneumonia due to infectious organism, unspecified laterality, unspecified part of lung [J18.9]; Heart failure, unspecified HF chronicity, unspecified heart failure type ([facility]); Pulmonary HTN ([facility]); Pulmonary emphysema, unspecified emphysema type ([facility]) Discharge Disposition: Short Term Hospital 02/15/2024 11:03 EST - 02/15/2024 13:49 EST Hospital Encounter [facility] [place] Discharge Disposition: Home or Self Care 02/15/2024 10:58 EST - 02/15/2024 11:02 EST Hospital Encounter [facility] [place] Discharge Disposition: Home or Self Care 02/15/2024 10:56 EST - 02/15/2024 10:57 EST Hospital Encounter [facility] [place] Discharge Disposition: Home or Self Care 02/15/2024 10:53 EST - 02/15/2024 10:55 EST Hospital Encounter [facility] [place] Discharge Disposition: Home or Self Care 02/15/2024 Prep for Procedure [facility] Orthopedics & Sport Medicine [address] [place] [address] Buzz Freed MD Closed right hip fracture, initial encounter ([facility]) (Primary Dx) from Last 3 Months Surgical History Surgery Date Site/Laterality Comments HIP FRACTURE SURGERY 02/17/2024 Right hemiarthroplasty w/ Dr. Ceja Social History Tobacco Use Types Packs/Day Years Used Date Smoking Tobacco: Former Cigarettes Tobacco Cessation:Counseling Given: No Alcohol Use Standard Drinks/Week Comments Never 0 (1 standard drink = 0.6 oz pur e alcohol) [facility] Utilities Answer Date Recorded In the past 12 months has e [employer], gas, oil, or water company threatened to [...] were you homeless or living in a penitentiary (including now)? No 02/16/2024 [facility] - Inadequate Housing Answer Date Re corded What is your living situation today? I have a [facility] place to live 02/20/[address] you li ve. Do you have problems with any of the following? None of the above 02/20/2024 Interpersonal Safety Answer Date Record ed How often does anyone, incljustice sergio family, hit, punch or physically hurt [...] Contact Info) Description 04/05/2024 10:15 EST Appointment [facility] Xray [address] [place] [address] 04/05/2024 10:30 EST Post-op Visit [facility] Orthopedic Trauma - [facility] [address] [place] [address] Ko Marquis PA-C [address] [place] [address] Health Maintenance Due Date Last Done Comments Copd Action Plan 1938 Lung Function Test (Spirometry) 1938 Fall Risk Screening 2003 RSV Immunization ( o r 60+ Years) (1 - 1-dose 75+ series) 2013 COVID-19 Vaccine ( season) 2023 Post-Fragility Fracture Evaluation 02/15/2024 Medical Devices Implanted Type Area Statue Carver Device Identifier Shelf Expiration Date Model / Serial / Lot Cement Bone High Viscosity Tobramycin Radiopaque Single Dose Magaña 40gm Simplex [id number] - [id number] Implanted:Qty: 2 on 02/17/2024 by Augustine Ceja MD at [facility] Ortho Implant Right: Hip [facility] [id number] 08/07/2024 6197-9-00 / 6197-9-00 1 / [id number] Hip Femoral Stem Cmntd 132deg Std Offst Sz 4 [id number] Accolade C [id number] - [id number] Implanted:Qty: 1 on 02/17/2024 by Augustine Ceja MD at [facility] Total Joint Implant Right: Hip [employer] [id number] 01/01/2029 9302-7047 D / [id number] D / [id number] Hip Spacer Stem Distal Cemented 11mm Accolade [id number] - [id number] Implanted:Qty: 1 on 02/17/2024 by Augustine Ceja MD at [facility] Total Joint Implant Right: Hip [employer] [id number] 10/23/2028 4312-4558 / [id number] / [id number] Restrictor Cement Lynn 25mm Distal Fem Hip Recon Surgery St - [id number] Implanted:Qty: 1 on 02/17/2024 by Augustine Ceja MD at [facility] Total Joint Implant Right: Hip [employer] 09/19/2033 [id number] / [id number] / [id number] Hip Head Unipolar Cocr 53mm Unitrax [id number] - [id number] Implanted:Qty: 1 on 02/17/2024 by Augustine Ceja MD at [facility] Total Joint Implant Right: Hip [employer] [id number] 02/07/2028 6942-5-05 3 / 6942-5-05 3 / [id number] Hip Taper Sleeve Standard Offset Femoral V40 [id number] - [id number] Implanted:Qty: 1 on 02/17/2024 by Augustine Ceja MD at [facility] Total Joint Implant Right: Hip [employer] [id number] 11/05/2028 6942-6-06 5 / 6942-6-06 5 / [id number] Procedures Procedure Name Priority Date/Time Associated Diagnosis [...] EST Closed right hip fracture, initial encounter ([facility]) XR HIP LEFT 1 VIEW Routine 02/17/2024 15 :20 EST Closed right hip fracture, initial encounter ([facility]) ANESTHESIA ARTERIAL LINE PLACEMENT Routine 02/17/2024 13:05 EST ANESTHESIA SPINAL BLOCK Routine 02/17/20 24 12:25 EST OPEN TREATMENT, FRACTURE, FEMUR, NECK, WITH INTERNAL FIXATION OR INSERTION OF PROSTHETIC 02/17/2024 11:44 EST Closed right hip fracture, initial encounter ([facility]) PROTIME STAT 02/17/2024 11:41 EST POCT GLUCOSE, [...] 03/04/2024 11:3 9 EST us Scan 2 Garden Machinery Mechanic PROCEDURE/MINOR SURGICAL OR DERABLES Final Result * ECG REPORT - SCANNED (03/04/2024 9:35 EST) 03/04/2024 9:35 EST us Scan 2 [employer] Mechanic PROCEDURE/MINOR SURGICAL OR DERABLES Final Result * ECG REPORT - SCANNED (02/28/2024 10:36 EST) 02/28/2024 10:3 6 EST us Scan 2 Garden Machinery Mechanic PROCEDURE/MINOR SURGICAL OR DERABLES Final Result * (ABNORMAL) COMPLETE BLOOD COUNT (02/28/2024 10:26 EST) Only the most recent of12 resultswithin the time period is included. WBC 16.63(H) 4.00 - 10.40 K/cmm 02/28/2024 11:06 [facility] RBC 3.09(L) 4.36 - 5.78 M/cmm 02/28/2024 11:06 [facility] Hemoglobin 10.3(L) 13.8 - 17.3 g/dL 02/28/2024 11:06 [facility] HCT 30.5(L) 39.5 - 50.2 % 02/28/2024 11:06 [facility] MCV 99(H) 81 - 95 fL 02/28/2024 11:06 [facility] MCH 33.3(H) 27.6 - 33.0 pg 02/28/2024 11:06 [facility] MCHC 33.8 32.8 - 36.4 g/dL 02/28/2024 11:06 [facility] RDW-CV 15.2(H) <14.2 % 02/28/2024 11:06 [facility] RDW-SD 55.3(H) <46.0 fl 02/28/2024 11:06 [facility] PLT 362 141 - 377 K/cmm 02/28/2024 11:06 [facility] MPV 10.1 9.5 - 12.7 fL 02/28/2024 11:06 [facility] Blood VENOUS BLOOD / Unknown Venipuncture / Unknown 02/28/2024 10:26 EST 02/28/2024 10:54 EST us Pushpa Welch MD HEMATOLOGY & PF4 ORDERABLES F inal Result [facility] [address] [place] [address] * (ABNORMAL) BASIC METABOLIC PANEL (BMP) (02/28/2024 10:26 EST) Only the most recent of10 resultswithin the time period is included. Sodium 137 136 - 145 mmol/L 02/28/2024 11:44 [facility] Potassium 3.7 3.5 - 5.0 mmol/L 02/28/2024 11:44 [facility] Chloride 95(L) 96 - 110 mmol/L 02/28/2024 11:44 [facility] CO2 Total 38(H) 22 - 32 mmol/L 02/28/2024 11:44 [facility] Anion Gap 4(L) 5 - 14 mmol/L 02/28/2024 11:44 [facility] Glucose 127(H) 70 - 99 mg/dl 02/28/2024 11:44 [facility] Calcium 8.4(L) 8.5 - 10.5 mg/dL 02/28/2024 11:44 [facility] BUN 34(H) 10 - 26 mg/dL 02/28/2024 11:44 [facility] Creatinine 1.32(H) 0.66 - 1.25 mg/dL 02/28/2024 11:44 [facility] eGFR 53(L) >60 mL/min/1.73 m2 02/28/2024 11:44 [facility] Blood VENOUS BLOOD / Unknown Venipuncture / Unknown 02/28/2024 10:26 EST 02/28/2024 10:55 EST Pushpa Welch MD CHEMISTRY & BLOOD GAS ORDERAB LES Final Result [facility] [address] [place] [id number] * (ABNORMAL) NT PRO BNP (02/27/2024 15:55 EST) Only the most recent of2 resultswithin the time period is included. NT-pro BNP 1,210(H) <326 pg/mL 02/27/2024 16:57 [facility] Comment: In the acute setting NT-proBNP values <300 pg/mL have a 98% NPV for excluding acute heart failure. In outpatient populations, NT-proBNP values <125 have a 99% NPV for excluding heart failure. Blood VENOUS BLOOD / Unknown Venipuncture / Unknown 02/27/2024 15:55 EST 02/27/2024 16:02 EST us Bryan Weiss MD CHEMISTRY & BLOOD GAS ORDERABL ES Final Result [facility] [address] [place] [address] * TRANSTHORACIC ECHO (TTE) LIMITED W/DOPPLER W/CF [...] may represent aspiration pneumonitis. Small right effusion. [id number] Narrative 02/26/2024 12:16 EST XR CHEST PORTABLE [...] findings: ??Normal. Bones: Normal. Resulting Agency Comment [id number] Procedure Note Karo Schmidt MD - 02/26/2024 [...] which may representaspiration pneumonitis. Small right effusion. [id number] us Pushpa Welch MD IMG DIAGNOSTIC IMAGING ORDERA BLES Final Result * MRSA PCR (02/20/2024 5:04 EST) Only the most recent of2 resultswithin the time period is included. MRSA/Staph aureus Result No Staphylococcus aureus detected by PCR 02/20/2024 13:18 EST [facility] Swab BOTH ANTERIOR NARES / Unknown Swab / Unknown 02/20/2024 5:04 EST 02/20/2024 7:15 EST us Sandie Miller DO MICROBIOLOGY - GENERAL ORDERABLE S Final Result [facility] [address] [place] [address] * ECG REPORT - SCANNED (02/19/2024 14:12 EST) 02/19/2024 14:1 2 EST us Scan 2 [employer] Mach[employer] Mechanic PROCEDURE/MINOR SURGICAL OR DERABLES Final Result * XR CHEST PORTABLE 1 VIEW (02/18/2024 15:38 EST) Anatomical Region Laterality Modality Computed Radiogr aphy 02/18/2024 15:4 8 EST Impressions 02/18/2024 15:48 EST Bilateral small pleural effusions and bibasilar opacities compatible with atelectasis. [id number] Narrative 02/18/2024 15:48 EST XR CHEST PORTABLE 1 VIEW ??02/18/2024 3:24 PM Clinical History/comments: hypoxia Comparison: 02/16/2024. Technique: Single portable AP view of the chest. Findings: Lines/tubes/devices: ??None Lungs: Left greater than right basilar opacities Pleura: Bilateral pleural effusions Cardiac and mediastinal contours: Stable Soft tissues and extrathoracic findings: No acute abnormalities Bones: No acute abnormalities Resulting Agency Comment [id number] Procedure Note Gordo Palm MD - 02/18/2024 [...] pleural effusions and bibasilar opacities compatible withatelectasis. [id number] Marcos Quintero MD IM DIAGNOSTIC IMAGING OR DERABLES Final Result * VITAMIN D (25,OH) (02/18/2024 6:28 EST) 25OH Vitamin D Tot 38 30 - 100 ng/mL 02/19/2024 10:50 EST [facility] Comment: Vitamin D 25,OH Interpretive Ranges: Deficiency: ??<10.0 ng/mL Insufficiency: ??10.0 - 30.0 ng/mL Sufficiency: ??30.0 - 100.0 ng/mL Toxicity: ??>100.0 ng/mL Blood VENOUS BLOOD / Unknown Venipuncture / Unknown 02/18/2024 6:28 EST 02/18/2024 6:38 EST us Marcos Quintero MD CHEMISTRY & BLOOD GAS ORD ERABLES Final Result [facility] [address] [place] [address] * (ABNORMAL) COMPREHENSIVE METABOLIC PANEL (CMP) (02/18/2024 6:28 EST) Only the most recent of4 resultswithin the time period is included. Sodium 134(L) 136 - 145 mmol/L 02/18/2024 7:09 [facility] Potassium 4.5 3.5 - 5.0 mmol/L 02/18/2024 7:09 [facility] Chloride 97 96 - 110 mmol/L 02/18/2024 7:09 [facility] CO2 Total 36(H) 22 - 32 mmol/L 02/18/2024 7:09 [facility] Glucose 110(H) 70 - 99 mg/dl 02/18/2024 7:09 [facility] BUN 70(H) 10 - 26 mg/dL 02/18/2024 7:09 [facility] Creatinine 2.11(H) 0.66 - 1.25 mg/dL 02/18/2024 7:09 [facility] eGFR 30(L) >60 mL/min/1.7 3m2 02/18/2024 7:09 [facility] Total Protein 5.0(L) 6.3 - 8.2 g/dL 02/18/2024 7:09 [facility] Albumin 2.7(L) 3.4 - 4.9 g/dL 02/18/2024 7:09 [facility] Alkaline Phosphatase 80 38 - 126 U/L 02/18/2024 7:09 [facility] AST 33 15 - 46 U/L 02/18/2024 7:09 [facility] ALT 36 <50 U/L 02/18/2024 7:09 [facility] Bilirubin, Total <0.5 <1.4 mg/dL 02/18/20 7:09 [facility] Calcium 8.2(L) 8.5 - 10.5 mg/dL 02/18/2024 7:09 [facility] Albumin/Globulin Ratio 1.2 1.0 - 2.5 02/18/2024 7:09 [facility] Anion Gap 1(L) 5 - 14 mmol/L 02/18/2024 7:09 [facility] Blood VENOUS BLOOD / Unknown Venipuncture / Unknown 02/18/2024 6:28 EST 02/18/2024 6:38 EST us Sandie Miller DO CHEMISTRY & BLOOD GAS ORDERABLES Final Result Performing Organization Address City/[facility]/ZIP Co de Phone Number [facility] [address] [place] [address] * POCT GLUCOSE, INTERFACED (02/17/2024 17:48 EST) Only the most recent of5 resultswithin the time period is included. Glucose, POC 84 70 - 100 mg/dL 02/17/2024 17:49 [facility] HN LAB POC COMMENT (GLUCOSE) Test Performed by Nursing Services 02/17/2024 17:49 [facility] Blood CAPILLARY BLOOD / Unknown 02/17/2024 17:48 EST 02/17/2024 17:49 EST us Sandie Miller DO POINT OF CARE TEST ORDERABLES Fi nal Result [facility] [address] [place] [address] * XR HIP RIGHT 1 VIEW (02/17/2024 15:20 EST) Anatomical Region Laterality Modality Lower Extremities Right Computed Radio graphy 02/17/2024 16:1 3 EST Impressions 02/17/2024 16:13 EST FINDINGS/IMPRESSION: 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 No periprosthetic fracture is seen. No acute left hip abnormality is seen. Atherosclerotic calcifications are present bilaterally. [id number] Narrative 02/17/2024 16:13 EST XR HIP RIGHT [...] abnormality is seen. Atherosclerotic calcifications arepresent bilaterally. [id number] Augustine Ceja MD IMG DIAGNOSTIC IMAGING OR [...] is seen. Atherosclerotic calcifications are present bilaterally. [id number] Narrative 02/17/2024 16:13 EST XR HIP RIGHT [...] of the lower pelvis. Resulting Agency Comment [id number] Procedure Note Gordo Palm MD - 02/17/2024 [...] abnormality is seen. Atherosclerotic calcifications arepresent bilaterally. [id number] us Augustine Ceja MD IMG DIAGNOSTIC IMAGING OR DERABLES Final Result * SD ARTL CATHJ/CANNULJ MNTR/TRANSFUSION SPX PRQ (02/17/2024 13:05 EST) [facility]ative [facility] - 02/17/2024 13:05 EST Jason Morse MD ? 02/17/2024 14:40 Arterial Line Placement Date/Time: 02/17/2024 13:05 Staffing Performed: anesthesiologist and resident/COMPUTER FORENSIC EXAMINER/AA Performed by: Jason Morse MD Authorized by: [...] Final Result [facility] POINT OF CARE * SD AN SPINAL BLOCK - CATHETER (02/17/2024 12:25 EST) Narrative Lio Billings AA - 02/17/2024 12:25 EST Lio Billings AA ? 02/17/2024 12:28 Spinal Block Start time: 02/17/2024 12:27 End time: 02/17/2024 12:27 Reason for Procedure: ??surgical anesthesia Staffing Performed: resident/COMPUTER FORENSIC EXAMINER/AA and anesthesiologist Performed by: Lio Billings AA [...] 0.9 - 1.1 Ratio 02/17/2024 12:08 EST [facility] Pro Time 11.2 9.7 - 12.8 secs 02/17/2024 12:08 EST [facility] Blood VENOUS BLOOD / Unknown Venipuncture / Unknown 02/17/2024 11:41 EST 02/17/2024 11:50 EST Narrative [facility] - 02/17/2024 12:08 EST Moderate Intensity Coumadin INR = 2.0-3.0 Adjustments in anticoagulant therapy dose should be based on the INR and NOT on the Protime. us Jason Morse MD HEMATOLOGY & PF4 ORDERABLES Final Result Performing Organization Address City/[facility]/ZIP Co de Phone Number [facility] [address] [place] [address] * MAGNESIUM (02/17/2024 5:58 EST) Magnesium 2.1 1.7 - 2.8 mg/dL 02/17/2024 7:11 EST [facility] Blood VENOUS BLOOD / Unknown Venipuncture / Unknown 02/17/2024 5:58 EST 02/17/2024 6:07 EST us Marti Horn MD CHEMISTRY & BLOOD GAS ORDERABLES Final Result Performing Organization Address City/[facility]/ZIP Co de Phone Number [facility] [address] [place] [address] * TYPE AND SCREEN (02/16/2024 20:00 EST) ABO O 02/16/2024 21:54 EST [facility] Rh Factor Positive 02/16/2024 21:54 EST [facility] Antibody Screen Negative 02/16/2024 21:54 EST [facility] Specimen Expires: 02/19/2024 @ 23:59 02/16/2024 21:54 EST [facility] Blood VENOUS BLOOD / Unknown Venipuncture / Unknown 02/16/2024 20:00 EST 02/16/2024 20:09 EST us Ritesh Cardenas MD BLOOD BANK TESTS Edited Resul t - Final [facility] [address] [place] [address] * CT ANGIO CHEST PE PROTOCOL (02/16/2024 [...] above interpretation and agree with the findings. [id number] Narrative 02/17/2024 10:[address] ANGIO CHEST [...] lesions. Multilevel degenerative changes. Resulting Agency Comment [id number] Procedure Note Sonia Salazar MD - 02/17/2024 [...] the above interpretation andagree with the findings. [id number] us Sandie Miller DO IMG CT ORDERABLES [...] left hip. The soft tissues are unremarkable. [id number] Narrative 02/16/2024 18:27 EST XR HIP LEFT 2-3 VIEWS OPTIONAL PELVIS, XR HIP RIGHT 1 VIEW ??02/16/2024 5:52 PM Signs and Symptoms/Comments: right hip pain Comparison: Pelvic x-ray 02/15/2024. Technique: AP orthopedic view of the pelvis which includes an AP view of both hips, with additional AP view of the left hip. Resulting Agency Comment [id number] Procedure Note Sonia Salazar MD - 02/16/2024 [...] theleft hip. The soft tissues are unremarkable. [id number] Ritesh Cardenas MD IMG DIAGNOSTIC IMAGING ORDERA [...] left hip. The soft tissues are unremarkable. [id number] Narrative 02/16/2024 18:27 EST XR HIP LEFT [...] theleft hip. The soft tissues are unremarkable. [id number] us Ritesh Cardenas MD IMG DIAGNOSTIC IMAGING ORDERA BLES Final Result * (ABNORMAL) PROCALCITONIN (02/16/2024 17:00 EST) Procalcitonin 0.96(H) See Note ng/mL 02/16/2024 18:25 EST [facility] Comment: NOTE: Reference Range: <0.5 ng/mL - Low risk of severe sepsis >2.0 ng/mL - High risk of severe sepsis Blood VENOUS BLOOD / Unknown Venipuncture / Unknown 02/16/2024 17:00 EST 02/16/2024 17:15 EST us Sandie Miller DO CHEMISTRY & BLOOD GAS ORDERABLES Final Result [facility] [address] [place] [address] * (ABNORMAL) PTT (02/16/2024 17:00 EST) PTT 20(L) 26 - 37 secs 02/16/2024 18:17 EST [facility] Blood VENOUS BLOOD / Unknown Venipuncture / Unknown 02/16/2024 17:00 EST 02/16/2024 17:30 EST Ritesh Cardenas MD HEMATOLOGY & PF4 ORDERABLES F inal Result Performing Organization Address [facility] Co de Phone Number [facility] [address] [place] [address] * HEPARIN LEVEL - UNFRACTIONATED HEPARIN (02/16/2024 17:00 EST) Heparin Level-UFH 0.05 Therapeutic Range: 0.30 - 0.70 IU/mL 02/16/2024 18:22 EST [facility] Comment:Unfractionated hepar in [...] ORDERABLES Saadia l Result Performing Organization Address [facility] Co de Phone Number [facility] [address] [place] [phone] * (ABNORMAL) HEMOGLOBIN A1C (02/16/2024 17:00 EST) Hemoglobin A1c 6.1(H) <5.7 % 02/16/2024 21:15 EST [facility] Comment: Glycemic Status References: Normal: ??<5.7% Pre-Diabetes: ??5.7% - 6.4% Diagnostic of Diabetes: ??> or = 6.5% (if confirmed) Est Avg Glucose 128 mg/dL 21:15 EST [facility] Comment:The eAG represents t he A1c result expressed as average glucose in mg/dL. Blood VENOUS BLOOD / Unknown Venipuncture / Unknown 02/16/2024 17:00 EST 02/16/2024 17:16 EST us Sandie Miller DO CHEMISTRY & BLOOD GAS ORDERABLES Final Result [facility] [address] [place] [address] * EKG 12-LEAD (02/16/2024 16:44 EST) 02/16/2024 16:4 4 EST Narrative [facility] EKG - 02/28/2024 10:28 EST ? [facility] ? Test Date: ?2024-02-16 Pat Name: ? BI SUE ? Department: ?? [facility] 4 ? Room: ? M415 Gender: ? Male ? Rn Otolaryngology: ?? : ?1940 ? Requested By: JESUS FREEMAN Order Number: [id number] ? Reading MD: ?? IMANI LOMAS MD ? Measurements Intervals ?[place] ? Rate: ? 104 ?P: ?73 SD: ? 147 ?QRS: ?-58 QRSD: ? 127 [...] Note Imani Lomas MD - 02/28/2024 [facility] Test Date: 2024-02-16 Pat Name: BI SUE Department: Garcia 4 Room: [facility] Gender: Male Rn Otolaryngology: : 1940 Requested By: JESUS FREEMAN Order Number: [id number] Reading MD: IMANI LOMAS MD Measurements Intervals [place] Rate: 104 P: 73 SD: 147 QRS: -58 QRSD: 127 T: 61 [...] preliminary report. Edited by CRISTELA TERRY MD [id number] 20:18:03 EST. I reviewed the tracing and have either agreed or edited the findings inthis report. Electronically Signed On 02-28-2024 10:28:35 EST by CAPO CLEMONS. us Sandie Miller DO CARDIAC ECG ORDERABLES Final Res ult [facility] EKG * EXPANDED RESPIRATORY VIRAL PANEL, PCR (DOES NOT INCLUDE INFLUENZA OR RSV) (02/16/2024 12:07 EST) Paraflu Type 1 Rslt (PF1RES) Negative Negative 02/17/2024 1:26 EST [facility] Paraflu Type 2 Rslt (PF2RES) Negative Negative 02/17/2024 1:26 EST [facility] Paraflu Type 3 Rslt (PF3RES) Negative Negative 02/17/2024 1:26 EST [facility] Paraflu Type 4 Rslt Negative Negative 02/16 1:26 EST [facility] Rhinovirus RNA Rslt (RVRES) Negative Negative 02/17/2024 1:26 EST [facility] Metapneumovirus RNA Rslt (HMVRES) Negative Negative 02/17/2024 1:26 EST [facility] Adenovirus DNA Rslt (ADVRES) Negative Negative 02/17/2024 1:26 EST [facility] Swab NASOPHARYNGEAL STRUCTURE / Unknown Swab / Unknown 02/16/2024 12:07 EST 02/16/2024 12:39 EST Dominique Goldstein MD MICROBIOLOGY - GENERAL ORDERABLE S Final Result [facility] [address] [place] [address] * MRSA PCR (02/16/2024 11:36 EST) [facility] MRSA PCR Not Detected Not Detected 02/16/2024 13:27 EST LAB[facility] Comment:MRSA target DNA is n ot detected (presumed not colonized with MRSA). Swab BOTH ANTERIOR NARES / Unknown Swab / Unknown 02/16/2024 11:36 EST 02/16/2024 11:45 EST us Dominique Goldstein MD MICROBIOLOGY - GENERAL ORDERABLE S Final Result Performing Organization Address City/[facility]/ZIP Co de Phone Number LABORATORY SERVICES [address] [place] [id number] * STREPTOCOCCUS PNEUMONIAE ANTIGEN, URINE (02/16/2024 11:36 EST) Pathologist [facility] Strep Pneumo Ag Detection, Urine Negative Negative [...] be below detection limit of the test. us Dominique Goldstein MD MICROBIOLOGY - GENERAL ORDERABLE S Final Result Performing Organization Address [facility]/ZIP Co de Phone Number LABORATORY SERVICES [address] [place] [address] * LEGIONELLA ANTIGEN DETECTION, URINE (02/16/2024 11:36 EST) Legionella Antigen Detection Negative Negative 02/16/2024 12:33 EST LABOR[facility] SERVICES Urine URINE / Unknown Urine Collect / Unknown 02/16/2024 11:36 EST 02/16/2024 11:45 EST [facility] - 02/16/2024 12:33 EST [...] S Final Result Performing Organization Address [facility] Co de Phone Number LABORATORY SERVICES [address] [place] [address] * XR CHEST PORTABLE 1 VIEW (02/16/2024 10:59 EST) Anatomical Region Laterality Modality Computed Radiogr aphy 02/16/2024 11:0 5 EST Impressions 02/16/2024 11:05 EST Small bilateral pleural effusions. Slight interval increase in patchy airspace opacities at both lung bases and in the suprahilar right lung. [id number] Narrative 02/16/2024 11:05 EST XR CHEST PORTABLE [...] findings: ??Normal. Bones: Normal. Resulting Agency Comment [id number] Procedure Note Aaron Boone MD - 02/16/2024 [...] bases and in the suprahilar right lung. [id number] us Leda Ng MD IMG DIAGNOSTIC IMAGING OR DERABLES Final Result * ECG REPORT - SCANNED (02/16/2024 10:05 EST) 02/16/2024 10:0 5 EST us Scan 2 [employer] Mechan[employer] PROCEDURE/MINOR SURGICAL OR DERABLES Final Result * [...] ORDERAB LES Final Result [facility] [address] [place] [address] * TRANSTHORACIC ECHO (TTE) COMPLETE W/DOPPLER W/CF [...] i-STAT 7.44(H) 7.31 - 7.41 02/16/2024 5:43 [facility] pCO2, Venous, i-STAT 45 41 - 51 mmHg 02/16/2024 5:43 [facility] pO2, Venous, i-STAT 41 30 - 50 mmHg 02/16/2024 5:43 [facility] TCO2, Venous, i-STAT 32(H) 22 - 28 mmol/L 02/16/2024 5:43 [facility] O2 Saturation, Venous, i-STAT 78 60 - 85 % 02/16/2024 5:43 [facility] Base Excess(+) / Deficit(-), Venous, i-STAT 6(H) -2 - 3 mmol/L 02/16/2024 5:43 [facility] Blood VENOUS BLOOD / Unknown 02/16/2024 5:41 EST 02/16/2024 5:43 EST Narrative LABORATORY SERVICES - 02/16/2024 5:43 EST Test Performed by Respiratory us Lacey Hassan DO POINT OF CARE TEST ORDERABL ES Final Result [facility] [address] [place] [address] * CK (02/16/2024 5:37 EST) Only the most recent of2 resultswithin the time period is included. CK 114 <=250 U/L 02/16/2024 6:05 EST [facility] Comment:Moderate hemolysis i dentified, interpret with caution as results may be affected due to hemolysis. Blood VENOUS BLOOD / Unknown Venipuncture / Unknown 02/16/2024 5:37 EST 02/16/2024 5:43 EST us Krystian Anne MD CHEMISTRY & BLOOD GAS ORDERAB LES Final Result Performing Organization Address [facility] de Phone Number LABORATORY SERVICES [address] [place] [address] * HN LAB CBC SMEAR REVIEW (02/16/2024 5:36 EST) Differential Comment Slide was examined by a technologist to verify the WBC and/or platelet count. 02/16/2024 6:01 EST [facility] Blood VENOUS BLOOD / Unknown Venipuncture / Unknown 02/16/2024 5:36 EST 02/16/2024 5:43 EST Homer Tan MD HEMATOLOGY & PF4 ORDERABLES Fin al Result Performing Organization Address [facility] Co de Phone Number LABORATORY SERVICES [address] [place] [address] * EKG 12-LEAD (02/15/2024 16:26 EST) 02/15/2024 16:2 6 EST Narrative [facility] - 02/16/2024 9:57 EST ? [facility] ? Test Date: ?2024-02-15 Pat Name: ? BI SUE ? Department: ? Room: ? 305 Gender: ? Male ? Rn Otolaryngology: ?? CS : ?1940 ? Requested By: YURY NAYLOR Order Number: [id number] ? Reading MD: ?? CARLOS ALBERTO REYNOLDS MD ? Measurements Intervals ?[place] ? Rate: ? 110 ?P: ?77 SD: ? 138 ?QRS: ?-19 QRSD: ? 120 [...] Note Carlos Alberto Reynolds MD - 02/16/2024 [facility] [place] Date: 2024-02-15 Pat Name: BI SUE Department: Room: [facility] Gender: Male Rn Otolaryngology: : 1940 Requested By: YURY NAYLOR Order Number: [id number] Reading MD: CARLOS ALBERTO REYNOLDS MD Measurements Intervals [place] Rate: 110 P: 77 SD: 138 QRS: -19 QRSD: 120 T: 84 QT: 362 QTc: 489 Interpretive Statements Sinus tachycardia Low voltage QRS Right bundle branch block T wave abnormality, consider ischemia No previous ECG available for comparison I reviewed the tracing and have either agreed or edited the findings inthis report. Electronically Signed On 02-16-2024 09:57:05 EST by CARLOS ALBERTO FRANCOIS. Dominique Goldstein MD CARDIAC ECG ORDERABLES Final Res ult Performing Organization Address City/[facility]/ZIP Co de Phone Number [facility] * HOLD LAVENDER TOP (02/15/2024 15:19 EST) Hold Hold 02/15/2024 16:31 EST LAB[facility] Blood VENOUS BLOOD / Unknown Venipuncture / Unknown 02/15/2024 15:19 EST 02/15/2024 15:25 EST Krystian Anne MD LAB INFO SERVICE AND SUPPORT & PHONE RESULT Final Result Performing Organization Address [facility]/ZIP Co de Phone Number LABORATORY SERVICES [address] [place] [address] * HOLD GREEN TOP (02/15/2024 15:19 EST) Hold Hold 02/15/2024 16:31 [facility] Blood VENOUS BLOOD / Unknown Venipuncture / Unknown 02/15/2024 15:19 EST 02/15/2024 15:25 EST us Krystian Anne MD LAB INFO SERVICE AND SUPPORT & PHONE RESULT Final Result [facility] [address] [place] [address] * (ABNORMAL) COMPLETE BLOOD COUNT AND DIFFERENTIAL (02/15/2024 15:19 EST) WBC 21.84(H) 4.00 - 10.40 K/cmm 02/15/2024 16:30 [facility] RBC 4.54 4.36 - 5.78 M/cmm 02/15/2024 16:30 [facility] Hemoglobin 14.5 13.8 - 17.3 g/dL 02/15/2024 16:30 [facility] HCT 44.8 39.5 - 50.2 % 02/15/2024 16:30 [facility] MCV 99(H) 81 - 95 fL 02/15/2024 16:30 [facility] MCH 31.9 27.6 - 33.0 pg 02/15/2024 16:30 [facility] MCHC 32.4(L) 32.8 - 36.4 g/dL 02/15/2024 16:30 [facility] RDW-CV 14.9(H) <14.2 % 02/15/2024 16:30 [facility] RDW-SD 54.5(H) <46.0 fl 02/15/2024 16:30 [facility] PLT 151 141 - 377 K/cmm 02/15/2024 16:30 [facility] MPV 11.6 9.5 - 12.7 fL 02/15/2024 16:30 [facility] % Neutrophils 89.3 Not Indicated % 02/15/2024 16:30 [facility] % Lymphocytes 3.1 Not Indicated % 02/15/2024 16:30 [facility] % Monocytes 6.6 Not Indicated % 02/15/2024 16:30 [facility] % Eosinophils 0.0 Not Indicated % 02/15/2024 16:30 [facility] % Basophils 0.2 Not Indicated % 02/15/2024 16:30 [facility] % Immature Grans 0.8 <0.9 % 02/15/2024 16:30 [facility] Absolute Neutrophils 19.49(H) 2.20 - 8.85 K/cmm 02/15/2024 16:30 [facility] Absolute Lymphocytes 0.67(L) 1.09 - 3.30 K/cmm 02/15/2024 16:30 [facility] Absolute Monocytes 1.45(H) 0.10 - 0.80 K/cmm 02/15/2024 16:30 [facility] Absolute Eosinophils 0.00(L) 0.03 - 0.61 K/cmm 02/15/2024 16:30 [facility] ABS Basophils 0.05 0.01 - 0.11 K/cmm 02/15/2024 16:30 [facility] Absolute Immature Grans 0.18(H) 0.00 - 0.06 K/cmm 02/15/2024 16:30 [facility] Type of Differential: Auto 02/15/2024 16:30 [facility] Blood VENOUS BLOOD / Unknown Venipuncture / Unknown 02/15/2024 15:19 EST 02/15/2024 15:25 EST us Dominique Goldstein MD PACKAGES & DNA PROBE ORDERABLES Final Result [facility] [address] [place] [address] * SARS COV2, FLU A/B, RSV DETECT BY PCR (02/15/2024 15:13 EST) FLU A RNA Result (FLARES) Negative Negative 02/15/2024 16:22 [facility] FLU B RNA Result (FLBRES) Negative Negative 02/15/2024 16:22 [facility] RSV RNA Result (RSVRES) Negative Negative 02/15/2024 16:22 [facility] COVID-19 rt-PCR Result Negative Negative 02/15/2024 16:22 [facility] Comment: The 2019 novel coronavirus (SARS-CoV-2) target nucleic acids are not detected. Performed on the [employer] Gene[employer]pert Instrument Swab NASOPHARYNGEAL STRUCTURE / Unknown Swab / Unknown 02/15/2024 15:13 EST 02/15/2024 15:18 EST us Krystian Anne MD MICROBIOLOGY - GENERAL ORDERA BLES Final Result [facility] [address] [place] [address] * CT OUTSIDE IMAGES ABDOMEN PELVIS (02/15/2024 [...] nal Result from Last 3 Months Insurance MEDICARE MEDICARE [place] [address] [place] [address] [facility] [place] [address] [place] [address] [place] [address] [place] [address] Advance Directives For more information, please contact: [phone] * Limitation of Treatment (Latest Code Status [...] Made the Decision? 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
--- OUTSIDE RECORDS SUMMARY | 2024-04-01 17:53 | XMS_ITS | Encounter Summary ---
Author Organization [facility] Address [address] [place] [address] Care Team Providers Care Pulp Refiner Operator Name Role Phone Suzie Villagomez MD Primary Care Provider [phone] Reason for Referral * Consult (Routine/Next Available) - Receiving Office to Obtain Authorization Specialty Diagnoses / Procedures Referred By Jean Carlos t Referred To Contact Orthopedic Surgery Diagnoses Closed right hip fracture, initial encounter ([facility]) Farnaz Sanchez NP [address] [place] [phone] Phone: tel: fax: Ko Marquis PA-C [address] [place] [phone] Phone: tel: fax: Referral ID Status Reason Start Date Expiration Date Visits Requested Visits Authorized [id number] Receiving Office to Obtain Authorization Post Op [...] type, initial encounter Farnaz Sanchez NP [address] [place] [phone] Phone: tel: fax: [facility] Endocrinology - [address] [address] Phone: tel: fax: Referral ID Status Reason Start Date Expiration Date Visits Requested Visits Authorized [id number] Receiving Office to Obtain Authorization Specialty Services [...] To Contact Diagnoses Acute hypoxic respiratory failure ([facility]) Hip fracture Referral ID Status Reason Start Date Expiration Date Visits Re quested Visits Authorized [id number] 1 1 Encounter Details Date Type Department Care Team (Late st Contact Info) Description 02/16/2024 15:41 EST - 02/29/2024 12:20 EST Hospital Encounter [facility] General Medicine Unit [address] [place], [place] [id number] Ritesh Cardenas MD [address] [place] [address], [facility] [address] [place] [phone] Murtaza Adams MD [address] [place] [phone] Marcos Quintero MD [address] [place] [phone] Cuco Vazquez MD [address] [place] [phone] Jone Em MD [address] [phone] Pushpa Welch MD [address] [phone] Closed right hip fracture, initial encounter ([facility]) (Primary Dx); Acute hypoxic respiratory failure ([facility]) [J96.01]; Osteoporosis with current pathological fracture, unspecified osteoporosis type, initial encounter; Chronic obstructive pulmonary disease, unspecified COPD type ([facility]) [J44.9]; Pulmonary hypertension ([facility]) [I27.20]; Atrial fibrillation, unspecified type ([facility]) [I48.91]; Urinary retention [R33.9]; Hypertension, unspecified type [I10]; Thrush [B37.0]; PFO (patent foramen ovale); Pulmonary emphysema, unspecified emphysema type ([facility]) Discharge Disposition: Nursing Facility (Skilled) Social History Tobacco Use Types Packs/Day Years Used Date Smoking Tobacco: Former Cigarettes Alcohol Use Standard Drinks/Week Comments Never 0 (1 standard drink = 0.6 oz pur e alcohol) [facility] Utilities Answer Date Recorded In the past 12 months has [employer], gas, oil, or water [employer] threatened to shut off services in your [...] were you homeless or living in a correction (including now)? No 02/16/2024 [facility] - Inadequate Housing Answer Date Re corded What is your living situation today? I have a [facility] to live 02/20/2024 Think about the [...] Admit Date: 02/16/2024 Discharge Date: 02/29/24 Disposition: nursing home facility/Subacute rehab Reason for Admission: hip fracture Principal/Final Diagnosis: Acute hypoxic respiratory failure ([facility]) Active Hospital Problems Diagnosis Date Noted *Acute hypoxic respiratory failure ([facility]) 02/16/2024 PFO (patent foramen ovale) 02/27/2024 Atrial fibrillation ([facility]) 02/26/2024 Urinary retention 02/26/2024 Hypertension 02/26/2024 Thrush 02/26/2024 Osteoporosis with current pathological fracture 02/22/2024 Pulmonary hypertension ([facility]) 02/16/2024 Chronic obstructive pulmonary disease ([facility]) 02/16/2024 Closed right hip fracture, initial encounter ([facility]) 02/15/2024 Resolved Hospital Problems No resolved problems to display. Condition at Discharge: Improved Clinical Issues Needing Follow-up: -Needs osteoporosis treatment post DC, ortho placed referral to the Fracture Liaison Service with [facility] Endocrinology - 2 weeks postoperative wound check to be completed by rehabilitation or orthopedic MD/CHAVA. - 6 weeks postoperative follow-up with orthopedic trauma clinic for repeat clinical and radiographic evaluation. (Referral placed for [facility] follow up - could explore placing referral for ortho closerto home) - Referral to outpatient pulmonology/cardiology in [facility] (order not placed) - Discharging with [...] GERD, and HTN, who was transferred from [facility] to [facility] and then [facility] for surgical management of a right [...] which may represent aspiration pneumonitis. Smallright effusion. [id number] XR CHEST PORTABLE 1 VIEW Result Date: 02/18/2024 Bilateral small pleural effusions and bibasilar opacities compatible with atelectasis. [id number] XR HIP RIGHT 1 VIEW Result Date: 02/17/2024 FINDINGS/IMPRESSION: 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 No periprosthetic fracture is seen. No acute left hip abnormality is seen. Atherosclerotic calcifications arepresent bilaterally. [id number] XR HIP LEFT 1 VIEW Result Date: 02/17/2024 FINDINGS/IMPRESSION: 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 No periprosthetic fracture is seen. No acute left hip abnormality is seen. Atherosclerotic calcifications arepresent bilaterally. [id number] CT ANGIO CHEST PE PROTOCOL Result Date: [...] above interpretation and agree with the findings. [id number] XR HIP RIGHT 1 VIEW Result Date: 02/16/2024 Findings/impression: Redemonstrated right femoral neck fracture, not significantly changed. No left-sided hip fracture or dislocation. Mild degenerative changes of the left hip. The soft tissues are unremarkable. [id number] XR HIP LEFT 2-3 VIEWS OPTIONAL PELVIS Result Date: 02/16/2024 Findings/impression: Redemonstrated right femoral neck fracture, not significantly changed. No left-sided hip fracture or dislocation. Mild degenerative changes of the left hip. The soft tissues are unremarkable. [id number] XR CHEST PORTABLE 1 VIEW Result Date: 02/16/2024 Small bilateral pleural effusions. Slight interval increase in patchy airspace opacities at both lung bases and in the suprahilar right lung. [id number] No Known Allergies There is no immunization history for the selected administration types on file for this patient. Results Pending at Discharge Test results still pending from this admission None Follow-up appointments and procedures Amb Consult/Follow Up Orthopedics - [facility] Scheduling Comments (optional - describe specific [...] DISCHARGE NOTE DISCHARGE DATE/TIME: 02/29/24 11:15-12:00 DESTINATION: [facility] [address] [place] [address] (If discharging to [facility]) COVID swab ordered and completed: na TRANSPORTATION: [facility] ACCEPTING MD AND NUMBER: ira RN REPORT/UNIT: [phone] SURGICAL INSTRUMENTS INSPECTOR/CHARGE/MD NOTIFIED (Y/N): Y FORMS: (Acute to acute, COLST, MOLST, KEON, Screen, PASRR, Ambulance): COLST,PASRR, Ambulance form, LENA IM SIGNED (Y/NA): na HOME HEALTH: [facility] - services on hold DME: [employer] PHARMACY/PRESCRIPTIONS: facility MEDS TO BEDS UTILIZED : NO Patient and/or family who participated in discharge plan: patient and granddaughter Dang TAMMY Navarrete Marine Superintendent II Epic chat preferred. 02/26/2024 11:57 * [...] needs and plan for his transition to [facility]. Called and updated granddaughter Dang. [...] hypertension who transferred to our institution from [facility] with a right femoral neck fracture requiring [...] oxygenation for movement to get him to [facility]. Case discussed today with RT, [...] this today so able to go to [facility] with this tentatively tomorrow - [...] referral to the Fracture Liaison Service with [facility] Endocrinology - Vit D 2000U/d, tylenol and dilaudid for pain Thrush - nystatin swish and spit Urinary retention CHRISTIANO - resolved to baseline - failed a few lewis trials, tamsulosin started 02/25 and can retrial at [facility]/urology o/p Afib with RVR - new this hospitalization, not on AC outpatient - confirmed with 02/25 his med list - apixaban 2.5 BID started this hospital stay. Would benefit from o/p holter to assess frequency - ADMINISTRATIVE ASSISTANT FRONT DESK metoprolol, received amio in the ICU Chronic comorbidities HTN - home metoprolol, amlodpine 10mg on hold GERD - home protonix HLD/CAD - home ASA Incidental findings Spiculated lung nodule seen on CT chest - needs repeat imaging 1 month post treatment outpatient toensure resolution VTE Prophylaxis apixaban Discharge Plan [facility] - if stable respiratory status [...] decreased Response: Mild response, increase subjective per COLLABORATIVE TEACHER Pulse: <100 Resp Rate: 18-25 SOB: With [...] hypertension who transferred to our institution from [facility] with a right femoral neck fracture requiring [...] referral to the Fracture Liaison Service with [facility] Endocrinology - Vit D 2000U/d, tylenol and dilaudid for pain Thrush - nystatin swish and spit Urinary retention CHRISTIANO - resolved to baseline - failed a few lewis trials, tamsulosin started 02/25 and can retrial 02/27 vs at [facility]/urology o/p Afib with RVR - new this hospitalization, not on AC outpatient - confirmed with 02/25 his med list - apixaban 2.5 BID started this hospital stay. Would benefit from o/p holter to assess frequency - ADMINISTRATIVE ASSISTANT FRONT DESK metoprolol, received amio in the ICU Chronic comorbidities HTN - home metoprolol, amlodpine 10mg on hold GERD - home protonix HLD/CAD - home ASA Incidental findings Spiculated lung nodule seen on CT chest - needs repeat imaging 1 month post treatment outpatient toensure resolution VTE Prophylaxis apixaban Discharge Plan [facility] - if stable respiratory status [...] decreased Response: Mild response, increase subjective per COLLABORATIVE TEACHER Pulse: <100 Resp Rate: <18 SOB: With [...] Julianne Pascal - 02/27/2024 0943 EST The Department of Case Management and Social Work [...] on oximizer Plan [facility] Transfer by ambulance on Monday was postponed due toconcern for stability. Plan is to switch patient to oximizer, observe for a day, [facility] bed until . [employer] TAMMY Navarrete Marine Superintendent II Epic chat preferred. 02/27/2024 9:43 02/27/24 [...] - but states home health would. Called [facility] who confirmed the following meds: Multivitamin [...] hypertension who transferred to our institution from [facility] with a right femoral neck fracture requiring [...] referral to the Fracture Liaison Service with [facility] Endocrinology - Vit D 2000U/d, tylenol and dilaudid for pain Thrush - nystatin swish and spit Urinary retention CHRISTIANO - resolved to baseline - failed a few lewis trials, tamsulosin started 02/25 and can retrial 02/27 vs at [facility]/urology o/p Afib with RVR - new this hospitalization, not on AC outpatient - confirmed with 02/25 his med list - apixaban 2.5 BID started this hospital stay. Would benefit from o/p holter to assess frequency - ADMINISTRATIVE ASSISTANT FRONT DESK metoprolol, received amio in the ICU Chronic comorbidities HTN - home metoprolol, amlodpine 10mg on hold GERD - home protonix HLD/CAD - home ASA Incidental findings Spiculated lung nodule seen on CT chest - needs repeat imaging 1 month post treatment outpatient toensure resolution VTE Prophylaxis apixaban Discharge Plan [facility] - if stable respiratory status [...] Progress Note Patient scheduled to transfer to [facility] H&R postponed by provider as precaution to [id number] stability. [facility]. Confirmed that if he is confirmed to be stable, they can take him tomorrow. CM cancelled ambulance ride and will reschedule in the morning as appropriate. CM notified granddaughter Dang. CM will continue to follow and coordinate safe discharge. TAMMY Navarrete Marine Superintendent II Epic chat preferred. 02/26/2024 12:00 * Laine Coe, PT - 02/26/2024 1130 EST The Rehabilitation Therapy Acute Therapy [facility] ADDENDUM: This addendum is intended as [...] during admission. He has been dc to [facility] 02/28 to further progress functionalindep [...] Completed Today: Physical Therapy Today At: Time: 8798s02 minutes Present for the Therapy Session Comments: [...] During therapy session, After therapy session By: [id number] communication Additional communication about Patient Status and [...] go to rehab closer to family in [place]. Objective Vital Signs Temp: [36.7 ??C (98.1 [...] effusions and bibasilar opacities compatible with atelectasis. [id number] XR HIP RIGHT 1 VIEW Result Date: 02/17/2024 FINDINGS/IMPRESSION: 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 No periprosthetic fracture is seen. No acute left hip abnormality is seen. Atherosclerotic calcifications arepresent bilaterally. [id number] XR HIP LEFT 1 VIEW Result Date: 02/17/2024 FINDINGS/IMPRESSION: 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 No periprosthetic fracture is seen. No acute left hip abnormality is seen. Atherosclerotic calcifications arepresent bilaterally. [id number] CT ANGIO CHEST PE PROTOCOL Result Date: [...] above interpretation and agree with the findings. [id number] XR HIP RIGHT 1 VIEW Result Date: 02/16/2024 Findings/impression: Redemonstrated right femoral neck fracture, not significantly changed. No left-sided hip fracture or dislocation. Mild degenerative changes of the left hip. The soft tissues are unremarkable. [id number] XR HIP LEFT 2-3 VIEWS OPTIONAL PELVIS Result Date: 02/16/2024 Findings/impression: Redemonstrated right femoral neck fracture, not significantly changed. No left-sided hip fracture or dislocation. Mild degenerative changes of the left hip. The soft tissues are unremarkable. [id number] XR CHEST PORTABLE 1 VIEW Result Date: 02/16/2024 Small bilateral pleural effusions. Slight interval increase in patchy airspace opacities at both lung bases and in the suprahilar right lung. [id number] Assessment/Plan Assessment Noe Sue is a 83 y.o. male with a PMHx of COPD (3-5L home oxygen), possible AF (he denies ever being told he has AF), GERD, and HTN, who was transferred from [facility] to [facility] and then [facility] for surgical management of a right [...] Symbicort q12h (LABA/ICS), spiriva daily to replace ADMINISTRATIVE ASSISTANT FRONT DESK LAMA - Hold ADMINISTRATIVE ASSISTANT FRONT DESK Anoro Ellipta (LAMA/LABA) - Wean off of supplemental O2 as tolerated - Maintain SpO2 88-92% - RT following, airway clearance - On discharge would need good pulmonology FU, could benefit from pulmonary rehab. Severe pulmonary HTN with RV failure Suspect group 3 pulm HTN (2/2 lung disease) S/p lasix 160 mg and 5 mg metolazone 02/16/24 at [facility] prior to transfer. Multiple doses of IV lasix given, titrated to kidney function and respiratory function. - Oral diuresis with lasix 20mg. CHRISTIANO resolved. Patient's creatinine on admission 2.54, baseline Cr about 1 per note from [facility]. - Daily BMP - Strict I/Os Urinary Retention Denies retention at home but has thus far failed void trial 02/18, 02/22 - lewis was replaced 02/24, likely can do void trial in 1-2 days to see if retention is improved bytamsulosin - tamsulosin 0.4 at bedtime. Afib with RVR Patient denies h/o AF or taking eliquis, but report from [facility] said his last dose of eliquis was 02/13). EDGAR-VASc score of 4 with 4.8% stroke risk. - Started Eliquis 2.5mg BID (dose reduced given pt's advanced age, serum Cr., and weight) - Dc'd Telemetry monitoring d/t stable rate control over the past several days, low threshold to restart if rates sustained >110. - Continue ADMINISTRATIVE ASSISTANT FRONT DESK metoprolol XL 25 mg daily Right femoral [...] referral to the Fracture Liaison Service with [facility] Endocrinology - Vit D 2000U/d - PT recs TANI Chronic: HTN - Cont ADMINISTRATIVE ASSISTANT FRONT DESK metoprolol XL 25 mg daily - Holding ADMINISTRATIVE ASSISTANT FRONT DESK amlodipine 10 mg daily GERD - ADMINISTRATIVE ASSISTANT FRONT DESK pantoprazole 40/d Constipation, resolved VTE Prophylaxis: apixaban [...] 16:01 * Israel Herrmann, RT - 02/24/2024 1409 EST Respiratory Consult/Progress Note Indications for Respiratory [...] decreased Response: Mild response, increase subjective per COLLABORATIVE TEACHER Pulse: <100 Resp Rate: 18-25 SOB: With [...] go to rehab closer to family in [place]. Objective Vital Signs Temp: [37 ??C (98.6 [...] effusions and bibasilar opacities compatible with atelectasis. [id number] XR HIP RIGHT 1 VIEW Result Date: 02/17/2024 FINDINGS/IMPRESSION: 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 No periprosthetic fracture is seen. No acute left hip abnormality is seen. Atherosclerotic calcifications arepresent bilaterally. [id number] XR HIP LEFT 1 VIEW Result Date: 02/17/2024 FINDINGS/IMPRESSION: 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 No periprosthetic fracture is seen. No acute left hip abnormality is seen. Atherosclerotic calcifications arepresent bilaterally. [id number] CT ANGIO CHEST PE PROTOCOL Result Date: [...] above interpretation and agree with the findings. [id number] XR HIP RIGHT 1 VIEW Result Date: 02/16/2024 Findings/impression: Redemonstrated right femoral neck fracture, not significantly changed. No left-sided hip fracture or dislocation. Mild degenerative changes of the left hip. The soft tissues are unremarkable. [id number] XR HIP LEFT 2-3 VIEWS OPTIONAL PELVIS Result Date: 02/16/2024 Findings/impression: Redemonstrated right femoral neck fracture, not significantly changed. No left-sided hip fracture or dislocation. Mild degenerative changes of the left hip. The soft tissues are unremarkable. [id number] XR CHEST PORTABLE 1 VIEW Result Date: 02/16/2024 Small bilateral pleural effusions. Slight interval increase in patchy airspace opacities at both lung bases and in the suprahilar right lung. [id number] Assessment/Plan Assessment Noe Sue is a 83 y.o. male with a PMHx of COPD (3-5L home oxygen), possible AF (he denies ever being told he has AF), GERD, and HTN, who was transferred from [facility] to [facility] and then [facility] for surgical management of a right [...] Symbicort q12h (LABA/ICS), spiriva daily to replace ADMINISTRATIVE ASSISTANT FRONT DESK LAMA - Hold ADMINISTRATIVE ASSISTANT FRONT DESK Anoro Ellipta (LAMA/LABA) - Wean off of supplemental O2 as tolerated - Maintain SpO2 88-92% - RT following, airway clearance - On discharge would need good pulmonology FU, could benefit from pulmonary rehab. Severe pulmonary HTN with RV failure Suspect group 3 pulm HTN (2/2 lung disease) S/p lasix 160 mg and 5 mg metolazone 02/16/24 at [facility] prior to transfer. Multiple doses of IV lasix given, titrated to kidney function and respiratory function. - Oral diuresis with lasix 20mg. CHRISTIANO resolved. Patient's creatinine on admission 2.54, baseline Cr about 1 per note from [facility]. - Daily BMP - Strict I/Os Urinary Retention Denies retention at home but has thus far failed void trial 02/18 - remove lewis and repeat void trial today 02/22 Afib with RVR Patient denies h/o AF or taking eliquis, but report from [facility] said his last dose of eliquis was 02/13). EDGAR-VASc score of 4 with 4.8% stroke risk. - Started Eliquis 2.5mg BID (dose reduced given pt's advanced age, serum Cr., and weight) - Dc'd Telemetry monitoring d/t stable rate control over the past several days, low threshold to restart if rates sustained >110. - Continue ADMINISTRATIVE ASSISTANT FRONT DESK metoprolol XL 25 mg daily Right femoral [...] referral to the Fracture Liaison Service with [facility] Endocrinology - Lewis catheter placed due to urinary retention, removed 02/22 - Vit D 2000U/d - PT recs TANI Chronic: HTN - Cont ADMINISTRATIVE ASSISTANT FRONT DESK metoprolol XL 25 mg daily - Holding ADMINISTRATIVE ASSISTANT FRONT DESK amlodipine 10 mg daily GERD - ADMINISTRATIVE ASSISTANT FRONT DESK pantoprazole 40/d Constipation - Miralax BID, senna [...] medical complexity Plan: DVT/VTE Chemoprophylaxis: Inpatient plan: ADMINISTRATIVE ASSISTANT FRONT DESK Eliquis Discharge plan: Same Wound Care: Inpatient [...] and to the Fracture Liaison Service at [facility] endocrinology placed Pain management: Inpatient plan: Multimodal Discharge plan: Multimodal Antibiotics and other medications: Inpatient plan: Perioperative Ancef complete Discharge plan: None Diet: DIET REGULAR PT/OT: TANI Dispo: Pending TANI acceptance Orthopedics will continue to follow peripherally Russell Rodriguez MD 02/23/24 20:17 Orthopaedic Surgery, PGY-2 Pager [phone] Cosigned by Fred Fernández MD at 02/24/2024 [...] decreased Response: Mild response, increase subjective per COLLABORATIVE TEACHER Pulse: <100 Resp Rate: 18-25 SOB: With [...] go to rehab closer to family in [place]. Objective Vital Signs Temp: [35.8 ??C (96.5 [...] effusions and bibasilar opacities compatible with atelectasis. [id number] XR HIP RIGHT 1 VIEW Result Date: 02/17/2024 FINDINGS/IMPRESSION: 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 No periprosthetic fracture is seen. No acute left hip abnormality is seen. Atherosclerotic calcifications arepresent bilaterally. [id number] XR HIP LEFT 1 VIEW Result Date: 02/17/2024 FINDINGS/IMPRESSION: 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 No periprosthetic fracture is seen. No acute left hip abnormality is seen. Atherosclerotic calcifications arepresent bilaterally. [id number] CT ANGIO CHEST PE PROTOCOL Result Date: [...] above interpretation and agree with the findings. [id number] XR HIP RIGHT 1 VIEW Result Date: 02/16/2024 Findings/impression: Redemonstrated right femoral neck fracture, not significantly changed. No left-sided hip fracture or dislocation. Mild degenerative changes of the left hip. The soft tissues are unremarkable. [id number] XR HIP LEFT 2-3 VIEWS OPTIONAL PELVIS Result Date: 02/16/2024 Findings/impression: Redemonstrated right femoral neck fracture, not significantly changed. No left-sided hip fracture or dislocation. Mild degenerative changes of the left hip. The soft tissues are unremarkable. [id number] XR CHEST PORTABLE 1 VIEW Result Date: 02/16/2024 Small bilateral pleural effusions. Slight interval increase in patchy airspace opacities at both lung bases and in the suprahilar right lung. [id number] Assessment/Plan Assessment Noe Sue is a 83 y.o. male with a PMHx of COPD (3-5L home oxygen), possible AF (he denies ever being told he has AF), GERD, and HTN, who was transferred from [facility] to [facility] and then [facility] for surgical management of a right [...] Symbicort q12h (LABA/ICS), spiriva daily to replace ADMINISTRATIVE ASSISTANT FRONT DESK LAMA - Prednisone to 40 mg daily since 02/18 (Pt has received 2x 40mg 02/14-02/15 and 2x 30 mg prednisone 02/17 -02/18), duration tbd by respiratory status. - Hold ADMINISTRATIVE ASSISTANT FRONT DESK Anoro Ellipta (LAMA/LABA) - Wean off of supplemental O2 as tolerated - Maintain SpO2 88-92% - RT following, airway clearance - On discharge would need good pulmonology FU, could benefit from pulmonary rehab. Severe pulmonary HTN with RV failure Suspect group 3 pulm HTN (2/2 lung disease) S/p lasix 160 mg and 5 mg metolazone 02/16/24 at [facility] prior to transfer. Multiple doses of IV lasix given, titrated to kidney function and respiratory function. - Oral diuresis with lasix 20mg, will consider as longer term maintenance dosing. CHRISTIANO resolved. Patient's creatinine on admission 2.54, baseline Cr about 1 per note from [facility]. - Daily BMP - Strict I/Os Urinary Retention Denies retention at home but has thus far failed void trial 02/18 - remove lewis and repeat void trial today 02/22 Afib with RVR Patient denies h/o AF or taking eliquis, but report from [facility] said his last dose of eliquis was 02/13). EDGAR-VASc score of 4 with 4.8% stroke risk. - Started Eliquis 2.5mg BID (dose reduced given pt's advanced age, serum Cr., and weight) - Dc'd Telemetry monitoring d/t stable rate control over the past several days, low threshold to restart if rates sustained >110. - Continue ADMINISTRATIVE ASSISTANT FRONT DESK metoprolol XL 25 mg daily Right femoral [...] referral to the Fracture Liaison Service with [facility] Endocrinology - Lewis catheter placed due to urinary retention - Vit D 2000U/d - PT recs TANI Chronic: HTN - Cont ADMINISTRATIVE ASSISTANT FRONT DESK metoprolol XL 25 mg daily - Holding ADMINISTRATIVE ASSISTANT FRONT DESK amlodipine 10 mg daily GERD - ADMINISTRATIVE ASSISTANT FRONT DESK pantoprazole 40/d Constipation - Miralax BID, senna 2 tabs at night VTE Prophylaxis: apixaban 2.5mg BID Code status: Limitation of Treatment DNR Do not intubate (DNI) Disposition: awaiting TANI May Mauricio MD Internal Medicine, PGY-2 Epic chat Pager [phone] Attending Attestation I interviewed and examined the patient. I have personally reviewed interval events, laboratory data, and imaging. I discussed the case with the inpatient resident team. I agree with findings and planof care as documented by the resident (or have edited in blue). Cuco Vazquez MD Internal Medicine Hospitalist 02/23/24 21:26 * Julianne Pascal - 02/23/2024 1304 EST The Department of Case Management and Social Work Case Management Progress Note Patient Name Level of Care and Accommodation Code: Patient Class: Medically Ready: Y/N Noe Sue Acute General Inpatient y Primary Dx: Decisional Capacity: Y/N Primary Support/ CareGiver: Advance Directive Acute hypoxic respiratory failure ([facility]) taylor Godinez Advance Directives (For Healthcare) Healthcare [...] been deemed appropriate for placement at a detention facility (SNF). Listed patient at the following facilities: [facility] Explained to patient and/or family that [...] patient's family per patient's request Addendum: [facility] - concern for 02 stability - will look again on Monday [facility] - may have bed available on Monday - E-Signature TAMMY Navarrete Marine Superintendent II Epic chat preferred. 02/23/2024 13:08 02/23/24 [...] and to the Fracture Liaison Service at [facility] endocrinology placed Pain management: Inpatient plan: Multimodal Discharge plan: Multimodal Antibiotics and other medications: Inpatient plan: Perioperative Ancef complete Discharge plan: None Diet: DIET REGULAR PT/OT: TANI Dispo: Likely DC today Russell Rodriguez MD 02/22/24 21:31 Orthopaedic Surgery, PGY-2 Pager [phone] Cosigned by Nicholas Poole MD MPH at [...] decreased Response: Mild response, increase subjective per COLLABORATIVE TEACHER Pulse: <100 Resp Rate: 18-25 SOB: With [...] Gunn, PT - 02/22/2024 1632 EST The Rehabilitation Therapy Acute Therapy [facility] Physical Therapy Encounter Note Date of Service: 02/22/2024 Precautions: posterior R THR precautions, WBAT RLE SUBJECTIVE: Subjective Statements Comments: patient quiet throughout session. Increased work of breathing and placed on ventimask during session. Pateint agreeable to PT assisting with back to bed. OBJECTIVE: Interventions Completed Today: Physical Therapy Today At: Time: 5214-8079 Total Treatment Time (minutes): 25 Present for [...] During therapy session, After therapy session By: [id number] communication Additional communication about Patient Status and [...] Danny Gunn PT 02/22/2024 16:32 * Cuco Vazquez MD [...] effusions and bibasilar opacities compatible with atelectasis. [id number] XR HIP RIGHT 1 VIEW Result Date: 02/17/2024 FINDINGS/IMPRESSION: 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 No periprosthetic fracture is seen. No acute left hip abnormality is seen. Atherosclerotic calcifications arepresent bilaterally. [id number] XR HIP LEFT 1 VIEW Result Date: 02/17/2024 FINDINGS/IMPRESSION: 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 No periprosthetic fracture is seen. No acute left hip abnormality is seen. Atherosclerotic calcifications arepresent bilaterally. [id number] CT ANGIO CHEST PE PROTOCOL Result Date: [...] above interpretation and agree with the findings. [id number] XR HIP RIGHT 1 VIEW Result Date: 02/16/2024 Findings/impression: Redemonstrated right femoral neck fracture, not significantly changed. No left-sided hip fracture or dislocation. Mild degenerative changes of the left hip. The soft tissues are unremarkable. [id number] XR HIP LEFT 2-3 VIEWS OPTIONAL PELVIS Result Date: 02/16/2024 Findings/impression: Redemonstrated right femoral neck fracture, not significantly changed. No left-sided hip fracture or dislocation. Mild degenerative changes of the left hip. The soft tissues are unremarkable. [id number] XR CHEST PORTABLE 1 VIEW Result Date: 02/16/2024 Small bilateral pleural effusions. Slight interval increase in patchy airspace opacities at both lung bases and in the suprahilar right lung. [id number] Assessment/Plan Assessment Noe Sue is a 83 y.o. male with a PMHx of COPD (3-5L home oxygen), possible AF (he denies ever being told he has AF), GERD, and HTN, who was transferred from [facility] to [facility] and then [facility] for surgical management of a right [...] Symbicort q12h (LABA/ICS), spiriva daily to replace ADMINISTRATIVE ASSISTANT FRONT DESK LAMA - Prednisone to 40 mg daily since 02/18 (Pt has received 2x 40mg 02/14-02/15 and 2x 30 mg prednisone 02/17 -02/18), duration tbd by respiratory status. - Hold ADMINISTRATIVE ASSISTANT FRONT DESK Anoro Ellipta (LAMA/LABA) - Wean off of supplemental O2 as tolerated - Maintain SpO2 88-92% - RT following, airway clearance - On discharge would need good pulmonology FU, could benefit from pulmonary rehab. Severe pulmonary HTN with RV failure Suspect group 3 pulm HTN (2/2 lung disease) S/p lasix 160 mg and 5 mg metolazone 02/16/24 at [facility] prior to transfer. Multiple doses of IV lasix given, titrated to kidney function and respiratory function. - Oral diuresis with lasix 20mg, will consider as longer term maintenance dosing. CHRISTIANO Improving. Patient's creatinine on admission 2.54, baseline Cr about 1 per note from [facility]. - Daily BMP - Strict I/Os Afib with RVR Patient denies h/o AF or taking eliquis, but report from [facility] said his last dose of eliquis was 02/13). EDGAR-VASc score of 4 with 4.8% stroke risk. - Started Eliquis 2.5mg BID (dose reduced given pt's advanced age, serum Cr., and weight) - Dc'd Telemetry monitoring d/t stable rate control over the past several days, low threshold to restart if rates sustained >110. - Continue ADMINISTRATIVE ASSISTANT FRONT DESK metoprolol XL 25 mg daily Right femoral [...] referral to the Fracture Liaison Service with [facility] Endocrinology - Lewis catheter placed due to urinary retention - Vit D 2000U/d Chronic: HTN - Cont ADMINISTRATIVE ASSISTANT FRONT DESK metoprolol XL 25 mg daily - Holding ADMINISTRATIVE ASSISTANT FRONT DESK amlodipine 10 mg daily GERD - ADMINISTRATIVE ASSISTANT FRONT DESK pantoprazole 40/d Constipation - Miralax BID, senna [...] op and to the Fracture Liaison Serviceat [facility] endocrinology placed today. The above was discussed with the primary team. Farnaz Sanchez NP Ortho Trauma Pager [phone] * Russell Rodriguez MD - 02/22/2024 0588 EST Orthopaedic Surgery Progress Note Admit Date: [...] MD 02/21/24 18:56 Orthopaedic Surgery, PGY-2 Pager [phone] Cosigned by Jareth Jim MD at 02/22/2024 [...] a small amount of thick, zheng/white sputum. NtY4ank 90's when patient is resting with dips [...] effusions and bibasilar opacities compatible with atelectasis. [id number] XR HIP RIGHT 1 VIEW Result Date: 02/17/2024 FINDINGS/IMPRESSION: 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 No periprosthetic fracture is seen. No acute left hip abnormality is seen. Atherosclerotic calcifications arepresent bilaterally. [id number] XR HIP LEFT 1 VIEW Result Date: 02/17/2024 FINDINGS/IMPRESSION: 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 No periprosthetic fracture is seen. No acute left hip abnormality is seen. Atherosclerotic calcifications arepresent bilaterally. [id number] CT ANGIO CHEST PE PROTOCOL Result Date: [...] above interpretation and agree with the findings. [id number] XR HIP RIGHT 1 VIEW Result Date: 02/16/2024 Findings/impression: Redemonstrated right femoral neck fracture, not significantly changed. No left-sided hip fracture or dislocation. Mild degenerative changes of the left hip. The soft tissues are unremarkable. [id number] XR HIP LEFT 2-3 VIEWS OPTIONAL PELVIS Result Date: 02/16/2024 Findings/impression: Redemonstrated right femoral neck fracture, not significantly changed. No left-sided hip fracture or dislocation. Mild degenerative changes of the left hip. The soft tissues are unremarkable. [id number] XR CHEST PORTABLE 1 VIEW Result Date: 02/16/2024 Small bilateral pleural effusions. Slight interval increase in patchy airspace opacities at both lung bases and in the suprahilar right lung. [id number] Assessment/Plan Assessment Noe Sue is a 83 y.o. male with a PMHx of COPD (3-5L home oxygen), possible AF (he denies ever being told he has AF), GERD, and HTN, who was transferred from [facility] to [facility] and then [facility] for surgical management of a right [...] Symbicort q12h (LABA/ICS), spiriva daily to replace ADMINISTRATIVE ASSISTANT FRONT DESK LAMA - Prednisone to 40 mg daily since 02/18 (Pt has received 2x 40mg 02/14-02/15 and 2x 30 mg prednisone 02/17 -02/18), duration tbd by respiratory status. - Hold ADMINISTRATIVE ASSISTANT FRONT DESK Anoro Ellipta (LAMA/LABA) - Wean off of supplemental O2 as tolerated - Maintain SpO2 88-92% - RT following, airway clearance - On discharge would need good pulmonology FU, could benefit from pulmonary rehab. Severe pulmonary HTN with RV failure Suspect group 3 pulm HTN (2/2 lung disease) S/p lasix 160 mg and 5 mg metolazone 02/16/24 at [facility] prior to transfer and 100 mg at [facility] with last dose 40 mg yesterday. Patient continue to have a net negative output, and although improved, continue to have respiratory stress, will reevaluate need for additional diuresis based on lab results - Repeat diuresis with Furosemide 40mg IV 02/20 CHRISTIANO Slight increase in Cr after downtrending. Patient's creatinine on admission 2.54, baseline Cr about 1 per note from [facility]. Hard to determine if worsening of CHRISTIANO is driven by hypo- or hypervolemia.Evaluating decision of diuresis daily based on creatinine. - Daily BMP - Strict I/Os Afib with RVR (Patient denies h/o AF or taking eliquis, but report from [facility] said his last dose of eliquis was 02/13). EDGAR-VASc score of 4 with 4.8% stroke risk. - Started Eliquis 2.5mg BID (dose reduced given pt's advanced age, serum Cr., and weight) - Ortho agrees with plan - Telemetry monitoring (multiple Afib episodes) - Continue ADMINISTRATIVE ASSISTANT FRONT DESK metoprolol XL 25 mg daily Right femoral [...] Vit D 1000U/d Chronic: HTN - Cont ADMINISTRATIVE ASSISTANT FRONT DESK metoprolol XL 25 mg daily - Holding ADMINISTRATIVE ASSISTANT FRONT DESK amlodipine 10 mg daily GERD - ADMINISTRATIVE ASSISTANT FRONT DESK pantoprazole 40/d Constipation - Miralax BID, senna [...] MD 02/20/24 12:42 Orthopaedic Surgery, PGY-2 Pager [phone] Cosigned by Nigel Brock MD at 02/21/2024 [...] Type of housing (single family, condo, apartment, detention, single room occupancy, [facility] funded hotel room, group correction) - [facility] [...] No Final Discharge Destination: home with CULTURAL, JAINISM and/or LANGUAGE factors affecting health care/discharge planning: [...] PT/OT, Nurse visit DME Provider: Darrel Pharmacy: [id number] - [place], [place] - [address] AT [facility] [address] [place] [address] Home Health: [facility] Other: POST HOSPITAL TRANSITION PLAN: Noe Sue is a 83 y.o. male with a PMHx of COPD (3-5L home oxygen), possible AF (he denies ever being told he has AF), GERD, and HTN, who was transferred from [facility] and then [facility] for surgical management of a right femoral neck fracture in the setting of acute on chronic respiratory failure and severe PaHTN. Patient is stable, still requiring significant supplemental oxygen requiring hospitalization. CM met with patient in room to introduce self and CM role. Patient appeared A&Ox3, and noted significant discomfort, [place]. Patient reported that he lives with his partener, Gretchen, who is able toprovide support as needed. He stated that he uses a walker and sometimes a wheelchair at home, and has all the stuff he needs for DME. Patient reported that he was receiving SN and PT services from [facility] prior to hospitalization. CM confirmed with agency that they will need resumption of services noted in d/c summary, and notification of his discharge date when determined. Patient's home 02 supplier is [facility] [place]. His family will be able to provide transportation at discharge. Pt enrolled in M2B. CM will continue to follow and coordinate a safe discharge. TAMMY Navarrete Marine Superintendent II Epic chat preferred. 02/20/2024 12:04 JULIANNE PASCAL 02/20/2024 11:55 * Laine Coe, PT - 02/20/2024 1125 EST The Rehabilitation Therapy Acute Therapy [facility] Physical Therapy Initial Evaluation Note Date [...] 02/16/2024 secondary to Acute hypoxic respiratory failure ([facility]). The patient lives at [address] [place] [address] History of Present Illness / Injury Current Illness / Injury: per MD:Noe Sue is a 83 y.o. male with a PMHx of COPD (3-5L home oxygen), possible AF (he denies ever being told he has AF), GERD, and HTN, who was transferred from [facility] to [facility] and then [facility] for surgical management of a right [...] Nurse When: Prior to therapy session By: [id number] communication Additional communication about Patient Status and [...] by the physical therapist and/or physical therapist product safety technical assistant when medically appropriate Frequency: 1-3 times/week [...] effusions and bibasilar opacities compatible with atelectasis. [id number] XR HIP RIGHT 1 VIEW Result Date: 02/17/2024 FINDINGS/IMPRESSION: 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 No periprosthetic fracture is seen. No acute left hip abnormality is seen. Atherosclerotic calcifications arepresent bilaterally. [id number] XR HIP LEFT 1 VIEW Result Date: 02/17/2024 FINDINGS/IMPRESSION: 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 No periprosthetic fracture is seen. No acute left hip abnormality is seen. Atherosclerotic calcifications arepresent bilaterally. [id number] CT ANGIO CHEST PE PROTOCOL Result Date: [...] above interpretation and agree with the findings. [id number] XR HIP RIGHT 1 VIEW Result Date: 02/16/2024 Findings/impression: Redemonstrated right femoral neck fracture, not significantly changed. No left-sided hip fracture or dislocation. Mild degenerative changes of the left hip. The soft tissues are unremarkable. [id number] XR HIP LEFT 2-3 VIEWS OPTIONAL PELVIS Result Date: 02/16/2024 Findings/impression: Redemonstrated right femoral neck fracture, not significantly changed. No left-sided hip fracture or dislocation. Mild degenerative changes of the left hip. The soft tissues are unremarkable. [id number] XR CHEST PORTABLE 1 VIEW Result Date: 02/16/2024 Small bilateral pleural effusions. Slight interval increase in patchy airspace opacities at both lung bases and in the suprahilar right lung. [id number] Assessment/Plan Assessment Noe Sue is a 83 y.o. male with a PMHx of COPD (3-5L home oxygen), possible AF (he denies ever being told he has AF), GERD, and HTN, who was transferred from [facility] to [facility] and then [facility] for surgical management of a right [...] Symbicort q12h (LABA/ICS), spiriva daily to replace ADMINISTRATIVE ASSISTANT FRONT DESK LAMA - Hold ADMINISTRATIVE ASSISTANT FRONT DESK Anoro Ellipta (LAMA/LABA) - Wean off of [...] mg and 5 mg metolazone 02/16/24 at [facility] prior to transfer and 20 mg at [facility] 02/17. Patient have a net negative output and continue to have respiratory stress, thus might benefit from additional diuresis. - Repeat 40mg IV lasix Afib with RVR (Patient denies h/o AF or taking eliquis, but report from [facility] said his last dose of eliquis was 02/13). EDGAR-VASc score of 4 with 4.8% stroke risk. - Started Eliquis 2.5mg BID (dose reduced given pt's advanced age, serum Cr., and weight) - Ortho agrees with plan - Telemetry monitoring - Continue ADMINISTRATIVE ASSISTANT FRONT DESK metoprolol XL 25 mg daily CHRISTIANO improving, Patient's creatinine on admission 2.54 but has been trending down, baseline Cr about1 per note from [facility] - Daily BMP - Strict I/Os - [...] Vit D 1000U/d Chronic: HTN - Cont ADMINISTRATIVE ASSISTANT FRONT DESK metoprolol XL 25 mg daily - Holding ADMINISTRATIVE ASSISTANT FRONT DESK amlodipine 10 mg daily GERD - ADMINISTRATIVE ASSISTANT FRONT DESK pantoprazole 40/d Constipation - Miralax BID, senna [...] MD 02/19/24 17:42 Orthopaedic Surgery, PGY-2 Pager [phone] Cosigned by Jareth Jim MD at 02/20/2024 [...] reach. YOBANI ALVAREZ RN 02/19/2024 13:10 * Ccuo Vazquez MD - 02/19/2024 0724 EST Medicine Progress Note Service Date: 02/19/2024 [...] Date 02/19/24 0700 - 02/20/24 0659 Shift [id number] 4421-2303 [id number] 24 Hour Total INTAKE P.O. 360 360 [...] effusions and bibasilar opacities compatible with atelectasis. [id number] XR HIP RIGHT 1 VIEW Result Date: 02/17/2024 FINDINGS/IMPRESSION: 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 No periprosthetic fracture is seen. No acute left hip abnormality is seen. Atherosclerotic calcifications arepresent bilaterally. [id number] XR HIP LEFT 1 VIEW Result Date: 02/17/2024 FINDINGS/IMPRESSION: 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 No periprosthetic fracture is seen. No acute left hip abnormality is seen. Atherosclerotic calcifications arepresent bilaterally. [id number] CT ANGIO CHEST PE PROTOCOL Result Date: [...] above interpretation and agree with the findings. [id number] XR HIP RIGHT 1 VIEW Result Date: 02/16/2024 Findings/impression: Redemonstrated right femoral neck fracture, not significantly changed. No left-sided hip fracture or dislocation. Mild degenerative changes of the left hip. The soft tissues are unremarkable. [id number] XR HIP LEFT 2-3 VIEWS OPTIONAL PELVIS Result Date: 02/16/2024 Findings/impression: Redemonstrated right femoral neck fracture, not significantly changed. No left-sided hip fracture or dislocation. Mild degenerative changes of the left hip. The soft tissues are unremarkable. [id number] XR CHEST PORTABLE 1 VIEW Result Date: 02/16/2024 Small bilateral pleural effusions. Slight interval increase in patchy airspace opacities at both lung bases and in the suprahilar right lung. [id number] Assessment/Plan Assessment Noe Sue is a 83 y.o. male with a PMHx of COPD (3-5L home oxygen), possible AF (he denies ever being told he has AF), GERD, and HTN, who was transferred from [facility] to [facility] and then [facility] for surgical management of a right [...] q12h (LABA/ICS), add spiriva daily to replace ADMINISTRATIVE ASSISTANT FRONT DESK LAMA - Hold ADMINISTRATIVE ASSISTANT FRONT DESK Anoro Ellipta (LAMA/LABA) - Wean off of [...] mg and 5 mg metolazone 02/16/24 at [facility] prior to transfer and 20 mg at [facility] 02/17. Patient have a net negative output and continue to have respiratory stress, thus might benefit from additional diuresis. - Furosemide 40 mg ordered nowx1 02/18 Afib with RVR (Patient denies h/o AF or taking eliquis, but report from [facility] said his last dose of eliquis was 02/13). EDGAR-VASc score of 4 with 4.8% stroke risk. - Start Eliquis 2.5mg BID (dose reduced given pt's advanced age, serum Cr., and weight) - Ortho agrees with plan - Telemetry monitoring - Continue ADMINISTRATIVE ASSISTANT FRONT DESK metoprolol XL 25 mg daily CHRISTIANO improving, Patient's creatinine on admission 2.54 but has been trending down, baseline Cr about1 per note from [facility] - Daily BMP - Strict I/Os Right [...] level (cont supplement) Chronic: HTN - Cont ADMINISTRATIVE ASSISTANT FRONT DESK metoprolol XL 25 mg daily - Holding ADMINISTRATIVE ASSISTANT FRONT DESK amlodipine 10 mg daily GERD - ADMINISTRATIVE ASSISTANT FRONT DESK pantoprazole Constipation - Stool softer VTE Prophylaxis: apixaban 2.5mg BID Code status: Limitation of Treatment DNR Do not intubate (DNI) Bessy Dewitt MS3 I reviewed with the medical student the history, exam, and medical decision making documented. I have edited the medical student note as appropriate. Abhi Vega, Neurology PGY-1 Epic Chat*, PAGE [phone] 02/19/24 11:55 Attending Attestation The resident was [...] PGY3 Department of Orthopedics 02/19/24 4:03 Pager [phone] Cosigned by Jareth Jim MD at 02/19/2024 [...] Add LDA for any identified wounds Add [place] image for any suspected PI or non surgical wounds Order wound consult if suspected PI identified If Hernando is < or = to 16, initiate Pressure Injury Prevention Bundle ([id number]). 02/18/2024 14:56 * Seven Escalante, RT - 02/18/2024 1333 EST Images from the original note were not included. Respiratory Progress Note Indications for Respiratory therapy: COPD increased O2 requirement Data Vitals: Heart Rate: 85 BPM, Resp: 18, SpO2: 92 % FIO2/O2 Device: 6 lpm NC, , O2 Device: Nasal cannula, RT Orders: 02/18/24 1700 Airway Clearance Therapy [[id number]] 4 TIMES DAILY Discontinue Reschedule 02/18/24 1333 [...] aspirin, who presents to transfer initially from [facility] after a fall and whom [...] care as documented in the resident's/fellow's note. uAgustine Ceja MD 02/19/2024 21:08 * Pete Lee [...] abnormality is seen. Atherosclerotic calcifications arepresent bilaterally. [id number] XR HIP LEFT 1 VIEW Result Date: 02/17/2024 FINDINGS/IMPRESSION: 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 No periprosthetic fracture is seen. No acute left hip abnormality is seen. Atherosclerotic calcifications arepresent bilaterally. [id number] CT ANGIO CHEST PE PROTOCOL Result Date: [...] above interpretation and agree with the findings. [id number] XR HIP RIGHT 1 VIEW Result Date: 02/16/2024 Findings/impression: Redemonstrated right femoral neck fracture, not significantly changed. No left-sided hip fracture or dislocation. Mild degenerative changes of the left hip. The soft tissues are unremarkable. [id number] XR HIP LEFT 2-3 VIEWS OPTIONAL PELVIS Result Date: 02/16/2024 Findings/impression: Redemonstrated right femoral neck fracture, not significantly changed. No left-sided hip fracture or dislocation. Mild degenerative changes of the left hip. The soft tissues are unremarkable. [id number] XR CHEST PORTABLE 1 VIEW Result Date: 02/16/2024 Small bilateral pleural effusions. Slight interval increase in patchy airspace opacities at both lung bases and in the suprahilar right lung. [id number] Medications: Scheduled: acetaminophen, 1,000 mg, Q6H aspirin [...] GERD, and hypertension, who was transferred from [facility] to [facility] and then [facility] for preoperative optimization for surgicalmanagement of a right femoral neck fracture. Hospital course at [facility] complicated by acute on chronic hypoxic hypercapenic respiratory failure 2/2 COPD exacerbation vs. community acquired pneumonia. Found to have pulmonary HTN and severe RV dilation with evidence of volume overload, s/p IV diuresis. Started on HFNC at [facility] and then transferredto [facility] MICU for monitoring prior to going [...] O2 as tolerated -Maintain SpO2 88-92% -Replace ADMINISTRATIVE ASSISTANT FRONT DESK Anoro Ellipta with Symbicort -Prednisone 40mg daily, decrease to 30mg daily (02/14-02/18) -Duoneb q6h -Ceftriaxone + doxycycline (02/14 - 02/18) -CTA PE 02/15: No evidence of PE, patchy opacity in peripheral RML, lingula, posterior segment or RUL -Bilateral pleural effusions, atherosclerosis of thoracic aorta and coronary artery/aortic valve ID Possible COPDe vs community acquired pneumonia Was started on CAP coverage at [facility]. Legionella, strep pneumo and MRSA negative. Procal [...] mg and 5 mg metolazone 02/16/24 at [facility] prior to transfer - No additional diuresis 02/16 or 02/17 CV risk assessment Surgery is urgent with hip surgery classified as intermediate risk - Orta RCRI: 2-3 points depending on whether you define Tn elevation as a type II MN or myocardial injury (additional points for heart failure, Cr >2 mg/dL). My opinion is that this is simply myocardial injury in the context of RV strain and heart failure but this is impossible to prove. - Overall this indicates elevated risk (/MN/arrest of ~10-15% within a month of surgery) [...] he is taking eliquis, but report from [facility] said his last dose of eliquis was 02/13.S/p dilt drip at [facility]. -Telemetry monitoring -Trend lytes and replete (Mag >2) -Rate control goal < 110 -ADMINISTRATIVE ASSISTANT FRONT DESK ASA 81mg daily -Discontinue amiodarone gtt -Resume ADMINISTRATIVE ASSISTANT FRONT DESK metop succinate 25mg daily #Myocardial injury in the context of RV strain Suspect 2/2 demand ischemia, trop trending down. -Telemetry monitoring #HTN -Resume ADMINISTRATIVE ASSISTANT FRONT DESK metoprolol succinate 25mg daily -Hold ADMINISTRATIVE ASSISTANT FRONT DESK amlodipine 10mg daily GI #GERD -ADMINISTRATIVE ASSISTANT FRONT DESK pantoprazole Hemeonc #Leukocytosis, improving Likely iso possible [...] REGULAR VTE Prophylaxis: Heparin SC GI Prophylaxis: ADMINISTRATIVE ASSISTANT FRONT DESK PPI Code status: Limitation of Treatment DNR Do not intubate (DNI) Disposition/discharge planning: Plan to transfer to the floor later this afternoon Pete Lee DO PGY-2 Internal Medicine 02/18/2024 10:02 Cosigned by Ritesh Cardenas MD at 02/18/2024 13:37 EST Associated attestation - Ritesh Cardenas MD - 02/18/2024 5677 EST Attestation: I performed or was present [...] above interpretation and agree with the findings. [id number] XR HIP RIGHT 1 VIEW Result Date: 02/16/2024 Findings/impression: Redemonstrated right femoral neck fracture, not significantly changed. No left-sided hip fracture or dislocation. Mild degenerative changes of the left hip. The soft tissues are unremarkable. [id number] XR HIP LEFT 2-3 VIEWS OPTIONAL PELVIS Result Date: 02/16/2024 Findings/impression: Redemonstrated right femoral neck fracture, not significantly changed. No left-sided hip fracture or dislocation. Mild degenerative changes of the left hip. The soft tissues are unremarkable. [id number] XR CHEST PORTABLE 1 VIEW Result Date: 02/16/2024 Small bilateral pleural effusions. Slight interval increase in patchy airspace opacities at both lung bases and in the suprahilar right lung. [id number] Medications: Scheduled: [Transfer Hold] acetaminophen, 1,000 mg, [...] GERD, and hypertension, who was transferred from [facility] to [facility] and then [facility] for preoperative optimization for surgicalmanagement of a right femoral neck fracture. Hospital course at [facility] complicated by acute on chronic hypoxic hypercapenic respiratory failure 2/2 COPD exacerbation vs. community acquired pneumonia. Found to have pulmonary HTN and severe RV dilation with evidence of volume overload and diuresed. Started on HFNC at [facility] and then transferred to [facility] MICU for monitoring overnight prior to [...] O2 as tolerated -Maintain SpO2 88-92% -Replace ADMINISTRATIVE ASSISTANT FRONT DESK Anoro Ellipta with Symbicort -Prednisone 40mg daily x5 days (02/14-02/18) -S/p lasix 160 mg and 5 mg metolazone at [facility] prior to transfer -Duoneb q6h -Ceftriaxone + doxycycline (02/14 - ) -CTA PE 02/15: No evidence of PE, patchy opacity in peripheral RML, lingula, posterior segment or RUL -Bilateral pleural effusions, atherosclerosis of thoracic aorta and coronary artery/aortic valve ID Possible COPDe vs community acquired pneumonia Was started on CAP coverage at [facility]. Legionella, strep pneumo and MRSA negative. Procal [...] mg and 5 mg metolazone 02/16/24 at [facility] prior to transfer - Will hold off [...] define Tn elevation as a type II MN or myocardial injury (additional points for heart failure, Cr >2 mg/dL). My opinion is that this is simply myocardial injury in the context of RV strain and heart failure but this is impossible to prove. - Overall this indicates elevated risk (/MN/arrest of ~10-15% within a month of surgery) [...] he is taking eliquis, but report from [facility] said his last dose of eliquis was 02/13.S/p dilt drip at [facility]. -Telemetry monitoring -Trend lytes and replete (Mag >2) -Rate control goal < 110 -ADMINISTRATIVE ASSISTANT FRONT DESK ASA 81mg daily -Amiodarone gtt continue at 0.5 -UFH level and coags - Will discuss with ortho after OR regarding DVT ppx vs full dose AC #Myocardial injury in the context of RV strain Suspect 2/2 demand ischemia, trop trending down. -Telemetry monitoring #HTN -Hold ADMINISTRATIVE ASSISTANT FRONT DESK metoprolol succinate 25mg daily -Hold ADMINISTRATIVE ASSISTANT FRONT DESK amlodipine 10mg daily GI #GERD -ADMINISTRATIVE ASSISTANT FRONT DESK pantoprazole Hemeonc #Leukocytosis, improving Likely iso possible [...] Will start after OR today GI Prophylaxis: ADMINISTRATIVE ASSISTANT FRONT DESK PPI Code status: Limitation of Treatment DNR Do not intubate (DNI) Disposition/discharge planning: Pending operative/clinical course Admission status Inpatient admission due to anticipated duration of hospitalization is two midnights or greater due to Acute hypoxic respiratory failure. Hema Cazares MD Internal Medicine, PGY-2 Epic Chat (prefer) Pgr#[phone] Attending attestation statement: I saw and examined [...] 1. Closed right hip fracture, initial encounter ([facility]) Critical Care time was provided in the [...] Ale Bruce - 02/17/2024 1137 EST [facility] Spiritual Care Note Re: Noe Sue : 1940, AGE: 83 y.o. ROOM: [place] [address] BACKGROUND Referral visit. Patient appeared having hard time to hear. Patient said he was okay and no need to talk a professor of counseling or a lamination spinner at that time. Patient had a visitor, his granddaughter. INTERVENTIONS Presence Introducing spiritual care CARE PLAN Continued professor of counseling visit if needed RECOMMENDATIONS: None Matheus Napier [facility] Security Associate Jareth [phone] Thank you for the opportunity [...] 02/17/24 * Daniel Varghese MD - 02/17/2024 0553 EST Orthopaedic Progress Note Pt Name: Noe [...] aspirin, who presents to transfer initially from [facility] after a fall and whom orthopedics was consulted for a right femoral neck fracture. Plan for operative management today. P: OR today for open treatment of right hip fracture WB -bedrest Lewis Abx - 2g Ancef internal communications writer to the OR DVT prophylaxis -asked to [...] Add LDA for any identified wounds Add Point Lay image for any suspected PI or non surgical wounds Order wound consult if suspected PI identified If Hernando is < or = to 16, initiate Pressure Injury Prevention Bundle ([id number]). 02/16/2024 18:43 * Morenita Yee, RT - [...] decreased Response: Mild response, increase subjective per COLLABORATIVE TEACHER Pulse: >100 Resp Rate: 18-25 SOB: At [...] home as needed; Do not see on ADMINISTRATIVE ASSISTANT FRONT DESK meds. Duoneb given per order. RT RANDI 02/16/24 documented in this encounter H&P Notes * Ritesh Cardenas MD - 02/16/2024 8157 EST MICU Admission History & Physical Service Date: 02/16/2024 Admit Date: 02/16/2024 15:41 Primary Care Provider: SUZIE VILLAGOMEZ Chief Complaint: Fall HPI Noe Sue is a 83 y.o. male with a PMHx of HTN, GERD, COPD (on 3-5 L NC baseline) and atrial fibrillation (unclear if on AC), who presented to [facility] s/p fall andwas found to have [...] chest pain, shortness of breath, or cough. [facility] ED labs notable for WBC 22, procal 3, creatinine 3 (baseline ~1), and potassium 6. He was subsequently transferred to [facility] 02/14 for surgical management. On arrival, temp [...] -->0.244. He was confirmed DNR/DNI. Transferred from [facility] to [facility] MICU for preoperative optimization. On arrival to [facility], Noe says that he feels exhausted. [...] bases and in the suprahilar right lung. [id number] TTE 02/16/24: Left Ventricle: Left ventricular systolic [...] GERD, and hypertension, who was transferred from [facility] to [facility] and then [facility] for preoperative optimization for surgicalmanagement of a right femoral neck fracture. Hospital course at [facility] complicated by acute on chronic hypoxic hypercapenic respiratory failure 2/2 COPD exacerbation vs. community acquired pneumonia. Found to have pulmonary HTN and severe RV dilation with evidence of volume overload and diuresed. Started on HFNC at [facility] and then transferred to [facility] MICU for monitoring overnight prior to [...] O2 as tolerated -Maintain SpO2 88-92% -Replace ADMINISTRATIVE ASSISTANT FRONT DESK Anoro Ellipta with Symbicort -Prednisone 40mg daily x5 days (02/14-02/18) -S/p lasix 160 mg and 5 mg metolazone early today at [facility] prior to transfer -Duoneb q6h -Ceftriaxone + doxycycline (02/14 - ) -CTA PE Effusions are small and risk>benefit for thoracentesis at this point in time Wean O2 as able ID Possible COPDe vs community acquired pneumonia Was started on CAP coverage at [facility]. Legionella, strep pneumo and MRSA negative. Procal [...] and 5 mg metolazone early today at [facility] prior to transfer -Strict I/Os -Goal net [...] define Tn elevation as a type II MN or myocardialinjury (additional points for heart failure, Cr >2 mg/dL). My opinion is that this is simply myocardial injury in the context of RV strain and heart failure but this is impossible to prove. Overall this indicates elevated risk (/MN/arrest of ~10-15% within a month of surgery) [...] he is taking eliquis, but report from [facility] said his last dose of eliquis was 02/13.S/p dilt drip at [facility]. -Telemetry monitoring -Trend lytes and replete (Mag >2) -Rate control goal < 110 -ADMINISTRATIVE ASSISTANT FRONT DESK ASA 81mg daily -Amiodarone gtt -UFH level and coags Myocardial injury in the context of RV strain Suspect 2/2 demand ischemia, trop trending down. -Telemetry monitoring HTN -Hold ADMINISTRATIVE ASSISTANT FRONT DESK metoprolol succinate 25mg daily -Hold ADMINISTRATIVE ASSISTANT FRONT DESK amlodipine 10mg daily GI GERD -ADMINISTRATIVE ASSISTANT FRONT DESK pantoprazole Hemeonc Leukocytosis, improving Likely iso possible [...] 1. Closed right hip fracture, initial encounter ([facility]) Critical Care time was provided in the [...] home, GERD, hypertension who originally presented to [facility] for hip fracture. Pulmonary Medicine [...] been diuresed. He does not have a sys dir at this time, although he lives in the [facility] and is interested in establishing care with a sys dir there. He is a former smoker, having [...] file Housing Stability: Not At Risk (02/20/2024) [facility] - Inadequate Housing Current Living Situation: I [...] home, GERD, hypertension who originally presented to [facility] for hip fracture. Pulmonary Medicine [...] lung disease. Would recommend referral to a sys dir out in his [place] area. Would be reasonable to start him onStiolto given the different administration mechanism. Further care can be managed outpatient, is appropriate for Oxymizer at rehab. He should preoxygenated with the Oxymizer for several minutes before he gets up and moves around. When he is finally home, would be reasonable candidate for pulmonary r ehab, however will defer to his outpatient sys dir that he establishes care to set that [...] Attending Physician Pulmonary Disease-Critical Care Medicine The * Char Martinez MD - 02/16/2024 7509 EST Orthopaedic Surgery Consultation Consultation requested by: Dr. Cardenas for: Right femoral neck fracture HPI: Noe Sue is a 83 y.o. male past medical history significant for COPD with chronic hypoxic respiratory failure (3-5L O2 at baseline), Atrial fibrillation on aspirin, who presents to transfer initially from [facility] for right femoral neck fracture after a fall where he had lab abnormalities with hyperkalemia and leukocytosis with an abnormal procalcitonin, and anesthesia was uncomfortable doing surgery due to the patient's oxygen requirements so he was then transferred to [facility] where his admission was complicated by acute on chronic hypoxic and hypercarbic respiratory failure secondary to COPD exacerbation, and was placed on high flow nasal cannula and had atrial fibrillation with RVR and was placed on a diltiazem infusion and switched to an amio infusion.He had an echo at [facility] that demonstrated severe pulmonary hypertension and he [...] transcervical femoral neck fracture. Assessment: Noe Sue [id number] 1940 Noe Sue is a 83 y.o. male with past medical history significant for COPD with chronic hypoxic respiratory failure (3-5L O2 at baseline), Atrial fibrillation on aspirin, who presents to transfer initially from [facility] for right femoral neck fracture after a fallwhere he had lab abnormalities with hyperkalemia and leukocytosis with an abnormal procalcitonin, and anesthesia was uncomfortable doing surgery due to the patient's oxygen requirements so he was then transferred to [facility] where his admission was complicated by acute on chronic hypoxic and hypercarbic respiratory failure secondary to COPD exacerbation, and was placed on high flow nasal cannula and had atrial fibrillation with RVR and was placed on a diltiazem infusion and switched to an amio infusion. He had an echo at [facility] that demonstrated severe pulmonary hypertension and he [...] MD PGY-2 Orthopaedic Surgery 02/16/2024 19:29 Pager #[phone], or EPIC Chat Cosigned by Augustine Ceja MD at 02/17/2024 10:59 EST Associated attestation - Augustine Ceja MD - 02/17/2024 9711 EST Attestation: I performed or was present [...] days ago. He initially was transferred to [facility] from outside hospital for surgery for his right hip. Unfortunately he developed severe respiratory distress from his COPD and was admitted to the ICU on 02/16/2024. Due to the severity of his illness and not being able to undergo spinal anesthesia, request for transfer was made to [facility] for higher level of care. He was then transferred to the ICU at [facility], evaluated and deemed as optimized [...] SERVICE DATE: 02/17/24 SURGEON: Augustine Ceja MD STRUCTURES TECHNICIAN: DENITA THOMAS MD, Russell Rodriguez MD PREOPERATIVE DIAGNOSIS: Right displaced femoral neck fracture. POSTOPERATIVE DIAGNOSIS: Right displaced femoral neck fracture. PROCEDURE: Right hip cemented unipolar hemiarthroplasty (CPT 53260). ANESTHESIA: Epidural with IV sedation ESTIMATED BLOOD LOSS: 150 mL. FLUIDS: 150 mL crystalloid. URINE OUTPUT: 250 mL. IMPLANTS: [place] size 4 Accolade C 132 stem, 53 [...] fascia was closed with a combination of uizxzo-bt-[id number] interrupted #1 vicryl and running #1 PDS [...] Patient in bed, call spencer within reach. CORIRE DAVIDSON RN 02/28/2024 1:45 * Plan of [...] per MAR. Clustered care to promote rest. Z4gewdr done. Safety ensured. Response: Patient able to [...] GERD, and HTN, who was transferred from [facility] to [facility] and then [facility] forsurgical management of a right femoral [...] this patient. Please contact us via SecureChat ([facility] Wound Care Team) or reconsult for [...] Plan Documentation Outcome: Ongoing Flowsheets (Taken 02/19/2024 5555) Area of Focus: Respiratory Goal This Shift: [...] on HFNC. Patient satting above 88%. RHEA LFEMING RN 02/19/2024 4:03 * Plan of Care [...] abnormality is seen. Atherosclerotic calcifications arepresent bilaterally. [id number] XR HIP LEFT 1 VIEW Result Date: 02/17/2024 FINDINGS/IMPRESSION: 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 No periprosthetic fracture is seen. No acute left hip abnormality is seen. Atherosclerotic calcifications arepresent bilaterally. [id number] CT ANGIO CHEST PE PROTOCOL Result Date: [...] above interpretation and agree with the findings. [id number] XR HIP RIGHT 1 VIEW Result Date: 02/16/2024 Findings/impression: Redemonstrated right femoral neck fracture, not significantly changed. No left-sided hip fracture or dislocation. Mild degenerative changes of the left hip. The soft tissues are unremarkable. [id number] XR HIP LEFT 2-3 VIEWS OPTIONAL PELVIS Result Date: 02/16/2024 Findings/impression: Redemonstrated right femoral neck fracture, not significantly changed. No left-sided hip fracture or dislocation. Mild degenerative changes of the left hip. The soft tissues are unremarkable. [id number] XR CHEST PORTABLE 1 VIEW Result Date: 02/16/2024 Small bilateral pleural effusions. Slight interval increase in patchy airspace opacities at both lung bases and in the suprahilar right lung. [id number] Medications: Scheduled: acetaminophen, 1,000 mg, Q6H aspirin [...] GERD, and HTN, who was transferred to [facility] for management of a right femoral [...] SpO2 88-92% -Cont Symbicort in place of ADMINISTRATIVE ASSISTANT FRONT DESK Anoro Ellipta -Prednisone for 2 more days (then reassess) -Duoneb q6h -airway clearance -Completes 5 day courses of Ceftriaxone + doxycycline today -Repeat chest CT in 1-3 months to reevaluate 1.1 cm spiculated lung nodule in the lingula Severe pulmonary HTN with RV failure (S/p lasix 160 mg and 5 mg metolazone 02/16/24 at [facility] prior [facility]) - No additional diuresis Afib with RVR (Patient denies h/o AF or taking eliquis, but report from [facility] said his last dose of eliquis was 02/13) -Telemetry monitoring -Cont ADMINISTRATIVE ASSISTANT FRONT DESK metoprolol XL 25 mg daily -need to call PCP Monday and investigate question of AF and AC HTN -cont ADMINISTRATIVE ASSISTANT FRONT DESK metoprolol XL 25 mg daily -Holding ADMINISTRATIVE ASSISTANT FRONT DESK amlodipine 10 mg daily GI (GERD and constipation) -ADMINISTRATIVE ASSISTANT FRONT DESK pantoprazole -scheduled bowel Rx CHRISTIANO (improving, baseline Cr about 1 per note from [facility]) -Daily BMP -Strict I/Os Right femoral neck [...] Care - Trisha Tran RN - 02/17/2024 2210 EST Images from the original note were [...] pt to hospital closer to home (Prefers [facility], [facility]) Response: HR and BP stable, Occasional [...] might see on the residents EOL process [employer]ITAL CAMPAIGN FUNDRAISER APPROACHES: 1. Report and signs/symptoms of pain [...] 132 degree Stem, Size 53mm +0 Unitrax [place] Chrome Head, Size 11mm Centralizer, Medium Ontiveros Plug Implant Name Type Inv. Item Serial No. Salon Supervisor Lot No. LRB No. Used Action RESTRICTOR CEMENT ONTIVEROS 25MM DISTAL FEM HIP RECON SURGERY ST - [id number] Total Joint Implant RESTRICTOR CEMENT ONTIVEROS 25MM DISTAL FEM HIP RECON SURGERY ST [id number] [employer] [id number] Right 1Implanted HIP FEMORAL STEM CMNTD 132DEG STD OFFST SZ 4 [id number] ACCOLADE C [id number] - [id number] Total Joint Implant HIP FEMORAL STEM CMNTD 132DEG STD OFFST SZ 4 [id number] ACCOLADE C [id number] [employer] [id number] Right 1 Implanted HIP SPACER STEM DISTAL CEMENTED 11MM ACCOLADE [id number] - [id number] Total Joint Implant HIP SPACER STEM DISTAL CEMENTED 11MM ACCOLADE [id number] [employer] [id number] Right 1 Implanted CEMENT BONE HIGH VISCOSITY TOBRAMYCIN RADIOPAQUE SINGLE DOSE YANES 40GM SIMPLEX [id number] - [id number] Ortho Implant CEMENT BONE HIGH VISCOSITY TOBRAMYCIN RADIOPAQUE SINGLE DOSE YANES 40GM SIMPLEX [id number] [facility] [id number] Right 2 Implanted HIP HEAD UNIPOLAR COCR 53MM UNITRAX [id number] - [id number] Total Joint Implant HIP HEAD UNIPOLAR [id number] UNITRAX [id number] [employer] [id number] Right 1 Implanted HIP TAPER SLEEVE STANDARD OFFSET FEMORAL V40 [id number] - [id number] Total Joint Implant HIP TAPER SLEEVE STANDARD OFFSET FEMORAL V40 [id number] [employer] [id number] Right 1 Implanted Closure: Monocryl, Dermabond, Mepilex [...] Care - Regine Jacobs RN - 02/17/2024 0900 EST Images from the original note were [...] admitted to MICU at approx 1600 from [facility], Patient admitted with Acute hypoxic respiratory failure ([facility]) Arrived on NRB 10L; transferred to [facility]; poor reserves, pt desats to low 80s [...] audible with doppler. Pt accompanied by MICU gauge maker to CT for r/o PE. Monitored cardiovascular, [...] Contact Info) Description 04/05/2024 10:15 EST Appointment [facility] Xray [address] [place] [address] 04/05/2024 10:30 EST Post-op Visit [facility] Orthopedic Trauma - An [address] [place] [address] Ko Marquis PA-C [address] [place] [address] Scheduled Referrals Name Type Priority Associated Diagnoses Order Schedule AMB CONS/FOLLOW UP ENDOCRINOLOGY Outpatient Referral Routine/Next Available Osteoporosis with current pathological fracture, unspecified osteoporosis type, initial encounter Expected: 04/04/2024 (Approximate), Expires: 02/21/2025 AMB CONS/FOLLOW UP ORTHOPEDICS - [facility] Outpatient Referral Routine/Next Available Closed right hip fracture, initial encounter ([facility]) Expected: 03/23/2024 (Approximate), Expires: 02/21/2025 documented as [...] Closed right hip fracture, initial encounter ([facility]) XR HIP LEFT 1 VIEW Routine 02/17/2024 15 :20 EST Closed right hip fracture, initial encounter ([facility]) OPEN TREATMENT, FRACTURE, FEMUR, NECK, WITH INTERNAL FIXATION OR INSERTION OF PROSTHETIC 02/17/2024 11:44 EST Closed right hip fracture, initial encounter ([facility]) PROTIME STAT 02/17/2024 11:41 EST COMPLETE BLOOD [...] 03/04/2024 11:3 9 EST us Scan 2 Senior Software Developer PROCEDURE/MINOR SURGICAL OR DERABLES Final Result * ECG REPORT - SCANNED (03/04/2024 9:35 EST) 03/04/2024 9:35 EST us Scan 2 Senior Software Developer PROCEDURE/MINOR SURGICAL OR DERABLES Final Result * ECG REPORT - SCANNED (02/28/2024 10:36 EST) 02/28/2024 10:3 6 EST us Scan 2 Senior Software Developer PROCEDURE/MINOR SURGICAL OR DERABLES Final Result * (ABNORMAL) COMPLETE BLOOD COUNT (02/28/2024 10:26 EST) WBC 16.63(H) 4.00 - 10.40 K/cmm 02/28/2024 11:06 [facility] RBC 3.09(L) 4.36 - 5.78 M/cmm 02/28/2024 11:06 [facility] Hemoglobin 10.3(L) 13.8 - 17.3 g/dL 02/28/2024 11:06 [facility] HCT 30.5(L) 39.5 - 50.2 % 02/28/2024 11:06 [facility] MCV 99(H) 81 - 95 fL 02/28/2024 11:06 [facility] MCH 33.3(H) 27.6 - 33.0 pg 02/28/2024 11:06 [facility] MCHC 33.8 32.8 - 36.4 g/dL 02/28/2024 11:06 [facility] RDW-CV 15.2(H) <14.2 % 02/28/2024 11:06 [facility] RDW-SD 55.3(H) <46.0 fl 02/28/2024 11:06 [facility] PLT 362 141 - 377 K/cmm 02/28/2024 11:06 [facility] MPV 10.1 9.5 - 12.7 fL 02/28/2024 11:06 [facility] Blood VENOUS BLOOD / Unknown Venipuncture / Unknown 02/28/2024 10:26 EST 02/28/2024 10:54 EST us Pushpa Welch MD HEMATOLOGY & PF4 ORDERABLES F inal Result [facility] [address] [place] [address] * (ABNORMAL) BASIC METABOLIC PANEL (BMP) (02/28/2024 10:26 EST) Sodium 137 136 - 145 mmol/L 02/28/2024 11:44 [facility] Potassium 3.7 3.5 - 5.0 mmol/L 02/28/2024 11:44 [facility] Chloride 95(L) 96 - 110 mmol/L 02/28/2024 11:44 [facility] CO2 Total 38(H) 22 - 32 mmol/L 02/28/2024 11:44 [facility] Anion Gap 4(L) 5 - 14 mmol/L 02/28/2024 11:44 [facility] Glucose 127(H) 70 - 99 mg/dl 02/28/2024 11:44 [facility] Calcium 8.4(L) 8.5 - 10.5 mg/dL 02/28/2024 11:44 [facility] BUN 34(H) 10 - 26 mg/dL 02/28/2024 11:44 [facility] Creatinine 1.32(H) 0.66 - 1.25 mg/dL 02/28/2024 11:44 [facility] eGFR 53(L) >60 mL/min/1.73 m2 02/28/2024 11:44 [facility] Blood VENOUS BLOOD / Unknown Venipuncture / Unknown 02/28/2024 10:26 EST 02/28/2024 10:55 EST Pushpa Welch MD CHEMISTRY & BLOOD GAS ORDERAB LES Final Result [facility] [address] [place] [id number] * (ABNORMAL) NT PRO BNP (02/27/2024 15:55 EST) NT-pro BNP 1,210(H) <326 pg/mL 02/27/2024 16:57 EST [facility] Comment: In the [...] ORDERABL ES Final Result Performing Organization Address [facility] [address]/ZIP Co de Phone Number [facility] [address] [place] [address] * (ABNORMAL) BASIC METABOLIC PANEL (BMP) (02/27/2024 15:55 EST) Sodium 137 136 - 145 mmol/L 02/27/2024 16:57 EST [facility] Potassium 4.0 3.5 - 5.0 mmol/L 02/27/2024 16:57 EST [facility] Chloride 94(L) 96 - 110 mmol/L 02/27/2024 16:57 [facility] CO2 Total 36(H) 22 - 32 mmol/L 02/27/2024 16:57 [facility] Anion Gap 7 5 - 14 mmol/L 02/27/2024 16:57 [facility] Glucose 184(H) 70 - 99 mg/dl 02/27/2024 16:57 [facility] Calcium 8.4(L) 8.5 - 10.5 mg/dL 02/27/2024 16:57 [facility] BUN 37(H) 10 - 26 mg/dL 02/27/2024 16:57 [facility] Creatinine 1.34(H) 0.66 - 1.25 mg/dL 02/27/2024 16:57 [facility] eGFR 52(L) >60 mL/min/1.73 m2 02/27/2024 16:57 [facility] Blood VENOUS BLOOD / Unknown Venipuncture / Unknown 02/27/2024 15:55 EST 02/27/2024 16:02 EST Pushpa Welch MD CHEMISTRY & BLOOD GAS ORDERAB LES Final Result [facility] [address] [place] [address] * TRANSTHORACIC ECHO (TTE) LIMITED W/DOPPLER W/CF [...] color Doppler.The study was interpreted by [facility]. Pertinent images and digital [...] 20.40(H) 4.00 - 10.40 K/cmm 02/26/2024 16:12 [facility] RBC 3.15(L) 4.36 - 5.78 M/cmm 02/26/2024 16:12 [facility] Hemoglobin 10.3(L) 13.8 - 17.3 g/dL 02/26/2024 16:12 [facility] HCT 31.3(L) 39.5 - 50.2 % 02/26/2024 16:12 [facility] MCV 99(H) 81 - 95 fL 02/26/2024 16:12 [facility] MCH 32.7 27.6 - 33.0 pg 02/26/2024 16:12 [facility] MCHC 32.9 32.8 - 36.4 g/dL 02/26/2024 16:12 [facility] RDW-CV 15.3(H) <14.2 % 02/26/2024 16:12 [facility] RDW-SD 55.4(H) <46.0 fl 02/26/2024 16:12 [facility] PLT 311 141 - 377 K/cmm 02/26/2024 16:12 [facility] MPV 10.4 9.5 - 12.7 fL 02/26/2024 16:12 [facility] Blood VENOUS BLOOD / Unknown Venipuncture / Unknown 02/26/2024 15:55 EST 02/26/2024 16:03 EST Pushpa Welch MD HEMATOLOGY & PF4 ORDERABLES F inal Result [facility] [address] [place] [address] * (ABNORMAL) BASIC METABOLIC PANEL (BMP) (02/26/2024 15:54 EST) Sodium 137 136 - 145 mmol/L 02/26/2024 16:55 [facility] Potassium 4.6 3.5 - 5.0 mmol/L 02/26/2024 16:55 [facility] Chloride 95(L) 96 - 110 mmol/L 02/26/2024 16:55 [facility] CO2 Total 34(H) 22 - 32 mmol/L 02/26/2024 16:55 [facility] Anion Gap 8 5 - 14 mmol/L 02/26/2024 16:55 [facility] Glucose 159(H) 70 - 99 mg/dl 02/26/2024 16:55 [facility] Calcium 8.5 8.5 - 10.5 mg/dL 02/26/2024 16:55 [facility] BUN 40(H) 10 - 26 mg/dL 02/26/2024 16:55 [facility] Creatinine 1.23 0.66 - 1.25 mg/dL 02/26/2024 16:55 [facility] eGFR 58(L) >60 mL/min/1.73 m2 02/26/2024 16:55 EST [facility] Blood VENOUS BLOOD / Unknown Venipuncture / Unknown 02/26/2024 15:54 EST 02/26/2024 16:13 EST us Pushpa Welch MD CHEMISTRY & BLOOD GAS ORDERAB LES Final Result [facility] [address] [place] [address] * XR CHEST PORTABLE 1 VIEW (02/26/2024 12:08 EST) Anatomical Region Laterality Modality Computed Radiogr aphy 02/26/2024 12:1 6 EST Impressions 02/26/2024 12:16 EST New right upper and lower lobe airspace opacities which may represent aspiration pneumonitis. Small right effusion. [id number] Narrative 02/26/2024 12:16 EST XR CHEST PORTABLE [...] findings: ??Normal. Bones: Normal. Resulting Agency Comment [id number] Procedure Note Karo Schmidt MD - 02/26/2024 [...] which may representaspiration pneumonitis. Small right effusion. [id number] Pushpa Welch MD IMG DIAGNOSTIC IMAGING ORDERA BLES Final Result * (ABNORMAL) BASIC METABOLIC PANEL (BMP) (02/24/2024 9:22 EST) Sodium 137 136 - 145 mmol/L 02/24/2024 10:32 [facility] Potassium 4.7 3.5 - 5.0 mmol/L 02/24/2024 10:32 [facility] Chloride 96 96 - 110 mmol/L 02/24/2024 10:32 [facility] CO2 Total 36(H) 22 - 32 mmol/L 02/24/2024 10:32 [facility] Anion Gap 5 5 - 14 mmol/L 02/24/2024 10:32 [facility] Glucose 146(H) 70 - 99 mg/dl 02/24/2024 10:32 [facility] Calcium 9.0 8.5 - 10.5 mg/dL 02/24/2024 10:32 [facility] BUN 48(H) 10 - 26 mg/dL 02/24/2024 10:32 [facility] Creatinine 1.04 0.66 - 1.25 mg/dL 02/24/2024 10:32 [facility] eGFR 70 >60 mL/min/1.73 m2 02/24/2024 10:32 [facility] Blood VENOUS BLOOD / Unknown Venipuncture / Unknown 02/24/2024 9:22 EST 02/24/2024 9:55 EST Marcos Quintero MD CHEMISTRY & BLOOD GAS ORD ERABLES Final Result [facility] [address] [place] [address] * (ABNORMAL) COMPLETE BLOOD COUNT (02/24/2024 9:22 EST) WBC 22.32(H) 4.00 - 10.40 K/cmm 02/24/2024 10:08 [facility] RBC 3.54(L) 4.36 - 5.78 M/cmm 02/24/2024 10:08 [facility] Hemoglobin 11.6(L) 13.8 - 17.3 g/dL 02/24/2024 10:08 [facility] HCT 34.4(L) 39.5 - 50.2 % 02/24/2024 10:08 [facility] MCV 97(H) 81 - 95 fL 02/24/2024 10:08 [facility] MCH 32.8 27.6 - 33.0 pg 02/24/2024 10:08 [facility] MCHC 33.7 32.8 - 36.4 g/dL 02/24/2024 10:08 [facility] RDW-CV 15.0(H) <14.2 % 02/24/2024 10:08 [facility] RDW-SD 53.6(H) <46.0 fl 02/24/2024 10:08 [facility] PLT 311 141 - 377 K/cmm 02/24/2024 10:08 [facility] MPV 10.6 9.5 - 12.7 fL 02/24/2024 10:08 [facility] Blood VENOUS BLOOD / Unknown Venipuncture / Unknown 02/24/2024 9:22 EST 02/24/2024 9:54 EST us Pete Lee DO HEMATOLOGY & PF4 ORDERABLES Saadia josse Result [facility] [address] [place] [address] * (ABNORMAL) BASIC METABOLIC PANEL (BMP) (02/23/2024 12:04 EST) Sodium 138 136 - 145 mmol/L 02/23/2024 12:39 [facility] Potassium 4.6 3.5 - 5.0 mmol/L 02/23/2024 12:39 [facility] Chloride 95(L) 96 - 110 mmol/L 02/23/2024 12:39 [facility] CO2 Total 39(H) 22 - 32 mmol/L 02/23/2024 12:39 [facility] Anion Gap 4(L) 5 - 14 mmol/L 02/23/2024 12:39 [facility] Glucose 223(H) 70 - 99 mg/dl 02/23/2024 12:39 [facility] Calcium 8.7 8.5 - 10.5 mg/dL 02/23/2024 12:39 [facility] BUN 51(H) 10 - 26 mg/dL 02/23/2024 12:39 [facility] Creatinine 1.10 0.66 - 1.25 mg/dL 02/23/2024 12:39 [facility] eGFR 66 >60 mL/min/1.73 m2 02/23/2024 12:39 [facility] Blood VENOUS BLOOD / Unknown Venipuncture / Unknown 02/23/2024 12:04 EST 02/23/2024 12:09 EST us Marcos Quintero MD CHEMISTRY & BLOOD GAS ORD ERABLES Final Result Performing Organization Address City/State/[facility] Co de Phone Number [facility] [address] [place] [phone] * (ABNORMAL) COMPLETE BLOOD COUNT (02/23/2024 12:04 EST) WBC 19.09(H) 4.00 - 10.40 K/cmm 02/23/2024 13:21 [facility] RBC 3.57(L) 4.36 - 5.78 M/cmm 02/23/2024 13:21 [facility] Hemoglobin 11.6(L) 13.8 - 17.3 g/dL 02/23/2024 13:21 [facility] HCT 35.4(L) 39.5 - 50.2 % 02/23/2024 13:21 [facility] MCV 99(H) 81 - 95 fL 02/23/2024 13:21 [facility] MCH 32.5 27.6 - 33.0 pg 02/23/2024 13:21 [facility] MCHC 32.8 32.8 - 36.4 g/dL 02/23/2024 13:21 [facility] RDW-CV 15.0(H) <14.2 % 02/23/2024 13:21 [facility] RDW-SD 54.0(H) <46.0 fl 02/23/2024 13:21 [facility] PLT 274 141 - 377 K/cmm 02/23/2024 13:21 [facility] MPV 10.9 9.5 - 12.7 fL 02/23/2024 13:21 [facility] Blood VENOUS BLOOD / Unknown Venipuncture / Unknown 02/23/2024 12:04 EST 02/23/2024 13:13 EST us Pete Lee DO HEMATOLOGY & PF4 ORDERABLES Saadia loaiza Result [facility] [address] [place] [address] * (ABNORMAL) BASIC METABOLIC PANEL (BMP) (02/22/2024 11:01 EST) Sodium 138 136 - 145 mmol/L 02/22/2024 12:27 [facility] Potassium 4.5 3.5 - 5.0 mmol/L 02/22/2024 12:27 [facility] Chloride 95(L) 96 - 110 mmol/L 02/22/2024 12:27 [facility] CO2 Total 37(H) 22 - 32 mmol/L 02/22/2024 12:27 [facility] Anion Gap 6 5 - 14 mmol/L 02/22/2024 12:27 [facility] Glucose 208(H) 70 - 99 mg/dl 02/22/2024 12:27 [facility] Calcium 9.0 8.5 - 10.5 mg/dL 02/22/2024 12:27 [facility] BUN 56(H) 10 - 26 mg/dL 02/22/2024 12:27 [facility] Creatinine 1.27(H) 0.66 - 1.25 mg/dL 02/22/2024 12:27 [facility] eGFR 55(L) >60 mL/min/1.73 m2 02/22/2024 12:27 [facility] Blood VENOUS BLOOD / Unknown Venipuncture / Unknown 02/22/2024 11:01 EST 02/22/2024 11:40 EST us Marcos Quintero MD CHEMISTRY & BLOOD GAS ORD ERABLES Final Result Performing Organization Address City/State/[facility] Co de Phone Number [facility] [address] [place] [phone] * (ABNORMAL) COMPLETE BLOOD COUNT (02/22/2024 11:01 EST) WBC 22.75(H) 4.00 - 10.40 K/cmm 02/22/2024 11:45 [facility] RBC 3.52(L) 4.36 - 5.78 M/cmm 02/22/2024 11:45 [facility] Hemoglobin 11.7(L) 13.8 - 17.3 g/dL 02/22/2024 11:45 [facility] HCT 34.6(L) 39.5 - 50.2 % 02/22/2024 11:45 [facility] MCV 98(H) 81 - 95 fL 02/22/2024 11:45 [facility] MCH 33.2(H) 27.6 - 33.0 pg 02/22/2024 11:45 [facility] MCHC 33.8 32.8 - 36.4 g/dL 02/22/2024 11:45 [facility] RDW-CV 15.1(H) <14.2 % 02/22/2024 11:45 [facility] RDW-SD 54.9(H) <46.0 fl 02/22/2024 11:45 [facility] PLT 270 141 - 377 K/cmm 02/22/2024 11:45 [facility] MPV 10.8 9.5 - 12.7 fL 02/22/2024 11:45 [facility] Blood VENOUS BLOOD / Unknown Venipuncture / Unknown 02/22/2024 11:01 EST 02/22/2024 11:37 EST us Pete Lee DO HEMATOLOGY & PF4 ORDERABLES Saadia josse Result [facility] [address] [place], [place] [id number] * (ABNORMAL) BASIC METABOLIC PANEL (BMP) (02/21/2024 9:58 EST) Sodium 138 136 - 145 mmol/L 02/21/2024 11:42 [facility] Potassium 4.1 3.5 - 5.0 mmol/L 02/21/2024 11:42 [facility] Chloride 95(L) 96 - 110 mmol/L 02/21/2024 11:42 [facility] CO2 Total 34(H) 22 - 32 mmol/L 02/21/2024 11:42 [facility] Anion Gap 9 5 - 14 mmol/L 02/21/2024 11:42 [facility] Glucose 190(H) 70 - 99 mg/dl 02/21/2024 11:42 [facility] Calcium 8.5 8.5 - 10.5 mg/dL 02/21/2024 11:42 [facility] BUN 54(H) 10 - 26 mg/dL 02/21/2024 11:42 [facility] Creatinine 1.38(H) 0.66 - 1.25 mg/dL 02/21/2024 11:42 [facility] eGFR 50(L) >60 mL/min/1.73 m2 02/21/2024 11:42 [facility] Blood VENOUS BLOOD / Unknown Venipuncture / Unknown 02/21/2024 9:58 EST 02/21/2024 11:04 EST Marcos Quintero MD CHEMISTRY & BLOOD GAS ORD ERABLES Final Result [facility] [address] [place] [address] * (ABNORMAL) COMPLETE BLOOD COUNT (02/21/2024 9:58 EST) WBC 15.67(H) 4.00 - 10.40 K/cmm 02/21/2024 11:02 [facility] RBC 3.25(L) 4.36 - 5.78 M/cmm 02/21/2024 11:02 [facility] Hemoglobin 10.6(L) 13.8 - 17.3 g/dL 02/21/2024 11:02 [facility] HCT 31.7(L) 39.5 - 50.2 % 02/21/2024 11:02 [facility] MCV 98(H) 81 - 95 fL 02/21/2024 11:02 [facility] MCH 32.6 27.6 - 33.0 pg 02/21/2024 11:02 [facility] MCHC 33.4 32.8 - 36.4 g/dL 02/21/2024 11:02 [facility] RDW-CV 15.0(H) <14.2 % 02/21/2024 11:02 [facility] RDW-SD 54.0(H) <46.0 fl 02/21/2024 11:02 [facility] PLT 196 141 - 377 K/cmm 02/21/2024 11:02 [facility] MPV 10.7 9.5 - 12.7 fL 02/21/2024 11:02 EST [facility] Blood VENOUS BLOOD / Unknown Venipuncture / Unknown 02/21/2024 9:58 EST 02/21/2024 10:49 EST us Pete Jesus DO HEMATOLOGY & PF4 ORDERABLES Saadia l Result [facility] [address], [place] [id number] * (ABNORMAL) BASIC METABOLIC PANEL (BMP) (02/20/2024 10:07 EST) Sodium 141 136 - 145 mmol/L 02/20/2024 11:58 [facility] Potassium 4.0 3.5 - 5.0 mmol/L 02/20/2024 11:58 [facility] Chloride 96 96 - 110 mmol/L 02/20/2024 11:58 [facility] CO2 Total 35(H) 22 - 32 mmol/L 02/20/2024 11:58 [facility] Anion Gap 10 5 - 14 mmol/L 02/20/2024 11:58 [facility] Glucose 106(H) 70 - 99 mg/dl 02/20/2024 11:58 [facility] Calcium 8.5 8.5 - 10.5 mg/dL 02/20/2024 11:58 [facility] BUN 64(H) 10 - 26 mg/dL 02/20/2024 11:58 [facility] Creatinine 2.00(H) 0.66 - 1.25 mg/dL 02/20/2024 11:58 [facility] eGFR 32(L) >60 mL/min/1.73 m2 02/20/2024 11:58 [facility] Blood VENOUS BLOOD / Unknown Venipuncture / Unknown 02/20/2024 10:07 EST 02/20/2024 11:15 EST us Marcos Quintero MD CHEMISTRY & BLOOD GAS ORD ERABLES Final Result [facility] [address], [place] [id number] * (ABNORMAL) COMPLETE BLOOD COUNT (02/20/2024 10:07 EST) WBC 14.61(H) 4.00 - 10.40 K/cmm 02/20/2024 11:28 [facility] RBC 3.36(L) 4.36 - 5.78 M/cmm 02/20/2024 11:28 [facility] Hemoglobin 11.0(L) 13.8 - 17.3 g/dL 02/20/2024 11:28 [facility] HCT 32.8(L) 39.5 - 50.2 % 02/20/2024 11:28 [facility] MCV 98(H) 81 - 95 fL 02/20/2024 11:28 [facility] MCH 32.7 27.6 - 33.0 pg 02/20/2024 11:28 [facility] MCHC 33.5 32.8 - 36.4 g/dL 02/20/2024 11:28 [facility] RDW-CV 15.2(H) <14.2 % 02/20/2024 11:28 [facility] RDW-SD 54.4(H) <46.0 fl 02/20/2024 11:28 [facility] PLT 167 141 - 377 K/cmm 02/20/2024 11:28 [facility] MPV 11.7 9.5 - 12.7 fL 02/20/2024 11:28 [facility] Blood VENOUS BLOOD / Unknown Venipuncture / Unknown 02/20/2024 10:07 EST 02/20/2024 11:13 EST us Pete Lee DO HEMATOLOGY & PF4 ORDERABLES Saadia l Result [facility] [address] [place] [address] * MRSA PCR (02/20/2024 5:04 EST) MRSA/Staph aureus Result No Staphylococcus aureus detected by PCR 02/20/2024 13:18 [facility] Swab BOTH ANTERIOR NARES / Unknown Swab / Unknown 02/20/2024 5:04 EST 02/20/2024 7:15 EST us Pete Chatham DO MICROBIOLOGY - GENERAL ORDERABLE S Final Result [facility] [address] [place] [address] * (ABNORMAL) BASIC METABOLIC PANEL (BMP) (02/19/2024 11:27 EST) Sodium 136 136 - 145 mmol/L 02/19/2024 12:28 [facility] Potassium 4.7 3.5 - 5.0 mmol/L 02/19/2024 12:28 [facility] Chloride 96 96 - 110 mmol/L 02/19/2024 12:28 [facility] CO2 Total 35(H) 22 - 32 mmol/L 02/19/2024 12:28 [facility] Anion Gap 5 5 - 14 mmol/L 02/19/2024 12:28 [facility] Glucose 149(H) 70 - 99 mg/dl 02/19/2024 12:28 [facility] Calcium 8.4(L) 8.5 - 10.5 mg/dL 02/19/2024 12:28 [facility] BUN 70(H) 10 - 26 mg/dL 02/19/2024 12:28 [facility] Creatinine 1.86(H) 0.66 - 1.25 mg/dL 02/19/2024 12:28 [facility] eGFR 35(L) >60 mL/min/1.73 m2 02/19/2024 12:28 [facility] Blood VENOUS BLOOD / Unknown Venipuncture / Unknown 02/19/2024 11:27 EST 02/19/2024 11:49 EST us Marcos Quintero MD CHEMISTRY & BLOOD GAS ORD ERABLES Final Result [facility] [address] [place] [address] * (ABNORMAL) COMPLETE BLOOD COUNT (02/19/2024 11:27 EST) WBC 12.57(H) 4.00 - 10.40 K/cmm 02/19/2024 12:00 [facility] RBC 3.51(L) 4.36 - 5.78 M/cmm 02/19/2024 12:00 [facility] Hemoglobin 11.5(L) 13.8 - 17.3 g/dL 02/19/2024 12:00 [facility] HCT 33.2(L) 39.5 - 50.2 % 02/19/2024 12:00 [facility] MCV 95 81 - 95 fL 02/19/2024 12:00 [facility] MCH 32.8 27.6 - 33.0 pg 02/19/2024 12:00 [facility] MCHC 34.6 32.8 - 36.4 g/dL 02/19/2024 12:00 [facility] RDW-CV 15.2(H) <14.2 % 02/19/2024 12:00 [facility] RDW-SD 52.4(H) <46.0 fl 02/19/2024 12:00 [facility] PLT 148 141 - 377 K/cmm 02/19/2024 12:00 [facility] MPV 11.6 9.5 - 12.7 fL 02/19/2024 12:00 [facility] Blood VENOUS BLOOD / Unknown Venipuncture / Unknown 02/19/2024 11:27 EST 02/19/2024 11:48 EST us Pete Lee DO HEMATOLOGY & PF4 ORDERABLES aSadia l Result [facility] [address] [place] [id number] * XR CHEST PORTABLE 1 VIEW (02/18/2024 15:38 EST) Anatomical Region Laterality Modality Computed Radiogr aphy 02/18/2024 15:4 8 EST Impressions 02/18/2024 15:48 EST Bilateral small pleural effusions and bibasilar opacities compatible with atelectasis. [id number] Narrative 02/18/2024 15:48 EST XR CHEST PORTABLE 1 VIEW ??02/18/2024 3:24 PM Clinical History/comments: hypoxia Comparison: 02/16/2024. Technique: Single portable AP view of the chest. Findings: Lines/tubes/devices: ??None Lungs: Left greater than right basilar opacities Pleura: Bilateral pleural effusions Cardiac and mediastinal contours: Stable Soft tissues and extrathoracic findings: No acute abnormalities Bones: No acute abnormalities Resulting Agency Comment [id number] Procedure Note Gordo Palm MD - 02/18/2024 [...] pleural effusions and bibasilar opacities compatible withatelectasis. [id number] us Marcos Quintero MD IMG DIAGNOSTIC IMAGING OR DERABLES Final Result * VITAMIN D (25,OH) (02/18/2024 6:28 EST) 25OH Vitamin D Tot 38 30 - 100 ng/mL 02/19/2024 10:50 EST [facility] Comment: Vitamin D 25,OH Interpretive Ranges: Deficiency: ??<10.0 ng/mL Insufficiency: ??10.0 - 30.0 ng/mL Sufficiency: ??30.0 - 100.0 ng/mL Toxicity: ??>100.0 ng/mL Blood VENOUS BLOOD / Unknown Venipuncture / Unknown 02/18/2024 6:28 EST 02/18/2024 6:38 EST us Marcos Quintero MD CHEMISTRY & BLOOD GAS ORD ERABLES Final Result [facility] [address] [place] [address] * (ABNORMAL) COMPREHENSIVE METABOLIC PANEL (CMP) (02/18/2024 6:28 EST) Sodium 134(L) 136 - 145 mmol/L 02/18/2024 7:09 [facility] Potassium 4.5 3.5 - 5.0 mmol/L 02/18/2024 7:09 [facility] Chloride 97 96 - 110 mmol/L 02/18/2024 7:09 [facility] CO2 Total 36(H) 22 - 32 mmol/L 02/18/2024 7:09 [facility] Glucose 110(H) 70 - 99 mg/dl 02/18/2024 7:09 [facility] BUN 70(H) 10 - 26 mg/dL 02/18/2024 7:09 [facility] Creatinine 2.11(H) 0.66 - 1.25 mg/dL 02/18/2024 7:09 [facility] eGFR 30(L) >60 mL/min/1.7 3m2 02/18/2024 7:09 [facility] Total Protein 5.0(L) 6.3 - 8.2 g/dL 02/18/2024 7:09 [facility] Albumin 2.7(L) 3.4 - 4.9 g/dL 02/18/2024 7:09 [facility] Alkaline Phosphatase 80 38 - 126 U/L 02/18/2024 7:09 [facility] AST 33 15 - 46 U/L 02/18/2024 7:09 [facility] ALT 36 <50 U/L 02/18/2024 7:09 [facility] Bilirubin, Total <0.5 <1.4 mg/dL 02/18/20 7:09 [facility] Calcium 8.2(L) 8.5 - 10.5 mg/dL 02/18/2024 7:09 [facility] Albumin/Globulin Ratio 1.2 1.0 - 2.5 02/18/2024 7:09 [facility] Anion Gap 1(L) 5 - 14 mmol/L 02/18/2024 7:09 [facility] Blood VENOUS BLOOD / Unknown Venipuncture / Unknown 02/18/2024 6:28 EST 02/18/2024 6:38 EST us Pete Lee DO CHEMISTRY & BLOOD GAS ORDERABLES Final Result Performing Organization Address City/State/[facility] Co de Phone Number [facility] [address] [place] [phone] * (ABNORMAL) COMPLETE BLOOD COUNT (02/18/2024 6:28 EST) WBC 13.90(H) 4.00 - 10.40 K/cmm 02/18/2024 6:45 [facility] RBC 3.41(L) 4.36 - 5.78 M/cmm 02/18/2024 6:45 [facility] Hemoglobin 11.0(L) 13.8 - 17.3 g/dL 02/18/2024 6:45 [facility] HCT 32.3(L) 39.5 - 50.2 % 02/18/2024 6:45 [facility] MCV 95 81 - 95 fL 02/18/2024 6:45 [facility] MCH 32.3 27.6 - 33.0 pg 02/18/2024 6:45 [facility] MCHC 34.1 32.8 - 36.4 g/dL 02/18/2024 6:45 [facility] RDW-CV 14.9(H) <14.2 % 02/18/2024 6:45 [facility] RDW-SD 51.8(H) <46.0 fl 02/18/2024 6:45 [facility] PLT 125(L) 141 - 377 K/cmm 02/18/2024 6:45 [facility] MPV 11.0 9.5 - 12.7 fL 02/18/2024 6:45 [facility] Blood VENOUS BLOOD / Unknown Venipuncture / Unknown 02/18/2024 6:28 EST 02/18/2024 6:32 EST us Pete Lee DO HEMATOLOGY & PF4 ORDERABLES Saadia l Result Performing Organization Address City/[facility] [address]/ZIP Co de Phone Number [facility] [address] [place] [address] * POCT GLUCOSE, INTERFACED (02/17/2024 17:48 EST) Glucose, POC 84 70 - 100 mg/dL 02/17/2024 17:49 [facility] HN LAB POC COMMENT (GLUCOSE) Test Performed by Nursing Services 02/17/2024 17:49 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 No periprosthetic fracture is seen. No acute left hip abnormality is seen. Atherosclerotic calcifications are present bilaterally. [id number] Narrative 02/17/2024 16:13 EST XR HIP RIGHT [...] abnormality is seen. Atherosclerotic calcifications arepresent bilaterally. [id number] Augustine Ceja MD IMG DIAGNOSTIC IMAGING OR [...] is seen. Atherosclerotic calcifications are present bilaterally. [id number] Narrative 02/17/2024 16:13 EST XR HIP RIGHT [...] of the lower pelvis. Resulting Agency Comment [id number] Procedure Note Gordo Palm MD - 02/17/2024 [...] abnormality is seen. Atherosclerotic calcifications arepresent bilaterally. [id number] us Augustine Ceja MD IMG DIAGNOSTIC IMAGING OR DERABLES Final Result * PROTIME (02/17/2024 11:41 EST) I.N.R. 1.0 0.9 - 1.1 Ratio 02/17/2024 12:08 EST [facility] Pro Time 11.2 9.7 - 12.8 secs 02/17/2024 12:08 EST [facility] Blood VENOUS BLOOD / Unknown Venipuncture / Unknown 02/17/2024 11:41 EST 02/17/2024 11:50 EST Narrative [facility] - 02/17/2024 12:08 EST Moderate Intensity Coumadin INR = 2.0-3.0 Adjustments in anticoagulant therapy dose should be based on the INR and NOT on the Protime. us Jason Morse MD HEMATOLOGY & PF4 ORDERABLES Final Result [facility] [address] [place] [address] * MAGNESIUM (02/17/2024 5:58 EST) Magnesium 2.1 1.7 - 2.8 mg/dL 02/17/2024 7:11 [facility] Blood VENOUS BLOOD / Unknown Venipuncture / Unknown 02/17/2024 5:58 EST 02/17/2024 6:07 EST us Marti Horn MD CHEMISTRY & BLOOD GAS ORDERABLES Final Result [facility] [address] [place] [address] * (ABNORMAL) COMPREHENSIVE METABOLIC PANEL (CMP) (02/17/2024 5:58 EST) Pathologist [facility] Sodium 134(L) 136 - 145 mmol/L 02/17/2024 6:18 [facility] Potassium 4.4 3.5 - 5.0 mmol/L 02/17/2024 6:18 [facility] Chloride 100 96 - 110 mmol/L 02/17/2024 6:18 [facility] CO2 Total 30 22 - 32 mmol/L 02/17/2024 6:18 [facility] Glucose 108(H) 70 - 99 mg/dl 02/17/2024 6:18 [facility] BUN 69(H) 10 - 26 mg/dL 02/17/2024 6:18 [facility] Creatinine 2.08(H) 0.66 - 1.25 mg/dL 02/17/2024 6:18 [facility] eGFR 31(L) >60 mL/min/1.7 3m2 02/17/2024 6:18 [facility] Total Protein 5.2(L) 6.3 - 8.2 g/dL 02/17/2024 6:18 [facility] Albumin 2.8(L) 3.4 - 4.9 g/dL 02/17/2024 6:18 [facility] Alkaline Phosphatase 83 38 - 126 U/L 02/17/2024 6:18 [facility] AST 36 15 - 46 U/L 02/17/2024 6:18 [facility] ALT 49 <50 U/L 02/17/2024 6:18 [facility] Bilirubin, Total 0.5 <1.4 mg/dL 02/17/20 6:18 [facility] Calcium 8.7 8.5 - 10.5 mg/dL 02/17/2024 6:18 [facility] Albumin/Globulin Ratio 1.2 1.0 - 2.5 02/17/2024 6:18 [facility] Anion Gap 4(L) 5 - 14 mmol/L 02/17/2024 6:18 [facility] Blood VENOUS BLOOD / Unknown Venipuncture / Unknown 02/17/2024 5:58 EST 02/17/2024 6:07 EST us Pete Lee DO CHEMISTRY & BLOOD GAS ORDERABLES Final Result [facility] [address] [place], [place] [id number] * (ABNORMAL) COMPLETE BLOOD COUNT (02/17/2024 5:58 EST) WBC 16.70(H) 4.00 - 10.40 K/cmm 02/17/2024 6:16 [facility] RBC 3.66(L) 4.36 - 5.78 M/cmm 02/17/2024 6:16 [facility] Hemoglobin 11.7(L) 13.8 - 17.3 g/dL 02/17/2024 6:16 [facility] HCT 33.7(L) 39.5 - 50.2 % 02/17/2024 6:16 [facility] MCV 92 81 - 95 fL 02/17/2024 6:16 [facility] MCH 32.0 27.6 - 33.0 pg 02/17/2024 6:16 [facility] MCHC 34.7 32.8 - 36.4 g/dL 02/17/2024 6:16 [facility] RDW-CV 14.7(H) <14.2 % 02/17/2024 6:16 [facility] RDW-SD 49.7(H) <46.0 fl 02/17/2024 6:16 [facility] PLT 128(L) 141 - 377 K/cmm 02/17/2024 6:16 [facility] MPV 10.6 9.5 - 12.7 fL 02/17/2024 6:16 [facility] Blood VENOUS BLOOD / Unknown Venipuncture / Unknown 02/17/2024 5:58 EST 02/17/2024 6:04 EST us Pete Lee DO HEMATOLOGY & PF4 ORDERABLES Saadia l Result Performing Organization Address City/[facility] [address]/ZIP Co de Phone Number [facility] [address] [place] [address] * (ABNORMAL) POCT GLUCOSE, INTERFACED (02/17/2024 5:58 EST) Pathologist [facility] [place] Glucose, POC 114(H) 70 - 100 mg/dL 02/17/2024 5:59 EST [facility] HN LAB POC COMMENT (GLUCOSE) Test Performed by Nursing Services 02/17/2024 5:59 EST [facility] Blood CAPILLARY BLOOD / Unknown 02/17/2024 5:58 EST 02/17/2024 5:59 EST us Pete Lee DO POINT OF CARE TEST ORDERABLES Fi nal Result Performing Organization Address City/[facility] [address]/ZIP Co de Phone Number [facility] [address] [place] [address] * MRSA PCR (02/17/2024 5:53 EST) MRSA/Staph aureus Result No Staphylococcus aureus detected by PCR 02/17/2024 10:53 EST [facility] Swab BOTH ANTERIOR NARES / Unknown Swab / Unknown 02/17/2024 5:53 EST 02/17/2024 7:50 EST us Pete Lee DO MICROBIOLOGY - GENERAL ORDERABLE S Final Result Performing Organization Address City/[facility] [address]/ZIP Co de Phone Number [facility] [address] [place] [address] * (ABNORMAL) POCT GLUCOSE, INTERFACED (02/16/2024 23:45 EST) Glucose, POC 149(H) 70 - 100 mg/dL 02/16/2024 23:48 EST [facility] HN LAB POC COMMENT (GLUCOSE) Test Performed by Nursing Services 02/16/2024 23:48 EST [facility] Blood CAPILLARY BLOOD / Unknown 02/16/2024 23:45 EST 02/16/2024 23:48 EST us Pete Lee DO POINT OF CARE TEST ORDERABLES Fi nal Result Performing Organization Address [facility] [address] [facility] Co de Phone Number [facility] [address] [place] [address] * TYPE AND SCREEN (02/16/2024 20:00 EST) ABO O 02/16/2024 21:54 EST [facility] Rh Factor Positive 02/16/2024 21:54 EST [facility] Antibody Screen Negative 02/16/2024 21:54 EST [facility] Specimen Expires: 02/19/2024 @ 23:59 02/16/2024 21:54 EST [facility] Blood VENOUS BLOOD / Unknown Venipuncture / Unknown 02/16/2024 20:00 EST 02/16/2024 20:09 EST us Ritesh Cardenas MD BLOOD BANK TESTS Edited Resul t - Final [facility] [place] [place] [address] * CT ANGIO CHEST PE PROTOCOL (02/16/2024 [...] above interpretation and agree with the findings. [id number] Narrative 02/17/2024 10:[address] ANGIO CHEST [...] lesions. Multilevel degenerative changes. Resulting Agency Comment [id number] Procedure Note Sonia Salazar MD - 02/17/2024 [...] the above interpretation andagree with the findings. [id number] us Pete Lee DO IMG CT ORDERABLES [...] left hip. The soft tissues are unremarkable. [id number] Narrative 02/16/2024 18:27 EST XR HIP LEFT 2-3 VIEWS OPTIONAL PELVIS, XR HIP RIGHT 1 VIEW ??02/16/2024 5:52 PM Signs and Symptoms/Comments: right hip pain Comparison: Pelvic x-ray 02/15/2024. Technique: AP orthopedic view of the pelvis which includes an AP view of both hips, with additional AP view of the left hip. Resulting Agency Comment [id number] Procedure Note Sonia Salazra MD - 02/16/2024 XR HIP LEFT 2-3 [...] theleft hip. The soft tissues are unremarkable. [id number] us Ritesh Cardenas MD IMG DIAGNOSTIC IMAGING [...] left hip. The soft tissues are unremarkable. [id number] Narrative 02/16/2024 18:27 EST XR HIP LEFT [...] theleft hip. The soft tissues are unremarkable. [id number] Ritesh Cardenas MD IMG DIAGNOSTIC IMAGING ORDERA BLES Final Result * PROTIME (02/16/2024 17:00 EST) I.N.R. 1.0 0.9 - 1.1 Ratio 02/16/2024 18:17 EST [facility] Pro Time 11.3 9.7 - 12.8 secs 02/16/2024 18:17 EST [facility] Blood VENOUS BLOOD / Unknown Venipuncture / Unknown 02/16/2024 17:00 EST 02/16/2024 17:30 EST Narrative [facility] - 02/16/2024 18:17 EST Moderate Intensity Coumadin INR = 2.0-3.0 Adjustments in anticoagulant therapy dose should be based on the INR and NOT on the Protime. Ritesh Cardenas MD HEMATOLOGY & PF4 ORDERABLES F inal Result [facility] [address] [place] [address] * (ABNORMAL) PTT (02/16/2024 17:00 EST) PTT 20(L) 26 - 37 secs 02/16/2024 18:17 EST [facility] Blood VENOUS BLOOD / Unknown Venipuncture / Unknown 02/16/2024 17:00 EST 02/16/2024 17:30 EST Ritesh Cardenas MD HEMATOLOGY & PF4 ORDERABLES F inal Result Performing Organization Address [facility] [address]/[facility] de Phone Number [facility] [address] [place] [address] * (ABNORMAL) HEMOGLOBIN A1C (02/16/2024 17:00 EST) Hemoglobin A1c 6.1(H) <5.7 % 02/16/2024 21:15 EST [facility] Comment: Glycemic Status References: Normal: ??<5.7% Pre-Diabetes: ??5.7% - 6.4% Diagnostic of Diabetes: ??> or = 6.5% (if confirmed) Est Avg Glucose 128 mg/dL 21:15 EST [facility] Comment:The eAG represents t he A1c result expressed as average glucose in mg/dL. Blood VENOUS BLOOD / Unknown Venipuncture / Unknown 02/16/2024 17:00 EST 02/16/2024 17:16 EST Pete Lee DO CHEMISTRY & BLOOD GAS ORDERABLES Final Result Performing Organization Address [facility] [address] [facility] de Phone Number [facility] [address] [place] [address] * (ABNORMAL) COMPREHENSIVE METABOLIC PANEL (CMP) (02/16/2024 17:00 EST) Sodium 140 136 - 145 mmol/L 02/16/2024 17:35 EST [facility] Potassium 5.2(H) 3.5 - 5.0 mmol/L 02/16/2024 17:35 EST [facility] Chloride 97 96 - 110 mmol/L 02/16/2024 17:35 [facility] CO2 Total 36(H) 22 - 32 mmol/L 02/16/2024 17:35 [facility] Glucose 179(H) 70 - 99 mg/dl 02/16/2024 17:35 [facility] BUN 70(H) 10 - 26 mg/dL 02/16/2024 17:35 [facility] Creatinine 2.54(H) 0.66 - 1.25 mg/dL 02/16/2024 17:35 [facility] eGFR 24(L) >60 mL/min/1.7 3m2 02/16/2024 17:35 [facility] Total Protein 5.4(L) 6.3 - 8.2 g/dL 02/16/2024 17:35 [facility] Albumin 3.0(L) 3.4 - 4.9 g/dL 02/16/2024 17:35 [facility] Alkaline Phosphatase 104 38 - 126 U/L 02/16/2024 17:35 [facility] AST 32 15 - 46 U/L 02/16/2024 17:35 [facility] ALT 50(H) <50 U/L 02/16/2024 17:35 [facility] Bilirubin, Total 0.6 <1.4 mg/dL 02/16/20 17:35 [facility] Calcium 9.1 8.5 - 10.5 mg/dL 02/16/2024 17:35 [facility] Albumin/Globulin Ratio 1.3 1.0 - 2.5 02/16/2024 17:35 [facility] Anion Gap 7 5 - 14 mmol/L 02/16/2024 17:35 [facility] Blood VENOUS BLOOD / Unknown Venipuncture / Unknown 02/16/2024 17:00 EST 02/16/2024 17:15 EST us Pete Lee DO CHEMISTRY & BLOOD GAS ORDERABLES Final Result [facility] [address], [place] [id number] * (ABNORMAL) COMPLETE BLOOD COUNT (02/16/2024 17:00 EST) WBC 19.76(H) 4.00 - 10.40 K/cmm 02/16/2024 17:38 [facility] RBC 3.85(L) 4.36 - 5.78 M/cmm 02/16/2024 17:38 [facility] Hemoglobin 12.5(L) 13.8 - 17.3 g/dL 02/16/2024 17:38 [facility] HCT 37.3(L) 39.5 - 50.2 % 02/16/2024 17:38 [facility] MCV 97(H) 81 - 95 fL 02/16/2024 17:38 [facility] MCH 32.5 27.6 - 33.0 pg 02/16/2024 17:38 [facility] MCHC 33.5 32.8 - 36.4 g/dL 02/16/2024 17:38 [facility] RDW-CV 14.8(H) <14.2 % 02/16/2024 17:38 [facility] RDW-SD 53.3(H) <46.0 fl 02/16/2024 17:38 [facility] PLT 130(L) 141 - 377 K/cmm 02/16/2024 17:38 [facility] MPV 11.4 9.5 - 12.7 fL 02/16/2024 17:38 [facility] Blood VENOUS BLOOD / Unknown Venipuncture / Unknown 02/16/2024 17:00 EST 02/16/2024 17:16 EST us Pete Lee DO HEMATOLOGY & PF4 ORDERABLES Saadia loaiza Result [facility] [address], [place] [id number] * (ABNORMAL) PROCALCITONIN (02/16/2024 17:00 EST) Pathologist [facility] [place] Procalcitonin 0.96(H) See Note ng/mL 02/16/2024 18:25 EST [facility] Comment: NOTE: Reference Range: <0.5 ng/mL - Low risk of severe sepsis >2.0 ng/mL - High risk of severe sepsis Blood VENOUS BLOOD / Unknown Venipuncture / Unknown 02/16/2024 17:00 EST 02/16/2024 17:15 EST Ptee Lee DO CHEMISTRY & BLOOD GAS ORDERABLES Final Result Performing Organization Address [facility] [address] [facility] Co de Phone Number [facility] [address] [place] [address] * HEPARIN LEVEL - UNFRACTIONATED HEPARIN (02/16/2024 17:00 EST) [facility] Heparin Level-UFH 0.05 Therapeutic Range: 0.30 - 0.70 IU/mL 02/16/2024 18:22 EST [facility] Comment:Unfractionated hepar in [...] ORDERABLES Saadia l Result Performing Organization Address [facility] [address]/[facility] Co de Phone Number [facility] [address] [place] [address] * (ABNORMAL) POCT GLUCOSE, INTERFACED (02/16/2024 16:59 EST) [facility] Glucose, POC 177(H) 70 - 100 mg/dL 02/16/2024 17:00 EST [facility] HN LAB POC COMMENT (GLUCOSE) Test Performed by Nursing Services 02/16/2024 17:00 EST [facility] Blood CAPILLARY BLOOD / Unknown 02/16/2024 16:59 EST 02/16/2024 17:00 EST us Pete Lee DO POINT OF CARE TEST ORDERABLES Fi nal Result [facility] [address] [place] [address] * EKG 12-LEAD (02/16/2024 16:44 EST) 02/16/2024 16:4 4 EST Narrative [facility] - 02/28/2024 10:28 EST ? The ? Test Date: ?2024-02-16 Pat Name: ? NOE SUE ? Department: ?? [facility] ? Room: ? M415 Gender: ? Male ? 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 : ?1940 ? Requested By: JESUS FREEMAN Order Number: [id number] ? Zulay CLEMONS: ?? IMANI LOMAS MD ? Measurements Intervals ?Corinne ? Rate: ? 104 ?P: ?73 NC: ? 147 ?QRS: ?-58 QRSD: ? 127 [...] Note Imani Lomas MD - 02/28/2024 The Test Date: 2024-02-16 Pat Name: NOE SUE Department: [place] [address] Room: M415 Gender: Male Shipping And Receiving Operator: : [id number] Requested By: JESUS FREEMAN Order Number: [id number] Reading MD: IMANI LOMAS MD Measurements Intervals Corinne Rate: 104 P: 73 NC: 147 QRS: -58 QRSD: 127 T: 61 [...] preliminary report. Edited by CRISTELA TERRY MD [id number] 20:18:03 EST. I reviewed the tracing and have either agreed or edited the findings inthis report. Electronically Signed On 02-28-2024 10:28:35 EST by CAPO CLEMONS. us Pete Lee DO CARDIAC ECG ORDERABLES Final Res ult [facility] E[facility] documented in this encounter Visit Diagnoses Diagnosis Acute hypoxic respiratory failure ([facility])- Primary Closed right hip fracture, initial encounter ([facility]) Acute hypoxic respiratory failure ([facility]) [J96.01] Osteoporosis with current pathological fracture, unspecified osteoporosis type, initial encounter Chronic obstructive pulmonary disease, unspecified COPD type ([facility]) [J44.9] Pulmonary hypertension ([facility]) [I27.20] Other chronic pulmonary heart diseases Atrial fibrillation, unspecified type ([facility]) [I48.91] Urinary retention [R33.9] Retention of urine, unspecified Hypertension, unspecified type [I10] Thrush [B37.0] Candidiasis of mouth PFO (patent foramen ovale) Ostium secundum type atrial septal defect Pulmonary emphysema, unspecified emphysema type ([facility]) Closed right hip fracture, initial encounter ([facility]) Osteoporosis with current pathological fracture Pulmonary hypertension ([facility]) Other chronic pulmonary heart diseases Chronic obstructive pulmonary disease ([facility]) Chronic airway obstruction, not elsewhere classified Atrial fibrillation ([facility]) Atrial fibrillation Urinary retention Retention of urine, unspecified Hypertension Unspecified essential hypertension Thrush Candidiasis of mouth PFO (patent foramen ovale) Ostium secundum type atrial septal defect documented in this encounter Admitting Diagnoses Diagnosis Acute hypoxic respiratory failure ([facility]) Closed right hip fracture, initial encounter ([facility]) documented in this encounter Administered Medications [...] Patient/family refused) 0739 (Given - Provider: Sherice Mansfield RT)1200 (Canceled Entry - Provider: Batch Job [...] 0.1 mg/mL syringe 0.5 mg 1 024 uirXAHoht-ZVAOPUUmzje-rvmZML LAC-ropivacain e 80 mcg-0.5 mg-30 mg-150 mg [...] documented as of this encounter Care Teams Pulp Refiner Operator Relationship Specialty Start Date End Date Suzie Villagomez MD [address] [place] [address] PCP - General Family Medicine - Primary Care 02/15/24 documented as of this encounter
--- OUTSIDE RECORDS SUMMARY | 2024-04-01 17:53 | XMS_ITS | Referral Summary ---
Author Organization [facility] Address [address] [place] [address] Care Team Providers Care Appeals Coordinator Name Role Phone Suzie Quan MD Primary Care Provider [phone] Encounters Date Type Department Care Team Description 03/14/2024 Orders Only [facility] - [address] [place] [address] Ko Marquis PA-C Closed fracture of right hip with routine healing, subsequent encounter (Primary Dx) 02/16/2024 15:41 EST - 02/29/2024 12:20 EST Hospital Encounter [facility] Unit [address] [place] [address] Ritesh Cardenas MD Clements, MD Ingrid Hauser, MD Taylor Marmolejo, MD Manav Vargas Lee-Anna, MD Farrell, [place], MD Closed right hip fracture, initial encounter ([facility]) (Primary Dx); Acute hypoxic respiratory failure ([facility]) [J96.01]; Osteoporosis with current pathological fracture, unspecified osteoporosis type, initial encounter; Chronic obstructive pulmonary disease, unspecified COPD type ([facility]) [J44.9]; Pulmonary hypertension ([facility]) [I27.20]; Atrial fibrillation, unspecified type ([facility]) [I48.91]; Urinary retention [R33.9]; Hypertension, unspecified type [I10]; Thrush [B37.0]; PFO (patent foramen ovale); Pulmonary emphysema, unspecified emphysema type ([facility]) Discharge Disposition: Nursing Facility (Skilled) 02/27/2024 Telephone [facility] [place] [address] [place] [address] Farnaz Rivas, DO Follow-up; Returning Call 02/23/2024 Telephone [facility] [place] [address] [place] [address] Farnaz Rivas, DO Appointment Related (Called and left message with referral department. With Dr. Quijano message://Farnaz Rivas, DO?Ashley Rae MA/Kevin, looks like patient still in hospital. Please see if PCP willing to address or we can see patient when he is able if desired, I'm happy to discuss with PCP if needed. Thanks!/) 02/17/2024 11:57 EST Anesthesia Event [facility] OR [address] [place] [id number] Jason Morse MD 02/17/2024 11:30 EST - 02/17/2024 15:15 EST Surgery [facility] OR [address] [place] [address] [phone] Augustine Ceja MD Open treatment of right femoral neck fracture with hemiarthroplasty [64186 (CPT??)] 02/16/2024 Travel 02/15/2024 13:50 EST - 02/16/2024 14:42 EST Hospital Encounter [facility] Intensive Care Unit [address] [place] [address] Homer Tan MD Gilkey, Calvin T, MD Swayze-Quinn, Hannah, MD Closed right hip fracture, initial encounter ([facility]) [S72.001A] (Primary Dx); Acute on chronic respiratory failure with hypoxia and hypercapnia ([facility]) [J96.21, J96.22]; Pneumonia due to infectious organism, unspecified laterality, unspecified part of lung [J18.9]; Heart failure, unspecified HF chronicity, unspecified heart failure type ([facility]); Pulmonary HTN ([facility]); Pulmonary emphysema, unspecified emphysema type ([facility]) Discharge Disposition: Short Term Hospital 02/15/2024 Prep for Procedure [facility] Orthopedics & Sport Medicine [address], [address] [place] [address] Buzz Freed MD Closed right hip fracture, initial encounter ([facility]) (Primary Dx) 02/15/2024 11:03 EST - 02/15/2024 13:49 EST Hospital Encounter [facility] [place] Discharge Disposition: Home or Self Care 02/15/2024 10:58 EST - 02/15/2024 11:02 EST Hospital Encounter [facility] [place] Discharge Disposition: Home or Self Care 02/15/2024 10:56 EST - 02/15/2024 10:57 EST Hospital Encounter [facility] [place] Discharge Disposition: Home or Self Care 02/15/2024 10:53 EST - 02/15/2024 10:55 EST Hospital Encounter [facility] [place] Discharge Disposition: Home or [...] nebulizer solutionIndicat ions:Pulmonary emphysema, unspecified emphysema type ([facility]) Take 3 mL by nebulization 4 [...] PFO (patent foramen ovale) 02/27/2024 Atrial fibrillation ([facility]) 02/26/2024 Urinary retention 02/26/2024 Hypertension 02/26/2024 Thrush 02/26/2024 Osteoporosis with current pathological fracture 02/22/2024 Heart failure ([facility]) 02/16/2024 Pulmonary hypertension ([facility]) 02/16/2024 Chronic obstructive pulmonary disease ([facility]) 02/16/2024 Acute hypoxic respiratory failure ([facility]) 11/2023 Closed right hip fracture, initial encounter ( [facility]) 02/15/2024 Acute on chronic respiratory failure with hypoxia and hypercapnia ([facility]) 02/15/2024 Pneumonia due to infectious organism 02/15/2024 Social History Tobacco Use Types Packs/Day Years Used Date Smoking Tobacco: Former Cigarettes Tobacco Cessation:Counseling Given: No Alcohol Use Standard Drinks/Week Comments Never 0 (1 standard drink = 0.6 oz pur e alcohol) [facility] Utilities Answer Date Recorded In the past 12 months has [facility], gas, oil, or water [employer] threatened to shut off services in your [...] any time in the past 12 [place], were you homeless or living in a penitentiary (including now)? No 02/16/2024 [facility] - Inadequate Housing Answer Date Re corded What is your living situation today? I have a [facility] place to live 02/20/2024 Think about [...] Info) Description 04/05/2024 10:15 EST Appointment [facility] [address] [place], [place] [phone] 04/05/2024 10:30 EST Post-op Visit [facility] Orthopedic Trauma - [address] [address] Ko Marquis PA-C [address] [place] [phone] Medical Devices Implanted Type Area Abstract Searcher Device Identifier Shelf Expiration Date Model / Serial / Lot Cement Bone High Viscosity Tobramycin Radiopaque Single Dose [employer] 40gm Simplex [id number] - [id number] Implanted:Qty: 2 on 02/17/2024 by Augustine Ceja MD at [facility] Ortho Implant Right: Hip [facility] [id number] 08/07/2024 [id number] / [id number] Hip Femoral Stem Cmntd 132deg Std Offst Sz 4 [id number] Accolade C [id number] - [id number] Implanted:Qty: 1 on 02/17/2024 by Augustine Ceja MD at [facility] Total Joint Implant Right: Hip [employer] [id number] 01/01/2029 [id number] / [id number] / [id number] Hip Spacer Stem Distal Cemented 11mm Accolade [id number] - [id number] Implanted:Qty: 1 on 02/17/2024 by Augustine Ceja MD at [facility] Total Joint Implant Right: Hip [employer] [id number] 10/23/2028 [id number] / [id number] / [id number] Restrictor Cement Lynn 25mm Distal Fem Hip Recon Surgery St - [id number] Implanted:Qty: 1 on 02/17/2024 by Augustine Ceja MD at [facility] Total Joint Implant Right: Hip [employer] 09/19/2033 [id number] / [id number] / [id number] Hip Head Unipolar Cocr 53mm Unitrax [id number] - [id number] Implanted:Qty: 1 on 02/17/2024 by Augustine Ceja MD at [facility] Total Joint Implant Right: Hip [employer] [id number] 02/07/2028 6942-5-05 / 6942-5-05 [id number] Hip Taper Sleeve Standard Offset Femoral V40 [id number] - [id number] Implanted:Qty: 1 on 02/17/2024 by Augustine Ceja MD at [facility] Total Joint Implant Right: Hip [employer] [id number] 11/05/2028 6942-6-06 6942-6-06 [id number] Procedures Procedure Name Priority Date/Time Associated Diagnosis [...] EST Closed right hip fracture, initial encounter ([facility]) XR HIP LEFT 1 VIEW Routine 02/17/2024 15 :20 EST Closed right hip fracture, initial encounter ([facility]) ANESTHESIA ARTERIAL LINE PLACEMENT Routine 02/17/2024 13:05 EST ANESTHESIA SPINAL BLOCK Routine 02/17/20 24 12:25 EST OPEN TREATMENT, FRACTURE, FEMUR, NECK, WITH INTERNAL FIXATION OR INSERTION OF PROSTHETIC 02/17/2024 11:44 EST Closed right hip fracture, initial encounter ([facility]) PROTIME STAT 02/17/2024 11:41 EST POCT GLUCOSE, [...] 03/04/2024 11:3 9 EST us Scan 2 Counter Pocket Trimmer PROCEDURE/MINOR SURGICAL OR DERABLES Final Result * ECG REPORT - SCANNED (03/04/2024 9:35 EST) 03/04/2024 9:35 EST us Scan 2 Counter Pocket Trimmer PROCEDURE/MINOR SURGICAL OR DERABLES Final Result * ECG REPORT - SCANNED (02/28/2024 10:36 EST) 02/28/2024 10:3 6 EST us Scan 2 Counter Pocket Trimmer PROCEDURE/MINOR SURGICAL OR DERABLES Final Result * (ABNORMAL) COMPLETE BLOOD COUNT (02/28/2024 10:26 EST) Only the most recent of12 resultswithin the time period is included. WBC 16.63(H) 4.00 - 10.40 K/cmm 02/28/2024 11:06 [facility] RBC 3.09(L) 4.36 - 5.78 M/cmm 02/28/2024 11:06 [facility] Hemoglobin 10.3(L) 13.8 - 17.3 g/dL 02/28/2024 11:06 [facility] HCT 30.5(L) 39.5 - 50.2 % 02/28/2024 11:06 [facility] MCV 99(H) 81 - 95 fL 02/28/2024 11:06 [facility] MCH 33.3(H) 27.6 - 33.0 pg 02/28/2024 11:06 [facility] MCHC 33.8 32.8 - 36.4 g/dL 02/28/2024 11:06 [facility] RDW-CV 15.2(H) <14.2 % 02/28/2024 11:06 [facility] RDW-SD 55.3(H) <46.0 fl 02/28/2024 11:06 [facility] PLT 362 141 - 377 K/cmm 02/28/2024 11:06 [facility] MPV 10.1 9.5 - 12.7 fL 02/28/2024 11:06 [facility] Blood VENOUS BLOOD / Unknown Venipuncture / Unknown 02/28/2024 10:26 EST 02/28/2024 10:54 EST Pushpa Welch MD HEMATOLOGY & PF4 ORDERABLES F inal Result [facility] [address] [place], [place] [phone] * (ABNORMAL) BASIC METABOLIC PANEL (BMP) (02/28/2024 10:26 EST) Only the most recent of10 resultswithin the time period is included. Sodium 137 136 - 145 mmol/L 02/28/2024 11:44 [facility] Potassium 3.7 3.5 - 5.0 mmol/L 02/28/2024 11:44 [facility] Chloride 95(L) 96 - 110 mmol/L 02/28/2024 11:44 [facility] CO2 Total 38(H) 22 - 32 mmol/L 02/28/2024 11:44 [facility] Anion Gap 4(L) 5 - 14 mmol/L 02/28/2024 11:44 [facility] Glucose 127(H) 70 - 99 mg/dl 02/28/2024 11:44 [facility] Calcium 8.4(L) 8.5 - 10.5 mg/dL 02/28/2024 11:44 [facility] BUN 34(H) 10 - 26 mg/dL 02/28/2024 11:44 [facility] Creatinine 1.32(H) 0.66 - 1.25 mg/dL 02/28/2024 11:44 [facility] eGFR 53(L) >60 mL/min/1.73 m2 02/28/2024 11:44 [facility] Blood VENOUS BLOOD / Unknown Venipuncture / Unknown 02/28/2024 10:26 EST 02/28/2024 10:55 EST Pushpa Welch MD CHEMISTRY & BLOOD GAS ORDERAB LES Final Result [facility] [address] [place] [address] * (ABNORMAL) NT PRO BNP (02/27/2024 15:55 EST) Only the most recent of2 resultswithin the time period is included. Pathologist [facility] [place] NT-pro BNP 1,210(H) <326 pg/mL 02/27/2024 16:57 EST [facility] Comment: In the acute setting NT-proBNP values <300 pg/mL have a 98% NPV for excluding acute heart failure. In outpatient populations, NT-proBNP values <125 have a 99% NPV for excluding heart failure. Blood VENOUS BLOOD / Unknown Venipuncture / Unknown 02/27/2024 15:55 EST 02/27/2024 16:02 EST us Bryan Weiss MD CHEMISTRY & BLOOD GAS ORDERABL ES Final Result [facility] [address] [place] [address] * TRANSTHORACIC ECHO (TTE) LIMITED W/DOPPLER W/CF W/ CONTRAST (02/27/2024 14:58 EST) Pathologist [facility] [place] LV Diastolic Volume 62 mL [facility] POINT [...] may represent aspiration pneumonitis. Small right effusion. [id number] Narrative 02/26/2024 12:16 EST XR CHEST PORTABLE [...] findings: ??Normal. Bones: Normal. Resulting Agency Comment [id number] Procedure Note Karo Schmidt MD - 02/26/2024 [...] which may representaspiration pneumonitis. Small right effusion. [id number] Pushpa Welch MD IMG DIAGNOSTIC IMAGING ORDERA BLES Final Result * MRSA PCR (02/20/2024 5:04 EST) Only the most recent of2 resultswithin the time period is included. MRSA/Staph aureus Result No Staphylococcus aureus detected by PCR 02/20/2024 13:18 EST [facility] Swab BOTH ANTERIOR NARES / Unknown Swab / Unknown 02/20/2024 5:04 EST 02/20/2024 7:15 EST us Pete Brooke DO MICROBIOLOGY - GENERAL ORDERABLE S Final Result [facility] [address] [place] [address] * ECG REPORT - SCANNED (02/19/2024 14:12 EST) 02/19/2024 14:1 2 EST us Scan 2 Counter Pocket Trimmer PROCEDURE/MINOR SURGICAL OR DERABLES Final Result * XR CHEST PORTABLE 1 VIEW (02/18/2024 15:38 EST) Anatomical Region Laterality Modality Computed Radiogr aphy 02/18/2024 15:4 8 EST Impressions 02/18/2024 15:48 EST Bilateral small pleural effusions and bibasilar opacities compatible with atelectasis. [id number] Narrative 02/18/2024 15:48 EST XR CHEST PORTABLE 1 VIEW ??02/18/2024 3:24 PM Clinical History/comments: hypoxia Comparison: 02/16/2024. Technique: Single portable AP view of the chest. Findings: Lines/tubes/devices: ??None Lungs: Left greater than right basilar opacities Pleura: Bilateral pleural effusions Cardiac and mediastinal contours: Stable Soft tissues and extrathoracic findings: No acute abnormalities Bones: No acute abnormalities Resulting Agency Comment [id number] Procedure Note Gordo Palm MD - 02/18/2024 [...] pleural effusions and bibasilar opacities compatible withatelectasis. [id number] Marcos Quintero MD IMG DIAGNOSTIC IMAGING OR DERABLES Final Result * VITAMIN D (25,OH) (02/18/2024 6:28 EST) 25OH Vitamin D Tot 38 30 - 100 ng/mL 02/19/2024 10:50 EST [facility] Comment: Vitamin D 25,OH Interpretive Ranges: Deficiency: ??<10.0 ng/mL Insufficiency: ??10.0 - 30.0 ng/mL Sufficiency: ??30.0 - 100.0 ng/mL Toxicity: ??>100.0 ng/mL Blood VENOUS BLOOD / Unknown Venipuncture / Unknown 02/18/2024 6:28 EST 02/18/2024 6:38 EST Marcos Quintero MD CHEMISTRY & BLOOD GAS ORD ERABLES Final Result [facility] [address] [place] [address] * (ABNORMAL) COMPREHENSIVE METABOLIC PANEL (CMP) (02/18/2024 6:28 EST) Only the most recent of4 resultswithin the time period is included. Sodium 134(L) 136 - 145 mmol/L 02/18/2024 7:09 [facility] Potassium 4.5 3.5 - 5.0 mmol/L 02/18/2024 7:09 [facility] Chloride 97 96 - 110 mmol/L 02/18/2024 7:09 [facility] CO2 Total 36(H) 22 - 32 mmol/L 02/18/2024 7:09 [facility] Glucose 110(H) 70 - 99 mg/dl 02/18/2024 7:09 [facility] BUN 70(H) 10 - 26 mg/dL 02/18/2024 7:09 [facility] Creatinine 2.11(H) 0.66 - 1.25 mg/dL 02/18/2024 7:09 [facility] eGFR 30(L) >60 mL/min/1.7 3m2 02/18/2024 7:09 [facility] Total Protein 5.0(L) 6.3 - 8.2 g/dL 02/18/2024 7:09 [facility] Albumin 2.7(L) 3.4 - 4.9 g/dL 02/18/2024 7:09 [facility] Alkaline Phosphatase 80 38 - 126 U/L 02/18/2024 7:09 [facility] AST 33 15 - 46 U/L 02/18/2024 7:09 [facility] ALT 36 <50 U/L 02/18/2024 7:09 [facility] Bilirubin, Total <0.5 <1.4 mg/dL 02/18/20 24 7:09 [facility] Calcium 8.2(L) 8.5 - 10.5 mg/dL 02/18/2024 7:09 [facility] Albumin/Globulin Ratio 1.2 1.0 - 2.5 02/18/2024 7:09 [facility] Anion Gap 1(L) 5 - 14 mmol/L 02/18/2024 7:09 [facility] Blood VENOUS BLOOD / Unknown Venipuncture / Unknown 02/18/2024 6:28 EST 02/18/2024 6:38 EST us Pete Miller DO CHEMISTRY & BLOOD GAS ORDERABLES Final Result [facility] [address] [place], [place] [id number] * POCT GLUCOSE, INTERFACED (02/17/2024 17:48 EST) Only the most recent of5 resultswithin the time period is included. Glucose, POC 84 70 - 100 mg/dL 02/17/2024 17:49 EST [facility] HN LAB POC COMMENT (GLUCOSE) Test Performed by Nursing Services 02/17/2024 17:49 EST [facility] Blood CAPILLARY BLOOD / Unknown 02/17/2024 17:48 EST 02/17/2024 17:49 EST us Pete Brooke DO POINT OF CARE TEST ORDERABLES Fi nal Result [facility] [address] [place] [address] * XR HIP RIGHT 1 VIEW (02/17/2024 15:20 EST) Anatomical Region Laterality Modality Lower Extremities Right Computed Radio graphy 02/17/2024 16:1 3 EST Impressions 02/17/2024 16:13 EST FINDINGS/IMPRESSION: 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 No periprosthetic fracture is seen. No acute left hip abnormality is seen. Atherosclerotic calcifications are present bilaterally. [id number] Narrative 02/17/2024 16:13 EST XR HIP RIGHT [...] abnormality is seen. Atherosclerotic calcifications arepresent bilaterally. [id number] Augustine Ceja MD [facility] DIAGNOSTIC IMAGING OR DERABLES Final Result * XR HIP LEFT 1 VIEW (02/17/2024 15:20 EST) Anatomical Region Laterality Modality Lower Extremities Left Computed Radio graphy 02/17/2024 16:1 3 EST Impressions 02/17/2024 16:13 EST FINDINGS/IMPRESSION: 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 No periprosthetic fracture is seen. No acute left hip abnormality is seen. Atherosclerotic calcifications are present bilaterally. [id number] Narrative 02/17/2024 16:13 EST XR HIP RIGHT [...] of the lower pelvis. Resulting Agency Comment [id number] Procedure Note Gordo Palm MD - 02/17/2024 [...] abnormality is seen. Atherosclerotic calcifications arepresent bilaterally. [id number] Augustine Ceja MD [facility] DIAGNOSTIC IMAGING OR DERABLES Final Result * RI ARTL CATHJ/CANNULJ MNTR/TRANSFUSION SPX PRQ (02/17/2024 13:05 EST) Narrative [facility] POINT OF CARE - 02/17/2024 13:05 EST Jason Morse MD ? 02/17/2024 14:40 Arterial Line Placement Date/Time: 02/17/2024 13:05 Staffing Performed: anesthesiologist and resident/KATHERIN/JERRI Performed by: Jason Morse MD Authorized by: [...] Jason Morse MD ANESTHESIA ORDERABLES Final Result [facility] * RI AN SPINAL BLOCK - CATHETER (02/17/2024 12:25 EST) Narrative Lio Billings AA - 02/17/2024 12:25 EST Lio Billings AA ? 02/17/2024 12:28 Spinal Block Start time: 02/17/2024 12:27 End time: 02/17/2024 12:27 Reason for Procedure: ??surgical anesthesia Staffing Performed: resident/ANIMAL CARE SUPERVISOR/JERRI and anesthesiologist Performed by: Lio Billings AA [...] 0.9 - 1.1 Ratio 02/17/2024 12:08 EST [facility] Pro Time 11.2 9.7 - 12.8 secs 02/17/2024 12:08 EST [facility] Blood VENOUS BLOOD / Unknown Venipuncture / Unknown 02/17/2024 11:41 EST 02/17/2024 11:50 EST Narrative [facility] - 02/17/2024 12:08 EST Moderate Intensity Coumadin INR = 2.0-3.0 Adjustments in anticoagulant therapy dose should be based on the INR and NOT on the Protime. Jason Morse MD HEMATOLOGY & PF4 ORDERABLES Final Result Performing Organization Address City/[facility]/ZIP Co de Phone Number [facility] [address] [place] [id number] * MAGNESIUM (02/17/2024 5:58 EST) Magnesium 2.1 1.7 - 2.8 mg/dL 02/17/2024 7:11 EST [facility] Blood VENOUS BLOOD / Unknown Venipuncture / Unknown 02/17/2024 5:58 EST 02/17/2024 6:07 EST Marti Horn MD CHEMISTRY & BLOOD GAS ORDERABLES Final Result [facility] [address] [place] [address] * TYPE AND SCREEN (02/16/2024 20:00 EST) ABO O 02/16/2024 21:54 EST [facility] Rh Factor Positive 02/16/2024 21:54 EST [facility] Antibody Screen Negative 02/16/2024 21:54 EST [facility] Specimen Expires: 02/19/2024 @ 23:59 02/16/2024 21:54 EST [facility] Blood VENOUS BLOOD / Unknown Venipuncture / Unknown 02/16/2024 20:00 EST 02/16/2024 20:09 EST us Ritesh Cardenas MD BLOOD BANK TESTS Edited Resul t - Final [facility] [address] [place] [address] * CT ANGIO CHEST PE PROTOCOL (02/16/2024 [...] above interpretation and agree with the findings. [id number] Narrative 02/17/2024 10:[address] ANGIO CHEST [...] lesions. Multilevel degenerative changes. Resulting Agency Comment [id number] Procedure Note Sonia Salazar MD - 02/17/2024 [...] the above interpretation andagree with the findings. [id number] us Pete Brooke DO IMG CT ORDERABLES Final Result * XR HIP RIGHT 1 VIEW (02/16/2024 17:54 EST) Anatomical Region Laterality Modality Lower Extremities Right Computed Radio graphy 02/16/2024 18:2 7 EST Impressions 02/16/2024 18:27 EST Findings/impression: Redemonstrated right femoral neck fracture, not significantly changed. No left- sided hip fracture or dislocation. Mild degenerative changes of the left hip. The soft tissues are unremarkable. [id number] Narrative 02/16/2024 18:27 EST XR HIP LEFT 2-3 VIEWS OPTIONAL PELVIS, XR HIP RIGHT 1 VIEW ??02/16/2024 5:52 PM Signs and Symptoms/Comments: right hip pain Comparison: Pelvic x-ray 02/15/2024. Technique: AP orthopedic view of the pelvis which includes an AP view of both hips, with additional AP view of the left hip. Resulting Agency Comment [id number] Procedure Note Sonia Salazar MD - 02/16/2024 [...] theleft hip. The soft tissues are unremarkable. [id number] Ritesh Cardenas MD [facility] DIAGNOSTIC IMAGING ORDERA BLES Final Result * XR HIP LEFT 2-3 VIEWS OPTIONAL PELVIS (02/16/2024 17:52 EST) Anatomical Region Laterality Modality Lower Extremities Left Computed Radio graphy 02/16/2024 18:2 7 EST Impressions 02/16/2024 18:27 EST Findings/impression: Redemonstrated right femoral neck fracture, not significantly changed. No left- sided hip fracture or dislocation. Mild degenerative changes of the left hip. The soft tissues are unremarkable. [id number] Narrative 02/16/2024 18:27 EST XR HIP LEFT [...] theleft hip. The soft tissues are unremarkable. [id number] Ritesh Cardenas MD [facility] DI[facility]IC IMAGING ORDERA BLES Final Result * (ABNORMAL) PROCALCITONIN (02/16/2024 17:00 EST) Procalcitonin 0.96(H) See Note ng/mL 02/16/2024 18:25 EST [facility] Comment: NOTE: Reference Range: <0.5 ng/mL - Low risk of severe sepsis >2.0 ng/mL - High risk of severe sepsis Blood VENOUS BLOOD / Unknown Venipuncture / Unknown 02/16/2024 17:00 EST 02/16/2024 17:15 EST us Pete Miller DO CHEMISTRY & BLOOD GAS ORDERABLES Final Result Performing Organization Address [facility] Co de Phone Number [facility] [address] [place] [address] * (ABNORMAL) PTT (02/16/2024 17:00 EST) PTT 20(L) 26 - 37 secs 02/16/2024 18:17 EST [facility] Blood VENOUS BLOOD / Unknown Venipuncture / Unknown 02/16/2024 17:00 EST 02/16/2024 17:30 EST Ritesh Cardenas MD HEMATOLOGY & PF4 ORDERABLES F inal Result Performing Organization Address City/[facility] Co de Phone Number [facility] [address] [place] [address] * HEPARIN LEVEL - UNFRACTIONATED HEPARIN (02/16/2024 17:00 EST) Heparin Level-UFH 0.05 Therapeutic Range: 0.30 - 0.70 IU/mL 02/16/2024 18:22 EST [facility] Comment:Unfractionated hepar in [...] 17:00 EST 02/16/2024 17:30 EST us Pete Brooke DO HEMATOLOGY & PF4 ORDERABLES Saadia l Result Performing Organization Address [facility]/ZIP Co de Phone Number [facility] [address] [place] [address] * (ABNORMAL) HEMOGLOBIN A1C (02/16/2024 17:00 EST) Hemoglobin A1c 6.1(H) <5.7 % 02/16/2024 21:15 EST [facility] Comment: Glycemic Status References: Normal: ??<5.7% Pre-Diabetes: ??5.7% - 6.4% Diagnostic of Diabetes: ??> or = 6.5% (if confirmed) Est Avg Glucose 128 mg/dL 21:15 EST [facility] Comment:The eAG represents t he A1c result expressed as average glucose in mg/dL. Blood VENOUS BLOOD / Unknown Venipuncture / Unknown 02/16/2024 17:00 EST 02/16/2024 17:16 EST Pete Miller DO CHEMISTRY & BLOOD GAS ORDERABLES Final Result Performing Organization Address [facility] Co de Phone Number [facility] [address] [place] [address] * EKG 12-LEAD (02/16/2024 16:44 EST) 02/16/2024 16:4 4 EST Narrative [facility] EKG - 02/28/2024 10:28 EST ? [facility] ? Test Date: ?2024-02-16 Pat Name: ? BI SUE ? Department: ?? Garcia 4 ? Room: ? M415 Gender: ? Male ? Principle Industrial Hygienist: ?? : ?1940 ? Requested By: HEARD PETE Order Number: [id number] ? Zulay MD: ?? IMANI LOMAS MD ? Measurements Intervals ?Onley ? Rate: ? 104 ?P: ?73 RI: ? 147 ?QRS: ?-58 QRSD: ? 127 [...] Note Imani Lomas MD - 02/28/[address] [facility] Test Date: 2024-02-16 Pat Name: BI SUE Department: [place] [address] Room: [facility] Gender: Male Principle Industrial Hygienist: : 1940 Requested By: JESUS FREEMAN Order Number: [id number] Reading MD: IMANI LOMAS MD Measurements Intervals Onley Rate: 104 P: 73 RI: 147 QRS: -58 QRSD: 127 T: 61 [...] preliminary report. Edited by CRISTELA TERRY MD [id number] 20:18:03 EST. I reviewed the tracing and have either agreed or edited the findings inthis report. Electronically Signed On 02-28-2024 10:28:35 EST by CAPO CLEMONS. us Pete Miller DO CARDIAC ECG ORDERABLES Final Res ult [facility] EKG * EXPANDED RESPIRATORY VIRAL PANEL, PCR (DOES NOT INCLUDE INFLUENZA OR RSV) (02/16/2024 12:07 EST) Paraflu Type 1 Rslt (PF1RES) Negative Negative 02/17/2024 1:26 [facility] Paraflu Type 2 Rslt (PF2RES) Negative Negative 02/17/2024 1:26 [facility] Paraflu Type 3 Rslt (PF3RES) Negative Negative 02/17/2024 1:26 [facility] Paraflu Type 4 Rslt Negative Negative 02/16 1:26 [facility] Rhinovirus RNA Rslt (RVRES) Negative Negative 02/17/2024 1:26 [facility] Metapneumovirus RNA Rslt (HMVRES) Negative Negative 02/17/2024 1:26 [facility] Adenovirus DNA Rslt (ADVRES) Negative Negative 02/17/2024 1:26 [facility] Swab NASOPHARYNGEAL STRUCTURE / Unknown Swab / Unknown 02/16/2024 12:07 EST 02/16/2024 12:39 EST us Dominique Goldstein MD MICROBIOLOGY - GENERAL ORDERABLE S Final Result [facility] [address] [place] [address] * MRSA PCR (02/16/2024 11:36 EST) Pathologist [facility] [place] MRSA PCR Not Detected Not Detected 02/16/2024 13:27 EST [facility] Comment:MRSA target DNA is n ot detected (presumed not colonized with MRSA). Swab BOTH ANTERIOR NARES / Unknown Swab / Unknown 02/16/2024 11:36 EST 02/16/2024 11:45 EST us Dominique Goldstein MD MICROBIOLOGY - GENERAL ORDERABLE S Final Result [facility] [address] [place] [address] * STREPTOCOCCUS PNEUMONIAE ANTIGEN, URINE (02/16/2024 11:36 EST) Strep Pneumo Ag Detection, Urine Negative Negative 02/16/2024 12:33 EST [facility] Urine URINE / Unknown Urine Collect / Unknown 02/16/2024 11:36 EST 02/16/2024 11:45 EST [facility] LABORATORY SERVICES - 02/16/2024 12:33 EST Presumptive negative for pneumococcal pneumonia, suggesting no current or recent infection. ??Infection due to S.pneumoniae cannot be ruled out since the antigen present in the sample may be below detection limit of the test. Dominique Goldstein MD MICROBIOLOGY - GENERAL ORDERABLE S Final Result Performing Organization Address [facility] Co de Phone Number [facility] [address] [place] [address] * LEGIONELLA ANTIGEN DETECTION, URINE (02/16/2024 11:36 EST) Legionella Antigen Detection Negative Negative 02/16/2024 12:33 EST [facility] Urine URINE / Unknown Urine Collect / Unknown 02/16/2024 11:36 EST 02/16/2024 11:45 EST [facility] LABORATORY SERVICES - 02/16/2024 12:33 EST Negative [...] ORDERABLE S Final Result Performing Organization Address [facility]/ZIP Co de Phone Number [facility] [address] [place] [address] * XR CHEST PORTABLE 1 VIEW (02/16/2024 10:59 EST) Anatomical Region Laterality Modality Computed Radiogr aphy 02/16/2024 11:0 5 EST Impressions 02/16/2024 11:05 EST Small bilateral pleural effusions. Slight interval increase in patchy airspace opacities at both lung bases and in the suprahilar right lung. [id number] Narrative 02/16/2024 11:05 EST XR CHEST PORTABLE [...] findings: ??Normal. Bones: Normal. Resulting Agency Comment [id number] Procedure Note Aaron Boone MD - 02/16/2024 [...] bases and in the suprahilar right lung. [id number] us Leda Ng MD IM DIAGNOSTIC IMAGING OR DERABLES Final Result * ECG REPORT - SCANNED (02/16/2024 10:05 EST) 02/16/2024 10:0 5 EST us Scan 2 Counter Pocket Trimmer PROCEDURE/MINOR SURGICAL OR DERABLES Final Result * [...] Result [facility] [address] [place] [address] * TRANSTHORACIC ECHO (TTE) COMPLETE W/DOPPLER W/CF NO CONTRAST (02/16/2024 6:35 EST) Pathologist [facility] [place] Triscuspid Valve Regurgitation Peak Gradient 73.5 mmHg [...] Images were obtained using cardiac ultrasound machine [id number]. us Homer Tan MD CARDIAC ECHO ORDERABLES Final R esult * (ABNORMAL) POCT BLOOD GAS, CG8 I-STAT (02/16/2024 5:41 EST) Only the most recent of3 resultswithin the time period is included. pH, Venous, i-STAT 7.44(H) 7.31 - 7.41 02/16/2024 5:43 [facility] pCO2, Venous, i-STAT 45 41 - 51 mmHg 02/16/2024 5:43 [facility] pO2, Venous, i-STAT 41 30 - 50 mmHg 02/16/2024 5:43 [facility] TCO2, Venous, i-STAT 32(H) 22 - 28 mmol/L 02/16/2024 5:43 [facility] O2 Saturation, Venous, i-STAT 78 60 - 85 % 02/16/2024 5:43 [facility] Base Excess(+) / Deficit(-), Venous, i-STAT 6(H) -2 - 3 mmol/L 02/16/2024 5:43 EST [facility] Blood VENOUS BLOOD / Unknown 02/16/2024 5:41 EST 02/16/2024 5:43 EST Narrative [facility] - 02/16/2024 5:43 EST Test Performed by Respiratory us Lacey Hassan DO POINT OF CARE TEST ORDERABL ES Final Result Performing Organization Address [facility] Co de Phone Number [facility] [address] [place] [address] * CK (02/16/2024 5:37 EST) Only the [...] ORDERAB LES Final Result Performing Organization Address [facility]ATORY SERVICES [address] [place] [address] * HN LAB CBC SMEAR REVIEW (02/16/2024 5:36 EST) Differential Comment Slide was examined by a technologist to verify the WBC and/or platelet count. 02/16/2024 6:01 EST [facility] Blood VENOUS BLOOD / Unknown Venipuncture / Unknown 02/16/2024 5:36 EST 02/16/2024 5:43 EST us Homer Tan MD HEMATOLOGY & PF4 ORDERABLES Fin al Result Performing Organization Address [facility] Co de Phone Number [facility] [address] [place] [address] * EKG 12-LEAD (02/15/2024 16:26 EST) 02/15/2024 16:2 6 EST [facility] - 02/16/2024 9:57 EST ? [facility] ? Test Date: ?2024-02-15 Pat Name: ? BI SUE ? Department: ? Room: ? 305 Gender: ? Male ? Principle Industrial Hygienist: ?? CS : ?1940 ? Requested By: YURY DOMINIQUE Order Number: [id number] ? Reading MD: ?? CARLOS ALBERTO REYNOLDS MD ? Measurements Intervals ?Onley ? Rate: ? 110 ?P: ?77 RI: ? 138 ?QRS: ?-19 QRSD: ? 120 [...] Note Carlos Alberto Reynolds MD - 02/16/2024 [facility] Test Date: 2024-02-15 Pat Name: BI SUE Department: Room: [facility] Gender: Male Principle Industrial Hygienist: : 1940 Requested By: YURY NAYLOR Order Number: [id number] Zulay MD: CARLOS ALBERTO REYNOLDS MD Measurements Intervals Onley Rate: 110 P: 77 RI: 138 QRS: -19 QRSD: 120 T: 84 [...] MD CARDIAC ECG ORDERABLES Final Res ult [facility] * HOLD LAVENDER TOP (02/15/2024 15:19 EST) Hold Hold 02/15/2024 16:31 [facility] Blood VENOUS BLOOD / Unknown Venipuncture / Unknown 02/15/2024 15:19 EST 02/15/2024 15:25 EST us Krystian Anne MD LAB INFO SERVICE AND SUPPORT & PHONE RESULT Final Result Performing Organization Address City/[facility]/ZIP Co de Phone Number [facility] [address] [place] [address] * HOLD GREEN TOP (02/15/2024 15:19 EST) Hold Hold 02/15/2024 16:31 [facility] Blood VENOUS BLOOD / Unknown Venipuncture / Unknown 02/15/2024 15:19 EST 02/15/2024 15:25 EST us Krystian Anne MD LAB INFO SERVICE AND SUPPORT & PHONE RESULT Final Result Performing Organization Address City/[facility]/ZIP Co de Phone Number [facility] [address] [place] [address] * (ABNORMAL) COMPLETE BLOOD COUNT AND DIFFERENTIAL (02/15/2024 15:19 EST) WBC 21.84(H) 4.00 - 10.40 K/cmm 02/15/2024 16:30 [facility] RBC 4.54 4.36 - 5.78 M/cmm 02/15/2024 16:30 [facility] Hemoglobin 14.5 13.8 - 17.3 g/dL 02/15/2024 16:30 [facility] HCT 44.8 39.5 - 50.2 % 02/15/2024 16:30 [facility] MCV 99(H) 81 - 95 fL 02/15/2024 16:30 [facility] MCH 31.9 27.6 - 33.0 pg 02/15/2024 16:30 [facility] MCHC 32.4(L) 32.8 - 36.4 g/dL 02/15/2024 16:30 [facility] RDW-CV 14.9(H) <14.2 % 02/15/2024 16:30 [facility] RDW-SD 54.5(H) <46.0 fl 02/15/2024 16:30 [facility] PLT 151 141 - 377 K/cmm 02/15/2024 16:30 [facility] MPV 11.6 9.5 - 12.7 fL 02/15/2024 16:30 [facility] % Neutrophils 89.3 Not Indicated % 02/15/2024 16:30 [facility] % Lymphocytes 3.1 Not Indicated % 02/15/2024 16:30 [facility] % Monocytes 6.6 Not Indicated % 02/15/2024 16:30 [facility] % Eosinophils 0.0 Not Indicated % 02/15/2024 16:30 [facility] % Basophils 0.2 Not Indicated % 02/15/2024 16:30 [facility] % Immature Grans 0.8 <0.9 % 02/15/2024 16:30 [facility] Absolute Neutrophils 19.49(H) 2.20 - 8.85 K/cmm 02/15/2024 16:30 [facility] Absolute Lymphocytes 0.67(L) 1.09 - 3.30 K/cmm 02/15/2024 16:30 [facility] Absolute Monocytes 1.45(H) 0.10 - 0.80 K/cmm 02/15/2024 16:30 [facility] Absolute Eosinophils 0.00(L) 0.03 - 0.61 K/cmm 02/15/2024 16:30 [facility] ABS Basophils 0.05 0.01 - 0.11 K/cmm 02/15/2024 16:30 [facility] Absolute Immature Grans 0.18(H) 0.00 - 0.06 K/cmm 02/15/2024 16:30 [facility] Type of Differential: Auto 02/15/2024 16:30 [facility] Blood VENOUS BLOOD / Unknown Venipuncture / Unknown 02/15/2024 15:19 EST 02/15/2024 15:25 EST us Dominique Goldstein MD PACKAGES & DNA PROBE ORDERABLES Final Result Performing Organization Address City/[facility]/ZIP Co de Phone Number [facility] [address] [place] [address] * SARS COV2, FLU A/B, RSV DETECT BY PCR (02/15/2024 15:13 EST) FLU A RNA Result (FLARES) Negative Negative 02/15/2024 16:22 [facility] FLU B RNA Result (FLBRES) Negative Negative 02/15/2024 16:22 [facility] RSV RNA Result (RSVRES) Negative Negative 02/15/2024 16:22 [facility] COVID-19 rt-PCR Result Negative Negative 02/15/2024 16:22 [facility] Comment: The 2019 novel coronavirus (SARS-CoV-2) target nucleic acids are not detected. Performed on the [employer] GeneXpert Instrument Swab NASOPHARYNGEAL STRUCTURE / Unknown Swab / Unknown 02/15/2024 15:13 EST 02/15/2024 15:18 EST us Krystian Anne MD MICROBIOLOGY - GENERAL ORDERA BLES Final Result Performing Organization Address City/[facility]/ZIP Co de Phone Number [facility] [address] [place] [address] * CT OUTSIDE IMAGES ABDOMEN PELVIS (02/15/2024 [...] from Last 3 Months Insurance MEDICARE MEDICARE [facility] Advance Directives For more information, please contact: [phone] * Limitation of Treatment (Latest Code Status [...] Made the Decision? Default/Not Discussed Care Teams Appeals Coordinator Relationship Specialty Start Date End Date Suzie Quan MD [address] [place] [address] PCP - General Family Medicine - Primary Care 02/15/24
--- OUTSIDE RECORDS SUMMARY | 2024-04-01 17:53 | XMS_ITS | Encounter Summary ---
Author Organization [facility] Address [address] [place] [address] Care Team Providers Care Surgical Scrub Technologist Name Role Phone Suzie Quan MD Primary Care Provider [phone] Encounter Details Date Type Department Care Team (Late st Contact Info) Description 03/14/2024 Orders Only [facility] Hand & Upper Extremity Program - [address] [place] [address] Ko Marquis PA-C [address] [place] [address] Closed fracture of right hip with routine healing, subsequent encounter (Primary Dx) Social History Tobacco Use Types Packs/Day Years Used Date Smoking Tobacco: Former Cigarettes Alcohol Use Standard Drinks/Week Comments Never 0 (1 standard drink = 0.6 oz pur e alcohol) [facility] Utilities Answer Date Recorded In the past 12 months has e [employer], gas, oil, or water [employer] threatened to shut off services in your [...] you homeless or living in a senior living (including now)? No 02/16/2024 [facility] - Inadequate Housing Answer Date Re corded What is your living situation today? I have a [facility] live 02/20/2024 Think about [...] Contact Info) Description 04/05/2024 10:15 EST Appointment [facility] Xray [address] [place] [address] 04/05/2024 10:30 EST Post-op Visit [facility] Orthopedic Trauma - [address] [address] Ko Marquis PA-C [address] [place] [phone] Scheduled Orders Name Type Priority Associated Diagnoses Orde r Schedule XR HIP RIGHT 2-3 VIEWS OPTIONAL PELVIS Imaging Routine Closed fracture of right hip with routine healing, subsequent encounter Expected: 04/05/2024 documented as of this encounter Visit Diagnoses Diagnosis Closed fracture of right hip with routine healing, subsequent encounter- Primary documented in this encounter Care Teams Surgical Scrub Technologist Relationship Specialty Start Date End Date Suzie Quan MD [address] [place] [address] PCP - General Family Medicine - Primary Care 02/15/24 documented as of this encounter
--- OUTSIDE RECORDS SUMMARY | 2024-04-01 17:54 | XMS_ITS | Encounter Summary ---
Author Organization [facility] Address [address] [place] [address] Care Team Providers Care Chemicals Distiller Name Role Phone Suzie Quan MD Primary Care Provider [phone] Reason for Visit * Reason Onset Date [...] (Late st Contact Info) Description 02/23/[address] [facility] Endocrinology - [facility] [address] [place] [address] Farnaz Rivas, DO [address] [facility] [address] [place] [address] Appointment Related (Called and left [...] drink = 0.6 oz pur e alcohol) [facility] Utilities Answer Date Recorded In the past 12 months has th e electric, gas, oil, or water [employer] threatened to shut off services in your [...] any time in the past 12 m [facility], were you homeless or living in a fci (including now)? No 02/16/2024 [facility] - Inadequate Housing Answer Date Re corded What is your living situation today? I have a [facility] place to live 02/20/2024 Think about [...] Assessment Author No 02/16/2024 16:00 EST Suma pSring RN * Are you blind or do [...] Ashley Rae MA - 02/26/2024 1042 EST [facility] called automotive service writer back. Spoke with Aria from PCP [...] 04/05/2024 10:15 EST Appointment [facility] Xray [address] [place] [phone] 04/05/2024 10:30 EST Post-op Visit [facility] Orthopedic Trauma - [address] [phone] Ko Marquis PA-C [address] [place] [address] documented as of this encounter Visit Diagnoses Not on filedocumented in this encounter Care Teams Chemicals Distiller Relationship Specialty Start Date End Date Suzie Quan MD [address] [place] [id number] PCP - General Family Medicine - Primary Care 02/15/24 documented as of this encounter
--- OUTSIDE RECORDS SUMMARY | 2024-04-01 17:54 | XMS_ITS | Encounter Summary ---
Author Organization [facility] Address [address] [place] [address] Care Team Providers Care Risk Consulting Treasury Director Name Role Phone Suzie Quan MD Primary Care Provider [phone] Reason for Referral * (Routine/Next Available) - Receiving Office to Obtain Authorization Specialty Diagnoses / Procedures Referred By Contac t Referred To Contact Procedures CT OUTSIDE IMAGES ABDOMEN PELVIS Imaging, External Referral ID Status Reason Start Date Expiration Date Visits Requested Visits Authorized [id number] Receiving Office to Obtain Authorization 02/15/2024 1 1 Reason for Visit * (Routine/Next Available) - Receiving Office to Obtain Authorization Specialty Diagnoses / Procedures Referred By Contac t Referred To Contact Procedures CT OUTSIDE IMAGES ABDOMEN PELVIS Imaging, External Referral ID Status Reason Start Date Expiration Date Visits Requested Visits Authorized [id number] Receiving Office to Obtain Authorization 02/15/2024 1 1 Encounter Details Date Type Department Care Team (Latest Contact Info) Description 02/15/2024 11:03 EST - 02/15/2024 13:49 EST Hospital Encounter [facility] Secondary [place] Discharge Disposition: Home or Self Care Social History Tobacco Use Types Packs/Day Years Used Date Smoking Tobacco: Former Cigarettes Alcohol Use Standard Drinks/Week Comments Never 0 (1 standard drink = 0.6 oz pur e alcohol) [facility] Utilities Answer Date Recorded In the [...] any time in the past 12 m [facility], were you homeless or living in a senior living (including now)? No 02/16/2024 Interpersonal Safety Answer [...] Info) Description 04/05/2024 10:15 EST Appointment [facility] Xray [address] [place] [phone] 04/05/2024 10:30 EST Post-op Visit [facility] Orthopedic Trauma - [place] [address] [place] [address] Ko Marquis PA-C [address] [place] [address] documented as of this encounter [...] on filedocumented in this encounter Care Teams Risk Consulting Treasury Director Relationship Specialty Start Date End Date Suzie Quan MD [address] [place] [address] PCP - General Family Medicine - Primary Care 02/15/24 documented as of this encounter
--- OUTSIDE RECORDS SUMMARY | 2024-04-01 17:54 | XMS_ITS | Encounter Summary ---
Author Organization [facility] Address [address] [place] [address] Care Team Providers Care Steam Fitter Helper Name Role Phone Suzie Quan MD Primary Care Provider [phone] Encounter Details Date Type Department Care Team (Latest Contact Info) Description 02/16/2024 Travel Social History Tobacco Use Types Packs/Day Years Used Date Smoking Tobacco: Former Cigarettes Alcohol Use Standard Drinks/Week Comments Never 0 (1 standard drink = 0.6 oz pur e alcohol) [facility] Utilities Answer Date Recorded In the past 12 months has th e electric, gas, oil, or water [employer] threatened to shut off services in your [...] any time in the past 12 m [facility], were you homeless or living [...] Contact Info) Description 04/05/2024 10:15 EST Appointment [employer] Xray [address] [address] 04/05/2024 10:30 EST Post-op Visit [facility] Orthopedic Trauma - [address] [address] Ko Marquis PA-C [address] [place] [address] documented as of this encounter Visit Diagnoses Not on filedocumented in this encounter Additional Health Concerns Infection Onset Date Last Indicated Resolved Time Respiratory rule-out Comment:Negative testing 02/16/2024 02/16/2024 02/17/2024 7:26 EST documented as of this encounter Care Teams Steam Fitter Helper Relationship Specialty Start Date End Date Suzie Quan MD [address] [place] [address] PCP - General Family Medicine - Primary Care 02/15/24 documented as of this encounter
--- OUTSIDE RECORDS SUMMARY | 2024-04-01 17:54 | XMS_ITS | Encounter Summary ---
Author Organization [facility] Address [address] [place] [address] Care Team Providers Care Police Crime Scene Technician Name Role Phone Suzie Quan MD Primary Care Provider [phone] Reason for Visit * Auth/Cert (Routine) Specialty Diagnoses / Procedures Referred By Conthank t Referred To Contact Diagnoses Acute hypoxic respiratory failure ([facility]) Hip fracture Referral ID Status Reason Start Date Expiration Date Visits Re quested Visits Authorized [id number] 1 1 Encounter Details Date Type Department Care Team (Late st Contact Info) Description 02/17/2024 11:57 EST Anesthesia Event [facility] [address] [place], [place] [id number] Jason Morse MD [address] [place] [address], [address] [place] [phone] Anesthesia Record Procedure Summary Procedure Name Responsible [...] drink = 0.6 oz pur e alcohol) [facility] Utilities Answer Date Recorded In the past 12 months has [employer], gas, oil, or water [employer] threatened to shut off services in your [...] any time in the past 12 m [facility], were you homeless or living in a jail (including now)? No 02/16/2024 Interpersonal Safety Answer [...] Date/Time: 02/17/2024 13:05 Staffing Performed: anesthesiologist and resident/LEADED GLASS INSTALLER/AA Performed by: Jason Morse MD Authorized by: [...] Reason for Procedure: surgical anesthesia Staffing Performed: resident/LEADED GLASS INSTALLER/AA and anesthesiologist Performed by: Lio Billings AA [...] atrial fibrillation [not anticoagulated], who presented to [facility] s/p fall and was found to have R femoral neck fracture... [facility] ED labs notable for WBC 22, procal 3, creatinine 3 (baseline ~1), and potassium 6. He was subsequently transferred to [facility] 02/14 for surgical management. On [...] -->0.244. He was confirmed DNR/DNI. Transferred from [facility] to [facility] for preoperative optimization. Granddaughter conforms DNR/DNI [...] Yes - via femoral block (SIFI vs AGUSTNI) Anesthesia plan and risks discussed. Informed consent [...] Info) Description 04/05/2024 10:[address] [facility] Xray [address] [place], [place] [id number] 04/05/2024 10:30 EST Post-op Visit [facility] - [facility] [address] [place], [place] [id number] Ko Marquis PA-C [address] [place] [phone] documented as of this encounter Procedures Procedure Name Priority Date/Time Associated Diagnosis Comments ANESTHESIA ARTERIAL LINE PLACEMENT Routine 02/17/2024 13:05 EST ANESTHESIA SPINAL BLOCK Routine 02/17/2024 12:25 EST documented in this encounter Results * AR ARTL CATHJ/CANNULJ MNTR/TRANSFUSION SPX PRQ (02/17/2024 13:05 EST) Narrative [facility] POINT OF CARE - 02/17/2024 13:05 EST [...] Final Result [facility] POINT OF CARE * AR AN SPINAL BLOCK - CATHETER (02/17/2024 12:25 EST) Narrative Lio Billings AA - 02/17/2024 12:25 EST Lio Billings AA ? 02/17/2024 12:28 Spinal Block Start time: 02/17/2024 12:27 End time: 02/17/2024 12:27 Reason for Procedure: ??surgical anesthesia Staffing Performed: resident/LEADED GLASS INSTALLER/JERRI and anesthesiologist Performed by: Lio Billings AA [...] mg documented in this encounter Care Teams Police Crime Scene Technician Relationship Specialty Start Date End Date Suzie Quan MD [address] [place] [id number] PCP - General Family Medicine - Primary Care 02/15/24 documented as of this encounter
--- OUTSIDE RECORDS SUMMARY | 2024-04-01 17:54 | XMS_ITS | Encounter Summary ---
Author Organization [facility] Address [address] [place] [address] Care Team Providers Care Logging Operations Inspector Name Role Phone Suzie Quan MD Primary Care Provider [phone] Encounter Details Date Type Department Care Team (Late st Contact Info) Description 02/15/2024 Prep for Procedure [facility] Orthopedics & Sport Medicine [address] [place] [address] Buzz Freed MD [address] [facility] [address] [place] [address] Closed right hip fracture, initial encounter ([facility]) (Primary Dx) Social History Tobacco Use Types Packs/Day Years Used Date Smoking Tobacco: Former Cigarettes Alcohol Use Standard Drinks/Week Comments Never 0 (1 standard drink = 0.6 oz pur e alcohol) [facility] Utilities Answer Date Recorded In the past 12 months has e [employer], gas, oil, or water [employer] threatened to shut off services in your [...] were you homeless or living in a longterm (including now)? No 02/16/2024 Interpersonal Safety Answer [...] 04/05/2024 10:15 EST Appointment [facility] Xray [address] [place] [address] 04/05/2024 10:30 EST Post-op Visit [facility] Orthopedic Trauma - [address] [address] Ko Marquis PA-C [address] [place] [phone] documented as of this encounter Visit Diagnoses Diagnosis Closed right hip fracture, initial encounter ([facility])- Primary documented in this encounter Additional Health Concerns Infection Onset Date Last Indicated Resolved Time R/O COVID-19 02/15/2024 02/15/2024 02/15/2024 16:2 2 EST documented as of this encounter Care Teams Logging Operations Inspector Relationship Specialty Start Date End Date Suzie Quan MD [address] [place] [address] PCP - General Family Medicine - Primary Care 02/15/24 documented as of this encounter
--- OUTSIDE RECORDS SUMMARY | 2024-04-01 17:54 | XMS_ITS | Encounter Summary ---
Author Organization [facility] Address [address] [place] [address] Care Team Providers Care Stonecutter Assistant Name Role Phone Suzie Quan MD Primary Care Provider [phone] Reason for Visit * Reason Onset Date Comments Follow-up 02/27/2024 Returning Call 03/13/2024 Encounter Details Date Type Department Care Team (Late st Contact Info) Description 02/27/2024 Telephone [facility] Endocr[facility] - [facility] [address] [place] [address] Farnaz Rivas, DO [address] [facility] [address] [place] [phone] Follow-up; Returning Call Social History Tobacco Use Types Packs/Day Years Used Date Smoking Tobacco: Former Cigarettes Alcohol Use Standard Drinks/Week Comments Never 0 (1 standard drink = 0.6 oz pur e alcohol) [facility] Utilities Answer Date Recorded In the past 12 months has [employer], gas, oil, or water [employer] threatened to shut off services in your [...] a long term (including now)? No 02/16/2024 [facility] - Inadequate Housing Answer Date Re corded What is your living situation today? I have a [facility] place to live 02/20/2024 Think about the [...] office [place] the [place] to [place]. Caller states they don't have follow-ups scheduled so they would like Dr. Rivas to review with the patient. Please call back if further information is needed. * Telephone Encounter - Ashley Rae MA - 02/28/2024 1532 EST Called PCP office back (Wilberto) Left message to return my call [phone]. Does PCP want us to follow up with patient or are they willing to do it * Telephone Encounter - Taqueria Hobbs - 02/27/2024 1142 EST Pcp office calling to speak with Ashley. Please contact wilberto at [phone] ext: [phone] documented in this encounter Plan of Treatment Upcoming Encounters Date Type Department Care Team (Late st Contact Info) Description 04/05/2024 10:15 EST Appointment [facility] Xray [address] [place] [address] 04/05/2024 10:30 EST Post-op Visit [facility] Orthopedic Trauma - [facility] [address] [place] [address] Ko Marquis PA-C [address] [place] [phone] documented as of this encounter Visit Diagnoses Not on filedocumented in this encounter Care Teams Stonecutter Assistant Relationship Specialty Start Date End Date Suzie Quan MD [address] [place] [phone] PCP - General Family Medicine - Primary Care 02/15/24 documented as of this encounter
--- OUTSIDE RECORDS SUMMARY | 2024-04-01 17:54 | XMS_ITS | Encounter Summary ---
Author Organization [facility] Address [address] [place] [address] Care Team Providers Care Precast Molder Name Role Phone Suzie Villagomez MD Primary Care Provider [phone] Reason for Visit * Auth/Cert (Routine) Specialty Diagnoses / Procedures Referred By Conthank t Referred To Contact Diagnoses Closed right hip fracture, initial encounter ([facility]) Hip fracture Referral ID Status Reason Start Date Expiration Date Visits Re quested Visits Authorized [id number] 1 1 Encounter Details Date Type Department Care Team (Latest Contact Info) Description 02/15/2024 13:50 EST - 02/16/2024 14:42 EST Hospital Encounter [facility] Intensive Care Unit [address] [place] [id number] Homer Tan MD [address] [place] [address] [phone] Krystian Anne MD [address] [place] [phone] Leda Ng MD [address] [place] [phone] Closed right hip fracture, initial encounter ([facility]) [S72.001A] (Primary Dx); Acute on chronic respiratory failure with hypoxia and hypercapnia ([facility]) [J96.21, J96.22]; Pneumonia due to infectious organism, unspecified laterality, unspecified part of lung [J18.9]; Heart failure, unspecified HF chronicity, unspecified heart failure type (HCC-CMS); Pulmonary HTN (HCC-CMS); Pulmonary emphysema, unspecified emphysema type ([facility]) Discharge Disposition: Short Term Hospital Social History Tobacco Use Types Packs/Day Years Used Date Smoking Tobacco: Former Cigarettes Tobacco Cessation:Counseling Given: No Alcohol Use Standard Drinks/Week Comments Never 0 (1 standard drink = 0.6 oz pur e alcohol) [facility] Utilities Answer Date Recorded In the past 12 months has th e [employer], gas, oil, or water company threatened to [...] in the past 12 m [facility], were you homeless or living in a [...] Date: 02/16/24 Disposition (location):Transfer to ICU at [facility] Dr Cardenas accepting physician Condition at Discharge: Critical - Severe Pulmonary HTN on High Flow Reason for Admission (chief complaint):Closed right hip fracture Principal/Final Diagnosis: Closed right hip fracture, initial encounter ([facility]) Additional Problems Managed in the Hospital: Active Hospital Problems Diagnosis Date Noted *Closed right hip fracture, initial encounter ([facility]) 02/15/2024 Heart failure ([facility]) 02/16/2024 Pulmonary HTN ([facility]) 02/16/2024 Pulmonary emphysema ([facility]) 02/16/2024 Acute on chronic respiratory failure with hypoxia and hypercapnia ([facility]) 02/15/2024 Pneumonia due to infectious organism 02/15/2024 Resolved Hospital Problems No resolved problems to display. Transition of care: [facility] Transition of Care report automatically routed to [...] Severe Pulmonary Hypertension patient is transferring to [facility] for further optimization and stabilization prior to [...] (no record of anticoagulation in records from [facility]), who presents as a transfer from [facility] for surgical management of a right femoral neck fracture after a fall. Anesthesia at [facility] was uncomfortable with doing surgery there due to his oxygen requirements baseline and he has transferred here for surgical and anesthesiology evaluation. Workup in the ED at [facility] was notable for white blood cell count 22,000, procalcitonin 3, creatinine 3, and potassium of 6. He was reported to have a baseline creatinine of about 1. He has no prior records available in our chart or in care everywhere. On arrival to [facility] he reports falling two days ago. He said he felt dizzy/lightheaded before falling and lost his balance. He denies tripping and was on the ground for 2-3 hours crawling around on his knees. He denies any recent fever, chills, chest pain, shortness of breath, or cough. He says thathe started to cough at [facility] once he was given a breathing treatment. He said he wears 3-4L O2 at home intermittently. He denies being on apixaban or any other blood thinner. His reported medications are aspirin, amlodipine, and metoprolol. Soon after arrival at [facility] he became hypoxic and was placedon increasing O2 up to 10L via oxymask and was then transferred up to the ICU. He is requesting DNR/ DNI. Hospital Course: Acute on chronically ill 83 y.o. male with a PMHx of COPD with chronic hypoxic respiratory failure (on 3-5 L oxygen at baseline) and atrial fibrillation on aspirin (no record of anticoagulation in records from [facility]), and hypertension who presented as a transfer from [facility] for surgical management of a right femoral neck fracture after a fall. Anesthesia at [facility] was uncomfortable with doing surgery there due [...] dysfunctiondiltiazem infusion was discontinued. ECHO completed at [facility] on 02/16/24 suggesting severe pulmonary hypertension. Given need for invasivemonitoring with PA catheter vs ABI in cases of severe pulmonary hypertension [facility] Anesthesia Department is recommending that the patient transfer to a tertiary care center for surgery. Discussed case with Dr Ceja ([facility] Orthopedic Surgeon) and Dr Cuadra ([facility]). Dr Cardenas has accepted the patient in transfer. Plan to medically optimize patient prior to surgery. Acute on chronic hypoxic and hypercarbic respiratory failure 2/2 COPD exacerbation, volume overload, community acquired pneumonia: DNR/DNI. COVID/flu/RSV negative. Extended respiratory panel is pending. -HFNC -Duonebs 4x daily -Replace [employer] Anoro Ellipta with Symbicort - Ceftriaxone and [...] a cemented hip hemiarthroplasty. Not on anticoagulation [employer]. Will need to see an improvement in [...] pressures on a background of hypertension: -hold [employer] amlodipine and metoprolol CHRISTIANO and hyperkalemia: -- Patient reportedly down for extended period of time prior to presentation. -- Reported to have a creatinine of 3 at [facility]. On admission to [facility] creatinine was 2.5. Down-trended to 2.3 this am. (Reported baseline creatinine of 1) Hyperkalemia is mild. Gerd: -Continue [employer]ER pantoprazole Relevant Imaging/Procedures Performed: CXR 02/16/24 IMPRESSION [...] PCR (Does not include influenza or RSV) [[id number]] Collected: 02/16/24 1207 Lab Status: In process Specimen: Swab from Nasopharynx Updated: 02/16/24 1239 MRSA PCR [[id number]] Collected: 02/16/24 1136 Lab Status: In process Specimen: Swab from Nares Updated: 02/16/24 1145 120 minutes of critical care time was spent in stabilization and coordination of care for transfer to [facility]. This included time at bedside, time reviewing laboratory results and studies and time spent communicating with [facility] and coordinating care. Without these measures patient [...] Disposition Code Departure Means Destination Comment s [facility] (Acute Care Facility) documented in this encounter Progress Notes * Dara Burnham, RD - 02/16/2024 8076 EST Brief Nutrition Notes Nsg generated consult for poor appetite, wgt loss, skin issues. Plan for d/c to [facility]. Currently NPO, unable to assess diet hx [...] decreased Response: Mild response, increase subjective per PUBLICATIONS INSPECTOR Pulse: <100 Resp Rate: 18-25 SOB: At [...] to 5L if needed. Pt transferring to [facility] this afternoon for surgical procedure TOÑA SILVER, RT 02/16/24 * Hilary Guerrero - 02/16/2024 1139 EST Initial Case Management/Social Work Assessment and Discharge Plan/Readmission Risk Assessment REASON FOR ADMISSION: Closed right hip fracture, initial encounter ([facility]) Patient understands reason for admission: Yes PATIENT INFO VERIFIED: PCP, Contact Info, Address Type of housing (single family, condo, apartment, [place], single room occupancy, [facility] funded hotel room, group senior living) - House, two levels Who does the patient live with? Significant other Does the patient have access to their own bedroom/bathroom/kitchen - or is it shared with others? Shared Name of housing complex (ex [facility], [facility], etc)- n/a Housing Authority/Managing Organization - n/a Community Care Providers (piano case maker, [facility] nurse, etc) name and contact [...] Expected Discharge on IV Antibiotics: No CULTURAL, SCIENTOLOGY and/or LANGUAGE factors affecting health care/discharge planning: Spiritual/Cultural Requests: Minute Clerk support Language/Literacy Needs Do you need us to provide any communication aids or devices?: No Insurance Information: Medical Insurance: Yes Type of insurance: Medicare, Supplemental plan to Medicare Medicare type: B, A Supplemental: [facility] Referred to patient financial services: No Nutrition: [...] Health Services: Nurse visit DME Provider: Pharmacy: [id number] - [place], [place] - [phone] [phone] Home Health: [facility] Other: [facility] TRANSITION PLAN: [...] food prep only. No specialists. Active with [facility] (nursing and PT). CM confirmed this with [facility]. Patient was a transfer here from [facility]. He may need transfer to [facility], waiting to hear. If he remains here [...] (?not on anticoagulation) presented as transfer from [facility] for surgical management of right femoral neck [...] perioperative complications. Anesthesia requested requesting transfer to [facility]. Discussed with him possibility of optimization and [...] 1456H Pt ordered transferred for surgery to [facility]. Report given to accepting RN. Transported via [facility]. VSS and stable on [...] decreased Response: Mild response, increase subjective per PUBLICATIONS INSPECTOR Pulse: >100 Resp Rate: 26-32 SOB: With [...] O2 needs Action/ Response: Pt transferred from [facility] s/p R pelvic closed Fx. Pt [...] Add LDA for any identified wounds Add [place] image for any suspected PI or non surgical wounds Order wound consult if suspected PI identified If Hernando is < or = to 16, initiate Pressure Injury Prevention Bundle ([id number]). 02/15/2024 17:43 * Kimberly Joshi, RT - [...] (no record of anticoagulation in records from [facility]), who presents as a transfer from [facility] for surgical management of a right femoral neck fracture after a fall. Anesthesia at [facility] was uncomfortable with doing surgery there due to his oxygen requirements baseline and he has transferred here for surgical and anesthesiology evaluation. Workup in the ED at [facility] was notable for white blood cell count 22,000, procalcitonin 3, creatinine 3, and potassium of 6. He was reported to have a baseline creatinine of about 1. He has no prior records available in our chart or in care everywhere. On arrival to [facility] he reports falling two days ago. He said he felt dizzy/lightheaded before falling and lost his balance. He denies tripping and was on the ground for 2-3 hours crawling around on his knees. He denies any recent fever, chills, chest pain, shortness of breath, or cough. He says thathe started to cough at [facility] once he was given a breathing treatment. He said he wears 3-4L O2 at home intermittently. He denies being on apixaban or any other blood thinner. His reported medications are aspirin, amlodipine, and metoprolol. Soon after arrival at [facility] he became hypoxic and was placedon increasing [...] who is admitted as a transfer from [facility] for surgical management of a right femoral neck fracture. Admission has been complicated by acute on chronic hypoxic and hypercarbic respiratory failure 2/2 COPD exacerbation and community acquired pneumonia. He is now on HFNC vs BiPAP in the ICU. Per report from [facility], he is on apixaban and last took it the night of 02/13. However, he denies taking this medication and it isn't listed in his home medications in the list provided on the records from [facility]. Plan Acute on chronic hypoxic and hypercarbic respiratory failure 2/2 COPD exacerbation and community acquired pneumonia: Has had difficulty tolerating the BiPAP and is now on HFNC. Minimal improvement inpH and pCO2 with BiPaP. Continues to confirm DNR/DNI. COVID/flu/RSV negative. -HFNC vs BiPaP -Appreciate RT assistance -Critical care consulted, appreciate recommendations -Repeat VBG PRN -Maintain SpO2 88-92% -Duonebs 4x daily -Replace [employer]ER Anoro Ellipta with Symbicort - Ceftriaxone and doxycycline -Prednisone 40mg daily -Trial of 40mg IV furosemide x1 Fall and right femoral neck fracture: Not on anticoagulation [employer] based on records. Will need to seean [...] pressures on a background of hypertension: -hold [employer] amlodipine and metoprolol Elevated creatinine, hyperkalemia: Reported to have a creatinine of 3 at [facility] and it is 2.5 here. Received report that he has a baseline creatinine of 1, but I am unable to confirm this. Hyperkalemia is mild. -Daily BMP -Strict I's and O's Gerd: -Continue [employer]ER pantoprazole VTE Prophylaxis Seqential Compression Device Code: [...] (?not on anticoagulation) presented as transfer from [facility] for surgical management of right femoral neck fracture after a fall. Unable to obtain detailed history from the patient. On arrival to [facility], he is in respiratory distress with diminished [...] NEUTROABS 19.49* -- No results for input(s): NSFYISXS12, FOLATE in the last 72 hours. BMP: [...] results for input(s): PHISTAT, PCOISTAT, POISTAT, POCTCO2, M1INZUTK, BEART, BDART, POCFIO2 in the last 72 hours. VBGs: No results for input(s): PHVENOUS, W3VPORNYGCF in the last 72 hours. Inflammatory Markers: [...] fibrillation (?not on anticoagulation)presented as transfer from [facility] for surgical management of right femoral neck [...] Rate control if needed NSTEMI Type II [facility] demand related Renal: CHRISTIANO- monitor Infectious Disease: [...] male who fell yesterday and presented to [facility] where workup revealed a displaced right femoral neck fracture. He also however has severe baseline COPD that has been exacerbated and was not felt to be appropriate for treatment there and transferred to [facility] for medical stabilization and care prior to [...] does not use drugs. - lives at [address] [place] [address] Hx: family history is not on file. [...] 02/16/2024 1247 EST Initial Wound Care Consult [facility] In-Patient sales consulting director Service Service Date: 02/16/2024 Admit Date: 02/15/2024 Hospital Day: 1 Consult request by: Kiet LOCK on 02/16/24 Reason for consult: patient with two stage 2-3 pressure injuries to sacrum Admission: Bi Sue is a 83 y.o. yo person transferred from [facility] ED for surgery of right femoral [...] LOCK. Cathy Chavez, MSN, RN, CWCN In-patient sales consulting director Please contact the wound care team via Smart Checkout chat group [facility] Wound Care Team with questions or concerns. * Plan of Care - Nicole Kaur - 02/16/2024 1156 EST Patient is being ruled out for respiratory viruses. Please maintain droplet precautions. Do not cohort at this time. Please message [facility] Infection Prevention via Secure Chat with questions. [...] Contact Info) Description 04/05/2024 10:[address] [facility] Xray [address] [place] [address] 04/05/2024 10:30 EST Post-op Visit [facility] Orthopedic Trauma - [facility] [address], [place] [id number] Ko Marquis PA-C [address] [place] [phone] documented as of this encounter [...] 02/19/2024 14:1 2 EST us Scan 2 Vp Hr Diversity PROCEDURE/MINOR SURGICAL OR DERABLES Final Result * EXPANDED RESPIRATORY VIRAL PANEL, PCR (DOES NOT INCLUDE INFLUENZA OR RSV) (02/16/2024 12:07 EST) Paraflu Type 1 Rslt (PF1RES) Negative Negative 02/17/2024 1:26 [facility] Paraflu Type 2 Rslt (PF2RES) Negative Negative 02/17/2024 1:26 [facility] Paraflu Type 3 Rslt (PF3RES) Negative Negative 02/17/2024 1:26 [facility] Paraflu Type 4 Rslt Negative Negative 02/16 1:26 [facility] Rhinovirus RNA Rslt (RVRES) Negative Negative 02/17/2024 1:26 [facility] Metapneumovirus RNA Rslt (HMVRES) Negative Negative 02/17/2024 1:26 [facility] Adenovirus DNA Rslt (ADVRES) Negative Negative 02/17/2024 1:26 [facility] Swab NASOPHARYNGEAL STRUCTURE / Unknown Swab / Unknown 02/16/2024 12:07 EST 02/16/2024 12:39 EST us Dominique Goldstein MD MICROBIOLOGY - GENERAL ORDERABLE S Final Result [facility] [address] [place] [address] * (ABNORMAL) POCT GLUCOSE, INTERFACED (02/16/2024 11:39 EST) Glucose, POC 177(H) 70 - 100 mg/dL 02/16/2024 11:42 EST [facility] HN LAB POC COMMENT (GLUCOSE) [facility] 02/16/2024 11:42 EST [facility] Blood CAPILLARY BLOOD / Unknown 02/16/2024 11:39 EST 02/16/2024 11:42 EST Leda Ng MD POINT OF CARE TEST ORDERA BLES Final Result Performing Organization Address [facility]/ZIP Co de Phone Number [facility] [address] [place] [phone] * MRSA PCR (02/16/2024 11:36 EST) MRSA PCR Not Detected Not Detected 02/16/2024 13:27 [facility] Comment:MRSA target DNA is n ot detected (presumed not colonized with MRSA). Swab BOTH ANTERIOR NARES / Unknown Swab / Unknown 02/16/2024 11:36 EST 02/16/2024 11:45 EST Dominique Goldstein MD MICROBIOLOGY - GENERAL ORDERABLE S Final Result Performing Organization Address [facility] Co de Phone [facility] [address] [place] [phone] * LEGIONELLA ANTIGEN DETECTION, URINE (02/16/2024 11:36 EST) Legionella Antigen Detection Negative Negative 02/16/2024 12:33 EST [facility] Urine URINE / Unknown Urine Collect / Unknown 02/16/2024 11:36 EST 02/16/2024 11:45 EST Narrative [facility] - 02/16/2024 12:33 EST [...] ORDERABLE S Final Result Performing Organization Address City[facility]/ZIP Co de Phone Number [facility] [address] [place] [address] * STREPTOCOCCUS PNEUMONIAE ANTIGEN, URINE (02/16/2024 11:36 EST) Strep Pneumo Ag Detection, Urine Negative Negative 02/16/2024 12:33 EST [facility] Urine URINE / Unknown Urine Collect / Unknown 02/16/2024 11:36 EST 02/16/2024 11:45 EST Narrative [facility] - 02/16/2024 12:33 EST Presumptive negative for pneumococcal pneumonia, suggesting no current or recent infection. ??Infection due to S.pneumoniae cannot be ruled out since the antigen present in the sample may be below detection limit of the test. Dominique Goldstein MD MICROBIOLOGY - GENERAL ORDERABLE S Final Result Performing Organization Address [facility] Co de Phone Number [facility] [address] [place] [address] * XR CHEST PORTABLE 1 VIEW (02/16/2024 10:59 EST) Anatomical Region Laterality Modality Computed Radiogr aphy 02/16/2024 11:0 5 EST Impressions 02/16/2024 11:05 EST Small bilateral pleural effusions. Slight interval increase in patchy airspace opacities at both lung bases and in the suprahilar right lung. [id number] Narrative 02/16/2024 11:05 EST XR CHEST PORTABLE [...] findings: ??Normal. Bones: Normal. Resulting Agency Comment [id number] Procedure Note Aaron Boone MD - 02/16/2024 [...] bases and in the suprahilar right lung. [id number] us Leda Ng MD IMG DIAGNOSTIC IMAGING OR DERABLES Final Result * ECG REPORT - SCANNED (02/16/2024 10:05 EST) 02/16/2024 10:0 5 EST us Scan 2 Vp Hr Diversity PROCEDURE/MINOR SURGICAL OR DERABLES Final Result * (ABNORMAL) TROPONIN I (02/16/2024 9:34 EST) Troponin I (ng/mL) 0.244(H) <0.034 ng/mL 02/16/2024 10:14 EST [facility] Blood VENOUS BLOOD / Unknown Venipuncture / Unknown 02/16/2024 9:34 EST 02/16/2024 9:40 EST Narrative [facility] - 02/16/2024 10:14 EST The results of this assay can be falsely lowered due to the consumption of Biotin. us Krystian Anne MD CHEMISTRY & BLOOD GAS ORDERAB LES Final Result [facility] [address] [place] [address] * TRANSTHORACIC ECHO (TTE) COMPLETE W/DOPPLER W/CF [...] i-STAT 7.44(H) 7.31 - 7.41 02/16/2024 5:43 [facility] pCO2, Venous, i-STAT 45 41 - 51 mmHg 02/16/2024 5:43 [facility] pO2, Venous, i-STAT 41 30 - 50 mmHg 02/16/2024 5:43 [facility] TCO2, Venous, i-STAT 32(H) 22 - 28 mmol/L 02/16/2024 5:43 [facility] O2 Saturation, Venous, i-STAT 78 60 - 85 % 02/16/2024 5:43 [facility] Base Excess(+) / Deficit(-), Venous, i-STAT 6(H) -2 - 3 mmol/L 02/16/2024 5:43 [facility] Blood VENOUS BLOOD / Unknown 02/16/2024 5:41 EST 02/16/2024 5:43 EST Narrative [facility] - 02/16/2024 5:43 EST Test Performed by Respiratory us Lacey Hassan DO POINT OF CARE TEST ORDERABL ES Final Result [facility] [address] [place] [address] * (ABNORMAL) BASIC METABOLIC PANEL (BMP) (02/16/2024 5:37 EST) Sodium 134(L) 136 - 145 mmol/L 02/16/2024 6:05 [facility] Potassium 5.3(H) 3.5 - 5.0 mmol/L 02/16/2024 6:05 [facility] Comment:Moderate hemolysis i dentified, interpret with caution as hemolysis will elevate potassium result. Chloride 99 96 - 110 mmol/L 02/16/2024 6:05 [facility] CO2 Total 29 22 - 32 mmol/L 02/16/2024 6:05 [facility] Anion Gap 6 5 - 14 mmol/L 02/16/2024 6:05 [facility] Glucose 186(H) 70 - 99 mg/dl 02/16/2024 6:05 [facility] Calcium 7.8(L) 8.5 - 10.5 mg/dL 02/16/2024 6:05 [facility] [facility] BUN 70(H) 10 - 26 mg/dL 02/16/2024 6:05 [facility] Comment:Moderate hemolysis i dentified, interpret with caution as results may be affected due to hemolysis. Creatinine 2.30(H) 0.66 - 1.25 mg/dL 02/16/2024 6:05 [facility] eGFR 27(L) >60 mL/min/1.7 3m2 02/16/2024 6:05 [facility] Blood VENOUS BLOOD / Unknown Venipuncture / Unknown 02/16/2024 5:37 EST 02/16/2024 5:43 EST us Homer Tan MD CHEMISTRY & BLOOD GAS ORDERABLE S Final Result [facility] [address] [place] [address] * CK (02/16/2024 5:37 EST) CK 114 <=250 U/L 02/16/2024 6:05 [facility] Comment:Moderate hemolysis i dentified, interpret with caution as results may be affected due to hemolysis. Blood VENOUS BLOOD / Unknown Venipuncture / Unknown 02/16/2024 5:37 EST 02/16/2024 5:43 EST us Krystian Anne MD CHEMISTRY & BLOOD GAS ORDERAB LES Final Result Performing Organization Address City/[facility]/ZIP Co de Phone Number [facility] [address] [place] [address] * HN LAB CBC SMEAR REVIEW (02/16/2024 5:36 EST) Differential Comment Slide was examined by a technologist to verify the WBC and/or platelet count. 02/16/2024 6:01 [facility] Blood VENOUS BLOOD / Unknown Venipuncture / Unknown 02/16/2024 5:36 EST 02/16/2024 5:43 EST us Homer Tan MD HEMATOLOGY & PF4 ORDERABLES Fin al Result Performing Organization Address [facility] Co de Phone Number [facility] [address] [place] [address] * (ABNORMAL) COMPLETE BLOOD COUNT (02/16/2024 5:36 EST) WBC 19.87(H) 4.00 - 10.40 K/cmm 02/16/2024 6:01 [facility] RBC 4.14(L) 4.36 - 5.78 M/cmm 02/16/2024 6:01 [facility] Hemoglobin 13.4(L) 13.8 - 17.3 g/dL 02/16/2024 6:01 [facility] HCT 40.3 39.5 - 50.2 % 02/16/2024 6:01 [facility] MCV 97(H) 81 - 95 fL 02/16/2024 6:01 [facility] MCH 32.4 27.6 - 33.0 pg 02/16/2024 6:01 [facility] MCHC 33.3 32.8 - 36.4 g/dL 02/16/2024 6:01 [facility] RDW-CV 14.9(H) <14.2 % 02/16/2024 6:01 [facility] RDW-SD 53.8(H) <46.0 fl 02/16/2024 6:01 [facility] PLT 140(L) 141 - 377 K/cmm 02/16/2024 6:01 [facility] Blood VENOUS BLOOD / Unknown Venipuncture / Unknown 02/16/2024 5:36 EST 02/16/2024 5:43 EST us Homer Tan MD HEMATOLOGY & PF4 ORDERABLES Fin al Result Performing Organization Address [facility]/ZIP Co de Phone Number [facility] [address] [place] [address] * (ABNORMAL) TROPONIN I (02/16/2024 1:35 EST) Troponin I (ng/mL) 0.323(H) <0.034 ng/mL 02/16/2024 2:32 EST [facility] Blood VENOUS BLOOD / Unknown Venipuncture / Unknown 02/16/2024 1:35 EST 02/16/2024 1:43 EST Narrative [facility] - 02/16/2024 2:32 EST The results of this assay can be falsely lowered due to the consumption of Biotin. us Krystian Anne MD CHEMISTRY & BLOOD GAS ORDERAB LES Final Result [facility] [address] [place] [address] * (ABNORMAL) TROPONIN I (02/15/2024 17:51 EST) Troponin I (ng/mL) 0.403(H) <0.034 ng/mL 02/15/2024 18:30 EST [facility] Blood VENOUS BLOOD / Unknown Venipuncture / Unknown 02/15/2024 17:51 EST 02/15/2024 17:58 EST Narrative [facility] - 02/15/2024 18:30 EST The results of this assay can be falsely lowered due to the consumption of Biotin. us Krystian Anne MD CHEMISTRY & BLOOD GAS ORDERAB LES Final Result Performing Organization Address [facility] Co de Phone Number [facility] [address] [place] [address] * (ABNORMAL) POCT BLOOD GAS, CG8 I-STAT (02/15/2024 17:00 EST) Pathologist [facility] pH, Venous, i-STAT 7.28(L) 7.31 - 7.41 02/15/2024 17:04 [facility] pCO2, Venous, i-STAT 63(H) 41 - 51 mmHg 02/15/2024 17:04 [facility] pO2, Venous, i-STAT 30 30 - 50 mmHg 02/15/2024 17:04 [facility] TCO2, Venous, i-STAT 31(H) 22 - 28 mmol/L 02/15/2024 17:04 [facility] O2 Saturation, Venous, i-STAT 47(L) 60 - 85 % 02/15/2024 17:04 [facility] Base Excess(+) / Deficit(-), Venous, i-STAT 3 -2 - 3 mmol/L 02/15/2024 17:04 [facility] Blood VENOUS BLOOD / Unknown 02/15/2024 17:00 EST 02/15/2024 17:04 EST Narrative [facility] - 02/15/2024 17:04 EST Test Performed by Respiratory us Krystian Anne MD POINT OF CARE TEST ORDERABLES Final Result Performing Organization Address [facility]/ZIP Co de Phone Number [facility] [address] [place] [address] * EKG 12-LEAD (02/15/2024 16:26 EST) 02/15/2024 16:2 6 EST Narrative [facility] 02/16/2024 9:57 EST ? [facility] ? Test Date: ?2024-02-15 Pat Name: ? BI SUE ? Department: ? Room: ? 305 Gender: ? Male ? 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 CS : ?1940 ? Requested By: YURY NAYLOR Order Number: [id number] ? Reading MD: ?? CARLOS ALBERTO REYNOLDS MD ? Measurements Intervals ?Schuyler ? Rate: ? 110 ?P: ?77 CO: ? 138 ?QRS: ?-19 QRSD: ? 120 [...] Note Carlos Alberto Reynolds MD - 02/16/2024 [facility] Test Date: 2024-02-15 Pat Name: BI SUE Department: Room: 305 Gender: Male Shoe Patternmaker: BLANCA : 1940 Requested By: YURY NAYLOR Order Number: [id number] Reading MD: CARLOS ALBERTO REYNOLDS MD Measurements Intervals Schuyler Rate: 110 P: 77 CO: 138 QRS: -19 QRSD: 120 T: 84 [...] MD CARDIAC ECG ORDERABLES Final Res ult [facility] * (ABNORMAL) POCT BLOOD GAS, CG8 I-STAT (02/15/2024 15:20 EST) pH, Venous, i-STAT 7.24(L) 7.31 - 7.41 02/15/2024 15:24 [facility] pCO2, Venous, i-STAT 65(H) 41 - 51 mmHg 02/15/2024 15:24 [facility] pO2, Venous, i-STAT 30 30 - 50 mmHg 02/15/2024 15:24 [facility] TCO2, Venous, i-STAT 29(H) 22 - 28 mmol/L 02/15/2024 15:24 [facility] O2 Saturation, Venous, i-STAT 44(L) 60 - 85 % 02/15/2024 15:24 [facility] Hematocrit, Venous, i-STAT 48 40 - 50 % 02/15/2024 15:24 [facility] Base Excess(+) / Deficit(-), Venous, i-STAT 0 -2 - 3 mmol/L 02/15/2024 15:24 [facility] Blood VENOUS BLOOD / Unknown 02/15/2024 15:20 EST 02/15/2024 15:24 EST [facility] - 02/15/2024 15:24 EST Test Performed by Respiratory Krystian Anne MD POINT OF CARE TEST ORDERABLES Final Result [facility] [address] [place] [address] * (ABNORMAL) NT PRO BNP (02/15/2024 15:19 EST) NT-pro BNP 7,520(H) <326 pg/mL 02/15/2024 16:51 [facility] Comment: In the acute setting NT-proBNP values <300 pg/mL have a 98% NPV for excluding acute heart failure. In outpatient populations, NT-proBNP values <125 have a 99% NPV for excluding heart failure. Blood VENOUS BLOOD / Unknown Venipuncture / Unknown 02/15/2024 15:19 EST 02/15/2024 15:24 EST us Dominique Goldstein MD CHEMISTRY & BLOOD GAS ORDERABLES Final Result [facility] [address] [place] [address] * (ABNORMAL) COMPREHENSIVE METABOLIC PANEL (CMP) (02/15/2024 15:19 EST) Sodium 136 136 - 145 mmol/L 02/15/2024 16:40 [facility] Potassium 5.3(H) 3.5 - 5.0 mmol/L 02/15/2024 16:40 [facility] Comment:Slight hemolysis carson ntified, interpret with caution as hemolysis will elevate potassium result. Chloride 102 96 - 110 mmol/L 02/15/2024 16:40 [facility] CO2 Total 22 22 - 32 mmol/L 02/15/2024 16:40 [facility] Glucose 156(H) 70 - 99 mg/dl 02/15/2024 16:40 [facility] BUN 65(H) 10 - 26 mg/dL 02/15/2024 16:40 [facility] Comment: Slight hemolysis identified, interpret with caution as results may be affected due to hemolysis. Creatinine 2.50(H) 0.66 - 1.25 mg/dL 02/15/2024 16:40 [facility] eGFR 25(L) >60 mL/min/1.7 3m2 02/15/2024 16:40 [facility] Total Protein 5.5(L) 6.3 - 8.2 g/dL 02/15/2024 16:40 [facility] Comment:Slight hemolysis carson ntified, interpret with caution as results may be affected due to hemolysis. Albumin 3.1(L) 3.4 - 4.9 g/dL 02/15/2024 16:40 [facility] Comment:Slight hemolysis carson ntified, interpret with caution as results may be affected due to hemolysis. Alkaline Phosphatase 109 38 - 126 U/L 02/15/2024 16:40 [facility] Comment:Slight hemolysis carson ntified, hemolysis will decrease ALKP result. Interpret with caution as results may be affected due to hemolysis. AST 49(H) 15 - 46 U/L 02/15/2024 16:40 [facility] Comment:Slight hemolysis carson ntified, interpret with caution as results may be affected due to hemolysis. ALT 68(H) <50 U/L 02/15/2024 16:40 [facility] Bilirubin, Total 0.7 <1.4 mg/dL 02/15/20 16:40 [facility] Calcium 8.1(L) 8.5 - 10.5 mg/dL 02/15/2024 16:40 [facility] Albumin/Globulin Ratio 1.3 1.0 - 2.5 02/15/2024 16:40 [facility] Anion Gap 12 5 - 14 mmol/L 02/15/2024 16:40 [facility] Blood VENOUS BLOOD / Unknown Venipuncture / Unknown 02/15/2024 15:19 EST 02/15/2024 15:24 EST Dominique Goldstein MD CHEMISTRY & BLOOD GAS ORDERABLES Final Result Performing Organization Address City/State/[facility] Co de Phone Number [facility] [address] [place] [address] * (ABNORMAL) COMPLETE BLOOD COUNT AND DIFFERENTIAL (02/15/2024 15:19 EST) WBC 21.84(H) 4.00 - 10.40 K/cmm 02/15/2024 16:30 [facility] RBC 4.54 4.36 - 5.78 M/cmm 02/15/2024 16:30 [facility] Hemoglobin 14.5 13.8 - 17.3 g/dL 02/15/2024 16:30 [facility] HCT 44.8 39.5 - 50.2 % 02/15/2024 16:30 [facility] MCV 99(H) 81 - 95 fL 02/15/2024 16:30 [facility] MCH 31.9 27.6 - 33.0 pg 02/15/2024 16:30 [facility] MCHC 32.4(L) 32.8 - 36.4 g/dL 02/15/2024 16:30 [facility] RDW-CV 14.9(H) <14.2 % 02/15/2024 16:30 [facility] RDW-SD 54.5(H) <46.0 fl 02/15/2024 16:30 [facility] PLT 151 141 - 377 K/cmm 02/15/2024 16:30 [facility] MPV 11.6 9.5 - 12.7 fL 02/15/2024 16:30 [facility] % Neutrophils 89.3 Not Indicated % 02/15/2024 16:30 [facility] % Lymphocytes 3.1 Not Indicated % 02/15/2024 16:30 [facility] % Monocytes 6.6 Not Indicated % 02/15/2024 16:30 [facility] % Eosinophils 0.0 Not Indicated % 02/15/2024 16:30 [facility] % Basophils 0.2 Not Indicated % 02/15/2024 16:30 [facility] % Immature Grans 0.8 <0.9 % 02/15/2024 16:30 [facility] Absolute Neutrophils 19.49(H) 2.20 - 8.85 K/cmm 02/15/2024 16:30 [facility] Absolute Lymphocytes 0.67(L) 1.09 - 3.30 K/cmm 02/15/2024 16:30 [facility] Absolute Monocytes 1.45(H) 0.10 - 0.80 K/cmm 02/15/2024 16:30 [facility] Absolute Eosinophils 0.00(L) 0.03 - 0.61 K/cmm 02/15/2024 16:30 [facility] ABS Basophils 0.05 0.01 - 0.11 K/cmm 02/15/2024 16:30 [facility] Absolute Immature Grans 0.18(H) 0.00 - 0.06 K/cmm 02/15/2024 16:30 [facility] Type of Differential: Auto 02/15/2024 16:30 [facility] Blood VENOUS BLOOD / Unknown Venipuncture / Unknown 02/15/2024 15:19 EST 02/15/2024 15:25 EST us Dominique Goldstein MD PACKAGES & DNA PROBE ORDERABLES Final Result Performing Organization Address [facility]/ZIP Co de Phone Number [facility] [address] [place] [address] * HOLD LAVENDER TOP (02/15/2024 15:19 EST) Hold Hold 02/15/2024 16:31 [facility] Blood VENOUS BLOOD / Unknown Venipuncture / Unknown 02/15/2024 15:19 EST 02/15/2024 15:25 EST us Krystian Anne MD LAB INFO SERVICE AND SUPPORT & PHONE RESULT Final Result Performing Organization Address [facility] Co de Phone Number [facility] [address] [place] [address] * HOLD GREEN TOP (02/15/2024 15:19 EST) Hold Hold 02/15/2024 16:31 [facility] Blood VENOUS BLOOD / Unknown Venipuncture / Unknown 02/15/2024 15:19 EST 02/15/2024 15:25 EST us Krystian Anne MD LAB INFO SERVICE AND SUPPORT & PHONE RESULT Final Result Performing Organization Address City/[facility]/ZIP Co de Phone Number [facility] [address] [place] [address] * (ABNORMAL) CK (02/15/2024 15:19 EST) CK 272(H) <=250 U/L 02/15/2024 15:50 EST [facility] Blood VENOUS BLOOD / Unknown Venipuncture / Unknown 02/15/2024 15:19 EST 02/15/2024 15:24 EST Krystian Anne MD CHEMISTRY & BLOOD GAS ORDERAB LES Final Result [facility] [address] [place] [address] * SARS COV2, FLU A/B, RSV DETECT BY PCR (02/15/2024 15:13 EST) FLU A RNA Result (FLARES) Negative Negative 02/15/2024 16:22 [facility] FLU B RNA Result (FLBRES) Negative Negative 02/15/2024 16:22 [facility] RSV RNA Result (RSVRES) Negative Negative 02/15/2024 16:22 [facility] COVID-19 rt-PCR Result Negative Negative 02/15/2024 16:22 [facility] Comment: The 2019 novel coronavirus (SARS-CoV-2) target nucleic acids are not detected. Performed on the [email or web address] GeneXpert Instrument Swab NASOPHARYNGEAL STRUCTURE / Unknown Swab / Unknown 02/15/2024 15:13 EST 02/15/2024 15:18 EST Krystian Anne MD MICROBIOLOGY - GENERAL ORDERA BLES Final Result Performing Organization Address City/[facility]/ZIP Co de Phone Number [facility] [address] [place] [address] documented in this encounter Visit Diagnoses Diagnosis Closed right hip fracture, initial encounter ([facility] Primary Closed right hip fracture, initial encounter ([facility]) [S72.001A] Acute on chronic respiratory failure with hypoxia and hypercapnia ([facility]) [J96.21, J96.22] Pneumonia due to infectious organism, unspecified laterality, unspecified part of lung [J18.9] Heart failure, unspecified HF chronicity, unspecified heart failure type ([facility]) Pulmonary HTN ([facility]) Other chronic pulmonary heart diseases Pulmonary emphysema, unspecified emphysema type ([facility]) Acute on chronic respiratory failure with hypoxia and hypercapnia ([facility]) Pneumonia due to infectious organism Heart failure ([facility]) Heart failure, unspecified Pulmonary HTN ([facility]) Other chronic pulmonary heart diseases Pulmonary emphysema ([facility]) Other emphysema documented in this encounter Admitting Diagnoses Diagnosis Closed right hip fracture, initial encounter ([facility]) documented in this encounter Administered [...] inhalation, EVERY 12 HOURS, First dose on Avndana 02/15/24 at 2100, Until Discontinued, Routine 2027 [...] documented as of this encounter Care Teams Precast Molder Relationship Specialty Start Date End Date Suzie Villagomez MD [address] [place] [id number] PCP - General Family Medicine - Primary Care 02/15/24 documented as of this encounter
--- OUTSIDE RECORDS SUMMARY | 2024-04-01 17:54 | XMS_ITS | Encounter Summary ---
Author Organization [facility] Address [address] [place] [id number] Care Team Providers Care Certified Pathology Assistant Name Role Phone Suzie Vlilagomez MD Primary Care Provider [phone] Reason for Visit * Auth/Cert (Routine) Specialty Diagnoses / Procedures Referred By Conthank t Referred To Contact Diagnoses Acute hypoxic respiratory failure ([facility]) Hip fracture Referral ID Status Reason Start Date Expiration Date Visits Re quested Visits Authorized [id number] 1 1 Encounter Details Date Type Department Care Team (Late st Contact Info) Description 02/17/2024 11:30 EST - 02/17/2024 15:15 EST Surgery [facility] OR [address] [place] [id number] Augustine Ceja MD [address] [place] [phone] Open treatment of right femoral neck fracture with hemiarthroplasty [85256 (CPT??)] Surgery Details Date/Time Status Location OR Service Patient Class Case Class Case Type Trauma Case? 02/17/2024 1130 Posted [facility] OR [facility] Orthopedics Inpatient G - Less than [...] drink = 0.6 oz pur e alcohol) [facility] Utilities Answer Date Recorded In the [...] any time in the past 12 m [facility], were you homeless or living [...] Admit Date: 02/16/2024 Discharge Date: 02/29/24 Disposition: intermediate facility/Subacute rehab Reason for Admission: hip fracture Principal/Final Diagnosis: Acute hypoxic respiratory failure (HCC-CMS) Active Hospital Problems Diagnosis Date Noted *Acute hypoxic respiratory failure (HCC-CMS) 02/16/2024 PFO (patent foramen ovale) 02/27/2024 Atrial fibrillation ([facility]) 02/26/2024 Urinary retention 02/26/2024 Hypertension 02/26/2024 Thrush 02/26/2024 Osteoporosis with current pathological fracture 02/22/2024 Pulmonary hypertension ([facility]) 02/16/2024 Chronic obstructive pulmonary disease ([facility]) 02/16/2024 Closed right hip fracture, initial encounter ([facility]) 02/15/2024 Resolved Hospital Problems No resolved problems to display. Condition at Discharge: Improved Clinical Issues Needing Follow-up: -Needs osteoporosis treatment post DC, ortho placed referral to the Fracture Liaison Service with [facility] Endocrinology - 2 weeks postoperative wound check to be completed by rehabilitation or orthopedic MD/CHAVA. - 6 weeks postoperative follow-up with orthopedic trauma clinic for repeat clinical and radiographic evaluation. (Referral placed for [facility] follow up - could explore placing referral for ortho closerto home) - Referral to outpatient pulmonology/cardiology in [facility] (order not placed) - Discharging with [...] GERD, and HTN, who was transferred from [facility] to [facility] and then [facility] for surgical management of a [...] which may represent aspiration pneumonitis. Smallright effusion. [id number] XR CHEST PORTABLE 1 VIEW Result Date: 02/18/2024 Bilateral small pleural effusions and bibasilar opacities compatible with atelectasis. [id number] XR HIP RIGHT 1 VIEW Result Date: 02/17/2024 FINDINGS/IMPRESSION: 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 No periprosthetic fracture is seen. No acute left hip abnormality is seen. Atherosclerotic calcifications arepresent bilaterally. [id number] XR HIP LEFT 1 VIEW Result Date: 02/17/2024 FINDINGS/IMPRESSION: 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 No periprosthetic fracture is seen. No acute left hip abnormality is seen. Atherosclerotic calcifications arepresent bilaterally. [id number] CT ANGIO CHEST PE PROTOCOL Result Date: [...] above interpretation and agree with the findings. [id number] XR HIP RIGHT 1 VIEW Result Date: 02/16/2024 Findings/impression: Redemonstrated right femoral neck fracture, not significantly changed. No left-sided hip fracture or dislocation. Mild degenerative changes of the left hip. The soft tissues are unremarkable. [id number] XR HIP LEFT 2-3 VIEWS OPTIONAL PELVIS Result Date: 02/16/2024 Findings/impression: Redemonstrated right femoral neck fracture, not significantly changed. No left-sided hip fracture or dislocation. Mild degenerative changes of the left hip. The soft tissues are unremarkable. [id number] XR CHEST PORTABLE 1 VIEW Result Date: 02/16/2024 Small bilateral pleural effusions. Slight interval increase in patchy airspace opacities at both lung bases and in the suprahilar right lung. [id number] No Known Allergies There is no immunization history for the selected administration types on file for this patient. Results Pending at Discharge Test results still pending from this admission None Follow-up appointments and procedures Amb Consult/Follow Up Orthopedics - [facility] Scheduling Comments (optional - describe [...] DISCHARGE NOTE DISCHARGE DATE/TIME: 02/29/24 11:15-12:00 DESTINATION: [facility] re[facility] [address] [place] [phone] (If discharging to [facility]) COVID swab ordered and completed: na TRANSPORTATION: [facility] ACCEPTING MD AND NUMBER: na RN REPORT/UNIT: [phone] STRETCHER HELPER/CHARGE/MD NOTIFIED (Y/N): Y FORMS: (Acute to acute, COLST, MOLST, KEON, Screen, PASRR, Ambulance): COLST,PASRR, Ambulance form, LENA IM SIGNED (Y/NA): na HOME HEALTH: [facility] - services on hold DME: [employer] PHARMACY/PRESCRIPTIONS: facility MEDS TO BEDS UTILIZED : NO Patient and/or family who participated in discharge plan: patient and granddaughter Dang TAMMY Navarrete Chilling Hood Operator II Epic chat preferred. 02/26/2024 11:57 [...] needs and plan for his transition to [facility]. Called and updated granddaughter Dang. [...] hypertension who transferred to our institution from [facility] with a right femoral neck fracture [...] oxygenation for movement to get him to [facility]. Case discussed today with RT, [...] this today so able to go to [facility] with this tentatively tomorrow - [...] referral to the Fracture Liaison Service with [facility] Endocrinology - Vit D 2000U/d, tylenol and dilaudid for pain Thrush - nystatin swish and spit Urinary retention CHRISTIANO - resolved to baseline - failed a few lewis trials, tamsulosin started 02/25 and can retrial at [facility]/urology o/p Afib with RVR - new this hospitalization, not on AC outpatient - confirmed with 02/25 his med list - apixaban 2.5 BID started this hospital stay. Would benefit from o/p holter to assess frequency - SIZER MACHINE metoprolol, received amio in the ICU Chronic comorbidities HTN - home metoprolol, amlodpine 10mg on hold GERD - home protonix HLD/CAD - home ASA Incidental findings Spiculated lung nodule seen on CT chest - needs repeat imaging 1 month post treatment outpatient toensure resolution VTE Prophylaxis apixaban Discharge Plan [facility] - if stable respiratory status [...] decreased Response: Mild response, increase subjective per PADDING MACHINE OPERATOR Pulse: <100 Resp Rate: 18-25 SOB: With [...] hypertension who transferred to our institution from [facility] with a right femoral neck fracture [...] referral to the Fracture Liaison Service with [facility] Endocrinology - Vit D 2000U/d, tylenol and dilaudid for pain Thrush - nystatin swish and spit Urinary retention CHRISTIANO - resolved to baseline - failed a few lewis trials, tamsulosin started 02/25 and can retrial 02/27 vs at [facility]/urology o/p Afib with RVR - new this hospitalization, not on AC outpatient - confirmed with 02/25 his med list - apixaban 2.5 BID started this hospital stay. Would benefit from o/p holter to assess frequency - SIZER MACHINE metoprolol, received amio in the ICU Chronic [...] decreased Response: Mild response, increase subjective per PADDING MACHINE OPERATOR Pulse: <100 Resp Rate: <18 SOB: With [...] Julianne Pascal - 02/27/2024 0943 EST [facility] Department of Case Management and [...] on oximizer Plan Patient [facility] Transfer by ambulance on Monday was postponed due toconcern for stability. Plan is to switch patient to oximizer, observe for a day, and [facility] - pending confirmation from ST. that they can support oximizer and hold bed until . [employer] TAMMY Navarrete Chilling Hood Operator II Epic chat preferred. 02/27/2024 9:43 [...] - but states home health would. Called [facility] who confirmed the following meds: [...] hypertension who transferred to our institution from [facility] with a right femoral neck fracture [...] referral to the Fracture Liaison Service with [facility] Endocrinology - Vit D 2000U/d, tylenol and dilaudid for pain Thrush - nystatin swish and spit Urinary retention CHRISTIANO - resolved to baseline - failed a few lewis trials, tamsulosin started 02/25 and can retrial 02/27 vs at [facility]/urology o/p Afib with RVR - new this hospitalization, not on AC outpatient - confirmed with HH 02/25 his med list - apixaban 2.5 BID started this hospital stay. Would benefit from o/p holter to assess frequency - SIZER MACHINE metoprolol, received amio in the ICU Chronic comorbidities HTN - home metoprolol, amlodpine 10mg on hold GERD - home protonix HLD/CAD - home ASA Incidental findings Spiculated lung nodule seen on CT chest - needs repeat imaging 1 month post treatment outpatient toensure resolution VTE Prophylaxis apixaban Discharge Plan [facility] - if stable respiratory status [...] Progress Note Patient scheduled to transfer to [facility] H&R postponed by provider as precaution to [id number] stability. [facility]. Confirmed that if he is confirmed to be stable, they can take him tomorrow. CM cancelled ambulance ride and will reschedule in the morning as appropriate. CM notified granddaughter Dang. CM will continue to follow and coordinate safe discharge. TAMMY Navarrete Chilling Hood Operator II Epic chat preferred. 02/26/2024 12:00 * Laine Coe, PT - 02/26/2024 5290 EST [facility] Rehabilitation Therapy Acute Therapy [facility] ADDENDUM: This addendum is intended as [...] during admission. He has been dc to [facility] 02/28 to further progress functionalindep [...] Completed Today: Physical Therapy Today At: Time: [id number] minutes Present for the Therapy Session Comments: [...] During therapy session, After therapy session By: [id number] communication Additional communication about Patient Status and [...] go to rehab closer to family in [place]. Objective Vital Signs Temp: [36.7 ??C (98.1 [...] effusions and bibasilar opacities compatible with atelectasis. [id number] XR HIP RIGHT 1 VIEW Result Date: 02/17/2024 FINDINGS/IMPRESSION: 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 No periprosthetic fracture is seen. No acute left hip abnormality is seen. Atherosclerotic calcifications arepresent bilaterally. [id number] XR HIP LEFT 1 VIEW Result Date: 02/17/2024 FINDINGS/IMPRESSION: 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 No periprosthetic fracture is seen. No acute left hip abnormality is seen. Atherosclerotic calcifications arepresent bilaterally. [id number] CT ANGIO CHEST PE PROTOCOL Result Date: [...] above interpretation and agree with the findings. [id number] XR HIP RIGHT 1 VIEW Result Date: 02/16/2024 Findings/impression: Redemonstrated right femoral neck fracture, not significantly changed. No left-sided hip fracture or dislocation. Mild degenerative changes of the left hip. The soft tissues are unremarkable. [id number] XR HIP LEFT 2-3 VIEWS OPTIONAL PELVIS Result Date: 02/16/2024 Findings/impression: Redemonstrated right femoral neck fracture, not significantly changed. No left-sided hip fracture or dislocation. Mild degenerative changes of the left hip. The soft tissues are unremarkable. [id number] XR CHEST PORTABLE 1 VIEW Result Date: 02/16/2024 Small bilateral pleural effusions. Slight interval increase in patchy airspace opacities at both lung bases and in the suprahilar right lung. [id number] Assessment/Plan Assessment Noe Sue is a 83 y.o. male with a PMHx of COPD (3-5L home oxygen), possible AF (he denies ever being told he has AF), GERD, and HTN, who was transferred from [facility] to [facility] and then [facility] for surgical management of a [...] Symbicort q12h (LABA/ICS), spiriva daily to replace SIZER MACHINE LAMA - Hold SIZER MACHINE Anoro Ellipta (LAMA/LABA) - Wean off of supplemental O2 as tolerated - Maintain SpO2 88-92% - RT following, airway clearance - On discharge would need good pulmonology FU, could benefit from pulmonary rehab. Severe pulmonary HTN with RV failure Suspect group 3 pulm HTN (2/2 lung disease) S/p lasix 160 mg and 5 mg metolazone 02/16/24 at [facility] prior to transfer. Multiple doses of IV lasix given, titrated to kidney function and respiratory function. - Oral diuresis with lasix 20mg. CHRISTIANO resolved. Patient's creatinine on admission 2.54, baseline Cr about 1 per note from [facility]. - Daily BMP - Strict I/Os Urinary Retention Denies retention at home but has thus far failed void trial 02/18, 02/22 - lewis was replaced 02/24, likely can do void trial in 1-2 days to see if retention is improved bytamsulosin - tamsulosin 0.4 at bedtime. Afib with RVR Patient denies h/o AF or taking eliquis, but report from [facility] said his last dose of eliquis was 02/13). EDGAR-VASc score of 4 with 4.8% stroke risk. - Started Eliquis 2.5mg BID (dose reduced given pt's advanced age, serum Cr., and weight) - Dc'd Telemetry monitoring d/t stable rate control over the past several days, low threshold to restart if rates sustained >110. - Continue SIZER MACHINE metoprolol XL 25 mg daily Right femoral [...] referral to the Fracture Liaison Service with [facility] Endocrinology - Vit D 2000U/d - PT recs TANI Chronic: HTN - Cont SIZER MACHINE metoprolol XL 25 mg daily - Holding SIZER MACHINE amlodipine 10 mg daily GERD - SIZER MACHINE pantoprazole 40/d Constipation, resolved VTE Prophylaxis: apixaban [...] decreased Response: Mild response, increase subjective per PADDING MACHINE OPERATOR Pulse: <100 Resp Rate: 18-25 SOB: With [...] go to rehab closer to family in [place]. Objective Vital Signs Temp: [37 ??C (98.6 [...] effusions and bibasilar opacities compatible with atelectasis. [id number] XR HIP RIGHT 1 VIEW Result Date: 02/17/2024 FINDINGS/IMPRESSION: 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 No periprosthetic fracture is seen. No acute left hip abnormality is seen. Atherosclerotic calcifications arepresent bilaterally. [id number] XR HIP LEFT 1 VIEW Result Date: 02/17/2024 FINDINGS/IMPRESSION: 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 No periprosthetic fracture is seen. No acute left hip abnormality is seen. Atherosclerotic calcifications arepresent bilaterally. [id number] CT ANGIO CHEST PE PROTOCOL Result Date: [...] above interpretation and agree with the findings. [id number] XR HIP RIGHT 1 VIEW Result Date: 02/16/2024 Findings/impression: Redemonstrated right femoral neck fracture, not significantly changed. No left-sided hip fracture or dislocation. Mild degenerative changes of the left hip. The soft tissues are unremarkable. [id number] XR HIP LEFT 2-3 VIEWS OPTIONAL PELVIS Result Date: 02/16/2024 Findings/impression: Redemonstrated right femoral neck fracture, not significantly changed. No left-sided hip fracture or dislocation. Mild degenerative changes of the left hip. The soft tissues are unremarkable. [id number] XR CHEST PORTABLE 1 VIEW Result Date: 02/16/2024 Small bilateral pleural effusions. Slight interval increase in patchy airspace opacities at both lung bases and in the suprahilar right lung. [id number] Assessment/Plan Assessment Noe Sue is a 83 y.o. male with a PMHx of COPD (3-5L home oxygen), possible AF (he denies ever being told he has AF), GERD, and HTN, who was transferred from [facility] to [facility] and then [facility] for surgical management of a [...] Symbicort q12h (LABA/ICS), spiriva daily to replace SIZER MACHINE LAMA - Hold SIZER MACHINE Anoro Ellipta (LAMA/LABA) - Wean off of supplemental O2 as tolerated - Maintain SpO2 88-92% - RT following, airway clearance - On discharge would need good pulmonology FU, could benefit from pulmonary rehab. Severe pulmonary HTN with RV failure Suspect group 3 pulm HTN (2/2 lung disease) S/p lasix 160 mg and 5 mg metolazone 02/16/24 at [facility] prior to transfer. Multiple doses of IV lasix given, titrated to kidney function and respiratory function. - Oral diuresis with lasix 20mg. CHRISTIANO resolved. Patient's creatinine on admission 2.54, baseline Cr about 1 per note from [facility]. - Daily BMP - Strict I/Os Urinary Retention Denies retention at home but has thus far failed void trial 02/18 - remove lewis and repeat void trial today 02/22 Afib with RVR Patient denies h/o AF or taking eliquis, but report from [facility] said his last dose of eliquis was 02/13). EDGAR-VASc score of 4 with 4.8% stroke risk. - Started Eliquis 2.5mg BID (dose reduced given pt's advanced age, serum Cr., and weight) - Dc'd Telemetry monitoring d/t stable rate control over the past several days, low threshold to restart if rates sustained >110. - Continue SIZER MACHINE metoprolol XL 25 mg daily Right femoral [...] referral to the Fracture Liaison Service with [facility] Endocrinology - Lewis catheter placed due to urinary retention, removed 02/22 - Vit D 2000U/d - PT recs TANI Chronic: HTN - Cont SIZER MACHINE metoprolol XL 25 mg daily - Holding SIZER MACHINE amlodipine 10 mg daily GERD - SIZER MACHINE pantoprazole 40/d Constipation - Miralax BID, senna [...] medical complexity Plan: DVT/VTE Chemoprophylaxis: Inpatient plan: SIZER MACHINE Eliquis Discharge plan: Same Wound Care: Inpatient [...] and to the Fracture Liaison Service at [facility] endocrinology placed Pain management: Inpatient plan: Multimodal Discharge plan: Multimodal Antibiotics and other medications: Inpatient plan: Perioperative Ancef complete Discharge plan: None Diet: DIET REGULAR PT/OT: TANI Dispo: Pending TANI acceptance Orthopedics will continue to follow peripherally Russell Rodriguez MD 02/23/24 20:17 Orthopaedic Surgery, PGY-2 Pager [phone] Cosigned by Fred Fernández MD at 02/24/2024 [...] decreased Response: Mild response, increase subjective per PADDING MACHINE OPERATOR Pulse: <100 Resp Rate: 18-25 SOB: With [...] go to rehab closer to family in [place]. Objective Vital Signs Temp: [35.8 ??C (96.5 [...] effusions and bibasilar opacities compatible with atelectasis. [id number] XR HIP RIGHT 1 VIEW Result Date: 02/17/2024 FINDINGS/IMPRESSION: 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 No periprosthetic fracture is seen. No acute left hip abnormality is seen. Atherosclerotic calcifications arepresent bilaterally. [id number] XR HIP LEFT 1 VIEW Result Date: 02/17/2024 FINDINGS/IMPRESSION: 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 No periprosthetic fracture is seen. No acute left hip abnormality is seen. Atherosclerotic calcifications arepresent bilaterally. [id number] CT ANGIO CHEST PE PROTOCOL Result Date: [...] above interpretation and agree with the findings. [id number] XR HIP RIGHT 1 VIEW Result Date: 02/16/2024 Findings/impression: Redemonstrated right femoral neck fracture, not significantly changed. No left-sided hip fracture or dislocation. Mild degenerative changes of the left hip. The soft tissues are unremarkable. [id number] XR HIP LEFT 2-3 VIEWS OPTIONAL PELVIS Result Date: 02/16/2024 Findings/impression: Redemonstrated right femoral neck fracture, not significantly changed. No left-sided hip fracture or dislocation. Mild degenerative changes of the left hip. The soft tissues are unremarkable. [id number] XR CHEST PORTABLE 1 VIEW Result Date: 02/16/2024 Small bilateral pleural effusions. Slight interval increase in patchy airspace opacities at both lung bases and in the suprahilar right lung. [id number] Assessment/Plan Assessment Noe Sue is a 83 y.o. male with a PMHx of COPD (3-5L home oxygen), possible AF (he denies ever being told he has AF), GERD, and HTN, who was transferred from [facility] to [facility] and then [facility] for surgical management of a [...] Symbicort q12h (LABA/ICS), spiriva daily to replace SIZER MACHINE LAMA - Prednisone to 40 mg daily since 02/18 (Pt has received 2x 40mg 02/14-02/15 and 2x 30 mg prednisone 02/17 -02/18), duration tbd by respiratory status. - Hold SIZER MACHINE Anoro Ellipta (LAMA/LABA) - Wean off of supplemental O2 as tolerated - Maintain SpO2 88-92% - RT following, airway clearance - On discharge would need good pulmonology FU, could benefit from pulmonary rehab. Severe pulmonary HTN with RV failure Suspect group 3 pulm HTN (2/2 lung disease) S/p lasix 160 mg and 5 mg metolazone 02/16/24 at [facility] prior to transfer. Multiple doses of IV lasix given, titrated to kidney function and respiratory function. - Oral diuresis with lasix 20mg, will consider as longer term maintenance dosing. CHRISTIANO resolved. Patient's creatinine on admission 2.54, baseline Cr about 1 per note from [facility]. - Daily BMP - Strict I/Os Urinary Retention Denies retention at home but has thus far failed void trial 02/18 - remove lewis and repeat void trial today 02/22 Afib with RVR Patient denies h/o AF or taking eliquis, but report from [facility] said his last dose of eliquis was 02/13). EDGAR-VASc score of 4 with 4.8% stroke risk. - Started Eliquis 2.5mg BID (dose reduced given pt's advanced age, serum Cr., and weight) - Dc'd Telemetry monitoring d/t stable rate control over the past several days, low threshold to restart if rates sustained >110. - Continue SIZER MACHINE metoprolol XL 25 mg daily Right femoral [...] referral to the Fracture Liaison Service with [facility] Endocrinology - Lewis catheter placed due to urinary retention - Vit D 2000U/d - PT recs TANI Chronic: HTN - Cont SIZER MACHINE metoprolol XL 25 mg daily - Holding SIZER MACHINE amlodipine 10 mg daily GERD - SIZER MACHINE pantoprazole 40/d Constipation - Miralax BID, senna 2 tabs at night VTE Prophylaxis: apixaban 2.5mg BID Code status: Limitation of Treatment DNR Do not intubate (DNI) Disposition: awaiting TANI May Mauricio MD Internal Medicine, PGY-2 Epic chat Pager [phone] Attending Attestation I interviewed and examined the patient. I have personally reviewed interval events, laboratory data, and imaging. I discussed the case with the inpatient resident team. I agree with findings and planof care as documented by the resident (or have edited in blue). Cuco Vazquez MD Internal Medicine Hospitalist 02/23/24 21:26 * Julianne Pascal - 02/23/2024 1304 EST [facility] Department of Case Management and Social Work Case Management Progress Note Patient Name Level of Care and Accommodation Code: Patient Class: Medically Ready: Y/N Noe Sue Acute General Inpatient y Primary Dx: Decisional Capacity: Y/N Primary Support/ CareGiver: Advance Directive Acute hypoxic respiratory failure ([facility]) taylor Godinez Advance Directives (For Healthcare) Healthcare [...] been deemed appropriate for placement at a [facility] facility (SNF). Listed patient at the following facilities: [facility] and [facility] Explained to patient and/or family that patients [...] patient's family per patient's request Addendum: [facility] reviewing - concern for 02 stability - will look again on Monday [facility] - may have bed available on Monday - E-Signature TAMMY Navarrete Chilling Hood Operator II Epic chat preferred. 02/23/2024 13:08 [...] and to the Fracture Liaison Service at [facility] endocrinology placed Pain management: Inpatient plan: Multimodal Discharge plan: Multimodal Antibiotics and other medications: Inpatient plan: Perioperative Ancef complete Discharge plan: None Diet: DIET REGULAR PT/OT: TANI Dispo: Likely DC today Russell Rodriguez MD 02/22/24 21:31 Orthopaedic Surgery, PGY-2 Pager [phone] Cosigned by Nicholas Poole MD MPH at [...] decreased Response: Mild response, increase subjective per PADDING MACHINE OPERATOR Pulse: <100 Resp Rate: 18-25 SOB: With [...] Gunn, PT - 02/22/2024 1632 EST [facility] Rehabilitation Therapy Acute Therapy [facility] Physical Therapy Encounter Note Date of Service: 02/22/2024 Precautions: posterior R THR precautions, WBAT RLE SUBJECTIVE: Subjective Statements Comments: patient quiet throughout session. Increased work of breathing and placed on ventimask during session. Pateint agreeable to PT assisting with back to bed. OBJECTIVE: Interventions Completed Today: Physical Therapy Today At: Time: [id number] Total Treatment Time (minutes): 25 Present for [...] During therapy session, After therapy session By: [id number] communication Additional communication about Patient Status and [...] effusions and bibasilar opacities compatible with atelectasis. [id number] XR HIP RIGHT 1 VIEW Result Date: 02/17/2024 FINDINGS/IMPRESSION: 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 No periprosthetic fracture is seen. No acute left hip abnormality is seen. Atherosclerotic calcifications arepresent bilaterally. [id number] XR HIP LEFT 1 VIEW Result Date: 02/17/2024 FINDINGS/IMPRESSION: 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 No periprosthetic fracture is seen. No acute left hip abnormality is seen. Atherosclerotic calcifications arepresent bilaterally. [id number] CT ANGIO CHEST PE PROTOCOL Result Date: [...] above interpretation and agree with the findings. [id number] XR HIP RIGHT 1 VIEW Result Date: 02/16/2024 Findings/impression: Redemonstrated right femoral neck fracture, not significantly changed. No left-sided hip fracture or dislocation. Mild degenerative changes of the left hip. The soft tissues are unremarkable. [id number] XR HIP LEFT 2-3 VIEWS OPTIONAL PELVIS Result Date: 02/16/2024 Findings/impression: Redemonstrated right femoral neck fracture, not significantly changed. No left-sided hip fracture or dislocation. Mild degenerative changes of the left hip. The soft tissues are unremarkable. [id number] XR CHEST PORTABLE 1 VIEW Result Date: 02/16/2024 Small bilateral pleural effusions. Slight interval increase in patchy airspace opacities at both lung bases and in the suprahilar right lung. [id number] Assessment/Plan Assessment Noe Sue is a 83 y.o. male with a PMHx of COPD (3-5L home oxygen), possible AF (he denies ever being told he has AF), GERD, and HTN, who was transferred from [facility] to [facility] and then [facility] for surgical management of a [...] Symbicort q12h (LABA/ICS), spiriva daily to replace SIZER MACHINE LAMA - Prednisone to 40 mg daily since 02/18 (Pt has received 2x 40mg 02/14-02/15 and 2x 30 mg prednisone 02/17 -02/18), duration tbd by respiratory status. - Hold SIZER MACHINE Anoro Ellipta (LAMA/LABA) - Wean off of supplemental O2 as tolerated - Maintain SpO2 88-92% - RT following, airway clearance - On discharge would need good pulmonology FU, could benefit from pulmonary rehab. Severe pulmonary HTN with RV failure Suspect group 3 pulm HTN (2/2 lung disease) S/p lasix 160 mg and 5 mg metolazone 02/16/24 at [facility] prior to transfer. Multiple doses of IV lasix given, titrated to kidney function and respiratory function. - Oral diuresis with lasix 20mg, will consider as longer term maintenance dosing. CHRISTIANO Improving. Patient's creatinine on admission 2.54, baseline Cr about 1 per note from [facility]. - Daily BMP - Strict I/Os Afib with RVR Patient denies h/o AF or taking eliquis, but report from [facility] said his last dose of eliquis was 02/13). EDGAR-VASc score of 4 with 4.8% stroke risk. - Started Eliquis 2.5mg BID (dose reduced given pt's advanced age, serum Cr., and weight) - Dc'd Telemetry monitoring d/t stable rate control over the past several days, low threshold to restart if rates sustained >110. - Continue SIZER MACHINE metoprolol XL 25 mg daily Right femoral [...] referral to the Fracture Liaison Service with [facility] Endocrinology - Lewis catheter placed due to urinary retention - Vit D 2000U/d Chronic: HTN - Cont SIZER MACHINE metoprolol XL 25 mg daily - Holding SIZER MACHINE amlodipine 10 mg daily GERD - SIZER MACHINE pantoprazole 40/d Constipation - Miralax BID, senna [...] 12:50 * Farnaz Sanchez NP - 02/22/2024 2044 EST ORTHO CHAVA BRIEF NOTE Chart reviewed and patient's vitamin D noted to be 38 on admission for hip fracture from ground-level fall. Recommend discharging on 2000 IU vitamin D3 daily per orthopedic trauma service protocol. Referral for postoperative orthopedic follow up at 6 week post op and to the Fracture Liaison Serviceat [facility] endocrinology placed today. The above was discussed with the primary team. Fanraz Sanchez NP Ortho Trauma Pager [phone] * Russell Rodriguez MD - 02/22/2024 7738 EST Orthopaedic Surgery Progress Note Admit Date: [...] MD 02/21/24 18:56 Orthopaedic Surgery, PGY-2 Pager [phone] Cosigned by Jareth Jim MD at 02/22/2024 [...] a small amount of thick, zheng/white sputum. FwU7hic 90's when patient is resting with dips [...] effusions and bibasilar opacities compatible with atelectasis. [id number] XR HIP RIGHT 1 VIEW Result Date: 02/17/2024 FINDINGS/IMPRESSION: 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 No periprosthetic fracture is seen. No acute left hip abnormality is seen. Atherosclerotic calcifications arepresent bilaterally. [id number] XR HIP LEFT 1 VIEW Result Date: 02/17/2024 FINDINGS/IMPRESSION: 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 No periprosthetic fracture is seen. No acute left hip abnormality is seen. Atherosclerotic calcifications arepresent bilaterally. [id number] CT ANGIO CHEST PE PROTOCOL Result Date: [...] above interpretation and agree with the findings. [id number] XR HIP RIGHT 1 VIEW Result Date: 02/16/2024 Findings/impression: Redemonstrated right femoral neck fracture, not significantly changed. No left-sided hip fracture or dislocation. Mild degenerative changes of the left hip. The soft tissues are unremarkable. [id number] XR HIP LEFT 2-3 VIEWS OPTIONAL PELVIS Result Date: 02/16/2024 Findings/impression: Redemonstrated right femoral neck fracture, not significantly changed. No left-sided hip fracture or dislocation. Mild degenerative changes of the left hip. The soft tissues are unremarkable. [id number] XR CHEST PORTABLE 1 VIEW Result Date: 02/16/2024 Small bilateral pleural effusions. Slight interval increase in patchy airspace opacities at both lung bases and in the suprahilar right lung. [id number] Assessment/Plan Assessment Noe Sue is a 83 y.o. male with a PMHx of COPD (3-5L home oxygen), possible AF (he denies ever being told he has AF), GERD, and HTN, who was transferred from [facility] to [facility] and then [facility] for surgical management of a [...] Symbicort q12h (LABA/ICS), spiriva daily to replace SIZER MACHINE LAMA - Prednisone to 40 mg daily since 02/18 (Pt has received 2x 40mg 02/14-02/15 and 2x 30 mg prednisone 02/17 -02/18), duration tbd by respiratory status. - Hold SIZER MACHINE Anoro Ellipta (LAMA/LABA) - Wean off of supplemental O2 as tolerated - Maintain SpO2 88-92% - RT following, airway clearance - On discharge would need good pulmonology FU, could benefit from pulmonary rehab. Severe pulmonary HTN with RV failure Suspect group 3 pulm HTN (2/2 lung disease) S/p lasix 160 mg and 5 mg metolazone 02/16/24 at [facility] prior to transfer and 100 mg at [facility] with last dose 40 mg yesterday. Patient continue to have a net negative output, and although improved, continue to have respiratory stress, will reevaluate need for additional diuresis based on lab results - Repeat diuresis with Furosemide 40mg IV 02/20 CHRISTIANO Slight increase in Cr after downtrending. Patient's creatinine on admission 2.54, baseline Cr about 1 per note from [facility]. Hard to determine if worsening of CHRISTIANO is driven by hypo- or hypervolemia.Evaluating decision of diuresis daily based on creatinine. - Daily BMP - Strict I/Os Afib with RVR (Patient denies h/o AF or taking eliquis, but report from [facility] said his last dose of eliquis was 02/13). EDGAR-VASc score of 4 with 4.8% stroke risk. - Started Eliquis 2.5mg BID (dose reduced given pt's advanced age, serum Cr., and weight) - Ortho agrees with plan - Telemetry monitoring (multiple Afib episodes) - Continue SIZER MACHINE metoprolol XL 25 mg daily Right femoral [...] Vit D 1000U/d Chronic: HTN - Cont SIZER MACHINE metoprolol XL 25 mg daily - Holding SIZER MACHINE amlodipine 10 mg daily GERD - SIZER MACHINE pantoprazole 40/d Constipation - Miralax BID, senna [...] with Dr. Ceja Subjective: 24 hours: PT: ATNI O2: On venti mask Patient seen resting [...] MD 02/20/24 12:42 Orthopaedic Surgery, PGY-2 Pager [phone] Cosigned by Nigel Brock MD at 02/21/2024 [...] REASON FOR ADMISSION: Acute hypoxic respiratory failure ([facility]) Patient understands reason for admission: PATIENT INFO VERIFIED: Contact Info, Address Type of housing (single family, condo, apartment, correction, single room occupancy, [facility] funded hotel room, group senior living) - [facility] Who does the patient live with? Significant [...] No Final Discharge Destination: home with CULTURAL, TEMPLE and/or LANGUAGE factors affecting health care/discharge planning: [...] PT/OT, Nurse visit DME Provider: Darrel Pharmacy: [id number] - [place], [place] - [address] [id number] Home Health: [facility] Other: POST HOSPITAL TRANSITION PLAN: Noe Sue is a 83 y.o. male with a PMHx of COPD (3-5L home oxygen), possible AF (he denies ever being told he has AF), GERD, and HTN, who was transferred from [facility] and then [facility] for surgical management of a right femoral neck fracture in the setting of acute on chronic respiratory failure and severe PaHTN. Patient is stable, still requiring significant supplemental oxygen requiring hospitalization. CM met with patient in room to introduce self and CM role. Patient appeared A&Ox3, and noted significant discomfort, [place]. Patient reported that he lives with his partener, Gretchen, who is able toprovide support as needed. He stated that he uses a walker and sometimes a wheelchair at home, and has all the stuff he needs for DME. Patient reported that he was receiving SN and PT services from [facility] prior to hospitalization. CM confirmed with agency that they will need resumption of services noted in d/c summary, and notification of his discharge date when determined. Patient's home 02 supplier is [employer]. His family will be able to provide transportation at discharge. Pt enrolled in M2B. CM will continue to follow and coordinate a safe discharge. TAMMY Navarrete Chilling Hood Operator II Epic chat preferred. 02/20/2024 12:04 JULIANNE PASCAL 02/20/2024 11:55 * Laine Coe, PT - 02/20/2024 0006 EST [facility] Rehabilitation Therapy Acute Therapy [facility] Initial Evaluation Note Date of [...] 02/16/2024 secondary to Acute hypoxic respiratory failure ([facility]). The patient lives at [address] [place] [address] History of Present Illness / Injury Current Illness / Injury: per MD:Noe Sue is a 83 y.o. male with a PMHx of COPD (3-5L home oxygen), possible AF (he denies ever being told he has AF), GERD, and HTN, who was transferred from [facility] to [facility] and then [facility] for surgical management of a [...] Nurse When: Prior to therapy session By: [id number] communication Additional communication about Patient Status and [...] by the physical therapist and/or physical therapist printing bindery assistant when medically appropriate Frequency: 1-3 times/week [...] effusions and bibasilar opacities compatible with atelectasis. [id number] XR HIP RIGHT 1 VIEW Result Date: 02/17/2024 FINDINGS/IMPRESSION: 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 No periprosthetic fracture is seen. No acute left hip abnormality is seen. Atherosclerotic calcifications arepresent bilaterally. [id number] XR HIP LEFT 1 VIEW Result Date: 02/17/2024 FINDINGS/IMPRESSION: 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 No periprosthetic fracture is seen. No acute left hip abnormality is seen. Atherosclerotic calcifications arepresent bilaterally. [id number] CT ANGIO CHEST PE PROTOCOL Result Date: [...] above interpretation and agree with the findings. [id number] XR HIP RIGHT 1 VIEW Result Date: 02/16/2024 Findings/impression: Redemonstrated right femoral neck fracture, not significantly changed. No left-sided hip fracture or dislocation. Mild degenerative changes of the left hip. The soft tissues are unremarkable. [id number] XR HIP LEFT 2-3 VIEWS OPTIONAL PELVIS Result Date: 02/16/2024 Findings/impression: Redemonstrated right femoral neck fracture, not significantly changed. No left-sided hip fracture or dislocation. Mild degenerative changes of the left hip. The soft tissues are unremarkable. [id number] XR CHEST PORTABLE 1 VIEW Result Date: 02/16/2024 Small bilateral pleural effusions. Slight interval increase in patchy airspace opacities at both lung bases and in the suprahilar right lung. [id number] Assessment/Plan Assessment Noe Sue is a 83 y.o. male with a PMHx of COPD (3-5L home oxygen), possible AF (he denies ever being told he has AF), GERD, and HTN, who was transferred from [facility] to [facility] and then [facility] for surgical management of a [...] Symbicort q12h (LABA/ICS), spiriva daily to replace SIZER MACHINE LAMA - Hold SIZER MACHINE Anoro Ellipta (LAMA/LABA) - Wean off of [...] mg and 5 mg metolazone 02/16/24 at [facility] prior to transfer and 20 mg at [facility] 02/17. Patient have a net negative output and continue to have respiratory stress, thus might benefit from additional diuresis. - Repeat 40mg IV lasix Afib with RVR (Patient denies h/o AF or taking eliquis, but report from [facility] said his last dose of eliquis was 02/13). EDGAR-VASc score of 4 with 4.8% stroke risk. - Started Eliquis 2.5mg BID (dose reduced given pt's advanced age, serum Cr., and weight) - Ortho agrees with plan - Telemetry monitoring - Continue SIZER MACHINE metoprolol XL 25 mg daily CHRISTIANO improving, Patient's creatinine on admission 2.54 but has been trending down, baseline Cr about1 per note from [facility] - Daily BMP - Strict I/Os - [...] Vit D 1000U/d Chronic: HTN - Cont SIZER MACHINE metoprolol XL 25 mg daily - Holding SIZER MACHINE amlodipine 10 mg daily GERD - SIZER MACHINE pantoprazole 40/d Constipation - Miralax BID, senna [...] MD 02/19/24 17:42 Orthopaedic Surgery, PGY-2 Pager [phone] Cosigned by Jareth Jim MD at 02/20/2024 [...] Date 02/19/24 0700 - 02/20/24 0659 Shift [id number] 24 Hour Total INTAKE P.O. 360 360 [...] effusions and bibasilar opacities compatible with atelectasis. [id number] XR HIP RIGHT 1 VIEW Result Date: 02/17/2024 FINDINGS/IMPRESSION: 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 No periprosthetic fracture is seen. No acute left hip abnormality is seen. Atherosclerotic calcifications arepresent bilaterally. [id number] XR HIP LEFT 1 VIEW Result Date: 02/17/2024 FINDINGS/IMPRESSION: 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 No periprosthetic fracture is seen. No acute left hip abnormality is seen. Atherosclerotic calcifications arepresent bilaterally. [id number] CT ANGIO CHEST PE PROTOCOL Result Date: [...] above interpretation and agree with the findings. [id number] XR HIP RIGHT 1 VIEW Result Date: 02/16/2024 Findings/impression: Redemonstrated right femoral neck fracture, not significantly changed. No left-sided hip fracture or dislocation. Mild degenerative changes of the left hip. The soft tissues are unremarkable. [id number] XR HIP LEFT 2-3 VIEWS OPTIONAL PELVIS Result Date: 02/16/2024 Findings/impression: Redemonstrated right femoral neck fracture, not significantly changed. No left-sided hip fracture or dislocation. Mild degenerative changes of the left hip. The soft tissues are unremarkable. [id number] XR CHEST PORTABLE 1 VIEW Result Date: 02/16/2024 Small bilateral pleural effusions. Slight interval increase in patchy airspace opacities at both lung bases and in the suprahilar right lung. [id number] Assessment/Plan Assessment Noe Sue is a 83 y.o. male with a PMHx of COPD (3-5L home oxygen), possible AF (he denies ever being told he has AF), GERD, and HTN, who was transferred from [facility] to [facility] and then [facility] for surgical management of a [...] q12h (LABA/ICS), add spiriva daily to replace SIZER MACHINE LAMA - Hold SIZER MACHINE Anoro Ellipta (LAMA/LABA) - Wean off of [...] mg and 5 mg metolazone 02/16/24 at [facility] prior to transfer and 20 mg at [facility] 02/17. Patient have a net negative output and continue to have respiratory stress, thus might benefit from additional diuresis. - Furosemide 40 mg ordered nowx1 02/18 Afib with RVR (Patient denies h/o AF or taking eliquis, but report from [facility] said his last dose of eliquis was 02/13). EDGAR-VASc score of 4 with 4.8% stroke risk. - Start Eliquis 2.5mg BID (dose reduced given pt's advanced age, serum Cr., and weight) - Ortho agrees with plan - Telemetry monitoring - Continue SIZER MACHINE metoprolol XL 25 mg daily CHRISTIANO improving, Patient's creatinine on admission 2.54 but has been trending down, baseline Cr about1 per note from [facility] - Daily BMP - Strict I/Os Right [...] level (cont supplement) Chronic: HTN - Cont SIZER MACHINE metoprolol XL 25 mg daily - Holding SIZER MACHINE amlodipine 10 mg daily GERD - SIZER MACHINE pantoprazole Constipation - Stool softer VTE Prophylaxis: [...] Add LDA for any identified wounds Add [place] image for any suspected PI or non surgical wounds Order wound consult if suspected PI identified If Hernando is < or = to 16, initiate Pressure Injury Prevention Bundle ([id number]). 02/18/2024 14:56 * Get Escalante RT - 02/18/2024 1333 EST Images from the original note were not included. Respiratory Progress Note Indications for Respiratory therapy: COPD increased O2 requirement Data Vitals: Heart Rate: 85 BPM, Resp: 18, SpO2: 92 % FIO2/O2 Device: 6 lpm NC, , O2 Device: Nasal cannula, RT Orders: 02/18/24 1700 Airway Clearance Therapy [[id number]] 4 TIMES DAILY Discontinue Reschedule 02/18/24 1333 [...] aspirin, who presents to transfer initially from [facility] after a fall and whom orthopedics [...] abnormality is seen. Atherosclerotic calcifications arepresent bilaterally. [id number] XR HIP LEFT 1 VIEW Result Date: 02/17/2024 FINDINGS/IMPRESSION: 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 No periprosthetic fracture is seen. No acute left hip abnormality is seen. Atherosclerotic calcifications arepresent bilaterally. [id number] CT ANGIO CHEST PE PROTOCOL Result Date: [...] above interpretation and agree with the findings. [id number] XR HIP RIGHT 1 VIEW Result Date: 02/16/2024 Findings/impression: Redemonstrated right femoral neck fracture, not significantly changed. No left-sided hip fracture or dislocation. Mild degenerative changes of the left hip. The soft tissues are unremarkable. [id number] XR HIP LEFT 2-3 VIEWS OPTIONAL PELVIS Result Date: 02/16/2024 Findings/impression: Redemonstrated right femoral neck fracture, not significantly changed. No left-sided hip fracture or dislocation. Mild degenerative changes of the left hip. The soft tissues are unremarkable. [id number] XR CHEST PORTABLE 1 VIEW Result Date: 02/16/2024 Small bilateral pleural effusions. Slight interval increase in patchy airspace opacities at both lung bases and in the suprahilar right lung. [id number] Medications: Scheduled: acetaminophen, 1,000 mg, Q6H aspirin [...] GERD, and hypertension, who was transferred from [facility] to [facility] and then [facility] for preoperative optimization for surgicalmanagement of a right femoral neck fracture. Hospital course at [facility] complicated by acute on chronic hypoxic hypercapenic respiratory failure 2/2 COPD exacerbation vs. community acquired pneumonia. Found to have pulmonary HTN and severe RV dilation with evidence of volume overload, s/p IV diuresis. Started on HFNC at [facility] and then [facility]to [facility] MICU for monitoring prior to [...] O2 as tolerated -Maintain SpO2 88-92% -Replace SIZER MACHINE Anoro Ellipta with Symbicort -Prednisone 40mg daily, decrease to 30mg daily (02/14-02/18) -Duoneb q6h -Ceftriaxone + doxycycline (02/14 - 02/18) -CTA PE 02/15: No evidence of PE, patchy opacity in peripheral RML, lingula, posterior segment or RUL -Bilateral pleural effusions, atherosclerosis of thoracic aorta and coronary artery/aortic valve ID Possible COPDe vs community acquired pneumonia Was started on CAP coverage at [facility]. Legionella, strep pneumo and MRSA negative. Procal [...] mg and 5 mg metolazone 02/16/24 at [facility] prior to transfer - No additional diuresis 02/16 or 02/17 CV risk assessment Surgery is urgent with hip surgery classified as intermediate risk - Orta RCRI: 2-3 points depending on whether you define Tn elevation as a type II IN or myocardial injury (additional points for heart failure, Cr >2 mg/dL). My opinion is that this is simply myocardial injury in the context of RV strain and heart failure but this is impossible to prove. - Overall this indicates elevated risk (/IN/arrest of ~10-15% within a month of surgery) [...] he is taking eliquis, but report from [facility] said his last dose of eliquis was 02/13.S/p dilt drip at [facility]. -Telemetry monitoring -Trend lytes and replete (Mag >2) -Rate control goal < 110 -SIZER MACHINE ASA 81mg daily -Discontinue amiodarone gtt -Resume SIZER MACHINE metop succinate 25mg daily #Myocardial injury in the context of RV strain Suspect 2/2 demand ischemia, trop trending down. -Telemetry monitoring #HTN -Resume SIZER MACHINE metoprolol succinate 25mg daily -Hold SIZER MACHINE amlodipine 10mg daily GI #GERD -SIZER MACHINE pantoprazole Hemeonc #Leukocytosis, improving Likely iso possible [...] REGULAR VTE Prophylaxis: Heparin SC GI Prophylaxis: SIZER MACHINE PPI Code status: Limitation of Treatment DNR [...] above interpretation and agree with the findings. [id number] XR HIP RIGHT 1 VIEW Result Date: 02/16/2024 Findings/impression: Redemonstrated right femoral neck fracture, not significantly changed. No left-sided hip fracture or dislocation. Mild degenerative changes of the left hip. The soft tissues are unremarkable. [id number] XR HIP LEFT 2-3 VIEWS OPTIONAL PELVIS Result Date: 02/16/2024 Findings/impression: Redemonstrated right femoral neck fracture, not significantly changed. No left-sided hip fracture or dislocation. Mild degenerative changes of the left hip. The soft tissues are unremarkable. [id number] XR CHEST PORTABLE 1 VIEW Result Date: 02/16/2024 Small bilateral pleural effusions. Slight interval increase in patchy airspace opacities at both lung bases and in the suprahilar right lung. [id number] Medications: Scheduled: [Transfer Hold] acetaminophen, 1,000 mg, [...] GERD, and hypertension, who was transferred from [facility] to [facility] and then [facility] for preoperative optimization for surgicalmanagement of a right femoral neck fracture. Hospital course at [facility] complicated by acute on chronic hypoxic hypercapenic respiratory failure 2/2 COPD exacerbation vs. community acquired pneumonia. Found to have pulmonary HTN and severe RV dilation with evidence of volume overload and diuresed. Started on HFNC at [facility] and then transferred to [facility] MICU for monitoring overnight prior [...] O2 as tolerated -Maintain SpO2 88-92% -Replace SIZER MACHINE Anoro Ellipta with Symbicort -Prednisone 40mg daily x5 days (02/14-02/18) -S/p lasix 160 mg and 5 mg metolazone at [facility] prior to transfer -Duoneb q6h -Ceftriaxone + doxycycline (02/14 - ) -CTA PE 02/15: No evidence of PE, patchy opacity in peripheral RML, lingula, posterior segment or RUL -Bilateral pleural effusions, atherosclerosis of thoracic aorta and coronary artery/aortic valve ID Possible COPDe vs community acquired pneumonia Was started on CAP coverage at [facility]. Legionella, strep pneumo and MRSA negative. Procal [...] mg and 5 mg metolazone 02/16/24 at [facility] prior to transfer - Will hold off [...] define Tn elevation as a type II IN or myocardial injury (additional points for heart failure, Cr >2 mg/dL). My opinion is that this is simply myocardial injury in the context of RV strain and heart failure but this is impossible to prove. - Overall this indicates elevated risk (/IN/arrest of ~10-15% within a month of surgery) [...] he is taking eliquis, but report from [facility] said his last dose of eliquis was 11/6.S/p dilt drip at [facility]. -Telemetry monitoring -Trend lytes and replete (Mag >2) -Rate control goal < 110 -SIZER MACHINE ASA 81mg daily -Amiodarone gtt continue at 0.5 -UFH level and coags - Will discuss with ortho after OR regarding DVT ppx vs full dose AC #Myocardial injury in the context of RV strain Suspect 2/2 demand ischemia, trop trending down. -Telemetry monitoring #HTN -Hold SIZER MACHINE metoprolol succinate 25mg daily -Hold SIZER MACHINE amlodipine 10mg daily GI #GERD -SIZER MACHINE pantoprazole Hemeonc #Leukocytosis, improving Likely iso possible [...] Will start after OR today GI Prophylaxis: SIZER MACHINE PPI Code status: Limitation of Treatment DNR Do not intubate (DNI) Disposition/discharge planning: Pending operative/clinical course Admission status Inpatient admission due to anticipated duration of hospitalization is two midnights or greater due to Acute hypoxic respiratory failure. Hema Cazares MD Internal Medicine, PGY-2 Epic Chat (prefer) Pgr#[phone] Attending attestation statement: I saw and examined [...] 1. Closed right hip fracture, initial encounter ([facility]) Critical Care time was provided in the [...] Ale Bruce - 02/17/2024 1137 EST [facility] Spiritual Care Note Re: Noe Sue : 1940, AGE: 83 y.o. ROOM: [place] [address] BACKGROUND Referral visit. Patient appeared having hard time to hear. Patient said he was okay and no need to talk a document scanner or a statistical financial analyst at that time. Patient had a visitor, his granddaughter. INTERVENTIONS Presence Introducing spiritual care CARE PLAN Continued document scanner visit if needed RECOMMENDATIONS: None Matheus Napier, [facility] Inventory Checker Jareth 131 Thank you for the opportunity to provide for this patient's/family's spiritual needs. * Farnaz Moreno RT - 02/17/2024 0912 EST Respiratory Progress Note Indications for Respiratory [...] aspirin, who presents to transfer initially from [facility] after a fall and whom orthopedics was consulted for a right femoral neck fracture. Plan for operative management today. P: OR today for open treatment of right hip fracture WB -bedrest Lewis Abx - 2g Ancef garage construction equipment mechanic to the OR DVT prophylaxis -asked to [...] Add LDA for any identified wounds Add [place] image for any suspected PI or non surgical wounds Order wound consult if suspected PI identified If Hernando is < or = to 16, initiate Pressure Injury Prevention Bundle ([id number]). 02/16/2024 18:43 * Morenita Yee RT - [...] decreased Response: Mild response, increase subjective per PADDING MACHINE OPERATOR Pulse: >100 Resp Rate: 18-25 SOB: At [...] home as needed; Do not see on SIZER MACHINE meds. Duoneb given per order. RT RANDI 02/16/24 documented in this encounter H&P Notes * Ritesh Cardenas MD - 02/16/2024 6347 EST MICU Admission History & Physical Service Date: 02/16/2024 Admit Date: 02/16/2024 15:41 Primary Care Provider: SUZIE VILLAGOMEZ Chief Complaint: Fall HPI Noe Sue is a 83 y.o. male with a PMHx of HTN, GERD, COPD (on 3-5 L NC baseline) and atrial fibrillation (unclear if on AC), who presented to [facility] s/p fall andwas found to have [...] chest pain, shortness of breath, or cough. [facility] ED labs notable for WBC 22, procal 3, creatinine 3 (baseline ~1), and potassium 6. He was subsequently transferred to [facility] 02/14 for surgical management. On arrival, temp [...] -->0.244. He was confirmed DNR/DNI. Transferred from [facility] to [facility] MICU for preoperative optimization. On arrival to [facility], Noe says that he feels [...] bases and in the suprahilar right lung. [id number] TTE 02/16/24: Left Ventricle: Left ventricular systolic [...] GERD, and hypertension, who was transferred from [facility] to [facility] and then [facility] for preoperative optimization for surgicalmanagement of a right femoral neck fracture. Hospital course at [facility] complicated by acute on chronic hypoxic hypercapenic respiratory failure 2/2 COPD exacerbation vs. community acquired pneumonia. Found to have pulmonary HTN and severe RV dilation with evidence of volume overload and diuresed. Started on HFNC at [facility] and then transferred to [facility] MICU for monitoring overnight prior [...] O2 as tolerated -Maintain SpO2 88-92% -Replace SIZER MACHINE Anoro Ellipta with Symbicort -Prednisone 40mg daily x5 days (02/14-02/18) -S/p lasix 160 mg and 5 mg metolazone early today at [facility] prior to transfer -Duoneb q6h -Ceftriaxone + doxycycline (02/14 - ) -CTA PE Effusions are small and risk>benefit for thoracentesis at this point in time Wean O2 as able ID Possible COPDe vs community acquired pneumonia Was started on CAP coverage at [facility]. Legionella, strep pneumo and MRSA negative. Procal [...] and 5 mg metolazone early today at [facility] prior to transfer -Strict I/Os -Goal net [...] define Tn elevation as a type II IN or myocardialinjury (additional points for heart failure, Cr >2 mg/dL). My opinion is that this is simply myocardial injury in the context of RV strain and heart failure but this is impossible to prove. Overall this indicates elevated risk (/IN/arrest of ~10-15% within a month of surgery) [...] he is taking eliquis, but report from [facility] said his last dose of eliquis was 02/13.S/p dilt drip at [facility]. -Telemetry monitoring -Trend lytes and replete (Mag >2) -Rate control goal < 110 -SIZER MACHINE ASA 81mg daily -Amiodarone gtt -UFH level and coags Myocardial injury in the context of RV strain Suspect 2/2 demand ischemia, trop trending down. -Telemetry monitoring HTN -Hold SIZER MACHINE metoprolol succinate 25mg daily -Hold SIZER MACHINE amlodipine 10mg daily GI GERD -SIZER MACHINE pantoprazole Hemeonc Leukocytosis, improving Likely iso possible [...] 1. Closed right hip fracture, initial encounter ([facility]) Critical Care time was provided in the [...] home, GERD, hypertension who originally presented to [facility] for hip fracture. Pulmonary Medicine is [...] been diuresed. He does not have a outcome analyst at this time, although he lives in the [facility] and is interested in establishing care with a outcome analyst there. He is a former smoker, having [...] home, GERD, hypertension who originally presented to [facility] for hip fracture. Pulmonary Medicine is [...] lung disease. Would recommend referral to a outcome analyst out in his [place] area. Would be reasonable to start him onStiolto given the different administration mechanism. Further care can be managed outpatient, is appropriate for Oxymizer at rehab. He should preoxygenated with the Oxymizer for several minutes before he gets up and moves around. When he is finally home, would be reasonable candidate for pulmonary r ehab, however will defer to his outpatient outcome analyst that he establishes care to set that [...] Attending Physician Pulmonary Disease-Critical Care Medicine [facility] * Char Martinez MD - 02/16/2024 1603 EST Orthopaedic Surgery Consultation Consultation requested by: Dr. Cardenas for: Right femoral neck fracture HPI: Noe Sue is a 83 y.o. male past medical history significant for COPD with chronic hypoxic respiratory failure (3-5L O2 at baseline), Atrial fibrillation on aspirin, who presents to transfer initially from [facility] for right femoral neck fracture after a fall where he had lab abnormalities with hyperkalemia and leukocytosis with an abnormal procalcitonin, and anesthesia was uncomfortable doing surgery due to the patient's oxygen requirements so he was then transferred to [facility] where his admission was complicated by acute on chronic hypoxic and hypercarbic respiratory failure secondary to COPD exacerbation, and was placed on high flow nasal cannula and had atrial fibrillation with RVR and was placed on a diltiazem infusion and switched to an amio infusion.He had an echo at [facility] that demonstrated severe pulmonary hypertension and he [...] transcervical femoral neck fracture. Assessment: Noe Sue [id number] 1940 Noe Sue is a 83 y.o. male with past medical history significant for COPD with chronic hypoxic respiratory failure (3-5L O2 at baseline), Atrial fibrillation on aspirin, who presents to transfer initially from [facility] for right femoral neck fracture after a fallwhere he had lab abnormalities with hyperkalemia and leukocytosis with an abnormal procalcitonin, and anesthesia was uncomfortable doing surgery due to the patient's oxygen requirements so he was then transferred to [facility] where his admission was complicated by acute on chronic hypoxic and hypercarbic respiratory failure secondary to COPD exacerbation, and was placed on high flow nasal cannula and had atrial fibrillation with RVR and was placed on a diltiazem infusion and switched to an amio infusion. He had an echo at [facility] that demonstrated severe pulmonary hypertension and he [...] MD PGY-2 Orthopaedic Surgery 02/16/2024 19:29 Pager #[phone], or EPIC Chat Cosigned by Augustine Ceja [...] days ago. He initially was transferred to from outside hospital for surgery for his right hip. Unfortunately he developed severe respiratory distress from his COPD and was admitted to the ICU on 02/16/2024. Due to the severity of his illness and not being able to undergo spinal anesthesia, request for transfer was made to [facility] for higher level of care. He was then transferred to the ICU at [facility], evaluated and deemed as optimized as [...] SERVICE DATE: 02/17/24 SURGEON: Augustine Ceja MD MANDOLIN REPAIR PERSON: DENITA THOMAS MD, Russell Rodriguez MD PREOPERATIVE DIAGNOSIS: Right displaced femoral neck fracture. POSTOPERATIVE DIAGNOSIS: Right displaced femoral neck fracture. PROCEDURE: Right hip cemented unipolar hemiarthroplasty (CPT 06641). ANESTHESIA: Epidural with IV sedation ESTIMATED BLOOD [...] fascia was closed with a combination of [id number] interrupted #1 vicryl and running #1 PDS [...] per MAR. Clustered care to promote rest. X2qicfo done. Safety ensured. Response: Patient able to [...] Plan Documentation Outcome: Ongoing Flowsheets (Taken 02/23/2024 0879) Area of Focus: Skin Integrity Goal This [...] GERD, and HTN, who was transferred from [facility] to [facility] and then [facility] forsurgical management of a right [...] this patient. Please contact us via SecureChat ([facility] Wound Care Team) or reconsult [...] Plan Documentation Outcome: Ongoing Flowsheets (Taken 02/19/2024 0354) Area of Focus: Respiratory Goal This Shift: [...] Goal: Care Plan Documentation Flowsheets (Taken 02/18/2024 1602) Area of Focus: Respiratory Goal This Shift: [...] abnormality is seen. Atherosclerotic calcifications arepresent bilaterally. [id number] XR HIP LEFT 1 VIEW Result Date: 02/17/2024 FINDINGS/IMPRESSION: 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 No periprosthetic fracture is seen. No acute left hip abnormality is seen. Atherosclerotic calcifications arepresent bilaterally. [id number] CT ANGIO CHEST PE PROTOCOL Result Date: [...] above interpretation and agree with the findings. [id number] XR HIP RIGHT 1 VIEW Result Date: 02/16/2024 Findings/impression: Redemonstrated right femoral neck fracture, not significantly changed. No left-sided hip fracture or dislocation. Mild degenerative changes of the left hip. The soft tissues are unremarkable. [id number] XR HIP LEFT 2-3 VIEWS OPTIONAL PELVIS Result Date: 02/16/2024 Findings/impression: Redemonstrated right femoral neck fracture, not significantly changed. No left-sided hip fracture or dislocation. Mild degenerative changes of the left hip. The soft tissues are unremarkable. [id number] XR CHEST PORTABLE 1 VIEW Result Date: 02/16/2024 Small bilateral pleural effusions. Slight interval increase in patchy airspace opacities at both lung bases and in the suprahilar right lung. [id number] Medications: Scheduled: acetaminophen, 1,000 mg, Q6H aspirin [...] GERD, and HTN, who was transferred to [facility] for management of a right [...] SpO2 88-92% -Cont Symbicort in place of SIZER MACHINE Anoro Ellipta -Prednisone for 2 more days (then reassess) -Duoneb q6h -airway clearance -Completes 5 day courses of Ceftriaxone + doxycycline today -Repeat chest CT in 1-3 months to reevaluate 1.1 cm spiculated lung nodule in the lingula Severe pulmonary HTN with RV failure (S/p lasix 160 mg and 5 mg metolazone 02/16/24 at [facility] prior [facility] - No additional diuresis Afib with RVR (Patient denies h/o AF or taking eliquis, but report from [facility] said his last dose of eliquis was 02/13) -Telemetry monitoring -Cont SIZER MACHINE metoprolol XL 25 mg daily -need to call PCP Monday and investigate question of AF and AC HTN -cont SIZER MACHINE metoprolol XL 25 mg daily -Holding SIZER MACHINE amlodipine 10 mg daily GI (GERD and constipation) -SIZER MACHINE pantoprazole -scheduled bowel Rx CHRISTIANO (improving, baseline Cr about 1 per note from [facility]) -Daily BMP -Strict I/Os Right femoral neck [...] pt to hospital closer to home (Prefers [facility]) Response: HR and BP stable, Occasional desat. Dressing c/d/I. Granddaughter at bedside. Continues on HFNC and amiodarone gtt. TRISHA TRAN RN 02/17/2024 21:59 Problem: Daily Care Plan Goals Goal: Care Plan Documentation Outcome: Ongoing Flowsheets (Taken 02/16/20241999 by Hilary Higgins, AHSVIN) Area of Focus: Respiratory Goal This Shift: [...] might see on the residents EOL process NEON TUBE BENDER APPROACHES: 1. Report and signs/symptoms of pain [...] Blood Loss: 150 cc Drains: None Implants: Cut Off Accolade C Size 4 132 degree Stem, Size 53mm +0 Unitrax Hancock Chrome Head, Size 11mm Centralizer, Medium Ontiveros Plug Implant Name Type Inv. Item Serial No. Hvac Journeyman Lot No. LRB No. Used Action RESTRICTOR CEMENT ONTIVEROS 25MM DISTAL FEM HIP RECON SURGERY ST - [id number] Total Joint Implant RESTRICTOR CEMENT ONTIVEROS 25MM DISTAL FEM HIP RECON SURGERY ST [id number] [employer] [id number] Right 1Implanted HIP FEMORAL STEM CMNTD 132DEG STD OFFST SZ 4 [id number] ACCOLADE C [id number] - [id number] Total Joint Implant HIP FEMORAL STEM CMNTD 132DEG STD OFFST SZ 4 [id number] ACCOLADE C [id number] Cut Off Orthopaedics [id number] Right 1 Implanted HIP SPACER STEM DISTAL CEMENTED 11MM ACCOLADE [id number] - [id number] Total Joint Implant HIP SPACER STEM DISTAL CEMENTED 11MM ACCOLADE [id number] [employer] [id number] Right 1 Implanted CEMENT BONE HIGH VISCOSITY TOBRAMYCIN RADIOPAQUE SINGLE DOSE YANES 40GM SIMPLEX [id number] - [id number] Ortho Implant CEMENT BONE HIGH VISCOSITY TOBRAMYCIN RADIOPAQUE SINGLE DOSE YANES 40GM SIMPLEX [id number] [facility] [id number] Right 2 Implanted HIP HEAD UNIPOLAR COCR 53MM UNITRAX [id number] - [id number] Total Joint Implant HIP HEAD UNIPOLAR [id number] UNITRAX [id number] [employer] [id number] Right 1 Implanted HIP TAPER SLEEVE STANDARD OFFSET FEMORAL V40 [id number] - [id number] Total Joint Implant HIP TAPER SLEEVE STANDARD OFFSET FEMORAL V40 [id number] [employer] [id number] Right 1 Implanted Closure: Monocryl, Dermabond, Mepilex [...] Care - Regine Jacobs RN - 02/17/2024 0902 EST Images from the original note were [...] admitted to MICU at approx 1600 from [facility], Patient admitted with Acute hypoxic respiratory failure ([facility]) Arrived on NRB 10L; transferred to [facility]; poor reserves, pt desats to low 80s [...] audible with doppler. Pt accompanied by MICU dust collector operator to CT for r/o PE. Monitored cardiovascular, [...] Info) Description 04/05/2024 10:[address] [facility] Xray [address] [place] [address] 04/05/2024 10:30 EST Post-op Visit [facility] - [facility] [address], [place] [id number] Ko Marquis PA-C [address] [place] [address] Scheduled Referrals Name Type Priority Associated Diagnoses Order Schedule AMB CONS/FOLLOW UP ENDOCRINOLOGY Outpatient Referral Routine/Next Available Osteoporosis with current pathological fracture, unspecified osteoporosis type, initial encounter Expected: 04/04/2024 (Approximate), Expires: 02/21/2025 AMB CONS/FOLLOW UP ORTHOPEDICS - [facility] Outpatient Referral Routine/Next Available Closed right hip fracture, initial encounter ([facility]) Expected: 03/23/2024 (Approximate), Expires: 02/21/2025 documented as [...] right hip fracture, initial encounter ([facility]) XR HIP LEFT 1 VIEW Routine 02/17/2024 15 :20 EST Closed right hip fracture, initial encounter ([facility]) OPEN TREATMENT, FRACTURE, FEMUR, NECK, WITH INTERNAL FIXATION OR INSERTION OF PROSTHETIC 02/17/2024 11:44 EST Closed right hip fracture, initial encounter ([facility]) PROTIME STAT 02/17/2024 11:41 EST COMPLETE BLOOD [...] 03/04/2024 11:3 9 EST us Scan 2 Chassis Inspector PROCEDURE/MINOR SURGICAL OR DERABLES Final Result * ECG REPORT - SCANNED (03/04/2024 9:35 EST) 03/04/2024 9:35 EST us Scan 2 Chassis Inspector PROCEDURE/MINOR SURGICAL OR DERABLES Final Result * ECG REPORT - SCANNED (02/28/2024 10:36 EST) 02/28/2024 10:3 6 EST us Scan 2 Chassis Inspector PROCEDURE/MINOR SURGICAL OR DERABLES Final Result * (ABNORMAL) COMPLETE BLOOD COUNT (02/28/2024 10:26 EST) WBC 16.63(H) 4.00 - 10.40 K/cmm 02/28/2024 11:06 [facility] RBC 3.09(L) 4.36 - 5.78 M/cmm 02/28/2024 11:06 [facility] Hemoglobin 10.3(L) 13.8 - 17.3 g/dL 02/28/2024 11:06 [facility] HCT 30.5(L) 39.5 - 50.2 % 02/28/2024 11:06 [facility] MCV 99(H) 81 - 95 fL 02/28/2024 11:06 [facility] MCH 33.3(H) 27.6 - 33.0 pg 02/28/2024 11:06 [facility] MCHC 33.8 32.8 - 36.4 g/dL 02/28/2024 11:06 [facility] RDW-CV 15.2(H) <14.2 % 02/28/2024 11:06 [facility] RDW-SD 55.3(H) <46.0 fl 02/28/2024 11:06 [facility] PLT 362 141 - 377 K/cmm 02/28/2024 11:06 [facility] MPV 10.1 9.5 - 12.7 fL 02/28/2024 11:06 [facility] Blood VENOUS BLOOD / Unknown Venipuncture / Unknown 02/28/2024 10:26 EST 02/28/2024 10:54 EST us Psuhpa Welch MD HEMATOLOGY & PF4 ORDERABLES F inal Result Performing Organization Address City/[facility]/ZIP Co de Phone Number [facility] [address] [place] [address] * (ABNORMAL) BASIC METABOLIC PANEL (BMP) (02/28/2024 10:26 EST) Sodium 137 136 - 145 mmol/L 02/28/2024 11:44 [facility] Potassium 3.7 3.5 - 5.0 mmol/L 02/28/2024 11:44 [facility] Chloride 95(L) 96 - 110 mmol/L 02/28/2024 11:44 [facility] CO2 Total 38(H) 22 - 32 mmol/L 02/28/2024 11:44 [facility] Anion Gap 4(L) 5 - 14 mmol/L 02/28/2024 11:44 [facility] Glucose 127(H) 70 - 99 mg/dl 02/28/2024 11:44 [facility] Calcium 8.4(L) 8.5 - 10.5 mg/dL 02/28/2024 11:44 [facility] BUN 34(H) 10 - 26 mg/dL 02/28/2024 11:44 [facility] Creatinine 1.32(H) 0.66 - 1.25 mg/dL 02/28/2024 11:44 [facility] eGFR 53(L) >60 mL/min/1.73 m2 02/28/2024 11:44 [facility] Blood VENOUS BLOOD / Unknown Venipuncture / Unknown 02/28/2024 10:26 EST 02/28/2024 10:55 EST Pushpa Welch MD CHEMISTRY & BLOOD GAS ORDERAB LES Final Result Performing Organization Address City/[facility]/ZIP Co de Phone Number [facility] [address] [place] [address] * (ABNORMAL) NT PRO BNP (02/27/2024 15:55 EST) NT-pro BNP 1,210(H) <326 pg/mL 02/27/2024 16:57 [facility] Comment: In the acute setting NT-proBNP values <300 pg/mL have a 98% NPV for excluding acute heart failure. In outpatient populations, NT-proBNP values <125 have a 99% NPV for excluding heart failure. Blood VENOUS BLOOD / Unknown Venipuncture / Unknown 02/27/2024 15:55 EST 02/27/2024 16:02 EST us Bryan Weiss MD CHEMISTRY & BLOOD GAS ORDERABL ES Final Result [facility] [address] [place] [address] * (ABNORMAL) BASIC METABOLIC PANEL (BMP) (02/27/2024 15:55 EST) Sodium 137 136 - 145 mmol/L 02/27/2024 16:57 [facility] Potassium 4.0 3.5 - 5.0 mmol/L 02/27/2024 16:57 [facility] Chloride 94(L) 96 - 110 mmol/L 02/27/2024 16:57 [facility] CO2 Total 36(H) 22 - 32 mmol/L 02/27/2024 16:57 [facility] Anion Gap 7 5 - 14 mmol/L 02/27/2024 16:57 [facility] Glucose 184(H) 70 - 99 mg/dl 02/27/2024 16:57 [facility] Calcium 8.4(L) 8.5 - 10.5 mg/dL 02/27/2024 16:57 [facility] BUN 37(H) 10 - 26 mg/dL 02/27/2024 16:57 [facility] Creatinine 1.34(H) 0.66 - 1.25 mg/dL 02/27/2024 16:57 [facility] eGFR 52(L) >60 mL/min/1.73 m2 02/27/2024 16:[address] [facility] Blood VENOUS BLOOD / Unknown Venipuncture / Unknown 02/27/2024 15:55 EST 02/27/2024 16:02 EST us Pushpa Welch MD CHEMISTRY & BLOOD GAS ORDERAB LES Final Result [facility] [address] [place] [address] * TRANSTHORACIC ECHO (TTE) LIMITED W/DOPPLER W/CF [...] color Doppler.The study was interpreted by [facility]. Pertinent images [...] 4.00 - 10.40 K/cmm 02/26/2024 16:[address] [facility] RBC 3.15(L) 4.36 - 5.78 M/cmm 02/26/2024 16:[address] [facility] Hemoglobin 10.3(L) 13.8 - 17.3 g/dL 02/26/2024 16:12 [facility] HCT 31.3(L) 39.5 - 50.2 % 02/26/2024 16:12 [facility] MCV 99(H) 81 - 95 fL 02/26/2024 16:12 [facility] MCH 32.7 27.6 - 33.0 pg 02/26/2024 16:12 [facility] MCHC 32.9 32.8 - 36.4 g/dL 02/26/2024 16:12 [facility] RDW-CV 15.3(H) <14.2 % 02/26/2024 16:12 [facility] RDW-SD 55.4(H) <46.0 fl 02/26/2024 16:12 [facility] PLT 311 141 - 377 K/cmm 02/26/2024 16:12 [facility] MPV 10.4 9.5 - 12.7 fL 02/26/2024 16:12 [facility] Blood VENOUS BLOOD / Unknown Venipuncture / Unknown 02/26/2024 15:55 EST 02/26/2024 16:03 EST Pushpa Welch MD HEMATOLOGY & PF4 ORDERABLES F inal Result [facility] [address] [place] [address] * (ABNORMAL) BASIC METABOLIC PANEL (BMP) (02/26/2024 15:54 EST) Sodium 137 136 - 145 mmol/L 02/26/2024 16:55 [facility] Potassium 4.6 3.5 - 5.0 mmol/L 02/26/2024 16:55 [facility] Chloride 95(L) 96 - 110 mmol/L 02/26/2024 16:55 [facility] CO2 Total 34(H) 22 - 32 mmol/L 02/26/2024 16:[address] [facility] Anion Gap 8 5 - 14 mmol/L 02/26/2024 16:55 [facility] Glucose 159(H) 70 - 99 mg/dl 02/26/2024 16:55 [facility] Calcium 8.5 8.5 - 10.5 mg/dL 02/26/2024 16:55 [facility] BUN 40(H) 10 - 26 mg/dL 02/26/2024 16:55 [facility] Creatinine 1.23 0.66 - 1.25 mg/dL 02/26/2024 16:55 [facility] eGFR 58(L) >60 mL/min/1.73 m2 02/26/2024 16:55 [facility] Blood VENOUS BLOOD / Unknown Venipuncture / Unknown 02/26/2024 15:54 EST 02/26/2024 16:13 EST Pushpa Welch MD CHEMISTRY & BLOOD GAS ORDERAB LES Final Result [facility] [address] [place] [address] * XR CHEST PORTABLE 1 VIEW (02/26/2024 12:08 EST) Anatomical Region Laterality Modality Computed Radiogr aphy 02/26/2024 12:1 6 EST Impressions 02/26/2024 12:16 EST New right upper and lower lobe airspace opacities which may represent aspiration pneumonitis. Small right effusion. [id number] Narrative 02/26/2024 12:16 EST XR CHEST PORTABLE [...] findings: ??Normal. Bones: Normal. Resulting Agency Comment [id number] Procedure Note Karo Schmidt MD - 02/26/2024 [...] which may representaspiration pneumonitis. Small right effusion. [id number] Pushpa Welch MD IMG DIAGNOSTIC IMAGING ORDERA BLES Final Result * (ABNORMAL) BASIC METABOLIC PANEL (BMP) (02/24/2024 9:22 EST) Sodium 137 136 - 145 mmol/L 02/24/2024 10:32 [facility] Potassium 4.7 3.5 - 5.0 mmol/L 02/24/2024 10:32 [facility] Chloride 96 96 - 110 mmol/L 02/24/2024 10:32 [facility] CO2 Total 36(H) 22 - 32 mmol/L 02/24/2024 10:32 [facility] Anion Gap 5 5 - 14 mmol/L 02/24/2024 10:32 [facility] Glucose 146(H) 70 - 99 mg/dl 02/24/2024 10:32 [facility] Calcium 9.0 8.5 - 10.5 mg/dL 02/24/2024 10:32 [facility] BUN 48(H) 10 - 26 mg/dL 02/24/2024 10:32 [facility] Creatinine 1.04 0.66 - 1.25 mg/dL 02/24/2024 10:32 [facility] eGFR 70 >60 mL/min/1.73 m2 02/24/2024 10:32 [facility] Blood VENOUS BLOOD / Unknown Venipuncture / Unknown 02/24/2024 9:22 EST 02/24/2024 9:55 EST us Marcos Quintero MD CHEMISTRY & BLOOD GAS ORD ERABLES Final Result [facility] [address] [place], [place] [id number] * (ABNORMAL) COMPLETE BLOOD COUNT (02/24/2024 9:22 EST) WBC 22.32(H) 4.00 - 10.40 K/cmm 02/24/2024 10:08 [facility] RBC 3.54(L) 4.36 - 5.78 M/cmm 02/24/2024 10:08 [facility] Hemoglobin 11.6(L) 13.8 - 17.3 g/dL 02/24/2024 10:08 [facility] HCT 34.4(L) 39.5 - 50.2 % 02/24/2024 10:08 [facility] MCV 97(H) 81 - 95 fL 02/24/2024 10:08 [facility] MCH 32.8 27.6 - 33.0 pg 02/24/2024 10:08 [facility] MCHC 33.7 32.8 - 36.4 g/dL 02/24/2024 10:08 [facility] RDW-CV 15.0(H) <14.2 % 02/24/2024 10:08 [facility] RDW-SD 53.6(H) <46.0 fl 02/24/2024 10:08 [facility] PLT 311 141 - 377 K/cmm 02/24/2024 10:08 [facility] MPV 10.6 9.5 - 12.7 fL 02/24/2024 10:08 [facility] Blood VENOUS BLOOD / Unknown Venipuncture / Unknown 02/24/2024 9:22 EST 02/24/2024 9:54 EST us Pete Miller DO HEMATOLOGY & PF4 ORDERABLES Saadia l Result [facility] [address] [place] [address] * (ABNORMAL) BASIC METABOLIC PANEL (BMP) (02/23/2024 12:04 EST) Sodium 138 136 - 145 mmol/L 02/23/2024 12:39 [facility] Potassium 4.6 3.5 - 5.0 mmol/L 02/23/2024 12:39 [facility] Chloride 95(L) 96 - 110 mmol/L 02/23/2024 12:39 [facility] CO2 Total 39(H) 22 - 32 mmol/L 02/23/2024 12:39 [facility] Anion Gap 4(L) 5 - 14 mmol/L 02/23/2024 12:39 [facility] Glucose 223(H) 70 - 99 mg/dl 02/23/2024 12:39 [facility] Calcium 8.7 8.5 - 10.5 mg/dL 02/23/2024 12:39 [facility] BUN 51(H) 10 - 26 mg/dL 02/23/2024 12:39 [facility] Creatinine 1.10 0.66 - 1.25 mg/dL 02/23/2024 12:39 [facility] eGFR 66 >60 mL/min/1.73 m2 02/23/2024 12:39 [facility] Blood VENOUS BLOOD / Unknown Venipuncture / Unknown 02/23/2024 12:04 EST 02/23/2024 12:09 EST us Marcos Quintero MD CHEMISTRY & BLOOD GAS ORD ERABLES Final Result [facility] [address] [place] [address] * (ABNORMAL) COMPLETE BLOOD COUNT (02/23/2024 12:04 EST) WBC 19.09(H) 4.00 - 10.40 K/cmm 02/23/2024 13:21 [facility] RBC 3.57(L) 4.36 - 5.78 M/cmm 02/23/2024 13:21 [facility] Hemoglobin 11.6(L) 13.8 - 17.3 g/dL 02/23/2024 13:21 [facility] HCT 35.4(L) 39.5 - 50.2 % 02/23/2024 13:21 [facility] MCV 99(H) 81 - 95 fL 02/23/2024 13:21 [facility] MCH 32.5 27.6 - 33.0 pg 02/23/2024 13:21 [facility] MCHC 32.8 32.8 - 36.4 g/dL 02/23/2024 13:21 [facility] RDW-CV 15.0(H) <14.2 % 02/23/2024 13:21 [facility] RDW-SD 54.0(H) <46.0 fl 02/23/2024 13:21 [facility] PLT 274 141 - 377 K/cmm 02/23/2024 13:21 [facility] MPV 10.9 9.5 - 12.7 fL 02/23/2024 13:21 [facility] Blood VENOUS BLOOD / Unknown Venipuncture / Unknown 02/23/2024 12:04 EST 02/23/2024 13:13 EST us Pete Miller DO HEMATOLOGY & PF4 ORDERABLES Saadia loaiza Result [facility] [address] [place], [place] [id number] * (ABNORMAL) BASIC METABOLIC PANEL (BMP) (02/22/2024 11:01 EST) Sodium 138 136 - 145 mmol/L 02/22/2024 12:27 [facility] Potassium 4.5 3.5 - 5.0 mmol/L 02/22/2024 12:27 [facility] Chloride 95(L) 96 - 110 mmol/L 02/22/2024 12:27 [facility] CO2 Total 37(H) 22 - 32 mmol/L 02/22/2024 12:27 [facility] Anion Gap 6 5 - 14 mmol/L 02/22/2024 12:27 [facility] Glucose 208(H) 70 - 99 mg/dl 02/22/2024 12:27 [facility] Calcium 9.0 8.5 - 10.5 mg/dL 02/22/2024 12:27 [facility] BUN 56(H) 10 - 26 mg/dL 02/22/2024 12:27 [facility] Creatinine 1.27(H) 0.66 - 1.25 mg/dL 02/22/2024 12:27 [facility] eGFR 55(L) >60 mL/min/1.73 m2 02/22/2024 12:27 [facility] Blood VENOUS BLOOD / Unknown Venipuncture / Unknown 02/22/2024 11:01 EST 02/22/2024 11:40 EST Marcos Quintero MD CHEMISTRY & BLOOD GAS ORD ERABLES Final Result [facility] [address] [place] [address] * (ABNORMAL) COMPLETE BLOOD COUNT (02/22/2024 11:01 EST) WBC 22.75(H) 4.00 - 10.40 K/cmm 02/22/2024 11:45 [facility] RBC 3.52(L) 4.36 - 5.78 M/cmm 02/22/2024 11:45 [facility] Hemoglobin 11.7(L) 13.8 - 17.3 g/dL 02/22/2024 11:45 [facility] HCT 34.6(L) 39.5 - 50.2 % 02/22/2024 11:45 [facility] MCV 98(H) 81 - 95 fL 02/22/2024 11:45 [facility] MCH 33.2(H) 27.6 - 33.0 pg 02/22/2024 11:45 [facility] MCHC 33.8 32.8 - 36.4 g/dL 02/22/2024 11:45 [facility] RDW-CV 15.1(H) <14.2 % 02/22/2024 11:45 [facility] RDW-SD 54.9(H) <46.0 fl 02/22/2024 11:45 [facility] PLT 270 141 - 377 K/cmm 02/22/2024 11:45 [facility] MPV 10.8 9.5 - 12.7 fL 02/22/2024 11:45 [facility] Blood VENOUS BLOOD / Unknown Venipuncture / Unknown 02/22/2024 11:01 EST 02/22/2024 11:37 EST us Pete Miller DO HEMATOLOGY & PF4 ORDERABLES Saadia l Result Performing Organization Address City/State/[facility] Co de Phone Number [facility] [address] [place] [address] * (ABNORMAL) BASIC METABOLIC PANEL (BMP) (02/21/2024 9:58 EST) Sodium 138 136 - 145 mmol/L 02/21/2024 11:42 [facility] Potassium 4.1 3.5 - 5.0 mmol/L 02/21/2024 11:42 [facility] Chloride 95(L) 96 - 110 mmol/L 02/21/2024 11:42 [facility] CO2 Total 34(H) 22 - 32 mmol/L 02/21/2024 11:42 [facility] Anion Gap 9 5 - 14 mmol/L 02/21/2024 11:42 [facility] Glucose 190(H) 70 - 99 mg/dl 02/21/2024 11:42 [facility] Calcium 8.5 8.5 - 10.5 mg/dL 02/21/2024 11:42 [facility] BUN 54(H) 10 - 26 mg/dL 02/21/2024 11:42 [facility] Creatinine 1.38(H) 0.66 - 1.25 mg/dL 02/21/2024 11:42 [facility] eGFR 50(L) >60 mL/min/1.73 m2 02/21/2024 11:42 [facility] Blood VENOUS BLOOD / Unknown Venipuncture / Unknown 02/21/2024 9:58 EST 02/21/2024 11:04 EST us Marcos Quintero MD CHEMISTRY & BLOOD GAS ORD ERABLES Final Result [facility] [address] [place] [address] * (ABNORMAL) COMPLETE BLOOD COUNT (02/21/2024 9:58 EST) WBC 15.67(H) 4.00 - 10.40 K/cmm 02/21/2024 11:02 [facility] RBC 3.25(L) 4.36 - 5.78 M/cmm 02/21/2024 11:02 [facility] Hemoglobin 10.6(L) 13.8 - 17.3 g/dL 02/21/2024 11:02 [facility] HCT 31.7(L) 39.5 - 50.2 % 02/21/2024 11:02 [facility] MCV 98(H) 81 - 95 fL 02/21/2024 11:02 [facility] MCH 32.6 27.6 - 33.0 pg 02/21/2024 11:02 [facility] MCHC 33.4 32.8 - 36.4 g/dL 02/21/2024 11:02 [facility] RDW-CV 15.0(H) <14.2 % 02/21/2024 11:02 [facility] RDW-SD 54.0(H) <46.0 fl 02/21/2024 11:02 [facility] PLT 196 141 - 377 K/cmm 02/21/2024 11:02 [facility] MPV 10.7 9.5 - 12.7 fL 02/21/2024 11:02 [facility] Blood VENOUS BLOOD / Unknown Venipuncture / Unknown 02/21/2024 9:58 EST 02/21/2024 10:49 EST us Pete Miller DO HEMATOLOGY & PF4 ORDERABLES Saadia l Result Performing Organization Address City/State/[facility] Co de Phone Number [facility] [address] [place], [place] [id number] * (ABNORMAL) BASIC METABOLIC PANEL (BMP) (02/20/2024 10:07 EST) Sodium 141 136 - 145 mmol/L 02/20/2024 11:58 [facility] Potassium 4.0 3.5 - 5.0 mmol/L 02/20/2024 11:58 [facility] Chloride 96 96 - 110 mmol/L 02/20/2024 11:58 [facility] CO2 Total 35(H) 22 - 32 mmol/L 02/20/2024 11:58 [facility] Anion Gap 10 5 - 14 mmol/L 02/20/2024 11:58 [facility] Glucose 106(H) 70 - 99 mg/dl 02/20/2024 11:58 [facility] Calcium 8.5 8.5 - 10.5 mg/dL 02/20/2024 11:58 [facility] BUN 64(H) 10 - 26 mg/dL 02/20/2024 11:58 [facility] Creatinine 2.00(H) 0.66 - 1.25 mg/dL 02/20/2024 11:58 [facility] eGFR 32(L) >60 mL/min/1.73 m2 02/20/2024 11:58 [facility] Blood VENOUS BLOOD / Unknown Venipuncture / Unknown 02/20/2024 10:07 EST 02/20/2024 11:15 EST us Marcos Quintero MD CHEMISTRY & BLOOD GAS ORD ERABLES Final Result [facility] [address] [place] [address] * (ABNORMAL) COMPLETE BLOOD COUNT (02/20/2024 10:07 EST) WBC 14.61(H) 4.00 - 10.40 K/cmm 02/20/2024 11:28 [facility] RBC 3.36(L) 4.36 - 5.78 M/cmm 02/20/2024 11:28 [facility] Hemoglobin 11.0(L) 13.8 - 17.3 g/dL 02/20/2024 11:28 [facility] HCT 32.8(L) 39.5 - 50.2 % 02/20/2024 11:28 [facility] MCV 98(H) 81 - 95 fL 02/20/2024 11:28 [facility] MCH 32.7 27.6 - 33.0 pg 02/20/2024 11:28 [facility] MCHC 33.5 32.8 - 36.4 g/dL 02/20/2024 11:28 [facility] RDW-CV 15.2(H) <14.2 % 02/20/2024 11:28 [facility] RDW-SD 54.4(H) <46.0 fl 02/20/2024 11:28 [facility] PLT 167 141 - 377 K/cmm 02/20/2024 11:28 [facility] MPV 11.7 9.5 - 12.7 fL 02/20/2024 11:28 [facility] Blood VENOUS BLOOD / Unknown Venipuncture / Unknown 02/20/2024 10:07 EST 02/20/2024 11:13 EST Pete Miller DO HEMATOLOGY & PF4 ORDERABLES Saadia l Result [facility] [address] [place] [address] * MRSA PCR (02/20/2024 5:04 EST) Pathologist [facility] MRSA/Staph aureus Result No Staphylococcus aureus detected by PCR 02/20/2024 13:18 [facility] Swab BOTH ANTERIOR NARES / Unknown Swab / Unknown 02/20/2024 5:04 EST 02/20/2024 7:15 EST Pete Miller DO MICROBIOLOGY - GENERAL ORDERABLE S Final Result Performing Organization Address City/[facility]/ZIP Co de Phone Number [facility] [address] [place] [address] * (ABNORMAL) BASIC METABOLIC PANEL (BMP) (02/19/2024 11:27 EST) Sodium 136 136 - 145 mmol/L 02/19/2024 12:28 [facility] Potassium 4.7 3.5 - 5.0 mmol/L 02/19/2024 12:28 [facility] Chloride 96 96 - 110 mmol/L 02/19/2024 12:28 [facility] CO2 Total 35(H) 22 - 32 mmol/L 02/19/2024 12:28 [facility] Anion Gap 5 5 - 14 mmol/L 02/19/2024 12:28 [facility] Glucose 149(H) 70 - 99 mg/dl 02/19/2024 12:28 [facility] Calcium 8.4(L) 8.5 - 10.5 mg/dL 02/19/2024 12:28 [facility] BUN 70(H) 10 - 26 mg/dL 02/19/2024 12:28 [facility] Creatinine 1.86(H) 0.66 - 1.25 mg/dL 02/19/2024 12:28 [facility] eGFR 35(L) >60 mL/min/1.73 m2 02/19/2024 12:28 [facility] Blood VENOUS BLOOD / Unknown Venipuncture / Unknown 02/19/2024 11:27 EST 02/19/2024 11:49 EST us Marcos Quintero MD CHEMISTRY & BLOOD GAS ORD ERABLES Final Result [facility] [address] [place], [place] [id number] * (ABNORMAL) COMPLETE BLOOD COUNT (02/19/2024 11:27 EST) WBC 12.57(H) 4.00 - 10.40 K/cmm 02/19/2024 12:00 [facility] RBC 3.51(L) 4.36 - 5.78 M/cmm 02/19/2024 12:00 [facility] Hemoglobin 11.5(L) 13.8 - 17.3 g/dL 02/19/2024 12:00 [facility] HCT 33.2(L) 39.5 - 50.2 % 02/19/2024 12:00 [facility] MCV 95 81 - 95 fL 02/19/2024 12:00 [facility] MCH 32.8 27.6 - 33.0 pg 02/19/2024 12:00 [facility] MCHC 34.6 32.8 - 36.4 g/dL 02/19/2024 12:00 [facility] RDW-CV 15.2(H) <14.2 % 02/19/2024 12:[address] [facility] RDW-SD 52.4(H) <46.0 fl 02/19/2024 12:[address] [facility] PLT 148 141 - 377 K/cmm 02/19/2024 12:[address] [facility] MPV 11.6 9.5 - 12.7 fL 02/19/2024 12:[address] [facility] Blood VENOUS BLOOD / Unknown Venipuncture / Unknown 02/19/2024 11:27 EST 02/19/2024 11:48 EST us Pete Miller DO HEMATOLOGY & PF4 ORDERABLES Saadia loaiza Result [facility] [address] [place] [address] * XR CHEST PORTABLE 1 VIEW (02/18/2024 15:38 EST) Anatomical Region Laterality Modality Computed Radiogr aphy 02/18/2024 15:4 8 EST Impressions 02/18/2024 15:48 EST Bilateral small pleural effusions and bibasilar opacities compatible with atelectasis. [id number] Narrative 02/18/2024 15:48 EST XR CHEST PORTABLE 1 VIEW ??02/18/2024 3:24 PM Clinical History/comments: hypoxia Comparison: 02/16/2024. Technique: Single portable AP view of the chest. Findings: Lines/tubes/devices: ??None Lungs: Left greater than right basilar opacities Pleura: Bilateral pleural effusions Cardiac and mediastinal contours: Stable Soft tissues and extrathoracic findings: No acute abnormalities Bones: No acute abnormalities Resulting Agency Comment [id number] Procedure Note Gordo Palm MD - 02/18/2024 [...] pleural effusions and bibasilar opacities compatible withatelectasis. [id number] Marcos Quintero MD IMG DIAGNOSTIC IMAGING OR DERABLES Final Result * VITAMIN D (25,OH) (02/18/2024 6:28 EST) 25OH Vitamin D Tot 38 30 - 100 ng/mL 02/19/2024 10:[address] [facility] Comment: Vitamin D 25,OH Interpretive Ranges: Deficiency: ??<10.0 ng/mL Insufficiency: ??10.0 - 30.0 ng/mL Sufficiency: ??30.0 - 100.0 ng/mL Toxicity: ??>100.0 ng/mL Blood VENOUS BLOOD / Unknown Venipuncture / Unknown 02/18/2024 6:28 EST 02/18/2024 6:38 EST Marcos Quintero MD CHEMISTRY & BLOOD GAS ORD ERABLES Final Result [facility] [address] [place] [address] * (ABNORMAL) COMPREHENSIVE METABOLIC PANEL (CMP) (02/18/2024 6:28 EST) Sodium 134(L) 136 - 145 mmol/L 02/18/2024 7:[address] [facility] Potassium 4.5 3.5 - 5.0 mmol/L 02/18/2024 7:09 [facility] Chloride 97 96 - 110 mmol/L 02/18/2024 7:09 [facility] CO2 Total 36(H) 22 - 32 mmol/L 02/18/2024 7:09 [facility] Glucose 110(H) 70 - 99 mg/dl 02/18/2024 7:09 [facility] BUN 70(H) 10 - 26 mg/dL 02/18/2024 7:09 [facility] Creatinine 2.11(H) 0.66 - 1.25 mg/dL 02/18/2024 7:09 [facility] eGFR 30(L) >60 mL/min/1.7 3m2 02/18/2024 7:09 [facility] Total Protein 5.0(L) 6.3 - 8.2 g/dL 02/18/2024 7:09 [facility] Albumin 2.7(L) 3.4 - 4.9 g/dL 02/18/2024 7:09 [facility] Alkaline Phosphatase 80 38 - 126 U/L 02/18/2024 7:09 [facility] AST 33 15 - 46 U/L 02/18/2024 7:09 [facility] ALT 36 <50 U/L 02/18/2024 7:09 [facility] Bilirubin, Total <0.5 <1.4 mg/dL 02/18/20 7:09 [facility] Calcium 8.2(L) 8.5 - 10.5 mg/dL 02/18/2024 7:09 [facility] Albumin/Globulin Ratio 1.2 1.0 - 2.5 02/18/2024 7:09 [facility] Anion Gap 1(L) 5 - 14 mmol/L 02/18/2024 7:09 [facility] Blood VENOUS BLOOD / Unknown Venipuncture / Unknown 02/18/2024 6:28 EST 02/18/2024 6:38 EST us Pete Miller DO CHEMISTRY & BLOOD GAS ORDERABLES Final Result [facility] [address] [place] [address] * (ABNORMAL) COMPLETE BLOOD COUNT (02/18/2024 6:28 EST) WBC 13.90(H) 4.00 - 10.40 K/cmm 02/18/2024 6:45 [facility] RBC 3.41(L) 4.36 - 5.78 M/cmm 02/18/2024 6:45 [facility] Hemoglobin 11.0(L) 13.8 - 17.3 g/dL 02/18/2024 6:45 [facility] HCT 32.3(L) 39.5 - 50.2 % 02/18/2024 6:45 [facility] MCV 95 81 - 95 fL 02/18/2024 6:45 [facility] MCH 32.3 27.6 - 33.0 pg 02/18/2024 6:45 [facility] MCHC 34.1 32.8 - 36.4 g/dL 02/18/2024 6:45 [facility] RDW-CV 14.9(H) <14.2 % 02/18/2024 6:45 [facility] RDW-SD 51.8(H) <46.0 fl 02/18/2024 6:45 [facility] PLT 125(L) 141 - 377 K/cmm 02/18/2024 6:45 [facility] MPV 11.0 9.5 - 12.7 fL 02/18/2024 6:45 [facility] Blood VENOUS BLOOD / Unknown Venipuncture / Unknown 02/18/2024 6:28 EST 02/18/2024 6:32 EST us Pete Miller DO HEMATOLOGY & PF4 ORDERABLES Saadia l Result [facility] [address] [place] [address] * POCT GLUCOSE, INTERFACED (02/17/2024 17:48 EST) Glucose, POC 84 70 - 100 mg/dL 02/17/2024 17:49 [facility] HN LAB POC COMMENT (GLUCOSE) Test Performed by Nursing Services 02/17/2024 17:[address] [facility] Blood CAPILLARY BLOOD / Unknown 02/17/2024 17:48 EST 02/17/2024 17:49 EST us Pete [place] DO POINT OF CARE TEST ORDERABLES Fi nal Result 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 No periprosthetic fracture is seen. No acute left hip abnormality is seen. Atherosclerotic calcifications are present bilaterally. [id number] Narrative 02/17/2024 16:13 EST XR HIP RIGHT [...] view of the lower pelvis. Procedure Note Gorod Palm MD - 02/17/2024 XR HIP RIGHT [...] abnormality is seen. Atherosclerotic calcifications arepresent bilaterally. [id number] us Augustine Ceja MD [facility] DI[facility]NOSTIC [facility]AGING [...] is seen. Atherosclerotic calcifications are present bilaterally. [id number] Narrative 02/17/2024 16:13 EST XR HIP RIGHT [...] of the lower pelvis. Resulting Agency Comment [id number] Procedure Note Gordo Palm MD - 02/17/2024 [...] abnormality is seen. Atherosclerotic calcifications arepresent bilaterally. [id number] Augustine Ceja MD [facility] DIAGNOSTIC IMAGING OR DERABLES Final Result * PROTIME (02/17/2024 11:41 EST) I.N.R. 1.0 0.9 - 1.1 Ratio 02/17/2024 12:[address] [facility] Pro Time 11.2 9.7 - 12.8 secs 02/17/2024 12:[address] [facility] Blood VENOUS BLOOD / Unknown Venipuncture / Unknown 02/17/2024 11:41 EST 02/17/2024 11:[address] [facility] - 02/17/2024 12:08 EST Moderate Intensity Coumadin INR = 2.0-3.0 Adjustments in anticoagulant therapy dose should be based on the INR and NOT on the Protime. us Jason Morse MD HEMATOLOGY & PF4 ORDERABLES Final Result Performing Organization Address City/[facility]/ZIP Co de Phone Number [facility] [address] [place] [address] * MAGNESIUM (02/17/2024 5:58 EST) [facility] Magnesium 2.1 1.7 - 2.8 mg/dL 02/17/2024 7:[address] [facility] Blood VENOUS BLOOD / Unknown Venipuncture / Unknown 02/17/2024 5:58 EST 02/17/2024 6:07 EST Marti Horn MD CHEMISTRY & BLOOD GAS ORDERABLES Final Result Performing Organization Address [facility] Co de Phone Number [facility] [address] [place] [phone] * (ABNORMAL) COMPREHENSIVE METABOLIC PANEL (CMP) (02/17/2024 5:58 EST) Sodium 134(L) 136 - 145 mmol/L 02/17/2024 6:18 [facility] Potassium 4.4 3.5 - 5.0 mmol/L 02/17/2024 6:18 [facility] Chloride 100 96 - 110 mmol/L 02/17/2024 6:18 [facility] CO2 Total 30 22 - 32 mmol/L 02/17/2024 6:18 [facility] Glucose 108(H) 70 - 99 mg/dl 02/17/2024 6:18 [facility] BUN 69(H) 10 - 26 mg/dL 02/17/2024 6:18 [facility] Creatinine 2.08(H) 0.66 - 1.25 mg/dL 02/17/2024 6:18 [facility] eGFR 31(L) >60 mL/min/1.7 3m2 02/17/2024 6:18 [facility] Total Protein 5.2(L) 6.3 - 8.2 g/dL 02/17/2024 6:18 [facility] Albumin 2.8(L) 3.4 - 4.9 g/dL 02/17/2024 6:18 [facility] Alkaline Phosphatase 83 38 - 126 U/L 02/17/2024 6:18 [facility] AST 36 15 - 46 U/L 02/17/2024 6:18 [facility] ALT 49 <50 U/L 02/17/2024 6:18 [facility] Bilirubin, Total 0.5 <1.4 mg/dL 02/17/20 6:18 [facility] Calcium 8.7 8.5 - 10.5 mg/dL 02/17/2024 6:18 [facility] Albumin/Globulin Ratio 1.2 1.0 - 2.5 02/17/2024 6:18 [facility] Anion Gap 4(L) 5 - 14 mmol/L 02/17/2024 6:18 [facility] Blood VENOUS BLOOD / Unknown Venipuncture / Unknown 02/17/2024 5:58 EST 02/17/2024 6:07 EST us Pete Miller DO CHEMISTRY & BLOOD GAS ORDERABLES Final Result [facility] [address] [place] [address] * (ABNORMAL) COMPLETE BLOOD COUNT (02/17/2024 5:58 EST) WBC 16.70(H) 4.00 - 10.40 K/cmm 02/17/2024 6:16 [facility] RBC 3.66(L) 4.36 - 5.78 M/cmm 02/17/2024 6:16 [facility] Hemoglobin 11.7(L) 13.8 - 17.3 g/dL 02/17/2024 6:16 [facility] HCT 33.7(L) 39.5 - 50.2 % 02/17/2024 6:16 [facility] MCV 92 81 - 95 fL 02/17/2024 6:16 [facility] MCH 32.0 27.6 - 33.0 pg 02/17/2024 6:16 [facility] MCHC 34.7 32.8 - 36.4 g/dL 02/17/2024 6:16 [facility] RDW-CV 14.7(H) <14.2 % 02/17/2024 6:16 [facility] RDW-SD 49.7(H) <46.0 fl 02/17/2024 6:16 [facility] PLT 128(L) 141 - 377 K/cmm 02/17/2024 6:16 [facility] MPV 10.6 9.5 - 12.7 fL 02/17/2024 6:16 [facility] Blood VENOUS BLOOD / Unknown Venipuncture / Unknown 02/17/2024 5:58 EST 02/17/2024 6:04 EST us Pete Miller DO HEMATOLOGY & PF4 ORDERABLES Saadia l Result [facility] [address] [place] [address] * (ABNORMAL) POCT GLUCOSE, INTERFACED (02/17/2024 5:58 EST) Glucose, POC 114(H) 70 - 100 mg/dL 02/17/2024 5:59 [facility] HN LAB POC COMMENT (GLUCOSE) Test Performed by Nursing Services 02/17/2024 5:59 [facility] Blood CAPILLARY BLOOD / Unknown 02/17/2024 5:58 EST 02/17/2024 5:59 EST us Pete Miller DO POINT OF CARE TEST ORDERABLES Fi nal Result Performing Organization Address [facility]/ZIP Co de Phone Number [facility] [address] [place] [address] * MRSA PCR (02/17/2024 5:53 EST) Pathologist [facility] MRSA/Staph aureus Result No Staphylococcus aureus detected by PCR 02/17/2024 10:[address] [facility] Swab BOTH ANTERIOR NARES / Unknown Swab / Unknown 02/17/2024 5:53 EST 02/17/2024 7:50 EST us Pete Miller DO MICROBIOLOGY - GENERAL ORDERABLE S Final Result Performing Organization Address [facility] Co de Phone Number [facility] [address] [place] [address] * (ABNORMAL) POCT GLUCOSE, INTERFACED (02/16/2024 23:45 EST) Pathologist [facility] Glucose, POC 149(H) 70 - 100 mg/dL 02/16/2024 23:[address] [facility] HN LAB POC COMMENT (GLUCOSE) Test Performed by Nursing Services 02/16/2024 23:[address] [facility] Blood CAPILLARY BLOOD / Unknown 02/16/2024 23:45 EST 02/16/2024 23:48 EST us Pete Miller DO POINT OF CARE TEST ORDERABLES Fi nal Result Performing Organization Address [facility]/ZIP Co de Phone Number [facility] [address] [place] [address] * TYPE AND SCREEN (02/16/2024 20:00 EST) ABO O 02/16/2024 21:[address] [facility] Rh Factor Positive 02/16/2024 21:[address] [facility] Antibody Screen Negative 02/16/2024 21:[address] [facility] Specimen Expires: 02/19/2024 @ 23:59 02/16/2024 21:[address] [facility] Blood VENOUS BLOOD / Unknown Venipuncture / Unknown 02/16/2024 20:00 EST 02/16/2024 20:09 EST us Ritesh Cardenas MD BLOOD BANK TESTS Edited Resul t - Final [facility] [address] [facility] [place] [address] * CT ANGIO CHEST PE PROTOCOL (02/16/2024 [...] above interpretation and agree with the findings. [id number] Narrative 02/17/2024 10:[address] ANGIO CHEST [...] lesions. Multilevel degenerative changes. Resulting Agency Comment [id number] Procedure Note Sonia Salazar MD - 02/17/2024 [...] the above interpretation andagree with the findings. [id number] Pete Miller DO IMG CT ORDERABLES Final Result * XR HIP RIGHT 1 VIEW (02/16/2024 17:54 EST) Anatomical Region Laterality Modality Lower Extremities Right Computed Radio graphy 02/16/2024 18:2 7 EST Impressions 02/16/2024 18:27 EST Findings/impression: Redemonstrated right femoral neck fracture, not significantly changed. No left- sided hip fracture or dislocation. Mild degenerative changes of the left hip. The soft tissues are unremarkable. [id number] Narrative 02/16/2024 18:27 EST XR HIP LEFT 2-3 VIEWS OPTIONAL PELVIS, XR HIP RIGHT 1 VIEW ??02/16/2024 5:52 PM Signs and Symptoms/Comments: right hip pain Comparison: Pelvic x-ray 02/15/2024. Technique: AP orthopedic view of the pelvis which includes an AP view of both hips, with additional AP view of the left hip. Resulting Agency Comment [id number] Procedure Note Sonia Salazar MD - 02/16/2024 [...] theleft hip. The soft tissues are unremarkable. [id number] Ritesh Cardenas MD [facility] DIAGNOSTIC IMAGING ORDERA BLES Final Result * XR HIP LEFT 2-3 VIEWS OPTIONAL PELVIS (02/16/2024 17:52 EST) Anatomical Region Laterality Modality Lower Extremities Left Computed Radio graphy 02/16/2024 18:2 7 EST Impressions 02/16/2024 18:27 EST Findings/impression: Redemonstrated right femoral neck fracture, not significantly changed. No left- sided hip fracture or dislocation. Mild degenerative changes of the left hip. The soft tissues are unremarkable. [id number] Narrative 02/16/2024 18:27 EST XR HIP LEFT [...] theleft hip. The soft tissues are unremarkable. [id number] us Ritesh Cardenas MD [facility] DI[facility]NOST[facility] IMAGING ORDERA BLES Final Result * PROTIME (02/16/2024 17:00 EST) I.N.R. 1.0 0.9 - 1.1 Ratio 02/16/2024 18:[address] [facility] Pro Time 11.3 9.7 - 12.8 secs 02/16/2024 18:[address] [facility] Blood VENOUS BLOOD / Unknown Venipuncture / Unknown 02/16/2024 17:00 EST 02/16/2024 17:[address] [facility] - 02/16/2024 18:17 EST Moderate Intensity Coumadin INR = 2.0-3.0 Adjustments in anticoagulant therapy dose should be based on the INR and NOT on the Protime. Ritesh Cardenas MD HEMATOLOGY & PF4 ORDERABLES F inal Result Performing Organization Address [facility] de Phone Number [facility] [address] [place] [address] * (ABNORMAL) PTT (02/16/2024 17:00 EST) PTT 20(L) 26 - 37 secs 02/16/2024 18:[address] [facility] Blood VENOUS BLOOD / Unknown Venipuncture / Unknown 02/16/2024 17:00 EST 02/16/2024 17:30 EST Ritesh Cardenas MD HEMATOLOGY & PF4 ORDERABLES F inal Result Performing Organization Address [facility] de Phone Number [facility] [address] [place] [address] * (ABNORMAL) HEMOGLOBIN A1C (02/16/2024 17:00 EST) Hemoglobin A1c 6.1(H) <5.7 % 02/16/2024 21:15 [facility] Comment: Glycemic Status References: Normal: ??<5.7% Pre-Diabetes: ??5.7% - 6.4% Diagnostic of Diabetes: ??> or = 6.5% (if confirmed) Est Avg Glucose 128 mg/dL 21:15 [facility] Comment:The eAG represents t he A1c result expressed as average glucose in mg/dL. Blood VENOUS BLOOD / Unknown Venipuncture / Unknown 02/16/2024 17:00 EST 02/16/2024 17:16 EST Pete Miller DO CHEMISTRY & BLOOD GAS ORDERABLES Final Result Performing Organization Address [facility] de Phone Number [facility] [address] [place] [address] * (ABNORMAL) COMPREHENSIVE METABOLIC PANEL (CMP) (02/16/2024 17:00 [facility]) Sodium 140 136 - 145 mmol/L 02/16/2024 17:35 [facility] Potassium 5.2(H) 3.5 - 5.0 mmol/L 02/16/2024 17:35 [facility] Chloride 97 96 - 110 mmol/L 02/16/2024 17:35 [facility] CO2 Total 36(H) 22 - 32 mmol/L 02/16/2024 17:35 [facility] Glucose 179(H) 70 - 99 mg/dl 02/16/2024 17:35 [facility] BUN 70(H) 10 - 26 mg/dL 02/16/2024 17:35 [facility] Creatinine 2.54(H) 0.66 - 1.25 mg/dL 02/16/2024 17:35 [facility] eGFR 24(L) >60 mL/min/1.7 3m2 02/16/2024 17:35 [facility] Total Protein 5.4(L) 6.3 - 8.2 g/dL 02/16/2024 17:35 [facility] Albumin 3.0(L) 3.4 - 4.9 g/dL 02/16/2024 17:35 [facility] Alkaline Phosphatase 104 38 - 126 U/L 02/16/2024 17:35 [facility] AST 32 15 - 46 U/L 02/16/2024 17:35 [facility] ALT 50(H) <50 U/L 02/16/2024 17:35 [facility] Bilirubin, Total 0.6 <1.4 mg/dL 02/16/20 17:35 [facility] Calcium 9.1 8.5 - 10.5 mg/dL 02/16/2024 17:35 [facility] Albumin/Globulin Ratio 1.3 1.0 - 2.5 02/16/2024 17:35 [facility] Anion Gap 7 5 - 14 mmol/L 02/16/2024 17:35 [facility] Blood VENOUS BLOOD / Unknown Venipuncture / Unknown 02/16/2024 17:00 EST 02/16/2024 17:15 EST us Pete Miller DO CHEMISTRY & BLOOD GAS ORDERABLES Final Result [facility] [address] [place], [place] [id number] * (ABNORMAL) COMPLETE BLOOD COUNT (02/16/2024 17:00 EST) WBC 19.76(H) 4.00 - 10.40 K/cmm 02/16/2024 17:38 [facility] RBC 3.85(L) 4.36 - 5.78 M/cmm 02/16/2024 17:38 [facility] Hemoglobin 12.5(L) 13.8 - 17.3 g/dL 02/16/2024 17:38 [facility] HCT 37.3(L) 39.5 - 50.2 % 02/16/2024 17:38 [facility] MCV 97(H) 81 - 95 fL 02/16/2024 17:38 [facility] MCH 32.5 27.6 - 33.0 pg 02/16/2024 17:38 [facility] MCHC 33.5 32.8 - 36.4 g/dL 02/16/2024 17:38 [facility] RDW-CV 14.8(H) <14.2 % 02/16/2024 17:38 [facility] RDW-SD 53.3(H) <46.0 fl 02/16/2024 17:38 [facility] PLT 130(L) 141 - 377 K/cmm 02/16/2024 17:38 [facility] MPV 11.4 9.5 - 12.7 fL 02/16/2024 17:[address] [facility] Blood VENOUS BLOOD / Unknown Venipuncture / Unknown 02/16/2024 17:00 EST 02/16/2024 17:16 EST Pete Miller DO HEMATOLOGY & PF4 ORDERABLES Saadia l Result Performing Organization Address [facility]/ZIP Co de Phone Number [facility] [address] [place] [address] * (ABNORMAL) PROCALCITONIN (02/16/2024 17:00 EST) Procalcitonin 0.96(H) See Note ng/mL 02/16/2024 18:[address] [facility] Comment: NOTE: Reference Range: <0.5 ng/mL - Low risk of severe sepsis >2.0 ng/mL - High risk of severe sepsis Blood VENOUS BLOOD / Unknown Venipuncture / Unknown 02/16/2024 17:00 EST 02/16/2024 17:15 EST Pete Miller DO CHEMISTRY & BLOOD GAS ORDERABLES Final Result Performing Organization Address [facility] Co de Phone Number [facility] [address] [place] [phone] * HEPARIN LEVEL - UNFRACTIONATED HEPARIN (02/16/2024 17:00 EST) Heparin Level-UFH 0.05 Therapeutic Range: 0.30 - 0.70 IU/mL 02/16/2024 18:[address] [facility] Comment:Unfractionated hepar in therapeutic [...] ORDERABLES Saadia l Result Performing Organization Address [facility] Co de Phone Number [facility] [address] [place] [address] * (ABNORMAL) POCT GLUCOSE, INTERFACED (02/16/2024 16:59 EST) Glucose, POC 177(H) 70 - 100 mg/dL 02/16/2024 17:[address] [facility] HN LAB POC COMMENT (GLUCOSE) Test Performed by Nursing Services 02/16/2024 17:[address] [facility] Blood CAPILLARY BLOOD / Unknown 02/16/2024 16:59 EST 02/16/2024 17:00 EST us Pete Miller DO POINT OF CARE TEST ORDERABLES Fi nal Result Performing Organization Address [facility] de Phone Number [facility] [address] [place] [address] * EKG 12-LEAD (02/16/2024 16:44 EST) 02/16/2024 16:[address] [facility] EKG - 02/28/2024 10:28 EST ? [facility] ? Test Date: ?2024-02-16 Pat Name: ? NOE SUE ? Department: ?? Jose 4 ? Room: ? M415 Gender: ? Male ? Fiscal Services Manager: ?? : ?1940 ? Requested By: JESUS FREEMAN Order Number: [id number] ? Zulay MD: ?? IMANI LOMAS MD ? Measurements Intervals ?[place] ? Rate: ? 104 ?P: ?73 TX: ? 147 ?QRS: ?-58 QRSD: ? 127 [...] Note Imani Lomas MD - 02/28/2024 [facility] Test Date: 2024-02-16 Pat Name: NOE SUE Department: [place] [address] Room: [facility] Gender: Male Fiscal Services Manager: : 1940 Requested By: JESUS FREEMAN Order Number: [id number] Reading MD: IMANI LOMAS MD Measurements Intervals [place] Rate: 104 P: 73 TX: 147 QRS: -58 QRSD: 127 T: 61 [...] preliminary report. Edited by CRISTELA TERRY MD [id number] 20:18:03 EST. I reviewed the tracing and have either agreed or edited the findings inthis report. Electronically Signed On 02-28-2024 10:28:35 EST by CAPO CLEMONS. us Pete Miller DO CARDIAC ECG ORDERABLES Final Res ult [facility] EKG documented in this encounter Visit Diagnoses Diagnosis Acute hypoxic respiratory failure (HCC-CMS)- Primary Closed right hip fracture, initial encounter (HCC-CMS) Acute hypoxic respiratory failure (HCC-CMS) [J96.01] Osteoporosis with current pathological fracture, unspecified osteoporosis type, initial encounter Chronic obstructive pulmonary disease, unspecified COPD type ([facility]) [J44.9] Pulmonary hypertension ([facility]) [I27.20] Other chronic pulmonary heart diseases Atrial fibrillation, unspecified type ([facility]) [I48.91] Urinary retention [R33.9] Retention of urine, unspecified Hypertension, unspecified type [I10] Thrush [B37.0] Candidiasis of mouth PFO (patent foramen ovale) Ostium secundum type atrial septal defect Pulmonary emphysema, unspecified emphysema type ([facility]) Closed right hip fracture, initial encounter ([facility]) Closed right hip fracture, initial encounter ([facility]) documented in this encounter Admitting Diagnoses Diagnosis Acute hypoxic respiratory failure ([facility]) Closed right hip fracture, initial encounter ([facility]) documented in this encounter Administered Medications [...] Units Given 02/27/2024 8:10 EST 2,000 Units cvhUQYxzz-NSZKROIdsxa-duwUIRWXW-ropivacaine 80 mcg-0.5 mg-30 mg-150 mg periarticular syringe [...] 40 mg 3 02/0802/16/2024 polyethylene glycol 3350 (IN RALAX) packet 17 g 2 02/18/2024 02/16/2024 [...] documented as of this encounter Care Teams Certified Pathology Assistant Relationship Specialty Start Date End Date Suzie Villagomez MD [address] [place] [id number] PCP - General Family Medicine - Primary Care 02/15/24 documented as of this encounter
--- OUTSIDE RECORDS SUMMARY | 2024-04-01 17:55 | XMS_ITS | Encounter Summary ---
Author Organization [facility] Address [address] [place] [address] Care Team Providers Care Continuous Improvement Engineer Name Role Phone Suzie Quan MD Primary Care Provider [phone] Reason for Referral * (Routine/Next Available) - Receiving Office to Obtain Authorization Specialty Diagnoses / Procedures Referred By Contac t Referred To Contact Procedures XR OUTSIDE IMAGES PELVIS Imaging, External Referral ID Status Reason Start Date Expiration Date Visits Requested Visits Authorized [id number] Receiving Office to Obtain Authorization 02/15/2024 1 1 Reason for Visit * (Routine/Next Available) - Receiving Office to Obtain Authorization Specialty Diagnoses / Procedures Referred By Contac t Referred To Contact Procedures XR OUTSIDE IMAGES PELVIS Imaging, External Referral ID Status Reason Start Date Expiration Date Visits Requested Visits Authorized [id number] Receiving Office to Obtain Authorization 02/15/2024 1 1 Encounter Details Date Type Department Care Team (Latest Contact Info) Description 02/15/2024 10:56 EST - 02/15/2024 10:57 EST Hospital Encounter [facility] Secondary Reads [place] Discharge Disposition: Home or Self Care Social History Tobacco Use Types Packs/Day Years Used Date Smoking Tobacco: Former Cigarettes Alcohol Use Standard Drinks/Week Comments Never 0 (1 standard drink = 0.6 oz pur e alcohol) [facility] Utilities Answer Date Recorded In [...] were you homeless or living in a assisted (including now)? No 02/16/2024 Interpersonal Safety Answer [...] Info) Description 04/05/2024 10:15 EST Appointment [facility] Xray [address] [place] [address] 04/05/2024 10:30 EST Post-op Visit [facility] Orthopedic Trauma - [place] [address] [place] [address] Ko Marquis PA-C [address] [place] [address] documented as of this encounter [...] on filedocumented in this encounter Care Teams Continuous Improvement Engineer Relationship Specialty Start Date End Date Suzie Quan MD [address] [place] [address] PCP - General Family Medicine - Primary Care 02/15/24 documented as of this encounter
--- OUTSIDE RECORDS SUMMARY | 2024-04-01 17:55 | XMS_ITS | Encounter Summary ---
Author Organization [facility] Address [address] [place] [address] Care Team Providers Care Motorcycle Racer Name Role Phone Suzie Quan MD Primary Care Provider [phone] Reason for Referral * (Routine/Next Available) - Receiving Office to Obtain Authorization Specialty Diagnoses / Procedures Referred By Contac t Referred To Contact Procedures XR OUTSIDE IMAGES RIGHT LOWER EXTREMITY Imaging, External Referral ID Status Reason Start Date Expiration Date Visits Requested Visits Authorized [id number] Receiving Office to Obtain Authorization 02/15/2024 1 1 Reason for Visit * (Routine/Next Available) - Receiving Office to Obtain Authorization Specialty Diagnoses / Procedures Referred By Contac t Referred To Contact Procedures XR OUTSIDE IMAGES RIGHT LOWER EXTREMITY Imaging, External Referral ID Status Reason Start Date Expiration Date Visits Requested Visits Authorized [id number] Receiving Office to Obtain Authorization 02/15/2024 1 1 Encounter Details Date Type Department Care Team (Latest Contact Info) Description 02/15/2024 10:53 EST - 02/15/2024 10:55 EST Hospital Encounter [facility] Secondary Reads [place] Discharge Disposition: Home or Self Care Social History Tobacco Use Types Packs/Day Years Used Date Smoking Tobacco: Former Cigarettes Alcohol Use Standard Drinks/Week Comments Never 0 (1 standard drink = 0.6 oz pur e alcohol) [facility] Utilities Answer Date Recorded In the [...] in a snf (including now)? No 02/16/2024 Interpersonal Safety Answer [...] Info) Description 04/05/2024 10:[address] [facility] ([place], [place] Xray [address] [facility] [place], [place] [id number] 04/05/2024 10:30 EST Post-op Visit [facility] Orthopedic Trauma - [place] [address] [place] [address] Ko Marquis PA-C [address] [place] [address] documented as of this encounter [...] on filedocumented in this encounter Care Teams Motorcycle Racer Relationship Specialty Start Date End Date Suzie Quan MD [address] [place] [address] PCP - General Family Medicine - Primary Care 02/15/24 documented as of this encounter
--- OUTSIDE RECORDS SUMMARY | 2024-04-01 17:55 | XMS_ITS | Encounter Summary ---
Author Organization [facility] Address [address] [place] [address] Care Team Providers Care Women'S Activities Adviser Name Role Phone Suzie Quan MD Primary Care Provider [phone] Reason for Referral * (Routine/Next Available) - Receiving Office to Obtain Authorization Specialty Diagnoses / Procedures Referred By Contac t Referred To Contact Procedures XR OUTSIDE IMAGES CHEST Imaging, External Referral ID Status Reason Start Date Expiration Date Visits Requested Visits Authorized [id number] Receiving Office to Obtain Authorization 02/15/2024 1 1 Reason for Visit * (Routine/Next Available) - Receiving Office to Obtain Authorization Specialty Diagnoses / Procedures Referred By Contac t Referred To Contact Procedures XR OUTSIDE IMAGES CHEST Imaging, External Referral ID Status Reason Start Date Expiration Date Visits Requested Visits Authorized [id number] Receiving Office to Obtain Authorization 02/15/2024 1 1 Encounter Details Date Type Department Care Team (Latest Contact Info) Description 02/15/2024 10:58 EST - 02/15/2024 11:02 EST Hospital Encounter [facility] Secondary Reads [place] Discharge Disposition: Home or Self Care Social History Tobacco Use Types Packs/Day Years Used Date Smoking Tobacco: Former Cigarettes Alcohol Use Standard Drinks/Week Comments Never 0 (1 standard drink = 0.6 oz pur e alcohol) [facility] Utilities Answer Date Recorded In the [...] were you homeless or living in a skilled nursing (including now)? No 02/16/2024 Interpersonal Safety Answer [...] Info) Description 04/05/2024 10:15 EST Appointment An [facility] Xray [address] [place] [address] 04/05/2024 10:30 EST Post-op Visit [facility] Orthopedic Trauma - [place] [address] [place] [address] Ko Marquis PA-C [address] [place] [address] documented as of this encounter [...] on filedocumented in this encounter Care Teams Women'S Activities Adviser Relationship Specialty Start Date End Date Suzie Quan MD [address] [place] [address] PCP - General Family Medicine - Primary Care 02/15/24 documented as of this encounter
[2024-04-01 17:59] LABS: Epithelial Cells Rare HPF (Negative); RBC 0-2 HPF (0-2); WBC >50 HPF (0-5)
[2024-04-01 18:00] LABS: ALT 49 U/L (16-63); AST 49 U/L (15-37); Albumin 2.6 g/dL (3.4-5.0); Alkaline Phosphatase 91 U/L (46-116); Anion Gap 1.1 mmol/L (3-11); BUN 68 mg/dL (7-18); CO2 42.9 mmol/L (21.0-32.0); CREATININE 3.1 mg/dL (0.70-1.30); Calcium 8.8 mg/dL (8.5-10.1); Chloride 96 mmol/L (98-107); Estimated GFR 18.97 (mL/min/1.73m2); Glucose 146 mg/dL (74-106); Potassium 4.9 mmol/L (3.5-5.1); Sodium 140 mmol/L (136-145); Total Protein 6.5 g/dL (6.4-8.2)
[2024-04-01 18:00] LABS: Bacteria Rare HPF (Negative); C & S Indicated? Yes; Casts Negative LPF (Negative); Crystals Negative HPF (Negative); Mucus Negative (Negative)
[2024-04-01 18:01] LABS: Troponin I 180 ng/L (<or=76)
[2024-04-01] MEDS: Norepinephrine in D5W 8 MG/250 ML BAG 9.375 MG IV (18:50)
[2024-04-01 18:55] LABS: Troponin I 194 ng/L (<or=76)
[2024-04-01 19:12] LABS: COVID-19 PCR Negative (Negative); Influenza A PCR Negative (Negative); Influenza B PCR Negative (Negative); RSV PCR Negative (Negative)
[2024-04-01 19:15] LABS: Source NASOPHARYNX
--- NOTE | 2024-04-01 19:21 | W.PM.HP.N ---
Date of service: 04/01/24 Time of Service: 19:21 Assessment and Plan Assessment and plan (1) Septic shock: Start date: 04/01/24 Status: Acute Assessment and plan: This is an 83-year-old gentleman who presented with acute sepsis with shock and acute on chronic respiratory failure which progressed with the patient becoming apneic and eventually losing his pulse. I did call family upon the patient presentation to the ICU while he was being treated aggressively to vasopressor agents without response and having had more than 3 L normal saline for fluid resuscitation. His son, Noman was given poor prognosis and I did call his son again just after the patient and was pronounced at 21:45 shortly after being admitted. Patient did have a history of chronic respiratory failure prior to the acute diagnosis of left lower lobe pneumonia and hypoxemia exacerbating his presentation with septic shock with other source of infection being probable UTI which would be exacerbated by the poor urine output with CHRISTIANO. Patient was a DNR/DNI and his wishes were respected. (2) Acute on chronic respiratory failure with hypoxia and hypercapnia: Start date: 04/01/24 Status: Acute Assessment and plan: Exacerbated by pneumonia which was diagnosed but not treated for 5 days with confusion once discharged back to residential which was going through administrative and ownership change. The biomedical engineering aide will be called to review this case. (3) Left lower lobe pneumonia: Start date: 03/27/24 Status: Acute Assessment and plan: The patient with COPD and chronic respiratory failure causing decompensation and respiratory failure and eventual . Patient was comfortable at the time of his . (4) Acute UTI: Start date: 04/01/24 Status: Acute Assessment and plan: Possible diagnosis with the patient and urine culture and covered adequately with cefepime and vancomycin upon admission to the ED during this visit. He did receive his antibiotics. (5) Elevated troponin level not due myocardial infarction: Start date: 04/01/24 Status: Acute Assessment and plan: Patient troponin slightly elevated and this does not appear to be an acute ischemic event but rather a troponin leak from the strain of his septic shock. (6) Acute kidney injury: Start date: 04/01/24 Status: Acute Assessment and plan: Exacerbated by acute infectious process, hypoperfusion of his kidneys and probable dehydration with decreased intake and ongoing diuretic therapy with torsemide. Patient did receive IV fluid resuscitation with very little urine output. History of Present Illness History of Present Illness Chief Complaint: Worsening somnolence with chronic COPD and recent pneumonia untreated Narrative: This is an 83-year-old male patient who resides at the local residential after a broken hip in the late fall 2023 [address] [facility] and then placement locally for rehabilitation. The patient was seen in the this ED 03/27/2024 and diagnosed with left lower lobe pneumonia and COPD exacerbation, discharged back to residential to follow-up with PCP for treatment of these acute but stable problems. He never did receive his antibiotics or his prednisone with Levaquin and oral prednisone prescribed at that time. Today, 5 days later, he presented to the ED with hypotension, worsening hypoxemia and altered mental status, appearing to be dehydrated with increasing creatinine 3 time his baseline and decreased urinary output without complaints of fever or chest pain though he did have a slight elevation in his troponin. He does appear to have chronic respiratory failure with hypoxemia and hypercapnia, pulmonary hypertension with COPD and a history of paroxysmal atrial fibrillation on Eliquis. He was initiated on IV fluid resuscitation and did receive 3 L of normal saline with hypotension persisting and patient on norepinephrine now started on vasopressin. Patient is a DNR/DNI but does want to be treated for reversible problems. He was offered BiPAP but refused. Shortly arriving to the ICU with IV fluid resuscitation persisting and double pressor agents on board, the patient began to have agonal breathing and then respiratory arrest with severe bradycardia which appeared to be sinus rhythm, as stated, only agonal breathing and progressive, severe hypoxemia with the patient becoming nonresponsive. He continued with a very slow heart rate and barely palpable pulse with systolic blood pressure not measurable for several minutes and then lost his pulse at 21:42 with complete cessation of breathing. The patient was pronounced at 21:45 with continued pulselessness, no spontaneous respirations and no movement with the patient becoming mottled and cool. I had called the son, Noman just as the patient was admitted to the ICU and was having difficulty with low blood pressure and then called his son after pronouncing the patient. He will be calling his brother and sister and the nurse solid waste division supervisor will be contacting the for instructions on home arrangements. The biomedical engineering aide will be called because of the patient within 24 hours of admission and having delay of treatment after his last ED visit upon returning to the residential where there was an exchange of ownership which may have caused some confusion with treatment plan. Review of Systems Narrative: 13 point review of systems otherwise unobtainable the patient in distress and decompensating. PFSH All Active Problems (Updated 04/01/24 @ 19:40 by Star Jaramillo) Elevated troponin level not due myocardial infarction (Acute) Acute on chronic respiratory failure with hypoxia and hypercapnia (Acute) Left lower lobe pneumonia (Acute) Septic shock (Acute) Decubitus ulcer of sacral region, stage 2 (Chronic) Acute kidney injury (Acute) Acute UTI (Acute) Pneumonia (Acute) Displaced fracture of right femoral neck (Acute) COPD without exacerbation (Acute) Sepsis (Acute) Acute hypoxic respiratory failure (Acute) Social History Smoking/Tobacco Use Status: Former Tobacco Use Smoking risk assessment performed?: Yes Alcohol Intake: never Drug use: Never Substance use type: does not use Housing: residential Do you feel safe at home: Yes Do you feel safe in your relationship?: Yes Additional Social history: H+R Meds Allergies and Home Medications Allergies Allergy/AdvReac Type Severity Reaction Status Date / Time No Known Allergies Allergy Verified 04/01/24 17:08 Home Medications ?Medication ?Instructions ?Recorded ?Confirmed ?Type albuterol sulfate 90 mcg/actuation 2 inh inhalation Q6H PRN 01/16/24 04/01/24 History aerosol inhaler aspirin 81 mg tablet,delayed 81 mg PO DAILY 01/16/24 04/01/24 History release (Adult Low Dose Aspirin) umeclidinium 62.5 mcg-vilanterol 1 inh inhalation DAILY 01/16/24 04/01/24 History 25 mcg/actuation powdr for inhalation (Anoro Ellipta) pantoprazole 40 mg tablet,delayed 40 mg PO DAILY 02/15/24 04/01/24 History release acetaminophen 325 mg capsule 325 mg PO Q6H PRN 03/27/24 04/01/24 History apixaban 2.5 mg tablet 2.5 mg PO BID 03/27/24 04/01/24 History bisacodyl 10 mg rectal suppository 10 mg ND ONCE PRN 03/27/24 04/01/24 History (Dulcolax (bisacodyl)) cholecalciferol (vitamin D3) 25 25 mcg PO DAILY 03/27/24 04/01/24 History mcg (1,000 unit) capsule guaifenesin 600 mg tablet, 600 mg PO BID PRN 03/27/24 04/01/24 History extended release 12 hr levofloxacin 750 mg tablet 750 mg PO DAILY #5 tabs 03/27/24 04/01/24 Rx magnesium hydro 2,400 mg PO .COMPLEX 03/27/24 04/01/24 History mirala 17 g PO PRN PRN 03/27/24 04/01/24 History tamsulosin 0.4 mg capsule 0.4 mg PO DAILY 03/27/24 04/01/24 History torsemide 20 mg tablet 20 mg PO DAILY 03/27/24 04/01/24 History metoprolol succinate 50 mg 50 mg PO DAILY 04/01/24 04/01/24 History tablet,extended release 24 hr prednisone 20 mg tablet 20 mg PO DAILY 04/01/24 04/01/24 History Exam Narrative Exam Narrative: General: Patient had his eyes open and was responding to verbal stimulation answer questions with one-word and in moderate to severe distress with his tachypnea at the time of admission to the ICU. He quickly decompensated and became unresponsive. HEENT: Normocephalic, eyes were equal and react to light symmetrically initially, extraocular movement intact and sclera were anicteric. Oropharynx had dry mucosa with poor dentition. Neck: Supple with distended jugular veins as patient became distressed. Lungs: Poor aeration with decreased aeration over the left lung russell, increased expiratory phase but no auscultated expiratory wheeze. Patient was tachypneic and then became hypoxic as he decompensated. Heart: Tachycardic rate and regular rhythm initially becoming bradycardic as patient decompensated. Abdomen: Scaphoid and nontender without guarding. Extremities: Muscle wasting diffusely with cyanosis as patient progressed. No pitting edema. Skin: Cool and cyanotic. Neuro: The patient was first examined, cranial nerves II through XII are grossly intact with no focal motor deficits the patient was restless. Psych: Patient was delirious with probable infectious encephalopathy. Results Imaging Imaging Studies: EXAM: XR PORTABLE CHEST AP CLINICAL HISTORY: sepsis TECHNIQUE: 2D digital imaging was performed of the chest. One image was obtained. An AP view was obtained. COMPARISON: CR,XR XR CHEST 2V PA LATERAL from 02/15/2024 CR XR CHEST 2V PA LATERAL from 03/27/2024 FINDINGS: MEDIASTINUM: Normal. HEART: Normal. PULMONARY VASCULATURE: Normal. LUNGS: There is a persistent left basilar infiltrate. The lungs are hyperinflated with flattened diaphragms consistent with underlying COPD. PLEURAL SPACE: No pleural effusion or pneumothorax. BONE:Within normal limits for the patient's age. OTHER FINDINGS:Normal. IMPRESSION: Stable left lower lobe infiltrate. No new infiltrates. Labs 04/01/24 17:10 04/01/24 17:10 Labs: Laboratory Results - last 24 hr 04/01/24 04/01/24 04/01/24 17:10 17:30 18:08 WBC 16.48 H RBC 3.13 L Hgb 9.9 L Hct 31.8 L MCV 102 H MCH 31.6 MCHC 31.1 L RDW 13.9 Plt Count 273 MPV 10.5 Immature Gran % 0.7 Neutrophils % 93.8 Lymphocytes % 2.2 Monocytes % 3.0 Eosinophils % 0.2 Basophils % 0.1 Nucleated RBC % 0.0 Absolute Neutrophils 15.46 H Absolute Lymphocytes 0.36 L Absolute Monocytes 0.49 Absolute Eosinophils 0.03 Absolute Basophils 0.02 VBG pH 7.39 VBG pCO2 73 H* VBG pO2 22 VBG HCO3 45 H VBG Total CO2 43 H VBG O2 Saturation 30 VBG Base Excess 20 H VBG Lactate 1.8 H Sodium 140 Potassium 4.9 Chloride 96 L Carbon Dioxide 42.9 H Anion Gap 1.1 L BUN 68 H Creatinine 3.1 H Est GFR (CKD-EPI 2020) 18.97 Glucose 146 H Calcium 8.8 Total Bilirubin 0.60 AST 49 H ALT 49 Alkaline Phosphatase 91 Troponin I 180 H* Total Protein 6.5 Albumin 2.6 L Urine Color Yellow Urine Clarity Clear Urine pH 5.5 Ur Specific Dutton 1.020 Urine Protein Negative Urine Ketones Negative Urine Blood Trace-intact H Urine Nitrite Negative Urine Bilirubin Negative Urine Urobilinogen 0.2 Ur Leukocyte Esterase Large H Urine RBC 0-2 Urine WBC >50 H Ur Epithelial Cells Rare Urine Crystals Negative Urine Bacteria Rare Urine Casts Negative Urine Mucus Negative Urine Other Many Yeast Ur Culture Indicated? Yes Urine Glucose Negative COVID-19 Source NASOPHARYNX SARS-CoV-2 (PCR) Negative Influenza Type A (PCR) Negative Influenza Type B (PCR) Negative RSV (PCR) Negative 04/01/24 18:30 WBC RBC Hgb Hct MCV MCH MCHC RDW Plt Count MPV Immature Gran % Neutrophils % Lymphocytes % Monocytes % Eosinophils % Basophils % Nucleated RBC % Absolute Neutrophils Absolute Lymphocytes Absolute Monocytes Absolute Eosinophils Absolute Basophils VBG pH VBG pCO2 VBG pO2 VBG HCO3 VBG Total CO2 VBG O2 Saturation VBG Base Excess VBG Lactate Sodium Potassium Chloride Carbon Dioxide Anion Gap BUN Creatinine Est GFR (CKD-EPI 2020) Glucose Calcium Total Bilirubin AST ALT Alkaline Phosphatase Troponin I 194 H* Total Protein Albumin Urine Color Urine Clarity Urine pH Ur Specific Dutton Urine Protein Urine Ketones Urine Blood Urine Nitrite Urine Bilirubin Urine Urobilinogen Ur Leukocyte Esterase Urine RBC Urine WBC Ur Epithelial Cells Urine Crystals Urine Bacteria Urine Casts Urine Mucus Urine Other Ur Culture Indicated? Urine Glucose COVID-19 Source SARS-CoV-2 (PCR) Influenza Type A (PCR) Influenza Type B (PCR) RSV (PCR) Last Vital Signs Temp 36.6 C 04/01/24 17:12 Pulse 80 04/01/24 19:06 Resp 21 04/01/24 19:06 BP 111/45 L 04/01/24 19:06 Pulse Ox 80 L 04/01/24 18:21 Time Spent Time spent with Patient: >75 minutes Time was spent: preparing to see the patient(eg.review tests), obtaining and/or reviewing separately otained hiistory, ordering medications,tests, procedures, indepentently interpreting results, care coordination and other (At patient's bedside and calling family as he decompensated and eventually .)
[2024-04-01 19:24] LABS: MRSA PCR Negative (Negative)
[2024-04-01] MEDS: Hydrocortisone SOD SUC. 100 MG VIAL IVP (19:34)
[2024-04-01 20:46] LABS: Troponin I 250 ng/L (<or=76)
--- NOTE | 2024-04-01 20:53 | W.PC.ACHO ---
Registration Status: Primary Language: Preferred Language: ED Information & Data Chief Complaint RespSymp 04/01/24 17:11 Chief Complaint RespSymp 04/01/24 17:08 Triage Note pt with recent pna dx buut 04/01/24 17:08 didn't receive abx, arrives from [place] with hypotension to 70's, IV/labs /blood culture on arrival. Most Recent Vital Signs Temperature 36.6 C 04/01/24 17:12 Temperature Source Oral 04/01/24 17:12 Pulse 79 04/01/24 20:41 Pulse 86 04/01/24 20:41 Respiratory Rate 22 04/01/24 20:41 Respiratory Effort Short of Breath 04/01/24 17:33 Respiratory Depth Normal 04/01/24 17:33 Blood Pressure 95/77 L 04/01/24 20:41 Blood Pressure Mean 81 04/01/24 20:41 Blood Pressure Position Supine 04/01/24 17:12 Pulse Oximetry 100 04/01/24 20:41 Oxygen Delivery Method Nasal Cannula 04/01/24 17:49 Oxygen Flow Rate 0 04/01/24 17:08 Pain Level 0 04/01/24 17:12 Comment hurts to breath and weak 04/01/24 17:08 Comment 4L 04/01/24 17:31 Allergies No Known Allergies Allergy (Verified 04/01/24 17:08) Precautions Isolation PUI 04/01/24 17:11 Active Medications Generic Name Dose Route Start Last Admin Trade Name Freq PRN Reason Stop Dose Admin Norepinephrine Bitartrate 8 mg in 250 mls @ 9.375 mls/hr 04/01/24 18:30 04/01/24 20:04 IV 25 mcg/min INFUSION ROSALVA 46.875 mls/hr Titration Protocol 5 MCG/MIN Vasopressin 50 units/ Sodium 501.5 mls @ 24.072 mls/hr 04/01/24 20:00 04/01/24 20:25 Chloride IV 0.04 units/min INFUSION ROSALVA 24.072 mls/hr Administration Protocol 0.04 UNITS/MIN IV IV Catheter Type [Left Saline Lock Antecubital] IV Catheter Type [Right Peripheral IV Antecubital] IV Catheter Gauge [Left 20 Antecubital] IV Catheter Gauge [Right 18 Antecubital] Diagnostics 12/23/24 12/23/24 12/23/24 Range/Units 20:23 18:30 18:08 WBC (4.4-10.8) 10^3/uL RBC (4.36-5.78) 10^6/uL Hgb (13.5-17.5) g/dL Hct (40.0-50.0) % MCV (80-95) fL MCH (27.0-33.0) pg MCHC (32.0-36.0) % RDW (11.8-14.1) % Plt Count (130-400) 10^3/uL MPV (8.0-11.0) fL Immature Gran % % Neutrophils % % Lymphocytes % % Monocytes % % Eosinophils % % Basophils % % Nucleated RBC % (0.0-0.3) % Absolute Neutrophils (1.2-6.7) 10^3/uL Absolute Lymphocytes (1.2-3.4) 10^3/uL Absolute Monocytes (0.1-0.8) 10^3/uL Absolute Eosinophils (0.0-0.7) 10^3/uL Absolute Basophils (0.0-0.2) 10^3/uL VBG pH (7.31-7.41) VBG pCO2 (41-51) mmHg VBG pO2 mmHg VBG HCO3 (23-28) mmol/L VBG Total CO2 (24-29) mmol/L VBG O2 Saturation % VBG Base Excess (-2-3) mmol/L VBG Lactate (0.6-1.4) mmol/L Sodium (136-145) mmol/L Potassium (3.5-5.1) mmol/L Chloride (98-107) mmol/L Carbon Dioxide (21.0-32.0) mmol/L Anion Gap (3-11) mmol/L BUN (7-18) mg/dL Creatinine (0.70-1.30) mg/dL Est GFR (CKD-EPI 2020) (mL/min/1.73m2) Glucose (74-106) mg/dL Calcium (8.5-10.1) mg/dL Total Bilirubin (0.2-1.0) mg/dL AST (15-37) U/L ALT (16-63) U/L Alkaline Phosphatase (46-116) U/L Troponin I 250 H* 194 H* (<or=76) ng/L Total Protein (6.4-8.2) g/dL Albumin (3.4-5.0) g/dL Urine Color (Yellow) Urine Clarity (Clear) Urine pH (5-8) Ur Specific [place] (1.005-1.025) Urine Protein (Neg-Trace) mg/dL Urine Ketones (Negative) mg/dL Urine Blood (Negative) Urine Nitrite (Negative) Urine Bilirubin (Negative) Urine Urobilinogen (Up to 0.2) mg/dL Ur Leukocyte Esterase (Negative) Urine RBC (0-2) HPF Urine WBC (0-5) HPF Ur Epithelial Cells (Negative) HPF Urine Crystals (Negative) HPF Urine Bacteria (Negative) HPF Urine Casts (Negative) LPF Urine Mucus (Negative) Urine Other (Negative) Ur Culture Indicated? Urine Glucose (Negative) mg/dL COVID-19 Source NASOPHARYNX SARS-CoV-2 (PCR) Negative (Negative) Influenza Type A (PCR) Negative (Negative) Influenza Type B (PCR) Negative (Negative) RSV (PCR) Negative (Negative) MRSA (TEM-PCR) (Negative) 04/01/24 04/01/24 Range/Units 17:30 17:10 WBC 16.48 H (4.4-10.8) 10^3/uL RBC 3.13 L (4.36-5.78) 10^6/uL Hgb 9.9 L (13.5-17.5) g/dL Hct 31.8 L (40.0-50.0) % MCV 102 H (80-95) fL MCH 31.6 (27.0-33.0) pg MCHC 31.1 L (32.0-36.0) % RDW 13.9 (11.8-14.1) % Plt Count 273 (130-400) 10^3/uL MPV 10.5 (8.0-11.0) fL Immature Gran % 0.7 % Neutrophils % 93.8 % Lymphocytes % 2.2 % Monocytes % 3.0 % Eosinophils % 0.2 % Basophils % 0.1 % Nucleated RBC % 0.0 (0.0-0.3) % Absolute Neutrophils 15.46 H (1.2-6.7) 10^3/uL Absolute Lymphocytes 0.36 L (1.2-3.4) 10^3/uL Absolute Monocytes 0.49 (0.1-0.8) 10^3/uL Absolute Eosinophils 0.03 (0.0-0.7) 10^3/uL Absolute Basophils 0.02 (0.0-0.2) 10^3/uL VBG pH 7.39 (7.31-7.41) VBG pCO2 73 H* (41-51) mmHg VBG pO2 22 mmHg VBG HCO3 45 H (23-28) mmol/L VBG Total CO2 43 H (24-29) mmol/L VBG O2 Saturation 30 % VBG Base Excess 20 H (-2-3) mmol/L VBG Lactate 1.8 H (0.6-1.4) mmol/L Sodium 140 (136-145) mmol/L Potassium 4.9 (3.5-5.1) mmol/L Chloride 96 L (98-107) mmol/L Carbon Dioxide 42.9 H (21.0-32.0) mmol/L Anion Gap 1.1 L (3-11) mmol/L BUN 68 H (7-18) mg/dL Creatinine 3.1 H (0.70-1.30) mg/dL Est GFR (CKD-EPI 2020) 18.97 (mL/min/1.73m2) Glucose 146 H (74-106) mg/dL Calcium 8.8 (8.5-10.1) mg/dL Total Bilirubin 0.60 (0.2-1.0) mg/dL AST 49 H (15-37) U/L ALT 49 (16-63) U/L Alkaline Phosphatase 91 (46-116) U/L Troponin I 180 H* (<or=76) ng/L Total Protein 6.5 (6.4-8.2) g/dL Albumin 2.6 L (3.4-5.0) g/dL Urine Color Yellow (Yellow) Urine Clarity Clear (Clear) Urine pH 5.5 (5-8) Ur Specific [place] 1.020 (1.005-1.025) Urine Protein Negative (Neg-Trace) mg/dL Urine Ketones Negative (Negative) mg/dL Urine Blood Trace-intact H (Negative) Urine Nitrite Negative (Negative) Urine Bilirubin Negative (Negative) Urine Urobilinogen 0.2 (Up to 0.2) mg/dL Ur Leukocyte Esterase Large H (Negative) Urine RBC 0-2 (0-2) HPF Urine WBC >50 H (0-5) HPF Ur Epithelial Cells Rare (Negative) HPF Urine Crystals Negative (Negative) HPF Urine Bacteria Rare (Negative) HPF Urine Casts Negative (Negative) LPF Urine Mucus Negative (Negative) Urine Other Many Yeast (Negative) Ur Culture Indicated? Yes Urine Glucose Negative (Negative) mg/dL COVID-19 Source SARS-CoV-2 (PCR) (Negative) Influenza Type A (PCR) (Negative) Influenza Type B (PCR) (Negative) RSV (PCR) (Negative) MRSA (TEM-PCR) Negative (Negative) 04/01/24 17:30 Urine Culture - Pending Urine - Reflex from Ua 04/01/24 17:10 Blood Culture - Pending Blood 04/01/24 17:10 Blood Culture - Pending Blood Intake and Output - 24 Hour Total 04/01/24 17:00 thru 04/01/24 20:42 Intake Total 2127.188 Output Total 425 Balance 1702.188 Weight 51.7 kg Intake: IV 2127.188 Output: Urine 425 Other: Urine Color Straw Urine Appearance Clear Urinary Catheter Urinary Catheter Date of 04/01/24 Insertion [Urethral (Lewis)] Time of insertion [Urethral ( 16:30 Lewis)] Falls Risk Assessment History of Falls Previous History 04/01/24 17:17 Contributing Factors Unstable,Impairments, 04/01/24 17:17 Incontinence,Medications Ambulatory Aids Uses ambulatory device 04/01/24 17:17 Tubes/Lines W/no contributing factors 04/01/24 17:17 Gait Evaluation W/any additional score 04/01/24 17:17 Cognition No cognitive impairment 04/01/24 17:17 Fall Total Score 72 04/01/24 17:17 Level of Risk High Risk 04/01/24 17:17 Problems Elevated troponin level not due myocardial infarction (Acute) Acute on chronic respiratory failure with hypoxia and hypercapnia (Acute) Left lower lobe pneumonia (Acute) Septic shock (Acute) Decubitus ulcer of sacral region, stage 2 (Chronic) Acute kidney injury (Acute) Acute UTI (Acute) v v v v v v v v v Sending and/or Receiving Nurses: Please use comment section below to note any information pertinent to the patient hand-off not included above. Information / Comments: no questions Report received from:catalino carlson RN
--- OUTSIDE RECORDS SUMMARY | 2024-04-01 21:01 | XMS_ITS | Clinical Summary ---
Author Organization [facility] Address [address] [place] [address] Care Team Providers Care Project Manager Process Development Name Role Phone Suzie Quan MD Primary Care Provider Allergies No known active allergies Medications metoprolol [...] PFO (patent foramen ovale) 02/27/2024 Atrial fibrillation ([facility]) 02/26/2024 Urinary retention 02/26/2024 Hypertension 02/26/2024 Thrush 02/26/2024 Osteoporosis with current pathological fracture 02/22/2024 Heart failure ([facility]) 02/16/2024 Pulmonary hypertension ([facility]) 02/16/2024 Chronic obstructive pulmonary disease ([facility]) 02/16/2024 Acute hypoxic respiratory failure ([facility]) 11/2023 Closed right hip fracture, initial encounter ([facility]) 02/15/2024 Acute on chronic respiratory failure with hypoxia and hypercapnia ([facility]) 02/15/2024 Pneumonia due to infectious organism 02/15/2024 Encounters Date Type Department Care Team Description 03/14/2024 Orders Only [facility] Hand & Upper Extremity Program - [address] [place] [address] Ko Marquis PA-C Closed fracture of right hip with routine healing, subsequent encounter (Primary Dx) 02/27/2024 Telephone [facility] Endocrinology - [address] [address] Farnaz Rivas, DO Follow-up; Returning Call 02/23/[address] [address] Farnaz Rivas, DO Appointment Related (Called and left message with referral department. With Dr. Quijano message://Farnaz Rivas, DO?Ashley Rae MA/Kevin, looks like patient still in hospital. Please see if PCP willing to address or we can see patient when he is able if desired, I'm happy to discuss with PCP if needed. Thanks!/) 02/17/2024 11:57 EST Anesthesia Event [facility] OR [address] [place] [id number] Jason Morse MD 02/17/2024 11:30 EST - 02/17/2024 15:15 EST Surgery [facility] OR [address] [place] [id number] Augustine Ceja MD Open treatment of right femoral neck fracture with hemiarthroplasty [69953 (CPT??)] 02/16/2024 15:41 EST - 02/29/2024 12:20 EST Hospital Encounter [facility] General Medicine Unit [address] [place] [address] Ritesh Cardenas MD Clements, Benjamin, MD Foerg, Florian Ernst, MD Hingre, Jonathan R, MD Burgess, Lee-Anna, MD Farrell, Georgia, MD Closed right hip fracture, initial encounter ([facility]) (Primary Dx); Acute hypoxic respiratory failure ([facility]) [J96.01]; Osteoporosis with current pathological fracture, unspecified osteoporosis type, initial encounter; Chronic obstructive pulmonary disease, unspecified COPD type ([facility]) [J44.9]; Pulmonary hypertension ([facility]) [I27.20]; Atrial fibrillation, unspecified type ([facility]) [I48.91]; Urinary retention [R33.9]; Hypertension, unspecified type [I10]; Thrush [B37.0]; PFO (patent foramen ovale); Pulmonary emphysema, unspecified emphysema type ([facility]) Discharge Disposition: Nursing Facility (Skilled) 02/16/2024 Travel 02/15/2024 13:50 EST - 02/16/2024 14:42 EST Hospital Encounter [facility] Intensive Care Unit [address] [place] [address] Homer Tan MD Gilkey, Calvin T, MD Swayze-Quinn, Hannah, MD Closed right hip fracture, initial encounter ([facility]) [S72.001A] (Primary Dx); Acute on chronic respiratory failure with hypoxia and hypercapnia ([facility]) [J96.21, J96.22]; Pneumonia due to infectious organism, unspecified laterality, unspecified part of lung [J18.9]; Heart failure, unspecified HF chronicity, unspecified heart failure type ([facility]); Pulmonary HTN ([facility]); Pulmonary emphysema, unspecified emphysema type ([facility]) Discharge Disposition: Short Term Hospital 02/15/2024 11:03 EST - 02/15/2024 13:49 EST Hospital Encounter [facility] [place] Discharge Disposition: Home or Self Care 02/15/2024 10:58 EST - 02/15/2024 11:02 EST Hospital Encounter [facility] [place] Discharge Disposition: Home or Self Care 02/15/2024 10:56 EST - 02/15/2024 10:57 EST Hospital Encounter [facility] [place] Discharge Disposition: Home or Self Care 02/15/2024 10:53 EST - 02/15/2024 10:55 EST Hospital Encounter [facility] [place] Discharge Disposition: Home or Self Care 02/15/2024 Prep for Procedure [facility] Orthopedics & Sport Medicine [address] [place] [address] Buzz Freed MD Closed right hip fracture, initial encounter ([facility]) (Primary Dx) from Last 3 Months Surgical History Surgery Date Site/Laterality Comments HIP FRACTURE SURGERY 02/17/2024 Right hemiarthroplasty w/ Dr. Ceja Social History Tobacco Use Types Packs/Day Years Used Date Smoking Tobacco: Former Cigarettes Tobacco Cessation:Counseling Given: No Alcohol Use Standard Drinks/Week Comments Never 0 (1 standard drink = 0.6 oz pur e alcohol) [facility] Utilities Answer Date Recorded In the past 12 months has e [employer], gas, oil, or water company threatened to [...] in a fci (including now)? No 02/16/2024 [facility] - Inadequate Housing Answer Date Re corded What is your living situation today? I have a [facility] place to live 02/20/2024 Think about [...] Contact Info) Description 04/05/2024 10:15 EST Appointment [facility] [address] [place] [address] 04/05/2024 10:30 EST Post-op Visit [facility] Orthopedic Trauma - [facility] [address] [place] [address] Ko Marquis PA-C [address] [place] [address] Health Maintenance Due Date Last Done Comments Copd Action Plan 1938 Lung Function Test (Spirometry) 1938 Fall Risk Screening 2003 RSV Immunization ( o r 60+ Years) (1 - 1-dose 75+ series) 2013 COVID-19 Vaccine ( season) 2023 Post-Fragility Fracture Evaluation 02/15/2024 Medical Devices Implanted Type Area Window Tinter Device Identifier Shelf Expiration Date Model / Serial / Lot Cement Bone High Viscosity Tobramycin Radiopaque Single Dose [employer] 40gm Simplex [id number] - [id number] Implanted:Qty: 2 on 02/17/2024 by Augustine Ceja MD at [facility] Ortho Implant Right: Hip [facility] [id number] 08/07/2024 6197-9-00 / [id number] 1 / [id number] Hip Femoral Stem Cmntd 132deg Std Offst Sz 4 [id number] Accolade C [id number] - [id number] Implanted:Qty: 1 on 02/17/2024 by Augustine Ceja MD at [facility] Total Joint Implant Right: Hip [employer] [id number] 01/01/2029 7688-2470 D / [id number] D / [id number] Hip Spacer Stem Distal Cemented 11mm Accolade [id number] - [id number] Implanted:Qty: 1 on 02/17/2024 by Augustine Ceja MD at [facility] Total Joint Implant Right: Hip [employer] [id number] 10/23/2028 [id number] / [id number] / [id number] Restrictor Cement Lynn 25mm Distal Fem Hip Recon Surgery St - [id number] Implanted:Qty: 1 on 02/17/2024 by Augustine Ceja MD at [facility] Total Joint Implant Right: Hip [employer] 09/19/2033 [id number] / [id number] / [id number] Hip Head Unipolar Cocr 53mm Unitrax [id number] - [id number] Implanted:Qty: 1 on 02/17/2024 by Augustine Ceja MD at [facility] Total Joint Implant Right: Hip [employer] [id number] 02/07/2028 6942-5-05 3 / 6942-5-05 3 / [id number] Hip Taper Sleeve Standard Offset Femoral V40 [id number] - [id number] Implanted:Qty: 1 on 02/17/2024 by Augustine Ceja MD at [facility] Total Joint Implant Right: Hip [employer] [id number] 11/05/2028 6942-6-06 5 / 6942-6-06 5 / [id number] Procedures Procedure Name Priority Date/Time Associated Diagnosis [...] EST Closed right hip fracture, initial encounter ([facility]) XR HIP LEFT 1 VIEW Routine 02/17/2024 15 :20 EST Closed right hip fracture, initial encounter ([facility]) ANESTHESIA ARTERIAL LINE PLACEMENT Routine 02/17/2024 13:05 EST ANESTHESIA SPINAL BLOCK Routine 02/17/20 24 12:25 EST OPEN TREATMENT, FRACTURE, FEMUR, NECK, WITH INTERNAL FIXATION OR INSERTION OF PROSTHETIC 02/17/2024 11:44 EST Closed right hip fracture, initial encounter ([facility]) PROTIME STAT 02/17/2024 11:41 EST POCT [...] 03/04/2024 11:3 9 EST us Scan 2 [employer] PROCEDURE/MINOR SURGICAL OR DERABLES Final Result * ECG REPORT - SCANNED (03/04/2024 9:35 EST) 03/04/2024 9:35 EST us Scan 2 [employer] PROCEDURE/MINOR SURGICAL OR DERABLES Final Result * ECG REPORT - SCANNED (02/28/2024 10:36 EST) 02/28/2024 10:3 6 EST us Scan 2 [employer] PROCEDURE/MINOR SURGICAL OR DERABLES Final Result * (ABNORMAL) COMPLETE BLOOD COUNT (02/28/2024 10:26 EST) Only the most recent of12 resultswithin the time period is included. WBC 16.63(H) 4.00 - 10.40 K/cmm 02/28/2024 11:06 [facility] RBC 3.09(L) 4.36 - 5.78 M/cmm 02/28/2024 11:06 [facility] Hemoglobin 10.3(L) 13.8 - 17.3 g/dL 02/28/2024 11:06 [facility] HCT 30.5(L) 39.5 - 50.2 % 02/28/2024 11:06 [facility] MCV 99(H) 81 - 95 fL 02/28/2024 11:06 [facility] MCH 33.3(H) 27.6 - 33.0 pg 02/28/2024 11:06 [facility] MCHC 33.8 32.8 - 36.4 g/dL 02/28/2024 11:06 [facility] RDW-CV 15.2(H) <14.2 % 02/28/2024 11:06 [facility] RDW-SD 55.3(H) <46.0 fl 02/28/2024 11:06 [facility] PLT 362 141 - 377 K/cmm 02/28/2024 11:06 [facility] MPV 10.1 9.5 - 12.7 fL 02/28/2024 11:06 [facility] Blood VENOUS BLOOD / Unknown Venipuncture / Unknown 02/28/2024 10:26 EST 02/28/2024 10:54 EST us Pushpa Welch MD HEMATOLOGY & PF4 ORDERABLES F inal Result [facility] [address] [place] [address] * (ABNORMAL) BASIC METABOLIC PANEL (BMP) (02/28/2024 10:26 EST) Only the most recent of10 resultswithin the time period is included. Sodium 137 136 - 145 mmol/L 02/28/2024 11:44 [facility] Potassium 3.7 3.5 - 5.0 mmol/L 02/28/2024 11:44 [facility] Chloride 95(L) 96 - 110 mmol/L 02/28/2024 11:44 [facility] CO2 Total 38(H) 22 - 32 mmol/L 02/28/2024 11:44 [facility] Anion Gap 4(L) 5 - 14 mmol/L 02/28/2024 11:44 [facility] Glucose 127(H) 70 - 99 mg/dl 02/28/2024 11:44 [facility] Calcium 8.4(L) 8.5 - 10.5 mg/dL 02/28/2024 11:44 [facility] BUN 34(H) 10 - 26 mg/dL 02/28/2024 11:44 [facility] Creatinine 1.32(H) 0.66 - 1.25 mg/dL 02/28/2024 11:44 [facility] eGFR 53(L) >60 mL/min/1.73 m2 02/28/2024 11:44 [facility] Blood VENOUS BLOOD / Unknown Venipuncture / Unknown 02/28/2024 10:26 EST 02/28/2024 10:55 EST Pushpa Welch MD CHEMISTRY & BLOOD GAS ORDERAB LES Final Result [facility] [address] [place] [phone] * (ABNORMAL) NT PRO BNP (02/27/2024 15:55 EST) Only the most recent of2 resultswithin the time period is included. NT-pro BNP 1,210(H) <326 pg/mL 02/27/2024 16:57 [facility] Comment: In the acute setting NT-proBNP values <300 pg/mL have a 98% NPV for excluding acute heart failure. In outpatient populations, NT-proBNP values <125 have a 99% NPV for excluding heart failure. Blood VENOUS BLOOD / Unknown Venipuncture / Unknown 02/27/2024 15:55 EST 02/27/2024 16:02 EST us Bryan Weiss MD CHEMISTRY & BLOOD GAS ORDERABL ES Final Result [facility] [address] [place] [address] * TRANSTHORACIC ECHO (TTE) LIMITED W/DOPPLER W/CF [...] color Doppler.The study was interpreted by [facility]. Pertinent images and [...] may represent aspiration pneumonitis. Small right effusion. [id number] Narrative 02/26/2024 12:16 EST XR CHEST PORTABLE [...] findings: ??Normal. Bones: Normal. Resulting Agency Comment [id number] Procedure Note Karo Schmidt MD - 02/26/2024 [...] which may representaspiration pneumonitis. Small right effusion. [id number] us Pushpa Welch MD IMG DIAGNOSTIC IMAGING ORDERA BLES Final Result * MRSA PCR (02/20/2024 5:04 EST) Only the most recent of2 resultswithin the time period is included. MRSA/Staph aureus Result No Staphylococcus aureus detected by PCR 02/20/2024 13:18 EST [facility] Swab BOTH ANTERIOR NARES / Unknown Swab / Unknown 02/20/2024 5:04 EST 02/20/2024 7:15 EST us Sandie Miller DO MICROBIOLOGY - GENERAL ORDERABLE S Final Result [facility] [address] [place] [address] * ECG REPORT - SCANNED (02/19/2024 14:12 EST) 02/19/2024 14:1 2 EST us Scan 2 [employer] PROCEDURE/MINOR SURGICAL OR DERABLES Final Result * XR CHEST PORTABLE 1 VIEW (02/18/2024 15:38 EST) Anatomical Region Laterality Modality Computed Radiogr aphy 02/18/2024 15:4 8 EST Impressions 02/18/2024 15:48 EST Bilateral small pleural effusions and bibasilar opacities compatible with atelectasis. [id number] Narrative 02/18/2024 15:48 EST XR CHEST PORTABLE 1 VIEW ??02/18/2024 3:24 PM Clinical History/comments: hypoxia Comparison: 02/16/2024. Technique: Single portable AP view of the chest. Findings: Lines/tubes/devices: ??None Lungs: Left greater than right basilar opacities Pleura: Bilateral pleural effusions Cardiac and mediastinal contours: Stable Soft tissues and extrathoracic findings: No acute abnormalities Bones: No acute abnormalities Resulting Agency Comment [id number] Procedure Note Gordo Palm MD - 02/18/2024 [...] pleural effusions and bibasilar opacities compatible withatelectasis. [id number] Marcos Quintero MD IM DIAGNOSTIC IMAGING OR DERABLES Final Result * VITAMIN D (25,OH) (02/18/2024 6:28 EST) 25OH Vitamin D Tot 38 30 - 100 ng/mL 02/19/2024 10:50 EST [facility] Comment: Vitamin D 25,OH Interpretive Ranges: Deficiency: ??<10.0 ng/mL Insufficiency: ??10.0 - 30.0 ng/mL Sufficiency: ??30.0 - 100.0 ng/mL Toxicity: ??>100.0 ng/mL Blood VENOUS BLOOD / Unknown Venipuncture / Unknown 02/18/2024 6:28 EST 02/18/2024 6:38 EST us Marcos Quintero MD CHEMISTRY & BLOOD GAS ORD ERABLES Final Result [facility] [address] [place] [address] * (ABNORMAL) COMPREHENSIVE METABOLIC PANEL (CMP) (02/18/2024 6:28 EST) Only the most recent of4 resultswithin the time period is included. Sodium 134(L) 136 - 145 mmol/L 02/18/2024 7:09 [facility] Potassium 4.5 3.5 - 5.0 mmol/L 02/18/2024 7:09 [facility] Chloride 97 96 - 110 mmol/L 02/18/2024 7:09 [facility] CO2 Total 36(H) 22 - 32 mmol/L 02/18/2024 7:09 [facility] Glucose 110(H) 70 - 99 mg/dl 02/18/2024 7:09 [facility] BUN 70(H) 10 - 26 mg/dL 02/18/2024 7:09 [facility] Creatinine 2.11(H) 0.66 - 1.25 mg/dL 02/18/2024 7:09 [facility] eGFR 30(L) >60 mL/min/1.7 3m2 02/18/2024 7:09 [facility] Total Protein 5.0(L) 6.3 - 8.2 g/dL 02/18/2024 7:09 [facility] Albumin 2.7(L) 3.4 - 4.9 g/dL 02/18/2024 7:09 [facility] Alkaline Phosphatase 80 38 - 126 U/L 02/18/2024 7:09 [facility] AST 33 15 - 46 U/L 02/18/2024 7:09 [facility] ALT 36 <50 U/L 02/18/2024 7:09 [facility] Bilirubin, Total <0.5 <1.4 mg/dL 02/18/20 7:09 [facility] Calcium 8.2(L) 8.5 - 10.5 mg/dL 02/18/2024 7:09 [facility] Albumin/Globulin Ratio 1.2 1.0 - 2.5 02/18/2024 7:09 [facility] Anion Gap 1(L) 5 - 14 mmol/L 02/18/2024 7:09 [facility] Blood VENOUS BLOOD / Unknown Venipuncture / Unknown 02/18/2024 6:28 EST 02/18/2024 6:38 EST us Sandie Miller DO CHEMISTRY & BLOOD GAS ORDERABLES Final Result Performing Organization Address City/[facility]/ZIP Co de Phone Number [facility] [address] [place] [address] * POCT GLUCOSE, INTERFACED (02/17/2024 17:48 EST) Only the most recent of5 resultswithin the time period is included. Glucose, POC 84 70 - 100 mg/dL 02/17/2024 17:49 [facility] HN LAB POC COMMENT (GLUCOSE) Test Performed by Nursing Services 02/17/2024 17:49 [facility] Blood CAPILLARY BLOOD / Unknown 02/17/2024 17:48 EST 02/17/2024 17:49 EST us Sandie Miller DO POINT OF CARE TEST ORDERABLES Fi nal Result [facility] [address] [place] [address] * XR HIP RIGHT 1 VIEW (02/17/2024 15:20 EST) Anatomical Region Laterality Modality Lower Extremities Right Computed Radio graphy 02/17/2024 16:1 3 EST Impressions 02/17/2024 16:13 EST FINDINGS/IMPRESSION: 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 No periprosthetic fracture is seen. No acute left hip abnormality is seen. Atherosclerotic calcifications are present bilaterally. [id number] Narrative 02/17/2024 16:13 EST XR HIP RIGHT [...] abnormality is seen. Atherosclerotic calcifications arepresent bilaterally. [id number] Augustine Ceja MD IMG DIAGNOSTIC IMAGING OR [...] is seen. Atherosclerotic calcifications are present bilaterally. [id number] Narrative 02/17/2024 16:13 EST XR HIP RIGHT [...] of the lower pelvis. Resulting Agency Comment [id number] Procedure Note Gordo Palm MD - 02/17/2024 [...] abnormality is seen. Atherosclerotic calcifications arepresent bilaterally. [id number] us Augustine Ceja MD IMG DIAGNOSTIC IMAGING OR DERABLES Final Result * MA ARTL CATHJ/CANNULJ MNTR/TRANSFUSION SPX PRQ (02/17/2024 13:05 EST) N[facility]ative [facility] - 02/17/2024 13:05 EST Jason Morse MD ? 02/17/2024 14:40 Arterial Line Placement Date/Time: 02/17/2024 13:05 Staffing Performed: anesthesiologist and resident/PRODUCTION SKI REPAIRER/AA Performed by: Jason Morse MD Authorized by: [...] Final Result [facility] POINT OF CARE * MA AN SPINAL BLOCK - CATHETER (02/17/2024 12:25 EST) Narrative Lio Billings AA - 02/17/2024 12:25 EST Lio Billings AA ? 02/17/2024 12:28 Spinal Block Start time: 02/17/2024 12:27 End time: 02/17/2024 12:27 Reason for Procedure: ??surgical anesthesia Staffing Performed: resident/PRODUCTION SKI REPAIRER/AA and anesthesiologist Performed by: Lio Billings AA [...] 0.9 - 1.1 Ratio 02/17/2024 12:08 EST [facility] Pro Time 11.2 9.7 - 12.8 secs 02/17/2024 12:08 EST [facility] Blood VENOUS BLOOD / Unknown Venipuncture / Unknown 02/17/2024 11:41 EST 02/17/2024 11:50 EST Narrative [facility] - 02/17/2024 12:08 EST Moderate Intensity Coumadin INR = 2.0-3.0 Adjustments in anticoagulant therapy dose should be based on the INR and NOT on the Protime. us Jason Morse MD HEMATOLOGY & PF4 ORDERABLES Final Result Performing Organization Address City/[facility]/ZIP Co de Phone Number [facility] [address] [place] [address] * MAGNESIUM (02/17/2024 5:58 EST) Magnesium 2.1 1.7 - 2.8 mg/dL 02/17/2024 7:11 EST [facility] Blood VENOUS BLOOD / Unknown Venipuncture / Unknown 02/17/2024 5:58 EST 02/17/2024 6:07 EST us Marti Horn MD CHEMISTRY & BLOOD GAS ORDERABLES Final Result Performing Organization Address City/[facility]/ZIP Co de Phone Number [facility] [address] [place] [address] * TYPE AND SCREEN (02/16/2024 20:00 EST) ABO O 02/16/2024 21:54 EST [facility] Rh Factor Positive 02/16/2024 21:54 EST [facility] Antibody Screen Negative 02/16/2024 21:54 EST [facility] Specimen Expires: 02/19/2024 @ 23:59 02/16/2024 21:54 EST [facility] Blood VENOUS BLOOD / Unknown Venipuncture / Unknown 02/16/2024 20:00 EST 02/16/2024 20:09 EST us Ritesh Cardenas MD BLOOD BANK TESTS Edited Resul t - Final [facility] [address] [place] [address] * CT ANGIO CHEST PE PROTOCOL (02/16/2024 [...] above interpretation and agree with the findings. [id number] Narrative 02/17/2024 10:[address] ANGIO CHEST [...] lesions. Multilevel degenerative changes. Resulting Agency Comment [id number] Procedure Note Sonia Salazar MD - 02/17/2024 [...] the above interpretation andagree with the findings. [id number] us Sandie Miller DO IMG CT ORDERABLES [...] left hip. The soft tissues are unremarkable. [id number] Narrative 02/16/2024 18:27 EST XR HIP LEFT 2-3 VIEWS OPTIONAL PELVIS, XR HIP RIGHT 1 VIEW ??02/16/2024 5:52 PM Signs and Symptoms/Comments: right hip pain Comparison: Pelvic x-ray 02/15/2024. Technique: AP orthopedic view of the pelvis which includes an AP view of both hips, with additional AP view of the left hip. Resulting Agency Comment [id number] Procedure Note Sonia Salazar MD - 02/16/2024 [...] theleft hip. The soft tissues are unremarkable. [id number] Ritesh Cardenas MD IMG DIAGNOSTIC IMAGING ORDERA [...] left hip. The soft tissues are unremarkable. [id number] Narrative 02/16/2024 18:27 EST XR HIP LEFT [...] theleft hip. The soft tissues are unremarkable. [id number] us Ritesh Cardenas MD IMG DIAGNOSTIC IMAGING ORDERA BLES Final Result * (ABNORMAL) PROCALCITONIN (02/16/2024 17:00 EST) Procalcitonin 0.96(H) See Note ng/mL 02/16/2024 18:25 EST [facility] Comment: NOTE: Reference Range: <0.5 ng/mL - Low risk of severe sepsis >2.0 ng/mL - High risk of severe sepsis Blood VENOUS BLOOD / Unknown Venipuncture / Unknown 02/16/2024 17:00 EST 02/16/2024 17:15 EST us Sandie Miller DO CHEMISTRY & BLOOD GAS ORDERABLES Final Result [facility] [address] [place] [phone] * (ABNORMAL) PTT (02/16/2024 17:00 EST) PTT 20(L) 26 - 37 secs 02/16/2024 18:17 EST [facility] Blood VENOUS BLOOD / Unknown Venipuncture / Unknown 02/16/2024 17:00 EST 02/16/2024 17:30 EST Ritesh Cardenas MD HEMATOLOGY & PF4 ORDERABLES F inal Result Performing Organization Address [facility] Co de Phone Number [facility] [address] [place] [address] * HEPARIN LEVEL - UNFRACTIONATED HEPARIN (02/16/2024 17:00 EST) Heparin Level-UFH 0.05 Therapeutic Range: 0.30 - 0.70 IU/mL 02/16/2024 18:22 EST [facility] Comment:Unfractionated hepar in therapeutic [...] Saadia l Result Performing Organization Address [facility] Co de Phone Number [facility] [address] [place] [id number] * (ABNORMAL) HEMOGLOBIN A1C (02/16/2024 17:00 EST) Hemoglobin A1c 6.1(H) <5.7 % 02/16/2024 21:15 EST [facility] Comment: Glycemic Status References: Normal: ??<5.7% Pre-Diabetes: ??5.7% - 6.4% Diagnostic of Diabetes: ??> or = 6.5% (if confirmed) Est Avg Glucose 128 mg/dL 21:15 EST [facility] Comment:The eAG represents t he A1c result expressed as average glucose in mg/dL. Blood VENOUS BLOOD / Unknown Venipuncture / Unknown 02/16/2024 17:00 EST 02/16/2024 17:16 EST us Sandie Miller DO CHEMISTRY & BLOOD GAS ORDERABLES Final Result [facility] [address] [place] [address] * EKG 12-LEAD (02/16/2024 16:44 EST) 02/16/2024 16:4 4 EST Narrative [facility] E[facility] - 02/28/2024 10:28 EST ? [facility] ? Test Date: ?2024-02-16 Pat Name: ? BI SUE ? Department: ?? Garcia 4 ? Room: ? M415 Gender: ? Male ? Counseling Specialist: ?? : ?1940 ? Requested By: JESUS FREEMAN Order Number: [id number] ? Reading MD: ?? IMANI LOMAS MD ? Measurements Intervals ?Sinclair ? Rate: ? 104 ?P: ?73 MA: ? 147 ?QRS: ?-58 QRSD: ? 127 [...] Note Imani Lomas MD - 02/28/2024 [facility] Test Date: 2024-02-16 Pat Name: BI SUE Department: Garcia 4 Room: [facility] Gender: Male Counseling Specialist: : 1940 Requested By: JESUS FREEMAN Order Number: [id number] Reading MD: IMANI LOMAS MD Measurements Intervals Sinclair Rate: 104 P: 73 MA: 147 QRS: -58 QRSD: 127 T: 61 [...] preliminary report. Edited by CRISTELA TERRY MD [id number] 20:18:03 EST. I reviewed the tracing and have either agreed or edited the findings inthis report. Electronically Signed On 02-28-2024 10:28:35 EST by CAPO CLEMONS. us Sandie Miller DO CARDIAC ECG ORDERABLES Final Res ult [facility] E[facility] * EXPANDED RESPIRATORY VIRAL PANEL, PCR (DOES NOT INCLUDE INFLUENZA OR RSV) (02/16/2024 12:07 EST) Paraflu Type 1 Rslt (PF1RES) Negative Negative 02/17/2024 1:26 EST [facility] Paraflu Type 2 Rslt (PF2RES) Negative Negative 02/17/2024 1:26 EST [facility] Paraflu Type 3 Rslt (PF3RES) Negative Negative 02/17/2024 1:26 EST [facility] Paraflu Type 4 Rslt Negative Negative 02/16 1:26 EST [facility] Rhinovirus RNA Rslt (RVRES) Negative Negative 02/17/2024 1:26 EST [facility] Metapneumovirus RNA Rslt (HMVRES) Negative Negative 02/17/2024 1:26 EST [facility] Adenovirus DNA Rslt (ADVRES) Negative Negative 02/17/2024 1:26 EST [facility] Swab NASOPHARYNGEAL STRUCTURE / Unknown Swab / Unknown 02/16/2024 12:07 EST 02/16/2024 12:39 EST Dominique Goldstein MD MICROBIOLOGY - GENERAL ORDERABLE S Final Result [facility] [address] [place] [address] * MRSA PCR (02/16/2024 11:36 EST) [facility] MRSA PCR Not Detected Not Detected 02/16/2024 13:27 EST [facility] Comment:MRSA target DNA is n ot detected (presumed not colonized with MRSA). Swab BOTH ANTERIOR NARES / Unknown Swab / Unknown 02/16/2024 11:36 EST 02/16/2024 11:45 EST us Dominique Goldstein MD MICROBIOLOGY - GENERAL ORDERABLE S Final Result Performing Organization Address City/[facility]/ZIP Co de Phone Number [facility] [address] [place] [address] * STREPTOCOCCUS PNEUMONIAE ANTIGEN, URINE (02/16/2024 11:36 EST) Pathologist [facility] Strep Pneumo Ag Detection, Urine Negative Negative 02/16/2024 12:33 EST [facility] Urine URINE / Unknown Urine Collect / Unknown 02/16/2024 11:36 EST 02/16/2024 11:45 EST Narrative [facility] - 02/16/2024 12:33 EST Presumptive negative for pneumococcal pneumonia, suggesting no current or recent infection. ??Infection due to S.pneumoniae cannot be ruled out since the antigen present in the sample may be below detection limit of the test. us Dominique Goldstein MD MICROBIOLOGY - GENERAL ORDERABLE S Final Result Performing Organization Address [facility]/ZIP Co de Phone Number [facility] [address] [place] [address] * LEGIONELLA ANTIGEN DETECTION, URINE (02/16/2024 11:36 EST) Legionella Antigen Detection Negative Negative 02/16/2024 12:33 EST [facility] Urine URINE / Unknown Urine Collect / Unknown 02/16/2024 11:36 EST 02/16/2024 11:45 EST [facility] - 02/16/2024 12:33 EST [...] S Final Result Performing Organization Address [facility] Co de Phone Number [facility] [address] [place] [address] * XR CHEST PORTABLE 1 VIEW (02/16/2024 10:59 EST) Anatomical Region Laterality Modality Computed Radiogr aphy 02/16/2024 11:0 5 EST Impressions 02/16/2024 11:05 EST Small bilateral pleural effusions. Slight interval increase in patchy airspace opacities at both lung bases and in the suprahilar right lung. [id number] Narrative 02/16/2024 11:05 EST XR CHEST PORTABLE [...] findings: ??Normal. Bones: Normal. Resulting Agency Comment [id number] Procedure Note Aaron Boone MD - 02/16/2024 [...] bases and in the suprahilar right lung. [id number] us Leda Ng MD IMG DIAGNOSTIC IMAGING OR DERABLES Final Result * ECG REPORT - SCANNED (02/16/2024 10:05 EST) 02/16/2024 10:0 5 EST us Scan 2 [employer] PROCEDURE/MINOR SURGICAL OR DERABLES Final Result * (ABNORMAL) TROPONIN I (02/16/2024 9:34 EST) Only the most recent of3 resultswithin the time period is included. Troponin I (ng/mL) 0.244(H) <0.034 ng/mL 02/16/2024 10:14 EST [facility] Blood VENOUS BLOOD / Unknown Venipuncture / Unknown 02/16/2024 9:34 EST 02/16/2024 9:40 EST Narrative [facility] - 02/16/2024 10:14 EST The results of this assay can be falsely lowered due to the consumption of Biotin. us Krystian Anne MD CHEMISTRY & BLOOD GAS ORDERAB LES Final Result [facility] [address] [place] [address] * TRANSTHORACIC ECHO (TTE) COMPLETE W/DOPPLER W/CF [...] i-STAT 7.44(H) 7.31 - 7.41 02/16/2024 5:43 [facility] pCO2, Venous, i-STAT 45 41 - 51 mmHg 02/16/2024 5:43 [facility] pO2, Venous, i-STAT 41 30 - 50 mmHg 02/16/2024 5:43 [facility] TCO2, Venous, i-STAT 32(H) 22 - 28 mmol/L 02/16/2024 5:43 [facility] O2 Saturation, Venous, i-STAT 78 60 - 85 % 02/16/2024 5:43 [facility] Base Excess(+) / Deficit(-), Venous, i-STAT 6(H) -2 - 3 mmol/L 02/16/2024 5:43 [facility] Blood VENOUS BLOOD / Unknown 02/16/2024 5:41 EST 02/16/2024 5:43 EST Narrative [facility] - 02/16/2024 5:43 EST Test Performed by Respiratory us Lacey Hassan DO POINT OF CARE TEST ORDERABL ES Final Result [facility] [address] [place] [address] * CK (02/16/2024 5:37 EST) Only the most recent of2 resultswithin the time period is included. CK 114 <=250 U/L 02/16/2024 6:05 EST [facility] Comment:Moderate hemolysis i dentified, interpret with caution as results may be affected due to hemolysis. Blood VENOUS BLOOD / Unknown Venipuncture / Unknown 02/16/2024 5:37 EST 02/16/2024 5:43 EST us Krystian Anne MD CHEMISTRY & BLOOD GAS ORDERAB LES Final Result Performing Organization Address [facility] de Phone Number [facility] [address] [place] [address] * HN LAB CBC SMEAR REVIEW (02/16/2024 5:36 EST) Differential Comment Slide was examined by a technologist to verify the WBC and/or platelet count. 02/16/2024 6:01 EST [facility] Blood VENOUS BLOOD / Unknown Venipuncture / Unknown 02/16/2024 5:36 EST 02/16/2024 5:43 EST Homer Tan MD HEMATOLOGY & PF4 ORDERABLES Fin al Result Performing Organization Address [facility] Co de Phone Number [facility] [address] [place] [address] * EKG 12-LEAD (02/15/2024 16:26 EST) 02/15/2024 16:2 6 EST Narrative [facility] - 02/16/2024 9:57 EST ? [facility] ? Test Date: ?2024-02-15 Pat Name: ? BI SUE ? Department: ? Room: ? 305 Gender: ? Male ? Counseling Specialist: ?? CS : ?1940 ? Requested By: YURY NAYLOR Order Number: [id number] ? Reading MD: ?? CARLOS ALBERTO REYNOLDS MD ? Measurements Intervals ?Sinclair ? Rate: ? 110 ?P: ?77 MA: ? 138 ?QRS: ?-19 QRSD: ? 120 [...] Alberto Reynolds MD - 02/16/2024 [facility] Test Date: 2024-02-15 Pat Name: BI SUE Department: Room: [facility] Gender: Male Counseling Specialist: : 1940 Requested By: YURY NAYLOR Order Number: [id number] Reading MD: CARLOS ALBERTO REYNOLDS MD Measurements Intervals Sinclair Rate: 110 P: 77 MA: 138 QRS: -19 QRSD: 120 T: 84 [...] ORDERABLES Final Res ult Performing Organization Address City/[facility]/ZIP Co de Phone Number [facility] * HOLD LAVENDER TOP (02/15/2024 15:19 EST) Hold Hold 02/15/2024 16:31 EST [facility] Blood VENOUS BLOOD / Unknown Venipuncture / Unknown 02/15/2024 15:19 EST 02/15/2024 15:25 EST Krystian Anne MD LAB INFO SERVICE AND SUPPORT & PHONE RESULT Final Result Performing Organization Address [facility]/ZIP Co de Phone Number [facility] [address] [place] [address] * HOLD GREEN TOP (02/15/2024 15:19 EST) Hold Hold 02/15/2024 16:31 [facility] Blood VENOUS BLOOD / Unknown Venipuncture / Unknown 02/15/2024 15:19 EST 02/15/2024 15:25 EST us Krystian Anne MD LAB INFO SERVICE AND SUPPORT & PHONE RESULT Final Result [facility] [address] [place] [address] * (ABNORMAL) COMPLETE BLOOD COUNT AND DIFFERENTIAL (02/15/2024 15:19 EST) WBC 21.84(H) 4.00 - 10.40 K/cmm 02/15/2024 16:30 [facility] RBC 4.54 4.36 - 5.78 M/cmm 02/15/2024 16:30 [facility] Hemoglobin 14.5 13.8 - 17.3 g/dL 02/15/2024 16:30 [facility] HCT 44.8 39.5 - 50.2 % 02/15/2024 16:30 [facility] MCV 99(H) 81 - 95 fL 02/15/2024 16:30 [facility] MCH 31.9 27.6 - 33.0 pg 02/15/2024 16:30 [facility] MCHC 32.4(L) 32.8 - 36.4 g/dL 02/15/2024 16:30 [facility] RDW-CV 14.9(H) <14.2 % 02/15/2024 16:30 [facility] RDW-SD 54.5(H) <46.0 fl 02/15/2024 16:30 [facility] PLT 151 141 - 377 K/cmm 02/15/2024 16:30 [facility] MPV 11.6 9.5 - 12.7 fL 02/15/2024 16:30 [facility] % Neutrophils 89.3 Not Indicated % 02/15/2024 16:30 [facility] % Lymphocytes 3.1 Not Indicated % 02/15/2024 16:30 [facility] % Monocytes 6.6 Not Indicated % 02/15/2024 16:30 [facility] % Eosinophils 0.0 Not Indicated % 02/15/2024 16:30 [facility] % Basophils 0.2 Not Indicated % 02/15/2024 16:30 [facility] % Immature Grans 0.8 <0.9 % 02/15/2024 16:30 [facility] Absolute Neutrophils 19.49(H) 2.20 - 8.85 K/cmm 02/15/2024 16:30 [facility] Absolute Lymphocytes 0.67(L) 1.09 - 3.30 K/cmm 02/15/2024 16:30 [facility] Absolute Monocytes 1.45(H) 0.10 - 0.80 K/cmm 02/15/2024 16:30 [facility] Absolute Eosinophils 0.00(L) 0.03 - 0.61 K/cmm 02/15/2024 16:30 [facility] ABS Basophils 0.05 0.01 - 0.11 K/cmm 02/15/2024 16:30 [facility] Absolute Immature Grans 0.18(H) 0.00 - 0.06 K/cmm 02/15/2024 16:30 [facility] Type of Differential: Auto 02/15/2024 16:30 [facility] Blood VENOUS BLOOD / Unknown Venipuncture / Unknown 02/15/2024 15:19 EST 02/15/2024 15:25 EST us Dominique Goldstein MD PACKAGES & DNA PROBE ORDERABLES Final Result [facility] [address] [place] [address] * SARS COV2, FLU A/B, RSV DETECT BY PCR (02/15/2024 15:13 EST) FLU A RNA Result (FLARES) Negative Negative 02/15/2024 16:22 [facility] FLU B RNA Result (FLBRES) Negative Negative 02/15/2024 16:22 [facility] RSV RNA Result (RSVRES) Negative Negative 02/15/2024 16:22 [facility] COVID-19 rt-PCR Result Negative Negative 02/15/2024 16:22 [facility] Comment: The 2019 novel coronavirus (SARS-CoV-2) target nucleic acids are not detected. Performed on the [employer] GeneXpert Instrument Swab NASOPHARYNGEAL STRUCTURE / Unknown Swab / Unknown 02/15/2024 15:13 EST 02/15/2024 15:18 EST us Krystian Anne MD MICROBIOLOGY - GENERAL ORDERA BLES Final Result [facility] [address] [place] [address] * CT OUTSIDE IMAGES ABDOMEN PELVIS (02/15/2024 [...] from Last 3 Months Insurance MEDICARE MEDICARE [facility] [place] [address] [place] [address] [address] [facility] [place] [address] [place] [address] [place] [address] [place] [address] Advance Directives For more information, please contact: [phone] * Limitation of Treatment (Latest Code Status [...] Made the Decision? Default/Not Discussed Care Teams Project Manager Process Development Relationship Specialty Start Date End Date Suzie Quan MD [address] [place] [id number] PCP - General Family Medicine - Primary Care 02/15/24
--- OUTSIDE RECORDS SUMMARY | 2024-04-01 21:02 | XMS_ITS | Encounter Summary ---
Author Organization [facility] Address [address] [place] [address] Care Team Providers Care Metal Sander Name Role Phone Suzie Quan MD Primary Care Provider [phone] Encounter Details Date Type Department Care Team (Late st Contact Info) Description 03/14/2024 Orders Only [facility] Hand & Upper Extremity Program - [address] [place] [address] Ko Marquis PA-C [address] [place] [address] Closed fracture of right hip with routine healing, subsequent encounter (Primary Dx) Social History Tobacco Use Types Packs/Day Years Used Date Smoking Tobacco: Former Cigarettes Alcohol Use Standard Drinks/Week Comments Never 0 (1 standard drink = 0.6 oz pur e alcohol) [facility] Utilities Answer Date Recorded In the past 12 months has e [employer], gas, oil, or water [employer] threatened to shut off services in your [...] were you homeless or living in a fpc (including now)? No 02/16/2024 [facility] - Inadequate Housing Answer Date Re corded What is your living situation today? I have a [facility] place to live 02/20/2024 Think about [...] Contact Info) Description 04/05/2024 10:15 EST Appointment [facility] Xray [address] [place] [address] 04/05/2024 10:30 EST Post-op Visit [facility] Orthopedic Trauma - [address] [address] Ko Marquis PA-C [address] [place] [phone] Scheduled Orders Name Type Priority Associated Diagnoses Orde r Schedule XR HIP RIGHT 2-3 VIEWS OPTIONAL PELVIS Imaging Routine Closed fracture of right hip with routine healing, subsequent encounter Expected: 04/05/2024 documented as of this encounter Visit Diagnoses Diagnosis Closed fracture of right hip with routine healing, subsequent encounter- Primary documented in this encounter Care Teams Metal Sander Relationship Specialty Start Date End Date Suzie Quan MD [address] [place] [address] PCP - General Family Medicine - Primary Care 02/15/24 documented as of this encounter
--- OUTSIDE RECORDS SUMMARY | 2024-04-01 21:02 | XMS_ITS | Encounter Summary ---
Author Organization [facility] Address [address] [place] [address] Care Team Providers Care Garnett Mechanic Name Role Phone Suzie Villagomez MD Primary Care Provider [phone] Reason for Referral * Consult (Routine/Next Available) - Receiving Office to Obtain Authorization Specialty Diagnoses / Procedures Referred By Jean Carlos t Referred To Contact Orthopedic Surgery Diagnoses Closed right hip fracture, initial encounter ([facility]) Farnaz Sanchez NP [address] [place] [phone] Phone: tel: fax: Ko Marquis PA-C [address] [place] [phone] Phone: tel: fax: Referral ID Status Reason Start Date Expiration Date Visits Requested Visits Authorized [id number] Receiving Office to Obtain Authorization Post Op [...] osteoporosis type, initial encounter Farnaz Sanchez NP [address] [place] [phone] Phone: tel: fax: [facility] - [address] [address] Phone: tel: fax: Referral ID Status Reason Start Date Expiration Date Visits Requested Visits Authorized [id number] Receiving Office to Obtain Authorization Specialty Services [...] To Contact Diagnoses Acute hypoxic respiratory failure ([facility]) Hip fracture Referral ID Status Reason Start Date Expiration Date Visits Re quested Visits Authorized [id number] 1 1 Encounter Details Date Type Department Care Team (Late st Contact Info) Description 02/16/2024 15:41 EST - 02/29/2024 12:20 EST Hospital Encounter [facility] General Medicine Unit [address] [place], [place] [id number] Ritesh Cardenas MD [address] [place] [address], [facility] [address] [place] [phone] Murtaza Adams MD [address] [place] [phone] Marcos Quintero MD [address] [place] [phone] Cuco Vazquez MD [address] [place] [phone] Jone Em MD [address] [phone] Pushpa Welch MD [address] [phone] Closed right hip fracture, initial encounter ([facility]) (Primary Dx); Acute hypoxic respiratory failure ([facility]) [J96.01]; Osteoporosis with current pathological fracture, unspecified osteoporosis type, initial encounter; Chronic obstructive pulmonary disease, unspecified COPD type ([facility]) [J44.9]; Pulmonary hypertension ([facility]) [I27.20]; Atrial fibrillation, unspecified type ([facility]) [I48.91]; Urinary retention [R33.9]; Hypertension, unspecified type [I10]; Thrush [B37.0]; PFO (patent foramen ovale); Pulmonary emphysema, unspecified emphysema type ([facility]) Discharge Disposition: Nursing Facility (Skilled) Social History Tobacco Use Types Packs/Day Years Used Date Smoking Tobacco: Former Cigarettes Alcohol Use Standard Drinks/Week Comments Never 0 (1 standard drink = 0.6 oz pur e alcohol) [facility] Utilities Answer Date Recorded In the past 12 months has [employer], gas, oil, or water [employer] threatened to shut off services in your [...] were you homeless or living in a usp (including now)? No 02/16/2024 [facility] - Inadequate Housing Answer Date Re corded What is your living situation today? I have a [facility] place to live 02/20/2024 Think about [...] Admit Date: 02/16/2024 Discharge Date: 02/29/24 Disposition: retirement facility/Subacute rehab Reason for Admission: hip fracture Principal/Final Diagnosis: Acute hypoxic respiratory failure ([facility]) Active Hospital Problems Diagnosis Date Noted *Acute hypoxic respiratory failure ([facility]) 02/16/2024 PFO (patent foramen ovale) 02/27/2024 Atrial fibrillation ([facility]) 02/26/2024 Urinary retention 02/26/2024 Hypertension 02/26/2024 Thrush 02/26/2024 Osteoporosis with current pathological fracture 02/22/2024 Pulmonary hypertension ([facility]) 02/16/2024 Chronic obstructive pulmonary disease ([facility]) 02/16/2024 Closed right hip fracture, initial encounter ([facility]) 02/15/2024 Resolved Hospital Problems No resolved problems to display. Condition at Discharge: Improved Clinical Issues Needing Follow-up: -Needs osteoporosis treatment post DC, ortho placed referral to the Fracture Liaison Service with [facility] Endocrinology - 2 weeks postoperative wound check to be completed by rehabilitation or orthopedic MD/CHAVA. - 6 weeks postoperative follow-up with orthopedic trauma clinic for repeat clinical and radiographic evaluation. (Referral placed for [facility] follow up - could explore placing referral for ortho closerto home) - Referral to outpatient pulmonology/cardiology in [facility] (order not placed) - Discharging with [...] GERD, and HTN, who was transferred from [facility] to [facility] and then [facility] for surgical management of a right femoral [...] which may represent aspiration pneumonitis. Smallright effusion. [id number] XR CHEST PORTABLE 1 VIEW Result Date: 02/18/2024 Bilateral small pleural effusions and bibasilar opacities compatible with atelectasis. [id number] XR HIP RIGHT 1 VIEW Result Date: 02/17/2024 FINDINGS/IMPRESSION: 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 No periprosthetic fracture is seen. No acute left hip abnormality is seen. Atherosclerotic calcifications arepresent bilaterally. [id number] XR HIP LEFT 1 VIEW Result Date: 02/17/2024 FINDINGS/IMPRESSION: 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 No periprosthetic fracture is seen. No acute left hip abnormality is seen. Atherosclerotic calcifications arepresent bilaterally. [id number] CT ANGIO CHEST PE PROTOCOL Result Date: [...] above interpretation and agree with the findings. [id number] XR HIP RIGHT 1 VIEW Result Date: 02/16/2024 Findings/impression: Redemonstrated right femoral neck fracture, not significantly changed. No left-sided hip fracture or dislocation. Mild degenerative changes of the left hip. The soft tissues are unremarkable. [id number] XR HIP LEFT 2-3 VIEWS OPTIONAL PELVIS Result Date: 02/16/2024 Findings/impression: Redemonstrated right femoral neck fracture, not significantly changed. No left-sided hip fracture or dislocation. Mild degenerative changes of the left hip. The soft tissues are unremarkable. [id number] XR CHEST PORTABLE 1 VIEW Result Date: 02/16/2024 Small bilateral pleural effusions. Slight interval increase in patchy airspace opacities at both lung bases and in the suprahilar right lung. [id number] No Known Allergies There is no immunization history for the selected administration types on file for this patient. Results Pending at Discharge Test results still pending from this admission None Follow-up appointments and procedures Amb Consult/Follow Up Orthopedics - [facility] Scheduling Comments (optional - describe specific scheduling [...] DISCHARGE NOTE DISCHARGE DATE/TIME: 02/29/24 11:15-12:00 DESTINATION: [facility] rehab [address] [place] [address] (If discharging to [facility]) COVID swab ordered and completed: na TRANSPORTATION: [facility] ACCEPTING MD AND NUMBER: ira RN REPORT/UNIT: [phone] POWER STATION OPERATOR/CHARGE/MD NOTIFIED (Y/N): Y FORMS: (Acute to acute, COLST, MOLST, KEON, Screen, PASRR, Ambulance): COLST,PASRR, Ambulance form, LENA IM SIGNED (Y/NA): na HOME HEALTH: [facility] - services on hold DME: [employer] PHARMACY/PRESCRIPTIONS: facility MEDS TO BEDS UTILIZED : NO Patient and/or family who participated in discharge plan: patient and granddaughter Dang TAMMY Navarrete Information Systems Security Manager II Epic chat preferred. 02/26/2024 11:57 * [...] needs and plan for his transition to [facility]. Called and updated granddaughter Dang. Review [...] hypertension who transferred to our institution from [facility] with a right femoral neck [...] oxygenation for movement to get him to [facility]. Case discussed today with RT, RN [...] this today so able to go to [facility] with this tentatively tomorrow - outpatient [...] referral to the Fracture Liaison Service with [facility] Endocrinology - Vit D 2000U/d, tylenol and dilaudid for pain Thrush - nystatin swish and spit Urinary retention CHRISTIANO - resolved to baseline - failed a few lewis trials, tamsulosin started 02/25 and can retrial at [facility]/urology o/p Afib with RVR - new this hospitalization, not on AC outpatient - confirmed with 02/25 his med list - apixaban 2.5 BID started this hospital stay. Would benefit from o/p holter to assess frequency - MANAGER STONE metoprolol, received amio in the ICU Chronic comorbidities HTN - home metoprolol, amlodpine 10mg on hold GERD - home protonix HLD/CAD - home ASA Incidental findings Spiculated lung nodule seen on CT chest - needs repeat imaging 1 month post treatment outpatient toensure resolution VTE Prophylaxis apixaban Discharge Plan [facility] - if stable respiratory status on [...] decreased Response: Mild response, increase subjective per HOME CARE ATTENDANT Pulse: <100 Resp Rate: 18-25 SOB: With [...] hypertension who transferred to our institution from [facility] with a right femoral neck [...] referral to the Fracture Liaison Service with [facility] Endocrinology - Vit D 2000U/d, tylenol and dilaudid for pain Thrush - nystatin swish and spit Urinary retention CHRISTIANO - resolved to baseline - failed a few lewis trials, tamsulosin started 02/25 and can retrial 02/27 vs at [facility]/urology o/p Afib with RVR - new this hospitalization, not on AC outpatient - confirmed with 02/25 his med list - apixaban 2.5 BID started this hospital stay. Would benefit from o/p holter to assess frequency - MANAGER STONE metoprolol, received amio in the ICU Chronic comorbidities HTN - home metoprolol, amlodpine 10mg on hold GERD - home protonix HLD/CAD - home ASA Incidental findings Spiculated lung nodule seen on CT chest - needs repeat imaging 1 month post treatment outpatient toensure resolution VTE Prophylaxis apixaban Discharge Plan [facility] - if stable respiratory status on [...] decreased Response: Mild response, increase subjective per HOME CARE ATTENDANT Pulse: <100 Resp Rate: <18 SOB: With [...] Julianne Pascal - 02/27/[address] [facility] Department of Case Management and Social [...] [facility] until . [employer] TAMMY Navarrete Information Systems Security Manager II Epic chat preferred. 02/27/2024 9:43 02/27/24 [...] - but states home health would. Called [facility] who confirmed the following meds: Multivitamin with [...] hypertension who transferred to our institution from [facility] with a right femoral neck [...] referral to the Fracture Liaison Service with [facility] Endocrinology - Vit D 2000U/d, tylenol and dilaudid for pain Thrush - nystatin swish and spit Urinary retention CHRISTIANO - resolved to baseline - failed a few lewis trials, tamsulosin started 02/25 and can retrial 02/27 vs at [facility]/urology o/p Afib with RVR - new this hospitalization, not on AC outpatient - confirmed with 02/25 his med list - apixaban 2.5 BID started this hospital stay. Would benefit from o/p holter to assess frequency - MANAGER STONE metoprolol, received amio in the ICU Chronic comorbidities HTN - home metoprolol, amlodpine 10mg on hold GERD - home protonix HLD/CAD - home ASA Incidental findings Spiculated lung nodule seen on CT chest - needs repeat imaging 1 month post treatment outpatient toensure resolution VTE Prophylaxis apixaban Discharge Plan [facility] - if stable respiratory status as [...] H&R postponed by provider as precaution to stability. [facility]. Confirmed that if he is confirmed to be stable, they can take him tomorrow. CM cancelled ambulance ride and will reschedule in the morning as appropriate. CM notified granddaughter Dang. CM will continue to follow and coordinate safe discharge. TAMMY Navarrete Information Systems Security Manager II Epic chat preferred. 02/26/2024 12:00 * Laine Coe, PT - 02/26/[address] [facility] Rehabilitation Therapy Acute Therapy [facility] ADDENDUM: This addendum is intended as a [...] during admission. He has been dc to [facility] 02/28 to further progress functionalindep and [...] Completed Today: Physical Therapy Today At: Time: [id number] minutes Present for the Therapy Session Comments: [...] During therapy session, After therapy session By: [id number] communication Additional communication about Patient Status and [...] go to rehab closer to family in [place]. Objective Vital Signs Temp: [36.7 ??C (98.1 [...] effusions and bibasilar opacities compatible with atelectasis. [id number] XR HIP RIGHT 1 VIEW Result Date: 02/17/2024 FINDINGS/IMPRESSION: 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 No periprosthetic fracture is seen. No acute left hip abnormality is seen. Atherosclerotic calcifications arepresent bilaterally. [id number] XR HIP LEFT 1 VIEW Result Date: 02/17/2024 FINDINGS/IMPRESSION: 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 No periprosthetic fracture is seen. No acute left hip abnormality is seen. Atherosclerotic calcifications arepresent bilaterally. [id number] CT ANGIO CHEST PE PROTOCOL Result Date: [...] above interpretation and agree with the findings. [id number] XR HIP RIGHT 1 VIEW Result Date: 02/16/2024 Findings/impression: Redemonstrated right femoral neck fracture, not significantly changed. No left-sided hip fracture or dislocation. Mild degenerative changes of the left hip. The soft tissues are unremarkable. [id number] XR HIP LEFT 2-3 VIEWS OPTIONAL PELVIS Result Date: 02/16/2024 Findings/impression: Redemonstrated right femoral neck fracture, not significantly changed. No left-sided hip fracture or dislocation. Mild degenerative changes of the left hip. The soft tissues are unremarkable. [id number] XR CHEST PORTABLE 1 VIEW Result Date: 02/16/2024 Small bilateral pleural effusions. Slight interval increase in patchy airspace opacities at both lung bases and in the suprahilar right lung. [id number] Assessment/Plan Assessment Noe Sue is a 83 y.o. male with a PMHx of COPD (3-5L home oxygen), possible AF (he denies ever being told he has AF), GERD, and HTN, who was transferred from [facility] to [facility] and then [facility] for surgical management of a right femoral [...] Symbicort q12h (LABA/ICS), spiriva daily to replace MANAGER STONE LAMA - Hold MANAGER STONE Anoro Ellipta (LAMA/LABA) - Wean off of supplemental O2 as tolerated - Maintain SpO2 88-92% - RT following, airway clearance - On discharge would need good pulmonology FU, could benefit from pulmonary rehab. Severe pulmonary HTN with RV failure Suspect group 3 pulm HTN (2/2 lung disease) S/p lasix 160 mg and 5 mg metolazone 02/16/24 at [facility] prior to transfer. Multiple doses of IV lasix given, titrated to kidney function and respiratory function. - Oral diuresis with lasix 20mg. CHRISTIANO resolved. Patient's creatinine on admission 2.54, baseline Cr about 1 per note from [facility]. - Daily BMP - Strict I/Os Urinary Retention Denies retention at home but has thus far failed void trial 02/18, 02/22 - lewis was replaced 02/24, likely can do void trial in 1-2 days to see if retention is improved bytamsulosin - tamsulosin 0.4 at bedtime. Afib with RVR Patient denies h/o AF or taking eliquis, but report from [facility] said his last dose of eliquis was 02/13). EDGAR-VASc score of 4 with 4.8% stroke risk. - Started Eliquis 2.5mg BID (dose reduced given pt's advanced age, serum Cr., and weight) - Dc'd Telemetry monitoring d/t stable rate control over the past several days, low threshold to restart if rates sustained >110. - Continue MANAGER STONE metoprolol XL 25 mg daily Right femoral [...] referral to the Fracture Liaison Service with [facility] Endocrinology - Vit D 2000U/d - PT recs TANI Chronic: HTN - Cont MANAGER STONE metoprolol XL 25 mg daily - Holding MANAGER STONE amlodipine 10 mg daily GERD - MANAGER STONE pantoprazole 40/d Constipation, resolved VTE Prophylaxis: apixaban [...] 16:01 * Israel Herrmann, RT - 02/24/2024 1400 EST Respiratory Consult/Progress Note Indications for Respiratory [...] decreased Response: Mild response, increase subjective per HOME CARE ATTENDANT Pulse: <100 Resp Rate: 18-25 SOB: With [...] go to rehab closer to family in [place]. Objective Vital Signs Temp: [37 ??C (98.6 [...] effusions and bibasilar opacities compatible with atelectasis. [id number] XR HIP RIGHT 1 VIEW Result Date: 02/17/2024 FINDINGS/IMPRESSION: 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 No periprosthetic fracture is seen. No acute left hip abnormality is seen. Atherosclerotic calcifications arepresent bilaterally. [id number] XR HIP LEFT 1 VIEW Result Date: 02/17/2024 FINDINGS/IMPRESSION: 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 No periprosthetic fracture is seen. No acute left hip abnormality is seen. Atherosclerotic calcifications arepresent bilaterally. [id number] CT ANGIO CHEST PE PROTOCOL Result Date: [...] above interpretation and agree with the findings. [id number] XR HIP RIGHT 1 VIEW Result Date: 02/16/2024 Findings/impression: Redemonstrated right femoral neck fracture, not significantly changed. No left-sided hip fracture or dislocation. Mild degenerative changes of the left hip. The soft tissues are unremarkable. [id number] XR HIP LEFT 2-3 VIEWS OPTIONAL PELVIS Result Date: 02/16/2024 Findings/impression: Redemonstrated right femoral neck fracture, not significantly changed. No left-sided hip fracture or dislocation. Mild degenerative changes of the left hip. The soft tissues are unremarkable. [id number] XR CHEST PORTABLE 1 VIEW Result Date: 02/16/2024 Small bilateral pleural effusions. Slight interval increase in patchy airspace opacities at both lung bases and in the suprahilar right lung. [id number] Assessment/Plan Assessment Noe Sue is a 83 y.o. male with a PMHx of COPD (3-5L home oxygen), possible AF (he denies ever being told he has AF), GERD, and HTN, who was transferred from [facility] to [facility] and then [facility] for surgical management of a right femoral [...] Symbicort q12h (LABA/ICS), spiriva daily to replace MANAGER STONE LAMA - Hold MANAGER STONE Anoro Ellipta (LAMA/LABA) - Wean off of supplemental O2 as tolerated - Maintain SpO2 88-92% - RT following, airway clearance - On discharge would need good pulmonology FU, could benefit from pulmonary rehab. Severe pulmonary HTN with RV failure Suspect group 3 pulm HTN (2/2 lung disease) S/p lasix 160 mg and 5 mg metolazone 02/16/24 at [facility] prior to transfer. Multiple doses of IV lasix given, titrated to kidney function and respiratory function. - Oral diuresis with lasix 20mg. CHRISTIANO resolved. Patient's creatinine on admission 2.54, baseline Cr about 1 per note from [facility]. - Daily BMP - Strict I/Os Urinary Retention Denies retention at home but has thus far failed void trial 02/18 - remove lewis and repeat void trial today 02/22 Afib with RVR Patient denies h/o AF or taking eliquis, but report from [facility] said his last dose of eliquis was 02/13). EDGAR-VASc score of 4 with 4.8% stroke risk. - Started Eliquis 2.5mg BID (dose reduced given pt's advanced age, serum Cr., and weight) - Dc'd Telemetry monitoring d/t stable rate control over the past several days, low threshold to restart if rates sustained >110. - Continue MANAGER STONE metoprolol XL 25 mg daily Right femoral [...] referral to the Fracture Liaison Service with [facility] Endocrinology - Lewis catheter placed due to urinary retention, removed 02/22 - Vit D 2000U/d - PT recs TANI Chronic: HTN - Cont MANAGER STONE metoprolol XL 25 mg daily - Holding MANAGER STONE amlodipine 10 mg daily GERD - MANAGER STONE pantoprazole 40/d Constipation - Miralax BID, senna [...] medical complexity Plan: DVT/VTE Chemoprophylaxis: Inpatient plan: MANAGER STONE Eliquis Discharge plan: Same Wound Care: Inpatient [...] and to the Fracture Liaison Service at [facility] endocrinology placed Pain management: Inpatient plan: Multimodal Discharge plan: Multimodal Antibiotics and other medications: Inpatient plan: Perioperative Ancef complete Discharge plan: None Diet: DIET REGULAR PT/OT: TANI Dispo: Pending TANI acceptance Orthopedics will continue to follow peripherally Russell Rodriguez MD 02/23/24 20:17 Orthopaedic Surgery, PGY-2 Pager [phone] Cosigned by Fred Fernández MD at 02/24/2024 [...] decreased Response: Mild response, increase subjective per HOME CARE ATTENDANT Pulse: <100 Resp Rate: 18-25 SOB: With [...] go to rehab closer to family in [place]. Objective Vital Signs Temp: [35.8 ??C (96.5 [...] effusions and bibasilar opacities compatible with atelectasis. [id number] XR HIP RIGHT 1 VIEW Result Date: 02/17/2024 FINDINGS/IMPRESSION: 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 No periprosthetic fracture is seen. No acute left hip abnormality is seen. Atherosclerotic calcifications arepresent bilaterally. [id number] XR HIP LEFT 1 VIEW Result Date: 02/17/2024 FINDINGS/IMPRESSION: 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 No periprosthetic fracture is seen. No acute left hip abnormality is seen. Atherosclerotic calcifications arepresent bilaterally. [id number] CT ANGIO CHEST PE PROTOCOL Result Date: [...] above interpretation and agree with the findings. [id number] XR HIP RIGHT 1 VIEW Result Date: 02/16/2024 Findings/impression: Redemonstrated right femoral neck fracture, not significantly changed. No left-sided hip fracture or dislocation. Mild degenerative changes of the left hip. The soft tissues are unremarkable. [id number] XR HIP LEFT 2-3 VIEWS OPTIONAL PELVIS Result Date: 02/16/2024 Findings/impression: Redemonstrated right femoral neck fracture, not significantly changed. No left-sided hip fracture or dislocation. Mild degenerative changes of the left hip. The soft tissues are unremarkable. [id number] XR CHEST PORTABLE 1 VIEW Result Date: 02/16/2024 Small bilateral pleural effusions. Slight interval increase in patchy airspace opacities at both lung bases and in the suprahilar right lung. [id number] Assessment/Plan Assessment Noe Sue is a 83 y.o. male with a PMHx of COPD (3-5L home oxygen), possible AF (he denies ever being told he has AF), GERD, and HTN, who was transferred from [facility] to [facility] and then [facility] for surgical management of a right femoral [...] Symbicort q12h (LABA/ICS), spiriva daily to replace MANAGER STONE LAMA - Prednisone to 40 mg daily since 02/18 (Pt has received 2x 40mg 02/14-02/15 and 2x 30 mg prednisone 02/17 -02/18), duration tbd by respiratory status. - Hold MANAGER STONE Anoro Ellipta (LAMA/LABA) - Wean off of supplemental O2 as tolerated - Maintain SpO2 88-92% - RT following, airway clearance - On discharge would need good pulmonology FU, could benefit from pulmonary rehab. Severe pulmonary HTN with RV failure Suspect group 3 pulm HTN (2/2 lung disease) S/p lasix 160 mg and 5 mg metolazone 02/16/24 at [facility] prior to transfer. Multiple doses of IV lasix given, titrated to kidney function and respiratory function. - Oral diuresis with lasix 20mg, will consider as longer term maintenance dosing. CHRISTIANO resolved. Patient's creatinine on admission 2.54, baseline Cr about 1 per note from [facility]. - Daily BMP - Strict I/Os Urinary Retention Denies retention at home but has thus far failed void trial 02/18 - remove lewis and repeat void trial today 02/22 Afib with RVR Patient denies h/o AF or taking eliquis, but report from [facility] said his last dose of eliquis was 02/13). EDGAR-VASc score of 4 with 4.8% stroke risk. - Started Eliquis 2.5mg BID (dose reduced given pt's advanced age, serum Cr., and weight) - Dc'd Telemetry monitoring d/t stable rate control over the past several days, low threshold to restart if rates sustained >110. - Continue MANAGER STONE metoprolol XL 25 mg daily Right femoral [...] referral to the Fracture Liaison Service with [facility] Endocrinology - Lewis catheter placed due to urinary retention - Vit D 2000U/d - PT recs TANI Chronic: HTN - Cont MANAGER STONE metoprolol XL 25 mg daily - Holding MANAGER STONE amlodipine 10 mg daily GERD - MANAGER STONE pantoprazole 40/d Constipation - Miralax BID, senna 2 tabs at night VTE Prophylaxis: apixaban 2.5mg BID Code status: Limitation of Treatment DNR Do not intubate (DNI) Disposition: awaiting TANI May Mauricio MD Internal Medicine, PGY-2 Epic chat Pager [phone] Attending Attestation I interviewed and examined the patient. I have personally reviewed interval events, laboratory data, and imaging. I discussed the case with the inpatient resident team. I agree with findings and planof care as documented by the resident (or have edited in blue). Cuco Vazquez MD Internal Medicine Hospitalist 02/23/24 21:26 * Julianne Pascal - 02/23/[address] [facility] Department of Case Management and Social Work Case Management Progress Note Patient Name Level of Care and Accommodation Code: Patient Class: Medically Ready: Y/N Noe Sue Acute General Inpatient y Primary Dx: Decisional Capacity: Y/N Primary Support/ CareGiver: Advance Directive Acute hypoxic respiratory failure ([facility]) taylor Godinez Advance Directives (For Healthcare) [...] been deemed appropriate for placement at a retirement facility (SNF). Listed patient at the following facilities: [place] [facility] Explained to patient and/or family that patients [...] stability - will look again on Monday [facility] - may have bed available on Monday - E-Signature TAMMY Navarrete Information Systems Security Manager II Epic chat preferred. 02/23/2024 13:08 02/23/24 [...] and to the Fracture Liaison Service at [facility] endocrinology placed Pain management: Inpatient plan: Multimodal Discharge plan: Multimodal Antibiotics and other medications: Inpatient plan: Perioperative Ancef complete Discharge plan: None Diet: DIET REGULAR PT/OT: TANI Dispo: Likely DC today Russell Rodriguez MD 02/22/24 21:31 Orthopaedic Surgery, PGY-2 Pager [phone] Cosigned by Nicholas Poole MD MPH at [...] decreased Response: Mild response, increase subjective per HOME CARE ATTENDANT Pulse: <100 Resp Rate: 18-25 SOB: With [...] Gunn, PT - 02/22/[address] [facility] Rehabilitation Therapy Acute Therapy [facility] Physical Therapy Encounter Note Date of Service: 02/22/2024 Precautions: posterior R THR precautions, WBAT RLE SUBJECTIVE: Subjective Statements Comments: patient quiet throughout session. Increased work of breathing and placed on ventimask during session. Pateint agreeable to PT assisting with back to bed. OBJECTIVE: Interventions Completed Today: Physical Therapy Today At: Time: 2512-8252 Total Treatment Time (minutes): 25 Present for [...] During therapy session, After therapy session By: [id number] communication Additional communication about Patient Status and [...] effusions and bibasilar opacities compatible with atelectasis. [id number] XR HIP RIGHT 1 VIEW Result Date: 02/17/2024 FINDINGS/IMPRESSION: 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 No periprosthetic fracture is seen. No acute left hip abnormality is seen. Atherosclerotic calcifications arepresent bilaterally. [id number] XR HIP LEFT 1 VIEW Result Date: 02/17/2024 FINDINGS/IMPRESSION: 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 No periprosthetic fracture is seen. No acute left hip abnormality is seen. Atherosclerotic calcifications arepresent bilaterally. [id number] CT ANGIO CHEST PE PROTOCOL Result Date: [...] above interpretation and agree with the findings. [id number] XR HIP RIGHT 1 VIEW Result Date: 02/16/2024 Findings/impression: Redemonstrated right femoral neck fracture, not significantly changed. No left-sided hip fracture or dislocation. Mild degenerative changes of the left hip. The soft tissues are unremarkable. [id number] XR HIP LEFT 2-3 VIEWS OPTIONAL PELVIS Result Date: 02/16/2024 Findings/impression: Redemonstrated right femoral neck fracture, not significantly changed. No left-sided hip fracture or dislocation. Mild degenerative changes of the left hip. The soft tissues are unremarkable. [id number] XR CHEST PORTABLE 1 VIEW Result Date: 02/16/2024 Small bilateral pleural effusions. Slight interval increase in patchy airspace opacities at both lung bases and in the suprahilar right lung. [id number] Assessment/Plan Assessment Noe Sue is a 83 y.o. male with a PMHx of COPD (3-5L home oxygen), possible AF (he denies ever being told he has AF), GERD, and HTN, who was transferred from [facility] to [facility] and then [facility] for surgical management of a right femoral [...] Symbicort q12h (LABA/ICS), spiriva daily to replace MANAGER STONE LAMA - Prednisone to 40 mg daily since 02/18 (Pt has received 2x 40mg 02/14-02/15 and 2x 30 mg prednisone 02/17 -02/18), duration tbd by respiratory status. - Hold MANAGER STONE Anoro Ellipta (LAMA/LABA) - Wean off of supplemental O2 as tolerated - Maintain SpO2 88-92% - RT following, airway clearance - On discharge would need good pulmonology FU, could benefit from pulmonary rehab. Severe pulmonary HTN with RV failure Suspect group 3 pulm HTN (2/2 lung disease) S/p lasix 160 mg and 5 mg metolazone 02/16/24 at [facility] prior to transfer. Multiple doses of IV lasix given, titrated to kidney function and respiratory function. - Oral diuresis with lasix 20mg, will consider as longer term maintenance dosing. CHRISTIANO Improving. Patient's creatinine on admission 2.54, baseline Cr about 1 per note from [facility]. - Daily BMP - Strict I/Os Afib with RVR Patient denies h/o AF or taking eliquis, but report from [facility] said his last dose of eliquis was 02/13). EDGAR-VASc score of 4 with 4.8% stroke risk. - Started Eliquis 2.5mg BID (dose reduced given pt's advanced age, serum Cr., and weight) - Dc'd Telemetry monitoring d/t stable rate control over the past several days, low threshold to restart if rates sustained >110. - Continue MANAGER STONE metoprolol XL 25 mg daily Right femoral [...] referral to the Fracture Liaison Service with [facility] Endocrinology - Lewis catheter placed due to urinary retention - Vit D 2000U/d Chronic: HTN - Cont MANAGER STONE metoprolol XL 25 mg daily - Holding MANAGER STONE amlodipine 10 mg daily GERD - MANAGER STONE pantoprazole 40/d Constipation - Miralax BID, senna [...] op and to the Fracture Liaison Serviceat [facility] endocrinology placed today. The above was discussed with the primary team. Farnaz Sanchez NP Ortho Trauma Pager [phone] * Russell Rodriguez MD - 02/22/2024 4422 EST Orthopaedic Surgery Progress Note Admit Date: [...] MD 02/21/24 18:56 Orthopaedic Surgery, PGY-2 Pager [phone] Cosigned by Jareth Jim MD at 02/22/2024 [...] a small amount of thick, zheng/white sputum. [id number] 90's when patient is resting with dips [...] effusions and bibasilar opacities compatible with atelectasis. [id number] XR HIP RIGHT 1 VIEW Result Date: 02/17/2024 FINDINGS/IMPRESSION: 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 No periprosthetic fracture is seen. No acute left hip abnormality is seen. Atherosclerotic calcifications arepresent bilaterally. [id number] XR HIP LEFT 1 VIEW Result Date: 02/17/2024 FINDINGS/IMPRESSION: 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 No periprosthetic fracture is seen. No acute left hip abnormality is seen. Atherosclerotic calcifications arepresent bilaterally. [id number] CT ANGIO CHEST PE PROTOCOL Result Date: [...] above interpretation and agree with the findings. [id number] XR HIP RIGHT 1 VIEW Result Date: 02/16/2024 Findings/impression: Redemonstrated right femoral neck fracture, not significantly changed. No left-sided hip fracture or dislocation. Mild degenerative changes of the left hip. The soft tissues are unremarkable. [id number] XR HIP LEFT 2-3 VIEWS OPTIONAL PELVIS Result Date: 02/16/2024 Findings/impression: Redemonstrated right femoral neck fracture, not significantly changed. No left-sided hip fracture or dislocation. Mild degenerative changes of the left hip. The soft tissues are unremarkable. [id number] XR CHEST PORTABLE 1 VIEW Result Date: 02/16/2024 Small bilateral pleural effusions. Slight interval increase in patchy airspace opacities at both lung bases and in the suprahilar right lung. [id number] Assessment/Plan Assessment Noe Sue is a 83 y.o. male with a PMHx of COPD (3-5L home oxygen), possible AF (he denies ever being told he has AF), GERD, and HTN, who was transferred from [facility] to [facility] and then [facility] for surgical management of a right femoral [...] Symbicort q12h (LABA/ICS), spiriva daily to replace MANAGER STONE LAMA - Prednisone to 40 mg daily since 02/18 (Pt has received 2x 40mg 02/14-02/15 and 2x 30 mg prednisone 02/17 -02/18), duration tbd by respiratory status. - Hold MANAGER STONE Anoro Ellipta (LAMA/LABA) - Wean off of supplemental O2 as tolerated - Maintain SpO2 88-92% - RT following, airway clearance - On discharge would need good pulmonology FU, could benefit from pulmonary rehab. Severe pulmonary HTN with RV failure Suspect group 3 pulm HTN (2/2 lung disease) S/p lasix 160 mg and 5 mg metolazone 02/16/24 at [facility] prior to transfer and 100 mg at [facility] with last dose 40 mg yesterday. Patient continue to have a net negative output, and although improved, continue to have respiratory stress, will reevaluate need for additional diuresis based on lab results - Repeat diuresis with Furosemide 40mg IV 02/20 CHRISTIANO Slight increase in Cr after downtrending. Patient's creatinine on admission 2.54, baseline Cr about 1 per note from [facility]. Hard to determine if worsening of CHRISTIANO is driven by hypo- or hypervolemia.Evaluating decision of diuresis daily based on creatinine. - Daily BMP - Strict I/Os Afib with RVR (Patient denies h/o AF or taking eliquis, but report from [facility] said his last dose of eliquis was 02/13). EDGAR-VASc score of 4 with 4.8% stroke risk. - Started Eliquis 2.5mg BID (dose reduced given pt's advanced age, serum Cr., and weight) - Ortho agrees with plan - Telemetry monitoring (multiple Afib episodes) - Continue MANAGER STONE metoprolol XL 25 mg daily Right femoral [...] Vit D 1000U/d Chronic: HTN - Cont MANAGER STONE metoprolol XL 25 mg daily - Holding MANAGER STONE amlodipine 10 mg daily GERD - MANAGER STONE pantoprazole 40/d Constipation - Miralax BID, senna [...] MD 02/20/24 12:42 Orthopaedic Surgery, PGY-2 Pager [phone] Cosigned by Nigel Brock MD at 02/21/2024 [...] family, condo, apartment, intermediate, single room occupancy, [facility] funded hotel room, group usp) - [facility] Who does the patient live [...] No Final Discharge Destination: home with CULTURAL, JEW and/or LANGUAGE factors affecting health care/discharge planning: [...] Standard COMMUNITY RESOURCES/SUPPORTS: Primary Care Provider: SUZIE VILLAGOMZE PCP Verified: Specialists: Type of Home Health Services: Home PT/OT, Nurse visit DME Provider: Darrel Pharmacy: [id number] - [place], [place] - [address] AT [facility] [address] [place] [id number] Home Health: [facility] Other: POST HOSPITAL TRANSITION PLAN: Noe Sue is a 83 y.o. male with a PMHx of COPD (3-5L home oxygen), possible AF (he denies ever being told he has AF), GERD, and HTN, who was transferred from [facility] and then [facility] for surgical management of a right femoral neck fracture in the setting of acute on chronic respiratory failure and severe PaHTN. Patient is stable, still requiring significant supplemental oxygen requiring hospitalization. CM met with patient in room to introduce self and CM role. Patient appeared A&Ox3, and noted significant discomfort, KOI. Patient reported that he lives with his partener, Gretchen, who is able toprovide support as needed. He stated that he uses a walker and sometimes a wheelchair at home, and has all the stuff he needs for DME. Patient reported that he was receiving SN and PT services from [facility] prior to hospitalization. CM confirmed with agency that they will need resumption of services noted in d/c summary, and notification of his discharge date when determined. Patient's home 02 supplier is [facility]. His family will be able to provide transportation at discharge. Pt enrolled in M2B. CM will continue to follow and coordinate a safe discharge. TAMMY Navarrete Information Systems Security Manager II Epic chat preferred. 02/20/2024 12:04 JULIANNE PASCAL 02/20/2024 11:55 * Laine Coe, PT - 02/20/[address] [facility] Rehabilitation Therapy Acute Therapy [facility] Physical Therapy Initial Evaluation Note Date of [...] 02/16/2024 secondary to Acute hypoxic respiratory failure ([facility]). The patient lives at [address] [place] [address] History of Present Illness / Injury Current Illness / Injury: per MD:Noe Sue is a 83 y.o. male with a PMHx of COPD (3-5L home oxygen), possible AF (he denies ever being told he has AF), GERD, and HTN, who was transferred from [facility] to [facility] and then [facility] for surgical management of a right femoral [...] Nurse When: Prior to therapy session By: [id number] communication Additional communication about Patient Status and [...] by the physical therapist and/or physical therapist actuarial assistant when medically appropriate Frequency: 1-3 times/week [...] effusions and bibasilar opacities compatible with atelectasis. [id number] XR HIP RIGHT 1 VIEW Result Date: 02/17/2024 FINDINGS/IMPRESSION: 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 No periprosthetic fracture is seen. No acute left hip abnormality is seen. Atherosclerotic calcifications arepresent bilaterally. [id number] XR HIP LEFT 1 VIEW Result Date: 02/17/2024 FINDINGS/IMPRESSION: 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 No periprosthetic fracture is seen. No acute left hip abnormality is seen. Atherosclerotic calcifications arepresent bilaterally. [id number] CT ANGIO CHEST PE PROTOCOL Result Date: [...] above interpretation and agree with the findings. [id number] XR HIP RIGHT 1 VIEW Result Date: 02/16/2024 Findings/impression: Redemonstrated right femoral neck fracture, not significantly changed. No left-sided hip fracture or dislocation. Mild degenerative changes of the left hip. The soft tissues are unremarkable. [id number] XR HIP LEFT 2-3 VIEWS OPTIONAL PELVIS Result Date: 02/16/2024 Findings/impression: Redemonstrated right femoral neck fracture, not significantly changed. No left-sided hip fracture or dislocation. Mild degenerative changes of the left hip. The soft tissues are unremarkable. [id number] XR CHEST PORTABLE 1 VIEW Result Date: 02/16/2024 Small bilateral pleural effusions. Slight interval increase in patchy airspace opacities at both lung bases and in the suprahilar right lung. [id number] Assessment/Plan Assessment Noe Sue is a 83 y.o. male with a PMHx of COPD (3-5L home oxygen), possible AF (he denies ever being told he has AF), GERD, and HTN, who was transferred from [facility] to [facility] and then [facility] for surgical management of a right femoral [...] Symbicort q12h (LABA/ICS), spiriva daily to replace MANAGER STONE LAMA - Hold MANAGER STONE Anoro Ellipta (LAMA/LABA) - Wean off of [...] mg and 5 mg metolazone 02/16/24 at [facility] prior to transfer and 20 mg at [facility] 02/17. Patient have a net negative output and continue to have respiratory stress, thus might benefit from additional diuresis. - Repeat 40mg IV lasix Afib with RVR (Patient denies h/o AF or taking eliquis, but report from [facility] said his last dose of eliquis was 02/13). EDGAR-VASc score of 4 with 4.8% stroke risk. - Started Eliquis 2.5mg BID (dose reduced given pt's advanced age, serum Cr., and weight) - Ortho agrees with plan - Telemetry monitoring - Continue MANAGER STONE metoprolol XL 25 mg daily CHRISTIANO improving, Patient's creatinine on admission 2.54 but has been trending down, baseline Cr about1 per note from [facility] - Daily BMP - Strict I/Os - [...] Vit D 1000U/d Chronic: HTN - Cont MANAGER STONE metoprolol XL 25 mg daily - Holding MANAGER STONE amlodipine 10 mg daily GERD - MANAGER STONE pantoprazole 40/d Constipation - Miralax BID, senna [...] MD 02/19/24 17:42 Orthopaedic Surgery, PGY-2 Pager [phone] Cosigned by Jareth Jim MD at 02/20/2024 [...] 13:10 * Cuco Vazquez MD - 02/19/2024 0749 EST Medicine Progress Note Service Date: 02/19/2024 [...] Date 02/19/24 0700 - 02/20/24 0659 Shift [id number] 2381-0568 4725-1242 24 Hour Total INTAKE P.O. 360 360 [...] effusions and bibasilar opacities compatible with atelectasis. [id number] XR HIP RIGHT 1 VIEW Result Date: 02/17/2024 FINDINGS/IMPRESSION: 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 No periprosthetic fracture is seen. No acute left hip abnormality is seen. Atherosclerotic calcifications arepresent bilaterally. [id number] XR HIP LEFT 1 VIEW Result Date: 02/17/2024 FINDINGS/IMPRESSION: 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 No periprosthetic fracture is seen. No acute left hip abnormality is seen. Atherosclerotic calcifications arepresent bilaterally. [id number] CT ANGIO CHEST PE PROTOCOL Result Date: [...] above interpretation and agree with the findings. [id number] XR HIP RIGHT 1 VIEW Result Date: 02/16/2024 Findings/impression: Redemonstrated right femoral neck fracture, not significantly changed. No left-sided hip fracture or dislocation. Mild degenerative changes of the left hip. The soft tissues are unremarkable. [id number] XR HIP LEFT 2-3 VIEWS OPTIONAL PELVIS Result Date: 02/16/2024 Findings/impression: Redemonstrated right femoral neck fracture, not significantly changed. No left-sided hip fracture or dislocation. Mild degenerative changes of the left hip. The soft tissues are unremarkable. [id number] XR CHEST PORTABLE 1 VIEW Result Date: 02/16/2024 Small bilateral pleural effusions. Slight interval increase in patchy airspace opacities at both lung bases and in the suprahilar right lung. [id number] Assessment/Plan Assessment Noe Sue is a 83 y.o. male with a PMHx of COPD (3-5L home oxygen), possible AF (he denies ever being told he has AF), GERD, and HTN, who was transferred from [facility] to [facility] and then [facility] for surgical management of a right femoral [...] q12h (LABA/ICS), add spiriva daily to replace MANAGER STONE LAMA - Hold MANAGER STONE Anoro Ellipta (LAMA/LABA) - Wean off of [...] mg and 5 mg metolazone 02/16/24 at [facility] prior to transfer and 20 mg at [facility] 02/17. Patient have a net negative output and continue to have respiratory stress, thus might benefit from additional diuresis. - Furosemide 40 mg ordered nowx1 02/18 Afib with RVR (Patient denies h/o AF or taking eliquis, but report from [facility] said his last dose of eliquis was 02/13). EDGAR-VASc score of 4 with 4.8% stroke risk. - Start Eliquis 2.5mg BID (dose reduced given pt's advanced age, serum Cr., and weight) - Ortho agrees with plan - Telemetry monitoring - Continue MANAGER STONE metoprolol XL 25 mg daily CHRISTIANO improving, Patient's creatinine on admission 2.54 but has been trending down, baseline Cr about1 per note from [facility] - Daily BMP - Strict I/Os Right [...] level (cont supplement) Chronic: HTN - Cont MANAGER STONE metoprolol XL 25 mg daily - Holding MANAGER STONE amlodipine 10 mg daily GERD - MANAGER STONE pantoprazole Constipation - Stool softer VTE Prophylaxis: apixaban 2.5mg BID Code status: Limitation of Treatment DNR Do not intubate (DNI) Bessy Dewitt MS3 I reviewed with the medical student the history, exam, and medical decision making documented. I have edited the medical student note as appropriate. Abhi Vega, Neurology PGY-1 Epic Chat*, PAGE [phone] 02/19/24 11:55 Attending Attestation The resident was [...] and o2 was decreased to 50% RT ACROLA 02/19/24 * Wally Pettit MD - 02/19/2024 [...] PGY3 Department of Orthopedics 02/19/24 4:03 Pager [phone] Cosigned by Jareth Jim MD at 02/19/2024 [...] Add LDA for any identified wounds Add [place] image for any suspected PI or non surgical wounds Order wound consult if suspected PI identified If [place] is < or = to 16, initiate Pressure Injury Prevention Bundle ([id number]). 02/18/2024 14:56 * Sveen Escalante, RT - 02/18/2024 1333 EST Images from the original note were not included. Respiratory Progress Note Indications for Respiratory therapy: COPD increased O2 requirement Data Vitals: Heart Rate: 85 BPM, Resp: 18, SpO2: 92 % FIO2/O2 Device: 6 lpm NC, , O2 Device: Nasal cannula, RT Orders: 02/18/24 1700 Airway Clearance Therapy [[id number]] 4 TIMES DAILY Discontinue Reschedule 02/18/24 1333 [...] aspirin, who presents to transfer initially from [facility] after a fall and whom orthopedics [...] abnormality is seen. Atherosclerotic calcifications arepresent bilaterally. [id number] XR HIP LEFT 1 VIEW Result Date: 02/17/2024 FINDINGS/IMPRESSION: 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 No periprosthetic fracture is seen. No acute left hip abnormality is seen. Atherosclerotic calcifications arepresent bilaterally. [id number] CT ANGIO CHEST PE PROTOCOL Result Date: [...] above interpretation and agree with the findings. [id number] XR HIP RIGHT 1 VIEW Result Date: 02/16/2024 Findings/impression: Redemonstrated right femoral neck fracture, not significantly changed. No left-sided hip fracture or dislocation. Mild degenerative changes of the left hip. The soft tissues are unremarkable. [id number] XR HIP LEFT 2-3 VIEWS OPTIONAL PELVIS Result Date: 02/16/2024 Findings/impression: Redemonstrated right femoral neck fracture, not significantly changed. No left-sided hip fracture or dislocation. Mild degenerative changes of the left hip. The soft tissues are unremarkable. [id number] XR CHEST PORTABLE 1 VIEW Result Date: 02/16/2024 Small bilateral pleural effusions. Slight interval increase in patchy airspace opacities at both lung bases and in the suprahilar right lung. [id number] Medications: Scheduled: acetaminophen, 1,000 mg, Q6H aspirin [...] GERD, and hypertension, who was transferred from [facility] to [facility] and then [facility] for preoperative optimization for surgicalmanagement of a right femoral neck fracture. Hospital course at [facility] complicated by acute on chronic hypoxic hypercapenic respiratory failure 2/2 COPD exacerbation vs. community acquired pneumonia. Found to have pulmonary HTN and severe RV dilation with evidence of volume overload, s/p IV diuresis. Started on HFNC at [facility] and then transferredto [facility]U for monitoring prior to going to [...] O2 as tolerated -Maintain SpO2 88-92% -Replace MANAGER STONE Anoro Ellipta with Symbicort -Prednisone 40mg daily, decrease to 30mg daily (02/14-02/18) -Duoneb q6h -Ceftriaxone + doxycycline (02/14 - 02/18) -CTA PE 02/15: No evidence of PE, patchy opacity in peripheral RML, lingula, posterior segment or RUL -Bilateral pleural effusions, atherosclerosis of thoracic aorta and coronary artery/aortic valve ID Possible COPDe vs community acquired pneumonia Was started on CAP coverage at [facility]. Legionella, strep pneumo and MRSA negative. Procal [...] mg and 5 mg metolazone 02/16/24 at [facility] prior to transfer - No additional diuresis 02/16 or 02/17 CV risk assessment Surgery is urgent with hip surgery classified as intermediate risk - Orta RCRI: 2-3 points depending on whether you define Tn elevation as a type II OR or myocardial injury (additional points for heart failure, Cr >2 mg/dL). My opinion is that this is simply myocardial injury in the context of RV strain and heart failure but this is impossible to prove. - Overall this indicates elevated risk (/OR/arrest of ~10-15% within a month of surgery) [...] he is taking eliquis, but report from [facility] said his last dose of eliquis was 02/13.S/p dilt drip at [facility]. -Telemetry monitoring -Trend lytes and replete (Mag >2) -Rate control goal < 110 -MANAGER STONE ASA 81mg daily -Discontinue amiodarone gtt -Resume MANAGER STONE metop succinate 25mg daily #Myocardial injury in the context of RV strain Suspect 2/2 demand ischemia, trop trending down. -Telemetry monitoring #HTN -Resume MANAGER STONE metoprolol succinate 25mg daily -Hold MANAGER STONE amlodipine 10mg daily GI #GERD -MANAGER STONE pantoprazole Hemeonc #Leukocytosis, improving Likely iso possible [...] REGULAR VTE Prophylaxis: Heparin SC GI Prophylaxis: MANAGER STONE PPI Code status: Limitation of Treatment DNR Do not intubate (DNI) Disposition/discharge planning: Plan to transfer to the floor later this afternoon Pete Lee DO PGY-2 Internal Medicine 02/18/2024 10:02 Cosigned by Ritesh Cardenas MD at 02/18/2024 13:37 EST Associated attestation - Ritesh Cardenas MD - 02/18/2024 9307 EST Attestation: I performed or was present [...] above interpretation and agree with the findings. [id number] XR HIP RIGHT 1 VIEW Result Date: 02/16/2024 Findings/impression: Redemonstrated right femoral neck fracture, not significantly changed. No left-sided hip fracture or dislocation. Mild degenerative changes of the left hip. The soft tissues are unremarkable. [id number] XR HIP LEFT 2-3 VIEWS OPTIONAL PELVIS Result Date: 02/16/2024 Findings/impression: Redemonstrated right femoral neck fracture, not significantly changed. No left-sided hip fracture or dislocation. Mild degenerative changes of the left hip. The soft tissues are unremarkable. [id number] XR CHEST PORTABLE 1 VIEW Result Date: 02/16/2024 Small bilateral pleural effusions. Slight interval increase in patchy airspace opacities at both lung bases and in the suprahilar right lung. [id number] Medications: Scheduled: [Transfer Hold] acetaminophen, 1,000 mg, [...] GERD, and hypertension, who was transferred from [facility] to [facility] and then [facility] for preoperative optimization for surgicalmanagement of a right femoral neck fracture. Hospital course at [facility] complicated by acute on chronic hypoxic hypercapenic respiratory failure 2/2 COPD exacerbation vs. community acquired pneumonia. Found to have pulmonary HTN and severe RV dilation with evidence of volume overload and diuresed. Started on HFNC at [facility] and then transferred to [facility] for monitoring overnight prior to going [...] O2 as tolerated -Maintain SpO2 88-92% -Replace MANAGER STONE Anoro Ellipta with Symbicort -Prednisone 40mg daily x5 days (02/14-02/18) -S/p lasix 160 mg and 5 mg metolazone at [facility] prior to transfer -Duoneb q6h -Ceftriaxone + doxycycline (02/14 - ) -CTA PE 02/15: No evidence of PE, patchy opacity in peripheral RML, lingula, posterior segment or RUL -Bilateral pleural effusions, atherosclerosis of thoracic aorta and coronary artery/aortic valve ID Possible COPDe vs community acquired pneumonia Was started on CAP coverage at [facility]. Legionella, strep pneumo and MRSA negative. Procal [...] mg and 5 mg metolazone 02/16/24 at [facility] prior to transfer - Will hold off [...] define Tn elevation as a type II OR or myocardial injury (additional points for heart failure, Cr >2 mg/dL). My opinion is that this is simply myocardial injury in the context of RV strain and heart failure but this is impossible to prove. - Overall this indicates elevated risk (/OR/arrest of ~10-15% within a month of surgery) [...] he is taking eliquis, but report from [facility] said his last dose of eliquis was 02/13.S/p dilt drip at [facility]. -Telemetry monitoring -Trend lytes and replete (Mag >2) -Rate control goal < 110 -MANAGER STONE ASA 81mg daily -Amiodarone gtt continue at 0.5 -UFH level and coags - Will discuss with ortho after OR regarding DVT ppx vs full dose AC #Myocardial injury in the context of RV strain Suspect 2/2 demand ischemia, trop trending down. -Telemetry monitoring #HTN -Hold MANAGER STONE metoprolol succinate 25mg daily -Hold MANAGER STONE amlodipine 10mg daily GI #GERD -MANAGER STONE pantoprazole Hemeonc #Leukocytosis, improving Likely iso possible [...] Will start after OR today GI Prophylaxis: MANAGER STONE PPI Code status: Limitation of Treatment DNR Do not intubate (DNI) Disposition/discharge planning: Pending operative/clinical course Admission status Inpatient admission due to anticipated duration of hospitalization is two midnights or greater due to Acute hypoxic respiratory failure. Hema Cazares MD Internal Medicine, PGY-2 Epic Chat (prefer) Pgr#[phone] Attending attestation statement: I saw and examined [...] 1. Closed right hip fracture, initial encounter ([facility]) Critical Care time was provided in [...] Ale Bruce - 02/17/2024 1137 EST [facility] Spiritual Care Note Re: Noe Sue : 1940, AGE: 83 y.o. ROOM: [place] [address] BACKGROUND Referral visit. Patient appeared having hard time to hear. Patient said he was okay and no need to talk a bulk driver or a lay out technician at that time. Patient had a visitor, his granddaughter. INTERVENTIONS Presence Introducing spiritual care CARE PLAN Continued bulk driver visit if needed RECOMMENDATIONS: None Matheus Napier [facility] Water Restoration Technician Jareth [phone] Thank you for the opportunity [...] 02/17/24 * Daniel Varghese MD - 02/17/2024 0556 EST Orthopaedic Progress Note Pt Name: Noe [...] aspirin, who presents to transfer initially from [facility] after a fall and whom orthopedics was consulted for a right femoral neck fracture. Plan for operative management today. P: OR today for open treatment of right hip fracture WB -bedrest Lewis Abx - 2g Ancef editor publications to the OR DVT prophylaxis -asked to [...] Add LDA for any identified wounds Add [place] image for any suspected PI or non surgical wounds Order wound consult if suspected PI identified If [place] is < or = to 16, initiate Pressure Injury Prevention Bundle ([id number]). 02/16/2024 18:43 * Morenita Yee, RT - [...] decreased Response: Mild response, increase subjective per HOME CARE ATTENDANT Pulse: >100 Resp Rate: 18-25 SOB: At [...] home as needed; Do not see on MANAGER STONE meds. Duoneb given per order. RT RANDI 02/16/24 documented in this encounter H&P Notes * Ritesh Cardenas MD - 02/16/2024 5057 EST MICU Admission History & Physical Service Date: 02/16/2024 Admit Date: 02/16/2024 15:41 Primary Care Provider: SUZIE VILLAGOMEZ Chief Complaint: Fall HPI Noe Sue is a 83 y.o. male with a PMHx of HTN, GERD, COPD (on 3-5 L NC baseline) and atrial fibrillation (unclear if on AC), who presented to [facility] s/p fall andwas found to have [...] chest pain, shortness of breath, or cough. [facility] ED labs notable for WBC 22, procal 3, creatinine 3 (baseline ~1), and potassium 6. He was subsequently transferred to [facility] 02/14 for surgical management. On arrival, temp [...] -->0.244. He was confirmed DNR/DNI. Transferred from [facility] to [facility] for preoperative optimization. On arrival to [facility], Noe says that he feels exhausted. Denies [...] bases and in the suprahilar right lung. [id number] TTE 02/16/24: Left Ventricle: Left ventricular systolic [...] GERD, and hypertension, who was transferred from [facility] to [facility] and then [facility] for preoperative optimization for surgicalmanagement of a right femoral neck fracture. Hospital course at [facility] complicated by acute on chronic hypoxic hypercapenic respiratory failure 2/2 COPD exacerbation vs. community acquired pneumonia. Found to have pulmonary HTN and severe RV dilation with evidence of volume overload and diuresed. Started on HFNC at [facility] and then transferred to [facility] for monitoring overnight prior to going [...] O2 as tolerated -Maintain SpO2 88-92% -Replace MANAGER STONE Anoro Ellipta with Symbicort -Prednisone 40mg daily x5 days (02/14-02/18) -S/p lasix 160 mg and 5 mg metolazone early today at [facility] prior to transfer -Duoneb q6h -Ceftriaxone + doxycycline (02/14 - ) -CTA PE Effusions are small and risk>benefit for thoracentesis at this point in time Wean O2 as able ID Possible COPDe vs community acquired pneumonia Was started on CAP coverage at [facility]. Legionella, strep pneumo and MRSA negative. Procal [...] and 5 mg metolazone early today at [facility] prior to transfer -Strict I/Os -Goal net [...] define Tn elevation as a type II OR or myocardialinjury (additional points for heart failure, Cr >2 mg/dL). My opinion is that this is simply myocardial injury in the context of RV strain and heart failure but this is impossible to prove. Overall this indicates elevated risk (/OR/arrest of ~10-15% within a month of surgery) [...] he is taking eliquis, but report from [facility] said his last dose of eliquis was 02/13.S/p dilt drip at [facility]. -Telemetry monitoring -Trend lytes and replete (Mag >2) -Rate control goal < 110 -MANAGER STONE ASA 81mg daily -Amiodarone gtt -UFH level and coags Myocardial injury in the context of RV strain Suspect 2/2 demand ischemia, trop trending down. -Telemetry monitoring HTN -Hold MANAGER STONE metoprolol succinate 25mg daily -Hold MANAGER STONE amlodipine 10mg daily GI GERD -MANAGER STONE pantoprazole Hemeonc Leukocytosis, improving Likely iso possible [...] 1. Closed right hip fracture, initial encounter ([facility]) Critical Care time was provided in [...] home, GERD, hypertension who originally presented to [facility] for hip fracture. Pulmonary Medicine is [...] been diuresed. He does not have a obstetrics specialist at this time, although he lives in the [facility] and is interested in establishing care with a obstetrics specialist there. He is a former smoker, having [...] file Housing Stability: Not At Risk (02/20/2024) [facility] - Inadequate Housing Current Living Situation: [...] home, GERD, hypertension who originally presented to [facility] for hip fracture. Pulmonary Medicine is [...] lung disease. Would recommend referral to a obstetrics specialist out in his [place] area. Would be reasonable to start him onStiolto given the different administration mechanism. Further care can be managed outpatient, is appropriate for Oxymizer at rehab. He should preoxygenated with the Oxymizer for several minutes before he gets up and moves around. When he is finally home, would be reasonable candidate for pulmonary r ehab, however will defer to his outpatient obstetrics specialist that he establishes care to set that [...] Attending Physician Pulmonary Disease-Critical Care Medicine [facility] * Char Martinez MD - 02/16/2024 7256 EST Orthopaedic Surgery Consultation Consultation requested by: Dr. Cardenas for: Right femoral neck fracture HPI: Noe Sue is a 83 y.o. male past medical history significant for COPD with chronic hypoxic respiratory failure (3-5L O2 at baseline), Atrial fibrillation on aspirin, who presents to transfer initially from [facility] for right femoral neck fracture after a fall where he had lab abnormalities with hyperkalemia and leukocytosis with an abnormal procalcitonin, and anesthesia was uncomfortable doing surgery due to the patient's oxygen requirements so he was then transferred to [facility] where his admission was complicated by acute on chronic hypoxic and hypercarbic respiratory failure secondary to COPD exacerbation, and was placed on high flow nasal cannula and had atrial fibrillation with RVR and was placed on a diltiazem infusion and switched to an amio infusion.He had an echo at [facility] that demonstrated severe pulmonary hypertension and he [...] transcervical femoral neck fracture. Assessment: Noe Sue [id number] 1940 Noe Sue is a 83 y.o. male with past medical history significant for COPD with chronic hypoxic respiratory failure (3-5L O2 at baseline), Atrial fibrillation on aspirin, who presents to transfer initially from [facility] for right femoral neck fracture after a fallwhere he had lab abnormalities with hyperkalemia and leukocytosis with an abnormal procalcitonin, and anesthesia was uncomfortable doing surgery due to the patient's oxygen requirements so he was then transferred to [facility] where his admission was complicated by acute on chronic hypoxic and hypercarbic respiratory failure secondary to COPD exacerbation, and was placed on high flow nasal cannula and had atrial fibrillation with RVR and was placed on a diltiazem infusion and switched to an amio infusion. He had an echo at [facility] that demonstrated severe pulmonary hypertension and he [...] MD PGY-2 Orthopaedic Surgery 02/16/2024 19:29 Pager #[phone], or EPIC Chat Cosigned by Augustine Ceja MD at 02/17/2024 10:59 EST Associated attestation - Augustine Ceja MD - 02/17/2024 5812 EST Attestation: I performed or was present [...] days ago. He initially was transferred to [facility] from outside hospital for surgery for his right hip. Unfortunately he developed severe respiratory distress from his COPD and was admitted to the ICU on 02/16/2024. Due to the severity of his illness and not being able to undergo spinal anesthesia, request for transfer was made to [facility] for higher level of care. He was then transferred to the ICU at [facility], evaluated and deemed as optimized as [...] SERVICE DATE: 02/17/24 SURGEON: Augustine Ceja MD CAROUSEL ATTENDANT: DENITA THOMAS MD, Russell Rodriguez MD PREOPERATIVE DIAGNOSIS: Right displaced femoral neck fracture. POSTOPERATIVE DIAGNOSIS: Right displaced femoral neck fracture. PROCEDURE: Right hip cemented unipolar hemiarthroplasty (CPT 49108). ANESTHESIA: Epidural with IV sedation ESTIMATED BLOOD LOSS: 150 mL. FLUIDS: 150 mL crystalloid. URINE OUTPUT: 250 mL. IMPLANTS: [place] size 4 Accolade C 132 stem, 53 [...] fascia was closed with a combination of lbnyxl-av-ezift interrupted #1 vicryl and running #1 PDS [...] 1:45 * Plan of Care - Julissa Gvain RN - 02/27/2024 1428 EST Problem: Daily [...] per MAR. Clustered care to promote rest. D7xzbry done. Safety ensured. Response: Patient able to [...] GERD, and HTN, who was transferred from [facility] to [facility] and then [facility] forsurgical management of a right femoral neck [...] this patient. Please contact us via SecureChat ([facility] Wound Care Team) or reconsult for further [...] lpm, spo2: 95-97%; Call button within reach. MATRIN DAVISON RN 02/20/2024 5:26 * Plan of Care - Rhea Fleming RN - 02/19/2024 0403 EST Problem: Daily Care Plan Goals Goal: Care Plan Documentation Outcome: Ongoing Flowsheets (Taken 02/19/2024 7344) Area of Focus: Respiratory Goal This Shift: [...] Goal: Care Plan Documentation Flowsheets (Taken 02/18/2024 1605) Area of Focus: Respiratory Goal This Shift: [...] abnormality is seen. Atherosclerotic calcifications arepresent bilaterally. [id number] XR HIP LEFT 1 VIEW Result Date: 02/17/2024 FINDINGS/IMPRESSION: 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 No periprosthetic fracture is seen. No acute left hip abnormality is seen. Atherosclerotic calcifications arepresent bilaterally. [id number] CT ANGIO CHEST PE PROTOCOL Result Date: [...] above interpretation and agree with the findings. [id number] XR HIP RIGHT 1 VIEW Result Date: 02/16/2024 Findings/impression: Redemonstrated right femoral neck fracture, not significantly changed. No left-sided hip fracture or dislocation. Mild degenerative changes of the left hip. The soft tissues are unremarkable. [id number] XR HIP LEFT 2-3 VIEWS OPTIONAL PELVIS Result Date: 02/16/2024 Findings/impression: Redemonstrated right femoral neck fracture, not significantly changed. No left-sided hip fracture or dislocation. Mild degenerative changes of the left hip. The soft tissues are unremarkable. [id number] XR CHEST PORTABLE 1 VIEW Result Date: 02/16/2024 Small bilateral pleural effusions. Slight interval increase in patchy airspace opacities at both lung bases and in the suprahilar right lung. [id number] Medications: Scheduled: acetaminophen, 1,000 mg, Q6H aspirin [...] GERD, and HTN, who was transferred to [facility] for management of a right femoral neck [...] SpO2 88-92% -Cont Symbicort in place of MANAGER STONE Anoro Ellipta -Prednisone for 2 more days (then reassess) -Duoneb q6h -airway clearance -Completes 5 day courses of Ceftriaxone + doxycycline today -Repeat chest CT in 1-3 months to reevaluate 1.1 cm spiculated lung nodule in the lingula Severe pulmonary HTN with RV failure (S/p lasix 160 mg and 5 mg metolazone 02/16/24 at [facility] prior [facility]) - No additional diuresis Afib with RVR (Patient denies h/o AF or taking eliquis, but report from [facility] said his last dose of eliquis was 02/13) -Telemetry monitoring -Cont MANAGER STONE metoprolol XL 25 mg daily -need to call PCP Monday and investigate question of AF and AC HTN -cont MANAGER STONE metoprolol XL 25 mg daily -Holding MANAGER STONE amlodipine 10 mg daily GI (GERD and constipation) -MANAGER STONE pantoprazole -scheduled bowel Rx CHRISTIANO (improving, baseline Cr about 1 per note from [facility]) -Daily BMP -Strict I/Os Right femoral neck [...] Care - Trisha Tran RN - 02/17/2024 6847 EST Images from the original note were [...] pt to hospital closer to home (Prefers [facility]) Response: HR and BP stable, Occasional desat. [...] might see on the residents EOL process SHEEP BONER APPROACHES: 1. Report and signs/symptoms of pain [...] 132 degree Stem, Size 53mm +0 Unitrax [place] Chrome Head, Size 11mm Centralizer, Medium Ontiveros Plug Implant Name Type Inv. Item Serial No. Manufacturing Engineer Chief Lot No. LRB No. Used Action RESTRICTOR CEMENT ONTIVEROS 25MM DISTAL FEM HIP RECON SURGERY ST - [id number] Total Joint Implant RESTRICTOR CEMENT ONTIVEROS 25MM DISTAL FEM HIP RECON SURGERY ST [id number] [employer] [id number] Right 1Implanted HIP FEMORAL STEM CMNTD 132DEG STD OFFST SZ 4 [id number] ACCOLADE C [id number] - [id number] Total Joint Implant HIP FEMORAL STEM CMNTD 132DEG STD OFFST SZ 4 [id number] ACCOLADE C [id number] [employer] [id number] Right 1 Implanted HIP SPACER STEM DISTAL CEMENTED 11MM ACCOLADE [id number] - [id number] Total Joint Implant HIP SPACER STEM DISTAL CEMENTED 11MM ACCOLADE [id number] [employer] [id number] Right 1 Implanted CEMENT BONE HIGH VISCOSITY TOBRAMYCIN RADIOPAQUE SINGLE DOSE YANES 40GM SIMPLEX [id number] - [id number] Ortho Implant CEMENT BONE HIGH VISCOSITY TOBRAMYCIN RADIOPAQUE SINGLE DOSE YANES 40GM SIMPLEX [id number] [facility] [id number] Right 2 Implanted HIP HEAD UNIPOLAR COCR 53MM UNITRAX [id number] - [id number] Total Joint Implant HIP HEAD UNIPOLAR [id number] UNITRAX [id number] [employer] [id number] Right 1 Implanted HIP TAPER SLEEVE STANDARD OFFSET FEMORAL V40 [id number] - [id number] Total Joint Implant HIP TAPER SLEEVE STANDARD OFFSET FEMORAL V40 [id number] [employer] [id number] Right 1 Implanted Closure: Monocryl, Dermabond, Mepilex [...] Care - Regine Jacobs RN - 02/17/2024 0938 EST Images from the original note were [...] MD PGY-2 Orthopaedic Surgery 02/16/2024 19:37 Pager #[phone], or EPIC Chat * Plan of Care - Honey Spring RN - 02/16/2024 1847 EST Images from the original note were not included. Noe Sue admitted to MICU at approx 1600 from [facility], Patient admitted with Acute hypoxic respiratory failure ([facility]) Arrived on NRB 10L; transferred to [facility]; poor reserves, pt desats to low 80s [...] audible with doppler. Pt accompanied by MICU lens assorter to CT for r/o PE. Monitored cardiovascular, [...] 10:15 EST Appointment [facility] Xray [address] [facility] [place] [address] 04/05/2024 10:30 EST Post-op Visit [facility] Orthopedic Trauma - An [address] [place] [address] Ko Marquis PA-C [address] [place] [address] Scheduled Referrals Name Type Priority Associated Diagnoses Order Schedule AMB CONS/FOLLOW UP ENDOCRINOLOGY Outpatient Referral Routine/Next Available Osteoporosis with current pathological fracture, unspecified osteoporosis type, initial encounter Expected: 04/04/2024 (Approximate), Expires: 02/21/2025 AMB CONS/FOLLOW UP ORTHOPEDICS - [facility] Outpatient Referral Routine/Next Available Closed right hip fracture, initial encounter ([facility]) Expected: 03/23/2024 (Approximate), Expires: 02/21/2025 documented [...] EST Closed right hip fracture, initial encounter ([facility]) XR HIP LEFT 1 VIEW Routine 02/17/2024 15 :20 EST Closed right hip fracture, initial encounter ([facility]) OPEN TREATMENT, FRACTURE, FEMUR, NECK, WITH INTERNAL FIXATION OR INSERTION OF PROSTHETIC 02/17/2024 11:44 EST Closed right hip fracture, initial encounter ([facility]) PROTIME STAT 02/17/2024 11:41 EST COMPLETE [...] 03/04/2024 11:3 9 EST us Scan 2 Actuarial Assistant PROCEDURE/MINOR SURGICAL OR DERABLES Final Result * ECG REPORT - SCANNED (03/04/2024 9:35 EST) 03/04/2024 9:35 EST us Scan 2 Actuarial Assistant PROCEDURE/MINOR SURGICAL OR DERABLES Final Result * ECG REPORT - SCANNED (02/28/2024 10:36 EST) 02/28/2024 10:3 6 EST us Scan 2 Actuarial Assistant PROCEDURE/MINOR SURGICAL OR DERABLES Final Result * (ABNORMAL) COMPLETE BLOOD COUNT (02/28/2024 10:26 EST) WBC 16.63(H) 4.00 - 10.40 K/cmm 02/28/2024 11:06 [facility] RBC 3.09(L) 4.36 - 5.78 M/cmm 02/28/2024 11:06 [facility] Hemoglobin 10.3(L) 13.8 - 17.3 g/dL 02/28/2024 11:06 [facility] HCT 30.5(L) 39.5 - 50.2 % 02/28/2024 11:06 [facility] MCV 99(H) 81 - 95 fL 02/28/2024 11:06 [facility] MCH 33.3(H) 27.6 - 33.0 pg 02/28/2024 11:06 [facility] MCHC 33.8 32.8 - 36.4 g/dL 02/28/2024 11:06 [facility] RDW-CV 15.2(H) <14.2 % 02/28/2024 11:06 [facility] RDW-SD 55.3(H) <46.0 fl 02/28/2024 11:06 [facility] PLT 362 141 - 377 K/cmm 02/28/2024 11:06 [facility] MPV 10.1 9.5 - 12.7 fL 02/28/2024 11:06 [facility] Blood VENOUS BLOOD / Unknown Venipuncture / Unknown 02/28/2024 10:26 EST 02/28/2024 10:54 EST us Pushpa Welch MD HEMATOLOGY & PF4 ORDERABLES F inal Result [facility] [address] [place] [address] * (ABNORMAL) BASIC METABOLIC PANEL (BMP) (02/28/2024 10:26 EST) Sodium 137 136 - 145 mmol/L 02/28/2024 11:44 [facility] Potassium 3.7 3.5 - 5.0 mmol/L 02/28/2024 11:44 [facility] Chloride 95(L) 96 - 110 mmol/L 02/28/2024 11:44 [facility] CO2 Total 38(H) 22 - 32 mmol/L 02/28/2024 11:44 [facility] Anion Gap 4(L) 5 - 14 mmol/L 02/28/2024 11:44 [facility] Glucose 127(H) 70 - 99 mg/dl 02/28/2024 11:44 [facility] Calcium 8.4(L) 8.5 - 10.5 mg/dL 02/28/2024 11:44 [facility] BUN 34(H) 10 - 26 mg/dL 02/28/2024 11:44 [facility] Creatinine 1.32(H) 0.66 - 1.25 mg/dL 02/28/2024 11:44 [facility] eGFR 53(L) >60 mL/min/1.73 m2 02/28/2024 11:44 [facility] Blood VENOUS BLOOD / Unknown Venipuncture / Unknown 02/28/2024 10:26 EST 02/28/2024 10:55 EST Pushpa Welch MD CHEMISTRY & BLOOD GAS ORDERAB LES Final Result [facility] [address] [place] [phone] * (ABNORMAL) NT PRO BNP (02/27/2024 15:55 EST) NT-pro BNP 1,210(H) <326 pg/mL 02/27/2024 16:57 EST [facility] Comment: In the acute [...] ORDERABL ES Final Result Performing Organization Address [facility]/ZIP Co de Phone Number [facility] [address] [place] [address] * (ABNORMAL) BASIC METABOLIC PANEL (BMP) (02/27/2024 15:55 EST) Sodium 137 136 - 145 mmol/L 02/27/2024 16:57 EST [facility] Potassium 4.0 3.5 - 5.0 mmol/L 02/27/2024 16:57 EST [facility] Chloride 94(L) 96 - 110 mmol/L 02/27/2024 16:57 [facility] CO2 Total 36(H) 22 - 32 mmol/L 02/27/2024 16:57 [facility] Anion Gap 7 5 - 14 mmol/L 02/27/2024 16:57 [facility] Glucose 184(H) 70 - 99 mg/dl 02/27/2024 16:57 [facility] Calcium 8.4(L) 8.5 - 10.5 mg/dL 02/27/2024 16:57 [facility] BUN 37(H) 10 - 26 mg/dL 02/27/2024 16:57 [facility] Creatinine 1.34(H) 0.66 - 1.25 mg/dL 02/27/2024 16:57 [facility] eGFR 52(L) >60 mL/min/1.73 m2 02/27/2024 16:57 [facility] Blood VENOUS BLOOD / Unknown Venipuncture / Unknown 02/27/2024 15:55 EST 02/27/2024 16:02 EST Pushpa Welch MD CHEMISTRY & BLOOD GAS ORDERAB LES Final Result [facility] [address] [place] [address] * TRANSTHORACIC ECHO (TTE) LIMITED W/DOPPLER W/CF [...] color Doppler.The study was interpreted by [facility]. Pertinent images and [...] 20.40(H) 4.00 - 10.40 K/cmm 02/26/2024 16:12 [facility] RBC 3.15(L) 4.36 - 5.78 M/cmm 02/26/2024 16:12 [facility] Hemoglobin 10.3(L) 13.8 - 17.3 g/dL 02/26/2024 16:12 [facility] HCT 31.3(L) 39.5 - 50.2 % 02/26/2024 16:12 [facility] MCV 99(H) 81 - 95 fL 02/26/2024 16:12 [facility] MCH 32.7 27.6 - 33.0 pg 02/26/2024 16:12 [facility] MCHC 32.9 32.8 - 36.4 g/dL 02/26/2024 16:12 [facility] RDW-CV 15.3(H) <14.2 % 02/26/2024 16:12 [facility] RDW-SD 55.4(H) <46.0 fl 02/26/2024 16:12 [facility] PLT 311 141 - 377 K/cmm 02/26/2024 16:12 [facility] MPV 10.4 9.5 - 12.7 fL 02/26/2024 16:12 [facility] Blood VENOUS BLOOD / Unknown Venipuncture / Unknown 02/26/2024 15:55 EST 02/26/2024 16:03 EST Pushpa Welch MD HEMATOLOGY & PF4 ORDERABLES F inal Result [facility] [address] [place] [address] * (ABNORMAL) BASIC METABOLIC PANEL (BMP) (02/26/2024 15:54 EST) Sodium 137 136 - 145 mmol/L 02/26/2024 16:55 [facility] Potassium 4.6 3.5 - 5.0 mmol/L 02/26/2024 16:55 [facility] Chloride 95(L) 96 - 110 mmol/L 02/26/2024 16:55 [facility] CO2 Total 34(H) 22 - 32 mmol/L 02/26/2024 16:55 [facility] Anion Gap 8 5 - 14 mmol/L 02/26/2024 16:55 [facility] Glucose 159(H) 70 - 99 mg/dl 02/26/2024 16:55 [facility] Calcium 8.5 8.5 - 10.5 mg/dL 02/26/2024 16:55 [facility] BUN 40(H) 10 - 26 mg/dL 02/26/2024 16:55 [facility] Creatinine 1.23 0.66 - 1.25 mg/dL 02/26/2024 16:55 [facility] eGFR 58(L) >60 mL/min/1.73 m2 02/26/2024 16:55 EST [facility] Blood VENOUS BLOOD / Unknown Venipuncture / Unknown 02/26/2024 15:54 EST 02/26/2024 16:13 EST us Pushpa Welch MD CHEMISTRY & BLOOD GAS ORDERAB LES Final Result [facility] [address] [place] [address] * XR CHEST PORTABLE 1 VIEW (02/26/2024 12:08 EST) Anatomical Region Laterality Modality Computed Radiogr aphy 02/26/2024 12:1 6 EST Impressions 02/26/2024 12:16 EST New right upper and lower lobe airspace opacities which may represent aspiration pneumonitis. Small right effusion. [id number] Narrative 02/26/2024 12:16 EST XR CHEST PORTABLE [...] findings: ??Normal. Bones: Normal. Resulting Agency Comment [id number] Procedure Note Karo Schmidt MD - 02/26/2024 [...] which may representaspiration pneumonitis. Small right effusion. [id number] Pushpa Welch MD IMG DIAGNOSTIC IMAGING ORDERA BLES Final Result * (ABNORMAL) BASIC METABOLIC PANEL (BMP) (02/24/2024 9:22 EST) Sodium 137 136 - 145 mmol/L 02/24/2024 10:32 [facility] Potassium 4.7 3.5 - 5.0 mmol/L 02/24/2024 10:32 [facility] Chloride 96 96 - 110 mmol/L 02/24/2024 10:32 [facility] CO2 Total 36(H) 22 - 32 mmol/L 02/24/2024 10:32 [facility] Anion Gap 5 5 - 14 mmol/L 02/24/2024 10:32 [facility] Glucose 146(H) 70 - 99 mg/dl 02/24/2024 10:32 [facility] Calcium 9.0 8.5 - 10.5 mg/dL 02/24/2024 10:32 [facility] BUN 48(H) 10 - 26 mg/dL 02/24/2024 10:32 [facility] Creatinine 1.04 0.66 - 1.25 mg/dL 02/24/2024 10:32 [facility] eGFR 70 >60 mL/min/1.73 m2 02/24/2024 10:32 [facility] Blood VENOUS BLOOD / Unknown Venipuncture / Unknown 02/24/2024 9:22 EST 02/24/2024 9:55 EST Marcos Quintero MD CHEMISTRY & BLOOD GAS ORD ERABLES Final Result [facility] [address] [place] [address] * (ABNORMAL) COMPLETE BLOOD COUNT (02/24/2024 9:22 EST) WBC 22.32(H) 4.00 - 10.40 K/cmm 02/24/2024 10:08 [facility] RBC 3.54(L) 4.36 - 5.78 M/cmm 02/24/2024 10:08 [facility] Hemoglobin 11.6(L) 13.8 - 17.3 g/dL 02/24/2024 10:08 [facility] HCT 34.4(L) 39.5 - 50.2 % 02/24/2024 10:08 [facility] MCV 97(H) 81 - 95 fL 02/24/2024 10:08 [facility] MCH 32.8 27.6 - 33.0 pg 02/24/2024 10:08 [facility] MCHC 33.7 32.8 - 36.4 g/dL 02/24/2024 10:08 [facility] RDW-CV 15.0(H) <14.2 % 02/24/2024 10:08 [facility] RDW-SD 53.6(H) <46.0 fl 02/24/2024 10:08 [facility] PLT 311 141 - 377 K/cmm 02/24/2024 10:08 [facility] MPV 10.6 9.5 - 12.7 fL 02/24/2024 10:08 [facility] Blood VENOUS BLOOD / Unknown Venipuncture / Unknown 02/24/2024 9:22 EST 02/24/2024 9:54 EST us Pete Lee DO HEMATOLOGY & PF4 ORDERABLES Saadia josse Result [facility] [address] [place] [address] * (ABNORMAL) BASIC METABOLIC PANEL (BMP) (02/23/2024 12:04 EST) Sodium 138 136 - 145 mmol/L 02/23/2024 12:39 [facility] Potassium 4.6 3.5 - 5.0 mmol/L 02/23/2024 12:39 [facility] Chloride 95(L) 96 - 110 mmol/L 02/23/2024 12:39 [facility] CO2 Total 39(H) 22 - 32 mmol/L 02/23/2024 12:39 [facility] Anion Gap 4(L) 5 - 14 mmol/L 02/23/2024 12:39 [facility] Glucose 223(H) 70 - 99 mg/dl 02/23/2024 12:39 [facility] Calcium 8.7 8.5 - 10.5 mg/dL 02/23/2024 12:39 [facility] BUN 51(H) 10 - 26 mg/dL 02/23/2024 12:39 [facility] Creatinine 1.10 0.66 - 1.25 mg/dL 02/23/2024 12:39 [facility] eGFR 66 >60 mL/min/1.73 m2 02/23/2024 12:39 [facility] Blood VENOUS BLOOD / Unknown Venipuncture / Unknown 02/23/2024 12:04 EST 02/23/2024 12:09 EST us Marcos Quintero MD CHEMISTRY & BLOOD GAS ORD ERABLES Final Result Performing Organization Address City/State/[facility] Co de Phone Number [facility] [address] [place] [phone] * (ABNORMAL) COMPLETE BLOOD COUNT (02/23/2024 12:04 EST) WBC 19.09(H) 4.00 - 10.40 K/cmm 02/23/2024 13:21 [facility] RBC 3.57(L) 4.36 - 5.78 M/cmm 02/23/2024 13:21 [facility] Hemoglobin 11.6(L) 13.8 - 17.3 g/dL 02/23/2024 13:21 [facility] HCT 35.4(L) 39.5 - 50.2 % 02/23/2024 13:21 [facility] MCV 99(H) 81 - 95 fL 02/23/2024 13:21 [facility] MCH 32.5 27.6 - 33.0 pg 02/23/2024 13:21 [facility] MCHC 32.8 32.8 - 36.4 g/dL 02/23/2024 13:21 [facility] RDW-CV 15.0(H) <14.2 % 02/23/2024 13:21 [facility] RDW-SD 54.0(H) <46.0 fl 02/23/2024 13:21 [facility] PLT 274 141 - 377 K/cmm 02/23/2024 13:21 [facility] MPV 10.9 9.5 - 12.7 fL 02/23/2024 13:21 [facility] Blood VENOUS BLOOD / Unknown Venipuncture / Unknown 02/23/2024 12:04 EST 02/23/2024 13:13 EST us Pete Lee DO HEMATOLOGY & PF4 ORDERABLES Saadia loaiza Result [facility] [address] [place] [address] * (ABNORMAL) BASIC METABOLIC PANEL (BMP) (02/22/2024 11:01 EST) Sodium 138 136 - 145 mmol/L 02/22/2024 12:27 [facility] Potassium 4.5 3.5 - 5.0 mmol/L 02/22/2024 12:27 [facility] Chloride 95(L) 96 - 110 mmol/L 02/22/2024 12:27 [facility] CO2 Total 37(H) 22 - 32 mmol/L 02/22/2024 12:27 [facility] Anion Gap 6 5 - 14 mmol/L 02/22/2024 12:27 [facility] Glucose 208(H) 70 - 99 mg/dl 02/22/2024 12:27 [facility] Calcium 9.0 8.5 - 10.5 mg/dL 02/22/2024 12:27 [facility] BUN 56(H) 10 - 26 mg/dL 02/22/2024 12:27 [facility] Creatinine 1.27(H) 0.66 - 1.25 mg/dL 02/22/2024 12:27 [facility] eGFR 55(L) >60 mL/min/1.73 m2 02/22/2024 12:27 [facility] Blood VENOUS BLOOD / Unknown Venipuncture / Unknown 02/22/2024 11:01 EST 02/22/2024 11:40 EST us Marcos Quintero MD CHEMISTRY & BLOOD GAS ORD ERABLES Final Result Performing Organization Address City/State/[facility] Co de Phone Number [facility] [address] [place] [phone] * (ABNORMAL) COMPLETE BLOOD COUNT (02/22/2024 11:01 EST) WBC 22.75(H) 4.00 - 10.40 K/cmm 02/22/2024 11:45 [facility] RBC 3.52(L) 4.36 - 5.78 M/cmm 02/22/2024 11:45 [facility] Hemoglobin 11.7(L) 13.8 - 17.3 g/dL 02/22/2024 11:45 [facility] HCT 34.6(L) 39.5 - 50.2 % 02/22/2024 11:45 [facility] MCV 98(H) 81 - 95 fL 02/22/2024 11:45 [facility] MCH 33.2(H) 27.6 - 33.0 pg 02/22/2024 11:45 [facility] MCHC 33.8 32.8 - 36.4 g/dL 02/22/2024 11:45 [facility] RDW-CV 15.1(H) <14.2 % 02/22/2024 11:45 [facility] RDW-SD 54.9(H) <46.0 fl 02/22/2024 11:45 [facility] PLT 270 141 - 377 K/cmm 02/22/2024 11:45 [facility] MPV 10.8 9.5 - 12.7 fL 02/22/2024 11:45 [facility] Blood VENOUS BLOOD / Unknown Venipuncture / Unknown 02/22/2024 11:01 EST 02/22/2024 11:37 EST us Pete Lee DO HEMATOLOGY & PF4 ORDERABLES Saadia josse Result [facility] [address], [place] [id number] * (ABNORMAL) BASIC METABOLIC PANEL (BMP) (02/21/2024 9:58 EST) Sodium 138 136 - 145 mmol/L 02/21/2024 11:42 [facility] Potassium 4.1 3.5 - 5.0 mmol/L 02/21/2024 11:42 [facility] Chloride 95(L) 96 - 110 mmol/L 02/21/2024 11:42 [facility] CO2 Total 34(H) 22 - 32 mmol/L 02/21/2024 11:42 [facility] Anion Gap 9 5 - 14 mmol/L 02/21/2024 11:42 [facility] Glucose 190(H) 70 - 99 mg/dl 02/21/2024 11:42 [facility] Calcium 8.5 8.5 - 10.5 mg/dL 02/21/2024 11:42 [facility] BUN 54(H) 10 - 26 mg/dL 02/21/2024 11:42 [facility] Creatinine 1.38(H) 0.66 - 1.25 mg/dL 02/21/2024 11:42 [facility] eGFR 50(L) >60 mL/min/1.73 m2 02/21/2024 11:42 [facility] Blood VENOUS BLOOD / Unknown Venipuncture / Unknown 02/21/2024 9:58 EST 02/21/2024 11:04 EST Marcos Quintero MD CHEMISTRY & BLOOD GAS ORD ERABLES Final Result [facility] [address] [place] [address] * (ABNORMAL) COMPLETE BLOOD COUNT (02/21/2024 9:58 EST) WBC 15.67(H) 4.00 - 10.40 K/cmm 02/21/2024 11:02 [facility] RBC 3.25(L) 4.36 - 5.78 M/cmm 02/21/2024 11:02 [facility] Hemoglobin 10.6(L) 13.8 - 17.3 g/dL 02/21/2024 11:02 [facility] HCT 31.7(L) 39.5 - 50.2 % 02/21/2024 11:02 [facility] MCV 98(H) 81 - 95 fL 02/21/2024 11:02 [facility] MCH 32.6 27.6 - 33.0 pg 02/21/2024 11:02 [facility] MCHC 33.4 32.8 - 36.4 g/dL 02/21/2024 11:02 [facility] RDW-CV 15.0(H) <14.2 % 02/21/2024 11:02 [facility] RDW-SD 54.0(H) <46.0 fl 02/21/2024 11:02 [facility] PLT 196 141 - 377 K/cmm 02/21/2024 11:02 [facility] MPV 10.7 9.5 - 12.7 fL 02/21/2024 11:02 EST [facility] Blood VENOUS BLOOD / Unknown Venipuncture / Unknown 02/21/2024 9:58 EST 02/21/2024 10:49 EST us Pete Jesus DO HEMATOLOGY & PF4 ORDERABLES Saadia l Result [facility] [address], [place] [id number] * (ABNORMAL) BASIC METABOLIC PANEL (BMP) (02/20/2024 10:07 EST) Sodium 141 136 - 145 mmol/L 02/20/2024 11:58 [facility] Potassium 4.0 3.5 - 5.0 mmol/L 02/20/2024 11:58 [facility] Chloride 96 96 - 110 mmol/L 02/20/2024 11:58 [facility] CO2 Total 35(H) 22 - 32 mmol/L 02/20/2024 11:58 [facility] Anion Gap 10 5 - 14 mmol/L 02/20/2024 11:58 [facility] Glucose 106(H) 70 - 99 mg/dl 02/20/2024 11:58 [facility] Calcium 8.5 8.5 - 10.5 mg/dL 02/20/2024 11:58 [facility] BUN 64(H) 10 - 26 mg/dL 02/20/2024 11:58 [facility] Creatinine 2.00(H) 0.66 - 1.25 mg/dL 02/20/2024 11:58 [facility] eGFR 32(L) >60 mL/min/1.73 m2 02/20/2024 11:58 [facility] Blood VENOUS BLOOD / Unknown Venipuncture / Unknown 02/20/2024 10:07 EST 02/20/2024 11:15 EST us Marcos Quintero MD CHEMISTRY & BLOOD GAS ORD ERABLES Final Result [facility] [address], [place] [id number] * (ABNORMAL) COMPLETE BLOOD COUNT (02/20/2024 10:07 EST) WBC 14.61(H) 4.00 - 10.40 K/cmm 02/20/2024 11:28 [facility] RBC 3.36(L) 4.36 - 5.78 M/cmm 02/20/2024 11:28 [facility] Hemoglobin 11.0(L) 13.8 - 17.3 g/dL 02/20/2024 11:28 [facility] HCT 32.8(L) 39.5 - 50.2 % 02/20/2024 11:28 [facility] MCV 98(H) 81 - 95 fL 02/20/2024 11:28 [facility] MCH 32.7 27.6 - 33.0 pg 02/20/2024 11:28 [facility] MCHC 33.5 32.8 - 36.4 g/dL 02/20/2024 11:28 [facility] RDW-CV 15.2(H) <14.2 % 02/20/2024 11:28 [facility] RDW-SD 54.4(H) <46.0 fl 02/20/2024 11:28 [facility] PLT 167 141 - 377 K/cmm 02/20/2024 11:28 [facility] MPV 11.7 9.5 - 12.7 fL 02/20/2024 11:28 [facility] Blood VENOUS BLOOD / Unknown Venipuncture / Unknown 02/20/2024 10:07 EST 02/20/2024 11:13 EST us Pete Lee DO HEMATOLOGY & PF4 ORDERABLES Saadia l Result [facility] [address] [place] [address] * MRSA PCR (02/20/2024 5:04 EST) MRSA/Staph aureus Result No Staphylococcus aureus detected by PCR 02/20/2024 13:18 [facility] Swab BOTH ANTERIOR NARES / Unknown Swab / Unknown 02/20/2024 5:04 EST 02/20/2024 7:15 EST us Pete Bath DO MICROBIOLOGY - GENERAL ORDERABLE S Final Result [facility] [address] [place] [address] * (ABNORMAL) BASIC METABOLIC PANEL (BMP) (02/19/2024 11:27 EST) Sodium 136 136 - 145 mmol/L 02/19/2024 12:28 [facility] Potassium 4.7 3.5 - 5.0 mmol/L 02/19/2024 12:28 [facility] Chloride 96 96 - 110 mmol/L 02/19/2024 12:28 [facility] CO2 Total 35(H) 22 - 32 mmol/L 02/19/2024 12:28 [facility] Anion Gap 5 5 - 14 mmol/L 02/19/2024 12:28 [facility] Glucose 149(H) 70 - 99 mg/dl 02/19/2024 12:28 [facility] Calcium 8.4(L) 8.5 - 10.5 mg/dL 02/19/2024 12:28 [facility] BUN 70(H) 10 - 26 mg/dL 02/19/2024 12:28 [facility] Creatinine 1.86(H) 0.66 - 1.25 mg/dL 02/19/2024 12:28 [facility] eGFR 35(L) >60 mL/min/1.73 m2 02/19/2024 12:28 [facility] Blood VENOUS BLOOD / Unknown Venipuncture / Unknown 02/19/2024 11:27 EST 02/19/2024 11:49 EST us Marcos Quintero MD CHEMISTRY & BLOOD GAS ORD ERABLES Final Result [facility] [address] [place] [address] * (ABNORMAL) COMPLETE BLOOD COUNT (02/19/2024 11:27 EST) WBC 12.57(H) 4.00 - 10.40 K/cmm 02/19/2024 12:00 [facility] RBC 3.51(L) 4.36 - 5.78 M/cmm 02/19/2024 12:00 [facility] Hemoglobin 11.5(L) 13.8 - 17.3 g/dL 02/19/2024 12:00 [facility] HCT 33.2(L) 39.5 - 50.2 % 02/19/2024 12:00 [facility] MCV 95 81 - 95 fL 02/19/2024 12:00 [facility] MCH 32.8 27.6 - 33.0 pg 02/19/2024 12:00 [facility] MCHC 34.6 32.8 - 36.4 g/dL 02/19/2024 12:00 [facility] RDW-CV 15.2(H) <14.2 % 02/19/2024 12:00 [facility] RDW-SD 52.4(H) <46.0 fl 02/19/2024 12:00 [facility] PLT 148 141 - 377 K/cmm 02/19/2024 12:00 [facility] MPV 11.6 9.5 - 12.7 fL 02/19/2024 12:00 [facility] Blood VENOUS BLOOD / Unknown Venipuncture / Unknown 02/19/2024 11:27 EST 02/19/2024 11:48 EST us Pete Lee DO HEMATOLOGY & PF4 ORDERABLES Saadia l Result [facility] [address] [id number] * XR CHEST PORTABLE 1 VIEW (02/18/2024 15:38 EST) Anatomical Region Laterality Modality Computed Radiogr aphy 02/18/2024 15:4 8 EST Impressions 02/18/2024 15:48 EST Bilateral small pleural effusions and bibasilar opacities compatible with atelectasis. [id number] Narrative 02/18/2024 15:48 EST XR CHEST PORTABLE 1 VIEW ??02/18/2024 3:24 PM Clinical History/comments: hypoxia Comparison: 02/16/2024. Technique: Single portable AP view of the chest. Findings: Lines/tubes/devices: ??None Lungs: Left greater than right basilar opacities Pleura: Bilateral pleural effusions Cardiac and mediastinal contours: Stable Soft tissues and extrathoracic findings: No acute abnormalities Bones: No acute abnormalities Resulting Agency Comment [id number] Procedure Note Gordo Palm MD - 02/18/2024 [...] pleural effusions and bibasilar opacities compatible withatelectasis. [id number] us Marcos Quintero MD IMG DIAGNOSTIC IMAGING OR DERABLES Final Result * VITAMIN D (25,OH) (02/18/2024 6:28 EST) 25OH Vitamin D Tot 38 30 - 100 ng/mL 02/19/2024 10:50 EST [facility] Comment: Vitamin D 25,OH Interpretive Ranges: Deficiency: ??<10.0 ng/mL Insufficiency: ??10.0 - 30.0 ng/mL Sufficiency: ??30.0 - 100.0 ng/mL Toxicity: ??>100.0 ng/mL Blood VENOUS BLOOD / Unknown Venipuncture / Unknown 02/18/2024 6:28 EST 02/18/2024 6:38 EST us Marcos Quintero MD CHEMISTRY & BLOOD GAS ORD ERABLES Final Result [facility] [address], [place] [address] * (ABNORMAL) COMPREHENSIVE METABOLIC PANEL (CMP) (02/18/2024 6:28 EST) Sodium 134(L) 136 - 145 mmol/L 02/18/2024 7:09 [facility] Potassium 4.5 3.5 - 5.0 mmol/L 02/18/2024 7:09 [facility] Chloride 97 96 - 110 mmol/L 02/18/2024 7:09 [facility] CO2 Total 36(H) 22 - 32 mmol/L 02/18/2024 7:09 [facility] Glucose 110(H) 70 - 99 mg/dl 02/18/2024 7:09 [facility] BUN 70(H) 10 - 26 mg/dL 02/18/2024 7:09 [facility] Creatinine 2.11(H) 0.66 - 1.25 mg/dL 02/18/2024 7:09 [facility] eGFR 30(L) >60 mL/min/1.7 3m2 02/18/2024 7:09 [facility] Total Protein 5.0(L) 6.3 - 8.2 g/dL 02/18/2024 7:09 [facility] Albumin 2.7(L) 3.4 - 4.9 g/dL 02/18/2024 7:09 [facility] Alkaline Phosphatase 80 38 - 126 U/L 02/18/2024 7:09 [facility] AST 33 15 - 46 U/L 02/18/2024 7:09 [facility] ALT 36 <50 U/L 02/18/2024 7:09 [facility] Bilirubin, Total <0.5 <1.4 mg/dL 02/18/20 7:09 [facility] Calcium 8.2(L) 8.5 - 10.5 mg/dL 02/18/2024 7:09 [facility] Albumin/Globulin Ratio 1.2 1.0 - 2.5 02/18/2024 7:09 [facility] Anion Gap 1(L) 5 - 14 mmol/L 02/18/2024 7:09 [facility] Blood VENOUS BLOOD / Unknown Venipuncture / Unknown 02/18/2024 6:28 EST 02/18/2024 6:38 EST us Pete Lee DO CHEMISTRY & BLOOD GAS ORDERABLES Final Result Performing Organization Address City/State/[facility] Co de Phone Number [facility] [address] [place] [address] * (ABNORMAL) COMPLETE BLOOD COUNT (02/18/2024 6:28 EST) WBC 13.90(H) 4.00 - 10.40 K/cmm 02/18/2024 6:45 [facility] RBC 3.41(L) 4.36 - 5.78 M/cmm 02/18/2024 6:45 [facility] Hemoglobin 11.0(L) 13.8 - 17.3 g/dL 02/18/2024 6:45 [facility] HCT 32.3(L) 39.5 - 50.2 % 02/18/2024 6:45 [facility] MCV 95 81 - 95 fL 02/18/2024 6:45 [facility] MCH 32.3 27.6 - 33.0 pg 02/18/2024 6:45 [facility] MCHC 34.1 32.8 - 36.4 g/dL 02/18/2024 6:45 [facility] RDW-CV 14.9(H) <14.2 % 02/18/2024 6:45 [facility] RDW-SD 51.8(H) <46.0 fl 02/18/2024 6:45 [facility] PLT 125(L) 141 - 377 K/cmm 02/18/2024 6:45 [facility] MPV 11.0 9.5 - 12.7 fL 02/18/2024 6:45 [facility] Blood VENOUS BLOOD / Unknown Venipuncture / Unknown 02/18/2024 6:28 EST 02/18/2024 6:32 EST us Pete Lee DO HEMATOLOGY & PF4 ORDERABLES Saadia l Result Performing Organization Address City/[facility]/ZIP Co de Phone Number [facility] [address] [place] [address] * POCT GLUCOSE, INTERFACED (02/17/2024 17:48 EST) Glucose, POC 84 70 - 100 mg/dL 02/17/2024 17:49 [facility] HN LAB POC COMMENT (GLUCOSE) Test Performed by Nursing Services 02/17/2024 17:49 [facility] Blood CAPILLARY BLOOD / Unknown 02/17/2024 17:48 EST 02/17/2024 17:49 EST us Pete Lee DO POINT OF CARE TEST ORDERABLES Fi nal Result [facility] [address] [place] [address] * XR HIP RIGHT 1 VIEW (02/17/2024 15:20 EST) Anatomical Region Laterality Modality Lower Extremities Right Computed Radio graphy 02/17/2024 16:1 3 EST Impressions 02/17/2024 16:13 EST FINDINGS/IMPRESSION: 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 No periprosthetic fracture is seen. No acute left hip abnormality is seen. Atherosclerotic calcifications are present bilaterally. [id number] Narrative 02/17/2024 16:13 EST XR HIP RIGHT [...] abnormality is seen. Atherosclerotic calcifications arepresent bilaterally. [id number] Augustine Ceja MD IMG DIAGNOSTIC IMAGING OR [...] is seen. Atherosclerotic calcifications are present bilaterally. [id number] Narrative 02/17/2024 16:13 EST XR HIP RIGHT [...] of the lower pelvis. Resulting Agency Comment [id number] Procedure Note Gordo Palm MD - 02/17/2024 [...] abnormality is seen. Atherosclerotic calcifications arepresent bilaterally. [id number] us Augustine Ceja MD IMG DIAGNOSTIC IMAGING OR DERABLES Final Result * PROTIME (02/17/2024 11:41 EST) I.N.R. 1.0 0.9 - 1.1 Ratio 02/17/2024 12:08 EST [facility] Pro Time 11.2 9.7 - 12.8 secs 02/17/2024 12:08 EST [facility] Blood VENOUS BLOOD / Unknown Venipuncture / Unknown 02/17/2024 11:41 EST 02/17/2024 11:50 EST Narrative [facility] - 02/17/2024 12:08 EST Moderate Intensity Coumadin INR = 2.0-3.0 Adjustments in anticoagulant therapy dose should be based on the INR and NOT on the Protime. us Jason Morse MD HEMATOLOGY & PF4 ORDERABLES Final Result [facility] [address] [place] [address] * MAGNESIUM (02/17/2024 5:58 EST) Magnesium 2.1 1.7 - 2.8 mg/dL 02/17/2024 7:11 [facility] Blood VENOUS BLOOD / Unknown Venipuncture / Unknown 02/17/2024 5:58 EST 02/17/2024 6:07 EST us Marti Horn MD CHEMISTRY & BLOOD GAS ORDERABLES Final Result [facility] [address] [place] [address] * (ABNORMAL) COMPREHENSIVE METABOLIC PANEL (CMP) (02/17/2024 5:58 EST) Pathologist [facility] Sodium 134(L) 136 - 145 mmol/L 02/17/2024 6:18 [facility] Potassium 4.4 3.5 - 5.0 mmol/L 02/17/2024 6:18 [facility] Chloride 100 96 - 110 mmol/L 02/17/2024 6:18 [facility] CO2 Total 30 22 - 32 mmol/L 02/17/2024 6:18 [facility] Glucose 108(H) 70 - 99 mg/dl 02/17/2024 6:18 [facility] BUN 69(H) 10 - 26 mg/dL 02/17/2024 6:18 [facility] Creatinine 2.08(H) 0.66 - 1.25 mg/dL 02/17/2024 6:18 [facility] eGFR 31(L) >60 mL/min/1.7 3m2 02/17/2024 6:18 [facility] Total Protein 5.2(L) 6.3 - 8.2 g/dL 02/17/2024 6:18 [facility] Albumin 2.8(L) 3.4 - 4.9 g/dL 02/17/2024 6:18 [facility] Alkaline Phosphatase 83 38 - 126 U/L 02/17/2024 6:18 [facility] AST 36 15 - 46 U/L 02/17/2024 6:18 [facility] ALT 49 <50 U/L 02/17/2024 6:18 [facility] Bilirubin, Total 0.5 <1.4 mg/dL 02/17/20 6:18 [facility] Calcium 8.7 8.5 - 10.5 mg/dL 02/17/2024 6:18 [facility] Albumin/Globulin Ratio 1.2 1.0 - 2.5 02/17/2024 6:18 [facility] Anion Gap 4(L) 5 - 14 mmol/L 02/17/2024 6:18 [facility] Blood VENOUS BLOOD / Unknown Venipuncture / Unknown 02/17/2024 5:58 EST 02/17/2024 6:07 EST us Pete Lee DO CHEMISTRY & BLOOD GAS ORDERABLES Final Result [facility] [address], [place] [id number] * (ABNORMAL) COMPLETE BLOOD COUNT (02/17/2024 5:58 EST) WBC 16.70(H) 4.00 - 10.40 K/cmm 02/17/2024 6:16 [facility] RBC 3.66(L) 4.36 - 5.78 M/cmm 02/17/2024 6:16 [facility] Hemoglobin 11.7(L) 13.8 - 17.3 g/dL 02/17/2024 6:16 [facility] HCT 33.7(L) 39.5 - 50.2 % 02/17/2024 6:16 [facility] MCV 92 81 - 95 fL 02/17/2024 6:16 [facility] MCH 32.0 27.6 - 33.0 pg 02/17/2024 6:16 [facility] MCHC 34.7 32.8 - 36.4 g/dL 02/17/2024 6:16 [facility] RDW-CV 14.7(H) <14.2 % 02/17/2024 6:16 [facility] RDW-SD 49.7(H) <46.0 fl 02/17/2024 6:16 [facility] PLT 128(L) 141 - 377 K/cmm 02/17/2024 6:16 [facility] MPV 10.6 9.5 - 12.7 fL 02/17/2024 6:16 [facility] Blood VENOUS BLOOD / Unknown Venipuncture / Unknown 02/17/2024 5:58 EST 02/17/2024 6:04 EST us Pete Lee DO HEMATOLOGY & PF4 ORDERABLES Saadia l Result Performing Organization Address City/[facility]/ZIP Co de Phone Number [facility] [address] [place] [address] * (ABNORMAL) POCT GLUCOSE, INTERFACED (02/17/2024 5:58 EST) Pathologist [facility] Glucose, POC 114(H) 70 - 100 mg/dL 02/17/2024 5:59 EST [facility] HN LAB POC COMMENT (GLUCOSE) Test Performed by Nursing Services 02/17/2024 5:59 EST [facility] Blood CAPILLARY BLOOD / Unknown 02/17/2024 5:58 EST 02/17/2024 5:59 EST us Pete Lee DO POINT OF CARE TEST ORDERABLES Fi nal Result Performing Organization Address City/[facility]/ZIP Co de Phone Number [facility] [address] [place] [address] * MRSA PCR (02/17/2024 5:53 EST) MRSA/Staph aureus Result No Staphylococcus aureus detected by PCR 02/17/2024 10:53 EST [facility] Swab BOTH ANTERIOR NARES / Unknown Swab / Unknown 02/17/2024 5:53 EST 02/17/2024 7:50 EST us Pete Lee DO MICROBIOLOGY - GENERAL ORDERABLE S Final Result Performing Organization Address City/[facility]/ZIP Co de Phone Number [facility] [address] [place] [address] * (ABNORMAL) POCT GLUCOSE, INTERFACED (02/16/2024 23:45 EST) Glucose, POC 149(H) 70 - 100 mg/dL 02/16/2024 23:48 EST [facility] HN LAB POC COMMENT (GLUCOSE) Test Performed by Nursing Services 02/16/2024 23:48 EST [facility] Blood CAPILLARY BLOOD / Unknown 02/16/2024 23:45 EST 02/16/2024 23:48 EST us Pete Lee DO POINT OF CARE TEST ORDERABLES Fi nal Result Performing Organization Address [facility] Co de Phone Number [facility] [address] [place] [address] * TYPE AND SCREEN (02/16/2024 20:00 EST) ABO O 02/16/2024 21:54 EST [facility] Rh Factor Positive 02/16/2024 21:54 EST [facility] Antibody Screen Negative 02/16/2024 21:54 EST [facility] Specimen Expires: 02/19/2024 @ 23:59 02/16/2024 21:54 EST [facility] Blood VENOUS BLOOD / Unknown Venipuncture / Unknown 02/16/2024 20:00 EST 02/16/2024 20:09 EST us Ritesh Cardenas MD BLOOD BANK TESTS Edited Resul t - Final [facility] [place] [address] * CT ANGIO CHEST PE PROTOCOL (02/16/2024 [...] above interpretation and agree with the findings. [id number] Narrative 02/17/2024 10:[address] ANGIO CHEST [...] lesions. Multilevel degenerative changes. Resulting Agency Comment [id number] Procedure Note Sonia Salazar MD - 02/17/2024 [...] the above interpretation andagree with the findings. [id number] us Pete Lee DO IMG CT ORDERABLES [...] left hip. The soft tissues are unremarkable. [id number] Narrative 02/16/2024 18:27 EST XR HIP LEFT 2-3 VIEWS OPTIONAL PELVIS, XR HIP RIGHT 1 VIEW ??02/16/2024 5:52 PM Signs and Symptoms/Comments: right hip pain Comparison: Pelvic x-ray 02/15/2024. Technique: AP orthopedic view of the pelvis which includes an AP view of both hips, with additional AP view of the left hip. Resulting Agency Comment [id number] Procedure Note Sonia Salazar MD - 02/16/2024 [...] theleft hip. The soft tissues are unremarkable. [id number] us Ritesh Cardenas MD IMG DIAGNOSTIC IMAGING [...] left hip. The soft tissues are unremarkable. [id number] Narrative 02/16/2024 18:27 EST XR HIP LEFT [...] theleft hip. The soft tissues are unremarkable. [id number] Ritesh Cardenas MD IMG DIAGNOSTIC IMAGING ORDERA BLES Final Result * PROTIME (02/16/2024 17:00 EST) I.N.R. 1.0 0.9 - 1.1 Ratio 02/16/2024 18:17 EST [facility] Pro Time 11.3 9.7 - 12.8 secs 02/16/2024 18:17 EST [facility] Blood VENOUS BLOOD / Unknown Venipuncture / Unknown 02/16/2024 17:00 EST 02/16/2024 17:30 EST Narrative [facility] - 02/16/2024 18:17 EST Moderate Intensity Coumadin INR = 2.0-3.0 Adjustments in anticoagulant therapy dose should be based on the INR and NOT on the Protime. Ritesh Cardenas MD HEMATOLOGY & PF4 ORDERABLES F inal Result [facility] [address] [place] [address] * (ABNORMAL) PTT (02/16/2024 17:00 EST) PTT 20(L) 26 - 37 secs 02/16/2024 18:17 EST [facility] Blood VENOUS BLOOD / Unknown Venipuncture / Unknown 02/16/2024 17:00 EST 02/16/2024 17:30 EST Ritesh Cardenas MD HEMATOLOGY & PF4 ORDERABLES F inal Result Performing Organization Address [facility] de Phone Number [facility] [address] [place] [address] * (ABNORMAL) HEMOGLOBIN A1C (02/16/2024 17:00 EST) Hemoglobin A1c 6.1(H) <5.7 % 02/16/2024 21:15 EST [facility] Comment: Glycemic Status References: Normal: ??<5.7% Pre-Diabetes: ??5.7% - 6.4% Diagnostic of Diabetes: ??> or = 6.5% (if confirmed) Est Avg Glucose 128 mg/dL 21:15 EST [facility] Comment:The eAG represents t he A1c result expressed as average glucose in mg/dL. Blood VENOUS BLOOD / Unknown Venipuncture / Unknown 02/16/2024 17:00 EST 02/16/2024 17:16 EST Pete Lee DO CHEMISTRY & BLOOD GAS ORDERABLES Final Result Performing Organization Address [facility] de Phone Number [facility] [address] [place] [address] * (ABNORMAL) COMPREHENSIVE METABOLIC PANEL (CMP) (02/16/2024 17:00 EST) Sodium 140 136 - 145 mmol/L 02/16/2024 17:35 EST [facility] Potassium 5.2(H) 3.5 - 5.0 mmol/L 02/16/2024 17:35 EST [facility] Chloride 97 96 - 110 mmol/L 02/16/2024 17:35 [facility] CO2 Total 36(H) 22 - 32 mmol/L 02/16/2024 17:35 [facility] Glucose 179(H) 70 - 99 mg/dl 02/16/2024 17:35 [facility] BUN 70(H) 10 - 26 mg/dL 02/16/2024 17:35 [facility] Creatinine 2.54(H) 0.66 - 1.25 mg/dL 02/16/2024 17:35 [facility] eGFR 24(L) >60 mL/min/1.7 3m2 02/16/2024 17:35 [facility] Total Protein 5.4(L) 6.3 - 8.2 g/dL 02/16/2024 17:35 [facility] Albumin 3.0(L) 3.4 - 4.9 g/dL 02/16/2024 17:35 [facility] Alkaline Phosphatase 104 38 - 126 U/L 02/16/2024 17:35 [facility] AST 32 15 - 46 U/L 02/16/2024 17:35 [facility] ALT 50(H) <50 U/L 02/16/2024 17:35 [facility] Bilirubin, Total 0.6 <1.4 mg/dL 02/16/20 17:35 [facility] Calcium 9.1 8.5 - 10.5 mg/dL 02/16/2024 17:35 [facility] Albumin/Globulin Ratio 1.3 1.0 - 2.5 02/16/2024 17:35 [facility] Anion Gap 7 5 - 14 mmol/L 02/16/2024 17:35 [facility] Blood VENOUS BLOOD / Unknown Venipuncture / Unknown 02/16/2024 17:00 EST 02/16/2024 17:15 EST us Pete Lee DO CHEMISTRY & BLOOD GAS ORDERABLES Final Result [facility] [address], [place] [id number] * (ABNORMAL) COMPLETE BLOOD COUNT (02/16/2024 17:00 EST) WBC 19.76(H) 4.00 - 10.40 K/cmm 02/16/2024 17:38 [facility] RBC 3.85(L) 4.36 - 5.78 M/cmm 02/16/2024 17:38 [facility] Hemoglobin 12.5(L) 13.8 - 17.3 g/dL 02/16/2024 17:38 [facility] HCT 37.3(L) 39.5 - 50.2 % 02/16/2024 17:38 [facility] MCV 97(H) 81 - 95 fL 02/16/2024 17:38 [facility] MCH 32.5 27.6 - 33.0 pg 02/16/2024 17:38 [facility] MCHC 33.5 32.8 - 36.4 g/dL 02/16/2024 17:38 [facility] RDW-CV 14.8(H) <14.2 % 02/16/2024 17:38 [facility] RDW-SD 53.3(H) <46.0 fl 02/16/2024 17:38 [facility] PLT 130(L) 141 - 377 K/cmm 02/16/2024 17:38 [facility] MPV 11.4 9.5 - 12.7 fL 02/16/2024 17:38 [facility] Blood VENOUS BLOOD / Unknown Venipuncture / Unknown 02/16/2024 17:00 EST 02/16/2024 17:16 EST us Pete Lee DO HEMATOLOGY & PF4 ORDERABLES Saadia loaiza Result [facility] [address], [place] [id number] * (ABNORMAL) PROCALCITONIN (02/16/2024 17:00 EST) Pathologist [facility] Procalcitonin 0.96(H) See Note ng/mL 02/16/2024 18:25 EST [facility] Comment: NOTE: Reference Range: <0.5 ng/mL - Low risk of severe sepsis >2.0 ng/mL - High risk of severe sepsis Blood VENOUS BLOOD / Unknown Venipuncture / Unknown 02/16/2024 17:00 EST 02/16/2024 17:15 EST Pete Lee DO CHEMISTRY & BLOOD GAS ORDERABLES Final Result Performing Organization Address [facility] Co de Phone Number [facility] [address] [place] [address] * HEPARIN LEVEL - UNFRACTIONATED HEPARIN (02/16/2024 17:00 EST) [facility] Heparin Level-UFH 0.05 Therapeutic Range: 0.30 - 0.70 IU/mL 02/16/2024 18:22 EST [facility] Comment:Unfractionated hepar in therapeutic [...] ORDERABLES Saadia l Result Performing Organization Address [facility] Co de Phone Number [facility] [address] [place] [address] * (ABNORMAL) POCT GLUCOSE, INTERFACED (02/16/2024 16:59 EST) [facility] Glucose, POC 177(H) 70 - 100 mg/dL 02/16/2024 17:00 EST [facility] HN LAB POC COMMENT (GLUCOSE) Test Performed by Nursing Services 02/16/2024 17:00 EST [facility] Blood CAPILLARY BLOOD / Unknown 02/16/2024 16:59 EST 02/16/2024 17:00 EST us Pete Lee DO POINT OF CARE TEST ORDERABLES Fi nal Result [facility] [address] [place] [address] * EKG 12-LEAD (02/16/2024 16:44 EST) 02/16/2024 16:4 4 EST Narrative [facility] EKG - 02/28/2024 10:28 EST ? [facility] ? Test Date: ?2024-02-16 Pat Name: ? NOE SUE ? Department: ?? [facility] [address] ? Room: ? M415 Gender: ? Male ? 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 Requested By: JESUS FREEMAN Order Number: [id number] ? Zulay CLEMONS: ?? IMANI LOMAS MD ? Measurements Intervals ?Carey ? Rate: ? 104 ?P: ?73 NE: ? 147 ?QRS: ?-58 QRSD: ? 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 Edited by CRISTELA TERRY MD [id number] 20:18:03 EST. I reviewed the tracing and have either agreed or edited the findings inthis report. Electronically Signed On 02-28-2024 10:28:35 EST by CAPO CLEMONS. us Pete Lee DO CARDIAC ECG ORDERABLES Final Res ult [facility] EKG documented in this encounter Visit Diagnoses Diagnosis Acute hypoxic respiratory failure ([facility])- Primary Closed right hip fracture, initial encounter ([facility]) Acute hypoxic respiratory failure ([facility]) [J96.01] Osteoporosis with current pathological fracture, unspecified osteoporosis type, initial encounter Chronic obstructive pulmonary disease, unspecified COPD type ([facility]) [J44.9] Pulmonary hypertension ([facility]) [I27.20] Other chronic pulmonary heart diseases Atrial fibrillation, unspecified type ([facility]) [I48.91] Urinary retention [R33.9] Retention of urine, unspecified Hypertension, unspecified type [I10] Thrush [B37.0] Candidiasis of mouth PFO (patent foramen ovale) Ostium secundum type atrial septal defect Pulmonary emphysema, unspecified emphysema type (HCC-CMS) Closed right hip fracture, initial encounter ([facility]) Osteoporosis with current pathological fracture Pulmonary hypertension (HCC-CMS) Other chronic pulmonary heart diseases Chronic obstructive pulmonary disease ([facility]) Chronic airway obstruction, not elsewhere classified Atrial fibrillation ([facility]) Atrial fibrillation Urinary retention Retention of urine, unspecified Hypertension Unspecified essential hypertension Thrush Candidiasis of mouth PFO (patent foramen ovale) Ostium secundum type atrial septal defect documented in this encounter Admitting Diagnoses Diagnosis Acute hypoxic respiratory failure ([facility]) Closed right hip fracture, initial encounter ([facility]) documented in this encounter Administered Medications [...] 0.1 mg/mL syringe 0.5 mg 1 024 [id number] LAC-ropivacain e 80 mcg-0.5 mg-30 mg-150 mg [...] documented as of this encounter Care Teams Garnett Mechanic Relationship Specialty Start Date End Date Suzie Villagomez MD [address] [place] [address] PCP - General Family Medicine - Primary Care 02/15/24 documented as of this encounter
--- OUTSIDE RECORDS SUMMARY | 2024-04-01 21:02 | XMS_ITS | Referral Summary ---
Author Organization [facility] Address [address] [place] [address] Care Team Providers Care Cord Maker Name Role Phone Suzie Quan MD Primary Care Provider [phone] Encounters Date Type Department Care Team Description 03/14/2024 Orders Only [facility] Hand & Upper Extremity Program - [address] [place] [address] Ko Marquis PA-C Closed fracture of right hip with routine healing, subsequent encounter (Primary Dx) 02/16/2024 15:41 EST - 02/29/2024 12:20 EST Hospital Encounter [facility] General Medicine Unit [address] [place] [address] Ritehs Cardenas MD Clements, MD Ingrid Hauser, MD Taylor Marmolejo, MD Manav Vargas Lee-Anna, MD Farrell, [place], MD Closed right hip fracture, initial encounter ([facility]) (Primary Dx); Acute hypoxic respiratory failure ([facility]) [J96.01]; Osteoporosis with current pathological fracture, unspecified osteoporosis type, initial encounter; Chronic obstructive pulmonary disease, unspecified COPD type ([facility]) [J44.9]; Pulmonary hypertension ([facility]) [I27.20]; Atrial fibrillation, unspecified type ([facility]) [I48.91]; Urinary retention [R33.9]; Hypertension, unspecified type [I10]; Thrush [B37.0]; PFO (patent foramen ovale); Pulmonary emphysema, unspecified emphysema type ([facility]) Discharge Disposition: Nursing Facility (Skilled) 02/27/2024 Telephone [facility] [address] [place] [address] Farnaz Rivas, DO Follow-up; Returning Call 02/23/2024 Telephone [facility] [address] [place] [address] Farnaz Rivas, DO Appointment Related (Called and left message with referral department. With Dr. Quijano message://Farnaz Rivas, DO?Aslhey Rae MA/Kevin, looks like patient still in hospital. Please see if PCP willing to address or we can see patient when he is able if desired, I'm happy to discuss with PCP if needed. Thanks!/) 02/17/2024 11:57 EST Anesthesia Event [facility] OR [address] [place] [address] Jason Morse MD 02/17/2024 11:30 EST - 02/17/2024 15:15 EST Surgery [facility] OR [address] [place] [phone] Augustine Ceja MD Open treatment of right femoral neck fracture with hemiarthroplasty [43955 (CPT??)] 02/16/2024 Travel 02/15/2024 13:50 EST - 02/16/2024 14:42 EST Hospital Encounter [facility] Intensive Care Unit [address] [place] [address] Homer Tan MD Gilkey, Calvin T, MD Swayze-Quinn, Hannah, MD Closed right hip fracture, initial encounter ([facility]) [S72.001A] (Primary Dx); Acute on chronic respiratory failure with hypoxia and hypercapnia ([facility]) [J96.21, J96.22]; Pneumonia due to infectious organism, unspecified laterality, unspecified part of lung [J18.9]; Heart failure, unspecified HF chronicity, unspecified heart failure type ([facility]); Pulmonary HTN ([facility]-CMS); Pulmonary emphysema, unspecified emphysema type ([facility]) Discharge Disposition: Short Term Hospital 02/15/2024 Prep for Procedure [facility] Orthopedics & Sport Medicine [address] [place] [address] Buzz Freed MD Closed right hip fracture, initial encounter ([facility]) (Primary Dx) 02/15/2024 11:03 EST - 02/15/2024 13:49 EST Hospital Encounter [facility] [place] Discharge Disposition: Home or Self Care 02/15/2024 10:58 EST - 02/15/2024 11:02 EST Hospital Encounter [facility] [place] Discharge Disposition: Home or Self Care 02/15/2024 10:56 EST - 02/15/2024 10:57 EST Hospital Encounter [facility] [place] Discharge Disposition: Home or Self Care 02/15/2024 10:53 EST - 02/15/2024 10:55 EST Hospital Encounter [facility] [place] Discharge Disposition: Home [...] nebulizer solutionIndicat ions:Pulmonary emphysema, unspecified emphysema type ([facility]) Take 3 mL by nebulization 4 times [...] 02/27/2024 Atrial fibrillation ([facility]) 02/26/2024 Urinary retention 02/26/2024 Hypertension 02/26/2024 Thrush 02/26/2024 Osteoporosis with current pathological fracture 02/22/2024 Heart failure ([facility]) 02/16/2024 Pulmonary hypertension ([facility]) 02/16/2024 Chronic obstructive pulmonary disease ([facility]) 02/16/2024 Acute hypoxic respiratory failure ([facility]) 11/2023 Closed right hip fracture, initial encounter ( [facility]) 02/15/2024 Acute on chronic respiratory failure with hypoxia and hypercapnia ([facility]) 02/15/2024 Pneumonia due to infectious organism 02/15/2024 Social History Tobacco Use Types Packs/Day Years Used Date Smoking Tobacco: Former Cigarettes Tobacco Cessation:Counseling Given: No Alcohol Use Standard Drinks/Week Comments Never 0 (1 standard drink = 0.6 oz pur e alcohol) [facility] Utilities Answer Date Recorded In the past 12 months has [employer], gas, oil, or water [employer] threatened to shut off services in your [...] time in the past 12 m [facility], were you homeless or living in a intermediate (including now)? No 02/16/2024 [facility] - Inadequate Housing Answer Date Re corded What is your living situation today? I have a [facility] place to live 02/20/2024 Think about [...] Description 04/05/2024 10:15 EST Appointment [facility] [address] [place], [place] [phone] 04/05/2024 10:30 EST Post-op Visit [facility] Orthopedic Trauma - [address] [address] Ko Marquis PA-C [address] [place] [phone] Medical Devices Implanted Type Area Linux System Administrator Device Identifier Shelf Expiration Date Model / Serial / Lot Cement Bone High Viscosity Tobramycin Radiopaque Single Dose Magaña 40gm Simplex [id number] - [id number] Implanted:Qty: 2 on 02/17/2024 by Augustine Ceja MD at [facility] Ortho Implant Right: Hip [facility] [id number] 08/07/2024 [id number] / [id number] Hip Femoral Stem Cmntd 132deg Std Offst Sz 4 [id number] Accolade C [id number] - [id number] Implanted:Qty: 1 on 02/17/2024 by Augustine Ceja MD at [facility] Total Joint Implant Right: Hip [employer] [id number] 01/01/2029 2075-5396 D / [id number] D / [id number] Hip Spacer Stem Distal Cemented 11mm Accolade [id number] - [id number] Implanted:Qty: 1 on 02/17/2024 by Augustine Ceja MD at [facility] Total Joint Implant Right: Hip [facility] [employer] [id number] 10/23/2028 [id number] / [id number] / [id number] Restrictor Cement Lynn 25mm Distal Fem Hip Recon Surgery St - [id number] Implanted:Qty: 1 on 02/17/2024 by Augustine Ceja MD at [facility] Total Joint Implant Right: Hip [employer] 09/19/2033 [id number] / [id number] / [id number] Hip Head Unipolar Cocr 53mm Unitrax [id number] - [id number] Implanted:Qty: 1 on 02/17/2024 by Augustine Ceja MD at [facility] Total Joint Implant Right: Hip [employer] [id number] 02/07/2028 6942-5-05 / 6942-5-05 [id number] Hip Taper Sleeve Standard Offset Femoral V40 [id number] - [id number] Implanted:Qty: 1 on 02/17/2024 by Augustine Ceja MD at [facility] Total Joint Implant Right: Hip [employer] [id number] 11/05/2028 6942-6-06 6942-6-06 [id number] Procedures Procedure Name Priority Date/Time Associated Diagnosis [...] fracture, initial encounter ([facility]) XR HIP LEFT 1 VIEW Routine 02/17/2024 15 :20 EST Closed right hip fracture, initial encounter ([facility]) ANESTHESIA ARTERIAL LINE PLACEMENT Routine 02/17/2024 13:05 EST ANESTHESIA SPINAL BLOCK Routine 02/17/20 24 12:25 EST OPEN TREATMENT, FRACTURE, FEMUR, NECK, WITH INTERNAL FIXATION OR INSERTION OF PROSTHETIC 02/17/2024 11:44 EST Closed right hip fracture, initial encounter ([facility]) PROTIME STAT 02/17/2024 11:41 EST POCT [...] 03/04/2024 11:3 9 EST us Scan 2 Chargemaster Specialist PROCEDURE/MINOR SURGICAL OR DERABLES Final Result * ECG REPORT - SCANNED (03/04/2024 9:35 EST) 03/04/2024 9:35 EST us Scan 2 Chargemaster Specialist PROCEDURE/MINOR SURGICAL OR DERABLES Final Result * ECG REPORT - SCANNED (02/28/2024 10:36 EST) 02/28/2024 10:3 6 EST us Scan 2 Chargemaster Specialist PROCEDURE/MINOR SURGICAL OR DERABLES Final Result * [...] HEMATOLOGY & PF4 ORDERABLES F inal Result [facility] [address] [place], [place] [phone] * (ABNORMAL) BASIC METABOLIC PANEL (BMP) (02/28/2024 [...] & BLOOD GAS ORDERAB LES Final Result [facility] [address] [place] [address] * (ABNORMAL) NT PRO BNP (02/27/2024 15:55 EST) Only the most recent of2 resultswithin the time period is included. Pathologist [facility] NT-pro BNP 1,210(H) <326 pg/mL 02/27/2024 16:57 EST [facility] Comment: In the acute setting NT-proBNP values <300 pg/mL have a 98% NPV for excluding acute heart failure. In outpatient populations, NT-proBNP values <125 have a 99% NPV for excluding heart failure. Blood VENOUS BLOOD / Unknown Venipuncture / Unknown 02/27/2024 15:55 EST 02/27/2024 16:02 EST us Bryan Weiss MD CHEMISTRY & BLOOD GAS ORDERABL ES Final Result [facility] [address] [place] [address] * TRANSTHORACIC ECHO (TTE) LIMITED W/DOPPLER W/CF W/ CONTRAST (02/27/2024 14:58 EST) Pathologist [facility] LV Diastolic Volume 62 mL [facility] [...] color Doppler.The study was interpreted by [facility]. Pertinent images [...] may represent aspiration pneumonitis. Small right effusion. [id number] Narrative 02/26/2024 12:16 EST XR CHEST PORTABLE [...] findings: ??Normal. Bones: Normal. Resulting Agency Comment [id number] Procedure Note Karo Schmidt MD - 02/26/2024 [...] which may representaspiration pneumonitis. Small right effusion. [id number] Pushpa Welch MD IMG DIAGNOSTIC IMAGING ORDERA BLES Final Result * MRSA PCR (02/20/2024 5:04 EST) Only the most recent of2 resultswithin the time period is included. MRSA/Staph aureus Result No Staphylococcus aureus detected by PCR 02/20/2024 13:18 EST [facility] Swab BOTH ANTERIOR NARES / Unknown Swab / Unknown 02/20/2024 5:04 EST 02/20/2024 7:15 EST us Pete Dawson DO MICROBIOLOGY - GENERAL ORDERABLE S Final Result [facility] [address] [place] [address] * ECG REPORT - SCANNED (02/19/2024 14:12 EST) 02/19/2024 14:1 2 EST us Scan 2 Chargemaster Specialist PROCEDURE/MINOR SURGICAL OR DERABLES Final Result * XR CHEST PORTABLE 1 VIEW (02/18/2024 15:38 EST) Anatomical Region Laterality Modality Computed Radiogr aphy 02/18/2024 15:4 8 EST Impressions 02/18/2024 15:48 EST Bilateral small pleural effusions and bibasilar opacities compatible with atelectasis. [id number] Narrative 02/18/2024 15:48 EST XR CHEST PORTABLE 1 VIEW ??02/18/2024 3:24 PM Clinical History/comments: hypoxia Comparison: 02/16/2024. Technique: Single portable AP view of the chest. Findings: Lines/tubes/devices: ??None Lungs: Left greater than right basilar opacities Pleura: Bilateral pleural effusions Cardiac and mediastinal contours: Stable Soft tissues and extrathoracic findings: No acute abnormalities Bones: No acute abnormalities Resulting Agency Comment [id number] Procedure Note Gordo Palm MD - 02/18/2024 [...] pleural effusions and bibasilar opacities compatible withatelectasis. [id number] Marcos Quintero MD IMG DIAGNOSTIC IMAGING OR DERABLES Final Result * VITAMIN D (25,OH) (02/18/2024 6:28 EST) 25OH Vitamin D Tot 38 30 - 100 ng/mL 02/19/2024 10:50 EST [facility] Comment: Vitamin D 25,OH Interpretive Ranges: Deficiency: ??<10.0 ng/mL Insufficiency: ??10.0 - 30.0 ng/mL Sufficiency: ??30.0 - 100.0 ng/mL Toxicity: ??>100.0 ng/mL Blood VENOUS BLOOD / Unknown Venipuncture / Unknown 02/18/2024 6:28 EST 02/18/2024 6:38 EST Marcos Quintero MD CHEMISTRY & BLOOD GAS ORD ERABLES Final Result [facility] [address] [place] [address] * (ABNORMAL) COMPREHENSIVE METABOLIC PANEL (CMP) (02/18/2024 6:28 EST) Only the most recent of4 resultswithin the time period is included. Sodium 134(L) 136 - 145 mmol/L 02/18/2024 7:09 [facility] Potassium 4.5 3.5 - 5.0 mmol/L 02/18/2024 7:09 [facility] Chloride 97 96 - 110 mmol/L 02/18/2024 7:09 [facility] CO2 Total 36(H) [...] CHEMISTRY & BLOOD GAS ORDERABLES Final Result [facility] [address] [place], [place] [id number] * POCT GLUCOSE, INTERFACED (02/17/2024 17:48 EST) Only the most recent of5 resultswithin the time period is included. Glucose, POC 84 70 - 100 mg/dL 02/17/2024 17:49 EST [facility] HN LAB POC COMMENT (GLUCOSE) Test Performed by Nursing Services 02/17/2024 17:49 EST [facility] Blood CAPILLARY BLOOD / Unknown 02/17/2024 17:48 EST 02/17/2024 17:49 EST us Pete Dawson DO POINT OF CARE TEST ORDERABLES Fi nal Result [facility] [address] [place] [address] * XR HIP RIGHT 1 VIEW (02/17/2024 15:20 EST) Anatomical Region Laterality Modality Lower Extremities Right Computed Radio graphy 02/17/2024 16:1 3 EST Impressions 02/17/2024 16:13 EST FINDINGS/IMPRESSION: 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 No periprosthetic fracture is seen. No acute left hip abnormality is seen. Atherosclerotic calcifications are present bilaterally. [id number] Narrative 02/17/2024 16:13 EST XR HIP RIGHT [...] abnormality is seen. Atherosclerotic calcifications arepresent bilaterally. [id number] Augustine Ceja MD [facility] OR DERABLES Final Result * XR HIP LEFT 1 VIEW (02/17/2024 15:20 EST) Anatomical Region Laterality Modality Lower Extremities Left Computed Radio graphy 02/17/2024 16:1 3 EST Impressions 02/17/2024 16:13 EST FINDINGS/IMPRESSION: 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 No periprosthetic fracture is seen. No acute left hip abnormality is seen. Atherosclerotic calcifications are present bilaterally. [id number] Narrative 02/17/2024 16:13 EST XR HIP RIGHT [...] of the lower pelvis. Resulting Agency Comment [id number] Procedure Note Gordo Palm MD - 02/17/2024 [...] abnormality is seen. Atherosclerotic calcifications arepresent bilaterally. [id number] Augustine Ceja MD [facility] OR DERABLES Final Result * [place] ARTL CATHJ/CANNULJ MNTR/TRANSFUSION SPX PRQ (02/17/2024 13:05 [...] Jason Morse MD ANESTHESIA ORDERABLES Final Result [facility] * [place] AN SPINAL BLOCK - CATHETER (02/17/2024 12:25 EST) Narrative Lio Billings AA - 02/17/2024 12:25 EST Lio Billings AA ? 02/17/2024 12:28 Spinal Block Start time: 02/17/2024 12:27 End time: 02/17/2024 12:27 Reason for Procedure: ??surgical anesthesia Staffing Performed: resident/MEDIA ASSISTANT/JERRI and anesthesiologist Performed by: Lio Billings AA [...] 0.9 - 1.1 Ratio 02/17/2024 12:08 EST [facility] Pro Time 11.2 9.7 - 12.8 secs 02/17/2024 12:08 EST [facility] Blood VENOUS BLOOD / Unknown Venipuncture / Unknown 02/17/2024 11:41 EST 02/17/2024 11:50 EST Narrative [facility] - 02/17/2024 12:08 EST Moderate Intensity Coumadin INR = 2.0-3.0 Adjustments in anticoagulant therapy dose should be based on the INR and NOT on the Protime. Jason Morse MD HEMATOLOGY & PF4 ORDERABLES Final Result Performing Organization Address City/[facility] [address]/ZIP Co de Phone Number [facility] [address] [place] [phone] * MAGNESIUM (02/17/2024 5:58 EST) Magnesium 2.1 1.7 - 2.8 mg/dL 02/17/2024 7:11 EST [facility] Blood VENOUS BLOOD / Unknown Venipuncture / Unknown 02/17/2024 5:58 EST 02/17/2024 6:07 EST Marti Horn MD CHEMISTRY & BLOOD GAS ORDERABLES Final Result [facility] [address] [place] [address] * TYPE AND SCREEN (02/16/2024 20:00 EST) ABO O 02/16/2024 21:54 EST [facility] B[facility]OD BANK Rh Factor Positive 02/16/2024 21:54 EST [facility] BLOOD BANK Antibody Screen Negative 02/16/2024 21:54 EST [facility]LOOD [facility] Specimen Expires: 02/19/2024 @ 23:59 02/16/2024 21:54 EST [facility] BLOOD BANK Blood VENOUS BLOOD / Unknown Venipuncture / Unknown 02/16/2024 20:00 EST 02/16/2024 20:09 EST us Ritesh Cardenas MD BLOOD BANK TESTS Edited Resul t - Final [facility] [address] [place] [address] * CT ANGIO CHEST PE PROTOCOL (02/16/2024 [...] above interpretation and agree with the findings. [id number] Narrative 02/17/2024 10:[address] ANGIO CHEST [...] lesions. Multilevel degenerative changes. Resulting Agency Comment [id number] Procedure Note Sonia Salazar MD - 02/17/2024 [...] the above interpretation andagree with the findings. [id number] us Pete Dawson DO IMG CT ORDERABLES Final Result * XR HIP RIGHT 1 VIEW (02/16/2024 17:54 EST) Anatomical Region Laterality Modality Lower Extremities Right Computed Radio graphy 02/16/2024 18:2 7 EST Impressions 02/16/2024 18:27 EST Findings/impression: Redemonstrated right femoral neck fracture, not significantly changed. No left- sided hip fracture or dislocation. Mild degenerative changes of the left hip. The soft tissues are unremarkable. [id number] Narrative 02/16/2024 18:27 EST XR HIP LEFT 2-3 VIEWS OPTIONAL PELVIS, XR HIP RIGHT 1 VIEW ??02/16/2024 5:52 PM Signs and Symptoms/Comments: right hip pain Comparison: Pelvic x-ray 02/15/2024. Technique: AP orthopedic view of the pelvis which includes an AP view of both hips, with additional AP view of the left hip. Resulting Agency Comment [id number] Procedure Note Sonia Salazar MD - 02/16/2024 [...] theleft hip. The soft tissues are unremarkable. [id number] Ritesh Cardenas MD [facility] ORDERA BLES Final Result * XR HIP LEFT 2-3 VIEWS OPTIONAL PELVIS (02/16/2024 17:52 EST) Anatomical Region Laterality Modality Lower Extremities Left Computed Radio graphy 02/16/2024 18:2 7 EST Impressions 02/16/2024 18:27 EST Findings/impression: Redemonstrated right femoral neck fracture, not significantly changed. No left- sided hip fracture or dislocation. Mild degenerative changes of the left hip. The soft tissues are unremarkable. [id number] Narrative 02/16/2024 18:27 EST XR HIP LEFT [...] theleft hip. The soft tissues are unremarkable. [id number] Ritesh Cardenas MD [facility] ORDERA BLES Final Result * (ABNORMAL) PROCALCITONIN (02/16/2024 17:00 EST) Procalcitonin 0.96(H) See Note ng/mL 02/16/2024 18:25 EST [facility] Comment: NOTE: Reference Range: <0.5 ng/mL - Low risk of severe sepsis >2.0 ng/mL - High risk of severe sepsis Blood VENOUS BLOOD / Unknown Venipuncture / Unknown 02/16/2024 17:00 EST 02/16/2024 17:15 EST us Pete Miller DO CHEMISTRY & BLOOD GAS ORDERABLES Final Result Performing Organization Address [facility] Co de Phone Number [facility] [address] [place] [address] * (ABNORMAL) PTT (02/16/2024 17:00 EST) PTT 20(L) 26 - 37 secs 02/16/2024 18:17 EST [facility] Blood VENOUS BLOOD / Unknown Venipuncture / Unknown 02/16/2024 17:00 EST 02/16/2024 17:30 EST Ritesh Cardenas MD HEMATOLOGY & PF4 ORDERABLES F inal Result Performing Organization Address City/[facility] [address]/[facility] Co de Phone Number [facility] [address] [place] [address] * HEPARIN LEVEL - UNFRACTIONATED HEPARIN (02/16/2024 17:00 EST) Heparin Level-UFH 0.05 Therapeutic Range: 0.30 - 0.70 IU/mL 02/16/2024 18:22 EST [facility] Comment:Unfractionated hepar in [...] 17:00 EST 02/16/2024 17:30 EST us Pete Dawson DO HEMATOLOGY & PF4 ORDERABLES Saadia l Result Performing Organization Address [facility]/ZIP Co de Phone Number [facility] [address] [place] [address] * (ABNORMAL) HEMOGLOBIN A1C (02/16/2024 17:00 EST) Hemoglobin A1c 6.1(H) <5.7 % 02/16/2024 21:15 EST [facility] Comment: Glycemic Status References: Normal: ??<5.7% Pre-Diabetes: ??5.7% - 6.4% Diagnostic of Diabetes: ??> or = 6.5% (if confirmed) Est Avg Glucose 128 mg/dL 21:15 EST [facility] Comment:The eAG represents t he A1c result expressed as average glucose in mg/dL. Blood VENOUS BLOOD / Unknown Venipuncture / Unknown 02/16/2024 17:00 EST 02/16/2024 17:16 EST Pete Miller DO CHEMISTRY & BLOOD GAS ORDERABLES Final Result Performing Organization Address [facility] Co de Phone Number [facility] [address] [place] [address] * EKG 12-LEAD (02/16/2024 16:44 EST) 02/16/2024 16:4 4 EST Narrative [facility] EKG - 02/28/2024 10:28 EST ? [facility] ? Test Date: ?2024-02-16 Pat Name: ? BI SUE ? Department: ?? [facility] 4 ? Room: ? M415 Gender: ? Male ? Document Control Coordinator: ?? : ?1940 ? Requested By: HEARD PETE Order Number: [id number] ? Zulay MD: ?? IMANI LOMAS MD ? Measurements Intervals ?[place] ? Rate: ? 104 ?P: ?73 [place]: ? 147 ?QRS: ?-58 QRSD: ? 127 [...] Note Imani Lomas MD - 02/28/[address] [facility] Test Date: 2024-02-16 Pat Name: BI SUE Department: [place] [address] Room: [facility] Gender: Male Document Control Coordinator: : 1940 Requested By: JESUS FREEMAN Order Number: [id number] Reading MD: IMANI LOMAS MD Measurements Intervals [place] Rate: 104 P: 73 [place]: 147 QRS: -58 QRSD: 127 T: 61 [...] preliminary report. Edited by CRISTELA TERRY MD [id number] 20:18:03 EST. I reviewed the tracing and have either agreed or edited the findings inthis report. Electronically Signed On 02-28-2024 10:28:35 EST by CAPO CLEMONS. us Pete Miller DO CARDIAC ECG ORDERABLES Final Res ult [facility] EKG * EXPANDED RESPIRATORY VIRAL [...] MICROBIOLOGY - GENERAL ORDERABLE S Final Result [facility] [address] [place] [address] * MRSA PCR (02/16/2024 11:36 EST) Pathologist [facility] MRSA PCR Not Detected Not Detected 02/16/2024 13:27 EST [facility] Comment:MRSA target DNA is n ot detected (presumed not colonized with MRSA). Swab BOTH ANTERIOR NARES / Unknown Swab / Unknown 02/16/2024 11:36 EST 02/16/2024 11:45 EST us Dominique Goldstein MD MICROBIOLOGY - GENERAL ORDERABLE S Final Result [facility] [address] [place] [address] * STREPTOCOCCUS PNEUMONIAE ANTIGEN, URINE (02/16/2024 11:36 EST) Strep Pneumo Ag Detection, Urine Negative Negative 02/16/2024 12:33 EST [facility] Urine URINE / Unknown Urine Collect / Unknown 02/16/2024 11:36 EST 02/16/2024 11:45 EST [facility] - 02/16/2024 12:33 EST Presumptive negative for pneumococcal pneumonia, suggesting no current or recent infection. ??Infection due to S.pneumoniae cannot be ruled out since the antigen present in the sample may be below detection limit of the test. Dominique Goldstein MD MICROBIOLOGY - GENERAL ORDERABLE S Final Result Performing Organization Address [facility] Co de Phone Number [facility] [address] [place] [address] * LEGIONELLA ANTIGEN DETECTION, URINE (02/16/2024 11:36 EST) Legionella Antigen Detection Negative Negative 02/16/2024 12:33 EST [facility] Urine URINE / Unknown Urine Collect / Unknown 02/16/2024 11:36 EST 02/16/2024 11:45 EST [facility] - 02/16/2024 12:33 [...] ORDERABLE S Final Result Performing Organization Address [facility] [address]/ZIP Co de Phone Number [facility] [address] [place] [address] * XR CHEST PORTABLE 1 VIEW (02/16/2024 10:59 EST) Anatomical Region Laterality Modality Computed Radiogr aphy 02/16/2024 11:0 5 EST Impressions 02/16/2024 11:05 EST Small bilateral pleural effusions. Slight interval increase in patchy airspace opacities at both lung bases and in the suprahilar right lung. [id number] Narrative 02/16/2024 11:05 EST XR CHEST PORTABLE [...] findings: ??Normal. Bones: Normal. Resulting Agency Comment [id number] Procedure Note Aaron Boone MD - 02/16/2024 [...] bases and in the suprahilar right lung. [id number] us Leda Ng MD IM DIAGNOSTIC IMAGING OR DERABLES Final Result * ECG REPORT - SCANNED (02/16/2024 10:05 EST) 02/16/2024 10:0 5 EST us Scan 2 [employer] Specialist PROCEDURE/MINOR SURGICAL OR DERABLES Final Result * (ABNORMAL) TROPONIN I (02/16/2024 9:34 EST) Only the most recent of3 resultswithin the time period is included. Troponin I (ng/mL) 0.244(H) <0.034 ng/mL 02/16/2024 10:14 EST [facility] Blood VENOUS BLOOD / Unknown Venipuncture / Unknown 02/16/2024 9:34 EST 02/16/2024 9:40 EST Narrative [facility] - 02/16/2024 10:14 EST The results of this assay can be falsely lowered due to the consumption of Biotin. us Krystian Anne MD CHEMISTRY & BLOOD GAS ORDERAB LES Final Result [facility] [address] [place] [address] * TRANSTHORACIC ECHO (TTE) COMPLETE W/DOPPLER W/CF NO CONTRAST (02/16/2024 6:35 EST) Pathologist [facility] Triscuspid Valve Regurgitation Peak Gradient 73.5 mmHg [...] Images were obtained using cardiac ultrasound machine [id number]. us Homer Tan MD CARDIAC ECHO ORDERABLES [...] -2 - 3 mmol/L 02/16/2024 5:43 EST [facility] Blood VENOUS BLOOD / Unknown 02/16/2024 5:41 EST 02/16/2024 5:43 EST Narrative [facility] - 02/16/2024 5:43 EST Test Performed by Respiratory us Lacey Hassan DO POINT OF CARE TEST ORDERABL ES Final Result Performing Organization Address [facility] [address] [facility] Co de Phone Number [facility] [address] [place] [address] * CK (02/16/2024 5:37 EST) Only the most recent of2 resultswithin the time period is included. CK 114 <=250 U/L 02/16/2024 6:05 EST [facility] Comment:Moderate hemolysis i dentified, interpret with caution as results may be affected due to hemolysis. Blood VENOUS BLOOD / Unknown Venipuncture / Unknown 02/16/2024 5:37 EST 02/16/2024 5:43 EST us Krystian Anne MD CHEMISTRY & BLOOD GAS ORDERAB LES Final Result Performing Organization Address [facility] [address] [place] [address] * HN LAB CBC SMEAR REVIEW (02/16/2024 5:36 EST) Differential Comment Slide was examined by a technologist to verify the WBC and/or platelet count. 02/16/2024 6:01 EST [facility] Blood VENOUS BLOOD / Unknown Venipuncture / Unknown 02/16/2024 5:36 EST 02/16/2024 5:43 EST us Homer Tan MD HEMATOLOGY & PF4 ORDERABLES Fin al Result Performing Organization Address [facility] [address] [facility] Co de Phone Number [facility] [address] [place] [address] * EKG 12-LEAD (02/15/2024 16:26 EST) 02/15/2024 16:2 6 EST [facility] - 02/16/2024 9:57 EST ? [facility] ? Test Date: ?2024-02-15 Pat Name: ? BI SUE ? Department: ? Room: ? 305 Gender: ? Male ? Document Control Coordinator: ?? CS : ?1940 ? Requested By: YURY DOMINIQUE Order Number: [id number] ? Reading MD: ?? CARLOS ALBERTO REYNOLDS MD ? Measurements Intervals ?[place] ? Rate: ? 110 ?P: ?77 [place]: ? 138 ?QRS: ?-19 QRSD: ? 120 [...] Note Carlos Alberto Reynolds MD - 02/16/2024 [facility] Test Date: 2024-02-15 Pat Name: BI SUE Department: Room: [facility] Gender: Male Document Control Coordinator: : 1940 Requested By: YURY NAYLOR Order Number: [id number] Zulay MD: CARLOS ALBERTO REYNOLDS MD Measurements Intervals [place] Rate: 110 P: 77 [place]: 138 QRS: -19 QRSD: 120 T: 84 [...] Final Res ult [facility] * HOLD LAVENDER TOP (02/15/2024 15:19 EST) Hold Hold 02/15/2024 16:31 [facility] Blood VENOUS BLOOD / Unknown Venipuncture / Unknown 02/15/2024 15:19 EST 02/15/2024 15:25 EST us Krystian Anne MD LAB INFO SERVICE AND SUPPORT & PHONE RESULT Final Result Performing Organization Address City/[facility] [address]/ZIP Co de Phone Number [facility] [address] [place] [address] * HOLD GREEN TOP (02/15/2024 15:19 EST) Hold Hold 02/15/2024 16:31 [facility] Blood VENOUS BLOOD / Unknown Venipuncture / Unknown 02/15/2024 15:19 EST 02/15/2024 15:25 EST us Krystian Anne MD LAB INFO SERVICE AND SUPPORT & PHONE RESULT Final Result Performing Organization Address City/[facility] [address]/ZIP Co de Phone Number [facility] [address] [place] [address] * (ABNORMAL) COMPLETE BLOOD COUNT AND DIFFERENTIAL [...] PROBE ORDERABLES Final Result Performing Organization Address City/[facility] [address]/ZIP Co de Phone Number [facility] [address] [place] [address] * SARS COV2, FLU A/B, RSV DETECT [...] acids are not detected. Performed on the [employer] GeneXpert Instrument Swab NASOPHARYNGEAL STRUCTURE / Unknown Swab / Unknown 02/15/2024 15:13 EST 02/15/2024 15:18 EST us Krystian Anne MD MICROBIOLOGY - GENERAL ORDERA BLES Final Result Performing Organization Address City/[facility] [address]/ZIP Co de Phone Number [facility] [address] [place] [address] * CT OUTSIDE IMAGES ABDOMEN PELVIS (02/15/2024 [...] from Last 3 Months Insurance MEDICARE MEDICARE [facility] Advance Directives For more information, please contact: [phone] * Limitation of Treatment (Latest Code Status [...] Made the Decision? Default/Not Discussed Care Teams Cord Maker Relationship Specialty Start Date End Date Suzie Quan MD [address] [place] [id number] PCP - General Family Medicine - Primary Care 02/15/24
--- OUTSIDE RECORDS SUMMARY | 2024-04-01 21:03 | XMS_ITS | Encounter Summary ---
Author Organization [facility] Address [address] [place] [address] Care Team Providers Care Lap Checker Name Role Phone Suzie Quan MD Primary Care Provider [phone] Reason for Visit * Reason Onset Date [...] st Contact Info) Description 02/23/2024 Telephone [facility] Endocrinology - [facility] [address] [place] [address] Farnaz Rivas, DO [address] [facility] [address] [place] [address] Appointment Related (Called and left [...] drink = 0.6 oz pur e alcohol) [facility] Utilities Answer Date Recorded In the past 12 months has th e electric, gas, oil, or water adjust threatened to shut off services in your [...] any time in the past 12 m [facility], were you homeless or living in a [place] health care facility (including now)? No 02/16/2024 [facility] - Inadequate Housing Answer Date Re corded What is your living situation today? I have a [facility] place to live 02/20/2024 Think about the [...] Ashley Rae MA - 02/26/2024 1042 EST [facility] called appeals writer back. Spoke with Aria from PCP [...] Contact Info) Description 04/05/2024 10:15 EST Appointment [facility] Xray [address] [place] [phone] 04/05/2024 10:30 EST Post-op Visit [facility] Orthopedic Trauma - [address] [phone] Ko Marquis PA-C [address] [place] [address] documented as of this encounter Visit Diagnoses Not on filedocumented in this encounter Care Teams Lap Checker Relationship Specialty Start Date End Date Suzie Quan MD [address] [place] [phone] PCP - General Family Medicine - Primary Care 02/15/24 documented as of this encounter
--- OUTSIDE RECORDS SUMMARY | 2024-04-01 21:03 | XMS_ITS | Encounter Summary ---
Author Organization [facility] Address [address] [place] [id number] Care Team Providers Care Corporate Receptionist Name Role Phone Suzie Villagomez MD Primary Care Provider [phone] Reason for Visit * Auth/Cert (Routine) Specialty Diagnoses / Procedures Referred By Conthank t Referred To Contact Diagnoses Acute hypoxic respiratory failure ([facility]) Hip fracture Referral ID Status Reason Start Date Expiration Date Visits Re quested Visits Authorized [id number] 1 1 Encounter Details Date Type Department Care Team (Late st Contact Info) Description 02/17/2024 11:30 EST - 02/17/2024 15:15 EST Surgery [facility] OR [address] [place] [address] [id number] Augustine Ceja MD [address] [place] [id number] Open treatment of right femoral neck fracture with hemiarthroplasty [00064 (CPT??)] Surgery Details Date/Time Status Location OR Service Patient Class Case Class Case Type Trauma Case? 02/17/2024 1130 Posted [facility] [place] [facility] Orthopedics Inpatient G - Less than [...] 0.6 oz pur e alcohol) [facility] Utilities Answer Date Recorded In the past [...] time in the past 12 m [facility], were you homeless or living in [...] Admit Date: 02/16/2024 Discharge Date: 02/29/24 Disposition[facility] facility[facility]Subacute rehab Reason for Admission: hip fracture Principal/Final Diagnosis: Acute hypoxic respiratory failure (HCC-CMS) Active Hospital Problems Diagnosis Date Noted *Acute hypoxic respiratory failure (HCC-CMS) 02/16/2024 PFO (patent foramen ovale) 02/27/2024 Atrial fibrillation ([facility]) 02/26/2024 Urinary retention 02/26/2024 Hypertension 02/26/2024 Thrush 02/26/2024 Osteoporosis with current pathological fracture 02/22/2024 Pulmonary hypertension ([facility]) 02/16/2024 Chronic obstructive pulmonary disease ([facility]) 02/16/2024 Closed right hip fracture, initial encounter ([facility]) 02/15/2024 Resolved Hospital Problems No resolved problems to display. Condition at Discharge: Improved Clinical Issues Needing Follow-up: -Needs osteoporosis treatment post DC, ortho placed referral to the Fracture Liaison Service with [facility] Endocrinology - 2 weeks postoperative wound check to be completed by rehabilitation or orthopedic MD/CHAVA. - 6 weeks postoperative follow-up with orthopedic trauma clinic for repeat clinical and radiographic evaluation. (Referral placed for [facility] follow up - could explore placing referral [...] GERD, and HTN, who was transferred from [facility] to [facility] and then [facility] for surgical management of a right femoral [...] which may represent aspiration pneumonitis. Smallright effusion. [id number] XR CHEST PORTABLE 1 VIEW Result Date: 02/18/2024 Bilateral small pleural effusions and bibasilar opacities compatible with atelectasis. [id number] XR HIP RIGHT 1 VIEW Result Date: 02/17/2024 FINDINGS/IMPRESSION: 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 No periprosthetic fracture is seen. No acute left hip abnormality is seen. Atherosclerotic calcifications arepresent bilaterally. [id number] XR HIP LEFT 1 VIEW Result Date: 02/17/2024 FINDINGS/IMPRESSION: 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 No periprosthetic fracture is seen. No acute left hip abnormality is seen. Atherosclerotic calcifications arepresent bilaterally. [id number] CT ANGIO CHEST PE PROTOCOL Result Date: [...] above interpretation and agree with the findings. [id number] XR HIP RIGHT 1 VIEW Result Date: 02/16/2024 Findings/impression: Redemonstrated right femoral neck fracture, not significantly changed. No left-sided hip fracture or dislocation. Mild degenerative changes of the left hip. The soft tissues are unremarkable. [id number] XR HIP LEFT 2-3 VIEWS OPTIONAL PELVIS Result Date: 02/16/2024 Findings/impression: Redemonstrated right femoral neck fracture, not significantly changed. No left-sided hip fracture or dislocation. Mild degenerative changes of the left hip. The soft tissues are unremarkable. [id number] XR CHEST PORTABLE 1 VIEW Result Date: 02/16/2024 Small bilateral pleural effusions. Slight interval increase in patchy airspace opacities at both lung bases and in the suprahilar right lung. [id number] No Known Allergies There is no immunization history for the selected administration types on file for this patient. Results Pending at Discharge Test results still pending from this admission None Follow-up appointments and procedures Amb Consult/Follow Up Orthopedics - [facility] Scheduling Comments (optional - describe specific scheduling [...] in this encounter Progress Notes * Julianne Pascla - 02/29/2024 0925 EST CM Discharge Note CASE MANAGEMENT DISCHARGE NOTE DISCHARGE DATE/TIME: 02/29/24 11:15-12:00 [address]: [facility] [address] [place] [id number] (If discharging to [facility]) COVID swab ordered and completed: na TRANSPORTATION: [facility] ACCEPTING MD AND NUMBER: na RN REPORT/UNIT: [phone] RATTLING MACHINE TENDER/CHARGE/MD NOTIFIED (Y/N): Y FORMS: (Acute to acute, COLST, MOLST, KEON, Screen, PASRR, Ambulance): COLST,PASRR, Ambulance form, LENA IM SIGNED (Y/NA): na HOME HEALTH: [facility] - services on hold DME: [employer] PHARMACY/PRESCRIPTIONS: facility MEDS TO BEDS UTILIZED : NO Patient and/or family who participated in discharge plan: patient and granddaughter Dang TAMMY Navarrete Chief Creative Officer II Epic chat preferred. 02/26/2024 11:57 * [...] and plan for his transition to [facility]. Called and updated granddaughter Dang. Review of [...] hypertension who transferred to our institution from [facility] with a right femoral neck fracture [...] for movement to get him to [facility]. Case discussed today with RT, RN and [...] today so able to go to [facility] with this tentatively tomorrow - outpatient pulm/cards [...] referral to the Fracture Liaison Service with [facility] Endocrinology - Vit D 2000U/d, tylenol and dilaudid for pain Thrush - nystatin swish and spit Urinary retention CHRISTIANO - resolved to baseline - failed a few lweis trials, tamsulosin started 02/25 and can retrial at [facility]/urology o/p Afib with RVR - new this hospitalization, not on AC outpatient - confirmed with 02/25 his med list - apixaban 2.5 BID started this hospital stay. Would benefit from o/p holter to assess frequency - AIRPORT TRAFFIC [employer]ER metoprolol, received amio in the ICU Chronic comorbidities HTN - home metoprolol, amlodpine 10mg on hold GERD - home protonix HLD/CAD - home ASA Incidental findings Spiculated lung nodule seen on CT chest - needs repeat imaging 1 month post treatment outpatient toensure resolution VTE Prophylaxis apixaban Discharge Plan [facility] - if stable respiratory status on potential [...] decreased Response: Mild response, increase subjective per JACQUARD LOOM CARPET WEAVER Pulse: <100 Resp Rate: 18-25 SOB: With [...] edema positive pulses bilat Genitourinary: normal findings: lweis in place Is PICC or central line [...] hypertension who transferred to our institution from [facility] with a right femoral neck fracture [...] referral to the Fracture Liaison Service with [facility] Endocrinology - Vit D 2000U/d, tylenol and dilaudid for pain Thrush - nystatin swish and spit Urinary retention CHRISTIANO - resolved to baseline - failed a few lewis trials, tamsulosin started 02/25 and can retrial 02/27 vs at [facility]/urology o/p Afib with RVR - new this hospitalization, not on AC outpatient - confirmed with 02/25 his med list - apixaban 2.5 BID started this hospital stay. Would benefit from o/p holter to assess frequency - AIRPORT TRAFFIC [employer]OLLER metoprolol, received amio in the ICU Chronic [...] decreased Response: Mild response, increase subjective per JACQUARD LOOM [employer]PET WEAVER Pulse: <100 Resp Rate: <18 SOB: With [...] Julianne Pascal - 02/27/2024 0943 EST [facility] Department of Case Management and Social [...] on oximizer Plan Patient [facility] bed [facility]. Transfer by ambulance on Monday was postponed due toconcern for stability. Plan is to switch patient to oximizer, observe for a day[facility] pending confirmation from ST. that they can support oximizer and hold bed until . [employer] TAMMY Navarrete Chief Creative Officer II Epic chat preferred. 02/27/2024 9:43 02/27/24 [...] - but states home health would. Called [facility] who confirmed the following meds: [...] hypertension who transferred to our institution from [facility] with a right femoral neck fracture [...] referral to the Fracture Liaison Service with [facility] Endocrinology - Vit D 2000U/d, tylenol and dilaudid for pain Thrush - nystatin swish and spit Urinary retention CHRISTIANO - resolved to baseline - failed a few lewis trials, tamsulosin started 02/25 and can retrial 02/27 vs at [facility]/urology o/p Afib with RVR - new this hospitalization, not on AC outpatient - confirmed with HH 02/25 his med list - apixaban 2.5 BID started this hospital stay. Would benefit from o/p holter to assess frequency - [employer]PORT [employer]IC [employer]OLLER metoprolol, received amio in the ICU Chronic comorbidities HTN - home metoprolol, amlodpine 10mg on hold GERD - home protonix HLD/CAD - home ASA Incidental findings Spiculated lung nodule seen on CT chest - needs repeat imaging 1 month post treatment outpatient toensure resolution VTE Prophylaxis apixaban Discharge Plan [facility] - if stable respiratory status as early [...] Progress Note Patient scheduled to transfer to [facility] H&R postponed by provider as precaution to [id number] stability. [facility]. Confirmed that if he is confirmed to be stable, they can take him tomorrow. CM cancelled ambulance ride and will reschedule in the morning as appropriate. CM notified granddaughter Dang. CM will continue to follow and coordinate safe discharge. TAMMY Navarrete Chief Creative Officer II Epic chat preferred. 02/26/2024 12:00 * Laine Coe, PT - 02/26/2024 3830 EST [facility] Rehabilitation Therapy Acute Therapy [facility] ADDENDUM: This addendum is intended as [...] admission. He has been dc to [facility] 02/28 to further progress functionalindep and maximize [...] Completed Today: Physical Therapy Today At: Time: [id number] minutes Present for the Therapy Session Comments: [...] During therapy session, After therapy session By: [id number] communication Additional communication about Patient Status and [...] effusions and bibasilar opacities compatible with atelectasis. [id number] XR HIP RIGHT 1 VIEW Result Date: 02/17/2024 FINDINGS/IMPRESSION: 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 No periprosthetic fracture is seen. No acute left hip abnormality is seen. Atherosclerotic calcifications arepresent bilaterally. [id number] XR HIP LEFT 1 VIEW Result Date: 02/17/2024 FINDINGS/IMPRESSION: 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 No periprosthetic fracture is seen. No acute left hip abnormality is seen. Atherosclerotic calcifications arepresent bilaterally. [id number] CT ANGIO CHEST PE PROTOCOL Result Date: [...] above interpretation and agree with the findings. [id number] XR HIP RIGHT 1 VIEW Result Date: 02/16/2024 Findings/impression: Redemonstrated right femoral neck fracture, not significantly changed. No left-sided hip fracture or dislocation. Mild degenerative changes of the left hip. The soft tissues are unremarkable. [id number] XR HIP LEFT 2-3 VIEWS OPTIONAL PELVIS Result Date: 02/16/2024 Findings/impression: Redemonstrated right femoral neck fracture, not significantly changed. No left-sided hip fracture or dislocation. Mild degenerative changes of the left hip. The soft tissues are unremarkable. [id number] XR CHEST PORTABLE 1 VIEW Result Date: 02/16/2024 Small bilateral pleural effusions. Slight interval increase in patchy airspace opacities at both lung bases and in the suprahilar right lung. [id number] Assessment/Plan Assessment Noe Sue is a 83 y.o. male with a PMHx of COPD (3-5L home oxygen), possible AF (he denies ever being told he has AF), GERD, and HTN, who was transferred from [facility] to [facility] and then [facility] for surgical management of a right femoral [...] Symbicort q12h (LABA/ICS), spiriva daily to replace AIRPORT TRAFFIC [employer]OLLER LAMA - Hold AIR[employer] TRAFFIC [employer]OLLER Anoro Ellipta (LAMA/LABA) - Wean off of supplemental O2 as tolerated - Maintain SpO2 88-92% - RT following, airway clearance - On discharge would need good pulmonology FU, could benefit from pulmonary rehab. Severe pulmonary HTN with RV failure Suspect group 3 pulm HTN (2/2 lung disease) S/p lasix 160 mg and 5 mg metolazone 02/16/24 at [facility] prior to transfer. Multiple doses of IV lasix given, titrated to kidney function and respiratory function. - Oral diuresis with lasix 20mg. CHRISTIANO resolved. Patient's creatinine on admission 2.54, baseline Cr about 1 per note from [facility]. - Daily BMP - Strict I/Os Urinary Retention Denies retention at home but has thus far failed void trial 02/18, 02/22 - lewis was replaced 02/24, likely can do void trial in 1-2 days to see if retention is improved bytamsulosin - tamsulosin 0.4 at bedtime. Afib with RVR Patient denies h/o AF or taking eliquis, but report from [facility] said his last dose of eliquis was 02/13). EDGAR-VASc score of 4 with 4.8% stroke risk. - Started Eliquis 2.5mg BID (dose reduced given pt's advanced age, serum Cr., and weight) - Dc'd Telemetry monitoring d/t stable rate control over the past several days, low threshold to restart if rates sustained >110. - Continue [employer]IC [employer]ER metoprolol XL 25 mg daily Right femoral [...] referral to the Fracture Liaison Service with [facility] Endocrinology - Vit D 2000U/d - PT recs TANI Chronic: HTN - Cont [employer]PORT [employer]FFIC [employer]OLLER metoprolol XL 25 mg daily - Holding AIRPORT TRAFFIC [employer]OLLER amlodipine 10 mg daily GERD - AIR[employer]IC [employer]OLLER pantoprazole 40/d Constipation, resolved VTE Prophylaxis: apixaban [...] decreased Response: Mild response, increase subjective per JACQUARD LOOM CARPET WEAVER Pulse: <100 Resp Rate: 18-25 SOB: With [...] effusions and bibasilar opacities compatible with atelectasis. [id number] XR HIP RIGHT 1 VIEW Result Date: 02/17/2024 FINDINGS/IMPRESSION: 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 No periprosthetic fracture is seen. No acute left hip abnormality is seen. Atherosclerotic calcifications arepresent bilaterally. [id number] XR HIP LEFT 1 VIEW Result Date: 02/17/2024 FINDINGS/IMPRESSION: 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 No periprosthetic fracture is seen. No acute left hip abnormality is seen. Atherosclerotic calcifications arepresent bilaterally. [id number] CT ANGIO CHEST PE PROTOCOL Result Date: [...] above interpretation and agree with the findings. [id number] XR HIP RIGHT 1 VIEW Result Date: 02/16/2024 Findings/impression: Redemonstrated right femoral neck fracture, not significantly changed. No left-sided hip fracture or dislocation. Mild degenerative changes of the left hip. The soft tissues are unremarkable. [id number] XR HIP LEFT 2-3 VIEWS OPTIONAL PELVIS Result Date: 02/16/2024 Findings/impression: Redemonstrated right femoral neck fracture, not significantly changed. No left-sided hip fracture or dislocation. Mild degenerative changes of the left hip. The soft tissues are unremarkable. [id number] XR CHEST PORTABLE 1 VIEW Result Date: 02/16/2024 Small bilateral pleural effusions. Slight interval increase in patchy airspace opacities at both lung bases and in the suprahilar right lung. [id number] Assessment/Plan Assessment Noe Sue is a 83 y.o. male with a PMHx of COPD (3-5L home oxygen), possible AF (he denies ever being told he has AF), GERD, and HTN, who was transferred from [facility] to [facility] and then [facility] for surgical management of a right femoral [...] Symbicort q12h (LABA/ICS), spiriva daily to replace AIRPORT TRAFFIC CONTROLLER LAMA - Hold AIRPORT TRAFFIC CONTROLLER Anoro Ellipta (LAMA/LABA) - Wean off of supplemental O2 as tolerated - Maintain SpO2 88-92% - RT following, airway clearance - On discharge would need good pulmonology FU, could benefit from pulmonary rehab. Severe pulmonary HTN with RV failure Suspect group 3 pulm HTN (2/2 lung disease) S/p lasix 160 mg and 5 mg metolazone 02/16/24 at [facility] prior to transfer. Multiple doses of IV lasix given, titrated to kidney function and respiratory function. - Oral diuresis with lasix 20mg. CHRISTIANO resolved. Patient's creatinine on admission 2.54, baseline Cr about 1 per note from [facility]. - Daily BMP - Strict I/Os Urinary Retention Denies retention at home but has thus far failed void trial 02/18 - remove lewis and repeat void trial today 02/22 Afib with RVR Patient denies h/o AF or taking eliquis, but report from [facility] said his last dose of eliquis was 02/13). EDGAR-VASc score of 4 with 4.8% stroke risk. - Started Eliquis 2.5mg BID (dose reduced given pt's advanced age, serum Cr., and weight) - Dc'd Telemetry monitoring d/t stable rate control over the past several days, low threshold to restart if rates sustained >110. - Continue [employer]FFIC [employer]OLLER metoprolol XL 25 mg daily Right femoral [...] referral to the Fracture Liaison Service with [facility] Endocrinology - Lewis catheter placed due to urinary retention, removed 02/22 - Vit D 2000U/d - PT recs TANI Chronic: HTN - Cont [employer]FFIC [employer]OLLER metoprolol XL 25 mg daily - Holding AIRPORT TRAFFIC [employer]OLLER amlodipine 10 mg daily GERD - AIRPORT TRAFFIC CONTROLLER pantoprazole 40/d Constipation - Miralax BID, senna [...] medical complexity Plan: DVT/VTE Chemoprophylaxis: Inpatient plan: AIRPORT [employer]IC [employer]ER Eliquis Discharge plan: Same Wound Care: Inpatient [...] and to the Fracture Liaison Service at [facility] endocrinology placed Pain management: Inpatient plan: Multimodal Discharge plan: Multimodal Antibiotics and other medications: Inpatient plan: Perioperative Ancef complete Discharge plan: None Diet: DIET REGULAR PT/OT: TANI Dispo: Pending TANI acceptance Orthopedics will continue to follow peripherally Russell Rodriguez MD 02/23/24 20:17 Orthopaedic Surgery, PGY-2 Pager [phone] Cosigned by Fred Fernández MD at 02/24/2024 [...] decreased Response: Mild response, increase subjective per JACQUARD LOOM CARPET WEAVER Pulse: <100 Resp Rate: 18-25 SOB: With [...] effusions and bibasilar opacities compatible with atelectasis. [id number] XR HIP RIGHT 1 VIEW Result Date: 02/17/2024 FINDINGS/IMPRESSION: 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 No periprosthetic fracture is seen. No acute left hip abnormality is seen. Atherosclerotic calcifications arepresent bilaterally. [id number] XR HIP LEFT 1 VIEW Result Date: 02/17/2024 FINDINGS/IMPRESSION: 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 No periprosthetic fracture is seen. No acute left hip abnormality is seen. Atherosclerotic calcifications arepresent bilaterally. [id number] CT ANGIO CHEST PE PROTOCOL Result Date: [...] above interpretation and agree with the findings. [id number] XR HIP RIGHT 1 VIEW Result Date: 02/16/2024 Findings/impression: Redemonstrated right femoral neck fracture, not significantly changed. No left-sided hip fracture or dislocation. Mild degenerative changes of the left hip. The soft tissues are unremarkable. [id number] XR HIP LEFT 2-3 VIEWS OPTIONAL PELVIS Result Date: 02/16/2024 Findings/impression: Redemonstrated right femoral neck fracture, not significantly changed. No left-sided hip fracture or dislocation. Mild degenerative changes of the left hip. The soft tissues are unremarkable. [id number] XR CHEST PORTABLE 1 VIEW Result Date: 02/16/2024 Small bilateral pleural effusions. Slight interval increase in patchy airspace opacities at both lung bases and in the suprahilar right lung. [id number] Assessment/Plan Assessment Noe Sue is a 83 y.o. male with a PMHx of COPD (3-5L home oxygen), possible AF (he denies ever being told he has AF), GERD, and HTN, who was transferred from [facility] to [facility] and then [facility] for surgical management of a right femoral [...] Symbicort q12h (LABA/ICS), spiriva daily to replace AIRPORT TRAFFIC [employer]OLLER LAMA - Prednisone to 40 mg daily since 02/18 (Pt has received 2x 40mg 02/14-02/15 and 2x 30 mg prednisone 02/17 -02/18), duration tbd by respiratory status. - Hold AIRPORT TRAFFIC CONTROLLER Anoro Ellipta (LAMA/LABA) - Wean off of supplemental O2 as tolerated - Maintain SpO2 88-92% - RT following, airway clearance - On discharge would need good pulmonology FU, could benefit from pulmonary rehab. Severe pulmonary HTN with RV failure Suspect group 3 pulm HTN (2/2 lung disease) S/p lasix 160 mg and 5 mg metolazone 02/16/24 at [facility] prior to transfer. Multiple doses of IV lasix given, titrated to kidney function and respiratory function. - Oral diuresis with lasix 20mg, will consider as longer term maintenance dosing. CHRISTIANO resolved. Patient's creatinine on admission 2.54, baseline Cr about 1 per note from [facility]. - Daily BMP - Strict I/Os Urinary Retention Denies retention at home but has thus far failed void trial 02/18 - remove lewis and repeat void trial today 02/22 Afib with RVR Patient denies h/o AF or taking eliquis, but report from [facility] said his last dose of eliquis was 02/13). EDGAR-VASc score of 4 with 4.8% stroke risk. - Started Eliquis 2.5mg BID (dose reduced given pt's advanced age, serum Cr., and weight) - Dc'd Telemetry monitoring d/t stable rate control over the past several days, low threshold to restart if rates sustained >110. - Continue [employer]IC [employer]OLLER metoprolol XL 25 mg daily Right femoral [...] referral to the Fracture Liaison Service with [facility] Endocrinology - Lewis catheter placed due to urinary retention - Vit D 2000U/d - PT recs TANI Chronic: HTN - Cont [employer]IC [employer]OLLER metoprolol XL 25 mg daily - Holding AIRPORT TRAFFIC [employer]OLLER amlodipine 10 mg daily GERD - AIRPORT [employer]IC [employer]OLLER pantoprazole 40/d Constipation - Miralax BID, senna 2 tabs at night VTE Prophylaxis: apixaban 2.5mg BID Code status: Limitation of Treatment DNR Do not intubate (DNI) Disposition: awaiting TANI May Mauricio MD Internal Medicine, PGY-2 Epic chat Pager [phone] Attending Attestation I interviewed and examined the patient. I have personally reviewed interval events, laboratory data, and imaging. I discussed the case with the inpatient resident team. I agree with findings and planof care as documented by the resident (or have edited in blue). Cuco Vazquez MD Internal Medicine Hospitalist 02/23/24 21:26 * Julianne Pascal - 02/23/2024 1304 EST [facility] Department of Case Management and Social Work Case Management Progress Note Patient Name Level of Care and Accommodation Code: Patient Class: Medically Ready: Y/N Noe Sue Acute General Inpatient y Primary Dx: Decisional Capacity: Y/N Primary Support/ CareGiver: Advance Directive Acute hypoxic respiratory failure ([facility]) taylor Godinez Advance Directives (For Healthcare) Healthcare [...] been deemed appropriate for placement at a intermediate facility (SNF). Listed patient at the following facilities: [facility] and [facility] Explained to patient and/or family that [...] available on Monday - E-Signature TAMMY Navarrete Chief Creative Officer II Epic chat preferred. 02/23/2024 13:08 02/23/24 [...] and to the Fracture Liaison Service at [facility] endocrinology placed Pain management: Inpatient plan: Multimodal Discharge plan: Multimodal Antibiotics and other medications: Inpatient plan: Perioperative Ancef complete Discharge plan: None Diet: DIET REGULAR PT/OT: TANI Dispo: Likely DC today Russell Rodriguez MD 02/22/24 21:31 Orthopaedic Surgery, PGY-2 Pager [phone] Cosigned by Nicholas Poole MD MPH at [...] decreased Response: Mild response, increase subjective per [employer] Pulse: <100 Resp Rate: 18-25 SOB: With [...] Gunn, PT - 02/22/2024 1632 EST [facility] Rehabilitation Therapy Acute Therapy [facility] Physical Therapy Encounter Note Date of Service: 02/22/2024 Precautions: posterior R THR precautions, WBAT RLE SUBJECTIVE: Subjective Statements Comments: patient quiet throughout session. Increased work of breathing and placed on ventimask during session. Pateint agreeable to PT assisting with back to bed. OBJECTIVE: Interventions Completed Today: Physical Therapy Today At: Time: 5932-5847 Total Treatment Time (minutes): 25 Present for [...] During therapy session, After therapy session By: [id number] communication Additional communication about Patient Status and [...] effusions and bibasilar opacities compatible with atelectasis. [id number] XR HIP RIGHT 1 VIEW Result Date: 02/17/2024 FINDINGS/IMPRESSION: 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 No periprosthetic fracture is seen. No acute left hip abnormality is seen. Atherosclerotic calcifications arepresent bilaterally. [id number] XR HIP LEFT 1 VIEW Result Date: 02/17/2024 FINDINGS/IMPRESSION: 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 No periprosthetic fracture is seen. No acute left hip abnormality is seen. Atherosclerotic calcifications arepresent bilaterally. [id number] CT ANGIO CHEST PE PROTOCOL Result Date: [...] above interpretation and agree with the findings. [id number] XR HIP RIGHT 1 VIEW Result Date: 02/16/2024 Findings/impression: Redemonstrated right femoral neck fracture, not significantly changed. No left-sided hip fracture or dislocation. Mild degenerative changes of the left hip. The soft tissues are unremarkable. [id number] XR HIP LEFT 2-3 VIEWS OPTIONAL PELVIS Result Date: 02/16/2024 Findings/impression: Redemonstrated right femoral neck fracture, not significantly changed. No left-sided hip fracture or dislocation. Mild degenerative changes of the left hip. The soft tissues are unremarkable. [id number] XR CHEST PORTABLE 1 VIEW Result Date: 02/16/2024 Small bilateral pleural effusions. Slight interval increase in patchy airspace opacities at both lung bases and in the suprahilar right lung. [id number] Assessment/Plan Assessment Noe Sue is a 83 y.o. male with a PMHx of COPD (3-5L home oxygen), possible AF (he denies ever being told he has AF), GERD, and HTN, who was transferred from [facility] to [facility] and then [facility] for surgical management of a right femoral [...] Symbicort q12h (LABA/ICS), spiriva daily to replace AIRPORT TRAFFIC CONTROLLER LAMA - Prednisone to 40 mg daily since 02/18 (Pt has received 2x 40mg 02/14-02/15 and 2x 30 mg prednisone 02/17 -02/18), duration tbd by respiratory status. - Hold AIRPORT TRAFFIC CONTROLLER Anoro Ellipta (LAMA/LABA) - Wean off of supplemental O2 as tolerated - Maintain SpO2 88-92% - RT following, airway clearance - On discharge would need good pulmonology FU, could benefit from pulmonary rehab. Severe pulmonary HTN with RV failure Suspect group 3 pulm HTN (2/2 lung disease) S/p lasix 160 mg and 5 mg metolazone 02/16/24 at [facility] prior to transfer. Multiple doses of IV lasix given, titrated to kidney function and respiratory function. - Oral diuresis with lasix 20mg, will consider as longer term maintenance dosing. CHRISTIANO Improving. Patient's creatinine on admission 2.54, baseline Cr about 1 per note from [facility]. - Daily BMP - Strict I/Os Afib with RVR Patient denies h/o AF or taking eliquis, but report from [facility] said his last dose of eliquis was 02/13). EDGAR-VASc score of 4 with 4.8% stroke risk. - Started Eliquis 2.5mg BID (dose reduced given pt's advanced age, serum Cr., and weight) - Dc'd Telemetry monitoring d/t stable rate control over the past several days, low threshold to restart if rates sustained >110. - Continue AIRPORT TRAFFIC CONTROLLER metoprolol XL 25 mg daily Right femoral [...] referral to the Fracture Liaison Service with [facility] Endocrinology - Lewis catheter placed due to urinary retention - Vit D 2000U/d Chronic: HTN - Cont AIRPORT TRAFFIC CONTROLLER metoprolol XL 25 mg daily - Holding AIRPORT TRAFFIC CONTROLLER amlodipine 10 mg daily GERD - AIRPORT TRAFFIC CONTROLLER pantoprazole 40/d Constipation - Miralax BID, senna [...] 12:50 * Farnaz Sanchez NP - 02/22/2024 1327 EST ORTHO CHAVA BRIEF NOTE Chart reviewed and patient's vitamin D noted to be 38 on admission for hip fracture from ground-level fall. Recommend discharging on 2000 IU vitamin D3 daily per orthopedic trauma service protocol. Referral for postoperative orthopedic follow up at 6 week post op and to the Fracture Liaison Serviceat [facility] endocrinology placed today. The above was discussed with the primary team. Farnaz Sanchez NP Ortho Trauma Pager [phone] * Russell Rodriguez MD - 02/22/2024 4460 EST Orthopaedic Surgery Progress Note Admit Date: [...] MD 02/21/24 18:56 Orthopaedic Surgery, PGY-2 Pager [phone] Cosigned by Jareth Jim MD at 02/22/2024 [...] a small amount of thick, zheng/white sputum. [id number] 90's when patient is resting with dips [...] effusions and bibasilar opacities compatible with atelectasis. [id number] XR HIP RIGHT 1 VIEW Result Date: 02/17/2024 FINDINGS/IMPRESSION: 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 No periprosthetic fracture is seen. No acute left hip abnormality is seen. Atherosclerotic calcifications arepresent bilaterally. [id number] XR HIP LEFT 1 VIEW Result Date: 02/17/2024 FINDINGS/IMPRESSION: 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 No periprosthetic fracture is seen. No acute left hip abnormality is seen. Atherosclerotic calcifications arepresent bilaterally. [id number] CT ANGIO CHEST PE PROTOCOL Result Date: [...] above interpretation and agree with the findings. [id number] XR HIP RIGHT 1 VIEW Result Date: 02/16/2024 Findings/impression: Redemonstrated right femoral neck fracture, not significantly changed. No left-sided hip fracture or dislocation. Mild degenerative changes of the left hip. The soft tissues are unremarkable. [id number] XR HIP LEFT 2-3 VIEWS OPTIONAL PELVIS Result Date: 02/16/2024 Findings/impression: Redemonstrated right femoral neck fracture, not significantly changed. No left-sided hip fracture or dislocation. Mild degenerative changes of the left hip. The soft tissues are unremarkable. [id number] XR CHEST PORTABLE 1 VIEW Result Date: 02/16/2024 Small bilateral pleural effusions. Slight interval increase in patchy airspace opacities at both lung bases and in the suprahilar right lung. [id number] Assessment/Plan Assessment Noe Sue is a 83 y.o. male with a PMHx of COPD (3-5L home oxygen), possible AF (he denies ever being told he has AF), GERD, and HTN, who was transferred from [facility] to [facility] and then [facility] for surgical management of a right femoral [...] Symbicort q12h (LABA/ICS), spiriva daily to replace AIRPORT TRAFFIC CONTROLLER LAMA - Prednisone to 40 mg daily since 02/18 (Pt has received 2x 40mg 02/14-02/15 and 2x 30 mg prednisone 02/17 -02/18), duration tbd by respiratory status. - Hold AIRPORT TRAFFIC CONTROLLER Anoro Ellipta (LAMA/LABA) - Wean off of supplemental O2 as tolerated - Maintain SpO2 88-92% - RT following, airway clearance - On discharge would need good pulmonology FU, could benefit from pulmonary rehab. Severe pulmonary HTN with RV failure Suspect group 3 pulm HTN (2/2 lung disease) S/p lasix 160 mg and 5 mg metolazone 02/16/24 at [facility] prior to transfer and 100 mg at [facility] with last dose 40 mg yesterday. Patient continue to have a net negative output, and although improved, continue to have respiratory stress, will reevaluate need for additional diuresis based on lab results - Repeat diuresis with Furosemide 40mg IV 02/20 CHRISTIANO Slight increase in Cr after downtrending. Patient's creatinine on admission 2.54, baseline Cr about 1 per note from [facility]. Hard to determine if worsening of CHRISTIANO is driven by hypo- or hypervolemia.Evaluating decision of diuresis daily based on creatinine. - Daily BMP - Strict I/Os Afib with RVR (Patient denies h/o AF or taking eliquis, but report from [facility] said his last dose of eliquis was 02/13). EDGAR-VASc score of 4 with 4.8% stroke risk. - Started Eliquis 2.5mg BID (dose reduced given pt's advanced age, serum Cr., and weight) - Ortho agrees with plan - Telemetry monitoring (multiple Afib episodes) - Continue AIRPORT [employer]FFIC [employer]OLLER metoprolol XL 25 mg daily Right femoral [...] Vit D 1000U/d Chronic: HTN - Cont AIRPORT TRAFFIC CONTROLLER metoprolol XL 25 mg daily - Holding AIRPORT TRAFFIC CONTROLLER amlodipine 10 mg daily GERD - AIRPORT TRAFFIC CONTROLLER pantoprazole 40/d Constipation - Miralax BID, senna [...] MD 02/20/24 12:42 Orthopaedic Surgery, PGY-2 Pager [phone] Cosigned by Nigel Brock MD at 02/21/2024 [...] ADMISSION: Acute hypoxic respiratory failure ([facility]) Patient understands reason for admission: PATIENT INFO VERIFIED: Contact Info, Address Type of housing (single family, condo, apartment, snf, single room occupancy, [facility] funded hotel room, group snf) - [facility] Who does the patient live [...] No Final Discharge Destination: home with CULTURAL, JAIN and/or LANGUAGE factors affecting health care/discharge planning: [...] PT/OT, Nurse visit DME Provider: Darrel Pharmacy: [id number] - [place], [place] - [address] [facility] [address] [facility] [address] [facility] [id number] Home Health: [facility] Other: POST HOSPITAL TRANSITION PLAN: Noe Sue is a 83 y.o. male with a PMHx of COPD (3-5L home oxygen), possible AF (he denies ever being told he has AF), GERD, and HTN, who was transferred from [facility] and then [facility] for surgical management of a right femoral neck fracture in the setting of acute on chronic respiratory failure and severe PaHTN. Patient is stable, still requiring significant supplemental oxygen requiring hospitalization. CM met with patient in room to introduce self and CM role. Patient appeared A&Ox3, and noted significant discomfort, MILLE LACS. Patient reported that he lives with his partener, Gretchen, who is able toprovide support as needed. He stated that he uses a walker and sometimes a wheelchair at home, and has all the stuff he needs for DME. Patient reported that he was receiving SN and PT services from [facility] prior to hospitalization. CM confirmed with agency that they will need resumption of services noted in d/c summary, and notification of his discharge date when determined. Patient's home 02 supplier is [employer]. His family will be able to provide transportation at discharge. Pt enrolled in M2B. CM will continue to follow and coordinate a safe discharge. TAMMY Navarrete Chief Creative Officer II Epic chat preferred. 02/20/2024 12:04 JULIANNE PASCAL 02/20/2024 11:55 * Laine Coe, PT - 02/20/2024 7601 EST [facility] Rehabilitation Therapy Acute Therapy [facility] Initial Evaluation Note Date of [...] 02/16/2024 secondary to Acute hypoxic respiratory failure ([facility]). The patient lives at [address] [place] [address] History of Present Illness / Injury Current Illness / Injury: per MD:Noe Sue is a 83 y.o. male with a PMHx of COPD (3-5L home oxygen), possible AF (he denies ever being told he has AF), GERD, and HTN, who was transferred from [facility] to [facility] and then [facility] for surgical management of a right femoral [...] Nurse When: Prior to therapy session By: [id number] communication Additional communication about Patient Status and [...] by the physical therapist and/or physical therapist anatomic pathology assistant when medically appropriate Frequency: 1-3 times/week [...] effusions and bibasilar opacities compatible with atelectasis. [id number] XR HIP RIGHT 1 VIEW Result Date: 02/17/2024 FINDINGS/IMPRESSION: 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 No periprosthetic fracture is seen. No acute left hip abnormality is seen. Atherosclerotic calcifications arepresent bilaterally. [id number] XR HIP LEFT 1 VIEW Result Date: 02/17/2024 FINDINGS/IMPRESSION: 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 No periprosthetic fracture is seen. No acute left hip abnormality is seen. Atherosclerotic calcifications arepresent bilaterally. [id number] CT ANGIO CHEST PE PROTOCOL Result Date: [...] above interpretation and agree with the findings. [id number] XR HIP RIGHT 1 VIEW Result Date: 02/16/2024 Findings/impression: Redemonstrated right femoral neck fracture, not significantly changed. No left-sided hip fracture or dislocation. Mild degenerative changes of the left hip. The soft tissues are unremarkable. [id number] XR HIP LEFT 2-3 VIEWS OPTIONAL PELVIS Result Date: 02/16/2024 Findings/impression: Redemonstrated right femoral neck fracture, not significantly changed. No left-sided hip fracture or dislocation. Mild degenerative changes of the left hip. The soft tissues are unremarkable. [id number] XR CHEST PORTABLE 1 VIEW Result Date: 02/16/2024 Small bilateral pleural effusions. Slight interval increase in patchy airspace opacities at both lung bases and in the suprahilar right lung. [id number] Assessment/Plan Assessment Noe Sue is a 83 y.o. male with a PMHx of COPD (3-5L home oxygen), possible AF (he denies ever being told he has AF), GERD, and HTN, who was transferred from [facility] to [facility] and then [facility] for surgical management of a right femoral [...] Symbicort q12h (LABA/ICS), spiriva daily to replace AIRPORT TRAFFIC CONTROLLER LAMA - Hold AIRPORT TRAFFIC CONTROLLER Anoro Ellipta (LAMA/LABA) - Wean off of [...] mg and 5 mg metolazone 02/16/24 at [facility] prior to transfer and 20 mg at [facility] 02/17. Patient have a net negative output and continue to have respiratory stress, thus might benefit from additional diuresis. - Repeat 40mg IV lasix Afib with RVR (Patient denies h/o AF or taking eliquis, but report from [facility] said his last dose of eliquis was 02/13). EDGAR-VASc score of 4 with 4.8% stroke risk. - Started Eliquis 2.5mg BID (dose reduced given pt's advanced age, serum Cr., and weight) - Ortho agrees with plan - Telemetry monitoring - Continue AIRPORT [employer]FFIC CONTROLLER metoprolol XL 25 mg daily CHRISTIANO improving, Patient's creatinine on admission 2.54 but has been trending down, baseline Cr about1 per note from [facility] - Daily BMP - Strict I/Os - [...] Vit D 1000U/d Chronic: HTN - Cont AIRPORT TRAFFIC CONTROLLER metoprolol XL 25 mg daily - Holding AIRPORT TRAFFIC CONTROLLER amlodipine 10 mg daily GERD - AIRPORT TRAFFIC CONTROLLER pantoprazole 40/d Constipation - Miralax BID, senna [...] MD 02/19/24 17:42 Orthopaedic Surgery, PGY-2 Pager [phone] Cosigned by Jareth Jim MD at 02/20/2024 [...] 40L 45%. No acute desaturation episodes. RT AMRYLOU 02/20/24 * Yobani Alvarez RN - 02/19/2024 [...] Date 02/19/24 0700 - 02/20/24 0659 Shift [id number] 24 Hour Total INTAKE P.O. 360 360 [...] effusions and bibasilar opacities compatible with atelectasis. [id number] XR HIP RIGHT 1 VIEW Result Date: 02/17/2024 FINDINGS/IMPRESSION: 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 No periprosthetic fracture is seen. No acute left hip abnormality is seen. Atherosclerotic calcifications arepresent bilaterally. [id number] XR HIP LEFT 1 VIEW Result Date: 02/17/2024 FINDINGS/IMPRESSION: 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 No periprosthetic fracture is seen. No acute left hip abnormality is seen. Atherosclerotic calcifications arepresent bilaterally. [id number] CT ANGIO CHEST PE PROTOCOL Result Date: [...] above interpretation and agree with the findings. [id number] XR HIP RIGHT 1 VIEW Result Date: 02/16/2024 Findings/impression: Redemonstrated right femoral neck fracture, not significantly changed. No left-sided hip fracture or dislocation. Mild degenerative changes of the left hip. The soft tissues are unremarkable. [id number] XR HIP LEFT 2-3 VIEWS OPTIONAL PELVIS Result Date: 02/16/2024 Findings/impression: Redemonstrated right femoral neck fracture, not significantly changed. No left-sided hip fracture or dislocation. Mild degenerative changes of the left hip. The soft tissues are unremarkable. [id number] XR CHEST PORTABLE 1 VIEW Result Date: 02/16/2024 Small bilateral pleural effusions. Slight interval increase in patchy airspace opacities at both lung bases and in the suprahilar right lung. [id number] Assessment/Plan Assessment Noe Sue is a 83 y.o. male with a PMHx of COPD (3-5L home oxygen), possible AF (he denies ever being told he has AF), GERD, and HTN, who was transferred from [facility] to [facility] and then [facility] for surgical management of a right femoral [...] q12h (LABA/ICS), add spiriva daily to replace AIRPORT TRAFFIC CONTROLLER LAMA - Hold AIRPORT TRAFFIC CONTROLLER Anoro Ellipta (LAMA/LABA) - Wean off of [...] mg and 5 mg metolazone 02/16/24 at [facility] prior to transfer and 20 mg at [facility] 02/17. Patient have a net negative output and continue to have respiratory stress, thus might benefit from additional diuresis. - Furosemide 40 mg ordered nowx1 02/18 Afib with RVR (Patient denies h/o AF or taking eliquis, but report from [facility] said his last dose of eliquis was 02/13). EDGAR-VASc score of 4 with 4.8% stroke risk. - Start Eliquis 2.5mg BID (dose reduced given pt's advanced age, serum Cr., and weight) - Ortho agrees with plan - Telemetry monitoring - Continue AIRPORT TRAFFIC CONTROLLER metoprolol XL 25 mg daily CHRISTIANO improving, Patient's creatinine on admission 2.54 but has been trending down, baseline Cr about1 per note from [facility] - Daily BMP - Strict I/Os Right [...] level (cont supplement) Chronic: HTN - Cont AIRPORT TRAFFIC CONTROLLER metoprolol XL 25 mg daily - Holding AIRPORT TRAFFIC CONTROLLER amlodipine 10 mg daily GERD - AIRPORT TRAFFIC CONTROLLER pantoprazole Constipation - Stool softer VTE Prophylaxis: [...] Add LDA for any identified wounds Add [place] image for any suspected PI or non surgical wounds Order wound consult if suspected PI identified If Hernando is < or = to 16, initiate Pressure Injury Prevention Bundle ([id number]). 02/18/2024 14:56 * Get Escalante RT - 02/18/2024 1333 EST Images from the original note were not included. Respiratory Progress Note Indications for Respiratory therapy: COPD increased O2 requirement Data Vitals: Heart Rate: 85 BPM, Resp: 18, SpO2: 92 % FIO2/O2 Device: 6 lpm NC, , O2 Device: Nasal cannula, RT Orders: 02/18/24 1700 Airway Clearance Therapy [[id number]] 4 TIMES DAILY Discontinue Reschedule 02/18/24 1333 [...] aspirin, who presents to transfer initially from [facility] after a fall and whom orthopedics [...] abnormality is seen. Atherosclerotic calcifications arepresent bilaterally. [id number] XR HIP LEFT 1 VIEW Result Date: 02/17/2024 FINDINGS/IMPRESSION: 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 No periprosthetic fracture is seen. No acute left hip abnormality is seen. Atherosclerotic calcifications arepresent bilaterally. [id number] CT ANGIO CHEST PE PROTOCOL Result Date: [...] above interpretation and agree with the findings. [id number] XR HIP RIGHT 1 VIEW Result Date: 02/16/2024 Findings/impression: Redemonstrated right femoral neck fracture, not significantly changed. No left-sided hip fracture or dislocation. Mild degenerative changes of the left hip. The soft tissues are unremarkable. [id number] XR HIP LEFT 2-3 VIEWS OPTIONAL PELVIS Result Date: 02/16/2024 Findings/impression: Redemonstrated right femoral neck fracture, not significantly changed. No left-sided hip fracture or dislocation. Mild degenerative changes of the left hip. The soft tissues are unremarkable. [id number] XR CHEST PORTABLE 1 VIEW Result Date: 02/16/2024 Small bilateral pleural effusions. Slight interval increase in patchy airspace opacities at both lung bases and in the suprahilar right lung. [id number] Medications: Scheduled: acetaminophen, 1,000 mg, Q6H aspirin [...] GERD, and hypertension, who was transferred from [facility] to [facility] and then [facility] for preoperative optimization for surgicalmanagement of a right femoral neck fracture. Hospital course at [facility] complicated by acute on chronic hypoxic hypercapenic respiratory failure 2/2 COPD exacerbation vs. community acquired pneumonia. Found to have pulmonary HTN and severe RV dilation with evidence of volume overload, s/p IV diuresis. Started on HFNC at [facility] and then transferredto [facility] MICU for monitoring prior to going to [...] O2 as tolerated -Maintain SpO2 88-92% -Replace AIRPORT TRAFFIC CONTROLLER Anoro Ellipta with Symbicort -Prednisone 40mg daily, decrease to 30mg daily (02/14-02/18) -Duoneb q6h -Ceftriaxone + doxycycline (02/14 - 02/18) -CTA PE 02/15: No evidence of PE, patchy opacity in peripheral RML, lingula, posterior segment or RUL -Bilateral pleural effusions, atherosclerosis of thoracic aorta and coronary artery/aortic valve ID Possible COPDe vs community acquired pneumonia Was started on CAP coverage at [facility]. Legionella, strep pneumo and MRSA negative. Procal [...] mg and 5 mg metolazone 02/16/24 at [facility] prior to transfer - No additional diuresis [...] he is taking eliquis, but report from [facility] said his last dose of eliquis was 02/13.S/p dilt drip at [facility]. -Telemetry monitoring -Trend lytes and replete (Mag >2) -Rate control goal < 110 -AIRPORT TRAFFIC CONTROLLER ASA 81mg daily -Discontinue amiodarone gtt -Resume AIRPORT TRAFFIC CONTROLLER metop succinate 25mg daily #Myocardial injury in the context of RV strain Suspect 2/2 demand ischemia, trop trending down. -Telemetry monitoring #HTN -Resume AIRPORT TRAFFIC CONTROLLER metoprolol succinate 25mg daily -Hold AIRPORT TRAFFIC CONTROLLER amlodipine 10mg daily GI #GERD -AIRPORT TRAFFIC CONTROLLER pantoprazole Hemeonc #Leukocytosis, improving Likely iso possible [...] REGULAR VTE Prophylaxis: Heparin SC GI Prophylaxis: AIRPORT TRAFFIC CONTROLLER PPI Code status: Limitation of Treatment DNR [...] above interpretation and agree with the findings. [id number] XR HIP RIGHT 1 VIEW Result Date: 02/16/2024 Findings/impression: Redemonstrated right femoral neck fracture, not significantly changed. No left-sided hip fracture or dislocation. Mild degenerative changes of the left hip. The soft tissues are unremarkable. [id number] XR HIP LEFT 2-3 VIEWS OPTIONAL PELVIS Result Date: 02/16/2024 Findings/impression: Redemonstrated right femoral neck fracture, not significantly changed. No left-sided hip fracture or dislocation. Mild degenerative changes of the left hip. The soft tissues are unremarkable. [id number] XR CHEST PORTABLE 1 VIEW Result Date: 02/16/2024 Small bilateral pleural effusions. Slight interval increase in patchy airspace opacities at both lung bases and in the suprahilar right lung. [id number] Medications: Scheduled: [Transfer Hold] acetaminophen, 1,000 mg, [...] GERD, and hypertension, who was transferred from [facility] to [facility] and then [facility] for preoperative optimization for surgicalmanagement of a right femoral neck fracture. Hospital course at [facility] complicated by acute on chronic hypoxic hypercapenic respiratory failure 2/2 COPD exacerbation vs. community acquired pneumonia. Found to have pulmonary HTN and severe RV dilation with evidence of volume overload and diuresed. Started on HFNC at [facility] and then transferred to [facility] MICU for monitoring overnight prior to going [...] O2 as tolerated -Maintain SpO2 88-92% -Replace AIRPORT TRAFFIC CONTROLLER Anoro Ellipta with Symbicort -Prednisone 40mg daily x5 days (02/14-02/18) -S/p lasix 160 mg and 5 mg metolazone at [facility] prior to transfer -Duoneb q6h -Ceftriaxone + doxycycline (02/14 - ) -CTA PE 02/15: No evidence of PE, patchy opacity in peripheral RML, lingula, posterior segment or RUL -Bilateral pleural effusions, atherosclerosis of thoracic aorta and coronary artery/aortic valve ID Possible COPDe vs community acquired pneumonia Was started on CAP coverage at [facility]. Legionella, strep pneumo and MRSA negative. Procal [...] mg and 5 mg metolazone 02/16/24 at [facility] prior to transfer - Will hold off [...] he is taking eliquis, but report from [facility] said his last dose of eliquis was 11/6.S/p dilt drip at [facility]. -Telemetry monitoring -Trend lytes and replete (Mag >2) -Rate control goal < 110 -AIRPORT TRAFFIC CONTROLLER ASA 81mg daily -Amiodarone gtt continue at 0.5 -UFH level and coags - Will discuss with ortho after OR regarding DVT ppx vs full dose AC #Myocardial injury in the context of RV strain Suspect 2/2 demand ischemia, trop trending down. -Telemetry monitoring #HTN -Hold AIRPORT TRAFFIC CONTROLLER metoprolol succinate 25mg daily -Hold AIRPORT TRAFFIC CONTROLLER amlodipine 10mg daily GI #GERD -AIRPORT TRAFFIC CONTROLLER pantoprazole Hemeonc #Leukocytosis, improving Likely iso possible [...] Will start after OR today GI Prophylaxis: AIRPORT TRAFFIC CONTROLLER PPI Code status: Limitation of Treatment DNR Do not intubate (DNI) Disposition/discharge planning: Pending operative/clinical course Admission status Inpatient admission due to anticipated duration of hospitalization is two midnights or greater due to Acute hypoxic respiratory failure. Hema Cazares MD Internal Medicine, PGY-2 Epic Chat (prefer) Pgr#[phone] Attending attestation statement: I saw and examined [...] right hip fracture, initial encounter ([facility]) Critical Care time was provided in [...] Ale Bruce - 02/17/2024 1137 EST [facility] Spiritual Care Note Re: Noe Sue : 1940, AGE: 83 y.o. ROOM: [place] [address] BACKGROUND Referral visit. Patient appeared having hard time to hear. Patient said he was okay and no need to talk a grade setter or a hat finishing materials preparer at that time. Patient had a visitor, his granddaughter. INTERVENTIONS Presence Introducing spiritual care CARE PLAN Continued grade setter visit if needed RECOMMENDATIONS: None Matheus Napier, [facility] Glazing Department Supervisor Jareth [phone] Thank you for the opportunity to provide for this patient's/family's spiritual needs. * Farnaz Moreno RT - 02/17/2024 0904 EST Respiratory Progress Note Indications for Respiratory [...] aspirin, who presents to transfer initially from [facility] after a fall and whom orthopedics was consulted for a right femoral neck fracture. Plan for operative management today. P: OR today for open treatment of right hip fracture WB -bedrest Lewis Abx - 2g Ancef millstone cleaner to the OR DVT prophylaxis -asked to [...] Add LDA for any identified wounds Add [place] image for any suspected PI or non surgical wounds Order wound consult if suspected PI identified If Hernando is < or = to 16, initiate Pressure Injury Prevention Bundle ([id number]). 02/16/2024 18:43 * Morenita Yee RT - [...] decreased Response: Mild response, increase subjective per JACQUARD LOOM CARPET WEAVER Pulse: >100 Resp Rate: 18-25 SOB: At [...] home as needed; Do not see on AIRPORT TRAFFIC CONTROLLER meds. Duoneb given per order. RT RANDI 02/16/24 documented in this encounter H&P Notes * Ritesh Cardenas MD - 02/16/2024 0387 EST MICU Admission History & Physical Service Date: 02/16/2024 Admit Date: 02/16/2024 15:41 Primary Care Provider: SUZIE VILLAGOMEZ Chief Complaint: Fall HPI Noe Sue is a 83 y.o. male with a PMHx of HTN, GERD, COPD (on 3-5 L NC baseline) and atrial fibrillation (unclear if on AC), who presented to [facility] s/p fall andwas found to have [...] chest pain, shortness of breath, or cough. [facility] ED labs notable for WBC 22, procal 3, creatinine 3 (baseline ~1), and potassium 6. He was subsequently transferred to [facility] 02/14 for surgical management. On arrival, temp [...] -->0.244. He was confirmed DNR/DNI. Transferred from [facility] to [facility] MICU for preoperative optimization. On arrival to [facility], Noe says that he feels exhausted. Denies [...] bases and in the suprahilar right lung. [id number] TTE 02/16/24: Left Ventricle: Left ventricular systolic [...] GERD, and hypertension, who was transferred from [facility] to [facility] and then [facility] for preoperative optimization for surgicalmanagement of a right femoral neck fracture. Hospital course at [facility] complicated by acute on chronic hypoxic hypercapenic respiratory failure 2/2 COPD exacerbation vs. community acquired pneumonia. Found to have pulmonary HTN and severe RV dilation with evidence of volume overload and diuresed. Started on HFNC at [facility] and then transferred to [facility] MICU for monitoring overnight prior to going [...] O2 as tolerated -Maintain SpO2 88-92% -Replace AIRPORT TRAFFIC CONTROLLER Anoro Ellipta with Symbicort -Prednisone 40mg daily x5 days (02/14-02/18) -S/p lasix 160 mg and 5 mg metolazone early today at [facility] prior to transfer -Duoneb q6h -Ceftriaxone + doxycycline (02/14 - ) -CTA PE Effusions are small and risk>benefit for thoracentesis at this point in time Wean O2 as able ID Possible COPDe vs community acquired pneumonia Was started on CAP coverage at [facility]. Legionella, strep pneumo and MRSA negative. Procal [...] and 5 mg metolazone early today at [facility] prior to transfer -Strict I/Os -Goal net [...] he is taking eliquis, but report from [facility] said his last dose of eliquis was 02/13.S/p dilt drip at [facility]. -Telemetry monitoring -Trend lytes and replete (Mag >2) -Rate control goal < 110 -AIRPORT TRAFFIC CONTROLLER ASA 81mg daily -Amiodarone gtt -UFH level and coags Myocardial injury in the context of RV strain Suspect 2/2 demand ischemia, trop trending down. -Telemetry monitoring HTN -Hold AIRPORT TRAFFIC CONTROLLER metoprolol succinate 25mg daily -Hold AIRPORT TRAFFIC CONTROLLER amlodipine 10mg daily GI GERD -AIRPORT TRAFFIC CONTROLLER pantoprazole Hemeonc Leukocytosis, improving Likely iso possible [...] right hip fracture, initial encounter ([facility]) Critical Care time was provided in [...] home, GERD, hypertension who originally presented to [facility] for hip fracture. Pulmonary Medicine [...] been diuresed. He does not have a scrub technician at this time, although he lives in the [facility] and is interested in establishing care with a scrub technician there. He is a former smoker, having [...] home, GERD, hypertension who originally presented to [facility] for hip fracture. Pulmonary Medicine [...] lung disease. Would recommend referral to a scrub technician out in his [place] area. Would be reasonable to start him onStiolto given the different administration mechanism. Further care can be managed outpatient, is appropriate for Oxymizer at rehab. He should preoxygenated with the Oxymizer for several minutes before he gets up and moves around. When he is finally home, would be reasonable candidate for pulmonary r ehab, however will defer to his outpatient scrub technician that he establishes care to set that up. Patient was examined and recommendations provided in collaboration with attending: Dr. Weiss. Juan Jose Barajas DO PGY-6 Pulmonary and Critical Care Medicine Cosigned by Bryan Weiss MD at 02/27/2024 17:40 EST Associated attestation - Bryan Wiess MD - 02/27/2024 1740 EST Attending Attestation: [...] Attending Physician Pulmonary Disease-Critical Care Medicine [facility] * Char Martinez MD - 02/16/2024 1603 EST Orthopaedic Surgery Consultation Consultation requested by: Dr. Cardenas for: Right femoral neck fracture HPI: Noe Sue is a 83 y.o. male past medical history significant for COPD with chronic hypoxic respiratory failure (3-5L O2 at baseline), Atrial fibrillation on aspirin, who presents to transfer initially from [facility] for right femoral neck fracture after a fall where he had lab abnormalities with hyperkalemia and leukocytosis with an abnormal procalcitonin, and anesthesia was uncomfortable doing surgery due to the patient's oxygen requirements so he was then transferred to [facility] where his admission was complicated by acute on chronic hypoxic and hypercarbic respiratory failure secondary to COPD exacerbation, and was placed on high flow nasal cannula and had atrial fibrillation with RVR and was placed on a diltiazem infusion and switched to an amio infusion.He had an echo at [facility] that demonstrated severe pulmonary hypertension and he [...] transcervical femoral neck fracture. Assessment: Noe Sue [id number] 1940 Noe Sue is a 83 y.o. male with past medical history significant for COPD with chronic hypoxic respiratory failure (3-5L O2 at baseline), Atrial fibrillation on aspirin, who presents to transfer initially from [facility] for right femoral neck fracture after a fallwhere he had lab abnormalities with hyperkalemia and leukocytosis with an abnormal procalcitonin, and anesthesia was uncomfortable doing surgery due to the patient's oxygen requirements so he was then transferred to [facility] where his admission was complicated by acute on chronic hypoxic and hypercarbic respiratory failure secondary to COPD exacerbation, and was placed on high flow nasal cannula and had atrial fibrillation with RVR and was placed on a diltiazem infusion and switched to an amio infusion. He had an echo at [facility] that demonstrated severe pulmonary hypertension and he [...] MD PGY-2 Orthopaedic Surgery 02/16/2024 19:29 Pager #[phone], or EPIC Chat Cosigned by Augustine Ceja [...] days ago. He initially was transferred to [facility] from outside hospital for surgery for his right hip. Unfortunately he developed severe respiratory distress from his COPD and was admitted to the ICU on 02/16/2024. Due to the severity of his illness and not being able to undergo spinal anesthesia, request for transfer was made to [facility] for higher level of care. He was then transferred to the ICU at [facility], evaluated and deemed as optimized [...] SERVICE DATE: 02/17/24 SURGEON: Augustine Ceja MD FISH HATCHERY ASSISTANT: DENITA THOMAS MD, Russell Rodriguez MD PREOPERATIVE DIAGNOSIS: Right displaced femoral neck fracture. POSTOPERATIVE DIAGNOSIS: Right displaced femoral neck fracture. PROCEDURE: Right hip cemented unipolar hemiarthroplasty (CPT 24824). ANESTHESIA: Epidural with IV sedation ESTIMATED BLOOD [...] fascia was closed with a combination of [id number]-cvetb interrupted #1 vicryl and running #1 PDS [...] per MAR. Clustered care to promote rest. D4jzyak done. Safety ensured. Response: Patient able to [...] Plan Documentation Outcome: Ongoing Flowsheets (Taken 02/23/2024 0868) Area of Focus: Skin Integrity Goal This [...] GERD, and HTN, who was transferred from [facility] to [facility] and then [facility] forsurgical management of a right femoral neck [...] this patient. Please contact us via SecureChat ([facility] Wound Care Team) or reconsult for further [...] Plan Documentation Outcome: Ongoing Flowsheets (Taken 02/19/2024 0355) Area of Focus: Respiratory Goal This Shift: [...] 02/19/2024 4:03 * Plan of Care - Reha Fleming RN - 02/18/2024 2156 EST Images from the original note were not included. NSR @ 02/18/2024 2157 NSR @ 02/19/2024 0400 * Plan of Care - Yobani Alvarez RN - 02/18/2024 1634 EST Problem: Daily Care Plan Goals Goal: Care Plan Documentation Flowsheets (Taken 02/18/2024 1600) Area of Focus: Respiratory Goal This Shift: [...] abnormality is seen. Atherosclerotic calcifications arepresent bilaterally. [id number] XR HIP LEFT 1 VIEW Result Date: 02/17/2024 FINDINGS/IMPRESSION: 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 No periprosthetic fracture is seen. No acute left hip abnormality is seen. Atherosclerotic calcifications arepresent bilaterally. [id number] CT ANGIO CHEST PE PROTOCOL Result Date: [...] above interpretation and agree with the findings. [id number] XR HIP RIGHT 1 VIEW Result Date: 02/16/2024 Findings/impression: Redemonstrated right femoral neck fracture, not significantly changed. No left-sided hip fracture or dislocation. Mild degenerative changes of the left hip. The soft tissues are unremarkable. [id number] XR HIP LEFT 2-3 VIEWS OPTIONAL PELVIS Result Date: 02/16/2024 Findings/impression: Redemonstrated right femoral neck fracture, not significantly changed. No left-sided hip fracture or dislocation. Mild degenerative changes of the left hip. The soft tissues are unremarkable. [id number] XR CHEST PORTABLE 1 VIEW Result Date: 02/16/2024 Small bilateral pleural effusions. Slight interval increase in patchy airspace opacities at both lung bases and in the suprahilar right lung. [id number] Medications: Scheduled: acetaminophen, 1,000 mg, Q6H aspirin [...] GERD, and HTN, who was transferred to [facility] for management of a right femoral neck [...] SpO2 88-92% -Cont Symbicort in place of AIRPORT TRAFFIC CONTROLLER Anoro Ellipta -Prednisone for 2 more days (then reassess) -Duoneb q6h -airway clearance -Completes 5 day courses of Ceftriaxone + doxycycline today -Repeat chest CT in 1-3 months to reevaluate 1.1 cm spiculated lung nodule in the lingula Severe pulmonary HTN with RV failure (S/p lasix 160 mg and 5 mg metolazone 02/16/24 at [facility] prior [facility]) - No additional diuresis Afib with RVR (Patient denies h/o AF or taking eliquis, but report from [facility] said his last dose of eliquis was 02/13) -Telemetry monitoring -Cont AIRPORT TRAFFIC CONTROLLER metoprolol XL 25 mg daily -need to call PCP Monday and investigate question of AF and AC HTN -cont AIRPORT TRAFFIC CONTROLLER metoprolol XL 25 mg daily -Holding AIRPORT TRAFFIC CONTROLLER amlodipine 10 mg daily GI (GERD and constipation) -AIRPORT TRAFFIC CONTROLLER pantoprazole -scheduled bowel Rx CHRISTIANO (improving, baseline Cr about 1 per note from [facility]) -Daily BMP -Strict I/Os Right femoral neck [...] pt to hospital closer to home (Prefers [facility]) Response: HR and BP [...] might see on the residents EOL process ASPHALT PATCHER APPROACHES: 1. Report and signs/symptoms of pain [...] Blood Loss: 150 cc Drains: None Implants: [place] Accolade C Size 4 132 degree Stem, Size 53mm +0 Unit[employer] [place] Chrome Head, Size 11mm Centralizer, Medium Ontiveros Plug Implant Name Type Inv. Item Serial No. R&D Engineer Lot No. LRB No. Used Action RESTRICTOR CEMENT ONTIVEROS 25MM DISTAL FEM HIP RECON SURGERY ST - [id number] Total Joint Implant RESTRICTOR CEMENT ONTIVEROS 25MM DISTAL FEM HIP RECON SURGERY ST [id number] [employer] [id number] Right 1Implanted HIP FEMORAL STEM CMNTD 132DEG STD OFFST SZ 4 [id number] ACCOLADE C [id number] - [id number] Total Joint Implant HIP FEMORAL STEM CMNTD 132DEG STD OFFST SZ 4 [id number] ACCOLADE C [id number] [employer] [id number] Right 1 Implanted HIP SPACER STEM DISTAL CEMENTED 11MM ACCOLADE [id number] - [id number] Total Joint Implant HIP SPACER STEM DISTAL CEMENTED 11MM ACCOLADE [id number] [employer] [id number] Right 1 Implanted CEMENT BONE HIGH VISCOSITY TOBRAMYCIN RADIOPAQUE SINGLE DOSE YANES 40GM SIMPLEX [id number] - [id number] Ortho Implant CEMENT BONE HIGH VISCOSITY TOBRAMYCIN RADIOPAQUE SINGLE DOSE YANES 40GM SIMPLEX [id number] [facility] [id number] Right 2 Implanted HIP HEAD UNIPOLAR COCR 53MM UNITRAX [id number] - [id number] Total Joint Implant HIP HEAD UNIPOLAR [id number] UNITRAX [id number] [employer] [id number] Right 1 Implanted HIP TAPER SLEEVE STANDARD OFFSET FEMORAL V40 [id number] - [id number] Total Joint Implant HIP TAPER SLEEVE STANDARD OFFSET FEMORAL V40 [id number] [employer] [id number] Right 1 Implanted Closure: Monocryl, Dermabond, Mepilex [...] Care - Regine Jacobs RN - 02/17/2024 0907 EST Images from the original note were [...] MD PGY-2 Orthopaedic Surgery 02/16/2024 19:37 Pager #[phone], or EPIC Chat * Plan of Care - Honey Spring RN - 02/16/2024 1847 EST Images from the original note were not included. Noe Sue admitted to MICU at approx 1600 from [facility], Patient admitted with Acute hypoxic respiratory failure ([facility]) Arrived on NRB 10L; transferred to [facility]; poor reserves, pt desats to low 80s [...] audible with doppler. Pt accompanied by MICU petal cutter to CT for r/o PE. Monitored cardiovascular, [...] Contact Info) Description 04/05/2024 10:15 EST Appointment [facility] Xray [address] [place] [address] 04/05/2024 10:30 EST Post-op Visit [facility] Orthopedic Trauma - [facility] [address] [place], [place] [id number] Ko Marqius PA-C [address] [place] [address] Scheduled Referrals Name Type Priority Associated Diagnoses Order Schedule AMB CONS/FOLLOW UP ENDOCRINOLOGY Outpatient Referral Routine/Next Available Osteoporosis with current pathological fracture, unspecified osteoporosis type, initial encounter Expected: 04/04/2024 (Approximate), Expires: 02/21/2025 AMB CONS/FOLLOW UP ORTHOPEDICS - [facility] Outpatient Referral Routine/Next Available Closed right hip fracture, initial encounter ([facility]) Expected: 03/23/2024 (Approximate), Expires: 02/21/2025 documented [...] right hip fracture, initial encounter ([facility]) XR HIP LEFT 1 VIEW Routine 02/17/2024 15 :20 EST Closed right hip fracture, initial encounter ([facility]) OPEN TREATMENT, FRACTURE, FEMUR, NECK, WITH INTERNAL FIXATION OR INSERTION OF PROSTHETIC 02/17/2024 11:44 EST Closed right hip fracture, initial encounter ([facility]) PROTIME STAT 02/17/2024 11:41 EST COMPLETE [...] 03/04/2024 11:3 9 EST us Scan 2 Printer Operator PROCEDURE/MINOR SURGICAL OR DERABLES Final Result * ECG REPORT - SCANNED (03/04/2024 9:35 EST) 03/04/2024 9:35 EST us Scan 2 Printer Operator PROCEDURE/MINOR SURGICAL OR DERABLES Final Result * ECG REPORT - SCANNED (02/28/2024 10:36 EST) 02/28/2024 10:3 6 EST us Scan 2 Printer Operator PROCEDURE/MINOR SURGICAL OR DERABLES Final Result * (ABNORMAL) COMPLETE BLOOD COUNT (02/28/2024 10:26 EST) WBC 16.63(H) 4.00 - 10.40 K/cmm 02/28/2024 11:06 [facility] RBC 3.09(L) 4.36 - 5.78 M/cmm 02/28/2024 11:06 [facility] Hemoglobin 10.3(L) 13.8 - 17.3 g/dL 02/28/2024 11:06 [facility] HCT 30.5(L) 39.5 - 50.2 % 02/28/2024 11:06 [facility] MCV 99(H) 81 - 95 fL 02/28/2024 11:06 [facility] MCH 33.3(H) 27.6 - 33.0 pg 02/28/2024 11:06 [facility] MCHC 33.8 32.8 - 36.4 g/dL 02/28/2024 11:06 [facility] RDW-CV 15.2(H) <14.2 % 02/28/2024 11:06 [facility] RDW-SD 55.3(H) <46.0 fl 02/28/2024 11:06 [facility] PLT 362 141 - 377 K/cmm 02/28/2024 11:06 [facility] MPV 10.1 9.5 - 12.7 fL 02/28/2024 11:06 [facility] Blood VENOUS BLOOD / Unknown Venipuncture / Unknown 02/28/2024 10:26 EST 02/28/2024 10:54 EST us Pushpa Welch MD HEMATOLOGY & PF4 ORDERABLES F inal Result Performing Organization Address City/[facility]/ZIP Co de Phone Number [facility] [address] [place] [address] * (ABNORMAL) BASIC METABOLIC PANEL (BMP) (02/28/2024 10:26 EST) Sodium 137 136 - 145 mmol/L 02/28/2024 11:44 [facility] Potassium 3.7 3.5 - 5.0 mmol/L 02/28/2024 11:44 [facility] Chloride 95(L) 96 - 110 mmol/L 02/28/2024 11:44 [facility] CO2 Total 38(H) 22 - 32 mmol/L 02/28/2024 11:44 [facility] [facility] Anion Gap 4(L) 5 - 14 mmol/L 02/28/2024 11:44 [facility] Glucose 127(H) 70 - 99 mg/dl 02/28/2024 11:44 [facility] Calcium 8.4(L) 8.5 - 10.5 mg/dL 02/28/2024 11:44 [facility] BUN 34(H) 10 - 26 mg/dL 02/28/2024 11:44 [facility] Creatinine 1.32(H) 0.66 - 1.25 mg/dL 02/28/2024 11:44 [facility] eGFR 53(L) >60 mL/min/1.73 m2 02/28/2024 11:44 [facility] Blood VENOUS BLOOD / Unknown Venipuncture / Unknown 02/28/2024 10:26 EST 02/28/2024 10:55 EST Pushpa Welch MD CHEMISTRY & BLOOD GAS ORDERAB LES Final Result Performing Organization Address City/[facility]/ZIP Co de Phone Number [facility] [address] [place] [address] * (ABNORMAL) NT PRO BNP (02/27/2024 15:55 EST) NT-pro BNP 1,210(H) <326 pg/mL 02/27/2024 16:57 [facility] Comment: In the [...] [facility] [address] [place] [address] * (ABNORMAL) BASIC METABOLIC PANEL (BMP) (02/27/2024 15:55 EST) Sodium 137 136 - 145 mmol/L 02/27/2024 16:57 [facility] Potassium 4.0 3.5 - 5.0 mmol/L 02/27/2024 16:57 [facility] Chloride 94(L) 96 - 110 mmol/L 02/27/2024 16:57 [facility] CO2 Total 36(H) 22 - 32 mmol/L 02/27/2024 16:57 [facility] Anion Gap 7 5 - 14 mmol/L 02/27/2024 16:57 [facility] Glucose 184(H) 70 - 99 mg/dl 02/27/2024 16:57 [facility] Calcium 8.4(L) 8.5 - 10.5 mg/dL 02/27/2024 16:57 [facility] BUN 37(H) 10 - 26 mg/dL 02/27/2024 16:57 [facility] Creatinine 1.34(H) 0.66 - 1.25 mg/dL 02/27/2024 16:57 [facility] eGFR 52(L) >60 mL/min/1.73 m2 02/27/2024 16:57 EST [facility] Blood VENOUS BLOOD / Unknown Venipuncture / Unknown 02/27/2024 15:55 EST 02/27/2024 16:02 EST us Pushpa Welch MD CHEMISTRY & BLOOD GAS ORDERAB LES Final Result [facility] [address] [place] [address] * TRANSTHORACIC ECHO (TTE) LIMITED W/DOPPLER W/CF [...] color Doppler.The study was interpreted by [facility]. Pertinent images [...] 10.3(L) 13.8 - 17.3 g/dL 02/26/2024 16:12 [facility] HCT 31.3(L) 39.5 - 50.2 % 02/26/2024 16:12 [facility] MCV 99(H) 81 - 95 fL 02/26/2024 16:12 [facility] MCH 32.7 27.6 - 33.0 pg 02/26/2024 16:12 [facility] MCHC 32.9 32.8 - 36.4 g/dL 02/26/2024 16:12 [facility] RDW-CV 15.3(H) <14.2 % 02/26/2024 16:12 [facility] RDW-SD 55.4(H) <46.0 fl 02/26/2024 16:12 [facility] PLT 311 141 - 377 K/cmm 02/26/2024 16:12 [facility] MPV 10.4 9.5 - 12.7 fL 02/26/2024 16:12 [facility] Blood VENOUS BLOOD / Unknown Venipuncture / Unknown 02/26/2024 15:55 EST 02/26/2024 16:03 EST Pushpa Welch MD HEMATOLOGY & PF4 ORDERABLES F inal Result [facility] [address] [place] [address] * (ABNORMAL) BASIC METABOLIC PANEL (BMP) (02/26/2024 15:54 EST) Sodium 137 136 - 145 mmol/L 02/26/2024 16:55 [facility] Potassium 4.6 3.5 - 5.0 mmol/L 02/26/2024 16:55 [facility] Chloride 95(L) 96 - 110 mmol/L 02/26/2024 16:55 [facility] CO2 Total 34(H) 22 - 32 mmol/L 02/26/2024 16:55 EST [facility] Anion Gap 8 5 - 14 mmol/L 02/26/2024 16:55 [facility] Glucose 159(H) 70 - 99 mg/dl 02/26/2024 16:55 [facility] Calcium 8.5 8.5 - 10.5 mg/dL 02/26/2024 16:55 [facility] BUN 40(H) 10 - 26 mg/dL 02/26/2024 16:55 [facility] Creatinine 1.23 0.66 - 1.25 mg/dL 02/26/2024 16:55 [facility] eGFR 58(L) >60 mL/min/1.73 m2 02/26/2024 16:55 [facility] Blood VENOUS BLOOD / Unknown Venipuncture / Unknown 02/26/2024 15:54 EST 02/26/2024 16:13 EST Pushpa Welch MD CHEMISTRY & BLOOD GAS ORDERAB LES Final Result [facility] [address] [place] [address] * XR CHEST PORTABLE 1 VIEW (02/26/2024 12:08 EST) Anatomical Region Laterality Modality Computed Radiogr aphy 02/26/2024 12:1 6 EST Impressions 02/26/2024 12:16 EST New right upper and lower lobe airspace opacities which may represent aspiration pneumonitis. Small right effusion. [id number] Narrative 02/26/2024 12:16 EST XR CHEST PORTABLE [...] findings: ??Normal. Bones: Normal. Resulting Agency Comment [id number] Procedure Note Karo Schmidt MD - 02/26/2024 [...] which may representaspiration pneumonitis. Small right effusion. [id number] Pushpa Welch MD IMG DIAGNOSTIC IMAGING ORDERA BLES Final Result * (ABNORMAL) BASIC METABOLIC PANEL (BMP) (02/24/2024 9:22 EST) Sodium 137 136 - 145 mmol/L 02/24/2024 10:32 [facility] Potassium 4.7 3.5 - 5.0 mmol/L 02/24/2024 10:32 [facility] Chloride 96 96 - 110 mmol/L 02/24/2024 10:32 [facility] CO2 Total 36(H) 22 - 32 mmol/L 02/24/2024 10:32 [facility] Anion Gap 5 5 - 14 mmol/L 02/24/2024 10:32 [facility] Glucose 146(H) 70 - 99 mg/dl 02/24/2024 10:32 [facility] Calcium 9.0 8.5 - 10.5 mg/dL 02/24/2024 10:32 [facility] BUN 48(H) 10 - 26 mg/dL 02/24/2024 10:32 [facility] Creatinine 1.04 0.66 - 1.25 mg/dL 02/24/2024 10:32 [facility] eGFR 70 >60 mL/min/1.73 m2 02/24/2024 10:32 [facility] Blood VENOUS BLOOD / Unknown Venipuncture / Unknown 02/24/2024 9:22 EST 02/24/2024 9:55 EST us Marcos Quintero MD CHEMISTRY & BLOOD GAS ORD ERABLES Final Result [facility] [address], [place] [id number] * (ABNORMAL) COMPLETE BLOOD COUNT (02/24/2024 9:22 EST) WBC 22.32(H) 4.00 - 10.40 K/cmm 02/24/2024 10:08 [facility] RBC 3.54(L) 4.36 - 5.78 M/cmm 02/24/2024 10:08 [facility] Hemoglobin 11.6(L) 13.8 - 17.3 g/dL 02/24/2024 10:08 [facility] HCT 34.4(L) 39.5 - 50.2 % 02/24/2024 10:08 [facility] MCV 97(H) 81 - 95 fL 02/24/2024 10:08 [facility] MCH 32.8 27.6 - 33.0 pg 02/24/2024 10:08 [facility] MCHC 33.7 32.8 - 36.4 g/dL 02/24/2024 10:08 [facility] RDW-CV 15.0(H) <14.2 % 02/24/2024 10:08 [facility] RDW-SD 53.6(H) <46.0 fl 02/24/2024 10:08 [facility] PLT 311 141 - 377 K/cmm 02/24/2024 10:08 [facility] MPV 10.6 9.5 - 12.7 fL 02/24/2024 10:08 [facility] Blood VENOUS BLOOD / Unknown Venipuncture / Unknown 02/24/2024 9:22 EST 02/24/2024 9:54 EST us Pete Miller DO HEMATOLOGY & PF4 ORDERABLES Saadia l Result [facility] [address] [place] [address] * (ABNORMAL) BASIC METABOLIC PANEL (BMP) (02/23/2024 12:04 EST) Sodium 138 136 - 145 mmol/L 02/23/2024 12:39 [facility] Potassium 4.6 3.5 - 5.0 mmol/L 02/23/2024 12:39 [facility] Chloride 95(L) 96 - 110 mmol/L 02/23/2024 12:39 [facility] CO2 Total 39(H) 22 - 32 mmol/L 02/23/2024 12:39 [facility] Anion Gap 4(L) 5 - 14 mmol/L 02/23/2024 12:39 [facility] Glucose 223(H) 70 - 99 mg/dl 02/23/2024 12:39 [facility] Calcium 8.7 8.5 - 10.5 mg/dL 02/23/2024 12:39 [facility] BUN 51(H) 10 - 26 mg/dL 02/23/2024 12:39 [facility] Creatinine 1.10 0.66 - 1.25 mg/dL 02/23/2024 12:39 [facility] eGFR 66 >60 mL/min/1.73 m2 02/23/2024 12:39 [facility] Blood VENOUS BLOOD / Unknown Venipuncture / Unknown 02/23/2024 12:04 EST 02/23/2024 12:09 EST us Marcos Quintero MD CHEMISTRY & BLOOD GAS ORD ERABLES Final Result [facility] [address] [place] [address] * (ABNORMAL) COMPLETE BLOOD COUNT (02/23/2024 12:04 EST) WBC 19.09(H) 4.00 - 10.40 K/cmm 02/23/2024 13:21 [facility] RBC 3.57(L) 4.36 - 5.78 M/cmm 02/23/2024 13:21 [facility] Hemoglobin 11.6(L) 13.8 - 17.3 g/dL 02/23/2024 13:21 [facility] HCT 35.4(L) 39.5 - 50.2 % 02/23/2024 13:21 [facility] MCV 99(H) 81 - 95 fL 02/23/2024 13:21 [facility] MCH 32.5 27.6 - 33.0 pg 02/23/2024 13:21 [facility] MCHC 32.8 32.8 - 36.4 g/dL 02/23/2024 13:21 [facility] RDW-CV 15.0(H) <14.2 % 02/23/2024 13:21 [facility] RDW-SD 54.0(H) <46.0 fl 02/23/2024 13:21 [facility] PLT 274 141 - 377 K/cmm 02/23/2024 13:21 [facility] MPV 10.9 9.5 - 12.7 fL 02/23/2024 13:21 [facility] Blood VENOUS BLOOD / Unknown Venipuncture / Unknown 02/23/2024 12:04 EST 02/23/2024 13:13 EST us Pete Miller DO HEMATOLOGY & PF4 ORDERABLES Saadia loaiza Result [facility] [address], [place] [id number] * (ABNORMAL) BASIC METABOLIC PANEL (BMP) (02/22/2024 11:01 EST) Sodium 138 136 - 145 mmol/L 02/22/2024 12:27 [facility] Potassium 4.5 3.5 - 5.0 mmol/L 02/22/2024 12:27 [facility] Chloride 95(L) 96 - 110 mmol/L 02/22/2024 12:27 [facility] CO2 Total 37(H) 22 - 32 mmol/L 02/22/2024 12:27 [facility] Anion Gap 6 5 - 14 mmol/L 02/22/2024 12:27 [facility] Glucose 208(H) 70 - 99 mg/dl 02/22/2024 12:27 [facility] Calcium 9.0 8.5 - 10.5 mg/dL 02/22/2024 12:27 [facility] BUN 56(H) 10 - 26 mg/dL 02/22/2024 12:27 [facility] Creatinine 1.27(H) 0.66 - 1.25 mg/dL 02/22/2024 12:27 [facility] eGFR 55(L) >60 mL/min/1.73 m2 02/22/2024 12:27 [facility] Blood VENOUS BLOOD / Unknown Venipuncture / Unknown 02/22/2024 11:01 EST 02/22/2024 11:40 EST Marcos Quintero MD CHEMISTRY & BLOOD GAS ORD ERABLES Final Result [facility] [address] [place] [address] * (ABNORMAL) COMPLETE BLOOD COUNT (02/22/2024 11:01 EST) WBC 22.75(H) 4.00 - 10.40 K/cmm 02/22/2024 11:45 [facility] RBC 3.52(L) 4.36 - 5.78 M/cmm 02/22/2024 11:45 [facility] Hemoglobin 11.7(L) 13.8 - 17.3 g/dL 02/22/2024 11:45 [facility] HCT 34.6(L) 39.5 - 50.2 % 02/22/2024 11:45 [facility] MCV 98(H) 81 - 95 fL 02/22/2024 11:45 [facility] MCH 33.2(H) 27.6 - 33.0 pg 02/22/2024 11:45 [facility] MCHC 33.8 32.8 - 36.4 g/dL 02/22/2024 11:45 [facility] RDW-CV 15.1(H) <14.2 % 02/22/2024 11:45 [facility] RDW-SD 54.9(H) <46.0 fl 02/22/2024 11:45 [facility] PLT 270 141 - 377 K/cmm 02/22/2024 11:45 [facility] MPV 10.8 9.5 - 12.7 fL 02/22/2024 11:45 [facility] Blood VENOUS BLOOD / Unknown Venipuncture / Unknown 02/22/2024 11:01 EST 02/22/2024 11:37 EST us Pete Miller DO HEMATOLOGY & PF4 ORDERABLES Saadia l Result Performing Organization Address City/State/[facility] Co de Phone Number [facility] [address] [place] [address] * (ABNORMAL) BASIC METABOLIC PANEL (BMP) (02/21/2024 9:58 EST) Sodium 138 136 - 145 mmol/L 02/21/2024 11:42 [facility] Potassium 4.1 3.5 - 5.0 mmol/L 02/21/2024 11:42 [facility] Chloride 95(L) 96 - 110 mmol/L 02/21/2024 11:42 [facility] CO2 Total 34(H) 22 - 32 mmol/L 02/21/2024 11:42 [facility] Anion Gap 9 5 - 14 mmol/L 02/21/2024 11:42 [facility] Glucose 190(H) 70 - 99 mg/dl 02/21/2024 11:42 [facility] Calcium 8.5 8.5 - 10.5 mg/dL 02/21/2024 11:42 [facility] BUN 54(H) 10 - 26 mg/dL 02/21/2024 11:42 [facility] Creatinine 1.38(H) 0.66 - 1.25 mg/dL 02/21/2024 11:42 [facility] eGFR 50(L) >60 mL/min/1.73 m2 02/21/2024 11:42 [facility] Blood VENOUS BLOOD / Unknown Venipuncture / Unknown 02/21/2024 9:58 EST 02/21/2024 11:04 EST us Marcos Quintero MD CHEMISTRY & BLOOD GAS ORD ERABLES Final Result [facility] [address] [place] [address] * (ABNORMAL) COMPLETE BLOOD COUNT (02/21/2024 9:58 EST) WBC 15.67(H) 4.00 - 10.40 K/cmm 02/21/2024 11:02 [facility] RBC 3.25(L) 4.36 - 5.78 M/cmm 02/21/2024 11:02 [facility] Hemoglobin 10.6(L) 13.8 - 17.3 g/dL 02/21/2024 11:02 [facility] HCT 31.7(L) 39.5 - 50.2 % 02/21/2024 11:02 [facility] MCV 98(H) 81 - 95 fL 02/21/2024 11:02 [facility] MCH 32.6 27.6 - 33.0 pg 02/21/2024 11:02 [facility] MCHC 33.4 32.8 - 36.4 g/dL 02/21/2024 11:02 [facility] RDW-CV 15.0(H) <14.2 % 02/21/2024 11:02 [facility] RDW-SD 54.0(H) <46.0 fl 02/21/2024 11:02 [facility] PLT 196 141 - 377 K/cmm 02/21/2024 11:02 [facility] MPV 10.7 9.5 - 12.7 fL 02/21/2024 11:02 [facility] Blood VENOUS BLOOD / Unknown Venipuncture / Unknown 02/21/2024 9:58 EST 02/21/2024 10:49 EST us Pete Miller DO HEMATOLOGY & PF4 ORDERABLES Saadia l Result Performing Organization Address City/State/[facility] Co de Phone Number [facility] [address], [place] [id number] * (ABNORMAL) BASIC METABOLIC PANEL (BMP) (02/20/2024 10:07 EST) Sodium 141 136 - 145 mmol/L 02/20/2024 11:58 [facility] Potassium 4.0 3.5 - 5.0 mmol/L 02/20/2024 11:58 [facility] Chloride 96 96 - 110 mmol/L 02/20/2024 11:58 [facility] CO2 Total 35(H) 22 - 32 mmol/L 02/20/2024 11:58 [facility] Anion Gap 10 5 - 14 mmol/L 02/20/2024 11:58 [facility] Glucose 106(H) 70 - 99 mg/dl 02/20/2024 11:58 [facility] Calcium 8.5 8.5 - 10.5 mg/dL 02/20/2024 11:58 [facility] BUN 64(H) 10 - 26 mg/dL 02/20/2024 11:58 [facility] Creatinine 2.00(H) 0.66 - 1.25 mg/dL 02/20/2024 11:58 [facility] eGFR 32(L) >60 mL/min/1.73 m2 02/20/2024 11:58 [facility] Blood VENOUS BLOOD / Unknown Venipuncture / Unknown 02/20/2024 10:07 EST 02/20/2024 11:15 EST us Marcos Quintero MD CHEMISTRY & BLOOD GAS ORD ERABLES Final Result [facility] [address] [place] [address] * (ABNORMAL) COMPLETE BLOOD COUNT (02/20/2024 10:07 EST) WBC 14.61(H) 4.00 - 10.40 K/cmm 02/20/2024 11:28 [facility] RBC 3.36(L) 4.36 - 5.78 M/cmm 02/20/2024 11:28 [facility] Hemoglobin 11.0(L) 13.8 - 17.3 g/dL 02/20/2024 11:28 [facility] HCT 32.8(L) 39.5 - 50.2 % 02/20/2024 11:28 [facility] MCV 98(H) 81 - 95 fL 02/20/2024 11:28 [facility] MCH 32.7 27.6 - 33.0 pg 02/20/2024 11:28 [facility] MCHC 33.5 32.8 - 36.4 g/dL 02/20/2024 11:28 [facility] RDW-CV 15.2(H) <14.2 % 02/20/2024 11:28 [facility] RDW-SD 54.4(H) <46.0 fl 02/20/2024 11:28 [facility] PLT 167 141 - 377 K/cmm 02/20/2024 11:28 [facility] MPV 11.7 9.5 - 12.7 fL 02/20/2024 11:28 [facility] Blood VENOUS BLOOD / Unknown Venipuncture / Unknown 02/20/2024 10:07 EST 02/20/2024 11:13 EST Pete Miller DO HEMATOLOGY & PF4 ORDERABLES Saadia l Result [facility] [address] [place] [address] * MRSA PCR (02/20/2024 5:04 EST) Pathologist [facility] MRSA/Staph aureus Result No Staphylococcus aureus detected by PCR 02/20/2024 13:18 [facility] Swab BOTH ANTERIOR NARES / Unknown Swab / Unknown 02/20/2024 5:04 EST 02/20/2024 7:15 EST Pete Miller DO MICROBIOLOGY - GENERAL ORDERABLE S Final Result Performing Organization Address City/[facility]/ZIP Co de Phone Number [facility] [address] [place] [address] * (ABNORMAL) BASIC METABOLIC PANEL (BMP) (02/19/2024 11:27 EST) Sodium 136 136 - 145 mmol/L 02/19/2024 12:28 [facility] Potassium 4.7 3.5 - 5.0 mmol/L 02/19/2024 12:28 [facility] Chloride 96 96 - 110 mmol/L 02/19/2024 12:28 [facility] CO2 Total 35(H) 22 - 32 mmol/L 02/19/2024 12:28 [facility] Anion Gap 5 5 - 14 mmol/L 02/19/2024 12:28 [facility] Glucose 149(H) 70 - 99 mg/dl 02/19/2024 12:28 [facility] Calcium 8.4(L) 8.5 - 10.5 mg/dL 02/19/2024 12:28 [facility] BUN 70(H) 10 - 26 mg/dL 02/19/2024 12:28 [facility] Creatinine 1.86(H) 0.66 - 1.25 mg/dL 02/19/2024 12:28 [facility] eGFR 35(L) >60 mL/min/1.73 m2 02/19/2024 12:28 [facility] Blood VENOUS BLOOD / Unknown Venipuncture / Unknown 02/19/2024 11:27 EST 02/19/2024 11:49 EST us Marcos Quintero MD CHEMISTRY & BLOOD GAS ORD ERABLES Final Result [facility] [address] [place], [place] [id number] * (ABNORMAL) COMPLETE BLOOD COUNT (02/19/2024 11:27 EST) WBC 12.57(H) 4.00 - 10.40 K/cmm 02/19/2024 12:00 [facility] RBC 3.51(L) 4.36 - 5.78 M/cmm 02/19/2024 12:00 [facility] Hemoglobin 11.5(L) 13.8 - 17.3 g/dL 02/19/2024 12:00 [facility] HCT 33.2(L) 39.5 - 50.2 % 02/19/2024 12:00 [facility] MCV 95 81 - 95 fL 02/19/2024 12:00 [facility] MCH 32.8 27.6 - 33.0 pg 02/19/2024 12:00 [facility] MCHC 34.6 32.8 - 36.4 g/dL 02/19/2024 12:00 [facility] RDW-CV 15.2(H) <14.2 [...] [facility] [address] [place] [id number] * XR CHEST PORTABLE 1 VIEW (02/18/2024 15:38 EST) Anatomical Region Laterality Modality Computed Radiogr aphy 02/18/2024 15:4 8 EST Impressions 02/18/2024 15:48 EST Bilateral small pleural effusions and bibasilar opacities compatible with atelectasis. [id number] Narrative 02/18/2024 15:48 EST XR CHEST PORTABLE 1 VIEW ??02/18/2024 3:24 PM Clinical History/comments: hypoxia Comparison: 02/16/2024. Technique: Single portable AP view of the chest. Findings: Lines/tubes/devices: ??None Lungs: Left greater than right basilar opacities Pleura: Bilateral pleural effusions Cardiac and mediastinal contours: Stable Soft tissues and extrathoracic findings: No acute abnormalities Bones: No acute abnormalities Resulting Agency Comment [id number] Procedure Note Gordo Palm MD - 02/18/2024 [...] pleural effusions and bibasilar opacities compatible withatelectasis. [id number] Marcos Quintero MD IMG DIAGNOSTIC IMAGING OR [...] Result [facility] [address] [place] [address] * (ABNORMAL) COMPREHENSIVE METABOLIC PANEL (CMP) (02/18/2024 6:28 EST) Sodium 134(L) 136 - 145 mmol/L 02/18/2024 7:09 EST [facility] Potassium 4.5 3.5 - 5.0 mmol/L 02/18/2024 7:09 [facility] Chloride 97 96 - 110 mmol/L 02/18/2024 7:09 [facility] CO2 Total 36(H) 22 - 32 mmol/L 02/18/2024 7:09 [facility] Glucose 110(H) 70 - 99 mg/dl 02/18/2024 7:09 [facility] BUN 70(H) 10 - 26 mg/dL 02/18/2024 7:09 [facility] Creatinine 2.11(H) 0.66 - 1.25 mg/dL 02/18/2024 7:09 [facility] eGFR 30(L) >60 mL/min/1.7 3m2 02/18/2024 7:09 [facility] Total Protein 5.0(L) 6.3 - 8.2 g/dL 02/18/2024 7:09 [facility] Albumin 2.7(L) 3.4 - 4.9 g/dL 02/18/2024 7:09 [facility] Alkaline Phosphatase 80 38 - 126 U/L 02/18/2024 7:09 [facility] AST 33 15 - 46 U/L 02/18/2024 7:09 [facility] ALT 36 <50 U/L 02/18/2024 7:09 [facility] Bilirubin, Total <0.5 <1.4 mg/dL 02/18/20 7:09 [facility] Calcium 8.2(L) 8.5 - 10.5 mg/dL 02/18/2024 7:09 [facility] Albumin/Globulin Ratio 1.2 1.0 - 2.5 02/18/2024 7:09 [facility] Anion Gap 1(L) 5 - 14 mmol/L 02/18/2024 7:09 [facility] Blood VENOUS BLOOD / Unknown Venipuncture / Unknown 02/18/2024 6:28 EST 02/18/2024 6:38 EST us Pete Miller DO CHEMISTRY & BLOOD GAS ORDERABLES Final Result [facility] [address] [place] [address] * (ABNORMAL) COMPLETE BLOOD COUNT (02/18/2024 6:28 EST) WBC 13.90(H) 4.00 - 10.40 K/cmm 02/18/2024 6:45 [facility] RBC 3.41(L) 4.36 - 5.78 M/cmm 02/18/2024 6:45 [facility] Hemoglobin 11.0(L) 13.8 - 17.3 g/dL 02/18/2024 6:45 [facility] HCT 32.3(L) 39.5 - 50.2 % 02/18/2024 6:45 [facility] MCV 95 81 - 95 fL 02/18/2024 6:45 [facility] MCH 32.3 27.6 - 33.0 pg 02/18/2024 6:45 [facility] MCHC 34.1 32.8 - 36.4 g/dL 02/18/2024 6:45 [facility] RDW-CV 14.9(H) <14.2 % 02/18/2024 6:45 [facility] RDW-SD 51.8(H) <46.0 fl 02/18/2024 6:45 [facility] PLT 125(L) 141 - 377 K/cmm 02/18/2024 6:45 [facility] MPV 11.0 9.5 - 12.7 fL 02/18/2024 6:45 [facility] Blood VENOUS BLOOD / Unknown Venipuncture / Unknown 02/18/2024 6:28 EST 02/18/2024 6:32 EST us Pete Miller DO HEMATOLOGY & PF4 ORDERABLES Saadia l Result [facility] [address] [place] [address] * POCT GLUCOSE, INTERFACED (02/17/2024 17:48 EST) Glucose, POC 84 70 - 100 mg/dL 02/17/2024 17:49 [facility] HN LAB POC COMMENT (GLUCOSE) Test Performed by Nursing Services 02/17/2024 17:49 EST [facility] Blood CAPILLARY BLOOD / Unknown 02/17/2024 17:48 EST 02/17/2024 17:49 EST us Pete [place] DO POINT OF CARE TEST ORDERABLES Fi nal Result [facility] [address], [place] [id number] * XR HIP RIGHT 1 VIEW (02/17/2024 15:20 EST) Anatomical Region Laterality Modality Lower Extremities Right Computed Radio graphy 02/17/2024 16:1 3 EST Impressions 02/17/2024 16:13 EST FINDINGS/IMPRESSION: 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 No periprosthetic fracture is seen. No acute left hip abnormality is seen. Atherosclerotic calcifications are present bilaterally. [id number] Narrative 02/17/2024 16:13 EST XR HIP RIGHT [...] abnormality is seen. Atherosclerotic calcifications arepresent bilaterally. [id number] us Augustine Ceja MD [facility]AG[facility] [...] is seen. Atherosclerotic calcifications are present bilaterally. [id number] Narrative 02/17/2024 16:13 EST XR HIP RIGHT [...] of the lower pelvis. Resulting Agency Comment [id number] Procedure Note Gordo Palm MD - 02/17/2024 [...] abnormality is seen. Atherosclerotic calcifications arepresent bilaterally. [id number] Augustine Ceja MD [facility] OR DERABLES Final Result * [...] ORDERABLES Final Result Performing Organization Address City/[facility]/ZIP Co de Phone Number [facility] [address] [place] [address] * MAGNESIUM (02/17/2024 5:58 EST) [facility] Magnesium 2.1 1.7 - 2.8 mg/dL 02/17/2024 7:11 EST [facility] Blood VENOUS BLOOD / Unknown Venipuncture / Unknown 02/17/2024 5:58 EST 02/17/2024 6:07 EST Marti Horn MD CHEMISTRY & BLOOD GAS ORDERABLES Final Result Performing Organization Address [facility] Co de Phone Number [facility] [address] [place] [address] * (ABNORMAL) COMPREHENSIVE METABOLIC PANEL (CMP) (02/17/2024 5:58 EST) Sodium 134(L) 136 - 145 mmol/L 02/17/2024 6:18 [facility] Potassium 4.4 3.5 - 5.0 mmol/L 02/17/2024 6:18 [facility] Chloride 100 96 - 110 mmol/L 02/17/2024 6:18 [facility] CO2 Total 30 22 - 32 mmol/L 02/17/2024 6:18 [facility] Glucose 108(H) 70 - 99 mg/dl 02/17/2024 6:18 [facility] BUN 69(H) 10 - 26 mg/dL 02/17/2024 6:18 [facility] Creatinine 2.08(H) 0.66 - 1.25 mg/dL 02/17/2024 6:18 [facility] eGFR 31(L) >60 mL/min/1.7 3m2 02/17/2024 6:18 [facility] Total Protein 5.2(L) 6.3 - 8.2 g/dL 02/17/2024 6:18 [facility] Albumin 2.8(L) 3.4 - 4.9 g/dL 02/17/2024 6:18 [facility] Alkaline Phosphatase 83 38 - 126 U/L 02/17/2024 6:18 [facility] AST 36 15 - 46 U/L 02/17/2024 6:18 [facility] ALT 49 <50 U/L 02/17/2024 6:18 [facility] Bilirubin, Total 0.5 <1.4 mg/dL 02/17/20 6:18 [facility] Calcium 8.7 8.5 - 10.5 mg/dL 02/17/2024 6:18 [facility] Albumin/Globulin Ratio 1.2 1.0 - 2.5 02/17/2024 6:18 [facility] Anion Gap 4(L) 5 - 14 mmol/L 02/17/2024 6:18 [facility] Blood VENOUS BLOOD / Unknown Venipuncture / Unknown 02/17/2024 5:58 EST 02/17/2024 6:07 EST us Pete Miller DO CHEMISTRY & BLOOD GAS ORDERABLES Final Result [facility] [address] [place] [address] * (ABNORMAL) COMPLETE BLOOD COUNT (02/17/2024 5:58 EST) WBC 16.70(H) 4.00 - 10.40 K/cmm 02/17/2024 6:16 [facility] RBC 3.66(L) 4.36 - 5.78 M/cmm 02/17/2024 6:16 [facility] Hemoglobin 11.7(L) 13.8 - 17.3 g/dL 02/17/2024 6:16 [facility] HCT 33.7(L) 39.5 - 50.2 % 02/17/2024 6:16 [facility] MCV 92 81 - 95 fL 02/17/2024 6:16 [facility] MCH 32.0 27.6 - 33.0 pg 02/17/2024 6:16 [facility] MCHC 34.7 32.8 - 36.4 g/dL 02/17/2024 6:16 [facility] RDW-CV 14.7(H) <14.2 % 02/17/2024 6:16 [facility] RDW-SD 49.7(H) <46.0 fl 02/17/2024 6:16 [facility] PLT 128(L) 141 - 377 K/cmm 02/17/2024 6:16 [facility] MPV 10.6 9.5 - 12.7 fL 02/17/2024 6:16 [facility] Blood VENOUS BLOOD / Unknown Venipuncture / Unknown 02/17/2024 5:58 EST 02/17/2024 6:04 EST us Pete Miller DO HEMATOLOGY & PF4 ORDERABLES Saadia l Result [facility] [address] [place] [address] * (ABNORMAL) POCT GLUCOSE, INTERFACED (02/17/2024 5:58 EST) Glucose, POC 114(H) 70 - 100 mg/dL 02/17/2024 5:59 [facility] HN LAB POC COMMENT (GLUCOSE) Test Performed by Nursing Services 02/17/2024 5:59 [facility] Blood CAPILLARY BLOOD / Unknown 02/17/2024 5:58 EST 02/17/2024 5:59 EST us Pete Miller DO POINT OF CARE TEST ORDERABLES Fi nal Result Performing Organization Address [facility]/ZIP Co de Phone Number [facility] [address] [place] [address] * MRSA PCR (02/17/2024 5:53 EST) Pathologist [facility] MRSA/Staph aureus Result No Staphylococcus aureus detected by PCR 02/17/2024 10:53 EST [facility] Swab BOTH ANTERIOR NARES / Unknown Swab / Unknown 02/17/2024 5:53 EST 02/17/2024 7:50 EST us Pete Miller DO MICROBIOLOGY - GENERAL ORDERABLE S Final Result Performing Organization Address [facility] Co de Phone Number [facility] [address] [place] [address] * (ABNORMAL) POCT GLUCOSE, INTERFACED (02/16/2024 23:45 EST) Pathologist [facility] Glucose, POC 149(H) 70 - 100 mg/dL 02/16/2024 23:48 EST [facility] HN LAB POC COMMENT (GLUCOSE) Test Performed by Nursing Services 02/16/2024 23:48 EST [facility] Blood CAPILLARY BLOOD / Unknown 02/16/2024 23:45 EST 02/16/2024 23:48 EST us Pete Miller DO POINT OF CARE TEST ORDERABLES Fi nal Result Performing Organization Address [facility]/ZIP Co de Phone Number [facility] [address] [place] [address] * TYPE AND SCREEN (02/16/2024 20:00 EST) [...] [facility] [address] [place] [address] * CT ANGIO CHEST PE PROTOCOL (02/16/2024 [...] above interpretation and agree with the findings. [id number] Narrative 02/17/2024 10:[address] ANGIO CHEST [...] lesions. Multilevel degenerative changes. Resulting Agency Comment [id number] Procedure Note Sonia Salazar MD - 02/17/2024 [...] the above interpretation andagree with the findings. [id number] Pete Miller DO IMG CT ORDERABLES Final Result * XR HIP RIGHT 1 VIEW (02/16/2024 17:54 EST) Anatomical Region Laterality Modality Lower Extremities Right Computed Radio graphy 02/16/2024 18:2 7 EST Impressions 02/16/2024 18:27 EST Findings/impression: Redemonstrated right femoral neck fracture, not significantly changed. No left- sided hip fracture or dislocation. Mild degenerative changes of the left hip. The soft tissues are unremarkable. [id number] Narrative 02/16/2024 18:27 EST XR HIP LEFT 2-3 VIEWS OPTIONAL PELVIS, XR HIP RIGHT 1 VIEW ??02/16/2024 5:52 PM Signs and Symptoms/Comments: right hip pain Comparison: Pelvic x-ray 02/15/2024. Technique: AP orthopedic view of the pelvis which includes an AP view of both hips, with additional AP view of the left hip. Resulting Agency Comment [id number] Procedure Note Sonia Salazar MD - 02/16/2024 [...] theleft hip. The soft tissues are unremarkable. [id number] Ritesh Cardenas MD [facility] ORDERA BLES Final Result * XR HIP LEFT 2-3 VIEWS OPTIONAL PELVIS (02/16/2024 17:52 EST) Anatomical Region Laterality Modality Lower Extremities Left Computed Radio graphy 02/16/2024 18:2 7 EST Impressions 02/16/2024 18:27 EST Findings/impression: Redemonstrated right femoral neck fracture, not significantly changed. No left- sided hip fracture or dislocation. Mild degenerative changes of the left hip. The soft tissues are unremarkable. [id number] Narrative 02/16/2024 18:27 EST XR HIP LEFT [...] theleft hip. The soft tissues are unremarkable. [id number] us Ritesh Cardenas MD [facility] DIAGNOSTIC IMAGING [...] ORDERABLES F inal Result Performing Organization Address [facility] de Phone Number [facility] [address] [place] [address] * (ABNORMAL) PTT (02/16/2024 17:00 EST) PTT 20(L) 26 - 37 secs 02/16/2024 18:17 EST [facility] Blood VENOUS BLOOD / Unknown Venipuncture / Unknown 02/16/2024 17:00 EST 02/16/2024 17:30 EST Ritesh Cardenas MD HEMATOLOGY & PF4 ORDERABLES F inal Result Performing Organization Address [facility] de Phone Number [facility] [address] [place] [address] * (ABNORMAL) HEMOGLOBIN A1C (02/16/2024 17:00 EST) Hemoglobin A1c 6.1(H) <5.7 % 02/16/2024 21:15 [facility] Comment: Glycemic Status References: Normal: ??<5.7% Pre-Diabetes: ??5.7% - 6.4% Diagnostic of Diabetes: ??> or = 6.5% (if confirmed) Est Avg Glucose 128 mg/dL 21:15 [facility] Comment:The eAG represents t he A1c result expressed as average glucose in mg/dL. Blood VENOUS BLOOD / Unknown Venipuncture / Unknown 02/16/2024 17:00 EST 02/16/2024 17:16 EST Pete Miller DO CHEMISTRY & BLOOD GAS ORDERABLES Final Result Performing Organization Address [facility] de Phone Number [facility] [address] [place] [address] * (ABNORMAL) COMPREHENSIVE METABOLIC PANEL (CMP) (02/16/2024 17:00 [facility]) Sodium 140 136 - 145 mmol/L 02/16/2024 17:35 [facility] Potassium 5.2(H) 3.5 - 5.0 mmol/L 02/16/2024 17:35 [facility] Chloride 97 96 - 110 mmol/L 02/16/2024 17:35 [facility] CO2 Total 36(H) 22 - 32 mmol/L 02/16/2024 17:35 [facility] Glucose 179(H) 70 - 99 mg/dl 02/16/2024 17:35 [facility] BUN 70(H) 10 - 26 mg/dL 02/16/2024 17:35 [facility] Creatinine 2.54(H) 0.66 - 1.25 mg/dL 02/16/2024 17:35 [facility] eGFR 24(L) >60 mL/min/1.7 3m2 02/16/2024 17:35 [facility] Total Protein 5.4(L) 6.3 - 8.2 g/dL 02/16/2024 17:35 [facility] Albumin 3.0(L) 3.4 - 4.9 g/dL 02/16/2024 17:35 [facility] Alkaline Phosphatase 104 38 - 126 U/L 02/16/2024 17:35 [facility] AST 32 15 - 46 U/L 02/16/2024 17:35 [facility] ALT 50(H) <50 U/L 02/16/2024 17:35 [facility] Bilirubin, Total 0.6 <1.4 mg/dL 02/16/20 17:35 [facility] Calcium 9.1 8.5 - 10.5 mg/dL 02/16/2024 17:35 [facility] Albumin/Globulin Ratio 1.3 1.0 - 2.5 02/16/2024 17:35 [facility] Anion Gap 7 5 - 14 mmol/L 02/16/2024 17:35 [facility] Blood VENOUS BLOOD / Unknown Venipuncture / Unknown 02/16/2024 17:00 EST 02/16/2024 17:15 EST us Pete Miller DO CHEMISTRY & BLOOD GAS ORDERABLES Final Result [facility] [address], [place] [id number] * (ABNORMAL) COMPLETE BLOOD COUNT (02/16/2024 17:00 EST) WBC 19.76(H) 4.00 - 10.40 K/cmm 02/16/2024 17:38 [facility] RBC 3.85(L) 4.36 - 5.78 M/cmm 02/16/2024 17:38 [facility] Hemoglobin 12.5(L) 13.8 - 17.3 g/dL 02/16/2024 17:38 [facility] HCT 37.3(L) 39.5 - 50.2 % 02/16/2024 17:38 [facility] MCV 97(H) 81 - 95 fL 02/16/2024 17:38 [facility] MCH 32.5 27.6 - 33.0 pg 02/16/2024 17:38 [facility] MCHC 33.5 32.8 - 36.4 g/dL 02/16/2024 17:38 [facility] RDW-CV 14.8(H) <14.2 % 02/16/2024 17:38 [facility] RDW-SD 53.3(H) <46.0 fl 02/16/2024 17:38 [facility] PLT 130(L) 141 - 377 K/cmm 02/16/2024 17:38 [facility] MPV 11.4 9.5 - 12.7 fL 02/16/2024 17:38 EST [facility] Blood VENOUS BLOOD / Unknown Venipuncture / Unknown 02/16/2024 17:00 EST 02/16/2024 17:16 EST Pete Miller DO HEMATOLOGY & PF4 ORDERABLES Saadia l Result Performing Organization Address [facility]/ZIP Co de Phone Number [facility] [address] [place] [address] * (ABNORMAL) PROCALCITONIN (02/16/2024 17:00 EST) Procalcitonin [...] GAS ORDERABLES Final Result Performing Organization Address [facility] Co de Phone Number [facility] [address] [place] [address] * HEPARIN LEVEL - UNFRACTIONATED HEPARIN (02/16/2024 [...] ORDERABLES Saadia l Result Performing Organization Address [facility] Co de Phone Number [facility] [address] [place] [address] * (ABNORMAL) POCT GLUCOSE, INTERFACED (02/16/2024 16:59 [...] ORDERABLES Fi nal Result Performing Organization Address [facility] de Phone Number [facility] [address] [place] [address] * EKG 12-LEAD (02/16/2024 16:44 EST) 02/16/2024 16:4 4 EST Narrative [facility] EKG - 02/28/2024 10:28 EST ? [facility] ? Test Date: ?2024-02-16 Pat Name: ? NOE SUE ? Department: ?? Jose 4 ? Room: ? M415 Gender: ? Male ? Manual Winder: ?? : ?1940 ? Requested By: JESUS FREEMAN Order Number: [id number] ? Zulay MD: ?? IMANI LOMAS MD ? Measurements Intervals ?Baltic ? Rate: ? 104 ?P: ?73 WI: ? 147 ?QRS: ?-58 QRSD: ? 127 [...] Note Imani Lomas MD - 02/28/2024 [facility] Test Date: 2024-02-16 Pat Name: NOE SUE Department: [place] [address] Room: [facility] Gender: Male Manual Winder: : 1940 Requested By: JESUS FREEMAN Order Number: [id number] Reading MD: IMANI LOMAS MD Measurements Intervals Baltic Rate: 104 P: 73 WI: 147 QRS: -58 QRSD: 127 T: 61 [...] preliminary report. Edited by CRISTELA TERRY MD [id number] 20:18:03 EST. I reviewed the tracing and [...] Chronic obstructive pulmonary disease, unspecified COPD type ([facility]) [J44.9] Pulmonary hypertension ([facility]) [I27.20] Other chronic pulmonary heart diseases Atrial fibrillation, unspecified type ([facility]) [I48.91] Urinary retention [R33.9] Retention of urine, unspecified Hypertension, unspecified type [I10] Thrush [B37.0] Candidiasis of mouth PFO (patent foramen ovale) Ostium secundum type atrial septal defect Pulmonary emphysema, unspecified emphysema type ([facility]) Closed right hip fracture, initial encounter ([facility]) Closed right hip fracture, initial encounter ([facility]) documented in this encounter Admitting Diagnoses Diagnosis Acute hypoxic respiratory failure ([facility]) Closed right hip fracture, initial encounter ([facility]) documented in this encounter Administered Medications Inactive [...] Units Given 02/27/2024 8:10 EST 2,000 Units ojpNPUomf-DALHYAKuawt-joaGKMCEA-ropivacaine 80 mcg-0.5 mg-30 mg-150 mg periarticular syringe [...] Until Discontinued, Routine 0810 (Given - Provider: Juilssa Gavin RN)2015 (Given - Provider: Corrie Davidson [...] 40 mg 3 02/0802/16/2024 polyethylene glycol 3350 ([place] RALAX) packet 17 g 2 02/18/2024 02/16/2024 [...] documented as of this encounter Care Teams Corporate Receptionist Relationship Specialty Start Date End Date Suzie Villagomez MD [address] [place] [id number] PCP - General Family Medicine - Primary Care 02/15/24 documented as of this encounter
--- OUTSIDE RECORDS SUMMARY | 2024-04-01 21:03 | XMS_ITS | Encounter Summary ---
Author Organization [facility] Address [address] [place] [address] Care Team Providers Care Futures Trader Name Role Phone Suzie Quan MD Primary Care Provider [phone] Encounter Details Date Type Department Care Team (Latest Contact Info) Description 02/16/2024 Travel Social History Tobacco Use Types Packs/Day Years Used Date Smoking Tobacco: Former Cigarettes Alcohol Use Standard Drinks/Week Comments Never 0 (1 standard drink = 0.6 oz pur e alcohol) [facility] Utilities Answer Date Recorded In the past 12 months has th e electric, gas, oil, or water [employer] threatened to shut off services in your [...] in the past 12 m [facility], were you homeless or living in a care home (including now)? No 02/16/2024 Interpersonal Safety Answer [...] Contact Info) Description 04/05/2024 10:15 EST Appointment [employer] [facility] [address] [place] [address] 04/05/2024 10:30 EST Post-op Visit [facility] Orthopedic Trauma - [address] [address] Ko Marquis PA-C [address] [place] [address] documented as of this encounter Visit Diagnoses Not on filedocumented in this encounter Additional Health Concerns Infection Onset Date Last Indicated Resolved Time Respiratory rule-out Comment:Negative testing 02/16/2024 02/16/2024 02/17/2024 7:26 EST documented as of this encounter Care Teams Futures Trader Relationship Specialty Start Date End Date Suzie Quan MD [address] [place] [address] PCP - General Family Medicine - Primary Care 02/15/24 documented as of this encounter
--- OUTSIDE RECORDS SUMMARY | 2024-04-01 21:03 | XMS_ITS | Encounter Summary ---
Author Organization [facility] Address [address] [place] [address] Care Team Providers Care Security Messenger Name Role Phone Suzie Quan MD Primary Care Provider [phone] Reason for Visit * Auth/Cert (Routine) Specialty Diagnoses / Procedures Referred By Conthank t Referred To Contact Diagnoses Acute hypoxic respiratory failure ([facility]) Hip fracture Referral ID Status Reason Start Date Expiration Date Visits Re quested Visits Authorized [id number] 1 1 Encounter Details Date Type Department Care Team (Late st Contact Info) Description 02/17/2024 11:57 EST Anesthesia Event [facility] [place] OR [address] [place], [place] [phone] Jason Morse MD [address] [place] [address], Level 2 [place] [phone] Anesthesia Record Procedure Summary Procedure Name Responsible [...] drink = 0.6 oz pur e alcohol) [facility] Utilities Answer Date Recorded In the past 12 months has [employer], gas, oil, or water [employer] threatened to shut off services in your [...] any time in the past 12 m [facility], were you homeless or [...] Date/Time: 02/17/2024 13:05 Staffing Performed: anesthesiologist and resident/SPECIAL ED ASSISTANT/AA Performed by: Jason Morse MD Authorized by: [...] Reason for Procedure: surgical anesthesia Staffing Performed: resident/SPECIAL ED ASSISTANT/AA and anesthesiologist Performed by: Lio Billings AA [...] atrial fibrillation [not anticoagulated], who presented to [facility] s/p fall and was found to have R femoral neck fracture... [facility] ED labs notable for WBC 22, procal 3, creatinine 3 (baseline ~1), and potassium 6. He was subsequently transferred to [facility] 02/14 for surgical management. On arrival, [...] -->0.244. He was confirmed DNR/DNI. Transferred from [facility] to [facility] MICU for preoperative optimization. Granddaughter conforms DNR/DNI [...] [facility] [address] [place], [place] [phone] 04/05/2024 10:30 EST Post-op Visit [facility] Orthopedic Trauma - [facility] [address] [place], [place] [phone] Ko Marquis PA-C [address] [place] [phone] documented as of this encounter Procedures Procedure Name Priority Date/Time Associated Diagnosis Comments ANESTHESIA ARTERIAL LINE PLACEMENT Routine 02/17/2024 13:05 EST ANESTHESIA SPINAL BLOCK Routine 02/17/2024 12:25 EST documented in this encounter Results * AL ARTL CATHJ/CANNULJ MNTR/TRANSFUSION SPX PRQ (02/17/2024 13:05 EST) Narrative [facility] POINT OF CARE - 02/17/2024 13:05 EST [...] Final Result [facility] POINT OF CARE * AL AN SPINAL BLOCK - CATHETER (02/17/2024 12:25 EST) Narrative Lio Billings AA - 02/17/2024 12:25 EST Lio Billings AA ? 02/17/2024 12:28 Spinal Block Start time: 02/17/2024 12:27 End time: 02/17/2024 12:27 Reason for Procedure: ??surgical anesthesia Staffing Performed: resident/SPECIAL ED ASSISTANT/JERRI and anesthesiologist Performed by: Lio Billings [...] mg documented in this encounter Care Teams Security Messenger Relationship Specialty Start Date End Date Suzie Quan MD [address] [place] [phone] PCP - General Family Medicine - Primary Care 02/15/24 documented as of this encounter
--- OUTSIDE RECORDS SUMMARY | 2024-04-01 21:03 | XMS_ITS | Encounter Summary ---
Author Organization [facility] Address [address] [place] [address] Care Team Providers Care Jelly Filter Tender Name Role Phone Suzie Villagomez MD Primary Care Provider [phone] Reason for Visit * Auth/Cert (Routine) Specialty Diagnoses / Procedures Referred By Conthank t Referred To Contact Diagnoses Closed right hip fracture, initial encounter ([facility]) Hip fracture Referral ID Status Reason Start Date Expiration Date Visits Re quested Visits Authorized [id number] 1 1 Encounter Details Date Type Department Care Team (Latest Contact Info) Description 02/15/2024 13:50 EST - 02/16/2024 14:42 EST Hospital Encounter [facility] Intensive Care Unit [address] [place] [phone] Homer Tan MD [address] [place] [address] [phone] Krystian Anne MD [address] [place] [phone] Leda Ng MD [address] [place] [phone] Closed right hip fracture, initial encounter ([facility]) [S72.001A] (Primary Dx); Acute on chronic respiratory failure with hypoxia and hypercapnia ([facility]) [J96.21, J96.22]; Pneumonia due to infectious organism, unspecified laterality, unspecified part of lung [J18.9]; Heart failure, unspecified HF chronicity, unspecified heart failure type (HCC-CMS); Pulmonary HTN (HCC-CMS); Pulmonary emphysema, unspecified emphysema type ([facility]) Discharge Disposition: Short Term Hospital Social History Tobacco Use Types Packs/Day Years Used Date Smoking Tobacco: Former Cigarettes Tobacco Cessation:Counseling Given: No Alcohol Use Standard Drinks/Week Comments Never 0 (1 standard drink = 0.6 oz pur e alcohol) [facility] Utilities Answer Date Recorded In the past 12 months has th e [email or web address], gas, oil, or water company threatened to [...] any time in the past 12 m [facility], were you homeless or living in a mcfp (including now)? No 02/16/2024 Interpersonal Safety Answer [...] Date: 02/16/24 Disposition (location):Transfer to ICU at [facility] Dr Cardenas accepting physician Condition at Discharge: Critical - Severe Pulmonary HTN on High Flow Reason for Admission (chief complaint):Closed right hip fracture Principal/Final Diagnosis: Closed right hip fracture, initial encounter ([facility]) Additional Problems Managed in the Hospital: Active Hospital Problems Diagnosis Date Noted *Closed right hip fracture, initial encounter ([facility]) 02/15/2024 Heart failure ([facility]) 02/16/2024 Pulmonary HTN ([facility]) 02/16/2024 Pulmonary emphysema ([facility]) 02/16/2024 Acute on chronic respiratory failure with hypoxia and hypercapnia ([facility]) 02/15/2024 Pneumonia due to infectious organism 02/15/2024 Resolved Hospital Problems No resolved problems to display. Transition of care: [facility] Transition of Care report automatically [...] Severe Pulmonary Hypertension patient is transferring to [facility] for further optimization and stabilization [...] (no record of anticoagulation in records from [facility]), who presents as a transfer from [facility] for surgical management of a right femoral neck fracture after a fall. Anesthesia at [facility] was uncomfortable with doing surgery there due to his oxygen requirements baseline and he has transferred here for surgical and anesthesiology evaluation. Workup in the ED at [facility] was notable for white blood cell count 22,000, procalcitonin 3, creatinine 3, and potassium of 6. He was reported to have a baseline creatinine of about 1. He has no prior records available in our chart or in care everywhere. On arrival to [facility] he reports falling two days ago. He said he felt dizzy/lightheaded before falling and lost his balance. He denies tripping and was on the ground for 2-3 hours crawling around on his knees. He denies any recent fever, chills, chest pain, shortness of breath, or cough. He says thathe started to cough at [facility] once he was given a breathing treatment. He said he wears 3-4L O2 at home intermittently. He denies being on apixaban or any other blood thinner. His reported medications are aspirin, amlodipine, and metoprolol. Soon after arrival at [facility] he became hypoxic and was placedon increasing O2 up to 10L via oxymask and was then transferred up to the ICU. He is requesting DNR/ DNI. Hospital Course: Acute on chronically ill 83 y.o. male with a PMHx of COPD with chronic hypoxic respiratory failure (on 3-5 L oxygen at baseline) and atrial fibrillation on aspirin (no record of anticoagulation in records from [facility]), and hypertension who presented as a transfer from [facility] for surgical management of a right femoral neck fracture after a fall. Anesthesia at [facility] was uncomfortable with doing surgery there [...] dysfunctiondiltiazem infusion was discontinued. ECHO completed at [facility] on 02/16/24 suggesting severe pulmonary hypertension. Given need for invasivemonitoring with PA catheter vs ABI in cases of severe pulmonary hypertension [facility] Anesthesia Department is recommending that the patient transfer to a tertiary care center for surgery. Discussed case with Dr Ceja ([facility] Orthopedic Surgeon) and Dr Cuadra ([facility]). Dr Cardenas has accepted the patient in transfer. Plan to medically optimize patient prior to surgery. Acute on chronic hypoxic and hypercarbic respiratory failure 2/2 COPD exacerbation, volume overload, community acquired pneumonia: DNR/DNI. COVID/flu/RSV negative. Extended respiratory panel is pending. -HFNC -Duonebs 4x daily -Replace ETHICS INSTRUCTOR Anoro Ellipta with Symbicort - Ceftriaxone and [...] a cemented hip hemiarthroplasty. Not on anticoagulation ETHICS INSTRUCTOR. Will need to see an improvement in [...] pressures on a background of hypertension: -hold ETHICS INSTRUCTOR amlodipine and metoprolol CHRISTIANO and hyperkalemia: -- Patient reportedly down for extended period of time prior to presentation. -- Reported to have a creatinine of 3 at [facility]. On admission to [facility] creatinine was 2.5. Down-trended to 2.3 this am. (Reported baseline creatinine of 1) Hyperkalemia is mild. Gerd: -Continue ETHICS INSTRUCTOR pantoprazole Relevant Imaging/Procedures Performed: CXR 02/16/24 IMPRESSION [...] PCR (Does not include influenza or RSV) [[id number]] Collected: 02/16/24 1207 Lab Status: In process Specimen: Swab from Nasopharynx Updated: 02/16/24 1239 MRSA PCR [[id number]] Collected: 02/16/24 1136 Lab Status: In process Specimen: Swab from Nares Updated: 02/16/24 1145 120 minutes of critical care time was spent in stabilization and coordination of care for transfer to [facility]. This included time at bedside, time reviewing laboratory results and studies and time spent communicating with [facility] and coordinating care. Without these [...] Disposition Code Departure Means Destination Comment s [facility] (Acute Care Facility) documented in this encounter Progress Notes * Dara Burnham, RD - 02/16/2024 2376 EST Brief Nutrition Notes Nsg generated consult for poor appetite, wgt loss, skin issues. Plan for d/c to [facility]. Currently NPO, unable to assess [...] decreased Response: Mild response, increase subjective per [employer] Pulse: <100 Resp Rate: 18-25 SOB: At [...] to 5L if needed. Pt transferring to [facility] this afternoon for surgical procedure TOÑA SILVER, RT 02/16/24 * Hilary Guerrero - 02/16/2024 1139 EST Initial Case Management/Social Work Assessment and Discharge Plan/Readmission Risk Assessment REASON FOR ADMISSION: Closed right hip fracture, initial encounter ([facility]) Patient understands reason for admission: Yes PATIENT INFO VERIFIED: PCP, Contact Info, Address Type of housing (single family, condo, apartment, halfway, single room occupancy, [facility] funded hotel room, group mcfp) - House, two levels Who does the patient live with? Significant other Does the patient have access to their own bedroom/bathroom/kitchen - or is it shared with others? Shared Name of [facility] complex ([facility], [facility], etc)- n/a Housing Authority/Managing Organization - n/a Community Care Providers (caser, [facility] nurse, etc) name and contact information- n/a [...] Expected Discharge on IV Antibiotics: No CULTURAL, BAHAI and/or LANGUAGE factors affecting health care/discharge planning: Spiritual/Cultural Requests: Health Care Liaison support Language/Literacy Needs Do you need us to provide any communication aids or devices?: No Insurance Information: Medical Insurance: Yes Type of insurance: Medicare, Supplemental plan to Medicare Medicare type: B, A Supplemental: [facility] Referred to patient financial services: No [...] Health Services: Nurse visit DME Provider: Pharmacy: [id number] - [place], [place] - [address] [facility] [phone] Home Health: [facility] Other: [facility] TRANSITION PLAN: [...] food prep only. No specialists. Active with [facility] (nursing and PT). CM confirmed this with [facility]. Patient was a transfer here from [facility]. He may need transfer to [facility], waiting to hear. If he remains here [...] (?not on anticoagulation) presented as transfer from [facility] for surgical management of right femoral [...] perioperative complications. Anesthesia requested requesting transfer to [facility]. Discussed with him possibility of optimization and [...] 1456H Pt ordered transferred for surgery to [facility] 4. Report given to accepting RN. Transported via [facility]. VSS and stable on [place] O2. [...] decreased Response: Mild response, increase subjective per [employer] Pulse: >100 Resp Rate: 26-32 SOB: With [...] O2 needs Action/ Response: Pt transferred from [facility] s/p R pelvic closed Fx. Pt initially [...] Add LDA for any identified wounds Add Maurepas image for any suspected PI or non surgical wounds Order wound consult if suspected PI identified If Hernando is < or = to 16, initiate Pressure Injury Prevention Bundle ([id number]). 02/15/2024 17:43 * Kimberly Joshi, RT - [...] (no record of anticoagulation in records from [facility]), who presents as a transfer from [facility] for surgical management of a right femoral neck fracture after a fall. Anesthesia at [facility] was uncomfortable with doing surgery there due to his oxygen requirements baseline and he has transferred here for surgical and anesthesiology evaluation. Workup in the ED at [facility] was notable for white blood cell count 22,000, procalcitonin 3, creatinine 3, and potassium of 6. He was reported to have a baseline creatinine of about 1. He has no prior records available in our chart or in care everywhere. On arrival to [facility] he reports falling two days ago. He said he felt dizzy/lightheaded before falling and lost his balance. He denies tripping and was on the ground for 2-3 hours crawling around on his knees. He denies any recent fever, chills, chest pain, shortness of breath, or cough. He says thathe started to cough at [facility] once he was given a breathing treatment. He said he wears 3-4L O2 at home intermittently. He denies being on apixaban or any other blood thinner. His reported medications are aspirin, amlodipine, and metoprolol. Soon after arrival at [facility] he became hypoxic and was placedon increasing [...] who is admitted as a transfer from [facility] for surgical management of a right femoral neck fracture. Admission has been complicated by acute on chronic hypoxic and hypercarbic respiratory failure 2/2 COPD exacerbation and community acquired pneumonia. He is now on HFNC vs BiPAP in the ICU. Per report from [facility], he is on apixaban and last took it the night of 02/13. However, he denies taking this medication and it isn't listed in his home medications in the list provided on the records from [facility]. Plan Acute on chronic hypoxic and hypercarbic respiratory failure 2/2 COPD exacerbation and community acquired pneumonia: Has had difficulty tolerating the BiPAP and is now on HFNC. Minimal improvement inpH and pCO2 with BiPaP. Continues to confirm DNR/DNI. COVID/flu/RSV negative. -HFNC vs BiPaP -Appreciate RT assistance -Critical care consulted, appreciate recommendations -Repeat VBG PRN -Maintain SpO2 88-92% -Duonebs 4x daily -Replace ETHICS INSTRUCTOR Anoro Ellipta with Symbicort - Ceftriaxone and doxycycline -Prednisone 40mg daily -Trial of 40mg IV furosemide x1 Fall and right femoral neck fracture: Not on anticoagulation ETHICS INSTRUCTOR based on records. Will need to seean [...] pressures on a background of hypertension: -hold ETHICS INSTRUCTOR amlodipine and metoprolol Elevated creatinine, hyperkalemia: Reported to have a creatinine of 3 at [facility] and it is 2.5 here. Received report that he has a baseline creatinine of 1, but I am unable to confirm this. Hyperkalemia is mild. -Daily BMP -Strict I's and O's Gerd: -Continue ETHICS INSTRUCTOR pantoprazole VTE Prophylaxis Seqential Compression Device Code: [...] (?not on anticoagulation) presented as transfer from [facility] for surgical management of right femoral neck fracture after a fall. Unable to obtain detailed history from the patient. On arrival to [facility], he is in respiratory distress with diminished [...] NEUTROABS 19.49* -- No results for input(s): [id number], FOLATE in the last 72 hours. BMP: [...] results for input(s): PHISTAT, PCOISTAT, POISTAT, POCTCO2, L6ZIBOOU, BEART, BDART, POCFIO2 in the last 72 hours. VBGs: No results for input(s): PHVENOUS, [id number] in the last 72 hours. Inflammatory Markers: [...] fibrillation (?not on anticoagulation)presented as transfer from [facility] for surgical management of right femoral [...] Rate control if needed NSTEMI Type II [facility] demand related Renal: CHRISTIANO- monitor Infectious Disease: [...] male who fell yesterday and presented to [facility] where workup revealed a displaced right femoral neck fracture. He also however has severe baseline COPD that has been exacerbated and was not felt to be appropriate for treatment there and transferred to [facility] for medical stabilization and care prior to [...] does not use drugs. - lives at [address] [place] [address] Hx: family history is not on file. [...] 02/16/2024 1247 EST Initial Wound Care Consult [facility] In-Patient in service educator Service Service Date: 02/16/2024 Admit Date: 02/15/2024 Hospital Day: 1 Consult request by: Kiet LOCK on 02/16/24 Reason for consult: patient with two stage 2-3 pressure injuries to sacrum Admission: Bi Sue is a 83 y.o. yo person transferred from [facility] ED for surgery of right femoral neck [...] LOCK. Cathy Chavez, MSN, RN, CWCN In-patient in service educator Please contact the wound care team via [employer] chat group [facility] Wound Care Team with questions or concerns. * Plan of Care - Nicole Kaur - 02/16/2024 1156 EST Patient is being ruled out for respiratory viruses. Please maintain droplet precautions. Do not cohort at this time. Please message [facility] Infection Prevention via Secure Chat with questions. [...] Contact Info) Description 04/05/2024 10:15 EST Appointment [facility] Xray [address] [place] [address] 04/05/2024 10:30 EST Post-op Visit [facility] Orthopedic Trauma - [facility] [address] [place], [place] [id number] Ko Marquis PA-C [address] [place] [phone] documented as of this encounter [...] 02/19/2024 14:1 2 EST us Scan 2 Quality Assurance Director PROCEDURE/MINOR SURGICAL OR DERABLES Final Result * EXPANDED RESPIRATORY VIRAL PANEL, PCR (DOES NOT INCLUDE INFLUENZA OR RSV) (02/16/2024 12:07 EST) Paraflu Type 1 Rslt (PF1RES) Negative Negative 02/17/2024 1:26 [facility] Paraflu Type 2 Rslt (PF2RES) Negative Negative 02/17/2024 1:26 [facility] Paraflu Type 3 Rslt (PF3RES) Negative Negative 02/17/2024 1:26 [facility] Paraflu Type 4 Rslt Negative Negative 02/16 1:26 [facility] Rhinovirus RNA Rslt (RVRES) Negative Negative 02/17/2024 1:26 [facility] Metapneumovirus RNA Rslt (HMVRES) Negative Negative 02/17/2024 1:26 [facility] Adenovirus DNA Rslt (ADVRES) Negative Negative 02/17/2024 1:26 [facility] Swab NASOPHARYNGEAL STRUCTURE / Unknown Swab / Unknown 02/16/2024 12:07 EST 02/16/2024 12:39 EST us Domniique Goldstein MD MICROBIOLOGY - GENERAL ORDERABLE S Final Result [facility] [address] [place] [address] * (ABNORMAL) POCT GLUCOSE, INTERFACED (02/16/2024 11:39 EST) Glucose, POC 177(H) 70 - 100 mg/dL 02/16/2024 11:42 EST [facility] HN LAB POC COMMENT (GLUCOSE) [facility] 02/16/2024 11:42 EST [facility] Blood CAPILLARY BLOOD / Unknown 02/16/2024 11:39 EST 02/16/2024 11:42 EST Leda Ng MD POINT OF CARE TEST ORDERA BLES Final Result Performing Organization Address [facility]/ZIP Co de Phone Number [facility] [address] [place] [phone] * MRSA PCR (02/16/2024 11:36 EST) MRSA PCR Not Detected Not Detected 02/16/2024 13:27 [facility] Comment:MRSA target DNA is n ot detected (presumed not colonized with MRSA). Swab BOTH ANTERIOR NARES / Unknown Swab / Unknown 02/16/2024 11:36 EST 02/16/2024 11:45 EST Dominique Goldstein MD MICROBIOLOGY - GENERAL ORDERABLE S Final Result Performing Organization Address [facility] Co de Phone [facility] [address] [place] [phone] * LEGIONELLA ANTIGEN DETECTION, URINE (02/16/2024 11:36 [...] ORDERABLE S Final Result Performing Organization Address City/[facility]/ZIP Co de Phone Number [facility] [address] [place] [address] * STREPTOCOCCUS PNEUMONIAE ANTIGEN, URINE (02/16/2024 11:36 [...] ORDERABLE S Final Result Performing Organization Address [facility] Co de Phone Number [facility] [address] [place] [address] * XR CHEST PORTABLE 1 VIEW (02/16/2024 10:59 EST) Anatomical Region Laterality Modality Computed Radiogr aphy 02/16/2024 11:0 5 EST Impressions 02/16/2024 11:05 EST Small bilateral pleural effusions. Slight interval increase in patchy airspace opacities at both lung bases and in the suprahilar right lung. [id number] Narrative 02/16/2024 11:05 EST XR CHEST PORTABLE [...] findings: ??Normal. Bones: Normal. Resulting Agency Comment [id number] Procedure Note Aaron Boone MD - 02/16/2024 [...] bases and in the suprahilar right lung. [id number] us Leda Ng MD IMG DIAGNOSTIC IMAGING OR DERABLES Final Result * ECG REPORT - SCANNED (02/16/2024 10:05 EST) 02/16/2024 10:0 5 EST us Scan 2 Quality Assurance Director PROCEDURE/MINOR SURGICAL OR DERABLES Final Result * [...] LES Final Result [facility] [address] [place] [address] * TRANSTHORACIC ECHO (TTE) COMPLETE W/DOPPLER W/CF [...] i-STAT 7.44(H) 7.31 - 7.41 02/16/2024 5:43 [facility] pCO2, Venous, i-STAT 45 41 - 51 mmHg 02/16/2024 5:43 [facility] pO2, Venous, i-STAT 41 30 - 50 mmHg 02/16/2024 5:43 [facility] TCO2, Venous, i-STAT 32(H) 22 - 28 mmol/L 02/16/2024 5:43 [facility] O2 Saturation, Venous, i-STAT 78 60 - 85 % 02/16/2024 5:43 [facility] Base Excess(+) / Deficit(-), Venous, i-STAT 6(H) -2 - 3 mmol/L 02/16/2024 5:43 [facility] Blood VENOUS BLOOD / Unknown 02/16/2024 5:41 EST 02/16/2024 5:43 EST Narrative [facility] - 02/16/2024 5:43 EST Test Performed by Respiratory us Lacey Hassan DO POINT OF CARE TEST ORDERABL ES Final Result [facility] [address] [place] [address] * (ABNORMAL) BASIC METABOLIC PANEL (BMP) (02/16/2024 5:37 EST) Sodium 134(L) 136 - 145 mmol/L 02/16/2024 6:05 [facility] Potassium 5.3(H) 3.5 - 5.0 mmol/L 02/16/2024 6:05 [facility] Comment:Moderate hemolysis i dentified, interpret with caution as hemolysis will elevate potassium result. Chloride 99 96 - 110 mmol/L 02/16/2024 6:05 [facility] CO2 Total 29 22 - 32 mmol/L 02/16/2024 6:05 [facility] Anion Gap 6 5 - 14 mmol/L 02/16/2024 6:05 [facility] Glucose 186(H) 70 - 99 mg/dl 02/16/2024 6:05 [facility] Calcium 7.8(L) 8.5 - 10.5 mg/dL 02/16/2024 6:05 [facility] BUN 70(H) 10 - 26 mg/dL 02/16/2024 6:05 [facility] Comment:Moderate hemolysis i dentified, interpret with caution as results may be affected due to hemolysis. Creatinine 2.30(H) 0.66 - 1.25 mg/dL 02/16/2024 6:05 [facility] eGFR 27(L) >60 mL/min/1.7 3m2 02/16/2024 6:05 [facility] Blood VENOUS BLOOD / Unknown Venipuncture / Unknown 02/16/2024 5:37 EST 02/16/2024 5:43 EST us Homer Tan MD CHEMISTRY & BLOOD GAS ORDERABLE S Final Result [facility] [address] [place] [address] * CK (02/16/2024 5:37 EST) CK 114 <=250 U/L 02/16/2024 6:05 [facility] Comment:Moderate hemolysis i dentified, interpret with caution as results may be affected due to hemolysis. Blood VENOUS BLOOD / Unknown Venipuncture / Unknown 02/16/2024 5:37 EST 02/16/2024 5:43 EST us Krystian Anne MD CHEMISTRY & BLOOD GAS ORDERAB LES Final Result Performing Organization Address City/[facility]/ZIP Co de Phone Number [facility] [address] [place] [address] * HN LAB CBC SMEAR REVIEW (02/16/2024 5:36 EST) Differential Comment Slide was examined by a technologist to verify the WBC and/or platelet count. 02/16/2024 6:01 [facility] Blood VENOUS BLOOD / Unknown Venipuncture / Unknown 02/16/2024 5:36 EST 02/16/2024 5:43 EST us Homer Tan MD HEMATOLOGY & PF4 ORDERABLES Fin al Result Performing Organization Address [facility] Co de Phone Number [facility] [address] [place] [address] * (ABNORMAL) COMPLETE BLOOD COUNT (02/16/2024 5:36 EST) WBC 19.87(H) 4.00 - 10.40 K/cmm 02/16/2024 6:01 [facility] RBC 4.14(L) 4.36 - 5.78 M/cmm 02/16/2024 6:01 [facility] Hemoglobin 13.4(L) 13.8 - 17.3 g/dL 02/16/2024 6:01 [facility] HCT 40.3 39.5 - 50.2 % 02/16/2024 6:01 [facility] MCV 97(H) 81 - 95 fL 02/16/2024 6:01 [facility] MCH 32.4 27.6 - 33.0 pg 02/16/2024 6:01 [facility] MCHC 33.3 32.8 - 36.4 g/dL 02/16/2024 6:01 [facility] RDW-CV 14.9(H) <14.2 % 02/16/2024 6:01 [facility] RDW-SD 53.8(H) <46.0 fl 02/16/2024 6:01 [facility] PLT 140(L) 141 - 377 K/cmm 02/16/2024 6:01 [facility] Blood VENOUS BLOOD / Unknown Venipuncture / Unknown 02/16/2024 5:36 EST 02/16/2024 5:43 EST us Homer Tan MD HEMATOLOGY & PF4 ORDERABLES Fin al Result Performing Organization Address City/[facility]/ZIP Co de Phone Number [facility] [address] [place] [address] * (ABNORMAL) TROPONIN I (02/16/2024 1:35 EST) Troponin I (ng/mL) 0.323(H) <0.034 ng/mL 02/16/2024 2:32 EST [facility] Blood VENOUS BLOOD / Unknown Venipuncture / Unknown 02/16/2024 1:35 EST 02/16/2024 1:43 EST Narrative [facility] - 02/16/2024 2:32 EST The results of this assay can be falsely lowered due to the consumption of Biotin. us Krystian Anne MD CHEMISTRY & BLOOD GAS ORDERAB LES Final Result [facility] [address] [place] [address] * (ABNORMAL) TROPONIN I (02/15/2024 17:51 EST) Troponin I (ng/mL) 0.403(H) <0.034 ng/mL 02/15/2024 18:30 EST [facility] Blood VENOUS BLOOD / Unknown Venipuncture / Unknown 02/15/2024 17:51 EST 02/15/2024 17:58 EST Narrative [facility] - 02/15/2024 18:30 EST The results of this assay can be falsely lowered due to the consumption of Biotin. us Krystian Anne MD CHEMISTRY & BLOOD GAS ORDERAB LES Final Result Performing Organization Address [facility] Co de Phone Number [facility] [address] [place] [address] * (ABNORMAL) POCT BLOOD GAS, CG8 I-STAT (02/15/2024 17:00 EST) Pathologist [facility] pH, Venous, i-STAT 7.28(L) 7.31 - 7.41 02/15/2024 17:04 [facility] pCO2, Venous, i-STAT 63(H) 41 - 51 mmHg 02/15/2024 17:04 [facility] pO2, Venous, i-STAT 30 30 - 50 mmHg 02/15/2024 17:04 [facility] TCO2, Venous, i-STAT 31(H) 22 - 28 mmol/L 02/15/2024 17:04 [facility] O2 Saturation, Venous, i-STAT 47(L) 60 - 85 % 02/15/2024 17:04 [facility] Base Excess(+) / Deficit(-), Venous, i-STAT 3 -2 - 3 mmol/L 02/15/2024 17:04 [facility] Blood VENOUS BLOOD / Unknown 02/15/2024 17:00 EST 02/15/2024 17:04 EST Narrative [facility] - 02/15/2024 17:04 EST Test Performed by Respiratory us Krystian Anne MD POINT OF CARE TEST ORDERABLES Final Result Performing Organization Address [facility]/ZIP Co de Phone Number [facility] [address] [place] [address] * EKG 12-LEAD (02/15/2024 16:26 EST) 02/15/2024 16:2 6 EST Narrative [facility] 02/16/2024 9:57 EST ? [facility] ? Test Date: ?2024-02-15 Pat Name: ? BI SUE ? Department: ? Room: ? 305 Gender: ? Male ? Pipe Setter: ?? CS : ?1940 ? Requested By: YURY NAYLOR Order Number: [id number] ? Reading MD: ?? CARLOS ALBERTO REYNOLDS MD ? Measurements Intervals ?[place] ? Rate: ? 110 ?P: ?77 MN: ? 138 ?QRS: ?-19 QRSD: ? 120 [...] Note Carlos Alberto Reynolds MD - 02/16/2024 [facility] Test Date: 2024-02-15 Pat Name: BI SUE Department: Room: 305 Gender: Male Pipe Setter: BLANCA : 1940 Requested By: YURY NAYLOR Order Number: [id number] Reading MD: CARLOS ALBERTO REYNOLDS MD Measurements Intervals [place] Rate: 110 P: 77 MN: 138 QRS: -19 QRSD: 120 T: 84 [...] MD CARDIAC ECG ORDERABLES Final Res ult [facility] * (ABNORMAL) POCT BLOOD GAS, CG8 I-STAT (02/15/2024 15:20 EST) pH, Venous, i-STAT 7.24(L) 7.31 - 7.41 02/15/2024 15:24 [facility] pCO2, Venous, i-STAT 65(H) 41 - 51 mmHg 02/15/2024 15:24 [facility] pO2, Venous, i-STAT 30 30 - 50 mmHg 02/15/2024 15:24 [facility] TCO2, Venous, i-STAT 29(H) 22 - 28 mmol/L 02/15/2024 15:24 [facility] O2 Saturation, Venous, i-STAT 44(L) 60 - 85 % 02/15/2024 15:24 [facility] Hematocrit, Venous, i-STAT 48 40 - 50 % 02/15/2024 15:24 [facility] Base Excess(+) / Deficit(-), Venous, i-STAT 0 -2 - 3 mmol/L 02/15/2024 15:24 [facility] Blood VENOUS BLOOD / Unknown 02/15/2024 15:20 EST 02/15/2024 15:24 EST [facility] - 02/15/2024 15:24 EST Test Performed by Respiratory Krystian Anne MD POINT OF CARE TEST ORDERABLES Final Result [facility] [address] [place] [address] * (ABNORMAL) NT PRO BNP (02/15/2024 15:19 EST) NT-pro BNP 7,520(H) <326 pg/mL 02/15/2024 16:51 [facility] Comment: In the acute setting NT-proBNP values <300 pg/mL have a 98% NPV for excluding acute heart failure. In outpatient populations, NT-proBNP values <125 have a 99% NPV for excluding heart failure. Blood VENOUS BLOOD / Unknown Venipuncture / Unknown 02/15/2024 15:19 EST 02/15/2024 15:24 EST us Dominique Goldstein MD CHEMISTRY & BLOOD GAS ORDERABLES Final Result [facility] [address] [place] [address] * (ABNORMAL) COMPREHENSIVE METABOLIC PANEL (CMP) (02/15/2024 15:19 EST) Sodium 136 136 - 145 mmol/L 02/15/2024 16:40 [facility] Potassium 5.3(H) 3.5 - 5.0 mmol/L 02/15/2024 16:40 [facility] Comment:Slight hemolysis carson ntified, interpret with caution as hemolysis will elevate potassium result. Chloride 102 96 - 110 mmol/L 02/15/2024 16:40 [facility] CO2 Total 22 22 - 32 mmol/L 02/15/2024 16:40 [facility] Glucose 156(H) 70 - 99 mg/dl 02/15/2024 16:40 [facility] BUN 65(H) 10 - 26 mg/dL 02/15/2024 16:40 [facility] Comment: Slight hemolysis identified, interpret with caution as results may be affected due to hemolysis. Creatinine 2.50(H) 0.66 - 1.25 mg/dL 02/15/2024 16:40 [facility] eGFR 25(L) >60 mL/min/1.7 3m2 02/15/2024 16:40 [facility] Total Protein 5.5(L) 6.3 - 8.2 g/dL 02/15/2024 16:40 [facility] Comment:Slight hemolysis carson ntified, interpret with caution as results may be affected due to hemolysis. Albumin 3.1(L) 3.4 - 4.9 g/dL 02/15/2024 16:40 [facility] Comment:Slight hemolysis carson ntified, interpret with caution as results may be affected due to hemolysis. Alkaline Phosphatase 109 38 - 126 U/L 02/15/2024 16:40 [facility] Comment:Slight hemolysis carson ntified, hemolysis will decrease ALKP result. Interpret with caution as results may be affected due to hemolysis. AST 49(H) 15 - 46 U/L 02/15/2024 16:40 [facility] Comment:Slight hemolysis carson ntified, interpret with caution as results may be affected due to hemolysis. ALT 68(H) <50 U/L 02/15/2024 16:40 [facility] Bilirubin, Total 0.7 <1.4 mg/dL 02/15/20 16:40 [facility] Calcium 8.1(L) 8.5 - 10.5 mg/dL 02/15/2024 16:40 [facility] Albumin/Globulin Ratio 1.3 1.0 - 2.5 02/15/2024 16:40 [facility] Anion Gap 12 5 - 14 mmol/L 02/15/2024 16:40 [facility] Blood VENOUS BLOOD / Unknown Venipuncture / Unknown 02/15/2024 15:19 EST 02/15/2024 15:24 EST Dominique Goldstein MD CHEMISTRY & BLOOD GAS ORDERABLES Final Result Performing Organization Address City/State/[facility] Co de Phone Number [facility] [address] [place] [address] * (ABNORMAL) COMPLETE BLOOD COUNT AND DIFFERENTIAL (02/15/2024 15:19 EST) WBC 21.84(H) 4.00 - 10.40 K/cmm 02/15/2024 16:30 [facility] RBC 4.54 4.36 - 5.78 M/cmm 02/15/2024 16:30 [facility] Hemoglobin 14.5 13.8 - 17.3 g/dL 02/15/2024 16:30 [facility] HCT 44.8 39.5 - 50.2 % 02/15/2024 16:30 [facility] MCV 99(H) 81 - 95 fL 02/15/2024 16:30 [facility] MCH 31.9 27.6 - 33.0 pg 02/15/2024 16:30 [facility] MCHC 32.4(L) 32.8 - 36.4 g/dL 02/15/2024 16:30 [facility] RDW-CV 14.9(H) <14.2 % 02/15/2024 16:30 [facility] RDW-SD 54.5(H) <46.0 fl 02/15/2024 16:30 [facility] PLT 151 141 - 377 K/cmm 02/15/2024 16:30 [facility] MPV 11.6 9.5 - 12.7 fL 02/15/2024 16:30 [facility] % Neutrophils 89.3 Not Indicated % 02/15/2024 16:30 [facility] % Lymphocytes 3.1 Not Indicated % 02/15/2024 16:30 [facility] % Monocytes 6.6 Not Indicated % 02/15/2024 16:30 [facility] % Eosinophils 0.0 Not Indicated % 02/15/2024 16:30 [facility] % Basophils 0.2 Not Indicated % 02/15/2024 16:30 [facility] % Immature Grans 0.8 <0.9 % 02/15/2024 16:30 [facility] Absolute Neutrophils 19.49(H) 2.20 - 8.85 K/cmm 02/15/2024 16:30 [facility] Absolute Lymphocytes 0.67(L) 1.09 - 3.30 K/cmm 02/15/2024 16:30 [facility] Absolute Monocytes 1.45(H) 0.10 - 0.80 K/cmm 02/15/2024 16:30 [facility] Absolute Eosinophils 0.00(L) 0.03 - 0.61 K/cmm 02/15/2024 16:30 [facility] ABS Basophils 0.05 0.01 - 0.11 K/cmm 02/15/2024 16:30 [facility] Absolute Immature Grans 0.18(H) 0.00 - 0.06 K/cmm 02/15/2024 16:30 [facility] Type of Differential: Auto 02/15/2024 16:30 [facility] Blood VENOUS BLOOD / Unknown Venipuncture / Unknown 02/15/2024 15:19 EST 02/15/2024 15:25 EST us Dominique Goldstein MD PACKAGES & DNA PROBE ORDERABLES Final Result Performing Organization Address [facility]/ZIP Co de Phone Number [facility] [address] [place] [address] * HOLD LAVENDER TOP (02/15/2024 15:19 EST) Hold Hold 02/15/2024 16:31 [facility] Blood VENOUS BLOOD / Unknown Venipuncture / Unknown 02/15/2024 15:19 EST 02/15/2024 15:25 EST us Krystian Anne MD LAB INFO SERVICE AND SUPPORT & PHONE RESULT Final Result Performing Organization Address [facility] Co de Phone Number [facility] [address] [place] [address] * HOLD GREEN TOP (02/15/2024 15:19 EST) Hold Hold 02/15/2024 16:31 [facility] Blood VENOUS BLOOD / Unknown Venipuncture / Unknown 02/15/2024 15:19 EST 02/15/2024 15:25 EST us Krystian Anne MD LAB INFO SERVICE AND SUPPORT & PHONE RESULT Final Result Performing Organization Address City/[facility]/ZIP Co de Phone Number [facility] [address] [place] [address] * (ABNORMAL) CK (02/15/2024 15:19 EST) CK 272(H) <=250 U/L 02/15/2024 15:50 EST [facility] Blood VENOUS BLOOD / Unknown Venipuncture / Unknown 02/15/2024 15:19 EST 02/15/2024 15:24 EST Krystian Anne MD CHEMISTRY & BLOOD GAS ORDERAB LES Final Result [facility] [address] [place] [address] * SARS COV2, FLU A/B, RSV DETECT BY PCR (02/15/2024 15:13 EST) FLU A RNA Result (FLARES) Negative Negative 02/15/2024 16:22 [facility] FLU B RNA Result (FLBRES) Negative Negative 02/15/2024 16:22 [facility] RSV RNA Result (RSVRES) Negative Negative 02/15/2024 16:22 [facility] COVID-19 rt-PCR Result Negative Negative 02/15/2024 16:22 [facility] Comment: The 2019 novel coronavirus (SARS-CoV-2) target nucleic acids are not detected. Performed on the [email or web address] GeneXpert Instrument Swab NASOPHARYNGEAL STRUCTURE / Unknown Swab / Unknown 02/15/2024 15:13 EST 02/15/2024 15:18 EST Krystian Anne MD MICROBIOLOGY - GENERAL ORDERA BLES Final Result Performing Organization Address City/[facility]/ZIP Co de Phone Number [facility] [address] [place] [address] documented in this encounter Visit Diagnoses Diagnosis Closed right hip fracture, initial encounter ([facility] Primary Closed right hip fracture, initial encounter ([facility]) [S72.001A] Acute on chronic respiratory failure with hypoxia and hypercapnia ([facility]) [J96.21, J96.22] Pneumonia due to infectious organism, unspecified laterality, unspecified part of lung [J18.9] Heart failure, unspecified HF chronicity, unspecified heart failure type ([facility]) Pulmonary HTN ([facility]) Other chronic pulmonary heart diseases Pulmonary emphysema, unspecified emphysema type ([facility]) Acute on chronic respiratory failure with hypoxia and hypercapnia ([facility]) Pneumonia due to infectious organism Heart failure ([facility]) Heart failure, unspecified Pulmonary HTN ([facility]) Other chronic pulmonary heart diseases Pulmonary emphysema ([facility]) Other emphysema documented in this encounter Admitting Diagnoses Diagnosis Closed right hip fracture, initial encounter ([facility]) documented in this encounter Administered Medications [...] 24 HOURS, 5 doses, First dose on Avndana 02/15/24 at 1515, Last dose on Mon02/19/24 [...] Routine 1027 (Given - Provid er: Ramiro Mism RN) furosemide (LASIX) injection 40 mg (COMPLETED) [...] documented as of this encounter Care Teams Jelly Filter Tender Relationship Specialty Start Date End Date Suzie Villagomez MD [address] [place] [id number] PCP - General Family Medicine - Primary Care 02/15/24 documented as of this encounter
--- OUTSIDE RECORDS SUMMARY | 2024-04-01 21:03 | XMS_ITS | Encounter Summary ---
Author Organization [facility] Address [address] [place] [address] Care Team Providers Care Middleware Engineer Name Role Phone Suzie Quan MD Primary Care Provider [phone] Encounter Details Date Type Department Care Team (Late st Contact Info) Description 02/15/2024 Prep for Procedure [facility] Orthoped[facility] Sport Medicine [address] [place] [address] Buzz Freed MD [address] [facility] [address] [place] [address] Closed right hip fracture, initial encounter ([facility]) (Primary Dx) Social History Tobacco Use Types Packs/Day Years Used Date Smoking Tobacco: Former Cigarettes Alcohol Use Standard Drinks/Week Comments Never 0 (1 standard drink = 0.6 oz pur e alcohol) [facility] Utilities Answer Date Recorded In the past 12 months has e [employer], gas, oil, or water [employer] threatened to shut off services in your [...] EST Appointment [facility] Xray [address] [place] [address] 04/05/2024 10:30 EST Post-op Visit [facility] Orthopedic Trauma - [address] [address] Ko Marquis PA-C [address] [place] [phone] documented as of this encounter Visit Diagnoses Diagnosis Closed right hip fracture, initial encounter ([facility])- Primary documented in this encounter Additional Health Concerns Infection Onset Date Last Indicated Resolved Time R/O COVID-19 02/15/2024 02/15/2024 02/15/2024 16:2 2 EST documented as of this encounter Care Teams Middleware Engineer Relationship Specialty Start Date End Date Suzie Quan MD [address] [place] [address] PCP - General Family Medicine - Primary Care 02/15/24 documented as of this encounter
--- OUTSIDE RECORDS SUMMARY | 2024-04-01 21:03 | XMS_ITS | Encounter Summary ---
Author Organization [facility] Address [address] [place] [address] Care Team Providers Care Manager Solar Name Role Phone Suzie Quan MD Primary Care Provider [phone] Reason for Visit * Reason Onset Date Comments Follow-up 02/27/2024 Returning Call 03/13/2024 Encounter Details Date Type Department Care Team (Late st Contact Info) Description 02/27/2024 Telephone [facility] Endocrinology - [facility] [address] [place] [address] Farnaz Rivas, DO [address] [facility] [address] [place] [address] Follow-up; Returning Call Social History Tobacco Use Types Packs/Day Years Used Date Smoking Tobacco: Former Cigarettes Alcohol Use Standard Drinks/Week Comments Never 0 (1 standard drink = 0.6 oz pur e alcohol) [facility] Utilities Answer Date Recorded In the past 12 months has [employer], gas, oil, or water [employer] threatened to shut off services in your [...] any time in the past 12 m [facility], were you homeless or living in a correction (including now)? No 02/16/2024 [facility] - Inadequate Housing Answer Date Re corded What is your living situation today? I have a [facility] place to live 02/20/2024 Think about [...] office is returning the call to the [place]. Caller states they don't have follow-ups scheduled so they would like Dr. Rivas to review with the patient. Please call back if further information is needed. * Telephone Encounter - Ashley Rae MA - 02/28/2024 1532 EST Called PCP office back (Wilberto) Left message to return my call [phone]. Does PCP want us to follow up with patient or are they willing to do it * Telephone Encounter - Taqueria Hobbs - 02/27/2024 1142 EST Pcp office calling to speak with Ashley. Please contact wilberto at [phone] ext: [phone] documented in this encounter Plan of Treatment Upcoming Encounters Date Type Department Care Team (Late st Contact Info) Description 04/05/2024 10:15 EST Appointment [facility] Xray [address] [place] [address] 04/05/2024 10:30 EST Post-op Visit [facility] Orthopedic Trauma - [facility] [address] [place] [address] Ko Marquis PA-C [address] [place] [address] documented as of this encounter Visit Diagnoses Not on filedocumented in this encounter Care Teams Manager Solar Relationship Specialty Start Date End Date Suzie Quan MD [address] [place] [address] PCP - General Family Medicine - Primary Care 02/15/24 documented as of this encounter
--- OUTSIDE RECORDS SUMMARY | 2024-04-01 21:04 | XMS_ITS | Encounter Summary ---
Author Organization [facility] Address [address] [place] [address] Care Team Providers Care Sole Cutter Name Role Phone Suzie Quan MD Primary Care Provider Reason for Referral * (Routine/Next Available) - Receiving Office to Obtain Authorization Specialty Diagnoses / Procedures Referred By Contac t Referred To Contact Procedures XR OUTSIDE IMAGES CHEST Imaging, External Referral ID Status Reason Start Date Expiration Date Visits Requested Visits Authorized [id number] Receiving Office to Obtain Authorization 02/15/2024 1 1 Reason for Visit * (Routine/Next Available) - Receiving Office to Obtain Authorization Specialty Diagnoses / Procedures Referred By Contac t Referred To Contact Procedures XR OUTSIDE IMAGES CHEST Imaging, External Referral ID Status Reason Start Date Expiration Date Visits Requested Visits Authorized [id number] Receiving Office to Obtain Authorization 02/15/2024 1 1 Encounter Details Date Type Department Care Team (Latest Contact Info) Description 02/15/2024 10:58 EST - 02/15/2024 11:02 EST Hospital Encounter [facility] Secondary Reads [place] Discharge Disposition: Home or Self Care Social History Tobacco Use Types Packs/Day Years Used Date Smoking Tobacco: Former Cigarettes Alcohol Use Standard Drinks/Week Comments Never 0 (1 standard drink = 0.6 oz pur e alcohol) [facility] Utilities Answer Date Recorded In the [...] Info) Description 04/05/2024 10:15 EST Appointment [facility] Xray [address] [place] [address] 04/05/2024 10:30 EST Post-op Visit [facility] Orthopedic Trauma - [place] [address] [place] [address] Ko Marquis PA-C [address] [place] [address] documented as of this encounter [...] on filedocumented in this encounter Care Teams Sole Cutter Relationship Specialty Start Date End Date Suzie Quan MD [address] [place] [address] PCP - General Family Medicine - Primary Care 02/15/24 documented as of this encounter
--- OUTSIDE RECORDS SUMMARY | 2024-04-01 21:04 | XMS_ITS | Encounter Summary ---
Author Organization [facility] Address [address] [place] [address] Care Team Providers Care Clearing Inspector Name Role Phone Suzie Quan MD Primary Care Provider [phone] Reason for Referral * (Routine/Next Available) - Receiving Office to Obtain Authorization Specialty Diagnoses / Procedures Referred By Contac t Referred To Contact Procedures XR OUTSIDE IMAGES RIGHT LOWER EXTREMITY Imaging, External Referral ID Status Reason Start Date Expiration Date Visits Requested Visits Authorized [id number] Receiving Office to Obtain Authorization 02/15/2024 1 1 Reason for Visit * (Routine/Next Available) - Receiving Office to Obtain Authorization Specialty Diagnoses / Procedures Referred By Contac t Referred To Contact Procedures XR OUTSIDE IMAGES RIGHT LOWER EXTREMITY Imaging, External Referral ID Status Reason Start Date Expiration Date Visits Requested Visits Authorized [id number] Receiving Office to Obtain Authorization 02/15/2024 1 1 Encounter Details Date Type Department Care Team (Latest Contact Info) Description 02/15/2024 10:53 EST - 02/15/2024 10:55 EST Hospital Encounter [facility] Center Secondary Reads [place] Discharge Disposition: Home or Self Care Social History Tobacco Use Types Packs/Day Years Used Date Smoking Tobacco: Former Cigarettes Alcohol Use Standard Drinks/Week Comments Never 0 (1 standard drink = 0.6 oz pur e alcohol) [facility] Utilities Answer Date Recorded In the [...] Info) Description 04/05/2024 10:15 EST Appointment [facility] Xray [address] [facility] [place], [place] [id number] 04/05/2024 10:30 EST Post-op Visit [facility] Orthopedic Trauma - [place] [address] [place] [address] Ko Marquis PA-C [address] [place] [address] documented as of this encounter [...] on filedocumented in this encounter Care Teams Clearing Inspector Relationship Specialty Start Date End Date Suzie Quan MD [address] [place] [address] PCP - General Family Medicine - Primary Care 02/15/24 documented as of this encounter
--- OUTSIDE RECORDS SUMMARY | 2024-04-01 21:04 | XMS_ITS | Encounter Summary ---
Author Organization [facility] Address [address] [place] [address] Care Team Providers Care Core Filer Name Role Phone Suzie Quan MD Primary Care Provider [phone] Reason for Referral * (Routine/Next Available) - Receiving Office to Obtain Authorization Specialty Diagnoses / Procedures Referred By Contac t Referred To Contact Procedures XR OUTSIDE IMAGES PELVIS Imaging, External Referral ID Status Reason Start Date Expiration Date Visits Requested Visits Authorized [id number] Receiving Office to Obtain Authorization 02/15/2024 1 1 Reason for Visit * (Routine/Next Available) - Receiving Office to Obtain Authorization Specialty Diagnoses / Procedures Referred By Contac t Referred To Contact Procedures XR OUTSIDE IMAGES PELVIS Imaging, External Referral ID Status Reason Start Date Expiration Date Visits Requested Visits Authorized [id number] Receiving Office to Obtain Authorization 02/15/2024 1 1 Encounter Details Date Type Department Care Team (Latest Contact Info) Description 02/15/2024 10:56 EST - 02/15/2024 10:57 EST Hospital Encounter [facility] Secondary Reads [place] Discharge Disposition: Home or Self Care Social History Tobacco Use Types Packs/Day Years Used Date Smoking Tobacco: Former Cigarettes Alcohol Use Standard Drinks/Week Comments Never 0 (1 standard drink = 0.6 oz pur e alcohol) [facility] Utilities Answer Date Recorded In [...] Info) Description 04/05/2024 10:15 EST Appointment An [facility] Xray [address] [place] [address] 04/05/2024 10:30 EST Post-op Visit [facility] Orthopedic Trauma - [place] [address] [place] [address] Ko Marquis PA-C [address] [place] [address] documented as of this encounter [...] on filedocumented in this encounter Care Teams Core Filer Relationship Specialty Start Date End Date Suzie Quan MD [address] [place] [address] PCP - General Family Medicine - Primary Care 02/15/24 documented as of this encounter
--- OUTSIDE RECORDS SUMMARY | 2024-04-01 21:04 | XMS_ITS | Encounter Summary ---
Author Organization [facility] Address [address] [place] [address] Care Team Providers Care Clinical Applications Manager Name Role Phone Suzie Quan MD Primary Care Provider [phone] Reason for Referral * (Routine/Next Available) - Receiving Office to Obtain Authorization Specialty Diagnoses / Procedures Referred By Contac t Referred To Contact Procedures CT OUTSIDE IMAGES ABDOMEN PELVIS Imaging, External Referral ID Status Reason Start Date Expiration Date Visits Requested Visits Authorized [id number] Receiving Office to Obtain Authorization 02/15/2024 1 1 Reason for Visit * (Routine/Next Available) - Receiving Office to Obtain Authorization Specialty Diagnoses / Procedures Referred By Contac t Referred To Contact Procedures CT OUTSIDE IMAGES ABDOMEN PELVIS Imaging, External Referral ID Status Reason Start Date Expiration Date Visits Requested Visits Authorized [id number] Receiving Office to Obtain Authorization 02/15/2024 1 1 Encounter Details Date Type Department Care Team (Latest Contact Info) Description 02/15/2024 11:03 EST - 02/15/2024 13:49 EST Hospital Encounter [facility] Center Secondary Reads [place] Discharge Disposition: Home or Self Care Social History Tobacco Use Types Packs/Day Years Used Date Smoking Tobacco: Former Cigarettes Alcohol Use Standard Drinks/Week Comments Never 0 (1 standard drink = 0.6 oz pur e alcohol) [facility] Utilities Answer Date Recorded In the [...] time in the past 12 m [facility], were you homeless or living in a nursing home (including now)? No 02/16/2024 Interpersonal Safety [...] Entry Date Author No 02/15/2024 15:21 Maxwell oR RN documented in this encounter Medications at [...] 10:15 EST Appointment An [facility] Xray [address] [place] [id number] 04/05/2024 10:30 EST Post-op Visit [facility] Orthopedic Trauma - [place] [address] [place] [address] Ko Marquis PA-C [address] [place] [address] documented as of this encounter [...] on filedocumented in this encounter Care Teams Clinical Applications Manager Relationship Specialty Start Date End Date Suzie Quan MD [address] [place] [address] PCP - General Family Medicine - Primary Care 02/15/24 documented as of this encounter
--- NOTE | 2024-04-01 22:00 | NUR.NOTE ---
This advertising writer, assumed care of the patient from Lane Gavin RN at 1800. Bilateral lines and plan of care assessed with the off going nurse at the bedside with full understanding that sepsis protocol had been initiated, RT had been notified and was assessing pt with possible need for BiPap but pt initially declined measures, pt remained with difficult O2 assessment with mult areas assessed, pt with no increased WOB but spot O2 sats varied from 84-94 with poor pleth on 4L via n/c, babb placed with initial output of 400ml urine, sample obtained prior to 2nd abx, blood and urine cultures, base line labs and viral/ bacterial swabs were sent and antibiotics were in process, definitive care had not be determined as of hand off at 1800. pt's blood pressure remained hypotensive and fluid resuscitation was continued with marginal improvement. At 1900 Dr. Roque was called to the bedside to assess the patient and additional fluids were ordered. During the time the patient was in the care of the Emergency Department, the patient received a total of 3 liters of 0.9% Normal Saline along with 550ml of abx fluid. At 1900 a norepinephrine drip was initiated and ran concurrently with the third liter of normal saline. Norepinephrine was titrated aggressively for blood pressures with maps in the 30s and 40s and an absence of measurable urine output. 100 mg of hydrocortisone was given and Norepinephrine was titrated to a dose of 25mcg/kg/hr per recommendations of the provider. At this time MD was made aware of pt's mentation changes, and presence of muffled heart sounds, absent lung sounds and subjective complaints of feeling like he was going to black out MD was made aware and a vasopressin drip was ordered. Vasopressin was mixed and hung by this advertising writer and titrated to the starting dose of 0.04 units/hr. blood pressures continued to remain hypotensive. This advertising writer inquired about the initiation of an arterial line. MD stated, The insertion of an arterial line at this time was not likely in line with the patient's goals of care. Non invasive blood pressures were continued and patient was repositioned to optimize comfort and blood pressure. Report was given to A Lucho RN in the ICU with the understanding that patient stability had not been achieved. All questions had been answered to the best of this advertising writer's ability and this advertising writer brought the patient to the ICU on the both pressor medication. Patient's mentation continued to wain on transport to the ICU. Recommendations for further conversations of goals of care were given to both Night time Hospitalist ( Dr. Jaramillo) and Bed side nurse Caio Yepez RN. transfer of care to ICU was achieved at 2114.
--- NOTE | 2024-04-01 22:44 | EXPE_ITS ---
Date of service: 04/01/24 Time of Service: 22:44 Discharge Plan Disposition Patient Disposition: Discharge Details Reason For Visit: Septic shock with acute respiratory failure Admit Date/Time: 04/01/24 19:50 Admit Provider: Star Jaramillo Attending Provider: Star Jaramillo Primary Care Provider: [facility] Course Hospital Course: See detailed ED note and H&P. Patient shortly after being admitted to the ICU failing aggressive treatment of his septic shock and respiratory failure with pneumonia and CHRISTIANO. Discharge Data Cause of : Respiratory failure Discharge Sum: Prov Provider Primary care physician: Radha Archer NP Admitting clinician: Star Jaramillo Consults: None Discharge Sum: Diag PCOD Cause of : Respiratory failure Contributing Factors (1) Septic shock: (2) Acute on chronic respiratory failure with hypoxia and hypercapnia: (3) Left lower lobe pneumonia: (4) Acute UTI: (5) Elevated troponin level not due myocardial infarction: (6) Acute kidney injury: Discharge Sum: Summary Date and Time Admission Date: 04/01/24 Date of : 04/01/24 Time of : 21:45 Summary Details: See detailed H&P. Patient was admitted to ICU he was failing supportive care with 2 IV pressor agents and IV fluid resuscitation having had left lower lobe pneumonia with acute on chronic respiratory failure exacerbated over 5 days after being seen in the ED and not initiating treatment at the snf. He had complete cessation of respirations and pulse at 21:42 and was pronounced at 21:45. Additional Data Confirmation of as documented by pronouncing clinician: no pulse, no respirations, no heart sounds, pupils fixed and dilated and other (Cool, cyanotic extremities.) Family: contacted (Son, Noman who was on the first contact list.) Attending/PCP notified?: No Attending Physician: Radha Archer Was code activated?: No Autopsy requested?: No commercial title examiner notified?: Yes Organ bank notified?: Yes Advance directives: Yes Hospice patient?: No
--- NOTE | 2024-04-02 12:24 | NUR.NOTE ---
Nursing Note: The ED nursing who cared for this patient requested that I get into the chart to do a chart review as the charge in the ED. After looking through the chart, fluids/medications were documented appropriately, all ED assessments were documented appropriately per protocol. The lead nurse of this patient vocalized a decline that occurred in the patient while caring for him. There was nothing other than vitals that indicated a decline. This was vocalized to the nurse and she is going to look into it.
== END 2024-04-01 21:45 | disposition expired | DRG 871 ==
LOC: ER 19:29 → ICU 21:00
PROVIDERS: Admitting Provider Family Medicine; Emergency Provider Emergency Medicine; PCP Family Medicine; Visit Provider Family Medicine
DX: A41.9 Sepsis, unspecified organism (principal); J18.9 Pneumonia, unspecified organism; R65.21 Severe sepsis with septic shock; J96.21 Acute and chronic respiratory failure with hypoxia; J96.22 Acute and chronic respiratory failure with hypercapnia; N39.0 Urinary tract infection, site not specified; N17.9 Acute kidney failure, unspecified; J44.0 Chronic obstructive pulmonary disease with (acute) lower respiratory infection; Z79.01 Long term (current) use of anticoagulants; L89.152 Pressure ulcer of sacral region, stage 2; Z66 Do not resuscitate; R74.8 Abnormal levels of other serum enzymes; Z87.891 Personal history of nicotine dependence
CPT/HCPCS: 00123; 36415; 80048; 80053; 82805; 85027; 87040; 87637; 87641; 93005; 96361; 96365; 96368; 96375; 99291; 71045; 81003; 81015; 83605; 84484; 85025; 87086; 93010; 99223; J0692; J1720; J1815; J2598; J3370